=== PATIENT | female | born 1945 | race Caucasian/White ===

== ENCOUNTER → 2017-10-14 14:12 | Outpatient (CLI) | payer MEDICARE, SELFPAY ==
--- NOTE | 2017-10-14 14:20 | RAD_ITS ---
STUDY: X-RAY - ABDOMEN/PELVIS REASON FOR EXAM: Female, 72 years old. Left ureteral stone TECHNIQUE: Two AP supine views of the abdomen and pelvis. COMPARISON: None. FINDINGS: Normal visualized lung bases. There is an abundance of fecal material throughout the colon. There is no demonstrated free abdominal air. There are questionable small calcific densities in the renal shadows bilaterally. On the right measuring 8 mm and on the left, largest one measuring 6 mm. Normal soft tissue structures. There are diffuse degenerative changes of the visualized lumbar spine. RAD/Abdomen Single View IMPRESSION: Abundant fecal retention throughout the colon. Probable bilateral nephrolithiasis. Electronically Signed: Manuel Saleem DO at 10:44 EDT Tel , Service support ,
== END ==
PROVIDERS: Family Provider Internal Medicine; PCP Internal Medicine; Visit Provider Nurse Practitioner Adult Health
DX: N20.1 Calculus of ureter (principal)
CPT/HCPCS: 74018

== ENCOUNTER 2019-04-16 15:46 | Emergency (ER) | payer MEDICARE, SELFPAY ==
[2019-04-16 15:47] VITALS: BP 146/88; PULSE 84; RESP 18; TEMP 36.9; O2SAT 99; BMI 36.2
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
--- NOTE | 2019-04-16 16:18 | RAD_ITS ---
STUDY: X-RAY - RIGHT SHOULDER REASON FOR EXAM: Female, 73 years old. Pain TECHNIQUE: 3 view(s) of the shoulder. COMPARISON: None. FINDINGS: Evaluation is limited with no external rotation view of the shoulder are submitted. Views submitted demonstrate no definitive evidence of fracture or dislocation, however evaluation is incomplete. RAD/Shoulder min 2 Views IMPRESSION: Limited evaluation with no external rotation view submitted. Submitted views demonstrate no evidence of fracture or dislocation, however evaluation is incomplete. Recommend external rotation view for adequate assessment. Electronically Signed: Christian Causey, at 16:40 EDT Tel , Service support ,
== END 2019-04-16 16:46 | disposition home or self-care (01) ==
PROVIDERS: Emergency Provider Emergency Medicine; Family Provider Internal Medicine; PCP Internal Medicine
DX: M25.511 Pain in right shoulder (principal)
CPT/HCPCS: 73030; 99284

== ENCOUNTER 2019-05-31 10:02 | Day surgery (SDC) | payer MEDICARE, SELFPAY ==
[2019-05-31] VITALS (15 sets, daily range): BP systolic 95–116; BP diastolic 45–71; PULSE 66–90; RESP 16–18; TEMP 36.2–36.6; O2SAT 97–100; BMI 33.7
--- NOTE | 2019-05-31 07:43 | PCM.HP.BLA ---
History and Physical Date of Admission: 05/31/19 Beatriz Russell a 73 year old female who is a consultation requested by Maria Guadalupe Rabago APRN, for an opinion regarding SAMMY. My final recommendations will be communicated back to the requesting provider by way of shared Medical record. The patient has not been seen previously. The patient denies a family history of colon cancer. ? Component Latest Ref Rng & Units 02/15/2019 04/15/2019 Occult Blood, Stool Negative Negative Positive (A) ? Component Latest Ref Rng & Units 12/13/2016 02/04/2019 WBC 3.70 - 11.00 k/uL 4.92 5.69 RBC 3.90 - 5.20 m/uL 4.02 3.47 (L) Hemoglobin 11.5 - 15.5 g/dL 11.9 9.4 (L) Hematocrit 36.0 - 46.0 % 39.6 31.3 (L) MCV 80.0 - 100.0 fL 98.5 90.2 MCH 26.0 - 34.0 pG 29.6 27.1 MCHC 30.5 - 36.0 g/dL 30.1 (L) 30.0 (L) RDW-CV 11.5 - 15.0 % 13.5 14.6 Platelet Count 150 - 400 k/uL 202 227 MPV 9.0 - 12.7 fL 11.5 11.0 Absolute nRBC <0.01 k/uL 0.00 <0.01 ? Component Latest Ref Rng & Units 02/15/2019 Iron 41 - 186 ug/dL 48 TIBC 232 - 386 ug/dL 410 (H) Transferrin Saturation 15 - 57 % 12 (L) Ferritin 14.7 - 205.1 ng/mL 13.7 (L) ? The patient has a history of GERD and irritable bowel, as well a DM, hypothyroid, benign paroxysmal positional vertigo, depression and HLD. ? ? HPI: The patient presents today stating I just feel totally different than I did 6 months ago. I am tired all the time. Reports I knew it (the stool test) was positive because the sample was black and had slime in it. Having a bowel movement about every day and a half. She sometimes strains. Stools are solid formed, but not hard. ? Starting B12 injections now and taking iron. Reports that she takes ibuprofen after she falls. She will take 600 mg daily, when needed. ? Taking pantoprazole daily and denies any heartburn, indigestion or reflux. No stomach pain. No nausea. ? ? PAST MEDICAL HISTORY ? Benign paroxysmal positional vertigo 03/04/2012 ? Depressive disorder, not elsewhere classified 01/05/2007 ? Esophageal reflux ? ? Moderate sized HH on CT 2011 ? Goiter, unspecified ? ? Irritable bowel syndrome ? ? Mixed incontinence urge and stress (male)(female) 08/04/2008 ? Obesity, unspecified 01/05/2007 ? Osteoarthrosis, unspecified whether generalized or localized, unspecified site ? ? Other and unspecified hyperlipidemia 01/05/2007 ? Tinnitus 03/04/2012 ? Type II or unspecified type diabetes mellitus without mention of complication, not stated as uncontrolled ? ? Unspecified hemorrhoids without mention of complication ? ?? PAST SURGICAL HISTORY ? DELIVERY ONLY ? remote ? , ? PAST SURGICAL HISTORY OF ? ? 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 PAST SURGICAL HISTORY OF ? ? cystoscopy for renal stones ? REMOVAL GALLBLADDER ? ? Cholecystectomy open ? THYROIDECTOMY ? ? ? Partial thyroidectomy-for goiter no CA ? TOTAL KNEE REPLACEMENT ? ? Knee replacement, total left ? TOTAL KNEE REPLACEMENT ? ? Knee replacement, total right ? ? FAMILY HISTORY ? None Mother ? ? Lived to 89 years ? Macular Degen Mother ? ? Cataract Mother ? ? Cancer Father ? ? Lived to 89 years - ?bladder cancer ? Diabetes Sister ? ? Heart Maternal Grandfather ? ? Thyroid Sister ? ? hypothyroid ? Breast Cancer Maternal Aunt ? ? other (Retinitis Pigmentosa [Other]) Father ? ? Both Eyes ? Thyroid Mother ? ? ? CURRENT MEDICATIONS ? sitaGLIPtin (JANUVIA) 100 mg tablet Take 100 mg by mouth once daily. ? ? ? ferrous sulfate 325 mg (65 mg iron) tablet Take 1 tablet by mouth twice daily with meals. 60 tablet 2 ? docusate sodium (COLACE) 100 mg capsule Take 1 capsule by mouth twice daily as needed for Constipation (1-2 daily as needed for constipationw hile taking iron). 60 capsule 2 ? empagliflozin (JARDIANCE) 10 mg tablet Take 1 tablet by mouth daily with breakfast. (Patient not taking: Reported on 04/15/2019 ) 30 tablet 1 ? blood sugar diagnostic (BLOOD GLUCOSE TEST) test strip Test blood sugar(s) 2 times daily. Dx: Type 2 DM - Controlled E11.9 Insulin: No 100 Strip 11 ? glipiZIDE (GLUCOTROL XL) 10mg 24 hr tablet Take 2 tablets by mouth once daily. 60 tablet 5 ? atorvastatin (LIPITOR) 40 mg tablet Take 1 tablet by mouth every morning. 90 tablet 3 ? escitalopram oxalate (LEXAPRO) 10 mg tablet Take 1 tablet by mouth once daily. 90 tablet 3 ? levothyroxine (SYNTHROID) 50 mcg tablet Take 1 tablet by mouth once daily. 90 tablet 3 ? metFORMIN ER (GLUCOPHAGE XR) 500 mg 24 hr tablet Take 4 tablets by mouth once daily. 120 tablet 11 ? pantoprazole DR (PROTONIX) 40 mg tablet Take 1 tablet by mouth daily before breakfast. Take on empty stomach, 1/2 hr before meal. 90 tablet 3 ? escitalopram oxalate (LEXAPRO) 10 mg tablet Take 1 tablet by mouth once daily. 90 tablet 3 ? guaiFENesin (MUCINEX) 600 mg 12 hr tablet Take 1 tablet by mouth twice daily. (Patient not taking: Reported on 02/09/2019 ) ? ? ? melatonin 3 mg tablet Take 1 tablet by mouth daily at bedtime. Can increase to 2 tablets or 3 tablets if needed. (Patient not taking: Reported on 09/24/2018 ) 90 tablet 1 ? metFORMIN ER (GLUCOPHAGE XR) 500 mg 24 hr tablet Take 4 tablets by mouth once daily. 120 tablet 11 ? Lancets lancets Test blood sugar(s) 2 daily. Dx: E11.9 Insulin: No 100 Each 3 ? aspirin, enteric coated (ASPIRIN, ENTERIC COATED) 81 mg EC tablet Take 1 tablet by mouth once daily. (Considering starting; will stop if any GI adverse effects) ? ? ? COMPOUNDED PRESCRIPTION BLOOD PRESSURE CUFF FOR HOME USE. DX: R00.2, E11.65 1 Device 0 ? ? SOCIAL HISTORY: Patient is single. She has never smoked. Beatriz reports her alcohol use as never. ? ? REVIEW OF SYSTEMS: GENERAL: No weight loss, malaise or fevers HEENT: benign paroxymal positional vertigo RESPIRATORY: Negative for cough, hemoptysis, wheezing, COPD, dyspnea or shortness of breath CARDIOVASCULAR: HLD. No chest pain GI: As noted above STROKE PROGRAM COORDINATOR: Negative for abnormal vaginal bleeding, abnormal vaginal discharge. MUSCULOSKELETAL: Negative for joint pain or swelling, back pain or muscle pain. PSYCH: Positive for depression. HEMATOLOGY/LYMPHOLOGY Negative for prolonged bleeding, bruising easily or swollen nodes ENDOCRINE: Hypothyroid and Type 2 DM NEURO: No history of headaches, syncope, paralysis, seizures or tremors All other reviewed and negative other than HPI. PHYSICAL EXAMINATION: Blood pressure 111/70, pulse 116, height 149.9 cm (4' 11), weight 78.9 kg (174 lb). General Appearance: Well appearing, alert, in no acute distress, well-hydrated, well nourished. Skin: Skin color, texture, turgor normal, no suspicious rashes or lesions. Head: Normocephalic, no masses, lesions or abnormalities. Eyes: Anicteric sclera. Oropharynx: Dentures and Lips, mucosa, and tongue normal, oropharynx normal. Neck: Supple, no adenopathy; goiter. Lungs: lungs clear to auscultation. No wheezing, rhonchi, rales. Heart: RRR without murmur. Abdomen: Abdomen soft, non-tender. Bowel sounds normal. No masses, organomegaly. Extremities: No deformities, edema. Peripheral Pulses: Normal. Neurologic: Gait normal. Sensation grossly intact. ? ?Impression: iron deficiency anemia 2)melena prior to iron supplement ? ? Plan: The patient will be scheduled for an upper endoscopy as well as a colonoscopy. Preparation for the procedures, using GoLytely as the laxative, have been explained in detail. The risks, benefits, anticipated outcomes and possible complications were mentioned, including including failure to complete the endoscopy and perforation. I explained the procedure in understandable terms and the patient was given printed material concerning the planned procedure. The patient had the opportunity to ask questions concerning the planned procedure. The patient freely consents to the planned procedure. ИВАН documented in this encounter. I spent 30 minutes in the visit, with more than 50% of the total [id number] time of the visit in counseling / coordination of care. ? Stephanie Manuel RN LECTURER IN MARKETING.RECREATIONAL DIRECTOR
[2019-05-31] MEDS: Lactated Ringers 1,000 ML 75 ML IV (07:45)
[2019-05-31 11:36] LABS: Bedside Glucose 160 mg/dL (70-110)
--- NOTE | 2019-05-31 12:44 | EKG12_ITS ---
Test Reason : ARRYTH Blood Pressure : / mmHG Vent. Rate : 077 BPM Atrial Rate : 077 BPM P-R Int : 216 ms QRS Dur : 078 ms QT Int : 412 ms P-R-T Axes : 043 -47 056 degrees QTc Int : 466 ms Sinus rhythm with 1st degree A-V block Left axis deviation /LAHB Abnormal ECG When compared with ECG of 18-JAN-2002 08:32, UT interval has increased QRS axis Shifted left Minimal criteria for Anterior infarct are no longer Present Confirmed by HARIS BOLANOS ([id number]), book editor KE HOLLAND ([id number]) on 06/06/2019 10:41:21 AM Referred By: Cat Mayer Confirmed By:HARIS BOLANOS
--- NOTE | 2019-05-31 13:00 | EGD_PTH ---
PATIENT: STEVE VIEIRA LOC: EN U#:[id number] AGE/SX: 73/F ROOM: RE05/31/[address]: Dr. Cat Mayer MD : 1945 BED: DIS: 05/31/2019 SPEC #: [id number] RECD: 05/31/19 13:40 STATUS: JEANINE RECecy #: [id number] VONDA: 05/31/19 13:[address]: Cat Mayer DEPT: SURGICAL PATHOLOGY RECD BY: Roly Rocha ENTERED: 05/31/19 13:57 SP TYPE: EGD BIOPSY OTHR DR: Dr. Pavithra Presley MD Tissues: Gastric mucous membrane Procedures: Surgery Specimen Level IV HEADER OPERATION: Colonoscopy, EGD ([facility] [place]) PRE-OP DIAGNOSIS: Iron deficiency anemia; melena TISSUE SUBMITTED: Antrum for H. pylori and path MICROSCOPIC DIAGNOSIS Gastric antrum, biopsy: Mild chronic gastritis. See comment. AM:fredy 06/01/19 COMMENT The results of immunohistochemistry for Helicobacter pylori will be reported separately ([id number]). MICROSCOPIC DESCRIPTION Slides are reviewed. GROSS DESCRIPTION Received in fixative is one container labeled with the patient's name and designated antrum. The specimen consists of one irregular fragment of light delaney soft tissue that measures 0.3 x 0.2 x 0.1 cm. The specimen is totally submitted in one cassette. / SJ:fredy 05/31/19 TC:3 CPT: 54072
--- NOTE | 2019-05-31 13:00 | IMM_PTH ---
PATIENT: STEVE VIEIRA LOC: EN U#:[id number] AGE/SX: 73/F ROOM: RE05/31/[address]: Dr. Cat Mayer MD : 1945 BED: DIS: 05/31/2019 SPEC #: [id number] RECD: 05/31/19 14:31 STATUS: JEANINE REQ #: [id number] VONDA: 05/31/19 13:[address]: Cat Mayer DEPT: IMMUNOHISTOCHEMISTRY RECD BY: Agustina Moreno ENTERED: 05/31/19 14:31 SP TYPE: IMMUNO OTHR DR: Dr. Pavithra Presley MD Tissues: Stomach, NOS Procedures: H Pylori (initial) PHYSICIAN & INSTITUTION [place] [id number] SPECIMEN INFORMATION: Tissue Source: Antrum Clinical Info: Iron deficiency anemia; melena Specimen Number: [id number] CPT code: 85307 METHODOLOGY: Deparaffinized sections of prefer/formalin-fixed tissue or PAP/DQ stained slides are incubated with monoclonal/polyclonal antibodies/oligonucleotide probes. Localization is made via biotin free immunoperoxidase method. Appropriate controls are performed and reacted as expected. Results on target cell population are indicated in the following table: RESULTS: ANTIBODY / CLONE RESULT H Pylori (polyclonal) negative These tests were developed and their performance characteristics determined by [facility]. They may not have been cleared or approved by the U.S. Food and Drug Administration. The FDA has determined that such clearance or approval is not necessary. INTERPRETATION: Antrum biopsy: Negative for Helicobacter pylori organisms. AM:fredy 06/02/19
--- NOTE | 2019-05-31 13:02 | OP.EGD_ITS ---
Patient Name: Beatrzi Russell Procedure Date: 05/31/2019 12:13 PM Date of : 1945 Age: 73 Procedure: Upper GI endoscopy Indications: Unexplained iron deficiency anemia Providers: Cat Mayer MD Referring MD: Cat Mayer MD Medicines: See the Anesthesia note for documentation of the administered medications Patient Profile: Refer to note in patient chart for documentation of history and physical. Complications: No immediate complications. Procedure: Pre-Anesthesia Assessment: - see anesthesia note After obtaining informed consent, the endoscope was passed under direct vision. Throughout the procedure, the patient's blood pressure, pulse, and oxygen saturations were monitored continuously. The gastroscope was introduced through the mouth, and advanced to the second part of duodenum. The upper GI endoscopy was accomplished without difficulty. The patient tolerated the procedure well. Scope In: 12:32:19 PM Scope Out: 12:36:05 PM Total Procedure Duration Time 0 hours 3 minutes 46 seconds Findings: The first portion of the duodenum and second portion of the duodenum were normal. Striped mildly erythematous mucosa without bleeding was found in the gastric antrum. Biopsies were taken with a cold forceps for histology. Estimated blood loss was minimal. A small hiatal hernia was present. Impression: - Normal first portion of the duodenum and second portion of the duodenum. - Erythematous mucosa in the antrum. Biopsied. - Small hiatal hernia. Recommendation: - Discharge patient to home (ambulatory). - Resume previous diet. - Continue present medications. - Await pathology results. - My office will telephone with pathology results in 1-2 weeks Procedure Code(s): --- Professional --- 49482, Esophagogastroduodenoscopy, flexible, transoral; with biopsy, single or multiple Diagnosis Code(s): --- Professional --- K31.89, Other diseases of stomach and duodenum K44.9, Diaphragmatic hernia without obstruction or gangrene D50.9, Iron deficiency anemia, unspecified CPT copyright 2017 [employer]. All rights reserved. The codes documented in this report are preliminary and upon slide attendant review may be revised to meet current compliance requirements. MD Cat Chaudhary MD 05/31/2019 1:02:11 PM This report has been signed electronically. Number of Addenda: 0 Note Initiated On: 05/31/2019 12:13 PM
--- NOTE | 2019-05-31 13:05 | OP.COLON_ITS ---
Patient Name: Beatriz Russell Procedure Date: 05/31/2019 12:37 PM Date of : 1945 Age: 73 Procedure: Colonoscopy Indications: Melena, Unexplained iron deficiency anemia Providers: Cat Mayer MD Referring MD: Cat Mayer MD Medicines: See the Anesthesia note for documentation of the administered medications Patient Profile: Refer to note in patient chart for documentation of history and physical. Last Colonoscopy: date unknown. Complications: No immediate complications. Procedure: Pre-Anesthesia Assessment: - see anesthesia note After I obtained informed consent, the scope was passed under direct vision. Throughout the procedure, the patient's blood pressure, pulse, and oxygen saturations were monitored continuously. The Colonoscope was introduced through the anus and advanced to the cecum, identified by the appendiceal orifice, ileocecal valve and palpation. The colonoscopy was performed without difficulty. The patient tolerated the procedure well. The quality of the bowel preparation was adequate. Scope In: 12:41:16 PM Scope Withdrawal Time 0 hours 7 minutes 16 seconds Scope Out: 12:57:57 PM Total Procedure Duration Time 0 hours 16 minutes 41 seconds Findings: The perianal and digital rectal examinations were normal. Non-bleeding external and internal hemorrhoids were found. Impression: - Non-bleeding external and internal hemorrhoids. - No specimens collected. Recommendation: - Repeat colonoscopy in 10 years for screening purposes. - Return to primary care physician PRN. - Continue present medications. Procedure Code(s): --- Professional --- 65779, Colonoscopy, flexible; diagnostic, including collection of specimen(s) by brushing or washing, when performed (separate procedure) Diagnosis Code(s): --- Professional --- K64.8, Other hemorrhoids K92.1, Melena (includes Hematochezia) D50.9, Iron deficiency anemia, unspecified CPT copyright 2017 [place] [employer]. All rights reserved. The codes documented in this report are preliminary and upon marketing support assistant review may be revised to meet current compliance requirements. MD Cat Chaudhary MD 05/31/2019 1:04:56 PM This report has been signed electronically. Number of Addenda: 0 Note Initiated On: 05/31/2019 12:37 PM
[2019-05-31 13:33] LABS: Hematocrit 34.6 % (37-47); Hemoglobin 10.7 g/dL (12.0-15.0); Mean Corp Hgb Conc 30.9 g/dL (32-36); Mean Corpuscular Hgb 28.8 pg (27.0-32.0); Mean Platelet Vol. 10.5 fl (6.2-12.0); Platelet Count 149 K/mm3 (150-450); RBC Distribution Width CV 16.1 % (11.6-14.6); RBC Distribution Width SD 55.3 fl (35.1-43.9); Red Blood Count 3.72 M/mm3 (4.2-5.4); White Blood Count 4.3 K/mm3 (4.4-11.0)
[2019-05-31 13:46] LABS: Anion Gap 10 (5-15); BUN 24 mg/dL (7-18); BUN/Creat Ratio 28.1 RATIO (10-20); Calcium,Total 8.8 mg/dL (8.5-10.1); Chloride 109 mmol/L (98-107); Creatinine, Serum 0.86 mg/dL (0.55-1.02); EST Glomerular Filtration Rate 69 mL/min (>60); Est Glom Filt Rate - Afr Amer 83 mL/min (>60); Glucose 119 mg/dL (74-106); Potassium 3.8 mmol/L (3.5-5.1); Sodium Level 141 mmol/L (136-145)
[2019-05-31 13:54] LABS: Magnesium 2.1 mg/dL (1.6-2.6)
== END 2019-05-31 14:42 | disposition home or self-care (01) ==
LOC: EN 10:05 → AC 10:17
PROVIDERS: Anesthesiology; Family Provider Internal Medicine; PCP Internal Medicine; Referring Provider Surgery; Visit Provider Surgery
PROC: 0DJD8ZZ Inspection of Lower Intestinal Tract, Via Natural or Artificial Opening Endoscopic (ICD-10-PCS; CPT 45378; principal; 2019-05-31 12:55)
DX: K29.50 Unspecified chronic gastritis without bleeding (principal); K44.9 Diaphragmatic hernia without obstruction or gangrene; K64.9 Unspecified hemorrhoids; D50.9 Iron deficiency anemia, unspecified; Z79.899 Other long term (current) drug therapy; K21.9 Gastro-esophageal reflux disease without esophagitis; K58.9 Irritable bowel syndrome, unspecified; E11.9 Type 2 diabetes mellitus without complications; E03.9 Hypothyroidism, unspecified; E66.9 Obesity, unspecified; H81.10 Benign paroxysmal vertigo, unspecified ear; F32.9 Major depressive disorder, single episode, unspecified; E78.5 Hyperlipidemia, unspecified; N39.46 Mixed incontinence; Z79.84 Long term (current) use of oral hypoglycemic drugs; Z79.82 Long term (current) use of aspirin
CPT/HCPCS: 43239; 45378; 36415; 80048; 82962; 83735; 84484; 85027; 88305; 88342; 93005; J7120

== ENCOUNTER 2022-08-07 13:10 | Emergency (ER) | payer MEDICARE, SELFPAY ==
[2022-08-07 13:10] VITALS: BP 153/91; PULSE 91; RESP 16; TEMP 36.2; O2SAT 97; BMI 29.2
--- NOTE | 2022-08-07 14:50 | ED.RN ---
PT NOT IN WAITING ROOM, UNABLE TO LOCATE IN DEPARTMENT. PT HAD PREVIOUS STATED SHE WAS GOING TO WALK HOME, I JUST LIVE A COUPLE BLOCKS AWAY. PT STATED SHE DID NOT WANT TO BE EVALUATED IN ED, I'M FINE. PT AMBULATING IN TRIAGE AREA WITHOUT DIFFICULTY. PT HAD AGREED TO WAIT AND BE EVALUATED BY ED MD AFTER MUCH ENCOURAGEMENT BY THIS RN.
== END 2022-08-07 14:30 | disposition left against medical advice (07) ==
LOC: ED 14:56
PROVIDERS: PCP Internal Medicine
DX: Z53.21 Procedure and treatment not carried out due to patient leaving prior to being seen by health care provider (principal)

== ENCOUNTER 2022-09-21 14:23 | Emergency (ER) | payer MEDICARE, SELFPAY ==
[2022-09-21 14:24] VITALS: BP 118/62; PULSE 88; RESP 18; TEMP 36.6; O2SAT 99; BMI 30.1
[2022-09-21 14:33] VITALS: O2SAT 98
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
[2022-09-21] MEDS: Acetaminophen 500 MG Tablet 1000 MG PO (14:53)
[2022-09-21] MEDS: Diphth,Pertuss(Acell),Tet Vac 0.5 ML Vial IM (14:54)
[2022-09-21 17:26] VITALS: RESP 18
== END 2022-09-21 17:27 | disposition home or self-care (01) ==
PROVIDERS: Emergency Provider Emergency Medicine; PCP Internal Medicine; Visit Provider Emergency Medicine
DX: S00.83XA Contusion of other part of head, initial encounter (principal); S00.31XA Abrasion of nose, initial encounter; W18.39XA Other fall on same level, initial encounter; Y93.01 Activity, walking, marching and hiking; Y99.8 Other external cause status; Y92.512 Supermarket, store or market as the place of occurrence of the external cause
CPT/HCPCS: 99284; 96372; 70450; 90715

== ENCOUNTER 2022-09-21 18:38 | Emergency (ER) | payer MEDICARE, SELFPAY ==
[2022-09-21 18:39] VITALS: BP 127/67; PULSE 115; RESP 18; TEMP 35.5; O2SAT 98; BMI 29.9
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
--- NOTE | 2022-09-21 19:01 | MRI_ITS ---
STUDY: MRI BRAIN WITHOUT CONTRAST REASON FOR EXAM: Female, 77 years old[address] head injury. Ct brain was inconclusive. TECHNIQUE: Standardized multiplanar fat and water weighted pulse sequences were obtained. COMPARISON: CT brain from today. FINDINGS: Subcutaneous hematoma right forehead. There is mild cerebral atrophy with widening of the extra-axial spaces and ventricular dilatation. There are multiple white matter hyperintensities, distributed throughout the deep white matter tracts of the cerebral hemispheres, consistent with moderate chronic white matter ischemic changes. There is no evidence for recent intracranial ischemia or other cause of cytotoxic edema on diffusion weighted imaging (DWI). Normal bilateral basal ganglia. Normal thalami. There is no extra-axial fluid accumulation. Normal flow voids within the major intracranial circulation suggesting patency by spin echo criteria. Normal sella turcica, pituitary gland, infundibular stalk, optic chiasm and hypothalamus. Normal tectal plate and pineal gland. Normal midbrain, leatha and medulla. Normal cerebellum. Normal basal cisterns. Normal bilateral temporal bones. Normal bilateral internal auditory canals. No demonstrated orbital abnormality, within the constraints of a routine brain study. Normal visualized paranasal sinuses. Normal calvarium and skull base. Normal visualized soft tissue structures. Normal visualized upper cervical spine. MRI/Brain without Contrast IMPRESSION: Normal unenhanced MRI of the brain. Suspected Right frontal hemorrhagic contusion on CT is not confirmed. Electronically Signed: Christopher Stroud MD at 22:09 EDT ,
[2022-09-21] MEDS: Acetaminophen 500 MG Tablet PO (19:07)
[2022-09-21 22:26] VITALS: RESP 18
== END 2022-09-21 22:27 | disposition home or self-care (01) ==
PROVIDERS: Emergency Provider Emergency Medicine; PCP Internal Medicine; Visit Provider Emergency Medicine
DX: S00.81XA Abrasion of other part of head, initial encounter (principal); S00.83XA Contusion of other part of head, initial encounter; W18.39XA Other fall on same level, initial encounter; Y93.01 Activity, walking, marching and hiking; Y99.8 Other external cause status; Y92.512 Supermarket, store or market as the place of occurrence of the external cause
CPT/HCPCS: 70450; 70551; 90715; 96372; 99283; 99284

== ENCOUNTER 2023-08-09 11:13 | Inpatient (IN) | payer MEDICARE, SELFPAY ==
[2023-08-09] VITALS (9 sets, daily range): BP systolic 91–124; BP diastolic 47–77; PULSE 76–97; RESP 16–18; TEMP 36–36.9; O2SAT 96–99; BMI 26.4; BMI 26.2
--- NOTE | 2023-08-09 11:50 | CT_ITS ---
EXAM: CT HEAD WITHOUT INTRAVENOUS CONTRAST CLINICAL INDICATION: head injury TECHNIQUE: Multiple axial images were obtained of the head without intravenous contrast. This CT exam was performed using one or more of the following dose reduction techniques: automated exposure control, adjustment of the mA and/or kV according to patient size, and/or use of iterative reconstruction technique. RADIATION DOSE: CTDIvol = 44.99 mGy, DLP = 812.98 mGy-cm COMPARISON: CT head without contrast 09/21/2022. FINDINGS: BRAIN AND EXTRA-AXIAL SPACES: Hypodensities in the white matter of both cerebral hemispheres are chronic white matter ischemic changes. No intra- or extra-axial hemorrhage. No intracranial mass or mass effect. Posterior fossa structures are unremarkable. Ventricles are appropriate for age. No hydrocephalus. Basal cisterns are patent. BONES/JOINTS: Unremarkable. No discrete lytic or blastic abnormalities. SINUSES: Unremarkable as visualized. Clear. MASTOID AIR CELLS: Unremarkable. Clear. ORBITS: Visualized globes, extraocular muscles, optic nerves and retrobulbar fat appear unremarkable. CT/Brain/Head without Contrast IMPRESSION: 1. No CT evidence of intracranial bleeding, acute ischemic infarct or acute intracranial abnormality. 2. Chronic white matter changes in both cerebral hemispheres. 3. Interval resolution of small right frontal skull soft tissue scalp hematoma or compared to 09/21/2022. Electronically Signed: Hai Cardenas MD at 13:03 EST ,
--- NOTE | 2023-08-09 11:51 | EDS_ITS ---
HPI <PANKAJ Harris - Last Filed: 08/09/23 14:00> History of Present Illness Chief Complaint: Weakness Narrative Narrative: Patient is an 78-year-old female with history of diabetes Hypothyroidism however states is not taking her medication as prescribed presenting to the emergency department for failure to thrive. Patient was brought in by ambulance, on the ambulance form, does show that the patient has poor living conditions. I spoke with the patient, patient states for the last 6 days, she has been feeling wonky . Patient states that she is just confused, she is having trouble getting around. Patient looks disheveled, patient is wet, states that she does not change her diaper like she is supposed to. Patient denies any fever or chills. Patient states that she is hungry and thirsty. [facility] <PANKAJ Harris - Last Filed: 08/09/23 14:00> [facility] Medical History Head injury Home Medications glipizide 5 mg tablet 20 mg PO DINNER 06/07/14 [History Last Taken Unknown] levothyroxine 50 mcg tablet 50 mcg PO DAILY 06/07/14 [History Last Taken Unknown] metformin 500 mg tablet,extended release 24 hr 2,000 mg PO BREAKFAST 06/07/14 [History Last Taken Unknown] pantoprazole 40 mg tablet,delayed release 40 mg PO BREAKFAST 06/07/14 [History Last Taken Unknown] aspirin 81 mg tablet,delayed release 81 mg PO DAILY@0800 05/28/19 [History Last Taken Unknown] atorvastatin 40 mg tablet 40 mg PO QHS 05/28/19 [History Last Taken Unknown] empagliflozin 10 mg tablet 10 mg PO DAILY 05/28/19 [History Last Taken Unknown] escitalopram oxalate 10 mg tablet 10 mg PO DAILY 05/28/19 [History Last Taken Unknown] ferrous gluconate 236 mg (27 mg iron) tablet 65 mg PO BID 05/28/19 [History Last Taken Unknown] Allergy/AdvReac Type Severity Reaction Status Date / Time venlafaxine HCl Allergy Rash Verified 08/09/23 11:14 [From Effexor] meclizine AdvReac Other Verified 08/09/23 11:14 Surgical History H/O: section History of cholecystectomy History of knee joint replacement Social History Smoking Status: Never smoker ROS <PANKAJ Harris - Last Filed: 08/09/23 14:00> ROS ED ROS Narrative Constitutional: No fever, no chills. Positive generalized weakness HEENT: No sore throat. No neck pain. No loss of vision. No rhinorrhea. Positive for excessive thirst Cardiovascular: No chest pain. No palpitations. No pedal edema. Respiratory: No cough, no shortness of breath. Abdominal: No abdominal pain. No nausea. No vomiting. Genitourinary: No dysuria. No hematuria. Musculoskeletal: No myalgias. No arthralgias. Neurologic: No headaches. No dizziness. No lightheadedness. Skin: No rash. No change in color. Psychiatric: No depression. No anxiety. EXAM <PANKAJ Harris - Last Filed: 08/09/23 14:00> Physical Exam Narrative Exam Narrative: On my initial evaluation, the patient is poorly unkempt, patient smells of stale urine. Patient is alert and orient x 3. Patient states she is extremely thirsty and hungry. She does state that the house that she is living in is not very clean. She does know that she does not change her briefs often enough, she knows that she is wet. Patient does have some strangers coming and going through her house. Patient does have an abrasion to the left forehead however states that she does not remember falling. Afebrile. Vital signs noted. HEENT: Normocephalic. Atraumatic. PERRL, EOMI. Neck soft and supple. No point tenderness or step off. Pupils are equal round reactive to light. Patient does have abrasion to the forehead. Cardiovascular: Regular rate and rhythm. No murmurs, rubs, or gallops appreciated. Respiratory: No tachypnea. Lungs clear to auscultation bilaterally. Gastrointestinal: Abdomen soft, nontender, with normoactive bowel sounds. No rebound or guarding. Neurological: Awake. Alert. Nonfocal, nonlateralizing. Skin: No rash. Normal color. No pallor. Musculoskeletal: No pedal edema. Full range of motion extremities. Const Vital Signs: 08/09/23 11:14 08/09/23 11:16 08/09/23 13:36 Temperature 96.8 F L Temperature Source Temporal Pulse Rate 89 76 Respiratory Rate 18 16 Respiratory Effort Normal Respiratory Pattern Normal Blood Pressure 117/64 115/65 Blood Pressure Mean 81 81 Pulse Ox 96 99 Oxygen Delivery Method Room Air Room Air Positive unkempt General Appearance ED: unkempt Psych Appearance: unkempt <Dr. Santos Mckeon MD - Last Filed: 08/09/23 13:32> Physical Exam Const Vital Signs: 08/09/23 11:14 08/09/23 11:16 08/09/23 13:36 Temperature 96.8 F L Temperature Source Temporal Pulse Rate 89 76 Respiratory Rate 18 16 Respiratory Effort Normal Respiratory Pattern Normal Blood Pressure 117/64 115/65 Blood Pressure Mean 81 81 Pulse Ox 96 99 Oxygen Delivery Method Room Air Room Air MDM <PANKAJ Harris - Last Filed: 08/09/23 14:00> MDM Lab Data Labs: Laboratory Results - last 24 hr 08/09/23 08/09/23 11:25 12:05 WBC 8.7 RBC 3.77 L Hgb 8.6 L Hct 30.4 L MCV 80.6 L MCH 22.8 L MCHC 28.3 L RDW Std Deviation 51.1 H RDW Coeff of Nicholas 18.1 H Plt Count 221 MPV 11.7 Immature Gran % (Auto) 0.800 Neut % (Auto) 76.1 H Lymph % (Auto) 14.9 L [place] % (Auto) 6.6 Eos % (Auto) 0.9 Baso % (Auto) 0.7 Absolute Neuts (auto) 6.6 Absolute Lymphs (auto) 1.29 Nucleated RBC % 0 Sodium 133 L Potassium 4.0 Chloride 97 L Carbon Dioxide 25.0 Anion Gap 11 BUN 17 Creatinine 0.76 Est GFR (MDRD) Af Amer 94 Est GFR (MDRD) Non-Af 78 BUN/Creatinine Ratio 22.3 H Glucose 386 H Calcium 9.3 Total Bilirubin 0.90 AST 53 H ALT 42 Alkaline Phosphatase 186 H Total Creatine Kinase 42 Total Protein 7.4 Albumin 3.3 Globulin 4.1 Albumin/Globulin Ratio 0.8 L TSH 4.30 H Urine Color Yellow Urine Clarity Clear Urine pH 5.0 Ur Specific [place] 1.015 Urine Protein 15 H Urine Glucose (UA) 1000 H Urine Ketones 150 A* Urine Occult Blood 10 H Urine Nitrite Negative Urine Bilirubin Negative Urine Urobilinogen Normal Ur Leukocyte Esterase Negative Urine RBC 0 SEEN Urine WBC 0 SEEN Ur Squamous Epith Cells 0 SEEN Urine Bacteria 0 SEEN Urine Mucus 0 SEEN Radiography Diagnostic Testing: Clinical Impression(s) from Imaging Studies Brain CT 08/09/23 11:50 IMPRESSION: 1. No CT evidence of intracranial bleeding, acute ischemic infarct or acute intracranial abnormality. 2. Chronic white matter changes in both cerebral hemispheres. 3. Interval resolution of small right frontal skull soft tissue scalp hematoma or compared to 09/21/2022. Electronically Signed: Hai Cardenas MD at 13:03 EST , Chest X-Ray 08/09/23 12:30 IMPRESSION: No radiographic evidence of acute cardiopulmonary disease. Electronically Signed: Hai Cardenas MD at 12:41 EST , EKG EKG shows normal sinus rhythm: Attestation: I personally reviewed and interpreted this EKG as follows: Interpretation: Sinus Rhythm Comments: Sinus rhythm, rate of 72 bpm, NV 190 ms, QRS duration 78 ms, no acute ST elevation, no acute infarct noted Treatment and Re-Evaluation :: Patient appears to be unkempt, vital signs are stable, patient appears to be in no respiratory distress. Patient presents to the emergency department for failure to thrive, I do believe that social work should be included in her care. Differential diagnosis includes failure to thrive, multiple falls, UTI, elevated blood sugar. Upon my initial evaluation, the patient might benefit from admission for social standpoint however the patient does smell of strong urine, patient's blood sugar is elevated. Patient is slightly confused however she does answer questions appropriately. Patient received a chest x-ray as well as CT scan of the brain to rule out any intracranial bleeding, pneumonia. Basic laboratory values looking for any leukocytosis, anemia, electrolyte abnormality, dehydration. Patient received IV fluids. She was given 1 glass of water. She will be reevaluated. The radiology exams ordered for this patient will be read by the emergency department attending. From these reads a plan of care will be put into place. Patient's brain CT shows no evidence of any intracranial bleeding or acute process. Patient's chest x-ray showed no radiographic evidence of acute cardiopulmonary disease. Patient's laboratory values showed some anemia with a hemoglobin 8.6, the last hemoglobin completed was in May 2019 when it was 10.7, patient looks to be chronically anemic. Patient's sodium was 133 slightly low. Creatinine was unremarkable. Patient's blood glucose was 386, this is secondary to patient not taking her medication. Alkaline phosphatase was elevated 186, TSH was 4.30, this again is because she is not taking her medication. Urinalysis was positive for ketones however negative for any infection. At this time, secondary to patient's poor living conditions, inability to care for self, the patient unkempt appearance, I do believe the patient would benefit from admission to the hospital and social work admit. I will speak to the hospitalist. Patient stable for admission. <Dr. Santos Mckeon MD - Last Filed: 08/09/23 13:32> [facility] MDM Narrative Medical decision making narrative: I have personally performed a face to face assessment of the patient and have reviewed the SHADIA Note. I performed a substantive portion of the visit including all aspects of the following. My rob findings include: History is 78-year-old female who is alone at home. Son: Recent squad for well check Arrived home. And her conditions were very poor. The concern is she is not able to take care of herself, has not been eating well and has not been taking her medications as prescribed. States that she has had some nausea and vomiting. Patient does have a history of diabetes. Exam is [78-year-old female vital signs are stable. Afebrile. She does not look septic toxic. HEENT exam dry mucous membranes. Pupils round reactive light. No trauma. Neck nontender. Lungs clear to auscultation. Heart regular rhythm no murmur rate about 90. Chest wall nontender. Abdomen soft nontender. Back nontender. Moving all 4 extremities. Her nails are overgrown and poorly cared for. She has dirt and hair on her feet from the ground. Neurologically she is awake and alert. Answer questions following commands. Moving all 4 extremities. She has pale skin consistent with anemia.] Medical Decision Making [elderly female with acute on chronic anemia with mild dehydration and elevated blood sugar with a history of diabetes. She will need admitted for failure to thrive. She is receiving IV fluids here. Will speak to the hospitalist about admission.] Other additions or changes: [None] History & Record Review Discussion w/independent historian: Patient Additional record(s) reviewed:: Prior inpatient record, Prior outpatient record, Prior ED visit, Prior labs and No prior records Lab Data Attestation: I reviewed the patient's lab results. Lab results narrative: CBC white count 8.7. H&H 8.6 and 30. Platelets 221. Sodium 133. Gap 11. BUN/creatinine 17 and 0.7. Glucose 386. Liver enzymes alk phos 186. TSH is elevated at 4.3. UA no infection but ketones. UA negative. Ketones. Consistent with dehydration. Chest x-ray chronic. CT brain chronic changes. Labs: Laboratory Results - last 24 hr 08/09/23 08/09/23 11:25 12:05 WBC 8.7 RBC 3.77 L Hgb 8.6 L Hct 30.4 L MCV 80.6 L MCH 22.8 L MCHC 28.3 L RDW Std Deviation 51.1 H RDW Coeff of Nicholas 18.1 H Plt Count 221 MPV 11.7 Immature Gran % (Auto) 0.800 Neut % (Auto) 76.1 H Lymph % (Auto) 14.9 L [place] % (Auto) 6.6 Eos % (Auto) 0.9 Baso % (Auto) 0.7 Absolute Neuts (auto) 6.6 Absolute Lymphs (auto) 1.29 Nucleated RBC % 0 Sodium 133 L Potassium 4.0 Chloride 97 L Carbon Dioxide 25.0 Anion Gap 11 BUN 17 Creatinine 0.76 Est GFR (MDRD) Af Amer 94 Est GFR (MDRD) Non-Af 78 BUN/Creatinine Ratio 22.3 H Glucose 386 H Calcium 9.3 Total Bilirubin 0.90 AST 53 H ALT 42 Alkaline Phosphatase 186 H Total Creatine Kinase 42 Total Protein 7.4 Albumin 3.3 Globulin 4.1 Albumin/Globulin Ratio 0.8 L TSH 4.30 H Urine Color Yellow Urine Clarity Clear Urine pH 5.0 Ur Specific [place] 1.015 Urine Protein 15 H Urine Glucose (UA) 1000 H Urine Ketones 150 A* Urine Occult Blood 10 H Urine Nitrite Negative Urine Bilirubin Negative Urine Urobilinogen Normal Ur Leukocyte Esterase Negative Urine RBC 0 SEEN Urine WBC 0 SEEN Ur Squamous Epith Cells 0 SEEN Urine Bacteria 0 SEEN Urine Mucus 0 SEEN Radiography Diagnostic Testing: Clinical Impression(s) from Imaging Studies Brain CT 08/09/23 11:50 IMPRESSION: 1. No CT evidence of intracranial bleeding, acute ischemic infarct or acute intracranial abnormality. 2. Chronic white matter changes in both cerebral hemispheres. 3. Interval resolution of small right frontal skull soft tissue scalp hematoma or compared to 09/21/2022. Electronically Signed: Hai Cardenas MD at 13:03 EST , Chest X-Ray 08/09/23 12:30 IMPRESSION: No radiographic evidence of acute cardiopulmonary disease. Electronically Signed: Hai Cardenas MD at 12:41 EST , Discharge Plan Dx/Rx/DC Orders Clinical Impression: Acute dehydration, Hyperglycemia due to diabetes mellitus, Adult failure to thrive, Chronic anemia Disposition Disposition: [facility]
[2023-08-09 12:13] LABS: Bacteria 0 SEEN /hpf (None Seen); Mucous, Urine 0 SEEN /hpf (<or=2+); Red Blood Cells-Urine 0 SEEN /hpf (0-5); Squamous Epithelial Cells - UA 0 SEEN /hpf (5-10); White Blood Cells 0 SEEN /hpf (0-5)
[2023-08-09 12:15] LABS: Absolute Lymphocyte Count 1.29 X10^3/uL (0.83-4.51); Absolute Neutrophil Count 6.6 X10^3/uL (2.0-7.7); Basophil# 0.06 X10^3/uL; Basophil% 0.7 % (0-1); Eosinophil# 0.08 X10^3/uL; Eosinophils% 0.9 % (0-5); Hematocrit 30.4 % (37-47); Hemoglobin 8.6 g/dL (12.0-15.0); Lymphocyte # 1.29 X10^3/ul (0.83-4.51); Lymphocyte % 14.9 % (19-41); Mean Corp Hgb Conc 28.3 g/dL (32-36); Mean Corpuscular Hgb 22.8 pg (27.0-32.0); Mean Corpuscular Volume 80.6 fL (81-99); Mean Platelet Vol. 11.7 fl (6.2-12.0); Monocyte# 0.57 X10^3/uL; Monocyte% 6.6 % (0-10); NRBC Flagged by Analyzer 0 % (0-5); Neutrophil # 6.59 X10^3/uL (2.7-7.7); Neutrophil % 76.1 % (47-70); Platelet Count 221 K/mm3 (150-450); RBC Distribution Width CV 18.1 % (11.6-14.6); RBC Distribution Width SD 51.1 fl (35.1-43.9); Red Blood Count 3.77 M/mm3 (4.2-5.4); White Blood Count 8.7 K/mm3 (4.4-11.0)
[2023-08-09] MEDS: 0.9% Normal Saline (1000mL) 1,000 ML 1000 ML IV (12:20)
--- OUTSIDE RECORDS SUMMARY | 2023-08-09 12:25 | XMS RPT_ITS | CCD ---
Author Name Unknown Address [address] [facility] [address] [place] [address] Organization [facility] Care Team Providers Care Customer Service Supervisor Name Role Phone Peter Presley MD Primary Care Provider [facility], Keti Unavailable Peter Presley MD Primary Care Provider Peter Presley MD Primary Care Provider [facility]ly [facility], Melony Unavailable TALAMPAS, PETER D Primary Care Unavailable TALAMPAS, PETER D Primary Care Unavailable TALAMPAS, PETER D Referring Unavailable TALAMPAS, PETER D Attending Unavailable TALAMPAS, PETER D Primary Care Unavailable TALAMPAS, PETER D Referring Unavailable TALAMPAS, PETER D Primary Care Unavailable TALAMPAS, PETER D Primary Care Unavailable Allergies Allergy Classification Reported Allergen(s) Allergy Type Date of Onset Reaction(s) Facility (18 sources) Contrast media; Translations: [CONTRAST DYE] Drug Intolerance 4 GI Upset [facility] Work Phone: (18 sources) FLUoxetine; Translations: [FLUOXETINE] Drug Allergy 9 Intolerance [facility] Work Phone: (18 sources) Meclizine; Translations: [MECLIZINE] Drug Allergy 4 Mental Status Change, Other: See Comments [facility] Work Phone: (18 sources) venlafaxine; Translations: [VENLAFAXINE HCL] Drug Allergy 9 Rash [facility] Medications Current Medications Medication Drug Class(es) Dates Sig (Normalized) Sig (Original) benoxinate hydrochloride 4 mg/ml / fluorescein sodium 2.5 mg/ml ophthalmic solution (1 source) Diagnostic Dye Start: 01-09-2022 End: 01-09-2022 fluorescein-benoxi debra 0.25-0.4 % 1 Drop (FLURESS) phenylephrine hydrochloride 25 mg/ml ophthalmic solution (1 source) alpha-1 Adrenergic Agonist Start: 01-09-2022 End: 01-09-2022 PHENYLephrine 2.5 % 1 Drop (AK-DILATE, TJ-SYNEPHRINE) tropicamide 10 mg/ml ophthalmic solution (1 source) Anticholinergic Start: 01-09-2022 End: 01-09-2022 tropicamide 1 % 1 Drop (MYDRIACYL) Completed/Discontinued Medications Medication Drug Class(es) Dates Sig (Normalized) Sig (Original) aspirin 81 mg delayed release oral tablet (12 sources) Platelet Aggregation Inhibitor, Nonsteroidal Anti-inflammatory Drug Start: 01-10-2021 End: 09-12-2022 take 1 tablet by mouth once daily aspirin, enteric coated (ASPIRIN, ENTERIC COATED) 81 mg EC tablet Indications: Depression, unspecified depression type Take 1 tablet by mouth once daily. will stop if any GI adverse effects 90 tablet 3 01/10/2021 09/12/2022 Discontinued Problems Active Problems Problem Classification Problem Date Documented Date Episodic/Chronic Calculus of urinary tract (1 source) Recurrent kidney stone; Translations: [Calculus of kidney] Episodic Cataract (1 source) Bilateral senile combined form cataracts of eyes; Translations: [Combined forms of age-related cataract, bilateral] Chronic Diabetes mellitus with complications (18 sources) Type II diabetes mellitus uncontrolled; Translations: [Type 2 diabetes mellitus with hyperglycemia] Onset: 08-13-2021 08-13-2021 Chronic Diabetes mellitus without complication (6 sources) Diabetes mellitus type 2 without retinopathy; Translations: [Type 2 diabetes mellitus without complications] Onset: 07-04-2023 Chronic Disorders of lipid metabolism (20 sources) Hyperlipidemia; Translations: [Hyperlipidemia, unspecified] Onset: 04-02-2015 04-02-2015 Chronic Esophageal disorders (20 sources) Gastroesophageal reflux disease; Translations: [Gastro-esophageal reflux disease without esophagitis] Onset: 01-05-2007 01-05-2007 Chronic Genitourinary symptoms and ill-defined conditions (17 sources) Incontinence; Translations: [Mixed incontinence] Onset: 08-04-2008 08-04-2008 Chronic Mood disorders (3 sources) Depressive disorder; Translations: [Depression, unspecified depression type] Chronic Nutritional deficiencies (2 sources) Vitamin D deficiency; Translations: [Vitamin D deficiency, unspecified] Onset: 07-04-2023 02-28-2023 Chronic Other aftercare (5 sources) Patient encounter status; Translations: [Other intermediate manager (current) drug therapy] Episodic Other aftercare (2 sources) Other intermediate manager (current) drug therapy; Translations: [Encounter for long-term current use of medication] Onset: 09-12-2022 Episodic Other eye disorders (1 source) Epithelial basement membrane dystrophy; Translations: [Yun-koh-yyozkwegocm corneal dystrophy of both eyes] Episodic Other nutritional; endocrine; and metabolic disorders (17 sources) Obesity; Translations: [Obesity, unspecified] Onset: 01-05-2007 04-02-2015 Chronic Thyroid disorders (20 sources) Hypothyroidism; Translations: [Hypothyroidism, unspecified] Onset: 04-02-2015 04-02-2015 Chronic Unclassified (1 source) OPENED IN ERROR Past or Other Problems Problem Classification Problem Date Documented Da te Episodic/Chronic Conditions associated with dizziness or vertigo (17 sources) Benign paroxysmal positional vertigo; Translations: [Benign paroxysmal vertigo, unspecified ear] Onset: 03-04-2012 03-04-2012 Episodic Deficiency and other anemia (20 sources) Iron deficiency anemia; Translations: [Iron deficiency anemia, unspecified] Onset: 08-13-2021 08-13-2021 Episodic Deficiency and other anemia (1 source) Iron deficiency anemia, unspecified; Translations: [Iron deficiency anemia, unspecified iron deficiency anemia type] Onset: 08-13-2021 Episodic Disorders of teeth and jaw (17 sources) Difficulty chewing; Translations: [Other specified disorders of teeth and supporting structures] Onset: 02-25-2021 02-25-2021 Episodic Malaise and fatigue (17 sources) Asthenia; Translations: [Weakness] Onset: 04-15-2019 04-15-2019 Episodic Nutritional deficiencies (20 sources) Cobalamin deficiency; Translations: [Deficiency of other specified B group vitamins] Onset: 08-13-2021 08-13-2021 Episodic Other connective tissue disease (17 sources) Recurrent falls ; Translations: [Repeated falls] Onset: 04-15-2019 04-15-2019 Episodic Other ear and sense organ disorders (17 sources) Tinnitus; Translations: [Tinnitus, unspecified ear] Onset: 03-04-2012 03-04-2012 Episodic Other screening for suspected conditions (not mental disorders or infectious disease) (17 sources) Mammography abnormal; Translations: [Other abnormal and inconclusive findings on diagnostic imaging of breast] Onset: 02-19-2013 02-19-2013 Episodic Results Test Name Value Interpretation Reference Range Facil ity Vital Signs Date Time Vital Sign Value Performing Clinician Faci lity 02-28-2023 14:23-0400 Body temperature 97.81 [degF] Peter Presley MD Work Phone: [facility] 02-28-2023 14:23-0400 Body weight 64.86 kg Peter Presley MD Work Phone: [facility] 02-28-2023 14:23-0400 Diastolic blood pressure 65 mm[Hg] Peter Presley MD Work Phone: [facility] 02-28-2023 14:23-0400 Heart rate 115 /min Peter Presley MD Work Phone: [facility] 02-28-2023 14:23-0400 Respiratory rate 18 /min Peter Presley MD Work Phone: [facility] 02-28-2023 14:23-0400 SaO2% (BldA) [Mass fraction] 97 % Peter Presley MD Work Phone: [facility] 02-28-2023 14:23-0400 Systolic blood pressure 104 mm[Hg] Peter Presley MD Work Phone: [facility] 12-11-2021 14:27-0400 Body weight 68.95 kg Peter Presley MD Work Phone: [facility] 12-11-2021 14:27-0400 Diastolic blood pressure 68 mm[Hg] Peter Presley MD Work Phone: [facility] 12-11-2021 14:27-0400 Heart rate 96 /min Peter Presley MD Work Phone: [facility] 12-11-2021 14:27-0400 SaO2% (BldA) [Mass fraction] 97 % Petre Presley MD Work Phone: [facility] 12-11-2021 14:27-0400 Systolic blood pressure 120 mm[Hg] Peter Presley MD Work Phone: [facility] Encounters Encounter Date Encounter Type Care Provider Facility Start: 07-04-2023 End: 07-05-2023 ambulatory PETER PRESLEY Facility:[facility] Start: 04-21-2023 Telephone encounter Hayley Jimenez Navigation Procedures Date Procedure Procedure Detail Performing Clinician Start: 01-09-2022 IOL BIOMETRY W/ IOL CALC OU (BOTH EYES) Harsha Ortiz MD Work Phone: Start: 01-09-2022 End: 01-09-2022 Computerized ophthalmic imaging retina Harsha Ortiz MD Work Phone: Start: 08-13-2021 Adult depression scr eening assessment Erinivan Lopez [facility] Work Phone: Start: 03-20-2019 Electrocardiogram Plan of Treatment Date Care Activity Detail Author Start: 02-29-2024 ANNUAL PCP TEAM CHRONIC DISEASE VISIT ANNUAL PCP TEAM CHRONIC DISEASE VISIT [facility] Start: 02-14-2024 Hepatitis B screening URINE AL BUMIN:CREATININE RATIO [facility] Start: 02-14-2024 Hepatitis B surface antibody level LDL CHOLESTEROL [facility] Start: 2023 End: 08-30-2023 25-hydroxyvitamin D3 [Mass/volume] in Serum or Plasma VITAMIN D 25 HYDROXY Lab Routine Vitamin D deficiency Expected: 2023 (Approximate), Expires: 08/30/2023 [facility] Work Phone: Immunizations Immunization Date Immunization Notes Care Provider Martin spear 04-15-2022 COVID-19 booster vaccine, age 12+ yr, bivalent (PFIZER-BIONTHortau) Ceci Mancilla [facility] 04-15-2022 influenza, high-dose , quadrivalent vaccine (FLUZONE HIGH DOSE QUADRIVALENT) Ceci Mancilla [facility] 04-15-2022 influenza virus vacc ine, unspecified formulation Peter Presley MD Work Phone: [facility] 05-18-2021 zoster vaccine recombinant Keti [facility] Work Phone: [facility] Work Phone: 03-15-2021 zoster vaccine recombinant [facility] Work Phone: [facility] Work Phone: 10-03-2020 COVID-19 vaccine, ag e 12+ yr (PFIZER-BIONTECH - PURPLE TOP) Keti [facility] Work Phone: [facility] Work Phone: 09-12-2020 COVID-19 vaccine, ag e 12+ yr (PFIZER-BIONTECH - PURPLE TOP) [facility] Work Phone: 03-28-2020 influenza, high-dose , quadrivalent vaccine (FLUZONE HIGH DOSE QUADRIVALENT) [facility] Work Phone: [facility] Work Phone: 03-31-2019 influenza, high dose seasonal, preservative-free Keti [facility] Work Phone: [facility] Work Phone: 02-27-2018 influenza, seasonal, injectable Keti [facility] Work Phone: [facility] Work Phone: 03-06-2017 influenza, high dose seasonal, preservative-free [facility] Work Phone: [facility] 03-23-2016 influenza, high dose seasonal, preservative-free [facility] Work Phone: [facility] 03-15-2015 pneumococcal conjuga te vaccine, 13 valent [facility] Work Phone: [facility] 03-08-2015 influenza, seasonal, [facility] Work Phone: [facility] Work Phone: 03-05-2014 influenza, seasonal, injectable [facility] Work Phone: [facility] 05-21-2013 typhoid vaccine, unspecified formulation [facility] Work Phone: [facility] Work Phone: 05-03-2013 zoster vaccine, live Maciej Kilgore [facility] Work Phone: [facility] Work Phone: 04-08-2013 influenza virus vacc ine, unspecified formulation [facility] Work Phone: [facility] Work Phone: 04-05-2013 influenza virus vacc ine, unspecified formulation [facility] Work Phone: [facility] 03-22-2013 hepatitis A vaccine, unspecified formulation [facility] Work Phone: [facility] Work Phone: 03-04-2012 pneumococcal polysaccharide vaccine, 23 valent [facility] Work Phone: [facility] 02-24-2007 hepatitis A vaccine, adult dosage [facility] Work Phone: [facility] 02-24-2007 tetanus toxoid, redu cynthia diphtheria toxoid, and acellular pertussis vaccine, adsorbed [facility] Work Phone: [facility] 03-17-2000 measles, mumps and rubella virus vaccine [facility] Work Phone: [facility] Payers Date Payer Category Payer Medicare [id number] 2021 Medicare AETNA MEDICARE A ETNA MEDICARE PPO [id number] 2021-Present [phone] [address] [place] [address] O [id number] 2021 Medicare [id number] Social History Date Type Detail Facility Start: 11-29-2011 [facility] Work Phone: Start: 08-22-2021 End: 02-28-2023 Alcohol intake Current non-drinker of alcohol (finding) [facility] Start: 08-30-2019 History SDOH Alcohol Frequency 1 [facility] Start: 08-30-2019 History SDOH Social Connections Phone 4 [facility] Start: 08-30-2019 History SDOH Social Connections Get Together 2 [facility] Start: 08-30-2019 History SDOH Physica l Activity DPW 0 [facility] Start: 08-30-2019 History SDOH Financial 3 [facility] Start: 08-30-2019 Education 17 [facility] Start: 1945 Sex Assigned At Not on file [facility] Start: 12-30-2021 End: 04-15-2022 Exposure to SARS-CoV-2 (event) Not sure [facility] Start: 11-29-2011 Tobacco use and exposure Smoke less tobacco non-user [facility] Start: 08-30-2019 End: 02-28-2023 History of Social function [facility] Start: 08-30-2019 End: 02-28-2023 Social connection and isolation panel [facility] Do you belong to any clubs or organizations such as orthodoxy groups, unions, fraternal or athletic groups, or school groups? No [facility] Are you now , , , , never or living with a partner? [facility] How often to you hav e a drink containing alcohol? Never [facility] Average Number of Drinks Not on file [facility] Work Phone: How hard is it for y ou to pay for the very basics like food, housing, medical care, and heating Somewhat hard [facility] Do you feel stress - tense, restless, nervous, or anxious, or unable to sleep at night because your mind is troubled all the time - these days [OSQ] Only a little [facility] (I/We) worried wheth er (my/our) food would run out before (I/we) got money to buy more. Never true [facility] Medical Equipment Procedure Code Equipment Code Equipment Origin al Text Equipment Identifier Dates Mrkr 8ga Site Ne mrk [employer] - [id number] Start: 02-22-2013 Start: 01-10-2021 Clinical Notes 01-25-2016 to 06-16-2023 Telephone Encounter - Renetta Foster LPN - 04/22/2023 1:40 PM EDTTelephone Encounter - Hayley Che MSW - 04/21/2023 10:20 AM EDTPatient Peter Martinez MD - 02/28/2023 2:54 PM EDT Note Date & Type Note Facility 06-16-2023 Note Patient Outreach (AM BPHARMSVC) STEVE RUSSELL ([id number]) 1945 F Date Time Provider Department 06/16/23 MELONY DELGADO During your visit today, we recorded the following information about you: Gume (Safety Deposit Boxes Custodian)Sharon 07/17/2023 3:08 AM Signed This patient has been referred by pharmacy for turner machine operator patient assistance program test lead application testing. Patient is currently enrolled in the patient assistance program through 2022. This encounter is for the program renewal through 2023. STATUS OF APPLICATION: Can be viewed under the encounter Additional Documentation > SmartForms: [facility] PATIENT ASSISTANCE Completed forms sent to the turner machine operator will be available under Scanned Documents in the patient's chart. The finalized form can be found under PAP_Medication Name_Complete. PAP Delicatessen Clerk Team will submit and track progress on the completed PAP application. Please do NOT fax to turner machine operator unless directed by the PAP Delicatessen Clerk Team. Please see SmartForm described above for specifics. Please DO NOT close this encounter. Sent to patient: Contacted patient to verify information for application. Sent to prescriber: Sent to prescriber. Confirmation Received. Sent to turner machine operator: Allergies As of Date: 06/16/2023 Noted Allergy Reaction CONTRAST DYE 06/02/2014 8 - GI Upset Comments: pruritis and diarrhea CT contrast EFFEXOR (VENLAFAXINE HCL) 08/04/2008 2 - Rash Comments: Chest broke out got real dizzy FLUOXETINE 09/24/2018 5 - Intolerance Comments: dry mouth MECLIZINE 03/30/2014 1 - Mental Status Change 14 - Other: See Comments Comments: Patient became extremely fatigued and was unable to walk after taking 12.5mg of meclizine Date Reviewed: 02/28/2023 Reviewed by: Roula Woodall LPN - Fully Assessed Reason for Visit: Pharmacy Patient Assistance Program [Other] Cmt: 2023 Renewal- Trulicity Prescriptions as of 07/17/2023 - levothyroxine (SYNTHROID) 25 mcg tablet Take 1 tablet by mouth every Friday,Friday,Friday. Take on empty stomach. For thyroid. Add to the levothyroxine 50 mcg once daily dosing but just on Fri-Fri-Fri - metFORMIN ER (GLUCOPHAGE XR) 500 mg 24 hr tablet Take 4 tablets by mouth once daily. - glipiZIDE (GLUCOTROL XL) 10mg 24 hr tablet Take 1 tablet by mouth once daily. - atorvastatin (LIPITOR) 40 mg tablet Take 1 tablet by mouth every morning. - pantoprazole DR (PROTONIX) 40 mg tablet Take 1 tablet by mouth daily before breakfast. Take on empty stomach, 1/2 hr before meal. - escitalopram oxalate (LEXAPRO) 10 mg tablet Take 1 tablet by mouth once daily. - levothyroxine (SYNTHROID) 50 mcg tablet Take 1 tablet by mouth once daily. - dulaglutide (TRULICITY) 3 mg/0.5 mL pen injector Inject 3 mg subcutaneously one time a week. Gets through [employer] PAP. - empagliflozin (JARDIANCE) 25 mg tablet Take 1 tablet by mouth daily with breakfast. Gets through [employer] PAP. - ferrous sulfate 325 mg (65 mg iron) tablet Take 325 mg by mouth once daily. - blood sugar diagnostic (BLOOD GLUCOSE TEST) test strip Test blood sugar(s) 2 times daily. Dx: Type 2 DM - Controlled E11.9 Insulin: No - Lancets lancets Test blood sugar(s) 2 daily. Dx: E11.9 Insulin: No Problem List As Of Date 06/16/2023 Noted Resolved DIABETES MELLITUS TYPE II-UNCOMPL [E11.9] 01/05/2007 04/02/2015 Obesity [E66.9] 01/05/2007 ESOPHAGEAL REFLUX [K21.9] 01/05/2007 Depressive disorder, not elsewhere classified [*01/05/2007 04/02/2015 HYPERLIPIDEMIA NEC/NOS [E78.5] 01/05/2007 04/02/2015 HYPOTHYROIDISM NOS [E03.9] 03/24/2007 04/02/2015 URGE AND STRESS MIXED INCONTINENCE [N39.46] 08/04/2008 Benign paroxysmal positional vertigo [H81.10] 03/04/2012 Tinnitus [H93.19] 03/04/2012 Abnormal mammogram, unspecified [R92.8] 02/19/2013 Hypothyroidism [E03.9] 04/02/2015 Hyperlipidemia, unspecified [E78.5] 04/02/2015 Uncontrolled type 2 diabetes mellitus without c*01/25/2016 08/20/2018 Falls frequently [R29.6] 04/15/2019 Weakness [R53.1] 04/15/2019 Dentures complicating chewing [K08.89, Z97.2] 02/25/2021 Uncontrolled type 2 diabetes mellitus with hype*08/13/2021 03/31/2023 Iron deficiency anemia [D50.9] 08/13/2021 B12 deficiency [E53.8] 08/13/2021 Encounter Status:Closed by [employer] on 07/17/23 [facility] 04-22-2023 Miscellaneous Notes MILLA Rabago completed these. They have been faxed back to the company. Karen spoke with patient and verified that patient Jardiance medication is the only medication that she applies to [facility] for assistance. Karen will take forms to Dr. Presley office for prescription completion. documented in this encounter [facility] 03-05-2023 Miscellaneous Notes Sw spoke with patient in regards to [employer] and discount cab vouchers. Sw has updated brochures with transit cost and stops. Sw will mail [employer] brochures and [facility] resource guide to patient home. Patient noted that she would appreciate updated [employer] stop info and discount cab voucher guidelines. Sw left message for patient that Sw has updated [employer] stop info and discounted cab pass info. Sw noted in message to patient to let this Sw know if patient would like info mailed out to her and if she has any other social service needs. documented in this encounter [facility] 02-28-2023 Note HNO ID: [id number] Author: Peter Presley MD Service: ? Author Type: Physician Type: Progress Notes Filed: 03/31/2023 12:27 AM Note Text: This note was created using [employer]. Subjective Steve Russell is a 77 year old female. Patient presents with: 4 month follow up: Labs prior SUBJECTIVE: Steve Russell is a 77 year old year old lady here today for 4 month follow up appointment for review of medical conditions. Noted that car was repossessed. Son does not think she should be driving. Walks every where. No signs of bleeding. Bad fall and bled from hitting head,nose and chin. This was 3 to 4 month ago. Was at [employer]. Paramedics brought her to ER. Not missing doses of thyroid med. Some constipation issues then sometimes diarrhea. no reflux more than twice weekly. No stomach pains. No signs of GIB. PAST MEDICAL HISTORY Diagnosis Date Benign paroxysmal positional vertigo 03/04/2012 Blood in stool 2018 anemia Depressive disorder, not elsewhere classified 01/05/2007 Diaphragmatic hernia 2019 Esophageal reflux Moderate sized HH on CT 2011 Goiter, unspecified Irritable bowel syndrome Mixed incontinence urge and stress (male)(female) 08/04/2008 Obesity, unspecified 01/05/2007 Osteoarthrosis, unspecified whether generalized or localized, unspecified site Other and unspecified hyperlipidemia 01/05/2007 Tinnitus 03/04/2012 Type II or unspecified type diabetes mellitus without mention of complication, not stated as uncontrolled Unspecified hemorrhoids without mention of complication Current Outpatient Medications Medication Sig metFORMIN ER (GLUCOPHAGE XR) 500 mg 24 hr tablet Take 4 tablets by mouth once daily. glipiZIDE (GLUCOTROL XL) 10mg 24 hr tablet Take 1 tablet by mouth once daily. atorvastatin (LIPITOR) 40 mg tablet Take 1 tablet by mouth every morning. pantoprazole DR (PROTONIX) 40 mg tablet Take 1 tablet by mouth daily before breakfast. Take on empty stomach, 1/2 hr before meal. escitalopram oxalate (LEXAPRO) 10 mg tablet Take 1 tablet by mouth once daily. levothyroxine (SYNTHROID) 50 mcg tablet Take 1 tablet by mouth once daily. dulaglutide (TRULICITY) 3 mg/0.5 mL pen injector Inject 3 mg subcutaneously one time a week. Gets through [employer] P[employer]. empagliflozin (JARDIANCE) 25 mg tablet Take 1 tablet by mouth daily with breakfast. Gets through [employer] PAP. ferrous sulfate 325 mg (65 mg iron) tablet Take 325 mg by mouth once daily. blood sugar diagnostic (BLOOD GLUCOSE TEST) test strip Test blood sugar(s) 2 times daily. Dx: Type 2 DM - Controlled E11.9 Insulin: No Lancets lancets Test blood sugar(s) 2 daily. Dx: E11.9 Insulin: No No current facility-administered medications for this visit. Review of Systems Objective BP 104/65 Pulse 115 Temp 36.6 ?C (97.8 ?F) Resp 18 Wt 64.9 kg (143 lb) SpO2 97% BMI 28.88 kg/m? Physical Exam Hemoglobin A1C (%) Date Value 02/13/2023 8.8 04/03/2022 11.9 12/06/2021 10.0 08/08/2021 10.3 12/25/2020 9.2 09/21/2020 8.7 03/03/2020 7.8 08/30/2019 8.1 Component Latest Ref Rng AND Units 08/08/2021 12/06/2021 04/03/2022 02/13/2023 Protein, Total 6.3 - 8.0 g/dL 7.2 7.4 7.1 Albumin 3.9 - 4.9 g/dL 4.4 4.3 4.3 Calcium 8.5 - 10.2 mg/dL 9.6 9.8 9.6 Bilirubin, Total 0.2 - 1.3 mg/dL 0.5 0.8 0.5 Alkaline Phosphatase 34 - 123 U/L 103 158 (H) 151 (H) AST 13 - 35 U/L 45 (H) 53 (H) 59 (H) ALT 7 - 38 U/L 22 41 (H) 32 Glucose 74 - 99 mg/dL 277 (H) 230 (H) 172 (H) BUN 7 - 21 mg/dL 17 18 21 Creatinine 0.58 - 0.96 mg/dL 0.69 0.77 0.73 Sodium 136 - 144 mmol/L 137 138 138 Potassium 3.7 - 5.1 mmol/L 4.9 4.3 4.9 Chloride 97 - 105 mmol/L 103 102 104 CO2 22 - 30 mmol/L 24 25 21 (L) Anion Gap 9 - 18 mmol/L 10 11 13 eGFR >=60 mL/min/1.73mA? 89 79 84 WBC 3.70 - 11.00 k/uL 5.34 5.82 6.00 RBC 3.90 - 5.20 m/uL 3.87 (L) 4.08 3.43 (L) Hemoglobin 11.5 - 15.5 g/dL 10.7 (L) 12.0 8.5 (L) Hematocrit 36.0 - 46.0 % 36.2 39.7 29.8 (L) MCV 80.0 - 100.0 fL 93.5 97.3 86.9 MCH 26.0 - 34.0 pg 27.6 29.4 24.8 (L) MCHC 30.5 - 36.0 g/dL 29.6 (L) 30.2 (L) 28.5 (L) RDW-CV 11.5 - 15.0 % 16.6 (H) 14.0 15.3 (H) Platelet Count 150 - 400 k/uL 224 226 232 MPV 9.0 - 12.7 fL 11.5 11.7 11.9 Absolute nRBC <0.01 k/uL <0.01 <0.01 <0.01 Cholesterol, Total <200 mg/dL 140 118 Triglyceride <150 mg/dL 153 (H) 113 HDL Cholesterol >39 mg/dL 36 (L) 32 (L) Non HDL Cholesterol <130 mg/dL 104 86 Fasting Time hrs 12 13 VLDL Cholesterol <30 mg/dL 31 (H) 23 TC:HDL Ratio <5.10 3.89 3.69 LDL Cholesterol <100 mg/dL 73 63 LDL:HDL Ratio <2.54 2.03 1.97 Creatinine, Ur Random (UCRR) 20.0 - 300.0 mg/dL 94.6 85.8 Albumin, Urine Random mg/L <12.0 15.5 Albumin/Creat Ratio <30 mg/g Not calculated 18 Iron 41 - 186 ug/dL 36 (L) 67 29 (L) TIBC 232 - 386 ug/dL 405 (H) 378 418 (H) Transferrin Saturation 15.0 - 57.0 % 9 (L) 17.7 6.9 (L) Hemoglobin A1C 4.3 - 5.6 % 10.0 (H) 11.9 (H) 8.8 (H) Estimated Average Gluc (more content not included)... [facility] 02-28-2023 Instructions Peter Presley MD - 02/28/2023 3:12 PM EDT Start iron tablet over the counter 1 pill on Friday, Friday and Friday. Dose is up to you. documented in this encounter [facility] 02-28-2023 History of Presen t illness Narrative This note was created using OpenDoorriter. Subjective Steve Russell is a 77 year old female. Patient presents with: 4 month follow up: Labs prior SUBJECTIVE: Steve Russell is a 77 year old year old lady here today for 4 month follow up appointment for review of medical conditions. Noted that car was repossessed. Son does not think she should be driving. Walks every where. No signs of bleeding. Bad fall and bled from hitting head,nose and chin. This was 3 to 4 month ago. Was at [employer]. Paramedics brought her to ER. Not missing doses of thyroid med. Some constipation issues then sometimes diarrhea. no reflux more than twice weekly. No stomach pains. No signs of GIB. PAST MEDICAL HISTORY Diagnosis Date Benign paroxysmal positional vertigo 03/04/2012 Blood in stool 2018 anemia Depressive disorder, not elsewhere classified 01/05/2007 Diaphragmatic hernia 2019 Esophageal reflux Moderate sized HH on CT 2011 Goiter, unspecified Irritable bowel syndrome Mixed incontinence urge and stress (male)(female) 08/04/2008 Obesity, unspecified 01/05/2007 Osteoarthrosis, unspecified whether generalized or localized, unspecified site Other and unspecified hyperlipidemia 01/05/2007 Tinnitus 03/04/2012 Type II or unspecified type diabetes mellitus without mention of complication, not stated as uncontrolled Unspecified hemorrhoids without mention of complication Current Outpatient Medications Medication Sig metFORMIN ER (GLUCOPHAGE XR) 500 mg 24 hr tablet Take 4 tablets by mouth once daily. glipiZIDE (GLUCOTROL XL) 10mg 24 hr tablet Take 1 tablet by mouth once daily. atorvastatin (LIPITOR) 40 mg tablet Take 1 tablet by mouth every morning. pantoprazole DR (PROTONIX) 40 mg tablet Take 1 tablet by mouth daily before breakfast. Take on empty stomach, 1/2 hr before meal. escitalopram oxalate (LEXAPRO) 10 mg tablet Take 1 tablet by mouth once daily. levothyroxine (SYNTHROID) 50 mcg tablet Take 1 tablet by mouth once daily. dulaglutide (TRULICITY) 3 mg/0.5 mL pen injector Inject 3 mg subcutaneously one time a week. Gets through [facility] PAP. empagliflozin (JARDIANCE) 25 mg tablet Take 1 tablet by mouth daily with breakfast. Gets through [employer] [facility] PAP. ferrous sulfate 325 mg (65 mg iron) tablet Take 325 mg by mouth once daily. blood sugar diagnostic (BLOOD GLUCOSE TEST) test strip Test blood sugar(s) 2 times daily. Dx: Type 2 DM - Controlled E11.9 Insulin: No Lancets lancets Test blood sugar(s) 2 daily. Dx: E11.9 Insulin: No No current facility-administered medications for this visit. Review of Systems Objective BP 104/65 Pulse 115 Temp 36.6 C (97.8 F) Resp 18 Wt 64.9 kg (143 lb) SpO2 97% BMI 28.88 kg/m Physical Exam Hemoglobin A1C (%) Date Value 02/13/2023 8.8 04/03/2022 11.9 12/06/2021 10.0 08/08/2021 10.3 12/25/2020 9.2 09/21/2020 8.7 03/03/2020 7.8 08/30/2019 8.1 Component Latest Ref Rng & Units 08/08/2021 12/06/2021 04/03/2022 02/13/2023 Protein, Total 6.3 - 8.0 g/dL 7.2 7.4 7.1 Albumin 3.9 - 4.9 g/dL 4.4 4.3 4.3 Calcium 8.5 - 10.2 mg/dL 9.6 9.8 9.6 Bilirubin, Total 0.2 - 1.3 mg/dL 0.5 0.8 0.5 Alkaline Phosphatase 34 - 123 U/L 103 158 (H) 151 (H) AST 13 - 35 U/L 45 (H) 53 (H) 59 (H) ALT 7 - 38 U/L 22 41 (H) 32 Glucose 74 - 99 mg/dL 277 (H) 230 (H) 172 (H) BUN 7 - 21 mg/dL 17 18 21 Creatinine 0.58 - 0.96 mg/dL 0.69 0.77 0.73 Sodium 136 - 144 mmol/L 137 138 138 Potassium 3.7 - 5.1 mmol/L 4.9 4.3 4.9 Chloride 97 - 105 mmol/L 103 102 104 CO2 22 - 30 mmol/L 24 25 21 (L) Anion Gap 9 - 18 mmol/L 10 11 13 eGFR >=60 mL/min/1.73m 89 79 84 WBC 3.70 - 11.00 k/uL 5.34 5.82 6.00 RBC 3.90 - 5.20 m/uL 3.87 (L) 4.08 3.43 (L) Hemoglobin 11.5 - 15.5 g/dL 10.7 (L) 12.0 8.5 (L) Hematocrit 36.0 - 46.0 % 36.2 39.7 29.8 (L) MCV 80.0 - 100.0 fL 93.5 97.3 86.9 MCH 26.0 - 34.0 pg 27.6 29.4 24.8 (L) MCHC 30.5 - 36.0 g/dL 29.6 (L) 30.2 (L) 28.5 (L) RDW-CV 11.5 - 15.0 % 16.6 (H) 14.0 15.3 (H) Platelet Count 150 - 400 k/uL 224 226 232 MPV 9.0 - 12.7 fL 11.5 11.7 11.9 Absolute nRBC <0.01 k/uL <0.01 <0.01 <0.01 Cholesterol, Total <200 mg/dL 140 118 Triglyceride <150 mg/dL 153 (H) 113 HDL Cholesterol >39 mg/dL 36 (L) 32 (L) Non HDL Cholesterol <130 mg/dL 104 86 Fasting Time hrs 12 13 VLDL Cholesterol <30 mg/dL 31 (H) 23 TC:HDL Ratio <5.10 3.89 3.69 LDL Cholesterol <100 mg/dL 73 63 LDL:HDL Ratio <2.54 2.03 1.97 Creatinine, Ur Random (UCRR) 20.0 - 300.0 mg/dL 94.6 85.8 Albumin, Urine Random mg/L <12.0 15.5 Albumin/Creat Ratio <30 mg/g Not calculated 18 Iron 41 - 186 ug/dL 36 (L) 67 29 (L) TIBC 232 - 386 ug/dL 405 (H) 378 418 (H) Transferrin Saturation 15.0 - 57.0 % 9 (L) 17.7 6.9 (L) Hemoglobin A1C 4.3 - 5.6 % 10.0 (H) 11.9 (H) 8.8 (H) Estimated Average Glucose mg/dL 240 295 206 Vitamin B12 232 - 1,245 pg/mL 270 782 331 Ferritin 14.7 - 205.1 ng/mL 28.9 16.6 TSH 0.270 - 4.200 mIU/L 3.430 3.250 4.230 (H) Free T4 0.9 - 1.7 ng/dL 1.2 1.4 1.3 Free T3 2.3 - 4.1 pg/mL 2.5 Folate >4.7 ng/mL >20.0 Assessment and Plan Encounter Diagnosis ICD-10-CM 1. Acquired hypothyroidism E03.9 TSH BLD T4 FREE/FREE THYROX T3 FREE BLD TSH up. Adjust dose as indicated based on labs and symptoms 2. Type 2 diabetes mellitus without complication, without long-term current use of insulin (HCC) E11.9 HGB A1C Improved control. Continue present management 3. Iron deficiency anemia, unspecified iron deficiency anemia type D50.9 CBC + DIFF IRON + TIBC FERRITIN BLD 4. B12 deficiency E53.8 VITAMIN B12 BLOOD 5. Vitamin D deficiency E55.9 VITAMIN D 25 HYDROXY 6. Encounter for long-term current use of medication Z79.899 COMP METABOLIC PANEL CBC Above issues addressed with patient. Patient involved in shared decision making for management of medical issues. History and medications reviewed. Epic updated as needed Refills and/or prescriptions taken care of and meds adjusted as indicated after reviewed history, exam and labs. Health Maintenance reviewed. Updated record and/or ordered tests as recorded. Encouraged on efforts at healthy diet and regular exercise and adequate sleep. Continue present management.Continue present meds.Further evaluation and treatment as indicated. I spent a total of 31 minutes on the date of the service which included [id number] patient care, completing clinical documentation, obtaining and/or reviewing separately obtained history, performing a medically appropriate examination, counseling and educating the patient/family/caregiver, and ordering medications, tests, or procedures. Peter Presley MD documented in this encounter [facility] 02-13-2023 Miscellaneous Notes Left detailed vm informing patient of lab orders. Filed order Patient asking for lab orders to be completed prior to 02/28/23 appt. Radha Lea MA documented in this encounter [facility] 09-12-2022 Note HNO ID: [id number] Author: Melony Delgado [facility] Service: ? Author Type: Pharmacist Type: Progress Notes Filed: 09/12/2022 12:22 PM Note Text: Primary Care Pharmacy Visit CC (Reason for Consult): Diabetes Goal: A1c < 8% Collaborating Provider: Dr. Presley Last Provider Visit: 04/15/22 Steve Russell is a 77 year old female presenting for follow up visit in person. Patient consents to pharmacy collaborative practice agreement. Patient is presenting today for f/up pharmacotherapy management appointment for diabetes. Per consult notes, would like to get CGM but is not on insulin. At last PCP appt, no med changes made but patient referred to PharmD. At PharmD visit on 06/20, no med changes since no SMBGs to review but much DM education was provided and lifestyle modifications and med adherence encouraged. Consult to SW placed to see if qualifies for Medicaid. At last PharmD visit on 07/25, Trulicity and Jardiance were increased. Subjective: HPI: States she needs prescriptions renewed: atorvastatin, glipizide, pantoprazole, Jardiance 10mg. I'm all confused. States she switched insurance. Used to get prescriptions through the mail through [facility]. Said her new pharmacy is [facility] - needs all meds sent [facility]. Feels overwhelmed with meds. Has meds at various places in her house. Has been out of [facility] for a long time, uncertain how long. Not using anything to organize her medications. States she has numerous metformin pill bottles and doesn't know how she had so much. She increased Trulicity, tolerating fine. Increased several weeks ago. Not checking blood sugars. Interested in CGM. Has supplies but doesn't like to check sugars. Current DM Medications: Metformin ER 500mg tabs - 2000mg daily Glipizide XL 10mg daily (reports being out, uncertain for how long) Empagliflozin (Jardiance) 25mg daily (reports being out, uncertain for how long) Dulaglutide (Trulicity) 3mg weekly on Mondays Current HTN Medications: None GLYCEMIC CONTROL: Glucometer present at visit: No SMBG?s: none, not checking Hypoglycemia: none Preventative Medications: On BENEDICTO/ARB: No On Statin: Yes MEDICATIONS: Pill bottles are present Adherence: reports missed doses of atorva, glip, jardiance, and pantoprazole because out of supply Pharmacy: was [facility] though changed insurance; thinks [facility] preferred Rx coverage: [facility] Medicare Affordability: no issues Diabetes supplies: not addressed Organization System: pill box, kept on the floor ACTIVE PROBLEM LIST Obesity Esophageal Reflux Mixed Incontinence Urge and Stress (Male)(female) Benign Paroxysmal Positional Vertigo Tinnitus Abnormal Mammogram, Unspecified Hypothyroidism Hyperlipidemia, Unspecified Falls Frequently Weakness Dentures Complicating Chewing Uncontrolled Type 2 Diabetes Mellitus With Hyperglycemia (Hcc) Iron Deficiency Anemia B12 Deficiency PAST MEDICAL HISTORY Diagnosis Date Benign paroxysmal positional vertigo 03/04/2012 Blood in stool 2018 anemia Depressive disorder, not elsewhere classified 01/05/2007 Diaphragmatic hernia 2019 Esophageal reflux Moderate sized HH on CT 2011 Goiter, unspecified Irritable bowel syndrome Mixed incontinence urge and stress (male)(female) 08/04/2008 Obesity, unspecified 01/05/2007 Osteoarthrosis, unspecified whether generalized or localized, unspecified site Other and unspecified hyperlipidemia 01/05/2007 Tinnitus 03/04/2012 Type II or unspecified type diabetes mellitus without mention of complication, not stated as uncontrolled Unspecified hemorrhoids without mention of complication ALLERGIES Allergen Reactions Contrast Dye GI Upset pruritis and diarrhea CT contrast Effexor [Venlafaxin* Rash Chest broke out got real dizzy Fluoxetine Intolerance dry mouth Meclizine Mental Status Change, Other: See Comments Patient became extremely fatigued and was unable to walk after taking 12.5mg of meclizine Medication List Medication Directions Comments Action/Plan aspirin, enteric coated (ASPIRIN, ENTERIC COATED) 81 mg EC tablet Take 1 tablet by mouth once daily. will stop if any GI adverse effects Not taking. Occasionally takes 2 tabs at night if can't sleep. Denies any hx AL/stroke. Denies GI issues though problem list indicates hx blood in stool Not needed, will remove from med list atorvastatin (LIPITOR) 40 mg tablet Take 1 tablet by mouth every morning. Has bottle but not taking because out of medication Needs to send script to new pharmacy blood sugar diagnostic (BLOOD GLUCOSE TEST) test strip Test blood sugar(s) 2 times daily. Dx: Type 2 DM - Controlled E11.9 Insulin: No supplies COMPOUNDED PRESCRIPTION BLOOD PRESSURE CUFF FOR HOME USE. DX: R00.2, E11.65 supplies cyanocobalamin (VITAMIN B-12) 1,000 mcg tab Take 1 tablet by mouth once daily. Stopped taking Removed from med list dulaglutide (TRULIC (more content not included)... [facility] 09-12-2022 Miscellaneous Notes During PharmD visit today, it was noted patient has NOT been taking many of her medications. Patient would benefit greatly from adherence packaging. The following prescriptions need sent to [facility] and are pended for PCP/WASTE CHOPPER's signature: Requested Prescriptions Pending Prescriptions Disp Refills pantoprazole DR (PROTONIX) 40 mg tablet 90 tablet 3 Sig: Take 1 tablet by mouth daily before breakfast. Take on empty stomach, 1/2 hr before meal. escitalopram oxalate (LEXAPRO) 10 mg tablet 90 tablet 3 Sig: Take 1 tablet by mouth once daily. levothyroxine (SYNTHROID) 50 mcg tablet 90 tablet 3 Sig: Take 1 tablet by mouth once daily. *Of note, the patient's levothyroxine prescription is written as taking 50mg 5x/week and 1.5 tabs 2x/week. At previous visits, patient indicated she was only taking 1 tablet daily. I changed the script to 50mg daily since this is what she indicated she was taking, plus for added simplicity. If prefers she resume previous prescribed dosing, please adjust the sig. Patient reports being out of levothyroxine and ferrous sulfate for an unknown period of time. Patient plans to come to get labs drawn sometime in the next 1-[address] any labs for thyroid levels or CBC/iron levels if clinically indicated. Thanks! Melony Delgado PharmD, [facility] Primary Care Clinical Pharmacist documented in this encounter [facility] 09-12-2022 History of Presen t illness Narrative Primary Care Pharmacy Visit CC (Reason for Consult): Diabetes Goal: A1c < 8% Collaborating Provider: Dr. Presley Last Provider Visit: 04/15/22 Steve Russell is a 77 year old female presenting for follow up visit in person. Patient consents to pharmacy collaborative practice agreement. Patient is presenting today for f/up pharmacotherapy management appointment for diabetes. Per consult notes, would like to get CGM but is not on insulin. At last PCP appt, no med changes made but patient referred to PharmD. At PharmD visit on 06/20, no med changes since no SMBGs to review but much DM education was provided and lifestyle modifications and med adherence encouraged. Consult to elizabeth to see if qualifies for Medicaid. At last PharmD visit on 07/25, Trulicity and Jardiance were increased. Subjective: HPI: States she needs prescriptions renewed: atorvastatin, glipizide, pantoprazole, Jardiance 10mg. I'm all confused. States she switched insurance. Used to get prescriptions through the mail through [facility]. Said her new pharmacy is [facility] - needs all meds sent to [facility]. Feels overwhelmed with meds. Has meds at various places in her house. Has been out of [facility] for a long time, uncertain how long. Not using anything to organize her medications. States she has numerous metformin pill bottles and doesn't know how she had so much. She increased Trulicity, tolerating fine. Increased several weeks ago. Not checking blood sugars. Interested in CGM. Has supplies but doesn't like to check sugars. Current DM Medications: Metformin ER 500mg tabs - 2000mg daily Glipizide XL 10mg daily (reports being out, uncertain for how long) Empagliflozin (Jardiance) 25mg daily (reports being out, uncertain for how long) Dulaglutide (Trulicity) 3mg weekly on Mondays Current HTN Medications: None GLYCEMIC CONTROL: Glucometer present at visit: No SMBG s: none, not checking Hypoglycemia: none Preventative Medications: On BENEDICTO/ARB: No On Statin: Yes MEDICATIONS: Pill bottles are present Adherence: reports missed doses of atorva, glip, jardiance, and pantoprazole because out of supply Pharmacy: was [facility] though changed insurance; thinks [facility] preferred Rx coverage: [facility] Medicare Affordability: no issues Diabetes supplies: not addressed Organization System: pill box, kept on the floor ACTIVE PROBLEM LIST Obesity Esophageal Reflux Mixed Incontinence Urge and Stress (Male)(female) Benign Paroxysmal Positional Vertigo Tinnitus Abnormal Mammogram, Unspecified Hypothyroidism Hyperlipidemia, Unspecified Falls Frequently Weakness Dentures Complicating Chewing Uncontrolled Type 2 Diabetes Mellitus With Hyperglycemia (Hcc) Iron Deficiency Anemia B12 Deficiency PAST MEDICAL HISTORY Diagnosis Date Benign paroxysmal positional vertigo 03/04/2012 Blood in stool 2018 anemia Depressive disorder, not elsewhere classified 01/05/2007 Diaphragmatic hernia 2019 Esophageal reflux Moderate sized HH on CT 2011 Goiter, unspecified Irritable bowel syndrome Mixed incontinence urge and stress (male)(female) 08/04/2008 Obesity, unspecified 01/05/2007 Osteoarthrosis, unspecified whether generalized or localized, unspecified site Other and unspecified hyperlipidemia 01/05/2007 Tinnitus 03/04/2012 Type II or unspecified type diabetes mellitus without mention of complication, not stated as uncontrolled Unspecified hemorrhoids without mention of complication ALLERGIES Allergen Reactions Contrast Dye GI Upset pruritis and diarrhea CT contrast Effexor [Venlafaxin* Rash Chest broke out got real dizzy Fluoxetine Intolerance dry mouth Meclizine Mental Status Change, Other: See Comments Patient became extremely fatigued and was unable to walk after taking 12.5mg of meclizine Medication List Medication Directions Comments Action/Plan aspirin, enteric coated (ASPIRIN, ENTERIC COATED) 81 mg EC tablet Take 1 tablet by mouth once daily. will stop if any GI adverse effects Not taking. Occasionally takes 2 tabs at night if can't sleep. Denies any hx AL/stroke. Denies GI issues though problem list indicates hx blood in stool Not needed, will remove from med list atorvastatin (LIPITOR) 40 mg tablet Take 1 tablet by mouth every morning. Has bottle but not taking because out of medication Needs to send script to new pharmacy blood sugar diagnostic (BLOOD GLUCOSE TEST) test strip Test blood sugar(s) 2 times daily. Dx: Type 2 DM - Controlled E11.9 Insulin: No supplies COMPOUNDED PRESCRIPTION BLOOD PRESSURE CUFF FOR HOME USE. DX: R00.2, E11.65 supplies cyanocobalamin (VITAMIN B-12) 1,000 mcg tab Take 1 tablet by mouth once daily. Stopped taking Removed from med list dulaglutide (TRULICITY) 3 mg/0.5 mL pen injector Inject 3 mg subcutaneously one time a week. Gets through [facility] P[facility]. Taking 3mg weekly empagliflozin (JARDIANCE) 25 mg tablet Take 1 tablet by mouth daily with breakfast. Gets through [facility] P[facility]. Has Jardiance 10mg tablets. Taking 1 tablet daily. She thinks she gets it through her pharmacy, not [facility] Need to call [facility] to check on application status escitalopram oxalate (LEXAPRO) 10 mg tablet Take 1 tablet by mouth once daily. States she never received medication. Interested in trying it Needs to get script sent to new pharmacy ferrous sulfate 325 mg (65 mg iron) tablet Take 325 mg by mouth once daily. Stopped buying it at the pharmacy Will inform PCP that not taking, may possible need to repeat labs glipiZIDE (GLUCOTROL XL) 10mg 24 hr tablet Take 1 tablet by mouth once daily. Pill bottle present; is out of medication; not sure when ran out Needs script sent to new pharmacy Lancets lancets Test blood sugar(s) 2 daily. Dx: E11.9 Insulin: No supplies levothyroxine (SYNTHROID) 50 mcg tablet Take 1 tablet by mouth five times a week AND 1.5 tablets two times a week. Patient taking differently: Taking 1 tab daily NOT TAKING, pill bottle not present and she doesn't know why; believes she was on levothyroxine this fall (last TSH/T4 levels WNL when drawn in March 2022) Will send FYI to PCP. Should get TSH/T4 levels redrawn metFORMIN ER (GLUCOPHAGE XR) 500 mg 24 hr tablet Take 4 tablets by mouth once daily. Pill bottle present; she IS taking this medication; reports taking Script needs sent to new pharmacy pantoprazole DR (PROTONIX) 40 mg tablet Take 1 tablet by mouth daily before breakfast. Take on empty stomach, 1/2 hr before meal. Pill bottle present; she ran out of medication Order needs sent to new pharmacy Rx meds not listed in EPIC: none OTCs: none Herbals: none Objective: Exam: Last 3 Encounter BP Readings: Date: BP: 04/15/2022 104/72 12/11/2021 120/68 08/13/2021 112/64 Wt: 67.1 kg (148 lb) BMI: 29.89 kg/(m^2) LABS: Reviewed Lab Results Component Value Date HBA1C 11.9 04/03/2022 HBA1C 10.0 12/06/2021 HBA1C 10.3 08/08/2021 HBA1C 9.2 12/25/2020 HBA1C 8.7 09/21/2020 CMP: Glucose 230 04/03/2022 BUN 18 04/03/2022 Creatinine 0.77 04/03/2022 Sodium 138 04/03/2022 Potassium 4.3 04/03/2022 Chloride 102 04/03/2022 CO2 25 04/03/2022 Protein, Total 7.4 04/03/2022 Albumin 4.3 04/03/2022 Calcium 9.8 04/03/2022 Alkaline Phosphatase 158 04/03/2022 Bilirubin, Total 0.8 04/03/2022 AST 53 04/03/2022 ALT 41 04/03/2022 eGFR 79 (per CMP 04/03/22) Lab Results Component Value Date CHOL 140 12/06/2021 CHOL 142 09/21/2020 LDL 73 12/06/2021 LDL 66 09/21/2020 HDL 36 12/06/2021 HDL 40 09/21/2020 TG 153 12/06/2021 TG 178 09/21/2020 The 10-year ASCVD risk score (Claritza JACKSON, et al., 2019) is: 28.6% Values used to calculate the score: Age: 77 years Sex: Female Is Non- : No Diabetic: Yes Tobacco smoker: No Systolic Blood Pressure: 104 mmHg Is BP treated: No HDL Cholesterol: 36 mg/dL Total Cholesterol: 140 mg/dL Albumin/Creat Ratio (mg/g) Date Value 08/08/2021 Not calculated PHARMACOTHERAPY ASSESSMENT/PLAN: 1. Medication management - ICD9: V58.69, ICD10: Z79.899 (primary diagnosis) Reviewed all medications, indications, dosing, frequency, administration with patient. Medication list updated as described above. Nonadherence: Patient had pill bottles present in front of her during phone call. She is NOT taking the following medications (and not sure when she stopped any): Atorvastatin -- needs refill sent to new pharmacy since no longer uses [facility] Glipizide -- needs refill sent to new pharmacy since no longer uses [facility] Pantoprazole -- needs refill sent to new pharmacy since no longer uses [facility]; will send refill request to PCP Levothyroxine -- needs refill sent to new pharmacy since no longer uses [facility]; will send refill request to PCP and see if labs need ordered Escitalopram -- states she never received medication, wonders if happened around the time insurance changes; will send refill request to PCP Jardiance -- ran out of the 10mg tabs; Netrep[employer] tasneem completed for 25mg tabs --> PharmD called [facility] (on hold for ~30 mins); confirmed she was approved for the 25mg tabs though no refill request placed. PharmD requested they refill med, should be delivered by end of month. Patient will need to request refills each time she is about to run out --> PharmD will inform patient at next visit. Vitamin B12 --> removed from med list Ferrous sulfate --> PharmD will inform PCP to see if repeat labs need placed Aspirin -- patient has no hx of ASCVD; not indicated at this time given age and recent data showing increased risk in patients >70 yo; removed from med list Patient would benefit greatly from adherence packaging. PharmD called [facility] to see if they accept patient's insurance and hydro plant technician believes it would be accepted. PharmD provided patient info and insurance information. Will have all prescriptions sent to [facility] through their adherence packaging and mail delivery service Patient due for labwork. Requested she have drawn in the next 1-2 weeks, she was agreeable to doing so. 2. Type 2 diabetes mellitus without complication, without long-term current use of insulin ([facility]) - ICD9: 250.00, ICD10: E11.9 A1c goal < 8%; uncontrolled (last A1c 11.9%); no SMBG log to review; patient reports consistently taking metformin and Trulicity and tolerating fine; is out of glipizide and Jardiance --> needs script sent to new pharmacy for glipizide and need to contact [facility] regarding Jardiance status; patient interested in CGM though doesn't qualify through insurance, will need to use fingersticks, though priority is taking meds consistently; renal fxn and LFTs sufficient for use CONTINUE metformin ER 2000mg daily and Trulicity 3mg weekly PharmD will send refills of glipizide to pharmacy to restart PharmD to call [facility] to check on status of Jardiance 25mg daily Encouraged occasional SMBG HbA1c: due now *Patient gave me verbal permission to leave detailed VM on her phone. Follow-up Patient is scheduled to see PCP team on 12/16. Patient to have f/up with PharmD team on 10/10. Patient verbalized understanding of instructions. Melony Delgado, Eliseo, [facility] Primary Care Clinical Pharmacist The majority of the pharmacy visit (> 50%) was spent counseling and/or coordinating care for the patient. interaction: telephonic time was 90 minutes. documented in this encounter [facility] 07-25-2022 Note HNO ID: [id number] Author: Melony Delgado RPh Service: ? Author Type: Pharmacist Type: Progress Notes Filed: 07/25/2022 3:28 PM Note Text: Primary Care Pharmacy Visit CC (Reason for Consult): Diabetes Goal: A1c < 8% Collaborating Provider: Dr. Presley Last Provider Visit: 04/15/22 Steve Russell is a 77 year old female presenting for follow up visit in person. Patient consents to pharmacy collaborative practice agreement. Patient is presenting today for f/up pharmacotherapy management appointment for diabetes. Per consult notes, would like to get CGM but is not on insulin. At last PCP appt, no med changes made but patient referred to PharmD. At last PharmD visit on 06/20, no med changes since no SMBGs to review but much DM education was provided and lifestyle modifications and med adherence encouraged. Consult to [facility] to see if qualifies for Medicaid. Subjective: HPI: Reports she is not checking her sugars. Glucometer is not working and forgot to bring it with her. It's probably in the 400s. Says she doesn't feel well, her depression is not good. Has another dog who is dying but can't afford to put him down. Doesn't have much interest in doing things. Not eating properly. Sleeping OK but days and nights are mixed up. No thoughts of harming self or others. No SI/HI. I'm just so alone. Doesn't want to do counseling. Received a shipment of Zoobe today. 3mg dose. Not sure how much of the 1.5mg pens she has remaining. She feels thirsty all the time. Not much energy. Wearing diapers, does have urination/incontinence issues. No issues with UTIs or yeast infections. Overall feels she does pretty well remembering to take her medications. Current DM Medications: Metformin ER 500mg tabs - 2000mg daily Glipizide XL 10mg daily Empagliflozin (Jardiance) 10mg daily Dulaglutide (Trulicity) 1.5mg weekly on Mondays (just received shipment of 3mg dose) Current HTN Medications: None GLYCEMIC CONTROL: Glucometer present at visit: No SMBG?s: not checking, can't get glucometer to work Hypoglycemia: none Preventative Medications: On BENEDICTO/ARB: No On Statin: Yes ROS: Patient denies CP, SOB, DAVIS, blurred vision, dizziness or lightheadedness Patient denies symptoms of hypoglycemia (sweating, anxiety, palpitations, hunger, and tremor) Patient denies symptoms of hyperglycemia (polyuria, polydipsia, polyphagia) Patient denies potential medication adverse effects MEDICATIONS: Pill bottles are not present Adherence: reports missed doses of AM meds maybe once or twice weekly from sleeping in Pharmacy: [facility] Rx coverage: [facility] Medicare Affordability: no issues Diabetes supplies: not addressed Organization System: pill box, kept on the floor ACTIVE PROBLEM LIST Obesity Esophageal Reflux Mixed Incontinence Urge and Stress (Male)(female) Benign Paroxysmal Positional Vertigo Tinnitus Abnormal Mammogram, Unspecified Hypothyroidism Hyperlipidemia, Unspecified Falls Frequently Weakness Dentures Complicating Chewing Uncontrolled Type 2 Diabetes Mellitus With Hyperglycemia (Hcc) Iron Deficiency Anemia B12 Deficiency PAST MEDICAL HISTORY Diagnosis Date Benign paroxysmal positional vertigo 03/04/2012 Blood in stool 2019 anemia Depressive disorder, not elsewhere classified 01/05/2007 Diaphragmatic hernia 2019 Esophageal reflux Moderate sized HH on CT 2011 Goiter, unspecified Irritable bowel syndrome Mixed incontinence urge and stress (male)(female) 08/04/2008 Obesity, unspecified 01/05/2007 Osteoarthrosis, unspecified whether generalized or localized, unspecified site Other and unspecified hyperlipidemia 01/05/2007 Tinnitus 03/04/2012 Type II or unspecified type diabetes mellitus without mention of complication, not stated as uncontrolled Unspecified hemorrhoids without mention of complication ALLERGIES Allergen Reactions Contrast Dye GI Upset pruritis and diarrhea CT contrast Effexor [Venlafaxin* Rash Chest broke out got real dizzy Fluoxetine Intolerance dry mouth Meclizine Mental Status Change, Other: See Comments Patient became extremely fatigued and was unable to walk after taking 12.5mg of meclizine Medication List Medication Directions Comments Action/Plan aspirin, enteric coated (ASPIRIN, ENTERIC COATED) 81 mg EC tablet Take 1 tablet by mouth once daily. will stop if any GI adverse effects atorvastatin (LIPITOR) 40 mg tablet Take 1 tablet by mouth every morning. blood sugar diagnostic (BLOOD GLUCOSE TEST) test strip Test blood sugar(s) 2 times daily. Dx: Type 2 DM - Controlled E11.9 Insulin: No COMPOUNDED PRESCRIPTION BLOOD PRESSURE CUFF FOR HOME USE. DX: R00.2, E11.65 cyanocobalamin (VITAMIN B-12) 1,000 mcg tab Take 1 tablet by mouth once daily. dulaglutide (TRULICITY) 1.5 mg/0.5 mL pen injector Inject 1.5 mg subcutaneously one time a week. empagliflozin (JARDIANCE) 10 mg tablet T (more content not included)... [facility] 07-25-[facility] History of Presen t illness Narrative Primary Care Pharmacy Visit CC (Reason for Consult): Diabetes Goal: A1c < 8% Collaborating Provider: Dr. Presley Last Provider Visit: 04/15/22 Steve Russell is a 77 year old female presenting for follow up visit in person. Patient consents to pharmacy collaborative practice agreement. Patient is presenting today for f/up pharmacotherapy management appointment for diabetes. Per consult notes, would like to get CGM but is not on insulin. At last PCP appt, no med changes made but patient referred to PharmD. At last PharmD visit on 06/20, no med changes since no SMBGs to review but much DM education was provided and lifestyle modifications and med adherence encouraged. Consult to [facility] to see if qualifies for Medicaid. Subjective: HPI: Reports she is not checking her sugars. Glucometer is not working and forgot to bring it with her. It's probably in the 400s. Says she doesn't feel well, her depression is not good. Has another dog who is dying but can't afford to put him down. Doesn't have much interest in doing things. Not eating properly. Sleeping OK but days and nights are mixed up. No thoughts of harming self or others. No SI/HI. I'm just so alone. Doesn't want to do counseling. Received a shipment of Trulicity today. 3mg dose. Not sure how much of the 1.5mg pens she has remaining. She feels thirsty all the time. Not much energy. Wearing diapers, does have urination/incontinence issues. No issues with UTIs or yeast infections. Overall feels she does pretty well remembering to take her medications. Current DM Medications: Metformin ER 500mg tabs - 2000mg daily Glipizide XL 10mg daily Empagliflozin (Jardiance) 10mg daily Dulaglutide (Trulicity) 1.5mg weekly on Mondays (just received shipment of 3mg dose) Current HTN Medications: None GLYCEMIC CONTROL: Glucometer present at visit: No SMBG s: not checking, can't get glucometer to work Hypoglycemia: none Preventative Medications: On BENEDICTO/ARB: No On Statin: Yes ROS: Patient denies CP, SOB, DAVIS, blurred vision, dizziness or lightheadedness Patient denies symptoms of hypoglycemia (sweating, anxiety, palpitations, hunger, and tremor) Patient denies symptoms of hyperglycemia (polyuria, polydipsia, polyphagia) Patient denies potential medication adverse effects MEDICATIONS: Pill bottles are not present Adherence: reports missed doses of AM meds maybe once or twice weekly from sleeping in Pharmacy: [facility] Rx coverage: [facility] Medicare Affordability: no issues Diabetes supplies: not addressed Organization System: pill box, kept on the floor ACTIVE PROBLEM LIST Obesity Esophageal Reflux Mixed Incontinence Urge and Stress (Male)(female) Benign Paroxysmal Positional Vertigo Tinnitus Abnormal Mammogram, Unspecified Hypothyroidism Hyperlipidemia, Unspecified Falls Frequently Weakness Dentures Complicating Chewing Uncontrolled Type 2 Diabetes Mellitus With Hyperglycemia (Hcc) Iron Deficiency Anemia B12 Deficiency PAST MEDICAL HISTORY Diagnosis Date Benign paroxysmal positional vertigo 03/04/2012 Blood in stool 2019 anemia Depressive disorder, not elsewhere classified 01/05/2007 Diaphragmatic hernia 2019 Esophageal reflux Moderate sized HH on CT 2011 Goiter, unspecified Irritable bowel syndrome Mixed incontinence urge and stress (male)(female) 08/04/2008 Obesity, unspecified 01/05/2007 Osteoarthrosis, unspecified whether generalized or localized, unspecified site Other and unspecified hyperlipidemia 01/05/2007 Tinnitus 03/04/2012 Type II or unspecified type diabetes mellitus without mention of complication, not stated as uncontrolled Unspecified hemorrhoids without mention of complication ALLERGIES Allergen Reactions Contrast Dye GI Upset pruritis and diarrhea CT contrast Effexor [Venlafaxin* Rash Chest broke out got real dizzy Fluoxetine Intolerance dry mouth Meclizine Mental Status Change, Other: See Comments Patient became extremely fatigued and was unable to walk after taking 12.5mg of meclizine Medication List Medication Directions Comments Action/Plan aspirin, enteric coated (ASPIRIN, ENTERIC COATED) 81 mg EC tablet Take 1 tablet by mouth once daily. will stop if any GI adverse effects atorvastatin (LIPITOR) 40 mg tablet Take 1 tablet by mouth every morning. blood sugar diagnostic (BLOOD GLUCOSE TEST) test strip Test blood sugar(s) 2 times daily. Dx: Type 2 DM - Controlled E11.9 Insulin: No COMPOUNDED PRESCRIPTION BLOOD PRESSURE CUFF FOR HOME USE. DX: R00.2, E11.65 cyanocobalamin (VITAMIN B-12) 1,000 mcg tab Take 1 tablet by mouth once daily. dulaglutide (TRULICITY) 1.5 mg/0.5 mL pen injector Inject 1.5 mg subcutaneously one time a week. empagliflozin (JARDIANCE) 10 mg tablet Take 1 tablet by mouth daily with breakfast. escitalopram oxalate (LEXAPRO) 10 mg tablet Take 1 tablet by mouth once daily. ferrous sulfate 325 mg (65 mg iron) tablet Take 325 mg by mouth once daily. glipiZIDE (GLUCOTROL XL) 10mg 24 hr tablet Take 1 tablet by mouth once daily. Lancets lancets Test blood sugar(s) 2 daily. Dx: E11.9 Insulin: No levothyroxine (SYNTHROID) 50 mcg tablet Take 1 tablet by mouth five times a week AND 1.5 tablets two times a week. Patient taking differently: Taking 1 tab daily metFORMIN ER (GLUCOPHAGE XR) 500 mg 24 hr tablet Take 4 tablets by mouth once daily. pantoprazole DR (PROTONIX) 40 mg tablet Take 1 tablet by mouth daily before breakfast. Take on empty stomach, 1/2 hr before meal. Objective: Exam: Last 3 Encounter BP Readings: Date: BP: 04/15/2022 104/72 12/11/2021 120/68 08/13/2021 112/64 Wt: 67.1 kg (148 lb) BMI: 29.89 kg/(m^2) LABS: Reviewed Lab Results Component Value Date HBA1C 11.9 04/03/2022 HBA1C 10.0 12/06/2021 HBA1C 10.3 08/08/2021 HBA1C 9.2 12/25/2020 HBA1C 8.7 09/21/2020 CMP: Glucose 230 04/03/2022 BUN 18 04/03/2022 Creatinine 0.77 04/03/2022 Sodium 138 04/03/2022 Potassium 4.3 04/03/2022 Chloride 102 04/03/2022 CO2 25 04/03/2022 Protein, Total 7.4 04/03/2022 Albumin 4.3 04/03/2022 Calcium 9.8 04/03/2022 Alkaline Phosphatase 158 04/03/2022 Bilirubin, Total 0.8 04/03/2022 AST 53 04/03/2022 ALT 41 04/03/2022 eGFR 79 (per CMP 04/03/22) Lab Results Component Value Date CHOL 140 12/06/2021 CHOL 142 09/21/2020 LDL 73 12/06/2021 LDL 66 09/21/2020 HDL 36 12/06/2021 HDL 40 09/21/2020 TG 153 12/06/2021 TG 178 09/21/2020 The 10-year ASCVD risk score (Claritza JACKSON, et al., 2019) is: 28.6% Values used to calculate the score: Age: 77 years Sex: Female Is Non- : No Diabetic: Yes Tobacco smoker: No Systolic Blood Pressure: 104 mmHg Is BP treated: No HDL Cholesterol: 36 mg/dL Total Cholesterol: 140 mg/dL Albumin/Creat Ratio (mg/g) Date Value 08/08/2021 Not calculated PHARMACOTHERAPY ASSESSMENT/PLAN: 1. Type 2 diabetes mellitus without complication, without long-term current use of insulin ([facility]) - ICD9: 250.00, ICD10: E11.9 A1c goal < 8%; uncontrolled (last A1c 11.9%); no SMBG log to review and no recent readings to report; pt feels Bgs are likely very high; reports adherence to medications though external fill hx suggested nonadherence may be likely; patient just received shipment of Trulicity 3mg pens so will have her increase the dose next week; should be expecting the Jardiance 25mg pills in the mail soon so will have her increase the dose once received; will f/up after next PCP appt and A1c; renal fxn and LFTs sufficient for use INCREASE Trulicity to 3mg weekly May take 2 injections of the 1.5mg pens to use up remaining supply INCREASE Jardiance to 25mg daily once receives shipment in the mail May take 2 tabs of 10mg tabs to use up remaining supply CONTINUE metformin ER 2000mg daily and glipizide XL daily Labs prior to next appt (A1c, BMP, urine albumin/creat) Advised to start checking BG. If doesn't know how to use glucometer, bring to next PharmD visit 2. Medication management - ICD9: V58.69, ICD10: Z79.899 Affordability issues: Patient never contacted the Medicaid # that SW provided to see if she qualifies for Medicaid. PharmD provided her with the number again and strongly encouraged her to call Nonadherence: Seems likely that patient is not taking meds consistently based on external fill hx. She is missing AM meds 1-2x/week, discussed relocating pill box to a more obvious location (ie right next to the couch). Patient also says she can no longer use [facility] and doesn't know what pharmacy is preferred by her new insurance --> PharmD advised her to contact her insurance company this week to learn who preferred mail order pharmacy is and then to notify office so PCP can send scripts over to new location Patient notes having depression. Denies SI/HI. Strongly encouraged her to pursue counseling and f/up with PCP. Follow-up Patient is scheduled to see PCP team on 08/13. Patient to have f/up with PharmD team on 09/12. Patient verbalized understanding of instructions. Melony Delgado PharmD, [facility] Primary Care Clinical Pharmacist The majority of the pharmacy visit (> 50%) was spent counseling and/or coordinating care for the patient. interaction: face to face time was 45 minutes. documented in this encounter [facility] 07-25-2022 Instructions Melony Delgado RPh - 07/25/2022 2:30 PM EST Call Medicaid Shared Services number [phone], to reach out to our area services to see about material that they could provide to patient regarding how Medicaid assistance works with Medicare. You can be screen over the phone to see if you qualify for Medicaid. Call your insurance company to learn what your preferred mail order pharmacy is. Call the office to request that your medications be sent to your new pharmacy. For next pharmacy visit, please bring in your glucometer and pill bottles. INCREASE Trulicity to 3mg weekly. You may use 2 injections of the 1.5mg pens once weekly to use up your remaining supply. Whenever you received your Jardiance in the mail, INCREASE the dose. The current tablets you take are 10mg. The new tablets that will be delivered should be 25mg. You may take 2 tablets of the 10mg (for a total of 20mg daily) to use up your remaining supply before switching to the 25mg tablets. documented in this encounter [facility] 07-09-2022 Miscellaneous Notes Rec'd fax from [facility] patient assistance program. This says pt is approved from 07/09/22 to 06/29/2023 unless pts circumstances changes. documented in this encounter [facility] 06-20-2022 Miscellaneous Notes Sw and patient discussed Medicare Savings Programs ie. QMB,SLMB,QI.Discussed that this assistance is through JFS. QMB helps with Medicare Part B premium and deductible/copay. SLMB/QI assist with Part B premium only. There is also Medicaid that you can get with low income and your Medicare. Patient reports that she is confused about all the different Medicaid types and how they can help. SW tried to rephrase above for patient to better understand. Patient notes that it is still confusing. Sw provided patient with Medicaid Shared Services number [phone], to reach out to our area services to see about material that they could provide to patient regarding how Medicaid assistance works with Medicare. Karen noted that calling above number can be screened over the phone for Medicaid. Patient reports that she will call after the of the year as she is busy with the holidays. documented in this encounter [facility] 06-20-2022 History of Presen t illness Narrative Primary Care Pharmacy Visit CC (Reason for Consult): Diabetes Goal: A1c < 8% Collaborating Provider: Dr. Presley Last Provider Visit: 04/15/22 Steve Russell is a 76 year old female presenting for initial visit: This initial consult was conducted in person with the patient where the consult agreement was explained. The patient may decline or cancel the agreement at any time. After consideration, the patient consented to the pharmacy consult agreement and agreed to allow medications be collaboratively managed by a pharmacist. Patient is presenting today for initial pharmacotherapy management appointment for diabetes. Per consult notes, would like to get CGM but is not on insulin. Patient previously worked with PharmD - last appt on 08/22/21 and patient was since lost to f/up. At last PCP appt, no med changes made but patient referred to PharmD. Subjective: HPI: Patient not sure why she is here today. Says she is very interested in having CGM. Asking what Medicaid does that Medicare doesn't do, wondering if eligible. I'm poor. States her whole family has diabetes. Niece was diagnosed when an infant. I just don't eat properly. I just don't care. The older I get, the less I care. Thinks has had diabetes for 20+ years. Has BG supplies but doesn't test, it hurts. Usually testing on finger pads. Doesn't know what DM does in the body. Knows it has to do with carbs which is the only thing I like. Knows it can cause limb loss and blindness. Says she is completely out of money. Dog recently , it took all of her money for the month. Feet are numb, has been for a while. Energy level is poor. Wears diapers, not sure how often she urinates, does have incontinence. Has a lot of dry mouth and thirst. No issues with UTIs or yeast infections. Current DM Medications: Metformin ER 500mg tabs - 2000mg daily Glipizide XL 10mg daily Empagliflozin (Jardiance) 10mg daily Dulaglutide (Trulicity) 1.5mg weekly Current HTN Medications: None GLYCEMIC CONTROL: Glucometer present at visit: No, not checking because it hurts Hypoglycemia: none Preventative Medications: On BENEDICTO/ARB: No On Statin: Yes ROS: Patient denies CP, SOB, DAVIS, blurred vision, dizziness or lightheadedness Patient denies symptoms of hypoglycemia (sweating, anxiety, palpitations, hunger, and tremor) Patient denies symptoms of hyperglycemia (polyuria, polydipsia, polyphagia) Patient denies potential medication adverse effects DIET/EXERCISE/SOCIAL Hx: Not enough time to address MEDICATIONS: Pill bottles are not present Adherence: reports missed doses of meds about once per week Pharmacy: [facility] Rx coverage: [employer] Medicare, but will change on 2022 Affordability: no issues Diabetes supplies: not addressed Organization System: pill box ACTIVE PROBLEM LIST Obesity Esophageal Reflux Mixed Incontinence Urge and Stress (Male)(female) Benign Paroxysmal Positional Vertigo Tinnitus Abnormal Mammogram, Unspecified Hypothyroidism Hyperlipidemia, Unspecified Falls Frequently Weakness Dentures Complicating Chewing Uncontrolled Type 2 Diabetes Mellitus With Hyperglycemia (Hcc) Iron Deficiency Anemia B12 Deficiency PAST MEDICAL HISTORY Diagnosis Date Benign paroxysmal positional vertigo 03/04/2012 Blood in stool 2019 anemia Depressive disorder, not elsewhere classified 01/05/2007 Diaphragmatic hernia 2019 Esophageal reflux Moderate sized HH on CT 2011 Goiter, unspecified Irritable bowel syndrome Mixed incontinence urge and stress (male)(female) 08/04/2008 Obesity, unspecified 01/05/2007 Osteoarthrosis, unspecified whether generalized or localized, unspecified site Other and unspecified hyperlipidemia 01/05/2007 Tinnitus 03/04/2012 Type II or unspecified type diabetes mellitus without mention of complication, not stated as uncontrolled Unspecified hemorrhoids without mention of complication ALLERGIES Allergen Reactions Contrast Dye GI Upset pruritis and diarrhea CT contrast Effexor [Venlafaxin* Rash Chest broke out got real dizzy Fluoxetine Intolerance dry mouth Meclizine Mental Status Change, Other: See Comments Patient became extremely fatigued and was unable to walk after taking 12.5mg of meclizine Medication List Medication Directions Comments Action/Plan aspirin, enteric coated (ASPIRIN, ENTERIC COATED) 81 mg EC tablet Take 1 tablet by mouth once daily. will stop if any GI adverse effects Reports taking daily, says gets OTC atorvastatin (LIPITOR) 40 mg tablet Take 1 tablet by mouth every morning. Thinks taking but not on fill hx blood sugar diagnostic (BLOOD GLUCOSE TEST) test strip Test blood sugar(s) 2 times daily. Dx: Type 2 DM - Controlled E11.9 Insulin: No supplies COMPOUNDED PRESCRIPTION BLOOD PRESSURE CUFF FOR HOME USE. DX: R00.2, E11.65 supplies cyanocobalamin (VITAMIN B-12) 1,000 mcg tab Take 1 tablet by mouth once daily. Not taking that she recalls though on med list dulaglutide (TRULICITY) 1.5 mg/0.5 mL pen injector Inject 1.5 mg subcutaneously one time a week. Reports taking on Mondays, through PAP empagliflozin (JARDIANCE) 10 mg tablet Take 1 tablet by mouth daily with breakfast. Taking daily, through [facility] escitalopram oxalate (LEXAPRO) 10 mg tablet Take 1 tablet by mouth once daily. Reports it was never delivered by pharmacy (though dispense hx shows it was dispensed) Advised her to review pill bottles at home ferrous sulfate 325 mg (65 mg iron) tablet Take 1 tablet by mouth twice daily with meals. Patient taking differently: Take 325 mg by mouth every Friday,Friday,Friday. Gets OTC daily Updated med list glipiZIDE (GLUCOTROL XL) 10mg 24 hr tablet Take 1 tablet by mouth once daily. Thinks taking but not on external fill hx Lancets lancets Test blood sugar(s) 2 daily. Dx: E11.9 Insulin: No supplies levothyroxine (SYNTHROID) 50 mcg tablet Take 1 tablet by mouth five times a week AND 1.5 tablets two times a week. Reports taking 1 tab daily though not on fill hx Updated med list metFORMIN ER (GLUCOPHAGE XR) 500 mg 24 hr tablet Take 4 tablets by mouth once daily. Taking as directed; confirmed with external fill hx pantoprazole DR (PROTONIX) 40 mg tablet Take 1 tablet by mouth daily before breakfast. Take on empty stomach, 1/2 hr before meal. Taking daily; confirmed with external fill hx Rx meds not listed in EPIC: none OTCs: none Herbals: none Objective: Exam: Last 3 Encounter BP Readings: Date: BP: 04/15/2022 104/72 12/11/2021 120/68 08/13/2021 112/64 Wt: 67.1 kg (148 lb) BMI: 29.89 kg/(m^2) LABS: Reviewed Lab Results Component Value Date HBA1C 11.9 04/03/2022 HBA1C 10.0 12/06/2021 HBA1C 10.3 08/08/2021 HBA1C 9.2 12/25/2020 HBA1C 8.7 09/21/2020 CMP: Glucose 230 04/03/2022 BUN 18 04/03/2022 Creatinine 0.77 04/03/2022 Sodium 138 04/03/2022 Potassium 4.3 04/03/2022 Chloride 102 04/03/2022 CO2 25 04/03/2022 Protein, Total 7.4 04/03/2022 Albumin 4.3 04/03/2022 Calcium 9.8 04/03/2022 Alkaline Phosphatase 158 04/03/2022 Bilirubin, Total 0.8 04/03/2022 AST 53 04/03/2022 ALT 41 04/03/2022 eGFR 79 (per CMP 04/03/22) Lab Results Component Value Date CHOL 140 12/06/2021 CHOL 142 09/21/2020 LDL 73 12/06/2021 LDL 66 09/21/2020 HDL 36 12/06/2021 HDL 40 09/21/2020 TG 153 12/06/2021 TG 178 09/21/2020 The 10-year ASCVD risk score (Claritza JACKSON, et al., 2019) is: 26% Values used to calculate the score: Age: 76 years Sex: Female Is Non- : No Diabetic: Yes Tobacco smoker: No Systolic Blood Pressure: 104 mmHg Is BP treated: No HDL Cholesterol: 36 mg/dL Total Cholesterol: 140 mg/dL Albumin/Creat Ratio (mg/g) Date Value 08/08/2021 Not calculated PHARMACOTHERAPY ASSESSMENT/PLAN: 1. Controlled type 2 diabetes mellitus without complication, without long-term current use of insulin ([facility]) - ICD9: 250.00, ICD10: E11.9 (primary diagnosis) A1c goal < 8%; uncontrolled (last A1c 11.9%); no SMBG log to review, not checking; experiencing sx hyperglycemia (low energy, polyuria/incontinence, neuropathy, polydipsia); patient desires CGM though doesn't qualify through Medicare since not on insulin and not having issues with low blood sugars; medication adherence is questionable, uncertain how often she is taking everything appropriately; will not make med changes today but will encourage occasional SMBG and making sure taking all meds daily as prescribed; much education about DM provided; gets Jardiance and Trulicity through PAP and tolerating well --> will order higher doses with 2022 application; renal fxn and LFTs sufficient for use CONTINUE metformin ER 2000mg daily, glipizide XL 10mg daily, Jardiance 10mg daily, and Trulicity 1.5mg weekly Will submit PAP paperwork for Jardiance 25mg and Trulicity 3mg for 2022 Ensure taking all meds as prescribed Diabetic Education given re: disease pathology, signs of high blood sugar, risks of poor control, diabetic diet, need for an annual foot exam and daily foot checks, and timing for home glucose monitoring Requested checking FBG 2-3x/week. Advised using side of fingertips instead of the pad. Provided [employer] booklets for review ACEi/ARB for renal protection: no, not indicated Statin: yes, LFTs sufficient HbA1c: due 07/04/22 (ordered, requested getting labwork in mid-June prior to next PharmD visit) 2. Medication management - ICD9: V58.69, ICD10: Z79.899 Reviewed all medications, indications, dosing, frequency, administration with patient. Medication list updated as described above. Adherence: medication adherence is questionable per external fill hx (only meds filled since January are escitalopram (which patient reports never receiving), metformin, and pantoprazole. Patient reports taking all meds daily, maybe missing once per week. Has pill box but not using consistently. Patient thinks she is taking all of her meds daily though admits maybe she is missing some doses Advised to go home and review all pill bottles and med list. Fill pill box according to med list to ensure taking all Rx meds as prescribed. Reviewed med list, [facility] should have sufficient active refills on file Patient does report taking levothyroxine 50mcg daily instead of what is prescribed. Last thyroid levels were WNL. Advised to continue with levothyroxine 50mcg daily and will suggest that PCP order repeat thyroid hormone levels with next round of dosing in June Patient advised to bring in all medications for brown bag med review at f/up appt Financial resources: Patient wants to know if qualifies for Medicaid - will consult PCSW - PRIMARY CARE SOCIAL WORK CONSULT Follow-up Patient is scheduled to see PCP team on 08/13/22. Patient to have f/up with PharmD team on 07/25/22. Patient verbalized understanding of instructions. Melony Delgado PharmD, [facility] Primary Care Clinical Pharmacist The majority of the pharmacy visit (> 50%) was spent counseling and/or coordinating care for the patient. interaction: face to face time was 65 minutes. documented in this encounter [facility] 06-20-2022 Instructions Melony Delgado RPh - 06/20/2022 11:00 AM EST Start checking your feet daily for cuts, scrapes, injury. Let doctor know right away if you notice any sign of infection. For next PharmD visit, please bring in all of your medications for review. Start checking your fasting blood sugar 2-3 times per week. Please write the numbers down and bring your blood sugar log and your meter to your next visit with me. Please go home and organize your medications. Make sure you are taking all of your prescription medications on your med list as prescribed. Use your pill box if it makes it easier. Let our office know if you need refills. documented in this encounter [facility] 05-30-2022 Miscellaneous Notes PAP technicians completed PAP application. PCP portion placed on PCP's desk. Will get patient's signatures at upcoming appt on 06/20. Melony Delgado PharmD, [facility] Primary Care Clinical Pharmacist documented in this encounter [facility] 05-17-2022 Miscellaneous Notes Patient has been identified by name and date of : Yes Last office visit in this department: Visit date not found RX INSTRUCTIONS: Patient aware RX will be sent to pharmacy. No need to notify patient. Patient phones requesting refills as follows: Requested Prescriptions No prescriptions requested or ordered in this encounter Please review and advise. Quyen Ramos documented in this encounter [facility] 04-29-2022 Miscellaneous Notes Patient recently referred by PCP to [facility] for DM mngt Called patient to schedule initial appt Unable to reach patient, no dialtone when calling. 3rd outreach attempt for patient, will plan to send letter. Melony Delgado PharmD, [facility] Primary Care Clinical Pharmacist Marjorie EZIO Malcolm [facility] documented in this encounter [facility] 04-16-2022 Miscellaneous Notes Telephoned the patient to schedule a new Primary Care pharmacy appt. Unable to leave a message. Phone saying the call did not go through. documented in this encounter [facility] 01-09-2022 Instructions Harsha Ortiz MD - 01/09/2022 10:56 AM EDT Images from the original note were not included. documented in this encounter [facility] 01-09-2022 History of Presen t illness Narrative Assessment and Plan 1. Nuclear senile cataract of both eyes 2. Cortical age-related cataract of both eyes -visually significant but patient still feels functional 3. Type 2 diabetes mellitus without retinopathy (HCC) -no diabetic retinopathy both eyes Plan: -Continue blood sugar and blood pressure control -discussed cataracts - would like to hold off on surgery -follow-up 6-12 months with dilated fundus exam both eyes / sooner as needed I have confirmed and edited as necessary the relevant ophthalmic history, ROS, and the neuro exam findings as obtained by others. I have seen and examined Steve Russell. I have discussed the case and the management of this patient's care with the Resident/Fellow, if applicable. I also have reviewed and agree with the assessment and plan as stated above and agree with all of its relevant components. Harsha Ortiz MD documented in this encounter [facility] 12-11-2021 History of Presen t illness Narrative This note was created using OpenDoorriter. Subjective Steve Russell is a 76 year old female. Patient presents with: Follow Up SUBJECTIVE: Steve Russell is a 76 year old year old lady here today for 4 month follow up appointment for review of medical conditions. Just [place] snot feel well. Better last week when was cool.. Taking iron one pill once daily. Lately had kidney stones. Has had since 13 years old off and on. Just pushes fluids at home. Has not followed with urologist. Wears adult diapers; cost and leaking noted. States that diet and not eating well contributes to high sugars. Has old dogs that takes care of . PAST MEDICAL HISTORY Diagnosis Date Benign paroxysmal positional vertigo 03/04/2012 Blood in stool 2018 anemia Depressive disorder, not elsewhere classified 01/05/2007 Diaphragmatic hernia 2018 Esophageal reflux Moderate sized HH on CT 2011 Goiter, unspecified Irritable bowel syndrome Mixed incontinence urge and stress (male)(female) 08/04/2008 Obesity, unspecified 01/05/2007 Osteoarthrosis, unspecified whether generalized or localized, unspecified site Other and unspecified hyperlipidemia 01/05/2007 Tinnitus 03/04/2012 Type II or unspecified type diabetes mellitus without mention of complication, not stated as uncontrolled Unspecified hemorrhoids without mention of complication Current Outpatient Medications Medication Sig dulaglutide (TRULICITY) 1.5 mg/0.5 mL pen injector Inject 1.5 mg subcutaneously one time a week. levothyroxine (SYNTHROID) 50 mcg tablet Take 1 tablet by mouth five times a week AND 1.5 tablets two times a week. glipiZIDE (GLUCOTROL XL) 10mg 24 hr tablet Take 1 tablet by mouth once daily. aspirin, enteric coated (ASPIRIN, ENTERIC COATED) 81 mg EC tablet Take 1 tablet by mouth once daily. will stop if any GI adverse effects atorvastatin (LIPITOR) 40 mg tablet Take 1 tablet by mouth every morning. blood sugar diagnostic (BLOOD GLUCOSE TEST) test strip Test blood sugar(s) 2 times daily. Dx: Type 2 DM - Controlled E11.9 Insulin: No empagliflozin (JARDIANCE) 10 mg tablet Take 1 tablet by mouth daily with breakfast. escitalopram oxalate (LEXAPRO) 10 mg tablet Take 1 tablet by mouth once daily. ferrous sulfate 325 mg (65 mg iron) tablet Take 1 tablet by mouth twice daily with meals. Lancets lancets Test blood sugar(s) 2 daily. Dx: E11.9 Insulin: No metFORMIN ER (GLUCOPHAGE XR) 500 mg 24 hr tablet Take 4 tablets by mouth once daily. pantoprazole DR (PROTONIX) 40 mg tablet Take 1 tablet by mouth daily before breakfast. Take on empty stomach, 1/2 hr before meal. COMPOUNDED PRESCRIPTION BLOOD PRESSURE CUFF FOR HOME USE. DX: R00.2, E11.65 No current facility-administered medications for this visit. Review of Systems Objective BP 120/68 Pulse 96 Wt 68.9 kg (152 lb) SpO2 97% BMI 30.70 kg/m Physical Exam Component Latest Ref Rng & Units 12/25/2020 12/06/2021 Protein, Total 6.3 - 8.0 g/dL 7.1 7.2 Albumin 3.9 - 4.9 g/dL 4.3 4.4 Calcium 8.5 - 10.2 mg/dL 9.5 9.6 Bilirubin, Total 0.2 - 1.3 mg/dL 0.4 0.5 Alkaline Phosphatase 34 - 123 U/L 90 103 AST 13 - 35 U/L 45 (H) 45 (H) Glucose 74 - 99 mg/dL 171 (H) 277 (H) BUN 7 - 21 mg/dL 22 (H) 17 Creatinine 0.58 - 0.96 mg/dL 0.76 0.69 Sodium 136 - 144 mmol/L 140 137 Potassium 3.7 - 5.1 mmol/L 4.7 4.9 Chloride 97 - 105 mmol/L 107 (H) 103 CO2 22 - 30 mmol/L 21 (L) 24 Anion Gap 9 - 18 mmol/L 12 10 ALT 7 - 38 U/L 29 22 eGFR- >60 eGFR-All Other Races . >60 eGFR >=60 mL/min/1.73m 89 WBC 3.70 - 11.00 k/uL 5.20 5.34 RBC 3.90 - 5.20 m/uL 3.73 (L) 3.87 (L) Hemoglobin 11.5 - 15.5 g/dL 9.4 (L) 10.7 (L) Hematocrit 36.0 - 46.0 % 32.1 (L) 36.2 MCV 80.0 - 100.0 fL 86.1 93.5 MCH 26.0 - 34.0 pg 25.2 (L) 27.6 MCHC 30.5 - 36.0 g/dL 29.3 (L) 29.6 (L) RDW-CV 11.5 - 15.0 % 16.0 (H) 16.6 (H) Platelet Count 150 - 400 k/uL 251 224 MPV 9.0 - 12.7 fL 11.5 11.5 Absolute nRBC <0.01 k/uL <0.01 <0.01 Cholesterol, Total <200 mg/dL 140 Triglyceride <150 mg/dL 153 (H) HDL Cholesterol >39 mg/dL 36 (L) Non HDL Cholesterol <130 mg/dL 104 Fasting Time hrs 12 VLDL Cholesterol <30 mg/dL 31 (H) TC:HDL Ratio <5.10 3.89 LDL Cholesterol <100 mg/dL 73 LDL:HDL Ratio <2.54 2.03 Iron 41 - 186 ug/dL 27 (L) 36 (L) TIBC 232 - 386 ug/dL 413 (H) 405 (H) Transferrin Saturation 15 - 57 % 7 (L) 9 (L) Hemoglobin A1C 4.3 - 5.6 % 9.2 (H) 10.0 (H) Estimated Average Glucose mg/dL 217 240 TSH 0.270 - 4.200 mIU/L 2.550 3.430 Free T4 0.9 - 1.7 ng/dL 1.2 1.2 Vitamin B12 232-1,245 pg/mL 379 270 Folate >4.7 ng/mL 18.7 Ferritin 14.7 - 205.1 ng/mL 17.1 28.9 Assessment and Plan Encounter Diagnosis ICD-10-CM 1. Uncontrolled type 2 diabetes mellitus with hyperglycemia (HCC) E11.65 COMP METABOLIC PANEL HGB A1C 2. Recurrent kidney stones N20.0 3. Esophageal reflux K21.[address] (PROTONIX) 40 mg tablet more than twice a week 4. Depression, unspecified depression type F32.A 5. Hyperlipidemia, unspecified hyperlipidemia type E78.5 atorvastatin (LIPITOR) 40 mg tablet 6. Acquired hypothyroidism E03.9 TSH BLD T4 FREE/FREE THYROX 7. B12 deficiency E53.8 VITAMIN B12 BLOOD 8. Encounter for long-term current use of medication Z79.899 9. Iron deficiency anemia, unspecified iron deficiency anemia type D50.9 CBC IRON + TIBC ASSESSMENT/PLAN: 1. Uncontrolled type 2 diabetes mellitus with hyperglycemia (HCC) - ICD9: 250.02, ICD10: E11.65 (primary diagnosis) poorly controlled - Continue current medications - Needs to keep working on diet and exercise with lifestyle changes for effective weight loss as well as control of DM, and control of BP and lipids. - COMP METABOLIC PANEL - HGB A1C 2. Recurrent kidney stones - ICD9: 592.0, ICD10: N20.0 Continue present management. 3. Esophageal reflux - ICD9: 530.81, ICD10: K21.9 - PANTOPRAZOLE 40 MG TABLET,DELAYED RELEASE 4. Depression, unspecified depression type - ICD9: 311, ICD10: F32.A Emotional support given. Continue present management. Further evaluation and treatment as indicated. 5. Hyperlipidemia, unspecified hyperlipidemia type - ICD9: 272.4, ICD10: E78.5 - good control - Continue current medication. - ATORVASTATIN 40 MG TABLET 6. Acquired hypothyroidism - ICD9: 244.9, ICD10: E03.9 - Instructed patient on importance of taking on an empty stomach either first thing in the morning or at bedtime. Continue present management. - TSH BLD - T4 FREE/FREE THYROX 7. B12 deficiency - ICD9: 266.2, ICD10: E53.8 Low normal range. - VITAMIN B12 BLOOD 8. . Iron deficiency anemia, unspecified iron deficiency anemia type - ICD9: 280.9, ICD10: D50.9 Continue present management. - CBC - IRON + TIBC Peter Presley MD documented in this encounter [facility] 09-24-2021 Miscellaneous Notes This encounter was opened in error. @[email or web address]@ documented in this encounter [facility] documented as of this encounter (statuses as of 03/31/2023) [facility] History of Past illness Narrative* Problem Noted Date Diagnosed Date Resolved Date Uncontrolled type 2 diabetes mellitus with hyperglycemia 08/13/2021 03/31/2023 Uncontrolled type 2 diabetes mellitus without complication, without long-term current use of insulin 01/25/2016 08/20/2018 HYPOTHYROIDISM NOS 03/24/2007 5 DIABETES MELLITUS TYPE II-UNCOMPL 01/05/2007 04/02/2015 Depressive disorder, not elsewhere classified 01/06/2004/02/2015 HYPERLIPIDEMIA NEC/NOS 01/05/200704/02 documented as of this encounter (statuses as of 04/22/2023) [facility] History of Past illness Narrative* Problem Noted Date Resolved Date Uncontrolled type 2 diabetes mellitus without complication, without long-term current use of insulin 01/25/2016 08/20/2018 HYPOTHYROIDISM NOS 03/24/2007 04/02/2015 DIABETES MELLITUS TYPE II-UNCOMPL 01/05/2007 04/02/2015 Depressive disorder, not elsewhere classified 04/02/2015 HYPERLIPIDEMIA NEC/NOS 01/05/2007 5 documented as of this encounter (statuses as of 09/24/2021) [facility] History of Past illness Narrative* Problem Noted Date Resolved Date Uncontrolled type 2 diabetes mellitus without complication, without long-term current use of insulin 01/25/2016 08/20/2018 HYPOTHYROIDISM NOS 03/24/2007 04/02/2015 DIABETES MELLITUS TYPE II-UNCOMPL 01/05/2007 04/02/2015 Depressive disorder, not elsewhere classified 04/02/2015 HYPERLIPIDEMIA NEC/NOS 01/05/2007 5 documented as of this encounter (statuses as of 01/09/2022) [facility] History of Past illness Narrative* Problem Noted Date Resolved Date Uncontrolled type 2 diabetes mellitus without complication, without long-term current use of insulin 01/25/2016 08/20/2018 HYPOTHYROIDISM NOS 03/24/2007 04/02/2015 DIABETES MELLITUS TYPE II-UNCOMPL 01/05/2007 04/02/2015 Depressive disorder, not elsewhere classified 04/02/2015 HYPERLIPIDEMIA NEC/NOS 01/05/2007 5 documented as of this encounter (statuses as of 02/02/2022) [facility] History of Past illness Narrative* Problem Noted Date Resolved Date Uncontrolled type 2 diabetes mellitus without complication, without long-term current use of insulin 01/25/2016 08/20/2018 HYPOTHYROIDISM NOS 03/24/2007 04/02/2015 DIABETES MELLITUS TYPE II-UNCOMPL 01/05/2007 04/02/2015 Depressive disorder, not elsewhere classified 04/02/2015 HYPERLIPIDEMIA NEC/NOS 01/05/2007 5 documented as of this encounter (statuses as of 04/16/2022) [facility] History of Past illness Narrative* Problem Noted Date Resolved Date Uncontrolled type 2 diabetes mellitus without complication, without long-term current use of insulin 01/25/2016 08/20/2018 HYPOTHYROIDISM NOS 03/24/2007 04/02/2015 DIABETES MELLITUS TYPE II-UNCOMPL 01/05/2007 04/02/2015 Depressive disorder, not elsewhere classified 04/02/2015 HYPERLIPIDEMIA NEC/NOS 01/05/2007 5 documented as of this encounter (statuses as of 04/29/2022) [facility] History of Past illness Narrative* Problem Noted Date Resolved Date Uncontrolled type 2 diabetes mellitus without complication, without long-term current use of insulin 01/25/2016 08/20/2018 HYPOTHYROIDISM NOS 03/24/2007 04/02/2015 DIABETES MELLITUS TYPE II-UNCOMPL 01/05/2007 04/02/2015 Depressive disorder, not elsewhere classified 04/02/2015 HYPERLIPIDEMIA NEC/NOS 01/05/2007 5 documented as of this encounter (statuses as of 05/17/2022) [facility] History of Past illness Narrative* Problem Noted Date Resolved Date Uncontrolled type 2 diabetes mellitus without complication, without long-term current use of insulin 01/25/2016 08/20/2018 HYPOTHYROIDISM NOS 03/24/2007 04/02/2015 DIABETES MELLITUS TYPE II-UNCOMPL 01/05/2007 04/02/2015 Depressive disorder, not elsewhere classified 04/02/2015 HYPERLIPIDEMIA NEC/NOS 01/05/2007 5 documented as of this encounter (statuses as of 05/30/2022) [facility] History of Past illness Narrative* Problem Noted Date Resolved Date Uncontrolled type 2 diabetes mellitus without complication, without long-term current use of insulin 01/25/2016 08/20/2018 HYPOTHYROIDISM NOS 03/24/2007 04/02/2015 DIABETES MELLITUS TYPE II-UNCOMPL 01/05/2007 04/02/2015 Depressive disorder, not elsewhere classified 04/02/2015 HYPERLIPIDEMIA NEC/NOS 01/05/2007 5 documented as of this encounter (statuses as of 06/21/2022) [facility] History of Past illness Narrative* Problem Noted Date Resolved Date Uncontrolled type 2 diabetes mellitus without complication, without long-term current use of insulin 01/25/2016 08/20/2018 HYPOTHYROIDISM NOS 03/24/2007 04/02/2015 DIABETES MELLITUS TYPE II-UNCOMPL 01/05/2007 04/02/2015 Depressive disorder, not elsewhere classified 04/02/2015 HYPERLIPIDEMIA NEC/NOS 01/05/2007 5 documented as of this encounter (statuses as of 06/21/2022) [facility] History of Past illness Narrative* Problem Noted Date Resolved Date Uncontrolled type 2 diabetes mellitus without complication, without long-term current use of insulin 01/25/2016 08/20/2018 HYPOTHYROIDISM NOS 03/24/2007 04/02/2015 DIABETES MELLITUS TYPE II-UNCOMPL 01/05/2007 04/02/2015 Depressive disorder, not elsewhere classified 04/02/2015 HYPERLIPIDEMIA NEC/NOS 01/05/2007 5 documented as of this encounter (statuses as of 07/09/2022) [facility] History of Past illness Narrative* Problem Noted Date Resolved Date Uncontrolled type 2 diabetes mellitus without complication, without long-term current use of insulin 01/25/2016 08/20/2018 HYPOTHYROIDISM NOS 03/24/2007 04/02/2015 DIABETES MELLITUS TYPE II-UNCOMPL 01/05/2007 04/02/2015 Depressive disorder, not elsewhere classified 04/02/2015 HYPERLIPIDEMIA NEC/NOS 01/05/2007 5 documented as of this encounter (statuses as of 07/25/2022) [facility] History of Past illness Narrative* Problem Noted Date Resolved Date Uncontrolled type 2 diabetes mellitus without complication, without long-term current use of insulin 01/25/2016 08/20/2018 HYPOTHYROIDISM NOS 03/24/2007 04/02/2015 DIABETES MELLITUS TYPE II-UNCOMPL 01/05/2007 04/02/2015 Depressive disorder, not elsewhere classified 04/02/2015 HYPERLIPIDEMIA NEC/NOS 01/05/2007 5 documented as of this encounter (statuses as of 09/12/2022) [facility] History of Past illness Narrative* Problem Noted Date Resolved Date Uncontrolled type 2 diabetes mellitus without complication, without long-term current use of insulin 01/25/2016 08/20/2018 HYPOTHYROIDISM NOS 03/24/2007 04/02/2015 DIABETES MELLITUS TYPE II-UNCOMPL 01/05/2007 04/02/2015 Depressive disorder, not elsewhere classified 04/02/2015 HYPERLIPIDEMIA NEC/NOS 01/05/2007 5 documented as of this encounter (statuses as of 09/12/2022) [facility] History of Past illness Narrative* Problem Noted Date Diagnosed Date Resolved Date Uncontrolled type 2 diabetes mellitus without complication, without long-term current use of insulin 01/25/2016 08/20/2018 HYPOTHYROIDISM NOS 03/24/2007 5 DIABETES MELLITUS TYPE II-UNCOMPL 01/05/2007 04/02/2015 Depressive disorder, not elsewhere classified 01/06/20 07 04/02/2015 HYPERLIPIDEMIA NEC/NOS 01/05/200704/02 documented as of this encounter (statuses as of 02/13/2023) [facility] History of Past illness Narrative* Problem Noted Date Diagnosed Date Resolved Date Uncontrolled type 2 diabetes mellitus without complication, without long-term current use of insulin 01/25/2016 08/20/2018 HYPOTHYROIDISM NOS 03/24/2007 5 DIABETES MELLITUS TYPE II-UNCOMPL 01/05/2007 04/02/2015 Depressive disorder, not elsewhere classified 01/06/20 07 04/02/2015 HYPERLIPIDEMIA NEC/NOS 01/05/200704/02 documented as of this encounter (statuses as of 03/05/2023) [facility] OPENED IN ERROR- Primary To allow closing an encounter opened in error (used in SmartSet) [facility] Diagnosis Combined forms of age-related cataract of both eyes- Primary Other and combined forms of senile cataract Type 2 diabetes mellitus without retinopathy (HCC) Type II or unspecified type diabetes mellitus without mention of complication, not stated as uncontrolled [id number] corneal dystrophy of both eyes documented in this encounter [facility] note* Diagnosis Uncontrolled type 2 diabetes mellitus with hyperglycemia (HCC)- Primary Recurrent kidney stones Calculus of kidney Esophageal reflux Depression, unspecified depression type Hyperlipidemia, unspecified hyperlipidemia type Acquired hypothyroidism Unspecified hypothyroidism B12 deficiency Other B-complex deficiencies Encounter for long-term current use of medication Iron deficiency anemia, unspecified iron deficiency anemia type documented in this encounter [facility] note* Diagnosis Esophageal reflux Persistent depressive disorder documented in this encounter [facility] note* Diagnosis Controlled type 2 diabetes mellitus without complication, without long-term current use of insulin (HCC)- Primary Medication management Encounter for long-term (current) use of other medications documented in this encounter [facility] note* Diagnosis Type 2 diabetes mellitus without complication, without long-term current use of insulin (HCC)- Primary Medication management Encounter for long-term (current) use of other medications documented in this encounter [facility] note* Diagnosis Medication management- Primary Encounter for long-term (current) use of other medications Type 2 diabetes mellitus without complication, without long-term current use of insulin (HCC) Hyperlipidemia, unspecified hyperlipidemia type documented in this encounter [facility] note* Diagnosis Esophageal reflux Persistent depressive disorder Acquired hypothyroidism Unspecified hypothyroidism documented in this encounter [facility] note* Diagnosis Acquired hypothyroidism- Primary Unspecified hypothyroidism B12 deficiency Other B-complex deficiencies Hyperlipidemia, unspecified hyperlipidemia type Iron deficiency anemia, unspecified iron deficiency anemia type Uncontrolled type 2 diabetes mellitus with hyperglycemia (HCC) documented in this encounter [facility] note* Diagnosis Acquired hypothyroidism- Primary Unspecified hypothyroidism Type 2 diabetes mellitus without complication, without long-term current use of insulin (HCC) Iron deficiency anemia, unspecified iron deficiency anemia type B12 deficiency Other B-complex deficiencies Vitamin D deficiency Unspecified vitamin D deficiency Encounter for long-term current use of medication documented in this encounter [facility] Summary Purpose Family History No Family History Records FoundNo Family History Records Found Advance Directives No Advanced Directives Records FoundDocuments on File Type Date Recorded Patient [place] [employer] Back Feeder Expl anation Advance Directive(s) Medications Administered Section Active Administered Medications - up to 3 most recent administrations Medication Order MAR Action Action Date Dose Rate Site fluorescein-benoxinate 0.25-0.4 % 1 Drop (FLURESS) 1 Drop, BOTH EYES, DIRECTED, Starting on Fri01/09/22 at 1000, Until Fri01/09/22 at 2158, Administer for applanation tonometry. In the event of a Fluress shortage, administer [place]-Fluor 1 drop into both eyes as directed for applanation tonometry Given 01/09/2022 10:00 AM EDT 1 Drop PHENYLephrine 2.5 % 1 Drop (AK-DILATE, TJ-SYNEPHRINE) 1 Drop, BOTH EYES, DIRECTED, Starting on Fri01/09/22 at 1000, Until Fri01/09/22 at 2158, Administer for dilation PROTECT FROM LIGHT Given 01/09/2022 10:00 AM EDT 1 Drop tropicamide 1 % 1 Drop (MYDRIACYL) 1 Drop, BOTH EYES, DIRECTED, Starting on Fri01/09/22 at 1000, Until Fri01/09/22 at 2158, Administer for dilation Given 01/09/2022 10:00 AM EDT 1 Drop Additional Source Comments INFORMATION SOURCE (unrecogn ized section and content) DATE CREATED AUTHOR AUTHOR'S ORGANIZ ATION 07/18/2023 [facility] Source Comments (unrecognize d section and content) In the event this informatio n is protected by the Federal Confidentiality of Alcohol and Drug Abuse Patient Records regulations: The Federal rules restrict any use of the information to criminally investigate or prosecute any alcohol or drug abuse patient.[facility] the event this information is protected by the Federal Confidentiality of Alcohol and Drug Abuse Patient Records regulations: The Federal rules restrict any use of the information to criminally investigate or prosecute any alcohol or drug abuse patient.[facility] the event this information is protected by the Federal Confidentiality of Alcohol and Drug Abuse Patient Records regulations: The Federal rules restrict any use of the information to criminally investigate or prosecute any alcohol or drug abuse patient.[facility] the event this information is protected by the Federal Confidentiality of Alcohol and Drug Abuse Patient Records regulations: The Federal rules restrict any use of the information to criminally investigate or prosecute any alcohol or drug abuse patient.[facility] the event this information is protected by the Federal Confidentiality of Alcohol and Drug Abuse Patient Records regulations: The Federal rules restrict any use of the information to criminally investigate or prosecute any alcohol or drug abuse patient.[facility] the event this information is protected by the Federal Confidentiality of Alcohol and Drug Abuse Patient Records regulations: The Federal rules restrict any use of the information to criminally investigate or prosecute any alcohol or drug abuse patient.[facility] the event this information is protected by the Federal Confidentiality of Alcohol and Drug Abuse Patient Records regulations: The Federal rules restrict any use of the information to criminally investigate or prosecute any alcohol or drug abuse patient.[facility] the event this information is protected by the Federal Confidentiality of Alcohol and Drug Abuse Patient Records regulations: The Federal rules restrict any use of the information to criminally investigate or prosecute any alcohol or drug abuse patient.[facility] the event this information is protected by the Federal Confidentiality of Alcohol and Drug Abuse Patient Records regulations: The Federal rules restrict any use of the information to criminally investigate or prosecute any alcohol or drug abuse patient.[facility] the event this information is protected by the Federal Confidentiality of Alcohol and Drug Abuse Patient Records regulations: The Federal rules restrict any use of the information to criminally investigate or prosecute any alcohol or drug abuse patient.[facility] the event this information is protected by the Federal Confidentiality of Alcohol and Drug Abuse Patient Records regulations: The Federal rules restrict any use of the information to criminally investigate or prosecute any alcohol or drug abuse patient.[facility] the event this information is protected by the Federal Confidentiality of Alcohol and Drug Abuse Patient Records regulations: The Federal rules restrict any use of the information to criminally investigate or prosecute any alcohol or drug abuse patient.[facility] the event this information is protected by the Federal Confidentiality of Alcohol and Drug Abuse Patient Records regulations: The Federal rules restrict any use of the information to criminally investigate or prosecute any alcohol or drug abuse patient.[facility] the event this information is protected by the Federal Confidentiality of Alcohol and Drug Abuse Patient Records regulations: The Federal rules restrict any use of the information to criminally investigate or prosecute any alcohol or drug abuse patient.[facility] the event this information is protected by the Federal Confidentiality of Alcohol and Drug Abuse Patient Records regulations: The Federal rules restrict any use of the information to criminally investigate or prosecute any alcohol or drug abuse patient.[facility] the event this information is protected by the Federal Confidentiality of Alcohol and Drug Abuse Patient Records regulations: The Federal rules restrict any use of the information to criminally investigate or prosecute any alcohol or drug abuse patient.[facility] the event this information is protected by the Federal Confidentiality of Alcohol and Drug Abuse Patient Records regulations: The Federal rules restrict any use of the information to criminally investigate or prosecute any alcohol or drug abuse patient.[facility] Reason for Visit (unrecogniz ed section and content) Reason Comments Diabetes Reason Comments Follow Up Reason Comments Primary Care Pharmacy Appt. Reason Comments Appointment Reason Onset Date Comments Refill Request 05/17/2022 Reason Comments Forms Trulicity PAP Applic ation renewal 2022 Reason Comments Social Work Services Reason Comments pt assistance approval Reason Comments Med Management Diabetes Reason Comments Adherence Packaging Reason Comments Patient Update Reason Comments 4 month follow up Labs prior Reason Comments pt assistance forms Care Teams (unrecognized sec tion and content) Customer Service Supervisor Relationship Specialty Start Date End Date Peter Presley MD [address] [facility] [place] [address] PCP - General 03/24/07 [facility] [address] [facility] [place] [address] Pharmacist Pharmacy 02/26/19 Customer Service Supervisor Relationship Specialty Start Date End Date Peter Presley MD [address] [facility] [place] [address] PCP - General 03/24/07 [facility] [address] [facility] [place] [address] Pharmacist Pharmacy 02/26/19 Customer Service Supervisor Relationship Specialty Start Date End Date Peter Presley MD [address] [facility] [place] [address] PCP - General 03/24/07 [facility] [address] [facility] [place] [address] Pharmacist Pharmacy 02/26/19 Customer Service Supervisor Relationship Specialty Start Date End Date Peter Presley MD [address] [facility] [place] [address] PCP - General 03/24/07 Customer Service Supervisor Relationship Specialty Start Date End Date Peter Presley MD [address] [facility] [place] [address] PCP - General 03/24/07 Customer Service Supervisor Relationship Specialty Start Date End Date Peter Presley MD [address] [facility] [place] [address] PCP - General 03/24/07 [address] [place] [place] [address] [place] [address] Pharmacist Pharmacy 06/20/22 Customer Service Supervisor Relationship Specialty Start Date End Date Peter Presley MD [address] [place] [address] PCP - General 03/24/07 Melony Delgado, [place] [address] [place] [address] Pharmacist Pharmacy 06/20/22 Customer Service Supervisor Relationship Specialty Start Date End Date Peter Presley MD [address] [place] [address] PCP - General 03/24/07 [place] [place] [address] [place] [address] Pharmacist Pharmacy 06/20/22 Customer Service Supervisor Relationship Specialty Start Date End Date Peter Presley MD [address] [place] [address] PCP - General 03/24/07 [place] [address] [place] [address] Pharmacist Pharmacy 06/20/22 Customer Service Supervisor Relationship Specialty Start Date End Date Peter Presley MD [address] [place] [address] PCP - General 03/24/07 [place] [address] [place] [address] Pharmacist Pharmacy 06/20/22 Customer Service Supervisor Relationship Specialty Start Date End Date Peter Presley MD [address] [place] [address] PCP - General 03/24/07 Danny, [place] [place] [address] [place] [address] Pharmacist Pharmacy 06/20/22 Customer Service Supervisor Relationship Specialty Start Date End Date Peter Presley MD [address] [place] [address] PCP - General 03/24/07 [place] [place] [place] [address] [place] [address] Pharmacist Pharmacy 06/20/22 Customer Service Supervisor Relationship Specialty Start Date End Date Peter Presley MD [address] [place] [address] PCP - General 03/24/07 [place] [address] [place] [address] Pharmacist Pharmacy 06/20/22 Customer Service Supervisor Relationship Specialty Start Date End Date Peter Presley MD [address] [place] [address] PCP - General 03/24/07 [place] [place] [address] [place] [address] Pharmacist Pharmacy 06/20/22 FOR RECORDS PERTAINING TO PATIENTS WHO ARE OR HAVE BEEN ENROLLED IN A CHEMICAL DEPENDENCY/SUBSTANCEABUSE PROGRAM, SOME INFORMATION MAY BE OMITTED. This clinical summary was aggregated from multiple sources. Caution should be exercised in using it in the provision of clinical care. This summary normalizes information from multiple sources, and as a consequence, information in this document may materially change the coding, format and clinical context of patient data. In addition, data may be omitted in some cases. CLINICAL DECISIONS SHOULD BE BASED ON THE PRIMARY CLINICAL RECORDS. [employer] [facility]. provides no warranty or guarantee of the accuracy or completeness of information in this document.
--- NOTE | 2023-08-09 12:30 | RAD_ITS ---
EXAM: XR CHEST, 1 VIEW CLINICAL INDICATION: cough TECHNIQUE: Frontal view of the chest. COMPARISON: No relevant prior studies available. FINDINGS: LUNGS AND PLEURAL SPACES: Unremarkable. No consolidation or edema. No pneumothorax. No effusion. HEART: Unremarkable. Cardiac silhouette not enlarged. MEDIASTINUM: Central airways and mediastinal contour are unremarkable. BONES/JOINTS: Unremarkable. No acute fracture. SOFT TISSUES: Unremarkable. RAD/Chest 1 View (Portable) IMPRESSION: No radiographic evidence of acute cardiopulmonary disease. Electronically Signed: Hai Cardenas MD at 12:41 EST ,
[2023-08-09 12:34] LABS: CPK Total, Creatine Kinase 42 U/L (26-192)
[2023-08-09 12:40] LABS: ALB/GLOB Ratio 0.8 RATIO (0.9-2.4); AST(SGOT) 53 U/L (15-37); Alanine Aminotransfer ALT/SGPT 42 U/L (13-56); Albumin, Serum 3.3 g/dL (3.2-5.0); Alkaline Phosphatase 186 U/L (45-117); Anion Gap 11 (5-15); BUN 17 mg/dL (7-18); BUN/Creat Ratio 22.3 RATIO (10-20); Calcium,Total 9.3 mg/dL (8.5-10.1); Chloride 97 mmol/L (98-107); Creatinine, Serum 0.76 mg/dL (0.55-1.02); EST Glomerular Filtration Rate 78 mL/min (>60); Est Glom Filt Rate - Afr Amer 94 mL/min (>60); Globulin 4.1 g/dL (2.2-4.2); Glucose 386 mg/dL (74-106); Protein, Total 7.4 g/dL (6.4-8.2); Sodium Level 133 mmol/L (136-145)
[2023-08-09 12:43] LABS: Color, Urine Yellow (Yellow); Glucose, Dipstick 1000 mg/dl (Normal); Leukocyte Esterase-Dipstick Negative /ul (Negative); Nitrite-Dipstick Negative (Negative); Occult Blood-Urine 10 /ul (Negative); Protein-Dipstick 15 mg/dl (Negative); Specific Gravity, Urine 1.015 (1.002-1.030); Urine Bilirubin Dipstick Negative (Negative); Urine Clarity Clear (Clear); Urine Urobilinogen Normal (Normal)
[2023-08-09 12:52] LABS: Ketone-Dipstick 150 mg/dl (Negative)
--- NOTE | 2023-08-09 13:59 | HP.PCM.HOS_ITS ---
HPI - General General Date of Admission: 08/09/23 Date of Service: 08/09/23 Chief Complaint: Failure to thrive HPI Narrative STEVE VIEIRA, is a 78 F with multiple comorbidities including hypothyroidism, diabetes mellitus type 2 who was brought to the emergency department by EMS. Patient son who is apparently out of town called EMS to go check up on the mom. Patient was found in squalid conditions. She did complain of progressive generalized weakness over the past 6 days. Patient denied any fall. In the emergency department patient was found to be unkempt. Diagnostic workup was consistent with dehydration decision was made to admit patient for subsequent inpatient workup [facility] Medical History Head injury Home Medications glipizide 5 mg tablet 20 mg PO DINNER 06/07/14 [History Last Taken Unknown] levothyroxine 50 mcg tablet 50 mcg PO DAILY 06/07/14 [History Last Taken Unknown] metformin 500 mg tablet,extended release 24 hr 2,000 mg PO BREAKFAST 06/07/14 [History Last Taken Unknown] pantoprazole 40 mg tablet,delayed release 40 mg PO BREAKFAST 06/07/14 [History Last Taken Unknown] aspirin 81 mg tablet,delayed release 81 mg PO DAILY@0800 05/28/19 [History Last Taken Unknown] atorvastatin 40 mg tablet 40 mg PO QHS 05/28/19 [History Last Taken Unknown] empagliflozin 10 mg tablet 10 mg PO DAILY 05/28/19 [History Last Taken Unknown] escitalopram oxalate 10 mg tablet 10 mg PO DAILY 05/28/19 [History Last Taken Unknown] ferrous gluconate 236 mg (27 mg iron) tablet 65 mg PO BID 05/28/19 [History Last Taken Unknown] Allergy/AdvReac Type Severity Reaction Status Date / Time venlafaxine HCl Allergy Rash Verified 08/09/23 11:14 [From Effexor] meclizine AdvReac Other Verified 08/09/23 11:14 Surgical History H/O: section History of cholecystectomy History of knee joint replacement Social History Smoking Status: Never smoker ROS ROS Narrative GENERAL: denies fever, chills, night sweats, weight loss, anorexia HEENT: denies headache, sinus congestion, or drainage, dysphagia RESPIRATORY: denies cough, sputum production, shortness of breath, dyspnea on exertion CARDIAC: denies chest pain, palpitations, orthopnea, PND GASTROINTESTINAL: denies abdominal pain, nausea, vomiting, melena, GENITOURINARY: denies dysuria, urgency, frequency, heamaturia EXTREMITY: denies swelling MUSCULOSKELETAL: denies current joint pain or tenderness NEUROLOGIC: denies focal numbness, weakness, tingling HEMATOLOGIC: denies easy bruising and/or hemorrhage INTEGUMENT: denies rashes PSYCHIATRIC: denies suicidal or homicidal ideation Vital Signs Vital Signs Vital Signs: 08/09/23 11:14 08/09/23 11:16 08/09/23 13:36 Temperature 96.8 F L Temperature Source Temporal Pulse Rate 89 76 Respiratory Rate 18 16 Respiratory Effort Normal Respiratory Pattern Normal Blood Pressure 117/64 115/65 Blood Pressure Mean 81 81 Pulse Ox 96 99 Oxygen Delivery Method Room Air Room Air Physical Exam Narrative GENERAL: Frail looking, unkempt HEENT: Atraumatic; normocephalic EYES; Anicteric, Normal Conjunctiva NECK; supple, normal thyroid, RESPIRATORY: Diminished to auscultation CARDIOVASCULAR: Regular S1 S2, GI: soft, normoactive bowel sounds, : No Renal angle tenderness; EXTREMITIES: No edema, no clubbing, MUSCULOSKELETAL: no muscle wasting NEURO: Awake; no lateralizing signs. SKIN: No Rash PSYCH; Flat affect Results Lab / Micro Data 08/09/23 11:25 08/09/23 11:25 Labs: Laboratory Results - last 24 hr 08/09/23 11:25: WBC 8.7, RBC 3.77 L, Hgb 8.6 L, Hct 30.4 L, MCV 80.6 L, MCH 22.8 L, MCHC 28.3 L, RDW Std Deviation 51.1 H, RDW Coeff of Nicholas 18.1 H, Plt Count 221, MPV 11.7, Immature Gran % (Auto) 0.800, Neut % (Auto) 76.1 H, Lymph % (Auto) 14.9 L, [place] % (Auto) 6.6, Eos % (Auto) 0.9, Baso % (Auto) 0.7, Absolute Neuts (auto) 6.6, Absolute Lymphs (auto) 1.29, Nucleated RBC % 0, Sodium 133 L, Potassium 4.0, Chloride 97 L, Carbon Dioxide 25.0, Anion Gap 11, BUN 17, Creatinine 0.76, Est GFR (MDRD) Af Amer 94, Est GFR (MDRD) Non-Af 78, BUN/Creatinine Ratio 22.3 H, Glucose 386 H, Calcium 9.3, Total Bilirubin 0.90, AST 53 H, ALT 42, Alkaline Phosphatase 186 H, Total Creatine Kinase 42, Total Protein 7.4, Albumin 3.3, Globulin 4.1, Albumin/Globulin Ratio 0.8 L, TSH 4.30 H 08/09/23 12:05: Urine Color Yellow, Urine Clarity Clear, Urine pH 5.0, Ur Specific Butler 1.015, Urine Protein 15 H, Urine Glucose (UA) 1000 H, Urine Ketones 150 A*, Urine Occult Blood 10 H, Urine Nitrite Negative, Urine Bilirubin Negative, Urine Urobilinogen Normal, Ur Leukocyte Esterase Negative, Urine RBC 0 SEEN, Urine WBC 0 SEEN, Ur Squamous Epith Cells 0 SEEN, Urine Bacteria 0 SEEN, Urine Mucus 0 SEEN Micro: Microbiology 08/09/23 12:00 Mucosa - Nose SARS-CoV-2, Influenza & RSV (PCR) - Final Imaging Radiology Impression Brain CT 08/09/23 11:50 IMPRESSION: 1. No CT evidence of intracranial bleeding, acute ischemic infarct or acute intracranial abnormality. 2. Chronic white matter changes in both cerebral hemispheres. 3. Interval resolution of small right frontal skull soft tissue scalp hematoma or compared to 09/21/2022. Electronically Signed: Hai Cardenas MD at 13:03 EST , Chest X-Ray 08/09/23 12:30 IMPRESSION: No radiographic evidence of acute cardiopulmonary disease. Electronically Signed: Hai Cardenas MD at 12:41 EST , Assessment & Plan Assessment/Plan (1) Adult failure to thrive: PLAN: Plan Patient is an 78-year-old female admitted with adult failure to thrive 1. Adult failure to thrive ? With failure to take care of oneself. Patient has been admitted to regular nursing floor requested for PT OT eval and social and political studies professor to assist with discharge planning 2. Dehydration ? Secondary to decreased oral intake patient started on IV fluid with subsequent monitoring of electrolyte 3. Hyponatremia ? Suspected to be secondary to hypovolemic hyponatremia on IV fluids with repeat BMP ordered for a.m. 4. Diabetes mellitus type 2 ? Patient presented with hyperglycemia 3 suspected noncompliance with medication. Patient placed on Accu-Cheks before meals and at bedtime, long- acting insulin as well as sliding scale coverage 5. Hypothyroidism - Patient is on levothyroxine home dose continued 6. Dyslipidemia -Patient is on statin therapy, continued at home dose 7. Anemia - Secondary to chronic disorder monitoring H&H and transfuse if patient becomes symptomatic or hemoglobin falls below 7. Patient is on oral iron discontinued 8. GERD ? On PPI 9. Depression ? Patient is on thyroid continue 10. DVT prophylaxis ? SC Lovenox Time spent in the patient's overall evaluation,decision-making process, review of diagnostic data, adjustment of management, discussion with other providers, nursing nursing and ancillary staff involved in patient's care documentation, 75 minutes Advance planning; did discuss with the patient Regarding advanced directives as well as CODE STATUS. Did explain the various scenarios involved ( FULL CODE, D NR CCA, DNR CCA with no intubation, and DNR CC and what each meant) patient elected remain full code with CPR and intubation if needed. Order was placed. Time spent on discussion 18 minutes. Charges/Coding Visit Charges Inpatient E&M: 25693 Init Hosp L3 Procedures Hospitalists Procedures: 00988 Advncd Care Plan 30 Min
--- OUTSIDE RECORDS SUMMARY | 2023-08-09 14:36 | XMS RPT_ITS | CCD ---
Author Name Unknown Address [address] [place] [address] Organization [facility] Care Team Providers Care Abstract Manager Name Role Phone Peter Presley MD Primary Care Provider [facility], Keti Unavailable Peter Presley MD Primary Care Provider Peter Presley MD Primary Care Provider [facility], Melony Unavailable TALAMPAS, PETER D Primary [...] [CONTRAST DYE] Drug Intolerance 4 GI Upset [facility] Work Phone: (18 sources) FLUoxetine; Translations: [FLUOXETINE] Drug Allergy 9 Intolerance [facility] Work Phone: (18 sources) Meclizine; Translations: [MECLIZINE] Drug Allergy 4 Mental Status Change, Other: See Comments [facility] Work Phone: (18 sources) venlafaxine; Translations: [VENLAFAXINE HCL] Drug Allergy 9 Rash [facility] Medications Current Medications Medication Drug Class(es) [...] (5 sources) Patient encounter status; Translations: [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] Episodic Other aftercare (2 sources) 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; Translations: [Encounter for long-term current use of medication] Onset: 09-12-2022 Episodic Other eye disorders (1 source) Epithelial basement membrane dystrophy; 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] Episodic Other [...] 97.81 [degF] Peter Presley MD Work Phone: [facility] 02-28-2023 14:23-0400 Body weight 64.86 kg Peter Presley MD Work Phone: [facility] 02-28-2023 14:23-0400 Diastolic blood pressure 65 mm[Hg] Peter Presley MD Work Phone: [facility] 02-28-2023 14:23-0400 Heart rate 115 /min Peter Presley MD Work Phone: [facility] 02-28-2023 14:23-0400 Respiratory rate 18 /min Peter Presley MD Work Phone: [facility] 02-28-2023 14:23-0400 SaO2% (BldA) [Mass fraction] 97 % Peter Presley MD Work Phone: [facility] 02-28-2023 14:23-0400 Systolic blood pressure 104 mm[Hg] Peter Presley MD Work Phone: [facility] 12-11-2021 14:27-0400 Body weight 68.95 kg Peter Presley MD Work Phone: [facility] 12-11-2021 14:27-0400 Diastolic blood pressure 68 mm[Hg] Peter Presley MD Work Phone: [facility] 12-11-2021 14:27-0400 Heart rate 96 /min Peter Presley MD Work Phone: [facility] 12-11-2021 14:27-0400 SaO2% (BldA) [Mass fraction] 97 % Peter Presley MD Work Phone: [facility] 12-11-2021 14:27-0400 Systolic blood pressure 120 mm[Hg] Peter Presley MD Work Phone: [facility] Encounters Encounter Date Encounter Type Care Provider Facility Start: 07-04-2023 End: 07-05-2023 ambulatory PETER PRESLEY Facility:[facility] Start: 04-21-2023 Telephone encounter Hayley Jimenez Navigation Procedures Date Procedure Procedure Detail Performing Clinician Start: 01-09-2022 IOL BIOMETRY W/ IOL CALC OU (BOTH EYES) Harsha Ortiz MD Work Phone: Start: 01-09-2022 End: 01-09-2022 Computerized ophthalmic imaging retina Harsha Ortiz MD Work Phone: Start: 08-13-2021 Adult depression scr eening assessment Erinvian Lopez [facility] Work Phone: Start: 03-20-2019 Electrocardiogram Plan of Treatment Date Care Activity Detail Author Start: 02-29-2024 ANNUAL PCP TEAM CHRONIC DISEASE VISIT ANNUAL PCP TEAM CHRONIC DISEASE VISIT [facility] Start: 02-14-2024 Hepatitis B screening URINE AL BUMIN:CREATININE RATIO [facility] Start: 02-14-2024 Hepatitis B surface antibody level LDL CHOLESTEROL [facility] Start: 2023 End: 08-30-2023 25-hydroxyvitamin D3 [Mass/volume] in Serum or Plasma VITAMIN D 25 HYDROXY Lab Routine Vitamin D deficiency Expected: 2023 (Approximate), Expires: 08/30/[address] [facility] Work Phone: Immunizations Immunization Date Immunization Notes Care Provider Martin spear 04-15-2022 COVID-19 booster vaccine, age 12+ yr, bivalent (PFIZER-BIONTTelemetryWeb) Ceci Mancilla [facility] 04-15-2022 influenza, high-dose , quadrivalent vaccine (FLUZONE HIGH DOSE QUADRIVALENT) Ceci Mancilla [facility] 04-15-2022 influenza virus vacc ine, unspecified formulation Peter Presley MD Work Phone: [facility] 05-18-2021 zoster vaccine recombinant Keti [facility] Work Phone: [facility] Work Phone: 03-15-2021 zoster vaccine recombinant [facility] Work Phone: [facility] Work Phone: 10-03-2020 COVID-19 vaccine, ag e 12+ yr (PFIZER-BIONTECH - PURPLE TOP) Keti [facility] Work Phone: [facility] Work Phone: 09-12-2020 COVID-19 vaccine, ag e 12+ yr (PFIZER-BIONTECH - PURPLE TOP) [facility] Work Phone: 03-28-2020 influenza, high-dose , quadrivalent vaccine (FLUZONE HIGH DOSE QUADRIVALENT) [facility] Work Phone: [facility] Work Phone: 03-31-2019 influenza, high dose seasonal, preservative-free Keti [facility] Work Phone: [facility] Work Phone: 02-27-2018 influenza, seasonal, injectable Keti [facility] Work Phone: [facility] Work Phone: 03-06-2017 influenza, high dose seasonal, preservative-[facility] Work Phone: [facility] 03-23-2016 influenza, high dose seasonal, preservative-free [facility] Work Phone: [facility] 03-15-2015 pneumococcal conjuga te vaccine, 13 valent [facility] Work Phone: [facility] 03-08-2015 influenza, seasonal, [facility] Work Phone: [facility] Work Phone: 03-05-2014 influenza, seasonal, injectable [facility] Work Phone: [facility] 05-21-2013 typhoid vaccine, unspecified formulation [facility] Work Phone: [facility] Work Phone: 05-03-2013 zoster vaccine, live Maciej Kilgore [facility] Work Phone: [facility] Work Phone: 04-08-2013 influenza virus vacc ine, unspecified formulation [facility] Work Phone: [facility] Work Phone: 04-05-2013 influenza virus vacc ine, unspecified formulation [facility] Work Phone: [facility] 03-22-2013 hepatitis A vaccine, unspecified formulation [facility] Work Phone: [facility] Work Phone: 03-04-2012 pneumococcal polysaccharide vaccine, 23 valent [facility] Work Phone: [facility] 02-24-2007 hepatitis A vaccine, adult dosage [facility] Work Phone: [facility] 02-24-2007 tetanus toxoid, redu cynthia diphtheria toxoid, and acellular pertussis vaccine, adsorbed [facility] Work Phone: [facility] 03-17-2000 measles, mumps and rubella virus vaccine [facility] Work Phone: [facility] Payers Date Payer Category Payer Medicare [id number] 2021 Medicare AETNA MEDICARE A ETNA MEDICARE PPO [id number] 2021-Present [phone] [address] [place] [address] O [id number] 2021 Medicare [id number] Social History Date Type Detail Facility Start: 11-29-2011 [facility] Work Phone: Start: 08-22-2021 End: 02-28-2023 Alcohol intake Current non-drinker of alcohol (finding) [facility] Start: 08-30-2019 History SDOH Alcohol Frequency 1 [facility] Start: 08-30-2019 History SDOH Social Connections Phone 4 [facility] Start: 08-30-2019 History SDOH Social Connections Get Together 2 [facility] Start: 08-30-2019 History SDOH Physica l Activity DPW 0 [facility] Start: 08-30-2019 History SDOH Financial 3 [facility] Start: 08-30-2019 Education 17 [facility] Start: 1945 Sex Assigned At Not on file [facility] Start: 12-30-2021 End: 04-15-2022 Exposure to SARS-CoV-2 (event) Not sure [facility] Start: 11-29-2011 Tobacco use and exposure Smoke less tobacco non-user [facility] Start: 08-30-2019 End: 02-28-2023 History of Social function Reading [facility] Start: 08-30-2019 End: 02-28-2023 Social connection and isolation panel [facility] Do you belong to any clubs or organizations such as jainism groups, unions, fraternal or athletic groups, or school groups? No [facility] Are you now , , , , never or living with a partner? [facility] How often to you hav e a drink containing alcohol? Never [facility] Average Number of Drinks Not on file [facility] Work Phone: How hard is it for y ou to pay for the very basics like food, housing, medical care, and heating Somewhat hard [facility] Do you feel stress - tense, restless, nervous, or anxious, or unable to sleep at night because your mind is troubled all the time - these days [OSQ] Only a little [facility] (I/We) worried wheth er (my/our) food would run out before (I/we) got money to buy more. Never true [facility] Medical Equipment Procedure Code Equipment Code Equipment Origin al Text Equipment Identifier Dates Mrkr 8ga Site Mt mrk Brstbio - [id number] Start: 02-22-2013 Start: 01-10-2021 Clinical Notes 01-25-2016 to 06-16-2023 Telephone Encounter - Renetta Foster LPN - 04/22/2023 1:40 PM EDTTelephone Encounter - Hayley Che MSW - 04/21/2023 10:20 AM EDTPatient Peter Martinez MD - 02/28/2023 2:54 PM EDT Note Date & Type Note Facility 06-16-2023 Note Patient Outreach (AM BPHARMSVC) STEVE RUSSELL ([id number]) 1945 F Date Time Provider Department 06/16/23 MELONY DELGADO During your visit today, we recorded the following information about you: Gume (Occupational Therapist Aide)Sharon 07/17/2023 3:08 AM Signed This patient has been referred by pharmacy for [employer] patient assistance program informatics application analyst. Patient is currently enrolled in the patient assistance program through 2022. This encounter is for the program renewal through 2023. STATUS OF APPLICATION: Can be viewed under the encounter Additional Documentation > SmartForms: [facility] PATIENT ASSISTANCE Completed forms sent to the [employer] will be available under Scanned Documents in the patient's chart. The finalized form can be found under PAP_Medication Name_Complete. PAP Carbonizer Tester Team will submit and track progress on the completed PAP application. Please do NOT fax to [employer] unless directed by the PAP Carbonizer Tester Team. Please see SmartForm described above for specifics. Please DO NOT close this encounter. Sent to patient: Contacted patient to verify information for application. Sent to prescriber: Sent to prescriber. Confirmation Received. Sent to salesperson men[employer]: Allergies As of Date: 06/16/2023 Noted Allergy [...] by mouth daily with breakfast. Gets through [employer] PAP. - ferrous sulfate 325 mg [...] B12 deficiency [E53.8] 08/13/2021 Encounter Status:Closed by [employer] on 07/17/23 [facility] 04-22-2023 Miscellaneous Notes MILLA Rabago completed these. They have been faxed back to the company. Karen spoke with patient and verified that patient Jardiance medication is the only medication that she applies to [facility] for assistance. Karen will take forms to Dr. Presley office for prescription completion. documented in this encounter [facility] 03-05-2023 Miscellaneous Notes Sw spoke with patient in regards to [employer] and discount cab vouchers. Sw has updated brochures with transit cost and stops. Sw will mail [employer] brochures and [facility] Older Adult resource guide to patient home. [...] social service needs. documented in this encounter [facility] 02-28-2023 Note HNO ID: [id number] Author: Peter Presley MD Service: ? Author Type: Physician Type: Progress Notes Filed: 03/31/2023 12:27 AM Note Text: This note was created using alphacityguidester. Subjective Steve Russell is a 77 year [...] subcutaneously one time a week. Gets through [employer] PAP. empagliflozin (JARDIANCE) 25 mg tablet Take 1 tablet by mouth daily with breakfast. Gets through [employer] PAP. ferrous sulfate 325 mg (65 mg [...] Estimated Average Gluc (more content not included)... [facility] 02-28-2023 Instructions Peter Presley MD - 02/28/2023 3:12 PM EDT Start iron tablet over the counter 1 pill on Friday, Friday and Friday. Dose is up to you. documented in this encounter [facility] 02-28-2023 History of Presen t illness Narrative This note was created using [employer]. Subjective Steve Russell is a 77 year [...] by mouth daily with breakfast. Gets through [employer] PAP. ferrous sulfate 325 mg (65 [...] the date of the service which included [id number] patient care, completing clinical documentation, obtaining and/or reviewing separately obtained history, performing a medically appropriate examination, counseling and educating the patient/family/caregiver, and ordering medications, tests, or procedures. Peter Presley MD documented in this encounter [facility] 02-13-2023 Miscellaneous Notes Left detailed vm informing patient of lab orders. Filed order Patient asking for lab orders to be completed prior to 02/28/23 appt. Radha Lea MA documented in this encounter [facility] 09-12-2022 Note HNO ID: [id number] Author: Melony Delgado [facility] Service: ? Author Type: Pharmacist Type: [...] [facility]. Said her new pharmacy is [facility] - needs all meds sent to [facility]. Feels overwhelmed with meds. Has meds at various places in her house. Has been out of [facility] emeds for a long time, uncertain how [...] changed insurance; thinks [facility] preferred Rx coverage: [facility] Medicare Affordability: no issues Diabetes supplies: not [...] night if can't sleep. Denies any hx IA/stroke. Denies GI issues though problem list indicates [...] list dulaglutide (TRULIC (more content not included)... [facility] 09-12-2022 Miscellaneous Notes During PharmD visit today, it was noted patient has NOT been taking many of her medications. Patient would benefit greatly from adherence packaging. The following prescriptions need sent to [facility] and are pended for PCP/BUTTON INSPECTOR's signature: Requested Prescriptions Pending Prescriptions Disp Refills [...] if clinically indicated. Thanks! Melony Delgado PharmD, [facility] Primary Care Clinical Pharmacist documented in this encounter [facility] 09-12-2022 History of Presen t illness [...] in her house. Has been out of [facility] emeds for a long time, uncertain how [...] changed insurance; thinks [facility] preferred Rx coverage: [facility] Medicare Affordability: no issues Diabetes supplies: not [...] night if can't sleep. Denies any hx IA/stroke. Denies GI issues though problem list indicates [...] by mouth daily with breakfast. Gets through [employer] PAP. Has Jardiance 10mg tablets. Taking [...] -- ran out of the 10mg tabs; Declaras tasneem completed for 25mg tabs --> PharmD [...] benefit greatly from adherence packaging. PharmD called [facility] to see if they accept patient's insurance and community development technician believes it would be accepted. PharmD provided patient info and insurance information. Will have all prescriptions sent to [facility] through their adherence packaging and mail delivery service Patient due for labwork. Requested she have drawn in the next 1-2 weeks, she was agreeable to doing so. 2. Type 2 diabetes mellitus without complication, without long-term current use of insulin ([facility]) - ICD9: 250.00, ICD10: E11.9 A1c goal [...] verbalized understanding of instructions. Melony Delgado, Eliseo, [facility] Primary Care Clinical Pharmacist The majority of the pharmacy visit (> 50%) was spent counseling and/or coordinating care for the patient. interaction: telephonic time was 90 minutes. documented in this encounter [facility] 07-25-2022 Note HNO ID: [id number] Author: Melony Delgado RPh Service: ? Author [...] modifications and med adherence encouraged. Consult to [facility] to see if qualifies for Medicaid. Subjective: [...] to do counseling. Received a shipment of [email or web address] today. 3mg dose. Not sure how much [...] sleeping in [facility]acy[facility] Rx coverage: [facility] Medicare Affordability: no issues Diabetes supplies: not [...] mg tablet T (more content not included)... [facility] 07-25-2022 History of Presen t illness [...] modifications and med adherence encouraged. Consult to [facility] to see if qualifies for Medicaid. Subjective: [...] sleeping in Pharmacy: [facility] Rx coverage: [facility] Medicare Affordability: no issues Diabetes supplies: not [...] complication, without long-term current use of insulin ([facility]) - ICD9: 250.00, ICD10: E11.9 A1c goal [...] verbalized understanding of instructions. Melony Delgado PharmD, [facility] Primary Care Clinical Pharmacist The majority of the pharmacy visit (> 50%) was spent counseling and/or coordinating care for the patient. interaction: face to face time was 45 minutes. documented in this encounter [facility] 07-25-2022 Instructions Melony Delgado RPh - 07/25/2022 2:30 PM EST Call Medicaid Shared Services number [phone], to reach out to our area services [...] the 25mg tablets. documented in this encounter [facility] 07-09-2022 Miscellaneous Notes Rec'd fax from [facility] patient assistance program. This says pt is approved from 07/09/22 to 06/29/2023 unless pts circumstances changes. documented in this encounter [facility] 06-20-2022 Miscellaneous Notes Sw and patient [...] provided patient with Medicaid Shared Services number [phone], to reach out to our area services to see about material that they could provide to patient regarding how Medicaid assistance works with Medicare. Karen noted that calling above number can be screened over the phone for Medicaid. Patient reports that she will call after the of the year as she is busy with the holidays. documented in this encounter [facility] 06-20-2022 History of Presen t illness [...] complication, without long-term current use of insulin ([facility]) - ICD9: 250.00, ICD10: E11.9 (primary diagnosis) [...] verbalized understanding of instructions. Melony Delgado PharmD, [facility] Primary Care Clinical Pharmacist The majority of the pharmacy visit (> 50%) was spent counseling and/or coordinating care for the patient. interaction: face to face time was 65 minutes. documented in this encounter [facility] 06-20-2022 Instructions Melony Delgado RPh - [...] you need refills. documented in this encounter [facility] 05-30-2022 Miscellaneous Notes PAP technicians completed PAP application. PCP portion placed on PCP's desk. Will get patient's signatures at upcoming appt on 06/20. Melony Delgado PharmD, [facility] Primary Care Clinical Pharmacist documented in this encounter [facility] 05-17-2022 Miscellaneous Notes Patient has been [...] advise. Quyen Ramos documented in this encounter [facility] 04-29-2022 Miscellaneous Notes Patient recently referred by PCP to [facility] for DM mngt Called patient to schedule initial appt Unable to reach patient, no dialtone when calling. 3rd outreach attempt for patient, will plan to send letter. Melony Delgado PharmD, [facility] Primary Care Clinical Pharmacist Marjorie EZIO Malcolm [facility] documented in this encounter [facility] 04-16-2022 Miscellaneous Notes Telephoned the patient to schedule a new Primary Care pharmacy appt. Unable to leave a message. Phone saying the call did not go through. documented in this encounter [facility] 01-09-2022 Instructions Harsha Ortiz MD - 01/09/2022 10:56 AM EDT Images from the original note were not included. documented in this encounter [facility] 01-09-2022 History of Presen t illness [...] Harsha Ortiz MD documented in this encounter [facility] 12-11-2021 History of Presen t illness Narrative This note was created using [employer]. Subjective Steve Russell is a 76 year [...] Peter Presley MD documented in this encounter [facility] 09-24-2021 Miscellaneous Notes This encounter was opened in error. @[email or web address]@ documented in this encounter [facility] documented as of this encounter (statuses as of 03/31/2023) [facility] History of Past illness Narrative* Problem [...] of this encounter (statuses as of 04/22/2023) [facility] History of Past illness Narrative* Problem Noted Date Resolved Date Uncontrolled type 2 diabetes mellitus without complication, without long-term current use of insulin 01/25/2016 08/20/2018 HYPOTHYROIDISM NOS 03/24/2007 04/02/2015 DIABETES MELLITUS TYPE II-UNCOMPL 01/05/2007 04/02/2015 Depressive disorder, not elsewhere classified 04/02/2015 HYPERLIPIDEMIA NEC/NOS 01/05/2007 5 documented as of this encounter (statuses as of 09/24/2021) [facility] History of Past illness Narrative* Problem Noted Date Resolved Date Uncontrolled type 2 diabetes mellitus without complication, without long-term current use of insulin 01/25/2016 08/20/2018 HYPOTHYROIDISM NOS 03/24/2007 04/02/2015 DIABETES MELLITUS TYPE II-UNCOMPL 01/05/2007 04/02/2015 Depressive disorder, not elsewhere classified 04/02/2015 HYPERLIPIDEMIA NEC/NOS 01/05/2007 5 documented as of this encounter (statuses as of 01/09/2022) [facility] History of Past illness Narrative* Problem Noted Date Resolved Date Uncontrolled type 2 diabetes mellitus without complication, without long-term current use of insulin 01/25/2016 08/20/2018 HYPOTHYROIDISM NOS 03/24/2007 04/02/2015 DIABETES MELLITUS TYPE II-UNCOMPL 01/05/2007 04/02/2015 Depressive disorder, not elsewhere classified 04/02/2015 HYPERLIPIDEMIA NEC/NOS 01/05/2007 5 documented as of this encounter (statuses as of 02/02/2022) [facility] History of Past illness Narrative* Problem Noted Date Resolved Date Uncontrolled type 2 diabetes mellitus without complication, without long-term current use of insulin 01/25/2016 08/20/2018 HYPOTHYROIDISM NOS 03/24/2007 04/02/2015 DIABETES MELLITUS TYPE II-UNCOMPL 01/05/2007 04/02/2015 Depressive disorder, not elsewhere classified 04/02/2015 HYPERLIPIDEMIA NEC/NOS 01/05/2007 5 documented as of this encounter (statuses as of 04/16/2022) [facility] History of Past illness Narrative* Problem Noted Date Resolved Date Uncontrolled type 2 diabetes mellitus without complication, without long-term current use of insulin 01/25/2016 08/20/2018 HYPOTHYROIDISM NOS 03/24/2007 04/02/2015 DIABETES MELLITUS TYPE II-UNCOMPL 01/05/2007 04/02/2015 Depressive disorder, not elsewhere classified 04/02/2015 HYPERLIPIDEMIA NEC/NOS 01/05/2007 5 documented as of this encounter (statuses as of 04/29/2022) [facility] History of Past illness Narrative* Problem Noted Date Resolved Date Uncontrolled type 2 diabetes mellitus without complication, without long-term current use of insulin 01/25/2016 08/20/2018 HYPOTHYROIDISM NOS 03/24/2007 04/02/2015 DIABETES MELLITUS TYPE II-UNCOMPL 01/05/2007 04/02/2015 Depressive disorder, not elsewhere classified 04/02/2015 HYPERLIPIDEMIA NEC/NOS 01/05/2007 5 documented as of this encounter (statuses as of 05/17/2022) [facility] History of Past illness Narrative* Problem Noted Date Resolved Date Uncontrolled type 2 diabetes mellitus without complication, without long-term current use of insulin 01/25/2016 08/20/2018 HYPOTHYROIDISM NOS 03/24/2007 04/02/2015 DIABETES MELLITUS TYPE II-UNCOMPL 01/05/2007 04/02/2015 Depressive disorder, not elsewhere classified 04/02/2015 HYPERLIPIDEMIA NEC/NOS 01/05/2007 5 documented as of this encounter (statuses as of 05/30/2022) [facility] History of Past illness Narrative* Problem Noted Date Resolved Date Uncontrolled type 2 diabetes mellitus without complication, without long-term current use of insulin 01/25/2016 08/20/2018 HYPOTHYROIDISM NOS 03/24/2007 04/02/2015 DIABETES MELLITUS TYPE II-UNCOMPL 01/05/2007 04/02/2015 Depressive disorder, not elsewhere classified 04/02/2015 HYPERLIPIDEMIA NEC/NOS 01/05/2007 5 documented as of this encounter (statuses as of 06/21/2022) [facility] History of Past illness Narrative* Problem Noted Date Resolved Date Uncontrolled type 2 diabetes mellitus without complication, without long-term current use of insulin 01/25/2016 08/20/2018 HYPOTHYROIDISM NOS 03/24/2007 04/02/2015 DIABETES MELLITUS TYPE II-UNCOMPL 01/05/2007 04/02/2015 Depressive disorder, not elsewhere classified 04/02/2015 HYPERLIPIDEMIA NEC/NOS 01/05/2007 5 documented as of this encounter (statuses as of 06/21/2022) [facility] History of Past illness Narrative* Problem Noted Date Resolved Date Uncontrolled type 2 diabetes mellitus without complication, without long-term current use of insulin 01/25/2016 08/20/2018 HYPOTHYROIDISM NOS 03/24/2007 04/02/2015 DIABETES MELLITUS TYPE II-UNCOMPL 01/05/2007 04/02/2015 Depressive disorder, not elsewhere classified 04/02/2015 HYPERLIPIDEMIA NEC/NOS 01/05/2007 5 documented as of this encounter (statuses as of 07/09/2022) [facility] History of Past illness Narrative* Problem Noted Date Resolved Date Uncontrolled type 2 diabetes mellitus without complication, without long-term current use of insulin 01/25/2016 08/20/2018 HYPOTHYROIDISM NOS 03/24/2007 04/02/2015 DIABETES MELLITUS TYPE II-UNCOMPL 01/05/2007 04/02/2015 Depressive disorder, not elsewhere classified 04/02/2015 HYPERLIPIDEMIA NEC/NOS 01/05/2007 5 documented as of this encounter (statuses as of 07/25/2022) [facility] History of Past illness Narrative* Problem Noted Date Resolved Date Uncontrolled type 2 diabetes mellitus without complication, without long-term current use of insulin 01/25/2016 08/20/2018 HYPOTHYROIDISM NOS 03/24/2007 04/02/2015 DIABETES MELLITUS TYPE II-UNCOMPL 01/05/2007 04/02/2015 Depressive disorder, not elsewhere classified 04/02/2015 HYPERLIPIDEMIA NEC/NOS 01/05/2007 5 documented as of this encounter (statuses as of 09/12/2022) [facility] History of Past illness Narrative* Problem Noted Date Resolved Date Uncontrolled type 2 diabetes mellitus without complication, without long-term current use of insulin 01/25/2016 08/20/2018 HYPOTHYROIDISM NOS 03/24/2007 04/02/2015 DIABETES MELLITUS TYPE II-UNCOMPL 01/05/2007 04/02/2015 Depressive disorder, not elsewhere classified 04/02/2015 HYPERLIPIDEMIA NEC/NOS 01/05/2007 5 documented as of this encounter (statuses as of 09/12/2022) [facility] History of Past illness Narrative* Problem Noted Date Diagnosed Date Resolved Date Uncontrolled type 2 diabetes mellitus without complication, without long-term current use of insulin 01/25/2016 08/20/2018 HYPOTHYROIDISM NOS 03/24/2007 5 DIABETES MELLITUS TYPE II-UNCOMPL 01/05/2007 04/02/2015 Depressive disorder, not elsewhere classified 01/06/20 07 04/02/2015 HYPERLIPIDEMIA NEC/NOS 01/05/200704/02 documented as of this encounter (statuses as of 02/13/2023) [facility] History of Past illness Narrative* Problem Noted Date Diagnosed Date Resolved Date Uncontrolled type 2 diabetes mellitus without complication, without long-term current use of insulin 01/25/2016 08/20/2018 HYPOTHYROIDISM NOS 03/24/2007 5 DIABETES MELLITUS TYPE II-UNCOMPL 01/05/2007 04/02/2015 Depressive disorder, not elsewhere classified 01/06/20 07 04/02/2015 HYPERLIPIDEMIA NEC/NOS 01/05/200704/02 documented as of this encounter (statuses as of 03/05/2023) [facility] Diagnosis OPENED IN ERROR- Primary To allow closing an encounter opened in error (used in SmartSet) [facility] Diagnosis Combined forms of age-related cataract of both eyes- Primary Other and combined forms of senile cataract Type 2 diabetes mellitus without retinopathy (HCC) Type II or unspecified type diabetes mellitus without mention of complication, not stated as uncontrolled [id number] corneal dystrophy of both eyes documented in this encounter [facility] note* Diagnosis Uncontrolled type 2 diabetes mellitus with hyperglycemia (HCC)- Primary Recurrent kidney stones Calculus of kidney Esophageal reflux Depression, unspecified depression type Hyperlipidemia, unspecified hyperlipidemia type Acquired hypothyroidism Unspecified hypothyroidism B12 deficiency Other B-complex deficiencies Encounter for long-term current use of medication Iron deficiency anemia, unspecified iron deficiency anemia type documented in this encounter [facility] note* Diagnosis Esophageal reflux Persistent depressive disorder documented in this encounter [facility] note* Diagnosis Controlled type 2 diabetes mellitus without complication, without long-term current use of insulin (HCC)- Primary Medication management Encounter for long-term (current) use of other medications documented in this encounter [facility] note* Diagnosis Type 2 diabetes mellitus without complication, without long-term current use of insulin (HCC)- Primary Medication management Encounter for long-term (current) use of other medications documented in this encounter [facility] note* Diagnosis Medication management- Primary Encounter for long-term (current) use of other medications Type 2 diabetes mellitus without complication, without long-term current use of insulin (HCC) Hyperlipidemia, unspecified hyperlipidemia type documented in this encounter [facility] note* Diagnosis Esophageal reflux Persistent depressive disorder Acquired hypothyroidism Unspecified hypothyroidism documented in this encounter [facility] note* Diagnosis Acquired hypothyroidism- Primary Unspecified hypothyroidism B12 deficiency Other B-complex deficiencies Hyperlipidemia, unspecified hyperlipidemia type Iron deficiency anemia, unspecified iron deficiency anemia type Uncontrolled type 2 diabetes mellitus with hyperglycemia (HCC) documented in this encounter [facility] note* Diagnosis Acquired hypothyroidism- Primary Unspecified hypothyroidism Type 2 diabetes mellitus without complication, without long-term current use of insulin (HCC) Iron deficiency anemia, unspecified iron deficiency anemia type B12 deficiency Other B-complex deficiencies Vitamin D deficiency Unspecified vitamin D deficiency Encounter for long-term current use of medication documented in this encounter [facility] Summary Purpose Family History No Family History Records FoundNo Family History Records Found Advance Directives No Advanced Directives Records FoundDocuments on File Type Date Recorded Patient 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 In the event of a Fluress shortage, administer [place]-Fluor 1 drop into both eyes as directed [...] DATE CREATED AUTHOR AUTHOR'S ORGANIZ ATION 07/18/2023 [facility] Source Comments (unrecognize d section and content) In the event this informatio n is protected by the Federal Confidentiality of Alcohol and Drug Abuse Patient Records regulations: The Federal rules restrict any use of the information to criminally investigate or prosecute any alcohol or drug abuse patient.[facility] the event this information is protected by the Federal Confidentiality of Alcohol and Drug Abuse Patient Records regulations: The Federal rules restrict any use of the information to criminally investigate or prosecute any alcohol or drug abuse patient.[facility] the event this information is protected by the Federal Confidentiality of Alcohol and Drug Abuse Patient Records regulations: The Federal rules restrict any use of the information to criminally investigate or prosecute any alcohol or drug abuse patient.[facility] the event this information is protected by the Federal Confidentiality of Alcohol and Drug Abuse Patient Records regulations: The Federal rules restrict any use of the information to criminally investigate or prosecute any alcohol or drug abuse patient.[facility] the event this information is protected by the Federal Confidentiality of Alcohol and Drug Abuse Patient Records regulations: The Federal rules restrict any use of the information to criminally investigate or prosecute any alcohol or drug abuse patient.[facility] the event this information is protected by the Federal Confidentiality of Alcohol and Drug Abuse Patient Records regulations: The Federal rules restrict any use of the information to criminally investigate or prosecute any alcohol or drug abuse patient.[facility] the event this information is protected by the Federal Confidentiality of Alcohol and Drug Abuse Patient Records regulations: The Federal rules restrict any use of the information to criminally investigate or prosecute any alcohol or drug abuse patient.[facility] the event this information is protected by the Federal Confidentiality of Alcohol and Drug Abuse Patient Records regulations: The Federal rules restrict any use of the information to criminally investigate or prosecute any alcohol or drug abuse patient.[facility] the event this information is protected by the Federal Confidentiality of Alcohol and Drug Abuse Patient Records regulations: The Federal rules restrict any use of the information to criminally investigate or prosecute any alcohol or drug abuse patient.[facility] the event this information is protected by the Federal Confidentiality of Alcohol and Drug Abuse Patient Records regulations: The Federal rules restrict any use of the information to criminally investigate or prosecute any alcohol or drug abuse patient.[facility] the event this information is protected by the Federal Confidentiality of Alcohol and Drug Abuse Patient Records regulations: The Federal rules restrict any use of the information to criminally investigate or prosecute any alcohol or drug abuse patient.[facility] the event this information is protected by the Federal Confidentiality of Alcohol and Drug Abuse Patient Records regulations: The Federal rules restrict any use of the information to criminally investigate or prosecute any alcohol or drug abuse patient.[facility] the event this information is protected by the Federal Confidentiality of Alcohol and Drug Abuse Patient Records regulations: The Federal rules restrict any use of the information to criminally investigate or prosecute any alcohol or drug abuse patient.[facility] the event this information is protected by the Federal Confidentiality of Alcohol and Drug Abuse Patient Records regulations: The Federal rules restrict any use of the information to criminally investigate or prosecute any alcohol or drug abuse patient.[facility] the event this information is protected by the Federal Confidentiality of Alcohol and Drug Abuse Patient Records regulations: The Federal rules restrict any use of the information to criminally investigate or prosecute any alcohol or drug abuse patient.[facility] the event this information is protected by the Federal Confidentiality of Alcohol and Drug Abuse Patient Records regulations: The Federal rules restrict any use of the information to criminally investigate or prosecute any alcohol or drug abuse patient.[facility] the event this information is protected by the Federal Confidentiality of Alcohol and Drug Abuse Patient Records regulations: The Federal rules restrict any use of the information to criminally investigate or prosecute any alcohol or drug abuse patient.[facility] Reason for Visit (unrecogniz ed section [...] Care Teams (unrecognized sec tion and content) Abstract Manager Relationship Specialty Start Date End Date Peter Presley MD [address] [facility] [place] [address] PCP - General 03/24/07 [facility] [address] [place] [place] [address] Pharmacist Pharmacy 02/26/19 Abstract Manager Relationship Specialty Start Date End Date Peter Presley MD [address] [place] [place] [address] PCP - General 03/24/07 [facility] [address] [facility] [place] [address] Pharmacist Pharmacy 02/26/19 Abstract Manager Relationship Specialty Start Date End Date Peter Presley MD [address] [place] [place] [address] PCP - General 03/24/07 [facility] [address] [place] [address] Pharmacist Pharmacy 02/26/19 Abstract Manager Relationship Specialty Start Date End Date Peter Presley MD [address] [place] [place] [address] PCP - General 03/24/07 Abstract Manager Relationship Specialty Start Date End Date Peter Presley MD [address] [place] [address] PCP - General 03/24/07 Abstract Manager Relationship Specialty Start Date End Date Peter Presley MD [address] [place] [place] [address] PCP - General 03/24/07 [place] [address] [place] [address] Pharmacist Pharmacy 06/20/22 Abstract Manager Relationship Specialty Start Date End Date Peter Presley MD [address] [place] [address] PCP - General 03/24/07 Melony Delgado, [place] [address] [place] [address] Pharmacist Pharmacy 06/20/22 Abstract Manager Relationship Specialty Start Date End Date Peter Presley MD [address] [place] [address] PCP - General 03/24/07 [place] [address] [place] [address] Pharmacist Pharmacy 06/20/22 Abstract Manager Relationship Specialty Start Date End Date Peter Presley MD [address] [place] [address] PCP - General 03/24/07 [place] [address] [place] [address] Pharmacist Pharmacy 06/20/22 Abstract Manager Relationship Specialty Start Date End Date Peter Presley MD [address] [place] [address] PCP - General 03/24/07 [place] [address] [place] [address] Pharmacist Pharmacy 06/20/22 Abstract Manager Relationship Specialty Start Date End Date Peter Presley MD [address] [place] [address] PCP - General 03/24/07 Danny, [place] [address] [place] [address] Pharmacist Pharmacy 06/20/22 Abstract Manager Relationship Specialty Start Date End Date Peter Presley MD [address] [place] [address] PCP - General 03/24/07 [place] [address] [place] [address] Pharmacist Pharmacy 06/20/22 Abstract Manager Relationship Specialty Start Date End Date Peter Presley MD [address] [place] [address] PCP - General 03/24/07 [place] [address] [place] [address] Pharmacist Pharmacy 06/20/22 Abstract Manager Relationship Specialty Start Date End Date Peter Presley MD [address] [place] [address] PCP - General 03/24/07 [place] [address] [place] [address] Pharmacist Pharmacy 06/20/22 FOR RECORDS PERTAINING TO [...] BE BASED ON THE PRIMARY CLINICAL RECORDS. [employer] [facility]. provides no warranty or guarantee of the accuracy or completeness of information in this document.
[2023-08-09] MEDS: 0.9% Normal Saline (1000mL) 1,000 ML 125 ML IV (15:59)
[2023-08-09 16:36] LABS: Bedside Glucose 475 mg/dL (74-106)
[2023-08-09] MEDS: Insulin Glargine-YFGN 100 UNIT/ML Pen 10 UNIT SC (16:37)
[2023-08-09] MEDS: Insulin Lispro 100 UNIT/ML INSULN.PEN SC (16:37)
[2023-08-09] MEDS: Ferrous Gluconate 324 MG Tablet PO (17:12)
[2023-08-09] MEDS: Acetaminophen 325 MG Tablet 650 MG PO (22:04)
[2023-08-09] MEDS: Atorvastatin Calcium 40 MG Tablet PO (22:04)
[2023-08-09] MEDS: MELATONIN 3 MG TABLET PO (22:04)
[2023-08-09 22:31] LABS: Bedside Glucose > 500 mg/dL (74-106)
[2023-08-09 22:50] LABS: Glucose 570 mg/dL (74-106)
[2023-08-09] MEDS: Insulin Lispro 100 UNIT/ML INSULN.PEN 15 UNIT SC (23:20)
[2023-08-10 06:00] VITALS: BP 106/54; PULSE 76; RESP 16; TEMP 36.6; O2SAT 98
[2023-08-10] MEDS: Levothyroxine 50 MCG Tablet PO (06:19)
[2023-08-10] MEDS: Insulin Lispro 100 UNIT/ML INSULN.PEN SC ×2 (06:22→22:44)
[2023-08-10 06:38] LABS: Absolute Lymphocyte Count 0.98 X10^3/uL (0.83-4.51); Absolute Neutrophil Count 3.1 X10^3/uL (2.0-7.7); Basophil# 0.04 X10^3/uL; Basophil% 0.8 % (0-1); Eosinophil# 0.08 X10^3/uL; Eosinophils% 1.7 % (0-5); Hemoglobin 7.1 g/dL (12.0-15.0); Lymphocyte # 0.98 X10^3/ul (0.83-4.51); Lymphocyte % 20.6 % (19-41); Mean Corp Hgb Conc 27.3 g/dL (32-36); Mean Corpuscular Hgb 22.4 pg (27.0-32.0); Mean Platelet Vol. 11.8 fl (6.2-12.0); Monocyte# 0.46 X10^3/uL; Monocyte% 9.7 % (0-10); NRBC Flagged by Analyzer 0 % (0-5); Neutrophil # 3.13 X10^3/uL (2.7-7.7); Neutrophil % 65.9 % (47-70); Platelet Count 156 K/mm3 (150-450); RBC Distribution Width CV 18.3 % (11.6-14.6); RBC Distribution Width SD 52.3 fl (35.1-43.9); Red Blood Count 3.17 M/mm3 (4.2-5.4); White Blood Count 4.8 K/mm3 (4.4-11.0)
[2023-08-10 06:48] LABS: Bedside Glucose 318 mg/dL (74-106)
[2023-08-10 07:04] LABS: Anion Gap 7 (5-15); BUN 21 mg/dL (7-18); BUN/Creat Ratio 30.7 RATIO (10-20); Chloride 103 mmol/L (98-107); Creatinine, Serum 0.68 mg/dL (0.55-1.02); EST Glomerular Filtration Rate 88 mL/min (>60); Est Glom Filt Rate - Afr Amer 107 mL/min (>60); Estimated Creatinine Clearance 45.06 ml/min; Glucose 366 mg/dL (74-106); Magnesium 2.2 mg/dL (1.6-2.6); Phosphorus 2.6 mg/dL (2.5-4.9); Potassium 3.8 mmol/L (3.5-5.1); Sodium Level 135 mmol/L (136-145)
--- NOTE | 2023-08-10 07:15 | PCM.PN.HOSP ---
Reason for Visit Reason for Visit: Diagnoses Adult failure to thrive (08/09/23) Subjective Subjective Patient seen remains free of significant drop in patient hemoglobin level. Ordered iron studies as well as stool guaiac. Patient was on Lovenox for DVT prophylaxis discontinued Objective Data Objective Data Vital Signs: Vital Signs Temp Pulse Resp BP Pulse Ox O2 Del Method 97.9 F 76 16 106/54 L 98 Room Air 08/10/23 06:00 08/10/23 06:00 08/10/23 06:00 08/10/23 06:00 08/10/23 06:00 08/10/23 06:00 Oxygen Delivery Method Room Air Weight: 58.967 kg Body Mass Index (BMI) 26.2 Intake & Output: Intake and Output for Last 24 Hours 08/08/23 08/09/23 08/10/23 23:59 23:59 23:59 Intake Total 3489.58 / 3489.58 360 / 360 Output Total 800 / 800 Balance 3489.58 / 3489.58 -440 / -440 Lab / Micro Data 08/10/23 05:47 08/10/23 05:42 Labs: Laboratory Results - last 24 hr 08/09/23 11:25: WBC 8.7, RBC 3.77 L, Hgb 8.6 L, Hct 30.4 L, MCV 80.6 L, MCH 22.8 L, MCHC 28.3 L, RDW Std Deviation 51.1 H, RDW Coeff of Nicholas 18.1 H, Plt Count 221, MPV 11.7, Immature Gran % (Auto) 0.800, Neut % (Auto) 76.1 H, Lymph % (Auto) 14.9 L, [place] % (Auto) 6.6, Eos % (Auto) 0.9, Baso % (Auto) 0.7, Absolute Neuts (auto) 6.6, Absolute Lymphs (auto) 1.29, Nucleated RBC % 0, Sodium 133 L, Potassium 4.0, Chloride 97 L, Carbon Dioxide 25.0, Anion Gap 11, BUN 17, Creatinine 0.76, Est GFR (MDRD) Af Amer 94, Est GFR (MDRD) Non-Af 78, BUN/Creatinine Ratio 22.3 H, Glucose 386 H, Calcium 9.3, Total Bilirubin 0.90, AST 53 H, ALT 42, Alkaline Phosphatase 186 H, Total Creatine Kinase 42, Total Protein 7.4, Albumin 3.3, Globulin 4.1, Albumin/Globulin Ratio 0.8 L, TSH 4.30 H 08/09/23 12:05: Urine Color Yellow, Urine Clarity Clear, Urine pH 5.0, Ur Specific [place] 1.015, Urine Protein 15 H, Urine Glucose (UA) 1000 H, Urine Ketones 150 A*, Urine Occult Blood 10 H, Urine Nitrite Negative, Urine Bilirubin Negative, Urine Urobilinogen Normal, Ur Leukocyte Esterase Negative, Urine RBC 0 SEEN, Urine WBC 0 SEEN, Ur Squamous Epith Cells 0 SEEN, Urine Bacteria 0 SEEN, Urine Mucus 0 SEEN 08/09/23 15:58: POC Glucose 475 H* 08/09/23 22:01: POC Glucose > 500 H* 08/09/23 22:12: Glucose 570 H* 08/10/23 05:42: Sodium 135 L, Potassium 3.8, Chloride 103, Carbon Dioxide 25.0, Anion Gap 7, BUN 21 H, Creatinine 0.68, Estim Creat Clear Calc 45.06, Est GFR (MDRD) Af Amer 107, Est GFR (MDRD) Non-Af 88, BUN/Creatinine Ratio 30.7 H, Glucose 366 H, Calcium 9.0, Phosphorus 2.6, Magnesium 2.2 08/10/23 05:47: WBC 4.8, RBC 3.17 L, Hgb 7.1 L, Hct 26.0 L, MCV 82.0, MCH 22.4 L, MCHC 27.3 L, RDW Std Deviation 52.3 H, RDW Coeff of Nicholas 18.3 H, Plt Count 156, MPV 11.8, Immature Gran % (Auto) 1.300 H, Neut % (Auto) 65.9, Lymph % (Auto) 20.6, [place] % (Auto) 9.7, Eos % (Auto) 1.7, Baso % (Auto) 0.8, Absolute Neuts (auto) 3.1, Absolute Lymphs (auto) 0.98, Nucleated RBC % 0 08/10/23 06:22: POC Glucose 318 H Micro: Microbiology 08/09/23 12:00 Mucosa - Nose SARS-CoV-2, Influenza & RSV (PCR) - Final Radiography Diagnostic Testing: Radiology Impression Brain CT 08/09/23 11:50 IMPRESSION: 1. No CT evidence of intracranial bleeding, acute ischemic infarct or acute intracranial abnormality. 2. Chronic white matter changes in both cerebral hemispheres. 3. Interval resolution of small right frontal skull soft tissue scalp hematoma or compared to 09/21/2022. Electronically Signed: Hai Cardenas MD at 13:03 EST , Chest X-Ray 08/09/23 12:30 IMPRESSION: No radiographic evidence of acute cardiopulmonary disease. Electronically Signed: Hai Cardenas MD at 12:41 EST , Physical Exam Narrative GENERAL: Frail looking, unkempt HEENT: Atraumatic; normocephalic EYES; Anicteric, Normal Conjunctiva NECK; supple, normal thyroid, RESPIRATORY: Diminished to auscultation CARDIOVASCULAR: Regular S1 S2, GI: soft, normoactive bowel sounds, : No Renal angle tenderness; EXTREMITIES: No edema, no clubbing, MUSCULOSKELETAL: no muscle wasting NEURO: Awake; no lateralizing signs. SKIN: No Rash PSYCH; Flat affect Assessment & Plan Assessment/Plan (1) Adult failure to thrive: PLAN: Plan Patient is an 78-year-old female admitted with adult failure to thrive 1. Adult failure to thrive ? With failure to take care of oneself. Patient has been admitted to regular nursing floor requested for PT OT eval and director of social work to assist with discharge planning ? 08/10/2023 awaiting PT OT eval 2. Dehydration ? Secondary to decreased oral intake patient started on IV fluid with subsequent monitoring of electrolyte 3. Hyponatremia ? Suspected to be secondary to hypovolemic hyponatremia on IV fluids with repeat BMP ordered for a.m. 4. Diabetes mellitus type 2 ? Patient presented with hyperglycemia 3 suspected noncompliance with medication. Patient placed on Accu-Cheks before meals and at bedtime, long-acting insulin as well as sliding scale coverage 5. Hypothyroidism - Patient is on levothyroxine home dose continued 6. Dyslipidemia -Patient is on statin therapy, continued at home dose 7. Anemia - Secondary to chronic disorder monitoring H&H and transfuse if patient becomes symptomatic or hemoglobin falls below 7. Patient is on oral iron continued ? 08/10/2023 significant drop in patient hemoglobin level patient is on Lovenox for DVT prophylaxis this was discontinued, ordered iron studies as well as stool guaiac 8. GERD ? On PPI 9. Depression ? Patient is on thyroid continue 10. DVT prophylaxis ? SC Lovenox Time spent in the patient's overall evaluation,decision-making process, review of diagnostic data, adjustment of management, discussion with other providers, nursing nursing and ancillary staff involved in patient's care documentation, 50 minutes Charges/Coding Visit Charges Inpatient E&M: [id number] [facility] L3
[2023-08-10 07:34] LABS: Platelet Count 160 K/mm3 (150-450); RET-HE 26.1 pg (30-35); Reticulocyte Count 3.32 % (0.5-1.5)
[2023-08-10 07:48] LABS: Ferritin 20 ng/mL (8-252); Iron 25 ug/dL (50-170); Iron Binding Capacity,Total 368 ug/dL (250-450); PERCENT IRON SATURATION 6.8 % (15.0-55.0)
[2023-08-10] MEDS: Insulin Glargine-YFGN 100 UNIT/ML Pen 10 UNIT SC (08:21)
[2023-08-10] MEDS: Pantoprazole Sodium 40 MG Tablet PO (08:22)
[2023-08-10] MEDS: Escitalopram Oxalate 10 MG Tablet PO (08:22)
[2023-08-10] MEDS: Glucerna Shake 120 ML LIQUID PO ×4 (08:23→22:44)
[2023-08-10] MEDS: Flu Vacc QS2023-24(65YR UP)/PF 240 MCG/0.7 ML Syringe IM (08:29)
[2023-08-10 08:34] VITALS: BP 96/72; PULSE 79; RESP 16; TEMP 36.6; O2SAT 100
[2023-08-10] MEDS: 0.9% Normal Saline (1000mL) 1,000 ML 125 ML IV ×2 (11:32→19:36)
[2023-08-10] MEDS: Insulin Glargine-YFGN 100 UNIT/ML Pen 25 UNIT SC ×2 (11:33→16:11)
[2023-08-10] MEDS: Insulin Lispro 100 UNIT/ML INSULN.PEN 20 UNIT SC (11:33)
[2023-08-10 11:34] LABS: Bedside Glucose > 500 mg/dL (74-106)
[2023-08-10] MEDS: Ferrous Gluconate 324 MG Tablet PO ×2 (11:36→16:13)
[2023-08-10 11:41] VITALS: BP 121/98; PULSE 91; RESP 16; TEMP 36.6; O2SAT 95
[2023-08-10 14:38] VITALS: BP 96/51; PULSE 91; RESP 16; TEMP 36.5; O2SAT 100
[2023-08-10] MEDS: Insulin Lispro 100 UNIT/ML INSULN.PEN 25 UNIT SC (16:11)
[2023-08-10 17:06] LABS: Bedside Glucose > 500 mg/dL (74-106)
[2023-08-10 20:22] VITALS: BP 101/52; PULSE 85; RESP 16; TEMP 36.8; O2SAT 100
[2023-08-10] MEDS: Insulin Glargine-YFGN 100 UNIT/ML Pen 15 UNIT SC (22:44)
[2023-08-10] MEDS: Atorvastatin Calcium 40 MG Tablet PO (22:45)
[2023-08-10] MEDS: MELATONIN 3 MG TABLET PO (22:52)
[2023-08-10 23:12] LABS: Bedside Glucose 268 mg/dL (74-106)
[2023-08-11] VITALS (11 sets, daily range): BP systolic 108–142; BP diastolic 50–76; PULSE 72–92; RESP 16; TEMP 36.6–37.2; O2SAT 93–100
[2023-08-11] MEDS: Levothyroxine 50 MCG Tablet PO (06:03)
[2023-08-11] MEDS: Insulin Lispro 100 UNIT/ML INSULN.PEN SC ×4 (06:04→21:50)
[2023-08-11] MEDS: 0.9% Normal Saline (1000mL) 1,000 ML 125 ML IV ×3 (06:05→21:46)
[2023-08-11 06:09] LABS: Absolute Lymphocyte Count 0.99 X10^3/uL (0.83-4.51); Absolute Neutrophil Count 3.2 X10^3/uL (2.0-7.7); Basophil# 0.02 X10^3/uL; Basophil% 0.4 % (0-1); Eosinophil# 0.08 X10^3/uL; Eosinophils% 1.7 % (0-5); Hematocrit 24.7 % (37-47); Hemoglobin 6.8 g/dL (12.0-15.0); Lymphocyte # 0.99 X10^3/ul (0.83-4.51); Lymphocyte % 20.9 % (19-41); Mean Corp Hgb Conc 27.5 g/dL (32-36); Mean Corpuscular Hgb 22.7 pg (27.0-32.0); Mean Corpuscular Volume 82.3 fL (81-99); Mean Platelet Vol. 11.5 fl (6.2-12.0); Monocyte# 0.42 X10^3/uL; Monocyte% 8.9 % (0-10); NRBC Flagged by Analyzer 0 % (0-5); Neutrophil # 3.15 X10^3/uL (2.7-7.7); Neutrophil % 66.6 % (47-70); Platelet Count 161 K/mm3 (150-450); RBC Distribution Width CV 18.8 % (11.6-14.6); RBC Distribution Width SD 53.3 fl (35.1-43.9); White Blood Count 4.7 K/mm3 (4.4-11.0)
[2023-08-11 06:55] LABS: Anion Gap 6 (5-15); BUN 16 mg/dL (7-18); BUN/Creat Ratio 26.6 RATIO (10-20); Calcium,Total 8.2 mg/dL (8.5-10.1); Chloride 109 mmol/L (98-107); EST Glomerular Filtration Rate 102 mL/min (>60); Est Glom Filt Rate - Afr Amer 123 mL/min (>60); Estimated Creatinine Clearance 45.06 ml/min; Glucose 269 mg/dL (74-106); Potassium 3.6 mmol/L (3.5-5.1); Sodium Level 139 mmol/L (136-145)
[2023-08-11 07:04] LABS: Bedside Glucose 229 mg/dL (74-106)
[2023-08-11] MEDS: Pantoprazole Sodium 40 MG Tablet PO (08:07)
[2023-08-11] MEDS: Insulin Glargine-YFGN 100 UNIT/ML Pen 20 UNIT SC (08:07)
[2023-08-11 08:39] LABS: Vitamin B12 329 pg/mL (211-911)
[2023-08-11] MEDS: Escitalopram Oxalate 10 MG Tablet PO (10:01)
[2023-08-11] MEDS: Glucerna Shake 120 ML LIQUID PO ×4 (10:01→21:45)
--- NOTE | 2023-08-11 10:13 | CASEMGMT ---
SHANNON MANRIQUE Assessment Face to Face with patient for initial transition planning/care coordination assessment. SHANNON MANRIQUE introduced self and role at [facility], pt voices understanding. Pt is A&Ox4 and is resting comfortably in bed and is calm. Care providers, pharmacy, and demographics verified. Admitting dx: Dehydration LACE Strata: 2 PCP: Fernandez Specialists: Denies Preferred Pharmacy: [facility] during this stay Insurance: [facility] Prescription Benefit: Yes LNOK: Son- Salomón Lott. Per pt SHANNON Zuluaga, the son wanted called to discuss DC plan. TC to the pt son at this time and updated on pt status. Living Arrangements: Pt lives at home alone in a 2 story home with a BM with HR but does not use the up or downstairs and has a FFSU. 3 steps to enter with HR and denies issues. ADLs/IADLs: States Ind Transportation: Pt does not drive. Pt states she has friends/ neighbors that can drive her. Pt also states that she walks to the store as it is very close to her home. DME: Cane. Shower chair. GB in shower. States she wants a Walker. Verbal list of local in-network DME companies provided and pt chooses [employer] for DME needs. Referral sent via [employer] at this time. Pt states she has enough supplies to check her BS at home. HHC/SNF: Denies history Pt?s goal: Home with HHC Plan: Pt 6-Click is 10. PT/ OT recommend additional therapy. Pt is refusing SNF at this time and is requesting HHC. Pt denies wanting to see a list of local in-network agencies and states she wants to go through [facility] HH. Referral called to [facility] at this time for SN, PT, and OT. Will follow. Everton Norwood RN, CM
--- NOTE | 2023-08-11 11:25 | CASEMGMT ---
Addendum entered by Khadra Norwood 08/11/23 12:46: [facility] accepts pt at this time and SOC is Addendum entered by Khadra Norwood 08/11/23 12:33: TC to [facility] and they state that they talked to the pt on the phone and that the pt is not home-bound as she ambulates to the grocery store normally. This RN CM updated [facility] on pt current status with PT/OT and that the pt is requesting a walker instead of her cane at this time. [facility] state that they will reconsider accepting the pt. Awaiting return call. The pt also has no resources for her to get groceries if she is homebound. LESLI updated on this and will provide options for the pt. Original Note: [facility] calls this RN CM and states they cannot accept the pt and state the pt requires more than HHC. LESLI Proctor updated and states she will see the pt to discuss SNF options.
[2023-08-11] MEDS: Ferrous Gluconate 324 MG Tablet PO ×2 (11:41→17:03)
--- NOTE | 2023-08-11 12:03 | CASEMGMT ---
Social Work As per CM, [facility] declined pt as they think she needs more than [facility] can provide. Also pt focused on where her dog was taken when the squad picked her up. SW spoke w/pt in room in regard to discharge plan, let her know [facility] will not take her as they think she needs more care. Pt continues to state will go home and can manage at home. SW asked about condition of home, pt states it was due to her not feeling well. Pt asked about how to get her dog. SW called the [employer]ician's Dept to find out where the dogs are taken, they get taken to the [facility] on [address] SW called, message left([phone]) but they are not open today. SW let pt know and gave her the information. SW encouraged her to follow up tomorrow. She is not certain how she can go get the dog, SW explained if she is well enough she could take a taxi there. SW remains available, APS to be called if pt continues to stay firm in going home from here. AMINTA Crump
[2023-08-11 12:08] LABS: Bedside Glucose 413 mg/dL (74-106)
--- NOTE | 2023-08-11 16:30 | CASEMGMT ---
Social Work Collaboration way SHANNON Melendez reports was able to obtain [facility] home healthcare, with start of care for . Concerned present about patient's ability to get groceries at this point. Met with patient and discussed referral to [facility], both hot meals and frozen meals. Patient agreeable to a referral. Patient discussed concerned about how the patient will get her dog from the dog [facility]. Attempted to explore whether patient has any community support systems such as jehovah's witness members. Patient is not attending jehovah's witness. Both of patient sons with [id number] ([place] Patient reports to have a friend named Alba, but does not know Alba's phone number only that Alba works at [employer] by the community health systems. This race and sports book writer discussed with patient, that patient could call [employer] and see if Alba is working, and leave a message for Alba the next time Alba is working to call the patient. Obtained the phone number for [employer] and provided this to the patient, as well as the patient's room number in the hospital. 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 Supportive listening and emotional support provided the patient this date. Plan: social work to follow up with referral to [facility] and APS referral. -AMINTA Tuttle, CAMP ADVISOR
--- NOTE | 2023-08-11 17:03 | PN.HOSP_ITS ---
Reason for Visit Reason for Visit: Diagnoses Adult failure to thrive (08/09/23) Subjective Subjective Patient was seen and examined today, her hemoglobin this morning was 6.8, I have decided to transfuse the patient with 2 units packed red blood cells. Patient's recent iron level was low, the etiology of her chronic anemia is unclear at this time, she has not had a stool Hemoccult performed because she has not had a stool yet. Objective Data Objective Data Vital Signs: Vital Signs Temp Pulse Resp BP Pulse Ox O2 Del Method 97.8 F 72 16 109/56 L 96 Room Air 08/11/23 13:41 08/11/23 13:41 08/11/23 13:41 08/11/23 13:41 08/11/23 13:41 08/11/23 13:41 Oxygen Delivery Method Room Air Weight: 58.967 kg Body Mass Index (BMI) 26.2 Intake & Output: Intake and Output for Last 24 Hours 08/09/23 08/10/23 08/11/23 23:59 23:59 23:59 Intake Total 3489.58 / 3489.58 3760 / 3760 2491.67 / 2491.67 Output Total 1950 / 1950 1250 / 1250 Balance 3489.58 / 3489.58 1810 / 1810 1241.67 / 1241.67 Lab / Micro Data 08/11/23 05:18 08/11/23 05:18 Labs: Laboratory Results - last 24 hr 08/10/23 15:29: POC Glucose > 500 H* 08/10/23 22:42: POC Glucose 268 H 08/11/23 05:18: WBC 4.7, RBC 3.00 L, Hgb 6.8 L, Hct 24.7 L, MCV 82.3, MCH 22.7 L , MCHC 27.5 L, RDW Std Deviation 53.3 H, RDW Coeff of Nicholas 18.8 H, Plt Count 161, MPV 11.5, Immature Gran % (Auto) 1.500 H, Neut % (Auto) 66.6, Lymph % (Auto) 20.9, [place] % (Auto) 8.9, Eos % (Auto) 1.7, Baso % (Auto) 0.4, Absolute Neuts (auto) 3.2, Absolute Lymphs (auto) 0.99, Nucleated RBC % 0, Sodium 139, Potassium 3.6, Chloride 109 H, Carbon Dioxide 24.0, Anion Gap 6, BUN 16, Creatinine 0.60, Estim Creat Clear Calc 45.06, Est GFR (MDRD) Af Amer 123, Est GFR (MDRD) Non-Af 102, BUN/Creatinine Ratio 26.6 H, Glucose 269 H, Calcium 8.2 L , Vitamin B12 329 08/11/23 06:04: POC Glucose 229 H 08/11/23 11:40: POC Glucose 413 H Micro: Microbiology 08/09/23 12:00 Mucosa - Nose SARS-CoV-2, Influenza & RSV (PCR) - Final Physical Exam Const alert and no apparent distress HEENT head/scalp atraumatic and moist oral mucous membranes Eyes EOMs intact bilaterally and conjunctivae normal Neck supple and no JVD Resp normal respiratory effort, no retractions, no use of accessory muscles and clear to auscultation bilaterally Cardio regular rate, regular rhythm, S1 normal heart sound, S2 normal heart sound and no murmurs GI normal to inspection, nondistended, normoactive bowel sounds, soft to palpation, non-tender and non-distended Extremity normal to inspection Neuro CN's II-XII intact bilaterally, moves all extremities and no focal motor deficits Sensorium / Orientation: awake, alert, oriented to person and oriented to place Psych affect normal Assessment & Plan Assessment/Plan (1) Adult failure to thrive: PLAN: Plan 1. Acute debility-patient is being seen by PT and OT, at this time the patient would like to be discharged home rather than go to a assisted facility, due to her anemia today however she will need to stay and get transfused. #2 chronic iron deficiency anemia-etiology unclear, patient has not had a stool so a Hemoccult has not been performed, patient will receive 2 units of packed red blood cells and H&H will be rechecked tomorrow #3 type 2 diabetes-patient's blood sugars will be monitored, sliding scale insulin will be used as needed #4 chronic depression-patient is on Lexapro #5 hypothyroidism-patient is on levothyroxine Total clinical time spent by myself addressing patient's medical issues, reviewing all of her data, and collaborating with patient's care team: 35 minute s Charges/Coding Visit Charges Inpatient E&M: 46737 Subs Hosp L2
[2023-08-11 17:29] LABS: Bedside Glucose 447 mg/dL (74-106)
[2023-08-11] MEDS: Atorvastatin Calcium 40 MG Tablet PO (21:43)
[2023-08-11] MEDS: Insulin Glargine-YFGN 100 UNIT/ML Pen 30 UNIT SC (21:51)
[2023-08-11 22:02] LABS: Bedside Glucose 457 mg/dL (74-106)
[2023-08-11 22:40] LABS: Bedside Glucose 383 mg/dL (74-106)
[2023-08-12] VITALS (7 sets, daily range): BP systolic 107–128; BP diastolic 60–87; PULSE 68–88; RESP 16; TEMP 36.8–37.3; O2SAT 95–100
[2023-08-12] MEDS: Insulin Lispro 100 UNIT/ML INSULN.PEN 12 UNIT SC ×2 (06:15→12:46)
[2023-08-12] MEDS: Levothyroxine 50 MCG Tablet PO (06:15)
[2023-08-12 06:51] LABS: Bedside Glucose 143 mg/dL (74-106)
[2023-08-12 07:14] LABS: Hematocrit 33.7 % (37-47); Hemoglobin 9.9 g/dL (12.0-15.0)
[2023-08-12] MEDS: Insulin Glargine-YFGN 100 UNIT/ML Pen 30 UNIT SC (08:50)
[2023-08-12] MEDS: Pantoprazole Sodium 40 MG Tablet PO (08:50)
[2023-08-12] MEDS: Aspirin E.C. 81 MG Tablet PO (08:50)
[2023-08-12] MEDS: Escitalopram Oxalate 10 MG Tablet PO (08:51)
--- NOTE | 2023-08-12 09:11 | CASEMGMT ---
Pt son (Salomón) called and updated on pt POC. [facility] SOC is .
[2023-08-12 09:14] LABS: Bedside Glucose 155 mg/dL (74-106)
[2023-08-12] MEDS: Glucerna Shake 120 ML LIQUID PO (10:17)
--- NOTE | 2023-08-12 10:30 | CASEMGMT ---
Social Work The percolator operator, Marcelo Hameed, called this SW back. He states he spoke to pt this morning at 9:55. The percolator operator did also speak w/the son. The dog was removed. Pt was initially not agreeable, but they did remove the dog due to the dog's condition, as his hair was matted, he was covered in fleas, and the home appeared to have both dog and human urine in the home. He states they cut 1/2 pound of matted hair off the dog, and that his teeth are rotting. Mr. Hameed states the dog was well fed but they did have to remove the dog and did so on Friday. He staates that they do have to go forward with a criminal case for neglect as the pt did not willingly give the dog. SW will make APS and MOW referral today. AMINTA Crump
--- NOTE | 2023-08-12 10:52 | CASEMGMT ---
Addendum entered by Esthela Louis 08/12/23 12:09: Social Work SW spoke w/Michelle in APS, made referral. SW also spoke w/pt about a referral to [facility], pt agreeable. SW spoke w/therapy, pt walked 180 feet and should be able to get in and out of the hospital van to get home. AMINTA Crump Original Note: Social Work SW made a referral to [facility] online. SW also called [facility], message left. AMINTA Crump
--- NOTE | 2023-08-12 11:13 | CASEMGMT ---
LESLI added to pt HH order. George delivered to the pt room via Gurpreet from [facility].
--- NOTE | 2023-08-12 11:59 | CASEMGMT ---
Social Work Pt has not completed LW/POA, at some point may be interested in completing the documents but was not sure who she would put down. SW explained without the documents it would fall to her sons. Pt states understanding. AMINTA Crump
--- NOTE | 2023-08-12 12:15 | CASEMGMT ---
Social Work SW set up hospital van to take pt home at 3:45. SW let RN know, let physician know, let pt know. No further needs. Pt home w/ HHC referral, referral to APS, [facility] and [facility]. AMINTA Crump
[2023-08-12 12:33] LABS: Bedside Glucose 312 mg/dL (74-106)
[2023-08-12] MEDS: Insulin Lispro 100 UNIT/ML INSULN.PEN SC (12:46)
[2023-08-12] MEDS: Ferrous Gluconate 324 MG Tablet PO (12:50)
--- NOTE | 2023-08-12 12:58 | DCINST_ITS ---
Discharge Instructions Diet Discharge Diet: 1800 Calorie Control Diet Activity Discharge Activity: Return to Normal Activity Weight Bearing Status: Full weight bearing Follow Up Care Test Results: Test results from this visit will be discussed in further detail at your follow- up appointment, if applicable. Discharge Plan Admission Admit Date/Time: 08/09/23 13:58 Primary Reason for Your Visit: debility, anemia Attending Provider: Wes Alva Primary Care Provider: Pavithra Presley Consulting Providers: Mihai Strauss Discharge Orders/Prescriptions Prescriptions: New glipizide 10 mg tablet 10 mg PO BID Qty: 60 0RF Continued levothyroxine 50 MCG tablet 50 mcg PO DAILY Patient Comments: THYROID MEDICATION pantoprazole 40 MG tablet 40 mg PO BREAKFAST Patient Comments: ROWENA ON EMPTY STOMACH, 1/2HR BEFORE MEAL -ACID REFLUX metformin 500 MG tablet extended release 24 hr 2,000 mg PO BREAKFAST Patient Comments: -FOR DIABETES atorvastatin 40 MG tablet 40 mg PO QHS aspirin 81 MG tablet 81 mg PO DAILY@0800 escitalopram oxalate 10 MG tablet 10 mg PO DAILY ferrous gluconate 236 MG tablet 65 mg PO BID empagliflozin 10 MG tablet 10 mg PO DAILY levothyroxine 25 mcg tablet 25 mcg PO .MWF Patient Comments: in addition to the 50mcg. so total of 75mcg on MWF Discontinued glipizide 10 mg tablet extended release 24hr 10 mg PO DAILY Referrals / Follow Up: Pavithra Presley MD [Primary Care Provider] - Within 2 Weeks Disposition Disposition (needs filled in before D/C Order can be placed): Home Health Service
--- NOTE | 2023-08-12 13:06 | PCM.DC.SUM ---
Providers Date of Admission: 08/09/23 Date of Discharge: 08/12/23 Primary Care Physician: Dr. Pavithra Presley MD Reason For Visit: DEHYDRATION Diagnosis Discharge Diagnosis (1) Adult failure to thrive: Status: Acute Code(s): R62.7 - Adult failure to thrive Plan 1. Acute debility-patient is being seen by PT and OT, at this time the patient would like to be discharged home rather than go to a half-way facility, due to her anemia today however she will need to stay and get transfused. #2 chronic iron deficiency anemia-etiology unclear, patient has not had a stool so a Hemoccult has not been performed, patient will receive 2 units of packed red blood cells and H&H will be rechecked tomorrow #3 type 2 diabetes-patient's blood sugars will be monitored, sliding scale insulin will be used as needed #4 chronic depression-patient is on Lexapro #5 hypothyroidism-patient is on levothyroxine Total clinical time spent by myself addressing patient's medical issues, reviewing all of her data, and collaborating with patient's care team: 35 minutes Medications at Discharge Home Medications levothyroxine 50 mcg tablet 50 mcg PO DAILY thyroid 06/07/14 metformin 500 mg tablet,extended release 24 hr 2,000 mg PO BREAKFAST DM 06/07/14 pantoprazole 40 mg tablet,delayed release 40 mg PO BREAKFAST GERD 06/07/14 aspirin 81 mg tablet,delayed release 81 mg PO DAILY@0800 cad 05/28/19 atorvastatin 40 mg tablet 40 mg PO QHS CHOLESTEROL 05/28/19 empagliflozin 10 mg tablet 10 mg PO DAILY dm 05/28/19 escitalopram oxalate 10 mg tablet 10 mg PO DAILY DEPRESS 05/28/19 ferrous gluconate 236 mg (27 mg iron) tablet 65 mg PO BID supplement 05/28/19 levothyroxine 25 mcg tablet 25 mcg PO .MWF thyroid 08/09/23 glipizide 10 mg tablet 10 mg PO BID #60 tabs 08/12/23 insulin glargine-yfgn 100 unit/mL (3 mL) subcutaneous pen 45 unit (0.45 mL) subcut QHS #0 mL 08/16/23 insulin lispro 100 unit/mL subcutaneous pen (Humalog KwikPen (U-100) Insulin) See Protocol subcut ACHS #0 mL 08/16/23 nitrofurantoin macrocrystal 100 mg capsule 100 mg PO BID 5 days #10 caps 08/16/23 Hospital Course Operations None Procedures Blood transfusion Summary of Care Provided Minutes Spent on Discharge: 31 Hospital Course: This 78-year-old white female was seen in the emergency room at [facility] for generalized weakness. Patient was brought in by ambulance, patient was noted to have poor living conditions at home. Patient appeared unkempt, vital signs were stable, CT of the brain showed no evidence of acute process. Labs showed a hemoglobin of 8.6, creatinine was unremarkable. Patient was admitted to [place] [address], she was seen by PT and OT as well as high school social science teacher and case management. Patient was given 2 units of packed red blood cells, her family was contacted and it was decided the patient would return to her home, family was going to clean up her living area. Adult protection services were also confirmed to be active with the patient. On 08/12/2023, patient was seen and examined: On examination she appeared in good health and spirits, she does not appear to be in any distress. Vital signs as documented. Skin warm and dry and without overt rashes. Neck without JVD, thyroid appears normal, trachea is midline, neck is supple. Lungs clear, normal air movement was noted. Heart exam notable for regular rhythm, normal sounds and absence of murmurs, rubs or gallops. Abdomen unremarkable and without evidence of organomegaly, masses, or abdominal aortic enlargement, bowel sounds are present in all 4 quadrants, no abdominal tenderness was noted. Extremities nonedematous, no cyanosis was noted, no clubbing was noted. Neuro: Cranial nerves II through XII are grossly intact, no focal motor deficits were noted, sensation to light touch and pinprick is intact, motor exam 5/5 throughout. Psych: Patient is alert and oriented x3, she does not appear anxious or depressed, she does not appear agitated. Patient was felt to be stable for discharge home on 08/12/2023 Weight / BMI Weight Weight: 58.967 kg Body Mass Index (BMI) 26.2 ABG / Lab / Microbiology Data 08/12/23 06:39 08/11/23 05:18 Laboratory: Laboratory Results - last 24 hr 08/11/23 16:54: Antibody Screen NEGATIVE, Crossmatch See Detail 08/11/23 16:58: POC Glucose 447 H 08/11/23 21:34: POC Glucose 457 H* 08/11/23 22:22: POC Glucose 383 H 08/12/23 06:09: POC Glucose 143 H 08/12/23 06:39: Hgb 9.9 L, Hct 33.7 L 08/12/23 08:39: POC Glucose 155 H 08/12/23 12:16: POC Glucose 312 H Microbiology: Microbiology 08/09/23 12:00 Mucosa - Nose SARS-CoV-2, Influenza & RSV (PCR) - Final D/C Instructions Discharge Diet: 1800 Calorie Control Diet Weight Bearing Status: Full weight bearing Meaningful Use Info Meaningful Use Diagnoses (Choose all that apply): None applicable Discharge Plan Admission Admit Date/Time: 08/09/23 13:58 Primary Reason for Your Visit: debility, anemia Attending Provider: Wes Alva Primary Care Provider: Pavithra Presley Consulting Providers: Mihai Strauss Instructions Additional Instructions / Restrictions: You will need further workup regarding your anemia, you may have to undergo more testing such as an upper endoscopy or colonoscopy. Discharge Orders/Prescriptions Prescriptions: New glipizide 10 mg tablet 10 mg PO BID Qty: 60 0RF Continued levothyroxine 50 MCG tablet 50 mcg PO DAILY Patient Comments: THYROID MEDICATION pantoprazole 40 MG tablet 40 mg PO BREAKFAST Patient Comments: ROWENA ON EMPTY STOMACH, 1/2HR BEFORE MEAL -ACID REFLUX metformin 500 MG tablet extended release 24 hr 2,000 mg PO BREAKFAST Patient Comments: -FOR DIABETES atorvastatin 40 MG tablet 40 mg PO QHS aspirin 81 MG tablet 81 mg PO DAILY@0800 escitalopram oxalate 10 MG tablet 10 mg PO DAILY ferrous gluconate 236 MG tablet 65 mg PO BID empagliflozin 10 MG tablet 10 mg PO DAILY levothyroxine 25 mcg tablet 25 mcg PO .MWF Patient Comments: in addition to the 50mcg. so total of 75mcg on MWF Discontinued glipizide 10 mg tablet extended release 24hr 10 mg PO DAILY No Action insulin lispro [Humalog KwikPen Insulin] 100 unit/mL Insulin Pen See Protocol subcut ACHS Qty: 0 0RF Protocol: 3. Sliding Scale Insulin Med Dosing Condition: 150-189 mg/dl = 1 unit Condition: 190-229 mg/dl = 2 units Condition: 230-269 mg/dl = 3 units Condition: 270-309 mg/dl = 4 units Condition: 310-349 mg/dl = 5 units Condition: 350-399 mg/dl = 6 units Condition: 400-449 mg/dl = 7 units Condition: Greater than 449 call physician Protocol Text: - Use for Total Daily Dose of Insulin 37-55 units - Obsese, infected, or steroid patients MEDIUM DOSING ALGORITHIM insulin glargine-yfgn 100 unit/mL (3 mL) Insulin Pen 45 unit subcut QHS Qty: 0 0RF nitrofurantoin macrocrystal 100 mg capsule 100 mg PO BID 5 Days Qty: 10 0RF Rx Instructions: must administer with a meal/food Referrals / Follow Up: Pavithra Presley MD [Primary Care Provider] - Within 2 Weeks Disposition Disposition (needs filled in before D/C Order can be placed): Home Health Service Charges/Coding Visit Charges Inpatient E&M: 94545 Disch Hosp >30min
--- NOTE | 2023-08-12 13:13 | PHA.DC_ITS ---
Pharmacy [facility] Reconciliation Pharmacy Service has performed discharge medication reconciliation for this patient. The patient's discharge medication list was reviewed for discrepancies and discrepancies were resolved. Medications at Discharge Home Medications levothyroxine 50 mcg tablet 50 mcg PO DAILY thyroid 06/07/14 metformin 500 mg tablet,extended release 24 hr 2,000 mg PO BREAKFAST DM 06/07/14 pantoprazole 40 mg tablet,delayed release 40 mg PO BREAKFAST GERD 06/07/14 aspirin 81 mg tablet,delayed release 81 mg PO DAILY@0800 cad 05/28/19 atorvastatin 40 mg tablet 40 mg PO QHS CHOLESTEROL 05/28/19 empagliflozin 10 mg tablet 10 mg PO DAILY dm 05/28/19 escitalopram oxalate 10 mg tablet 10 mg PO DAILY DEPRESS 05/28/19 ferrous gluconate 236 mg (27 mg iron) tablet 65 mg PO BID supplement 05/28/19 levothyroxine 25 mcg tablet 25 mcg PO .[facility] thyroid 08/09/23 glipizide 10 mg tablet 10 mg PO BID #60 tabs 08/12/23
--- NOTE | 2023-08-12 15:50 | CASEMGMT ---
Addendum entered by Khadra Norwood 08/12/23 16:02: The walker has been picked up per the assistant secretary on MS. Original Note: Pt left walker in room after DC. TC to [facility] and she states they cannot deliver the walker. TC to the pt at this time and voice message left stating she left the walker here and will need to have someone (or her) come pick it up if possible.
--- NOTE | 2023-08-12 16:49 | CASEMGMT ---
Social Work SW received a call from [employer] [email or web address] Though pt was able to walk well with therapy, the moving van driver still had to help her into the home. Also, she told the corrugated fastener driver she had no food and asked if the corrugated fastener driver could get her groceries. SW called pt, she did not answer, message left. SW called pt's son Salomón, he called back. SW explained the above. SW also let him know that home care was set up along with [facility] Whe[facility], APS call and a referral to [facility] was made for pt. However, pt did not inform SW she had no food in the home. SW explained tried to call her and she did not answer. Son states that pt likely does not have any food. He states she normally just walks across the street to [facility] He states there is truly nobody local to help the pt. After some discussion, he said he would door dash her some groceries from the grocery store. SW explained to son if he cannot reach pt, or the groceries cannot be delivered, to call the police again like he did no Friday to check on the pt. SW explained it would be better to have pt brought back into the hospital than to be home and not have what she needs. Son in full agreement and plans to call. He state he was here in December and was trying to help pt with her bills. He tried to do POA then and she was acting like a 1 year old. He states she lost her car as she was not paying for it. She states she has been this way her whole life. He states her home is not clean and she is living in horrible conditions. Salomón explains that pt did convince a cousin to come from [place] to clean her home. 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 He would like to move her out to [place] and sell her house eventually. He states he loves his mother but she is very difficult. We also spoke about healthcare POA, he would like for pt to do this document, SW emailed him the blank forms. Son will get groceries delivered to pt, and will call the police department again should the pt not respond or the groceries cannot be delivered. AMINTA Crump
== END 2023-08-12 15:57 | disposition home health service (06) | DRG 641 ==
LOC: ED 14:10 → MS3 14:33
PROVIDERS: Internal Medicine; Nurse Practitioner; Admitting Provider Internal Medicine; Emergency Provider Emergency Medicine; PCP Internal Medicine; Visit Provider Internal Medicine
DX: R62.7 Adult failure to thrive (principal); D50.9 Iron deficiency anemia, unspecified; E11.65 Type 2 diabetes mellitus with hyperglycemia; E03.9 Hypothyroidism, unspecified; E78.5 Hyperlipidemia, unspecified; F32.A Depression, unspecified; K21.9 Gastro-esophageal reflux disease without esophagitis; E86.0 Dehydration; Z79.84 Long term (current) use of oral hypoglycemic drugs; Z79.82 Long term (current) use of aspirin; Z79.899 Other long term (current) drug therapy
CPT/HCPCS: 36415; 70450; 71045; 80048; 80053; 81001; 82550; 82607; 82728; 82947; 82962; 83540; 83550; 83735; 84100; 84443; 85014; 85018; 85025; 85045; 86850; 86900; 86901; 86920; 86922; 87631; 93005; 97162; 97166; 97530; 99285; J7030; J7040; P9016; P9612; 90662; A4216

== ENCOUNTER 2023-08-14 22:23 | Inpatient (IN) | payer MEDICARE, SELFPAY ==
[2023-08-14 22:23] VITALS: BP 91/79; PULSE 78; RESP 16; TEMP 36.2; O2SAT 98
--- NOTE | 2023-08-14 22:30 | ED.RN ---
EMS states that the patient's home had urine and feces everywhere. They also state the patient had her air conditioner on instead of heat. They state it was colder in her house than it is outside .
--- NOTE | 2023-08-14 22:33 | EKG12_ITS ---
Test Reason : DYSRHYTHMIA Blood Pressure : / mmHG Vent. Rate : 070 BPM Atrial Rate : 070 BPM P-R Int : 210 ms QRS Dur : 076 ms QT Int : 376 ms P-R-T Axes : 047 -27 026 degrees QTc Int : 406 ms Sinus rhythm with 1st degree A-V block Cannot rule out Septal infarct , age undetermined Abnormal ECG Confirmed by Ronan Uribe ([id number]), online content editor ROYAL MENG ([id number]) on 08/15/2023 9:50:29 AM Referred By: Confirmed By:Ronan Uribe
--- NOTE | 2023-08-14 22:35 | EDS_ITS ---
HPI History of Present Illness Chief Complaint: Weakness Detail of Chief Complaint: Generalized weakness Informant: patient and EMS Narrative Narrative: Patient presents to the emergency department via EMS from home. She called for help because she is unable to care for herself. Patient had recent admission to the hospital and she was set up with protective services and [employer] Whe[employer]. Patient states that she is having a hard time even getting up. She is only had a tomato to eat today. Patient urinating frequently. Denies fevers or chills or sweats. She denies chest pain or shortness of breath. She denies abdominal pain. [facility] Medical History (Updated 08/15/23 @ 00:[address] Lola Marquez, DO) Diabetes Head injury Kidney stones Home Medications levothyroxine 50 mcg tablet 50 mcg PO DAILY thyroid 06/07/14 [History Last Taken Unknown] metformin 500 mg tablet,extended release 24 hr 2,000 mg PO BREAKFAST DM 06/07/14 [History Last Taken Unknown] pantoprazole 40 mg tablet,delayed release 40 mg PO BREAKFAST GERD 06/07/14 [History Last Taken Unknown] aspirin 81 mg tablet,delayed release 81 mg PO DAILY@0800 cad 05/28/19 [History Last Taken Unknown] atorvastatin 40 mg tablet 40 mg PO QHS CHOLESTEROL 05/28/19 [History Last Taken Unknown] empagliflozin 10 mg tablet 10 mg PO DAILY dm 05/28/19 [History Last Taken Unknown] escitalopram oxalate 10 mg tablet 10 mg PO DAILY DEPRESS 05/28/19 [History Last Taken Unknown] ferrous gluconate 236 mg (27 mg iron) tablet 65 mg PO BID supplement 05/28/19 [History Last Taken Unknown] levothyroxine 25 mcg tablet 25 mcg PO .MWF thyroid 08/09/23 [History Last Taken Unknown] glipizide 10 mg tablet 10 mg PO BID #60 tabs 08/12/23 [Rx Last Taken Unknown] Allergy/AdvReac Type Severity Reaction Status Date / Time venlafaxine HCl Allergy Rash Verified 08/09/23 11:14 [From Effexor] meclizine AdvReac Other Verified 08/09/23 11:14 Surgical History H/O: section History of cholecystectomy History of knee joint replacement Social History Smoking Status: Never smoker ROS ROS ED Review of Systems ROS Unobtainable: other Constitutional Constitutional ED: Reports lethargy; Denies chills, fever(s), sweats or weight loss Eyes Eyes: Denies blurry vision, change in vision or diplopia ENT ENT ED: Denies rhinorrhea or sore throat Cardiovascular Cardiovascular: Denies chest pain, orthopnea or racing heartbeat Respiratory/Chest Respiratory/Chest: Denies cough, dyspnea, dyspnea on exertion, orthopnea or sputum Gastrointestinal Gastrointestinal: Denies abdominal pain, diarrhea, nausea or vomiting Genitourinary Genitourinary ED: Denies dysuria, hematuria or urinary frequency Musculoskeletal Musculoskeletal: Denies arthralgias, back pain, myalgias or neck pain Integumentary Denies abscess, Abrasions or rash Neurologic Neurologic: Reports weakness; Denies headache(s) Psychiatric Psychiatric: Denies anxiety, depression or suicidal thoughts Endocrine Endocrinology: Denies polydipsia, polyphagia or polyuria Hematologic/Lymphatic Hematologic/Lymphatic: Denies easy bleeding, easy bruising or lymphadenopathy Allergic/Immunologic Allergic/Immunologic ED: Denies mouth swelling, tongue swelling or urticaria EXAM Physical Exam Narrative Exam Narrative: Patient presents via EMS. She smells of urine as she has been incontinent. Const Vital Signs: 08/14/23 22:23 08/15/23 00:17 08/15/23 00:19 Temperature 97.1 F L Temperature Source Temporal Pulse Rate 78 63 Respiratory Rate 16 20 H Respiratory Effort Normal Non-Labored Respiratory Pattern Normal Blood Pressure 91/79 124/68 H Blood Pressure Mean 83 86 Pulse Ox 98 97 Oxygen Delivery Method Room Air Room Air Positive well nourished and well developed General Appearance ED: well developed and NAD HEENT Reports TM's clear and moist mucous membranes normocephalic and atraumatic; Negative for trauma or tenderness Tympanic Membrane ED: Yes TM's clear Eyes PERRL and EOMs intact bilaterally General Eye ED: Negative for pale conjunctiva or scleral icterus Neck no lymphadenopathy, supple and no JVD General: Negative for tenderness Chest Wall inspection of chest normal and palpation of chest normal Chest: Negative for tenderness Resp normal respiratory effort and clear to auscultation bilaterally Effort and Inspection: Negative for respiratory distress or pain with movement Auscultation: Negative for rhonchi, wheezes or diminished lung sounds Cardio regular rate, regular rhythm, S1 normal heart sound, S2 normal heart sound and no murmurs Peripheral Pulses: pulses 2+ throughout GI normal to inspection, nondistended, normoactive bowel sounds, soft to palpation, non-tender, non-distended and no masses Back/Spine no CVA tenderness and no thoracic nor lumbar tenderness Extremity normal to inspection General Extremety ED: Negative for edema General Extremity: Negative for edema Neuro oriented x3, CN's II-XII intact bilaterally, no sensory deficits noted and gait normal Sensorium / Orientation: awake, alert, oriented to person, oriented to place and oriented to time Motor Exam: strength 5/5 throughout and strength abnormal Psych mental status grossly normal Skin no rashes or lesions noted and no wounds MDM MDM MDM Narrative Medical decision making narrative: Patient presents with generalized weakness and unable to care for herself. She is incontinent of urine. Foul odor in room. IV line established. CBC with differential obtained showed white count 4.3 with hemoglobin 10.7 and platelet count of 135. Chemistries unremarkable. BUN 24 and creatinine 0.89. Glucose elevated at 681. Urinalysis positive for 100 excite esterase as well as 25-50 WBCs and +1 bacteria. I did send off a urine culture. Patient started on Rocephin 1 g IV. EKG obtained arrival showed a sinus rhythm with a rate of 70 bpm with a first-degree AV block. No acute ST segment changes noted. Troponin normal at 8. I did give patient insulin subcu 12 units of regular insulin. Will discuss with hospitalist evaluate for admission Lab Data Attestation: I reviewed the patient's lab results. Labs: Laboratory Results - last 24 hr 08/14/23 08/14/23 08/15/23 23:07 23:32 00:02 WBC 4.3 L RBC 4.38 Hgb 10.7 L Hct 36.9 L MCV 84.2 MCH 24.4 L MCHC 29.0 L D RDW Std Deviation 58.6 H RDW Coeff of [place] 19.8 H Plt Count 135 L MPV 11.7 Immature Gran % (Auto) 0.700 Neut % (Auto) 69.3 Lymph % (Auto) 17.4 L [place] % (Auto) 10.7 H Eos % (Auto) 1.4 Baso % (Auto) 0.5 Absolute Neuts (auto) 3.0 Absolute Lymphs (auto) 0.75 L Nucleated RBC % 0 Sodium Cancelled 135 L Potassium Cancelled 4.6 Chloride Cancelled 101 Carbon Dioxide Cancelled 27.0 Anion Gap Cancelled 7 BUN Cancelled 24 H Creatinine Cancelled 0.89 Estim Creat Clear Calc Cancelled 42.48 Est GFR (MDRD) Af Amer Cancelled 79 Est GFR (MDRD) Non-Af Cancelled 65 BUN/Creatinine Ratio Cancelled 27.0 H Glucose Cancelled 681 H* Calcium Cancelled 10.1 Troponin I High Sens Cancelled 8 Urine Color Yellow Urine Clarity Sl. Cloudy Urine pH 7.0 Ur Specific [place] 1.010 Urine Protein Negative Urine Glucose (UA) 1000 H Urine Ketones 5 H Urine Occult Blood 250 H Urine Nitrite Negative Urine Bilirubin Negative Urine Urobilinogen Normal Ur Leukocyte Esterase 100 H Urine RBC 5-10 SEEN Urine WBC 25-50 SEEN Ur Squamous Epith Cells 0 SEEN Ur Transition Epith Cell 0 SEEN Ur Renal Epithelial Cell 0 SEEN Urine Bacteria 1+ Urine Mucus 0 SEEN EKG Initial EKG: Attestation: I personally reviewed and interpreted this EKG as follows: Comments: Sinus rhythm with rate of 70 bpm with first-degree AV block and old septal infarct Discharge Plan Triage Chief Complaint: Weakness ED Provider: Lola Marquez Dx/Rx/DC Orders Clinical Impression: Hyperglycemia, Acute UTI, Adult failure to thrive Prescriptions: No Action levothyroxine 50 MCG tablet 50 mcg PO DAILY Patient Comments: THYROID MEDICATION pantoprazole 40 MG tablet 40 mg PO BREAKFAST Patient Comments: ROWENA ON EMPTY STOMACH, 1/2HR BEFORE MEAL -ACID REFLUX metformin 500 MG tablet extended release 24 hr 2,000 mg PO BREAKFAST Patient Comments: -FOR DIABETES atorvastatin 40 MG tablet 40 mg PO QHS aspirin 81 MG tablet 81 mg PO DAILY@0800 escitalopram oxalate 10 MG tablet 10 mg PO DAILY ferrous gluconate 236 MG tablet 65 mg PO BID empagliflozin 10 MG tablet 10 mg PO DAILY levothyroxine 25 mcg tablet 25 mcg PO .MWF Patient Comments: in addition to the 50mcg. so total of 75mcg on MWF glipizide 10 mg tablet 10 mg PO BID Qty: 60 0RF Primary Care Provider: Pavithra Presley Referrals: Pavithra Presley MD [Primary Care Provider] - Disposition Disposition: Acute Care [facility]
--- OUTSIDE RECORDS SUMMARY | 2023-08-14 22:53 | XMS RPT_ITS | CCD ---
Author Name Unknown Address [address] [place] [address] Organization [facility] Care Team Providers Care Relief Charge Nurse Name Role Phone Peter Presley MD Primary Care Provider Jessica [facility], Keti Unavailable Peter Presley MD Primary Care Provider Peter Presley MD Primary Care Provider [facility], Melony Unavailable TALAMPAS, PETER D Primary Care Unavailable TALAMPAS, PETER D Referring Unavailable TALAMPAS, PETER D Primary Care Unavailable TALAMPAS, PETER D Attending Unavailable TALAMPAS, PETER D Referring Unavailable TALAMPAS, PETER D Primary Care Unavailable TALAMPAS, PETER D Primary Care Unavailable Allergies Allergy Classification Reported Allergen(s) Allergy Type Date of Onset Reaction(s) Facility (19 sources) Contrast media; Translations: [CONTRAST DYE] Drug Intolerance 4 GI Upset [facility] Work Phone: (19 sources) FLUoxetine; Translations: [FLUOXETINE] Drug Allergy 9 Intolerance [facility] Work Phone: (19 sources) Meclizine; Translations: [MECLIZINE] Drug Allergy 4 Mental Status Change, Other: See Comments [facility] Work Phone: (19 sources) venlafaxine; Translations: [VENLAFAXINE HCL] Drug Allergy 9 Rash [facility] Medications Current Medications Medication Drug Class(es) [...] 01-05-2007 Chronic Genitourinary symptoms and ill-defined conditions (18 sources) Incontinence; Translations: [Mixed incontinence] Onset: 08-04-2008 08-04-2008 Chronic Mood disorders (3 sources) Depressive disorder; Translations: [Depression, unspecified depression type] Chronic Nutritional deficiencies (2 sources) Vitamin D deficiency; Translations: [Vitamin D deficiency, unspecified] Onset: 07-04-2023 02-28-2023 Chronic Other aftercare (5 sources) Patient encounter status; Translations: [Other long lines operator (current) drug therapy] Episodic Other aftercare (2 sources) Other residential (current) drug therapy; Translations: [Encounter for long-term current use of medication] Onset: 09-12-2022 Episodic Other eye disorders (1 source) Epithelial basement membrane dystrophy; 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-ajx-dwdheppzwtf corneal dystrophy of both eyes] Episodic Other nutritional; endocrine; and metabolic disorders (18 sources) Obesity; Translations: [Obesity, unspecified] Onset: 01-05-2007 04-02-2015 Chronic Thyroid disorders (20 sources) Hypothyroidism; Translations: [Hypothyroidism, unspecified] Onset: 04-02-2015 04-02-2015 Chronic Unclassified (1 source) OPENED IN ERROR Past or Other Problems Problem Classification Problem Date Documented Da te Episodic/Chronic Conditions associated with dizziness or vertigo (18 sources) Benign paroxysmal positional vertigo; Translations: [Benign paroxysmal vertigo, unspecified ear] Onset: 03-04-2012 03-04-2012 Episodic Deficiency and other anemia (20 sources) Iron deficiency anemia; Translations: [Iron deficiency anemia, unspecified] Onset: 08-13-2021 08-13-2021 Episodic Deficiency and other anemia (1 source) Iron deficiency anemia, unspecified; Translations: [Iron deficiency anemia, unspecified iron deficiency anemia type] Onset: 08-13-2021 Episodic Disorders of teeth and jaw (18 sources) Difficulty chewing; Translations: [Other specified disorders of teeth and supporting structures] Onset: 02-25-2021 02-25-2021 Episodic Malaise and fatigue (18 sources) Asthenia; Translations: [Weakness] Onset: 04-15-2019 04-15-2019 Episodic Nutritional deficiencies (20 sources) Cobalamin deficiency; Translations: [Deficiency of other specified B group vitamins] Onset: 08-13-2021 08-13-2021 Episodic Other connective tissue disease (18 sources) Recurrent falls ; Translations: [Repeated falls] Onset: 04-15-2019 04-15-2019 Episodic Other ear and sense organ disorders (18 sources) Tinnitus; Translations: [Tinnitus, unspecified ear] Onset: 03-04-2012 03-04-2012 Episodic Other screening for suspected conditions (not mental disorders or infectious disease) (18 sources) Mammography abnormal; Translations: [Other abnormal and inconclusive findings on diagnostic imaging of breast] Onset: 02-19-2013 02-19-2013 Episodic Results Test Name Value Interpretation Reference Range Facil ity Vital Signs Date Time Vital Sign Value Performing Clinician Faci lity 02-28-2023 14:23-0400 Body temperature 97.81 [degF] Peter Presley MD Work Phone: [facility] 02-28-2023 14:23-0400 Body weight 64.86 kg Peter Presley MD Work Phone: [facility] 02-28-2023 14:23-0400 Diastolic blood pressure 65 mm[Hg] Peter Presley MD Work Phone: [facility] 02-28-2023 14:23-0400 Heart rate 115 /min Peter Presley MD Work Phone: [facility] 02-28-2023 14:23-0400 Respiratory rate 18 /min Peter Presley MD Work Phone: [facility] 02-28-2023 14:23-0400 SaO2% (BldA) [Mass fraction] 97 % Peter Presley MD Work Phone: [facility] 02-28-2023 14:23-0400 Systolic blood pressure 104 mm[Hg] Peter Presley MD Work Phone: [facility] 12-11-2021 14:27-0400 Body weight 68.95 kg Peter Presley MD Work Phone: [facility] 12-11-2021 14:27-0400 Diastolic blood pressure 68 mm[Hg] Peter Presley MD Work Phone: [facility] 12-11-2021 14:27-0400 Heart rate 96 /min Peter Presley MD Work Phone: [facility] 12-11-2021 14:27-0400 SaO2% (BldA) [Mass fraction] 97 % Peter Presley MD Work Phone: [facility] 12-11-2021 14:27-0400 Systolic blood pressure 120 mm[Hg] Peter Presley MD Work Phone: [facility] Encounters Encounter Date Encounter Type Care Provider Facility Start: 08-11-2023 Telephone encounter Peter ortega MD Work Phone: [facility] Procedures Date Procedure Procedure Detail Performing Clinician Start: 01-09-2022 IOL BIOMETRY W/ IOL CALC OU (BOTH EYES) Harsha Ortiz MD Work Phone: Start: 01-09-2022 End: 01-09-2022 Computerized ophthalmic imaging retina Harsha Ortiz MD Work Phone: Start: 08-13-2021 Adult depression scr eening assessment Maciej Lopez [facility] Work Phone: Start: 03-20-2019 Electrocardiogram Plan of Treatment Date Care Activity Detail Author Start: 02-29-2024 ANNUAL PCP TEAM TELEPHONE SOLICITOR DEBBIE DISEASE VISIT ANNUAL PCP TEAM CHRONIC DISEASE VISIT [facility] Start: 02-14-2024 Hepatitis B screening URINE ALBUMIN:CREATININE RATIO [facility] Start: 02-14-2024 Hepatitis B surface antibody level LDL CHOLESTEROL [facility] Start: 10-03-2023 Hemoglobin A1c measurement HbA1C [facility] Start: 2023 End: 08-30-2023 25-hydroxyvitamin D3 [Mass/volume] in Serum or Plasma VITAMIN D 25 HYDROXY Lab Routine Vitamin D deficiency Expected: 2023 (Approximate), Expires: 08/30/2023 [facility] Work Phone: Immunizations Immunization Date Immunization Notes Care Provider Martin spear 04-15-2022 COVID-19 booster vaccine, age 12+ yr, bivalent (PFIZER-BIONTRealMatch) Ceci Mancilla [facility] 04-15-2022 influenza, high-dose , quadrivalent vaccine (FLUZONE HIGH DOSE QUADRIVALENT) Ceci Mancilla [facility] 04-15-2022 influenza virus vacc ine, unspecified formulation Peter Presley MD Work Phone: [facility] 05-18-2021 zoster vaccine recombinant [facility] Work Phone: [facility] Work Phone: 03-15-2021 zoster vaccine recombinant [facility] Work Phone: [facility] Work Phone: 10-03-2020 COVID-19 vaccine, ag e 12+ yr (PFIZER-BIONTECH - PURPLE TOP) Keti [facility] Work Phone: [facility] Work Phone: 09-12-2020 COVID-19 vaccine, ag e 12+ yr (PFIZER-BIONTECH - PURPLE TOP) Keti [facility] Work Phone: [facility] Work Phone: 03-28-2020 influenza, high-dose , quadrivalent vaccine (FLUZONE HIGH DOSE QUADRIVALENT) [facility] Work Phone: [facility] Work Phone: 03-31-2019 influenza, high dose seasonal, preservative-free [facility] Work Phone: [facility] Work Phone: 02-27-2018 influenza, seasonal, injectable [facility] Work Phone: [facility] Work Phone: 03-06-2017 influenza, high dose seasonal, preservative-free [facility] Work Phone: [facility] 03-23-2016 influenza, high dose seasonal, preservative-free [facility] Work Phone: [facility] 03-15-2015 pneumococcal conjuga te vaccine, 13 valent [facility] Work Phone: [facility] 03-08-2015 influenza, seasonal, injectable [facility] Work Phone: [facility] Work Phone: 03-05-2014 influenza, seasonal, injectable [facility] Work Phone: [facility] 05-21-2013 typhoid vaccine, unspecified formulation [facility] Work Phone: [facility] Work Phone: 05-03-2013 zoster vaccine, live Maciej Schwartz [facility] Work Phone: [facility] Work Phone: 04-08-2013 influenza virus vacc ine, unspecified formulation [facility] Work Phone: [facility] Work Phone: 04-05-2013 influenza virus vacc ine, unspecified formulation [facility] Work Phone: [facility] 03-22-2013 hepatitis A vaccine, unspecified formulation [facility] Work Phone: [facility] Work Phone: 03-04-2012 pneumococcal polysaccharide vaccine, 23 valent [facility] Work Phone: [facility] 02-24-2007 hepatitis A vaccine, adult dosage [facility] Work Phone: [facility] 02-24-2007 tetanus toxoid, redu cynthia diphtheria toxoid, and acellular pertussis vaccine, adsorbed [facility] Work Phone: [facility] 03-17-2000 measles, mumps and rubella virus vaccine [facility] Work Phone: [facility] Payers Date Payer Category Payer Medicare [id number] 2021 Medicare AETNA MEDICARE A ETNA MEDICARE PPO [id number] 2021-Present [phone] [address] [place] [address] [facility] [id number] 2021 Medicare .[id number] Social History Date Type Detail Facility Start: 11-29-2011 Tobacco smoking stat us CAIS Never smoked tobacco [facility] Work Phone: Start: 08-22-2021 End: 02-28-2023 Alcohol intake Current non-drinker of alcohol (finding) [facility] Start: 08-30-2019 History SDOH Alcohol Frequency 1 [facility] Start: 08-30-2019 History SDOH Social Connections Phone 4 [facility] Start: 08-30-2019 History SDOH Social Connections Get Together 2 [facility] Start: 08-30-2019 History SDOH Physica l Activity DPW 0 [facility] Start: 08-30-2019 History SDOH Financial 3 [facility] Start: 08-30-2019 Education 17 [facility] Start: 1945 Sex Assigned At Not on file [facility] Start: 12-30-2021 End: 04-15-2022 Exposure to SARS-CoV-2 (event) Not sure [facility] Start: 11-29-2011 Tobacco use and exposure Smoke less tobacco non-user [facility] Start: 08-30-2019 End: 02-28-2023 History of Social function [place] [facility] Start: 08-30-2019 End: 02-28-2023 Social connection and isolation panel [facility] Do you belong to any clubs or organizations such as adventist groups, unions, fraternal or athletic groups, or school groups? No [facility] Are you now , , , , never or living with a partner? [facility] How often to you hav e a drink containing alcohol? Never [facility] Average Number of Drinks Not on file [facility] Work Phone: How hard is it for y ou to pay for the very basics like food, housing, medical care, and heating Somewhat hard [facility] Do you feel stress - tense, restless, nervous, or anxious, or unable to sleep at night because your mind is troubled all the time - these days [OSQ] Only a little [facility] (I/We) worried carlin er (my/our) food would run out before (I/we) got money to buy more. Never true [facility] Medical Equipment Procedure Code Equipment Code Equipment Origin al Text Equipment Identifier Dates Mrkr 8ga Site Ma lisette [employer] - [id number] Start: 02-22-2013 Start: 01-10-2021 Clinical Notes 01-25-2016 to 08-12-2023 Telephone Encounter - Grazyna Yarbrough Cma - 08/12/2023 8:55 AM ESTTelephone Encounter - Peter Presley MD - 08/11/2023 7:46 PM ESTTelephone Encounter - Renetta Foster LPN - 04/22/2023 1:40 PM EDT Note Date & Type Note Facility 08-12-2023 Miscellaneous Notes [facility] notified and verbalized understanding Grazyna Yarbrough Cma Below noted May give verbal orders Make sure have up to date discharge summary and medication list gets reconciled. [facility] with [facility] calls to report pt is going to be discharged from [facility] today with orders for Nursing, PT, and OT. [facility] is requesting a VO from provider that pcp will follow pt while in HH. 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 Patient is currently enrolled in the patient assistance program through 2022. This encounter is for the program renewal through 2023. STATUS OF APPLICATION: Can be viewed under the encounter Additional Documentation > SmartForms: [facility] RX AMB CLINIC PATIENT ASSISTANCE Completed forms sent to the dry color mixer will be available under Scanned Documents in the patient's chart. The finalized form can be found under PAP_Medication Name_Complete. PAP Broadcast Technician Team will submit and track progress on the completed PAP application. Please do NOT fax to dry color mixer unless directed by the PAP Broadcast Technician Team. Please see SmartForm described above for specifics. Please DO NOT close this encounter. Sent to patient: Contacted patient to verify information for application. Sent to prescriber: Sent to prescriber. Confirmation Received. Sent to dry color mixer: Allergies As of Date: 06/16/2023 Noted Allergy [...] by mouth daily with breakfast. Gets through [facility] PAP. - ferrous sulfate 325 mg [...] B12 deficiency [E53.8] 08/13/2021 Encounter Status:Closed by INNA MCWILLIAMS on 07/17/23 [facility] 04-22-2023 Miscellaneous Notes ELEMENTARY SCIENCE TEACHER Maria Guadalupe Rabago completed these. They have been faxed back to the company. Sw spoke with patient and verified that patient Jardiance medication is the only medication that she applies to [facility] for assistance. Sw will take forms to Dr. Presley office for prescription completion. documented in this encounter [facility] 03-05-2023 Miscellaneous Notes Sw spoke with patient in regards to [employer] and discount cab vouchers. Sw has updated brochures with transit cost and stops. Sw will mail [employer] brochures and [facility] resource guide to patient home. Patient noted that she would appreciate updated [employer] stop info and discount cab voucher guidelines. Sw left message for patient that Sw has updated [employer] stop info and discounted cab pass info. Karen noted in message to patient to let this Sw know if patient would like info mailed out to her and if she has any other social service needs. documented in this encounter [facility] 02-28-2023 Note HNO ID: [id number] Author: Peter Presley MD Service: ? Author Type: Physician Type: Progress Notes Filed: 03/31/2023 12:27 AM Note Text: This note was created using NoteWriter. Subjective Steve Russell is a 77 year [...] by mouth daily with breakfast. Gets through [facility] PAP. ferrous sulfate 325 mg (65 [...] Estimated Average Gluc (more content not included)... [facility] 02-28-2023 Peter Bah MD - 02/28/2023 3:12 PM EDT Start iron tablet over the counter 1 pill on Friday, Friday and Friday. Dose is up to you. documented in this encounter [facility] 02-28-2023 History of Presen t illness Narrative This note was created using DisabledParkter. Subjective Steve Russell is a 77 year [...] subcutaneously one time a week. Gets through [employer] PAP. empagliflozin (JARDIANCE) 25 mg tablet Take 1 tablet by mouth daily with breakfast. Gets through [facility] PAP. ferrous sulfate 325 mg (65 mg [...] the date of the service which included [id number] patient care, completing clinical documentation, obtaining and/or reviewing separately obtained history, performing a medically appropriate examination, counseling and educating the patient/family/caregiver, and ordering medications, tests, or procedures. Peter Presley MD documented in this encounter [facility] 02-13-2023 Miscellaneous Notes Left detailed vm informing patient of lab orders. Filed order Patient asking for lab orders to be completed prior to 02/28/23 appt. Radha Lea MA documented in this encounter [facility] 09-12-2022 Note HNO ID: [id number] Author: Melony Delgado [facility] Service: ? Author Type: Pharmacist Type: Progress [...] in her house. Has been out of [facility] emeds for a long time, uncertain how [...] changed insurance; thinks [facility] preferred Rx coverage: [facility] Medicare Affordability: no issues Diabetes supplies: not [...] night if can't sleep. Denies any hx MS/stroke. Denies GI issues though problem list indicates [...] list dulaglutide (TRULIC (more content not included)... [facility] 09-12-2022 Miscellaneous Notes During PharmD visit today, it was noted patient has NOT been taking many of her medications. Patient would benefit greatly from adherence packaging. The following prescriptions need sent to [facility] and are pended for PCP/SUPERVISOR OF RESEARCH's signature: Requested Prescriptions Pending Prescriptions Disp Refills [...] CBC/iron levels if clinically indicated. Thanks! Melony Delgado, Eliseo, [facility] Primary Care Clinical Pharmacist documented in this encounter [facility] 09-12-2022 History of Presen t illness [...] [facility]. Said her new pharmacy is [email or web address] - needs [facility] meds [email or web address]. Feels overwhelmed with meds. Has meds at various places in her house. Has been out of [facility] emeds for a long time, uncertain how [...] changed insurance; thinks [facility] preferred Rx coverage: [facility] Medicare Affordability: no issues Diabetes supplies: not [...] night if can't sleep. Denies any hx MS/stroke. Denies GI issues though problem list indicates [...] by mouth daily with breakfast. Gets through [facility] PAP. Has Jardiance 10mg tablets. Taking 1 tablet daily. She thinks she gets it through her pharmacy, not [facility] Need to call [facility] to check on application status escitalopram [...] changes; will send refill request to PCP Jarmisti -- ran out of the 10mg tabs; [facility] tasneem completed for 25mg tabs --> PharmD called [facility] (on hold for ~30 mins); confirmed she [...] benefit greatly from adherence packaging. PharmD called [facility] to see if they accept patient's insurance and fire control technician g believes it would be accepted. PharmD provided patient info and insurance information. Will have all prescriptions sent to [facility] through their adherence packaging and mail delivery service Patient due for labwork. Requested she have drawn in the next 1-2 weeks, she was agreeable to doing so. 2. Type 2 diabetes mellitus without complication, without long-term current use of insulin ([facility]) - ICD9: 250.00, ICD10: E11.9 A1c goal < 8%; uncontrolled (last A1c 11.9%); no SMBG log to review; patient reports consistently taking metformin and Trulicity and tolerating fine; is out of glipizide and Jardiance --> needs script sent to new pharmacy for glipizide and need to contact [facility] regarding Jardiance status; patient interested in [...] 10/10. Patient verbalized understanding of instructions. Melony Delgado PharmD, [facility] Primary Care Clinical Pharmacist The majority of the pharmacy visit (> 50%) was spent counseling and/or coordinating care for the patient. interaction: telephonic time was 90 minutes. documented in this encounter [facility] 07-25-2022 History of Presen t illness [...] modifications and med adherence encouraged. Consult to [facility] to see if qualifies for Medicaid. [...] sleeping in Pharmacy: [facility] Rx coverage: [facility] Medicare Affordability: no issues Diabetes supplies: not [...] Esophageal reflux Moderate sized HH on CT 2012 Goiter, unspecified Irritable bowel syndrome Mixed incontinence [...] complication, without long-term current use of insulin ([facility]) - ICD9: 250.00, ICD10: E11.9 A1c goal < 8%; uncontrolled (last A1c 11.9%); no SMBG log to review and no recent readings to report; pt feels Bgs are likely very high; reports adherence to medications though external fill hx suggested nonadherence may be likely; patient just received shipment of [employer] 3mg pens so will have her increase [...] verbalized understanding of instructions. Melony Delgado PharmD, [facility] Primary Care Clinical Pharmacist The majority of the pharmacy visit (> 50%) was spent counseling and/or coordinating care for the patient. interaction: face to face time was 45 minutes. documented in this encounter [facility] 07-25-2022 Instructions Melony Delgado RPh - 07/25/2022 2:30 PM EST Call Medicaid Shared Services number [phone], to reach out to our area services [...] the 25mg tablets. documented in this encounter [facility] 07-09-2022 Miscellaneous Notes Rec'd fax from [facility] patient assistance program. This says pt is approved from 07/09/22 to 06/29/2023 unless pts circumstances changes. documented in this encounter [facility] 06-20-2022 Miscellaneous Notes Sw and patient [...] provided patient with Medicaid Shared Services number [phone], to reach out to our area services to see about material that they could provide to patient regarding how Medicaid assistance works with Medicare. Sw noted that calling above number can be screened over the phone for Medicaid. Patient reports that she will call after the of the year as she is busy with the holidays. documented in this encounter [facility] 06-20-2022 History of Presen t illness [...] complication, without long-term current use of insulin ([facility]) - ICD9: 250.00, ICD10: E11.9 (primary diagnosis) [...] advised to bring in all medications for [employer] med review at f/up appt Financial resources: Patient wants to know if qualifies for Medicaid - will consult PCSW - PRIMARY CARE SOCIAL WORK CONSULT Follow-up Patient is scheduled to see PCP team on 08/13/22. Patient to have f/up with PharmD team on 07/25/22. Patient verbalized understanding of instructions. Melony Delgado PharmD, NID[facility] Primary Care Clinical Pharmacist The majority of the pharmacy visit (> 50%) was spent counseling and/or coordinating care for the patient. interaction: face to face time was 65 minutes. documented in this encounter [facility] 06-20-2022 Instructions Melony Delgado RPh - [...] you need refills. documented in this encounter [facility] 05-30-2022 Miscellaneous Notes PAP technicians completed PAP application. PCP portion placed on PCP's desk. Will get patient's signatures at upcoming appt on 06/20. Melony Delgado PharmD, [facility] Primary [facility] Clinical Pharmacist documented in this encounter [facility] 05-17-2022 Miscellaneous Notes Patient has been [...] advise. Quyen Ramos documented in this encounter [facility] 04-29-2022 Miscellaneous Notes Patient recently referred by PCP to [facility] for DM mngt Called patient to schedule initial appt Unable to reach patient, no dialtone when calling. 3rd outreach attempt for patient, will plan to send letter. Melony Delgado PharmD, [facility] Primary Care Clinical Pharmacist Malcolm Torres [facility] documented in this encounter [facility] 04-16-2022 Miscellaneous Notes Telephoned the patient to schedule a new Primary Care pharmacy appt. Unable to leave a message. Phone saying the call did not go through. documented in this encounter [facility] 01-09-2022 Instructions Harsha Ortiz MD - 01/09/2022 10:56 AM EDT Images from the original note were not included. documented in this encounter [facility] 01-09-2022 History of Presen t illness [...] others. I have seen and examined Steve Nielsenschmidt. I have discussed the case and the management of this patient's care with the Resident/Fellow, if applicable. I also have reviewed and agree with the assessment and plan as stated above and agree with all of its relevant components. Harsha Ortiz MD documented in this encounter [facility] 12-11-2021 History of Presen t illness Narrative This note was created using [employer]. Subjective Steve Russell is a 76 year [...] Peter Presley MD documented in this encounter [facility] 09-24-2021 Miscellaneous Notes This encounter was opened in error. [facility] documented in this encounter [facility] documented as of this encounter (statuses as of 03/31/2023) [facility] History of Past illness Narrative* Problem [...] of this encounter (statuses as of 04/22/2023) [facility] History of Past illness Narrative* Problem [...] as of this encounter (statuses as of 08/12/2023) [facility] History of Past illness Narrative* Problem Noted Date Resolved Date Uncontrolled type 2 diabetes mellitus without complication, without long-term current use of insulin 01/25/2016 08/20/2018 HYPOTHYROIDISM NOS 03/24/2007 04/02/2015 DIABETES MELLITUS TYPE II-UNCOMPL 01/05/2007 04/02/2015 Depressive disorder, not elsewhere classified 04/02/2015 HYPERLIPIDEMIA NEC/NOS 01/05/2007 5 documented as of this encounter (statuses as of 09/24/2021) [facility] History of Past illness Narrative* Problem Noted Date Resolved Date Uncontrolled type 2 diabetes mellitus without complication, without long-term current use of insulin 01/25/2016 08/20/2018 HYPOTHYROIDISM NOS 03/24/2007 04/02/2015 DIABETES MELLITUS TYPE II-UNCOMPL 01/05/2007 04/02/2015 Depressive disorder, not elsewhere classified 04/02/2015 HYPERLIPIDEMIA NEC/NOS 01/05/2007 5 documented as of this encounter (statuses as of 01/09/2022) [facility] History of Past illness Narrative* Problem Noted Date Resolved Date Uncontrolled type 2 diabetes mellitus without complication, without long-term current use of insulin 01/25/2016 08/20/2018 HYPOTHYROIDISM NOS 03/24/2007 04/02/2015 DIABETES MELLITUS TYPE II-UNCOMPL 01/05/2007 04/02/2015 Depressive disorder, not elsewhere classified 04/02/2015 HYPERLIPIDEMIA NEC/NOS 01/05/2007 5 documented as of this encounter (statuses as of 02/02/2022) [facility] History of Past illness Narrative* Problem Noted Date Resolved Date Uncontrolled type 2 diabetes mellitus without complication, without long-term current use of insulin 01/25/2016 08/20/2018 HYPOTHYROIDISM NOS 03/24/2007 04/02/2015 DIABETES MELLITUS TYPE II-UNCOMPL 01/05/2007 04/02/2015 Depressive disorder, not elsewhere classified 04/02/2015 HYPERLIPIDEMIA NEC/NOS 01/05/2007 5 documented as of this encounter (statuses as of 04/16/2022) [facility] History of Past illness Narrative* Problem Noted Date Resolved Date Uncontrolled type 2 diabetes mellitus without complication, without long-term current use of insulin 01/25/2016 08/20/2018 HYPOTHYROIDISM NOS 03/24/2007 04/02/2015 DIABETES MELLITUS TYPE II-UNCOMPL 01/05/2007 04/02/2015 Depressive disorder, not elsewhere classified 04/02/2015 HYPERLIPIDEMIA NEC/NOS 01/05/2007 5 documented as of this encounter (statuses as of 04/29/2022) [facility] History of Past illness Narrative* Problem Noted Date Resolved Date Uncontrolled type 2 diabetes mellitus without complication, without long-term current use of insulin 01/25/2016 08/20/2018 HYPOTHYROIDISM NOS 03/24/2007 04/02/2015 DIABETES MELLITUS TYPE II-UNCOMPL 01/05/2007 04/02/2015 Depressive disorder, not elsewhere classified 04/02/2015 HYPERLIPIDEMIA NEC/NOS 01/05/2007 5 documented as of this encounter (statuses as of 05/17/2022) [facility] History of Past illness Narrative* Problem Noted Date Resolved Date Uncontrolled type 2 diabetes mellitus without complication, without long-term current use of insulin 01/25/2016 08/20/2018 HYPOTHYROIDISM NOS 03/24/2007 04/02/2015 DIABETES MELLITUS TYPE II-UNCOMPL 01/05/2007 04/02/2015 Depressive disorder, not elsewhere classified 04/02/2015 HYPERLIPIDEMIA NEC/NOS 01/05/2007 5 documented as of this encounter (statuses as of 05/30/2022) [facility] History of Past illness Narrative* Problem Noted Date Resolved Date Uncontrolled type 2 diabetes mellitus without complication, without long-term current use of insulin 01/25/2016 08/20/2018 HYPOTHYROIDISM NOS 03/24/2007 04/02/2015 DIABETES MELLITUS TYPE II-UNCOMPL 01/05/2007 04/02/2015 Depressive disorder, not elsewhere classified 04/02/2015 HYPERLIPIDEMIA NEC/NOS 01/05/2007 5 documented as of this encounter (statuses as of 06/21/2022) [facility] History of Past illness Narrative* Problem Noted Date Resolved Date Uncontrolled type 2 diabetes mellitus without complication, without long-term current use of insulin 01/25/2016 08/20/2018 HYPOTHYROIDISM NOS 03/24/2007 04/02/2015 DIABETES MELLITUS TYPE II-UNCOMPL 01/05/2007 04/02/2015 Depressive disorder, not elsewhere classified 04/02/2015 HYPERLIPIDEMIA NEC/NOS 01/05/2007 5 documented as of this encounter (statuses as of 06/21/2022) [facility] History of Past illness Narrative* Problem Noted Date Resolved Date Uncontrolled type 2 diabetes mellitus without complication, without long-term current use of insulin 01/25/2016 08/20/2018 HYPOTHYROIDISM NOS 03/24/2007 04/02/2015 DIABETES MELLITUS TYPE II-UNCOMPL 01/05/2007 04/02/2015 Depressive disorder, not elsewhere classified 04/02/2015 HYPERLIPIDEMIA NEC/NOS 01/05/2007 5 documented as of this encounter (statuses as of 07/09/2022) [facility] History of Past illness Narrative* Problem Noted Date Resolved Date Uncontrolled type 2 diabetes mellitus without complication, without long-term current use of insulin 01/25/2016 08/20/2018 HYPOTHYROIDISM NOS 03/24/2007 04/02/2015 DIABETES MELLITUS TYPE II-UNCOMPL 01/05/2007 04/02/2015 Depressive disorder, not elsewhere classified 04/02/2015 HYPERLIPIDEMIA NEC/NOS 01/05/2007 5 documented as of this encounter (statuses as of 07/25/2022) [facility] History of Past illness Narrative* Problem Noted Date Resolved Date Uncontrolled type 2 diabetes mellitus without complication, without long-term current use of insulin 01/25/2016 08/20/2018 HYPOTHYROIDISM NOS 03/24/2007 04/02/2015 DIABETES MELLITUS TYPE II-UNCOMPL 01/05/2007 04/02/2015 Depressive disorder, not elsewhere classified 04/02/2015 HYPERLIPIDEMIA NEC/NOS 01/05/2007 5 documented as of this encounter (statuses as of 09/12/2022) [facility] History of Past illness Narrative* Problem Noted Date Resolved Date Uncontrolled type 2 diabetes mellitus without complication, without long-term current use of insulin 01/25/2016 08/20/2018 HYPOTHYROIDISM NOS 03/24/2007 04/02/2015 DIABETES MELLITUS TYPE II-UNCOMPL 01/05/2007 04/02/2015 Depressive disorder, not elsewhere classified 04/02/2015 HYPERLIPIDEMIA NEC/NOS 01/05/2007 5 documented as of this encounter (statuses as of 09/12/2022) [facility] History of Past illness Narrative* Problem Noted Date Diagnosed Date Resolved Date Uncontrolled type 2 diabetes mellitus without complication, without long-term current use of insulin 01/25/2016 08/20/2018 HYPOTHYROIDISM NOS 03/24/2007 5 DIABETES MELLITUS TYPE II-UNCOMPL 01/05/2007 04/02/2015 Depressive disorder, not elsewhere classified 01/06/20 07 04/02/2015 HYPERLIPIDEMIA NEC/NOS 01/05/200704/02 documented as of this encounter (statuses as of 02/13/2023) [facility] History of Past illness Narrative* Problem Noted Date Diagnosed Date Resolved Date Uncontrolled type 2 diabetes mellitus without complication, without long-term current use of insulin 01/25/2016 08/20/2018 HYPOTHYROIDISM NOS 03/24/2007 5 DIABETES MELLITUS TYPE II-UNCOMPL 01/05/2007 04/02/2015 Depressive disorder, not elsewhere classified 01/06/20 07 04/02/2015 HYPERLIPIDEMIA NEC/NOS 01/05/200704/02 documented as of this encounter (statuses as of 03/05/2023) [facility] note* Diagnosis OPENED IN ERROR- Primary To allow closing an encounter opened in error (used in SmartSet) documented in this encounter [facility] note* Diagnosis Combined forms of age-related cataract of both eyes- Primary Other and combined forms of senile cataract Type 2 diabetes mellitus without retinopathy (HCC) Type II or unspecified type diabetes mellitus without mention of complication, not stated as uncontrolled Pil-xnl-[id number] corneal dystrophy of both eyes documented in this encounter [facility] note* Diagnosis Uncontrolled type 2 diabetes mellitus with hyperglycemia (HCC)- Primary Recurrent kidney stones Calculus of kidney Esophageal reflux Depression, unspecified depression type Hyperlipidemia, unspecified hyperlipidemia type Acquired hypothyroidism Unspecified hypothyroidism B12 deficiency Other B-complex deficiencies Encounter for long-term current use of medication Iron deficiency anemia, unspecified iron deficiency anemia type documented in this encounter [facility] note* Diagnosis Esophageal reflux Persistent depressive disorder documented in this encounter [facility] note* Diagnosis Controlled type 2 diabetes mellitus without complication, without long-term current use of insulin (HCC)- Primary Medication management Encounter for long-term (current) use of other medications documented in this encounter [facility] note* Diagnosis Type 2 diabetes mellitus without complication, without long-term current use of insulin (HCC)- Primary Medication management Encounter for long-term (current) use of other medications documented in this encounter [facility] note* Diagnosis Medication management- Primary Encounter for long-term (current) use of other medications Type 2 diabetes mellitus without complication, without long-term current use of insulin (HCC) Hyperlipidemia, unspecified hyperlipidemia type [facility] Diagnosis Esophageal reflux Persistent depressive disorder Acquired hypothyroidism Unspecified hypothyroidism documented in this encounter [facility] note* Diagnosis Acquired hypothyroidism- Primary Unspecified hypothyroidism B12 deficiency Other B-complex deficiencies Hyperlipidemia, unspecified hyperlipidemia type Iron deficiency anemia, unspecified iron deficiency anemia type Uncontrolled type 2 diabetes mellitus with hyperglycemia (HCC) documented in this encounter [facility] note* Diagnosis Acquired hypothyroidism- Primary Unspecified hypothyroidism Type 2 diabetes mellitus without complication, without long-term current use of insulin (HCC) Iron deficiency anemia, unspecified iron deficiency anemia type B12 deficiency Other B-complex deficiencies Vitamin D deficiency Unspecified vitamin D deficiency Encounter for long-term current use of medication documented in this encounter [facility] Summary Purpose Family History No Family History Records FoundNo Family History Records Found Advance Directives No Advanced Directives Records FoundDocuments on File 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 In the event of a Fluress shortage, administer [place]-Fluor 1 drop into both eyes as directed [...] content) DATE CREATED AUTHOR AUTHOR'S ORGANIZ ATION 08/13/2023 [facility] Source Comments (unrecognize d section and content) In the event this informatio n is protected by the Federal Confidentiality of Alcohol and Drug Abuse Patient Records regulations: The Federal rules restrict any use of the information to criminally investigate or prosecute any alcohol or drug abuse patient.[facility] the event this information is protected by the Federal Confidentiality of Alcohol and Drug Abuse Patient Records regulations: The Federal rules restrict any use of the information to criminally investigate or prosecute any alcohol or drug abuse patient.[facility] the event this information is protected by the Federal Confidentiality of Alcohol and Drug Abuse Patient Records regulations: The Federal rules restrict any use of the information to criminally investigate or prosecute any alcohol or drug abuse patient.[facility] the event this information is protected by the Federal Confidentiality of Alcohol and Drug Abuse Patient Records regulations: The Federal rules restrict any use of the information to criminally investigate or prosecute any alcohol or drug abuse patient.[facility] the event this information is protected by the Federal Confidentiality of Alcohol and Drug Abuse Patient Records regulations: The Federal rules restrict any use of the information to criminally investigate or prosecute any alcohol or drug abuse patient.[facility] the event this information is protected by the Federal Confidentiality of Alcohol and Drug Abuse Patient Records regulations: The Federal rules restrict any use of the information to criminally investigate or prosecute any alcohol or drug abuse patient.[facility] the event this information is protected by the Federal Confidentiality of Alcohol and Drug Abuse Patient Records regulations: The Federal rules restrict any use of the information to criminally investigate or prosecute any alcohol or drug abuse patient.[facility] the event this information is protected by the Federal Confidentiality of Alcohol and Drug Abuse Patient Records regulations: The Federal rules restrict any use of the information to criminally investigate or prosecute any alcohol or drug abuse patient.[facility] the event this information is protected by the Federal Confidentiality of Alcohol and Drug Abuse Patient Records regulations: The Federal rules restrict any use of the information to criminally investigate or prosecute any alcohol or drug abuse patient.[facility] the event this information is protected by the Federal Confidentiality of Alcohol and Drug Abuse Patient Records regulations: The Federal rules restrict any use of the information to criminally investigate or prosecute any alcohol or drug abuse patient.[facility] the event this information is protected by the Federal Confidentiality of Alcohol and Drug Abuse Patient Records regulations: The Federal rules restrict any use of the information to criminally investigate or prosecute any alcohol or drug abuse patient.[facility] the event this information is protected by the Federal Confidentiality of Alcohol and Drug Abuse Patient Records regulations: The Federal rules restrict any use of the information to criminally investigate or prosecute any alcohol or drug abuse patient.[facility] the event this information is protected by the Federal Confidentiality of Alcohol and Drug Abuse Patient Records regulations: The Federal rules restrict any use of the information to criminally investigate or prosecute any alcohol or drug abuse patient.[facility] the event this information is protected by the Federal Confidentiality of Alcohol and Drug Abuse Patient Records regulations: The Federal rules restrict any use of the information to criminally investigate or prosecute any alcohol or drug abuse patient.[facility] the event this information is protected by the Federal Confidentiality of Alcohol and Drug Abuse Patient Records regulations: The Federal rules restrict any use of the information to criminally investigate or prosecute any alcohol or drug abuse patient.[facility] the event this information is protected by the Federal Confidentiality of Alcohol and Drug Abuse Patient Records regulations: The Federal rules restrict any use of the information to criminally investigate or prosecute any alcohol or drug abuse patient.[facility] the event this information is protected by the Federal Confidentiality of Alcohol and Drug Abuse Patient Records regulations: The Federal rules restrict any use of the information to criminally investigate or prosecute any alcohol or drug abuse patient.[facility] the event this information is protected by the Federal Confidentiality of Alcohol and Drug Abuse Patient Records regulations: The Federal rules restrict any use of the information to criminally investigate or prosecute any alcohol or drug abuse patient.[facility] Reason for Visit (unrecogniz ed section [...] Labs prior Reason Comments pt assistance forms Reason Comments HH Verbal orders Care Teams (unrecognized sec tion and content) Relief Charge Nurse Relationship Specialty Start Date End Date Peter Presley MD [address] [place] [address] PCP - General 03/24/07 [facility]Mid [facility] [address] [place] [address] Pharmacist Pharmacy 02/26/19 Relief Charge Nurse Relationship Specialty Start Date End Date Peter Presley MD [address] [place] [address] PCP - General 03/24/07 RoloMaciej brunoMid [facility] [address] [place] [address] Pharmacist Pharmacy 02/26/19 Relief Charge Nurse Relationship Specialty Start Date End Date Peter Presley MD [address] [place] [address] PCP - General 03/24/07 JessicaMaciejMid [facility] [address] [place] [address] Pharmacist Pharmacy 02/26/19 Relief Charge Nurse Relationship Specialty Start Date End Date Peter Presley MD [address] [place] [address] PCP - General 03/24/07 Relief Charge Nurse Relationship Specialty Start Date End Date Peter Presley MD [address] [place] [address] PCP - General 03/24/07 Relief Charge Nurse Relationship Specialty Start Date End Date Peter Presley MD [address] [place] [address] PCP - General 03/24/07 Melony Delgado, [facility] [address] [place] [id number] Pharmacist Pharmacy 06/20/22 Relief Charge Nurse Relationship Specialty Start Date End Date Peter Presley MD [address] [place] [address] PCP - General 03/24/07 [place] [address] [place] [address] Pharmacist Pharmacy 06/20/22 Relief Charge Nurse Relationship Specialty Start Date End Date Peter Presley MD [address] [place] [address] PCP - General 03/24/07 [place] [address] [place] [address] Pharmacist Pharmacy 06/20/22 Relief Charge Nurse Relationship Specialty Start Date End Date Peter Presley MD [address] [place] [address] PCP - General 03/24/07 [place] [address] [place] [address] Pharmacist Pharmacy 06/20/22 Relief Charge Nurse Relationship Specialty Start Date End Date Peter Presley MD [address] [place] [address] PCP - General 03/24/07 [place] [address] [place] [address] Pharmacist Pharmacy 06/20/22 Relief Charge Nurse Relationship Specialty Start Date End Date Peter Presley MD [address] [place] [address] PCP - General 03/24/07 [place] [address] [place] [address] Pharmacist Pharmacy 06/20/22 Relief Charge Nurse Relationship Specialty Start Date End Date Peter Presley MD [address] [place] [address] PCP - General 03/24/07 OtisMelony jacobsCarrie [place] [address] [place] [address] Pharmacist Pharmacy 06/20/22 Relief Charge Nurse Relationship Specialty Start Date End Date Peter Presley MD [address] [place] [address] PCP - General 03/24/07 Otis, [place] [address] [place] [address] Pharmacist Pharmacy 06/20/22 Relief Charge Nurse Relationship Specialty Start Date End Date Peter Presley MD [address] [place] [address] PCP - General 03/24/07 Otis, [place] [address] [place] [address] Pharmacist Pharmacy 06/20/22 Relief Charge Nurse Relationship Specialty Start Date End Date Peter Presley MD [address] [place] [address] PCP - General 03/24/07 [place], [place] [address] [place] [address] Pharmacist Pharmacy 06/20/22 FOR RECORDS PERTAINING TO [...] BE BASED ON THE PRIMARY CLINICAL RECORDS. [facility] [employer] [facility]. provides no warranty or guarantee of the accuracy or completeness of information in this document.
[2023-08-14 23:14] LABS: Absolute Lymphocyte Count 0.75 X10^3/uL (0.83-4.51); Basophil# 0.02 X10^3/uL; Basophil% 0.5 % (0-1); Eosinophil# 0.06 X10^3/uL; Eosinophils% 1.4 % (0-5); Hematocrit 36.9 % (37-47); Hemoglobin 10.7 g/dL (12.0-15.0); Lymphocyte # 0.75 X10^3/ul (0.83-4.51); Lymphocyte % 17.4 % (19-41); Mean Corpuscular Hgb 24.4 pg (27.0-32.0); Mean Corpuscular Volume 84.2 fL (81-99); Mean Platelet Vol. 11.7 fl (6.2-12.0); Monocyte# 0.46 X10^3/uL; Monocyte% 10.7 % (0-10); NRBC Flagged by Analyzer 0 % (0-5); Neutrophil # 2.98 X10^3/uL (2.7-7.7); Neutrophil % 69.3 % (47-70); Platelet Count 135 K/mm3 (150-450); RBC Distribution Width CV 19.8 % (11.6-14.6); RBC Distribution Width SD 58.6 fl (35.1-43.9); Red Blood Count 4.38 M/mm3 (4.2-5.4); White Blood Count 4.3 K/mm3 (4.4-11.0)
[2023-08-14 23:15] LABS: POSITIVE COUNT NO; POSITIVE DIFFERENTIAL NO; POSITIVE MORPHOLOGY NO
[2023-08-14] MEDS: 0.9% Normal Saline (1000mL) 1,000 ML 150 ML IV (23:25)
[2023-08-14 23:37] LABS: Mucous, Urine 0 SEEN /hpf (<or=2+); Squamous Epithelial Cells - UA 0 SEEN /hpf (5-10)
[2023-08-14 23:42] LABS: Color, Urine Yellow (Yellow); Glucose, Dipstick 1000 mg/dl (Normal); Ketone-Dipstick 5 mg/dl (Negative); Leukocyte Esterase-Dipstick 100 /ul (Negative); Nitrite-Dipstick Negative (Negative); Occult Blood-Urine 250 /ul (Negative); Protein-Dipstick Negative (Negative); Urine Bilirubin Dipstick Negative (Negative); Urine Clarity Sl. Cloudy (Clear); Urine Urobilinogen Normal (Normal)
[2023-08-14 23:57] LABS: Bacteria 1+ /hpf (None Seen); Red Blood Cells-Urine 5-10 SEEN /hpf (0-5); Renal Epithelial Cells 0 SEEN /hpf (0-5); Transitional Epithelial - Ur 0 SEEN /hpf (0-5); White Blood Cells 25-50 SEEN /hpf (0-5)
[2023-08-15] VITALS (8 sets, daily range): BP systolic 96–129; BP diastolic 47–68; PULSE 63–83; RESP 15–20; TEMP 36.4–37.2; O2SAT 94–98; BMI 29.0; BMI 27.8
[2023-08-15] MEDS: Ceftriaxone 1 GM/50 ML BAG IV ×2 (00:22→10:22)
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
[2023-08-15 00:44] LABS: Anion Gap 7 (5-15); BUN 24 mg/dL (7-18); Calcium,Total 10.1 mg/dL (8.5-10.1); Chloride 101 mmol/L (98-107); Creatinine, Serum 0.89 mg/dL (0.55-1.02); EST Glomerular Filtration Rate 65 mL/min (>60); Est Glom Filt Rate - Afr Amer 79 mL/min (>60); Estimated Creatinine Clearance 42.48 ml/min; Glucose 681 mg/dL (74-106); Potassium 4.6 mmol/L (3.5-5.1); Sodium Level 135 mmol/L (136-145); Troponin-I HS 8 pg/mL (3.0-54.0)
[2023-08-15] MEDS: Insulin Lispro 100 UNIT/ML INSULN.PEN 12 UNIT SC (00:50)
--- NOTE | 2023-08-15 01:00 | HP.PCM.HOS_ITS ---
[facility] - General General Date of Admission: 08/15/23 Date of Service: 08/15/23 Chief Complaint: Hyperglycemia and Unable to Take Care of Herself at Home. [facility] Narrative STEVE RUSSELL, is a 78 F with a past medical history of hyperlipidemia, hypothyroidism, DM-2; uncontrolled with hyperglycemia, SAMMY, history of renal calculi, chronic depression, GERD, OA; with history of TKR and recent admission here from August 09, 2023 to August 12, 2023 for treatment of adult [id number] who re-presents to [facility] ER complaining of hyperglycemia and being unable to care for herself at home. Ms. Russell reports her symptoms have been ongoing since her discharge back home as she has been unable to care for herself in spite or 'Meals on Wheels' and protective services consultation. She states her blood sugar spiked to > 600 mg/dL with frequent urination complicated by urinary incontinence and she has a hard time just trying to get up so she activated EMS and was noted to be disheveled, unkempt and reeking of urine. She further states that she only had a tomato to eat today and she admits she did not take her medications today. She denies associated fever, chills, nausea, vomiting, abdominal pain, chest pain or SOB but she does admit to a recent fall with a fresh bruise over her Right forehead. In the ER she was noted to have Severe Hyperglycemia of 681 mg/dL consistent with suspected DM-2; uncontrolled with hyperglycemia without ketoacidosis complicated by a UA positive for acute cystitis; with microscopic hematuria in the setting of previously diagnosed adult [id number] causing her not to be able to care for herself any longer at home and she was then admitted to the general medical floor for ongoing care for a stay that is expected to be greater than 48 hours. [facility] Medical History Diabetes Head injury Kidney stones Home Medications levothyroxine 50 mcg tablet 50 mcg PO DAILY thyroid 06/07/14 [History Last Taken Unknown] metformin 500 mg tablet,extended release 24 hr 2,000 mg PO BREAKFAST DM 06/07/14 [History Last Taken Unknown] pantoprazole 40 mg tablet,delayed release 40 mg PO BREAKFAST GERD 06/07/14 [Hist ory Last Taken Unknown] aspirin 81 mg tablet,delayed release 81 mg PO DAILY@0800 cad 05/28/19 [History Last Taken Unknown] atorvastatin 40 mg tablet 40 mg PO QHS CHOLESTEROL 05/28/19 [History Last Taken Unknown] empagliflozin 10 mg tablet 10 mg PO DAILY dm 05/28/19 [History Last Taken Unknown] escitalopram oxalate 10 mg tablet 10 mg PO DAILY DEPRESS 05/28/19 [History Last Taken Unknown] ferrous gluconate 236 mg (27 mg iron) tablet 65 mg PO BID supplement 05/28/19 [History Last Taken Unknown] levothyroxine 25 mcg tablet 25 mcg PO .MWF thyroid 08/09/23 [History Last Taken Unknown] glipizide 10 mg tablet 10 mg PO BID #60 tabs 08/12/23 [Rx Last Taken Unknown] Allergy/AdvReac Type Severity Reaction Status Date / Time venlafaxine HCl Allergy Rash Verified 08/09/23 11:14 [From Effexor] meclizine AdvReac Other Verified 08/09/23 11:14 Surgical History H/O: section History of cholecystectomy History of knee joint replacement Social History Smoking Status: Never smoker ROS ROS Narrative Review of systems: Constitutional: She admits to lethargy and generalized weakness but she denies chills, fever, sweats or weight loss Eyes: She denies blurry vision, change in vision or discharge from eyes. ENT: She admits to severe dry mouth but she denies runny nose, sore throat or ear pain. Cardiovascular: She denies chest pain, orthopnea or palpitations Respiratory: She denies cough, dyspnea on exertion, orthopnea or sputum Gastrointestinal: She denies abdominal pain, diarrhea, nausea or vomiting Genitourinary: She denies dysuria, hematuria or urinary frequency Musculoskeletal: She denies arthralgias, back pain, myalgias or neck pain Skin: She admits to a hematoma over her Right forehead after a recent fall Neurologic: She reports generalized weakness with unsteady gait but she denies headache or focal neurologic deficits Psychiatric: She denies anxiety, depression or suicidal thoughts Endocrinology: She admits to severe polydipsia, polyphagia and polyuria Hematologic: She denies easy bleeding, easy bruising or lymphadenopathy Allergic: She denies lip swelling, tongue swelling or urticaria 14 point ROS otherwise negative except for positives noted above. Vital Signs Vital Signs Vital Signs: 08/14/23 22:23 08/15/23 00:17 08/15/23 00:19 Temperature 97.1 F L Temperature Source Temporal Pulse Rate 78 63 Respiratory Rate 16 20 H Respiratory Effort Normal Non-Labored Respiratory Pattern Normal Blood Pressure 91/79 124/68 H Blood Pressure Mean 83 86 Pulse Ox 98 97 Oxygen Delivery Method Room Air Room Air Weight Weight: 143 lb 11.862 oz Body Mass Index (BMI) 29.0 Physical Exam Const alert, oriented x3 and no apparent distress Constitutional Narrative: Patient appears disheveled and unkept. General Appearance: cooperative HEENT normocephalic and hearing grossly normal bilaterally HEENT Narrative: Patient has a hematoma over her Right forehead and her mucous membranes are extremely dry. Eyes PERRL and EOMs intact bilaterally Neck no lymphadenopathy and supple Resp normal respiratory effort, no retractions, no use of accessory muscles and clear to auscultation bilaterally Cardio regular rate and regular rhythm GI normal to inspection, nondistended, normoactive bowel sounds, soft to palpation, non-tender and non-distended Extremity normal to inspection and full ROM Skin Skin Narrative: Patient has a large hematoma over her Right forehead. No rash is noted at this time. Neuro oriented x3, CN's II-XII intact bilaterally, moves all extremities and no focal motor deficits Sensorium / Orientation: awake, alert, oriented to person, oriented to place and oriented to time Speech: speech normal Psych Mood & Affect: anxious Results Medical Records Data Attestation: I reviewed the patient's medical records Lab / Micro Data Attestation: I reviewed the patient's lab results. 08/14/23 23:07 08/15/23 00:02 Labs: Laboratory Results - last 24 hr 08/14/23 23:07: WBC 4.3 L, RBC 4.38, Hgb 10.7 L, Hct 36.9 L, MCV 84.2, MCH 24.4 L, MCHC 29.0 L D, RDW Std Deviation 58.6 H, RDW Coeff of Nicholas 19.8 H, Plt Count 135 L, MPV 11.7, Immature Gran % (Auto) 0.700, Neut % (Auto) 69.3, Lymph % (Auto) 17.4 L, [place] % (Auto) 10.7 H, Eos % (Auto) 1.4, Baso % (Auto) 0.5, Absol wrangell Neuts (auto) 3.0, Absolute Lymphs (auto) 0.75 L, Nucleated RBC % 0, Sodium Cancelled, Potassium Cancelled, Chloride Cancelled, Carbon Dioxide Cancelled, Anion Gap Cancelled, BUN Cancelled, Creatinine Cancelled, Estim Creat Clear Calc Cancelled, Est GFR (MDRD) Af Amer Cancelled, Est GFR (MDRD) Non-Af Cancelled, BUN/Creatinine Ratio Cancelled, Glucose Cancelled, Calcium Cancelled, Troponin I High Sens Cancelled 08/14/23 23:32: Urine Color Yellow, Urine Clarity Sl. Cloudy, Urine pH 7.0, Ur Specific [place] 1.010, Urine Protein Negative, Urine Glucose (UA) 1000 H, Urine Ketones 5 H, Urine Occult Blood 250 H, Urine Nitrite Negative, Urine Bilirubin Negative, Urine Urobilinogen Normal, Ur Leukocyte Esterase 100 H, Urine RBC 5-10 SEEN, Urine WBC 25-50 SEEN, Ur Squamous Epith Cells 0 SEEN, Ur Transition Epith Cell 0 SEEN, Ur Renal Epithelial Cell 0 SEEN, Urine Bacteria 1+, Urine Mucus 0 SEEN 08/15/23 00:02: Sodium 135 L, Potassium 4.6, Chloride 101, Carbon Dioxide 27.0, Anion Gap 7, BUN 24 H, Creatinine 0.89, Estim Creat Clear Calc 42.48, Est GFR (MDRD) Af Amer 79, Est GFR (MDRD) Non-Af 65, BUN/Creatinine Ratio 27.0 H, Glucose 681 H*, Calcium 10.1, Troponin I High Sens 8 Assessment & Plan Assessment/Plan (1) Hyperglycemia: (2) Acute dehydration: (3) Acute UTI: (4) Adult failure to thrive: PLAN: Plan 1. Severe Hyperglycemia of 681 mg/dL consistent with suspected DM-2; uncontrolled with hyperglycemia without ketoacidosis but with Dehydration evidenced by BUN/Creatinine ratio > 20:1 - Admit to general medical floor and g patrizia vigorous IVF. Give Lantus 45 units sq once now plus cover with SSI. In case her blood glucose remains elevated we will start a non-DKA insulin drip. Recheck BMP in the AM to ensure improvement. 2. UA positive for Acute Cystitis; with microscopic hematuria and leukopenia of 4.3 present on admission complicating #1 - Continue IV Rocephin begun in the ER and await culture and sensitivity data. Give Tylenol prn pain or fever. 3. Recent admission here from August 09, 2023 to August 12, 2023 for treatment of adult [id number] with patient needing ECF placement as she cannot safely take care of herself at home compounding #1 & #2 - We will consult PT/OT and Case Management to see this patient on-rounds in the AM to arrange ECF placement with help appreciated in advance. 4. Hyperlipidemia - Resume statin as previous. 5. Hypothyroidism - Continue Synthroid and check TSH. 6. SAMMY - Iron supplementation to be maintained at current levels. 7. History of renal calculi - Noted with no evidence of recurrence. 8. Chronic depression - Continue Escitalopram. 9. GERD - Protonix dosing to be resumed. 10. OA - Stable. Give Tylenol prn. 11. DVT prophylaxis - Lovenox 40 mg sq daily. Total time: Approximately 55 minutes. Charges/Coding Visit Charges Inpatient E&M: 00294 Init Hosp L2
--- OUTSIDE RECORDS SUMMARY | 2023-08-15 02:05 | XMS RPT_ITS | CCD ---
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 this encounter (statuses as of 04/22/2023) [facility] History of Past illness Narrative* [...] of this encounter (statuses as of 08/12/2023) [facility] History of Past illness Narrative* [...] as of this encounter (statuses as of 08/14/2023) [facility] History of Past illness Narrative* Problem Noted Date Resolved Date Uncontrolled type 2 diabetes mellitus without complication, without long-term current use of insulin 01/25/2016 08/20/2018 HYPOTHYROIDISM NOS 03/24/2007 04/02/2015 DIABETES MELLITUS TYPE II-UNCOMPL 01/05/2007 04/02/2015 Depressive disorder, not elsewhere classified 04/02/2015 HYPERLIPIDEMIA NEC/NOS 01/05/2007 5 documented as of this encounter (statuses as of 09/24/2021) [facility] History of Past illness Narrative* Problem Noted Date Resolved Date Uncontrolled type 2 diabetes mellitus without complication, without long-term current use of insulin 01/25/2016 08/20/2018 HYPOTHYROIDISM NOS 03/24/2007 04/02/2015 DIABETES MELLITUS TYPE II-UNCOMPL 01/05/2007 04/02/2015 Depressive disorder, not elsewhere classified 04/02/2015 HYPERLIPIDEMIA NEC/NOS 01/05/2007 5 documented as of this encounter (statuses as of 01/09/2022) [facility] History of Past illness Narrative* Problem Noted Date Resolved Date Uncontrolled type 2 diabetes mellitus without complication, without long-term current use of insulin 01/25/2016 08/20/2018 HYPOTHYROIDISM NOS 03/24/2007 04/02/2015 DIABETES MELLITUS TYPE II-UNCOMPL 01/05/2007 04/02/2015 Depressive disorder, not elsewhere classified 04/02/2015 HYPERLIPIDEMIA NEC/NOS 01/05/2007 5 documented as of this encounter (statuses as of 02/02/2022) [facility] History of Past illness Narrative* Problem Noted Date Resolved Date Uncontrolled type 2 diabetes mellitus without complication, without long-term current use of insulin 01/25/2016 08/20/2018 HYPOTHYROIDISM NOS 03/24/2007 04/02/2015 DIABETES MELLITUS TYPE II-UNCOMPL 01/05/2007 04/02/2015 Depressive disorder, not elsewhere classified 04/02/2015 HYPERLIPIDEMIA NEC/NOS 01/05/2007 5 documented as of this encounter (statuses as of 04/16/2022) [facility] History of Past illness Narrative* Problem Noted Date Resolved Date Uncontrolled type 2 diabetes mellitus without complication, without long-term current use of insulin 01/25/2016 08/20/2018 HYPOTHYROIDISM NOS 03/24/2007 04/02/2015 DIABETES MELLITUS TYPE II-UNCOMPL 01/05/2007 04/02/2015 Depressive disorder, not elsewhere classified 04/02/2015 HYPERLIPIDEMIA NEC/NOS 01/05/2007 5 documented as of this encounter (statuses as of 04/29/2022) [facility] History of Past illness Narrative* Problem Noted Date Resolved Date Uncontrolled type 2 diabetes mellitus without complication, without long-term current use of insulin 01/25/2016 08/20/2018 HYPOTHYROIDISM NOS 03/24/2007 04/02/2015 DIABETES MELLITUS TYPE II-UNCOMPL 01/05/2007 04/02/2015 Depressive disorder, not elsewhere classified 04/02/2015 HYPERLIPIDEMIA NEC/NOS 01/05/2007 5 documented as of this encounter (statuses as of 05/17/2022) [facility] History of Past illness Narrative* Problem Noted Date Resolved Date Uncontrolled type 2 diabetes mellitus without complication, without long-term current use of insulin 01/25/2016 08/20/2018 HYPOTHYROIDISM NOS 03/24/2007 04/02/2015 DIABETES MELLITUS TYPE II-UNCOMPL 01/05/2007 04/02/2015 Depressive disorder, not elsewhere classified 04/02/2015 HYPERLIPIDEMIA NEC/NOS 01/05/2007 5 documented as of this encounter (statuses as of 05/30/2022) [facility] History of Past illness Narrative* Problem Noted Date Resolved Date Uncontrolled type 2 diabetes mellitus without complication, without long-term current use of insulin 01/25/2016 08/20/2018 HYPOTHYROIDISM NOS 03/24/2007 04/02/2015 DIABETES MELLITUS TYPE II-UNCOMPL 01/05/2007 04/02/2015 Depressive disorder, not elsewhere classified 04/02/2015 HYPERLIPIDEMIA NEC/NOS 01/05/2007 5 documented as of this encounter (statuses as of 06/21/2022) [facility] History of Past illness Narrative* Problem Noted Date Resolved Date Uncontrolled type 2 diabetes mellitus without complication, without long-term current use of insulin 01/25/2016 08/20/2018 HYPOTHYROIDISM NOS 03/24/2007 04/02/2015 DIABETES MELLITUS TYPE II-UNCOMPL 01/05/2007 04/02/2015 Depressive disorder, not elsewhere classified 04/02/2015 HYPERLIPIDEMIA NEC/NOS 01/05/2007 5 documented as of this encounter (statuses as of 06/21/2022) [facility] History of Past illness Narrative* Problem Noted Date Resolved Date Uncontrolled type 2 diabetes mellitus without complication, without long-term current use of insulin 01/25/2016 08/20/2018 HYPOTHYROIDISM NOS 03/24/2007 04/02/2015 DIABETES MELLITUS TYPE II-UNCOMPL 01/05/2007 04/02/2015 Depressive disorder, not elsewhere classified 04/02/2015 HYPERLIPIDEMIA NEC/NOS 01/05/2007 5 documented as of this encounter (statuses as of 07/09/2022) [facility] History of Past illness Narrative* Problem Noted Date Resolved Date Uncontrolled type 2 diabetes mellitus without complication, without long-term current use of insulin 01/25/2016 08/20/2018 HYPOTHYROIDISM NOS 03/24/2007 04/02/2015 DIABETES MELLITUS TYPE II-UNCOMPL 01/05/2007 04/02/2015 Depressive disorder, not elsewhere classified 04/02/2015 HYPERLIPIDEMIA NEC/NOS 01/05/2007 5 documented as of this encounter (statuses as of 07/25/2022) [facility] History of Past illness Narrative* Problem Noted Date Resolved Date Uncontrolled type 2 diabetes mellitus without complication, without long-term current use of insulin 01/25/2016 08/20/2018 HYPOTHYROIDISM NOS 03/24/2007 04/02/2015 DIABETES MELLITUS TYPE II-UNCOMPL 01/05/2007 04/02/2015 Depressive disorder, not elsewhere classified 04/02/2015 HYPERLIPIDEMIA NEC/NOS 01/05/2007 5 documented as of this encounter (statuses as of 09/12/2022) [facility] History of Past illness Narrative* Problem Noted Date Resolved Date Uncontrolled type 2 diabetes mellitus without complication, without long-term current use of insulin 01/25/2016 08/20/2018 HYPOTHYROIDISM NOS 03/24/2007 04/02/2015 DIABETES MELLITUS TYPE II-UNCOMPL 01/05/2007 04/02/2015 Depressive disorder, not elsewhere classified 04/02/2015 HYPERLIPIDEMIA NEC/NOS 01/05/2007 5 documented as of this encounter (statuses as of 09/12/2022) [facility] History of Past illness Narrative* Problem Noted Date Diagnosed Date Resolved Date Uncontrolled type 2 diabetes mellitus without complication, without long-term current use of insulin 01/25/2016 08/20/2018 HYPOTHYROIDISM NOS 03/24/2007 5 DIABETES MELLITUS TYPE II-UNCOMPL 01/05/2007 04/02/2015 Depressive disorder, not elsewhere classified 01/06/2004/02/2015 HYPERLIPIDEMIA NEC/NOS 01/05/200704/02 documented as of this encounter (statuses as of 02/13/2023) [facility] History of Past illness Narrative* Problem Noted Date Diagnosed Date Resolved Date Uncontrolled type 2 diabetes mellitus without complication, without long-term current use of insulin 01/25/2016 08/20/2018 HYPOTHYROIDISM NOS 03/24/2007 5 DIABETES MELLITUS TYPE II-UNCOMPL 01/05/2007 04/02/2015 Depressive disorder, not elsewhere classified 01/06/20 07 04/02/2015 HYPERLIPIDEMIA NEC/NOS 01/05/200704/02 documented as of this encounter (statuses as of 03/05/2023) [facility] note* Diagnosis OPENED IN ERROR- Primary To allow closing an encounter opened in error (used in SmartSet) documented in this encounter [facility] note* Diagnosis Combined forms of age-related cataract of both eyes- Primary Other and combined forms of senile cataract Type 2 diabetes mellitus without retinopathy (HCC) Type II or unspecified type diabetes mellitus without mention of complication, not stated as uncontrolled [id number] corneal dystrophy of both eyes documented in this encounter [facility] note* Diagnosis Uncontrolled type 2 diabetes mellitus with hyperglycemia (HCC)- Primary Recurrent kidney stones Calculus of kidney Esophageal reflux Depression, unspecified depression type Hyperlipidemia, unspecified hyperlipidemia type Acquired hypothyroidism Unspecified hypothyroidism B12 deficiency Other B-complex deficiencies Encounter for long-term current use of medication Iron deficiency anemia, unspecified iron deficiency anemia type documented in this encounter [facility] note* Diagnosis Esophageal reflux Persistent depressive disorder documented in this encounter [facility] note* Diagnosis Controlled type 2 diabetes mellitus without complication, without long-term current use of insulin ([facility])- Primary Medication management Encounter for long-term (current) use of other medications documented in this encounter [facility] note* Diagnosis Type 2 diabetes mellitus without complication, without long-term current use of insulin ([facility])- Primary Medication management Encounter for long-term (current) use of other medications documented in this encounter [facility] note* Diagnosis Medication management- Primary Encounter for long-term (current) use of other medications Type 2 diabetes mellitus without complication, without long-term current use of insulin ([facility]) Hyperlipidemia, unspecified hyperlipidemia type documented in this encounter [facility] note* Diagnosis Esophageal reflux Persistent depressive disorder Acquired hypothyroidism Unspecified hypothyroidism [facility] [place] Diagnosis Acquired hypothyroidism- Primary Unspecified hypothyroidism B12 deficiency Other B-complex deficiencies Hyperlipidemia, unspecified hyperlipidemia type Iron deficiency anemia, unspecified iron deficiency anemia type Uncontrolled type 2 diabetes mellitus with hyperglycemia (HCC) [facility] Diagnosis Acquired hypothyroidism- Primary Unspecified hypothyroidism Type 2 diabetes mellitus without complication, without long-term current use of insulin (HCC) Iron deficiency anemia, unspecified iron deficiency anemia type B12 deficiency Other B-complex deficiencies Vitamin D deficiency Unspecified vitamin D deficiency Encounter for long-term current use of medication documented in this encounter [facility] Summary Purpose Family History No Family History Records FoundNo Family History Records Found Advance Directives Documents on File Type Date Recorded Patient Director Facilities Maintenance Expl anation Advance Directive(s) Medications Administered Section Active Administered Medications - up to 3 most recent administrations Medication Order MAR Action Action Date Dose Rate Site fluorescein-benoxinate 0.25-0.4 % 1 Drop (FLURESS) 1 Drop, BOTH EYES, DIRECTED, Starting on Fri01/09/22 at 1000, Until Fri01/09/22 at 2158, Administer for applanation tonometry. In the event of a Fluress shortage, administer Vickie-Fluor 1 drop into both eyes as directed [...] section and content) DATE CREATED AUTHOR AUTHOR'S ORGANISAAC ATION 08/13/2023 [facility] Source Comments (unrecognize d section and content) In the event this informatio n is protected by the Federal Confidentiality of Alcohol and Drug Abuse Patient Records regulations: The Federal rules restrict any use of the information to criminally investigate or prosecute any alcohol or drug abuse patient.[facility] the event this information is protected by the Federal Confidentiality of Alcohol and Drug Abuse Patient Records regulations: The Federal rules restrict any use of the information to criminally investigate or prosecute any alcohol or drug abuse patient.[facility] the event this information is protected by the Federal Confidentiality of Alcohol and Drug Abuse Patient Records regulations: The Federal rules restrict any use of the information to criminally investigate or prosecute any alcohol or drug abuse patient.[facility] the event this information is protected by the Federal Confidentiality of Alcohol and Drug Abuse Patient Records regulations: The Federal rules restrict any use of the information to criminally investigate or prosecute any alcohol or drug abuse patient.[facility] the event this information is protected by the Federal Confidentiality of Alcohol and Drug Abuse Patient Records regulations: The Federal rules restrict any use of the information to criminally investigate or prosecute any alcohol or drug abuse patient.[facility] the event this information is protected by the Federal Confidentiality of Alcohol and Drug Abuse Patient Records regulations: The Federal rules restrict any use of the information to criminally investigate or prosecute any alcohol or drug abuse patient.[facility] the event this information is protected by the Federal Confidentiality of Alcohol and Drug Abuse Patient Records regulations: The Federal rules restrict any use of the information to criminally investigate or prosecute any alcohol or drug abuse patient.[facility] the event this information is protected by the Federal Confidentiality of Alcohol and Drug Abuse Patient Records regulations: The Federal rules restrict any use of the information to criminally investigate or prosecute any alcohol or drug abuse patient.[facility] the event this information is protected by the Federal Confidentiality of Alcohol and Drug Abuse Patient Records regulations: The Federal rules restrict any use of the information to criminally investigate or prosecute any alcohol or drug abuse patient.[facility] the event this information is protected by the Federal Confidentiality of Alcohol and Drug Abuse Patient Records regulations: The Federal rules restrict any use of the information to criminally investigate or prosecute any alcohol or drug abuse patient.[facility] the event this information is protected by the Federal Confidentiality of Alcohol and Drug Abuse Patient Records regulations: The Federal rules restrict any use of the information to criminally investigate or prosecute any alcohol or drug abuse patient.[facility] the event this information is protected by the Federal Confidentiality of Alcohol and Drug Abuse Patient Records regulations: The Federal rules restrict any use of the information to criminally investigate or prosecute any alcohol or drug abuse patient.[facility] the event this information is protected by the Federal Confidentiality of Alcohol and Drug Abuse Patient Records regulations: The Federal rules restrict any use of the information to criminally investigate or prosecute any alcohol or drug abuse patient.[facility] HospitalIn the event this information is protected by the Federal Confidentiality of Alcohol and Drug Abuse Patient Records regulations: The Federal rules restrict any use of the information to criminally investigate or prosecute any alcohol or drug abuse patient.[facility] HospitalIn the event this information is protected by the Federal Confidentiality of Alcohol and Drug Abuse Patient Records regulations: The Federal rules restrict any use of the information to criminally investigate or prosecute any alcohol or drug abuse patient.[facility] HospitalIn the event this information is protected by the Federal Confidentiality of Alcohol and Drug Abuse Patient Records regulations: The Federal rules restrict any use of the information to criminally investigate or prosecute any alcohol or drug abuse patient.[facility] the event this information is protected by the Federal Confidentiality of Alcohol and Drug Abuse Patient Records regulations: The Federal rules restrict any use of the information to criminally investigate or prosecute any alcohol or drug abuse patient.[facility] Hospital[facility] the event this information is protected by the Federal Confidentiality of Alcohol and Drug Abuse Patient Records regulations: The Federal rules restrict any use of the information to criminally investigate or prosecute any alcohol or drug abuse patient.[facility] HospitalIn the event this information is protected by the Federal Confidentiality of Alcohol and Drug Abuse Patient Records regulations: The Federal rules restrict any use of the information to criminally investigate or prosecute any alcohol or drug abuse patient.[facility] Reason for Visit (unrecogniz ed [...] assistance forms Reason Comments HH Verbal orders Reason Comments SW Update Care Teams (unrecognized sec tion and content) Practical Nursing Faculty Relationship Specialty Start Date End Date Peter Presley MD [address] [place] [address] PCP - General 03/24/07 [facility] [address] [place] [address] Pharmacist Pharmacy 02/26/19 Practical Nursing Faculty Relationship Specialty Start Date End Date Peter Presley MD [address] [place] [address] PCP - General 03/24/07 [facility] [address] [place] [address] Pharmacist Pharmacy 02/26/19 Practical Nursing Faculty Relationship Specialty Start Date End Date Peter Presley MD [address] [place] [address] PCP - General 03/24/07 [facility] [address] [place] [address] Pharmacist Pharmacy 02/26/19 Practical Nursing Faculty Relationship Specialty Start Date End Date Peter Presley MD [address] [place] [address] PCP - General 03/24/07 Practical Nursing Faculty Relationship Specialty Start Date End Date Peter Presley MD [address] [place] [address] PCP - General 03/24/07 Practical Nursing Faculty Relationship Specialty [place] [address] [place] [address], [place] [address] PCP - General 03/24/07 [place] [address] [place] [address] Pharmacist Pharmacy 06/20/22 Practical Nursing Faculty Relationship Specialty Start Date End Date Peter Presley MD [address] [place] [address] PCP - General 03/24/07 [place] [address] [place] [address] Pharmacist Pharmacy 06/20/22 Practical Nursing Faculty Relationship Specialty Start Date End Date Peter Presley MD [address] [place] [address] PCP - General 03/24/07 [place] [address] [place] [address] Pharmacist Pharmacy 06/20/22 Practical Nursing Faculty Relationship Specialty Start Date End Date Peter Presley MD [address] [place] [address] PCP - General 03/24/07 [place] [address] [place] [address] Pharmacist Pharmacy 06/20/22 Practical Nursing Faculty Relationship Specialty Start Date End Date Peter Presley MD [address] [place] [address] PCP - General 03/24/07 [place] [address] [place] [address] Pharmacist Pharmacy 06/20/22 Practical Nursing Faculty Relationship Specialty Start Date End Date Peter Presley MD [address] [place] [address] PCP - General 03/24/07 [place] [address] [place] [address] Pharmacist Pharmacy 06/20/22 Practical Nursing Faculty Relationship Specialty Start Date End Date Peter Presley MD [address] [place] [address] PCP - General 03/24/07 [place], [place] [address] [place] [address] Pharmacist Pharmacy 06/20/22 Practical Nursing Faculty Relationship Specialty Start Date End Date Peter Presley MD [address] [place] [address] PCP - General 03/24/07 [place], [place] [address] [place] [address] Pharmacist Pharmacy 06/20/22 Practical Nursing Faculty Relationship Specialty Start Date End Date Peter Presley MD [address] [place] [address] PCP - General 03/24/07 [place], [place] [address] [place] [address] Pharmacist Pharmacy 06/20/22 Practical Nursing Faculty Relationship Specialty Start Date End Date Peter Presley MD [address] [place] [address] PCP - General 03/24/07 Melony Delgado, [facility] [address] [place] [address] Pharmacist Pharmacy 06/20/22 FOR RECORDS PERTAINING TO [...] BE BASED ON THE PRIMARY CLINICAL RECORDS. [employer] provides no warranty or guarantee of the accuracy or completeness of information in this document.
[2023-08-15 02:09] LABS: Bedside Glucose > 500 mg/dL (74-106)
[2023-08-15] MEDS: Insulin Glargine-YFGN 100 UNIT/ML Pen 45 UNIT SC ×2 (03:31→20:15)
[2023-08-15] MEDS: KCL 20MEQ in 0.9% NS 20 MEQ/1,000 ML IV.SOLN. 150 MEQ IV ×3 (04:29→18:39)
[2023-08-15] MEDS: 0.9% Saline Lock 10 ML Syringe IV (04:30)
[2023-08-15] MEDS: Levothyroxine 25 MCG TABLET PO (05:31)
[2023-08-15] MEDS: Levothyroxine 50 MCG Tablet PO (05:31)
[2023-08-15 06:26] LABS: Absolute Lymphocyte Count 0.83 X10^3/uL (0.83-4.51); Absolute Neutrophil Count 3.2 X10^3/uL (2.0-7.7); Basophil# 0.03 X10^3/uL; Basophil% 0.7 % (0-1); Eosinophil# 0.07 X10^3/uL; Eosinophils% 1.5 % (0-5); Hematocrit 31.6 % (37-47); Hemoglobin 9.6 g/dL (12.0-15.0); Lymphocyte # 0.83 X10^3/ul (0.83-4.51); Lymphocyte % 18.4 % (19-41); Mean Corp Hgb Conc 30.4 g/dL (32-36); Mean Corpuscular Hgb 25.5 pg (27.0-32.0); Mean Platelet Vol. 11.7 fl (6.2-12.0); Monocyte# 0.31 X10^3/uL; Monocyte% 6.9 % (0-10); NRBC Flagged by Analyzer 0 % (0-5); Neutrophil # 3.24 X10^3/uL (2.7-7.7); Neutrophil % 71.6 % (47-70); Platelet Count 144 K/mm3 (150-450); Red Blood Count 3.76 M/mm3 (4.2-5.4); White Blood Count 4.5 K/mm3 (4.4-11.0)
[2023-08-15] MEDS: Insulin Lispro 100 UNIT/ML INSULN.PEN SC ×4 (06:30→20:16)
[2023-08-15 06:48] LABS: Bedside Glucose 315 mg/dL (74-106)
[2023-08-15 06:51] LABS: Bedside Glucose 442 mg/dL (74-106)
[2023-08-15 07:06] LABS: ALB/GLOB Ratio 0.7 RATIO (0.9-2.4); AST(SGOT) 102 U/L (15-37); Alanine Aminotransfer ALT/SGPT 91 U/L (13-56); Albumin, Serum 2.6 g/dL (3.2-5.0); Alkaline Phosphatase 273 U/L (45-117); Anion Gap 4 (5-15); BUN 22 mg/dL (7-18); BUN/Creat Ratio 31.3 RATIO (10-20); Calcium,Total 8.9 mg/dL (8.5-10.1); Chloride 102 mmol/L (98-107); EST Glomerular Filtration Rate 85 mL/min (>60); Est Glom Filt Rate - Afr Amer 103 mL/min (>60); Estimated Creatinine Clearance 46.31 ml/min; Globulin 3.6 g/dL (2.2-4.2); Glucose 344 mg/dL (74-106); Magnesium 1.9 mg/dL (1.6-2.6); Phosphorus 2.6 mg/dL (2.5-4.9); Potassium 3.7 mmol/L (3.5-5.1); Protein, Total 6.2 g/dL (6.4-8.2); Sodium Level 134 mmol/L (136-145); Thyroid Stim Hormone (TSH) 4.32 uIU/mL (0.358-3.74)
--- NOTE | 2023-08-15 08:02 | PN.HOSP_ITS ---
Reason for Visit Reason for Visit: Diagnoses Dehydration (08/15/23) Urinary tract infection, site not specified (08/15/23) Adult failure to thrive (08/15/23) Hyperglycemia, unspecified (08/15/23) Subjective Subjective Feels okay. Objective Data Objective Data Vital Signs: Vital Signs Temp Pulse Resp BP Pulse Ox O2 Del Method 36.6 C 68 17 122/68 H 97 Room Air 08/15/23 03:06 08/15/23 03:06 08/15/23 03:06 08/15/23 03:06 08/15/23 03:06 08/15/23 07:52 Oxygen Delivery Method Room Air Weight: 62.5 kg Body Mass Index (BMI) 27.8 Intake & Output: Intake and Output for Last 24 Hours 08/13/23 08/14/23 08/15/23 23:59 23:59 23:59 Intake Total 662.5 / 662.5 Output Total 500 / 500 Balance 162.5 / 162.5 Lab / Micro Data 08/15/23 05:40 08/15/23 05:40 Labs: Laboratory Results - last 24 hr 08/14/23 23:07: WBC 4.3 L, RBC 4.38, Hgb 10.7 L, Hct 36.9 L, MCV 84.2, MCH 24.4 L, MCHC 29.0 L D, RDW Std Deviation 58.6 H, RDW Coeff of Nicholas 19.8 H, Plt Count 135 L, MPV 11.7, Immature Gran % (Auto) 0.700, Neut % (Auto) 69.3, Lymph % (Auto) 17.4 L, Houghton % (Auto) 10.7 H, Eos % (Auto) 1.4, Baso % (Auto) 0.5, Absolute Neuts (auto) 3.0, Absolute Lymphs (auto) 0.75 L, Nucleated RBC % 0, Sodium Cancelled, Potassium Cancelled, Chloride Cancelled, Carbon Dioxide Cancelled, Anion Gap Cancelled, BUN Cancelled, Creatinine Cancelled, Estim Creat Clear Calc Cancelled, Est GFR (MDRD) Af Amer Cancelled, Est GFR (MDRD) Non-Af Cancelled, BUN/Creatinine Ratio Cancelled, Glucose Cancelled, Calcium Cancelled, Troponin I High Sens Cancelled 08/14/23 23:32: Urine Color Yellow, Urine Clarity Sl. Cloudy, Urine pH 7.0, Ur Specific Callao 1.010, Urine Protein Negative, Urine Glucose (UA) 1000 H, Urine Ketones 5 H, Urine Occult Blood 250 H, Urine Nitrite Negative, Urine Bilirubin Negative, Urine Urobilinogen Normal, Ur Leukocyte Esterase 100 H, Urine RBC 5-10 SEEN, Urine WBC 25-50 SEEN, Ur Squamous Epith Cells 0 SEEN, Ur Transition Epith Cell 0 SEEN, Ur Renal Epithelial Cell 0 SEEN, Urine Bacteria 1+, Urine Mucus 0 SEEN 08/15/23 00:02: Sodium 135 L, Potassium 4.6, Chloride 101, Carbon Dioxide 27.0, Anion Gap 7, BUN 24 H, Creatinine 0.89, Estim Creat Clear Calc 42.48, Est GFR (MDRD) Af Amer 79, Est GFR (MDRD) Non-Af 65, BUN/Creatinine Ratio 27.0 H, Glucose 681 H*, Calcium 10.1, Troponin I High Sens 8 08/15/23 01:50: POC Glucose > 500 H* 08/15/23 03:13: POC Glucose 442 H 08/15/23 05:40: WBC 4.5, RBC 3.76 L, Hgb 9.6 L, Hct 31.6 L, MCV 84.0, MCH 25.5 L , MCHC 30.4 L, RDW Std Deviation 57.0 H, RDW Coeff of Nicholas 19.0 H, Plt Count 144 L, MPV 11.7, Immature Gran % (Auto) 0.900, Neut % (Auto) 71.6 H, Lymph % (Auto) 18.4 L, Houghton % (Auto) 6.9, Eos % (Auto) 1.5, Baso % (Auto) 0.7, Absolute Neuts (auto) 3.2, Absolute Lymphs (auto) 0.83, Nucleated RBC % 0, Sodium 134 L, Potassium 3.7, Chloride 102, Carbon Dioxide 28.0, Anion Gap 4 L, BUN 22 H, Creatinine 0.70, Estim Creat Clear Calc 46.31, Est GFR (MDRD) Af Amer 103, Est GFR (MDRD) Non-Af 85, BUN/Creatinine Ratio 31.3 H, Glucose 344 H, Calcium 8.9, Phosphorus 2.6, Magnesium 1.9, Total Bilirubin 0.70, AST 102 H, ALT 91 H, Alkaline Phosphatase 273 H, Total Protein 6.2 L, Albumin 2.6 L, Globulin 3.6, Albumin/Globulin Ratio 0.7 L, TSH 4.32 H 08/15/23 06:29: POC Glucose 315 H Physical Exam Const alert and no apparent distress Resp normal respiratory effort, no retractions, no use of accessory muscles and clear to auscultation bilaterally Cardio regular rate, regular rhythm, S1 normal heart sound and S2 normal heart sound GI normal to inspection, nondistended, normoactive bowel sounds, soft to palpation, non-tender and non-distended Extremity normal to inspection Neuro Sensorium / Orientation: awake and alert Assessment & Plan Assessment/Plan (1) Hyperglycemia: (2) Acute dehydration: (3) Acute UTI: (4) Adult failure to thrive: PLAN: Plan Severe Hyperglycemia of 681 mg/dL * improving * without DKA nor HONK in DM2 * Glargine 45 units nightly and SSI * Give Lantus 45 units sq once now plus cover with SSI. * A1c is 11.7. Possible UTI * UA equivocal * on CTX * follow up UCx. Debility * PT OT CM/SW * Plan for discharge to intermediate facility Chronic conditions: * Hyperlipidemia - Resume statin as previous. * Hypothyroidism - Continue Synthroid and check TSH. * History of renal calculi - Noted with no evidence of recurrence. * Chronic depression - Continue Escitalopram. * GERD - Protonix dosing to be resumed. * OA - Stable. Give Tylenol prn. DVT prophylaxis - Lovenox 40 mg sq daily. Charges/Coding Visit Charges Inpatient E&M: 42718 Subs Hosp L2
[2023-08-15] MEDS: Aspirin E.C. 81 MG Tablet PO (08:25)
[2023-08-15] MEDS: Pantoprazole Sodium 40 MG Tablet PO (08:25)
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
[2023-08-15 09:51] LABS: Hemoglobin A1c 11.7 % (3.8-5.6)
[2023-08-15] MEDS: Escitalopram Oxalate 10 MG Tablet PO (10:23)
[2023-08-15] MEDS: Ferrous Gluconate 324 MG Tablet PO ×2 (10:23→20:16)
[2023-08-15] MEDS: Enoxaparin 40 MG/0.4 ML Syringe SC (10:23)
--- NOTE | 2023-08-15 10:30 | CASEMGMT ---
Addendum entered by Ani Nichols 08/15/23 17:31: Social Work Return phone call from pt's son. SW explained dc plan and pt's son is thankful and states pt has needed SNF placement for the last 2 years. SW provided son with name of facility that pt chose and emailed link to the [facility]'s website. 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 SW to update pt's son when pt is ready for discharge. Plan: [facility], pending precert IRA Kathleen Addendum entered by Ani Nichols 08/15/23 15:38: Social Work [facility] and [facility] can both accept pt. SW met with pt again and updated. Pt continues to be agreeable to go to SNF. Pt choosing the [facility]. Precert to be started at this time. Phone call placed to pt's son Salomón Lott. VM left requesting return call. Phone call placed to Amber at [facility] and Letitia at [facility] and updated on current discharge plan. Plan: [facility], pending acceptance IRA Kathleen Original Note: Social Work SW met with pt and introduced self and role of SW. Pt is lying in bed alert and able to answer questions appropriately. SW and pt spoke about pt's home situation at length and how pt is managing at home alone. Active listening and emotional support provided. SW and pt discussed safety concerns at home and need for fdc placement for pt's safety and well being. While hesitant at first, pt is agreeable to go to SNF for short term but is planning to return home when she becomes stronger and able to care for herself. A list of SNF providers including quality and resource use data and consistent with the patient?s preferred geographic region, medical needs, and insurance network were provided from the CarePort Guide. SW assisted pt in reviewing list. Pt requesting to stay in [place]. [place] facilities reviewed. Pt stating she does not want [facility] but does not have a preference over [facility] and [facility]. Referrals to be sent to both facilities. DC retail administrative assistant updated and referrals to be sent. IRA Tellez
[2023-08-15 12:42] LABS: Bedside Glucose 230 mg/dL (74-106)
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
--- NOTE | 2023-08-15 13:35 | CASEMGMT ---
Discharge Planning Referral sent via [facility]Port to [facility] and [facility]. Katheryn He, Discharge Planning Asst.
--- NOTE | 2023-08-15 15:40 | CASEMGMT ---
Social Work Pt does not have a living will or health care POA at this time. Pt son has attempted to get this previously, but pt was resistant. IRA Tellez
[2023-08-15 16:59] LABS: Bedside Glucose 305 mg/dL (74-106)
[2023-08-15] MEDS: Atorvastatin Calcium 40 MG Tablet PO (20:15)
[2023-08-15 20:44] LABS: Bedside Glucose 387 mg/dL (74-106)
[2023-08-16] MEDS: KCL 20MEQ in 0.9% NS 20 MEQ/1,000 ML IV.SOLN. 150 MEQ IV ×2 (01:20→08:28)
[2023-08-16 04:30] VITALS: BP 107/59; PULSE 64; RESP 14; TEMP 36.8; O2SAT 94
[2023-08-16 04:40] VITALS: BMI 27.6
[2023-08-16] MEDS: Levothyroxine 50 MCG Tablet PO (06:26)
[2023-08-16 06:48] LABS: Bedside Glucose 107 mg/dL (74-106)
[2023-08-16 07:43] VITALS: O2SAT 94
--- NOTE | 2023-08-16 07:51 | PCM.PN.HOSP ---
Reason for Visit Reason for Visit: Diagnoses Dehydration (08/15/23) Urinary tract infection, site not specified (08/15/23) Adult failure to thrive (08/15/23) Hyperglycemia, unspecified (08/15/23) Subjective Subjective Feeling well. Ready to go home. Objective Data Objective Data Vital Signs: Vital Signs Temp Pulse Resp BP Pulse Ox O2 Del Method 36.8 C 64 14 107/59 L 94 Room Air 08/16/23 04:30 08/16/23 04:30 08/16/23 04:30 08/16/23 04:30 08/16/23 07:43 08/16/23 07:43 Oxygen Delivery Method Room Air Weight: 62.2 kg Body Mass Index (BMI) 27.6 Intake & Output: Intake and Output for Last 24 Hours 08/14/23 08/15/23 08/16/23 23:59 23:59 23:59 Intake Total 3947.5 / 3947.5 1000 / 1000 Output Total 2500 / 2500 1700 / 1700 Balance 1447.5 / 1447.5 -700 / -700 Lab / Micro Data 08/15/23 05:40 08/15/23 05:40 Labs: Laboratory Results - last 24 hr 08/15/23 05:40: Hemoglobin A1c 11.7 H 08/15/23 11:11: POC Glucose 230 H 08/15/23 16:33: POC Glucose 305 H 08/15/23 20:11: POC Glucose 387 H 08/16/23 06:24: POC Glucose 107 H Physical Exam Const alert and no apparent distress HEENT head/scalp atraumatic and moist oral mucous membranes Resp normal respiratory effort, no retractions, no use of accessory muscles and clear to auscultation bilaterally Cardio regular rate, regular rhythm, S1 normal heart sound and S2 normal heart sound GI normal to inspection, nondistended, normoactive bowel sounds and soft to palpation Extremity normal to inspection Assessment & Plan Assessment/Plan (1) Hyperglycemia: (2) Acute dehydration: (3) Acute UTI: (4) Adult failure to thrive: PLAN: Plan Severe Hyperglycemia of 681 mg/dL improving without DKA nor HONK in DM2 Glargine 45 units nightly and SSI Give Lantus 45 units sq once now plus cover with SSI. A1c is 11.7. Possible UTI UA equivocal on CTX UCx showing GNR. Debility PT OT CM/SW Patient said that she could go home but I reviewed therapy recommendations were and she was minimal assistance with activity and patient had expressed reluctance to using a walker at home. Reinforced to the patient that going home is not a good choice at this time and she would benefit to going to a fci facility for further rehab. Plan for discharge to fci facility Chronic conditions: Hyperlipidemia - Resume statin as previous. Hypothyroidism - Continue Synthroid and check TSH. History of renal calculi - Noted with no evidence of recurrence. Chronic depression - Continue Escitalopram. GERD - Protonix dosing to be resumed. OA - Stable. Give Tylenol prn. DVT prophylaxis - Lovenox 40 mg sq daily. Charges/Coding Visit Charges Inpatient E&M: 83470 Subs Hosp L2
[2023-08-16] MEDS: Aspirin E.C. 81 MG Tablet PO (08:26)
[2023-08-16] MEDS: Enoxaparin 40 MG/0.4 ML Syringe SC (08:27)
[2023-08-16] MEDS: Pantoprazole Sodium 40 MG Tablet PO (08:27)
[2023-08-16] MEDS: Ferrous Gluconate 324 MG Tablet PO (08:27)
[2023-08-16] MEDS: Escitalopram Oxalate 10 MG Tablet PO (08:28)
[2023-08-16 08:35] VITALS: BP 101/59; PULSE 62; RESP 16; TEMP 36.8; O2SAT 97
[2023-08-16] MEDS: Ceftriaxone 1 GM/50 ML BAG IV (09:37)
[2023-08-16 12:02] LABS: Bedside Glucose 267 mg/dL (74-106)
[2023-08-16] MEDS: Insulin Lispro 100 UNIT/ML INSULN.PEN SC ×2 (12:56→17:10)
--- NOTE | 2023-08-16 14:41 | CASEMGMT ---
Social Work SW did check Careport throughout the day, no precert has been attained for pt to go to SNF. It is anticipated pt will be here through the weekend. AMINTA Crump
--- NOTE | 2023-08-16 16:02 | PCM.TXEXTCAR ---
Diet Diet Order/Speech Therapy: 08/15/23 10:26 Diet: Cardiac - Heart Healthy Dietary Modifications:: Consistent Carbohydrate Is pt able to select menu?: Yes Routine Orders/Code Status Code Status: Full Code Therapies Physical Therapy: Eval and Treat Occupational Therapy: Eval and Treat Problem/Diagnosis (1) Hyperglycemia: Status: Acute Code(s): R73.9 - Hyperglycemia, unspecified (2) Acute dehydration: Status: Acute Code(s): E86.0 - Dehydration (3) Acute UTI: Status: Acute Code(s): N39.0 - Urinary tract infection, site not specified (4) Adult failure to thrive: Status: Acute Code(s): R62.7 - Adult failure to thrive Plan Severe Hyperglycemia of 681 mg/dL improving without DKA nor HONK in DM2 Glargine 45 units nightly and SSI Give Lantus 45 units sq once now plus cover with SSI. A1c is 11.7. Possible UTI UA equivocal on CTX UCx showing GNR. Debility PT OT CM/SW Patient said that she could go home but I reviewed therapy recommendations were and she was minimal assistance with activity and patient had expressed reluctance to using a walker at home. Reinforced to the patient that going home is not a good choice at this time and she would benefit to going to a long term facility for further rehab. Plan for discharge to long term facility Chronic conditions: Hyperlipidemia - Resume statin as previous. Hypothyroidism - Continue Synthroid and check TSH. History of renal calculi - Noted with no evidence of recurrence. Chronic depression - Continue Escitalopram. GERD - Protonix dosing to be resumed. OA - Stable. Give Tylenol prn. DVT prophylaxis - Lovenox 40 mg sq daily. DC to SNF. Allergies/Procedures Done in Hospital Allergies venlafaxine HCl [From Effexor] Allergy (Verified 08/09/23 11:14) Rash CHEST BROKE OUT, GOT REAL DIZZY. meclizine Adverse Reaction (Verified 08/09/23 11:14) Other PT BECAME EXTREMELY FATIGUED & WAS UNABLE TO WALK AFTER TAKING 12.5MG OF MECLIZINE. Type of Care/Length of Stay Estimated LOS: Convalescent Care Less Than 30 days Type of Care Needed: Skilled Rehab Potential: Fair Prognosis: Good Additional Orders/Day of Discharge Day of Discharge: 08/16/23 Dietary and Speech Recommendations Dietitian Recommendations/Changes: Will change diet to Cardiac Consistent CHO d/t pmhx Discharge Plan Admission Admit Date/Time: 08/15/23 01:26 Primary Reason for Your Visit: debility Attending Provider: Carl Couch Primary Care Provider: Pavithra Presley Consulting Providers: Mihai Pratt Discharge Orders/Prescriptions Prescriptions: New insulin lispro [Humalog KwikPen Insulin] 100 unit/mL Insulin Pen See Protocol subcut ACHS Qty: 0 0RF Protocol: 3. Sliding Scale Insulin Med Dosing Condition: 150-189 mg/dl = 1 unit Condition: 190-229 mg/dl = 2 units Condition: 230-269 mg/dl = 3 units Condition: 270-309 mg/dl = 4 units Condition: 310-349 mg/dl = 5 units Condition: 350-399 mg/dl = 6 units Condition: 400-449 mg/dl = 7 units Condition: Greater than 449 call physician Protocol Text: - Use for Total Daily Dose of Insulin 37-55 units - Obsese, infected, or steroid patients MEDIUM DOSING ALGORITHIM insulin glargine-yfgn 100 unit/mL (3 mL) Insulin Pen 45 unit subcut QHS Qty: 0 0RF nitrofurantoin macrocrystal 100 mg capsule 100 mg PO BID 5 Days Qty: 10 0RF Rx Instructions: must administer with a meal/food Continued levothyroxine 50 MCG tablet 50 mcg PO DAILY Patient Comments: THYROID MEDICATION pantoprazole 40 MG tablet 40 mg PO BREAKFAST Patient Comments: ROWENA ON EMPTY STOMACH, 1/2HR BEFORE MEAL -ACID REFLUX metformin 500 MG tablet extended release 24 hr 2,000 mg PO BREAKFAST Patient Comments: -FOR DIABETES atorvastatin 40 MG tablet 40 mg PO QHS aspirin 81 MG tablet 81 mg PO DAILY@0800 escitalopram oxalate 10 MG tablet 10 mg PO DAILY ferrous gluconate 236 MG tablet 65 mg PO BID empagliflozin 10 MG tablet 10 mg PO DAILY levothyroxine 25 mcg tablet 25 mcg PO .MWF Patient Comments: in addition to the 50mcg. so total of 75mcg on MWF glipizide 10 mg tablet 10 mg PO BID Qty: 60 0RF Referrals / Follow Up: Pavithra Presley MD [Primary Care Provider] - Within 2 Weeks Disposition Disposition (needs filled in before D/C Order can be placed): [facility] Facility
--- NOTE | 2023-08-16 16:12 | DS.PCM_ITS ---
Providers Date of Admission: 08/15/23 Primary Care Physician: Dr. Pavithra Presley MD Reason For Visit: HYPERGLYCEMIA, UTI & ADULT FAILURE TO THRIVE Diagnosis Discharge Diagnosis (1) Hyperglycemia: Status: Acute Code(s): R73.9 - Hyperglycemia, unspecified (2) Acute dehydration: Status: Acute Code(s): E86.0 - Dehydration (3) Acute UTI: Status: Acute Code(s): N39.0 - Urinary tract infection, site not specified (4) Adult failure to thrive: Status: Acute Code(s): R62.7 - Adult failure to thrive Plan Severe Hyperglycemia of 681 mg/dL * improving * without DKA nor HONK in DM2 * Glargine 45 units nightly and SSI * Give Lantus 45 units sq once now plus cover with SSI. * A1c is 11.7. Possible UTI * UA equivocal * on CTX. Change to 5-day course of Macrobid. * UCx showing GNR. Debility * PT OT CM/SW * Patient said that she could go home but I reviewed therapy recommendations were and she was minimal assistance with activity and patient had expressed reluctance to using a walker at home. Reinforced to the patient that going home is not a good choice at this time and she would benefit to going to a long term facility for further rehab. * Plan for discharge to long term facility Chronic conditions: * Hyperlipidemia - Resume statin as previous. * Hypothyroidism - Continue Synthroid and check TSH. * History of renal calculi - Noted with no evidence of recurrence. * Chronic depression - Continue Escitalopram. * GERD - Protonix dosing to be resumed. * OA - Stable. Give Tylenol prn. DVT prophylaxis - Lovenox 40 mg sq daily. DC to SNF. Medications at Discharge Home Medications levothyroxine 50 mcg tablet 50 mcg PO DAILY thyroid 06/07/14 metformin 500 mg tablet,extended release 24 hr 2,000 mg PO BREAKFAST DM 06/07/14 pantoprazole 40 mg tablet,delayed release 40 mg PO BREAKFAST GERD 06/07/14 aspirin 81 mg tablet,delayed release 81 mg PO DAILY@0800 cad 05/28/19 atorvastatin 40 mg tablet 40 mg PO QHS CHOLESTEROL 05/28/19 empagliflozin 10 mg tablet 10 mg PO DAILY dm 05/28/19 escitalopram oxalate 10 mg tablet 10 mg PO DAILY DEPRESS 05/28/19 ferrous gluconate 236 mg (27 mg iron) tablet 65 mg PO BID supplement 05/28/19 levothyroxine 25 mcg tablet 25 mcg PO .MWF thyroid 08/09/23 glipizide 10 mg tablet 10 mg PO BID #60 tabs 08/12/23 insulin glargine-yfgn 100 unit/mL (3 mL) subcutaneous pen 45 unit (0.45 mL) subcut QHS #0 mL 08/16/23 insulin lispro 100 unit/mL subcutaneous pen (Humalog KwikPen (U-100) Insulin) See Protocol subcut ACHS #0 mL 08/16/23 nitrofurantoin macrocrystal 100 mg capsule 100 mg PO BID 5 days #10 caps 08/16/23 Hospital Course Operations None Procedures None Summary of Care Provided Minutes Spent on Discharge: 35 Hospital Course: Presents with weakness and falls. Found to have glucose greater than 600, but not in DKA nor HHS. She received 45 units of glargine daily plus SSI. Glucose improved. a1c is greater than 11. She will need insulin long-term. She is a type 2 diabetic. She has a UTI. She received ceftriaxone. She will be discharged with Macrobid. She has been falling at home, not using the walker. She required assistance with therapy. She has no one at home to help. She will go to the [facility] for further therapy needs. Weight / BMI Weight Weight: 62.2 kg Body Mass Index (BMI) 27.6 ABG / Lab / Microbiology Data 08/15/23 05:40 08/15/23 05:40 Laboratory: Laboratory Results - last 24 hr 08/15/23 16:33: POC Glucose 305 H 08/15/23 20:11: POC Glucose 387 H 08/16/23 06:24: POC Glucose 107 H 08/16/23 11:36: POC Glucose 267 H Microbiology: Microbiology 08/14/23 23:32 Urine, Catheterized Urine Culture - Preliminary GNR lactose vp security D/C Instructions Discharge Diet: 2000 Calorie Control Diet Meaningful Use Info Meaningful Use Diagnoses (Choose all that apply): None applicable Discharge Plan Admission Admit Date/Time: 08/15/23 01:26 Primary Reason for Your Visit: debility Attending Provider: Carl Couch Primary Care Provider: Pavithra Presley Consulting Providers: Mihai Pratt Discharge Orders/Prescriptions Prescriptions: New insulin lispro [Humalog KwikPen Insulin] 100 unit/mL Insulin Pen See Protocol subcut ACHS Qty: 0 0RF Protocol: 3. Sliding Scale Insulin Med Dosing Condition: 150-189 mg/dl = 1 unit Condition: 190-229 mg/dl = 2 units Condition: 230-269 mg/dl = 3 units Condition: 270-309 mg/dl = 4 units Condition: 310-349 mg/dl = 5 units Condition: 350-399 mg/dl = 6 units Condition: 400-449 mg/dl = 7 units Condition: Greater than 449 call physician Protocol Text: - Use for Total Daily Dose of Insulin 37-55 units - Obsese, infected, or steroid patients MEDIUM DOSING ALGORITHIM insulin glargine-yfgn 100 unit/mL (3 mL) Insulin Pen 45 unit subcut QHS Qty: 0 0RF nitrofurantoin macrocrystal 100 mg capsule 100 mg PO BID 5 Days Qty: 10 0RF Rx Instructions: must administer with a meal/food Continued levothyroxine 50 MCG tablet 50 mcg PO DAILY Patient Comments: THYROID MEDICATION pantoprazole 40 MG tablet 40 mg PO BREAKFAST Patient Comments: ROWENA ON EMPTY STOMACH, 1/2HR BEFORE MEAL -ACID REFLUX metformin 500 MG tablet extended release 24 hr 2,000 mg PO BREAKFAST Patient Comments: -FOR DIABETES atorvastatin 40 MG tablet 40 mg PO QHS aspirin 81 MG tablet 81 mg PO DAILY@0800 escitalopram oxalate 10 MG tablet 10 mg PO DAILY ferrous gluconate 236 MG tablet 65 mg PO BID empagliflozin 10 MG tablet 10 mg PO DAILY levothyroxine 25 mcg tablet 25 mcg PO .MWF Patient Comments: in addition to the 50mcg. so total of 75mcg on MWF glipizide 10 mg tablet 10 mg PO BID Qty: 60 0RF Referrals / Follow Up: Pavithra Presley MD [Primary Care Provider] - Within 2 Weeks Disposition Disposition (needs filled in before D/C Order can be placed): Care Home Facility Charges/Coding Visit Charges Inpatient E&M: 80159 Disch Hosp >30min
[2023-08-16 16:38] VITALS: BP 118/57; PULSE 75; RESP 16; TEMP 36.8; O2SAT 99
--- NOTE | 2023-08-16 16:41 | CASEMGMT ---
Social Work Pt is approved to go to [facility] today. SW completed hospital exemption, physician discharging pt, and community relations manager setting up the discharge. AMINTA Crump
[2023-08-16 17:09] LABS: Bedside Glucose 361 mg/dL (74-106)
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
== END 2023-08-16 18:55 | disposition skilled nursing facility (03) | DRG 638 ==
LOC: ED 08-15 00:50 → MS3 08-15 02:02
PROVIDERS: Admitting Provider Internal Medicine; Emergency Provider Emergency Medicine; PCP Internal Medicine
DX: E11.65 Type 2 diabetes mellitus with hyperglycemia (principal); N30.01 Acute cystitis with hematuria; D50.9 Iron deficiency anemia, unspecified; E03.9 Hypothyroidism, unspecified; F32.A Depression, unspecified; D72.819 Decreased white blood cell count, unspecified; E78.5 Hyperlipidemia, unspecified; M19.90 Unspecified osteoarthritis, unspecified site; K21.9 Gastro-esophageal reflux disease without esophagitis; E86.0 Dehydration; I44.0 Atrioventricular block, first degree; R62.7 Adult failure to thrive; R53.81 Other malaise; Z79.82 Long term (current) use of aspirin; Z79.84 Long term (current) use of oral hypoglycemic drugs; Z79.899 Other long term (current) drug therapy
CPT/HCPCS: 36415; 80048; 80053; 81001; 82962; 83036; 83735; 84100; 84443; 84484; 85025; 87077; 87086; 87088; 87186; 93005; 94668; 97110; 97116; 97162; 97166; 97530; 97535; 97802; 99252; 99285; J7030; P9612; A4216; G0463

== ENCOUNTER → 2023-09-05 | Outpatient (CLI) | payer MEDICARE, SELFPAY ==
--- NOTE | 2023-09-05 09:03 | US_ITS ---
INDICATION: Other specified abnormal findings of blood chemistry EXAMINATION: Ultrasound US Abdomen Limited (quadrant) TECHNIQUE: Willett scale and color doppler imaging was performed of the right upper quadrant. COMPARISON: No relevant prior comparison study available FINDINGS: LIVER: There is normal echotexture. The liver measures about 16 cm in length. The portal vein is patent with normal hepatopedal flow. No focal hepatic lesion. There is no free fluid. GALLBLADDER AND BILIARY TREE: Status post cholecystectomy. The proximal common bile duct measures 9 mm, which may or may not be significant for a postcholecystectomy patient. Sonographic Ca''s sign: PANCREAS: No focal abnormality is demonstrated in the visualized portions of the pancreas. No pancreatic ductal dilatation. Right kidney: The right kidney measures about 9.8 cm in length. The renal cortex measures 1.2 cm. There is small echogenic shadow/nonobstructing stone in the lower pole of right kidney measuring about 4 mm. No evidence of hydronephrosis. US/Abdomen Limited IMPRESSION: 1. Status post cholecystectomy. 2. Dilated common bile duct which may or may not be significant for a postcholecystectomy patient. 3. Small nonobstructing right renal stone without evidence of hydronephrosis. Electronically Signed: Oliver Ruano MD at 15:32 EST ,
--- OUTSIDE RECORDS SUMMARY | 2023-09-05 09:36 | XMS RPT_ITS | CCD ---
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 TCM and schedule a hospital follow up. Pt back in the hospital, TCM was not completed. Closing. Jami Richmond LPN TRANSITION CARE MANAGEMENT INITIAL OUTREACH DOCUMENTATION: No flowsheet data found. SUMMARY: -Pt discharged from [facility] on 08/12/23. -Admitted for: hyperglycemia, failure to thrive Do you have a hospital follow up appointment with your PCP Pt back in the hospital MEDICATIONS: Many patients have questions or concerns about their medications once they are home. Were you prescribed any new medications? Pt back in the hospital Were you told to hold any medications? Pt back in the hospital Were any of your medications discontinued? t back in the hospital Do you have any questions about getting or taking your medications? Pt back in the hospital Your discharge instructions/After visit Summary (AVS) are important in guiding you through the recovery process. Is there anything I might help you understand? Pt back in the hospital Do you have all the necessary equipment and supplies at home? Pt back in the hospital Medical records from recent hospitalization: Pt back in the hospital Allergies As of Date: 08/13/2023 Noted Allergy Reaction CONTRAST DYE 06/02/2014 8 [...] LPN - Fully Assessed Reason for Visit: Transition Of Care [4074] Prescriptions as of 08/15/2023 - levothyroxine (SYNTHROID) 25 mcg tablet Take [...] by mouth daily with breakfast. Gets through [employer] [facility] [facility] PAP. - ferrous sulfate 325 mg (65 mg iron) tablet Take 325 mg by mouth once daily. - blood sugar diagnostic (BLOOD GLUCOSE TEST) test strip Test blood sugar(s) 2 times daily. Dx: Type 2 DM - Controlled E11.9 Insulin: No - Lancets lancets Test blood sugar(s) 2 daily. Dx: E11.9 Insulin: No Problem List As Of Date 08/13/2023 Noted Resolved DIABETES MELLITUS TYPE II-UNCOMPL [E11.9] [...] B12 deficiency [E53.8] 08/13/2021 Encounter Status:Closed by JAMI RICHMOND on 08/15/23 [facility] 08-12-2023 Miscellaneous Notes Liberty notified and verbalized understanding Grazyna Yarbrough Cma Below noted May give verbal orders Make sure have up to date discharge summary and medication list gets reconciled. Liberty with [facility] HH calls to report pt is going to be discharged from [facility] today with orders for Nursing, PT, and OT. Liberty is requesting a VO from provider that pcp will follow pt while in . Alta Ortiz LPN documented in this encounter [facility] 06-16-2023 Note Patient Outreach (ASHANTI OSWALDARMS) STEVE RUSSELL ([id number]) 1945 F Date Time Provider Department 06/16/23 MELONY DELGADO During your visit today, we recorded the following information about you: Gume (Medical Billing Instructor)Sharon 07/17/2023 3:08 AM Signed This patient has been referred by pharmacy for side gluer patient assistance program oracle application architect. Patient is currently enrolled in the patient assistance program through 2022. This encounter is for the program renewal through 2023. STATUS OF APPLICATION: Can be viewed under the encounter Additional Documentation > SmartForms: [facility] PATIENT ASSISTANCE Completed forms sent to the side gluer will be available under Scanned Documents in the patient's chart. The finalized form can be found under PAP_Medication Name_Complete. PAP Reeling And Tubing Machine Operator Team will submit and track progress on the completed PAP application. Please do NOT fax to side gluer unless directed by the PAP Reeling And Tubing Machine Operator Team. Please see SmartForm described above for specifics. Please DO NOT close this encounter. Sent to patient: Contacted patient to verify information for application. Sent to prescriber: Sent to prescriber. Confirmation Received. Sent to side gluer: Allergies As of Date: 06/16/2023 Noted Allergy [...] subcutaneously one time a week. Gets through [employer] PAP. - empagliflozin (JARDIANCE) 25 mg tablet Take 1 tablet by mouth daily with breakfast. Gets through [facility] PAP. - ferrous sulfate 325 mg (65 [...] B12 deficiency [E53.8] 08/13/2021 Encounter Status:Closed by VELASQUEZ MCWILLIAMSUSER on 07/17/23 [facility] 04-22-2023 Miscellaneous Notes MILLA Rabago completed these. They have been faxed back to the company. Sw spoke with patient and verified that patient Jardiance medication is the only medication that she applies to Cares for assistance. Sw will take forms to Dr. Presley office for prescription completion. documented in this encounter [facility] 03-05-2023 Miscellaneous Notes Sw spoke with patient in regards to [employer] and discount cab vouchers. Sw has updated brochures with transit cost and stops. Sw will mail [employer] brochures and [facility] resource guide to patient home. Patient noted that she would appreciate updated [employer] stop info and discount cab voucher guidelines. Sw left message for patient that Sw has updated [employer] transit stop info and discounted cab pass info. Sw noted in message to patient to let this Sw know if patient would like info mailed out to her and if she has any other social service needs. documented in this encounter [facility] 02-28-2023 Note HNO ID: [id number] Author: Peter Presley MD Service: ? Author Type: Physician Type: Progress Notes Filed: 03/31/2023 12:27 AM Note Text: This note was created using GenVaultriter. Subjective Steve Russell is a 77 year [...] subcutaneously one time a week. Gets through [employer] PAP. empagliflozin (JARDIANCE) 25 mg tablet Take 1 tablet by mouth daily with breakfast. Gets through [facility] PAP. ferrous sulfate 325 mg (65 mg [...] Estimated Average Gluc (more content not included)... [facility] 02-28-2023 Instructions Peter Presley MD - 02/28/2023 3:12 PM EDT Start iron tablet over the counter 1 pill on Friday, Friday and Friday. Dose is up to you. documented in this encounter [facility] 02-28-2023 History of Presen t illness Narrative This note was created using GenVaultriter. Subjective Steve Russell is a 77 year [...] by mouth daily with breakfast. Gets through [employer] [facility] PAP. ferrous sulfate 325 mg (65 [...] the date of the service which included [id number] patient care, completing clinical documentation, obtaining and/or reviewing separately obtained history, performing a medically appropriate examination, counseling and educating the patient/family/caregiver, and ordering medications, tests, or procedures. Peter Presley MD documented in this encounter [facility] 02-13-2023 Miscellaneous Notes Left detailed vm informing patient of lab orders. Filed order Patient asking for lab orders to be completed prior to 02/28/23 appt. Radha Lea MA documented in this encounter [facility] 09-12-2022 Note HNO ID: [id number] Author: Melony Delgado [facility] Service: ? Author Type: Pharmacist Type: Progress [...] modifications and med adherence encouraged. Consult to [facility] to see if qualifies for Medicaid. At last PharmD visit on 07/25, Trulicity and Jardiance were increased. Subjective: HPI: States she needs prescriptions renewed: atorvastatin, glipizide, pantoprazole, Jardiance 10mg. I'm all confused. States she switched insurance. Used to get prescriptions through the mail through [facility]. Said [facility] - [facility]s [facility]. Feels overwhelmed with meds. Has meds at various places in her house. Has been out of [facility] for a long [...] insurance; thinks [facility] preferred Rx coverage: [facility] Medicare Affordability: no issues Diabetes [...] night if can't sleep. Denies any hx [place]/stroke. Denies GI issues though problem list indicates [...] list dulaglutide (TRULIC (more content not included)... [facility] 09-12-2022 Miscellaneous Notes During PharmD visit today, it was noted patient has NOT been taking many of her medications. Patient would benefit greatly from adherence packaging. The following prescriptions need sent to [facility] and are pended for PCP/COMMERCIAL INSTRUCTOR SUPERVISOR's signature: Requested Prescriptions Pending Prescriptions Disp Refills [...] if clinically indicated. Thanks! Melony Delgado PharmD, [facility] Primary Care Clinical Pharmacist documented in this encounter [facility] 09-12-2022 History of Presen t illness [...] modifications and med adherence encouraged. Consult to [facility] to see if qualifies for Medicaid. At last PharmD visit on 07/25, Trulicity and Jardiance were increased. Subjective: HPI: States she needs prescriptions renewed: atorvastatin, glipizide, pantoprazole, Jardiance 10mg. I'm all confused. States she switched insurance. Used to get prescriptions through the mail through [facility]. Said [facility] - needs all meds [facility] to [facility]. Feels overwhelmed with meds. Has meds at various places in her house. Has been out of [facility] for a long [...] insurance; thinks [facility] preferred Rx coverage: [facility] Medicare Affordability: no issues Diabetes [...] night if can't sleep. Denies any hx [place]/stroke. Denies GI issues though problem list indicates [...] by mouth daily with breakfast. Gets through [facility] PAP. Has Jardiance 10mg tablets. Taking [...] completed for 25mg tabs --> PharmD called [facility] (on hold for ~30 mins); confirmed [...] benefit greatly from adherence packaging. PharmD called [facility] to see if they accept patient's insurance and gyroscopic engineering technician believes it would be accepted. PharmD provided patient info and insurance information. Will have all prescriptions sent to [facility] through their adherence packaging and mail delivery service Patient due for labwork. Requested she have drawn in the next 1-2 weeks, she was agreeable to doing so. 2. Type 2 diabetes mellitus without complication, without long-term current use of insulin ([facility]) - ICD9: 250.00, ICD10: E11.9 A1c goal [...] Patient verbalized understanding of instructions. Melony Delgado, PharmD, BCPS Primary Care Clinical Pharmacist The majority of the pharmacy visit (> 50%) was spent counseling and/or coordinating care for the patient. interaction: telephonic time was 90 minutes. documented in this encounter [facility] 07-25-2022 History of Presen t illness [...] modifications and med adherence encouraged. Consult to [facility] to see if qualifies for Medicaid. [...] in Pharmacy: [facility] Rx coverage: [facility] Medicare Affordability: no issues Diabetes [...] verbalized understanding of instructions. Melony Delgado PharmD, [facility] Primary Care Clinical Pharmacist The majority of the pharmacy visit (> 50%) was spent counseling and/or coordinating care for the patient. interaction: face to face time was 45 minutes. documented in this encounter [facility] 07-25-2022 Instructions Melony Delgado RPh - 07/25/2022 2:30 PM EST Call Medicaid Shared Services number [phone], to reach out to our area services [...] the 25mg tablets. documented in this encounter [facility] 07-09-2022 Miscellaneous Notes Rec'd fax from [facility] patient assistance program. This says pt is approved from 07/09/22 to 06/29/2023 unless pts circumstances changes. documented in this encounter [facility] 06-20-2022 Miscellaneous Notes Sw and patient [...] provided patient with Medicaid Shared Services number [phone], to reach out to our area services to see about material that they could provide to patient regarding how Medicaid assistance works with Medicare. Sw noted that calling above number can be screened over the phone for Medicaid. Patient reports that she will call after the of the year as she is busy with the holidays. documented in this encounter [facility] 06-20-2022 History of Presen t illness [...] insulin (HCC) - ICD9: 250.00, ICD10: E11.9 (primary diagnosis) [...] verbalized understanding of instructions. Melony Delgado PharmD, [facility] Primary Care Clinical Pharmacist The majority of the pharmacy visit (> 50%) was spent counseling and/or coordinating care for the patient. interaction: face to face time was 65 minutes. documented in this encounter [facility] 06-20-2022 Instructions Melony Delgado RPh - [...] you need refills. documented in this encounter [facility] 05-30-2022 Miscellaneous Notes PAP technicians completed PAP application. PCP portion placed on PCP's desk. Will get patient's signatures at upcoming appt on 06/20. Melony Delgado PharmD, [facility] Primary Care Clinical Pharmacist documented in this encounter [facility] 05-17-2022 Miscellaneous Notes Patient has been [...] advise. Quyen Ramos documented in this encounter [facility] 04-29-2022 Miscellaneous Notes Patient recently referred by PCP to [facility] for DM mngt Called patient to schedule initial appt Unable to reach patient, no dialtone when calling. 3rd outreach attempt for patient, will plan to send letter. Melony Delgado PharmD, [facility] Primary Care Clinical Pharmacist Malcolm Torres [facility] documented in this encounter [facility] 04-16-2022 Miscellaneous Notes Telephoned the patient to schedule a new Primary Care pharmacy appt. Unable to leave a message. Phone saying the call did not go through. documented in this encounter [facility] 01-09-2022 Instructions Harsha Ortiz MD - 01/09/2022 10:56 AM EDT Images from the original note were not included. documented in this encounter [facility] 01-09-2022 History of Presen t illness [...] Harsha Ortiz MD documented in this encounter [facility] 12-11-2021 History of Presen t illness Narrative This note was created using 6connectter. Subjective Steve Russell is a 76 year [...] Peter Presley MD documented in this encounter [facility] 09-24-2021 Miscellaneous Notes This encounter was opened in error. @[email or web address]@ documented in this encounter [facility] documented as of this encounter (statuses as of 03/31/2023) [facility] History of Past illness Narrative* Problem [...] of this encounter (statuses as of 04/22/2023) [facility] History of Past illness Narrative* Problem [...] of this encounter (statuses as of 08/12/2023) [facility] History of Past illness Narrative* Problem [...] of this encounter (statuses as of 08/14/2023) [facility] History of Past illness Narrative* Problem [...] as of this encounter (statuses as of 08/15/2023) [facility] History of Past illness Narrative* Problem [...] as of this encounter (statuses as of 08/29/2023) [facility] History of Past illness Narrative* Problem Noted Date Resolved Date Uncontrolled type 2 diabetes mellitus without complication, without long-term current use of insulin 01/25/2016 08/20/2018 HYPOTHYROIDISM NOS 03/24/2007 04/02/2015 DIABETES MELLITUS TYPE II-UNCOMPL 01/05/2007 04/02/2015 Depressive disorder, not elsewhere classified 04/02/2015 HYPERLIPIDEMIA NEC/NOS 01/05/2007 5 documented as of this encounter (statuses as of 09/24/2021) [facility] History of Past illness Narrative* Problem Noted Date Resolved Date Uncontrolled type 2 diabetes mellitus without complication, without long-term current use of insulin 01/25/2016 08/20/2018 HYPOTHYROIDISM NOS 03/24/2007 04/02/2015 DIABETES MELLITUS TYPE II-UNCOMPL 01/05/2007 04/02/2015 Depressive disorder, not elsewhere classified 04/02/2015 HYPERLIPIDEMIA NEC/NOS 01/05/2007 5 documented as of this encounter (statuses as of 01/09/2022) [facility] History of Past illness Narrative* Problem Noted Date Resolved Date Uncontrolled type 2 diabetes mellitus without complication, without long-term current use of insulin 01/25/2016 08/20/2018 HYPOTHYROIDISM NOS 03/24/2007 04/02/2015 DIABETES MELLITUS TYPE II-UNCOMPL 01/05/2007 04/02/2015 Depressive disorder, not elsewhere classified 04/02/2015 HYPERLIPIDEMIA NEC/NOS 01/05/2007 5 documented as of this encounter (statuses as of 02/02/2022) [facility] History of Past illness Narrative* Problem Noted Date Resolved Date Uncontrolled type 2 diabetes mellitus without complication, without long-term current use of insulin 01/25/2016 08/20/2018 HYPOTHYROIDISM NOS 03/24/2007 04/02/2015 DIABETES MELLITUS TYPE II-UNCOMPL 01/05/2007 04/02/2015 Depressive disorder, not elsewhere classified 04/02/2015 HYPERLIPIDEMIA NEC/NOS 01/05/2007 5 documented as of this encounter (statuses as of 04/16/2022) [facility] History of Past illness Narrative* Problem Noted Date Resolved Date Uncontrolled type 2 diabetes mellitus without complication, without long-term current use of insulin 01/25/2016 08/20/2018 HYPOTHYROIDISM NOS 03/24/2007 04/02/2015 DIABETES MELLITUS TYPE II-UNCOMPL 01/05/2007 04/02/2015 Depressive disorder, not elsewhere classified 04/02/2015 HYPERLIPIDEMIA NEC/NOS 01/05/2007 5 documented as of this encounter (statuses as of 04/29/2022) [facility] History of Past illness Narrative* Problem Noted Date Resolved Date Uncontrolled type 2 diabetes mellitus without complication, without long-term current use of insulin 01/25/2016 08/20/2018 HYPOTHYROIDISM NOS 03/24/2007 04/02/2015 DIABETES MELLITUS TYPE II-UNCOMPL 01/05/2007 04/02/2015 Depressive disorder, not elsewhere classified 04/02/2015 HYPERLIPIDEMIA NEC/NOS 01/05/2007 5 documented as of this encounter (statuses as of 05/17/2022) [facility] History of Past illness Narrative* Problem Noted Date Resolved Date Uncontrolled type 2 diabetes mellitus without complication, without long-term current use of insulin 01/25/2016 08/20/2018 HYPOTHYROIDISM NOS 03/24/2007 04/02/2015 DIABETES MELLITUS TYPE II-UNCOMPL 01/05/2007 04/02/2015 Depressive disorder, not elsewhere classified 04/02/2015 HYPERLIPIDEMIA NEC/NOS 01/05/2007 5 documented as of this encounter (statuses as of 05/30/2022) [facility] of Past illness Narrative* Problem Noted Date Resolved Date Uncontrolled type 2 diabetes mellitus without complication, without long-term current use of insulin 01/25/2016 08/20/2018 HYPOTHYROIDISM NOS 03/24/2007 04/02/2015 DIABETES MELLITUS TYPE II-UNCOMPL 01/05/2007 04/02/2015 Depressive disorder, not elsewhere classified 04/02/2015 HYPERLIPIDEMIA NEC/NOS 01/05/2007 5 documented as of this encounter (statuses as of 06/21/2022) [facility] of Past illness Narrative* Problem Noted Date Resolved Date Uncontrolled type 2 diabetes mellitus without complication, without long-term current use of insulin 01/25/2016 08/20/2018 HYPOTHYROIDISM NOS 03/24/2007 04/02/2015 DIABETES MELLITUS TYPE II-UNCOMPL 01/05/2007 04/02/2015 Depressive disorder, not elsewhere classified 04/02/2015 HYPERLIPIDEMIA NEC/NOS 01/05/2007 5 documented as of this encounter (statuses as of 06/21/2022) [facility] of Past illness Narrative* Problem Noted Date Resolved Date Uncontrolled type 2 diabetes mellitus without complication, without long-term current use of insulin 01/25/2016 08/20/2018 HYPOTHYROIDISM NOS 03/24/2007 04/02/2015 DIABETES MELLITUS TYPE II-UNCOMPL 01/05/2007 04/02/2015 Depressive disorder, not elsewhere classified 04/02/2015 HYPERLIPIDEMIA NEC/NOS 01/05/2007 5 documented as of this encounter (statuses as of 07/09/2022) [facility] of Past illness Narrative* Problem Noted Date Resolved Date Uncontrolled type 2 diabetes mellitus without complication, without long-term current use of insulin 01/25/2016 08/20/2018 HYPOTHYROIDISM NOS 03/24/2007 04/02/2015 DIABETES MELLITUS TYPE II-UNCOMPL 01/05/2007 04/02/2015 Depressive disorder, not elsewhere classified 04/02/2015 HYPERLIPIDEMIA NEC/NOS 01/05/2007 5 documented as of this encounter (statuses as of 07/25/2022) [facility] of Past illness Narrative* Problem Noted Date Resolved Date Uncontrolled type 2 diabetes mellitus without complication, without long-term current use of insulin 01/25/2016 08/20/2018 HYPOTHYROIDISM NOS 03/24/2007 04/02/2015 DIABETES MELLITUS TYPE II-UNCOMPL 01/05/2007 04/02/2015 Depressive disorder, not elsewhere classified 04/02/2015 HYPERLIPIDEMIA NEC/NOS 01/05/2007 5 documented as of this encounter (statuses as of 09/12/2022) [facility] of Past illness Narrative* Problem Noted Date Resolved Date Uncontrolled type 2 diabetes mellitus without complication, without long-term current use of insulin 01/25/2016 08/20/2018 HYPOTHYROIDISM NOS 03/24/2007 04/02/2015 DIABETES MELLITUS TYPE II-UNCOMPL 01/05/2007 04/02/2015 Depressive disorder, not elsewhere classified 04/02/2015 HYPERLIPIDEMIA NEC/NOS 01/05/2007 5 documented as of this encounter (statuses as of 09/12/2022) [facility] History of Past illness Narrative* Problem Noted Date Diagnosed Date Resolved Date Uncontrolled type 2 diabetes mellitus without complication, without long-term current use of insulin 01/25/2016 08/20/2018 HYPOTHYROIDISM NOS 03/24/2007 5 DIABETES MELLITUS TYPE II-UNCOMPL 01/05/2007 04/02/2015 Depressive disorder, not elsewhere classified 01/06/20 07 04/02/2015 HYPERLIPIDEMIA NEC/NOS 01/05/200704/02 documented as of this encounter (statuses as of 02/13/2023) [facility] of Past illness Narrative* Problem Noted Date Diagnosed Date Resolved Date Uncontrolled type 2 diabetes mellitus without complication, without long-term current use of insulin 01/25/2016 08/20/2018 HYPOTHYROIDISM NOS 03/24/2007 5 DIABETES MELLITUS TYPE II-UNCOMPL 01/05/2007 04/02/2015 Depressive disorder, not elsewhere classified 01/06/20 07 04/02/2015 HYPERLIPIDEMIA NEC/NOS 01/05/200704/02 documented as of this encounter (statuses as of 03/05/2023) [facility] Diagnosis OPENED IN ERROR- Primary To allow closing an encounter opened in error (used in SmartSet) documented in this encounter [facility] Diagnosis Combined forms of age-related cataract of both eyes- Primary Other and combined forms of senile cataract Type 2 diabetes mellitus without retinopathy (HCC) Type II or unspecified type diabetes mellitus without mention of complication, not stated as uncontrolled Mgq-jqi-ycpzeewhoup corneal dystrophy of both eyes documented in this encounter [facility]* Diagnosis Uncontrolled type 2 diabetes mellitus with hyperglycemia (HCC)- Primary Recurrent kidney stones Calculus of kidney Esophageal reflux Depression, unspecified depression type Hyperlipidemia, unspecified hyperlipidemia type Acquired hypothyroidism Unspecified hypothyroidism B12 deficiency Other B-complex deficiencies Encounter for long-term current use of medication Iron deficiency anemia, unspecified iron deficiency anemia type documented in this encounter [facility] note* Diagnosis Esophageal reflux Persistent depressive disorder documented in this encounter [facility] note* Diagnosis Controlled type 2 diabetes mellitus without complication, without long-term current use of insulin (HCC)- Primary Medication management Encounter for long-term (current) use of other medications documented in this encounter [facility] note* Diagnosis Type 2 diabetes mellitus without complication, without long-term current use of insulin (HCC)- Primary Medication management Encounter for long-term (current) use of other medications documented in this encounter [facility] note* Diagnosis Medication management- Primary Encounter for long-term (current) use of other medications Type 2 diabetes mellitus without complication, without long-term current use of insulin (HCC) Hyperlipidemia, unspecified hyperlipidemia type documented in this encounter [facility] note* Diagnosis Esophageal reflux Persistent depressive disorder Acquired hypothyroidism Unspecified hypothyroidism documented in this encounter [facility]* Diagnosis Acquired hypothyroidism- Primary Unspecified hypothyroidism B12 deficiency Other B-complex deficiencies Hyperlipidemia, unspecified hyperlipidemia type Iron deficiency anemia, unspecified iron deficiency anemia type Uncontrolled type 2 diabetes mellitus with hyperglycemia (HCC) documented in this encounter [facility] note* Diagnosis Acquired hypothyroidism- Primary Unspecified hypothyroidism Type 2 diabetes mellitus without complication, without long-term current use of insulin (HCC) Iron deficiency anemia, unspecified iron deficiency anemia type B12 deficiency Other B-complex deficiencies Vitamin D deficiency Unspecified vitamin D deficiency Encounter for long-term current use of medication documented in this encounter [facility] note* Diagnosis Elevated LFTs- Primary Other abnormal blood chemistry documented in this encounter [facility] for referral (narrative)* Diagnostic Procedure Only (Routine) - Pending Review Specialty Diagnoses / Procedures Referred By Controlo t Referred To Contact US IMAGING Diagnoses Elevated LFTs Procedures US ABD RIGHT UPPER QUADRANT US ABDOMINAL REAL TIME W/IMAGE LIMITED Orin Christianson APRN.CNP [address] [place] [address] [facility] [place] [address] Referral ID Status Reason Start Date Expiration Date Visits Requested Visits Authorized [id number] Pending Review Auto-Generat ed Referral 08/27/2023 09/25/[address] 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 In the event of a Fluress shortage, administer Trenary-Fluor 1 drop into both eyes as directed for applanation tonometry Given 01/09/2022 10:00 AM EDT 1 Drop PHENYLephrine 2.5 % 1 Drop (AK-DILATE, TJ-SYNEPHRINE) 1 Drop, BOTH EYES, DIRECTED, Starting on Fri01/09/22 at 1000, Until Fri01/09/22 at 215, Administer for dilation PROTECT FROM LIGHT Given 01/09/2022 10:00 AM EDT 1 Drop tropicamide 1 % 1 Drop (MYDRIACYL) 1 Drop, BOTH EYES, DIRECTED, Starting on Fri01/09/22 at 1000, Until Fri01/09/22 at 215, Administer for dilation Given 01/09/2022 10:00 AM EDT 1 Drop Additional Source Comments INFORMATION SOURCE (unrecogn ized section and content) DATE CREATED AUTHOR AUTHOR'S ORGANIZ ATION 09/02/2023 [facility] Source Comments (unrecognize d section and content) In the event this informatio n is protected by the Federal Confidentiality of Alcohol and Drug Abuse Patient Records regulations: The Federal rules restrict any use of the information to criminally investigate or prosecute any alcohol or drug abuse patient.[facility] event this information is protected by the Federal Confidentiality of Alcohol and Drug Abuse Patient Records regulations: The Federal rules restrict any use of the information to criminally investigate or prosecute any alcohol or drug abuse patient.[facility] the event this information is protected by the Federal Confidentiality of Alcohol and Drug Abuse Patient Records regulations: The Federal rules restrict any use of the information to criminally investigate or prosecute any alcohol or drug abuse patient.[facility] the event this information is protected by the Federal Confidentiality of Alcohol and Drug Abuse Patient Records regulations: The Federal rules restrict any use of the information to criminally investigate or prosecute any alcohol or drug abuse patient.[facility] the event this information is protected by the Federal Confidentiality of Alcohol and Drug Abuse Patient Records regulations: The Federal rules restrict any use of the information to criminally investigate or prosecute any alcohol or drug abuse patient.[facility] the event this information is protected by the Federal Confidentiality of Alcohol and Drug Abuse Patient Records regulations: The Federal rules restrict any use of the information to criminally investigate or prosecute any alcohol or drug abuse patient.[facility] the event this information is protected by the Federal Confidentiality of Alcohol and Drug Abuse Patient Records regulations: The Federal rules restrict any use of the information to criminally investigate or prosecute any alcohol or drug abuse patient.[facility] the event this information is protected by the Federal Confidentiality of Alcohol and Drug Abuse Patient Records regulations: The Federal rules restrict any use of the information to criminally investigate or prosecute any alcohol or drug abuse patient.[facility] the event this information is protected by the Federal Confidentiality of Alcohol and Drug Abuse Patient Records regulations: The Federal rules restrict any use of the information to criminally investigate or prosecute any alcohol or drug abuse patient.[facility] the event this information is protected by the Federal Confidentiality of Alcohol and Drug Abuse Patient Records regulations: The Federal rules restrict any use of the information to criminally investigate or prosecute any alcohol or drug abuse patient.[facility] the event this information is protected by the Federal Confidentiality of Alcohol and Drug Abuse Patient Records regulations: The Federal rules restrict any use of the information to criminally investigate or prosecute any alcohol or drug abuse patient.[facility] the event this information is protected by the Federal Confidentiality of Alcohol and Drug Abuse Patient Records regulations: The Federal rules restrict any use of the information to criminally investigate or prosecute any alcohol or drug abuse patient.[facility] the event this information is protected by the Federal Confidentiality of Alcohol and Drug Abuse Patient Records regulations: The Federal rules restrict any use of the information to criminally investigate or prosecute any alcohol or drug abuse patient.[facility] the event this information is protected by the Federal Confidentiality of Alcohol and Drug Abuse Patient Records regulations: The Federal rules restrict any use of the information to criminally investigate or prosecute any alcohol or drug abuse patient.[facility] the event this information is protected by the Federal Confidentiality of Alcohol and Drug Abuse Patient Records regulations: The Federal rules restrict any use of the information to criminally investigate or prosecute any alcohol or drug abuse patient.[facility] the event this information is protected by the Federal Confidentiality of Alcohol and Drug Abuse Patient Records regulations: The Federal rules restrict any use of the information to criminally investigate or prosecute any alcohol or drug abuse patient.[facility] the event this information is protected by the Federal Confidentiality of Alcohol and Drug Abuse Patient Records regulations: The Federal rules restrict any use of the information to criminally investigate or prosecute any alcohol or drug abuse patient.[facility] the event this information is protected by the Federal Confidentiality of Alcohol and Drug Abuse Patient Records regulations: The Federal rules restrict any use of the information to criminally investigate or prosecute any alcohol or drug abuse patient.[facility] the event this information is protected by the Federal Confidentiality of Alcohol and Drug Abuse Patient Records regulations: The Federal rules restrict any use of the information to criminally investigate or prosecute any alcohol or drug abuse patient.[facility] the event this information is protected by the Federal Confidentiality of Alcohol and Drug Abuse Patient Records regulations: The Federal rules restrict any use of the information to criminally investigate or prosecute any alcohol or drug abuse patient.[facility] the event this information is protected by the Federal Confidentiality of Alcohol and Drug Abuse Patient Records regulations: The Federal rules restrict any use of the information to criminally investigate or prosecute any alcohol or drug abuse patient.[facility] the event this information is protected by the Federal Confidentiality of Alcohol and Drug Abuse Patient Records regulations: The Federal rules restrict any use of the information to criminally investigate or prosecute any alcohol or drug abuse patient.[facility] Reason for Visit (unrecogniz ed section [...] HH Verbal orders Reason Comments SW Update Reason Onset Date Comments Transition Of Care 08/13/2023 Reason Comments [facility], verbal order Reason Comments Results Care Teams (unrecognized sec tion and content) Computer Hardware Technician Relationship Specialty Start Date End Date Peter Presley MD [address] [place], [place] [id number] PCP - General 03/24/07 Maciej Lopez RPh [address] [facility] [place] [address] Pharmacist Pharmacy 02/26/19 Computer Hardware Technician Relationship Specialty Start Date End Date Peter Presley MD [address] [facility] [place] [address] PCP - General 03/24/07 [facility] [address] [facility] [place] [address] Pharmacist Pharmacy 02/26/19 Computer Hardware Technician Relationship Specialty Start Date End Date Peter Presley MD [address] [facility] [place] [address] PCP - General 03/24/07 [facility]Maciej [facility] [address] [facility] [place] [address] Pharmacist Pharmacy 02/26/19 Computer Hardware Technician Relationship Specialty Start Date End Date Peter Presley MD [address] [facility] [place] [address] PCP - General 03/24/07 Computer Hardware Technician Relationship Specialty Start Date End Date Peter Presley MD [address] [facility] [place] [address] PCP - General 03/24/07 Computer Hardware Technician Relationship Specialty Start Date End Date Peter Presley MD [address] [facility] [place] [address] PCP - General 03/24/07 Melony Delgado, [facility] [address] [place] [id number] Pharmacist Pharmacy 06/20/22 Computer Hardware Technician Relationship Specialty Start Date End Date Peter Presley MD [address] [facility] [place] [address] PCP - General 03/24/07 [place] [address] [place] [address] Pharmacist Pharmacy 06/20/22 Computer Hardware Technician Relationship Specialty Start Date End Date Peter Presley MD [address] [place] [address] PCP - General 03/24/07 Melony [place] [address] [place] [address] Pharmacist Pharmacy 06/20/22 Computer Hardware Technician Relationship Specialty Start Date End Date Peter Presley MD [address] [place] [address] PCP - General 03/24/07 [place]ony [place] [address] [place] [address] Pharmacist Pharmacy 06/20/22 Computer Hardware Technician Relationship Specialty Start Date End Date Peter Presley MD [address] [place] [address] PCP - General 03/24/07 [place] [address] [place] [address] Pharmacist Pharmacy 06/20/22 Computer Hardware Technician Relationship Specialty Start Date End Date Peter Presley MD [address] [place] [address] PCP - General 03/24/07 [place] [address] [place] [address] Pharmacist Pharmacy 06/20/22 Computer Hardware Technician Relationship Specialty Start Date End Date Peter Presley MD [address] [place] [address] PCP - General 03/24/07 [place] [address] [place] [address] Pharmacist Pharmacy 06/20/22 Computer Hardware Technician Relationship Specialty Start Date End Date Peter Presley MD [address] [place] [address] PCP - General 03/24/07 Humble, [place]Steven [place] [address] [place] [address] Pharmacist Pharmacy 06/20/22 Computer Hardware Technician Relationship Specialty Start Date End Date Peter Presley MD [address] [place] [address] PCP - General 03/24/07 [place] [address] [place] [address] Pharmacist Pharmacy 06/20/22 Computer Hardware Technician Relationship Specialty Start Date End Date Peter Presley MD [address] [place] [address] PCP - General 03/24/07 Humble, [place] [address] [place] [address] Pharmacist Pharmacy 06/20/22 Computer Hardware Technician Relationship Specialty Start Date End Date Peter Presley MD [address] [place], [place] [id number] PCP - General 03/24/07 [facility]Melony [facility]Miss[facility] [address] [place] [address] Pharmacist Pharmacy 06/20/22 Computer Hardware Technician Relationship Specialty Start Date End Date Peter Presley MD [address] [place], [place] [id number] PCP - General 03/24/07 Melony Delgado, [facility] [address] [place] [address] Pharmacist Pharmacy 06/20/22 FOR RECORDS [...] BE BASED ON THE PRIMARY CLINICAL RECORDS. [facility]. provides no warranty or guarantee of the accuracy or completeness of information in this document.
== END | disposition home or self-care (01) ==
PROVIDERS: PCP Internal Medicine; Referring Provider Internal Medicine; Visit Provider Internal Medicine
DX: R79.89 Other specified abnormal findings of blood chemistry (principal)
CPT/HCPCS: 76705

== ENCOUNTER 2023-12-02 19:54 | Observation (INO) | payer MEDICARE, SELFPAY ==
[2023-12-02] VITALS (17 sets, daily range): BP systolic 115–138; BP diastolic 56–106; PULSE 74–95; RESP 13–25; TEMP 36.5; O2SAT 97–99; BMI 24.2
[2023-12-02 20:25] LABS: Bedside Glucose 499 mg/dL (74-106)
[2023-12-02 20:37] LABS: Absolute Lymphocyte Count 1.56 X10^3/uL (0.83-4.51); Basophil# 0.05 X10^3/uL; Basophil% 0.9 % (0-1); Eosinophil# 0.22 X10^3/uL; Eosinophils% 4.2 % (0-5); Hematocrit 34.3 % (37-47); Hemoglobin 10.6 g/dL (12.0-15.0); Lymphocyte # 1.56 X10^3/ul (0.83-4.51); Lymphocyte % 29.5 % (19-41); Mean Corp Hgb Conc 30.9 g/dL (32-36); Mean Corpuscular Hgb 28.6 pg (27.0-32.0); Mean Corpuscular Volume 92.7 fL (81-99); Mean Platelet Vol. 12.1 fl (6.2-12.0); Monocyte# 0.38 X10^3/uL; Monocyte% 7.2 % (0-10); NRBC Flagged by Analyzer 0 % (0-5); Neutrophil # 3.04 X10^3/uL (2.7-7.7); Neutrophil % 57.6 % (47-70); Platelet Count 175 K/mm3 (150-450); RBC Distribution Width CV 14.6 % (11.6-14.6); RBC Distribution Width SD 49.8 fl (35.1-43.9); White Blood Count 5.3 K/mm3 (4.4-11.0)
--- NOTE | 2023-12-02 21:22 | EX.ED.DYSGE1 ---
HPI History of Present Illness Chief Complaint: Hyperglycemia Narrative Narrative: 78-year-old female presenting with confusion. Apparently she was crossing the street and a passerby noticed she was not acting right. She states she does not remember being confused, but states when you are in it you do not realize it. EMS was called. Apparently her blood sugars are running high. She states she is taking her medications but states she also is not sure which ones are for what. She then states she might not be taking them all the time. Apparently she was found to have a UTI the last time she was here with this. She was in the hospital and sent to a jail facility. She lives at home alone. She reports that her children want her to sell her home and move where they are. 1 lives in [place] and 1 [address] in [place] [facility] Medical History Diabetes Kidney stones Adult failure to thrive Hyperglycemia due to diabetes mellitus Acute dehydration Head injury Home Medications ?Medication ?Instructions ?Recorded ?Last Taken ?Type levothyroxine 50 mcg tablet 50 mcg PO DAILY thyroid 06/07/14 Unknown History metformin 500 mg tablet,extended 2,000 mg PO BREAKFAST DM 06/07/14 Unknown History release 24 hr pantoprazole 40 mg tablet,delayed 40 mg PO BREAKFAST GERD 06/07/14 Unknown History release aspirin 81 mg tablet,delayed 81 mg PO DAILY@0800 cad 05/28/19 Unknown History release atorvastatin 40 mg tablet 40 mg PO QHS CHOLESTEROL 05/28/19 Unknown History escitalopram oxalate 10 mg tablet 10 mg PO DAILY DEPRESS 05/28/19 Unknown History ferrous gluconate 236 mg (27 mg 65 mg PO BID supplement 05/28/19 Unknown History iron) tablet levothyroxine 25 mcg tablet 25 mcg PO .[facility] thyroid 08/09/23 Unknown History glipizide 10 mg tablet 10 mg PO BID #60 tabs 08/12/23 Unknown Rx dulaglutide 3 mg/0.5 mL 3 mg subcut QWEEK 12/03/23 12/01/23 History subcutaneous pen injector (Trulicity) glipizide 10 mg tablet, extended 10 mg PO DAILY 12/03/23 Unknown History release 24 hr Allergy/AdvReac Type Severity Reaction Status Date / Time venlafaxine HCl (From Allergy Rash Verified 08/09/23 11:14 Effexor) meclizine AdvReac Other Verified 08/09/23 11:14 Surgical History History of cholecystectomy History of knee joint replacement H/O: section Social History Smoking Status: Never smoker ROS ROS ED Constitutional Constitutional ED: Denies chills or fever(s) Eyes Eyes: Denies blurry vision or change in vision ENT ENT ED: Denies rhinorrhea Cardiovascular Cardiovascular: Denies chest pain or palpitations Respiratory/Chest Respiratory/Chest: Denies cough or dyspnea Gastrointestinal Gastrointestinal: Denies abdominal pain, constipation or vomiting Genitourinary Genitourinary ED: Denies dysuria or hematuria Musculoskeletal Musculoskeletal: Denies arthralgias or back pain Integumentary Denies Abrasions Neurologic Neurologic: Denies headache(s) EXAM Physical Exam Const Vital Signs: 12/02/23 19:55 12/02/23 20:17 12/02/23 20:30 Temperature 97.7 F L Temperature Source Temporal Pulse Rate 95 82 79 Respiratory Rate 17 18 16 Respiratory Effort Respiratory Pattern Blood Pressure 118/61 118/62 Blood Pressure Mean 80 79 Pulse Ox 97 97 97 Oxygen Delivery Method Room Air 12/02/23 20:45 12/02/23 21:00 12/02/23 21:15 Temperature Temperature Source Pulse Rate 75 77 76 Respiratory Rate 17 20 H 17 Respiratory Effort Respiratory Pattern Blood Pressure 117/67 133/68 H 116/60 Blood Pressure Mean 82 84 77 Pulse Ox 97 98 98 Oxygen Delivery Method 12/02/23 21:30 12/02/23 21:45 12/02/23 22:00 Temperature Temperature Source Pulse Rate 86 76 82 Respiratory Rate 17 16 18 Respiratory Effort Respiratory Pattern Blood Pressure 138/106 H 118/68 Blood Pressure Mean 117 82 Pulse Ox 97 98 99 Oxygen Delivery Method 12/02/23 22:13 12/02/23 22:14 12/02/23 22:15 Temperature Temperature Source Pulse Rate 82 Respiratory Rate 17 Respiratory Effort Normal Non-Labored Respiratory Pattern Normal Blood Pressure 118/68 123/62 H Blood Pressure Mean 84 81 Pulse Ox 98 Oxygen Delivery Method Room Air 12/02/23 22:15 12/02/23 22:30 12/02/23 22:45 Temperature Temperature Source Pulse Rate 74 91 Respiratory Rate 14 19 H 25 H Respiratory Effort Respiratory Pattern Blood Pressure 123/62 H 116/69 118/87 H Blood Pressure Mean 81 85 99 Pulse Ox 98 98 97 Oxygen Delivery Method 12/02/23 23:08 12/02/23 23:15 12/02/23 23:30 Temperature Temperature Source Pulse Rate 86 82 80 Respiratory Rate 13 21 H 15 Respiratory Effort Respiratory Pattern Blood Pressure 120/63 115/56 L 117/62 Blood Pressure Mean 75 73 78 Pulse Ox 99 97 98 Oxygen Delivery Method 12/02/23 23:45 12/03/23 00:00 Temperature Temperature Source Pulse Rate 83 Respiratory Rate 17 Respiratory Effort Respiratory Pattern Blood Pressure 122/60 H 114/57 L Blood Pressure Mean 79 74 Pulse Ox 97 Oxygen Delivery Method Positive well nourished General Appearance ED: NAD; Negative for pallor HEENT Reports moist mucous membranes Eyes PERRL and EOMs intact bilaterally Chest Wall inspection of chest normal and palpation of chest normal Resp normal respiratory effort and clear to auscultation bilaterally Auscultation: Negative for rales, rhonchi or wheezes Cardio regular rate and regular rhythm GI normal to inspection, nondistended, normoactive bowel sounds Neuro oriented x3 and CN's II-XII intact bilaterally Sensorium / Orientation: alert Motor Exam: general weakness Skin no wounds General Skin Exam: Negative for jaundice or pallor MDM MDM MDM Narrative Medical decision making narrative: Patient presenting with confusion she was found walking in a parking lot. She seems to be alert and awake for me I cannot recall the episode and she was in the parking lot. Differential includes stroke, TIA, hypoglycemia, dehydration, anemia, electrolyte abnormalities, ACS, pneumonia, UTI. CBC will be obtained to assess white blood cell count, hemoglobin, platelets. BMP to assess renal function, electrolytes, glucose. High-sensitivity troponin and EKG to assess for ischemia/dysrhythmia. Chest x-ray to rule out pneumonia CBC shows normal white blood cell count of 5.3. Hemoglobin 10.6.. Platelets are normal at 175. Renal function and electrolytes within normal limits. Glucose is 496 without anion gap. Urinalysis negative for infection. Chest x-ray interpreted by myself shows no acute process. Radiology interpretation agrees. CT of the brain is negative for acute cranial process. Given the patient's confusion and debility I did try to speak to her family although nobody answered the phone. I recommend she be admitted and get her glucose under control. She is amenable to this. Impression: 1. Debility 2. Confusion 3. Hyperglycemia Lab Data Attestation: I reviewed the patient's lab results. Labs: Laboratory Results - last 24 hr 12/02/23 12/02/23 12/02/23 19:48 20:04 23:12 WBC 5.3 RBC 3.70 L Hgb 10.6 L Hct 34.3 L MCV 92.7 MCH 28.6 MCHC 30.9 L RDW Std Deviation 49.8 H RDW Coeff of Nicholas 14.6 Plt Count 175 MPV 12.1 H Immature Gran % (Auto) 0.600 Neut % (Auto) 57.6 Lymph % (Auto) 29.5 [place] % (Auto) 7.2 Eos % (Auto) 4.2 Baso % (Auto) 0.9 Absolute Neuts (auto) 3.0 Absolute Lymphs (auto) 1.56 Nucleated RBC % 0 Sodium 131 L Potassium 4.9 Chloride 98 Carbon Dioxide 25.0 Anion Gap 8 BUN 27 H Creatinine 0.95 Estim Creat Clear Calc 33.93 Est GFR (MDRD) Af Amer 72 Est GFR (MDRD) Non-Af 60 BUN/Creatinine Ratio 28.3 H Glucose 496 H* Calcium 10.2 H Urine Color Yellow Urine Clarity Clear Urine pH 8.0 Ur Specific [place] 1.015 Urine Protein Negative Urine Glucose (UA) 1000 H Urine Ketones Negative Urine Occult Blood 50 H Urine Nitrite Negative Urine Bilirubin Negative Urine Urobilinogen 1 H Ur Leukocyte Esterase Negative Urine RBC 0 SEEN Urine WBC 0 SEEN Ur Squamous Epith Cells 0 SEEN Amorphous Sediment 1+ Urine Bacteria 0 SEEN Urine Mucus 0 SEEN POC Glucose 499 H* 12/02/23 23:42 WBC RBC Hgb Hct MCV MCH MCHC RDW Std Deviation RDW Coeff of Nicholas Plt Count MPV Immature Gran % (Auto) Neut % (Auto) Lymph % (Auto) [place] % (Auto) Eos % (Auto) Baso % (Auto) Absolute Neuts (auto) Absolute Lymphs (auto) Nucleated RBC % Sodium Potassium Chloride Carbon Dioxide Anion Gap BUN Creatinine Estim Creat Clear Calc Est GFR (MDRD) Af Amer Est GFR (MDRD) Non-Af BUN/Creatinine Ratio Glucose Calcium Urine Color Urine Clarity Urine pH Ur Specific [place] Urine Protein Urine Glucose (UA) Urine Ketones Urine Occult Blood Urine Nitrite Urine Bilirubin Urine Urobilinogen Ur Leukocyte Esterase Urine RBC Urine WBC Ur Squamous Epith Cells Amorphous Sediment Urine Bacteria Urine Mucus POC Glucose 341 H Radiography Diagnostic Testing: Clinical Impression(s) from Imaging Studies Brain CT 12/02/23 21:37 IMPRESSION: Age-related changes of the brain. Electronically Signed: Rigoberto Alston DO at 22:46 EDT , Chest X-Ray 12/02/23 22:20 IMPRESSION: No radiographic evidence of acute cardiopulmonary disease. Hiatal hernia. Electronically Signed: Rigoberto Alston DO at 22:55 EDT , Discharge Plan Triage Chief Complaint: Hyperglycemia ED Provider: Daljit Verduzco Dx/Rx/DC Orders Prescriptions: No Action levothyroxine 50 MCG tablet 50 mcg PO DAILY Patient Comments: THYROID MEDICATION pantoprazole 40 MG tablet 40 mg PO BREAKFAST Patient Comments: TAKE ON EMPTY STOMACH, 1/2HR BEFORE MEAL -ACID REFLUX metformin 500 MG tablet extended release 24 hr 2,000 mg PO BREAKFAST Patient Comments: -FOR DIABETES atorvastatin 40 MG tablet 40 mg PO QHS aspirin 81 MG tablet 81 mg PO DAILY@0800 escitalopram oxalate 10 MG tablet 10 mg PO DAILY ferrous gluconate 236 MG tablet 65 mg PO BID levothyroxine 25 mcg tablet 25 mcg PO .MWF Patient Comments: in addition to the 50mcg. so total of 75mcg on MWF glipizide 10 mg tablet 10 mg PO BID Qty: 60 0RF glipizide 10 mg tablet extended release 24hr 10 mg PO DAILY Trulicity 3 mg/0.5 mL pen injector 3 mg subcut QWEEK Primary Care Provider: Pavithra Presley Referrals: Pavithra Presley MD [Primary Care Provider] - Print Language: Hong Konger
[2023-12-02 21:25] LABS: Anion Gap 8 (5-15); BUN 27 mg/dL (7-18); BUN/Creat Ratio 28.3 RATIO (10-20); Calcium,Total 10.2 mg/dL (8.5-10.1); Chloride 98 mmol/L (98-107); Creatinine, Serum 0.95 mg/dL (0.55-1.02); EST Glomerular Filtration Rate 60 mL/min (>60); Est Glom Filt Rate - Afr Amer 72 mL/min (>60); Estimated Creatinine Clearance 33.93 ml/min; Glucose 496 mg/dL (74-106); Potassium 4.9 mmol/L (3.5-5.1); Sodium Level 131 mmol/L (136-145)
--- NOTE | 2023-12-02 21:37 | CT_ITS ---
STUDY: CT BRAIN WITHOUT CONTRAST REASON FOR EXAM: Female, 78 years old. Confusion RADIATION DOSAGE (If Supplied By Facility): CTDIvol = ( 44.99 ) mGy, DLP = ( 863.60 ) mGycm TECHNIQUE: Transaxial CT imaging of the brain was performed without administration of intravenous contrast material. Individualized dose optimization techniques were used for this CT. COMPARISON: No relevant priors. FINDINGS: Normal soft tissue structures. Normal calvarium. Prominent ventricles and extra-axial spaces with mild atrophy. Bilateral white matter microangiopathic ischemic changes of the cerebral hemispheres. Normal basal ganglia and thalami. Normal brainstem. Normal cerebellum. There is no intracranial hemorrhage. There are no findings of an acute ischemic infarction. Normal visualized paranasal sinuses. CT/Brain/Head without Contrast IMPRESSION: Age-related changes of the brain. Electronically Signed: Rigoberto Alston DO at 22:46 EDT ,
--- NOTE | 2023-12-02 22:20 | RAD_ITS ---
INDICATION: altered mental status EXAMINATION/TECHNIQUE: X-RAY - XR Chest 1 View COMPARISON: August 09, 2033 FINDINGS: LINES/DEVICES: None. LUNGS: No consolidation, edema or effusion. Elevated right hemidiaphragm. No pneumothorax. MEDIASTINUM AND CARDIOVASCULAR STRUCTURES: Cardiac silhouette not enlarged. Central airways and mediastinal contour are unremarkable. BONES AND SOFT TISSUES: Degenerative vertebral changes.. Small hiatal hernia. RAD/Chest 1 View IMPRESSION: No radiographic evidence of acute cardiopulmonary disease. Hiatal hernia. Electronically Signed: Rigoberto Alston DO at 22:55 EDT Reading Location ID and State: [facility] / [place] Tel [phone], Service support ,
[2023-12-02] MEDS: 0.9% Normal Saline (1000mL) 1,000 ML 999 ML IV (22:35)
[2023-12-02 23:17] LABS: Bacteria 0 SEEN /hpf (None Seen); Mucous, Urine 0 SEEN /hpf (<or=2+); Red Blood Cells-Urine 0 SEEN /hpf (0-5); Squamous Epithelial Cells - UA 0 SEEN /hpf (5-10); White Blood Cells 0 SEEN /hpf (0-5)
[2023-12-02 23:22] LABS: Color, Urine Yellow (Yellow); Glucose, Dipstick 1000 mg/dl (Normal); Ketone-Dipstick Negative (Negative); Leukocyte Esterase-Dipstick Negative /ul (Negative); Nitrite-Dipstick Negative (Negative); Occult Blood-Urine 50 /ul (Negative); Protein-Dipstick Negative (Negative); Specific Gravity, Urine 1.015 (1.002-1.030); Urine Bilirubin Dipstick Negative (Negative); Urine Clarity Clear (Clear); Urine Urobilinogen 1 mg/dl (Normal)
[2023-12-02 23:46] LABS: Amorphous Sediment 1+
--- NOTE | 2023-12-02 23:47 | ED.RN ---
This RN walked the patient to the bathroom. The patient was drenched in urine and she stated I dont know when I pee. This RN cleaned the patient up but the pt refused to have her feet wiped down because she doesn't feel good.
[2023-12-03] VITALS (8 sets, daily range): BP systolic 95–146; BP diastolic 52–75; PULSE 70–83; RESP 16–18; TEMP 36.4–36.8; O2SAT 96–99; BMI 27.6; BMI 27.5
[2023-12-03 00:01] LABS: Bedside Glucose 341 mg/dL (74-106)
--- NOTE | 2023-12-03 00:24 | PCM.HP.STD ---
[facility] - General General Date of Admission: 12/03/23 Date of Service: 12/03/23 Chief Complaint: Confusion and elevated blood glucose. HPI Narrative STEVE RUSSELL, is a 78 F with a past medical history of hyperlipidemia, hypothyroidism, DM-2; uncontrolled with hyperglycemia, SAMMY, history of renal calculi, chronic depression, GERD, history of cholecystectomy, OA; with history of TKR, admission here from August 09, 2023 to August 12, 2023 for treatment of adult [id number] and another recent admission here from August 15, 2023 to August 16, 2023 for treatment of severe hyperglycemia of 681 mg/dL present on admission complicated by a UTI with patient chronically confused and struggling to live at home alone and unable to consistently take her diabetic medications who now re-presents to [facility] ER complaining of confusion and elevated blood glucose. She stated she does not have a clear memory of the days events so information was gathered from chart, medical staff and computer. According to the records Ms. Russell was crossing the street when a passerby noted she was confused and not acting right so they subsequently activated EMS. The patient is not sure what diabetic medication she is taking at this time. She went on to report that her children wanted to sell her home and to move her they are with 1 living in [place] and 1 living in [place] as she is becoming more chronically confused and they are justifiable worried about her safety. There is no report of fever, chills, nausea, vomiting, abdominal pain, diarrhea or constipation. In the ER she was noted to have severe hyperglycemia of 496 mg/dL present on admission consistent with DM-2; uncontrolled with hyperglycemia complicated by clinical evidence of metabolic encephalopathy with ER provider concerned that patient cannot take care of herself at home with recommendation for possible group home facility in an effort to break the pattern of serial readmission readmission in this elderly patient who can no longer manage her diabetic regimen or take care of herself independently and she was then admitted to the general medical floor under observation status for ongoing care for stay that is expected to be less than [address] [facility] Medical History Diabetes Kidney stones Adult failure to thrive Hyperglycemia due to diabetes mellitus Acute dehydration Head injury Home Medications ?Medication ?Instructions ?Recorded ?Last Taken ?Type levothyroxine 50 mcg tablet 50 mcg PO DAILY thyroid 06/07/14 Unknown History metformin 500 mg tablet,extended 2,000 mg PO BREAKFAST DM 06/07/14 Unknown History release 24 hr pantoprazole 40 mg tablet,delayed 40 mg PO BREAKFAST GERD 06/07/14 Unknown History release aspirin 81 mg tablet,delayed 81 mg PO DAILY@0800 cad 05/28/19 Unknown History release atorvastatin 40 mg tablet 40 mg PO QHS CHOLESTEROL 05/28/19 Unknown History escitalopram oxalate 10 mg tablet 10 mg PO DAILY DEPRESS 05/28/19 Unknown History ferrous gluconate 236 mg (27 mg 65 mg PO BID supplement 05/28/19 Unknown History iron) tablet levothyroxine 25 mcg tablet 25 mcg PO .MWF thyroid 08/09/23 Unknown History glipizide 10 mg tablet 10 mg PO BID dm #60 tabs 08/12/23 Unknown Rx dulaglutide 3 mg/0.5 mL 3 mg subcut QWEEK diabtes 12/03/23 12/01/23 History subcutaneous pen injector (Trulicity) glipizide 10 mg tablet, extended 10 mg PO DAILY diabetes 12/03/23 Unknown History release 24 hr Allergy/AdvReac Type Severity Reaction Status Date / Time venlafaxine HCl (From Allergy Rash Verified 08/09/23 11:14 Effexor) meclizine AdvReac Other Verified 08/09/23 11:14 Surgical History History of cholecystectomy History of knee joint replacement H/O: section Social History Smoking Status: Never smoker ROS ROS Narrative Review of systems: General: Patient denies fever or chills. HENT: Denies headache, denies stuffy nose, denies sore throat EYES: Denies changes in vision or discharge from eyes. Resp: Denies cough, denies shortness of breath Cardiac: Denies chest pain, palpitations or heart racing. GI: Denies abdominal pain, denies changes in bowel, denies nausea or vomiting. : Denies changes in urination, dysuria or hematuria. Extremity: Denies swelling Musculoskeletal: Patient denies arthralgias or myalgias. Neuro: Patient admits to confusion but denies headache, paresthesias or other focal neurologic deficits. Heme: Denies any bleeding or bruising Skin: Denies rashes Psychiatric: No complaints voiced related to uncontrolled depression or anxiety but she is losing her ability to manage her medications and live independently as per HPI. Endocrine: Patient likely has polyuria and polydipsia. The rest of the 14 point ROS was negative except for positives in HPI. Vital Signs Vital Signs Vital Signs: 12/02/23 19:55 12/02/23 20:17 12/02/23 20:30 Temperature 97.7 F L Temperature Source Temporal Pulse Rate 95 82 79 Respiratory Rate 17 18 16 Respiratory Effort Respiratory Pattern Blood Pressure 118/61 118/62 Blood Pressure Mean 80 79 Pulse Ox 97 97 97 Oxygen Delivery Method Room Air 12/02/23 20:45 12/02/23 21:00 12/02/23 21:15 Temperature Temperature Source Pulse Rate 75 77 76 Respiratory Rate 17 20 H 17 Respiratory Effort Respiratory Pattern Blood Pressure 117/67 133/68 H 116/60 Blood Pressure Mean 82 84 77 Pulse Ox 97 98 98 Oxygen Delivery Method 12/02/23 21:30 12/02/23 21:45 12/02/23 22:00 Temperature Temperature Source Pulse Rate 86 76 82 Respiratory Rate 17 16 18 Respiratory Effort Respiratory Pattern Blood Pressure 138/106 H 118/68 Blood Pressure Mean 117 82 Pulse Ox 97 98 99 Oxygen Delivery Method 12/02/23 22:13 12/02/23 22:14 12/02/23 22:15 Temperature Temperature Source Pulse Rate 82 Respiratory Rate 17 Respiratory Effort Normal Non-Labored Respiratory Pattern Normal Blood Pressure 118/68 123/62 H Blood Pressure Mean 84 81 Pulse Ox 98 Oxygen Delivery Method Room Air 12/02/23 22:15 12/02/23 22:30 12/02/23 22:45 Temperature Temperature Source Pulse Rate 74 91 Respiratory Rate 14 19 H 25 H Respiratory Effort Respiratory Pattern Blood Pressure 123/62 H 116/69 118/87 H Blood Pressure Mean 81 85 99 Pulse Ox 98 98 97 Oxygen Delivery Method 12/02/23 23:08 12/02/23 23:15 12/02/23 23:30 Temperature Temperature Source Pulse Rate 86 82 80 Respiratory Rate 13 21 H 15 Respiratory Effort Respiratory Pattern Blood Pressure 120/63 115/56 L 117/62 Blood Pressure Mean 75 73 78 Pulse Ox 99 97 98 Oxygen Delivery Method 12/02/23 23:45 12/03/23 00:00 Temperature Temperature Source Pulse Rate 83 Respiratory Rate 17 Respiratory Effort Respiratory Pattern Blood Pressure 122/60 H 114/57 L Blood Pressure Mean 79 74 Pulse Ox 97 Oxygen Delivery Method Weight Weight: 120 lb Body Mass Index (BMI) 24.2 Physical Exam Const alert, no apparent distress, average body habitus and healthy appearing General Appearance: cooperative Orientation / Consciousness: confused HEENT normocephalic, head/scalp atraumatic and hearing grossly normal bilaterally HEENT Narrative: Mucous membranes dry. Eyes PERRL and EOMs intact bilaterally Neck no lymphadenopathy and supple Resp normal respiratory effort, no retractions, no use of accessory muscles and clear to auscultation bilaterally Cardio regular rate and regular rhythm GI normal to inspection, nondistended, normoactive bowel sounds, soft to palpation, non-tender and non-distended Extremity normal to inspection, full ROM and no clubbing, cyanosis or edema Skin Skin Narrative: Patient has no evidence of jaundice, pallor or rash. Neuro CN's II-XII intact bilaterally, moves all extremities and no focal motor deficits Sensorium / Orientation: awake, alert, oriented to person and oriented to place Speech: speech normal Psych affect normal Results Medical Records Data Attestation: I reviewed the patient's medical records Lab / Micro Data Attestation: I reviewed the patient's lab results. 12/02/23 19:48 12/02/23 19:48 Labs: Laboratory Results - last 24 hr 12/02/23 19:48: WBC 5.3, RBC 3.70 L, Hgb 10.6 L, Hct 34.3 L, MCV 92.7, MCH 28.6, MCHC 30.9 L, RDW Std Deviation 49.8 H, RDW Coeff of Nicholas 14.6, Plt Count 175, MPV 12.1 H, Immature Gran % (Auto) 0.600, Neut % (Auto) 57.6, Lymph % (Auto) 29.5, [place] % (Auto) 7.2, Eos % (Auto) 4.2, Baso % (Auto) 0.9, Absolute Neuts (auto) 3.0, Absolute Lymphs (auto) 1.56, Nucleated RBC % 0, Sodium 131 L, Potassium 4.9, Chloride 98, Carbon Dioxide 25.0, Anion Gap 8, BUN 27 H, Creatinine 0.95, Estim Creat Clear Calc 33.93, Est GFR (MDRD) Af Amer 72, Est GFR (MDRD) Non-Af 60, BUN/Creatinine Ratio 28.3 H, Glucose 496 H*, Calcium 10.2 H 12/02/23 20:04: POC Glucose 499 H* 12/02/23 23:12: Urine Color Yellow, Urine Clarity Clear, Urine pH 8.0, Ur Specific [place] 1.015, Urine Protein Negative, Urine Glucose (UA) 1000 H, Urine Ketones Negative, Urine Occult Blood 50 H, Urine Nitrite Negative, Urine Bilirubin Negative, Urine Urobilinogen 1 H, Ur Leukocyte Esterase Negative, Urine RBC 0 SEEN, Urine WBC 0 SEEN, Ur Squamous Epith Cells 0 SEEN, Amorphous Sediment 1+, Urine Bacteria 0 SEEN, Urine Mucus 0 SEEN 12/02/23 23:42: POC Glucose 341 H Imaging Radiology Impression Brain CT 12/02/23 21:37 IMPRESSION: Age-related changes of the brain. Electronically Signed: Rigoberto Alston DO at 22:46 EDT Reading Location ID and State: [facility] / [place] Tel [phone], Service support , Chest X-Ray 12/02/23 22:20 IMPRESSION: No radiographic evidence of acute cardiopulmonary disease. Hiatal hernia. Electronically Signed: Rigoberto Alston DO at 22:55 EDT , Assessment & Plan Assessment/Plan (1) Hyperglycemia: (2) Metabolic encephalopathy: (3) Uncontrolled type 2 diabetes mellitus with hyperglycemia: (4) Adult failure to thrive: (5) Chronic depression: PLAN: Plan 1. Severe hyperglycemia of 496 mg/dL present on admission consistent with DM-2; uncontrolled with hyperglycemia - Admit to general medical floor under observation status. Give Lantus 25 units subcu once plus sliding scale insulin. Check hemoglobin A1c to objectively evaluate suspected poor quality of diabetic control. Finally, we will consult clinical dietitian see this patient on rounds in a.m. to help enhance patient education with help appreciated in advance. 2. Metabolic encephalopathy due to #1 - Check TSH, B12, folate and JERED to evaluate for potentially reversible causes of confusion. Otherwise, resume supportive care and monitor for improvement. 3. Recent admission here from August 15, 2023 to August 16, 2023 for treatment of severe hyperglycemia of 681 mg/dL present on admission complicated by a UTI with patient chronically confused and struggling to live at home alone and unable to consistently take her diabetic medications complicating #1 & #2 - Noted. Patient should be strongly considered for SNF placement given her inability to manage her medications and with acute worsening of her chronic baseline confusion. 4. Admission here from August 09, 2023 to August 12, 2023 for treatment of adult [id number] - Noted. 5. Chronic depression adding to the pathology of #1 - #4 - Continue home regimen. 6. Hyperlipidemia - Resume statin. 7. Hypothyroidism - Continue Synthroid as previous. 8. SAMMY - Stable with hemoglobin of 10.6 g/dL present on admission. Resume oral iron supplementation. 9. History of renal calculi - Noted. 10. GERD - Stable. 11. History of cholecystectomy - Noted. 12. OA; with history of TKR - Noted. 13. DVT prophylaxis - Heparin 5,000 units sq BID. Total time: Approximately 75 minutes. Charges/Coding Visit Charges OBSV E&M: 27803 Observ/hosp same date L2
[2023-12-03] MEDS: Insulin Lispro 100 UNIT/ML INSULN.PEN 10 UNIT SC (01:17)
[2023-12-03 01:28] LABS: Alcohol, Blood (Medical)-Serum < 3.0 mg/dL
[2023-12-03] MEDS: KCL 20MEQ in 0.9% NS 20 MEQ/1,000 ML IV.SOLN. 60 MEQ IV ×2 (01:49→17:19)
[2023-12-03] MEDS: Insulin Glargine-YFGN 100 UNIT/ML Pen 25 UNIT SC ×2 (01:50→21:36)
[2023-12-03 02:10] LABS: Bedside Glucose 335 mg/dL (74-106)
[2023-12-03 02:12] LABS: Thyroid Stim Hormone (TSH) 2.93 uIU/mL (0.358-3.74)
[2023-12-03] MEDS: Insulin Lispro 100 UNIT/ML INSULN.PEN SC ×4 (05:55→21:37)
[2023-12-03 06:15] LABS: Bedside Glucose 319 mg/dL (74-106)
[2023-12-03 07:19] LABS: Absolute Lymphocyte Count 1.04 X10^3/uL (0.83-4.51); Absolute Neutrophil Count 1.8 X10^3/uL (2.0-7.7); Basophil# 0.03 X10^3/uL; Basophil% 0.9 % (0-1); Eosinophil# 0.16 X10^3/uL; Eosinophils% 4.8 % (0-5); Hemoglobin 9.3 g/dL (12.0-15.0); Lymphocyte # 1.04 X10^3/ul (0.83-4.51); Lymphocyte % 31.2 % (19-41); Mean Corpuscular Hgb 28.9 pg (27.0-32.0); Mean Corpuscular Volume 93.2 fL (81-99); Mean Platelet Vol. 11.8 fl (6.2-12.0); Monocyte# 0.29 X10^3/uL; Monocyte% 8.7 % (0-10); NRBC Flagged by Analyzer 0 % (0-5); Neutrophil % 54.1 % (47-70); Platelet Count 110 K/mm3 (150-450); RBC Distribution Width CV 14.6 % (11.6-14.6); RBC Distribution Width SD 49.7 fl (35.1-43.9); Red Blood Count 3.22 M/mm3 (4.2-5.4); White Blood Count 3.3 K/mm3 (4.4-11.0)
[2023-12-03] MEDS: Aspirin E.C. 81 MG Tablet PO (08:16)
[2023-12-03] MEDS: Heparin Injection (Vial) 5,000 UNIT/ML VIAL 5000 UNIT SC ×2 (08:17→21:37)
[2023-12-03] MEDS: Ferrous Gluconate 324 MG Tablet PO ×2 (08:17→21:38)
[2023-12-03] MEDS: Escitalopram Oxalate 10 MG Tablet PO (08:17)
[2023-12-03 08:30] LABS: Vitamin B12 338 pg/mL (211-911)
--- NOTE | 2023-12-03 08:30 | PCM.PN.HOSP ---
Reason for Visit Reason for Visit: Diagnoses Type 2 diabetes mellitus with hyperglycemia (12/03/23) Depression, unspecified (12/03/23) Metabolic encephalopathy (12/03/23) Adult failure to thrive (12/03/23) Hyperglycemia, unspecified (12/03/23) Subjective Subjective Feels well. States that she was never prescribed insulin on discharge. Objective Data Objective Data Vital Signs: Vital Signs Temp Pulse Resp BP Pulse Ox O2 Del Method 36.6 C 70 16 95/53 L 96 Room Air 12/03/23 08:07 12/03/23 08:07 12/03/23 08:07 12/03/23 08:07 12/03/23 08:07 12/03/23 08:08 Oxygen Delivery Method Room Air Weight: 62 kg Body Mass Index (BMI) 27.5 Intake & Output: Intake and Output for Last 24 Hours 12/01/23 12/02/23 12/03/23 23:59 23:59 23:59 Intake Total 1000 / 1000 Output Total 1600 / 1600 Balance 1000 / 1000 -1600 / -1600 Lab / Micro Data 12/03/23 06:39 12/03/23 06:39 Labs: Laboratory Results - last 24 hr 12/02/23 19:48: WBC 5.3, RBC 3.70 L, Hgb 10.6 L, Hct 34.3 L, MCV 92.7, MCH 28.6, MCHC 30.9 L, RDW Std Deviation 49.8 H, RDW Coeff of Nicholas 14.6, Plt Count 175, MPV 12.1 H, Immature Gran % (Auto) 0.600, Neut % (Auto) 57.6, Lymph % (Auto) 29.5, Lancaster % (Auto) 7.2, Eos % (Auto) 4.2, Baso % (Auto) 0.9, Absolute Neuts (auto) 3.0, Absolute Lymphs (auto) 1.56, Nucleated RBC % 0, Sodium 131 L, Potassium 4.9, Chloride 98, Carbon Dioxide 25.0, Anion Gap 8, BUN 27 H, Creatinine 0.95, Estim Creat Clear Calc 33.93, Est GFR (MDRD) Af Amer 72, Est GFR (MDRD) Non-Af 60, BUN/Creatinine Ratio 28.3 H, Glucose 496 H*, Hemoglobin A1c 14.0 H, Calcium 10.2 H, Folate 25.50, TSH 2.93 12/02/23 20:04: POC Glucose 499 H* 12/02/23 23:12: Urine Color Yellow, Urine Clarity Clear, Urine pH 8.0, Ur Specific Durham 1.015, Urine Protein Negative, Urine Glucose (UA) 1000 H, Urine Ketones Negative, Urine Occult Blood 50 H, Urine Nitrite Negative, Urine Bilirubin Negative, Urine Urobilinogen 1 H, Ur Leukocyte Esterase Negative, Urine RBC 0 SEEN, Urine WBC 0 SEEN, Ur Squamous Epith Cells 0 SEEN, Amorphous Sediment 1+, Urine Bacteria 0 SEEN, Urine Mucus 0 SEEN 12/02/23 23:42: POC Glucose 341 H 12/03/23 01:05: Ethyl Alcohol < 3.0 12/03/23 01:45: POC Glucose 335 H 12/03/23 05:53: POC Glucose 319 H 12/03/23 06:39: WBC 3.3 L, RBC 3.22 L, Hgb 9.3 L, Hct 30.0 L, MCV 93.2, MCH 28.9, MCHC 31.0 L, RDW Std Deviation 49.7 H, RDW Coeff of Nicholas 14.6, Plt Count 110 L, MPV 11.8, Immature Gran % (Auto) 0.300, Neut % (Auto) 54.1, Lymph % (Auto) 31.2, Lancaster % (Auto) 8.7, Eos % (Auto) 4.8, Baso % (Auto) 0.9, Absolute Neuts (auto) 1.8 L, Absolute Lymphs (auto) 1.04, Nucleated RBC % 0, Vitamin B12 338 Radiography Diagnostic Testing: Radiology Impression Brain CT 12/02/23 21:37 IMPRESSION: Age-related changes of the brain. Electronically Signed: Rigoberto Alston DO at 22:46 EDT , Chest X-Ray 12/02/23 22:20 IMPRESSION: No radiographic evidence of acute cardiopulmonary disease. Hiatal hernia. Electronically Signed: Rigoberto Alston DO at 22:55 EDT , Physical Exam Const alert and no apparent distress HEENT head/scalp atraumatic and moist oral mucous membranes Resp normal respiratory effort, no retractions and no use of accessory muscles Cardio regular rate, regular rhythm, S1 normal heart sound and S2 normal heart sound GI normal to inspection, nondistended, normoactive bowel sounds Extremity normal to inspection and no clubbing, cyanosis or edema Assessment & Plan Assessment/Plan (1) Hyperglycemia: (2) Metabolic encephalopathy: (3) Uncontrolled type 2 diabetes mellitus with hyperglycemia: (4) Adult failure to thrive: (5) Chronic depression: PLAN: Plan Uncontrolled DM2 admission glucose was 499, improved to 319. a1c 14 received 25 units of glargine at 0150 start glargine 25 units BID. Clearly oral hypoglycemics are ineffective. Was admitted for hyperglycemia earlier this year and was to take 45 units of glargine and SSI, but not on her admission MAR. She states that she was never prescribed insulin at home. That very well but may be the case but when I had seen her in July, she was discharged to care home facility with glargine 45 units daily and sliding scale insulin. This may have not been continued when she was discharged from the care home facility, however. Encephalopathy, metabolic 2/2 hyperglycemia Folate, B12, TSH WNL Dysphagia Speech therapy noted mild oropharyngeal dysphagia. And are recommending of modified barium swallow. That will be performed on the . Chronic conditions: depression: continue escitalopram HLP: continue atorvastatin. hypothyroidism: levothyroxine VTE prophylaxis: SQ heparin Disposition: Patient does not enter a care home facility. Plan is for home with or without home health services. Charges/Coding Visit Charges Inpatient E&M: 01220 Subs Hosp L2
[2023-12-03 08:47] LABS: Bedside Glucose 299 mg/dL (74-106)
[2023-12-03 09:38] LABS: AST(SGOT) 55 U/L (15-37); Alanine Aminotransfer ALT/SGPT 47 U/L (13-56); Albumin, Serum 3.1 g/dL (3.2-5.0); Alkaline Phosphatase 155 U/L (45-117); Anion Gap 5 (5-15); BUN 18 mg/dL (7-18); BUN/Creat Ratio 25.8 RATIO (10-20); Calcium,Total 9.1 mg/dL (8.5-10.1); Chloride 106 mmol/L (98-107); EST Glomerular Filtration Rate 86 mL/min (>60); Est Glom Filt Rate - Afr Amer 104 mL/min (>60); Estimated Creatinine Clearance 46.13 ml/min; Globulin 3.1 g/dL (2.2-4.2); Glucose 324 mg/dL (74-106); Magnesium 1.9 mg/dL (1.6-2.6); Phosphorus 2.6 mg/dL (2.5-4.9); Potassium 3.8 mmol/L (3.5-5.1); Protein, Total 6.2 g/dL (6.4-8.2); Sodium Level 136 mmol/L (136-145)
--- NOTE | 2023-12-03 10:40 | CASEMGMT ---
Addendum entered by Anjana Anton 12/03/23 12:09: Per speech therapy, speech therapy is recommended at next level of care and SW aware. Pt to have swallow study tomorrow. SW aware of RN CM findings. RN CM provided medical alert information to pt. Original Note: RN CM Assessment: Face to Face with pt for initial transition planning/care coordination assessment. RN HILARIA introduced self and role at [facility], pt voices understanding and consents to assessment. Pt lying in bed in no distress. Pt is A&O x3 and answers all questions appropriately at this time. Care providers, pharmacy, and demographics verified/updated. Admitting Dx: Severe Hyperglycemia, Metabolic encephalopathy PCP: Fernandez Specialists: Denies Preferred Pharmacy: [facility] at [place] if able to go home. Otherwise [facility]. Insurance: [facility] Medicare Prescription Benefit: yes Finanial: Pt reports limited income, states has never looked into seeing if she qualifies for assistance and does not know how to find out. LNOK: Salomón - son lives in [place], Sam- son lives in [place] Living Arrangements: Pt lives alone in a 2 story home with 3 steps to enter with railing. Denies difficulty with stairs. FFSU but does have shower in basement which is more accessible to use. Pt reports able to bathe and dress herself. Pt states she is not able to cook or get groceries for herself so she walks to [employer] and [employer] to get food. Transportation: Pt does not drive, has used a taxi for transportation but states it is too expensive. Pt states she walks to doctor's apt and to get food. DME: cane, shower stool, grab bars, glucometer and supplies. Pt reports has a FWW at home, but has not used it yet d/t she does not like the wheels on it and feels she would be safer with one that does not have wheels. HHC/SNF: [facility], [facility]. Per [facility] at [facility] they are not able to accept pt back. Pt states she falls a lot at home and her house has a lot of clutter. States not sure why I fall all the time, it just happens. Pt would like information about medical alert options, RN HILARIA will provide list of providers. Pt states she has glucometer but does not check BS as often as she should, she stated she does know how to administer insulin if ordered. Pt stated if BS need to be done frequently might as well shoot me. Pt states she has several family members that have DM and is aware of how to care for self but it is very difficult to live with and manage. Pt stated [employer] delivered a glucose device but not sure what it is or who ordered it and can't figure out how to use it. Discussed possible DC options with SNF VS HHC. Pt voices concern about cat in the home that would need looked after, pt has the only rob with her at hospital and does not have any family or friends that are able to assist. Pt stated ok to call and speak with son, Salomón, about hospital stay and discuss DC planning with him. CM or SW to follow. Advised pt to ask CM if any further question/concerns/needs arise, voices understanding. Pt Goal: TBD Plan: TBD, pending course of treatment and progress with therapy. Therapy eval pending. Avis ORTEGA CM
[2023-12-03 11:58] LABS: Bedside Glucose 345 mg/dL (74-106)
--- NOTE | 2023-12-03 14:24 | CASEMGMT ---
Social Work- SW called TREVA Horton/JOYCE, to discuss involvement with pt. LESLI left a voicemail. IRA Salcedo
--- NOTE | 2023-12-03 15:41 | CASEMGMT ---
Met with patient to complete POWELL form. POWELL form explained to patient who voiced understanding and signed form. Original form placed in pt?s chart and copy provided to patient. Katheryn He, Discharge Planning Asst
--- NOTE | 2023-12-03 15:49 | CASEMGMT ---
Addendum entered by Amy Guzman 12/03/23 16:35: Social Work- Pt completed HCPOA naming sons, Sam Lott and Salomón Lott, as agents. A copy to be placed on chart and provided to pt. IRA Salcedo Addendum entered by Amy Guzman 12/03/23 16:10: Social Work- SW called pt son, Salomón, who refused to chat d/t being at work. Salomón states that he will call tomorrow. IRA Salcedo Original Note: SW met with pt to complete SDOH. Pt states that she is interested in home services, but is unable to 'figure out how to connect with them. Pt states that she has been receiving [employer], but feeds them to the [employer] and [email or web address]. Pt states that she eats pbj or soup at home or goes to eat at [employer] or [employer] because she can walk there and enjoys eating outside the home. Pt states that she grocery shops at [employer] because it is in walking distance. When SW discussed self care, pt states that she makes a mess wherever she sleeps, as she is incontinent and cannot feel when she needs to urinate. Pt states that she places shower curtains on surfaces, but they still get ruined. Pt states that she doesn't monitor diabetes, as it is complicated and not easy. Pt does not eat a special diet, but states that she doesn't eat a lot of sweets. Pt states that she is increasingly SOB and finds it harder to do activities that she previously could. Pt states that son, Sam, pays her bills. Pt states that her income is $2200/month. Pt does still have a mortgage. Pt states that she has someone mow her yard. Pt states that she is agreeable to selling her home, but she needs to clean it out and sort through things. Pt states that her sons may help her if she asked. Pt states that she feels her sons are angry at her for her recent hospitalization and mismanagement of her diabetes. SW assisted pt with processing feelings associated with this. Pt states that she has a cat that she is worried about. Pt states that the cat had food yesterday and can drink out of the toilet. Pt is concerned about care of the cat if she goes somewhere. Pt stated originally that she was leaving the hospital tomorrow irregardless of medical status. Pt later stated that she is willing to go to a SNF for rehab. [facility] by [facility]. SW completed referral to [facility] and advised DCA of referral to [facility]. LESLI called TREVA Horton, to collaborate and coordinate care. Clifford states that she has had no involvement with pt, as pt sone was to complete guardianship and did not follow through. Pt expressed interest in POA papers. IRA Salcedo
--- NOTE | 2023-12-03 16:03 | CASEMGMT ---
Addendum entered by Katheryn He 12/04/23 11:57: Patient has chosen another provider. [facility] updated and asked to cancel referral. Katheryn He DC Planning Asst. Addendum entered by Katheryn He 12/03/23 16:28: [facility] accepted. updated. Katheryn He DC Planning Asst. Original Note: Discharge Planning Referral sent via [facility] to [facility] [place]. Katheryn He DC Planning Asst.
[2023-12-03 16:56] LABS: Bedside Glucose 281 mg/dL (74-106)
[2023-12-03] MEDS: Atorvastatin Calcium 40 MG Tablet PO (21:43)
[2023-12-03 22:11] LABS: Bedside Glucose 268 mg/dL (74-106)
[2023-12-04 03:30] VITALS: BP 112/65; PULSE 73; RESP 18; TEMP 36.6; O2SAT 98
[2023-12-04 04:05] VITALS: BMI 26.9
[2023-12-04] MEDS: Insulin Lispro 100 UNIT/ML INSULN.PEN SC ×3 (06:57→21:11)
[2023-12-04] MEDS: Levothyroxine 25 MCG TABLET PO (06:58)
[2023-12-04] MEDS: Levothyroxine 50 MCG Tablet PO (07:02)
[2023-12-04 07:18] LABS: Bedside Glucose 184 mg/dL (74-106)
--- NOTE | 2023-12-04 07:19 | PCM.PN.HOSP ---
Reason for Visit Reason for Visit: Diagnoses Type 2 diabetes mellitus with hyperglycemia (12/03/23) Depression, unspecified (12/03/23) Metabolic encephalopathy (12/03/23) Adult failure to thrive (12/03/23) Hyperglycemia, unspecified (12/03/23) Subjective Subjective Now agreeable to SNF. Objective Data Objective Data Vital Signs: Vital Signs Temp Pulse Resp BP Pulse Ox O2 Del Method 36.6 C 73 18 112/65 98 Room Air 12/04/23 03:30 12/04/23 03:30 12/04/23 03:30 12/04/23 03:30 12/04/23 03:30 12/04/23 03:30 Oxygen Delivery Method Room Air Weight: 60.6 kg Body Mass Index (BMI) 26.9 Intake & Output: Intake and Output for Last 24 Hours 12/02/23 12/03/23 12/04/23 23:59 23:59 23:59 Intake Total 1000 / 1000 1530 / 1530 Output Total 2750 / 2750 Balance 1000 / 1000 -1220 / -1220 Lab / Micro Data 12/03/23 06:39 12/03/23 06:39 Labs: Laboratory Results - last 24 hr 12/03/23 06:39: WBC 3.3 L, RBC 3.22 L, Hgb 9.3 L, Hct 30.0 L, MCV 93.2, MCH 28.9, MCHC 31.0 L, RDW Std Deviation 49.7 H, RDW Coeff of Nicholas 14.6, Plt Count 110 L, MPV 11.8, Immature Gran % (Auto) 0.300, Neut % (Auto) 54.1, Lymph % (Auto) 31.2, [place]pkins % (Auto) 8.7, Eos % (Auto) 4.8, Baso % (Auto) 0.9, Absolute Neuts (auto) 1.8 L, Absolute Lymphs (auto) 1.04, Nucleated RBC % 0, Sodium 136, Potassium 3.8, Chloride 106, Carbon Dioxide 25.0, Anion Gap 5, BUN 18, Creatinine 0.70, Estim Creat Clear Calc 46.13, Est GFR (MDRD) Af Amer 104, Est GFR (MDRD) Non-Af 86, BUN/Creatinine Ratio 25.8 H, Glucose 324 H, Calcium 9.1, Phosphorus 2.6, Magnesium 1.9, Total Bilirubin 0.50, AST 55 H, ALT 47, Alkaline Phosphatase 155 H, Total Protein 6.2 L, Albumin 3.1 L, Globulin 3.1, Albumin/Globulin Ratio 1.0, Vitamin B12 338 12/03/23 08:15: POC Glucose 299 H 12/03/23 11:33: POC Glucose 345 H 12/03/23 16:35: POC Glucose 281 H 12/03/23 21:34: POC Glucose 268 H 12/04/23 06:56: POC Glucose 184 H Physical Exam Const alert and no apparent distress HEENT head/scalp atraumatic and moist oral mucous membranes Resp normal respiratory effort and no retractions Neuro Sensorium / Orientation: awake and alert Psych affect normal Assessment & Plan Assessment/Plan (1) Hyperglycemia: (2) Metabolic encephalopathy: (3) Uncontrolled type 2 diabetes mellitus with hyperglycemia: (4) Adult failure to thrive: (5) Chronic depression: PLAN: Plan Uncontrolled DM2 admission glucose was 499, improved to 319. a1c 14 received 25 units of glargine at 0150 start glargine 25 units BID. Clearly oral hypoglycemics are ineffective. Was admitted for hyperglycemia earlier this year and was to take 45 units of glargine and SSI, but not on her admission MAR. She states that she was never prescribed insulin at home. That very well but may be the case but when I had seen her in July, [facility] gl[facility]ine 45 units daily and sliding scale insulin. This may have not been continued when she was discharged from the prison facility, however. Encephalopathy, metabolic 2/2 hyperglycemia Folate, B12, TSH WNL Dysphagia Speech therapy noted mild oropharyngeal dysphagia. And are recommending of modified barium swallow. That will be performed on the . Chronic conditions: depression: continue escitalopram HLP: continue atorvastatin. hypothyroidism: levothyroxine VTE prophylaxis: SQ heparin Disposition: Now interested in SNF. Awaiting on authorization. Charges/Coding Visit Charges Inpatient E&M: 61501 [facility] Hosp L1
[2023-12-04 08:13] VITALS: O2SAT 97
--- NOTE | 2023-12-04 08:33 | CASEMGMT ---
Social Work- LESLI spoke with pt son, Salomón, who states that he and his brother have been working on moving pt to [place] with him. Salomón states there have been things in the works, but things have come up; it's complicated, however, declined to elaborate on what steps have been taken. Salomón states that brother, Sam, does handle finances, but did not know his contact information with immediate recall to be able to provide it. Salomón provided an email of [email or web address] to communicate about Sam's information at. Salomón states that he has dealt with numerous people and feels that nothing gets done in regards to mom's situation. SW provided education on the collaboration and coordination of care that has already taken place and offered to provide any information on community resources to aide Salomón in perpetuating pt's move; Salomón stated that prior pt was not agreeable, but she is again now. SW provided encouragement that pt's living arrangements be settled in the short-term, before pt confusion and cognitive function declines additionally. LESLI emailed Salomón to obtain information for Sam. IRA Salcedo
[2023-12-04 08:38] VITALS: BP 101/63; PULSE 73; RESP 18; TEMP 36.9; O2SAT 99
--- NOTE | 2023-12-04 09:53 | NURSING ---
pt returned to unit from [facility]/radiology
--- NOTE | 2023-12-04 10:49 | SP.MBSS_ITS ---
Modified Barium Swallow Patient Information Study Date: 12/04/23 Study Time: 13:00 Direct Billable Minutes: 101 Total Minutes procedure & reportin Diagnosis: Adult failure to thrive R62.7 Referring Physician: Carl Couch Reason for Referral: Objectively assess swallow function, assess risk for aspiration, and determine recommendations for least restrictive diet textures and compensatory strategies to improve safety of swallow. Medical History: PMH: HLD, hypothyroidism, DM-2; uncontrolled with hyperglycemia, SAMMY, history of renal calculi, chronic depression, GERD, history of cholecystectomy, OA; with history of TKR, admission here from 08/09/23-08/12/23 for treatment of adult [id number] and another recent admission here from 08/15/23-08/16/23 for treatment of severe hyperglycemia of 681 mg/dL complicated by a UTI with patient chronically confused and struggling to live at home alone and unable to c onsistently take her diabetic medications. Pt presented to [facility] ED 12/03/23 with confusion and elevated blood glucose. According to the records Ms. Russell was crossing the street when a passerby noted she was confused and not acting right so they subsequently activated EMS. She went on to report that her children wanted to sell her home and to move her they are with 1 living in [place] and 1 living in [place] as she is becoming more chronically confused and they are justifiable worried about her safety. Pt admitted for adult FTT amongst other comorbidities including encephalopathy and Type [address] diabetes mellitus [address] consulted for swallowing difficulty. Following BSE, PUNCH CARD OPERATOR recommended Soft and bite size textures / thin liquids with direct supervision and MBSS 12/04/23 to assess concerns for pharyngeal vs. esophageal retention due to patient reporting sensation of food getting caught in her throat, choking, and vomiting at home. Current Diet Ordered: Soft and bite size textures / Thin liquids Dentition: Upper Dentures and Lower Dentures Mental Status: Impaired (Metabolic encephalopathy, repeating comments and questions during evaluation) Respiratory Status: Oxygenating on Room Air Penetration-Aspiration Scale Penetration-Aspiration Scale: OBJECTIVE ASSESSMENT OF SWALLOW FUNCTION (QUANTITATIVE ? PER TRIAL): PENETRATION / ASPIRATION SCALE (MITCHELL): 1 = does not enter airway 2 = enters airway/above vocal folds/ejected 3 = enters airway/above vocal folds/not ejected 4 = enters airway/contacts vocal folds/ejected 5 = enters airway/contacts vocal folds/not ejected 6 = enters airway/below vocal folds/ejected 7 = enters airway/below vocal folds/not ejected despite effort 8 = enters airway/below vocal folds/no effort VIDEOFLOROSCOPIC SCALE SCORE (MITCHELL): Grade I = aspiration of material that has penetrated into the laryngeal vestibule, intact cough reflex Grade II = aspiration < 10 % of the bolus, intact cough reflex Grade III = aspiration of < 10 % of the bolus, reduced cough reflex or aspiration of > 10 % of the bolus, intact cough reflex Grade IV = aspiration of > 10 % of the bolus, reduced cough reflex Penetration-Aspiration Scale Score Thin Liquid via teaspoon: Result: 1= does not enter airway Thin Liquid via large single sip: cup: Result: 2= enter airway/above vocal folds/ejected Comment: Esophageal screen - Complete clearance. [place] Thick Liquid via large single sip: cup: Result: 2= enter airway/above vocal folds/ejected Pudding via teaspoon: Result: 1= does not enter airway Comment: Esophageal Screen - Retention of pudding in the mid esophagus, min retention in the lower esophagus. Thin Liquid via sequential sips:straw: Result: 2= enter airway/above vocal folds/ejected Comment: Esophageal screen - improved clearance of pudding with only mild retention of barium remaining after liquid wash. 1/2 Cookie: Result: 1= does not enter airway Comment: Esophageal screen - Retention of cookie throughout the esophagus, no clearance through the LES. Thin Liquid via sequential sips: cup: Result: 2= enter airway/above vocal folds/ejected Comment: Esophageal screen - ~1/2 of the cookie appeared to clear through the LES with thin liquid wash. Oral Phase Labial Seal: Interlabial escape, no progression to anterior lip Tongue Control During Bolus Hold: Posterior escape of less than half of bolus Bolus Preparation/Mastication: Slow prolonged chewing/mashing with complete rec ollection Bolus Transport/Lingual Motion: Slowed tongue motion Oral Residue: Residue collection on oral structures Pharyngeal Phase Initiation of Pharyngeal Swallow: Bolus head in pyriforms Soft Palate Elevation: No bolus between soft palate and pharyngeal wall Laryngeal Elevation: Comp. Superior move thyroid cart w/comp. apprx arytenoid cart-epig pet Anterior Hyoid Excursion: Partial anterior movement (poor) Epiglottic Movement: Partial inversion (inconsistent epiglottic inversion) Laryngeal Vestibule Closure at Height of Swallow: Incomplete; narrow column of air/contrast in laryngeal vestibule Pharyngeal Stripping Wave: Present - diminished Pharyngoesophageal Segment Opening: Complete distension and complete duration; no obstruction of flow Tongue Base Retraction: Narrow column of contrast between tongue base & post. pharyngeal wall Pharyngeal Residue: Collection of residue within or on pharyngeal structures Esophageal Phase Esophageal Clearance: Esophageal retention w/ retrograde flow below pharyngoesophageal seg. Diagnosis/Impression Diagnosis: Mild oropharyngeal dysphagia R13.12; Esophageal dysphagia R13.14 Impression: The oral phase is primarily marked by... -Decreased bolus control with <1/2 of the bolus spilling posteriorly to the pyriforms prior to swallow onset observed with large, sequential sips of thin liquids especially. -Slowed tongue motion for A-P transport -Trace-mild oral residue. -Slowed, but complete mastication. The pharyngeal phase is primarily marked by... -Poor anterior hyoid excursion and inconsistent epiglottic inversion; however, the patient demonstrated good laryngeal elevation and airway closure during the evaluation. -Mildly decreased tongue base retraction and pharyngeal stripping wave with large, sequential sips of liquids with collection of residue in the pyriforms on the final trial. Pt sensed no retention. PUNCH CARD OPERATOR cued double swallow to clear. -Trace laryngeal penetration of liquids with full ejection. No aspiration observed during the swallow. The esophageal phase is primarily marked by... -Esophageal retention of pudding in mid esophagus with improved clearance when provided thin liquid wash. -Esophageal retention of cookie in mid esophagus with somewhat improved clearance when provided thin liquid wash. Pt is at risk for regurgitation of foods and reflux aspiration. Recommendations Diet: Mechanical Soft Textures (Soft and bite size textures - IDDSI Level 6) and Thin Liquids Comment: If sensation of retention, reflux, or regurgitation despite use of strategies, STOP food/drink and resume once sensation clears. Compensatory Strategies: Small Bites, Small Sips, Multiple Swallows (large sips of thin liquids), Alternate bites/solids and sips/liquids (1-2 sips after every bite), Sitting upright and Remain sitting upright for 30 minutes after PO intake Supervision: 1:1 Close Supervision Recommend Repeat Modified Barium Swallow: No Need for Skilled Speech Therapy Services: Yes Comment: -Train the patient in use of strategies to decrease risk for aspiration and reflux aspiration. -Ongoing assessment of diet tolerance of recommended textures. -Train the patient in oropharyngeal exercise program to improve bolus control, anterior hyoid excursion, tongue base retraction, and pharyngeal contraction (lingual resistance, effortful, Guillermina, CTAR). Recommended Referrals: GI Consult Education Completed: 1. Described result of evaluation., 2. Pt understands evaluation & agrees with goals and treatment plan. and 7. Pt requires further education on strategies & risks. Status Active ST Patient: Active Contact Information [facility] Speech Therapy:: Martina Pat M.A. CCC-PUNCH CARD OPERATOR? Speech-Language Pathologist?? [facility] [address]?? [place] [address]?? [email or web address]?? [phone]
[2023-12-04] MEDS: Ferrous Gluconate 324 MG Tablet PO ×2 (11:22→21:11)
[2023-12-04] MEDS: Aspirin E.C. 81 MG Tablet PO (11:22)
[2023-12-04] MEDS: Heparin Injection (Vial) 5,000 UNIT/ML VIAL 5000 UNIT SC ×2 (11:23→21:11)
[2023-12-04] MEDS: Insulin Glargine-YFGN 100 UNIT/ML Pen 25 UNIT SC ×2 (11:23→21:12)
[2023-12-04] MEDS: Escitalopram Oxalate 10 MG Tablet PO (11:24)
--- NOTE | 2023-12-04 11:35 | NURSING ---
assisted pt w/ ordering lunch
[2023-12-04 11:43] LABS: Bedside Glucose 257 mg/dL (74-106)
--- NOTE | 2023-12-04 11:52 | CASEMGMT ---
Social Work- SW met with pt to advise that [facility] and [facility] both accepted pt. Pt states that she prefers to stay at [facility] and transfer to [facility]. Pt states that she knows she falls all the time and states daily that people stop to help her when she is out walking. PT states that she feels awful and doesn't know why she feels so bad. Pt admits that she does not check her blood sugars at home or use insulin. SW provided education on importance of following diabetic protocols set by physician. Pt states that she knows her house is a mess and would like help cleaning it, but admits that when her sons helped her clean it prior, she went through the garbage to pull items out. Pt states that she sleeps on her couch and has a walk-in shower in the basement. She does have use of her kitchen, but states that she does not use upstairs/much of her house due to clutter. Pt states that she is interested in a [facility] referral for home services. Plan: [facility] at d/c; referral for [facility]ORT IRA Salcedo
--- NOTE | 2023-12-04 14:30 | CASEMGMT ---
Social Work- Referral completed to [facility]. IRA Salcedo
--- NOTE | 2023-12-04 14:51 | CASEMGMT ---
Social Work- SW spoke with pt about HCPOA and Living Will. PT states that she does not have either document currently, but is interested in completing. SW began document with pt; awaiting an address to complete. IRA Salcedo
[2023-12-04 16:00] VITALS: BP 110/66; PULSE 77; RESP 18; TEMP 37.1; O2SAT 94
[2023-12-04 17:23] LABS: Bedside Glucose 270 mg/dL (74-106)
[2023-12-04 20:45] VITALS: BP 125/57; PULSE 76; RESP 15; TEMP 36.6; O2SAT 100
[2023-12-04] MEDS: Atorvastatin Calcium 40 MG Tablet PO (21:11)
[2023-12-04] MEDS: MELATONIN 3 MG TABLET PO (21:17)
[2023-12-04 21:59] LABS: Bedside Glucose 329 mg/dL (74-106)
[2023-12-05 03:00] VITALS: BP 105/61; PULSE 79; RESP 16; TEMP 36.6; O2SAT 99
[2023-12-05] MEDS: Levothyroxine 50 MCG Tablet PO (06:33)
[2023-12-05] MEDS: Insulin Lispro 100 UNIT/ML INSULN.PEN SC ×4 (06:34→21:20)
[2023-12-05 07:17] VITALS: O2SAT 94
[2023-12-05] MEDS: Heparin Injection (Vial) 5,000 UNIT/ML VIAL 5000 UNIT SC ×2 (07:45→21:19)
[2023-12-05] MEDS: Aspirin E.C. 81 MG Tablet PO (07:45)
[2023-12-05] MEDS: Ferrous Gluconate 324 MG Tablet PO ×2 (07:45→21:19)
[2023-12-05] MEDS: Escitalopram Oxalate 10 MG Tablet PO (07:46)
[2023-12-05] MEDS: Insulin Glargine-YFGN 100 UNIT/ML Pen 25 UNIT SC (07:46)
[2023-12-05 08:44] VITALS: BP 107/61; PULSE 69; RESP 16; TEMP 36.4; O2SAT 99
[2023-12-05] MEDS: Menthol/Lanolin/Calamine/Znox 113 GM Tube 1 APPLIC TOPICAL ×2 (09:43→21:20)
--- NOTE | 2023-12-05 09:51 | PN.HOSP_ITS ---
Reason for Visit Reason for Visit: Diagnoses Type 2 diabetes mellitus with hyperglycemia (12/03/23) Depression, unspecified (12/03/23) Metabolic encephalopathy (12/03/23) Adult failure to thrive (12/03/23) Hyperglycemia, unspecified (12/03/23) Subjective Subjective Feeling well. No new complaints. Objective Data Objective Data Vital Signs: Vital Signs Temp Pulse Resp BP Pulse Ox O2 Del Method 36.4 C L 69 16 107/61 99 Room Air 12/05/23 08:44 12/05/23 08:44 12/05/23 08:44 12/05/23 08:44 12/05/23 08:44 12/05/23 08:44 Oxygen Delivery Method Room Air Weight: 60.6 kg Body Mass Index (BMI) 26.9 Intake & Output: Intake and Output for Last 24 Hours 12/03/23 12/04/23 12/05/23 23:59 23:59 23:59 Intake Total 1530 / 1530 1900 / 1900 240 / 240 Output Total 2750 / 2750 850 / 850 700 / 700 Balance -1220 / -1220 1050 / 1050 -460 / -460 Lab / Micro Data 12/03/23 06:39 12/03/23 06:39 Labs: Laboratory Results - last 24 hr 12/04/23 11:26: POC Glucose 257 H 12/04/23 17:06: POC Glucose 270 H 12/04/23 21:10: POC Glucose 329 H Physical Exam Const alert and no apparent distress HEENT head/scalp atraumatic and moist oral mucous membranes Resp normal respiratory effort, no retractions, no use of accessory muscles and clear to auscultation bilaterally Cardio regular rate, regular rhythm, S1 normal heart sound and S2 normal heart sound GI normal to inspection, nondistended, normoactive bowel sounds, soft to palpation, non-tender and non-distended Extremity normal to inspection and full ROM Neuro Sensorium / Orientation: awake and alert Assessment & Plan Assessment/Plan (1) Hyperglycemia: (2) Metabolic encephalopathy: (3) Uncontrolled type 2 diabetes mellitus with hyperglycemia: (4) Adult failure to thrive: (5) Chronic depression: PLAN: Plan Uncontrolled DM2 * admission glucose was 499, improved but still high, increase glargine to 30 BID. * a1c 14 * She states that she was never prescribed insulin at home. That very well but may be the case but when I had seen her in July, she was discharged to shelter facility with glargine 45 units daily and sliding scale insulin. This may have not been continued when she was discharged from the shelter facility, however. Encephalopathy, metabolic * 2/2 hyperglycemia * Folate, B12, TSH WNL Dysphagia * Mild oropharyngeal dysphagia and esophageal dysphagia * MBS: noted esophageal retention. Pt at risk for regurgitation of foods and reflux aspiration. * ST recommending GI eval. I discussed with ST. GI eval will be as outpt at this time. * Diet: mechanical soft textures and thin liquids. Chronic conditions: * depression: continue escitalopram * HLP: continue atorvastatin. * hypothyroidism: levothyroxine VTE prophylaxis: SQ heparin Disposition: Now interested in SNF. Awaiting on authorization. Charges/Coding Visit Charges Inpatient E&M: 58489 Subs Hosp L2
--- NOTE | 2023-12-05 10:58 | CASEMGMT ---
Social Work- [facility] called Salomón, pt son, to update on discharge planning. Salomón states that he has a time set up Friday to view facilities in his area and would prefer that is mom is declined for rehab that she go to a facility so that she can be discharged from one facility to another. Salomón asked [facility] to email information, which LESLI did. IRA Salcedo
[2023-12-05] MEDS: Insulin Glargine-YFGN 100 UNIT/ML Pen 30 UNIT SC ×2 (11:02→21:20)
[2023-12-05 11:16] VITALS: BP 97/48; PULSE 72; RESP 16; TEMP 36.6; O2SAT 99
[2023-12-05 11:22] LABS: Bedside Glucose 371 mg/dL (74-106)
--- NOTE | 2023-12-05 12:00 | CASEMGMT ---
Social Work- SW met with pt to discuss possible denial by insurance; pt agreeable to going to a facility under [facility] medicaid if she is denied. IRA Salcedo
--- NOTE | 2023-12-05 12:32 | CASEMGMT ---
Social Work- SW completed referral to [facility]. IRA Salcedo
[2023-12-05 14:45] VITALS: BP 103/57; PULSE 72; RESP 16; TEMP 36.8; O2SAT 96
--- NOTE | 2023-12-05 16:11 | CASEMGMT ---
Social Work SW spoke with Emperatriz in TCU. Precert has not yet been obtained. Green sheet placed on pt chart to facility a weekend discharge in the event precert is obtained. Plan: TCU, pending precert IRA Tellez
[2023-12-05 16:15] LABS: Bedside Glucose 323 mg/dL (74-106)
[2023-12-05 16:26] LABS: Bedside Glucose 302 mg/dL (74-106)
[2023-12-05 21:17] VITALS: BP 120/70; PULSE 75; RESP 16; TEMP 36.7; O2SAT 99
[2023-12-05] MEDS: Atorvastatin Calcium 40 MG Tablet PO (21:19)
[2023-12-05 23:17] LABS: Bedside Glucose 328 mg/dL (74-106)
[2023-12-06 03:17] VITALS: BP 98/55; PULSE 69; RESP 14; TEMP 36.2; O2SAT 99
[2023-12-06 04:09] VITALS: BMI 26.4
[2023-12-06] MEDS: Levothyroxine 50 MCG Tablet PO (06:23)
[2023-12-06 07:07] LABS: Bedside Glucose 148 mg/dL (74-106)
[2023-12-06] MEDS: Menthol/Lanolin/Calamine/Znox 113 GM Tube 1 APPLIC TOPICAL (08:34)
[2023-12-06] MEDS: Aspirin E.C. 81 MG Tablet PO (08:34)
[2023-12-06] MEDS: Ferrous Gluconate 324 MG Tablet PO (08:34)
[2023-12-06] MEDS: Heparin Injection (Vial) 5,000 UNIT/ML VIAL 5000 UNIT SC (08:35)
[2023-12-06] MEDS: Insulin Glargine-YFGN 100 UNIT/ML Pen 30 UNIT SC (08:35)
[2023-12-06] MEDS: Escitalopram Oxalate 10 MG Tablet PO (08:36)
[2023-12-06 08:44] VITALS: BP 99/61; PULSE 76; RESP 18; TEMP 36.7; O2SAT 95
--- NOTE | 2023-12-06 08:57 | TREXTCAR_ITS ---
Diet Diet Order/Speech Therapy: 12/03/23 09:39 Diet: Carbohydrate Controlled Food consistency:: Soft & Bite Sized Liquid Consistency:: Regular/Thin Dietary Modifications:: Cardiac / Heart Healthy Type of Dietary Supplement:: Glucerna Shake Is pt able to select menu?: Yes Diet Comments: Supervision at meals, 1-2 sips after every bite. 240mL Van Glucerna at L. Routine Orders/Code Status Code Status: Full Code Therapies Weight Bearing: Full weight bearing Physical Therapy: Eval and Treat Occupational Therapy: Eval and Treat Problem/Diagnosis (1) Hyperglycemia: Status: Acute Code(s): R73.9 - Hyperglycemia, unspecified (2) Metabolic encephalopathy: Status: Acute Code(s): G93.41 - Metabolic encephalopathy (3) Uncontrolled type 2 diabetes mellitus with hyperglycemia: Status: Acute Code(s): E11.65 - Type 2 diabetes mellitus with hyperglycemia (4) Adult failure to thrive: Status: Acute Code(s): R62.7 - Adult failure to thrive (5) Chronic depression: Status: Chronic Code(s): F32.A - Depression, unspecified Plan Uncontrolled DM2 * admission glucose was 499, improved but still high, increase glargine to 30 BID. * a1c 14 * She states that she was never prescribed insulin at home. That very well but may be the case, but when I had seen her in July, she was discharged to detention facility with glargine 45 units daily and sliding scale insulin. This may have not been continued when she was discharged from the detention facility, however. Encephalopathy, metabolic * resolved 2/2 hyperglycemia * Folate, B12, TSH WNL Dysphagia * Mild oropharyngeal dysphagia and esophageal dysphagia * MBS: noted esophageal retention. Pt at risk for regurgitation of foods and reflux aspiration. * ST recommending GI eval. I discussed with ST. GI eval will be as outpt at this time. * Diet: mechanical soft textures and thin liquids. Chronic conditions: * depression: continue escitalopram * HLP: continue atorvastatin. * hypothyroidism: levothyroxine VTE prophylaxis: SQ heparin Disposition: Now interested in SNF. Insurance authorization obtained in the evening on the seventh. Patient be discharged today to TCU. Allergies/Procedures Done in Hospital Allergies venlafaxine HCl (From Effexor) Allergy (Verified 08/09/23 11:14) Rash CHEST BROKE OUT, GOT REAL DIZZY. meclizine Adverse Reaction (Verified 08/09/23 11:14) Other PT BECAME EXTREMELY FATIGUED & WAS UNABLE TO WALK AFTER TAKING 12.5MG OF MECLIZINE. Type of Care/Length of Stay Estimated LOS: Convalescent Care Less Than 30 days Type of Care Needed: Skilled Rehab Potential: Fair Prognosis: Fair Additional Orders/Day of Discharge Day of Discharge: 12/06/23 Dietary and Speech Recommendations Dietitian Recommendations/Changes: Continue current diet order and texture per WASHER CARCASS recommendations. Order Glucerna once daily to provide additional 220 kcal, 10 g protein per serving. Discharge Plan Admission Admit Date/Time: 12/03/23 00:48 Primary Reason for Your Visit: hyperglycemia. debility Attending Provider: Carl Couch Primary Care Provider: Pavithra Presley Consulting Providers: Mihai Pratt Discharge Orders/Prescriptions Prescriptions: New acetaminophen 325 mg Tablet 650 mg PO Q6H PRN PRN (Reason: Pain 1-10 Or Fever>100.7) Qty: 0 0RF melatonin 3 mg Tablet 3 mg PO QHS PRN PRN (Reason: Insomnia) Qty: 0 0RF insulin lispro [Humalog KwikPen Insulin] 100 unit/mL Insulin Pen See Protocol subcut ACHS Qty: 0 0RF Protocol: 1. Sliding Scale Insulin Low Dosing Condition: 150-224 mg/dl = 1 unit Condition: 225-299 mg/dl = 2 units Condition: 300-374 mg/dl = 3 units Condition: 375-449 mg/dl = 4 units Condition: Greater than 449 call physician Protocol Text: - Use for Total Daily Dose of Insulin 15-27 units - Thin, elderly, renal patients LOW DOSING ALGORITHM menthol-zinc oxide [Calmoseptine] 0.44-20.6 % Ointment 1 applic topical BID Qty: 0 0RF Protocol: *Topical Application Instructions APPLICATION INSTRUCTIONS: apply to buttock insulin glargine-yfgn 100 unit/mL (3 mL) Insulin Pen 30 unit subcut BID Qty: 0 0RF Continued levothyroxine 50 MCG tablet 50 mcg PO DAILY Patient Comments: THYROID MEDICATION pantoprazole 40 MG tablet 40 mg PO BREAKFAST Patient Comments: TAKE ON EMPTY STOMACH, 1/2HR BEFORE MEAL -ACID REFLUX atorvastatin 40 MG tablet 40 mg PO QHS aspirin 81 MG tablet 81 mg PO DAILY@0800 escitalopram oxalate 10 MG tablet 10 mg PO DAILY ferrous gluconate 236 MG tablet 65 mg PO BID levothyroxine 25 mcg tablet 25 mcg PO .[facility] Patient Comments: in addition to the 50mcg. so total of 75mcg on MWF Discontinued metformin 500 MG tablet extended release 24 hr 2,000 mg PO BREAKFAST Patient Comments: -FOR DIABETES glipizide 10 mg tablet 10 mg PO BID Qty: 60 0RF glipizide 10 mg tablet extended release 24hr 10 mg PO DAILY Trulicity 3 mg/0.5 mL pen injector 3 mg subcut QWEEK Referrals / Follow Up: [facility] [Provider Group] - Within 3 Months Pavithra Presley MD [Primary Care Provider] - Within 2 Weeks Disposition Disposition (needs filled in before D/C Order can be placed): [facility]
--- NOTE | 2023-12-06 09:02 | DS.PCM_ITS ---
Providers Date of Admission: 12/03/23 Primary Care Physician: Dr. Pavithra Presley MD Reason For Visit: SEVERE HYPERGLYCEMIA, METABOLIC ENCEPHALOPATHY AND Diagnosis Discharge Diagnosis (1) Hyperglycemia: Status: Acute Code(s): R73.9 - Hyperglycemia, unspecified (2) Metabolic encephalopathy: Status: Acute Code(s): G93.41 - Metabolic encephalopathy (3) Uncontrolled type 2 diabetes mellitus with hyperglycemia: Status: Acute Code(s): E11.65 - Type 2 diabetes mellitus with hyperglycemia (4) Adult failure to thrive: Status: Acute Code(s): R62.7 - Adult failure to thrive (5) Chronic depression: Status: Chronic Code(s): F32.A - Depression, unspecified Plan Uncontrolled DM2 * admission glucose was 499, improved but still high, increase glargine to 30 BID. * a1c 14 * She states that she was never prescribed insulin at home. That very well but may be the case, but when I had seen her in July, she was discharged to residential facility with glargine 45 units daily and sliding scale insulin. This may have not been continued when she was discharged from the residential facility, however. Encephalopathy, metabolic * resolved 2/2 hyperglycemia * Folate, B12, TSH WNL Dysphagia * Mild oropharyngeal dysphagia and esophageal dysphagia * MBS: noted esophageal retention. Pt at risk for regurgitation of foods and reflux aspiration. * ST recommending GI eval. I discussed with ST. GI eval will be as outpt at this time. * Diet: mechanical soft textures and thin liquids. Chronic conditions: * depression: continue escitalopram * HLP: continue atorvastatin. * hypothyroidism: levothyroxine VTE prophylaxis: SQ heparin Disposition: Now interested in SNF. Insurance authorization obtained in the evening on the seventh. Patient be discharged today to TCU. Medications at Discharge Home Medications levothyroxine 50 mcg tablet 50 mcg PO DAILY thyroid 06/07/14 pantoprazole 40 mg tablet,delayed release 40 mg PO BREAKFAST GERD 06/07/14 aspirin 81 mg tablet,delayed release 81 mg PO DAILY@0800 cad 05/28/19 atorvastatin 40 mg tablet 40 mg PO QHS CHOLESTEROL 05/28/19 escitalopram oxalate 10 mg tablet 10 mg PO DAILY DEPRESS 05/28/19 ferrous gluconate 236 mg (27 mg iron) tablet 65 mg PO BID supplement 05/28/19 levothyroxine 25 mcg tablet 25 mcg PO .MWF thyroid 08/09/23 acetaminophen 325 mg tablet 650 mg (2 x 325 mg) PO Q6H PRN PRN Pain 1-10 Or Fever>100.7 #0 tabs 12/06/23 insulin glargine-yfgn 100 unit/mL (3 mL) subcutaneous pen 30 unit (0.3 mL) subcut BID #0 mL 12/06/23 insulin lispro 100 unit/mL subcutaneous pen (Humalog KwikPen (U-100) Insulin) See Protocol subcut ACHS #0 mL 12/06/23 melatonin 3 mg tablet 3 mg PO QHS PRN PRN Insomnia #0 tabs 12/06/23 menthol 0.44 %-zinc oxide 20.6 % topical ointment (Calmoseptine) 1 applic topical BID #0 grams 12/06/23 Hospital Course Operations None Procedures None Summary of Care Provided Minutes Spent on Discharge: 32 Hospital Course: Patient presents weak weakness and uncontrolled diabetes. Patient's hemoglobin A1c was 14. Previously, patient had been prescribed insulin but was when she was discharged to residential facility. Unclear if that was ever continued from residential facility when she went home. Patient was started on insulin glargine had to be increased up to 30 units twice daily. Her blood sugar she describes as low at 128, doing much better. Patient was also very debilitated. Eventually the patient did agree to going somewhere for further rehab before returning home. Patient be discharged to the transitional care unit in stable condition. Patient was seen in the by speech therapy and there is concern about esophageal retention and patient being at risk for regurgitation. Patient had no obvious aspiration events and has remained stable. Patient will need to follow-up with gastroenterology as outpatient to have that further evaluated. Weight / BMI Weight Weight: 59.4 kg Body Mass Index (BMI) 26.4 ABG / Lab / Microbiology Data 12/03/23 06:39 12/03/23 06:39 Laboratory: Laboratory Results - last 24 hr 12/05/23 06:34: POC Glucose 302 H 12/05/23 10:58: POC Glucose 371 H 12/05/23 15:54: POC Glucose 323 H 12/05/23 21:13: POC Glucose 328 H 12/06/23 06:21: POC Glucose 148 H Meaningful Use Info Meaningful Use Meaningful Use Diagnoses (Choose all that apply): None applicable Ischemic Stroke Statin Dosing Therapy Reference: STATIN DOSE THERAPY REFERENCE: * Patients > 75 years receive moderate or high dose statin therapy. * Patients 75 years or YOUNGER should receive HIGH intensity statin dose unless contraindicated. You will be required to document reason for non-treatment if statin daily dose does not meet guidelines. HIGH DOSE STATIN THERAPY DAILY Atorvastatin > than or = to 40 mg Rosuvastatin > than or = to 20 mg Amlodipine + Atorvastatin > than or = to 2.5/40 mg Ezetimibe + Simvastatin 10/80 mg Simvastatin 80mg Discharge Plan Admission Admit Date/Time: 12/03/23 00:48 Primary Reason for Your Visit: hyperglycemia. debility Attending Provider: Carl Couch Primary Care Provider: Pavithra Presley Consulting Providers: Mihai Pratt Discharge Orders/Prescriptions Prescriptions: New acetaminophen 325 mg Tablet 650 mg PO Q6H PRN PRN (Reason: Pain 1-10 Or Fever>100.7) Qty: 0 0RF melatonin 3 mg Tablet 3 mg PO QHS PRN PRN (Reason: Insomnia) Qty: 0 0RF insulin lispro [Humalog KwikPen Insulin] 100 unit/mL Insulin Pen See Protocol subcut ACHS Qty: 0 0RF Protocol: 1. Sliding Scale Insulin Low Dosing Condition: 150-224 mg/dl = 1 unit Condition: 225-299 mg/dl = 2 units Condition: 300-374 mg/dl = 3 units Condition: 375-449 mg/dl = 4 units Condition: Greater than 449 call physician Protocol Text: - Use for Total Daily Dose of Insulin 15-27 units - Thin, elderly, renal patients LOW DOSING ALGORITHM menthol-zinc oxide [Calmoseptine] 0.44-20.6 % Ointment 1 applic topical BID Qty: 0 0RF Protocol: *Topical Application Instructions APPLICATION INSTRUCTIONS: apply to buttock insulin glargine-yfgn 100 unit/mL (3 mL) Insulin Pen 30 unit subcut BID Qty: 0 0RF Continued levothyroxine 50 MCG tablet 50 mcg PO DAILY Patient Comments: THYROID MEDICATION pantoprazole 40 MG tablet 40 mg PO BREAKFAST Patient Comments: TAKE ON EMPTY STOMACH, 1/2HR BEFORE MEAL -ACID REFLUX atorvastatin 40 MG tablet 40 mg PO QHS aspirin 81 MG tablet 81 mg PO DAILY@0800 escitalopram oxalate 10 MG tablet 10 mg PO DAILY ferrous gluconate 236 MG tablet 65 mg PO BID levothyroxine 25 mcg tablet 25 mcg PO .[facility] Patient Comments: in addition to the 50mcg. so total of 75mcg on MWF Discontinued metformin 500 MG tablet extended release 24 hr 2,000 mg PO BREAKFAST Patient Comments: -FOR DIABETES glipizide 10 mg tablet 10 mg PO BID Qty: 60 0RF glipizide 10 mg tablet extended release 24hr 10 mg PO DAILY Trulicity 3 mg/0.5 mL pen injector 3 mg subcut QWEEK Referrals / Follow Up: [facility] [Provider Group] - Within 3 Months Pavithra Presley MD [Primary Care Provider] - Within 2 Weeks Disposition Disposition (needs filled in before D/C Order can be placed): Detention Facility Charges/Coding Visit Charges Inpatient E&M: 82220 Disch Hosp >30min
[2023-12-06 11:37] LABS: Bedside Glucose 369 mg/dL (74-106)
[2023-12-06] MEDS: Insulin Lispro 100 UNIT/ML INSULN.PEN SC (12:52)
== END 2023-12-06 13:09 | disposition skilled nursing facility (03) ==
LOC: ED 21:09 → MS3 12-03 02:39
PROVIDERS: Admitting Provider Internal Medicine; Emergency Provider Student in an Organized Health Care Education/Training Program; PCP Internal Medicine
DX: E11.65 Type 2 diabetes mellitus with hyperglycemia (principal); Z79.84 Long term (current) use of oral hypoglycemic drugs; R62.7 Adult failure to thrive; Z79.82 Long term (current) use of aspirin; F32.A Depression, unspecified; R53.81 Other malaise; G93.41 Metabolic encephalopathy; K21.9 Gastro-esophageal reflux disease without esophagitis; E78.5 Hyperlipidemia, unspecified; R53.1 Weakness; Z79.899 Other long term (current) drug therapy; Z79.890 Hormone replacement therapy; E03.9 Hypothyroidism, unspecified; D50.9 Iron deficiency anemia, unspecified; R13.12 Dysphagia, oropharyngeal phase
CPT/HCPCS: 36415; 70450; 71045; 74230; 80048; 80053; 80320; 81001; 82607; 82746; 82962; 83036; 83735; 84100; 84443; 85025; 92526; 92610; 92611; 94668; 96361; 96365; 96366; 96372; 97110; 97162; 97166; 97530; 97535; 97802; 99221; 99252; 99284; A4216; G0378; G0463; G0480

== ENCOUNTER 2023-12-06 13:15 | Inpatient (IN) | payer MEDICARE, SELFPAY ==
[2023-12-06 13:23] VITALS: BP 93/61; PULSE 87; RESP 16; TEMP 36.1; O2SAT 99; BMI 27.3
[2023-12-06 14:18] VITALS: BMI 27.3
[2023-12-06] MEDS: Insulin Lispro 100 UNIT/ML INSULN.PEN SC ×2 (16:21→22:57)
[2023-12-06 16:39] LABS: Bedside Glucose 304 mg/dL (74-106)
--- NOTE | 2023-12-06 16:46 | HP.PCM_ITS ---
HPI - General General Date of Admission: 12/06/23 Date of Service: 12/08/23 Chief Complaint: Here for rehabilitation. HPI Narrative 12/02/2023 STEVE VIEIRA, is a 78 Female who presents to [facility] ED with hyperglycemia. Confusion, does not remember being confused, EMS called. Blood sugar high. Children in [place], and [place], want patient to swell house and move. Glucose 496, UA negative, Chest X-ray negative, CT brain negative. 12/03/2023 Admit [facility]. Lantus 25 units daily, Lispro SSI for hyperglycemia, Type 2 Diabetes Mellitus. Bloodwork for encephalopathy. PT/OT SNF. 12/03/2023 Feels well, no insulin on previous discharge from [facility]. Glucose 319, HbA1c 14. Glargine 25 units twice daily for Diabetes Mellitus II. Folate, B12, TSH, within normal limits. ST recommended MBS for dysphagia. 12/04/2023 Oral hyperglycemics ineffective. Glargine 25 units twice daily for Type 2 Diabetes Mellitus. MBS for dysphagia today. MBS recommended mechanical soft textures, thin liquids, noted esophageal retention. 12/05/2023 Feeling well, no complaints. ST recommended GI evaluation for esophageal retentin, GI consult as outpatient. [facility]. 12/06/2023 Admit to TCU with debility, here for rehabilitation, strengthening, prior to discharge home alone. [facility] Medical History Diabetes Kidney stones Adult failure to thrive Hyperglycemia due to diabetes mellitus Acute dehydration Head injury Home Medications ?Medication ?Instructions ?Recorded ?Last Taken ?Type levothyroxine 50 mcg tablet 50 mcg PO DAILY thyroid 06/07/14 12/06/23 History pantoprazole 40 mg tablet,delayed 40 mg PO BREAKFAST GERD 06/07/14 12/06/23 History release aspirin 81 mg tablet,delayed 81 mg PO DAILY@0800 cad 05/28/19 12/06/23 History release 81 mg atorvastatin 40 mg tablet 40 mg PO QHS CHOLESTEROL 05/28/19 12/05/23 History escitalopram oxalate 10 mg tablet 10 mg PO DAILY DEPRESS 05/28/19 12/06/23 History ferrous gluconate 236 mg (27 mg 65 mg PO BID supplement 05/28/19 12/06/23 History iron) tablet levothyroxine 25 mcg tablet 25 mcg PO .MWF thyroid 08/09/23 12/06/23 History acetaminophen 325 mg tablet 650 mg (2 x 325 mg) PO Q6H PRN PRN 12/06/23 Unknown Rx Pain 1-10 Or Fever>100.7 #0 tabs insulin glargine-yfgn 100 unit/mL 30 unit (0.3 mL) subcut BID 12/06/23 12/06/23 Rx (3 mL) subcutaneous pen diabetic #0 mL insulin lispro 100 unit/mL See Protocol subcut ACHS diabetic 12/06/23 12/05/23 Rx subcutaneous pen (Humalog KwikPen #0 mL (U-100) Insulin) melatonin 3 mg tablet 3 mg PO QHS PRN PRN Insomnia #0 12/06/23 12/05/23 Rx tabs menthol 0.44 %-zinc oxide 20.6 % 1 applic topical BID redness 12/06/23 12/06/23 History topical ointment (Calmoseptine) Allergy/AdvReac Type Severity Reaction Status Date / Time venlafaxine HCl (From Allergy Rash Verified 08/09/23 11:14 Effexor) meclizine AdvReac Other Verified 08/09/23 11:14 Surgical History History of cholecystectomy History of knee joint replacement H/O: section Social History (Updated 12/06/23 @ 16:[address] Rubin Cordova MD) household members: none Smoking Status: Never smoker alcohol intake: never substance use type: does not use ROS Constitutional Constitutional: Denies chills, fever(s) or weight gain ENT HEENT: Denies headache(s), nasal congestion or nasal discharge Cardiovascular Cardiovascular: Denies chest pain or palpitations Respiratory/Chest Respiratory/Chest: Denies cough, excessive phlegm production or shortness of breath with exertion Gastrointestinal Gastrointestinal: Denies abdominal pain, nausea or vomiting Genitourinary Genitourinary: Denies dysuria Musculoskeletal Musculoskeletal: Denies joint pain or joint swelling Integumentary Integumentary: Denies rash or wounds Neurologic Neurologic: Reports memory loss; Denies focal weakness, numbness or tingling Psychiatric Psychiatric: Denies anxiety, auditory hallucinations, depression, homicidal ideation or suicidal ideation Vital Signs Vital Signs Vital Signs: 12/06/23 13:23 12/06/23 13:23 Temperature 97.0 F L Temperature Source Temporal Pulse Rate 87 Pulse Rhythm Regular Pulse Strength Normal (2+) Respiratory Rate 16 Respiratory Effort Normal Non-Labored Respiratory Depth Normal Respiratory Pattern Normal Blood Pressure 93/61 Blood Pressure Mean 71 Blood Pressure Source Monitor Blood Pressure Position Sitting Pulse Ox 99 Oxygen Delivery Method Room Air Room Air Weight Weight: 61.416 kg Body Mass Index (BMI) 27.3 Physical Exam Const alert General Appearance: cooperative HEENT normocephalic Eyes PERRL and EOMs intact bilaterally Neck supple, no JVD and no carotid bruits Resp normal respiratory effort, normal air movement and clear to auscultation bilaterally Cardio regular rate and regular rhythm GI normal to inspection, nondistended, normoactive bowel sounds, non-tender and non-distended Extremity normal capillary refill General Extremity: Negative for edema Skin no rashes or lesions noted General Skin Exam: no breakdown Psych affect normal Appearance: appropriate Results Lab / Micro Data 12/07/23 05:36 12/07/23 05:36 Labs: Laboratory Results - last 24 hr 12/06/23 16:08: POC Glucose 304 H Assessment & Plan Assessment/Plan (1) Debility: (2) Hyperglycemia: (3) Acute encephalopathy: (4) Dysphagia: (5) Esophageal abnormality: (6) Uncontrolled type 2 diabetes mellitus with hyperglycemia: (7) Hypothyroidism: (8) GERD (gastroesophageal reflux disease): (9) Hyperlipidemia: (10) Depression: (11) Iron deficiency anemia: PLAN: Plan 78 year old female with below past medical history hospitalized for acute encephalopathy 2/2 hyperglycemia, complicated by dysphagia, esophageal retention, admitted to TCU with debility, here for rehabilitation, strengthening, prior to discharge home alone. * Debility - PT/OT. * Pain - Tylenol 1000mg q6 prn pain (1-10). * Bowel - senna/colace 1 tablet bid. * Adult immunization - Administer pneumonia vaccine, covid vaccine, flu vaccine as appropriate. * DVT prophylaxis - Hold, anemia. * CV prophylaxis - Aspirin 81mg daily. * Hyperlipidemia - Atorvastatin 40mg qhs. * Depression - Lexapro 10mg daily, stable chronic chcf use, GDR not recommended. * Iron deficiency anemia - Ferrous gluconate 324mg bidcm. * Diabetes Mellitus II - Glargine 30 units bid. * Hypothyroidism - Levothyroxine 25mcg/50mcg alternating. * Insomnia - Melatonin 3mg qhs prn. * Skin irritation - Calmoseptine topical bid. * GERD - Pantoprazole 40mg daily. * Esophageal retention - Consult Dr. Alarcon.
[2023-12-06] MEDS: Ferrous Gluconate 324 MG Tablet PO (17:07)
[2023-12-06 21:35] LABS: Bedside Glucose 384 mg/dL (74-106)
[2023-12-06] MEDS: Insulin Glargine-YFGN 100 UNIT/ML Pen 30 UNIT SC (22:56)
[2023-12-06] MEDS: Atorvastatin Calcium 40 MG Tablet PO (22:59)
[2023-12-06] MEDS: Senna/Docusate Sodium 1 Tablet PO (22:59)
[2023-12-06] MEDS: Menthol/Lanolin/Calamine/Znox 113 GM Tube 1 APPLIC TOPICAL (22:59)
[2023-12-07] MEDS: Levothyroxine 50 MCG Tablet PO (05:44)
--- NOTE | 2023-12-07 05:50 | NURSING ---
FBS 72 this am. Shakeel crackers, peanut butter, and 4 of orange juice gievn. Resident denies any c/o hypoglycemia. Will continue to monitor.
[2023-12-07 06:10] LABS: Absolute Lymphocyte Count 1.75 X10^3/uL (0.83-4.51); Absolute Neutrophil Count 2.3 X10^3/uL (2.0-7.7); Basophil# 0.05 X10^3/uL; Eosinophil# 0.25 X10^3/uL; Eosinophils% 5.1 % (0-5); Hematocrit 35.4 % (37-47); Hemoglobin 10.6 g/dL (12.0-15.0); Lymphocyte # 1.75 X10^3/ul (0.83-4.51); Lymphocyte % 35.8 % (19-41); Mean Corp Hgb Conc 29.9 g/dL (32-36); Mean Corpuscular Hgb 28.5 pg (27.0-32.0); Mean Corpuscular Volume 95.2 fL (81-99); Mean Platelet Vol. 11.4 fl (6.2-12.0); Monocyte# 0.47 X10^3/uL; Monocyte% 9.6 % (0-10); NRBC Flagged by Analyzer 0 % (0-5); Neutrophil # 2.34 X10^3/uL (2.7-7.7); Neutrophil % 47.9 % (47-70); Platelet Count 160 K/mm3 (150-450); RBC Distribution Width CV 15.3 % (11.6-14.6); RBC Distribution Width SD 53.1 fl (35.1-43.9); Red Blood Count 3.72 M/mm3 (4.2-5.4); White Blood Count 4.9 K/mm3 (4.4-11.0)
[2023-12-07 06:12] LABS: Bedside Glucose 72 mg/dL (74-106)
[2023-12-07 06:58] LABS: Anion Gap 5 (5-15); BUN 18 mg/dL (7-18); BUN/Creat Ratio 26.4 RATIO (10-20); Calcium,Total 9.9 mg/dL (8.5-10.1); Chloride 107 mmol/L (98-107); Creatinine, Serum 0.68 mg/dL (0.55-1.02); EST Glomerular Filtration Rate 88 mL/min (>60); Est Glom Filt Rate - Afr Amer 107 mL/min (>60); Estimated Creatinine Clearance 45.92 ml/min; Glucose 82 mg/dL (74-106); Potassium 3.8 mmol/L (3.5-5.1); Sodium Level 140 mmol/L (136-145)
[2023-12-07] MEDS: Ferrous Gluconate 324 MG Tablet PO ×2 (08:34→17:24)
[2023-12-07] MEDS: Escitalopram Oxalate 10 MG Tablet PO (08:34)
[2023-12-07] MEDS: Pantoprazole Sodium 40 MG Tablet PO (08:34)
[2023-12-07] MEDS: Aspirin E.C. 81 MG Tablet PO (08:34)
[2023-12-07] MEDS: Tuberculin,Purif.prot.deriv. 50 TU/ML Vial 0.1 ML ID (08:35)
[2023-12-07] MEDS: Insulin Glargine-YFGN 100 UNIT/ML Pen 30 UNIT SC ×2 (08:35→22:31)
[2023-12-07] MEDS: Menthol/Lanolin/Calamine/Znox 113 GM Tube 1 APPLIC TOPICAL ×2 (08:35→22:26)
[2023-12-07] MEDS: Senna/Docusate Sodium 1 Tablet PO ×2 (08:35→22:29)
[2023-12-07 09:22] VITALS: BP 91/39; PULSE 77; RESP 18; TEMP 36.2; O2SAT 98
[2023-12-07 09:55] VITALS: O2SAT 98
--- NOTE | 2023-12-07 10:49 | PCM.PN.DRR ---
Documented by User: Macarena Doyle 12/07/23 11:55 TCU RX Drug Regimen Review Subjective/Objective Subjective/Objective: Subjective: TCU Admission. 78 YOF presented to the ER with hyperglycemia. Hospitalized for acute encephalopathy 2/2 hyperglycemia, complicated by dysphagia, esophageal retention. Admitted to TCU with debility for strengthening and rehabilitation. Objective: Allergies venlafaxine HCl (From Effexor) Allergy (Verified 08/09/23 11:14) Rash CHEST BROKE OUT, GOT REAL DIZZY. meclizine Adverse Reaction (Verified 08/09/23 11:14) Other PT BECAME EXTREMELY FATIGUED & WAS UNABLE TO WALK AFTER TAKING 12.5MG OF MECLIZINE. Current Medications Generic Name Dose Route Start Last Admin Trade Name Freq PRN Reason Stop Dose Admin Acetaminophen 650 mg 12/06/23 14:15 Acetaminophen 325 Mg Tablet PO Q6H PRN PRN Pain 1-10 Or Fever>100.7 Aspirin 81 mg 12/07/23 08:00 12/07/23 08:34 Aspirin E.C. 81 Mg Tablet PO 81 mg DAILY@0800 SUDHIR Administration Atorvastatin Calcium 40 mg 12/06/23 22:00 12/06/23 22:59 Atorvastatin Calcium 40 Mg Tablet PO 40 mg QHS SUDHIR Administration Calamine/Phenol 1 applic 12/06/23 22:00 12/07/23 08:35 Menthol/Lanolin/Calamine/Znox 113 Gm Tube TOPICAL 1 applic BID SUDHIR Administration Protocol Escitalopram Oxalate 10 mg 12/07/23 10:00 12/07/23 08:34 Escitalopram Oxalate 10 Mg Tablet PO 10 mg DAILY SUDHIR Administration Ferrous Gluconate 324 mg 12/06/23 17:00 12/07/23 08:34 Ferrous Gluconate 324 Mg Tablet PO 324 mg BIDCM SUDHIR Administration Insulin Glargine 30 unit 12/06/23 22:00 12/07/23 08:35 Insulin Glargine-Yfgn 100 Unit/Ml Pen SC 30 unit BID SUDHIR Administration Insulin Human Lispro 0 unit 12/06/23 16:00 12/07/23 05:50 Insulin Lispro 100 Unit/Ml Insuln.Pen SC Not Given ACHS SUDHIR Protocol Levothyroxine Sodium 50 mcg 12/07/23 06:00 12/07/23 05:44 Levothyroxine 50 Mcg Tablet PO 50 mcg DAILY@0600 SUDHIR Administration Levothyroxine Sodium 25 mcg 12/08/23 06:00 Levothyroxine 25 Mcg Tablet PO MoWeFr@0600 SUDHIR Melatonin 3 mg 12/06/23 14:15 Melatonin 3 Mg Tablet PO QHS PRN PRN Insomnia Pantoprazole Sodium 40 mg 12/07/23 08:00 12/07/23 08:34 Pantoprazole Sodium 40 Mg Tablet PO 40 mg BREAKFAST SUDHIR Administration Senna/Docusate Sodium 1 tablet 12/06/23 22:00 12/07/23 08:35 Senna/Docusate Sodium 1 Tablet PO 1 tablet BID SUDHIR Administration Tuberculin PPD 0.1 ml 12/14/23 10:00 Tuberculin,Purif.Prot.Deriv. 50 Tu/Ml Vial ID 12/14/23 10:01 X1 ONE Problem List Iron deficiency anemia (Acute) Depression (Acute) Hyperlipidemia (Acute) GERD (gastroesophageal reflux disease) (Acute) Hypothyroidism (Acute) Esophageal abnormality (Acute) Dysphagia (Acute) Acute encephalopathy (Acute) Debility (Acute) Uncontrolled type 2 diabetes mellitus with hyperglycemia (Acute) Hyperglycemia (Acute) Vital Signs Temp Pulse Resp BP Pulse Ox O2 Del Method 97.1 F L 77 18 91/39 L 98 Room Air 12/07/23 09:22 12/07/23 09:22 12/07/23 09:22 12/07/23 09:22 12/07/23 09:55 12/07/23 09:55 Oxygen Delivery Method Room Air Weight: 61.416 kg Body Mass Index (BMI) 27.3 Sodium 140 mmol/L (136-145) 12/07/23 05:36 Potassium 3.8 mmol/L (3.5-5.1) 12/07/23 05:36 Chloride 107 mmol/L (98-107) 12/07/23 05:36 Carbon Dioxide 28.0 mmol/L (21.0-32.0) 12/07/23 05:36 Anion Gap 5 (5-15) 12/07/23 05:36 BUN 18 mg/dL (7-18) 12/07/23 05:36 Creatinine 0.68 mg/dL (0.55-1.02) 12/07/23 05:36 Est GFR (MDRD) Af Amer 107 mL/min (>60) 12/07/23 05:36 Est GFR (MDRD) Non-Af 88 mL/min (>60) 12/07/23 05:36 BUN/Creatinine Ratio 26.4 RATIO (10-20) H 12/07/23 05:36 Glucose 82 mg/dL (74-106) 12/07/23 05:36 Assessment/Plan: 1. Pain: acetaminophen 1000mg PO Q6H PRN pain 1-10. Resident has not had any doses. Please continue to monitor for increased pain and PRN usage. 2. Bowel: senna/docusate 1T PO BID. Please continue to monitor for constipation and diarrhea. Last documented bowel movement was 12/05/23. 3. CV prophylaxis: aspirin 81mg PO DAILYCM. Please continue to monitor for S/S of bleeding and hemoglobin (last 10.6g/dL). 4. Diabetes mellitus II: insulin glargine 30 units SC BID and insulin lispro low sliding scale SC ACHS. Resident has had 7 units of insulin lispro. Please consider decreasing insulin glargine dose as the last 2 blood sugars were low (82mg/dL and 72 mg/dL). Thanks. Please continue to monitor hemoglobin A1c (last 14% 11/01/23), S/S of hypoglycemia and glucose. 5. Hyperlipidemia: atorvastatin 40mg PO QHS. Please consider ordering a lipid panel if clinically appropriate as the resident does not have a panel on file. Thanks. Please continue to monitor LFTs (last 12/03/23) and for muscle pain. 6. Iron deficiency anemia: ferrous gluconate 324mg PO BIDCM. Please continue to monitor hemoglobin (last 10.6g/dL), dark stools, constipation and iron studies (last 08/10/23). 7. Hypothyroidism: levothyroxine 75MCG PO MWF and 50mcg all other days. Please continue to monitor TSH (last 12/02/23) and S/S of hypothyroidism. 8. GERD: pantoprazole 40mg PO daily. Please continue to monitor for S/S of GERD and diarrhea (BEERs medication). 9. Insomnia: melatonin 3mg PO QHS PRN insomnia. Resident has not had any doses so far. Please continue to monitor for PRN usage and insomnia. 10. Skin irritation: calmoseptine topical BID. Please continue to monitor. Assessment/Plan for indications treated with psychotropic medications: 1. Depression: escitalopram 10mg PO daily. Please see physician note regarding GDR. Please continue to monitor for suicidal ideation (black box warning), falls/fractures (BEERs medication), GI side effects and sodium (last 140mmol/L). Medical chart and medication regimen reviewed. The following medication irregularities or issues were identified: 1. Insulin glargine 30 units SC BID. Please consider decreasing insulin glargine dose as the last 2 blood sugars were low (82mg/dL and 72 mg/dL). Thanks. 2. Atorvastatin 40mg PO QHS. Please consider ordering a lipid panel if clinically appropriate as the resident does not have a panel on file. Thanks. Date Date of Note:: 12/07/23 Documented by User: Dr. Rubin Cordova MD 12/07/23 12:13 TCU RX Drug Regimen Review Provider Comments Provider responsibility Provider Comments to Recommendations by Pharmacy: Agree
[2023-12-07] MEDS: Insulin Lispro 100 UNIT/ML INSULN.PEN SC (10:53)
[2023-12-07 11:07] LABS: Bedside Glucose 329 mg/dL (74-106)
[2023-12-07 16:25] LABS: Bedside Glucose 286 mg/dL (74-106)
[2023-12-07 21:47] LABS: Bedside Glucose 315 mg/dL (74-106)
[2023-12-07] MEDS: Atorvastatin Calcium 40 MG Tablet PO (22:29)
--- NOTE | 2023-12-07 23:35 | NURSING ---
Patient given prune juice with butter per request for c/o constipation, last BM 12/06/23,
--- NOTE | 2023-12-08 01:08 | NURSING ---
Resident has been completing unassisted transfers at different times during the shift. Bed alarm and camera in use. Instructed on the importance of calling for staff assist for all transfers, ambulation, and that she is at risk for falls w/ serious injury. Resident questions if she can go home tomorrow. Informed her that she is not safe to return home at this time. She lives alone and notes her son lives on [address]. She denies knowing her neighbors. Notes she does not do much cooking at home. Transportation is an issue. Has not seen an eye dr or egg grader in 2-3 years. She has a blood sugar monitor that was delivered to her home but she is unsure how to use it and reports she has no one to bring the unit in for staff to complete teaching. Informed resident that she is not safe to return home at this time. Bed pad alarm and room camera in use. Will continue to monitor.
[2023-12-08] MEDS: Levothyroxine 50 MCG Tablet PO (05:22)
[2023-12-08] MEDS: Levothyroxine 25 MCG TABLET PO (05:22)
[2023-12-08 06:09] LABS: Bedside Glucose 87 mg/dL (74-106)
--- NOTE | 2023-12-08 06:38 | NURSING ---
Patient requested and received crackers for blood sugar reading of 87, no s/sx of hypoglycemia noted or voiced.
[2023-12-08 07:05] LABS: Cholesterol 117 mg/dL (200); High Density Lipoprotein 44 mg/dL; Triglycerides 81 mg/dL; Very Low Density Lipoprotein 16 mg/dL (5-40)
[2023-12-08] MEDS: Pantoprazole Sodium 40 MG Tablet PO (09:30)
[2023-12-08] MEDS: Ferrous Gluconate 324 MG Tablet PO ×2 (09:30→18:05)
[2023-12-08] MEDS: Aspirin E.C. 81 MG Tablet PO (09:31)
[2023-12-08] MEDS: Escitalopram Oxalate 10 MG Tablet PO (09:31)
[2023-12-08] MEDS: Senna/Docusate Sodium 1 Tablet PO ×2 (09:31→21:38)
[2023-12-08] MEDS: Menthol/Lanolin/Calamine/Znox 113 GM Tube 1 APPLIC TOPICAL ×2 (09:31→21:37)
[2023-12-08] MEDS: Insulin Glargine-YFGN 100 UNIT/ML Pen 30 UNIT SC ×2 (09:31→22:18)
--- NOTE | 2023-12-08 10:00 | CASEMGMT ---
Social Work SW received notification that the patient has cat in home that she was worried about. Patient was granted leave to go to home and check on cat with officer. Patient was escorted to home by officer, Shailesh and RN, Alonso. Patient's home was described as deplorable due to hoarding, bugs, unclean, and unkept home. Officer was unable to locate cat in the home. The officer informed SW that the patient had no clear walk way in the home to safely ambulate around the home. Patient's back door was left open due to patient falling in parking lot across the street from home. Patient will require APS call due to living condition. SW to follow up with APS and safe discharge planning. BRENDA [place]
--- NOTE | 2023-12-08 11:10 | NURSING ---
Circulating Nurse Note; Activity Asset: Complete Beatriz prefers to be called Abbi she is never called Beatriz. She is independent in her choice of daily activities w/reminders and stated she prefers independent activities over group. At this time she just wants to be home w/her cat and is very worried about it. She will watch tv and read the paper. She welcomes visits w/the therapy dog and building rental manager when available. Staff will continue to remind her of weekly activities and respect her right to say no.
--- NOTE | 2023-12-08 11:11 | NS ---
MST score = 1
[2023-12-08 11:37] LABS: Bedside Glucose 295 mg/dL (74-106)
[2023-12-08 12:56] VITALS: BP 104/55; PULSE 73; RESP 16; TEMP 36.6; O2SAT 98
[2023-12-08 16:35] LABS: Bedside Glucose 371 mg/dL (74-106)
--- NOTE | 2023-12-08 17:55 | EX.PCM.CON.G ---
HPI Consult Data Date of Consult: 12/08/23 HPI Narrative Reason for Consultation: Esophageal dysphagia HPI Narrative: STEVE RUSSLEL, is a 78 F with a past medical history of hyperlipidemia, hypothyroidism, DM-2; uncontrolled with hyperglycemia, SAMMY, history of renal calculi, chronic depression, GERD, history of cholecystectomy, OA; with history of TKR, admission to [facility] from August 09, 2023 to August 12, 2023 for treatment of adult [id number]-cybcks. Also there was an admission here from August 15, 2023 to August 16, 2023 for treatment of severe hyperglycemia of 681 mg/dL present on admission complicated by a UTI with patient chronically confused and struggling to live at home alone and unable to consistently take her diabetic medications who now re-presents to [facility] ER complaining of confusion and elevated blood glucose. She stated she does not have a clear memory of the days events so information was gathered from chart, medical staff and computer. According to the records Ms. Russell was crossing the street when a passerby noted she was confused and not acting right so they subsequently activated EMS. She was diagnosed with uncontrolled diabetes .Her admission glucose was 499, improved but still high, increase glargine to 30 BID. Her a1c is 14. Her altered mental status was thought to be secondary to encephalopathy secondary to hyper glycemia. She underwent a swallowing study and was determined to have mild oropharyngeal dysphagia and moderate esophageal dysphagia. It was noted that she had esophageal retention on her modified video swallow and was deemed high risk for aspiration of food and stomach contents. Therefore GI consultation was recommended. She says she has been having esophageal dysphagia for long time where she has to vomit up food on a 3-4 times a week basis. [facility] Medical History Diabetes Kidney stones Adult failure to thrive Hyperglycemia due to diabetes mellitus Acute dehydration Head injury Home Medications ?Medication ?Instructions ?Recorded ?Last Taken ?Type levothyroxine 50 mcg tablet 50 mcg PO DAILY thyroid 06/07/14 12/06/23 History pantoprazole 40 mg tablet,delayed 40 mg PO BREAKFAST GERD 06/07/14 12/06/23 History release aspirin 81 mg tablet,delayed 81 mg PO DAILY@0800 cad 05/28/19 12/06/23 History release 81 mg atorvastatin 40 mg tablet 40 mg PO QHS CHOLESTEROL 05/28/19 12/05/23 History escitalopram oxalate 10 mg tablet 10 mg PO DAILY DEPRESS 05/28/19 12/06/23 History ferrous gluconate 236 mg (27 mg 65 mg PO BID supplement 05/28/19 12/06/23 History iron) tablet levothyroxine 25 mcg tablet 25 mcg PO .MWF thyroid 08/09/23 12/06/23 History acetaminophen 325 mg tablet 650 mg (2 x 325 mg) PO Q6H PRN PRN 12/06/23 Unknown Rx Pain 1-10 Or Fever>100.7 #0 tabs insulin glargine-yfgn 100 unit/mL 30 unit (0.3 mL) subcut BID 12/06/23 12/06/23 Rx (3 mL) subcutaneous pen diabetic #0 mL insulin lispro 100 unit/mL See Protocol subcut ACHS diabetic 12/06/23 12/05/23 Rx subcutaneous pen (Humalog KwikPen #0 mL (U-100) Insulin) melatonin 3 mg tablet 3 mg PO QHS PRN PRN Insomnia #0 12/06/23 12/05/23 Rx tabs menthol 0.44 %-zinc oxide 20.6 % 1 applic topical BID redness 12/06/23 12/06/23 History topical ointment (Calmoseptine) Allergy/AdvReac Type Severity Reaction Status Date / Time venlafaxine HCl (From Allergy Rash Verified 08/09/23 11:14 Effexor) meclizine AdvReac Other Verified 08/09/23 11:14 Surgical History History of cholecystectomy History of knee joint replacement H/O: section Social History (Updated 12/06/23 @ 16:[address] Rubin Cordova MD) household members: none Smoking Status: Never smoker alcohol intake: never substance use type: does not use ROS Constitutional Constitutional: Denies chills, fever(s) or weight gain ENT HEENT: Denies headache(s), nasal congestion or nasal discharge Cardiovascular Cardiovascular: Denies chest pain or palpitations Respiratory/Chest Respiratory/Chest: Denies cough, excessive phlegm production or shortness of breath with exertion Gastrointestinal Gastrointestinal: Denies abdominal pain, nausea or vomiting Genitourinary Genitourinary: Denies dysuria Musculoskeletal Musculoskeletal: Denies joint pain or joint swelling Integumentary Integumentary: Denies rash or wounds Neurologic Neurologic: Reports memory loss; Denies focal weakness, numbness or tingling Psychiatric Psychiatric: Denies anxiety, auditory hallucinations, depression, homicidal ideation or suicidal ideation Physical Exam Const alert General Appearance: cooperative HEENT normocephalic Eyes PERRL and EOMs intact bilaterally Neck supple, no JVD and no carotid bruits Resp normal respiratory effort, normal air movement and clear to auscultation bilaterally Cardio regular rate and regular rhythm GI normal to inspection, nondistended, normoactive bowel sounds, non-tender and non-distended Extremity normal capillary refill General Extremity: Negative for edema Skin no rashes or lesions noted General Skin Exam: no breakdown Psych affect normal Appearance: appropriate Lab / Micro Data 12/07/23 05:36 12/07/23 05:36 Labs: Laboratory Results - last 24 hr 12/07/23 21:30: POC Glucose 315 H 12/08/23 05:14: Triglycerides 81, Cholesterol 117, LDL Cholesterol 57, VLDL Cholesterol 16, HDL Cholesterol 44 12/08/23 05:49: POC Glucose 87 12/08/23 11:08: POC Glucose 295 H 12/08/23 16:12: POC Glucose 371 H Assessment & Plan Assessment/Plan (1) Hyperglycemia: (2) Metabolic encephalopathy: (3) Uncontrolled type 2 diabetes mellitus with hyperglycemia: (4) Adult failure to thrive: (5) Chronic depression: PLAN: Plan 78-year-old with severe hyperglycemia of 496 mg/dL present on admission consistent with DM-2; uncontrolled with hyperglycemia .her blood sugars under better control. She has not shown any more signs of encephalopathy. However she is having esophageal dysphagia. Differential diagnosis does include Sadie esophagitis, esophageal motility disorder including achalasia. Also different diagnosis would be diverticulum, erosive esophagitis with esophageal stricture. She should undergo an upper endoscopy to evaluate upper GI tract. She was explained alternatives, risk, benefits including understanding bleeding, infection, sepsis, perforation, need for emergent urgent . She have an ASA of 3. Charges/Coding Visit Charges Inpatient E&M: 40170 SNF Init L2
[2023-12-08] MEDS: Atorvastatin Calcium 40 MG Tablet PO (21:37)
[2023-12-08 21:41] LABS: Bedside Glucose 380 mg/dL (74-106)
[2023-12-09 06:38] LABS: Bedside Glucose 148 mg/dL (74-106)
[2023-12-09 10:52] VITALS: PULSE 55; RESP 16; O2SAT 98
--- NOTE | 2023-12-09 12:36 | NURSING ---
Patient notified of another patient testing positive for Covid, refused to have this nurse contact family.
[2023-12-09 12:59] LABS: Bedside Glucose 115 mg/dL (74-106)
--- NOTE | 2023-12-09 13:32 | CASEMGMT ---
Social Work SW submitted referral to [place] [employer]. LESLI spoke with [facility] APS worker, Felipe Whatley [phone] who informed LESLI of patient's history with APS. Patient's son, Salomón was supposed to obtain guardianship in the past, but declined to move forward. Felipe informed LESLI that the patient had dogs removed from home, patient should not have any animals in the home. Felipe informed LESLI that she will speaking with her supervisor production department to discuss whether emergency guardianship should be filed to assist with patient care. Felipe informed LESLI that she will follow up post discussion with supervisor production department. LESLI will continue to follow for discharge planning.
--- NOTE | 2023-12-09 13:50 | NURSING ---
Patient off unit for GI procedure.
[2023-12-09 14:00] VITALS: BMI 27.1
[2023-12-09 14:07] VITALS: BP 104/60; PULSE 85; RESP 16; TEMP 36.3; O2SAT 98
--- NOTE | 2023-12-09 16:29 | NURSING ---
Report from PACU following EGD. Dr. kim took biopsies and dialated patient's esophagus. Recommend repeat EGD f/u in 4 months . To take Protonix 20mg bid x 6 months, advance diet as tolerated, resume all other medications.
--- NOTE | 2023-12-09 16:38 | NURSING ---
Patient returned to unit from procedure at this time.
[2023-12-09] MEDS: COVID VAC 23-24(12UP)(ANDU)/PF 50 MCG/0.5 ML SYRINGE IM (17:13)
[2023-12-09] MEDS: Ferrous Gluconate 324 MG Tablet PO (17:21)
[2023-12-09 17:27] LABS: Bedside Glucose 82 mg/dL (74-106)
[2023-12-09] MEDS: Senna/Docusate Sodium 1 Tablet PO (21:34)
[2023-12-09] MEDS: Atorvastatin Calcium 40 MG Tablet PO (21:34)
[2023-12-09] MEDS: Pantoprazole Sodium 20 MG Tablet PO (21:34)
[2023-12-09] MEDS: Insulin Glargine-YFGN 100 UNIT/ML Pen 30 UNIT SC (21:35)
[2023-12-09] MEDS: Menthol/Lanolin/Calamine/Znox 113 GM Tube 1 APPLIC TOPICAL (21:36)
--- NOTE | 2023-12-09 21:37 | NURSING ---
Dr. Cordova notified of HS blood sugar. No new orders @ this time.
[2023-12-09 21:39] VITALS: BP 102/58; PULSE 72
[2023-12-09 21:48] LABS: Bedside Glucose 402 mg/dL (74-106)
--- NOTE | 2023-12-09 22:50 | NURSING ---
Pt cont. to request high sugar snacks despite diabetic education and high BS results.
[2023-12-10] MEDS: Levothyroxine 25 MCG TABLET PO (05:58)
[2023-12-10] MEDS: Levothyroxine 50 MCG Tablet PO (05:58)
[2023-12-10 08:07] LABS: Bedside Glucose 104 mg/dL (74-106)
[2023-12-10] MEDS: Insulin Lispro 100 UNIT/ML INSULN.PEN SC ×3 (08:36→17:50)
[2023-12-10] MEDS: Escitalopram Oxalate 10 MG Tablet PO (08:37)
[2023-12-10] MEDS: Aspirin E.C. 81 MG Tablet PO (08:37)
[2023-12-10] MEDS: Senna/Docusate Sodium 1 Tablet PO ×2 (08:38→22:15)
[2023-12-10] MEDS: Insulin Glargine-YFGN 100 UNIT/ML Pen 30 UNIT SC ×2 (08:38→22:14)
[2023-12-10] MEDS: Ferrous Gluconate 324 MG Tablet PO ×2 (08:38→17:59)
[2023-12-10] MEDS: Pantoprazole Sodium 20 MG Tablet PO ×2 (08:38→22:15)
[2023-12-10] MEDS: Menthol/Lanolin/Calamine/Znox 113 GM Tube 1 APPLIC TOPICAL ×2 (08:46→22:15)
[2023-12-10 11:01] LABS: Bedside Glucose 379 mg/dL (74-106)
--- NOTE | 2023-12-10 13:02 | CASEMGMT ---
Addendum entered by Summer Ortega 12/10/23 13:22: Patient stated during meeting that she will escape to return home, if she is not discharged from facility. Original Note: Social Work- Care Planning IDT met with patient at bedside and sonSalomón via phone. Discussed patient progress with therapy (PT/OT/ST), activities, and dietary. Activities: no concerns. Patient is on a soft and bite sized diet, Glucerna. Per Speech Therapy, a consult was placed for swallowing concerns. The patient had a modified barium swallow study and EGD; found a large hiatal hernia. Patient requires monitoring and outpatient follow up with GI. patient diet to continue to be monitored to determine, if it will advance to regular diet. Patient scored a 34/50 on B Cat. Patient scores indicate for mild cognitive deficit. ST discussed concerns for patient returning home alone. Patient's son, Salomón informed ST that the patient will not be discharging home alone; patient will transfer to facility in [place]. Patient is ambulating 150ft with cane contact guard assist. LESLI educated patient and son, Salomón educated patient of [facility] Medicare insurance coverage; next review date 12/16. LESLI discussed concerns regarding returning home. APS is currently involved. Salomón requested to speak with SW outside of meeting. Patient informed team that she would like to return home. LESLI informed patient that it is unsafe to return home. LESLI will continue to follow to support discharge planning BRENDA [place]
--- NOTE | 2023-12-10 13:52 | CASEMGMT ---
Addendum entered by Summer Ortega 12/10/23 14:14: SW received follow up from Felipe informing SW that [facility] APS will file for emergency guardianship. Physician will need to complete emergency expert statement for guardianship. Original Note: Social Work SW contacted APS and spoke with Felipe to report discussion with son, Salomón. Felipe informed SW that the patient's son informed APS that he would transition her to fci in [place] in the past. LESLI informed Felipe that the patient's insurance next review date is 12/16. Felipe informed SW that she will be contacting blackjack supervisor to discuss guardianship and determine, if filing can be completed emergent. SW awaiting APS follow up. BRENDA [place]
[2023-12-10 14:35] VITALS: BP 115/61; PULSE 95; RESP 16; TEMP 38.1; O2SAT 98
--- NOTE | 2023-12-10 15:40 | CASEMGMT ---
Social Work BIM () LESLI met with patient and spoke with sonSalomón via phone to complete initial intake assessment. Patient confirmed demographics and contact information. Patient informed SW that she resides in home alone; children lives out of town. Patient is unable to safely care for self in home. Patient informed SW that sonSam is conservator managing finances. SonSalomón lives in [place], [place]. Patient informed SW that she is unsure if she has a advanced directive. Patient informed SW that she would like to return home. SW informed patient of [facility] Medicare Insurance coverage; next review date: 12/15. Patient informed SW that she does not want to remain on TCU. SW informed patient that current conditions of home is unsafe. LESLI spoke with patient's sonSalomón who informed LESLI that he has spoke with [facility] in [place]. Salomón informed LESLI that he will be submitting patient financial paperwork to [place] today, 12/09. Salomón informed LESLI that he does not want patient to return to home, he agrees living situation is unsafe. Salomón informed LESLI that he helped remove things from the home in July. LESLI informed Salomón that the patient has APS involved. Salomón informed LESLI that APS was previously involved in July. LESLI inquired about guardianship. Salomón informed LESLI that he did not obtain guardianship in the past due to patient not needing it. LESLI informed Salomón that APS will be seeking emergent guardianship for patient, if a safe plan is not created. Salomón informed LESLI that he intend to move patient to [place] to be able to assist with her care. LESLI informed Salomón that he will need to provide confirmation of placement and plan. Salomón requested follow up from LESLI regarding discharge. [id number]- Lesli received a call from Felipe TILLEY informing LESLI that she spoke with sonSalomón to discuss guardianship. Felipe informed LESLI that they are going to hold off on filing until son confirms placement. If the son does not confirm transition of care plans for patient to safely discharge, APS will submit filing for emergency guardianship. Felipe requested that LESLI fax Physician Statement of Expert Evaluation to [phone] and mail letter to: [address] [place] [id number] [address] [place]
[2023-12-10 16:27] LABS: Bedside Glucose 275 mg/dL (74-106)
[2023-12-10 17:00] LABS: Bacteria 0 SEEN /hpf (None Seen); Mucous, Urine 0 SEEN /hpf (<or=2+); Red Blood Cells-Urine 0 SEEN /hpf (0-5); Squamous Epithelial Cells - UA 0 SEEN /hpf (5-10); White Blood Cells 0 SEEN /hpf (0-5)
[2023-12-10 17:07] LABS: Color, Urine Yellow (Yellow); Glucose, Dipstick 1000 mg/dl (Normal); Ketone-Dipstick Negative (Negative); Leukocyte Esterase-Dipstick Negative /ul (Negative); Nitrite-Dipstick Negative (Negative); Occult Blood-Urine 10 /ul (Negative); Protein-Dipstick Negative (Negative); Specific Gravity, Urine 1.015 (1.002-1.030); Urine Bilirubin Dipstick Negative (Negative); Urine Clarity Clear (Clear); Urine Urobilinogen 1 mg/dl (Normal); Urine pH 6.5 (5.0 - 8.0)
[2023-12-10 17:13] LABS: Absolute Lymphocyte Count 0.45 X10^3/uL (0.83-4.51); Absolute Neutrophil Count 3.4 X10^3/uL (2.0-7.7); Basophil# 0.02 X10^3/uL; Basophil% 0.5 % (0-1); Eosinophil# 0.13 X10^3/uL; Hematocrit 31.7 % (37-47); Hemoglobin 9.4 g/dL (12.0-15.0); Lymphocyte # 0.45 X10^3/ul (0.83-4.51); Lymphocyte % 10.3 % (19-41); Mean Corp Hgb Conc 29.7 g/dL (32-36); Mean Corpuscular Hgb 28.3 pg (27.0-32.0); Mean Corpuscular Volume 95.5 fL (81-99); Mean Platelet Vol. 11.6 fl (6.2-12.0); Monocyte# 0.37 X10^3/uL; Monocyte% 8.4 % (0-10); NRBC Flagged by Analyzer 0 % (0-5); Neutrophil # 3.39 X10^3/uL (2.7-7.7); Neutrophil % 77.3 % (47-70); POSITIVE DIFFERENTIAL YES; Platelet Count 119 K/mm3 (150-450); RBC Distribution Width SD 55.6 fl (35.1-43.9); Red Blood Count 3.32 M/mm3 (4.2-5.4); White Blood Count 4.4 K/mm3 (4.4-11.0)
[2023-12-10 17:24] LABS: Anion Gap 4 (5-15); BUN 19 mg/dL (7-18); BUN/Creat Ratio 24.7 RATIO (10-20); Calcium,Total 9.2 mg/dL (8.5-10.1); Chloride 99 mmol/L (98-107); Creatinine, Serum 0.77 mg/dL (0.55-1.02); EST Glomerular Filtration Rate 77 mL/min (>60); Est Glom Filt Rate - Afr Amer 93 mL/min (>60); Glucose 269 mg/dL (74-106); Potassium 4.3 mmol/L (3.5-5.1); Sodium Level 133 mmol/L (136-145)
--- NOTE | 2023-12-10 18:33 | NURSING ---
Patient had temperature of 100.5 this afternoon and c/o sore throat. Did have EGD yesterday but was Covid swabbed and placed on droplet precautions but results were negative. Removed from droplet precautions. Dr. Cordova made aware and NO for UA C&S and labs. UA and C&S collected this evening and sent to lab.
[2023-12-10 20:31] VITALS: TEMP 36.7
[2023-12-10 21:48] LABS: Bedside Glucose 238 mg/dL (74-106)
[2023-12-10 22:10] VITALS: RESP 16
[2023-12-10] MEDS: Atorvastatin Calcium 40 MG Tablet PO (22:15)
[2023-12-11] MEDS: Levothyroxine 50 MCG Tablet PO (05:21)
[2023-12-11 05:55] VITALS: RESP 16
[2023-12-11 06:36] LABS: Bedside Glucose 161 mg/dL (74-106)
[2023-12-11] MEDS: Insulin Lispro 100 UNIT/ML INSULN.PEN SC ×4 (08:28→17:13)
[2023-12-11 08:30] VITALS: BP 79/47; PULSE 75; RESP 16; TEMP 35.9; O2SAT 95
[2023-12-11] MEDS: Menthol/Lanolin/Calamine/Znox 113 GM Tube 1 APPLIC TOPICAL ×2 (08:30→22:10)
[2023-12-11] MEDS: Escitalopram Oxalate 10 MG Tablet PO (08:30)
[2023-12-11] MEDS: Pantoprazole Sodium 20 MG Tablet PO ×2 (08:30→21:55)
[2023-12-11] MEDS: Aspirin E.C. 81 MG Tablet PO (08:30)
[2023-12-11] MEDS: Senna/Docusate Sodium 1 Tablet PO ×2 (08:30→21:55)
[2023-12-11] MEDS: Ferrous Gluconate 324 MG Tablet PO ×2 (08:30→17:13)
[2023-12-11] MEDS: Insulin Glargine-YFGN 100 UNIT/ML Pen 30 UNIT SC ×2 (08:31→21:56)
[2023-12-11 11:30] LABS: Bedside Glucose 424 mg/dL (74-106)
--- NOTE | 2023-12-11 11:38 | NURSING ---
Notified Dr Cordova of BS [id number], received order to give a total of 10 units of humalog
--- NOTE | 2023-12-11 13:17 | MDS.RN ---
Pain interview for MDS completed.
[2023-12-11 16:35] LABS: Bedside Glucose 276 mg/dL (74-106)
--- NOTE | 2023-12-11 16:46 | EX.PCM.PN.GI ---
Subjective Subjective Patient underwent an upper endoscopy and was discovered to have esophageal stricture that was dilated. Her biopsies displayed severe eosinophilic esophagitis. Objective Data Objective Data Vital Signs: Vital Signs Temp Pulse Resp BP Pulse Ox O2 Del Method 96.6 F L 75 16 79/47 L 95 Room Air 12/11/23 08:30 12/11/23 08:30 12/11/23 08:30 12/11/23 08:30 12/11/23 08:30 12/11/23 08:30 Oxygen Delivery Method Room Air Weight: 134 lb 9.6 oz Body Mass Index (BMI) 27.1 Intake & Output: Intake and Output for Last 24 Hours 12/09/23 12/10/23 12/11/23 23:59 23:59 23:59 Intake Total 120 / 120 1080 / 1080 600 / 600 Balance 120 / 120 1080 / 1080 600 / 600 Lab / Micro Data 12/10/23 16:55 12/10/23 16:55 Labs: Laboratory Results - last 24 hr 12/10/23 16:35: Urine Color Yellow, Urine Clarity Clear, Urine pH 6.5, Ur Specific [place] 1.015, Urine Protein Negative, Urine Glucose (UA) 1000 H, Urine Ketones Negative, Urine Occult Blood 10 H, Urine Nitrite Negative, Urine Bilirubin Negative, Urine Urobilinogen 1 H, Ur Leukocyte Esterase Negative, Urine RBC 0 SEEN, Urine WBC 0 SEEN, Ur Squamous Epith Cells 0 SEEN, Urine Bacteria 0 SEEN, Urine Mucus 0 SEEN 12/10/23 16:55: WBC 4.4, RBC 3.32 L, Hgb 9.4 L, Hct 31.7 L, MCV 95.5, MCH 28.3, MCHC 29.7 L, RDW Std Deviation 55.6 H, RDW Coeff of Nicholas 16.0 H, Plt Count 119 L, MPV 11.6, Immature Gran % (Auto) 0.500, Neut % (Auto) 77.3 H, Lymph % (Auto) 10.3 L, [place] % (Auto) 8.4, Eos % (Auto) 3.0, Baso % (Auto) 0.5, Absolute Neuts (auto) 3.4, Absolute Lymphs (auto) 0.45 L, Nucleated RBC % 0, Sodium 133 L, Potassium 4.3, Chloride 99, Carbon Dioxide 30.0, Anion Gap 4 L, BUN 19 H, Creatinine 0.77, Estim Creat Clear Calc 45.80, Est GFR (MDRD) Af Amer 93, Est GFR (MDRD) Non-Af 77, BUN/Creatinine Ratio 24.7 H, Glucose 269 H, Calcium 9.2 12/10/23 21:30: POC Glucose 238 H 12/11/23 06:15: POC Glucose 161 H 12/11/23 11:13: POC Glucose 424 H 12/11/23 16:07: POC Glucose 276 H Micro: Microbiology 12/10/23 14:37 Nasal Secretion SARS-CoV-2 Antigen (Rapid) - Final Physical Exam Const alert General Appearance: cooperative HEENT normocephalic Eyes PERRL and EOMs intact bilaterally Neck supple, no JVD and no carotid bruits Resp normal respiratory effort, normal air movement and clear to auscultation bilaterally Cardio regular rate and regular rhythm GI normal to inspection, nondistended, normoactive bowel sounds, non-tender and non-distended Extremity normal capillary refill General Extremity: Negative for edema Skin no rashes or lesions noted General Skin Exam: no breakdown Psych affect normal Appearance: appropriate Assessment & Plan Assessment/Plan (1) Dysphagia: (2) Esophageal abnormality: PLAN: Plan Findings: Abnormal motility was noted in the esophagus. The cricopharyngeus was abnormal. There are extra peristaltic waves in the esophageal body. The distal esophagus/lower esophageal sphincter is spastic, but gives up passage to the endoscope. Secondary peristaltic waves are noted. Biopsies were taken with a cold forceps for histology. Verification of patient identification for the specimen was done. Estimated blood loss was minimal. A severe Schatzki ring was found in the lower third of the esophagus. A guidewire was placed and the scope was withdrawn. Dilation was performed with a Savary dilator with no resistance at 60 Fr. The dilation site was examined and showed moderate improvement in luminal narrowing. Estimated blood loss was minimal. A large hiatal hernia was present. No other significant abnormalities were identified in a careful examination of the stomach. No gross lesions were noted in the duodenal bulb. Impression: - Abnormal esophageal motility, suspicious for esophageal spasm. - Severe Schatzki ring. Dilated. - Large hiatal hernia. - No gross lesions in the duodenal bulb. - No specimens collected. Recommendation: - Advance diet as tolerated. - Continue present medications. - Await pathology results. - Repeat upper endoscopy in 4 months for surveillance. - Use Protonix (pantoprazole) 20 mg PO BID for 3 months. -Due to her eosinophilic esophagitis she will likely need Dupixent Charges/Coding Visit Charges Inpatient E&M: 146[address] [facility] L3
[2023-12-11 21:30] LABS: Bedside Glucose 338 mg/dL (74-106)
[2023-12-11] MEDS: Atorvastatin Calcium 40 MG Tablet PO (21:55)
[2023-12-11] MEDS: Acetaminophen 325 MG Tablet 650 MG PO (22:06)
[2023-12-12] MEDS: Levothyroxine 50 MCG Tablet PO (05:58)
[2023-12-12] MEDS: Levothyroxine 25 MCG TABLET PO (05:58)
[2023-12-12 06:01] VITALS: RESP 16
[2023-12-12 06:31] LABS: Bedside Glucose 173 mg/dL (74-106)
[2023-12-12] MEDS: Insulin Lispro 100 UNIT/ML INSULN.PEN SC ×3 (09:15→17:27)
[2023-12-12] MEDS: Senna/Docusate Sodium 1 Tablet PO ×2 (09:16→22:13)
[2023-12-12] MEDS: Escitalopram Oxalate 10 MG Tablet PO (09:16)
[2023-12-12] MEDS: Menthol/Lanolin/Calamine/Znox 113 GM Tube 1 APPLIC TOPICAL ×2 (09:17→22:14)
[2023-12-12] MEDS: Aspirin E.C. 81 MG Tablet PO (09:17)
[2023-12-12] MEDS: Pantoprazole Sodium 20 MG Tablet PO ×2 (09:17→22:13)
[2023-12-12] MEDS: Ferrous Gluconate 324 MG Tablet PO ×2 (09:17→17:28)
[2023-12-12] MEDS: Insulin Glargine-YFGN 100 UNIT/ML Pen 30 UNIT SC ×2 (09:17→22:14)
[2023-12-12 10:19] VITALS: BP 106/72; PULSE 72; RESP 18; TEMP 36.9; O2SAT 96
[2023-12-12 11:28] LABS: Bedside Glucose 252 mg/dL (74-106)
--- NOTE | 2023-12-12 14:30 | CASEMGMT ---
Social Work Spoke with patient's son Salomón who lives in [place]. Salomón reports went to [facility], starting the paperwork for possible acceptance but Salomón needs access to patient's social security statements. Salomón reports [facility] has filed for emergency guardianship today on Salomón's behalf, to help this process along. Spoke with Clifford at [facility] who reports has filed the emergency guardianship paperwork, with Salomón as the intended guardian. Anticipate a hearing by Friday. Clifford reports will keep [facility] updated. Reviewed NRD for insurance as the 16 of December, so will need to keep things moving forward for a discharge plan. Plan: Pending guardianship of this patient; Disposition not yet determined/finalized. -BRIA Tuttle
--- NOTE | 2023-12-12 15:35 | CASEMGMT ---
MDS- ADMISSION AND 5 DAY ASSESSMENTS Met with patient for discharge MDS interview. Introduced to self and role. BIMS: PH9: 11/23 (little interest in things and trouble concentrating reported for several days; Feeling tired and no energy daily for the last 2 weeks). Attributes all symptoms related to being in the hospital. Denies any feelings of social isolation, discussing her cat as helping with this. No behaviors or signs of delirium noted during assessment interview. -BRIA Tuttle
[2023-12-12 16:41] LABS: Bedside Glucose 307 mg/dL (74-106)
[2023-12-12 22:05] LABS: Bedside Glucose 249 mg/dL (74-106)
[2023-12-12] MEDS: Atorvastatin Calcium 40 MG Tablet PO (22:13)
[2023-12-13] MEDS: Levothyroxine 50 MCG Tablet PO (05:38)
[2023-12-13 06:24] LABS: Bedside Glucose 201 mg/dL (74-106)
[2023-12-13] MEDS: Insulin Lispro 100 UNIT/ML INSULN.PEN SC ×2 (08:07→11:59)
[2023-12-13] MEDS: Insulin Glargine-YFGN 100 UNIT/ML Pen 30 UNIT SC (08:08)
[2023-12-13] MEDS: Aspirin E.C. 81 MG Tablet PO (08:08)
[2023-12-13] MEDS: Ferrous Gluconate 324 MG Tablet PO ×2 (08:08→17:56)
[2023-12-13] MEDS: Escitalopram Oxalate 10 MG Tablet PO (08:09)
[2023-12-13] MEDS: Pantoprazole Sodium 20 MG Tablet PO ×2 (08:09→21:42)
[2023-12-13] MEDS: Senna/Docusate Sodium 1 Tablet PO ×2 (08:09→21:42)
[2023-12-13] MEDS: Menthol/Lanolin/Calamine/Znox 113 GM Tube 1 APPLIC TOPICAL ×2 (08:18→21:42)
[2023-12-13 11:31] LABS: Bedside Glucose 322 mg/dL (74-106)
[2023-12-13 14:13] VITALS: BP 114/59; PULSE 86; RESP 18; TEMP 36.3; O2SAT 98
--- NOTE | 2023-12-13 15:42 | NURSING ---
dr murrell notified of pt not having BM since 12/07, new order for PRN mag citrate & daily miralax.
--- NOTE | 2023-12-13 16:28 | NURSING ---
Patient has been constipated. Dr. Cordova made aware and NO for PRN Magnesium Citrate and daily Miralax. Humalog also increased to 10 units today and Glargine increased to 35 units. Patient made aware.
[2023-12-13 16:45] LABS: Bedside Glucose 237 mg/dL (74-106)
[2023-12-13] MEDS: Insulin Lispro 100 UNIT/ML INSULN.PEN 10 UNIT SC (17:50)
[2023-12-13] MEDS: Magnesium Citrate 300 ML PO (17:54)
[2023-12-13] MEDS: Insulin Glargine-YFGN 100 UNIT/ML Pen 35 UNIT SC (21:40)
[2023-12-13] MEDS: Atorvastatin Calcium 40 MG Tablet PO (21:42)
[2023-12-13 21:52] LABS: Bedside Glucose 262 mg/dL (74-106)
[2023-12-14 06:25] LABS: Bedside Glucose 189 mg/dL (74-106)
[2023-12-14] MEDS: Levothyroxine 50 MCG Tablet PO (06:36)
[2023-12-14 08:00] VITALS: BP 90/58; PULSE 80; RESP 16; TEMP 36.5; O2SAT 100
[2023-12-14] MEDS: Insulin Lispro 100 UNIT/ML INSULN.PEN 10 UNIT SC ×3 (08:02→17:50)
[2023-12-14] MEDS: Insulin Glargine-YFGN 100 UNIT/ML Pen 35 UNIT SC ×2 (08:03→21:17)
[2023-12-14] MEDS: Ferrous Gluconate 324 MG Tablet PO ×2 (08:03→17:50)
[2023-12-14] MEDS: Aspirin E.C. 81 MG Tablet PO (08:03)
[2023-12-14] MEDS: Escitalopram Oxalate 10 MG Tablet PO (08:04)
[2023-12-14] MEDS: Senna/Docusate Sodium 1 Tablet PO ×2 (08:04→21:10)
[2023-12-14] MEDS: Pantoprazole Sodium 20 MG Tablet PO ×2 (08:04→21:10)
[2023-12-14] MEDS: Polyethylene Glycol 3350 17 GM PACKET PO (08:04)
[2023-12-14] MEDS: Menthol/Lanolin/Calamine/Znox 113 GM Tube 1 APPLIC TOPICAL ×2 (08:05→21:09)
[2023-12-14 11:42] LABS: Bedside Glucose 190 mg/dL (74-106)
[2023-12-14] MEDS: Tuberculin,Purif.prot.deriv. 50 TU/ML Vial 0.1 ML ID (12:24)
--- NOTE | 2023-12-14 12:33 | NURSING ---
pt c/o still hungry after eating 1/2 sandwich & sm cup fruit. dietary notified & sending BLT. message left with junior automation engineer regarding pt being hungry after meals
--- NOTE | 2023-12-14 14:41 | NURSING ---
last documented BM 12/07, pt has had mag citrate, BS hyperactive x4, abdomen soft, nontender, passing flatus. pt refusing SSE or drinking mag citrate. miralax started. pt reports having BMs every day. will continue to monitor.
[2023-12-14 16:05] VITALS: PULSE 54; RESP 16; O2SAT 96
[2023-12-14 16:26] LABS: Bedside Glucose 202 mg/dL (74-106)
--- NOTE | 2023-12-14 20:47 | NURSING ---
Patient incontinent of large amounts of urine frequently and throughout the night, wetting the bed. Patient states she did this at home and would wrap a shower curtain around in bed. Consulted Dr. Cordova via telephone, N.O. for Tolterodine PO 2mg QHS, first dose starting now. Order read-back and verified.
[2023-12-14] MEDS: Magnesium Citrate 300 ML PO (21:02)
[2023-12-14] MEDS: Tolterodine Tartrate 2 MG CAP.SA PO (21:07)
[2023-12-14] MEDS: Atorvastatin Calcium 40 MG Tablet PO (21:09)
[2023-12-14 21:42] LABS: Bedside Glucose 269 mg/dL (74-106)
[2023-12-15 05:42] LABS: Absolute Lymphocyte Count 1.13 X10^3/uL (0.83-4.51); Absolute Neutrophil Count 2.1 X10^3/uL (2.0-7.7); Basophil# 0.02 X10^3/uL; Basophil% 0.5 % (0-1); Eosinophil# 0.18 X10^3/uL; Eosinophils% 4.7 % (0-5); Hematocrit 31.8 % (37-47); Hemoglobin 9.6 g/dL (12.0-15.0); Lymphocyte # 1.13 X10^3/ul (0.83-4.51); Lymphocyte % 29.7 % (19-41); Mean Corp Hgb Conc 30.2 g/dL (32-36); Mean Corpuscular Hgb 28.8 pg (27.0-32.0); Mean Corpuscular Volume 95.5 fL (81-99); Mean Platelet Vol. 11.5 fl (6.2-12.0); Monocyte# 0.33 X10^3/uL; Monocyte% 8.7 % (0-10); NRBC Flagged by Analyzer 0 % (0-5); Neutrophil # 2.13 X10^3/uL (2.7-7.7); Neutrophil % 55.9 % (47-70); Platelet Count 133 K/mm3 (150-450); RBC Distribution Width CV 16.2 % (11.6-14.6); RBC Distribution Width SD 57.1 fl (35.1-43.9); Red Blood Count 3.33 M/mm3 (4.2-5.4); White Blood Count 3.8 K/mm3 (4.4-11.0)
[2023-12-15 05:56] LABS: Anion Gap 5 (5-15); BUN 23 mg/dL (7-18); BUN/Creat Ratio 32.2 RATIO (10-20); Calcium,Total 9.2 mg/dL (8.5-10.1); Chloride 107 mmol/L (98-107); Creatinine, Serum 0.72 mg/dL (0.55-1.02); EST Glomerular Filtration Rate 83 mL/min (>60); Est Glom Filt Rate - Afr Amer 101 mL/min (>60); Glucose 171 mg/dL (74-106); Potassium 3.9 mmol/L (3.5-5.1); Sodium Level 140 mmol/L (136-145)
[2023-12-15] MEDS: Levothyroxine 50 MCG Tablet PO (06:09)
[2023-12-15] MEDS: Levothyroxine 25 MCG TABLET PO (06:09)
[2023-12-15 06:10] VITALS: RESP 15
[2023-12-15 06:35] LABS: Bedside Glucose 128 mg/dL (74-106)
[2023-12-15] MEDS: Insulin Lispro 100 UNIT/ML INSULN.PEN 10 UNIT SC ×3 (08:03→17:41)
[2023-12-15] MEDS: Polyethylene Glycol 3350 17 GM PACKET PO (08:08)
[2023-12-15] MEDS: Pantoprazole Sodium 20 MG Tablet PO ×2 (08:08→22:12)
[2023-12-15] MEDS: Escitalopram Oxalate 10 MG Tablet PO (08:08)
[2023-12-15] MEDS: Ferrous Gluconate 324 MG Tablet PO ×2 (08:08→17:41)
[2023-12-15] MEDS: Insulin Glargine-YFGN 100 UNIT/ML Pen 35 UNIT SC ×2 (08:08→22:12)
[2023-12-15] MEDS: Aspirin E.C. 81 MG Tablet PO (08:08)
[2023-12-15] MEDS: Senna/Docusate Sodium 1 Tablet PO ×2 (08:08→22:12)
[2023-12-15] MEDS: Menthol/Lanolin/Calamine/Znox 113 GM Tube 1 APPLIC TOPICAL ×2 (08:09→22:11)
--- NOTE | 2023-12-15 08:27 | NURSING ---
Actuary Manager Note; MDS for 12/13/2023 Complete
--- NOTE | 2023-12-15 09:50 | RAD_ITS ---
STUDY: X-RAY - ABDOMEN/PELVIS REASON FOR EXAM: Female, 78 years old. Abdominal pain and constipation. TECHNIQUE: Single AP view of the abdomen / pelvis. COMPARISON: None. FINDINGS: A moderate amount of fecal material is seen in the left hemicolon and rectum. The visualized liver, spleen and kidneys are grossly normal in size and morphology. Normal soft tissue structures. There are diffuse degenerative changes of the visualized lumbar spine. Mild levoscoliosis. RAD/Abdomen Single View IMPRESSION: Moderate amount of fecal material is seen in the left hemicolon and rectum. Electronically Signed: Eduardo Toth MD at 10:59 EDT ,
[2023-12-15 11:22] LABS: Bedside Glucose 203 mg/dL (74-106)
[2023-12-15 15:00] VITALS: BP 109/62; PULSE 84; RESP 16; TEMP 36.5; O2SAT 96
[2023-12-15 16:40] LABS: Bedside Glucose 280 mg/dL (74-106)
[2023-12-15] MEDS: Tolterodine Tartrate 2 MG CAP.SA PO (22:12)
[2023-12-15] MEDS: Atorvastatin Calcium 40 MG Tablet PO (22:12)
[2023-12-15 22:28] LABS: Bedside Glucose 185 mg/dL (74-106)
[2023-12-16] MEDS: Levothyroxine 50 MCG Tablet PO (05:37)
[2023-12-16 05:45] VITALS: PULSE 70
[2023-12-16 06:18] LABS: Bedside Glucose 81 mg/dL (74-106)
[2023-12-16] MEDS: Insulin Lispro 100 UNIT/ML INSULN.PEN 10 UNIT SC ×3 (09:02→18:03)
[2023-12-16] MEDS: Polyethylene Glycol 3350 17 GM PACKET PO (09:02)
[2023-12-16] MEDS: Aspirin E.C. 81 MG Tablet PO (09:03)
[2023-12-16] MEDS: Insulin Glargine-YFGN 100 UNIT/ML Pen 35 UNIT SC ×2 (09:03→21:48)
[2023-12-16] MEDS: Escitalopram Oxalate 10 MG Tablet PO (09:03)
[2023-12-16] MEDS: Pantoprazole Sodium 20 MG Tablet PO ×2 (09:03→21:47)
[2023-12-16] MEDS: Senna/Docusate Sodium 1 Tablet PO ×2 (09:03→21:47)
[2023-12-16] MEDS: Ferrous Gluconate 324 MG Tablet PO ×2 (09:04→18:03)
[2023-12-16] MEDS: Menthol/Lanolin/Calamine/Znox 113 GM Tube 1 APPLIC TOPICAL ×2 (09:07→21:49)
[2023-12-16 10:06] VITALS: BMI 28.1
[2023-12-16 10:44] VITALS: BP 94/53; PULSE 78; RESP 16; TEMP 36.4; O2SAT 96
[2023-12-16 11:25] LABS: Bedside Glucose 241 mg/dL (74-106)
--- NOTE | 2023-12-16 16:33 | CASEMGMT ---
Social Work LESLI spoke with Amber at [facility]. A guardianship hearing has not yet been scheduled for pt. Amber states she needs original statement of expert evaluation prior to setting hearing. Amber to [facility] and provided with needed paper and will let this blog writer know when guardianship hearing is scheduled. Pt requesting to discharge home tomorrow. LESLI met with pt and spent time discussing discharge plan. SW informing pt that insurance update is due tomorrow but that pt will not discharge tomorrow. If pt is issued a NOMNC tomorrow, she will not dc until Friday. Pt expressing understanding. SW broached the topic of dc plans. Pt is aware her son would like her to move to a facility in [place] and pt states she is willing to do this but must go home first and sell her house. SW attempted to discuss with pt the difficulty with this plan and that pt would have great difficulty getting her home ready to sell on her own. LESLI spoke with pt regarding going from TCU to a ECF in [place] until her son is able to work out details of ECF in [place] and until he can assist her in selling her home. At this time pt is refusing to go to local ECF and feels she is perfectly safe to return home. Pt in not able to accurately process safety concerns with being home alone nor is she able to admit that she cannot safely care for herself or that her home is not in safe living condition. LESLI will continue to follow for support and dc planning. IRA Tellez
[2023-12-16 17:06] LABS: Bedside Glucose 212 mg/dL (74-106)
[2023-12-16 21:48] LABS: Bedside Glucose 165 mg/dL (74-106)
[2023-12-16] MEDS: Tolterodine Tartrate 4 MG CAP.SA PO (21:48)
[2023-12-16] MEDS: Atorvastatin Calcium 40 MG Tablet PO (21:48)
[2023-12-17] MEDS: Levothyroxine 25 MCG TABLET PO (06:10)
[2023-12-17] MEDS: Levothyroxine 50 MCG Tablet PO (06:10)
[2023-12-17 06:29] LABS: Bedside Glucose 64 mg/dL (74-106)
[2023-12-17] MEDS: Pantoprazole Sodium 20 MG Tablet PO ×2 (08:05→21:32)
[2023-12-17] MEDS: Ferrous Gluconate 324 MG Tablet PO ×2 (08:05→18:02)
[2023-12-17] MEDS: Aspirin E.C. 81 MG Tablet PO (08:05)
[2023-12-17] MEDS: Senna/Docusate Sodium 1 Tablet PO ×2 (08:05→21:33)
[2023-12-17] MEDS: Escitalopram Oxalate 10 MG Tablet PO (08:06)
[2023-12-17] MEDS: Menthol/Lanolin/Calamine/Znox 113 GM Tube 1 APPLIC TOPICAL ×2 (08:07→21:32)
[2023-12-17] MEDS: Insulin Glargine-YFGN 100 UNIT/ML Pen 35 UNIT SC ×2 (08:07→21:31)
[2023-12-17 11:21] LABS: Bedside Glucose 262 mg/dL (74-106)
[2023-12-17] MEDS: Insulin Lispro 100 UNIT/ML INSULN.PEN SC ×2 (12:01→18:00)
[2023-12-17 13:54] VITALS: BP 121/60; PULSE 74; RESP 18; TEMP 36.6; O2SAT 97
[2023-12-17 16:30] LABS: Bedside Glucose 259 mg/dL (74-106)
--- NOTE | 2023-12-17 17:28 | CASEMGMT ---
Social Work Insurance issued NOMNC with last covered day in TCU on 12/19 and discharge on 12/20. NOMNC presented to pt and signed. Pt agreeable to stay in TCU until Friday. Pt requesting to go home at that time. LESLI spoke with pt regarding safety concerns with returning home and pt is not accepting of this reasoning. LESLI spoke with Kat at [facility]. Kat states Medicaid application has been started and pt has a pending Medicaid number ([id number]). Pt will need to be in a hospital or ECF for 30 days without a return home for Medicaid to cover the cost of ECF. (Pt would need to be at ECF until 01/01). Phone call to pt's son Salomón to discuss dc plan. Salomón notified of NOMNC and dc on 12/20. LESLI presented options of pt going to local ECF until Salomón can work out transfer to facility in [place], although LESLI did inform Salomón that pt is not agreeable to this and at this time is own person and requesting to go home. Salomón feels best option for pt is to go to local ECF from TCU. Amber with APS is working on emergency Guardianship naming Salomón as Guardian. If Guardianship is granted to Salomón before Friday, Salomón will be pt's decision maker and will require pt to go to ECF. Public offices are closed today due to national holiday and therefore no work has been done today on Guardianship. LESLI will follow up tomorrow. Salomón is working on permanently getting pt to a facility in [facility]. Salomón requesting referral be made there to assist with transfer. LESLI will call [facility] and assist with information. LESLI spoke with Salomón regarding local ECF placement until transfer to [place] can happen. [facility]. [facility]ón states if [facility] cannot accept pt, he would like any local facility that can accept. Referral sent to [facility], will await determination of acceptance. Salomón is requesting financial POA so he can get records for financial. LESLI informed Salomón that financial POA will need to be done through an assistant county attorney. Salomón states he will call an assistant county attorney tomorrow to work on this. LESLI to continue to follow for dc planning. IRA Tellez
--- NOTE | 2023-12-17 20:53 | DS.PCM_ITS ---
Providers Date of Admission: 12/06/23 Primary Care Physician: Dr. Pavithra Presley MD Consultations 12/06/23 17:02 Consult: Gastroenterology Routine Consulting Provider: [facility] Reason for Consult: Esophageal retetion on MBS. EMERGENT Consult: No MD Notified: Yes Date Notified: 12/08/23 Time Notified: 09:40 Method of Notification: Text Reason For Visit: METABOLIC ENCEPHALOPATHY, SEVERE HYPERGLYCEMIA Diagnosis Discharge Diagnosis (1) Dysphagia: Status: Acute Code(s): R13.10 - Dysphagia, unspecified (2) Esophageal abnormality: Status: Acute Code(s): K22.9 - Disease of esophagus, unspecified Plan 78 year old female with below past medical history hospitalized for acute encephalopathy 2/2 hyperglycemia, complicated by dysphagia, esophageal retention, admitted to TCU with debility, here for rehabilitation, strengthening, prior to discharge home alone. * Debility - PT/OT. * Pain - Tylenol 1000mg q6 prn pain (1-10). * Bowel - senna/colace 1 tablet bid. * Adult immunization - Administer pneumonia vaccine, covid vaccine, flu vaccine as appropriate. * DVT prophylaxis - Hold, anemia. * CV prophylaxis - Aspirin 81mg daily. * Hyperlipidemia - Atorvastatin 40mg qhs. * Depression - Lexapro 10mg daily, stable chronic halfway use, GDR not recommended. * Iron deficiency anemia - Ferrous gluconate 324mg bidcm. * Diabetes Mellitus II - Glargine 30 units bid. * Hypothyroidism - Levothyroxine 25mcg/50mcg alternating. * Insomnia - Melatonin 3mg qhs prn. * Skin irritation - Calmoseptine topical bid. * GERD - Pantoprazole 40mg daily. * Esophageal retention - Consult Dr. Alarcon. Medications at Discharge Home Medications levothyroxine 50 mcg tablet 50 mcg PO DAILY thyroid 06/07/14 aspirin 81 mg tablet,delayed release 81 mg PO DAILY@0800 cad 05/28/19 atorvastatin 40 mg tablet 40 mg PO QHS CHOLESTEROL 05/28/19 escitalopram oxalate 10 mg tablet 10 mg PO DAILY DEPRESS 05/28/19 levothyroxine 25 mcg tablet 25 mcg PO .MWF thyroid 08/09/23 acetaminophen 325 mg tablet 650 mg (2 x 325 mg) PO Q6H PRN PRN Pain 1-10 Or Fever>100.7 #0 tabs 12/06/23 melatonin 3 mg tablet 3 mg PO QHS PRN PRN Insomnia #0 tabs 12/06/23 menthol 0.44 %-zinc oxide 20.6 % topical ointment (Calmoseptine) 1 applic topical BID redness 12/06/23 ferrous gluconate 324 mg (37.5 mg iron) tablet 324 mg PO BIDCM #0 tabs 12/17/23 insulin glargine-yfgn 100 unit/mL (3 mL) subcutaneous pen 35 unit (0.35 mL) subcut BID #0 mL 12/17/23 insulin lispro 100 unit/mL subcutaneous pen (Humalog KwikPen (U-100) Insulin) 5 unit (0.05 mL) subcut TIDAC #0 mL 12/17/23 magnesium citrate 300 ml PO DAILY PRN constipation #0 mL 12/17/23 pantoprazole 20 mg tablet,delayed release 20 mg PO BID #0 tabs 12/17/23 sennosides 8.6 mg-docusate sodium 50 mg tablet (Stool Softener-Stimulant Laxative) 1 tab PO BID #0 tabs 12/17/23 tolterodine 4 mg capsule,extended release 24 hr 4 mg PO QHS #0 caps 12/17/23 Hospital Course Operations None Procedures EGD Summary of Care Provided Minutes Spent on Discharge: 35 Hospital Course: 78 year old female with below past medical history hospitalized for acute encephalopathy 2/2 hyperglycemia, complicated by dysphagia, esophageal retention, admitted to TCU with debility, here for rehabilitation, strengthening, prior to discharge home alone. 12/09/2023 Dr. Alarcon EGD: Impressions : - Abnormal esophageal motility, suspicious for esophageal spasm. - Severe Schatzki ring. Dilated. - Large hiatal hernia. - No gross lesions in the duodenal bulb. - No specimens collected. Discharge to [facility] 12/21/2023, intermediate, part B therapies. Physical Exam Const alert General Appearance: cooperative HEENT normocephalic Eyes PERRL and EOMs intact bilaterally Neck supple, no JVD and no carotid bruits Resp normal respiratory effort, normal air movement and clear to auscultation bilaterally Cardio regular rate and regular rhythm GI normal to inspection, nondistended, normoactive bowel sounds, non-tender and non-distended Extremity normal capillary refill General Extremity: Negative for edema Skin no rashes or lesions noted General Skin Exam: no breakdown Psych affect normal Appearance: appropriate Weight / BMI Weight Weight: 63.276 kg Body Mass Index (BMI) 28.1 ABG / Lab / Microbiology Data 12/15/23 05:15 12/15/23 05:15 Laboratory: Laboratory Results - last 24 hr 12/16/23 21:31: POC Glucose 165 H 12/17/23 06:03: POC Glucose 64 L 12/17/23 11:00: POC Glucose 262 H 12/17/23 16:10: POC Glucose 259 H Microbiology: Microbiology 12/10/23 16:35 Urine, Catheterized Urine Culture - Final Culture exhibits no growth. 12/12/23 05:54 Nasal Secretion SARS-CoV-2 Antigen (Rapid) - Final 12/10/23 14:37 Nasal Secretion SARS-CoV-2 Antigen (Rapid) - Final D/C Instructions Discharge Diet: No restrictions Discharge Activity: Return to Normal Activity, May Shower and Use Walker Weight Bearing Status: Weight bearing as tolerated Call your doctor if you observe: Fever of 101 or Higher, Inability to urinate, Inability to have a bowel movement, Shortness of breath, Dizziness, Fainting spells, Swelling in the ankles, Chest pain and Uncontrolled pain Additional Instructions: Discharge to [facility] 12/21/2023, intermediate, part B therapies. Meaningful Use Info Meaningful Use Meaningful Use Diagnoses (Choose all that apply): None applicable Ischemic Stroke Statin Dosing Therapy Reference: STATIN DOSE THERAPY REFERENCE: * Patients > 75 years receive moderate or high dose statin therapy. * Patients 75 years or YOUNGER should receive HIGH intensity statin dose unless contraindicated. You will be required to document reason for non-treatment if statin daily dose does not meet guidelines. HIGH DOSE STATIN THERAPY DAILY Atorvastatin > than or = to 40 mg Rosuvastatin > than or = to 20 mg Amlodipine + Atorvastatin > than or = to 2.5/40 mg Ezetimibe + Simvastatin 10/80 mg Simvastatin 80mg Discharge Plan Admission Admit Date/Time: 12/06/23 13:15 Primary Reason for Your Visit: Debility. Attending Provider: Rubin Cordova Chi Primary Care Provider: Pavithra Presley Instructions Additional Instructions / Restrictions: Discharge to [facility] 12/21/2023, intermediate, part B therapies. Discharge Orders/Prescriptions Prescriptions: New tolterodine 4 mg Capsule,Extended Release 24hr 4 mg PO QHS Qty: 0 0RF sennosides-docusate sodium [Stool Softener-Stimulant Laxat] 8.6-50 mg Tablet 1 tab PO BID Qty: 0 0RF pantoprazole 20 mg Tablet,Delayed Release (Dr/Ec) 20 mg PO BID Qty: 0 0RF magnesium citrate Solution 300 ml PO DAILY PRN (Reason: constipation) Qty: 0 0RF insulin lispro [Humalog KwikPen Insulin] 100 unit/mL Insulin Pen 5 unit subcut TIDAC Qty: 0 0RF ferrous gluconate 324 mg (37.5 mg iron) Tablet 324 mg PO BIDCM Qty: 0 0RF insulin glargine-yfgn 100 unit/mL (3 mL) Insulin Pen 35 unit subcut BID Qty: 0 0RF Continued levothyroxine 50 MCG tablet 50 mcg PO DAILY Patient Comments: THYROID MEDICATION atorvastatin 40 MG tablet 40 mg PO QHS aspirin 81 MG tablet 81 mg PO DAILY@0800 escitalopram oxalate 10 MG tablet 10 mg PO DAILY levothyroxine 25 mcg tablet 25 mcg PO .MWF Patient Comments: in addition to the 50mcg. so total of 75mcg on MWF acetaminophen 325 mg Tablet 650 mg PO Q6H PRN PRN (Reason: Pain 1-10 Or Fever>100.7) Qty: 0 0RF melatonin 3 mg Tablet 3 mg PO QHS PRN PRN (Reason: Insomnia) Qty: 0 0RF menthol-zinc oxide [Calmoseptine] 0.44-20.6 % Ointment 1 applic topical BID Protocol: *Topical Application Instructions APPLICATION INSTRUCTIONS: apply to buttock Rx Instructions: Apply to bilat buttocks Discontinued pantoprazole 40 MG tablet 40 mg PO BREAKFAST Patient Comments: TAKE ON EMPTY STOMACH, 1/2HR BEFORE MEAL -ACID REFLUX ferrous gluconate 236 MG tablet 65 mg PO BID insulin lispro [Humalog KwikPen Insulin] 100 unit/mL Insulin Pen See Protocol subcut ACHS Qty: 0 0RF Protocol: 1. Sliding Scale Insulin Low Dosing Condition: 150-224 mg/dl = 1 unit Condition: 225-299 mg/dl = 2 units Condition: 300-374 mg/dl = 3 units Condition: 375-449 mg/dl = 4 units Condition: Greater than 449 call physician Protocol Text: - Use for Total Daily Dose of Insulin 15-27 units - Thin, elderly, renal patients LOW DOSING ALGORITHM insulin glargine-yfgn 100 unit/mL (3 mL) Insulin Pen 30 unit subcut BID Qty: 0 0RF Referrals / Follow Up: Pavithra Presley MD [Primary Care Provider] - Disposition Disposition (needs filled in before D/C Order can be placed): NonSkilled NH/Intermed Care
--- NOTE | 2023-12-17 20:59 | PCM.TXEXTCAR ---
Diet Diet Order/Speech Therapy: 12/09/23 18:05 Diet: Consistent Carb - Calorie Controlled Food consistency:: Regular Liquid Consistency:: Regular/Thin Type of Dietary Supplement:: GS 120 ml tid - no blanca Is pt able to select menu?: Yes Diet Comments: DOUBLE PROTEIN/MEAT on trays; [place] or vanilla Glucerna 120mL 3x daily How many daily calories?: 1800 calorie Routine Orders/Code Status Code Status: DNRCC-A (No intubation.) Wound(s) Right Elbow: Wound Type: Scab Therapies Weight Bearing: Weight bearing as tolerated Extremity Affected:: Bilateral Lower Physical Therapy: Eval and Treat Occupational Therapy: Eval and Treat Speech Therapy: Eval and Treat Problem/Diagnosis (1) Dysphagia: Status: Acute Code(s): R13.10 - Dysphagia, unspecified (2) Esophageal abnormality: Status: Acute Code(s): K22.9 - Disease of esophagus, unspecified Plan 78 year old female with below past medical history hospitalized for acute encephalopathy 2/2 hyperglycemia, complicated by dysphagia, esophageal retention, admitted to TCU with debility, here for rehabilitation, strengthening, prior to discharge home alone. Debility - PT/OT. Pain - Tylenol 1000mg q6 prn pain (1-10). Bowel - senna/colace 1 tablet bid. Adult immunization - Administer pneumonia vaccine, covid vaccine, flu vaccine as appropriate. DVT prophylaxis - Hold, anemia. CV prophylaxis - Aspirin 81mg daily. Hyperlipidemia - Atorvastatin 40mg qhs. 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 Iron deficiency anemia - Ferrous gluconate 324mg bidcm. Diabetes Mellitus II - Glargine 30 units bid. Hypothyroidism - Levothyroxine 25mcg/50mcg alternating. Insomnia - Melatonin 3mg qhs prn. Skin irritation - Calmoseptine topical bid. GERD - Pantoprazole 40mg daily. Esophageal retention - Consult Dr. Alarcon. Allergies/Procedures Done in Hospital Allergies venlafaxine HCl (From Effexor) Allergy (Verified 12/09/23 14:33) Rash CHEST BROKE OUT, GOT REAL DIZZY. meclizine Adverse Reaction (Verified 12/09/23 14:33) Other PT BECAME EXTREMELY FATIGUED & WAS UNABLE TO WALK AFTER TAKING 12.5MG OF MECLIZINE. Procedures: EGD Type of Care/Length of Stay Estimated LOS: Convalescent Care Less Than 30 days Type of Care Needed: Intermediate Rehab Potential: Fair Prognosis: Fair Additional Orders/Day of Discharge Day of Discharge: 12/21/23 Dietary and Speech Recommendations Dietitian Recommendations/Changes: Continue 1800 cho controlled diet w/ double meat portions to manage medical conditions and help maintain stable weight. Texture/consistency per MANUFACTURING LAB TECHNICIAN Change Glucerna Shake to 120 ml tid w/ meals. Discharge Plan Admission Admit Date/Time: 12/06/23 13:15 Primary Reason for Your Visit: Debility. Attending Provider: Rubin Cordova Chi Primary Care Provider: Pavithra Presley Instructions Additional Instructions / Restrictions: [facility]charge to [facility] 12/21/2023, intermediate, part B therapies. Discharge Orders/Prescriptions Prescriptions: New tolterodine 4 mg Capsule,Extended Release 24hr 4 mg PO QHS Qty: 0 0RF sennosides-docusate sodium [Stool Softener-Stimulant Laxat] 8.6-50 mg Tablet 1 tab PO BID Qty: 0 0RF pantoprazole 20 mg Tablet,Delayed Release (Dr/Ec) 20 mg PO BID Qty: 0 0RF magnesium citrate Solution 300 ml PO DAILY PRN (Reason: constipation) Qty: 0 0RF insulin lispro [Humalog KwikPen Insulin] 100 unit/mL Insulin Pen 5 unit subcut TIDAC Qty: 0 0RF ferrous gluconate 324 mg (37.5 mg iron) Tablet 324 mg PO BIDCM Qty: 0 0RF insulin glargine-yfgn 100 unit/mL (3 mL) Insulin Pen 35 unit subcut BID Qty: 0 0RF Continued levothyroxine 50 MCG tablet 50 mcg PO DAILY Patient Comments: THYROID MEDICATION atorvastatin 40 MG tablet 40 mg PO QHS aspirin 81 MG tablet 81 mg PO DAILY@0800 escitalopram oxalate 10 MG tablet 10 mg PO DAILY levothyroxine 25 mcg tablet 25 mcg PO .[facility] Patient Comments: in addition to the 50mcg. so total of 75mcg on MWF acetaminophen 325 mg Tablet 650 mg PO Q6H PRN PRN (Reason: Pain 1-10 Or Fever>100.7) Qty: 0 0RF melatonin 3 mg Tablet 3 mg PO QHS PRN PRN (Reason: Insomnia) Qty: 0 0RF menthol-zinc oxide [Calmoseptine] 0.44-20.6 % Ointment 1 applic topical BID Protocol: *Topical Application Instructions APPLICATION INSTRUCTIONS: apply to buttock Rx Instructions: Apply to bilat buttocks Discontinued pantoprazole 40 MG tablet 40 mg PO BREAKFAST Patient Comments: TAKE ON EMPTY STOMACH, 1/2HR BEFORE MEAL -ACID REFLUX ferrous gluconate 236 MG tablet 65 mg PO BID insulin lispro [Humalog KwikPen Insulin] 100 unit/mL Insulin Pen See Protocol subcut ACHS Qty: 0 0RF Protocol: 1. Sliding Scale Insulin Low Dosing Condition: 150-224 mg/dl = 1 unit Condition: 225-299 mg/dl = 2 units Condition: 300-374 mg/dl = 3 units Condition: 375-449 mg/dl = 4 units Condition: Greater than 449 call physician Protocol Text: - Use for Total Daily Dose of Insulin 15-27 units - Thin, elderly, renal patients LOW DOSING ALGORITHM insulin glargine-yfgn 100 unit/mL (3 mL) Insulin Pen 30 unit subcut BID Qty: 0 0RF Referrals / Follow Up: Pavithra Presley MD [Primary Care Provider] - Disposition Disposition (needs filled in before D/C Order can be placed): NonSkilled NH/Intermed Care
[2023-12-17] MEDS: Tolterodine Tartrate 4 MG CAP.SA PO (21:32)
[2023-12-17] MEDS: Atorvastatin Calcium 40 MG Tablet PO (21:32)
[2023-12-17 21:39] LABS: Bedside Glucose 301 mg/dL (74-106)
[2023-12-18] MEDS: Levothyroxine 50 MCG Tablet PO (05:48)
[2023-12-18 06:35] LABS: Bedside Glucose 133 mg/dL (74-106)
[2023-12-18] MEDS: Insulin Lispro 100 UNIT/ML INSULN.PEN SC ×4 (08:53→17:35)
[2023-12-18] MEDS: Senna/Docusate Sodium 1 Tablet PO ×2 (08:54→22:11)
[2023-12-18] MEDS: Aspirin E.C. 81 MG Tablet PO (08:54)
[2023-12-18] MEDS: Ferrous Gluconate 324 MG Tablet PO ×2 (08:54→17:33)
[2023-12-18] MEDS: Escitalopram Oxalate 10 MG Tablet PO (08:54)
[2023-12-18] MEDS: Pantoprazole Sodium 20 MG Tablet PO ×2 (08:54→22:10)
[2023-12-18] MEDS: Menthol/Lanolin/Calamine/Znox 113 GM Tube 1 APPLIC TOPICAL ×2 (08:58→22:09)
--- NOTE | 2023-12-18 09:29 | CASEMGMT ---
Addendum entered by Ani Nichols 12/18/23 16:16: Social [facility] is not able to accept pt. Referral sent to [facility]. They may be able to accept pt pending financial information. LESLI spoke with Kat at [facility] and financial information that she has was provided to [facility]. Awaiting determination of acceptance. LESLI spoke with Bebe at [facility] and clinical information faxed to facilitate admission to this nursing facility once pt's son makes final arrangements. LESLI has not yet heard back from Amber at [facility] regarding guardianship. LESLI met with pt and discussed dc plan. Pt asking what the plan was and SW explained that pt would stay here until Friday and that [facility] cannot accept. SW informed that [facility] is considering acceptance. Pt verbalizing understanding that everyone wants her to go to a correction and that no one thinks she is safe to return home. SW validated this information. Pt frustrated but seems resigned that she will go to [facility]. Email sent to pt's son Salomón updating on the above information. IRA Tellez Original Note: Social Work Per physician, pt is agreeable to [facility]. Referral sent, awaiting determination of acceptance. LESLI spoke with Amber with [facility] who states additional information is needed from physician prior to the Guardianship papers being files with the court. Physician updated and documents completed. SW updated Amber who will pick documents up today and submit request for emergency guardianship today. VM left for Bebe at [facility] to assist pt son with referral to this facility. Will await return call. IRA Tellez
[2023-12-18 09:30] VITALS: BP 110/62; PULSE 81; RESP 16; TEMP 36.3; O2SAT 98
[2023-12-18] MEDS: Insulin Glargine-YFGN 100 UNIT/ML Pen 35 UNIT SC ×2 (10:54→22:10)
--- NOTE | 2023-12-18 11:28 | MDS.RN ---
Information for the MDS was obtained from review of the clinical record, interview of resident, staff, and direct observation of resident?s care.
[2023-12-18 12:12] LABS: Bedside Glucose 237 mg/dL (74-106)
[2023-12-18 16:18] LABS: Bedside Glucose 356 mg/dL (74-106)
[2023-12-18 22:04] LABS: Bedside Glucose 249 mg/dL (74-106)
[2023-12-18] MEDS: Atorvastatin Calcium 40 MG Tablet PO (22:10)
[2023-12-18] MEDS: Tolterodine Tartrate 4 MG CAP.SA PO (22:11)
[2023-12-19] MEDS: Levothyroxine 25 MCG TABLET PO (05:08)
[2023-12-19] MEDS: Levothyroxine 50 MCG Tablet PO (05:08)
[2023-12-19 06:44] LABS: Bedside Glucose 78 mg/dL (74-106)
--- NOTE | 2023-12-19 09:21 | MDS.RN ---
MDS pain interview complete.
[2023-12-19] MEDS: Ferrous Gluconate 324 MG Tablet PO ×2 (09:27→18:20)
[2023-12-19] MEDS: Insulin Lispro 100 UNIT/ML INSULN.PEN SC ×3 (09:27→18:20)
[2023-12-19] MEDS: Escitalopram Oxalate 10 MG Tablet PO (09:28)
[2023-12-19] MEDS: Aspirin E.C. 81 MG Tablet PO (09:28)
[2023-12-19] MEDS: Pantoprazole Sodium 20 MG Tablet PO ×2 (09:28→21:33)
[2023-12-19] MEDS: Insulin Glargine-YFGN 100 UNIT/ML Pen 35 UNIT SC ×2 (09:28→21:33)
[2023-12-19] MEDS: Senna/Docusate Sodium 1 Tablet PO (09:29)
[2023-12-19] MEDS: Menthol/Lanolin/Calamine/Znox 113 GM Tube 1 APPLIC TOPICAL ×2 (09:37→21:33)
[2023-12-19 11:33] LABS: Bedside Glucose 212 mg/dL (74-106)
[2023-12-19 12:49] VITALS: PULSE 82; RESP 16; O2SAT 99
[2023-12-19 12:57] VITALS: BP 96/57; PULSE 82; RESP 16; TEMP 36.5; O2SAT 99
--- NOTE | 2023-12-19 13:19 | CASEMGMT ---
Social Work LESLI received call from Amber at [facility]. Guardianship papers were filed with the court and the Tape Cutter denied Guardianship stating the son who is requesting to be Guardian is out of Jurisdiction as he lives out of state ([place]) and cannot fulfill the visiting restrictions required by law. Amber also states that there are no attorneys available in [facility] to accept new wards and therefore there is no one else to apply to be pt's guardian. LESLI requested Amber follow up with pt to continue to work on filing for Medicaid and local guardianship if apporpriate. Message sent to [facility] to check on acceptance. [facility] has not yet made a determination of acceptance as they are unable to reach pt's son for financial questions. Phone call to pt's son Salomón and informed that Guardianship was denied. LESLI informed Salomón that [facility] cannot accept until they speak with him regarding pt finances. Salomón states he will contact [facility] after this conversation. Salomón believes pt will willing go to [facility] once they accept. Phone call to [facility] in [place]. Bebe states they are able to accept pt. LESLI encouraged Bebe to reach out to Salomón as he will be facilitating this transition. LESLI to await to hear from [facility] prior to finalizing dc plan. Shady ROTH
--- NOTE | 2023-12-19 14:04 | CASEMGMT ---
Social Work [facility] completed [facility] and Level of Care request submitted in the event pt is accepted at [facility]. IRA Tellez
[2023-12-19 16:58] LABS: Bedside Glucose 236 mg/dL (74-106)
--- NOTE | 2023-12-19 18:24 | CASEMGMT ---
Social Work LESLI spoke with Amber from [facility] who states she is unable to assist pt with Medicaid application and that there are no available guardians in [facility]. Amber reports pt's son will now need to care for these issues. LESLI spoke with Bridgette at [facility] regarding pt's placement. After discussion with Bridgette and with pt's son Salomón, [facility] is able to accept pt on Friday. Transportation arranged for 10am machine operator picker on Friday for transport to [facility]. Discharge orders and time provided to [facility]. LESLI met with pt and informed of discharge plan as listed above. Pt clearly stating that she is agreeable to go to [facility] on Friday. At this time pt is not requesting to return home and is not declining to go to SNF. Pt accepting of plan. Nursing staff updated. Discharge Date: 12/20 Discharge Disposition: [facility], intermediate Level of Care IRA Tellez
--- NOTE | 2023-12-19 18:28 | CASEMGMT ---
BIMS (05/14) and PHQ9 () interviews completed on this date for MDS assessment. IRA Tellez
[2023-12-19] MEDS: Tolterodine Tartrate 4 MG CAP.SA PO (21:33)
[2023-12-19] MEDS: Atorvastatin Calcium 40 MG Tablet PO (21:33)
[2023-12-19 21:46] LABS: Bedside Glucose 117 mg/dL (74-106)
[2023-12-20] MEDS: Levothyroxine 50 MCG Tablet PO (05:32)
[2023-12-20 06:38] LABS: Bedside Glucose 83 mg/dL (74-106)
[2023-12-20 06:38] LABS: Bedside Glucose 63 mg/dL (74-106)
[2023-12-20] MEDS: Ferrous Gluconate 324 MG Tablet PO ×2 (08:17→17:31)
[2023-12-20] MEDS: Aspirin E.C. 81 MG Tablet PO (08:17)
[2023-12-20] MEDS: Escitalopram Oxalate 10 MG Tablet PO (10:32)
[2023-12-20] MEDS: Senna/Docusate Sodium 1 Tablet PO (10:33)
[2023-12-20] MEDS: Pantoprazole Sodium 20 MG Tablet PO ×2 (10:33→21:45)
[2023-12-20] MEDS: Insulin Glargine-YFGN 100 UNIT/ML Pen 30 UNIT SC ×2 (10:34→21:45)
[2023-12-20] MEDS: Menthol/Lanolin/Calamine/Znox 113 GM Tube 1 APPLIC TOPICAL ×2 (10:35→21:43)
[2023-12-20 11:25] LABS: Bedside Glucose 241 mg/dL (74-106)
[2023-12-20] MEDS: Insulin Lispro 100 UNIT/ML INSULN.PEN SC ×2 (12:01→17:27)
[2023-12-20 13:09] VITALS: BP 105/63; PULSE 89; RESP 16; TEMP 36.8; O2SAT 98
[2023-12-20 16:31] LABS: Bedside Glucose 290 mg/dL (74-106)
[2023-12-20 21:34] LABS: Bedside Glucose 216 mg/dL (74-106)
[2023-12-20] MEDS: Atorvastatin Calcium 40 MG Tablet PO (21:44)
[2023-12-20] MEDS: Tolterodine Tartrate 4 MG CAP.SA PO (21:44)
[2023-12-21 02:46] LABS: Bedside Glucose 61 mg/dL (74-106)
[2023-12-21 03:00] LABS: Bedside Glucose 77 mg/dL (74-106)
--- NOTE | 2023-12-21 03:51 | NURSING ---
0215; pt called out stating she felt she had a low sugar. states she feels shaky bs 61. pt given 1 apple juice. bs after 15 min. 77 and pt states she feels better. pt given harjinder crackers and pb and milk. 3 rd bs check 139. pt resting. will continue to monitor.
[2023-12-21 04:02] LABS: Bedside Glucose 139 mg/dL (74-106)
[2023-12-21] MEDS: Levothyroxine 50 MCG Tablet PO (06:19)
[2023-12-21 06:40] LABS: Bedside Glucose 158 mg/dL (74-106)
[2023-12-21] MEDS: Insulin Lispro 100 UNIT/ML INSULN.PEN SC (08:17)
[2023-12-21] MEDS: Insulin Glargine-YFGN 100 UNIT/ML Pen 30 UNIT SC (08:17)
[2023-12-21] MEDS: Ferrous Gluconate 324 MG Tablet PO (08:18)
[2023-12-21] MEDS: Pantoprazole Sodium 20 MG Tablet PO (08:18)
[2023-12-21] MEDS: Escitalopram Oxalate 10 MG Tablet PO (08:18)
[2023-12-21] MEDS: Aspirin E.C. 81 MG Tablet PO (08:19)
[2023-12-21] MEDS: Menthol/Lanolin/Calamine/Znox 113 GM Tube 1 APPLIC TOPICAL (08:19)
[2023-12-21 09:53] VITALS: BP 104/59; PULSE 85; RESP 18; TEMP 36.6; O2SAT 98
== END 2023-12-21 10:00 | disposition intermediate care facility (04) | DRG 637 ==
PROVIDERS: Admitting Provider Family Medicine Geriatric Medicine; PCP Internal Medicine; Visit Provider Family Medicine Geriatric Medicine
DX: E11.65 Type 2 diabetes mellitus with hyperglycemia (principal); G93.41 Metabolic encephalopathy; Z79.4 Long term (current) use of insulin; D50.9 Iron deficiency anemia, unspecified; E03.9 Hypothyroidism, unspecified; F32.A Depression, unspecified; E78.5 Hyperlipidemia, unspecified; K21.9 Gastro-esophageal reflux disease without esophagitis; K22.89 Other specified disease of esophagus; R62.7 Adult failure to thrive; Z79.82 Long term (current) use of aspirin; R13.10 Dysphagia, unspecified; Z79.899 Other long term (current) drug therapy; Z79.890 Hormone replacement therapy; Z23 Encounter for immunization
CPT/HCPCS: 36415; 74018; 80048; 80061; 81001; 82962; 85025; 87086; 87811; 90480; 92507; 92523; 92526; 92610; 97110; 97116; 97129; 97130; 97162; 97166; 97530; 97535; 91322

== ENCOUNTER 2023-12-09 13:55 | Day surgery (SDC) | payer MEDICARE, SELFPAY ==
--- NOTE | 2023-12-09 11:30 | EGD_PTH ---
PATIENT: STEVE VIEIRA LOC: EN U#:[id number] AGE/SX: 78/F ROOM: RE12/09/[address]: Dr. Nitin Alarcon DO : 1945 BED: DIS: 12/09/2023 SPEC #: [id number] RECD: 12/09/23 17:28 STATUS: JEANINE DENA #: [id number] VONDA: 12/09/23 11:[address]: Nitin Alarcon DEPT: SURGICAL PATHOLOGY RECD BY: Payton Chou ENTERED: 12/10/23 07:51 SP TYPE: EGD BIOPSY XIMENA DR: Dr. Pavithra Presley MD Tissues: Esophagus, NOS Procedures: Special Stain Group I Surgery Specimen Level IV Alcian Blue/PAS (control) HEADER OPERATION: EGD, biopsy, dilation PRE-OP DIAGNOSIS: Dysphagia TISSUE SUBMITTED: Distal esophagus biopsy MICROSCOPIC DIAGNOSIS Distal esophagus, biopsy: Fragments of squamous mucosa with focal changes consistent with eosinophilic esophagitis. Chronic inflammation. See comment. / 12/11/2023 COMMENT Increased number of eosinophilic cells (>20 per high power field) are noted, consistent with eosinophilic esophagitis. Correlation with clinical, endoscopic findings and appropriate follow up are necessary. MICROSCOPIC DESCRIPTION Slides are reviewed. GROSS DESCRIPTION Received in fixative is one container labeled with the patient's name and designated Distal esophagus biopsy. The specimen consists of multiple irregular fragments of light delaney soft tissue that in aggregate measure 1.0 x 0.3 x 0.1 cm. The specimen is totally submitted in one cassette. / 12/10/2023 TC:3 CPT:20630
--- NOTE | 2023-12-09 14:01 | HP.PCM_ITS ---
History and Physical Date of Admission: 12/09/23 Esophageal dysphagia HPI Narrative: STEVE RUSSELL, is a 78 F with a past medical history of hyperlipidemia, hypothyroidism, DM-2; uncontrolled with hyperglycemia, SAMMY, history of renal calculi, chronic depression, GERD, history of cholecystectomy, OA; with history of TKR, admission to [facility] from August 09, 2023 to August 12, 2023 for treatment of adult [id number]-edbkzl. Also there was an admission here from August 15, 2023 to August 16, 2023 for treatment of severe hyperglycemia of 681 mg/dL present on admission complicated by a UTI with patient chronically confused and struggling to live at home alone and unable to consistently take her diabetic medications who now re-presents to [facility] ER complaining of confusion and elevated blood glucose. She stated she does not have a clear memory of the days events so information was gathered from chart, medical staff and computer. According to the records Ms. Russell was crossing the street when a passerby noted she was confused and not acting right so they subsequently activated EMS. She was diagnosed with uncontrolled diabetes .Her admission glucose was 499, improved but still high, increase glargine to 30 BID. Her a1c is 14. Her altered mental status was thought to be secondary to encephalopathy secondary to hyper glycemia. She underwent a swallowing study and was determined to have mild oropharyngeal dysphagia and moderate esophageal dysphagia. It was noted that she had esophageal retention on her modified video swallow and was deemed high risk for aspiration of food and stomach contents. Therefore GI consultation was rec ommended. She says she has been having esophageal dysphagia for long time where she has to vomit up food on a 3-4 times a week basis. [facility] Medical History Diabetes Kidney stones Adult failure to thrive Hyperglycemia due to diabetes mellitus Acute dehydration Head injury Home Medications ?Medication ?Instructions ?Recorded ?Last Taken ?Type levothyroxine 50 mcg tablet 50 mcg PO DAILY thyroid 06/07/14 12/06/23 History pantoprazole 40 mg tablet,delayed 40 mg PO BREAKFAST GERD 06/07/14 12/06/23 History release aspirin 81 mg tablet,delayed 81 mg PO DAILY@0800 cad 05/28/19 12/06/23 History release 81 mg atorvastatin 40 mg tablet 40 mg PO QHS CHOLESTEROL 05/28/19 12/05/23 History escitalopram oxalate 10 mg tablet 10 mg PO DAILY DEPRESS 05/28/19 12/06/23 History ferrous gluconate 236 mg (27 mg 65 mg PO BID supplement 05/28/19 12/06/23 History iron) tablet levothyroxine 25 mcg tablet 25 mcg PO .MWF thyroid 08/09/23 12/06/23 History acetaminophen 325 mg tablet 650 mg (2 x 325 mg) PO Q6H PRN PRN 12/06/23 Unknown Rx Pain 1-10 Or Fever>100.7 #0 tabs insulin glargine-yfgn 100 unit/mL 30 unit (0.3 mL) subcut BID 12/06/23 12/06/23 Rx (3 mL) subcutaneous pen diabetic #0 mL insulin lispro 100 unit/mL See Protocol subcut ACHS diabetic 12/06/23 12/05/23 Rx subcutaneous pen (Humalog KwikPen #0 mL (U-100) Insulin) melatonin 3 mg tablet 3 mg PO QHS PRN PRN Insomnia #0 12/06/23 12/05/23 Rx tabs menthol 0.44 %-zinc oxide 20.6 % 1 applic topical BID redness 12/06/23 12/06/23 History topical ointment (Calmoseptine) Allergy/AdvReac Type Severity Reaction Status Date / Time venlafaxine HCl (From Allergy Rash Verified 08/09/23 11:14 Effexor) meclizine AdvReac Other Verified 08/09/23 11:14 Surgical History History of cholecystectomy History of knee joint replacement H/O: section Social History (Updated 12/06/23 @ 16:[address] Rubin Cordova MD) household members: none Smoking Status: Never smoker alcohol intake: never substance use type: does not use ROS Constitutional Constitutional: Denies chills, fever(s) or weight gain ENT HEENT: Denies headache(s), nasal congestion or nasal discharge Cardiovascular Cardiovascular: Denies chest pain or palpitations Respiratory/Chest Respiratory/Chest: Denies cough, excessive phlegm production or shortness of breath with exertion Gastrointestinal Gastrointestinal: Denies abdominal pain, nausea or vomiting Genitourinary Genitourinary: Denies dysuria Musculoskeletal Musculoskeletal: Denies joint pain or joint swelling Integumentary Integumentary: Denies rash or wounds Neurologic Neurologic: Reports memory loss; Denies focal weakness, numbness or tingling Psychiatric Psychiatric: Denies anxiety, auditory hallucinations, depression, homicidal ideation or suicidal ideation Physical Exam Const alert General Appearance: cooperative HEENT normocephalic Eyes PERRL and EOMs intact bilaterally Neck supple, no JVD and no carotid bruits Resp normal respiratory effort, normal air movement and clear to auscultation bilaterally Cardio regular rate and regular rhythm GI normal to inspection, nondistended, normoactive bowel sounds, non-tender and non-distended Extremity normal capillary refill General Extremity: Negative for edema Skin no rashes or lesions noted General Skin Exam: no breakdown Psych affect normal Appearance: appropriate Lab / Micro Data 12/07/23 05:36 12/07/23 05:36 Labs: Laboratory Results - last 24 hr 12/07/23 21:30: POC Glucose 315 H 12/08/23 05:14: Triglycerides 81, Cholesterol 117, LDL Cholesterol 57, VLDL Cholesterol 16, HDL Cholesterol 44 12/08/23 05:49: POC Glucose 87 12/08/23 11:08: POC Glucose 295 H 12/08/23 16:12: POC Glucose 371 H Assessment & Plan Assessment/Plan (1) Hyperglycemia: (2) Metabolic encephalopathy: (3) Uncontrolled type 2 diabetes mellitus with hyperglycemia: (4) Adult failure to thrive: (5) Chronic depression: PLAN: Plan 78-year-old with severe hyperglycemia of 496 mg/dL present on admission consistent with DM-2; uncontrolled with hyperglycemia .her blood sugars under better control. She has not shown any more signs of encephalopathy. However she is having esophageal dysphagia. Differential diagnosis does include Sadie esophagitis, esophageal motility disorder including achalasia. Also different diagnosis would be diverticulum, erosive esophagitis with esophageal stricture. She should undergo an upper endoscopy to evaluate upper GI tract. She was explained alternatives, risk, benefits including understanding bleeding, infection, sepsis, perforation, need for emergent urgent . She have an ASA of 3. I have examined the patient and the H&P has been reviewed. There are no clinical changes since date of exam.
[2023-12-09 14:42] VITALS: BP 102/48; PULSE 76; RESP 16; TEMP 36.1; O2SAT 99; BMI 27.0
[2023-12-09 16:05] VITALS: BP 102/48; BP 96/55; PULSE 86; RESP 18; TEMP 36.5; O2SAT 95
--- NOTE | 2023-12-09 16:07 | OP.CCLET_ITS ---
12/09/2023 Pavithra Presley [address] [place] [address] Re : Upper GI endoscopy procedure for Beatriz Russell Dear Dr. Presley This procedure was performed on Saturday, December 09, 2023. My impressions and recommendations are as follows: Impressions : - Abnormal esophageal motility, suspicious for esophageal spasm. - Severe Schatzki ring. Dilated. - Large hiatal hernia. - No gross lesions in the duodenal bulb. - No specimens collected. Recommendations : - Return patient to referring hospital for ongoing care. - Advance diet as tolerated. - Continue present medications. - Await pathology results. - Repeat upper endoscopy in 4 months for surveillance. - Use Protonix (pantoprazole) 20 mg PO BID for 6 months. My findings are described in the full procedure note, which is enclosed. If I can be of further assistance, please feel free to contact me at . Sincerely, Nitin Alarcon, 12/09/2023 4:07:14 PM This report has been signed electronically.
--- NOTE | 2023-12-09 16:07 | OP.EGD_ITS ---
Patient Name: Beatriz Russell Procedure Date: 12/09/2023 3:24 PM Date of : 1945 Age: 78 Procedure: Upper GI endoscopy Indications: Dysphagia Providers: Nitin Alarcon DO Medicines: Monitored Anesthesia Care Patient Profile: This is an 78 year old female. Refer to note in patient chart for documentation of history and physical. Patient has symptoms of acute dysphagia and dysphagia with both liquids and solids. Complications: No immediate complications. Procedure: Pre-Anesthesia Assessment: - Prior to the procedure, a History and Physical was performed, and patient medications and allergies were reviewed. The risks and benefits of the procedure and the sedation options and risks were discussed with the patient. All questions were answered and informed consent was obtained. Patient identification and proposed procedure were verified by the physician in the pre-procedure area. Mental Status Examination: alert and oriented. Respiratory Examination: clear to auscultation. CV Examination: normal. Prophylactic Antibiotics: The patient does not require prophylactic antibiotics. Prior Anticoagulants: The patient has taken no anticoagulant or antiplatelet agents. After reviewing the risks and benefits, the patient was deemed in satisfactory condition to undergo the procedure. The anesthesia plan was to use monitored anesthesia care (MAC). Immediately prior to administration of medications, the patient was re-assessed for adequacy to receive sedatives. The heart rate, respiratory rate, oxygen saturations, blood pressure, adequacy of pulmonary ventilation, and response to care were monitored throughout the procedure. The physical status of the patient was re-assessed after the procedure. After obtaining informed consent, the endoscope was passed under direct vision. Throughout the procedure, the patient's blood pressure, pulse, and oxygen saturations were monitored continuously. The was introduced through the mouth, and advanced to the second part of duodenum. The upper GI endoscopy was accomplished without difficulty. The patient tolerated the procedure well. Scope In: 3:53:22 PM Scope Out: 3:58:27 PM Total Procedure Duration Time 0 hours 5 minutes 5 seconds Findings: Abnormal motility was noted in the esophagus. The cricopharyngeus was abnormal. There are extra peristaltic waves in the esophageal body. The distal esophagus/lower esophageal sphincter is spastic, but gives up passage to the endoscope. Secondary peristaltic waves are noted. Biopsies were taken with a cold forceps for histology. Verification of patient identification for the specimen was done. Estimated blood loss was minimal. A severe Schatzki ring was found in the lower third of the esophagus. A guidewire was placed and the scope was withdrawn. Dilation was performed with a Savary dilator with no resistance at 60 Fr. The dilation site was examined and showed moderate improvement in luminal narrowing. Estimated blood loss was minimal. A large hiatal hernia was present. No other significant abnormalities were identified in a careful examination of the stomach. No gross lesions were noted in the duodenal bulb. Impression: - Abnormal esophageal motility, suspicious for esophageal spasm. - Severe Schatzki ring. Dilated. - Large hiatal hernia. - No gross lesions in the duodenal bulb. - No specimens collected. Recommendation: - Return patient to referring hospital for ongoing care. - Advance diet as tolerated. - Continue present medications. - Await pathology results. - Repeat upper endoscopy in 4 months for surveillance. - Use Protonix (pantoprazole) 20 mg PO BID for 6 months. Procedure Code(s): --- Professional --- 32491, Esophagogastroduodenoscopy, flexible, transoral; with insertion of guide wire followed by passage of dilator(s) through esophagus over guide wire 56342, 59,51, Esophagogastroduodenoscopy, flexible, transoral; with biopsy, single or multiple CPT copyright 2021 [employer]. All rights reserved. The codes documented in this report are preliminary and upon divisional storekeeper review may be revised to meet current compliance requirements. Nitin Alarcon DO 12/09/2023 4:07:14 PM This report has been signed electronically. Number of Addenda: 0 Note Initiated On: 12/09/2023 3:24 PM
[2023-12-09 16:10] VITALS: BP 102/48; BP 90/45; PULSE 83; RESP 16; O2SAT 96
[2023-12-09 16:15] VITALS: BP 102/48; BP 98/54; PULSE 81; RESP 16; TEMP 36.3; O2SAT 95
[2023-12-09 16:29] VITALS: BP 102/48
[2023-12-10 15:51] LABS: Bedside Glucose 122 mg/dL (74-106)
== END 2023-12-09 16:33 | disposition home or self-care (01) ==
LOC: EN 13:56 → AC 13:57
PROVIDERS: PCP Internal Medicine; Referring Provider Internal Medicine; Visit Provider Internal Medicine Gastroenterology
PROC: 0DJ08ZZ Inspection of Upper Intestinal Tract, Via Natural or Artificial Opening Endoscopic (ICD-10-PCS; CPT 43235; principal; 2023-12-09 11:25)
DX: K22.2 Esophageal obstruction (principal); E11.65 Type 2 diabetes mellitus with hyperglycemia; Z79.4 Long term (current) use of insulin; K21.9 Gastro-esophageal reflux disease without esophagitis; Z79.82 Long term (current) use of aspirin; G93.41 Metabolic encephalopathy; E78.5 Hyperlipidemia, unspecified; K44.9 Diaphragmatic hernia without obstruction or gangrene; F32.A Depression, unspecified; D50.9 Iron deficiency anemia, unspecified; Z90.49 Acquired absence of other specified parts of digestive tract; K22.4 Dyskinesia of esophagus; Z79.899 Other long term (current) drug therapy; Z79.890 Hormone replacement therapy; E89.0 Postprocedural hypothyroidism; K20.0 Eosinophilic esophagitis
CPT/HCPCS: 43248; 43239; 82962; 88305; 88312; C1769; J2405

== ENCOUNTER → 2023-12-22 05:00 | Outpatient (REF) | payer MEDICARE, SELFPAY ==
[2023-12-22 08:33] LABS: Hematocrit 31.3 % (37-47); Hemoglobin 9.3 g/dL (12.0-15.0); Mean Corp Hgb Conc 29.7 g/dL (32-36); Mean Corpuscular Hgb 29.5 pg (27.0-32.0); Mean Corpuscular Volume 99.4 fL (81-99); Mean Platelet Vol. 11.5 fl (6.2-12.0); Platelet Count 124 K/mm3 (150-450); RBC Distribution Width CV 16.8 % (11.6-14.6); RBC Distribution Width SD 60.6 fl (35.1-43.9); Red Blood Count 3.15 M/mm3 (4.2-5.4); White Blood Count 3.1 K/mm3 (4.4-11.0)
[2023-12-22 08:51] LABS: Anion Gap 5 (5-15); BUN 23 mg/dL (7-18); BUN/Creat Ratio 35.9 RATIO (10-20); Calcium,Total 8.7 mg/dL (8.5-10.1); Chloride 112 mmol/L (98-107); Cholesterol 120 mg/dL (200); Creatinine, Serum 0.64 mg/dL (0.55-1.02); EST Glomerular Filtration Rate 95 mL/min (>60); Est Glom Filt Rate - Afr Amer 115 mL/min (>60); Glucose 116 mg/dL (74-106); High Density Lipoprotein 44 mg/dL; Potassium 3.9 mmol/L (3.5-5.1); Sodium Level 143 mmol/L (136-145); Triglycerides 96 mg/dL; Very Low Density Lipoprotein 19 mg/dL (5-40)
[2023-12-22 10:35] LABS: Hemoglobin A1c 11.7 % (3.8-5.6)
== END ==
LOC: OLS.SW 05:00
PROVIDERS: PCP Internal Medicine; Visit Provider Family Medicine
DX: Z02.2 Encounter for examination for admission to residential institution (principal)
CPT/HCPCS: 36415; 80048; 80061; 83036; 85027

== ENCOUNTER → 2024-02-05 | Outpatient (REF) | payer MEDICARE, SELFPAY ==
[2024-02-05 09:27] LABS: Hematocrit 31.2 % (37-47); Hemoglobin 9.5 g/dL (12.0-15.0); Mean Corp Hgb Conc 30.4 g/dL (32-36); Mean Corpuscular Hgb 30.8 pg (27.0-32.0); Mean Corpuscular Volume 101.3 fL (81-99); Mean Platelet Vol. 11.6 fl (6.2-12.0); Platelet Count 117 K/mm3 (150-450); RBC Distribution Width CV 15.3 % (11.6-14.6); RBC Distribution Width SD 57.6 fl (35.1-43.9); Red Blood Count 3.08 M/mm3 (4.2-5.4); White Blood Count 3.2 K/mm3 (4.4-11.0)
[2024-02-05 09:43] LABS: Anion Gap 5 (5-15); BUN 29 mg/dL (7-18); BUN/Creat Ratio 49.4 RATIO (10-20); Calcium,Total 9.1 mg/dL (8.5-10.1); Chloride 110 mmol/L (98-107); Creatinine, Serum 0.59 mg/dL (0.55-1.02); EST Glomerular Filtration Rate 105 mL/min (>60); Est Glom Filt Rate - Afr Amer 127 mL/min (>60); Glucose 54 mg/dL (74-106); Potassium 3.7 mmol/L (3.5-5.1); Sodium Level 144 mmol/L (136-145)
== END ==
LOC: OLS.SW 05:00
PROVIDERS: PCP Internal Medicine; Visit Provider Family Medicine
DX: E11.9 Type 2 diabetes mellitus without complications (principal); E78.5 Hyperlipidemia, unspecified; D50.9 Iron deficiency anemia, unspecified; G93.41 Metabolic encephalopathy
CPT/HCPCS: 36415; 80048; 85027

== ENCOUNTER → 2024-03-22 | Outpatient (REF) | payer MEDICARE, SELFPAY ==
[2024-03-22 09:10] LABS: Hemoglobin A1c 6.4 % (3.8-5.6)
[2024-03-22 09:50] LABS: T4 Total, Thyroxin 9.3 ug/dL (4.8-13.9)
== END ==
LOC: OLS.SW 05:00
PROVIDERS: PCP Internal Medicine; Visit Provider Family Medicine
DX: E11.9 Type 2 diabetes mellitus without complications (principal)
CPT/HCPCS: 36415; 83036; 84436; 84443

== ENCOUNTER → 2024-06-21 05:30 | Outpatient (REF) | payer MEDICARE, SELFPAY ==
[2024-06-21 08:45] LABS: Hematocrit 33.1 % (37-47); Hemoglobin 10.5 g/dL (12.0-15.0); Mean Corp Hgb Conc 31.7 g/dL (32-36); Mean Corpuscular Hgb 31.8 pg (27.0-32.0); Mean Corpuscular Volume 100.3 fL (81-99); Mean Platelet Vol. 11.5 fl (6.2-12.0); Platelet Count 125 K/mm3 (150-450); RBC Distribution Width CV 13.3 % (11.6-14.6); White Blood Count 3.9 K/mm3 (4.4-11.0)
[2024-06-21 09:31] LABS: Anion Gap 5 (5-15); BUN 29 mg/dL (7-18); BUN/Creat Ratio 37.6 RATIO (10-20); Calcium,Total 9.6 mg/dL (8.5-10.1); Chloride 107 mmol/L (98-107); Cholesterol 118 mg/dL (200); Creatinine, Serum 0.77 mg/dL (0.55-1.02); EST Glomerular Filtration Rate 76 mL/min (>60); Est Glom Filt Rate - Afr Amer 92 mL/min (>60); Glucose 100 mg/dL (74-106); High Density Lipoprotein 43 mg/dL; Potassium 3.9 mmol/L (3.5-5.1); Sodium Level 140 mmol/L (136-145); T4 Total, Thyroxin 11.6 ug/dL (4.8-13.9); Triglycerides 114 mg/dL; Very Low Density Lipoprotein 23 mg/dL (5-40)
[2024-06-21 11:06] LABS: Hemoglobin A1c 7.4 % (3.8-5.6)
== END ==
LOC: OLS.SW 05:30
PROVIDERS: PCP Internal Medicine; Visit Provider Internal Medicine
DX: E11.9 Type 2 diabetes mellitus without complications (principal); D64.9 Anemia, unspecified
CPT/HCPCS: 36415; 80048; 80061; 83036; 84436; 84443; 85027

== ENCOUNTER → 2024-09-20 | Outpatient (REF) | payer MEDICARE, BC, MEDICAID, SELFPAY ==
[2024-09-20 10:27] LABS: Hematocrit 33.2 % (37-47); Hemoglobin 10.6 g/dL (12.0-15.0); Mean Corp Hgb Conc 31.9 g/dL (32-36); Mean Corpuscular Hgb 31.2 pg (27.0-32.0); Mean Corpuscular Volume 97.6 fL (81-99); Mean Platelet Vol. 11.3 fl (6.2-12.0); Platelet Count 126 K/mm3 (150-450); RBC Distribution Width CV 12.9 % (11.6-14.6); RBC Distribution Width SD 45.9 fl (35.1-43.9); White Blood Count 4.4 K/mm3 (4.4-11.0)
[2024-09-20 22:49] LABS: Anion Gap 13 (5-15); BUN 18 mg/dL (4-19); BUN/Creat Ratio 23.4 RATIO (10-20); Calcium,Total 9.6 mg/dL (7.6-11.0); Carbon Dioxide 21.9 mmol/L (21.0-32.0); Chloride 103 mmol/L (98-108); Creatinine, Serum 0.78 mg/dL (0.70-1.20); EST Glomerular Filtration Rate 76 (>60); Glucose 229 mg/dL (70-99); Potassium 4.2 mmol/L (3.3-5.1); Sodium Level 138 mmol/L (133-145); T4 Total, Thyroxin 8.9 ug/dL (4.8-13.9)
[2024-09-20 23:50] LABS: Cholesterol 118 mg/dL (<=200); High Density Lipoprotein 39 mg/dL; Low Density Lipoprotein Calc. 56 mg/dL; Triglycerides 111 mg/dL; Very Low Density Lipoprotein 22 mg/dL (5-40); cholesterol:hdl ratio screen 2.99
[2024-09-21 20:50] LABS: Hemoglobin A1c 7.1 % (<=5.6)
== END ==
LOC: OLS.SW 05:00
PROVIDERS: PCP Internal Medicine; Visit Provider Internal Medicine
DX: E11.9 Type 2 diabetes mellitus without complications (principal)
CPT/HCPCS: 36415; 80048; 80061; 83036; 84436; 84443; 85027

== ENCOUNTER → 2024-10-26 | Outpatient (REF) | payer MEDICARE, BC, MEDICAID, SELFPAY ==
[2024-10-26 09:35] LABS: Vitamin D,25 Hydroxy 16.5 ng/mL (30-100)
== END ==
LOC: OLS.SW 07:05
PROVIDERS: PCP Internal Medicine; Visit Provider Family Medicine
DX: E11.9 Type 2 diabetes mellitus without complications (principal); M62.81 Muscle weakness (generalized); D64.9 Anemia, unspecified
CPT/HCPCS: 36415; 82306

== ENCOUNTER → 2024-12-14 | Outpatient (REF) | payer MEDICARE, BC, MEDICAID, SELFPAY ==
[2024-12-14 09:48] LABS: Hematocrit 32.9 % (37-47); Hemoglobin 10.4 g/dL (12.0-15.0); Mean Corp Hgb Conc 31.6 g/dL (32-36); Mean Corpuscular Volume 98.2 fL (81-99); Mean Platelet Vol. 11.7 fl (6.2-12.0); Platelet Count 105 K/mm3 (150-450); RBC Distribution Width CV 13.2 % (11.6-14.6); RBC Distribution Width SD 47.3 fl (35.1-43.9); Red Blood Count 3.35 M/mm3 (4.2-5.4); White Blood Count 3.6 K/mm3 (4.4-11.0)
[2024-12-14 10:08] LABS: Hemoglobin A1c 8.2 % (<=5.6)
[2024-12-14 10:33] LABS: Anion Gap 9 (5-15); BUN 26 mg/dL (4-19); BUN/Creat Ratio 34.4 RATIO (10-20); Calcium,Total 9.3 mg/dL (7.6-11.0); Carbon Dioxide 25.7 mmol/L (21.0-32.0); Chloride 106 mmol/L (98-108); Cholesterol 116 mg/dL (<=200); Creatinine, Serum 0.75 mg/dL (0.70-1.20); EST Glomerular Filtration Rate 81 (>60); Glucose 83 mg/dL (70-99); High Density Lipoprotein 39 mg/dL; Low Density Lipoprotein Calc. 63 mg/dL; Sodium Level 141 mmol/L (133-145); T4 Total, Thyroxin 8.3 ug/dL (4.8-13.9); Triglycerides 72 mg/dL; Very Low Density Lipoprotein 14 mg/dL (5-40); Vitamin D,25 Hydroxy 13.7 ng/mL (30-100); cholesterol:hdl ratio screen 2.97
[2024-12-14 11:33] LABS: Iron 54 ug/dL (50-170)
== END ==
LOC: OLS.SW 05:00
PROVIDERS: PCP Internal Medicine; Visit Provider Family Medicine
DX: D64.9 Anemia, unspecified (principal); E03.9 Hypothyroidism, unspecified; E11.9 Type 2 diabetes mellitus without complications
CPT/HCPCS: 36415; 80048; 80061; 82306; 83036; 83540; 84436; 84443; 85027

== ENCOUNTER 2025-03-03 14:09 | Inpatient (IN) | payer MEDICARE, BC, MEDICAID, SELFPAY ==
[2025-03-03] VITALS (33 sets, daily range): BP systolic 71–145; BP diastolic 49–74; PULSE 93–131; RESP 14–36; TEMP 37.2–39.6; O2SAT 90–100; BMI 37.6; BMI 37.3
--- NOTE | 2025-03-03 14:19 | EKG12_ITS ---
Test Reason : KB Blood Pressure : */* mmHG Vent. Rate : 130 BPM Atrial Rate : 130 BPM P-R Int : 160 ms QRS Dur : 86 ms QT Int : 290 ms P-R-T Axes : 30 -47 80 degrees QTcB Int : 426 ms Sinus tachycardia with Premature supraventricular complexes Left axis deviation Anteroseptal infarct (cited on or before 09-Aug-2023) Abnormal ECG Confirmed by DIANA DEJESUS, MUNA ([id number]), editorial manager ORION MARTINS ([id number]) on 03/07/2025 9:05:15 AM Referred By: KELLY Confirmed By: MUNA ORTIZ MD
[2025-03-03] MEDS: 0.9% Normal Saline (1000mL) 1,000 ML 1000 ML IV (14:29)
[2025-03-03 14:31] LABS: Allen Test Positive; Base Excess -2 mmol/L (-2 to +2); PO2 78 mmHG (75-100); SITE R Radial; SO2 96 % (95-99)
[2025-03-03 14:45] LABS: Hematocrit 32.8 % (37-47); Hemoglobin 10.4 g/dL (12.0-15.0); Immature Granulocytes Count 0.070 X10^3/uL (0.0-0.0); Mean Corp Hgb Conc 31.7 g/dL (32-36); Mean Corpuscular Volume 96.8 fL (81-99); Mean Platelet Vol. 10.9 fl (6.2-12.0); NRBC Flagged by Analyzer 0 % (0-5); POSITIVE DIFFERENTIAL YES; Platelet Count 191 K/mm3 (150-450); RBC Distribution Width CV 14.1 % (11.6-14.6); RBC Distribution Width SD 49.9 fl (35.1-43.9); Red Blood Count 3.39 M/mm3 (4.2-5.4); White Blood Count 13.5 K/mm3 (4.4-11.0)
--- NOTE | 2025-03-03 14:45 | RAD_ITS ---
PROCEDURE: CHEST 1 VIEW (PORTABLE) 03/03/2025 REASON FOR EXAM: POST INTUBATION TECHNIQUE: Frontal view of the chest. COMPARISON: Prior study dated December 02, 2023. FINDINGS: Hardware: Endotracheal tube is seen with the tip at woodrow. It should be pulled back approximately 2 cm. Orogastric tube is seen with the tip in the fundal portion of the stomach. EKG electrodes are seen. Heart: The heart is nonenlarged. Lungs: Elevation of the right hemidiaphragm. The lungs are clear. Bones: Degenerative changes are identified within the thoracic spine. Other: Hiatal hernia. RAD/Chest 1 View (Portable) IMPRESSION: The tip of the endotracheal tube is at the level of the woodrow. It should be p ulled back approximately 2 cm. [id number]
[2025-03-03] MEDS: Propofol 10MG/Ml 1,000 MG/100 ML Bottle 5.1 MG CONT INF (14:47)
[2025-03-03] MEDS: fentaNYL 100 MCG/2 ML Ampul 25 MCG IV (14:49)
[2025-03-03 14:52] LABS: AST(SGOT) 77 U/L (<=31); Alanine Aminotransfer ALT/SGPT 39 U/L (<=34); Albumin, Serum 3.7 g/dL (3.4-4.8); Alkaline Phosphatase 378 U/L (35-104); Anion Gap 12 (5-15); BUN 22 mg/dL (4-19); BUN/Creat Ratio 23.4 RATIO (10-20); Calcium,Total 9.0 mg/dL (7.6-11.0); Carbon Dioxide 22.6 mmol/L (21.0-32.0); Chloride 101 mmol/L (98-108); Estimated Creatinine Clearance 44.36 ml/min (50-250); Globulin 4.1 g/dL (2.2-4.2); Glucose 214 mg/dL (70-99); Potassium 3.9 mmol/L (3.3-5.1)
[2025-03-03 15:00] LABS: Mucous, Urine 0 SEEN /hpf (<or=2+); Red Blood Cells-Urine 0 SEEN /hpf (0-5); Squamous Epithelial Cells - UA 0 SEEN /hpf (5-10)
[2025-03-03 15:07] LABS: Glucose, Dipstick Normal (Normal); Ketone-Dipstick Negative (Negative); Leukocyte Esterase-Dipstick 500 /ul (Negative); Nitrite-Dipstick Positive (Negative); Occult Blood-Urine 150 /ul (Negative); Protein-Dipstick 100 mg/dl (Negative); Specific Gravity, Urine 1.015 (1.002-1.030); Urine Bilirubin Dipstick Negative (Negative)
[2025-03-03 15:22] LABS: Color, Urine Yellow (Yellow)
[2025-03-03 15:24] LABS: Allen Test Positive; Base Excess 1 mmol/L (-2 to +2); FI02 50.0; PEEP 5; PO2 84 mmHG (75-100); RR 14; SITE L Radial; SO2 96 % (95-99)
[2025-03-03 15:31] LABS: Troponin T High Sensitivity 49 ng/L (<=14)
--- NOTE | 2025-03-03 15:45 | CT_ITS ---
PROCEDURE: ABDOMEN/PELVIS W IV CONT ONLY 03/03/2025 REASON FOR EXAM: TRANSAMINITIS ELEVATED TOTAL BILI TECHNIQUE: Procedure Code: [id number] Modality: CT Procedure: ABDOMEN/PELVIS W IV CONT ONLY Coronal and Sagittal reconstruction series were provided. CONTRAST: Please see CT VOLUME: Please see CT mL One or more dose reduction techniques were used (e.g., Automated exposure control, adjustment of the mA and/or kV according to patient size, use of iterative reconstruction technique. RADIATION DOSE SUMMARY: CTDlvol: Please see CT mGy DLP: Please see CT mGycm COMPARISON: None FINDINGS: Lung bases: Trace pleural effusions at the lung bases. Confluent airspace opacity with air bronchograms involving the right lower lobe to be correlated for aspiration/pneumonia versus compressive atelectasis. Correlation with complete chest radiograph and radiographic follow-up is advised to confirm resolution. This is incompletely assessed. Mild dependent atelectasis or mild pneumonia at the visualized left lung base. Liver: Hepatic length is 15.6 cm. Hepatic attenuation is consistent with steatosis. There is mild undulation of the surface of the liver consistent with mild changes of cirrhosis. Gallbladder/biliary: The gallbladder is not visualized. No significant biliary dilation. Pancreas: No pancreatic inflammation. No pancreatic ductal dilation. There is slight heterogeneity of pancreatic parenchyma of indeterminate significance. Spleen: Mild splenomegaly at 15 cm in diameter. Adrenals: The adrenal glands are within normal limits. Kidneys/ureters: The kidneys enhance symmetrically without hydronephrosis. Nonobstructive caliceal calculi seen bilaterally. There is mild urothelial enhancement tcny-dtzwyvr-ehek-right renal pelvis. This could be seen with mild urinary tract infection. Correlation with urinalysis and culture for confirmation. No imaging evidence to suggest pyelonephritis. Gastrointestinal: The visualized distal esophagus appears slightly thick-walled. Clinical correlation for mild distal esophagitis. Tiny gas containing hiatal hernia. Transesophageal catheter terminates within the stomach. The stomach is not sufficiently distended to evaluate wall thickening. If there are gastric symptoms consider upper GI for complete assessment. No appearance of a complete bowel obstruction. Nonspecific fluid and gas-filled loops of small bowel. No focal mesenteric inflammation. Small nonspecific mesenteric lymph nodes. Portions of the colon and rectum appears slightly thick-walled. Clinical correlation for mild proctocolitis versus artifact from insufficient distention. No pericolonic inflammation. No evidence of acute diverticulitis. Appendix: The appendix is not identified. No secondary inflammation is seen at the cecal apex. Peritoneal/retroperitoneal: No free intraperitoneal air. No free fluid is seen. Vascular: No abdominal aortic aneurysm, dissection or retroperitoneal hemorrhage. Mild appearing atherosclerosis. Lymph nodes: No pathologic enlarged lymphadenopathy by size criteria. Urinary bladder: The urinary bladder is not diagnostically assessed as it is decompressed by a Bray catheter. Any bladder symptoms to be correlated clinically. If there are bladder symptoms, consider cystoscopy or cystogram for complete assessment. Reproductive: Retroverted uterus measuring 4.8 cm in length. The endometrial complex is not identified by this technique. The ovaries are not conclusively identified. No dominant cystic adnexal mass seen. If there are pelvic symptoms consider ultrasound. Soft tissues: No soft tissue hematoma or soft tissue emphysema. Small fat containing left inguinal hernia. Osseous: Scoliosis and degenerative changes of the spine. No acute osseous injury is seen. CT/Abdomen/Pelvis W IV Cont ONLY IMPRESSION: Clinical correlation for mild UTI and/or cystitis. Genitourinary findings discussed above in detail. - Pulmonary parenchymal opacities to be correlated for aspiration/pneumonia as di scussed above. - Nonspecific gastrointestinal findings. - Other incidental and nonemergent findings discussed above. Reading Location: [facility]
[2025-03-03] MEDS: Azithromycin 500 MG in 0.9% Normal Saline (250mL Bag) 250 ML 255 MG IV (15:47)
[2025-03-03] MEDS: 0.9% Normal Saline (1000mL) 1,000 ML 999 ML IV ×3 (15:53→18:11)
--- NOTE | 2025-03-03 16:40 | PCM.HP.STD ---
HPI - General General Date of Admission: 03/03/25 Date of Service: 03/03/25 Chief Complaint: Patient came in hypoxic HPI Narrative STEVE VIEIRA, is a 79-year-old female history of GERD, diabetes, depression, hypothyroidism presented to [facility] ED 03/03/25 due to shortness of breath. In the ED initial temp 100, heart rate 131 and a blood pressure 130/67, respiratory rate 36 and pulse ox 90% on 10 L nasal cannula. Patient continued to deteriorate and was intubated and temperature went up to 102.6. In the ED patient's CBC with a white blood cell count 13.5, hemoglobin 10.4, CMP with a BUN of 22 and a creatinine of 0.96, glucose 214 and a total bili 2.53, AST 77, ALT 39 and alk phos 378. Lactic acid 3.4. Chest x-ray postintubation reported no acute process. Patient had a UA that was positive for nitrate and leuk esterase with white blood cells but did not report out any bacteria so CT of the abdomen was obtained and was pending. Hospitalist contacted for admission. History obtained per report as patient intubated and unable to participate in exam. At baseline patient ANO x 1 but this morning at snf patient was lethargic, had a temp of 101.2 and had an SpO2 of 65% so she was brought to the ED. In EMS on the way here she vomited 3 times. Her CODE STATUS was unclear regarding intubation so family was contacted and did want her intubated at the time. No family available at bedside to provide additional history. [facility] Medical History Diabetes Kidney stones Adult failure to thrive Hyperglycemia due to diabetes mellitus Acute dehydration Head injury Home Medications ?Medication ?Instructions ?Recorded ?Last Taken ?Type levothyroxine 50 mcg tablet 50 mcg PO .MICHELLE thyroid 06/07/14 12/06/23 History atorvastatin 40 mg tablet 40 mg PO QHS CHOLESTEROL 05/28/19 12/05/23 History escitalopram oxalate 10 mg tablet 10 mg PO DAILY DEPRESS 05/28/19 12/06/23 History levothyroxine 25 mcg tablet 75 mcg PO .[facility] thyroid 08/09/23 12/06/23 History acetaminophen 325 mg tablet 650 mg (2 x 325 mg) PO Q6H PRN PRN 12/06/23 Unknown Rx Pain 1-10 Or Fever>100.7 #0 tabs melatonin 3 mg tablet 3 mg PO QHS PRN PRN Insomnia #0 12/06/23 12/05/23 Rx tabs menthol 0.44 %-zinc oxide 20.6 % 1 applic topical BID redness 12/06/23 12/06/23 History topical ointment (Calmoseptine) insulin lispro 100 unit/mL 5 unit (0.05 mL) subcut TIDAC #0 mL 12/17/23 Unknown Rx subcutaneous pen (Humalog KwikPen (U-100) Insulin) magnesium citrate 300 ml PO DAILY PRN constipation 12/17/23 Unknown Rx #0 mL pantoprazole 20 mg tablet,delayed 20 mg PO BID #0 tabs 12/17/23 Unknown Rx release sennosides 8.6 mg-docusate sodium 1 tab PO BID #0 tabs 12/17/23 Unknown Rx 50 mg tablet (Stool Softener-Stimulant Laxative) ferrous sulfate 325 mg (65 mg 325 mg PO BID 03/03/25 Unknown History iron) tablet (FeroSul) insulin glargine 100 unit/mL (3 26 unit subcut QPM 03/03/25 Unknown History mL) subcutaneous pen (Lantus Solostar U-100 Insulin) insulin glargine 100 unit/mL (3 40 unit subcut .am 03/03/25 Unknown History mL) subcutaneous pen (Lantus Solostar U-100 Insulin) insulin lispro 100 unit/mL 1 sliding scale dose subcut .AC 03/03/25 Unknown History subcutaneous solution (Humalog U-100 Insulin) oxybutynin chloride 10 mg 10 mg PO DAILY 03/03/25 Unknown History tablet,extended release 24 hr Allergy/AdvReac Type Severity Reaction Status Date / Time venlafaxine HCl (From Allergy Rash Verified 03/03/25 14:19 Effexor) meclizine AdvReac Other Verified 03/03/25 14:19 Surgical History History of cholecystectomy History of knee joint replacement H/O: section Social History (Updated 12/06/23 @ 16:[address] Rubin Cordova MD) household members: none Smoking Status: Never smoker alcohol intake: never substance use type: does not use ROS ROS Narrative Unable to obtain ROS secondary to mental status Vital Signs Vital Signs Vital Signs: 03/03/25 14:11 03/03/25 14:15 03/03/25 14:18 Temperature 100 F H 100 F H Temperature Source Oral Oral Pulse Rate 131 H 130 H Respiratory Rate 36 H 36 H Respiratory Effort Respiratory Depth Respiratory Pattern Blood Pressure 130/67 H 130/67 H Blood Pressure Mean 88 88 Pulse Ox 90 93 94 Oxygen Delivery Method Nasal Cannula Non-Rebreather Nasal Cannula Oxygen Flow Rate (L/min) 10 15 10 Fraction of Inspired Oxygen (FIO2) 03/03/25 14:20 03/03/25 14:31 03/03/25 14:32 Temperature Temperature Source Pulse Rate 100 Respiratory Rate 14 Respiratory Effort Normal Normal Respiratory Depth Shallow Shallow Respiratory Pattern Tachypnea Tachypnea Normal Blood Pressure Blood Pressure Mean Pulse Ox 94 Oxygen Delivery Method Nasal Cannula Oxygen Flow Rate (L/min) 10 Fraction of Inspired Oxygen (FIO2) 50 03/03/25 15:10 03/03/25 15:15 03/03/25 15:18 Temperature 102.6 F H Temperature Source Core Pulse Rate 122 H 121 H 120 H Respiratory Rate 14 Respiratory Effort Respiratory Depth Respiratory Pattern Blood Pressure 71/51 L 97/70 108/61 Blood Pressure Mean 57 79 76 Pulse Ox 96 Oxygen Delivery Method Mechanical Ventilator Oxygen Flow Rate (L/min) Fraction of Inspired Oxygen (FIO2) 03/03/25 15:20 03/03/25 15:22 03/03/25 15:30 Temperature 102.6 F H 102 F H Temperature Source Core Core Pulse Rate 121 H 120 H Respiratory Rate 14 14 Respiratory Effort Respiratory Depth Respiratory Pattern Blood Pressure 108/61 119/61 Blood Pressure Mean 76 80 Pulse Ox 96 96 Oxygen Delivery Method Mechanical Ventilator Mechanical Ventilator Oxygen Flow Rate (L/min) Fraction of Inspired Oxygen (FIO2) 60 03/03/25 16:00 03/03/25 16:20 Temperature 101.2 F H 101 F H Temperature Source Core Pulse Rate 113 H 112 H Respiratory Rate 14 17 Respiratory Effort Respiratory Depth Respiratory Pattern Blood Pressure 119/51 L 127/74 H Blood Pressure Mean 73 91 Pulse Ox 97 100 Oxygen Delivery Method Mechanical Ventilator Oxygen Flow Rate (L/min) Fraction of Inspired Oxygen (FIO2) Weight Weight: 84.6 kg Body Mass Index (BMI) 37.6 Physical Exam Narrative General: Intubated and sedated HEENT: Atraumatic, normocephalic Eyes: Eyes closed, no spontaneous opening Neck: Supple Respiratory: Mechanically ventilated Cardiovascular: Sinus tachycardia GI: Soft, nondistended Extremities: No peripheral edema Musculoskeletal: Presently sedated and not moving extremities spontaneously Neuro: Unable to participate in neuro exam secondary to intubated and sedated Skin: No rashes appreciated Psych: Unable to cooperate secondary to intubated and sedated Results Lab / Micro Data 03/03/25 14:20 03/03/25 14:20 Labs: Laboratory Results - last 24 hr 03/03/25 14:20: WBC 13.5 H, RBC 3.39 L, Hgb 10.4 L, Hct 32.8 L, MCV 96.8, MCH 30.7, MCHC 31.7 L, RDW Std Deviation 49.9 H, RDW Coeff of Nicholas 14.1, Plt Count 191, MPV 10.9, Immature Gran % (Auto) 0.500, Neut % (Auto) 95.4 H, Lymph % (Auto) 2.2 L, Dickson % (Auto) 1.3, Eos % (Auto) 0.2, Baso % (Auto) 0.4, Absolute Neuts (auto) 12.9 H, Absolute Lymphs (auto) 0.30 L, Nucleated RBC % 0, Sodium 135, Potassium 3.9, Chloride 101, Carbon Dioxide 22.6, Anion Gap 12, BUN 22 H, Creatinine 0.96, Estim Creat Clear Calc 44.36 L, Est GFR (MDRD) Non-Af 60, BUN/Creatinine Ratio 23.4 H, Glucose 214 H, Lactic Acid 3.4 H*, Calcium 9.0, Total Bilirubin 2.53 H, AST 77 H, ALT 39 H, Alkaline Phosphatase 378 H, Troponin T High Sens 49 H, Total Protein 7.9, Albumin 3.7, Globulin 4.1, Albumin/Globulin Ratio 0.9 03/03/25 14:48: Urine Color Yellow, Urine Clarity Sl. Cloudy, Urine pH 5.0, Ur Specific Dowell 1.015, Urine Protein 100 H, Urine Glucose (UA) Normal, Urine Ketones Negative, Urine Occult Blood 150 H, Urine Nitrite Positive H, Urine Bilirubin Negative, Urine Urobilinogen 1 H, Ur Leukocyte Esterase 500 H, Urine RBC 0 SEEN, Urine WBC >100 SEEN, Ur Squamous Epith Cells 0 SEEN, Urine Bacteria 0 SEEN, Urine Mucus 0 SEEN Micro: Microbiology 03/03/25 14:48 Mucosa - Nose SARS-CoV-2, Influenza & RSV (PCR) - Final ABG Data ABG results: ABG 03/03/25 03/03/25 14:27 15:21 Specimen Type ART ART Sample Site R Radial L Radial pH 7.47 H 7.42 Bicarbonate Actual 21.7 L 25.7 Total CO2 23 27 Base Excess -2 1 O2 Saturation 96 96 O2 % 50.0 ABG pCO2 29.8 L 40.1 ABG pO2 78 84 Javon Test Positive Positive Respiration Rate 14 O2 Delivery Device Cannula Adult Vent Vent Mode Not entered AC Tidal Volume 400.0 POC PEEP 5 Imaging Radiology Impression Chest X-Ray 03/03/25 14:45 IMPRESSION: The tip of the endotracheal tube is at the level of the woodrow. It should be pulled back approximately 2 cm. Reading [id number] Assessment & Plan Assessment/Plan (1) Sepsis: (2) Acute hypoxic respiratory failure: PLAN: Plan # Sepsis suspect secondary to urinary versus pulmonary source -Patient presented tachycardic with heart rate of 131, temp of 102.6, tachypneic of 36 and hypoxic requiring ultimately mechanical ventilation, white blood cell count 13.5, lactic 3.4 and bilirubin 2.53 -Patient was transiently hypotensive with a pressure of 71/55 and a MAP of 57 which responded to titrating down sedation and IV fluids -Chest x-ray no acute process -UA with nitrite, leuk esterase, white blood cells though reported out no bacteria -CT abdomen ordered and pending given elevated liver function tests though that may just be due to her sepsis -Blood culture sent -Sputum culture sent after intubation -Urine culture sent -COVID/flu/RSV negative -Sending respiratory panel -Continue broad-spectrum antibiotics while awaiting culture and sensitivity data especially given unclear definitive source -Patient receiving 30 cc/kg IV fluids per sepsis protocol # Acute hypoxic respiratory failure -Requiring mechanical ventilation -Patient admitted to the ICU -[employer] consult -X-ray unrevealing -Given her vomiting there was concern that maybe she aspirated, it is possible that this is not yet showed up on imaging -Patient to be on antibiotics as above -COVID/flu/RSV negative -Will check respiratory panel -Sputum culture was sent -Nebs ordered # Elevated troponin - Troponin of 49, suspect this is secondary to the above with patient's hypoxia and sepsis - Patient will be monitored on telemetry in ICU #Type 2 diabetes mellitus -Glucose checks and sliding scale insulin -Patient will be n.p.o., holding long-acting insulin and holding Premeal until patient able to eat or tube feeds initiated #GERD -Continue PPI #Depression/anxiety - Can resume Lexapro once patient extubated and tolerating p.o. #Hypothyroidism -Continue Synthroid #DVT ppx: Lovenox subcu Desiree Trent MD Sepsis Attestation Sepsis Alert: Yes Sepsis Attestation: Agree w/Sepsis Date exam was performed: 03/03/25 Time exam was performed: 15:30 Possible Source of Sepsis: Pulmonary, GI tract/intra-abdominal and Genitourinary Sepsis Organ Dysfunction Criteria Present: Acute Respiratory Failure (New need for BiPAP/CPAP or MV), Total Bilirubin > 2 mg/dl, Lactic Acid > 2 mmol/L and New/Unexplained change in mental status Fluid Resuscitation Fluid resuscitation indicated?: Yes Fluid Resuscitation ordered: 30 ml/kg fluid bolus ordered Amount of fluid ordered: 2,500 Charges/Coding Visit Charges Inpatient E&M: 99665 Init Hosp L3
[2025-03-03] MEDS: fentaNYL drip 100 ML 5 MCG CONT INF (17:30)
[2025-03-03] MEDS: Vancomycin HCl 2,000 MG in 0.9% Normal Saline (500mL Bag) 500 ML 250 MG IV (17:44)
--- NOTE | 2025-03-03 17:59 | PHA.PHARE_ITS ---
Consult Antibiotic Management Pharmacy has been consulted to manage selected antibiotic: Vancomycin Type of Intervention Type of Consult: New start Suspected Infection Suspected Infection: Sepsis Prior Doses of Antibiotics Prior Doses of Antibiotics Received/Current Regimen: LD of 2000 mg given 03/03 @ 1744 Labs Labs: Sodium 135 mmol/L (133-145) 03/03/25 14:20 Potassium 3.9 mmol/L (3.3-5.1) 03/03/25 14:20 Chloride 101 mmol/L (98-108) 03/03/25 14:20 Carbon Dioxide 22.6 mmol/L (21.0-32.0) 03/03/25 14:20 Anion Gap 12 (5-15) 03/03/25 14:20 BUN 22 mg/dL (4-19) H 03/03/25 14:20 Creatinine 0.96 mg/dL (0.70-1.20) 03/03/25 14:20 Est GFR (MDRD) Non-Af 60 (>60) 03/03/25 14:20 BUN/Creatinine Ratio 23.4 RATIO (10-20) H 03/03/25 14:20 Glucose 214 mg/dL (70-99) H 03/03/25 14:20 Microbiology Microbiology: Microbiology 03/03/25 14:48 Mucosa - Nose SARS-CoV-2, Influenza & RSV (PCR) - Final Dosing Weight Weight used for dosin.9 kg Estimated Creatinine Clearance Estimated Creatinine Clearance: 44.4 Goal Trough Goal Trough: 15-20 mcg/mL Pharmacy Plan for Drug Dosing Pharmacy Plan for Drug Dosing: Pharmacy Service will continue to mNEW START IV VANCOMYCIN Consulting Physician: Twan Indication: Sepsis (PNA vs. UTI) Goal Trough: 15-20 SCr: 0.96 CrCl: 44.4 WBC: 13.5 Comments: DOSING WEIGHT: 60.9 kg Cultures: - Blood: pending - Urine: pending - Sputum: pending - MRSA PCR: pending Imaging: - ABD CT: Pulmonary parenchymal opacities to be correlated for as piration/pneumonia Vancomycin Dose: 1250 mg Q24H with first dose 03/04/25 @ 1800 Pending Level: 03/06/25 @ 1730 Date/Time Labs Ordered Labs to be done on [date and time ordered]: 03/06/25 @ 1734
--- NOTE | 2025-03-03 18:09 | PCM.HOSP.N ---
Hospitalist Note CT scan suspicious for both aspiration pneumonia and possible UTI, will continue cover broadly as above while waiting further culture and sensitivity data and clinical progress. There were nonspecific GI findings of unclear significance but suspect patient's presentation is due to a combination of the above
[2025-03-03 18:19] LABS: Troponin T High Sens 2 HR 25 ng/L (<=14)
[2025-03-03 18:24] LABS: Reflex Lactate? Y
[2025-03-03 18:30] LABS: CPK Total, Creatine Kinase 48 U/L (24-195); Triglycerides 119 mg/dL
[2025-03-03 20:30] LABS: Troponin T High Sens 4 HR 54 ng/L (<=14)
[2025-03-03] MEDS: Chlorhexidine 15 ML PO (20:52)
[2025-03-03] MEDS: Piperacil/Tazobactam 3.375 GM in 0.9% Normal Saline (50mL MB+) 50 ML IV (20:59)
--- OUTSIDE RECORDS SUMMARY | 2025-03-03 21:17 | XMS RPT_ITS | CCD ---
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 Peter Ellis Primary Care Provider [phone] Dr. Santos Mckeon Emergency Provider Dr. Mitzy Strauss Attending Provider Unavailable Dr. Mitzy Strauss Admit Provider Unavailable Dr. Mitzy Strauss Other Provider Unavailable Dr. Wes Alva Attending Provider Dr. Wes Alva Other Provider Dr. Lola Marquez Emergency Provider Dr. Mitzy Pratt Admit Provider Unavailkatie e Dr. Mitzy Pratt Other Provider Unavailabl e Dr. Carl Couch Attending Provider Dr. Carl Couch Other Provider Dr. Peter Ellis Primary Care Provider Dr. Santos Mckeon Emergency Provider Dr. Mitzy Strauss Attending Provider Unavailable Dr. Mitzy Strauss Admit Provider Unavailable Dr. Mitzy Strauss Other Provider Unavailable Dr. Wes Alva Attending Provider Dr. Wes Alva Other Provider Dr. Lola Marquez Emergency Provider [phone] Mitzy Pratt Admit Provider Unavailabl e Dr. Mitzy Pratt Other Provider Unavailabl e Dr. Carl Couch Attending Provider Dr. Carl Couch Other Provider Peter Ellis MD Primary Care Provider ORIN SOSA Referring Unavailable TALAMPAS, PETER D Primary Care Unavailable TALAMPAS, PETER D Attending Unavailable TALAMPAS, PETER D Primary Care Unavailable TALAMPAS, PETER D Referring Unavailable TALAMPAS, PETER D Primary Care Unavailable TALAMPAS, PETER D Primary Care Unavailable TALAMPAS, PETER D Attending Unavailable TALAMPAS, PETER D Primary Care Unavailable TALAMPAS, PETER D Referring Unavailable TALAMPAS, PETER D Primary Care Unavailable ORIN SOSA Attending Unavailable IANORIN Referring Unavailable TALAMPAS, PETER D Primary Care Unavailable Dr. Peter Ellis MD Primary Care Provider Dr. Darcy Elias MD Attending Provider Unavaila ble Talampas, Peter D Primary Care Unavailable Juve Benitez Attending Unavailable Talampas, Peter D Primary Care Unavailable Clayton Johnson Attending Unavailable Talampas, Peter D Primary Care Unavailable Darcy Herrera Attending Unavailable Clayton Johnson Attending Unavailable Talampas, Peter D Primary Care Unavailable Talampas, Peter D Primary Care Unavailable Darcy Herrera Attending Unavailable Talampas, Peter D Primary Care Unavailable Juve Benitez Attending Unavailable Dr. Peter Ellis MD Primary Care Provider [phone] Dr. Juve Dejesus MD Attending Provider Unavail able Dr. Frieda Laurent MD Emergency Provider Unavailab tramaine Trent MD, Dr. Ramírez Admit Provider Dr. Desiree Trent MD Attending Provider [phone] Allergies Allergy Classification Reported Allergen(s) Allergy Type Date of Onset Reaction(s) Facility (20 sources) Contrast media; Translations: [CONTRAST DYE] Drug Intolerance 4 GI Upset [facility] Work Phone: (20 sources) FLUoxetine; Translations: [FLUOXETINE] Drug Allergy 9 Intolerance [facility] Work Phone: (20 sources) Meclizine; Translations: [MECLIZINE] Drug Allergy 4 Mental Status Change, Other: See Comments [facility] Work Phone: Comment on above: PT BECAME EXTREMELY FATIGUED & WAS UNABLE TO WALK AFTER TAKING 12.5MG OF MECLIZINE. (20 sources) venlafaxine; Translations: [VENLAFAXINE HCL] Drug Allergy 9 Rash [facility] Comment on above: CHEST BROKE OUT, GOT REAL DIZZY. (1 source) Meclizine Drug Allergy 4 [facility] (1 source) venlafaxine Drug Allergy 4 [facility] Medications Current Medications Medication Drug Class(es) Dates Sig (Normalized) Sig (Original) acetaminophen 325 mg oral tablet (2 sources) Start: 12-06-2023 take 1-10 tablets by mouth every six hours as needed for pain Acetaminophen 325 mg Tablet Active 650 mg PO EVERY 6 HOURS NEEDED as needed for Pain 1-10 Or Fever>100.7 0 0 December 06, 2023 12:00am atorvastatin 40 mg oral tablet (20 sources) HMG-CoA Reductase Inhibitor Start: 05-28-2019 End: 09-12-2022 take 1 tablet by mouth at bedtime Atorvastatin 40 MG tablet Active 40 mg PO AT BEDTIME May 28, 2019 1:00am CHOLESTEROL Comment on above: Take 1 tablet by heraclio every morning. benoxinate hydrochloride 4 mg/ml / fluorescein sodium 2.5 mg/ml ophthalmic solution (1 source) Diagnostic Dye Start: 01-09-2022 End: 01-09-2022 fluorescein-benoxin ate 0.25-0.4 % 1 Drop (FLURESS) Blood-Glucose Meter,Continuous (FREESTYLE PILAR 3 READER) misc (4 sources) Start: 11-12-2023 Blood-Glucose Meter,Continuous (FREESTYLE PILAR 3 READER) misc Indications: Uncontrolled type 2 diabetes mellitus with hyperglycemia (HCC) Use to check blood sugar at least four (4) times daily. 1 Each 0 11/12/2023 Active Blood-Glucose Sensor (FREESTYLE PILAR 3 SENSOR) julisa (4 sources) Start: 11-12-2023 Blood-Glucose Sensor (FREESTYLE PILAR 3 SENSOR) julisa Indications: Uncontrolled type 2 diabetes mellitus with hyperglycemia (HCC) Apply new sensor every fourteen (14) days to upper arm. 6 Each 4 11/12/2023 Active docusate sodium 50 mg / sennosides, long term 8.6 mg oral tablet (2 sources) Start: 12-17-2023 Sennosides-Docusate Sodium (Stool Softener-Stimulant Laxat) 8.6-50 mg Tablet Active 1 {tbl} PO TWICE A DAY 0 December 17, 2023 12:00am dulaglutide (TRULICITY) 3 mg/0.5 mL pen injector (5 sources) Start: 09-01-2023 inject 3 mg by subcutaneous injection every week dulaglutide (TRULICITY) 3 mg/0.5 mL pen injector Indications: Type 2 diabetes mellitus without complication, without long-term current use of insulin (HCC) Inject 3 mg subcutaneously one time a week. Gets through [employer] PAP. 4 Each 3 09/01/2023 Active empagliflozin 25 mg oral tablet (20 sources) Sodium-Glucose Cotransporter 2 Inhibitor Start: 07-25-2022 take 1 tablet by mouth once daily at breakfast empagliflozin (JARDIANCE) 25 mg tablet Take 1 tablet by mouth daily with breakfast. Gets through [employer] PAP. 0 07/25/2022 Active Start: 05-28-2019 End: 12-03-2023 take 1 tablet by mouth once daily Empagliflozin 10 MG tablet Discontinued 10 mg PO DAILY May 28, 2019 1:00am December 03, 2023 12:22am dm Comment on above: Take 1 tablet by heraclio th daily with breakfast. Take 1 tablet by heraclio th daily with breakfast. Gets through [employer] PAP. escitalopram 10 mg oral tablet (20 sources) Serotonin Reuptake Inhibitor Start: 9 End: 3 take 1 tablet by mouth once daily Escitalopram Oxalate 10 MG tablet Active 10 mg PO DAILY May 28, 2019 1:00am DEPRESS Comment on above: Take 1 tablet by heraclio th once daily. ferrous sulfate 325 mg oral tablet (20 sources) Start: 5 take 1 tablet by mouth twice daily Ferrous Sulfate (Ferosul) 325 mg (65 mg iron) tablet Active 325 mg PO TWICE A DAY March 03, 2025 12:00am Start: 01-10-2021 End: 06-20-2022 take 1 tablet by mouth twice daily at mealtime ferrous sulfate 325 mg (65 mg iron) tablet Indications: Weakness , Falls frequently , Iron deficiency anemia, unspecified iron deficiency anemia type Take 1 tablet by mouth twice daily with meals. 180 tablet 2 01/10/2021 06/20/2022 Discontinued take 1 tablet by heraclio th once daily ferrous sulfate 325 mg (65 mg iron) tablet Take 325 mg by mouth once daily. 0 Active Comment on above: Take 1 tablet by heraclio th twice daily with meals. Take 325 mg by mouth once daily. 3 ml insulin glargine 100 unt/ml pen injector (2 sources) Insulin Analog Start: 03-03-2025 Insulin Glargine (Lantus Solostar U-100 Insulin) 100 unit/mL (3 mL) insulin pen Active 40 U SC .am March 03, 2025 12:00am Start: 03-03-2025 Insulin Glargi ne (Lantus Solostar U-100 Insulin) 100 unit/mL (3 mL) insulin pen Active 26 U SC EVERY EVENING March 03, 2025 12:00am Insulin Glargine-Yfgn (2 sources) Start: 08-16-2023 Insulin Glargi ne-Yfgn Active 45 UNIT SC AT BEDTIME 0 August 16, 2023 1:00am Start: 08-16-2023 Insulin Glargi ne-Yfgn Active 45 UNIT SC AT BEDTIME 0 August 16, 2023 12:00am insulin lispro 100 unt/ml injectable solution (9 sources) Insulin Analog Start: 03-03-2025 Insulin Lispro (Humalog U-100 Insulin) 100 unit/mL solution Active 1 sliding scale dose SC .AC March 03, 2025 12:00am Start: 12-17-2023 Insulin Lispro (Humalog Kwikpen Insulin) 100 unit/mL Insulin Pen Active 5 U SC THREE TIMES DAILY BEFORE MEALS 0 0 December 17, 2023 12:00am Start: 12-06-2023 End: 12-17-2023 Insulin Lispro (Humalog Kwik pen Insulin) 100 unit/mL Insulin Pen Discontinued 0 U SC BEFORE MEALS AND AT BEDTIME 0 0 December 06, 2023 12:00am December 17, 2023 8:57pm diabetic Please contact the information source for Protocol details. Start: 08-16-2023 End: 12-03-2023 Insulin Lispro (Humalog Kwik pen Insulin) 100 unit/mL Insulin Pen Discontinued 0 U SC BEFORE MEALS AND AT BEDTIME 0 0 August 16, 2023 1:00am December 03, 2023 12:21am Please contact the information source for Protocol details. Start: 08-16-2023 Insulin Lispro (Humalog Kwikpen Insulin) 100 unit/mL Insulin Pen Active 0 UNIT SC BEFORE MEALS AND AT BEDTIME 0 August 16, 2023 1:00am levothyroxine sodium 0.025 mg oral tablet (20 sources) l-Thyroxine Start: 08-09-2023 Levothyroxine 25 mcg tablet Active [facility] August 09, 2023 1:00am thyroid Start: 08-09-2023 Levothyroxine 25 mcg tablet Active 25 [facility] August 09, 2023 1:00am Start: 02-28-2023 take 1 tablet by mouth once le vothyroxine (SYNTHROID) 25 mcg tablet Take 1 tablet by mouth every Friday,Friday,Friday. Take on empty stomach. For thyroid. Add to the levothyroxine 50 mcg once daily dosing but just on Fri-Fri-Fri 12 tablet 11 02/28/2023 Active Start: 06-07-2014 End: 09-12-2022 take 1 tablet by mouth five times weekly, then take 1.5 tablets by mouth two times weekly levothyroxine (SYNTHROID) 50 mcg tablet Indications: Acquired hypothyroidism Take 1 tablet by mouth five times a week AND 1.5 tablets two times a week. 110 tablet 3 08/13/2021 09/12/2022 Discontinued Start: 06-07-2014 take 1 tablet by heraclio th once daily levothyroxine (SYNTHROID) 50 mcg tablet Indications: Acquired hypothyroidism Take 1 tablet by mouth once daily. 90 tablet 3 09/25/2023 Active Comment on above: Take 1 tablet by heraclio th five times a week AND 1.5 tablets two times a week. Take 1 tablet by heraclio th once daily. Take 1 tablet by heraclio th every Friday,Friday,Friday. Take on empty stomach. For thyroid. Add to the levothyroxine 50 mcg once daily dosing but just on Fri- magnesium citrate 58.2 mg/ml oral solution (2 sources) Start: 12-17-19 take 1 mL by mouth once daily as needed for constipation Magnesium Citrate Solution Active 300 mL PO DAILY as needed for constipation 0 0 December 17, 2023 12:00am melatonin 3 mg oral tablet (2 sources) Start: 12-06-19 take 1 tablet by mouth at bedtime as needed Melatonin 3 mg Tablet Active 3 mg PO AT BEDTIME NEEDED as needed for Insomnia 0 0 December 06, 2023 12:00am Menthol / Zinc Oxide (4 sources) Start: 12-06-19 Menthol-Zinc Oxide (Calmoseptine) 0.44-20.6 % Ointment Active 1 NMA TOPICAL TWICE A DAY December 06, 2023 12:00am redness Apply to bilat buttocks Please contact the information source for Protocol details. Start: 12-06-2023 End: 12-06-2023 Menthol-Zinc Oxide (Calmosep italo) 0.44-20.6 % Ointment Discontinued 1 NMA TOPICAL TWICE A DAY 0 0 December 06, 2023 12:00am December 06, 2023 2:14pm Please contact the information source for Protocol details. Start: 12-06-2023 Menthol-Zinc O xide (Calmoseptine) 0.44-20.6 % Ointment Active 1 NMA TOPICAL TWICE A DAY December 06, 2023 12:00am Apply to bilat buttocks Please contact the information source for Protocol details. Start: 12-06-2023 End: 12-06-2023 Menthol-Zinc Oxide (Calmosep italo) 0.44-20.6 % Ointment Discontinued 1 NMA TOPICAL TWICE A DAY 0 December 06, 2023 12:00am December 06, 2023 2:14pm Please contact the information source for Protocol details. 24 hr metFORMIN hydrochloride 500 mg extended release oral tablet (20 sources) Biguanide Start: 09-25-2023 take 4 tablets by mouth once daily metFORMIN ER (GLUCOPHAGE XR) 500 mg 24 hr tablet Take 4 tablets by mouth once daily. 360 tablet 3 09/25/2023 Active Start: 04-15-2022 End: 09-12-2022 take 4 tablets by mouth once daily metFORMIN ER (GLUCOPHAGE XR) 500 mg 24 hr tablet Take 4 tablets by mouth once daily. 360 tablet 3 09/12/2022 Active Start: 01-10-2021 End: 12-11-2021 take 4 tablets by mouth once daily metFORMIN ER (GLUCOPHAGE XR) 500 mg 24 hr tablet Take 4 tablets by mouth once daily. 360 tablet 3 12/11/2021 Active Start: 06-07-2014 End: 12-06-2023 Metformin 500 MG tablet exte nded release 24 hr Discontinued 2000 mg PO WITH BREAKFAST June 07, 2014 1:00am December 06, 2023 8:59am DM Start: 06-07-2014 take 2000 mg by mout h at breakfast Metformin Active 2000 MG PO WITH BREAKFAST June 07, 2014 1:00am Comment on above: Take 4 tablets by mo uth once daily. 24 hr oxybutynin chloride 10 mg extended release oral tablet (1 source) Cholinergic Muscarinic Antagonist Start: take 1 tablet by mouth once daily Oxybutynin Chloride 10 mg tablet extended release 24hr Active 10 mg PO DAILY March 03, 2025 12:00am pantoprazole 20 mg delayed release oral tablet (20 sources) Proton Pump Inhibitor Start: take 1 tablet by mouth twice daily Pantoprazole 20 mg Tablet,Delayed Release (Dr/Ec) Active 20 mg PO TWICE A DAY 0 0 December 17, 2023 12:00am Start: 06-07-2014 End: 12-17-2023 take 1 tablet by mouth at breakfast Pantoprazole 40 MG tablet Discontinued 40 mg PO WITH BREAKFAST June 07, 2014 1:00am December 17, 2023 8:57pm GERD Comment on above: Take 1 tablet by heraclio th daily before breakfast. Take on empty stomach, 1/2 hr before meal. phenylephrine hydrochloride 25 mg/ml ophthalmic solution (1 source) alpha-1 Adrenergic Agonist Start: 01-09-2022 End: 01-09-2022 PHENYLephrine 2.5 % 1 Drop (AK-DILATE, TJ-SYNEPHRINE) tropicamide 10 mg/ml ophthalmic solution (1 source) Anticholinergic Start: 01-09-2022 End: 01-09-2022 tropicamide 1 % 1 Drop (MYDRIACYL) Completed/Discontinued Medications Medication Drug Class(es) Dates Sig (Normalized) Sig (Original) aspirin 81 mg delayed release oral tablet (20 sources) Platelet Aggregation Inhibitor, Nonsteroidal Anti-inflammatory Drug Start: 05-28-2019 End: 03-03-2025 take 1 tablet by mouth once daily Aspirin 81 MG tablet Discontinued 81 mg PO DAILY@0800 May 28, 2019 1:00am March 03, 2025 4:02pm cad Comment on above: Take 1 tablet by heraclio th once daily. will stop if any GI adverse effects COMPOUNDED PRESCRIPTION (12 sources) Start: 01-09-2017 End: 09-12-2022 COMPOUNDED PRESCRIPTION Indications: Heart palpitations BLOOD PRESSURE CUFF FOR HOME USE. DX: R00.2, E11.65 1 Device 0 01/09/2017 09/12/2022 Discontinued Start: 01-09-2017 COMPOUNDED PRE SCRIPTION Indications: Heart palpitations BLOOD PRESSURE CUFF FOR HOME USE. DX: R00.2, E11.65 1 Device 0 01/09/2017 Active Comment on above: BLOOD PRESSURE CUFF FOR HOME USE. DX: R00.2, E11.65 Dulaglutide (13 sources) GLP-1 Receptor Agonist Start: 12-03-2023 End: 12-06-2023 Dulaglutide (Trulicity) 3 mg/0.5 mL pen injector Discontinued 3 mg SC EVERY WEEK December 03, 2023 12:00am December 06, 2023 8:59am diabtes Start: 12-03-2023 End: 12-06-2023 Dulaglutide (Trulicity) 3 mg /0.5 mL pen injector Discontinued 3 mg SC EVERY WEEK December 03, 2023 12:00am December 06, 2023 8:59am Start: 09-19-2021 End: 07-25-2022 inject 1.5 mg by subcutaneous injection every week dulaglutide (TRULICITY) 1.5 mg/0.5 mL pen injector Indications: Controlled type 2 diabetes mellitus without complication, without long-term current use of insulin (HCC) Inject 1.5 mg subcutaneously one time a week. 8 mL 2 09/19/2021 07/25/2022 Discontinued Comment on above: Inject 1.5 mg subcut aneously one time a week. dulaglutide (TRULICITY) 3 mg/0.5 mL pen injector (12 sources) Start: 023 inject 3 mg by subcutaneous injection every week dulaglutide (TRULICITY) 3 mg/0.5 mL pen injector Inject 3 mg subcutaneously one time a week. Gets through [employer] PAP. 0 07/25/2022 Active Comment on above: Inject 3 mg subcutan eously one time a week. Gets through [employer] PAP. ferrous gluconate 324 mg oral tablet (10 sources) Start: 024 End: 025 take 1 tablet by mouth twice daily at mealtime Ferrous Gluconate 324 mg (37.5 mg iron) Tablet Discontinued 324 mg PO TWICE DAILY WITH MEALS 0 0 December 17, 2023 12:00am March 03, 2025 4:00pm Start: 05-28-2019 End: 12-17-2023 Ferrous Gluconate 236 MG tab let Discontinued 65 mg PO TWICE A DAY May 28, 2019 1:00am December 17, 2023 8:56pm supplement Start: 05-28-2019 End: 12-17-2023 Ferrous Gluconate 236 MG tab let Discontinued 65 mg PO TWICE A DAY May 28, 2019 1:00am December 17, 2023 8:56pm Start: 05-28-2019 take 65 mg by mouth twice daily Ferrous Gluconate Active 65 MG PO TWICE A DAY May 28, 2019 1:00am Start: 05-28-2019 take 65 mg by mouth twice daily Ferrous Gluconate Active 65 MG PO TWICE A DAY May 28, 2019 12:00am glipiZIDE er 10 mg 24 hr extended release oral tablet (20 sources) Sulfonylurea Start: 09-25-2023 End: 12-06-2023 take 1 tablet by mouth once daily Glipizide 10 mg tablet extended release 24hr Discontinued 10 mg PO DAILY December 03, 2023 12:00am December 06, 2023 8:59am diabetes Start: 08-12-2023 End: 12-06-2023 take 1 tablet by mouth twice daily Glipizide 10 mg tablet Discontinued 10 mg PO TWICE A DAY 60 0 August 12, 2023 1:00am December 06, 2023 8:59am dm Start: 01-19-2021 End: 08-12-2023 take 1 tablet by mouth once daily Glipizide 10 mg tablet extended release 24hr Discontinued 10 mg PO DAILY August 09, 2023 1:00am August 12, 2023 2:04pm DIABETES Start: 06-07-2014 End: 08-09-2023 take 4 tablets by mouth at dinner Glipizide 5 MG tablet Discontinued 20 mg PO WITH DINNER June 07, 2014 1:00am August 09, 2023 11:41pm Start: 06-07-2014 End: 08-09-2023 take 20 mg by mouth at dinner Glipizide Discontinued 2 0 MG PO WITH DINNER June 07, 2014 1:00am August 09, 2023 11:41pm Comment on above: Take 1 tablet by heraclio th once daily. Insulin Glargine-Yfgn 100 unit/mL (3 mL) Insulin Pen (6 sources) Start: 12-17-2023 End: 03-03-2025 Insulin Glargine-Yfgn 100 unit/mL (3 mL) Insulin Pen Discontinued 35 U SC TWICE A DAY 0 0 December 17, 2023 12:00am March 03, 2025 4:02pm Start: 12-17-2023 Insulin Glargi ne-Yfgn 100 unit/mL (3 mL) Insulin Pen Active 35 U SC TWICE A DAY 0 December 17, 2023 12:00am Start: 12-06-2023 End: 12-17-2023 Insulin Glargine-Yfgn 100 un it/mL (3 mL) Insulin Pen Discontinued 30 U SC TWICE A DAY 0 0 December 06, 2023 12:00am December 17, 2023 8:57pm diabetic Start: 12-06-2023 End: 12-17-2023 Insulin Glargine-Yfgn 100 un it/mL (3 mL) Insulin Pen Discontinued 30 U SC TWICE A DAY 0 December 06, 2023 12:00am December 17, 2023 8:57pm Start: 08-16-2023 End: 12-03-2023 Insulin Glargine-Yfgn 100 un it/mL (3 mL) Insulin Pen Discontinued 45 U SC AT BEDTIME 0 0 August 16, 2023 1:00am December 03, 2023 12:21am Start: 08-16-2023 End: 12-03-2023 Insulin Glargine-Yfgn 100 un it/mL (3 mL) Insulin Pen Discontinued 45 U SC AT BEDTIME 0 August 16, 2023 1:00am December 03, 2023 12:21am nitrofurantoin, macrocrystals 100 mg oral capsule (4 sources) Nitrofuran Antibacterial Start: 08-16-2023 End: 12-03-2023 take 1 capsule by mouth twice daily at mealtime Nitrofurantoin Macrocrystal 100 mg capsule Discontinued 100 mg PO TWICE A DAY 10 5 0 August 16, 2023 1:00am December 03, 2023 12:21am must administer with a meal/food 24 hr tolterodine tartrate 4 mg extended release oral capsule (2 sources) Cholinergic Muscarinic Antagonist Start: 12-17-2023 End: 03-03-2025 take 1 capsule by mouth every twenty-four hours at bedtime Tolterodine 4 mg Capsule,Extended Release 24hr Discontinued 4 mg PO AT BEDTIME 0 0 December 17, 2023 12:00am March 03, 2025 4:03pm vitamin b12 1 mg oral tablet (11 sources) Vitamin B12 Start: 12-11-2021 End: 09-12-2022 take 1 tablet by mouth once daily cyanocobalamin (VITAMIN B-12) 1,000 mcg tab Take 1 tablet by mouth once daily. 90 tablet 3 12/11/2021 09/12/2022 Discontinued Comment on above: Take 1 tablet by heraclio th once daily. Problems Active Problems Problem Classification Problem Date Documented Da te Episodic/Chronic Calculus of urinary tract (1 source) Recurrent kidney stone; Translations: [Calculus of kidney] Episodic Cataract (1 source) Bilateral senile combined form cataracts of eyes; Translations: [Combined forms of age-related cataract, bilateral] Chronic Deficiency and other anemia (20 sources) Iron deficiency anemia; Translations: [Iron deficiency anemia, unspecified] Onset: 2 08-13-2021 Episodic Deficiency and other anemia (6 sources) Chronic anemia; Translations: [Anemia, unspecified] 08-09-2023 Episodic Deficiency and other anemia (7 sources) Anemia, unspecified; Translations: [Anemia, unspecified] Onset: 4 08-12-2023 Episodic Deficiency and other anemia (1 source) Anemia; Translations: [Anemia, unspecified] 11-14-2023 Episodic Diabetes mellitus with complications (20 sources) Type II diabetes mellitus uncontrolled; Translations: [Type 2 diabetes mellitus with hyperglycemia] Onset: 2 Resolved: 3 08-13-2021 Chronic Diabetes mellitus without complication (18 sources) Diabetes mellitus type 2 without retinopathy; Translations: [Type 2 diabetes mellitus without complications] Onset: 7 Resolved: 5 Chronic Diabetes mellitus without complication (8 sources) Hyperglycemia; Translations: [Hyperglycemia, unspecified] 08-15-2023 Episodic Disorders of lipid metabolism (20 sources) Hyperlipidemia; Translations: [Hyperlipidemia, unspecified] Onset: 7 Resolved: 5 04-02-2015 Chronic Esophageal disorders (20 sources) Gastroesophageal reflux disease; Translations: [Gastro-esophageal reflux disease without esophagitis] Onset: 7 01-05-2007 Chronic Esophageal disorders (2 sources) Disorder of esophagus; Translations: [Disease of esophagus, unspecified] 12-06-2023 Episodic Fluid and electrolyte disorders (10 sources) Dehydration; Translations: [Dehydration] 08-09-2023 Episodic Genitourinary symptoms and ill-defined conditions (20 sources) Incontinence; Translations: [Mixed incontinence] Onset: 9 08-04-2008 Chronic Malaise and fatigue (20 sources) Asthenia; Translations: [Weakness] Onset: 9 04-15-2019 Episodic Mood disorders (12 sources) Depressive disorder; Translations: [Depression, unspecified depression type] Onset: 7 Resolved: 5 Chronic Nutritional deficiencies (2 sources) Vitamin D deficiency; Translations: [Vitamin D deficiency, unspecified] Onset: 3 02-28-2023 Chronic Other aftercare (6 sources) Patient encounter status; Translations: [Other termite treater (current) drug therapy] Episodic Other aftercare (1 source) Encounter for therapeutic drug level monitoring; Translations: [Encounter for therapeutic drug monitoring] Onset: 4 Episodic Other connective tissue disease (1 source) Repeated falls; Translations: [Frequent falls] Onset: 4 Episodic Other connective tissue disease (1 source) Muscle weakness (generalized); Translations: [Muscle weakness (generalized)] Onset: 5 Episodic Other eye disorders (1 source) Epithelial basement membrane dystrophy; 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] Episodic Other gastrointestinal disorders (2 sources) Dysphagia; Translations: [Dysphagia, unspecified] 12-29-2023 Episodic Other injuries and conditions due to external causes (13 sources) Closed injury of head; Translations: [Unspecified injury of head, initial encounter] 09-21-2022 Episodic Other nervous system disorders (2 sources) Disorder of brain; Translations: [Encephalopathy, unspecified] 12-29-2023 Chronic Other nervous system disorders (2 sources) Metabolic encephalopathy; Translations: [Metabolic encephalopathy] 12-14-2023 Chronic Other nervous system disorders (1 source) Metabolic encephalopathy; Translations: [Metabolic encephalopathy] Onset: Chronic Other nutritional; endocrine; and metabolic disorders (20 sources) Obesity; Translations: [Obesity, unspecified] Onset: 7 04-02-2015 Chronic Other nutritional; endocrine; and metabolic disorders (11 sources) Adult failure to thrive syndrome; Translations: [Adult failure to thrive] 08-09-2023 Episodic Other screening for suspected conditions (not mental disorders or infectious disease) (20 sources) Mammography abnormal; Translations: [Other abnormal and inconclusive findings on diagnostic imaging of breast] Onset: 3 02-19-2013 Episodic Superficial injury; contusion (14 sources) Injury of forehead; Translations: [Contusion of other part of head, initial encounter] 09-21-2022 Episodic Thyroid disorders (20 sources) Hypothyroidism; Translations: [Hypothyroidism, unspecified] Onset: 7 Resolved: 5 04-02-2015 Chronic Unclassified (1 source) OPENED IN ERROR Unclassified (6 sources) No history of clinical finding in subject; Translations: [No significant past medical history] 05-31-2019 Urinary tract infections (8 sources) Acute urinary tract infection; Translations: [Urinary tract infection, site not specified] 08-15-2023 Episodic Past or Other Problems Problem Classification Problem Date Documented Da te Episodic/Chronic Conditions associated with dizziness or vertigo (20 sources) Benign paroxysmal positional vertigo; Translations: [Benign paroxysmal vertigo, unspecified ear] Onset: 03-04-2012 03-04-2012 Episodic Deficiency and other anemia (2 sources) Iron deficiency anemia, unspecified; Translations: [Iron deficiency anemia, unspecified iron deficiency anemia type] Onset: 08-13-2021 Episodic Disorders of teeth and jaw (20 sources) Difficulty chewing; Translations: [Other specified disorders of teeth and supporting structures] Onset: 02-25-2021 02-25-2021 Episodic Nutritional deficiencies (20 sources) Cobalamin deficiency; Translations: [Deficiency of other specified B group vitamins] Onset: 08-13-2021 08-13-2021 Episodic Other aftercare (1 source) Other skilled nursing (current) drug therapy; Translations: [Encounter for long-term current use of medication] Onset: 02-28-2023 Episodic Other connective tissue disease (20 sources) Recurrent falls ; Translations: [Repeated falls] Onset: 04-15-2019 04-15-2019 Episodic Other ear and sense organ disorders (20 sources) Tinnitus; Translations: [Tinnitus, unspecified ear] Onset: 03-04-2012 03-04-2012 Episodic Other gastrointestinal disorders (1 source) Full incontinence of feces; Translations: [Incontinence of feces, unspecified fecal incontinence type] Onset: 08-25-2023 Episodic Other nutritional; endocrine; and metabolic disorders (7 sources) Adult failure to thrive; Translations: [Adult failure to thrive] Onset: 08-25-2023 08-12-2023 Episodic Residual codes; unclassified (1 source) Disorientation, unspecified; Translations: [Confusion] Onset: 08-25-2023 Episodic Unclassified (5 sources) Type 2 diabetes mellitus without complication; Translations: [Uncontrolled type 2 diabetes mellitus without complication, without long-term current use of insulin] Onset: 01-25-2016 Resolved: 08-20-2018 08-20-2018 Results Test Name Value Interpretation Reference Range Facility Absolute lymphocyte countOrd ered By: Frieda Laurent on 03-03-2025 Lymphocytes Auto (Unsp spec) [#/Vol] 0.30 10*3/uL Low 0.83-4.51 [facility] Absolute neutrophil countOrd ered By: Frieda Laurent on 03-03-2025 Neutrophils (Bld) [#/Vol] 12.9 10*3/uL High 2.0-7.7 [facility] Anion gap in Serum or Plasma Ordered By: Frieda Laurent on 03-03-2025 Anion gap [Moles/Vol] 12 mmol/L 5-15 [facility] Assessment of wrist artery p atency prior to arterial punctureOrdered By: Frieda Laurent on 03-03-2025 Arterial patency Wrist artery --pre arterial puncture Positive [facility] Automated lymphocyte count a s percentage of total leukocytesOrdered By: Frieda Laurent on 03-03-2025 Lymphocytes/100 WBC Auto (Unsp spec) 2.2 % Low 19-41 [facility] BUN/creatinine ratioOrdered By: Frieda Laurent on 03-03-2025 Urea nitrogen/Creatinine [Mass ratio] 23.4 mg/mg High 10-20 [facility] Basophil percentageOrdered B y: Frieda Laurent on 03-03-2025 Basophils/100 WBC (Bld) 0.4 % 0-1 [facility] Bilirubin Test strip Ql (U)O rdered By: Frieda Laurent on 03-03-2025 Bilirubin Ql (U) Negative Negative [facility] Bilirubin, totalOrdered By: Frieda Laurent on 03-03-2025 Bilirubin [Mass/Vol] 2.53 mg/dL High 0.00-1.30 [facility] Blood base excess determinat ionOrdered By: Frieda Laurent on 03-03-2025 Base excess Calc (BldV) [Moles/Vol] 1 mmol/L -2-2 [facility] Blood bicarbonate measuremen tOrdered By: Frieda Laurent on 03-03-2025 HCO3 (Bld) [Moles/Vol] 25.7 mmol/L 22-26 [facility] Carbon dioxide, total [Moles /volume] in Central venous bloodOrdered By: Frieda Laurent on 03-03-2025 CO2 [Moles/Vol] 22.6 mmol/L 21.0-32.0 [facility] Chloride assayOrdered By: Carlo Laurent on 03-03-2025 Chloride [Moles/Vol] 101 mmol/L 98-108 [facility] Eosinophil percentageOrdered By: Frieda Laurent on 03-03-2025 Eosinophils/100 WBC (Bld) 0.2 % 0-5 [facility] Erythrocyte distribution wid th ratioOrdered By: Frieda Laurent on 03-03-2025 Erythrocyte distribution width (RBC) [Ratio] 14.1 % 11.6-14.6 [facility] Erythrocyte distribution wid th standard deviationOrdered By: Frieda Laurent on 03-03-2025 Erythrocyte distribution width (RBC) [Ratio] 49.9 fl High 35.1-43.9 [facility] Glomerular filtration rate ( GFR) estimation/1.73 sq m using serum, plasma, or whole bOrdered By: Frieda Laurent on 03-03-2025 GFR/1.73 sq M.predicted among non-blacks MDRD (S/P/Bld) [Vol rate/Area] 60 mL/min/{1.73_m2} >60 [facility] Comment on above: mL/min/1.73m2 CKD-EP I Creatinine Equation (2020) Hematocrit Auto (Bld) [Volum e fraction]Ordered By: Frieda Laurent on 03-03-2025 Hematocrit (Bld) [Volume fraction] 32.8 % Low 37-47 [facility] Hemoglobin measurementOrdere d By: Frieda Laurent on 03-03-2025 Hemoglobin (Bld) [Mass/Vol] 10.4 g/dL Low 12.0-15.0 [facility] Immature granulocytes/100 WB C Auto (Bld)Ordered By: Frieda Laurent on 03-03-2025 Immature granulocytes/100 WBC (Bld) 0.500 % 0.0-0.9 [facility] Comment on above: IG% - Immature Granu locytes (promyelocytes, myelocytes and metamyelocytes) > 1% indicates that a LEFT SHIFT is Present. Influenza virus A and B and SARS-CoV-2 (COVID-19) and Respiratory syncytial virus RNAOrdered By: Frieda Laurent on 03-03-2025 SARS-CoV-2 (COVID-19) RNA LUBA+probe Ql (Unsp spec) [facility] Ketones Test strip Ql (U)Ord ered By: Frieda Laurent on 03-03-2025 Ketones Ql (U) Negative Negative [facility] Laboratory - Chemistry and C hemistry - challengeOrdered By: Frieda Laurent on 03-03-2025 AST [Catalytic activity/Vol] 77 U/L High <32 [facility] Lactic acid measurementOrder ed By: Frieda Laurent on 03-03-2025 Lactate [Moles/Vol] 3.4 mmol/L High 0.0-2.0 [facility] Comment on above: Critical Result(s) C alled at: by: JACOB HOLLAND Results read back by same. MCV (mean corpuscular volume ) determinationOrdered By: Frieda Laurent on 03-03-2025 MCV (RBC) [Entitic vol] 96.8 fL 81-99 [facility] Mean corpuscular hemoglobin (MCH) determinationOrdered By: Frieda Laurent on 03-03-2025 MCH (RBC) [Entitic mass] 30.7 pg 27.0-32.0 [facility] Mean corpuscular hemoglobin concentration (MCHC) determinationOrdered By: Frieda Laurent on 03-03-2025 MCHC (RBC) [Mass/Vol] 31.7 g/dL Low 32-36 [facility] Mean platelet volume determi nationOrdered By: Frieda Laurent on 03-03-2025 Platelet mean volume (Bld) [Entitic vol] 10.9 fL 6.2-12.0 [facility] Measurement, pHOrdered By: Jazmyn Laurent on 03-03-2025 pH (Unsp spec) 7.42 [pH] 7.35-7.45 [facility] Microscopic analysis of urin e for red blood cells (RBC)Ordered By: Frieda Laurent on 03-03-2025 Microscopic analysis of urine for red blood cells (RBC) 0 SEEN /hpf 0-5 [facility] Monocyte percentageOrdered B y: Frieda Laurent on 03-03-2025 Monocytes/100 WBC (Bld) 1.3 % 0-10 [facility] Mucus LM Ql (Urine sed)Order ed By: Frieda Laurent on 03-03-2025 Mucus Ql (Urine sed) 0 SEEN /hpf [facility] Neutrophil percentageOrdered By: Frieda Laurent on 03-03-2025 Neutrophils/100 WBC (Bld) 95.4 % High 47-70 [facility] Nitrite Test strip Ql (U)Ord ered By: Frieda Laurent on 03-03-2025 Nitrite Ql (U) Positive High Negative [facility] No Panel InformationOrdered By: Frieda Laurent on 03-03-2025 Bedside Blood Gas PEEP 5 [facility] Blood Gas Respiration Rate 14 [facility] Blood Gas Sample Site L Radial [facility] Blood Gas Specimen Type ART [facility] Blood Gas Tidal Volume 400.0 mL [facility] Blood Gas Vent Mode AC [facility] Oxygen Delivery Device Adult Vent [facility] Nucleated red blood cell per centageOrdered By: Frieda Laurent on 03-03-2025 Nucleated RBC/100 WBC (Bld) [Ratio] 0 % 0-5 [facility] Platelet countOrdered By: Carlo Laurent on 03-03-2025 Platelets (Bld) [#/Vol] 191 10*3/uL 150-450 [facility] Potassium measurement (mass/ volume)Ordered By: Frieda Laurent on 03-03-2025 Potassium (Unsp spec) [Mass/Vol] 3.9 mmol/L 3.3-5.1 [facility] Protein Test strip Ql (U)Ord ered By: Frieda Laurent on 03-03-2025 Protein Ql (U) 100 mg/dl High Negative [facility] RBC Auto (Bld) [#/Vol]Ordere d By: Frieda Laurent on 03-03-2025 RBC (Bld) [#/Vol] 3.39 10*6/uL Low 4.2-5.4 [facility] Serum creatinine measurement (mass/volume)Ordered By: Frieda Laurent on 03-03-2025 Creatinine [Mass/Vol] 0.96 mg/dL 0.70-1.20 [facility] Serum globulin measurementOr dered By: Frieda Laurent on 03-03-2025 Globulin (S) [Mass/Vol] 4.1 g/dL 2.2-4.2 [facility] Serum glucose measurement (m ass/volume)Ordered By: Frieda Laurent on 03-03-2025 Glucose [Mass/Vol] 214 mg/dL High 70-99 [facility] Serum or plasma alanine potts otransferase (ALT) measurementOrdered By: Frieda Laurent on 03-03-2025 ALT [Catalytic activity/Vol] 39 U/L High <35 [facility] Serum or plasma albumin sonu urement (mass/volume)Ordered By: Frieda Laurent on 03-03-2025 Albumin [Mass/Vol] 3.7 g/dL 3.4-4.8 [facility] Serum or plasma albumin/glob ulin mass ratioOrdered By: Frieda Laurent on 03-03-2025 Albumin/Globulin [Mass ratio] 0.9 {ratio} 0.9-2.4 [facility] Serum or plasma alkaline dwain sphatase measurementOrdered By: Frieda Laurent on 03-03-2025 ALP [Catalytic activity/Vol] 378 U/L High 35-104 [facility] Serum or plasma calcium sonu urement (mass/volume)Ordered By: Frieda Laurent on 03-03-2025 Calcium [Mass/Vol] 9.0 mg/dL 7.6-11.0 [facility] Serum or plasma urea nitroge n measurement (mass/volume)Ordered By: Frieda Laurent on 03-03-2025 Urea nitrogen [Mass/Vol] 22 mg/dL High 4-19 [facility] Sodium levelOrdered By: Carl Laurent on 03-03-2025 Sodium [Moles/Vol] 135 mmol/L 133-145 [facility] Squamous epithelial cells de tection in urine sediment by light microscopyOrdered By: Frieda Laurent on 03-03-2025 Epithelial cells.squamous LM Ql (Urine sed) 0 SEEN /hpf 5-10 [facility] Total carbon dioxide measure mentOrdered By: Frieda Laurent on 03-03-2025 CO2 [Moles/Vol] 27 mmol/L [facility] Total proteinOrdered By: Namrata Laurent on 03-03-2025 Protein [Mass/Vol] 7.9 g/dL 5.9-8.4 [facility] Troponin T.cardiac [Mass/vol ume] in Serum or Plasma by High sensitivity methodOrdered By: Frieda Laurent on 03-03-2025 Troponin T.cardiac High sensitivity method [Mass/Vol] 49 ng/L High <14 [facility] Urine clarityOrdered By: Namrata Laurent on 03-03-2025 Clarity (U) Sl. Cloudy Clear [facility] Urine color determinationOrd ered By: Frieda Laurent on 03-03-2025 Color (U) Yellow Yellow [facility] Comment on above: Microscopic field is filled. Other elements may be obscured.Previous reported result: Yellow Edited by: JACQUELYN on 03/03/25:1522 AMENDED REPORT 03/03/25 1522 COLOR previously reported as: Yellow Urine glucose detectionOrder ed By: Frieda Laurent on 03-03-2025 Glucose Ql (U) Normal mg/dl Normal [facility] Urine leukocyte esterase det ection by dipstickOrdered By: Frieda Laurent on 03-03-2025 Leukocyte esterase Test strip Ql (U) 500 /ul High Negative [facility] Urine pHOrdered By: Frieda duran on 03-03-2025 pH (U) 5.0 [pH] 5.0 - 8.0 [facility] Urine sediment bacteria coun t by microscopy (number/high power field)Ordered By: Frieda Laurent on 03-03-2025 Bacteria LM.HPF (Urine sed) [#/Area] 0 /[HPF] None Seen [facility] Urine specific gravity measu rementOrdered By: Frieda Laurent on 03-03-2025 Specific gravity (U) [Rel density] 1.015 1.002-1.030 [facility] Urine urobilinogen measureme ntOrdered By: Frieda Laurent on 03-03-2025 Urobilinogen Ql (U) 1 mg/dl High Normal [facility] White blood cell (WBC) count Ordered By: Frieda Laurent on 03-03-2025 WBC (Bld) [#/Vol] 13.5 10*3/uL High 4.4-11.0 [facility] White blood cell countOrdere d By: Frieda Laurent on 03-03-2025 White blood cell count >100 SEEN /hpf 0-5 [facility] Anion gap in Serum or Plasma Ordered By: Juve Dejesus on 12-14-2024 Anion gap [Moles/Vol] 9 mmol/L 5-15 [facility] BUN/creatinine ratioOrdered By: Juve Dejesus on 12-14-2024 Urea nitrogen/Creatinine [Mass ratio] 34.4 mg/mg High 10- [facility] Basic Metabolic Profile (BMP )on 12-14-2024 BUN/CRE 34.4 RATIO High 10-20 [facility] Comment on above: Performed By: #### L [id number], L506.1001, L500.2500, L501.9310, L500.4100, L100.0500, L501.9520, L503.6150 #### [facility] [address] [place], [address] GAP 9 Normal 5-15 [facility] Comment on above: Performed By: #### L [id number], L506.1001, L500.2500, L501.9310, L500.4100, L100.0500, L501.9520, L503.6150 #### [facility] [address] [place], [address] Potassium [Moles/Vol] 4.0 mmol/L Normal 3.3-5.1 [facility] Comment on above: Performed By: #### L [id number], L506.1001, L500.2500, L501.9310, L500.4100, L100.0500, L501.9520, L503.6150 #### [facility] [address] [place], [address] Basic Metabolic Profile (BMP )Ordered By: Juve Dejesus on 12-14-2024 Calcium [Mass/Vol] 9.3 mg/dL 7.6-11.0 [facility] Comment on above: Performed By: #### L [id number], L506.1001, L500.2500, L501.9310, L500.4100, L100.0500, L501.9520, L503.6150 #### [facility] [address] [place], [address] Chloride [Moles/Vol] 106 mmol/L 98-108 [facility] Comment on above: Performed By: #### L [id number], L506.1001, L500.2500, L501.9310, L500.4100, L100.0500, L501.9520, L503.6150 #### [facility] [address] [place], [address] CO2 [Moles/Vol] 25.7 mmol/L 21.0-32.0 [facility] Comment on above: Performed By: #### L [id number], L506.1001, L500.2500, L501.9310, L500.4100, L100.0500, L501.9520, L503.6150 #### [facility] [address] [place], [address] Creatinine [Mass/Vol] 0.75 mg/dL 0.70-1.20 [facility] Comment on above: Performed By: #### L [id number], L506.1001, L500.2500, L501.9310, L500.4100, L100.0500, L501.9520, L503.6150 #### [facility] [address] [place], [address] GFR/1.73 sq M.predicted among non-blacks MDRD (S/P/Bld) [Vol rate/Area] 81 mL/min/{1.73_m2} >60 [facility] Comment on above: Result Comment: mL/m in/1.73m2 CKD-EPI Creatinine Equation (2020) Performed By: #### L [id number], L506.1001, L500.2500, L501.9310, L500.4100, L100.0500, L501.9520, L503.6150 #### [facility] [address] [place], [address] mL/min/1.73m2 CKD-EP I Creatinine Equation (2020) Glucose [Mass/Vol] 83 mg/dL 70-99 [facility] Comment on above: Performed By: #### L [id number], L506.1001, L500.2500, L501.9310, L500.4100, L100.0500, L501.9520, L503.6150 #### [facility] [address] [place], [address] Sodium [Moles/Vol] 141 mmol/L 133-145 [facility] Comment on above: Performed By: #### L [id number], L506.1001, L500.2500, L501.9310, L500.4100, L100.0500, L501.9520, L503.6150 #### [facility] [address] [place], [address] Urea nitrogen [Mass/Vol] 26 mg/dL High 4-19 [facility] Comment on above: Performed By: #### L [id number], L506.1001, L500.2500, L501.9310, L500.4100, L100.0500, L501.9520, L503.6150 #### [facility] [address] [place], [address] CBC-Complete Blood Cnt No Di ffOrdered By: Juve Dejesus on 12-14-2024 Erythrocyte distribution width (RBC) [Ratio] 13.2 % 11.6-14.6 [facility] Comment on above: Performed By: #### L 501.9985, L506.1001, L500.2500, L501.9310, L500.4100, L100.0500, L501.9520, L503.6150 #### [facility] [address] [place], [address] Hematocrit (Bld) [Volume fraction] 32.9 % Low 37-47 [facility] Comment on above: Performed By: #### L 501.9985, L506.1001, L500.2500, L501.9310, L500.4100, L100.0500, L501.9520, L503.6150 #### [facility] [address] [place], [address] Hemoglobin (Bld) [Mass/Vol] 10.4 g/dL Low 12.0-15.0 [facility] Comment on above: Performed By: #### L 501.9985, L506.1001, L500.2500, L501.9310, L500.4100, L100.0500, L501.9520, L503.6150 #### [facility] [address] [place], [address] MCH (RBC) [Entitic mass] 31.0 pg 27.0-32.0 [facility] Comment on above: Performed By: #### L 501.9985, L506.1001, L500.2500, L501.9310, L500.4100, L100.0500, L501.9520, L503.6150 #### [facility] [address] [place], [address] MCHC (RBC) [Mass/Vol] 31.6 g/dL Low 32-36 [facility] Comment on above: Performed By: #### L [id number], L506.1001, L500.2500, L501.9310, L500.4100, L100.0500, L501.9520, L503.6150 #### [facility] [address] [place], [address] MCV (RBC) [Entitic vol] 98.2 fL 81-99 [facility] Comment on above: Performed By: #### L 501.9985, L506.1001, L500.2500, L501.9310, L500.4100, L100.0500, L501.9520, L503.6150 #### [facility] [address], [address] Platelet mean volume (Bld) [Entitic vol] 11.7 fL 6.2-12.0 [facility] Comment on above: Performed By: #### L 501.9985, L506.1001, L500.2500, L501.9310, L500.4100, L100.0500, L501.9520, L503.6150 #### [facility] [address] [place], [address] Platelets (Bld) [#/Vol] 105 10*3/uL Low 150-450 [facility] Comment on above: Performed By: #### L 501.9985, L506.1001, L500.2500, L501.9310, L500.4100, L100.0500, L501.9520, L503.6150 #### [facility] [address] [place], [place], [phone] (342) RBC (Bld) [#/Vol] 3.35 10*6/uL Low 4.2-5.4 [facility] Comment on above: Performed By: #### L 501.9985, L506.1001, L500.2500, L501.9310, L500.4100, L100.0500, L501.9520, L503.6150 #### [facility] [address] [place], [place], [id number] (587) WBC (Bld) [#/Vol] 3.6 10*3/uL Low 4.4-11.0 [facility] Comment on above: Performed By: #### L 501.9985, L506.1001, L500.2500, L501.9310, L500.4100, L100.0500, L501.9520, L503.6150 #### [facility] [address] [place], [address] CBC-Complete Blood Cnt No Di ffon 12-14-2024 RDW SD 47.3 fl High 35.1-43.9 [facility] Comment on above: Performed By: #### L [id number], L506.1001, L500.2500, L501.9310, L500.4100, L100.0500, L501.9520, L503.6150 #### [facility] [address] [place], [address] Calculated very low density lipoprotein (VLDL) cholesterol measurementOrdered By: Juve Dejesus on 12-14-2024 Calculated very low density lipoprotein (VLDL) cholesterol measurement 14 mg/dL 5-40 [facility] Erythrocyte distribution wid th standard deviationOrdered By: Juve Dejesus on 12-14-2024 Erythrocyte distribution width (RBC) [Ratio] 47.3 fl High 35.1-43.9 [facility] Hemoglobin [id number] By: Baljit Dejesus on 12-14-2024 HbA1c (Bld) [Mass fraction] 8.2 % High <5.7 [facility] Comment on above: Result Comment: Norm al < 5.7 % Prediabetic 5.7 - 6.4 % Diabetic >or= 6.5 % Please note range changes. Performed By: #### L 501.9985, L506.1001, L500.2500, L501.9310, L500.4100, L100.0500, L501.9520, L503.6150 #### [facility] [address] [place], [address] Normal < 5.7 % Predi abetic 5.7 - 6.4 % Diabetic >or= 6.5 % Please note range changes. Ironon 12-14-2024 Iron [Mass/Vol] 54 ug/dL Normal 50-170 [facility] Comment on above: Performed By: #### L 501.9985, L506.1001, L500.2500, L501.9310, L500.4100, L100.0500, L501.9520, L503.6150 #### [facility] [address] [place], [address] Iron measurement (mass/mass) Ordered By: Juve Dejesus on 12-14-2024 Iron (Unsp spec) [Mass/Mass] 54 ug/dL 50-170 [facility] Lipid Profileon 12-14-2024 CHOL:HDL 2.97 Normal [facility] Comment on above: Performed By: #### L 501.9985, L506.1001, L500.2500, L501.9310, L500.4100, L100.0500, L501.9520, L503.6150 #### [facility] [address] [place], [place], [id number] (891) Cholesterol in VLDL [Mass/Vol] 14 mg/dL Normal 5-40 [facility] Comment on above: Performed By: #### L 501.9985, L506.1001, L500.2500, L501.9310, L500.4100, L100.0500, L501.9520, L503.6150 #### [facility] [address] [place], [place], [phone] ([phone]) Lipid ProfileOrdered By: Aleida Dejesus on 12-14-2024 Cholesterol [Mass/Vol] 116 mg/dL <201 [facility] Comment on above: Result Comment: Chol esterol level, Desirable <200 mg/dL Borderline high cholesterol 200-239 mg/dL High cholesterol >=240 mg/dL Recommendations of the NCEP Adult Treatment Panel for the following risk-cutoff thresholds for the [place] population. Performed By: #### L [id number], L506.1001, L500.2500, L501.9310, L500.4100, L100.0500, L501.9520, L503.6150 #### [facility] [address] [place], [address] Cholesterol level, D esirable <200 mg/dLBorderline high cholesterol 200-239 mg/dLHigh cholesterol >=240 mg/dLRecommendations of the NCEP Adult Treatment Panel for the following risk-cutoff thresholds for the [place] population. Cholesterol in HDL [Mass/Vol] 39 mg/dL Low >40 [facility] Comment on above: Result Comment: [place] Cholesterol Education Program (NCEP) guidelines: <40 mg/dL: Low HDL-cholesterol (major risk factor for CHD) >= 60 mg/dL: High HDL-cholesterol (negative risk factor for CHD) HDL-cholesterol is affected by a number of factors, e.g. smoking, exercise, hormones, sex and age. Performed By: #### L [id number], L506.1001, L500.2500, L501.9310, L500.4100, L100.0500, L501.9520, L503.6150 #### [facility] [address] [place], [address] National Cholesterol Education Program (NCEP) guidelines:<40 mg/dL: Low HDL-cholesterol (major risk factor for CHD)>= 60 mg/dL: High HDL-cholesterol (negative risk factor for CHD)HDL-cholesterol is affected by a number of factors, e.g. smoking, exercise, hormones, sex and age. Cholesterol in LDL [Mass/Vol] 63 mg/dL [facility] Comment on above: Result Comment: Bord mzdlhp=518-990 mg/dL Higher Txca=290 mg/dL or greater Performed By: #### L [id number], L506.1001, L500.2500, L501.9310, L500.4100, L100.0500, L501.9520, L503.6150 #### [facility] [address] [place], [address] Oyjkrvxalq=758-644 m g/dL & Higher Nswg=154 mg/dL or greater Triglyceride [Mass/Vol] 72 mg/dL <199 [facility] Comment on above: Result Comment: The drugs N-Acetylcysteine and Metamizole may falsely depress this assay. Normal range: <150 mg/dL Borderline High: 150-199 mg/dL High: 200-499 mg/dL Very High: >500 mg/dL Performed By: #### L [id number], L506.1001, L500.2500, L501.9310, L500.4100, L100.0500, L501.9520, L503.6150 #### [facility] [address] [place], [address] The drugs N-Acetylcy steine and Metamizole may falsely depress this assay. Normal range: <150 mg/dLBorderline High: 150-199 mg/dLHigh: 200-499 mg/dLVery High: >500 mg/dL Potassium measurement (mass/ volume)Ordered By: Juve Dejesus on 12-14-2024 Potassium (Unsp spec) [Mass/Vol] 4.0 mmol/L 3.3-5.1 [facility] Screening total cholesterol/ high density lipoprotein (HDL) cholesterol ratioOrdered By: Juve Dejesus on 12-14-2024 Cholesterol.total/Cholest cristian in HDL [Mass ratio] 2.97 {ratio} [facility] T4 Total, ThyroxinOrdered By : Juve Dejesus on 12-14-2024 T4 [Mass/Vol] 8.3 ug/dL 4.8-13.9 [facility] Comment on above: Performed By: #### L 501.9985, L506.1001, L500.2500, L501.9310, L500.4100, L100.0500, L501.9520, L503.6150 #### [facility] [address] [place], [place], [id number] TSH DL <= 0.005 mIU/L QnOrde red By: Juve Dejesus on 12-14-2024 TSH Qn 3.320 uIU/mL 0.300-4.200 [facility] Thyroid Stim Hormone (TSH)on 12-14-2024 TSH 3.320 uIU/mL Normal 0.300-4.200 [facility] Comment on above: Performed By: #### L 501.9985, L506.1001, L500.2500, L501.9310, L500.4100, L100.0500, L501.9520, L503.6150 #### [facility] [address] [place], [address] Vitamin D,25 Hydroxyon 12-14 Vitamin D 25-OH 13.7 ng/mL Low 30-100 [facility] Comment on above: Result Comment: Sobia min D Status Deficiency: <20 ng/mL (50nmol/L) Insufficiency: 20-30 ng/mL (50-75 nmol/L) Sufficiency: 30-100 ng/mL (75-250 nmol/L) Toxicity: >100 ng/mL (>250 nmol/L) Performed By: #### L 501.9985, L506.1001, L500.2500, L501.9310, L500.4100, L100.0500, L501.9520, L503.6150 #### [facility] [address] [place], [address] Vitamin D,25 Hydroxyon 10-26 Vitamin D 25-OH 16.5 ng/mL Low 30-100 [facility] Comment on above: Result Comment: Sobia min D Status Deficiency: <20 ng/mL (50nmol/L) Insufficiency: 20-30 ng/mL (50-75 nmol/L) Sufficiency: 30-100 ng/mL (75-250 nmol/L) Toxicity: >100 ng/mL (>250 nmol/L) Performed By: #### L 501.9985, L506.1001, L500.2500, L501.9310, L500.4100, L100.0500, L501.9520, L503.6150 #### [facility] [address] [place], [address] Hemoglobin A1con 09-21-2024 HbA1c (Bld) [Mass fraction] 7.1 % Normal <=5.6 [facility] Comment on above: Order Comment: 504-1 Performed By: #### L 501.9985, L506.1001, L500.2500, L501.9310, L500.4100, L100.0500, L501.9520, L503.6150 #### [facility] [address] [place], [address] Anion gap in Serum or Plasma Ordered By: Darcy Elias on 09-20-2024 Anion gap [Moles/Vol] 13 mmol/L 5-15 [facility] BUN/creatinine ratioOrdered By: Darcy Elias on 03-24-2025 Urea nitrogen/Creatinine [Mass ratio] 23.4 mg/mg High 10-20 [facility] Basic Metabolic Profile (BMP )on 09-20-2024 BUN/CRE 23.4 RATIO High 10-20 [facility] Comment on above: Order Comment: 504-1 Performed By: #### L 501.9985, L506.1001, L500.2500, L501.9310, L500.4100, L100.0500, L501.9520, L503.6150 #### [facility] [address] [place], [address] Calcium [Mass/Vol] 9.6 mg/dL Normal 7.6-11.0 [facility] Comment on above: Order Comment: 504-1 Performed By: #### L 501.9985, L506.1001, L500.2500, L501.9310, L500.4100, L100.0500, L501.9520, L503.6150 #### [facility] [address] [place], [address] Chloride [Moles/Vol] 103 mmol/L Normal 98-108 [facility] Comment on above: Order Comment: 504-1 Performed By: #### L 501.9985, L506.1001, L500.2500, L501.9310, L500.4100, L100.0500, L501.9520, L503.6150 #### [facility] [address] [place], [address] CO2 [Moles/Vol] 21.9 mmol/L Normal 21.0-32.0 [facility] Comment on above: Order Comment: 504-1 Performed By: #### L 501.9985, L506.1001, L500.2500, L501.9310, L500.4100, L100.0500, L501.9520, L503.6150 #### [facility] [address] [place], [address] Creatinine [Mass/Vol] 0.78 mg/dL Normal 0.70-1.20 [facility] Comment on above: Order Comment: 504-1 Performed By: #### L 501.9985, L506.1001, L500.2500, L501.9310, L500.4100, L100.0500, L501.9520, L503.6150 #### [facility] [address] [place], [address] GAP 13 Normal 5-15 [facility] Comment on above: Order Comment: 504-1 Performed By: #### L 501.9985, L506.1001, L500.2500, L501.9310, L500.4100, L100.0500, L501.9520, L503.6150 #### [facility] [address] [place], [place], [phone] (439) GFR/1.73 sq M.predicted among non-blacks MDRD (S/P/Bld) [Vol rate/Area] 76 mL/min/{1.73_m2} Normal >60 [facility] Comment on above: Order Comment: 504-1 Result Comment: mL/m in/1.73m2 CKD-EPI Creatinine Equation (2020) Performed By: #### L 501.9985, L506.1001, L500.2500, L501.9310, L500.4100, L100.0500, L501.9520, L503.6150 #### [facility] [address] [place], [place], [id number] Glucose [Mass/Vol] 229 mg/dL High 70-99 [facility] Comment on above: Order Comment: 504-1 Performed By: #### L 501.9985, L506.1001, L500.2500, L501.9310, L500.4100, L100.0500, L501.9520, L503.6150 #### [facility] [address] [place], [place], [phone] Potassium [Moles/Vol] 4.2 mmol/L Normal 3.3-5.1 [facility] Comment on above: Order Comment: 504-1 Performed By: #### L 501.9985, L506.1001, L500.2500, L501.9310, L500.4100, L100.0500, L501.9520, L503.6150 #### [facility] [address] [place], [place], [id number] Sodium [Moles/Vol] 138 mmol/L Normal 133-145 [facility] Comment on above: Order Comment: 504-1 Performed By: #### L 501.9985, L506.1001, L500.2500, L501.9310, L500.4100, L100.0500, L501.9520, L503.6150 #### [facility] [address] [place], [place], [id number] Urea nitrogen [Mass/Vol] 18 mg/dL Normal 4-19 [facility] Comment on above: Order Comment: 504-1 Performed By: #### L 501.9985, L506.1001, L500.2500, L501.9310, L500.4100, L100.0500, L501.9520, L503.6150 #### [facility] [address] [place], [place], [id number] CBC-Complete Blood Cnt No Di ffon 09-20-2024 Erythrocyte distribution width (RBC) [Ratio] 12.9 % Normal 11.6-14.6 [facility] Comment on above: Order Comment: 504-1 Performed By: #### L 501.9985, L506.1001, L500.2500, L501.9310, L500.4100, L100.0500, L501.9520, L503.6150 #### [facility] [address] [place], [place], [phone] Hematocrit (Bld) [Volume fraction] 33.2 % Low 37-47 [facility] Comment on above: Order Comment: 504-1 Performed By: #### L 501.9985, L506.1001, L500.2500, L501.9310, L500.4100, L100.0500, L501.9520, L503.6150 #### [facility] [address] [place], [address] Hemoglobin (Bld) [Mass/Vol] 10.6 g/dL Low 12.0-15.0 [facility] Comment on above: Order Comment: 504-1 Performed By: #### L 501.9985, L506.1001, L500.2500, L501.9310, L500.4100, L100.0500, L501.9520, L503.6150 #### [facility] [address] [place], [address] MCH (RBC) [Entitic mass] 31.2 pg Normal 27.0-32.0 [facility] Comment on above: Order Comment: 504-1 Performed By: #### L 501.9985, L506.1001, L500.2500, L501.9310, L500.4100, L100.0500, L501.9520, L503.6150 #### [facility] [address] [place], [address] MCHC (RBC) [Mass/Vol] 31.9 g/dL Low 32-36 [facility] Comment on above: Order Comment: 504-1 Performed By: #### L 501.9985, L506.1001, L500.2500, L501.9310, L500.4100, L100.0500, L501.9520, L503.6150 #### [facility] [address] [place], [address] MCV (RBC) [Entitic vol] 97.6 fL Normal 81-99 [facility] Comment on above: Order Comment: 504-1 Performed By: #### L 501.9985, L506.1001, L500.2500, L501.9310, L500.4100, L100.0500, L501.9520, L503.6150 #### [facility] [address] [place], [address] Platelet mean volume (Bld) [Entitic vol] 11.3 fL Normal 6.2-12.0 [facility] Comment on above: Order Comment: 504-1 Performed By: #### L 501.9985, L506.1001, L500.2500, L501.9310, L500.4100, L100.0500, L501.9520, L503.6150 #### [facility] [address] [place], [address] Platelets (Bld) [#/Vol] 126 10*3/uL Low 150-450 [facility] Comment on above: Order Comment: 504-1 Performed By: #### L 501.9985, L506.1001, L500.2500, L501.9310, L500.4100, L100.0500, L501.9520, L503.6150 #### [facility] [address] [place], [address] RBC (Bld) [#/Vol] 3.40 10*6/uL Low 4.2-5.4 [facility] Comment on above: Order Comment: 504-1 Performed By: #### L 501.9985, L506.1001, L500.2500, L501.9310, L500.4100, L100.0500, L501.9520, L503.6150 #### [facility] [address] [place], [address] RDW SD 45.9 fl High 35.1-43.9 [facility] Comment on above: Order Comment: 504-1 Performed By: #### L 501.9985, L506.1001, L500.2500, L501.9310, L500.4100, L100.0500, L501.9520, L503.6150 #### [facility] [address] [place], [address] WBC (Bld) [#/Vol] 4.4 10*3/uL Normal 4.4-11.0 [facility] Comment on above: Order Comment: 504-1 Performed By: #### L 501.9985, L506.1001, L500.2500, L501.9310, L500.4100, L100.0500, L501.9520, L503.6150 #### [facility] [address] [place], [place], [phone] Calculated very low density lipoprotein (VLDL) cholesterol measurementOrdered By: Darcy Elias on 09-20-2024 VLDL Cholesterol 22 mg/dL 5-40 [facility] Carbon dioxide, total [Moles /volume] in Central venous bloodOrdered By: Darcy Elias on 09-20-2024 CO2 [Moles/Vol] 21.9 mmol/L 21.0-32.0 [facility] Chloride assayOrdered By: Barney Elias on 09-20-2024 Chloride [Moles/Vol] 103 mmol/L 98-108 [facility] Erythrocyte distribution wid th (RBC) [Ratio]Ordered By: Darcy Elias on 09-20-2024 Erythrocyte distribution width (RBC) [Entitic vol] 45.9 fL High 35.1-43.9 [facility] Erythrocyte distribution wid th ratioOrdered By: Darcy Elias on 09-20-2024 Erythrocyte distribution width (RBC) [Ratio] 12.9 % 11.6-14.6 [facility] GFR/1.73 sq M.predicted nadir g non-blacks MDRD (S/P/Bld) [Vol rate/Area]Ordered By: Darcy Elias on 09-20-2024 Estimated GFR (MDRD) Non-Af Amer 76 >60 [facility] Comment on above: mL/min/1.73m2 CKD-EP I Creatinine Equation (2020) Hematocrit Auto (Bld) [Volum e fraction]Ordered By: Darcy Elias on 09-20-2024 Hematocrit (Bld) [Volume fraction] 33.2 % Low 37-47 [facility] Hemoglobin A1c percentageOrd ered By: Darcy Elias on 09-20-2024 HbA1c (Bld) [Mass fraction] 7.1 % >5.7 [facility] Hemoglobin measurementOrdere d By: Darcy Elias on 09-20-2024 Hemoglobin (Bld) [Mass/Vol] 10.6 g/dL Low 12.0-15.0 [facility] LDL calc ser/plasOrdered By: Darcy Elias on 09-20-2024 LDL Cholesterol, Calculated 56 mg/dL [facility] Comment on above: Wtuvojsaua=398-799 m g/dL & Higher Nmit=017 mg/dL or greater Lipid Profileon 09-20-2024 CHOL:HDL 2.99 Normal [facility] Comment on above: Order Comment: 504-1 Performed By: #### L 501.9985, L506.1001, L500.2500, L501.9310, L500.4100, L100.0500, L501.9520, L503.6150 #### [facility] [address] [place], [place], [phone] (045) Cholesterol [Mass/Vol] 118 mg/dL Normal <=200 [facility] Comment on above: Order Comment: 504-1 Result Comment: Chol esterol level, Desirable <200 mg/dL Borderline high cholesterol 200-239 mg/dL High cholesterol >=240 mg/dL Recommendations of the NCEP Adult Treatment Panel for the following risk-cutoff thresholds for the [place] population. Performed By: #### L 501.9985, L506.1001, L500.2500, L501.9310, L500.4100, L100.0500, L501.9520, L503.6150 #### [facility] [address] [place], [address] Cholesterol in HDL [Mass/Vol] 39 mg/dL Low [facility] Comment on above: Order Comment: 504-1 Result Comment: Zhane onal Cholesterol Education Program (NCEP) guidelines: <40 mg/dL: Low HDL-cholesterol (major risk factor for CHD) >= 60 mg/dL: High HDL-cholesterol (negative risk factor for CHD) HDL-cholesterol is affected by a number of factors, e.g. smoking, exercise, hormones, sex and age. Performed By: #### L 501.9985, L506.1001, L500.2500, L501.9310, L500.4100, L100.0500, L501.9520, L503.6150 #### [facility] [address] [place], [address] Cholesterol in LDL [Mass/Vol] 56 mg/dL Normal [facility] Comment on above: Order Comment: 504 Result Comment: Bord vkwvmk=846-903 mg/dL Higher Waks=792 mg/dL or greater Performed By: #### L 501.9985, L506.1001, L500.2500, L501.9310, L500.4100, L100.0500, L501.9520, L503.6150 #### [facility] [address] [place], [address] Cholesterol in VLDL [Mass/Vol] 22 mg/dL Normal 5-40 [facility] Comment on above: Order Comment: 5041 Performed By: #### L 501.9985, L506.1001, L500.2500, L501.9310, L500.4100, L100.0500, L501.9520, L503.6150 #### [facility] [address] [place], [address] Triglyceride [Mass/Vol] 111 mg/dL Normal [facility] Comment on above: Order Comment: 5041 Result Comment: The drugs N-Acetylcysteine and Metamizole may falsely depress this assay. Normal range: <150 mg/dL Borderline High: 150-199 mg/dL High: 200-499 mg/dL Very High: >500 mg/dL Performed By: #### L 501.9985, L506.1001, L500.2500, L501.9310, L500.4100, L100.0500, L501.9520, L503.6150 #### [facility] [address] [place], [place], [id number] MCV (mean corpuscular volume ) determinationOrdered By: Darcy Elias on 09-20-2024 MCV (RBC) [Entitic vol] 97.6 fL 81-99 [facility] Mean corpuscular hemoglobin (MCH) determinationOrdered By: Darcy Elias on 09-20-2024 MCH (RBC) [Entitic mass] 31.2 pg 27.0-32.0 [facility] Mean corpuscular hemoglobin concentration (MCHC) determinationOrdered By: Darcy Elias on 09-20-2024 MCHC (RBC) [Mass/Vol] 31.9 g/dL Low 32-36 [facility] Mean platelet volume determi nationOrdered By: Darcy Elias on 09-20-2024 Platelet mean volume (Bld) [Entitic vol] 11.3 fL 6.2-12.0 [facility] Platelet countOrdered By: Barney Elias on 09-20-2024 Platelets (Bld) [#/Vol] 126 10*3/uL Low 150-450 [facility] Potassium (Unsp spec) [Mass/ Vol]Ordered By: Darcy Elias on 09-20-2024 Potassium [Moles/Vol] 4.2 mmol/L 3.3-5.1 [facility] RBC Auto (Bld) [#/Vol]Ordere d By: Darcy Elias on 09-20-2024 RBC (Bld) [#/Vol] 3.40 10*6/uL Low 4.2-5.4 [facility] Screening total cholesterol/ high density lipoprotein (HDL) cholesterol ratioOrdered By: Darcy Elias on 09-20-2024 Cholesterol.total/Cholest cristian in HDL [Mass ratio] 2.99 {ratio} [facility] Serum creatinine measurement (mass/volume)Ordered By: Darcy Elias on 03-24-2025 Creatinine [Mass/Vol] 0.78 mg/dL 0.70-1.20 [facility] Serum glucose measurement (m ass/volume)Ordered By: Darcy Elias on 09-20-2024 Glucose [Mass/Vol] 229 mg/dL High 70-99 [facility] Serum or plasma calcium sonu urement (mass/volume)Ordered By: Darcy Elias on 09-20-2024 Calcium [Mass/Vol] 9.6 mg/dL 7.6-11.0 [facility] Serum or plasma cholesterol in HDL measurement (mass/volume)Ordered By: Darcy Elias on 09-20-2024 Cholesterol in HDL [Mass/Vol] 39 mg/dL Low >40 [facility] Comment on above: National Cholesterol Education Program (NCEP) guidelines:<40 mg/dL: Low HDL-cholesterol (major risk factor for CHD)>= 60 mg/dL: High HDL-cholesterol (negative risk factor for CHD)HDL-cholesterol is affected by a number of factors, e.g. smoking, exercise, hormones, sex and age. Serum or plasma cholesterol measurement (mass/volume)Ordered By: Darcy Elias on 09-20-2024 Cholesterol [Mass/Vol] 118 mg/dL <201 [facility] Comment on above: Cholesterol level, D esirable <200 mg/dLBorderline high cholesterol 200-239 mg/dLHigh cholesterol >=240 mg/dLRecommendations of the NCEP Adult Treatment Panel for the following risk-cutoff thresholds for the [place] population. Serum or plasma urea nitroge n measurement (mass/volume)Ordered By: Darcy Elias on 09-20-2024 Urea nitrogen [Mass/Vol] 18 mg/dL 4-19 [facility] Sodium levelOrdered By: Bibi Elias on 09-20-2024 Sodium [Moles/Vol] 138 mmol/L 133-145 [facility] T4 Total, Thyroxinon 025 T4 [Mass/Vol] 8.9 ug/dL Normal 4.8-13.9 [facility] Comment on above: Order Comment: 504-1 Performed By: #### L 501.9907, L506.1001, L500.2500, L501.9310, L500.4100, L100.0500, L501.9520, L503.6150 #### [facility] [address] [place], [address] TSH DL <= 0.005 mIU/L QnOrde red By: Darcy Elias on 09-20-2024 Thyroid Stimulating Hormone (TSH) 3.890 uIU/mL 0.300-4.200 [facility] Thyroid Stim Hormone (TSH)on 09-20-2024 TSH 3.890 uIU/mL Normal 0.300-4.200 [facility] Comment on above: Order Comment: 504-1 Performed By: #### L 501.9985, L506.1001, L500.2500, L501.9310, L500.4100, L100.0500, L501.9520, L503.6150 #### [facility] [address] [place], [address] ThyroxineOrdered By: Darcy Elias on 09-20-2024 T4 [Mass/Vol] 8.9 ug/dL 4.8-13.9 [facility] Triglycerides measurementOrd ered By: Darcy Elias on 09-20-2024 Triglyceride [Mass/Vol] 111 mg/dL <199 [facility] Comment on above: The drugs N-Acetylcy steine and Metamizole may falsely depress this assay. Normal range: <150 mg/dLBorderline High: 150-199 mg/dLHigh: 200-499 mg/dLVery High: >500 mg/dL White blood cell (WBC) count Ordered By: Darcy Elias on 09-20-2024 WBC (Bld) [#/Vol] 4.4 10*3/uL 4.4-11.0 [facility] Basic Metabolic Profile (BMP )on 06-21-2024 BUN/CRE 37.6 RATIO High 10-20 [facility] Comment on above: Performed By: #### L 501.9985, L506.1001, L500.2500, L501.9310, L500.4100, L100.0500, L501.9520, L503.6150 #### [facility] [address] [place], [address] CA,Total 9.6 mg/dL Normal 8.5-10.1 [facility] Comment on above: Performed By: #### L 501.9985, L506.1001, L500.2500, L501.9310, L500.4100, L100.0500, L501.9520, L503.6150 #### [facility] [address] [place], [address] Chloride [Moles/Vol] 107 mmol/L Normal 98-107 [facility] Comment on above: Performed By: #### L 501.9985, L506.1001, L500.2500, L501.9310, L500.4100, L100.0500, L501.9520, L503.6150 #### [facility] [address] [place], [address] CO2 [Moles/Vol] 28.0 mmol/L Normal 21.0-32.0 [facility] Comment on above: Performed By: #### L 501.9985, L506.1001, L500.2500, L501.9310, L500.4100, L100.0500, L501.9520, L503.6150 #### [facility] [address] [place], [address] Creatinine [Mass/Vol] 0.77 mg/dL Normal 0.55-1.02 [facility] Comment on above: Result Comment: The validity of the calculated GFR GFRAA in patients over 70 years has not been determined. Clinical correlation is essential. Performed By: #### L 501.9985, L506.1001, L500.2500, L501.9310, L500.4100, L100.0500, L501.9520, L503.6150 #### [facility] [address] [place], [address] EST GFR - AA 92 mL/min Normal >60 [facility] Comment on above: Result Comment: Afri can [place] GFR Calc Performed By: #### L 501.9985, L506.1001, L500.2500, L501.9310, L500.4100, L100.0500, L501.9520, L503.6150 #### [facility] [address] [place], [address] GAP 5 Normal 5-15 [facility] Comment on above: Performed By: #### L 501.9985, L506.1001, L500.2500, L501.9310, L500.4100, L100.0500, L501.9520, L503.6150 #### [facility] [address] [place], [address] (765) GFR/1.73 sq M.predicted among non-blacks MDRD (S/P/Bld) [Vol rate/Area] 76 mL/min/{1.73_m2} Normal >60 [facility] Comment on above: Result Comment: Non- GFR Calc Performed By: #### L 501.9985, L506.1001, L500.2500, L501.9310, L500.4100, L100.0500, L501.9520, L503.6150 #### [facility] [address] [place], [address] Glucose [Mass/Vol] 100 mg/dL Normal 74-106 [facility] Comment on above: Result Comment: Fast ing Glucose result from 100 to 125 mg/dL suggests IMPAIRED HOMEOSTASIS per A.D.A. criteria. Performed By: #### L 501.9985, L506.1001, L500.2500, L501.9310, L500.4100, L100.0500, L501.9520, L503.6150 #### [facility] [address] [place], [address] Potassium [Moles/Vol] 3.9 mmol/L Normal 3.5-5.1 [facility] Comment on above: Performed By: #### L 501.9985, L506.1001, L500.2500, L501.9310, L500.4100, L100.0500, L501.9520, L503.6150 #### [facility] [address] [place], [address] Sodium [Moles/Vol] 140 mmol/L Normal 136-145 [facility] Comment on above: Performed By: #### L 501.9985, L506.1001, L500.2500, L501.9310, L500.4100, L100.0500, L501.9520, L503.6150 #### [facility] [address] [place], [address] Urea nitrogen [Mass/Vol] 29 mg/dL High - [facility] Comment on above: Performed By: #### L 501.9985, L506.1001, L500.2500, L501.9310, L500.4100, L100.0500, L501.9520, L503.6150 #### [facility] [address] [place], [address] Blood urea nitrogen (BUN)/cr eatinine ratioOrdered By: Darcy Elias on 06-21-2024 Urea nitrogen/Creatinine [Mass ratio] 37.6 mg/mg High 04-18 [facility] CBC-Complete Blood Cnt No Di ffon 06-21-2024 Erythrocyte distribution width (RBC) [Ratio] 13.3 % Normal 11.6-14.6 [facility] Comment on above: Performed By: #### L 501.9985, L506.1001, L500.2500, L501.9310, L500.4100, L100.0500, L501.9520, L503.6150 #### [facility] [address] [place], [address] Hematocrit (Bld) [Volume fraction] 33.1 % Low 37-47 [facility] Comment on above: Performed By: #### L 501.9985, L506.1001, L500.2500, L501.9310, L500.4100, L100.0500, L501.9520, L503.6150 #### [facility] [address] [place], [address] Hemoglobin (Bld) [Mass/Vol] 10.5 g/dL Low 12.0-15.0 [facility] Comment on above: Performed By: #### L 501.9985, L506.1001, L500.2500, L501.9310, L500.4100, L100.0500, L501.9520, L503.6150 #### [facility] [address] [place], [address] MCH (RBC) [Entitic mass] 31.8 pg Normal 27.0-32.0 [facility] Comment on above: Performed By: #### L 501.9985, L506.1001, L500.2500, L501.9310, L500.4100, L100.0500, L501.9520, L503.6150 #### [facility] [address] [place], [address] MCHC (RBC) [Mass/Vol] 31.7 g/dL Low 32-36 [facility] Comment on above: Performed By: #### L 501.9985, L506.1001, L500.2500, L501.9310, L500.4100, L100.0500, L501.9520, L503.6150 #### [facility] [address] [place], [address] MCV (RBC) [Entitic vol] 100.3 fL High 81-99 [facility] Comment on above: Performed By: #### L 501.9985, L506.1001, L500.2500, L501.9310, L500.4100, L100.0500, L501.9520, L503.6150 #### [facility] [address] [place], [address] Platelet mean volume (Bld) [Entitic vol] 11.5 fL Normal 6.2-12.0 [facility] Comment on above: Performed By: #### L 501.9985, L506.1001, L500.2500, L501.9310, L500.4100, L100.0500, L501.9520, L503.6150 #### [facility] [address] [place], [address] Platelets (Bld) [#/Vol] 125 10*3/uL Low 150-450 [facility] Comment on above: Performed By: #### L 501.9985, L506.1001, L500.2500, L501.9310, L500.4100, L100.0500, L501.9520, L503.6150 #### [facility] [address] [place], [place], [id number] (799 RBC (Bld) [#/Vol] 3.30 10*6/uL Low 4.2-5.4 [facility] Comment on above: Performed By: #### L 501.9985, L506.1001, L500.2500, L501.9310, L500.4100, L100.0500, L501.9520, L503.6150 #### [facility] [address] [place], [address] RDW SD 49.0 fl High 35.1-43.9 [facility] Comment on above: Performed By: #### L 501.9985, L506.1001, L500.2500, L501.9310, L500.4100, L100.0500, L501.9520, L503.6150 #### [facility] [address] [place], [place], [address] WBC (Bld) [#/Vol] 3.9 10*3/uL Low 4.4-11.0 [facility] Comment on above: Performed By: #### L 501.9985, L506.1001, L500.2500, L501.9310, L500.4100, L100.0500, L501.9520, L503.6150 #### [facility] [address] [place], [address] Carbon dioxide measurementOr dered By: Darcy Elias on 06-21-2024 CO2 [Moles/Vol] 28.0 mmol/L 21.0-32.0 [facility] Chloride measurementOrdered By: Darcy Elias on 06-21-2024 Chloride [Moles/Vol] 107 mmol/L 98-107 [facility] Erythrocyte distribution wid th (RBC) [Ratio]Ordered By: Darcy Elias on 06-21-2024 Erythrocyte distribution width (RBC) [Entitic vol] 49.0 fL High 35.1-43.9 [facility] Erythrocyte distribution wid th ratioOrdered By: Darcy Elias on 06-21-2024 Erythrocyte distribution width (RBC) [Ratio] 13.3 % 11.6-14.6 [facility] Estimated glomerular filtrat ion rate (GFR) AmericanOrdered By: Darcy Elias on 06-21-2024 Estimated GFR (MDRD) Amer 92 mL/min >60 [facility] Comment on above: GFR Calc Glomerular filtration rate ( GFR) estimationOrdered By: Darcy Elias on 06-21-2024 Estimated GFR (MDRD) Non-Af Amer 76 mL/min >60 [facility] Comment on above: Non- GFR Calc Glucose measurementOrdered B y: Darcy Elias on 06-21-2024 Glucose [Mass/Vol] 100 mg/dL 74-106 [facility] Comment on above: Fasting Glucose resu lt from 100 to 125 mg/dL suggests IMPAIRED HOMEOSTASIS per A.D.A. criteria. Hematocrit Auto (Bld) [Volum e fraction]Ordered By: Darcy Elias on 06-21-2024 Hematocrit (Bld) [Volume fraction] 33.1 % Low 37-47 [facility] Hemoglobin A1con 06-21-2024 HbA1c (Bld) [Mass fraction] 7.4 % High 3.8-5.6 [facility] Comment on above: Result Comment: Norm al < 5.7 % Prediabetic 5.7 - 6.4 % Diabetic >or= 6.5 % Please note range changes. Performed By: #### L 501.9985, L506.1001, L500.2500, L501.9310, L500.4100, L100.0500, L501.9520, L503.6150 #### [facility] [address] [place], [address] Hemoglobin A1c percentageOrd ered By: Darcy Elias on 06-21-2024 HbA1c (Bld) [Mass fraction] 7.4 % High 3.8-5.6 [facility] Comment on above: Normal < 5.7 % Predi abetic 5.7 - 6.4 % Diabetic >or= 6.5 % Please note range changes. Hemoglobin measurementOrdere d By: Darcy Elias on 06-21-2024 Hemoglobin (Bld) [Mass/Vol] 10.5 g/dL Low 12.0-15.0 [facility] High density lipoprotein (HD L) measurementOrdered By: Darcy Elias on 06-21-2024 Cholesterol in HDL [Mass/Vol] 43 mg/dL >40 [facility] Comment on above: The drugs N-Acetylcy steine and Metamizole may falsely depress this assay. Reference Range HDL <40 mg/dL Low HDL Cholesterol HDL >or= 60 mg/dL High HDL Cholesterol Lipid Profileon 06-21-2024 Cholesterol [Mass/Vol] 118 mg/dL Normal 200 [facility] Comment on above: Result Comment: <200 mg/dL Desirable 200-240 mg/dL Borderline >240 mg/dL High Risk Performed By: #### L 501.9985, L506.1001, L500.2500, L501.9310, L500.4100, L100.0500, L501.9520, L503.6150 #### [facility] [address] [place], [address] Cholesterol in HDL [Mass/Vol] 43 mg/dL Normal [facility] Comment on above: Result Comment: The drugs N-Acetylcysteine and Metamizole may falsely depress this assay. Reference Range HDL <40 mg/dL Low HDL Cholesterol HDL >or= 60 mg/dL High HDL Cholesterol Performed By: #### L 501.9985, L506.1001, L500.2500, L501.9310, L500.4100, L100.0500, L501.9520, L503.6150 #### [facility] [address] [place], [address] Cholesterol in LDL [Mass/Vol] 52 mg/dL Normal 0-130 [facility] Comment on above: Performed By: #### L 501.9985, L506.1001, L500.2500, L501.9310, L500.4100, L100.0500, L501.9520, L503.6150 #### [facility] [address] [place], [address] Cholesterol in VLDL [Mass/Vol] 23 mg/dL Normal 5-40 [facility] Comment on above: Performed By: #### L 501.9985, L506.1001, L500.2500, L501.9310, L500.4100, L100.0500, L501.9520, L503.6150 #### [facility] [address] [place], [address] Triglyceride [Mass/Vol] 114 mg/dL Normal [facility] Comment on above: Result Comment: The drugs N-Acetylcysteine and Metamizole may falsely depress this assay. Serum Triglycerides Reference Interval Normal <150 mg/dL Borderline high 150 - 199 mg/dL High 200 - 499 mg/dL Very High > or = 500 mg/dL Performed By: #### L 501.9985, L506.1001, L500.2500, L501.9310, L500.4100, L100.0500, L501.9520, L503.6150 #### [facility] [address] [place], [address] Low density lipoprotein (LDL ) cholesterol measurementOrdered By: Darcy Elias on 06-21-2024 Cholesterol in LDL [Mass/Vol] 52 mg/dL 0-130 [facility] MCV (mean corpuscular volume ) determinationOrdered By: Darcy Elias on 06-21-2024 MCV (RBC) [Entitic vol] 100.3 fL High 81-99 [facility] Mean corpuscular hemoglobin (MCH) determinationOrdered By: Darcy Elias on 06-21-2024 MCH (RBC) [Entitic mass] 31.8 pg 27.0-32.0 [facility] Mean corpuscular hemoglobin concentration (MCHC) determinationOrdered By: Darcy Elias on 06-21-2024 MCHC (RBC) [Mass/Vol] 31.7 g/dL Low 32-36 [facility] Mean platelet volume determi nationOrdered By: Darcy Elias on 06-21-2024 Platelet mean volume (Bld) [Entitic vol] 11.5 fL 6.2-12.0 [facility] Platelet countOrdered By: Barney Elias on 06-21-2024 Platelets (Bld) [#/Vol] 125 10*3/uL Low 150-450 [facility] Potassium measurementOrdered By: Darcy Elias on 06-21-2024 Potassium [Moles/Vol] 3.9 mmol/L 3.5-5.1 [facility] RBC Auto (Bld) [#/Vol]Ordere d By: Darcy Elias on 06-21-2024 RBC (Bld) [#/Vol] 3.30 10*6/uL Low 4.2-5.4 [facility] Serum anion gap measurementO rdered By: Darcy Elias on 06-21-2024 Anion gap [Moles/Vol] 5 mmol/L 5-15 [facility] Serum or plasma calcium sonu urement (mass/volume)Ordered By: Darcy Elias on 06-21-2024 Calcium [Mass/Vol] 9.6 mg/dL 8.5-10.1 [facility] Serum or plasma cholesterol measurement (mass/volume)Ordered By: Darcy Elias on 06-21-2024 Cholesterol [Mass/Vol] 118 mg/dL <200 [facility] Comment on above: <200 mg/dL Desirable 200-240 mg/dL Borderline >240 mg/dL High Risk Serum or plasma creatinine m easurement (mass/volume)Ordered By: Darcy Elias on 06-21-2024 Creatinine [Mass/Vol] 0.77 mg/dL 0.55-1.02 [facility] Comment on above: The validity of the calculated GFR & GFRAA in patients over 70 years has not been determined. Clinical correlation is essential. Serum or plasma thyroxine (T 4) measurement (mass/volume)Ordered By: Darcy Elias on 06-21-2024 T4 [Mass/Vol] 11.6 ug/dL 4.8-13.9 [facility] Serum or plasma urea nitroge n measurement (mass/volume)Ordered By: Darcy Elias on 06-21-2024 Urea nitrogen [Mass/Vol] 29 mg/dL High 7-18 [facility] Sodium levelOrdered By: Bibi Elias on 06-21-2024 Sodium [Moles/Vol] 140 mmol/L 136-145 [facility] T4 Total, Thyroxinon 024 T4 [Mass/Vol] 11.6 ug/dL Normal 4.8-13.9 [facility] Comment on above: Performed By: #### L 501.9985, L506.1001, L500.2500, L501.9310, L500.4100, L100.0500, L501.9520, L503.6150 #### [facility] [address] [place], [address] TSH QnOrdered By: Darcy carrizales on 06-21-2024 Thyroid Stimulating Hormone (TSH) 2.350 uIU/mL 0.358-3.740 [facility] Thyroid Stim Hormone (TSH)on 06-21-2024 TSH 2.350 uIU/mL Normal 0.358-3.740 [facility] Comment on above: Performed By: #### L 501.9985, L506.1001, L500.2500, L501.9310, L500.4100, L100.0500, L501.9520, L503.6150 #### [facility] [address] [place], [address] Triglycerides measurementOrd ered By: Darcy Elias on 06-21-2024 Triglyceride [Mass/Vol] 114 mg/dL <199 [facility] Comment on above: The drugs N-Acetylcy steine and Metamizole may falsely depress this assay.Serum Triglycerides Reference Interval Normal <150 mg/dL Borderline high 150 - 199 mg/dL High 200 - 499 mg/dL Very High > or = 500 mg/dL Very low density lipoprotein (VLDL) cholesterol measurementOrdered By: Darcy Elias on 06-21-2024 VLDL Cholesterol 23 mg/dL 5-40 [facility] White blood cell (WBC) count Ordered By: Darcy Elias on 06-21-2024 WBC (Bld) [#/Vol] 3.9 10*3/uL Low 4.4-11.0 [facility] Hemoglobin A1con 03-22-2024 HbA1c (Bld) [Mass fraction] 6.4 % High 3.8-5.6 [facility] Comment on above: Order Comment: 314.1 Result Comment: Norm al < 5.7 % Prediabetic 5.7 - 6.4 % Diabetic >or= 6.5 % Please note range changes. Performed By: #### L 501.9985, L506.1001, L500.2500, L501.9310, L500.4100, L100.0500, L501.9520, L503.6150 #### [facility] [address] [place], [place], [address] T4 Total, Thyroxinon 024 T4 [Mass/Vol] 9.3 ug/dL Normal 4.8-13.9 [facility] Comment on above: Order Comment: 314.1 Performed By: #### L 501.9985, L506.1001, L500.2500, L501.9310, L500.4100, L100.0500, L501.9520, L503.6150 #### [facility] [address] [place], [address] Thyroid Stim Hormone (TSH)on 03-22-2024 TSH 3.280 uIU/mL Normal 0.358-3.740 [facility] Comment on above: Order Comment: 314.1 Performed By: #### L 501.9985, L506.1001, L500.2500, L501.9310, L500.4100, L100.0500, L501.9520, L503.6150 #### [facility] [address] [place], [place], [id number] Basic Metabolic Profile (BMP )on 02-05-2024 BUN/CRE 49.4 RATIO High 10-20 [facility] Comment on above: Order Comment: 205.1 Performed By: #### L 501.9985, L506.1001, L500.2500, L501.9310, L500.4100, L100.0500, L501.9520, L503.6150 #### [facility] [address] [place], [place], [id number] CA,Total 9.1 mg/dL Normal 8.5-10.1 [facility] Comment on above: Order Comment: 205.1 Performed By: #### L 501.9985, L506.1001, L500.2500, L501.9310, L500.4100, L100.0500, L501.9520, L503.6150 #### [facility] [address] [place], [place], [address] Chloride [Moles/Vol] 110 mmol/L High 98-107 [facility] Comment on above: Order Comment: 205.1 Performed By: #### L 501.9985, L506.1001, L500.2500, L501.9310, L500.4100, L100.0500, L501.9520, L503.6150 #### [facility] [address] [place], [address] (927) CO2 [Moles/Vol] 29.0 mmol/L Normal 21.0-32.0 [facility] Comment on above: Order Comment: 205.1 Performed By: #### L 501.9985, L506.1001, L500.2500, L501.9310, L500.4100, L100.0500, L501.9520, L503.6150 #### [facility] [address] [place], [address] Creatinine [Mass/Vol] 0.59 mg/dL Normal 0.55-1.02 [facility] Comment on above: Order Comment: 205.1 Result Comment: The validity of the calculated GFR GFRAA in patients over 70 years has not been determined. Clinical correlation is essential. Performed By: #### L 501.9985, L506.1001, L500.2500, L501.9310, L500.4100, L100.0500, L501.9520, L503.6150 #### [facility] [address] [place], [place], [id number] EST GFR - AA 127 mL/min Normal >60 [facility] Comment on above: Order Comment: 205.1 Result Comment: Afri can [place] GFR Calc Performed By: #### L 501.9985, L506.1001, L500.2500, L501.9310, L500.4100, L100.0500, L501.9520, L503.6150 #### [facility] [address] [place], [address] GAP 5 Normal 5-15 [facility] Comment on above: Order Comment: . Performed By: #### L 501.9985, L506.1001, L500.2500, L501.9310, L500.4100, L100.0500, L501.9520, L503.6150 #### [facility] [address] [place], [address] GFR/1.73 sq M.predicted among non-blacks MDRD (S/P/Bld) [Vol rate/Area] 105 mL/min/{1.73_m2} Normal >60 [facility] Comment on above: Order Comment: . Result Comment: Non- GFR Calc Performed By: #### L 501.9985, L506.1001, L500.2500, L501.9310, L500.4100, L100.0500, L501.9520, L503.6150 #### [facility] [address] [place], [address] Glucose [Mass/Vol] 54 mg/dL Low 74-106 [facility] Comment on above: Order Comment: . Performed By: #### L 501.9985, L506.1001, L500.2500, L501.9310, L500.4100, L100.0500, L501.9520, L503.6150 #### [facility] [address] [place], [address] Potassium [Moles/Vol] 3.7 mmol/L Normal 3.5-5.1 [facility] Comment on above: Order Comment: Performed By: #### L 501.9985, L506.1001, L500.2500, L501.9310, L500.4100, L100.0500, L501.9520, L503.6150 #### [facility] [address] [place], [address] Sodium [Moles/Vol] 144 mmol/L Normal 136-145 [facility] Comment on above: Order Comment: . Performed By: #### L 501.9985, L506.1001, L500.2500, L501.9310, L500.4100, L100.0500, L501.9520, L503.6150 #### [facility] [address] [place], [address] Urea nitrogen [Mass/Vol] 29 mg/dL High 7-18 [facility] Comment on above: Order Comment: . Performed By: #### L 501.9985, L506.1001, L500.2500, L501.9310, L500.4100, L100.0500, L501.9520, L503.6150 #### [facility] [address] [place], [address] CBC-Complete Blood Cnt No Di ffon 02-05-2024 Erythrocyte distribution width (RBC) [Ratio] 15.3 % High 11.6-14.6 [facility] Comment on above: Order Comment: . Performed By: #### L 501.9985, L506.1001, L500.2500, L501.9310, L500.4100, L100.0500, L501.9520, L503.6150 #### [facility] [address] [place], [address] Hematocrit (Bld) [Volume fraction] 31.2 % Low 37-47 [facility] Comment on above: Order Comment: . Performed By: #### L 501.9985, L506.1001, L500.2500, L501.9310, L500.4100, L100.0500, L501.9520, L503.6150 #### [facility] [address] [place], [address] Hemoglobin (Bld) [Mass/Vol] 9.5 g/dL Low 12.0-15.0 [facility] Comment on above: Order Comment: . Performed By: #### L 501.9985, L506.1001, L500.2500, L501.9310, L500.4100, L100.0500, L501.9520, L503.6150 #### [facility] [address] [place], [address] MCH (RBC) [Entitic mass] 30.8 pg Normal 27.0-32.0 [facility] Comment on above: Order Comment: . Performed By: #### L 501.9985, L506.1001, L500.2500, L501.9310, L500.4100, L100.0500, L501.9520, L503.6150 #### [facility] [address] [place], [address] MCHC (RBC) [Mass/Vol] 30.4 g/dL Low 32-36 [facility] Comment on above: Order Comment: . Performed By: #### L 501.9985, L506.1001, L500.2500, L501.9310, L500.4100, L100.0500, L501.9520, L503.6150 #### [facility] [address] [place], [address] MCV (RBC) [Entitic vol] 101.3 fL High 81-99 [facility] Comment on above: Order Comment: . Performed By: #### L 501.9985, L506.1001, L500.2500, L501.9310, L500.4100, L100.0500, L501.9520, L503.6150 #### [facility] [address] [place], [address] Platelet mean volume (Bld) [Entitic vol] 11.6 fL Normal 6.2-12.0 [facility] Comment on above: Order Comment: . Performed By: #### L 501.9985, L506.1001, L500.2500, L501.9310, L500.4100, L100.0500, L501.9520, L503.6150 #### [facility] [address] [place], [address] Platelets (Bld) [#/Vol] 117 10*3/uL Low 150-450 [facility] Comment on above: Order Comment: . Performed By: #### L 501.9985, L506.1001, L500.2500, L501.9310, L500.4100, L100.0500, L501.9520, L503.6150 #### [facility] [address] [place], [address] RBC (Bld) [#/Vol] 3.08 10*6/uL Low 4.2-5.4 [facility] Comment on above: Order Comment: . Performed By: #### L 501.9985, L506.1001, L500.2500, L501.9310, L500.4100, L100.0500, L501.9520, L503.6150 #### [facility] [address] [place], [address] RDW SD 57.6 fl High 35.1-43.9 [facility] Comment on above: Order Comment: . Performed By: #### L 501.9985, L506.1001, L500.2500, L501.9310, L500.4100, L100.0500, L501.9520, L503.6150 #### [facility] [address] [place], [address] WBC (Bld) [#/Vol] 3.2 10*3/uL Low 4.4-11.0 [facility] Comment on above: Order Comment: . Performed By: #### L 501.9985, L506.1001, L500.2500, L501.9310, L500.4100, L100.0500, L501.9520, L503.6150 #### [facility] [address] [place], [address] Basic Metabolic Profile (BMP )on 01-19-2024 BUN Normal 7-18 [facility] Comment on above: Result Comment: Canc elled via OM: Order cancelled - Patient discharged Performed By: #### L 500.2500 #### [facility] [address] [place], [address] BUN/CRE Normal 10-20 [facility] Comment on above: Result Comment: Canc elled via OM: Order cancelled - Patient discharged Performed By: #### L 500.2500 #### [facility] [address] [place], [address] CA,Total Normal 8.5-10.1 [facility] Comment on above: Result Comment: Canc elled via OM: Order cancelled - Patient discharged Performed By: #### L 500.2500 #### [facility] [address] [place], [address] CL Normal 98-107 [facility] Comment on above: Result Comment: Canc elled via OM: Order cancelled - Patient discharged Performed By: #### L 500.2500 #### [facility] [address] [place], [address] CO2 Normal 21.0-32.0 [facility] Comment on above: Result Comment: Canc elled via OM: Order cancelled - Patient discharged Performed By: #### L 500.2500 #### [facility] [address] [place], [address] CREAT,SERUM Normal 0.55-1.02 [facility] Comment on above: Result Comment: Canc elled via OM: Order cancelled - Patient discharged Performed By: #### L 500.2500 #### [facility] [address] [place], [address] EST GFR Normal >60 [facility] Comment on above: Result Comment: Canc elled via OM: Order cancelled - Patient discharged Performed By: #### L 500.2500 #### [facility] [address] [place], [address] EST GFR - AA Normal >60 [facility] Comment on above: Result Comment: Canc elled via OM: Order cancelled - Patient discharged Performed By: #### L 500.2500 #### [facility] [address] [place], [address] GAP Normal 5-15 [facility] Comment on above: Result Comment: Canc elled via OM: Order cancelled - Patient discharged Performed By: #### L 500.2500 #### [facility] [address] [place], [address] GLU Normal 74-106 [facility] Comment on above: Result Comment: Canc elled via OM: Order cancelled - Patient discharged Performed By: #### L 500.2500 #### [facility] [address] [place], [address] Potassium Normal 3.5-5.1 [facility] Comment on above: Result Comment: Canc elled via OM: Order cancelled - Patient discharged Performed By: #### L 500.2500 #### [facility] [address] [place], [address] Basic Metabolic Profile (BMP) Normal 136-145 [facility] Comment on above: Result Comment: Canc elled via OM: Order cancelled - Patient discharged Performed By: #### L 500.2500 #### [facility] [address] [place], [address] CBC W/Diff, Automatedon 07-2 Absolute Neut Normal 2.0-7.7 [facility] Comment on above: Result Comment: Canc elled via OM: Order cancelled - Patient discharged Performed By: #### L 100.0100 #### [facility] [address] [place], [address] HCT Normal 37-47 [facility] Comment on above: Result Comment: Canc elled via OM: Order cancelled - Patient discharged Performed By: #### L 100.0100 #### [facility] [address] [place], [address] HGB Normal 12.0-15.0 [facility] Comment on above: Result Comment: Canc elled via OM: Order cancelled - Patient discharged Performed By: #### L 100.0100 #### [facility] [address] [place], [address] MCH Normal 27.0-32.0 [facility] Comment on above: Result Comment: Canc elled via OM: Order cancelled - Patient discharged Performed By: #### L 100.0100 #### [facility] [address] [place], [address] MCHC Normal 32-36 [facility] Comment on above: Result Comment: Canc elled via OM: Order cancelled - Patient discharged Performed By: #### L 100.0100 #### [facility] [address] [place], [address] MCV Normal 81-99 [facility] Comment on above: Result Comment: Canc elled via OM: Order cancelled - Patient discharged Performed By: #### L 100.0100 #### [facility] [address] [place], [address] NEUT% Normal 47-70 [facility] Comment on above: Result Comment: Canc elled via OM: Order cancelled - Patient discharged Performed By: #### L 100.0100 #### [facility] [address] [place], [address] PLT Normal 150-450 [facility] Comment on above: Result Comment: Canc elled via OM: Order cancelled - Patient discharged Performed By: #### L 100.0100 #### [facility] [address] [place], [address] RBC Normal 4.2-5.4 [facility] Comment on above: Result Comment: Canc elled via OM: Order cancelled - Patient discharged Performed By: #### L 100.0100 #### [facility] [address] [place], [address] RDW CV Normal 11.6-14.6 [facility] Comment on above: Result Comment: Canc elled via OM: Order cancelled - Patient discharged Performed By: #### L 100.0100 #### [facility] [address] [place], [address] RDW SD Normal 35.1-43.9 [facility] Comment on above: Result Comment: Canc elled via OM: Order cancelled - Patient discharged Performed By: #### L 100.0100 #### [facility] [address] [place], [address] WBC Normal 4.4-11.0 [facility] Comment on above: Result Comment: Canc elled via OM: Order cancelled - Patient discharged Performed By: #### L 100.0100 #### [facility] [address] [place], [address] CNPNon 11-25-2023 [facility] Telephone (PAULYWS) STEVE VIEIRA ([id number]) 1945 F Date Time Provider Department 11/25/23 [facility] During your visit today, we recorded the following information about you: Alta Ortiz LPN 11/25/2023 3:46 PM Signed Naye with [facility] calls to report that pt was prescribed Freestyle Pilar 3 reader and sensors. Naye reports they sent pt one of the sensor rx and pt told Naye that she has not begun to use Pilar 3 because she has no idea how to use it. Naye wanted pcp to be aware of this and is asking if pt is going to have someone that will be helping pt. ROSELIA Jeter Liza D, MD 11/26/2023 8:19 PM Signed Have patient come in for DM teaching--see if can get in with certified adapted physical educator or [employer] to help with use of CGM as well as help with DM education. Loraine Johnson LPN 11/28/2023 1:09 PM Signed Spoke with patient and she is not opposed to seeing Mitzy Neves. Please call patient to schedule. Does this require a referral to see him? Peter Ellis MD 11/28/2023 3:19 PM Signed Let me know if needs a referral. I don't think Medicare requires a referral Steve Aaron 12/03/2023 9:42 AM Signed 1st call attempt, left vm Renetta Abernathy LPN 12/04/2023 2:10 PM Signed Pt has been admitted to [facility]. See ER and HANDP note. Allergies As of Date: 11/25/2023 Noted Allergy Reaction CONTRAST DYE 06/02/2014 8 [...] after taking 12.5mg of meclizine Date Reviewed: 11/12/2023 Reviewed by: Roula Woodall LPN - Fully Assessed Reason for Visit: Medication Problem [65] Prescriptions as of 12/04/2023 - Blood-Glucose Meter,Continuous (FREESTYLE IPLAR 3 READER) misc Use to check blood sugar at least four (4) times daily. - Blood-Glucose Sensor (FREESTYLE PLIAR 3 SENSOR) julisa Apply new sensor every fourteen (14) days to upper arm. - metFORMIN ER (GLUCOPHAGE XR) 500 mg [...] subcutaneously one time a week. Gets through [employer] PAP. - levothyroxine (SYNTHROID) 25 mcg tablet Take 1 tablet by mouth every Friday,Friday, ay. Take on empty stomach. For thyroid. Add to the levothyroxine 50 mcg once daily dosing but just on Fri-Fri-Fri - empagliflozin (JARDIANCE) 25 mg tablet Take 1 tablet by mouth daily with breakfast. Gets through [employer] PAP. - ferrous sulfate 325 mg (65 mg iron) tablet Take 325 mg by mouth once daily. - blood sugar diagnostic (BLOOD GLUCOSE TEST) test strip Test blood sugar(s) 2 times daily. Dx: Type 2 DM - Controlled E11.9 Insulin: No - Lancets lancets Test blood sugar(s) 2 daily. Dx: E11.9 Insulin: No Problem List As Of Date 11/25/2023 Noted Resolved DIABETES MELLITUS TYPE II-UNCOMPL [E11.9] [...] anemia [D50.9] 08/13/2021 B12 deficiency [E53.8] 08/13/2021 Diabetes mellitus without complication (HCC) [E*11/12/2023 Encounter Status:Closed by RENETTA ABERNATHY [facility]04/[facility] ([id number]) 1945 F Date Time Provider Department 11/14/23 SHERWIN CHE During your visit today, we recorded the following information about you: Sherwin Che, OSITO 11/14/2023 9:58 AM Signed Lesli left message for patient to return call to discuss home care needs. Lesli does not see any mention of status of guardianship appointment for patient. Lesli will discuss further with patient and when she returns call. Sherwin Che, OSITO 11/19/2023 12:45 PM Signed Lesli spoke with TREVA Wang and she reports that patient guardianship application was never submitted to court. Patient son Salomón did not sign application, which would be needed to submit to probate court. Felipe notes that patient should reach out to son and have son let her know what service/support patient needs help with at this time. Felipe notes that she is aware that patient has meals on wheels set up for home delivered meals. Felipe also noted that Salomón and told her that he was working and helping patient set up supportive home services. Lesli will reach back out to patient and request that she call her son Salomón for him to connect with TREVA Wang in regards to any current service needs that patient would need set up in the home. Sherwin Che, OSITO 11/20/2023 4:02 PM Signed Lesli spoke with patient in regards to asking son Salomón to reach out to TREVA Wang. Abbi says she can tell Salomón, but she will call Felipe herself to discuss home care service needs. Abbi read TREVA Hernandez direct number and patient notes that she will reach out to TREVA Wang for assistance. Allergies As of Date: 11/14/2023 Noted Allergy Reaction CONTRAST DYE 06/02/2014 8 [...] after taking 12.5mg of meclizine Date Reviewed: 11/12/2023 Reviewed by: Roula Woodall LPN - Fully Assessed Prescriptions as of 11/20/2023 - Blood-Glucose Meter,Continuous (FREESTYLE PILAR 3 READER) [facility] Use to check blood sugar at least four (4) times daily. - Blood-Glucose Sensor (FREESTYLE PILAR 3 SENSOR) julisa Apply new sensor every fourteen (14) days to upper arm. - metFORMIN ER (GLUCOPHAGE XR) 500 mg [...] week. Gets through [employer] PAP. - levothyroxine (SYNTHROID) 25 mcg tablet Take 1 tablet by mouth every Friday,Friday, ay. Take on empty stomach. For thyroid. Add to the levothyroxine 50 mcg once daily dosing but just on Fri-Fri-Fri - empagliflozin (JARDIANCE) 25 mg tablet Take 1 tablet by mouth daily with breakfast. Gets through [employer] PAP. - ferrous sulfate 325 mg (65 mg iron) tablet Take 325 mg by mouth once daily. - blood sugar diagnostic (BLOOD GLUCOSE TEST) test strip Test blood sugar(s) 2 times daily. Dx: Type 2 DM - Controlled E11.9 Insulin: No - Lancets lancets Test blood sugar(s) 2 daily. Dx: E11.9 Insulin: No Problem List As Of Date 11/14/2023 Noted Resolved DIABETES MELLITUS TYPE II-UNCOMPL [E11.9] [...] anemia [D50.9] 08/13/2021 B12 deficiency [E53.8] 08/13/2021 Diabetes mellitus without complication (HCC) [E*11/12/2023 Encounter Status:Clos (more content not included)... Normal [facility] CNPNon 11-13-2023 CNPN Telephone (INTMWS) STEVE VIEIRA ([id number]) 1945 F Date Time Provider Department 11/13/23 PETER ELLIS INTMWS During your visit today, we recorded the following information about you: Sharon Mayer, SHANNON 11/13/2023 11:58 AM Signed Ethan with the PA Department with [employer] called and reports they need the notes regarding the Free Style Pilar. I let him know that they needed to be signed and as soon as the provider does this we would fax them to # [phone]. Loan Johnston MA 11/13/2023 3:32 PM Signed Faxed office notes/A1c values with additonal question form ИВАН Suazo Amanda, RN 11/14/2023 9:19 AM Signed Faxed completed signed last OV note from 11/12/23 to PA Department with [employer] fax # [phone]. Loan Johnston MA 11/17/2023 8:56 AM Signed Notified that pilar 3 reader and sensors are approved Left message for patient on Loan Johnston MA Allergies As of Date: 11/13/2023 Noted Allergy Reaction CONTRAST DYE 06/02/2014 8 [...] after taking 12.5mg of meclizine Date Reviewed: 11/12/2023 Reviewed by: Roula Woodall LPN - Fully Assessed Reason for Visit: Insurance Authorization [[id number]] Cmt: pilar Prescriptions as of 11/17/2023 - Blood-Glucose Meter,Continuous (FREESTYLE PILAR 3 READER) [facility] Use to check blood sugar at least four (4) times daily. - Blood-Glucose Sensor (FREESTYLE PILAR 3 SENSOR) julisa Apply new sensor every fourteen (14) days to upper arm. - metFORMIN ER (GLUCOPHAGE XR) 500 mg [...] subcutaneously one time a week. Gets through [employer] PAP. - levothyroxine (SYNTHROID) 25 mcg tablet Take 1 tablet by mouth every Friday,Friday, ay. Take on empty stomach. For thyroid. Add to the levothyroxine 50 mcg once daily dosing but just on Fri-Fri-Fri - empagliflozin (JARDIANCE) 25 mg tablet Take 1 tablet by mouth daily with breakfast. Gets through [employer] PAP. - ferrous sulfate 325 mg (65 mg iron) tablet Take 325 mg by mouth once daily. - blood sugar diagnostic (BLOOD GLUCOSE TEST) test strip Test blood sugar(s) 2 times daily. Dx: Type 2 DM - Controlled E11.9 Insulin: No - Lancets lancets Test blood sugar(s) 2 daily. Dx: E11.9 Insulin: No Problem List As Of Date 11/13/2023 Noted Resolved DIABETES MELLITUS TYPE II-UNCOMPL [E11.9] [...] anemia [D50.9] 08/13/2021 B12 deficiency [E53.8] 08/13/2021 Diabetes mellitus without complication (HCC) [E*11/12/2023 Encounter Status:Closed by SHARON MAYER on 11/14/23 [facility] 11-12-2023 CNOV Office Visit (INTMWS ) STEVE VIEIRA ([id number]) 1945 F Date Time Provider Department 11/12/23 2:00 PM PETER ELLIS INTMWS During your visit today, we recorded the following information about you: Temperature Pulse Respiration Blood pressure 97.6 degrees 93/minute 18/minute 124/72 Peter Ellis MD 11/14/2023 9:10 AM Signed This note was created using [employer]. Subjective Steve Vieira is a 78 year old female. Patient presents with: F/U 4 month SUBJECTIVE: Steve Vieira is a 78 year old year old lady here today for 4 month follow up appointment for review of medical conditions. Vision bad since was in hospital. Feels lost Cannot think clearly. Memory issues. Has issues with transportation. Someone helped bring her in for her appointment and dropped her off. Does not know who they were.She was walking from home to her appointment. Eats [employer] and [employer]. Has cat. States trying to Was at hospital then went to [facility]. Not sure when went home. State a lot of people had amputations. Did rehab then went home. No home health after was sent home except for maybe they came to talk to her. Mouth dry. Sugars not checked at all. Urinary incontinence. Always hungry. Meals on Wheels. Kids order food for her. States family wants her to move where they are ([place] and [place]). Has a friend who lives [place]--prefers to move there. Kids were here after when she was transferred to [facility] then had to go back to their homes. Not sure about her meds but gets from [place]. Wants CGM so can check sugars. Feet completely numb--chronic. Falls frequently PAST MEDICAL HISTORY Diagnosis Date Benign paroxysmal [...] subcutaneously one time a week. Gets through [employer] PAP. levothyroxine (SYNTHROID) 25 mcg tablet Take 1 tablet by mouth every Friday,Friday, ay. Take on empty stomach. For thyroid. Add to the levothyroxine 50 mcg once daily dosing but just on Fri-Fri-Fri empagliflozin (JARDIANCE) 25 mg tablet Take 1 tablet by mouth daily with breakfast. Gets through [employer] PAP. ferrous sulfate 325 mg (65 mg iron) tablet Take 325 mg by mouth once daily. blood sugar diagnostic (BLOOD GLUCOSE TEST) test strip Test blood sugar(s) 2 times daily. Dx: Type 2 DM - Controlled E11.9 Insulin: No Lancets lancets Test blood sugar(s) 2 daily. Dx: E11.9 Insulin: No No current facility-administered medications for this visit. OBJECTIVE: Review of Systems Objective BP 124/72 Pulse 93 Temp 36.4 ?C (97.6 ?F) Resp 18 SpO2 100% Physical Exam Constitutional: Appearance: Normal appearance. Comments: Clothes wet from urinary incontinence. HENT: Head: Normocephalic. Eyes: Conjunctiva/sclera: Conjunctivae normal. Cardiovascular: Rate and Rhythm: Normal rate and regular rhythm. Heart sounds: Normal heart sounds. Pulmonary: Effort: Pulmonary effort is normal. Breath sounds: Normal breath sounds. Musculoskeletal: Right lower leg: No edema. Left lower leg: No edema. Skin: General: Skin is warm and dry. Neurological: General: No focal deficit present. Mental Status: She is alert and oriented to person, place, and time. Psychiatric: Mood and Affect: Mood normal. Behavior: Behavior normal. Thought Content: Thought content normal. Latest Ref Rng 07/04/2023 08/25/2023 10/31/2023 WBC 3.70 - 11.00 k/uL 5.46 5.35 4.63 RBC 3.90 - 5.20 m/uL 3.37 (L) 4.04 3.88 (L) Hemoglobin 11.5 - 15.5 g/dL 7.8 (L) 10.4 (L) 10.6 (L) Hematocrit 36.0 - 46.0 % 27.9 (L) 36.0 35.6 (L) MC (more content not included)... Normal [facility] CBC W Auto Differential pane l (Bld)on 10-31-2023 Basophils (Bld) [#/Vol] 0.05 10*3/uL [facility] Basophils/100 WBC (Bld) 1.1 % [facility] Differential cell count method Nom (Bld) Auto [facility] Eosinophils (Bld) [#/Vol] 0.33 10*3/uL [facility] Eosinophils/100 WBC (Bld) 7.1 % [facility] Erythrocyte distribution width (RBC) [Ratio] 15.4 % High 11.5 - 15.0 % [facility] Hematocrit (Bld) [Volume fraction] 35.6 % Low 36.0 - 46.0 % [facility] Hemoglobin (Bld) [Mass/Vol] 10.6 g/dL Low 11.5 - 15.5 g/dL [facility] Immature granulocytes (Bld) [#/Vol] [facility] Immature granulocytes/100 WBC (Bld) 0.2 % [facility] Interpretation and review of laboratory results Abnormal [facility] Lymphocytes (Bld) [#/Vol] 1.23 10*3/uL [facility] Lymphocytes/100 WBC (Bld) 26.6 % [facility] MCH (RBC) [Entitic mass] 27.3 pg 26. 0 - 34.0 pg [facility] MCHC (RBC) [Mass/Vol] 29.8 g/dL Low 30.5 - 36.0 g/dL [facility] MCV (RBC) [Entitic vol] 91.8 fL 80.0 - 100.0 fL [facility] Monocytes (Bld) [#/Vol] 0.36 10*3/uL [facility] Monocytes/100 WBC (Bld) 7.8 % [facility] Neutrophils (Bld) [#/Vol] 2.65 10*3/uL [facility] Neutrophils/100 WBC (Bld) 57.2 % [facility] Nucleated RBC (Bld) [#/Vol] NINF [facility] Nucleated RBC/100 WBC (Bld) [Ratio] 0.0 % /100 WBC [facility] Platelet mean volume (Bld) [Entitic vol] 11.8 fL 9.0 - 12.7 fL [facility] Platelets (Bld) [#/Vol] 177 10*3/uL [facility] RBC (Bld) [#/Vol] 3.88 10*6/uL Low 3.90 - 5.2 0 m/uL [facility] WBC (Bld) [#/Vol] 4.63 10*3/uL [facility] Basophils (Bld) [#/Vol] 0.05 10*3/uL Normal <0.11 [facility] Comment on above: Order Comment: Speci men Type: BLOOD SPECIMENOrdering Facility: [facility] Address: [address] [place] [address] Performed By: #### 5 7021-8 ####[facility] LABIA [id number] [place] [address] [place] Basophils/100 WBC (Bld) 1.1 % Normal [facility] Comment on above: Order Comment: Speci men Type: BLOOD SPECIMENOrdering Facility: [facility] Address: [address] [place] [address] Performed By: #### 5 7021-8 ####[facility] LABIA [id number] [place] [address] [place] Differential cell count method Nom (Bld) Auto Normal [facility] Comment on above: Order Comment: Speci men Type: BLOOD SPECIMENOrdering Facility: [facility] Address: [address] [place] [address] Performed By: #### 5 7021-8 ####[facility] LABCLIA [id number] [place] [address] [place] Eosinophils (Bld) [#/Vol] 0.33 10*3/uL Normal <0.46 [facility] Comment on above: Order Comment: Speci men Type: BLOOD SPECIMENOrdering Facility: [facility] Address: [address] [place] [address] Performed By: #### 5 7021-8 ####[facility] LABCLIA [id number] [place] [address] [place] Eosinophils/100 WBC (Bld) 7.1 % Normal [facility] Comment on above: Order Comment: Speci men Type: BLOOD SPECIMENOrdering Facility: [facility] Address: [address] [place] [address] Performed By: #### 5 7021-8 ####[facility] LABCLIA [id number] [place] [address] [place] Erythrocyte distribution width (RBC) [Ratio] 15.4 % High 11.5-15.0 [facility] Comment on above: Order Comment: Speci men Type: BLOOD SPECIMENOrdering Facility: [facility] Address: [address] [place] [address] Performed By: #### 5 7021-8 ####[facility] LABCLIA [id number] [place] [address] [place] Hematocrit (Bld) [Volume fraction] 35.6 % Low 36.0-46.0 [facility] Comment on above: Order Comment: Speci men Type: BLOOD SPECIMENOrdering Facility: [facility] Address: [address] [place] [address] Performed By: #### 5 7021-8 ####[facility] LABCLIA [id number] [place] [address] [place] Hemoglobin (Bld) [Mass/Vol] 10.6 g/dL Low 11.5-15.5 [facility] Comment on above: Order Comment: Speci men Type: BLOOD SPECIMENOrdering Facility: [facility] Address: [address] [place] [address] Performed By: #### 5 7021-8 ####[facility] LABCLIA [id number] [place] [address] [place] Immature granulocytes (Bld) [#/Vol] 10*3/uL Normal <0.10 [facility] Comment on above: Order Comment: Speci men Type: BLOOD SPECIMENOrdering Facility: [facility] Address: [address] [place] [address] Performed By: #### 5 7021-8 ####[facility] LABCLIA [id number] [place] [address] [place] Immature granulocytes/100 WBC (Bld) 0.2 % Normal [facility] Comment on above: Order Comment: Speci men Type: BLOOD SPECIMENOrdering Facility: [facility] Address: [address] [place] [address] Performed By: #### 5 7021-8 ####[facility] LABCLIA [id number] [place] [address] [place] Lymphocytes (Bld) [#/Vol] 1.23 10*3/uL Normal 1.00-4.0 0 [facility] Comment on above: Order Comment: Speci men Type: BLOOD SPECIMENOrdering Facility: [facility] Address: [address] [place] [address] Performed By: #### 5 7021-8 ####[facility] LABCLIA [id number] [place] [address] [place] Lymphocytes/100 WBC (Bld) 26.6 % Normal [facility] Comment on above: Order Comment: Speci men Type: BLOOD SPECIMENOrdering Facility: [facility] Address: [address] [place] [address] Performed By: #### 5 7021-8 ####[facility] LABCLIA [id number] [place] [address] [place] MCH (RBC) [Entitic mass] 27.3 pg Normal 26.0-34.0 [facility] Comment on above: Order Comment: Speci men Type: BLOOD SPECIMENOrdering Facility: [facility] Address: [address] [place] [address] Performed By: #### 5 7021-8 ####[facility] LABIA [id number] [place] [address] [place] MCHC (RBC) [Mass/Vol] 29.8 g/dL Low 30.5-36.0 [facility] Comment on above: Order Comment: Speci men Type: BLOOD SPECIMENOrdering Facility: [facility] Address: [address] [place] [address] Performed By: #### 5 7021-8 ####[facility] LABIA [id number] [place] [address] [place] MCV (RBC) [Entitic vol] 91.8 fL Normal 80.0-100.0 C [facility] Comment on above: Order Comment: Speci men Type: BLOOD SPECIMENOrdering Facility: [facility] Address: [address] [place] [address] Performed By: #### 5 7021-8 ####[facility] LABCLIA [id number] [place] [address] [place] Monocytes (Bld) [#/Vol] 0.36 10*3/uL Normal <0.87 [facility] Comment on above: Order Comment: Speci men Type: BLOOD SPECIMENOrdering Facility: [facility] Address: [address] [place] [address] Performed By: #### 5 7021-8 ####[facility] LABCLIA [id number] [place] [address] [place] Monocytes/100 WBC (Bld) 7.8 % Normal [facility] Comment on above: Order Comment: Speci men Type: BLOOD SPECIMENOrdering Facility: [facility] Address: [address] [place] [address] Performed By: #### 5 7021-8 ####[facility] LABCLIA [id number] [place] [address] [place] Neutrophils (Bld) [#/Vol] 2.65 10*3/uL Normal 1.45-7.5 0 [facility] Comment on above: Order Comment: Speci men Type: BLOOD SPECIMENOrdering Facility: [facility] Address: [address] [place] [address] Performed By: #### 5 7021-8 ####[facility] LABCLIA [id number] [place] [address] [place] Neutrophils/100 WBC (Bld) 57.2 % Normal [facility] Comment on above: Order Comment: Speci men Type: BLOOD SPECIMENOrdering Facility: [facility] Address: [address] [place] [address] Performed By: #### 5 7021-8 ####[facility] LABCLIA [id number] [place] [address] [place] Nucleated RBC (Bld) [#/Vol] 10*3/uL Normal <0.01 [facility] Comment on above: Order Comment: Speci men Type: BLOOD SPECIMENOrdering Facility: [facility] Address: [address] [place] [address] Performed By: #### 5 7021-8 ####[facility] LABCLIA [id number] [place] [address] [place] Nucleated RBC/100 WBC (Bld) [Ratio] 0.0 /100 WBC Normal [facility] Comment on above: Order Comment: Speci men Type: BLOOD SPECIMENOrdering Facility: [facility] Address: [address] [place] [address] Performed By: #### 5 7021-8 ####[facility] LABIA [id number] [place] [address] [place] Platelet mean volume (Bld) [Entitic vol] 11.8 fL Normal 9.0-12.7 [facility] Comment on above: Order Comment: Speci men Type: BLOOD SPECIMENOrdering Facility: [facility] Address: [address] [place] [address] Performed By: #### 5 7021-8 ####[facility] LABIA [id number] [place] [address] [place] Platelets (Bld) [#/Vol] 177 10*3/uL Normal 150-400 [facility] Comment on above: Order Comment: Speci men Type: BLOOD SPECIMENOrdering Facility: [facility] Address: [address] [place] [address] Performed By: #### 5 7021-8 ####[facility] LABIA [id number] [place] [address] [place] RBC (Bld) [#/Vol] 3.88 10*6/uL Low 3.90-5.20 [facility] Comment on above: Order Comment: Speci men Type: BLOOD SPECIMENOrdering Facility: [facility] Address: [address] [place] [address] Performed By: #### 5 7021-8 ####[facility] LABCLIA [id number] [place] [address] [place] WBC (Bld) [#/Vol] 4.63 10*3/uL Normal 3.70-11.00 [facility] Comment on above: Order Comment: Speci men Type: BLOOD SPECIMENOrdering Facility: [facility] Address: [address] [place] [address] Performed By: #### 5 7021-8 ####[facility] LABLALOIA [id number] [facility] [id number] [id number] [facility] 10-31-2023 CNPN Telephone (INTMWS) DARIELSTEVE Wagoner ([id number]) 1945 F Date Time Provider Department 10/31/23 PETER ELLIS INTMWS During your visit today, we recorded the following information about you: Roula Woodall LPN 10/31/2023 11:08 AM Signed Patient here to have labs drawn for OV with PCP on 11/12/23. Waiting down front and can call Julia at ext [phone] to update pt. Last OV 08/25/23 with labs done then. ORSELIA Márquez Rosa, APRN.C T TECH 10/31/2023 11:20 AM Signed Please let lab know orders placed. Loraine Johnson LPN 10/31/2023 12:03 PM Signed Labs in process Allergies As of Date: 10/31/2023 Noted Allergy Reaction CONTRAST DYE 06/02/2014 8 [...] after taking 12.5mg of meclizine Date Reviewed: 08/25/2023 Reviewed by: Augusto Ross MA - Fully Assessed Reason for Visit: Labs needed [Other] Primary Visit Diagnosis:Encounter for therapeutic drug monitoring [Z51.81] Other Visit Diagnoses:Acquired hypothyroidism [E03.9] Iron deficiency anemia, unspecified iron deficiency anemia type [D50.9] Type 2 diabetes mellitus without complication, without long-term current use of insulin (HCC) [E11.9] Order(s):COMPLETE BLOOD COUNT AND DIFFERENTIAL [SQCBCDIF] Order #: [id number] FUTURE COMPREHENSIVE METABOLIC PANEL [SQCMP] Order #: [id number] FUTURE THYROID STIMULATING HORMONE [SQTSH] Order #: [id number] FUTURE T3, FREE [SQFREET3] Order #: [id number] FUTURE T4 FREE/FREE THYROXINE [SQFT4] Order #: [id number] FUTURE IRON AND TIBC [SQIRON] Order #: [id number] FUTURE FERRITIN [SQFERR] Order #: [id number] FUTURE HEMOGLOBIN A1C [KHYBY4O] Order #: [id number] FUTURE Prescriptions as of 10/31/2023 - metFORMIN ER (GLUCOPHAGE XR) 500 mg [...] week. Gets through [employer] PAP. - levothyroxine (SYNTHROID) 25 mcg tablet Take 1 tablet by mouth every Friday,Friday, ay. Take on empty stomach. For thyroid. Add to the levothyroxine 50 mcg once daily dosing but just on Fri-Fri-Fri - empagliflozin (JARDIANCE) 25 mg tablet Take 1 tablet by mouth daily with breakfast. Gets through [employer] PAP. - ferrous sulfate 325 mg (65 mg iron) tablet Take 325 mg by mouth once daily. - blood sugar diagnostic (BLOOD GLUCOSE TEST) test strip Test blood sugar(s) 2 times daily. Dx: Type 2 DM - Controlled E11.9 Insulin: No - Lancets lancets Test blood sugar(s) 2 daily. Dx: E11.9 Insulin: No Problem List As Of Date 10/31/2023 Noted Resolved DIABETES MELLITUS TYPE II-UNCOMPL [E11.9] [...] B12 deficiency [E53.8] 08/13/2021 Encounter Status:Closed by LORAINE JOHNSON on 10/31/23 Normal [facility] Comprehensive metabolic 2000 panelon 10-31-2023 Albumin [Mass/Vol] 4.3 g/dL Normal 3.9-4.9 [facility] Comment on above: Order Comment: Speci men Type: BLOOD SPECIMENOrdering Facility: [facility] Address: [address] [place] [address] Performed By: #### 2 4323-8, 09784-5, 3051-0, 3024-7 ####[facility] LABCLIA [id number] [facility] [id number], [place] [address] [place] ALP [Catalytic activity/Vol] 226 U/L High 34-123 [facility] [facility] Comment on above: Order Comment: Speci men Type: BLOOD SPECIMENOrdering Facility: [facility] Address: [address] [place] [address] Performed By: #### 2 4323-8, 39660-9, 3051-0, 3024-7 ####[facility] [id number] [address] [place] ALT [Catalytic activity/Vol] 66 U/L High 7-38 [facility] Comment on above: Order Comment: Speci men Type: BLOOD SPECIMENOrdering Facility: [facility] Address: [address] [place] [address] Performed By: #### 2 4323-8, 32384-7, 3051-0, 302-7 ####[facility] [id number] [place] [address] [place] Anion gap [Moles/Vol] 13 mmol/L Normal 9-18 [facility] Comment on above: Order Comment: Speci men Type: BLOOD SPECIMENOrdering Facility: [facility] Address: [address] [place] [address] Performed By: #### 2 4323-8, 54074-0, 3051-0, 302-7 ####[facility] LABIA [id number] [address] [place] AST [Catalytic activity/Vol] 76 U/L High 13-35 [facility] Comment on above: Order Comment: Speci men Type: BLOOD SPECIMENOrdering Facility: [facility] Address: [address] [place] [address] Performed By: #### 2 4323-8, 67786-5, 3051-0, 3024-7 ####[facility] [id number] [place] [address] [place] Bilirubin [Mass/Vol] 0.5 mg/dL Normal 0.2-1.3 [facility] Comment on above: Order Comment: Speci men Type: BLOOD SPECIMENOrdering Facility: [facility] Address: [address] [place] [address] Performed By: #### 2 4323-8, 48403-4, 3051-0, 3024-7 ####[facility] [id number] [place] [address] [place] Calcium [Mass/Vol] 10.1 mg/dL Normal 8.5-10.2 [facility] Comment on above: Order Comment: Speci men Type: BLOOD SPECIMENOrdering Facility: [facility] Address: [address] [place] [address] Performed By: #### 2 4323-8, 07059-7, 3051-0, 302-7 ####[facility] [id number] [place] [address] [place] Chloride [Moles/Vol] 101 mmol/L Normal 97-105 [facility] Comment on above: Order Comment: Speci men Type: BLOOD SPECIMENOrdering Facility: [facility] Address: [address] [place] [address] Performed By: #### 2 4323-8, 89501-1, 3051-0, 302-7 ####[facility] [id number] [place] [address] [place] CO2 [Moles/Vol] 21 mmol/L Low 22-30 [facility] Comment on above: Order Comment: Speci men Type: BLOOD SPECIMENOrdering Facility: [facility] Address: [address] [place] [address] Performed By: #### 2 4323-8, 67319-0, 3051-0, 302-7 ####[facility] [id number] [facility] [place] [address] [place] Creatinine [Mass/Vol] 0.60 mg/dL Normal 0.58-0.96 [facility] Comment on above: Order Comment: Sudhakar mera Type: BLOOD SPECIMENOrdering Facility: [facility] Address: [address] [place] [address] Performed By: #### 2 4323-8, 09556-9, 3051-0, 3024-7 ####[facility] [id number] [place] [address] [place] Creatinine and Glomerular filtration rate.predicted panel (S/P/Bld) 91 mL/min/1.73m??? Normal >=60 [facility] Comment on above: Order Comment: Sudhakar mera Type: BLOOD SPECIMENOrdering Facility: [facility] Address: [address] [place] [address] Result Comment: Audra mated Glomerular Filtration Rate (eGFR) is calculated using the 2020 CKD-EPI creatinine equation. This equation utilizes serum creatinine, sex, and age as parameters. The creatinine assay has traceable calibration to isotope dilution-mass spectrometry. Refer to KDIGO guidelines for clinical interpretation. In patients with unstable renal function, e.g. those with acute kidney injury, the eGFR may not accurately reflect actual GFR. Performed By: #### 2 4323-8, 75332-0, 3051-0, 3024-7 ####[facility] [id number] [place] [address] [place] Glucose [Mass/Vol] 479 mg/dL High 74-99 [facility] Comment on above: Order Comment: Sudhakar mera Type: BLOOD SPECIMENOrdering Facility: [facility] Address: [address] [place] [address] Result Comment: The [place] Diabetes Association (ADA) provides guidance for cutoff values for fasting glucose and random glucose. The ADA defines fasting as no caloric intake for at least 8 hours. Fasting plasma glucose results between 100 to 125 mg/dL indicate increased risk for diabetes (prediabetes). Fasting plasma glucose results greater than or equal to 126 mg/dL meet the criteria for diagnosis of diabetes. In the absence of unequivocal hyperglycemia, results should be confirmed by repeat testing. In a patient with classic symptoms of hyperglycemia or hyperglycemic crisis, random plasma glucose results greater than or equal to 200 mg/dL meet the criteria for diagnosis of diabetes. Reference: Standards of Medical Care in Diabetes 2016, [place] Diabetes Association. Diabetes Care. 2016.39(Suppl 1). Performed By: #### 2 4323-8, 65903-1, 3051-0, 3024-7 ####[facility] [id number] [place] [address] [place] Potassium [Moles/Vol] 5.1 mmol/L Normal 3.7-5.1 [facility] Comment on above: Order Comment: Speci men Type: BLOOD SPECIMENOrdering Facility: [facility] Address: [address] [place] [address] Performed By: #### 2 4323-8, 98483-7, 3051-0, 7 ####[facility] LABIA [id number] [place] [address] [place] Protein [Mass/Vol] 7.2 g/dL Normal 6.3-8.0 [facility] Comment on above: Order Comment: Sudhakar mera Type: BLOOD SPECIMENOrdering Facility: [facility] Address: [address] [place] [address] Performed By: #### 2 4323-8, 04557-2, 3051-0, 7 ####[facility] [id number] [place] [id number] [place] Sodium [Moles/Vol] 135 mmol/L Low 136-144 [facility] Comment on above: Order Comment: Dennyi men Type: BLOOD SPECIMENOrdering Facility: [facility] Address: [address] [place] [address] Performed By: #### 2 4323-8, 27946-5, 3051-0, 302-7 ####[facility] [id number] [place] [address] [place] Urea nitrogen [Mass/Vol] 24 mg/dL High 7-21 [facility] Comment on above: Order Comment: Dennyi samaria Type: BLOOD SPECIMENOrdering Facility: [facility] Address: [address] [place] [address] Performed By: #### 2 4323-8, 93311-8, 3051-0, 3024-7 ####[facility] [id number] [place] [address] [place] Ferritin SerPl-mCncon 2023 Ferritin [Mass/Vol] 33.4 ng/mL Normal 14.7-205.1 [facility] Comment on above: Order Comment: Sudhakar mera Type: BLOOD SPECIMENOrdering Facility: [facility] Address: [address] [place] [address] Performed By: #### 2 276-4, 3016-3 ####[facility]IA [id number] [place] [address] [place] HbA1c (Bld)on 10-31-2023 Average glucose Estimated from glycated hemoglobin (Bld) [Mass/Vol] 278 mg/dL Normal [facility] Comment on above: Order Comment: Sudhakar mera Type: BLOOD SPECIMENOrdering Facility: [facility] Address: [address] [place] [address] Result Comment: eAG: (Estimated average glucose) is a calculated value from HgbA1c and is wire rope sales representative of the average blood glucose level in the last 2-3 month period. Performed By: #### 5 5454-3 ####[facility] [id number] [place] [address] [place] HbA1c (Bld) [Mass fraction] 11.3 % High 4.3-5.6 [facility] Comment on above: Order Comment: Sudhakar mera Type: BLOOD SPECIMENOrdering Facility: [facility] Address: [address] [place] [address] Result Comment: [place] Diabetes Association guidelines indicate that patients with HgbA1c in the range 5.7-6.4% are at increased risk for development of diabetes, and intervention by lifestyle modification may be beneficial. HgbA1c greater or equal to 6.5% is considered diagnostic of diabetes. Performed By: #### 5 5454-3 ####[facility] [id number] [place] [address] [place] Iron and Iron binding capaci ty panelon 10-31-2023 Iron [Mass/Vol] 51 ug/dL Normal 41-186 [facility] Comment on above: Order Comment: Speci men Type: BLOOD SPECIMENOrdering Facility: [facility] Address: [address] [place] [address] Performed By: #### 2 4323-8, 39358-4, 305-0, 302-7 ####[facility] [id number] [place] [address] [place] Iron binding capacity [Mass/Vol] 454 ug/dL High 232-386 [facility] Comment on above: Order Comment: Speci men Type: BLOOD SPECIMENOrdering Facility: [facility] Address: [address] [place] [address] Performed By: #### 2 4323-8, 93814-6, 305-0, 302-7 ####[facility] [id number] [place] [address] [place] Iron/TIBC [Molar ratio] 11.2 % Low 15.0-57.0 C [facility] Comment on above: Order Comment: Speci men Type: BLOOD SPECIMENOrdering Facility: [facility] Address: [address] [place] [address] Performed By: #### 2 4323-8, 18128-7, 305-0, 302-7 ####[facility] LABIA [id number] [place] [id number] [place] T3Free SerPl-mCncon 10-31-19 24 Free T3 [Mass/Vol] 2.3 pg/mL Normal 2.3-4.1 [facility] Comment on above: Order Comment: Speci men Type: BLOOD SPECIMENOrdering Facility: [facility] Address: [address] [place] [address] Performed By: #### 2 4323-8, 95501-1, 3051-0, 3024-7 ####[facility] [id number] [place] [address] [place] T4 Free SerPl-mCncon 024 Free T4 [Mass/Vol] 1.1 ng/dL Normal 0.9-1.7 [facility] Comment on above: Order Comment: Speci men Type: BLOOD SPECIMENOrdering Facility: [facility] Address: [address] [place] [address] Performed By: #### 2 4323-8, 02758-7, 3051-0, 3024-7 ####[facility] [id number] [place] [address] [place] TSH SerPl-aCncon 10-31-2023 TSH Qn 3.250 m[IU]/L Normal 0.270-4.200 [facility] Comment on above: Order Comment: Speci men Type: BLOOD SPECIMENOrdering Facility: [facility] Address: [address] [place] [address] Performed By: #### 2 276-4, 3016-3 ####[facility] LABIA [id number] [place] [address] [place] CNPJenna 08-27-2023 CNPN Telephone (INTMWS) STEVE VIEIRA ([id number]) 1945 F Date Time Provider Department 08/27/23 ORIN SOSA During your visit today, we recorded the following information about you: Orin Sosa APRN.CNP 08/27/2023 12:30 PM Signed We can call Abbi to let her know blood work results, vitamin d improving, thyroid stable, iron levels stable with current dose of iron supplement, blood sugar control improving. One concern is that liver numbers are increasing, I would like to check an ultrasound of the liver. This is ordered. She may prefer to have this done at [facility] since transportation is an issue. Please see where she would like to do this and if preference is [facility] then fax order. Thanks. Augusto Ross Ma 08/27/2023 12:34 PM Signed Left message to call office. 08/27/2023 12:34 PM Gema Spain Ma 09/01/2023 10:22 AM Signed Both pt and her son notified. Order for US faxed to [facility]. They will call to schedule. Pt need refill on Trulicity. Gema Vuong Ma, Ma 09/01/2023 10:23 AM Signed Addended by: GEMA SPAIN MA on: 09/01/2023 10:23 AM Modules accepted: Orders Orin Sosa APRN.CNP 09/01/2023 10:52 AM Signed Addended by: ORIN SOSA on: 09/01/2023 10:52 AM Modules accepted: Orders Allergies As of Date: 08/27/2023 Noted Allergy Reaction CONTRAST DYE 06/02/2014 8 [...] after taking 12.5mg of meclizine Date Reviewed: 08/25/2023 Reviewed by: Augusto Ross Ma - Fully Assessed Reason for Visit: Results [95] Primary Visit Diagnosis:Elevated LFTs [R79.89] Other Visit Diagnosis:Type 2 diabetes mellitus without complication, without long-term current use of insulin (HCC) [E11.9] Order(s):US ABD RIGHT UPPER QUADRANT [[id number]] Order #: [id number] FUTURE dulaglutide (TRULICITY) 3 mg/0.5 mL pen injectorInject 3 mg subcutaneously one time a week. Gets through [employer] PAP.Disp: 4 EachRfl: 3 Prescriptions as of 09/01/2023 - dulaglutide (TRULICITY) 3 mg/0.5 mL pen injector Inject 3 mg subcutaneously one time a week. Gets through [employer] PAP. - levothyroxine (SYNTHROID) 25 mcg tablet Take 1 tablet by mouth every Friday,Friday, ay. Take on empty stomach. For thyroid. Add [...] 1 tablet by mouth once daily. - empagliflozin (JARDIANCE) 25 mg tablet Take 1 tablet by mouth daily with breakfast. Gets through [employer] PAP. - ferrous sulfate 325 mg (65 mg iron) tablet Take 325 mg by mouth once daily. - blood sugar diagnostic (BLOOD GLUCOSE TEST) test strip Test blood sugar(s) 2 times daily. Dx: Type 2 DM - Controlled E11.9 Insulin: No - Lancets lancets Test blood sugar(s) 2 daily. Dx: E11.9 Insulin: No Problem List As Of Date 08/27/2023 Noted Resolved DIABETES MELLITUS TYPE II-UNCOMPL [E11.9] [...] anemia [D50.9] 08/13/2021 B12 deficiency [E53.8] 08/13/2021 Prescriptions ordered this encounter Disp Refills Start End DULAGLUTIDE 3 MG/0.5 ML SUBCUTANEOUS* 4 Ea* 3 09/01/2023 Route: SUBCUTANEOUS Sig: Inject 3 mg subcutaneously one time a week. Gets through [facility] PAP. Medications Discontinued During This Encounter Prescriptions - insulin lispr (more content not included)... Normal [facility] 25(OH)D3 [facility] 2023 25-hydroxyvitamin D3 [Mass/Vol] 24.4 ng/mL Low 31.0-80.0 [facility] Comment on above: Order Comment: Speci men Type: BLOOD SPECIMENOrdering Facility: [facility] Address: [address] [place] [address] Result Comment: Clas sification of 25 OH Vitamin D status: Deficiency/Insufficiency: < or = 30 ng/ml. Sufficiency/Optimal Levels: 31-80 ng/mL Toxicity: > 100 ng/mL. Test performed by chemiluminescent immunoassay. Performed By: #### 1 989-3 ####[facility] [id number] [place] [address] [place] CBC W Auto Differential pane l (Bld)on 08-25-2023 Basophils (Bld) [#/Vol] 0.04 10*3/uL Normal <0.11 [facility] Comment on above: Order Comment: Speci men Type: BLOOD SPECIMEN [facility] Address: [address] [place] [address] Performed By: #### 1 989-3 #### [facility] CLIA [id number] [address] [place] [address] [place] Basophils/100 WBC (Bld) 0.7 % Normal [facility] Comment on above: Order Comment: Speci men Type: BLOOD SPECIMEN [facility] Address: [address] [place] [address] Performed By: #### 1 989-3 #### [facility] CLIA [id number] [address] [place] [address] [place] Differential cell count method Nom (Bld) Auto Normal [facility] Comment on above: Order Comment: Speci men Type: BLOOD SPECIMEN [facility] Address: [address] [place] [address] Performed By: #### 1 989-3 #### [facility] CLIA [id number] [address] [place] [address] [place] Eosinophils (Bld) [#/Vol] 0.09 10*3/uL Normal <0.46 [facility] Comment on above: Order Comment: Speci men Type: BLOOD SPECIMEN [facility] Address: [address] [place] [address] Performed By: #### 1 989-3 #### [facility] CLIA [id number] [address] [place] [address] [place] Eosinophils/100 WBC (Bld) 1.7 % Normal [facility] Comment on above: Order Comment: Speci men Type: BLOOD SPECIMEN [facility] Address: [address] [place] [address] Performed By: #### 1 989-3 #### [facility] CLIA [id number] [address] [place] [address] [place] Erythrocyte distribution width (RBC) [Ratio] 20.3 % High 11.5-15.0 [facility] Comment on above: Order Comment: Speci men Type: BLOOD SPECIMEN [facility] Address: [address] [place] [address] Performed By: #### 1 989-3 #### [facility] CLIA [id number] [address] [place] [address] [place] Hematocrit (Bld) [Volume fraction] 36.0 % Normal 36.0-46.0 [facility] Comment on above: Order Comment: Speci men Type: BLOOD SPECIMEN [facility] Address: [address] [place] [address] Performed By: #### 1 989-3 #### [facility] CLIA [id number] [address] [place] [address] [place] Hemoglobin (Bld) [Mass/Vol] 10.4 g/dL Low 11.5-15.5 [facility] Comment on above: Order Comment: Speci men Type: BLOOD SPECIMEN [facility] Address: [address] [place] [address] Performed By: #### 1 989-3 #### [facility] CLIA [id number] [address] [place] [address] [place] Immature granulocytes (Bld) [#/Vol] 0.04 10*3/uL Normal <0.10 [facility] Comment on above: Order Comment: Speci men Type: BLOOD SPECIMEN [facility] Address: [address] [place] [address] Performed By: #### 1 989-3 #### [facility] CLIA [id number] [address] [place] [address] [place] Immature granulocytes/100 WBC (Bld) 0.7 % Normal [facility] Comment on above: Order Comment: Speci men Type: BLOOD SPECIMEN [facility] Address: [address] [place] [address] Performed By: #### 1 989-3 #### [facility] CLIA [id number] [address] [place] [address] [place] Lymphocytes (Bld) [#/Vol] 1.20 10*3/uL Normal 1.00-4.0 0 [facility] Comment on above: Order Comment: Speci men Type: BLOOD SPECIMEN [facility] Address: [address] [place] [address] Performed By: #### 1 989-3 #### [facility] CLIA [id number] [address] [place] [address] [place] Lymphocytes/100 WBC (Bld) 22.4 % Normal [facility] Comment on above: Order Comment: Speci men Type: BLOOD SPECIMEN [facility] Address: [address] [place] [address] Performed By: #### 1 989-3 #### [facility] CLIA [id number] [address] [place] [address] [place] MCH (RBC) [Entitic mass] 25.7 pg Low 26.0-34.0 [facility] Comment on above: Order Comment: Speci men Type: BLOOD SPECIMEN [facility] Address: [address] [place] [address] Performed By: #### 1 989-3 #### [facility] CLIA [id number] [address] [place] [address] [place] MCHC (RBC) [Mass/Vol] 28.9 g/dL Low 30.5-36.0 [facility] Comment on above: Order Comment: Speci men Type: BLOOD SPECIMEN [facility] Address: [address] [place] [address] Performed By: #### 1 989-3 #### [facility] CLIA [id number] [address] [place] [address] [place] MCV (RBC) [Entitic vol] 89.1 fL Normal 80.0-100.0 C [facility] Comment on above: Order Comment: Speci men Type: BLOOD SPECIMEN [facility] Address: [address] [place] [address] Performed By: #### 1 989-3 #### [facility] CLIA [id number] [address] [place] [address] [place] Monocytes (Bld) [#/Vol] 0.34 10*3/uL Normal <0.87 [facility] Comment on above: Order Comment: Speci men Type: BLOOD SPECIMEN [facility] Address: [address] [place] [address] Performed By: #### 1 989-3 #### [facility] CLIA [id number] [address] [place] [address] [place] Monocytes/100 WBC (Bld) 6.4 % Normal C [facility] Comment on above: Order Comment: Speci men Type: BLOOD SPECIMEN [facility] Address: [address] [place] [address] Performed By: #### 1 989-3 #### [facility] CLIA [id number] [address] [place] [address] [place] Neutrophils (Bld) [#/Vol] 3.64 10*3/uL Normal 1.45-7.5 0 [facility] Comment on above: Order Comment: Speci men Type: BLOOD SPECIMEN [facility] Address: [address] [place] [address] Performed By: #### 1 989-3 #### [facility] CLIA [id number] [address] [place] [address] [place] Neutrophils/100 WBC (Bld) 68.1 % Normal [facility] Comment on above: Order Comment: Speci men Type: BLOOD SPECIMEN [facility] Address: [address] [place] [address] Performed By: #### 1 989-3 #### [facility] CLIA [id number] [address] [place] [address] [place] Nucleated RBC (Bld) [#/Vol] 10*3/uL Normal <0.01 [facility] Comment on above: Order Comment: Speci men Type: BLOOD SPECIMEN [facility] Address: [address] [place] [address] Performed By: #### 1 989-3 #### [facility] CLIA [id number] [address] [place] [address] [place] Nucleated RBC/100 WBC (Bld) [Ratio] 0.0 /100 WBC Normal [facility] Comment on above: Order Comment: Speci men Type: BLOOD SPECIMEN [facility] Address: [address] [place] [address] Performed By: #### 1 989-3 #### [facility] CLIA [id number] [address] [place] [address] [place] Platelet mean volume (Bld) [Entitic vol] 11.1 fL Normal 9.0-12.7 [facility] Comment on above: Order Comment: Speci men Type: BLOOD SPECIMEN [facility] Address: [address] [place] [address] Performed By: #### 1 989-3 #### [facility] CLIA [id number] [address] [place] [address] [place] Platelets (Bld) [#/Vol] 247 10*3/uL Normal 150-400 [facility] Comment on above: Order Comment: Speci men Type: BLOOD SPECIMEN [facility] Address: [address] [place] [address] Performed By: #### 1 989-3 #### [facility] CLIA [id number] [address] [place] [address] [place] RBC (Bld) [#/Vol] 4.04 10*6/uL Normal 3.90-5.20 [facility] Comment on above: Order Comment: Speci men Type: BLOOD SPECIMEN [facility] Address: [address] [place] [address] Performed By: #### 1 989-3 #### [facility] CLIA [id number] [address] [place] [address] [place] WBC (Bld) [#/Vol] 5.35 10*3/uL Normal 3.70-11.00 [facility] Comment on above: Order Comment: Speci men Type: BLOOD SPECIMEN [facility] Address: [address] [place] [address] Performed By: #### 1 989-3 #### [facility] CLIA [id number] [address] [place] [address] [place] CNOVon 08-25-2023 CNOV Office Visit (INTMWS ) STEVE VIEIRA ([id number]) 1945 F Date Time Provider Department 08/25/23 11:40 AM ORIN SOSA INTMWS During your visit today, we recorded the following information about you: Pulse Respiration Blood pressure Weight 97/minute 16/minute 101/65 60.3 kg Orin Sosa APRN.C T TECH 08/25/2023 12:56 PM Signed SUBJECTIVE Steve Vieira is a 78 year old female here today for a check up on her medical problems. Chief Complaint Patient presents with: [facility] ER follow up - UTI HPI Steve Vieira is a 78 year old female. She is an established patient of Peter Ellis MD. Here today for follow up, she is a poor historian. Recently seen at [facility] on 08/15, records viewed in care everywhere and found she was admitted 08/15 with discharge 08/16 or 08/17. Diagnosis of dehydration, weakness, hyperglycemia, acute UTI and failure to thrive. There is concerns of her living by herself currently and needing to change her current living situation to promote safety. She was discharged to a SNF ([facility]) 08/16 and unclear when she was discharged [...] the SNF. She did have HHC with [facility], SW is involved. APS did come out to her home 08/13/2023. Knows she has a will but not sure about POA. Court on 08/26/2023. Her medications were reviewed today and her list is now up to date. Medications Current Outpatient Medications Medication Sig levothyroxine (SYNTHROID) 25 mcg tablet Take 1 tablet by mouth every Friday,Friday, ay. Take on empty stomach. For thyroid. Add to the levothyroxine 50 mcg once daily dosing but just on Fri-Fri-Fri metFORMIN ER (GLUCOPHAGE XR) 500 mg 24 [...] subcutaneously one time a week. Gets through [employer] PAP. empagliflozin (JARDIANCE) 25 mg tablet Take 1 tablet by mouth daily with breakfast. Gets through [employer] PAP. ferrous sulfate 325 mg (65 mg [...] Review of Systems Respiratory: Negative. Cardiovascular: Negative. Psychiatric/Behaviora l: Positive for confusion. OBJECTIVE BP 101/65 Pulse [...] dry. Capillary Refill: Capillary refill takes less dar (more content not included)... Normal [facility] CNPNon 08-25-2023 CNPN Telephone (NAVWST) DARIELSTEVE ([id number]) 1945 F Date Time Provider Department 08/25/23 SHERWIN CHE During your visit today, we recorded the following information about you: Sherwin Che, MARINE PHOTOGRAPHER 08/25/2023 1:20 PM [facility]igned [facility] has made 2 crisis visits. Does not have a single support person in the [facility]. Dog had been removed from patient care, due to living conditions. Walks everywhere she needs to go. Does not drive. TREVA Wang Brooke notes was there at the same time. TREVA Wang was there and provided patient with meals. Patient told Lesli Dong that she did not like those meals. Wanted Pili Ledbetter. Letitia notes that she has now discharged patient from their [facility] services. Lesli Dong also notes that they are not allowed to accept patient back. LESLI Dong notes son Salomón Lott-Lives in [place] ph. [phone]. Sherwin Che, MARINE PHOTOGRAPHER 08/25/2023 1:32 PM Signed Lesli spoke with Caio Wang JFS, APS and she notes that if Dr. Ellis feels like patient is in need of guardian Felipe would need statement of expert eval for guardianship. TREVA Wang notes that she is not able to move further with helping patient without statement of expert of eval. This Sw noted she will send note to MILLA Beckford and or Dr. Ellis to address this for further assistance. Orin Sosa APRN.MELISSA 08/25/2023 2:02 PM Signed I don't mind completing an expert eval statement but I would like to talk with her son first to discuss the situation with him. I will reach out to her son this afternoon. Orin Sosa APRN.C T TECH 08/25/2023 4:01 PM Signed I called and spoke with patient's son Salomón, we discussed the concerns from her visit today. He voiced agreement that she should not be living on her own. He stated that no POA paperwork has been done because the patient did not want to do the paperwork when he was visiting last summer from [place]. At this point we did agree that she needs help making decisions and he has noticed a progressive decline in her cognition with their routine phone conversations. I am willing to do the expert eval statement since I saw her today, typically there is a form for this, can we try and get this or work with APS to get things in motion for guardianship? Salomón did state that when appointing guardianship he is more than willing to take on this role for his mother. Sherwin Che, OSITO 08/26/2023 8:34 AM Signed Lesli located statement of expert evaluation on [facility] website. Lesli will check with APS and see if [facility] [employer] [facility] is able to complete evaluation or if Dr. Ellis needs to complete. Sherwin Che, MARINE PHOTOGRAPHER 08/26/2023 10:21 AM Signed Lesli spoke with TREVA Wang and she notes that [employer] are not able to complete expert evaluation forms for guardianship. Those have to be completed by MD's. Lesli will see what Dr. Ellis has to say about completing expert evaluation form. Sherwin Che, OSITO 08/27/2023 11:04 AM Signed Lesli placed Statement of Expert Evaluation forms on [facility] desk to complete with Dr. Ellis. Orin Sosa APRN.MELISSA 08/29/2023 2:44 PM Signed Sherwin, we have completed this, do you plan to reach back out to APS or do I need to contact them? Sherwin Che, MARINE PHOTOGRAPHER 08/29/2023 3:05 PM Signed You could call TREVA Wang ph. [phone] and let her know you have completed and where she would like you to send forms. That way if she has any questions in regards to forms, you would be able to answer them. Orin Sosa APRN.C T TECH 08/29/2023 3:35 PM Signed Called and spoke with Felipe with APS to update, we are sending a copy of the expert evaluation via fax today (send to [phone]) and via mail. Discussed that son, Salomón, is willing to assume guardianship and she will include that with the application for guardianship. Sherwin Che, OSITO 08/29/2023 4:28 PM Signed Is there anything further you would like Sw to assist with regarding this note, or can we close note? Orin Sosa APRN.C T TECH 08/29/2023 4:30 PM Signed I will close it. Allergies As of Date: 08/25/2023 Noted Allergy Reaction CONTRAST DYE 06/02/2014 8 [...] after taking 12.5mg of meclizine Date Reviewed: 08/25/2023 Reviewed by: Augusto Ross Ma - Fully Assessed Reason for Visit: Patient Update [1234] Patient Question [6517] Prescriptions as of 08/29/2023 - levothyroxine (SYNTHROID) 25 mcg tablet Take 1 tablet by mouth every Friday,Friday, ay. Take on empty stomach. For thyroid. Add to the levothyroxine 50 mcg once daily dosing but j (more content not included)... Normal [facility] Comprehensive metabolic 2000 panelon 08-25-2023 Albumin [Mass/Vol] 4.0 g/dL Normal 3.9-4.9 [facility] Comment on above: Order Comment: Speci men Type: BLOOD SPECIMENOrdering Facility: [facility] Address: [address] [place] [address] Performed By: #### 3 802-0, 3024-7, 11094-4, 40643-4 ####[facility] LABCLIA [id number] [place] [address] [place] ALP [Catalytic activity/Vol] 334 U/L High 34-123 [facility] Comment on above: Order Comment: Speci men Type: BLOOD SPECIMENOrdering Facility: [facility] Address: [address] [place] [address] Performed By: #### 3 051-0, 3024-7, 27124-5, 66287-2 ####[facility] LABCLIA [id number] [place] [address] [place] ALT [Catalytic activity/Vol] 68 U/L High 7-38 [facility] Comment on above: Order Comment: Speci men Type: BLOOD SPECIMENOrdering Facility: [facility] Address: [address] [place] [address] Performed By: #### 3 051-0, 3024-7, 55525-8, 59611-6 ####[facility] LABCLIA [id number] [place] [address] [place] Anion gap [Moles/Vol] 12 mmol/L Normal 9-18 [facility] Comment on above: Order Comment: Speci men Type: BLOOD SPECIMENOrdering Facility: [facility] Address: [address] [place] [address] Performed By: #### 3 051-0, 3024-7, 56241-4, 44965-9 ####[facility] LABCLIA [id number] [place] [address] [place] AST [Catalytic activity/Vol] 100 U/L High 13-35 [facility] Comment on above: Order Comment: Speci men Type: BLOOD SPECIMENOrdering Facility: [facility] Address: [address] [place] [address] Performed By: #### 3 051-0, 302-7, 35205-1, 39814-9 ####[facility] LABCLIA [id number] [address] [address] [place] Bilirubin [Mass/Vol] 0.6 mg/dL Normal 0.2-1.3 [facility] Comment on above: Order Comment: Speci men Type: BLOOD SPECIMENOrdering Facility: [facility] Address: [address] [place] [address] Performed By: #### 3 051-0, 302-7, 42237-7, 01089-8 ####[facility] LABCLIA [id number] [place] [id number] [place] Calcium [Mass/Vol] 10.0 mg/dL Normal 8.5-10.2 [facility] Comment on above: Order Comment: Speci men Type: BLOOD SPECIMENOrdering Facility: [facility] Address: [address] [place] [address] Performed By: #### 3 051-0, 302-7, 71365-1, 39442-6 ####[facility] LABIA [id number] [place] [id number] [place] Chloride [Moles/Vol] 100 mmol/L Normal 97-105 [facility] Comment on above: Order Comment: Speci men Type: BLOOD SPECIMENOrdering Facility: [facility] Address: [address] [place] [address] Performed By: #### 3 051-0, 302-7, 59106-0, 16430-8 ####[facility] LABCLIA [id number] [place] [id number] [place] CO2 [Moles/Vol] 23 mmol/L Normal 22-30 [facility] Comment on above: Order Comment: Speci men Type: BLOOD SPECIMENOrdering Facility: [facility] Address: [address] [place] [address] Performed By: #### 3 051-0, 3024-7, 55989-9, 74727-4 ####[facility] LABIA [id number] [place] [id number] [place] Creatinine [Mass/Vol] 0.59 mg/dL Normal 0.58-0.96 [facility] Comment on above: Order Comment: Speci men Type: BLOOD SPECIMENOrdering Facility: [facility] Address: [address] [place] [address] Performed By: #### 3 051-0, 4-7, 11596-0, 95637-0 ####[facility] [id number] [place] [address] [place] Creatinine and Glomerular filtration rate.predicted panel (S/P/Bld) 91 mL/min/1.73m??? Normal >=60 [facility] Comment on above: Order Comment: Sudhakar mera Type: BLOOD SPECIMENOrdering Facility: [facility] Address: [address] [place] [address] Result Comment: Audra mated Glomerular Filtration Rate (eGFR) is calculated using the 2020 CKD-EPI creatinine equation. This equation utilizes serum creatinine, sex, and age as parameters. The creatinine assay has traceable calibration to isotope dilution-mass spectrometry. Refer to KDIGO guidelines for clinical interpretation. In patients with unstable renal function, e.g. those with acute kidney injury, the eGFR may not accurately reflect actual GFR. Performed By: #### 3 051-0, 3024-7, 23507-7, 52303-4 ####[facility] LABIA [id number] [place] [id number] [place] Glucose [Mass/Vol] 312 mg/dL High 74-99 [facility] Comment on above: Order Comment: Dennyi samaria Type: BLOOD SPECIMENOrdering Facility: [facility] Address: [address] [place] [address] Result Comment: The [place] Diabetes Association (ADA) provides guidance for cutoff values for fasting glucose and random glucose. The ADA defines fasting as no caloric intake for at least 8 hours. Fasting plasma glucose results between 100 to 125 mg/dL indicate increased risk for diabetes (prediabetes). Fasting plasma glucose results greater than or equal to 126 mg/dL meet the criteria for diagnosis of diabetes. In the absence of unequivocal hyperglycemia, results should be confirmed by repeat testing. In a patient with classic symptoms of hyperglycemia or hyperglycemic crisis, random plasma glucose results greater than or equal to 200 mg/dL meet the criteria for diagnosis of diabetes. Reference: Standards of Medical Care in Diabetes 2016, [place] Diabetes Association. Diabetes Care. 2016.39(Suppl 1). Performed By: #### 3 051-0, 3024-7, 14310-9, 61855-5 ####[facility] LABIA [id number] [place] [address] [place] Potassium [Moles/Vol] 5.1 mmol/L Normal 3.7-5.1 [facility] Comment on above: Order Comment: Speci men Type: BLOOD SPECIMENOrdering Facility: [facility] Address: [address] [place] [address] Performed By: #### 3 051-0, 3024-7, 50982-6, 73868-1 ####[facility] [id number] [place] [address] [place] Protein [Mass/Vol] 7.3 g/dL Normal 6.3-8.0 [facility] Comment on above: Order Comment: Dennyi samaria Type: BLOOD SPECIMENOrdering Facility: [facility] Address: [address] [place] [address] Performed By: #### 3 051-0, 3024-7, 77957-6, 53217-8 ####[facility] LABIA [id number] [place] [id number] [place] Sodium [Moles/Vol] 135 mmol/L Low 136-144 [facility] Comment on above: Order Comment: Speci men Type: BLOOD SPECIMENOrdering Facility: [facility] Address: [address] [place] [address] Performed By: #### 3 051-0, 3024-7, 88364-8, 15547-1 ####[facility] LABCLIA [id number] [place] [address] [place] Urea nitrogen [Mass/Vol] 23 mg/dL High 7-21 [facility] Comment on above: Order Comment: Speci men Type: BLOOD SPECIMENOrdering Facility: [facility] Address: [address] [place] [address] Performed By: #### 3 051-0, 3024-7, 09995-2, 49742-0 ####[facility] LABCLIA [id number] [place] [address] [place] HbA1c (Bld)on 08-25-2023 Average glucose Estimated from glycated hemoglobin (Bld) [Mass/Vol] 266 mg/dL Normal [facility] Comment on above: Order Comment: Sudhakar [facility] Type: BLOOD SPECIMENOrdering Facility: [facility] Address: [address] [place] [address] Result Comment: eAG: (Estimated average glucose) is a calculated value from HgbA1c and is wire rope sales representative of the average blood glucose level in the last 2-3 month period. Performed By: #### 5 5454-3 ####[facility] LABCLIA [id number] [place] [address] [place] HbA1c (Bld) [Mass fraction] 10.9 % High 4.3-5.6 [facility] Comment on above: Order Comment: Dennyi [facility] Type: BLOOD SPECIMENOrdering Facility: [facility] Address: [address] [place] [address] Result Comment: [place] Diabetes Association guidelines indicate that patients with HgbA1c in the range 5.7-6.4% are at increased risk for development of diabetes, and intervention by lifestyle modification may be beneficial. HgbA1c greater or equal to 6.5% is considered diagnostic of diabetes. Performed By: #### 5 5454-3 ####[facility] LABCLIA [id number] [address] [address] [place] Iron and Iron binding capaci ty panelon 08-25-2023 Iron [Mass/Vol] 118 ug/dL Normal 41-186 [facility] Comment on above: Order Comment: Speci men Type: BLOOD SPECIMENOrdering Facility: [facility] Address: [address] [place] [address] Performed By: #### 3 051-0, 3024-7, 67680-9, 60467-9 ####[facility] LABCLIA [id number] [place] [address] [place] Iron binding capacity [Mass/Vol] 427 ug/dL High 232-386 [facility] Comment on above: Order Comment: Speci men Type: BLOOD SPECIMENOrdering Facility: [facility] Address: [address] [place] [address] Performed By: #### 3 051-0, 3024-7, 76354-2, 65785-8 ####[facility] LABIA [id number] [place] [address] [place] Iron/TIBC [Molar ratio] 27.6 % Normal 15.0-57.0 [facility] Comment on above: Order Comment: Speci men Type: BLOOD SPECIMENOrdering Facility: [facility] Address: [address] [place] [address] Performed By: #### 3 051-0, 3024-7, 81603-1, 49423-5 ####[facility] LABIA [id number] [place] [id number] [place] Magnesium SerPl-mCncon 08-25 Magnesium [Mass/Vol] 2.1 mg/dL Normal 1.7-2.3 [facility] Comment on above: Order Comment: Speci men Type: BLOOD SPECIMENOrdering Facility: [facility] Address: [address] [place] [address] Performed By: #### 2 132-9, 3016-3, 68335-5 ####[facility] LABCLIA [id number] [place] [id number] [place] T3Free SerPl-mCncon 08-25-19 24 Free T3 [Mass/Vol] 2.7 pg/mL Normal 2.3-4.1 [facility] Comment on above: Order Comment: Speci men Type: BLOOD SPECIMENOrdering Facility: [facility] Address: [address] [place] [address] Performed By: #### 3 051-0, 3024-7, 94820-2, 36801-5 ####[facility] LABIA [id number] [place] [address] [place] T4 Free SerPl-mCncon 024 Free T4 [Mass/Vol] 1.1 ng/dL Normal 0.9-1.7 [facility] Comment on above: Order Comment: Speci men Type: BLOOD SPECIMENOrdering Facility: [facility] Address: [address] [place] [address] Performed By: #### 3 051-0, 3024-7, 34531-8, 09779-8 ####[facility] LABIA [id number] [place] [address] [place] TSH SerPl-aCncon 08-25-2023 TSH Qn 4.540 m[IU]/L High 0.270-4.200 [facility] Comment on above: Order Comment: Speci men Type: BLOOD SPECIMENOrdering Facility: [facility] Address: [address] [place] [address] Performed By: #### 2 132-9, 3016-3, ####[facility] LABIA [id number] [place] [address] [place] Vit B12 SerPl-mCncon 024 Cobalamin (Vitamin B12) [Mass/Vol] 456 pg/mL Normal 232-1245 [facility] Comment on above: Order Comment: Speci men Type: BLOOD SPECIMENOrdering Facility: [facility] Address: [address] [place] [address] Performed By: #### 2 132-9, 3016-3, 45793-6 ####[facility] LABCLIA [id number] [address] [address] [place] Thin prep Papanicolaou smear with manual screeningOrdered By: Carl Couch on 08-16-2023 Thin prep Papanicolaou smear with manual screening 361 mg/dL 74-106 [facility] Comment on above: MANAGEMENT OF PATIEN T CARE PER NURSING PROTOCOL Absolute lymphocyte countOrd ered By: Mitzy Perez on 08-15-2023 Lymphocytes Auto (Unsp spec) [#/Vol] 0.83 10*3/uL 0.83-4.51 [facility] Automated lymphocyte count a s percentage of total leukocytesOrdered By: Mitzy Perez on 08-15-2023 Lymphocytes/100 WBC Auto (Unsp spec) 18.4 % 19-41 [facility] Basophil percentageOrdered B y: Mitzy Perez on 08-15-2023 Basophil percentage 2.6 mg/dL 2.5-4.9 [facility] Basophils/100 WBC (Bld) 0.7 % 0-1 [facility] Bilirubin [Mass/Vol] 0.70 mg/dL 0.20-1.00 [facility] Comment on above: For patients on eltr ombopag therapy, use of Dimension [place] TBIL is not recommended. Chloride [Moles/Vol] 102 mmol/L 98-107 [facility] Eosinophils/100 WBC (Bld) 1.5 % 0-5 [facility] Glucose [Mass/Vol] 344 mg/dL 74-106 [facility] Comment on above: Glucose result great er than or equal to 200 mg/dLsuggests DIABETES MELLITUS per A.D.A. criteria. Hemoglobin (Bld) [Mass/Vol] 9.6 g/dL 12.0-15.0 [facility] Monocytes/100 WBC (Bld) 6.9 % 0-10 [facility] Neutrophils (Bld) [#/Vol] 3.2 10*3/uL 2.0-7.7 [facility] Neutrophils/100 WBC (Bld) 71.6 % 47-70 [facility] Potassium [Moles/Vol] 3.7 mmol/L 3.5-5.1 [facility] Protein [Mass/Vol] 6.2 g/dL 6.4-8.2 [facility] Sodium [Moles/Vol] 134 mmol/L 136-145 [facility] WBC (Bld) [#/Vol] 4.5 10*3/uL 4.4-11.0 [facility] Basophil percentageOrdered B y: Lola Marquez on 08-15-2023 Chloride [Moles/Vol] 101 mmol/L 98-107 [facility] Glucose [Mass/Vol] 681 mg/dL 74-106 [facility] Comment on above: Critical Result(s) C alled at: 00:43:24 08/15/2023 by: Debra Sutton. Results read back by same.Glucose result greater than or equal to 200 mg/dLsuggests DIABETES MELLITUS per A.D.A. criteria. Potassium [Moles/Vol] 4.6 mmol/L 3.5-5.1 [facility] Sodium [Moles/Vol] 135 mmol/L 136-145 [facility] Determination of erythrocyte mean corpuscular volume (MCV)Ordered By: Mitzy Perez on 08-15-2023 MCV (RBC) [Entitic vol] 84.0 fL 81-99 [facility] Erythrocyte distribution wid th ratioOrdered By: Mitzy Perez on 08-15-2023 Erythrocyte distribution width (RBC) [Ratio] 19.0 % 11.6-14.6 [facility] Erythrocyte distribution wid th standard deviationOrdered By: Mitzy Perez on 08-15-2023 Erythrocyte distribution width (RBC) [Entitic vol] 57.0 fL 35.1-43.9 [facility] Hematocrit Auto (Bld) [Volum e fraction]Ordered By: Mitzy Perez on 08-15-2023 Hematocrit (Bld) [Volume fraction] 31.6 % 37-47 [facility] Immature granulocytes/100 WB C Auto (Bld)Ordered By: Mitzy Perez on 08-15-2023 Immature granulocytes/100 WBC (Bld) 0.900 % 0.0-0.9 [facility] Comment on above: IG% - Immature Granu locytes (promyelocytes, myelocytes and metamyelocytes) > 1% indicates that a LEFT SHIFT is Present. Laboratory - Chemistry and C hemistry - challengeOrdered By: Mitzy Perez on 08-15-2023 Albumin/Globulin [Mass ratio] 0.7 {ratio} 0.9-2.4 [facility] ALP [Catalytic activity/Vol] 273 U/L 45-117 [facility] ALT [Catalytic activity/Vol] 91 U/L 13-56 [facility] CO2 [Moles/Vol] 28.0 mmol/L 21.0-32.0 [facility] Globulin (S) [Mass/Vol] 3.6 g/dL 2.2-4.2 [facility] Magnesium [Mass/Vol] 1.9 mg/dL 1.6-2.6 [facility] Urea nitrogen/Creatinine [Mass ratio] 31.3 mg/mg 10- [facility] Laboratory - Chemistry and C hemistry - challengeOrdered By: Lola Marquez on 08-15-2023 CO2 [Moles/Vol] 27.0 mmol/L 21.0-32.0 [facility] Urea nitrogen/Creatinine [Mass ratio] 27.0 mg/mg 10- [facility] Laboratory - Hematology and Cell countsOrdered By: Mitzy Perez on 08-15-2023 MCH (RBC) [Entitic mass] 25.5 pg 27.0-32.0 [facility] MCHC (RBC) [Mass/Vol] 30.4 g/dL 32-36 [facility] Nucleated RBC/100 WBC (Bld) [Ratio] 0 % 0-5 [facility] Platelet mean volume (Bld) [Entitic vol] 11.7 fL 6.2-12.0 [facility] Platelets (Bld) [#/Vol] 144 10*3/uL 150-450 [facility] No Panel InformationOrdered By: Mitzy Perez on 08-15-2023 Estimated Creatinine Clearance Calc 46.31 ml/min [facility] Estimated GFR (MDRD) Amer 103 mL/min >60 [facility] Comment on above: GFR Calc Estimated GFR (MDRD) Non-Af Amer 85 mL/min >60 [facility] Comment on above: Non- GFR Calc No Panel InformationOrdered By: Lola Marquez on 08-15-2023 Estimated Creatinine Clearance Calc 42.48 ml/min [facility] Estimated GFR (MDRD) Amer 79 mL/min >60 [facility] Comment on above: GFR Calc Estimated GFR (MDRD) Non-Af Amer 65 mL/min >60 [facility] Comment on above: Non- GFR Calc Troponin I High Sensitivity 8 pg/mL 3.0-54.0 [facility] Comment on above: Please Note: New Bee t Units and Gender Specific Reference Ranges. For more information see Policy Stat Procedure [place] High Sensitivity Troponin (TNIH) and attachments. RBC Auto (Bld) [#/Vol]Ordere d By: Mitzy Perez on 08-15-2023 RBC (Bld) [#/Vol] 3.76 10*6/uL 4.2-5.4 [facility] Serum or plasma calcium sonu urement (mass/volume)Ordered By: Mitzy Perez on 08-15-2023 Calcium [Mass/Vol] 8.9 mg/dL 8.5-10.1 [facility] Serum or plasma calcium sonu urement (mass/volume)Ordered By: Lola Marquez on 08-15-2023 Calcium [Mass/Vol] 10.1 mg/dL 8.5-10.1 [facility] Serum or plasma creatinine m easurement (mass/volume)Ordered By: Mitzy Perez on 08-15-2023 Creatinine [Mass/Vol] 0.70 mg/dL 0.55-1.02 [facility] Comment on above: The validity of the calculated GFR & GFRAA in patients over 70 years has not been determined. Clinical correlation is essential. Serum or plasma creatinine m easurement (mass/volume)Ordered By: Lola Marquez on 08-15-2023 Creatinine [Mass/Vol] 0.89 mg/dL 0.55-1.02 [facility] Comment on above: The validity of the calculated GFR & GFRAA in patients over 70 years has not been determined. Clinical correlation is essential. Serum or plasma thyroid stim ulating hormone (TSH) measurement (units/volume)Ordered By: Mitzy Perez on 08-15-2023 TSH Qn 4.32 uIU/mL 0.358-3.74 [facility] Serum or plasma urea nitroge n measurement (mass/volume)Ordered By: Mitzy Perez on 08-15-2023 Urea nitrogen [Mass/Vol] 22 mg/dL 01-14 [facility] Serum or plasma urea nitroge n measurement (mass/volume)Ordered By: Lola Maqruez on 08-15-2023 Urea nitrogen [Mass/Vol] 24 mg/dL - [facility] Thin prep Papanicolaou smear with manual screeningOrdered By: Mitzy Perez on 08-15-2023 Thin prep Papanicolaou smear with manual screening 2.6 g/dL 3.2-5.0 [facility] Thin prep Papanicolaou smear with manual screening 102 U/L 15-37 [facility] Thin prep Papanicolaou smear with manual screening 4 11-11 [facility] Thin prep Papanicolaou smear with manual screening > 500 mg/dL 74-106 [facility] Comment on above: Dr Earle ZAVALA OF PATIENT CARE PER NURSING PROTOCOL Thin prep Papanicolaou smear with manual screeningOrdered By: Lola Marquez on 08-15-2023 Thin prep Papanicolaou smear with manual screening 7 - [facility] Whole blood hemoglobin A1c/t otal hemoglobin ratio (mass fraction)Ordered By: Carl Couch on 08-15-2023 HbA1c (Bld) [Mass fraction] 11.7 % 3.8-5.6 [facility] Comment on above: Normal < 5.7 % Predi abetic 5.7 - 6.4 % Diabetic >or= 6.5 % Please note range changes. Absolute lymphocyte countOrd ered By: Lola Marquez on 08-14-2023 Lymphocytes Auto (Unsp spec) [#/Vol] 0.75 10*3/uL 0.83-4.51 [facility] Automated lymphocyte count a s percentage of total leukocytesOrdered By: Lola Marquez on 08-14-2023 Lymphocytes/100 WBC Auto (Unsp spec) 17.4 % 19-41 [facility] Basophil percentageOrdered B y: Lola Marquez on 08-14-2023 Basophil percentage 25-50 SEEN /hpf 0-5 [facility] Basophils/100 WBC (Bld) 0.5 % 0-1 [facility] Eosinophils/100 WBC (Bld) 1.4 % 0-5 [facility] Hemoglobin (Bld) [Mass/Vol] 10.7 g/dL 12.0-15.0 [facility] Monocytes/100 WBC (Bld) 10.7 % 0-10 [facility] Neutrophils (Bld) [#/Vol] 3.0 10*3/uL 2.0-7.7 [facility] Neutrophils/100 WBC (Bld) 69.3 % 47-70 [facility] WBC (Bld) [#/Vol] 4.3 10*3/uL 4.4-11.0 [facility] Bilirubin Test strip Ql (U)O rdered By: Lola Marquez on 08-14-2023 Bilirubin Ql (U) Negative Negative [facility] CNPNon 08-14-2023 CNPN Telephone (INTMWS) STEVE VIEIRA ([id number]) 1945 F Date Time Provider Department 08/14/23 PETER ELLIS INTMWS During your visit today, we recorded the following information about you: Melina Keys, RN 08/14/2023 12:13 PM Signed Letitia BALLESTEROS from [facility] calls and states that she was out to see patient today for 3 hours. Letitia reports that patient is not safe to at home but is refusing to go to detention. Letitia reports that living conditions are unlivable. [...] help patient further. Please review and advise, SHANNON Eric Terri, TIERRA.GEOTHERMAL OPERATING ENGINEER 08/14/2023 3:00 PM Signed OK for SW. If she currently ill and needing to return to the hospital? If so recommend, may be able to transition to SNF from hospital. Sharon Mayer RN 08/14/2023 3:24 PM Signed Letitia BALLESTEROS from [facility] called and is notified of providers message and instructions. She voices understanding. Sharon Mayer RN Allergies As of Date: 08/14/2023 Noted Allergy Reaction CONTRAST DYE 06/02/2014 8 [...] LPN - Fully Assessed Reason for Visit: [facility]ES[facility] Update [Other] Prescriptions as of 08/14/2023 - levothyroxine (SYNTHROID) 25 mcg tablet Take 1 tablet by mouth every Friday,Friday, ay. Take on empty stomach. For thyroid. Add [...] by mouth daily with breakfast. Gets through [employer] PAP. - ferrous sulfate 325 mg (65 mg iron) tablet Take 325 mg by mouth once daily. - blood sugar diagnostic (BLOOD GLUCOSE TEST) test strip Test blood sugar(s) 2 times daily. Dx: Type 2 DM - Controlled E11.9 Insulin: No - Lancets lancets Test blood sugar(s) 2 daily. Dx: E11.9 Insulin: No Problem List As Of Date 08/14/2023 Noted Resolved DIABETES MELLITUS TYPE II-UNCOMPL [E11.9] [...] B12 deficiency [E53.8] 08/13/2021 Encounter Status:Closed by SHARON MAYER on 08/14/23 Normal [facility] Culture, urineOrdered By: Ginger Marquez on 08-14-2023 Bacteria identified Cx Nom (U) Klebsiella pneumoniae sp pneum [facility] Determination of erythrocyte mean corpuscular volume (MCV)Ordered By: Lola Marquez on 08-14-2023 MCV (RBC) [Entitic vol] 84.2 fL 81-99 [facility] Erythrocyte distribution wid th ratioOrdered By: Lola Marquez on 08-14-2023 Erythrocyte distribution width (RBC) [Ratio] 19.8 % 11.6-14.6 [facility] Erythrocyte distribution wid th standard deviationOrdered By: Lola Marquez on 08-14-2023 Erythrocyte distribution width (RBC) [Entitic vol] 58.6 fL 35.1-43.9 [facility] Hematocrit Auto (Bld) [Volum e fraction]Ordered By: Lola Marquez on 08-14-2023 Hematocrit (Bld) [Volume fraction] 36.9 % 37-47 [facility] Immature granulocytes/100 WB C Auto (Bld)Ordered By: Lola Marquez on 08-14-2023 Immature granulocytes/100 WBC (Bld) 0.700 % 0.0-0.9 [facility] Comment on above: IG% - Immature Granu locytes (promyelocytes, myelocytes and metamyelocytes) > 1% indicates that a LEFT SHIFT is Present. Ketones Test strip Ql (U)Ord ered By: Lola Marquez on 08-14-2023 Ketones Ql (U) 5 mg/dl Negative [facility] Laboratory - Hematology and Cell countsOrdered By: Lola Marquez on 08-14-2023 MCH (RBC) [Entitic mass] 24.4 pg 27.0-32.0 [facility] MCHC (RBC) [Mass/Vol] 29.0 g/dL 32-36 [facility] Comment on above: Delta: 27.5 on 08/11-0518 Nucleated RBC/100 WBC (Bld) [Ratio] 0 % 0-5 [facility] Platelet mean volume (Bld) [Entitic vol] 11.7 fL 6.2-12.0 [facility] Platelets (Bld) [#/Vol] 135 10*3/uL 150-450 [facility] Mucus LM Ql (Urine sed)Order ed By: Lola Marquez on 08-14-2023 Mucus Ql (Urine sed) 0 SEEN /hpf [facility] Nitrite Test strip Ql (U)Ord ered By: Lola Marquez on 08-14-2023 Nitrite Ql (U) Negative Negative [facility] No Panel InformationOrdered By: Lola Marquez on 08-14-2023 Urine RBC 5-10 SEEN /hpf 0-5 [facility] Protein Test strip Ql (U)Ord ered By: Lola Marquez on 08-14-2023 Protein Ql (U) Negative Negative [facility] RBC Auto (Bld) [#/Vol]Ordere d By: Lola Marquez on 08-14-2023 RBC (Bld) [#/Vol] 4.38 10*6/uL 4.2-5.4 [facility] Squamous epithelial cells de tection in urine sediment by light microscopyOrdered By: Lola Marquez on 08-14-2023 Epithelial cells.squamous LM Ql (Urine sed) 0 SEEN /hpf 5-10 [facility] Transitional cells detection in urine sediment by light microscopyOrdered By: Lola Marquez on 08-14-2023 Transitional cells LM Ql (Urine sed) 0 SEEN /hpf 0-5 [facility] Urine blood detectionOrdered By: Lola Marquez on 08-14-2023 RBC Ql (U) 250 /ul Negative [facility] Urine clarityOrdered By: Lesa Marquez on 08-14-2023 Clarity (U) Sl. Cloudy Clear [facility] Urine color determinationOrd ered By: Lola Marquez on 08-14-2023 Color (U) Yellow Yellow [facility] Urine glucose detectionOrder ed By: Lola Marquez on 08-14-2023 Glucose Ql (U) 1000 mg/dl Normal [facility] Urine leukocyte esterase det ection by dipstickOrdered By: Lola Marquez on 08-14-2023 Leukocyte esterase Test strip Ql (U) 100 /ul Negative [facility] Urine pHOrdered By: Lola sneed on 08-14-2023 pH (U) 7.0 [pH] 5.0 - 8.0 [facility] Urine sediment bacteria coun t by microscopy (number/high power field)Ordered By: Lola Marquez on 08-14-2023 Bacteria LM.HPF (Urine sed) [#/Area] 1 /[HPF] None Seen [facility] Urine sediment renal epithel ial cell count by microscopy (number/high power field)Ordered By: Lola Marquez on 08-14-2023 Epithelial cells.renal LM.HPF (Urine sed) [#/Area] 0 /[HPF] 0-5 [facility] Urine specific gravity measu rementOrdered By: Lola Marquez on 08-14-2023 Specific gravity (U) [Rel density] 1.010 1.002-1.030 [facility] Urine urobilinogen measureme ntOrdered By: Lola Marquez on 08-14-2023 Urobilinogen Ql (U) Normal mg/dl Normal [facility] CNPNon 08-13-2023 CNP Telephone (INTMWS) STEVE VIEIRA ([id number]) 1945 F Date Time Provider Department 08/13/23 PETER ELLIS INTWS During your visit today, we recorded the following information about you: Rich Richmond LPN 08/13/2023 3:19 PM Signed Cristin with [facility] calling to let you know did start [...] pt to get hospital FU apt booked. ROSELIA Govea Terri, APRN.GEOTHERMAL OPERATING ENGINEER 08/14/2023 9:36 AM Signed [facility] for home health care. She should follow medication orders from discharge of the hospital, aspirin does appear to be on the discharge medication orders. Why is home health care asking about 81 mg aspirin? Please schedule hospital discharge follow-up visit Marimar Shields LPN 08/14/2023 10:41 AM Signed Attempted to contact Cristin [facility] but no answer. Left providers message and asked about aspirin. Ask Cristin to call office and ask to speak to a nurse regarding aspirin. Rich Richmond LPN 08/15/2023 9:15 AM Signed Spoke with Cristin and pt was discharged on Aspirin. Pt is back in the hospital per Cristin. Rich Richmond LPN Allergies As of Date: 08/13/2023 Noted Allergy [...] LPN - Fully Assessed Reason for Visit: [facility], verbal order [Other] Prescriptions as of 08/15/2023 - levothyroxine (SYNTHROID) 25 mcg tablet Take 1 tablet by mouth every Friday,Friday, ay. Take on empty stomach. For thyroid. Add [...] by mouth daily with breakfast. Gets through [employer] PAP. - ferrous sulfate 325 mg [...] B12 deficiency [E53.8] 08/13/2021 Encounter Status:Closed by RICH RICHMOND on 08/15/23 [facility] Basophil percentageOrdered B y: Wes Alva on 08-12-2023 Hemoglobin (Bld) [Mass/Vol] 9.9 g/dL 12.0-15.0 [facility] Hematocrit Auto (Bld) [Volum e fraction]Ordered By: Wes Alva on 08-12-2023 Hematocrit (Bld) [Volume fraction] 33.7 % 37-47 [facility] Thin prep Papanicolaou smear with manual screeningOrdered By: Wes Alva on 08-12-2023 Thin prep Papanicolaou smear with manual screening 312 mg/dL 74-106 [facility] Comment on above: MANAGEMENT OF PATIEN T CARE PER NURSING PROTOCOL Absolute lymphocyte countOrd ered By: Mitzy Strauss on 08-11-2023 Lymphocytes Auto (Unsp spec) [#/Vol] 0.99 10*3/uL 0.83-4.51 [facility] Automated lymphocyte count a s percentage of total leukocytesOrdered By: Mitzy Strauss on 08-11-2023 Lymphocytes/100 WBC Auto (Unsp spec) 20.9 % 19-41 [facility] Basophil percentageOrdered B y: Mitzy Strauss on 08-11-2023 Basophils/100 WBC (Bld) 0.4 % 0-1 [facility] Chloride [Moles/Vol] 109 mmol/L 98-107 [facility] Eosinophils/100 WBC (Bld) 1.7 % 0-5 [facility] Glucose [Mass/Vol] 269 mg/dL 74-106 [facility] Comment on above: Glucose result great er than or equal to 200 mg/dLsuggests DIABETES MELLITUS per A.D.A. criteria. Monocytes/100 WBC (Bld) 8.9 % 0-10 [facility] Neutrophils (Bld) [#/Vol] 3.2 10*3/uL 2.0-7.7 [facility] Neutrophils/100 WBC (Bld) 66.6 % 47-70 [facility] Potassium [Moles/Vol] 3.6 mmol/L 3.5-5.1 [facility] Sodium [Moles/Vol] 139 mmol/L 136-145 [facility] WBC (Bld) [#/Vol] 4.7 10*3/uL 4.4-11.0 [facility] 08-11-2023 [facility] Telephone (FAMPWS) DARIELSTEVE ([id number]) 1945 F Date Time Provider Department 08/11/23 PETER ELLIS [facility] During your visit today, we recorded the following information about you: Alta Ortiz LPN 08/11/2023 12:51 PM Signed Liberty with [facility] calls to report pt is going to be discharged from [facility] today with orders for Nursing, PT, and OT. Liberty is requesting a VO from provider that pcp will follow pt while in HH. ROSELIA Jeter Liza D, MD 08/11/2023 7:47 PM Signed Below noted May give verbal orders Make sure have up to date discharge summary and medication list gets reconciled. Yesenia Yarbrough Cma 08/12/2023 8:55 AM Signed Liberty notified and verbalized understanding Yesenia Yarbrough Cma Allergies As of Date: 08/11/2023 Noted Allergy Reaction CONTRAST DYE 06/02/2014 8 [...] LPN - Fully Assessed Reason for Visit: HH Verbal orders [Other] Prescriptions as of 08/12/2023 - levothyroxine (SYNTHROID) 25 mcg tablet Take 1 tablet by mouth every Friday,Friday, ay. Take on empty stomach. For thyroid. Add to the levothyroxine 50 mcg once daily dosing but just on Mon-Fri-Fri - metFORMIN ER (GLUCOPHAGE XR) 500 mg [...] subcutaneously one time a week. Gets through [employer] PAP. - empagliflozin (JARDIANCE) 25 mg tablet Take 1 tablet by mouth daily with breakfast. Gets through [employer] PAP. - ferrous sulfate 325 mg (65 mg iron) tablet Take 325 mg by mouth once daily. - blood sugar diagnostic (BLOOD GLUCOSE TEST) test strip Test blood sugar(s) 2 times daily. Dx: Type 2 DM - Controlled E11.9 Insulin: No - Lancets lancets Test blood sugar(s) 2 daily. Dx: E11.9 Insulin: No Problem List As Of Date 08/11/2023 Noted Resolved DIABETES MELLITUS TYPE II-UNCOMPL [E11.9] [...] B12 deficiency [E53.8] 08/13/2021 Encounter Status:Closed by YESENIA YARBROUGH CMA on 08/12/23 Normal [facility] Determination of erythrocyte mean corpuscular volume (MCV)Ordered By: Mitzy Strauss on 08-11-2023 MCV (RBC) [Entitic vol] 82.3 fL 81-99 [facility] Erythrocyte distribution wid th ratioOrdered By: Mitzy Strauss on 08-11-2023 Erythrocyte distribution width (RBC) [Ratio] 18.8 % 11.6-14.6 [facility] Erythrocyte distribution wid th standard deviationOrdered By: Mitzy Strauss on 08-11-2023 Erythrocyte distribution width (RBC) [Entitic vol] 53.3 fL 35.1-43.9 [facility] Immature granulocytes/100 WB C Auto (Bld)Ordered By: iMtzy Strauss on 08-11-2023 Immature granulocytes/100 WBC (Bld) 1.500 % 0.0-0.9 [facility] Comment on above: IG% - Immature Granu locytes (promyelocytes, myelocytes and metamyelocytes) > 1% indicates that a LEFT SHIFT is Present. Laboratory - Chemistry and C hemistry - challengeOrdered By: Mitzy Strauss on 08-11-2023 CO2 [Moles/Vol] 24.0 mmol/L 21.0-32.0 [facility] Cobalamin (Vitamin B12) [Mass/Vol] 329 pg/mL 211-911 [facility] Urea nitrogen/Creatinine [Mass ratio] 26.6 mg/mg 10-20 [facility] Laboratory - Hematology and Cell countsOrdered By: Mitzy Strauss on 08-11-2023 MCH (RBC) [Entitic mass] 22.7 pg 27.0-32.0 [facility] MCHC (RBC) [Mass/Vol] 27.5 g/dL 32-36 [facility] Nucleated RBC/100 WBC (Bld) [Ratio] 0 % 0-5 [facility] Platelet mean volume (Bld) [Entitic vol] 11.5 fL 6.2-12.0 [facility] Platelets (Bld) [#/Vol] 161 10*3/uL 150-450 [facility] No Panel InformationOrdered By: Mitzy Strasus on 08-11-2023 Estimated Creatinine Clearance Calc 45.06 ml/min [facility] Estimated GFR (MDRD) Amer 123 mL/min >60 [facility] Comment on above: GFR Calc Estimated GFR (MDRD) Non-Af Amer 102 mL/min >60 [facility] Comment on above: Non- GFR Calc RBC Auto (Bld) [#/Vol]Ordere d By: Mitzy Strauss on 08-11-2023 RBC (Bld) [#/Vol] 3.00 10*6/uL 4.2-5.4 [facility] Serum or plasma calcium sonu urement (mass/volume)Ordered By: Mitzy Strauss on 08-11-2023 Calcium [Mass/Vol] 8.2 mg/dL 8.5-10.1 [facility] Serum or plasma creatinine m easurement (mass/volume)Ordered By: Mitzy Strauss on 08-11-2023 Creatinine [Mass/Vol] 0.60 mg/dL 0.55-1.02 [facility] Comment on above: The validity of the calculated GFR & GFRAA in patients over 70 years has not been determined. Clinical correlation is essential. Serum or plasma urea nitroge n measurement (mass/volume)Ordered By: Mitzy Strauss on 08-11-2023 Urea nitrogen [Mass/Vol] 16 mg/dL 7-18 [facility] Thin prep Papanicolaou smear with manual screeningOrdered By: Mitzy Strauss on 08-11-2023 Thin prep Papanicolaou smear with manual screening 6 5-15 [facility] Basophil percentageOrdered B y: Mitzy Strauss on 08-10-2023 Basophil percentage 2.6 mg/dL 2.5-4.9 [facility] Hemoglobin in reticulocytes (mass per reticulocyte)Ordered By: Mitzy Strauss on 08-10-2023 Hemoglobin (Reticulocytes) [Entitic mass] 26.1 pg 30-35 [facility] Iron measurement (mass/mass) Ordered By: Mitzy Strauss on 08-10-2023 Iron (Unsp spec) [Mass/Mass] 25 ug/dL 50-170 [facility] Laboratory - Chemistry and C hemistry - challengeOrdered By: Mitzy Strauss on 08-10-2023 Ferritin [Mass/Vol] 20 ng/mL 8-252 [facility] Magnesium [Mass/Vol] 2.2 mg/dL 1.6-2.6 [facility] No Panel InformationOrdered By: Mitzy Strauss on 08-10-2023 Immature Reticulocyte Fraction 35.70 % 3.00-15.90 [facility] Total Iron Binding Capacity 368 ug/dL 250-450 [facility] Reticulocytes Auto (Bld) [#/ Vol]Ordered By: Mitzy Strauss on 08-10-2023 Reticulocytes/100 RBC (Bld) 3.32 % 0.5-1.5 [facility] Serum or plasma iron saturat ion measurement (mass fraction)Ordered By: Mitzy Strauss on 08-10-2023 Iron saturation [Mass fraction] 6.8 % 15.0-55.0 [facility] Basophil percentageOrdered B y: Clayton Abreu on 08-09-2023 Basophil percentage 0 SEEN /hpf 0-5 [facility] Bilirubin [Mass/Vol] 0.90 mg/dL 0.20-1.00 [facility] Comment on above: For patients on eltr ombopag therapy, use of Dimension [place] TBIL is not recommended. Protein [Mass/Vol] 7.4 g/dL 6.4-8.2 [facility] Bilirubin Test strip Ql (U)O rdered By: Clayton Abreu on 08-09-2023 Bilirubin Ql (U) Negative Negative [facility] Ketones Test strip Ql (U)Ord ered By: Clayton Abreu on 08-09-2023 Ketones Ql (U) 150 mg/dl Negative [facility] Comment on above: CRITICAL VALUE *HCRI TICAL VALUE VERIFIED. CALLED TO АЛЕКСАНДР VOUEWKK23/10/24 1255 Lena Crouch.RESULTS READ BACK BY SAME . Laboratory - Chemistry and C hemistry - challengeOrdered By: Clayton Abreu on 08-09-2023 Albumin/Globulin [Mass ratio] 0.8 {ratio} 0.9-2.4 [facility] ALP [Catalytic activity/Vol] 186 U/L 45-117 [facility] ALT [Catalytic activity/Vol] 42 U/L 13-56 [facility] CK [Catalytic activity/Vol] 42 U/L 26-192 [facility] Globulin (S) [Mass/Vol] 4.1 g/dL 2.2-4.2 [facility] Laboratory - Microbiology an d Antimicrobial susceptibilityOrdered By: Clayton Abreu on 08-09-2023 SARS-CoV-2 (COVID-19) RNA LUBA+probe Ql (Unsp spec) [facility] Mucus LM Ql (Urine sed)Order ed By: Clayton Abreu on 08-09-2023 Mucus Ql (Urine sed) 0 SEEN /hpf [facility] Nitrite Test strip Ql (U)Ord ered By: Clayton Abreu on 08-09-2023 Nitrite Ql (U) Negative Negative [facility] No Panel InformationOrdered By: Clayton Abreu on 08-09-2023 Urine RBC 0 SEEN /hpf 0-5 [facility] Protein Test strip Ql (U)Ord ered By: Clayton Abreu on 08-09-2023 Protein Ql (U) 15 mg/dl Negative [facility] Serum or plasma thyroid stim ulating hormone (TSH) measurement (units/volume)Ordered By: Clayton Abreu on 08-09-2023 TSH Qn 4.30 uIU/mL 0.358-3.74 [facility] Squamous epithelial cells de tection in urine sediment by light microscopyOrdered By: Clayton Abreu on 08-09-2023 Epithelial cells.squamous LM Ql (Urine sed) 0 SEEN /hpf 5-10 [facility] Thin prep Papanicolaou smear with manual screeningOrdered By: Clayton Abreu on 08-09-2023 Thin prep Papanicolaou smear with manual screening 3.3 g/dL 3.2-5.0 [facility] Thin prep Papanicolaou smear with manual screening 53 U/L 15-37 [facility] Urine blood detectionOrdered By: Clayton Abreu on 08-09-2023 RBC Ql (U) 10 /ul Negative [facility] Urine clarityOrdered By: Apolonia Abreu on 08-09-2023 Clarity (U) Clear Clear [facility] Urine color determinationOrd ered By: Clayton Abreu on 08-09-2023 Color (U) Yellow Yellow [facility] Urine glucose detectionOrder ed By: Clayton Abreu on 08-09-2023 Glucose Ql (U) 1000 mg/dl Normal [facility] Urine leukocyte esterase det ection by dipstickOrdered By: Clayton Abreu on 08-09-2023 Leukocyte esterase Test strip Ql (U) Negative Negative [facility] Urine pHOrdered By: Clayton angel on 08-09-2023 pH (U) 5.0 [pH] 5.0 - 8.0 [facility] Urine sediment bacteria coun t by microscopy (number/high power field)Ordered By: Clayton Abreu on 08-09-2023 Bacteria LM.HPF (Urine sed) [#/Area] 0 /[HPF] None Seen [facility] Urine specific gravity measu rementOrdered By: Clayton Abreu on 08-09-2023 Specific gravity (U) [Rel density] 1.015 1.002-1.030 [facility] Urine urobilinogen measureme ntOrdered By: Clayton Abreu on 08-09-2023 Urobilinogen Ql (U) Normal mg/dl Normal [facility] 25(OH)D3 SerPl-mCncon 2023 25-hydroxyvitamin D3 [Mass/Vol] 7.1 ng/mL Low 31.0-80.0 [facility] Comment on above: Order Comment: Speci men Type: BLOOD SPECIMEN Ordering Facility: [facility] Address: [facility] [place] [address] Result Comment: Clas sification of 25 [place] Vitamin D status: Deficiency/Insufficiency: < or = 30 ng/ml. Sufficiency/Optimal Levels: 31-80 ng/mL Toxicity: > 100 ng/mL. Test performed by chemiluminescent immunoassay. Performed By: #### 1 989-3 #### [facility] CLIA [id number] [address] [place] [address] [place] CBC panel Auto (Bld)on 07-04 Erythrocyte distribution width (RBC) [Ratio] 15.9 % High 11.5-15.0 [facility] Comment on above: Order Comment: Speci men Type: BLOOD SPECIMEN Ordering Facility: [facility] Address: [address] [place] [address] Performed By: #### 1 989-3 #### [facility] CLIA [id number] [address] [place] [address] [place] Hematocrit (Bld) [Volume fraction] 27.9 % Low 36.0-46.0 [facility] Comment on above: Order Comment: Speci men Type: BLOOD SPECIMEN Ordering Facility: [facility] Address: [address] [place] [address] Performed By: #### 1 989-3 #### [facility] CLIA [id number] [address] [place] [address] [place] Hemoglobin (Bld) [Mass/Vol] 7.8 g/dL Low 11.5-15.5 [facility] Comment on above: Order Comment: Speci men Type: BLOOD SPECIMEN Ordering Facility: [facility] Address: [address] [place] [address] Performed By: #### 1 989-3 #### [facility] CLIA [id number] [address] [place] [address] [place] MCH (RBC) [Entitic mass] 23.1 pg Low 26.0-34.0 [facility] Comment on above: Order Comment: Speci men Type: BLOOD SPECIMEN Ordering Facility: [facility] Address: [address] [place] [address] Performed By: #### 1 989-3 #### [facility] CLIA [id number] [address] [place] [address] [place] MCHC (RBC) [Mass/Vol] 28.0 g/dL Low 30.5-36.0 [facility] Comment on above: Order Comment: Speci men Type: BLOOD SPECIMEN Ordering Facility: [facility] Address: [address] [place] [address] Performed By: #### 1 989-3 #### [facility] CLIA [id number] [address] [place] [address] [place] MCV (RBC) [Entitic vol] 82.8 fL Normal 80.0-100.0 [facility] Comment on above: Order Comment: Speci men Type: BLOOD SPECIMEN Ordering Facility: [facility] Address: [address] [place] [address] Performed By: #### 1 989-3 #### [facility] CLIA [id number] [address] [place] [address] [place] Nucleated RBC (Bld) [#/Vol] 10*3/uL Normal <0.01 [facility] Comment on above: Order Comment: Speci men Type: BLOOD SPECIMEN [facility] [facility] Address: [address] [place] [address] Performed By: #### 1 989-3 #### [facility] CLIA [id number] [address] [place] [address] [place] Platelet mean volume (Bld) [Entitic vol] 12.5 fL Normal 9.0-12.7 [facility] Comment on above: Order Comment: Speci men Type: BLOOD SPECIMEN Ordering Facility: [facility] Address: [address] [place] [address] Performed By: #### 1 989-3 #### [facility] CLIA [id number] [address] [place] [address] [place] Platelets (Bld) [#/Vol] 204 10*3/uL Normal 150-400 [facility] Comment on above: Order Comment: Speci men Type: BLOOD SPECIMEN [facility]ing Facility: [facility] Address: [address] [place] [address] Performed By: #### 1 989-3 #### [facility] CLIA [id number] [address] [place] [address] [place] RBC (Bld) [#/Vol] 3.37 10*6/uL Low 3.90-5.20 [facility] Comment on above: Order Comment: Speci men Type: BLOOD SPECIMEN Ordering Facility: [facility] Address: [address] [place] [address] Performed By: #### 1 989-3 #### [facility] CLIA [id number] [address] [place] [address] [place] WBC (Bld) [#/Vol] 5.46 10*3/uL Normal 3.70-11.00 [facility] Comment on above: Order Comment: Speci men Type: BLOOD SPECIMEN Ordering Facility: [facility] Address: [address] [place] [address] Performed By: #### 1 989-3 #### [facility] CLIA [id number] [address] [place] [address] [place] Comprehensive metabolic 2000 panelon 07-04-2023 Albumin [Mass/Vol] 4.3 g/dL Normal 3.9-4.9 [facility] Comment on above: Order Comment: Speci men Type: BLOOD SPECIMEN [facility]ing Facility: [facility] Address: [address] [place] [address] Performed By: #### 1 989-3 #### [facility] CLIA [id number] [address] [place] [address] [place] ALP [Catalytic activity/Vol] 188 U/L High 34-123 [facility] Comment on above: Order Comment: Speci men Type: BLOOD SPECIMEN [facility]ing Facility: [facility] Address: [address] [place] [address] Performed By: #### 1 989-3 #### [facility] CLIA [id number] [address] [address] [place] ALT [Catalytic activity/Vol] 45 U/L High 7-38 [facility] Comment on above: Order Comment: Speci men Type: BLOOD SPECIMEN [facility] Facility[facility] Address: [address] [place] [address] Performed By: #### 1 989-3 #### [facility] CLIA [id number] [address] [place] [address] [place] Anion gap [Moles/Vol] 14 mmol/L Normal 9-18 [facility] Comment on above: Order Comment: Speci men Type: BLOOD SPECIMEN [facility]ing Facility: [facility] Address: [address] [place] [address] Performed By: #### 1 989-3 #### [facility] CLIA [id number] [address] [place] [address] [place] AST [Catalytic activity/Vol] 48 U/L High 13-35 [facility] Comment on above: Order Comment: Speci men Type: BLOOD SPECIMEN [facility]ing Facility[facility] Address: [address] [place] [address] Performed By: #### 1 989-3 #### [facility] CLIA [id number] [address] [place] [address] [place] Bilirubin [Mass/Vol] 0.6 mg/dL Normal 0.2-1.3 [facility] Comment on above: Order Comment: Speci men Type: BLOOD SPECIMEN [facility]ing Facility: [facility] Address: [address] [place] [address] Performed By: #### 1 989-3 #### [facility] CLIA [id number] [address] [place] [id number] [place] Calcium [Mass/Vol] 9.7 mg/dL Normal 8.5-10.2 [facility] Comment on above: Order Comment: Speci men Type: BLOOD SPECIMEN [facility] Address: [address] [place] [address] Performed By: #### 1 989-3 #### [facility] CLIA [id number] [address] [place] [address] [place] Chloride [Moles/Vol] 98 mmol/L Normal 97-105 [facility] Comment on above: Order Comment: Speci men Type: BLOOD SPECIMEN Ordering Facility: [facility] Address: [address] [place] [address] Performed By: #### 1 989-3 #### [facility] CLIA [id number] [address] [place] [address] [place] CO2 [Moles/Vol] 23 mmol/L Normal 22-30 [facility] Comment on above: Order Comment: Speci men Type: BLOOD SPECIMEN [facility]ing Facility: [facility] Address: [address] [place] [address] Performed By: #### 1 989-3 #### [facility] CLIA [id number] [address] [place] [address] [place] Creatinine [Mass/Vol] 0.68 mg/dL Normal 0.58-0.96 [facility] Comment on above: Order Comment: Speci men Type: BLOOD SPECIMEN [facility]ing Facility[facility] Address: [address] [place] [address] Performed By: #### 1 989-3 #### [facility] CLIA [id number] [address] [place] [address] [place] Creatinine and Glomerular filtration rate.predicted panel (S/P/Bld) 88 mL/min/1.73m??? Normal >=60 [facility] Comment on above: Order Comment: Speci men Type: BLOOD SPECIMEN [facility]ing Facility: [facility] Address: [address] [place] [address] Result Comment: Audra mated Glomerular Filtration Rate (eGFR) is calculated using the 2020 CKD-EPI creatinine equation. This equation utilizes serum creatinine, sex, and age as parameters. The creatinine assay has traceable calibration to isotope dilution-mass spectrometry. Refer to KDIGO guidelines for clinical interpretation. In patients with unstable renal function, e.g. those with acute kidney injury, the eGFR may not accurately reflect actual GFR. Performed By: #### 1 989-3 #### [facility] CLIA [id number] [address] [place] [address] [place] Glucose [Mass/Vol] 492 mg/dL High 74-99 [facility] Comment on above: Order Comment: Sudhakar mera Type: BLOOD SPECIMEN Ordering Facility[facility] Address: [address] [place] [address] Result Comment: The [place] Diabetes Association (ADA) provides guidance for cutoff values for fasting glucose and random glucose. The ADA defines fasting as no caloric intake for at least 8 hours. Fasting plasma glucose results between 100 to 125 mg/dL indicate increased risk for diabetes (prediabetes). Fasting plasma glucose results greater than or equal to 126 mg/dL meet the criteria for diagnosis of diabetes. In the absence of unequivocal hyperglycemia, results should be confirmed by repeat testing. In a patient with classic symptoms of hyperglycemia or hyperglycemic crisis, random plasma glucose results greater than or equal to 200 mg/dL meet the criteria for diagnosis of diabetes. Reference: Standards of Medical Care in Diabetes 2016, [place] Diabetes Association. Diabetes Care. 2016.39(Suppl 1). Performed By: #### 1 989-3 #### [facility] CLIA [id number] [address] [place] [id number] [place] Potassium [Moles/Vol] 4.7 mmol/L Normal 3.7-5.1 [facility] Comment on above: Order Comment: Sudhakar mera Type: BLOOD SPECIMEN Ordering Facility: [facility] Address: [address] [place] [address] Performed By: #### 1 989-3 #### [facility] CLIA [id number] [address] [address] [place] Protein [Mass/Vol] 7.2 g/dL Normal 6.3-8.0 [facility] Comment on above: Order Comment: Speci men Type: BLOOD SPECIMEN Order[facility] Facility[facility] Address: [address] [place] [address] Performed By: #### 1 989-3 #### [facility] CLIA [id number] [address] [place] [address] [place] Sodium [Moles/Vol] 135 mmol/L Low 136-144 [facility] Comment on above: Order Comment: Speci men Type: BLOOD SPECIMEN Order[facility] Facility[facility] Address: [address] [place] [address] Performed By: #### 1 989-3 #### [facility] CLIA [id number] [address] [place] [address] [place] Urea nitrogen [Mass/Vol] 15 mg/dL Normal 7-21 [facility] Comment on above: Order Comment: Speci men Type: BLOOD SPECIMEN Order[facility] Address: [address] [place] [address] Performed By: #### 1 989-3 #### [facility] CLIA [id number] [address] [place] [address] [place] HbA1c (Bld)on 07-04-2023 Average glucose Estimated from glycated hemoglobin (Bld) [Mass/Vol] 324 mg/dL Normal [facility] Comment on above: Order Comment: Speci men Type: BLOOD SPECIMEN Ordering Facility: [facility] Address: [address] [place] [address] Result Comment: eAG: (Estimated average glucose) is a calculated value from HgbA1c and is wire rope sales representative of the average blood glucose level in the last 2-3 month period. Performed By: #### 5 5454-3 #### [facility] CLIA [id number] [address] [place] [address] [place] HbA1c (Bld) [Mass fraction] 12.9 % High 4.3-5.6 [facility] Comment on above: Order Comment: Speci men Type: BLOOD SPECIMEN Ordering [facility] Address: [address] [place] [address] Result Comment: [place] Diabetes Association guidelines indicate that patients with HgbA1c in the range 5.7-6.4% are at increased risk for development of diabetes, and intervention by lifestyle modification may be beneficial. HgbA1c greater or equal to 6.5% is considered diagnostic of diabetes. Performed By: #### 5 5454-3 #### [facility] CLIA [id number] [address] [place] [address] [place] T3Free SerPl-mCncon 07-04-19 24 Free T3 [Mass/Vol] 2.4 pg/mL Normal 2.3-4.1 [facility] Comment on above: Order Comment: Speci men Type: BLOOD SPECIMEN [facility] Address: [address] [place] [address] Performed By: #### 1 989-3 #### [facility] CLIA [id number] [address] [place] [address] [place] T4 Free SerPl-mCncon 024 Free T4 [Mass/Vol] 1.3 ng/dL Normal 0.9-1.7 [facility] Comment on above: Order Comment: Speci men Type: BLOOD SPECIMEN Order[facility] Address: [address] [place] [address] Performed By: #### 1 989-3 #### [facility] CLIA [id number] [address] [place], [place] [id number] [place] TSH SerPl-aCncon 07-04-2023 TSH Qn 4.380 m[IU]/L High 0.270-4.200 [facility] Comment on above: Order Comment: Speci men Type: BLOOD SPECIMEN [facility] Address: [address] [place] [address] Performed By: #### 1 989-3 #### [facility] CLIA [id number] [address] [place] [id number] [facility] [place] 04-21-2023 CNPN Telephone (ROCK) DARIELSTEVE ([id number]) 1945 F Date Time Provider Department 04/21/23 SHERWIN CHE During your visit today, we recorded the following information about you: Sherwin Che, OSITO 04/21/2023 10:21 AM Signed Sw spoke with patient and verified that patient Jardiance medication is the only medication that she applies to [facility] for assistance. Lesli will take forms to Dr. Ellis office for prescription completion. Renetta Abernathy LPN 04/22/2023 1:40 PM Signed [employer] Maria Guadalupe Rabago completed these. They have been faxed back to the company. Allergies As of Date: 04/21/2023 Noted Allergy Reaction CONTRAST DYE 06/02/2014 8 [...] LPN - Fully Assessed Reason for Visit: pt assistance forms [Other] Prescriptions as of 04/22/2023 - levothyroxine (SYNTHROID) 25 mcg tablet Take 1 tablet by mouth every Friday,Friday, ay. Take on empty stomach. For thyroid. Add [...] by mouth daily with breakfast. Gets through [employer]. - ferrous sulfate 325 mg (65 mg iron) tablet Take 325 mg by mouth once daily. - blood sugar diagnostic (BLOOD GLUCOSE TEST) test strip Test blood sugar(s) 2 times daily. Dx: Type 2 DM - Controlled E11.9 Insulin: No - Lancets lancets Test blood sugar(s) 2 daily. Dx: E11.9 Insulin: No Problem List As Of Date 04/21/2023 Noted Resolved DIABETES MELLITUS TYPE II-UNCOMPL [E11.9] [...] B12 deficiency [E53.8] 08/13/2021 Encounter Status:Closed by RENETTA ABERNATHY LPN on 04/22/23 [facility] [place] 03-04-2023 CNPN Telephone (ALEAHWST) STEVE VIEIRA ([id number]) 1945 F Date Time Provider Department 03/04/23 SHERWIN CHE During your visit today, we recorded the following information about you: Sherwin Che MSW 03/04/2023 11:56 AM Signed Lesli left message for patient that Sw has updated [employer] stop info and discounted cab pass info. Lesli noted in message to patient to let this Sw know if patient would like info mailed out to her and if she has any other social service needs. Sherwin Che MSW 03/05/2023 12:03 PM Signed Lesli spoke with patient in regards to [employer] and discount cab vouchers. Lesli has updated brochures with transit cost and stops. Lesli will mail [employer] brochures and [facility] Older Adult resource guide to patient home. Patient noted that she would appreciate updated [employer] stop info and discount cab voucher guidelines. Allergies As of Date: 03/04/2023 Noted Allergy Reaction CONTRAST DYE 06/02/2014 8 [...] by: Roula Woodall LPN - Fully Assessed Prescriptions as of 03/05/2023 - levothyroxine (SYNTHROID) 25 mcg tablet Take 1 tablet by mouth every Friday,Friday, ay. Take on empty stomach. For thyroid. Add [...] by mouth daily with breakfast. Gets through [employer]. - ferrous sulfate 325 mg (65 mg iron) tablet Take 325 mg by mouth once daily. - blood sugar diagnostic (BLOOD GLUCOSE TEST) test strip Test blood sugar(s) 2 times daily. Dx: Type 2 DM - Controlled E11.9 Insulin: No - Lancets lancets Test blood sugar(s) 2 daily. Dx: E11.9 Insulin: No Problem List As Of Date 03/04/2023 Noted Resolved DIABETES MELLITUS TYPE II-UNCOMPL [E11.9] [...] Uncontrolled type 2 diabetes mellitus with hype*08/13/2021 Iron deficiency anemia [D50.9] 08/13/2021 B12 deficiency [E53.8] 08/13/2021 Encounter Status:Closed by SHERWIN CHE on 03/05/23 [facility] CNOVon 02-28-2023 CNOV Office Visit (INTMWS ) DARIEL,MARGARET L ([id number]) 1945 F Date Time Provider Department 02/28/23 2:00 PM PETER ELLIS INTMWS During your visit today, we recorded the following information about you: Temperature Pulse Respiration Blood pressure 97.8 degrees 115/minute 18/minute 104/65 Weight 64.9 kg Peter Ellis MD 03/31/2023 12:27 AM Signed This note was created using [employer]. Subjective Steve Vieira is a 77 year old female. Patient presents with: 4 month follow up: Labs prior SUBJECTIVE: Steve Vieira is a 77 year old year old [...] by mouth daily with breakfast. Gets through [employer]. ferrous sulfate 325 mg (65 [...] (UCRR) 20.0 - 300.0 mg/dL 94.6 85.8 Albumin (more content not included)... Normal [facility] ALBUMIN/CREAT RATIO RND URon 02-13-2023 Albumin DL <= 20 mg/L (U) [Mass/Vol] 15.5 mg/L Normal [facility] Comment on above: Order Comment: Speci men Type: URINE SPECIMENOrdering Facility: [facility] Address: [address] [id number] Performed By: #### U ACR ####[facility] [id number] [place] [address] [place] Albumin/Creatinine (U) [Mass ratio] 18 mg/g Normal <30 [facility] Comment on above: Order Comment: Speci men Type: URINE SPECIMENOrdering Facility: [facility] Address: [address] [id number] Result Comment: Adul t Male and Female Nephrotic Criteria: <30 mg/g is considered normal to mildly increased 30-300 mg/g is considered moderately increased >300 mg/g is considered severely increased KDIGO. (2013). KDIGO 2012 Clinical Practice Guideline for the Evaluation and Management of Chronic Kidney Disease. Official Journal of the International Society of Nephrology, 3(1), 1-150. Performed By: #### U ACR ####[facility] [id number] [address] [facility] Creatinine (U) [Mass/Vol] 85.8 mg/dL Normal 20.0-300.0 [facility] Comment on above: Order Comment: Speci men Type: URINE SPECIMENOrdering Facility: [facility] Address: [address] [phone] Performed By: #### U ACR ####[facility] [id number] [address] [facility] CBC panel Auto (Bld)on 02-13 Erythrocyte distribution width (RBC) [Ratio] 15.3 % High 11.5 - 15.0 % [facility] Hematocrit (Bld) [Volume fraction] 29.8 % Low 36.0 - 46.0 % [facility] Hemoglobin (Bld) [Mass/Vol] 8.5 g/dL Low 11.5 - 15.5 g/dL [facility] MCH (RBC) [Entitic mass] 24.8 pg Low 26. 0 - 34.0 pg [facility] MCHC (RBC) [Mass/Vol] 28.5 g/dL Low 30.5 - 36.0 g/dL [facility] MCV (RBC) [Entitic vol] 86.9 fL 80.0 - 100.0 fL [facility] Nucleated RBC (Bld) [#/Vol] <0.01 k/uL [facility] Platelet mean volume (Bld) [Entitic vol] 11.9 fL 9.0 - 12.7 fL [facility] Platelets (Bld) [#/Vol] 232 10*3/uL 150 - 400 k/uL [facility] RBC (Bld) [#/Vol] 3.43 10*6/uL Low 3.90 - 5.2 0 m/uL [facility] WBC (Bld) [#/Vol] 6.00 10*3/uL 3.70 - 11. 00 k/uL [facility] Erythrocyte distribution width (RBC) [Ratio] 15.3 % High 11.5-15.0 [facility] Comment on above: Order Comment: Speci men Type: BLOOD SPECIMENOrdering Facility: [facility] Address: [address] [place] [address] Performed By: #### 5 8410-2 ####[facility] [id number] [place] [address] [place] Hematocrit (Bld) [Volume fraction] 29.8 % Low 36.0-46.0 [facility] Comment on above: Order Comment: Speci men Type: BLOOD SPECIMENOrdering Facility: [facility] Address: [address] [place] [address] Performed By: #### 5 8410-2 ####[facility] [id number] [place] [address] [place] Hemoglobin (Bld) [Mass/Vol] 8.5 g/dL Low 11.5-15.5 [facility] Comment on above: Order Comment: Speci men Type: BLOOD SPECIMENOrdering Facility: [facility] Address: [address] [place] [address] Performed By: #### 5 8410-2 ####[facility] [id number] [place] [address] [place] MCH (RBC) [Entitic mass] 24.8 pg Low 26.0-34.0 [facility] Comment on above: Order Comment: Speci men Type: BLOOD SPECIMENOrdering Facility: [facility] Address: [address] [place] [address] Performed By: #### 5 8410-2 ####[facility] [id number] [place] [address] [place] MCHC (RBC) [Mass/Vol] 28.5 g/dL Low 30.5-36.0 [facility] Comment on above: Order Comment: Speci men Type: BLOOD SPECIMENOrdering Facility: [facility] Address: [address] [place] [address] Performed By: #### 5 8410-2 ####[facility] [id number] [address] [place] MCV (RBC) [Entitic vol] 86.9 fL Normal 80.0-100.0 [facility] Comment on above: Order Comment: Speci men Type: BLOOD SPECIMENOrdering Facility: [facility] Address: [address] [place] [address] Performed By: #### 5 8410-2 ####[facility] [id number] [address] [place] Nucleated RBC (Bld) [#/Vol] 10*3/uL Normal <0.01 [facility] Comment on above: Order Comment: Speci men Type: BLOOD SPECIMENOrdering Facility: [facility] Address: [address] [place], [place] [id number] Performed By: #### 5 8410-2 ####[facility] [id number] [place] [address] [place] Platelet mean volume (Bld) [Entitic vol] 11.9 fL Normal 9.0-12.7 [facility] Comment on above: Order Comment: Speci men Type: BLOOD SPECIMENOrdering Facility: [facility] Address: [address] [place], [place] [address] Performed By: #### 5 8410-2 ####[facility] [id number] [place] [address] [place] Platelets (Bld) [#/Vol] 232 10*3/uL Normal 150-400 [facility] Comment on above: Order Comment: Speci men Type: BLOOD SPECIMENOrdering Facility: [facility] Address: [address] [place] [address] Performed By: #### 5 8410-2 ####[facility] [id number] [place] [address] [place] RBC (Bld) [#/Vol] 3.43 10*6/uL Low 3.90-5.20 [facility] Comment on above: Order Comment: Speci men Type: BLOOD SPECIMENOrdering Facility: [facility] Address: [address] Performed By: #### 5 8410-2 ####[facility] [id number] [place] [address] [place] WBC (Bld) [#/Vol] 6.00 10*3/uL Normal 3.70-11.00 [facility] Comment on above: Order Comment: Speci men Type: BLOOD SPECIMENOrdering Facility: [facility] Address: [address] [place] [address] Performed By: #### 5 8410-2 ####[facility] [id number] [place] [address] [place] Comprehensive metabolic 2000 panelon 02-13-2023 Albumin [Mass/Vol] 4.3 g/dL Normal 3.9-4.9 [facility] Comment on above: Order Comment: Speci men Type: BLOOD SPECIMEN [facility] Address: [address] [place] [address] Performed By: #### 1 989-3 #### [facility] CLIA [id number] [address] [place] [address] [place] ALP [Catalytic activity/Vol] 151 U/L High 34-123 [facility] Comment on above: Order Comment: Speci men Type: BLOOD SPECIMEN [facility] Address: [address] [place] [address] Performed By: #### 1 989-3 #### [facility] CLIA [id number] [address] [place] [address] [place] ALT [Catalytic activity/Vol] 32 U/L Normal 7-38 [facility] Comment on above: Order Comment: Speci men Type: BLOOD SPECIMEN [facility] Address: [address] [place] [address] Performed By: #### 1 989-3 #### [facility] CLIA [id number] [address] [place] [address] [place] Anion gap [Moles/Vol] 13 mmol/L Normal 9-18 [facility] Comment on above: Order Comment: Speci men Type: BLOOD SPECIMEN [facility] Address: [address] [place] [address] Performed By: #### 1 989-3 #### [facility] CLIA [id number] [address] [place] [address] [place] AST [Catalytic activity/Vol] 59 U/L High 13-35 [facility] Comment on above: Order Comment: Speci men Type: BLOOD SPECIMEN [facility] Address: [address] [place] [address] Performed By: #### 1 989-3 #### [facility] CLIA [id number] [address] [place] [address] [place] Bilirubin [Mass/Vol] 0.5 mg/dL Normal 0.2-1.3 [facility] Comment on above: Order Comment: Speci men Type: BLOOD SPECIMEN [facility] Address: [address] [place] [address] Performed By: #### 1 989-3 #### [facility] CLIA [id number] [address] [place] [address] [place] Calcium [Mass/Vol] 9.6 mg/dL Normal 8.5-10.2 [facility] Comment on above: Order Comment: Speci men Type: BLOOD SPECIMEN [facility] Address: [address] [place] [address] Performed By: #### 1 989-3 #### [facility] CLIA [id number] [address] [place] [address] [place] Chloride [Moles/Vol] 104 mmol/L Normal 97-105 [facility] Comment on above: Order Comment: Speci men Type: BLOOD SPECIMEN [facility] Address: [address] [place] [address] Performed By: #### 1 989-3 #### [facility] CLIA [id number] [address] [place] [address] [place] CO2 [Moles/Vol] 21 mmol/L Low 22-30 [facility] Comment on above: Order Comment: Speci men Type: BLOOD SPECIMEN Ordering Facility: [facility] Address: [address] [place] [address] Performed By: #### 1 989-3 #### [facility] CLIA [id number] [address] [place] [address] [place] Creatinine [Mass/Vol] 0.73 mg/dL Normal 0.58-0.96 [facility] Comment on above: Order Comment: Speci men Type: BLOOD SPECIMEN Ordering Facility: [facility] Address: [address] [place] [address] Performed By: #### 1 989-3 #### [facility] CLIA [id number] [address] [place] [address] [place] Creatinine and Glomerular filtration rate.predicted panel (S/P/Bld) 84 mL/min/1.73m??? Normal >=60 [facility] Comment on above: Order Comment: Speci men Type: BLOOD SPECIMEN Ordering Facility: [facility] Address: [address] [place] [address] Result Comment: Audra mated Glomerular Filtration Rate (eGFR) is calculated using the 2020 CKD-EPI creatinine equation. This equation utilizes serum creatinine, sex, and age as parameters. The creatinine assay has traceable calibration to isotope dilution-mass spectrometry. Refer to KDIGO guidelines for clinical interpretation. In patients with unstable renal function, e.g. those with acute kidney injury, the eGFR may not accurately reflect actual GFR. Performed By: #### 1 989-3 #### [facility] CLIA [id number] [facility] [place] [address] [place] Glucose [Mass/Vol] 172 mg/dL High 74-99 [facility] Comment on above: Order Comment: Sudhakar mera Type: BLOOD SPECIMEN Ordering Facility: [facility] Address: [address] [place] [address] Result Comment: The [place] Diabetes Association (ADA) provides guidance for cutoff values for fasting glucose and random glucose. The ADA defines fasting as no caloric intake for at least 8 hours. Fasting plasma glucose results between 100 to 125 mg/dL indicate increased risk for diabetes (prediabetes). Fasting plasma glucose results greater than or equal to 126 mg/dL meet the criteria for diagnosis of diabetes. In the absence of unequivocal hyperglycemia, results should be confirmed by repeat testing. In a patient with classic symptoms of hyperglycemia or hyperglycemic crisis, random plasma glucose results greater than or equal to 200 mg/dL meet the criteria for diagnosis of diabetes. Reference: Standards of Medical Care in Diabetes 2016, [place] Diabetes Association. Diabetes Care. 2016.39(Suppl 1). Performed By: #### 1 989-3 #### [facility] CLIA [id number] [facility] [place] [address] [place] Potassium [Moles/Vol] 4.9 mmol/L Normal 3.7-5.1 [facility] Comment on above: Order Comment: Sudhakar mera Type: BLOOD SPECIMEN Ordering Facility: [facility] Address: [address] [place] [address] Performed By: #### 1 989-3 #### [facility] CLIA [id number] [address] [place] [address] [place] Protein [Mass/Vol] 7.1 g/dL Normal 6.3-8.0 [facility] Comment on above: Order Comment: Speci men Type: BLOOD SPECIMEN Ordering Facility: [facility] Address: [address] [place] [address] Performed By: #### 1 989-3 #### [facility] CLIA [id number] [address] [place] [address] [place] Sodium [Moles/Vol] 138 mmol/L Normal 136-144 [facility] Comment on above: Order Comment: Speci men Type: BLOOD SPECIMEN Ordering Facility: [facility] Address: [address] [place] [address] Performed By: #### 1 989-3 #### [facility] CLIA [id number] [address] [place] [address] [place] Urea nitrogen [Mass/Vol] 21 mg/dL Normal 7-21 [facility] Comment on above: Order Comment: Speci men Type: BLOOD SPECIMEN Ordering Facility: [facility] Address: [address] [place] [address] Performed By: #### 1 989-3 #### [facility] CLIA [id number] [address] [place] [address] [place] Ferritin SerPl-mCncon 2022 Ferritin [Mass/Vol] 16.6 ng/mL Normal 14.7-205.1 [facility] Comment on above: Order Comment: Speci men Type: BLOOD SPECIMENOrdering Facility: [facility] Address: [address] [place] [id number] Performed By: #### 2 276-4, 3024-7, 3016-3 ####[facility] [id number] [place] [address] [place] Folate SerPl-mCncon 02-14-20 23 Folate [Mass/Vol] ng/mL Normal >4.7 [facility] Comment on above: Order Comment: Sudhakar mera Type: BLOOD SPECIMENOrdering Facility: [facility] Address: [address] [place] [address] Result Comment: A re sult of > 20 ng/mL is not necessarily indicative of a pathologic or treatable condition: it reflects a limitation of the test methodology. Assay reference range: 4.8 to 24.2 ng/mL. Suitable for detection of folate deficiency. Reference: Folate III (Folate III) [package insert V 1.0 Lao]. [employer], [place], [place]: April 2015. Performed By: #### 2 132-9, 2284-8 ####[facility] [id number] [address] [place] HbA1c (Bld)on 02-13-2023 Average glucose Estimated from glycated hemoglobin (Bld) [Mass/Vol] 206 mg/dL Normal [facility] Comment on above: Order Comment: Sudhakar mera Type: BLOOD SPECIMENOrdering Facility: [facility] Address: [address] [place] [address] Result Comment: eAG: (Estimated average glucose) is a calculated value from HgbA1c and is wire rope sales representative of the average blood glucose level in the last 2-3 month period. Performed By: #### 5 5454-3 ####[facility] [id number] [place] [address] [place] HbA1c (Bld) [Mass fraction] 8.8 % High 4.3-5.6 [facility] Comment on above: Order Comment: Sudhakar [facility] Type: BLOOD SPECIMENOrdering Facility: [facility] Address: [address] [place] [address] Result Comment: [place] Diabetes Association guidelines indicate that patients with HgbA1c in the range 5.7-6.4% are at increased risk for development of diabetes, and intervention by lifestyle modification may be beneficial. HgbA1c greater or equal to 6.5% is considered diagnostic of diabetes. Performed By: #### 5 5454-3 ####[facility] [id number] [place] [address] [place] Iron and Iron binding capaci ty panelon 02-13-2023 Iron [Mass/Vol] 29 ug/dL Low 41-186 [facility] Comment on above: Order Comment: Speci men Type: BLOOD SPECIMEN Ordering Facility: [facility] Address: [address] [place] [address] Performed By: #### 1 989-3 #### [facility] CLIA [id number] [address] [place] [address] [place] Iron binding capacity [Mass/Vol] 418 ug/dL High 232-386 [facility] Comment on above: Order Comment: Speci men Type: BLOOD SPECIMEN Ordering Facility: [facility] Address: [address] [place] [address] Performed By: #### 1 989-3 #### [facility] CLIA [id number] [address] [place] [address] [place] Iron/TIBC [Molar ratio] 6.9 % Low 15.0-57.0 C [facility] Comment on above: Order Comment: Speci men Type: BLOOD SPECIMEN Ordering Facility: [facility] Address: [address] [place] [address] Performed By: #### 1 989-3 #### [facility] CLIA [id number] [address] [place] [address] [place] Lipid 1996 panelon Cholesterol [Mass/Vol] 118 mg/dL Normal <200 [facility] Comment on above: Order Comment: Speci men Type: BLOOD SPECIMENOrdering Facility: [facility] Address: [address] [place], [place] [address] Result Comment: <200 mg/dL, Desirable 200-239 mg/dL, Borderline high >239 mg/dL, High Performed By: #### 3 051-0, 76938-3, 71524-7, 25199-9 ####[facility] [id number] [address] Cholesterol in HDL [Mass/Vol] 32 mg/dL Low >39 [facility] Comment on above: Order Comment: Sudhakar samaria Type: BLOOD SPECIMENOrdering Facility: [facility] Address: [address] [place] [address] Result Comment: 40-5 9 mg/dL, Acceptable >59 mg/dL, High: Negative risk factor for coronary heart disease <40 mg/dL, Low: Positive risk factor for coronary heart disease Performed By: #### 3 051-0, 49534-4, 57891-7, 12560-4 ####[facility] [id number] [address] Cholesterol in LDL [Mass/Vol] 63 mg/dL Normal <100 [facility] Comment on above: Order Comment: Sudhakar mera Type: BLOOD SPECIMENOrdering Facility: [facility] Address: [address] [place] [address] Result Comment: <100 mg/dL, Optimal 100-129 mg/dL, Near optimal/above optimal 130-159 mg/dL, Borderline high 160-189 mg/dL, High >189 mg/dL, Very high Secondary prevention optimal LDL Cholesterol levels are recommended to be < 70 mg/dL Performed By: #### 3 051-0, 43588-7, 71489-8, 10051-2 ####[facility] [id number] [address] [facility] Cholesterol in LDL/Cholesterol in HDL [Mass ratio] 1.97 {ratio} Normal <2.54 [facility] Comment on above: Order Comment: Sudhakar samaria Type: BLOOD SPECIMENOrdering Facility: [facility] Address: [address] [place] [address] Result Comment: Perico zhao: 1. National Cholesterol Education Program ATP III Guideline At-A-Glance Quick Desk Reference: National Heart, Lung, and Blood [place]. National Institutes of Health. 2001: NIH Publication No. 01-3305. 2. An International Atherosclerosis Society position paper: global recommendations for the management of dyslipidemia: executive summary, Atherosclerosis. 2014: 232(2):410-413. Performed By: #### 3 051-0, 87456-2, 84586-6, 59374-9 ####[facility] [id number] [place] [address] [place] Cholesterol in VLDL [Mass/Vol] 23 mg/dL Normal <30 [facility] Comment on above: Order Comment: Speci men Type: BLOOD SPECIMENOrdering Facility: [facility] Address: [address] [place] [address] Performed By: #### 3 051-0, 24502-0, 28242-5, 04413-3 ####[facility] [id number] [place] [address] [place] Cholesterol non HDL [Mass/Vol] 86 mg/dL Normal <130 [facility] Comment on above: Order Comment: Speci men Type: BLOOD SPECIMENOrdering Facility: [facility] Address: [address] [place] [address] Result Comment: <130 mg/dL, Optimal 130-159 mg/dL, Near optimal/above optimal 160-189 mg/dL, Borderline high 190-219 mg/dL, High >219 mg/dL, Very high Secondary prevention optimal non HDL Cholesterol levels are recommended to be <100 mg/dL Performed By: #### 3 051-0, 50697-9, 12123-8, 06768-4 ####[facility] [id number] [place] [address] [place] Cholesterol.total/Cholest cristian in HDL [Mass ratio] 3.69 {ratio} Normal <5.10 [facility] Comment on above: Order Comment: Speci men Type: BLOOD SPECIMENOrdering Facility: [facility] Address: [address] [place] [address] Performed By: #### 3 051-0, 98093-6, 66020-5, 58633-3 ####[facility] [id number] [place] [address] [place] FASTING TIME 13 hrs Normal [facility] Comment on above: Order Comment: Speci men Type: BLOOD SPECIMENOrdering Facility: [facility] Address: [address] [place] [address] Performed By: #### 3 051-0, 37243-2, 69827-0, 50866-7 ####[facility] [id number] [place] [address] [place] Triglyceride [Mass/Vol] 113 mg/dL Normal <150 C [facility] Comment on above: Order Comment: Speci men Type: BLOOD SPECIMENOrdering Facility: [facility] Address: [address] [place] [address] Result Comment: <150 mg/dL, Normal 150-199 mg/dL, Borderline high 200-499 mg/dL, High >499 mg/dL, Very high Performed By: #### 3 051-0, 96759-2, 15760-5, 17420-8 ####[facility] [id number] [place] [address] [place] T3Free SerPl-mCncon 02-14-20 23 Free T3 [Mass/Vol] 2.5 pg/mL Normal 2.3-4.1 [facility] Comment on above: Order Comment: Speci men Type: BLOOD SPECIMENOrdering Facility: [facility] Address: [address] [place] [address] Performed By: #### 3 051-0, 92706-1, 59281-2, 95115-8 ####[facility] [id number] [place] [address] [place] T4 Free SerPl-mCncon 023 Free T4 [Mass/Vol] 1.3 ng/dL Normal 0.9-1.7 [facility] Comment on above: Order Comment: Speci men Type: BLOOD SPECIMENOrdering Facility: [facility] Address: [address] [place] [address] Performed By: #### 2 276-4, 3024-7, 3016-3 ####[facility] [id number] [address] [place] TSH SerPl-aCncon 02-13-2023 TSH Qn 4.230 m[IU]/L High 0.270-4.200 [facility] Comment on above: Order Comment: Speci men Type: BLOOD SPECIMENOrdering Facility: [facility] Address: [address] [place] [address] Performed By: #### 2 276-4, 3024-7, 3016-3 ####[facility] [id number] [address] [facility] Vit B12 SerPl-mCncon 023 Cobalamin (Vitamin B12) [Mass/Vol] 331 pg/mL Normal 232-1245 [facility] Comment on above: Order Comment: Speci men Type: BLOOD SPECIMENOrdering Facility: [facility] Address: [place] [place] [address] Performed By: #### 2 132-9, 2284-8 ####[facility] [id number] [address] [place] CNPNon 02-10-2023 CNPN Telephone (INTMWS) STEVE VIEIRA ([id number]) 1945 F Date Time Provider Department 02/10/23 PETER ELLIS INTWS During your visit today, we recorded the following information about you: Radha Lea MA 02/10/2023 9:28 AM Signed Patient asking for lab orders to be completed prior to 02/28/23 appt. ИВАН Choudhury Liza D, MD 02/12/2023 7:15 PM Signed Filed order Barbara Villagomez RN 02/13/2023 8:16 AM Signed Left detailed vm informing patient of lab orders. Allergies As of Date: 02/10/2023 Noted Allergy Reaction CONTRAST DYE 06/02/2014 8 [...] after taking 12.5mg of meclizine Date Reviewed: 04/15/2022 Reviewed by: Olga Hess Ma - Fully Assessed Reason for Visit: Patient Update [1234] Primary Visit Diagnosis:Acquired hypothyroidism [E03.9] Other Visit Diagnoses:B12 deficiency [E53.8] Hyperlipidemia, unspecified hyperlipidemia type [E78.5] Iron deficiency anemia, unspecified iron deficiency anemia type [D50.9] Uncontrolled type 2 diabetes mellitus with hyperglycemia (HCC) [E11.65] Order(s):CBC [SQCBC] Order #: [id number] FUTURE COMP METABOLIC PANEL [SQCMP] Order #: [id number] FUTURE HGB A1C [QMRLD5Z] Order #: [id number] FUTURE LIPID PANEL BASIC [SQLIPB] Order #: [id number] FUTURE ALBUMIN/CREAT RATIO RND UR [SQUACR] Order #: [id number] FUTURE TSH BLD [SQTSH] Order #: [id number] FUTURE T4 FREE/FREE THYROX [SQFT4] Order #: [id number] FUTURE T3 FREE BLD [SQFREET3] Order #: [id number] FUTURE VITAMIN B12 BLOOD [SQB12] Order #: [id number] FUTURE IRON + TIBC [SQIRON] Order #: [id number] FUTURE FOLATE SERUM [SQSERFOL] Order #: [id number] FUTURE FERRITIN BLD [SQFERR] Order #: [id number] FUTURE Prescriptions as of 02/13/2023 - metFORMIN ER (GLUCOPHAGE XR) 500 mg [...] subcutaneously one time a week. Gets through [employer] [facility]. - empagliflozin (JARDIANCE) 25 mg tablet Take 1 tablet by mouth daily with breakfast. Gets through [employer] [facility]. - ferrous sulfate 325 mg (65 mg iron) tablet Take 325 mg by mouth once daily. - blood sugar diagnostic (BLOOD GLUCOSE TEST) test strip Test blood sugar(s) 2 times daily. Dx: Type 2 DM - Controlled E11.9 Insulin: No - Lancets lancets Test blood sugar(s) 2 daily. Dx: E11.9 Insulin: No Problem List As Of Date 02/10/2023 Noted Resolved DIABETES MELLITUS TYPE II-UNCOMPL [E11.9] [...] Uncontrolled type 2 diabetes mellitus with hype*08/13/2021 Iron deficiency anemia [D50.9] 08/13/2021 B12 deficiency [E53.8] 08/13/2021 Encounter Status:Closed by Barbara VILLAGOMEZ RN on 02/13/23 [facility] URINE CULTUREon 03-22-2019 Bacteria identified Cx Nom (U) Specimen source XXX: CLEAN VOIDED MIDSTREAM Performed at [address] [address] Service Cmnt XXX-Imp: NONE Performed at [address] [address] CC Number Ur: >100,000 CFU/mL Bacteria identified: Mixture of 3 or more organisms, no one type predominant, suggesting contamination during collection. Recollect if clinically indicated Performed at [address] [place] [address] : FINAL 03/22/2019 Normal [facility] Comment on above: Performed By: #### U ACUL #### [address] [address] C REACTIVE PROTEINon 019 CRP [Mass/Vol] Normal 0-2.0 [facility] Comment on above: Result Comment: 0.3 LESS THAN Performed at [address] [address] Performed By: #### U ACUL #### [address] [address] CKMB Isha 03-21-2019 CK.MB [Mass/Vol] 3.2 ng/mL Normal 0.0-5.0 [facility] Comment on above: Performed By: #### U ACUL #### [address] [address] CKMB % INDEX Normal 0-3.5 [facility] Comment on above: Result Comment: 1.9 Performed at [address] [address] Performed By: #### U ACUL #### [address] [address] CREATINE KINASEon 03-21-2019 CK [Catalytic activity/Vol] Normal 24-195 [facility] Comment on above: Result Comment: 167 Performed at [address] [address] Performed By: #### C K #### [address] [address] HEMOGLOBIN A1con 03-21-2019 HbA1c (Bld) [Mass fraction] High 4.0-6.0 [facility] Comment on above: Result Comment: 7.7 Hemoglobin A1C levels are related to mean blood glucose during the preceding 2-3 months. The relationship table below may be used as a general guide. Each 1% increase in HGB A1C is a reflection of an increase in mean glucose of approximately 30 mg/dl. Reference: Diabetes Care, volume 29, supplement 1 2005 HGB A1C ................. Approx. Mean Glucose 6% ............................... 120 mg/dl 7% ............................... 150 mg/dl 8% ............................... 180 mg/dl 9% ............................... 210 mg/dl 10% ............................... 240 mg/dl Performed at [address] [place] [address] Performed By: #### U ACUL #### [address] [address] HS TROPONIN Ton 03-21-2019 Troponin T.cardiac [Mass/Vol] Normal <15 [facility] Comment on above: Result Comment: 1 Performed at [address] [place] [address] Performed By: #### H STROP #### [facility] [address] [place] [address] Result Comment: 13 Sex Specific Reference Range: Male (0-22), Female (0-14) Change(Delta) >=5 is significant Troponin Baseline and Serial elevation for significant change(delta)should be interpreted in conjunction with clinical presentation, history, signs and symptoms, ECG and biomarker concentrations. Troponin elevation can be seen in several other non-infarct conditions. Chronic troponin elevations can be detected in clinically stable patients with heart failure, cardiomyopathy, renal failure, diabetes, etc. Elevated troponin can also occur in myocarditis, heart contusion, PE, drug induced cardiotoxicity, etc. Samples should NOT be taken from patients receiving high dose biotin (> 5mg) doses until 8 hours following last biotin administration. LDHon 03-21-2019 LDH Normal 91-227 [facility] Comment on above: Result Comment: 205 Performed at [address] [place] [address] Performed By: #### U ACUL #### [facility] [address] [place] [address] SEDIMENTATION RATEon 019 SEDIMENTATION RATE High 0-20 [facility] Comment on above: Result Comment: 39 Performed at [address] [place] [address] Performed By: #### U ACUL #### [address] [address] TSHon 03-21-2019 TSH Qn Normal 0.27-4.20 [facility] Comment on above: Result Comment: 2.55 Performed at [address] [address] Performed By: #### U ACUL #### [address] [address] ANGIO CHESTon 03-20-2019 ANGIO CHEST *FINAL Date of Service: 03/20/2019 21:34 Adm #: [id number] Reading Dr:MITZY LARA Signoff Dr: MITZY LARA PROCEDURE: ANGIO CHEST - ICT 5090 REASON FOR EXAM: sob ? PE RESULT: CT ANGIOGRAPHY CHEST WITH INTRAVENOUS CONTRAST (PULMONARY EMBOLISM PROTOCOL): 100 ml of non-ionic iodinated contrast was injected intravenously. CT angiography (non-coronary) of the chest was performed with Intravenous contrast material along with 3D (maximum intensity projection - MIP) image post processing. CLINICAL INFORMATION: Chest pain. PATIENT RADIATION EXPOSURE DATA: CTDI (mGy): 3.10 mGy,50.10 mGy,17.40 mGy DLP (mGy/cm): 566 mGycm FINDINGS: There is no evidence for aortic dissection or pericardial effusion. There is no evidence for pulmonary embolism. No infiltrates or effusions are identified. Chest Wall: No chest wall abnormalities are identified. Upper Abdominal Findings: There is a 5 cm hiatal hernia. Skeletal System: No acute fractures or destructive lesions are identified. IMPRESSION: No acute pathologic findings are identified. Hiatal hernia. [id number] This report has been produced using speech recognition. This exam is available in DICOM format to non-affiliated healthcare facilities on a secure media free searchable basis with prior patient authorization. The patient exposure is reported to a radiation dose index registry. All CT examinations are performed with one or more of the following dose reduction techniques: Automated Exposure Control, Adjustment of mA and/or KV according to patient size, or use of iterative reconstruction techniques. Original Interpreting Physician: MITZY LARA M.D. Original Transcribed by/Date: [facility] Mar 20 2019 9:36P Original Electronically Signed by/Date: MITZY LARA M.D. Mar 20 2019 9:36P Addendum Interpreting Physician: Addendum Transcribed by/Date: NO ADDENDUM Addendum Electronically Signed by/Date: [facility] BRAIN WO CONTRASTon 03-20-20 19 BRAIN WO CONTRAST *FINAL Date of Service: 03/20/2019 20:05 Adm #: [id number] Reading Dr:MITZY LARA Signoff Dr: MITZY LARA PROCEDURE: BRAIN WO CONTRAST - ICT 3000 REASON FOR EXAM: asthenia RESULT: HEAD CT WITHOUT CONTRAST: CLINICAL INFORMATION: Asthenia. Fell and hit head. COMPARISON STUDY: None PATIENT RADIATION EXPOSURE DATA: CTDI (mGy): 51.70 mGy DLP (mGy/cm): 934 mGycm FINDINGS: Intracranial findings: There is no evidence for intracranial hemorrhage or mass effect. Age-related atrophy is present. Periventricular white matter hypodensity is present, most consistent with age-related change and/or white matter ischemic disease. Motion artifact does limit the quality of a few of the slices. Please note patient had right forehead. Portion of the right forehead is noted from the exam. The portion that is omitted is the outer aspect of the calvarium and soft tissues. There is hyperostosis frontalis interna which also involves this area with no evidence for fracture of the visualized portions of the calvarium. Paranasal sinuses and temporal bone findings: The visualized portions of the paranasal sinuses, mastoid air cells, and middle ear cavities are clear. Orbital findings: The visualized portions of the orbits are unremarkable. IMPRESSION: No acute intracranial pathologic findings are identified. [id number] This report has been produced using speech recognition. This exam is available in DICOM format to non-affiliated healthcare facilities on a secure media free searchable basis with prior patient authorization. The patient exposure is reported to a radiation dose index registry. All CT examinations are performed with one or more of the following dose reduction techniques: Automated Exposure Control, Adjustment of mA and/or KV according to patient size, or use of iterative reconstruction techniques. Original Interpreting Physician: MITZY LARA M.D. Original Transcribed by/Date: [facility] Mar 20 2019 8:10P Original Electronically Signed by/Date: MITZY LARA M.D. Mar 20 2019 8:10P Addendum Interpreting Physician: Addendum Transcribed by/Date: NO ADDENDUM Addendum Electronically Signed by/Date: Normal [facility] [facility] CBC with Diffon 03-20-2019 AB IMMATURE NEUT 0.02 K/UL Normal 0.0-0.1 [facility] Comment on above: Performed By: #### C BCD #### [facility] [address] [place] [address] ABS BASO 0.02 K/UL Normal 0.00-0.22 [facility] Comment on above: Performed By: #### C BCD #### [facility] [address] [place] [address] ABS EOS 0.02 K/UL Normal 0-0.45 [facility] Comment on above: Performed By: #### C BCD #### [facility] [address] [place] [address] ABS NEUTROPHILS 4.63 K/UL Normal 1.8-7.[address] [facility] Comment on above: Performed By: #### C BCD #### [facility] [address], [place] [address] ABS.NEUT.CALCULATED Normal [facility] Comment on above: Result Comment: 4.63 Performed at [facility] [address] [place] [address] Performed By: #### C BCD #### [facility] [address], [place] [address] Basophils/100 WBC (Bld) 0.40 % Normal 0-1 [facility] Comment on above: Performed By: #### C BCD #### [facility] [address], [place] [address] DIFF TYPE AUTO DIFF Normal [facility] Comment on above: Performed By: #### C BCD #### [facility] [address], [place] [address] Eosinophils/100 WBC (Bld) 0.40 % Normal 0-3 [facility] Comment on above: Performed By: #### C BCD #### [facility] [address], [place] [address] Erythrocyte distribution width (RBC) [Ratio] 15.5 % High 11.7-15.0 [facility] Comment on above: Performed By: #### C BCD #### [facility] [address], [place] [address] Hematocrit (Bld) [Volume fraction] 28.0 % Low 36-44 [facility] Comment on above: Performed By: #### C BCD #### [facility] [address], [place] [address] Hemoglobin (Bld) [Mass/Vol] 8.4 g/dL Low 12.0-15.0 [facility] Comment on above: Performed By: #### C BCD #### [facility] [address], [place] [address] Lymphocytes (Bld) [#/Vol] 0.40 10*3/uL Low 1.2-3.2 [facility] Comment on above: Performed By: #### C BCD #### [facility] [address], [place] [address] Lymphocytes/100 WBC (Bld) 7.30 % Low 20-40 [facility] Comment on above: Performed By: #### C BCD #### [facility] [address], [place] [address] MCH (RBC) [Entitic mass] 26.8 pg Normal 26-34 [facility] Comment on above: Performed By: #### C BCD #### [facility] [address], [place] [address] MCHC (RBC) [Mass/Vol] 30.0 % Low 31-37 [facility] Comment on above: Performed By: #### C BCD #### [facility] [address], [place] [address] MCV (RBC) [Entitic vol] 89.2 fL Normal 80-100 [facility] Comment on above: Performed By: #### C BCD #### [facility] [address], [place] [address] MEAN PLT VOL 10.7 CU Normal 7.0-12.6 [facility] Comment on above: Performed By: #### C BCD #### [facility] [address], [place] [address] Monocytes (Bld) [#/Vol] 0.36 10*3/uL Normal 0-0.8 [facility] Comment on above: Performed By: #### C BCD #### [facility] [address], [place] [address] Monocytes/100 WBC (Bld) 6.60 % Normal 0-8 [facility] Comment on above: Performed By: #### C BCD #### [facility] [address], [place] [address] Neutrophils/100 WBC (Bld) 0.40 % Normal 0.0-1.0 [facility] Comment on above: Performed By: #### C BCD #### [facility] [address], [place] [address] Neutrophils/100 WBC (Bld) 84.90 % High 50-70 [facility] Comment on above: Performed By: #### C BCD #### [facility] [address], [place] [address] NRBC'S 0 /100 WBC Normal 0 [facility] Comment on above: Performed By: #### C BCD #### [facility] [address], [place] [address] Platelets (Bld) [#/Vol] 152 10*3/uL Normal 150-450 [facility] Comment on above: Performed By: #### C BCD #### [facility] [address], [place] [address] RBC (Bld) [#/Vol] 3.14 M/UL Low 4.0-4.9 [facility] Comment on above: Performed By: #### C BCD #### [facility] [address] [place] [address] RDW-SD 50.2 FL Normal 37.0-54.0 [facility] Comment on above: Performed By: #### C BCD #### [facility] [address] [place] [address] WBC (Bld) [#/Vol] 5.5 10*3/uL Normal 4.5-11.0 [facility] Comment on above: Performed By: #### C BCD #### [facility] [address] [place] [address] COMPREHENSIVE METABOLIC PANE Fredrick 03-20-2019 Albumin [Mass/Vol] 4.2 g/dL Normal 3.5-5.0 [facility] Comment on above: Performed By: #### C NIGHT BAKER #### [facility] [address] [place] [address] Albumin/Globulin [Mass ratio] 1.6 {ratio} Normal 1.5-3.0 [facility] Comment on above: Performed By: #### C NIGHT BAKER #### [facility] [address] [place] [address] ALP [Catalytic activity/Vol] 80 U/L Normal 35-125 [facility] Comment on above: Performed By: #### C NIGHT BAKER #### [facility] [address] [place] [address] ALT [Catalytic activity/Vol] 13 U/L Normal 5-40 [facility] Comment on above: Performed By: #### C NIGHT BAKER #### [facility] [address] [place] [address] Anion gap [Moles/Vol] 16 mmol/L Normal 0-19 [facility] Comment on above: Performed By: #### C NIGHT BAKER #### [facility] [address], [place] [address] AST [Catalytic activity/Vol] 24 U/L Normal 5-40 [facility] Comment on above: Performed By: #### C NIGHT BAKER #### [facility] [address], [place] [address] Bilirubin [Mass/Vol] 0.4 mg/dL Normal 0.1-1.2 [facility] Comment on above: Performed By: #### C NIGHT BAKER #### [facility] [address], [place] [address] Calcium [Mass/Vol] 9.1 mg/dL Normal 8.5-10.4 [facility] Comment on above: Performed By: #### C NIGHT BAKER #### [facility] [address], [place] [address] Chloride [Moles/Vol] 105 mmol/L Normal 97-107 [facility] Comment on above: Performed By: #### C NIGHT BAKER #### [facility] [address], [place] [address] CO2 [Moles/Vol] 19 mmol/L Low 24-[address] [facility] Comment on above: Performed By: #### C NIGHT BAKER #### [facility] [address], [place] [address] Creatinine [Mass/Vol] 1.1 mg/dL Normal 0.4-1.6 [facility] Comment on above: Performed By: #### C NIGHT BAKER #### [facility] [address], [place] [address] GFR/1.73 sq M.predicted MDRD (S/P/Bld) [Vol rate/Area] Normal [facility] Comment on above: Result Comment: 51 GFR ml/min/1.73m2 Stage ----- 90 1 60-89 2 30-59 3 15-29 4 <15 5 For -Americans, multiply EGFR result by 1.210 Calculation not validated for patients under 18 years of age. Performed at [facility] [address] [facility] [place] [address] Performed By: #### C NIGHT BAKER #### [facility] [address], [place] [address] Globulin (S) [Mass/Vol] 2.7 g/dL Normal 1.9-3.7 [facility] Comment on above: Performed By: #### C NIGHT BAKER #### [facility] [address], [place] [address] Glucose [Mass/Vol] 177 mg/dL High 65-99 [facility] Comment on above: Performed By: #### C NIGHT BAKER #### [facility] [address], [place] [address] Potassium [Moles/Vol] 3.9 mmol/L Normal 3.4-5.1 [facility] Comment on above: Performed By: #### C NIGHT BAKER #### [facility] [address], [place] [address] Protein [Mass/Vol] 6.9 g/dL Normal 5.9-7.9 [facility] Comment on above: Performed By: #### C NIGHT BAKER #### [facility] [address], [place] [address] Sodium [Moles/Vol] 140 mmol/L Normal 133-145 [facility] Comment on above: Performed By: #### C NIGHT BAKER #### [facility] [address], [place] [address] Urea nitrogen [Mass/Vol] 27 mg/dL High 8-25 [facility] Comment on above: Performed By: #### C NIGHT BAKER #### [facility] [address], [place] [address] Urea nitrogen/Creatinine [Mass ratio] 24.5 RATIO High 8-21 [facility] Comment on above: Performed By: #### C NIGHT BAKER #### [facility] [address], [place] [address] D-DIMERon 03-20-2019 D-DIMER High 0.19-0.50 [facility] Comment on above: Result Comment: 1.51 THROMBOEMBOLIC EVENTS CANNOT BE EXCLUDED SOLELY ON THE BASIS OF THE D-DIMER LEVEL BEING WITHIN THE NORMAL REFERENCE RANGE. D-DIMER LEVELS LESS THAN 0.5 MG/L FEU IN CONJUNCTION WITH A LOW CLINICAL PROBABILITY HAVE AN EXCELLENT NEGATIVE PREDICTIVE VALUE IN EXCLUDING A DIAGNOSIS OF PULMONARY EMBOLUS (PE) OR DEEP VEIN THROMBOSIS (DVT). ELEVATED D-DIMER LEVELS ARE NOT SPECIFIC TO PE OR DVT, AND MAY BE SEEN IN PATIENTS WITH DIC, ADVANCED AGE, , MALIGNANCY, LIVER DISEASE, INFECTION, AND INFLAMMATORY CONDITIONS AMONG OTHERS. D-DIMER LEVELS MAY BE DECREASED IN PATIENTS RECEIVING ANTI-COAGULATION THERAPY. Performed at [address] [address] Performed By: #### D DMR #### [address] [address] HS TROPONIN Ton 03-20-2019 Troponin T.cardiac [Mass/Vol] Normal <15 [facility] Comment on above: Result Comment: No p revious result Performed at [place] [address] Performed By: #### H STROP #### [place] [address] Result Comment: 12 Sex Specific Reference Range: Male (0-22), Female (0-14) Change(Delta) >=5 is significant Troponin Baseline and Serial elevation for significant change(delta)should be interpreted in conjunction with clinical presentation, history, signs and symptoms, ECG and biomarker concentrations. Troponin elevation can be seen in several other non-infarct conditions. Chronic troponin elevations can be detected in clinically stable patients with heart failure, cardiomyopathy, renal failure, diabetes, etc. Elevated troponin can also occur in myocarditis, heart contusion, PE, drug induced cardiotoxicity, etc. Samples should NOT be taken from patients receiving high dose biotin (> 5mg) doses until 8 hours following last biotin administration. PROTHROMBIN TIMEon 9 INR Coag (PPP) [Relative time] Normal 0.86-1.16 [facility] Comment on above: Result Comment: 1.1 INR Theraputic Range: 2.0-3.5 Performed at [address] [address] Performed By: #### P TB #### [place] [address] PT Coag (PPP) [Time] 11.4 s Normal 9.3-12.7 [facility] Comment on above: Performed By: #### P TB #### [address] [address] PT Coag (PPP) [Time] INFORMATION NOT REPORTED TO LABORATORY Normal [facility] Comment on above: Performed By: #### P TB #### [address] [address] UA-REFLEX TO CULTUREon 03-20 RBC (Bld) [#/Vol] High 0-3 [facility] Comment on above: Result Comment: 85 CORRECTED ON 03/20 AT 2021: PREVIOUSLY REPORTED NONE SEEN Performed By: #### U ACUL #### [facility] [address], [place] [address] BACT Positive Normal [facility] Comment on above: Performed By: #### U ACUL #### [facility] [address], [place] [address] MICROSCOPIC AUTOMATIC MICROSCOPI C URINES Normal [facility] Comment on above: Performed By: #### U ACUL #### [facility] [address], [place] [address] URINE HYALINE CAST 12 /LPF Normal [facility] Comment on above: Performed By: #### U ACUL #### [facility] [address], [place] [address] URINE SQUAMOUS EPI MODERATE Normal [facility] Comment on above: Performed By: #### U ACUL #### [facility] [address], [place] [address] WBC 11 /HPF High 0-3 [facility] Comment on above: Performed By: #### U ACUL #### [facility] [address], [place] [address] Bacteria identified Cx Nom (U) [facility] Comment on above: Result Comment: CULT URE BEING ORDERED BASED ON LEUKOCYTE ESTERASE Performed at [facility] [address] [place] [address] Performed By: #### U ACUL #### [facility] [address], [place] [address] BILI Negative Normal NEG [facility] Comment on above: Performed By: #### U ACUL #### [facility] [address], [place] [address] BLOOD MODERATE Abnormal NEG [facility] Comment on above: Performed By: #### U ACUL #### [facility] [address], [place] [address] Clarity (U) HAZY Normal [facility] Comment on above: Performed By: #### U ACUL #### [facility] [address], [place] [address] Color (U) YELLOW Normal [facility] Comment on above: Performed By: #### U ACUL #### [facility] [address], [place] [address] GLUC 300 mg/dL Abnormal NEG [facility] Comment on above: Performed By: #### U ACUL #### [facility] [address], [place] [address] KET TRACE Abnormal NEG [facility] Comment on above: Performed By: #### U ACUL #### [facility] [address], [place] [address] LEUK SMALL Abnormal NEG [facility] Comment on above: Performed By: #### U ACUL #### [facility] [address], [place] [address] NIT Negative Normal NEG [facility] Comment on above: Performed By: #### U ACUL #### [facility] [address], [place] [address] pH (U) 5.5 [pH] Normal 4.6-8.0 [facility] Comment on above: Performed By: #### U ACUL #### [facility] [address], [place] [address] PROT 50 mg/dL Abnormal NEG [facility] Comment on above: Performed By: #### U ACUL #### [facility] [address], [place] [address] SP GRAV,URINE 1.031 High 1.005-1.030 [facility] Comment on above: Performed By: #### U ACUL #### [facility] [address], [place] [address] URO 2.0 MG/DL High 0-1.0 [facility] Comment on above: Performed By: #### U ACUL #### [facility] [address], [place] [address] No Panel Information [facility] Vital Signs Date Time Vital Sign Value Performing Clinician Facility 03-03-2025 16:20-0400 Body temperature 101 [degF] Dr. Peter Ellis MD Work Phone: [facility] 03-03-2025 16:20-0400 Diastolic blood pressure 74 mm[Hg] Dr. Peter Ellis MD Work Phone: [facility] 03-03-2025 16:20-0400 Heart rate 112 /min Dr. Peter Ellis MD Work Phone: [facility] 03-03-2025 16:20-0400 Respiratory rate 17 /min Dr. Peter Ellis MD Work Phone: 1(628)504-097543 [place] [address] 03-03-2025 16:20-0400 SaO2% (BldA) [Mass fraction] 100 % Dr. Peter Ellis MD Work Phone: 4(960)437-433343 [place] [address] 03-03-2025 16:20-0400 Systolic blood pressure 127 mm[Hg] Dr. Peter Ellis MD Work Phone: 2(439)485-069333 [place] [address] 03-03-2025 15:22-0400 Inhaled oxygen concentration 60 % Dr. Peter Ellis MD Work Phone: 2(571)134-921833 [place] [address] 03-03-2025 14:20-0400 Inhaled oxygen flow rate 10 L/min Dr. Peter Ellis MD Work Phone: 8(196)152-362933 [place] [address] 03-03-2025 14:11-0400 Body height 149.[address] Peter Ellis MD Work Phone: 8(554)263-457833 [place] [address] 03-03-2025 14:11-0400 Body mass index (BMI) [Ratio] 37.6 kg/m2 Dr. Peter Ellis MD Work Phone: 7(808)161-893533 [place] [address] 03-03-2025 14:11-0400 Body weight 84.[address] Peter Ellis MD Work Phone: [facility] 11-12-2023 14:30-0400 Body temperature 97.59 [degF] Peter Ellis MD Work Phone: [facility] 11-12-2023 14:30-0400 Diastolic blood pressure 72 mm[Hg] Peter Ellis MD Work Phone: [facility] 11-12-2023 14:30-0400 Heart rate 93 /min Peter Ellis MD Work Phone: [facility] 11-12-2023 14:30-0400 Respiratory rate 18 /min Peter Ellis MD Work Phone: [facility] 11-12-2023 14:30-0400 SaO2% (BldA) [Mass fraction] 100 % Peter Ellis MD Work Phone: [facility] 11-12-2023 14:30-0400 Systolic blood pressure 124 mm[Hg] Peter Ellis MD Work Phone: [facility] 08-16-2023 16:38-0500 Body temperature 98.3 [degF] Dr. Peter Ellis Work Phone: [facility] 08-16-2023 16:38-0500 Diastolic blood pressure 57 mm[Hg] Dr. Peter Ellis Work Phone: [facility] 08-16-2023 16:38-0500 Heart rate 75 /min Dr. Peter Ellis Work Phone: 6(265)666-329543 [place] [address] 08-16-2023 16:38-0500 Respiratory rate 16 /min Dr. Peter Ellis Work Phone: [facility] 08-16-2023 16:38-0500 SaO2% (BldA) [Mass fraction] 99 % Dr. Peter Ellis Work Phone: [facility] 08-16-2023 16:38-0500 Systolic blood pressure 118 mm[Hg] Dr. Peter Ellis Work Phone: [facility] 08-16-2023 04:40-0500 Body mass index (BMI) [Ratio] 27.6 kg/m2 Dr. Peter Ellis Work Phone: [facility] 08-16-2023 04:40-0500 Body weight 62.[address] Peter Ellis Work Phone: 5(785)075-810943 [place] [address] 08-15-2023 10:09-0500 Body height 149.[address] Peter Ellis Work Phone: 5(815)014-843743 [place] [address] 08-15-2023 01:21-0500 Body temperature 97.8 [degF] Dr. Peter Ellis Work Phone: 6(729)579-297633 [place] [address] 08-15-2023 01:21-0500 Diastolic blood pressure 68 mm[Hg] Dr. Peter Ellis Work Phone: 2(389)361-375233 [place] [address] 08-15-2023 01:21-0500 Heart rate 68 /min Dr. Peter Ellis Work Phone: 6(174)413-390033 [place] [address] 08-15-2023 01:21-0500 Respiratory rate 15 /min Dr. Peter Ellis Work Phone: 2(863)284-113733 [place] [address] 08-15-2023 01:21-0500 SaO2% (BldA) [Mass fraction] 95 % Dr. Peter Ellis Work Phone: 0(932)170-289633 [place] [address] 08-15-2023 01:21-0500 Systolic blood pressure 129 mm[Hg] Dr. Peter Ellis Work Phone: 4(001)843-201033 [place] [address] 08-15-2023 00:16-0500 Body mass index (BMI) [Ratio] 29 kg/m2 Dr. Peter Ellis Work Phone: 3(361)974-004433 [place] [address] 08-15-2023 00:16-0500 Body weight 65.[address] Peter Ellis Work Phone: 8(383)741-952733 [place] [address] 08-14-2023 22:23-0500 Body height 149.[address] Peter Ellis Work Phone: 0(581)214-848133 [place] [address] 08-12-2023 14:15-0500 Body temperature 99.1 [degF] Dr. Peter Ellis Work Phone: 0(897)138-865633 [place] [address] 08-12-2023 14:15-0500 Diastolic blood pressure 87 mm[Hg] Dr. Peter Ellis Work Phone: 7(311)020-878433 [place] [address] 08-12-2023 14:15-0500 Heart rate 88 /min Dr. Peter Ellis Work Phone: 1(941)019-482133 [place] [address] 08-12-2023 14:15-0500 Respiratory rate 16 /min Dr. Peter Ellis Work Phone: 1(553)723-632333 [place] [address] 08-12-2023 14:15-0500 SaO2% (BldA) [Mass fraction] 98 % Dr. Peter Ellis Work Phone: [facility] 08-12-2023 14:15-0500 Systolic blood pressure 112 mm[Hg] Dr. Peter Ellis Work Phone: [facility] 08-12-2023 12:58-0500 Body height 149.[address] Peter Ellis Work Phone: [facility] 08-12-2023 12:58-0500 Body weight 58.[address] Peter Ellis Work Phone: [facility] 08-09-2023 22:33-0500 Body mass index (BMI) [Ratio] 26.2 kg/m2 Dr. Peter Ellis Work Phone: [facility] 02-28-2023 14:23-0400 Body temperature 97.81 [degF] Peter Ellis MD Work Phone: [facility] 02-28-2023 14:23-0400 Body weight 64.86 kg Peter Ellis MD Work Phone: [facility] 02-28-2023 14:23-0400 Diastolic blood pressure 65 mm[Hg] Peter Ellis MD Work Phone: [facility] 02-28-2023 14:23-0400 Heart rate 115 /min Peter Ellis MD Work Phone: [facility] 02-28-2023 14:23-0400 Respiratory rate 18 /min Peter Ellis MD Work Phone: [facility] 02-28-2023 14:23-0400 SaO2% (BldA) [Mass fraction] 97 % Peter Ellis MD Work Phone: [facility] 02-28-2023 14:23-0400 Systolic blood pressure 104 mm[Hg] Peter Ellis MD Work Phone: [facility] 09-21-2022 17:26-0400 Respiratory rate 18 /min [facility] 09-21-2022 14:33-0400 SaO2% (BldA) [Mass fraction] 98 % [facility] 09-21-2022 14:24-0400 Body height 149.86 cm [facility] 09-21-2022 14:24-0400 Body mass index (BMI) [Ratio] 30.1 kg/m2 [facility] 09-21-2022 14:24-0400 Body temperature 98 [degF] [facility] 09-21-2022 14:24-0400 Body weight 67.69 kg [facility] 09-21-2022 14:24-0400 Diastolic blood pressure 62 mm[Hg] [facility] 09-21-2022 14:24-0400 Heart rate 88 /min [facility] 09-21-2022 14:24-0400 Systolic blood pressure 118 mm[Hg] [facility] 08-07-2022 13:10-0500 Body height 149.86 cm [facility] 08-07-2022 13:10-0500 Body mass index (BMI) [Ratio] 29.2 kg/m2 [facility] 08-07-2022 13:10-0500 Body temperature 97.2 [degF] [facility] 08-07-2022 13:10-0500 Body weight 65.77 kg [facility] 08-07-2022 13:10-0500 Diastolic blood pressure 91 mm[Hg] [facility] 08-07-2022 13:10-0500 Heart rate 91 /min [facility] 08-07-2022 13:10-0500 Respiratory rate 16 /min [facility] 08-07-2022 13:10-0500 SaO2% (BldA) [Mass fraction] 97 % [facility] 08-07-2022 13:10-0500 Systolic blood pressure 153 mm[Hg] [facility] 12-11-2021 14:27-0400 Body weight 68.95 kg Peter Ellis MD Work Phone: [facility] 12-11-2021 14:27-0400 Diastolic blood pressure 68 mm[Hg] Peter Ellis MD Work Phone: [facility] 12-11-2021 14:27-0400 Heart rate 96 /min Peter Ellis MD Work Phone: [facility] 12-11-2021 14:27-0400 SaO2% (BldA) [Mass fraction] 97 % Peter Ellis MD Work Phone: [facility] 12-11-2021 14:27-0400 Systolic blood pressure 120 mm[Hg] Peter Ellis MD Work Phone: [facility] Encounters Encounter Date Encounter Type Care Provider Facility Start: 03-03-2025 Evaluation and manag ement of inpatient Dr. Desiree Trent MD -Intensive Care Unit Work Phone: Start: 12-14-2024 ambulatory Peter Devan Mejiaampas Facilit y:[facility] Start: 12-14-[address] Juve Dejesus MD -[facility] Start: 10-26-2024 End: 10-26-2024 ambulatory Peter D Talampas Facility:[facility] Start: 09-20-2024 End: 09-20-[address] Peter Ellis MD Work Phone: [facility] Work Phone: Start: 09-20-2024 End: 09-20-[address] Darcy Elias MD -[facility] Start: 09-20-2024 End: 09-20-2024 ambulatory Peter D Talampas Facility:[facility] Start: 06-21-2024 ambulatory Peter D Talampas Facilit y:[facility] Start: 06-21-[address] Darcy Elias MD -[facility] Start: 03-22-2024 End: 03-22-2024 ambulatory Peter Devan Mejiaampas Facility:[facility] Start: 02-05-2024 End: 02-05-2024 ambulatory Clayton DUNAWAY Facility:[facility] Start: 11-25-2023 Telephone encounter Peter ortega MD Work Phone: [facility] [address] Comment on above: Medication Problem Start: 11-14-2023 Telephone encounter Sherwin Simmons Start: 11-13-2023 Telephone encounter Peter ortega MD Work Phone: [facility] [address] Comment on above: Insurance Authorizat ion (pilar) Start: 11-12-2023 End: 11-12-2023 ambulatory PETER ELLIS Facility:[facility] Start: 11-12-2023 End: 11-12-2023 Office outpatient visit 25 minutes Peter Ellis MD Work Phone: Internal Medicine [place] Comment on above: Uncontrolled type 2 diabetes mellitus with hyperglycemia (HCC) (Primary Dx); Urinary incontinence 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 Peter Ellis Work Phone: [facility] Work Phone: Start: 09-05-2023 End: 09-05-[address] Peter Ellis Work Phone: [facility] Emergency Department, [facility] Work Phone: Start: 08-27-2023 Telephone encounter Orin heredia APRN.C T TECH Work Phone: Internal Medicine [place] Comment on above: Results Start: 08-25-2023 End: 08-25-2023 ambulatory ORIN SOSA Facility:[facility] Start: 08-16-2023 Non-patient / Non-visit Dr. Isabela Ellis Work Phone: [facility] Inpatient Physicians Work Phone: Start: 08-15-2023 End: 08-16-2023 Evaluation and management of inpatient Dr. Peter Ellis [facility] Phone: Start: 08-14-2023 Telephone encounter Peter ortega MD Work Phone: Internal Medicine [address] Comment on above: SW Update Start: 08-13-2023 Patient Outreach Peter fierro MD Work Phone: Internal Medicine [address] Comment on above: Transition Of Care [facility] HH, verbal order Start: 08-12-2023 Non-patient / Non-visit Dr. Isabela Ellis Work Phone: [facility] Inpatient Physicians Work Phone: Start: 08-11-2023 Non-patient / Non-visit Dr. Isabela Ellis Work Phone: [facility] In[facility] Phys[facility] Work Phone: Start: 08-11-2023 Telephone encounter Peter ortega MD Work Phone: Family Medicine [address] Comment on above: HH Verbal orders Start: 08-10-2023 Non-patient / Non-visit Dr. Isabela Ellis Work Phone: [facility] Work Phone: Start: 08-09-2023 Non-patient / Non-visit Dr. Isabela Ellis Work Phone: [facility] Work Phone: Start: 08-09-2023 End: 08-12-2023 Evaluation and management of inpatient Dr. Peter Ellis [facility] Work Phone: Start: 07-04-2023 End: 07-04-2023 ambulatory PETER ELLIS Facility:[facility] Start: 04-21-2023 Telephone encounter Sherwin BALLESTEROS Navigation Comment on above: pt assistance forms Start: 03-04-2023 Telephone encounter Sherwin Chinedu Simmons Start: 02-28-2023 End: 02-28-2023 Office outpatient visit 25 minutes Peter Ellis MD Work Phone: Internal Medicine [address] Comment on above: Acquired hypothyroid ism (Primary Dx); Type 2 diabetes mellitus without complication, without long-term current use of insulin (HCC); Iron deficiency anemia, unspecified iron deficiency anemia type; B12 deficiency; Vitamin D deficiency; Encounter for long-term current use of medication Start: 02-28-2023 End: 02-28-2023 ambulatory PETER ELLIS Facility:[facility] Start: 02-13-2023 End: 02-13-2023 ambulatory PETER ELLIS Facility:[facility] Start: 02-10-2023 Telephone encounter Peter ortega MD Work Phone: Internal Medicine [address] Comment on above: Patient Update Start: 09-21-2022 End: 09-21-2022 [facility] Start: 09-12-2022 Telephone encounter Jadon eden [facility] Work Phone: [facility] Comment on above: Adherence Packaging Start: 09-12-2022 End: 09-12-2022 ambulatory Jadonlyle Delgado [facility] Work Phone: [facility] Comment on above: Medication managemen t (Primary Dx); Type 2 diabetes mellitus without complication, without long-term current use of insulin (HCC); Hyperlipidemia, unspecified hyperlipidemia type Start: 09-12-2022 End: 09-12-2022 Telemedicine consultation with patient Jadon Delgado [facility] Work Phone: [facility] Start: 08-07-2022 End: 08-07-2022 [facility] Start: 07-25-2022 End: 07-25-2022 Patient encounter procedure Jadon Delgado [facility] Work Phone: [facility] Comment on above: Type 2 diabetes angelica itus without complication, without long- term current use of insulin (HCC) (Primary Dx); Medication management Start: 07-09-2022 Telephone encounter Peter ortega MD Work Phone: Internal Medicine [place] Comment on above: pt assistance moi resendiz Start: 06-20-2022 Telephone encounter Sherwin Jimenez Navigation Comment on above: Social Work Services Start: 06-20-2022 End: 06-20-2022 Patient encounter procedure Jadon Delgado [facility] Work Phone: [facility] Comment on above: Controlled type 2 di abetes mellitus without complication, without long-term current use of insulin (HCC) (Primary Dx); Medication management Start: 05-30-2022 Telephone encounter Jadon eden [facility] Work Phone: [facility] Comment on above: Forms ([employer] PAP Application renewal 2022) Start: 05-17-2022 Refill Peter martin MD Work Phone: Family Medicine [place] Comment on above: Refill Request Start: 04-29-2022 Telephone encounter Jadon eden [facility] Work Phone: [facility] Comment on above: Appointment Start: 04-16-2022 Telephone encounter Ceci Mehta on [facility] Comment on above: Primary Care Pharmac y Appt. Start: 01-09-2022 End: 01-09-2022 Patient encounter procedure Harsha Ortiz MD Work Phone: Ophthalmology Comment on above: Combined forms of ag e-related cataract of both eyes (Primary Dx); Type 2 diabetes mellitus without retinopathy (HCC); [id number] corneal dystrophy of both eyes Start: 12-11-2021 End: 12-11-2021 Office outpatient visit 25 minutes Peter Ellis MD Work Phone: [facility] [place] Comment on above: Uncontrolled type 2 diabetes mellitus with hyperglycemia (HCC) (Primary Dx); Recurrent kidney stones; Esophageal reflux; Depression, unspecified depression type; Hyperlipidemia, unspecified hyperlipidemia type; Acquired hypothyroidism; B12 deficiency; Encounter for long-term current use of medication; Iron deficiency anemia, unspecified iron deficiency anemia type Start: 09-19-2021 Telephone encounter Maciej Jessica [facility] Work Phone: [facility] Comment on above: Opened In Error Procedures Date Procedure Procedure Detail Performing Clinician Start: 03-03-2025 Carbon dioxide measu rement, partial pressure Dr. Peter Ellis MD Work Phone: Start: 03-03-2025 Gases blood o2 satur ation only direct sonu Dr. Peter Ellis MD Work Phone: Start: 03-03-2025 Measurement of parti al pressure of oxygen in blood Dr. Peter Ellis MD Work Phone: Start: 03-03-[address] Peter Ellis MD Work Phone: Start: 03-03-2025 Urnls dip stick/tabl et reagent auto microscopy Dr. Peter Ellis MD Work Phone: Start: 03-03-2025 Plain chest X-ray Dr. Ciaran Ellis MD Work Phone: Start: 03-03-[address] Peter Ellis MD Work Phone: Start: 03-03-2025 SARS-CoV-2, Influenz a & RSV (PCR) Dr. Peter Ellis MD Work Phone: Start: 12-14-2024 Vitamin D, 25-hydrox y measurement Dr. Peter Ellis MD Work Phone: Comment on above: Vitamin D StatusDefi ciency: <20 ng/mL (50nmol/L)Insufficiency: 20-30 ng/mL (50-75 nmol/L)Sufficiency: 30-100 ng/mL (75-250 nmol/L)Toxicity: >100 ng/mL (>250 nmol/L) Start: 09-05-[address] Peter Ellis Work Phone: Start: 08-14-[address] Peter Ellis Work Phone: Start: 08-09-2023 SARS-CoV-2, Influenz a & RSV (PCR) Dr. Peter Ellis Work Phone: Start: 08-09-2023 Plain chest X-ray Dr. Ciaran Ellis Work Phone: Start: 08-09-2023 CT of head without contrast Dr. Peter Ellis Work Phone: Start: 01-09-2022 IOL BIOMETRY W/ IOL CALC OU (BOTH EYES) Harsha Ortiz MD Work Phone: Start: 01-09-2022 End: 01-09-2022 Computerized ophthalmic imaging retina Harsha Ortiz MD Work Phone: Start: 08-13-2021 Adult depression scr eening assessment Maciej Lopez [facility] Work Phone: Start: 03-20-2019 Electrocardiogram Plan of Treatment Date Care Activity Detail Author Start: 03-03-2025 [facility] Start: 03-03-2025 Admission procedure [facility] Start: 03-03-2025 Hospital admission, emergency, from emergency room, medical nature [facility] Start: 03-03-2025 Computed tomography of abdomen and pelvis with intravenous contrast Abdomen/Pelvis W IV Cont ONLY [facility] Start: 03-03-2025 Airway suction technique [facility] Start: 03-03-2025 Creatine kinase [Enz ymatic activity/volume] in Serum or Plasma [facility] Start: 03-03-2025 Triglycerides measurement [facility] Start: 03-03-2025 Consultation [facility] Start: 03-03-2025 End: 03-03-2025 [facility] Start: 03-03-2025 Bacteria identified in Blood by Culture Blood Culture [facility] Start: 03-03-2025 Bacteria identified in Urine by Culture Urine Culture [facility] Start: 03-03-2025 Microscopic observat ion [Identifier] in Unspecified specimen by Gram stain [facility] Start: 03-03-2025 Respiratory Culture Respiratory Cult ure [facility] Start: 03-03-2025 [facility] Start: 11-11-2024 Annual PCP Team [employer]ht[employer] Worker Helper debbie Disease Visit Annual PCP Team Chronic Disease Visit [facility] Start: 08-25-2024 Annual PCP Team Washt[employer] Worker Helper debbie Disease Visit Annual PCP Team Chronic Disease Visit [facility] Start: 02-29-2024 ANNUAL PCP TEAM ROTARY DRILLER PROSPECTING DEBBIE DISEASE VISIT ANNUAL PCP TEAM CHRONIC DISEASE VISIT [facility] Start: 02-14-2024 Hepatitis B screening URINE ALBUMIN:CREATININE RATIO [facility] Start: 02-14-2024 Hepatitis B surface antibody level LDL CHOLESTEROL [facility] Start: 01-31-2024 Hemoglobin A1c measurement HbA1C [facility] Start: 11-23-2023 Hemoglobin A1c measurement HbA1C [facility] Start: 11-12-2023 End: 11-12-2023 Patient encounter procedure 11/12/2023 2:00 PM EDT Office Visit [facility] [address] [place], [place] [address] Peter Ellis MD [address] [place], [place] [address] 4 month follow up [facility] [place] Comment on above: 4 month follow up Start: 10-31-2023 End: 01-30-2024 Comprehensive metabolic 2000 panel - Serum or Plasma [facility] Work Phone: Comment on above: Expected: 10/31/2023 , Expires: 01/30/2024 Start: 10-31-2023 End: 01-30-2024 Ferritin [Mass/volume] in Serum or Plasma [facility] Comment on above: Expected: 10/31/2023 , Expires: 01/30/2024 Start: 10-31-2023 End: 01-30-2024 Hemoglobin A1c in Blood [facility] Comment on above: Expected: 10/31/2023 , Expires: 01/30/2024 Start: 10-31-2023 End: 01-30-2024 Iron and Iron binding capacity panel - Serum or Plasma [facility] Comment on above: Expected: 10/31/2023 , Expires: 01/30/2024 Start: 10-31-2023 End: 01-30-2024 Thyrotropin [Units/volume] in Serum or Plasma [facility] Comment on above: Expected: 10/31/2023 , Expires: 01/30/2024 Start: 10-31-2023 End: 01-30-2024 Thyroxine (T4) free [Mass/volume] in Serum or Plasma [facility] Comment on above: Expected: 10/31/2023 , Expires: 01/30/2024 Start: 10-31-2023 End: 01-30-2024 Triiodothyronine (T3) Free [Mass/volume] in Serum or Plasma [facility] Comment on above: Expected: 10/31/2023 , Expires: 01/30/2024 Start: 10-03-2023 Hemoglobin A1c measurement HbA1C [facility] Start: 08-16-2023 Patient discharge [facility] Start: 08-15-2023 Application of intermittent pneumatic compression device [facility] Start: 08-15-2023 Following clinical p athway protocol [facility] Start: 08-15-2023 Assessment of risk o f venous thromboembolism [facility] Start: 08-15-2023 Insertion of cathete r into peripheral vein [facility] Start: 08-15-2023 Measuring intake and output [facility] Start: 08-15-2023 Oxygen therapy [facility] Start: 08-15-2023 Providing care accor ding to standard [facility] Start: 08-15-2023 Provision of activit y privileges [facility] Start: 08-15-2023 Referral to occupati onal therapist [facility] Start: 08-15-2023 Referral to service [facility] Start: 08-15-2023 [facility] Start: 08-15-2023 Verification routine [facility] Start: 08-15-2023 Admission procedure [facility] Start: 08-15-2023 Hospital admission, emergency, from emergency room, medical nature [facility] Start: 08-15-2023 [facility] Start: 08-15-2023 Consultation [facility] Start: 08-14-2023 [facility] Start: 08-14-2023 Bacteria identified in Urine by Culture [facility] Start: 08-14-2023 Urine culture Urine Culture [facility] Start: 08-12-2023 Patient discharge [facility] Start: 08-12-2023 Referral to service [facility] Start: 08-11-2023 Administration of bl ood product [facility] Start: 08-11-2023 Referral to service [facility] Start: 08-09-2023 [facility] Start: 08-09-2023 [facility] Start: 08-09-2023 Following clinical p athway protocol [facility] Start: 08-09-2023 Ambulation without limitation [facility] Start: 08-09-2023 Assessment of risk o f venous thromboembolism [facility] Start: 08-09-2023 Care regimes management [facility] Start: 08-09-2023 Inhalation therapy procedure [facility] Start: 08-09-2023 Insertion of cathete r into peripheral vein [facility] Start: 08-09-2023 Notification of physician [facility] Start: 08-09-2023 Providing care accor ding to standard [facility] Start: 08-09-2023 Referral to occupati onal therapist [facility] Start: 08-09-2023 Referral to service [facility] Start: 08-09-2023 [facility] Start: 08-09-2023 Admission procedure [facility] Start: 08-09-2023 [facility] Start: 08-09-2023 Consultation [facility] Start: 08-09-2023 [facility] Start: 2023 End: 08-30-2023 25-hydroxyvitamin D3 [Mass/volume] in Serum or Plasma VITAMIN D 25 HYDROXY Lab Routine Vitamin D deficiency Expected: 2023 (Approximate), Expires: 08/30/2023 [facility] Work Phone: Comment on above: Expected: 2023 (Approximate), Expires: 08/30/2023 Start: 2023 Advance Directive Discussion Advance Directive Discussion [facility] Start: 2023 Behavioral Health Screening Behavioral Health Screening [facility] Start: 2023 End: 08-30-2023 CBC panel - Blood by Automated count CBC Lab Routine Encounter for long-term current use of medication Expected: 2023 (Approximate), Expires: 08/30/2023 [facility] Work Phone: Comment on above: Expected: 2023 (Approximate), Expires: 08/30/2023 Start: 2023 End: 08-30-2023 Comprehensive metabolic 2000 panel - Serum or Plasma COMP METABOLIC PANEL Lab Routine Encounter for long-term current use of medication Expected: 2023 (Approximate), Expires: 08/30/2023 [facility] Work Phone: Comment on above: Expected: 2023 (Approximate), Expires: 08/30/2023 Start: 2023 Depression Assessment Depression Ass essment [facility] Start: 2023 End: 08-30-2023 Hemoglobin A1c in Blood HGB A1C Lab Routine Type 2 diabetes mellitus without complication, without long-term current use of insulin (HCC) Expected: 2023 (Approximate), Expires: 08/30/2023 [facility] Work Phone: Comment on above: Expected: 2023 (Approximate), Expires: 08/30/2023 Start: 2023 End: 08-30-2023 Thyrotropin [Units/volume] in Serum or Plasma TSH BLD Lab Routine Acquired hypothyroidism Expected: 2023 (Approximate), Expires: 08/30/2023 [facility] Work Phone: Comment on above: Expected: 2023 (Approximate), Expires: 08/30/2023 Start: 2023 End: 08-30-2023 Thyroxine (T4) free [Mass/volume] in Serum or Plasma T4 FREE/FREE THYROX Lab Routine Acquired hypothyroidism Expected: 2023 (Approximate), Expires: 08/30/2023 [facility] Work Phone: Comment on above: Expected: 2023 (Approximate), Expires: 08/30/2023 Start: 2023 End: 08-30-2023 Triiodothyronine (T3) Free [Mass/volume] in Serum or Plasma T3 FREE BLD Lab Routine Acquired hypothyroidism Expected: 2023 (Approximate), Expires: 08/30/2023 [facility] Work Phone: Comment on above: Expected: 2023 (Approximate), Expires: 08/30/2023 Start: 05-16-2023 Hemoglobin A1c/Hemoglobin.total in Blood HBA1C [facility] Start: 04-15-2023 ANNUAL PCP TEAM ROTARY DRILLER PROSPECTING DEBBIE DISEASE VISIT ANNUAL PCP TEAM CHRONIC DISEASE VISIT [facility] Start: 03-28-2023 End: 05-28-2023 CBC W Auto Differential panel - Blood CBC + DIFF Lab Routine Iron deficiency anemia, unspecified iron deficiency anemia type Expected: 03/28/2023 (Approximate), Expires: 05/28/2023 [facility] Work Phone: Comment on above: Expected: 03/28/2023 (Approximate), Expires: 05/28/2023 Start: 03-28-2023 End: 05-28-2023 Cobalamin (Vitamin B12) [Mass/volume] in Serum or Plasma VITAMIN B12 BLOOD Lab Routine B12 deficiency Expected: 03/28/2023 (Approximate), Expires: 05/28/2023 [facility] Work Phone: Comment on above: Expected: 03/28/2023 (Approximate), Expires: 05/28/2023 Start: 03-28-2023 End: 05-28-2023 Ferritin [Mass/volume] in Serum or Plasma FERRITIN BLD Lab Routine Iron deficiency anemia, unspecified iron deficiency anemia type Expected: 03/28/2023 (Approximate), Expires: 05/28/2023 [facility] Work Phone: Comment on above: Expected: 03/28/2023 (Approximate), Expires: 05/28/2023 Start: 03-28-2023 End: 05-28-2023 Iron and Iron binding capacity panel - Serum or Plasma IRON + TIBC Lab Routine Iron deficiency anemia, unspecified iron deficiency anemia type Expected: 03/28/2023 (Approximate), Expires: 05/28/2023 [facility] Work Phone: Comment on above: Expected: 03/28/2023 (Approximate), Expires: 05/28/2023 Start: 02-28-2023 Covid-19 Vaccine ( season) Covid-19 Vaccine ( season) [facility] Start: 02-28-2023 Influenza vaccination [facility] Start: 02-12-2023 End: 04-14-2023 ALBUMIN/CREAT RATIO RND UR ALBUMIN/CREAT RATIO RND UR Lab Routine Uncontrolled type 2 diabetes mellitus with hyperglycemia (HCC) Expected: 02/12/2023, Expires: 04/14/2023 [facility] Work Phone: Comment on above: Expected: 02/12/2023 , Expires: 04/14/2023 Start: 02-12-2023 End: 04-14-2023 Cobalamin (Vitamin B12) [Mass/volume] in Serum or Plasma VITAMIN B12 BLOOD Lab Routine B12 deficiency Expected: 02/12/2023, Expires: 04/14/2023 [facility] Work Phone: Comment on above: Expected: 02/12/2023 , Expires: 04/14/2023 Start: 02-12-2023 End: 04-14-2023 Comprehensive metabolic 2000 panel - Serum or Plasma COMP METABOLIC PANEL Lab Routine Uncontrolled type 2 diabetes mellitus with hyperglycemia (HCC) Expected: 02/12/2023, Expires: 04/14/2023 [facility] Work Phone: Comment on above: Expected: 02/12/2023 , Expires: 04/14/2023 Start: 02-12-2023 End: 04-14-2023 Ferritin [Mass/volume] in Serum or Plasma FERRITIN BLD Lab Routine Iron deficiency anemia, unspecified iron deficiency anemia type Expected: 02/12/2023, Expires: 04/14/2023 [facility] Work Phone: Comment on above: Expected: 02/12/2023 , Expires: 04/14/2023 Start: 02-12-2023 End: 04-14-2023 Folate [Mass/volume] in Serum or Plasma FOLATE SERUM Lab Routine B12 deficiency Iron deficiency anemia, unspecified iron deficiency anemia type Expected: 02/12/2023, Expires: 04/14/2023 [facility] Work Phone: Comment on above: Expected: 02/12/2023 , Expires: 04/14/2023 Start: 02-12-2023 End: 04-14-2023 Hemoglobin A1c in Blood HGB A1C Lab Routine Uncontrolled type 2 diabetes mellitus with hyperglycemia (HCC) Expected: 02/12/2023, Expires: 04/14/2023 [facility] Work Phone: Comment on above: Expected: 02/12/2023 , Expires: 04/14/2023 Start: 02-12-2023 End: 04-14-2023 Iron and Iron binding capacity panel - Serum or Plasma IRON + TIBC Lab Routine Iron deficiency anemia, unspecified iron deficiency anemia type Expected: 02/12/2023, Expires: 04/14/2023 [facility] Work Phone: Comment on above: Expected: 02/12/2023 , Expires: 04/14/2023 Start: 02-12-2023 End: 04-14-2023 Lipid 1996 panel - Serum or Plasma LIPID PANEL BASIC Lab Routine Hyperlipidemia, unspecified hyperlipidemia type Uncontrolled type 2 diabetes mellitus with hyperglycemia (HCC) Expected: 02/12/2023, Expires: 04/14/2023 [facility] Work Phone: Comment on above: Expected: 02/12/2023 , Expires: 04/14/2023 Start: 02-12-2023 End: 04-14-2023 Thyrotropin [Units/volume] in Serum or Plasma TSH BLD Lab Routine Acquired hypothyroidism Expected: 02/12/2023, Expires: 04/14/2023 [facility] Work Phone: Comment on above: Expected: 02/12/2023 , Expires: 04/14/2023 Start: 02-12-2023 End: 04-14-2023 Thyroxine (T4) free [Mass/volume] in Serum or Plasma T4 FREE/FREE THYROX Lab Routine Acquired hypothyroidism Expected: 02/12/2023, Expires: 04/14/2023 [facility] Work Phone: Comment on above: Expected: 02/12/2023 , Expires: 04/14/2023 Start: 02-12-2023 End: 04-14-2023 Triiodothyronine (T3) Free [Mass/volume] in Serum or Plasma T3 FREE BLD Lab Routine Acquired hypothyroidism Expected: 02/12/2023, Expires: 04/14/2023 [facility] Work Phone: Comment on above: Expected: 02/12/2023 , Expires: 04/14/2023 Start: 12-11-2022 ANNUAL PCP TEAM ROTARY DRILLER PROSPECTING DEBBIE DISEASE VISIT ANNUAL PCP TEAM CHRONIC DISEASE VISIT [facility] Start: 12-06-2022 Hepatitis B surface antibody level LDL CHOLESTEROL [facility] Start: 09-21-2022 CT of head without contrast Brain/Head without Contrast [facility] Start: 09-21-2022 CT Unspecified body region WO contrast [facility] Start: 09-12-2022 End: 11-12-2022 Hemoglobin A1c in Blood HGB A1C Lab Routine Type 2 diabetes mellitus without complication, without long-term current use of insulin (HCC) Expected: 09/12/2022, Expires: 11/12/2022 [facility] Work Phone: Comment on above: Expected: 09/12/2022 , Expires: 11/12/2022 Start: 09-12-2022 End: 11-12-2022 Thyrotropin [Units/volume] in Serum or Plasma TSH BLD Lab Routine Acquired hypothyroidism Expected: 09/12/2022, Expires: 11/12/2022 [facility] Work Phone: Comment on above: Expected: 09/12/2022 , Expires: 11/12/2022 Start: 08-16-2022 COVID-19 VACCINE (5 - Pfizer series) COVID-19 VACCINE (5 - Pfizer series) [facility] Start: 08-13-2022 Adult depression scr eening assessment DEPRESSION SCREENING [facility] Start: 08-13-2022 ANNUAL PCP TEAM ROTARY DRILLER PROSPECTING DEBBIE DISEASE VISIT ANNUAL PCP TEAM CHRONIC DISEASE VISIT [facility] Start: 08-08-2022 End: 10-08-2022 ALBUMIN/CREAT RATIO RND UR ALBUMIN/CREAT RATIO RND UR Lab Routine Type 2 diabetes mellitus without complication, without long-term current use of insulin (HCC) Expected: 08/08/2022, Expires: 10/08/2022 [facility] Work Phone: Comment on above: Expected: 08/08/2022 , Expires: 10/08/2022 Start: 08-08-2022 End: 10-08-2022 Basic metabolic 2000 panel - Serum or Plasma BASIC METABOLIC PNL Lab Routine Type 2 diabetes mellitus without complication, without long-term current use of insulin (HCC) Expected: 08/08/2022, Expires: 10/08/2022 [facility] Work Phone: Comment on above: Expected: 08/08/2022 , Expires: 10/08/2022 Start: 08-08-2022 Hepatitis B screening URINE ALBUMIN:CREATININE RATIO [facility] Start: 07-04-2022 End: 09-03-2022 Hemoglobin A1c in Blood HGB A1C Lab Routine Controlled type 2 diabetes mellitus without complication, without long-term current use of insulin ([facility]) Expected: 07/04/2022, Expires: 09/03/2022 [facility] Work Phone: Comment on above: Expected: 07/04/2022 , Expires: 09/03/2022 Start: 07-04-2022 Hemoglobin A1c/Hemoglobin.total in Blood HBA1C [facility] Start: 2022 ADVANCE DIRECTIVE DISCUSSION ADVANCE DIRECTIVE DISCUSSION [facility] Start: 2022 DEPRESSION ASSESSMENT DEPRESSION ASS ESSMENT [facility] Start: 04-12-2022 End: 06-12-2022 CBC panel - Blood by Automated count CBC Lab Routine Iron deficiency anemia, unspecified iron deficiency anemia type Expected: 04/12/2022 (Approximate), Expires: 06/12/2022 [facility] Work Phone: Comment on above: Expected: 04/12/2022 (Approximate), Expires: 06/12/2022 Start: 04-12-2022 End: 06-12-2022 Cobalamin (Vitamin B12) [Mass/volume] in Serum or Plasma VITAMIN B12 BLOOD Lab Routine B12 deficiency Expected: 04/12/2022 (Approximate), Expires: 06/12/2022 [facility] Work Phone: Comment on above: Expected: 04/12/2022 (Approximate), Expires: 06/12/2022 Start: 04-12-2022 End: 06-12-2022 Comprehensive metabolic 2000 panel - Serum or Plasma COMP METABOLIC PANEL Lab Routine Uncontrolled type 2 diabetes mellitus with hyperglycemia (HCC) Expected: 04/12/2022 (Approximate), Expires: 06/12/2022 [facility] Work Phone: Comment on above: Expected: 04/12/2022 (Approximate), Expires: 06/12/2022 Start: 04-12-2022 End: 06-12-2022 Hemoglobin A1c in Blood HGB A1C Lab Routine Uncontrolled type 2 diabetes mellitus with hyperglycemia (HCC) Expected: 04/12/2022 (Approximate), Expires: 06/12/2022 [facility] Work Phone: Comment on above: Expected: 04/12/2022 (Approximate), Expires: 06/12/2022 Start: 04-12-2022 End: 06-12-2022 Iron and Iron binding capacity panel - Serum or Plasma IRON + TIBC Lab Routine Iron deficiency anemia, unspecified iron deficiency anemia type Expected: 04/12/2022 (Approximate), Expires: 06/12/2022 [facility] Work Phone: Comment on above: Expected: 04/12/2022 (Approximate), Expires: 06/12/2022 Start: 04-12-2022 End: 06-12-2022 Thyrotropin [Units/volume] in Serum or Plasma TSH BLD Lab Routine Acquired hypothyroidism Expected: 04/12/2022 (Approximate), Expires: 06/12/2022 [facility] Work Phone: Comment on above: Expected: 04/12/2022 (Approximate), Expires: 06/12/2022 Start: 04-12-2022 End: 06-12-2022 Thyroxine (T4) free [Mass/volume] in Serum or Plasma T4 FREE/FREE THYROX Lab Routine Acquired hypothyroidism Expected: 04/12/2022 (Approximate), Expires: 06/12/2022 [facility] Work Phone: Comment on above: Expected: 04/12/2022 (Approximate), Expires: 06/12/2022 Start: 04-03-2022 Glaucoma screening Dilated Retinal E xam [facility] Start: 04-03-2022 Hepatitis C antibody , confirmatory test DILATED RETINAL EXAM [facility] Start: 03-08-2022 Hemoglobin A1c/Hemoglobin.total in Blood HBA1C [facility] Start: 02-28-2022 Influenza vaccination INFLUENZA (#1) [facility] Start: 01-19-2022 3 comp foot exam completed DIABETIC FOOT EXAM [facility] Start: 01-19-2022 Diabetic foot examination Diabetic F oot Exam [facility] Start: 01-19-2022 Urine microalbumin profile DTA P,TDAP,TD (2 - Td or Tdap) [facility] Comment on above: Postponed from 02/24 (Declined at this time) Start: 11-05-2021 Hemoglobin A1c/Hemoglobin.total in Blood HBA1C [facility] Start: 09-21-2021 Hepatitis B surface antibody level LDL CHOLESTEROL [facility] Start: 09-15-2021 COVID-19 VACCINE (4 - Booster for Pfizer series) COVID-19 VACCINE (4 - Booster for Pfizer series) [facility] Start: 2021 ADVANCE DIRECTIVE DISCUSSION ADVANCE DIRECTIVE DISCUSSION [facility] Start: 2021 DEPRESSION ASSESSMENT DEPRESSION ASS ESSMENT [facility] Start: 02-24-2017 Urine microalbumin profile [facility] Start: 2003 Hepatitis B Vaccine (1 of 3 - Risk 3-dose series) Hepatitis B Vaccine (1 of 3 - Risk 3-dose series) [facility] Start: 2003 RSV Vaccine (1 - 1-d ose 60+ series) RSV Vaccine (1 - 1-dose 60+ series) [facility] ALBUMIN/CREAT RATIO RND UR ALBUM IN/CREAT RATIO RND UR Lab Routine Uncontrolled type 2 diabetes mellitus with hyperglycemia (HCC) 02/13/2023 9:53 AM EDT [facility] Work Phone: Bacteria identified in Sputum by Respiratory culture [facility] Cobalamin (Vitamin B 12) [Mass/volume] in Serum or Plasma VITAMIN B12 BLOOD Lab Routine B12 deficiency 02/13/2023 9:53 AM EDT [facility] Work Phone: Comprehensive metabo lic 2000 panel - Serum or Plasma COMP METABOLIC PANEL Lab Routine Uncontrolled type 2 diabetes mellitus with hyperglycemia (HCC) 02/13/2023 9:53 AM [facility] Work Phone: Ferritin [Mass/volum e] in Serum or Plasma FERRITIN BLD Lab Routine Iron deficiency anemia, unspecified iron deficiency anemia type 02/13/2023 9:53 AM [facility] Work Phone: Folate [Mass/volume] in Serum or Plasma FOLATE SERUM Lab Routine B12 deficiency Iron deficiency anemia, unspecified iron deficiency anemia type 02/13/2023 9:53 AM [facility] Work Phone: Hemoglobin A1c in Blood HGB A1C Lab Routine Uncontrolled type 2 diabetes mellitus with hyperglycemia (HCC) 02/13/2023 9:53 AM [facility] Work Phone: Iron and Iron bindin g capacity panel - Serum or Plasma IRON + TIBC Lab Routine Iron deficiency anemia, unspecified iron deficiency anemia type 02/13/2023 9:53 AM [facility] Work Phone: Lipid 1996 panel - S edgardo or Plasma LIPID PANEL BASIC Lab Routine Hyperlipidemia, unspecified hyperlipidemia type Uncontrolled type 2 diabetes mellitus with hyperglycemia (HCC) 02/13/2023 9:53 AM [facility] Work Phone: Patient Education ED Head Injury (Adult) [facility] Work Phone: Patient referral [facility] Work Phone: Thyrotropin [Units/v olume] in Serum or Plasma TSH BLD Lab Routine Acquired hypothyroidism 02/13/2023 9:53 AM [facility] Work Phone: Thyroxine (T4) free [Mass/volume] in Serum or Plasma T4 FREE/FREE THYROX Lab Routine Acquired hypothyroidism 02/13/2023 9:53 AM [facility] Work Phone: Triiodothyronine (T3 ) Free [Mass/volume] in Serum or Plasma T3 FREE BLD Lab Routine Acquired hypothyroidism 02/13/2023 9:53 AM [facility] Work Phone: Troponin T.cardiac [Mass/volume] in Serum or Plasma by High sensitivity method [facility] Troponin T.cardiac [Mass/volume] in Serum or Plasma by High sensitivity method [facility] Urine culture [facility] End: 09-25-2024 US Abdomen RUQ US ABD RIGHT UPPER QUADRANT Radiology Routine Elevated LFTs 1 Occurrences starting 08/27/2023 until 09/25/2024 [facility] Work Phone: Comment on above: 1 Occurrences starti ng 08/27/2023 until 09/25/2024 [facility] Immunizations Immunization Date Immunization Notes Care Provider Martin spear 12-09-2023 Covid (Spikevax) Dr. Peter hernandez MD Work Phone: [facility] 08-10-2023 Influenza High-Dose Quadrivalent Dr. Peter Ellis Work Phone: [facility] 09-21-2022 tetanus toxoid, redu cynthia diphtheria toxoid, and acellular pertussis vaccine, adsorbed [facility] 04-15-2022 COVID-19 booster vaccine, age 12+ yr, bivalent (PFIZER-BIONTWhodini) Ceci Mancilla [facility] 04-15-2022 influenza, high-dose , quadrivalent vaccine (FLUZONE HIGH DOSE QUADRIVALENT) Ceci Mancilla [facility] 04-15-2022 influenza virus vacc ine, unspecified formulation Peter Ellis MD Work Phone: [facility] 05-18-2021 Covid (Pf[facility] 05-18-2021 zoster vaccine recombinant Maciej Lopez [facility] Work Phone: [facility] Work Phone: 03-15-2021 influenza, injectabl e, quadrivalent, preservative free Dr. Peter Ellis Work Phone: [facility] 03-15-2021 zoster vaccine recombinant [facility] Work Phone: [facility] Work Phone: 10-03-2020 COVID-19 vaccine, ag e 12+ yr (PFIZER-BIONTECH - PURPLE TOP) [facility] Work Phone: [facility] Work Phone: 09-12-2020 COVID-19 vaccine, ag e 12+ yr (PFIZER-BIONTECH - PURPLE TOP) [facility] Work Phone: [facility] Work Phone: 03-28-2020 influenza, high-dose , quadrivalent vaccine (FLUZONE HIGH DOSE QUADRIVALENT) [facility] Work Phone: [facility] Work Phone: 03-31-2019 influenza, high dose seasonal, preservative-free [facility] Work Phone: [facility] Work Phone: 03-31-2019 Influenza, injectabl e, Madin Chasity Canine Kidney, preservative free, quadrivalent Dr. Peter Ellis Work Phone: [facility] 02-27-2018 influenza, seasonal, injectable [facility] Work Phone: [facility] Work Phone: 02-27-2018 Seasonal trivalent influenza vaccine, adjuvanted, preservative free Dr. Peter Ellis Work Phone: [facility] 03-06-2017 Influenza, high dose seasonal Dr. Peter Ellis MD Work Phone: [facility] 03-06-2017 influenza, high dose seasonal, preservative-[facility] Work Phone: [facility] 03-23-2016 influenza, high dose seasonal, preservative-free [facility] Work Phone: [facility] 03-23-2016 influenza, injectabl e, quadrivalent, preservative free Dr. Peter Ellis Work Phone: [facility] 03-15-2015 pneumococcal conjuga te vaccine, 13 valent [facility] Work Phone: [facility] 03-08-2015 influenza, seasonal, injectable [facility] Work Phone: 03-08-2015 Seasonal, quadrivale nt, recombinant, injectable influenza vaccine, preservative free Dr. Peter Ellis Work Phone: [facility] 03-05-2014 influenza, injectabl e, quadrivalent, preservative free Dr. Peter Ellis Work Phone: [facility] 03-05-2014 influenza, seasonal, injectable Keti [facility] Work Phone: [facility] 05-21-2013 typhoid vaccine, unspecified formulation [facility] Work Phone: [facility] Work Phone: 05-03-2013 zoster vaccine, live Keti [facility] Work Phone: [facility] Work Phone: 04-08-2013 influenza virus vacc ine, unspecified formulation Keti [facility] Work Phone: [facility] Work Phone: 04-05-2013 influenza virus vacc ine, unspecified formulation Keti [facility] Work Phone: [facility] 03-22-2013 hepatitis A vaccine, adult dosage Dr. Peter Ellis Work Phone: [facility] 03-22-2013 hepatitis A vaccine, unspecified formulation [facility] Work Phone: [facility] Work Phone: 03-04-2012 pneumococcal polysaccharide vaccine, 23 valent [facility] Work Phone: [facility] 02-24-2007 hepatitis A vaccine, adult dosage [facility] Work Phone: [facility] 02-24-2007 tetanus toxoid, redu cynthia diphtheria toxoid, and acellular pertussis vaccine, adsorbed [facility] Work Phone: [facility] 02-24-[address] Peter Ellis Work Phone: [facility] 03-17-2000 measles, mumps and rubella virus vaccine [facility] Work Phone: [facility] Payers Date Payer Category Payer Medicaid [id number] 2024 Medicare [id number] 2024 Unknown [id number] 2024 Self-pay [id number] 2022 Unknown [id number] 2021 Medicare AETNA MEDICARE A ETNA MEDICARE PPO [id number] 2021-Present [phone] [address] [place] [address] O [id number] 2021 Medicare [id number] 2005 Unknown ANTHEM [id number] Medicare UHC MEDICARE ADVANTAGE [id number] Private Health Insurance [facility] [id number] Unknown [id number] Unknown [id number] Unknown [id number] Unknown [id number] Unknown [id number] Unknown [id number] Social History Date Type Detail Facility Start: 11-29-2011 End: 03-03-2025 Tobacco smoking status NHIS Never smoked tobacco [facility] Work Phone: Start: 08-22-2021 End: 11-12-2023 Alcohol intake Current non-drinker of alcohol (finding) [facility] Start: 08-30-2019 History SDOH Alcohol Frequency 1 [facility] Start: 08-30-2019 History SDOH Social Connections Phone 4 [facility] Start: 08-30-2019 History SDOH Social Connections Get Together 2 [facility] Start: 08-30-2019 History SDOH Physica l Activity DPW 0 [facility] Start: 08-30-2019 History SDOH Financial 3 [facility] Start: 08-30-2019 Education 17 [facility] Start: 1945 Sex Assigned At Not on file [facility] Start: 12-30-2021 End: 04-15-2022 Exposure to SARS-CoV-2 (event) Not sure [facility] Start: 11-29-2011 Tobacco use and exposure Smoke less tobacco non-user [facility] Start: 05-28-2019 End: 08-15-2023 Tobacco smoking status NHIS Unknown if ever smoked [facility] Start: 04-16-2019 None [facility] Start: 04-16-2019 Alone [facility] Start: 05-28-2019 Non-smoker [facility] Start: 1945 Sex Assigned At Female W [facility] Start: 08-30-2019 End: 02-28-2023 [facility] Start: 08-30-2019 End: 02-28-2023 Social connection and isolation panel [facility] Do you belong to any clubs or organizations such as roman catholic groups, unions, fraternal or athletic groups, or school groups? No [facility] Are you now , , , , never or living with a partner? [facility] How often to you hav e a drink containing alcohol? Never [facility] Average Number of Drinks Not on file [facility] Work Phone: How hard is it for y ou to pay for the very basics like food, housing, medical care, and heating Somewhat hard [facility] Do you feel stress - tense, restless, nervous, or anxious, or unable to sleep at night because your mind is troubled all the time - these days [OSQ] Only a little [facility] (I/We) worried carlin er (my/our) food would run out before (I/we) got money to buy more. Never true [facility] Start: 10-14-2024 Sex Female (finding) [facility] Medical Equipment Procedure Code Equipment Code Equipment Original Text Equipment Identifier Dates Mrkr 8ga Site [employer] - [id number] Start: 02-22-2013 [id number], [id number] Start: 01-10-2021 Comment on above: Test blood sugar(s) 2 times daily. Dx: Type 2 DM - Controlled E11.9 Insulin: No Test blood sugar(s) 2 daily. Dx: E11.9 Insulin: No Goals Date Patient Goal Desired Activity /State Functional Status Date Assessment Result Facility 08-16-2023 Functional status Chair [facility] Work Phone: 08-12-2023 Functional status Ambulates [facility] Work Phone: 08-11-2023 Functional status Tolerates Activity Well [facility] Work Phone: Mental Status Date Assessment Result Facility 08-16-2023 Cognitive function Appropriate;Baldemar pardo [facility] Work Phone: 08-15-2023 Cognitive function Level Of Cons ciousness Awake;Alert;Appropriate [facility] Work Phone: 08-12-2023 Cognitive function Voice/Name [facility] Work Phone: 08-12-2023 Cognitive function Cooperative [facility] Work Phone: 08-11-2023 Cognitive function Comprehension Ability Demonstrates ability to follow instructions/comprehend [facility] Work Phone: 08-10-2023 Cognitive function Memory Description Int act [facility] Work Phone: Clinical Notes 01-25-2016 to 03-03-2025 Telephone Encounter - Renetta Abernathy LPN - 12/04/2023 2:09 PM EDTTelephone Encounter - Renetta Abernathy LPN - 12/04/2023 2:09 PM EDTTelephone Encounter - Steve Aaron - 12/03/2023 9:42 AM EDT Note Date & Type Note Facility 03-03-2025 Radiology Diagnostic study note [facility] Imaging Services [address] [place], [place] [address] Chest 1 View (Portable) MR#: [id number] Acct: [id number] Name: STEVE VIEIRA Rep #: [id number] : 1945 F 79 From: Misha Toth MD PCP: Dr. Peter Ellis MD Status: RE G ER Study:Chest 1 View (Portable) Date of Exam: 03/03/25 Exam# [id number] Ordering Dr: Carlo Laurent MD PROCEDURE: CHEST 1 VIEW (PORTABLE) 03/03/2025 REASON FOR EXAM: POST INTUBATION TECHNIQUE: Frontal view of the chest. COMPARISON: Prior study dated December 02, 2023. FINDINGS: Hardware: Endotracheal tube is seen with the tip at woodrow. It should be pulledback approximately 2 cm. Orogastric tube is seen with the tip in the fundal portion of the stomach. EKG electrodes are seen. Heart: The heart is nonenlarged. Lungs: Elevation of the right hemidiaphragm. The lungs are clear. Bones: Degenerative changes are identified within the thoracic spine. Other: Hiatal hernia. RAD/Chest 1 View (Portable) IMPRESSION: The tip of the endotracheal tube is at the level of the woodrow. It should be pulled back approximately 2 cm. Reading [id number] CC: Dr. Frieda Laurent MD; Dr. Peter Ellis MD ~ Steel Roller: Signed [facility] 12-04-2023 Telephone encount er Note Pt has been admitted to [facility]. See ER and H&P note. [facility] 12-04-2023 Miscellaneous Notes Formattin g of this note might be different from the original. Pt has been admitted to [facility]. See ER and H&P note. 1st call attempt, left vm Let me know if needs a referral. I don't think Medicare requires a referral Spoke with patient and she is not opposed to seeing Mitzy Neves. Please call patient to schedule. Does this require a referral to see him? Have patient come in for DM teaching--see if can get in with certified adapted physical educator or [employer] to help with use of CGM as well as help with DM education. Naye with [facility] calls to report that pt was prescribed Freestyle Pilar 3 reader and sensors. Naye reports they sent pt one of the sensor rx and pt told Naye that she has not begun to use Pilar 3 because she has no idea how to use it. Naye wanted pcp to be aware of this and is asking if pt is going to have someone that will be helping pt. Alta Ortiz LPN documented in this encounter [facility] 12-03-2023 Telephone encount er Note 1st call attempt, left vm [facility] 11-28-2023 Telephone encount er Note Let me know if needs a referral. I don't think Medicare requires a referral [facility] 11-28-2023 Telephone encount er Note Spoke with patient and she is not opposed to seeing Mitzy Neves. Please call patient to schedule. Does this require a referral to see him? [facility] 11-26-2023 Telephone encount er Note Have patient come in for DM teaching--see if can get in with certified adapted physical educator or [employer] to help with use of CGM as well as help with DM education. [facility] 11-25-2023 Telephone encount er Note Naye with [facility] calls to report that pt was prescribed Freestyle Pilar 3 reader and sensors. Naye reports they sent pt one of the sensor rx and pt told Naye that she has not begun to use Pilar 3 because she has no idea how to use it. Naye wanted pcp to be aware of this and is asking if pt is going to have someone that will be helping pt. Alta Ortiz LPN [facility] 11-20-2023 Telephone encount er Note Lesli spoke with patient in regards to asking son Salomón to reach out to TREVA Wang. Abbi says she can tell Salomón, but she will call Felipe herself to discuss home care service needs. Abbi read TREVA Hernandez direct number and patient notes that she will reach out to TREVA Wang for assistance. [facility] 11-20-2023 Miscellaneous Notes Formattin g of this note might be different from the original. Lesli spoke with patient in regards to asking son Salomón to reach out to TREVA Wang. Abbi says she can tell Salomón, but she will call Felipe herself to discuss home care service needs. Abbi read TREVA Hernandez direct number and patient notes that she will reach out to TREVA Wang for assistance. Lesli spoke with TREVA Wang and she reports that patient guardianship application was never submitted to court. Patient eil Lorenzana did not sign application, which would be needed to submit to probate court. Felipe notes that patient should reach out to son and have son let her know what service/support patient needs help with at this time. Felipe notes that she is aware that patient has meals on wheels set up for home delivered meals. Felipe also noted that Salomón and told her that he was working and helping patient set up supportive home services. Lesli will reach back out to patient and request that she call her son Salomón for him to connect with TREVA Wang in regards to any current service needs that patient would need set up in the home. Lesli left message for patient to return SW call to discuss home care needs. Lesli does not see any mention of status of guardianship appointment for patient. Sw will discuss further with patient and when she returns Sw call. documented in this encounter [facility] 11-19-2023 Telephone encount er Note Lesli spoke with TREVA Wang and she reports that patient guardianship application was never submitted to court. Patient son Salomón did not sign application, which would be needed to submit to probate court. Felipe notes that patient should reach out to son and have son let her know what service/support patient needs help with at this time. Felipe notes that she is aware that patient has meals on wheels set up for home delivered meals. Felipe also noted that Salomón and told her that he was working and helping patient set up supportive home services. Sw will reach back out to patient and request that she call her son Salomón for him to connect with TREVA Wang in regards to any current service needs that patient would need set up in the home. [facility] 11-14-2023 Telephone encount er Note Lesli left message for patient to return SW call to discuss home care needs. Lesli does not see any mention of status of guardianship appointment for patient. Sw will discuss further with patient and when she returns Sw call. [facility] 11-14-2023 Telephone encount er Note Faxed completed signed last OV note from 11/12/23 to NH Department with [facility] fax # [phone]. [facility] 11-14-2023 Miscellaneous Notes Formattin g of this note might be different from the original. Faxed completed signed last OV note from 11/12/23 to PA Department with [facility] fax # [phone]. Faxed office notes/A1c values with additonal question form Loan Johnston MA Ethan with the PA Department with [facility] called and reports they need the notes regarding the Free [employer] Pilar. I let him know that they needed to be signed and as soon as the provider does this we would fax them to # [phone]. documented in this encounter [facility] 11-14-2023 Note HNO ID: [id number] Author: ORIN SOSA APRN.MELISSA Service: ? Author Type: Nurse Practitioner Type: Progress Notes Filed: 11/14/2023 07:13 Note Text: Sherwin I filled out the paper work for emergency guardianship and Felipe was going to take over from there. You are correct, the son was willing to be guardian and APS was going to help facilitate that. [facility] 11-14-2023 History of Presen t illness Narrative Sherwin I filled out the paper work for emergency guardianship and Felipe was going to take over from there. You are correct, the son was willing to be guardian and APS was going to help facilitate that. This note was created using [employer]. Subjective Steve Vieira is a 78 year old female. Patient presents with: F/U 4 month SUBJECTIVE: Steve Vieira is a 78 year old year old lady here today for 4 month follow up appointment for review of medical conditions. Vision bad since was in hospital. Feels lost Cannot think clearly. Memory issues. Has issues with transportation. Someone helped bring her in for her appointment and dropped her off. Does not know who they were.She was walking from home to her appointment. Eats [employer] and [employer]. Has cat. States trying to Was at hospital then went to [facility]. Not sure when went home. State a lot of people had amputations. Did rehab then went home. No home health after was sent home except for maybe they came to talk to her. Mouth dry. Sugars not checked at all. Urinary incontinence. Always hungry. Meals on Wheels. Kids order food for her. States family wants her to move where they are ([place]). Has a friend who lives [place]--prefers to move there. Kids were here after when she was transferred to [facility] then had to go back to their homes. Not sure about her meds but gets from [facility]. Wants CGM so can check sugars. Feet completely numb--chronic. Falls frequently PAST MEDICAL HISTORY Diagnosis Date Benign paroxysmal [...] subcutaneously one time a week. Gets through [employer] PAP. levothyroxine (SYNTHROID) 25 mcg tablet Take 1 tablet by mouth every Friday,Friday,Friday. Take on empty stomach. For thyroid. Add to the levothyroxine 50 mcg once daily dosing but just on Fri-Fri-Fri empagliflozin (JARDIANCE) 25 mg tablet Take 1 tablet by mouth daily with breakfast. Gets through [employer] PAP. ferrous sulfate 325 mg (65 mg iron) tablet Take 325 mg by mouth once daily. blood sugar diagnostic (BLOOD GLUCOSE TEST) test strip Test blood sugar(s) 2 times daily. Dx: Type 2 DM - Controlled E11.9 Insulin: No Lancets lancets Test blood sugar(s) 2 daily. Dx: E11.9 Insulin: No No current facility-administered medications for this visit. OBJECTIVE: Review of Systems Objective BP 124/72 Pulse 93 Temp 36.4 C (97.6 F) Resp 18 SpO2 100% Physical Exam Constitutional: Appearance: Normal appearance. Comments: Clothes wet from urinary incontinence. HENT: Head: Normocephalic. Eyes: Conjunctiva/sclera: Conjunctivae normal. Cardiovascular: Rate and Rhythm: Normal rate and regular rhythm. Heart sounds: Normal heart sounds. Pulmonary: Effort: Pulmonary effort is normal. Breath sounds: Normal breath sounds. Musculoskeletal: Right lower leg: No edema. Left lower leg: No edema. Skin: General: Skin is warm and dry. Neurological: General: No focal deficit present. Mental Status: She is alert and oriented to person, place, and time. Psychiatric: Mood and Affect: Mood normal. Behavior: Behavior normal. Thought Content: Thought content normal. Latest Ref Rng 07/04/2023 08/25/2023 10/31/2023 WBC 3.70 - 11.00 k/uL 5.46 5.35 4.63 RBC 3.90 - 5.20 m/uL 3.37 (L) 4.04 3.88 (L) Hemoglobin 11.5 - 15.5 g/dL 7.8 (L) 10.4 (L) 10.6 (L) Hematocrit 36.0 - 46.0 % 27.9 (L) 36.0 35.6 (L) MCV 80.0 - 100.0 fL 82.8 89.1 91.8 MCH 26.0 - 34.0 pg 23.1 (L) 25.7 (L) 27.3 MCHC 30.5 - 36.0 g/dL 28.0 (L) 28.9 (L) 29.8 (L) RDW-CV 11.5 - 15.0 % 15.9 (H) 20.3 (H) 15.4 (H) Platelet Count 150 - 400 k/uL 204 247 177 MPV 9.0 - 12.7 fL 12.5 11.1 11.8 Neut% % 68.1 57.2 Abs Neut (ANC) 1.45 - 7.50 k/uL 3.64 2.65 Lymph% % 22.4 26.6 Abs Lymph 1.00 - 4.00 k/uL 1.20 1.23 Barton% % 6.4 7.8 Abs Barton <0.87 k/uL 0.34 0.36 Eosin% % 1.7 7.1 Abs Eosin <0.46 k/uL 0.09 0.33 Baso% % 0.7 1.1 Abs Baso <0.11 k/uL 0.04 0.05 Immature Gran % % 0.7 0.2 IMMATURE GRANS (ABS) <0.10 k/uL 0.04 <0.03 NRBC /100 WBC 0.0 0.0 Absolute nRBC <0.01 k/uL <0.01 <0.01 <0.01 DTYPE Auto Auto Protein, Total 6.3 - 8.0 g/dL 7.2 7.3 7.2 Albumin 3.9 - 4.9 g/dL 4.3 4.0 4.3 Calcium 8.5 - 10.2 mg/dL 9.7 10.0 10.1 Bilirubin, Total 0.2 - 1.3 mg/dL 0.6 0.6 0.5 Alkaline Phosphatase 34 - 123 U/L 188 (H) 334 (H) 226 (H) AST 13 - 35 U/L 48 (H) 100 (H) 76 (H) ALT 7 - 38 U/L 45 (H) 68 (H) 66 (H) Glucose 74 - 99 mg/dL 492 (H) 312 (H) 479 (H) BUN 7 - 21 mg/dL 15 23 (H) 24 (H) Creatinine 0.58 - 0.96 mg/dL 0.68 0.59 0.60 Sodium 136 - 144 mmol/L 135 (L) 135 (L) 135 (L) Potassium 3.7 - 5.1 mmol/L 4.7 5.1 5.1 Chloride 97 - 105 mmol/L 98 100 101 CO2 22 - 30 mmol/L 23 23 21 (L) Anion Gap 9 - 18 mmol/L 14 12 13 eGFR >=60 mL/min/1.73m 88 91 91 Iron 41 - 186 ug/dL 118 51 TIBC 232 - 386 ug/dL 427 (H) 454 (H) Transferrin Saturation 15.0 - 57.0 % 27.6 11.2 (L) Hemoglobin A1C 4.3 - 5.6 % 12.9 (H) 10.9 (H) 11.3 (H) Estimated Average Glucose mg/dL 324 266 278 Vitamin D 25 Hydroxy 31.0 - 80.0 ng/mL 7.1 (L) 24.4 (L) TSH 0.270 - 4.200 mIU/L 4.380 (H) 4.540 (H) 3.250 Free T4 0.9 - 1.7 ng/dL 1.3 1.1 1.1 Free T3 2.3 - 4.1 pg/mL 2.4 2.7 2.3 Magnesium 1.7 - 2.3 mg/dL 2.1 Vitamin B12 232 - 1,245 pg/mL 456 Ferritin 14.7 - 205.1 ng/mL 33.4 Legend: (L) Low (H) High Assessment and Plan Encounter Diagnosis ICD-10-CM 1. Uncontrolled type 2 diabetes mellitus with hyperglycemia (HCC) E11.65 Blood-Glucose Meter,Continuous (FREESTYLE PILAR 3 READER) misc Blood-Glucose Sensor (FREESTYLE PILAR 3 SENSOR) julisa Needs CGM so can make better decisions about meals and to help guide medication adjustments. 2. Urinary incontinence without sensory awareness N39.42 3. Weakness R53.1 Multifactorial. Out of control DM contributes. Monitor for now. Consider PT. May need to be in assisted living or detention if not adequate help to stay home 4. Elevated LFTs R79.89 Improving. Further evaluation and treatment as needed 5. Anemia, unspecified type D64.9 Improving. Continue present management. 6. Frequent falls R29.6 As noted above with weakness issue Above issues addressed with patient. Patient involved in shared decision making for management of medical issues. History and medications reviewed. Epic updated as needed Refills and/or prescriptions taken care of and meds adjusted as indicated after reviewed history, exam and labs. Health Maintenance reviewed. Updated record and/or ordered tests as recorded. Encouraged on efforts at healthy diet and regular exercise and adequate sleep. Working with SW to get more help at home. Stressed with patient that needs to consider NH or AL if not able to get enough help to stay in her own home. Options of living closer to family or a friend as noted in HPI, but suspect she will not be able to continue living independently given her health issues and frequent falls. Peter Ellis MD documented in this encounter [facility] 11-13-2023 Telephone encount er Note Faxed office notes/A1c values with additonal question form Loan Johnston MA [facility] 11-13-2023 Telephone encount er Note Ethan with the PA Department with [facility] called and reports they need the notes regarding the [employer]. I let him know that they needed to be signed and as soon as the provider does this we would fax them to # [phone]. [facility] 11-12-2023 Note HNO ID: [id number] Author: PETER ELLIS MD Service: ? Author Type: Physician Type: Progress Notes Filed: 11/14/2023 09:10 Note Text: This note was created using [employer]. Subjective Steve Vieira is a 78 year old female. Patient presents with: F/U 4 month SUBJECTIVE: Steve Vieira is a 78 year old year old lady here today for 4 month follow up appointment for review of medical conditions. Vision bad since was in hospital. Feels lost Cannot think clearly. Memory issues. Has issues with transportation. Someone helped bring her in for her appointment and dropped her off. Does not know who they were.She was walking from home to her appointment. Eats [employer]. Has cat. States trying to Was at hospital then went to [facility]. Not sure when went home. State a lot of people had amputations. Did rehab then went home. No home health after was sent home except for maybe they came to talk to her. Mouth dry. Sugars not checked at all. Urinary incontinence. Always hungry. Meals on Wheels. Kids order food for her. States family wants her to move where they are ([place]). Has a friend who lives [place]--prefers to move there. Kids were here after when she was transferred to [facility] then had to go back to their homes. Not sure about her meds but gets from [facility]. Wants CGM so can check sugars. Feet completely numb--chronic. Falls frequently PAST MEDICAL HISTORY Diagnosis Date Benign paroxysmal [...] subcutaneously one time a week. Gets through [employer] PAP. levothyroxine (SYNTHROID) 25 mcg tablet Take 1 tablet by mouth every Friday,Friday,Friday. Take on empty stomach. For thyroid. Add to the levothyroxine 50 mcg once daily dosing but just on Fri-Fri-Fri empagliflozin (JARDIANCE) 25 mg tablet Take 1 tablet by mouth daily with breakfast. Gets through [employer] PAP. ferrous sulfate 325 mg (65 mg iron) tablet Take 325 mg by mouth once daily. blood sugar diagnostic (BLOOD GLUCOSE TEST) test strip Test blood sugar(s) 2 times daily. Dx: Type 2 DM - Controlled E11.9 Insulin: No Lancets lancets Test blood sugar(s) 2 daily. Dx: E11.9 Insulin: No No current facility-administered medications for this visit. OBJECTIVE: Review of Systems Objective BP 124/72 Pulse 93 Temp 36.4 ?C (97.6 ?F) Resp 18 SpO2 100% Physical Exam Constitutional: Appearance: Normal appearance. Comments: Clothes wet from urinary incontinence. HENT: Head: Normocephalic. Eyes: Conjunctiva/sclera: Conjunctivae normal. Cardiovascular: Rate and Rhythm: Normal rate and regular rhythm. Heart sounds: Normal heart sounds. Pulmonary: Effort: Pulmonary effort is normal. Breath sounds: Normal breath sounds. Musculoskeletal: Right lower leg: No edema. Left lower leg: No edema. Skin: General: Skin is warm and dry. Neurological: General: No focal deficit present. Mental Status: She is alert and oriented to person, place, and time. Psychiatric: Mood and Affect: Mood normal. Behavior: Behavior normal. Thought Content: Thought content normal. Latest Ref Rng 07/04/2023 08/25/2023 10/31/2023 WBC 3.70 - 11.00 k/uL 5.46 5.35 4.63 RBC 3.90 - 5.20 m/uL 3.37 (L) 4.04 3.88 (L) Hemoglobin 11.5 - 15.5 g/dL 7.8 (L) 10.4 (L) 10.6 (L) Hematocrit 36.0 - 46.0 % 27.9 (L) 36.0 35.6 (L) MCV 80.0 - 100.0 fL 82.8 89.1 91.8 MCH 26.0 - 34.0 pg 23.1 (L) 25.7 (L) 27.3 MCHC 30.5 - 36.0 g/dL 28.0 (L) 28.9 (L) 29.8 (L) RDW-CV 11.5 - 15.0 % 15.9 (H) 20.3 (H) 15.4 (H) Platelet Count 150 - 400 k/uL 204 247 177 MPV 9.0 - 12.7 fL 12.5 11.1 11.8 Neut% % 68.1 57.2 Abs Neut (ANC) (more content not included)... [facility] 10-31-2023 Telephone encount er Note Labs in process [facility] 10-31-2023 Miscellaneous Notes Formattin g of this note might be different from the original. Labs in process Please let lab know orders placed. Patient here to have labs drawn for OV with PCP on 11/12/23. Waiting down front and can call [facility] at ext [phone] to update pt. Last OV 08/25/23 with labs done then. Roula Woodall LPN documented in this encounter [facility] 10-31-2023 Telephone encount er Note Please let lab know orders placed. [facility] 10-31-2023 Telephone encount er Note Patient here to have labs drawn for OV with PCP on 11/12/23. Waiting down front and can call Julia at ext [phone] to update pt. Last OV 08/25/23 with labs done then. Roula Woodall LPN [facility] 08-27-2023 Miscellaneous Notes Formattin g of this note might be different from the original. Left message to call office. 08/27/2023 12:34 [...] may prefer to have this done at [facility] since transportation is an issue. Please see where she would like to do this and if preference is [facility] then fax order. Thanks. documented in this encounter [facility] 08-25-2023 Note HNO ID: [id number] Author: ORIN SOSA APRN.MELISSA Service: ? Author Type: Nurse Practitioner Type: Progress Notes Filed: 08/25/2023 12:56 Note Text: SUBJECTIVE Steve Vieira is a 78 year old female here today for a check up on her medical problems. Chief Complaint Patient presents with: [facility] ER follow up - UTI HPI Steve Vieira is a 78 year old female. She is an established patient of Peter Ellis MD. Here today for follow up, she is a poor historian. Recently seen at [facility] on 08/15, records viewed in care everywhere and found she was admitted 08/15 with discharge 08/16 or 08/17. Diagnosis of dehydration, weakness, hyperglycemia, acute UTI and failure to thrive. There is concerns of her living by herself currently and needing to change her current living situation to promote safety. She was discharged to a SNF ([facility]) 08/16 and unclear when she was discharged [...] the SNF. She did have HHC with [facility]. APS did come out to her home [...] once daily dosing but just on Fri-Fri-Fri metFORMIN ER (GLUCOPHAGE XR) 500 mg 24 [...] by mouth daily with breakfast. Gets through [employer] PAP. ferrous sulfate 325 mg (65 mg [...] 1/5. Psychiatric: Attention (more content not included)... [facility] 08-16-2023 Discharge summary Note Date/Time August 16, 2023 4:16pm [facility] Medical Records Department [address] [place] [address] Discharge Summary 08/16/23 1612 MR#: [id number] Acct: [id number] Name: STEVE VIEIRA Rep #:[id number] : 1945 78 From: Carl Couch DO PCP: Dr. Peter Ellis MD Status:AD M IN Location: [place] [address] Providers Date of Admission: 08/15/23 Primary Care Physician: Dr. Peter Ellis MD Reason For Visit: HYPERGLYCEMIA, UTI & ADULT FAILURE TO THRIVE Diagnosis Discharge Diagnosis (1) Hyperglycemia: Status: Acute Code(s): R73.9 - Hyperglycemia, unspecified (2) Acute dehydration: Status: Acute Code(s): E86.0 - Dehydration (3) Acute UTI: Status: Acute Code(s): N39.0 - Urinary tract infection, site not specified (4) Adult failure to thrive: Status: Acute Code(s): R62.7 - Adult failure to thrive Plan Severe Hyperglycemia of 681 mg/dL * improving * without DKA nor HONK in DM2 * Glargine 45 units nightly and SSI * Give Lantus 45 units sq once now plus cover with SSI. * A1c is 11.7. Possible UTI * UA equivocal * on CTX. Change to 5-day course of Macrobid. * UCx showing GNR. Debility * PT OT CM/SW * Patient said that she could go home but I reviewed therapy recommendations were and she was minimal assistance with activity and patient had expressed reluctance to using a walker at home. Reinforced to the patient that going home is not a good choice at this time and she would benefit to going to a fpc facility for further rehab. * Plan for discharge to fpc facility Chronic conditions: * Hyperlipidemia - Resume statin as previous. * Hypothyroidism - Continue Synthroid and check TSH. * History of renal calculi - Noted with no evidence of recurrence. * Chronic depression - Continue Escitalopram. * GERD - Protonix dosing to be resumed. * OA - Stable. Give Tylenol prn. DVT prophylaxis - Lovenox 40 mg sq daily. DC to SNF. Medications at Discharge Home Medications levothyroxine 50 mcg tablet 50 mcg PO DAILY thyroid 06/07/14 metformin 500 mg tablet,extended release 24 hr 2,000 mg PO BREAKFAST DM 06/07/14 pantoprazole 40 mg tablet,delayed release 40 mg PO BREAKFAST GERD 06/07/14 aspirin 81 mg tablet,delayed release 81 mg PO DAILY@0800 cad 05/28/19 atorvastatin 40 mg tablet 40 mg PO QHS CHOLESTEROL 05/28/19 empagliflozin 10 mg tablet 10 mg PO DAILY dm 05/28/19 escitalopram oxalate 10 mg tablet 10 mg PO DAILY DEPRESS 05/28/19 ferrous gluconate 236 mg (27 mg iron) tablet 65 mg PO BID supplement 05/28/19 levothyroxine 25 mcg tablet 25 mcg PO .MWF thyroid 08/09/23 glipizide 10 mg tablet 10 mg PO BID #60 tabs 08/12/23 insulin glargine-yfgn 100 unit/mL (3 mL) subcutaneous pen 45 unit (0.45 mL) subcut QHS #0 mL 08/16/23 insulin lispro 100 unit/mL subcutaneous pen (Humalog KwikPen (U-100) Insulin) See Protocol subcut ACHS #0 mL 08/16/23 nitrofurantoin macrocrystal 100 mg capsule 100 mg PO BID 5 days #10 caps 08/16/23 Hospital Course Operations None Procedures None Summary of Care Provided Minutes Spent on Discharge: 35 Hospital Course: Presents with weakness and falls. Found to have glucose greater than 600, but not in DKA nor HHS. She received 45 units of glargine daily plus SSI. Glucose improved. a1c is greater than 11. She will need insulin long-term. She is a type2 diabetic. She has a UTI. She received ceftriaxone. She will be discharged withMacrobid. She has been falling at home, not using the walker. She required assistance with therapy. She has no one at home to help. [facility]. 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 Sliding Scale Insulin Med Dosing Condition: 150-189 mg/dl = 1 unit Condition: 190-229 mg/dl = 2 units Condition: 230-269 mg/dl = 3 units Condition: 270-309 mg/dl = 4 units Condition: 310-349 mg/dl = 5 units Condition: 350-399 mg/dl = 6 units Condition: 400-449 mg/dl = 7 units Condition: Greater than 449 call physician Protocol Text: - Use for Total Daily Dose of Insulin 37-55 units - Obsese, infected, or steroid patients MEDIUM DOSING ALGORITHIM insulin glargine-yfgn 100 unit/mL (3 mL) Insulin Pen 45 unit subcut QHS Qty: 0 0RF nitrofurantoin macrocrystal 100 mg capsule 100 mg PO BID 5 Days Qty: 10 0RF Rx Instructions: must administer with a meal/food Continued levothyroxine 50 MCG tablet 50 mcg PO DAILY Patient Comments: THYROID MEDICATION pantoprazole 40 MG tablet 40 mg PO BREAKFAST Patient Comments: ROWENA ON EMPTY STOMACH, 1/2HR BEFORE MEAL -ACID REFLUX metformin 500 MG tablet extended release 24 hr 2,000 mg PO BREAKFAST Patient Comments: -FOR DIABETES atorvastatin 40 MG tablet 40 mg PO QHS aspirin 81 MG tablet 81 mg PO DAILY@0800 escitalopram oxalate 10 MG tablet 10 mg PO DAILY ferrous gluconate 236 MG tablet 65 mg PO BID empagliflozin 10 MG tablet 10 mg PO DAILY levothyroxine 25 mcg tablet 25 mcg PO .MWF Patient Comments: in addition to the 50mcg. so total of 75mcg on MWF glipizide 10 mg tablet 10 mg PO BID Qty: 60 0RF Referrals / Follow Up: Peter Ellis MD [Primary Care Provider] - Within 2 Weeks Disposition Disposition (needs filled in before D/C Order can be placed): Jail Facility Charges/Coding Visit Charges Inpatient E&M: 54492 Disch Hosp >30min 08/16/231615 <Electronically signed by Carl Couch DO> Cosigner Signature (if applicable): CC: Dr. Carl Couch DO; Dr. Peter Ellis MD~ Signed [facility] Work Phone: 1(716) 238-462502-17-2024 Discharge summary Author Carl Couch [facility] August 16, 2023 4:12pm Note Date/Time August 16, 2023 4:04pm [facility] Medical Records Department [address] [place] [address] Transfer to [facility] MR#: [id number] Acct: [id number] Name: STEVE VIEIRA Rep #:[id number] : 1945 78 From: Carl Couch DO PCP: Dr. Peter Ellis MD Status:AD M IN Certification of patient admission REQUIRED AT TIME OF ADMISSION. I CERTIFY THAT POST-HOSPITAL ECF SERVICES ARE REQUIRED TO BE GIVEN ON AN IN-PATIENT BASIS BECAUSE OF THE ABOVE NAMED PATIENT'S NEED FOR SKILLED NURSING CARE ON A CONTINUING BASIS FOR THE CONDITION(S) FOR WHICH HE/SHE WAS RECEIVING IN-PATIENT HOSPITAL SERVICES PRIOR TO HIS/HER TRANSFER TO THE ECF. 08/16/231611<Electronically signed by Carl Couch DO> Diet Diet Order/Speech Therapy: 08/15/23 10:26 Diet: Cardiac - Heart Healthy Dietary Modifications:: Consistent Carbohydrate Is pt able to select menu?: Yes Routine Orders/Code Status Code Status: Full Code Therapies Physical Therapy: Eval and Treat Occupational Therapy: Eval and Treat Problem/Diagnosis (1) Hyperglycemia: Status: Acute Code(s): R73.9 - Hyperglycemia, unspecified (2) Acute dehydration: Status: Acute Code(s): E86.0 - Dehydration (3) Acute UTI: Status: Acute Code(s): N39.0 - Urinary tract infection, site not specified (4) Adult failure to thrive: Status: Acute Code(s): R62.7 - Adult failure to thrive Plan Severe Hyperglycemia of 681 mg/dL * improving * without DKA nor HONK in DM2 * Glargine 45 units nightly and SSI * Give Lantus 45 units sq once now plus cover with SSI. * A1c is 11.7. Possible UTI * UA equivocal * on CTX * UCx showing GNR. Debility * PT OT CM/SW * Patient said that she could go home but I reviewed therapy recommendations were and she was minimal assistance with activity and patient had expressed reluctance to using a walker at home. Reinforced to the patient that going home is not a good choice at this time and she would benefit to going to a fpc facility for further rehab. * Plan for discharge to fpc facility Chronic conditions: * Hyperlipidemia - Resume statin as previous. * Hypothyroidism - Continue Synthroid and check TSH. * History of renal calculi - Noted with no evidence of recurrence. * Chronic depression - Continue Escitalopram. * GERD - Protonix dosing to be resumed. * OA - Stable. Give Tylenol prn. DVT prophylaxis - Lovenox 40 mg sq daily. DC to SNF. Allergies/Procedures Done in Hospital Allergies venlafaxine HCl [From Effexor] Allergy (Verified 08/09/23 11:14) Rash CHEST BROKE OUT, GOT REAL DIZZY. meclizine Adverse Reaction (Verified 08/09/23 11:14) Other PT BECAME EXTREMELY FATIGUED & WAS UNABLE TO WALK AFTER TAKING 12.5MG OF MECLIZINE. Type of Care/Length of Stay Estimated LOS: Convalescent Care Less Than 30 days Type of Care Needed: Skilled Rehab Potential: Fair Prognosis: Good Additional Orders/Day of Discharge Day of Discharge: 08/16/23 Dietary and Speech Recommendations Dietitian Recommendations/Changes: Will change diet to Cardiac Consistent CHO d/t pmhx Discharge Plan Admission Admit Date/Time: 08/15/23 01:26 Primary Reason for Your Visit: debility Attending Provider: Carl Couch Primary Care Provider: Peter Ellis Consulting Providers: Mitzy Pratt Discharge Orders/Prescriptions Prescriptions: New insulin lispro [Humalog KwikPen Insulin] 100 unit/mL Insulin Pen See Protocol subcut ACHS Qty: 0 0RF Protocol: 3. Sliding Scale Insulin Med Dosing Condition: 150-189 mg/dl = 1 unit Condition: 190-229 mg/dl = 2 units Condition: 230-269 mg/dl = 3 units Condition: 270-309 mg/dl = 4 units Condition: 310-349 mg/dl = 5 units Condition: 350-399 mg/dl = 6 units Condition: 400-449 mg/dl = 7 units Condition: Greater than 449 call physician Protocol Text: - Use for Total Daily Dose of Insulin 37-55 units - Obsese, infected, or steroid patients MEDIUM DOSING ALGORITHIM insulin glargine-yfgn 100 unit/mL (3 mL) Insulin Pen 45 unit subcut QHS Qty: 0 0RF nitrofurantoin macrocrystal 100 mg capsule 100 mg PO BID 5 Days Qty: 10 0RF Rx Instructions: must administer with a meal/food Continued levothyroxine 50 MCG tablet 50 mcg PO DAILY Patient Comments: THYROID MEDICATION pantoprazole 40 MG tablet 40 mg PO BREAKFAST Patient Comments: ROWENA ON EMPTY STOMACH, 1/2HR BEFORE MEAL -ACID REFLUX metformin 500 MG tablet extended release 24 hr 2,000 mg PO BREAKFAST Patient Comments: -FOR DIABETES atorvastatin 40 MG tablet 40 mg PO QHS aspirin 81 MG tablet 81 mg PO DAILY@0800 escitalopram oxalate 10 MG tablet 10 mg PO DAILY ferrous gluconate 236 MG tablet 65 mg PO BID empagliflozin 10 MG tablet 10 mg PO DAILY levothyroxine 25 mcg tablet 25 mcg PO .MWF Patient Comments: in addition to the 50mcg. so total of 75mcg on MWF glipizide 10 mg tablet 10 mg PO BID Qty: 60 0RF Referrals / Follow Up: Peter Ellis MD [Primary Care Provider] - Within 2 Weeks Disposition Disposition (needs filled in before D/C Order can be placed): Jail Facility 08/16/23 1612 <Electronically signed by Carl Couch DO> Cosigner Signature (if applicable): CC: Dr. Mitzy Pratt DO; Dr. Peter Ellis MD ~ [facility] Work Phone: [phone] 206-597002-17-2024 Progress note Author Carl Couch [facility] August 16, 2023 1:09pm Note Date/Time August 16, 2023 7:51am [facility] Medical Records Department [address] [place] [address] Progress Note - Hospitalist 08/16/23 0751 MR#: [id number] Acct: [id number] Name: STEVE VIEIRA Rep #:[id number] : 1945 78 From: Carl Couch DO PCP: Dr. Peter Ellis MD Status:AD M IN Location: [facility] UT883-5 Reason for Visit Reason for Visit: Diagnoses Dehydration (08/15/23) Urinary tract infection, site not specified (08/15/23) Adult failure to thrive (08/15/23) Hyperglycemia, unspecified (08/15/23) Subjective Subjective Feeling well. Ready to go home. Objective Data Objective Data Vital Signs: Vital Signs Temp Pulse Resp BP Pulse Ox O2 Del Method 36.8 C 64 14 107/59 L 94 Room Air 08/16/23 04:30 08/16/23 04:30 08/16/23 04:30 08/16/23 04:30 08/16/23 07:43 08/16/23 07:43 Oxygen Delivery Method Room Air Weight: 62.2 kg Body Mass Index (BMI) 27.6 Intake & Output: Intake and Output for Last 24 Hours 08/14/23 08/15/23 08/16/23 23:59 23:59 23:59 Intake Total 3947.5 / 3947.5 1000 / 1000 Output Total 2500 / 2500 1700 / 1700 Balance 1447.5 / 1447.5 -700 / -700 Lab / Micro Data 08/15/23 05:40 08/15/23 05:40 Labs: Laboratory Results - last 24 hr 08/15/23 05:40: Hemoglobin A1c 11.7 H 08/15/23 11:11: POC Glucose 230 H 08/15/23 16:33: POC Glucose 305 H 08/15/23 20:11: POC Glucose 387 H 08/16/23 06:24: POC Glucose 107 H Physical Exam Const alert and no apparent distress HEENT head/scalp atraumatic and moist oral mucous membranes Resp normal respiratory effort, no retractions, no use of accessory muscles and clearto auscultation bilaterally Cardio regular rate, regular rhythm, S1 normal heart sound and S2 normal heart sound GI normal to inspection, nondistended, normoactive bowel sounds and soft to palpation Extremity normal to inspection Assessment & Plan Assessment/Plan (1) Hyperglycemia: (2) Acute dehydration: (3) Acute UTI: (4) Adult failure to thrive: PLAN: Plan Severe Hyperglycemia of 681 mg/dL * improving * without DKA nor HONK in DM2 * Glargine 45 units nightly and SSI * Give Lantus 45 units sq once now plus cover with SSI. * A1c is 11.7. Possible UTI * UA equivocal * on CTX * UCx showing GNR. Debility * PT OT CM/SW * Patient said that she could go home but I reviewed therapy recommendations were and she was minimal assistance with activity and patient had expressed reluctance to using a walker at home. Reinforced to the patient that going ho me is not a good choice at this time and she would benefit to going to a fpc facility for further rehab. * Plan for discharge to fpc facility Chronic conditions: * Hyperlipidemia - Resume statin as previous. * Hypothyroidism - Continue Synthroid and check TSH. * History of renal calculi - Noted with no evidence of recurrence. * Chronic depression - Continue Escitalopram. * GERD - Protonix dosing to be resumed. * OA - Stable. Give Tylenol prn. DVT prophylaxis - Lovenox 40 mg sq daily. Charges/Coding Visit Charges Inpatient E&M: 66580 Subs Hosp L2 08/16/23 1303 <Electronically signed by Carl Couch DO> Cosigner Signature (if applicable): CC: ~ Signed [facility] Work Phone: [phone] 877-783002-16-2024 Progress note Author Carl Couch [facility] August 15, 2023 3:05pm Note Date/Time August 15, 2023 8:09am [facility] Medical Records Department [address] [place] [address] Progress Note - Hospitalist 08/15/23 0802 MR#: [id number] Acct: [id number] Name: STEVE VIEIRA Rep #:[id number] : 1945 78 From: aCrl Couch DO PCP: Dr. Peter Ellis MD Status:AD M IN Location: [place] [address] Reason for Visit Reason for Visit: Diagnoses Dehydration (08/15/23) Urinary tract infection, site not specified (08/15/23) Adult failure to thrive (08/15/23) Hyperglycemia, unspecified (08/15/23) Subjective Subjective Feels okay. Objective Data Objective Data Vital Signs: Vital Signs Temp Pulse Resp BP Pulse Ox O2 Del Method 36.6 C 68 17 122/68 H 97 Room Air 08/15/23 03:06 08/15/23 03:06 08/15/23 03:06 08/15/23 03:06 08/15/23 03:06 08/15/23 07:52 Oxygen Delivery Method Room Air Weight: 62.5 kg Body Mass Index (BMI) 27.8 Intake & Output: Intake and Output for Last 24 Hours 08/13/23 08/14/23 08/15/23 23:59 23:59 23:59 Intake Total 662.5 / 662.5 Output Total 500 / 500 Balance 162.5 / 162.5 Lab / Micro Data 08/15/23 05:40 08/15/23 05:40 Labs: Laboratory Results - last 24 hr 08/14/23 23:07: WBC 4.3 L, RBC 4.38, Hgb 10.7 L, Hct 36.9 L, MCV 84.2, MCH 24.4 L, MCHC 29.0 L D, RDW Std Deviation 58.6 H, RDW Coeff of Nicholas 19.8 H, Plt Count 135 L, MPV 11.7, Immature Gran % (Auto) 0.700, Neut % (Auto) 69.3, Lymph % (Auto) 17.4 L, Barton % (Auto) 10.7 H, Eos % (Auto) 1.4, Baso % (Auto) 0.5, Absolute Neuts (auto) 3.0, Absolute Lymphs (auto) 0.75 L, Nucleated RBC % 0, Sodium Cancelled, Potassium Cancelled, Chloride Cancelled, Carbon Dioxide Cancelled, Anion Gap Cancelled, BUN Cancelled, Creatinine Cancelled, Estim CreatClear Calc Cancelled, Est GFR (MDRD) Af Amer Cancelled, Est GFR (MDRD) Non-Af Cancelled, BUN/Creatinine Ratio Cancelled, Glucose Cancelled, Calcium Cancelled,Troponin I High Sens Cancelled 08/14/23 23:32: Urine Color Yellow, Urine Clarity Sl. Cloudy, Urine pH 7.0, Ur Specific Meridian 1.010, Urine Protein Negative, Urine Glucose (UA) 1000 H, UrineKetones 5 H, Urine Occult Blood 250 H, Urine Nitrite Negative, Urine Bilirubin Negative, Urine Urobilinogen Normal, Ur Leukocyte Esterase 100 H, Urine RBC 5- 10SEEN, Urine WBC 25-50 SEEN, Ur Squamous Epith Cells 0 SEEN, Ur Transition Epith Cell 0 SEEN, Ur Renal Epithelial Cell 0 SEEN, Urine Bacteria 1+, Urine Mucus 0 SEEN 08/15/23 00:02: Sodium 135 L, Potassium 4.6, Chloride 101, Carbon Dioxide 27.0, Anion Gap 7, BUN 24 H, Creatinine 0.89, Estim Creat Clear Calc 42.48, Est GFR (MDRD) Af Amer 79, Est GFR (MDRD) Non-Af 65, BUN/Creatinine Ratio 27.0 H, Glucose 681 H*, Calcium 10.1, Troponin I High Sens 8 08/15/23 01:50: POC Glucose > 500 H* 08/15/23 03:13: POC Glucose 442 H 08/15/23 05:40: WBC 4.5, RBC 3.76 L, Hgb 9.6 L, Hct 31.6 L, MCV 84.0, MCH 25.5 L, MCHC 30.4 L, RDW Std Deviation 57.0 H, RDW Coeff of Nicholas 19.0 H, Plt Count 144 L, MPV 11.7, Immature Gran % (Auto) 0.900, Neut % (Auto) 71.6 H, Lymph % (Auto) 18.4 L, Barton % (Auto) 6.9, Eos % (Auto) 1.5, Baso % (Auto) 0.7, Absolute Neuts (auto) 3.2, Absolute Lymphs (auto) 0.83, Nucleated RBC % 0, Sodium 134 L, Potassium 3.7, Chloride 102, Carbon Dioxide 28.0, Anion Gap 4 L, BUN 22 H, Creatinine 0.70, Estim Creat Clear Calc 46.31, Est GFR (MDRD) Af Amer 103, Est GFR (MDRD) Non-Af 85, BUN/Creatinine Ratio 31.3 H, Glucose 344 H, Calcium 8.9, Phosphorus 2.6, Magnesium 1.9, Total Bilirubin 0.70, AST 102 H, ALT 91 H, Alkaline Phosphatase 273 H, Total Protein 6.2 L, Albumin 2.6 L, Globulin 3.6, Albumin/Globulin Ratio 0.7 L, TSH 4.32 H 08/15/23 06:29: POC Glucose 315 H Physical Exam Const alert and no apparent distress Resp normal respiratory effort, no retractions, no use of accessory muscles and clearto auscultation bilaterally Cardio regular rate, regular rhythm, S1 normal heart sound and S2 normal heart sound GI normal to inspection, nondistended, normoactive bowel sounds, soft to palpation,non-tender and non-distended Extremity normal to inspection Neuro Sensorium / Orientation: awake and alert Assessment & Plan Assessment/Plan (1) Hyperglycemia: (2) Acute dehydration: (3) Acute UTI: (4) Adult failure to thrive: PLAN: Plan Severe Hyperglycemia of 681 mg/dL * improving * without DKA nor HONK in DM2 * Glargine 45 units nightly and SSI * Give Lantus 45 units sq once now plus cover with SSI. * A1c is 11.7. Possible UTI * UA equivocal * on CTX * follow up UCx. Debility * PT OT CM/SW * Plan for discharge to fpc facility Chronic conditions: * Hyperlipidemia - Resume statin as previous. * Hypothyroidism - Continue Synthroid and check TSH. * History of renal calculi - Noted with no evidence of recurrence. * Chronic depression - Continue Escitalopram. * GERD - Protonix dosing to be resumed. * OA - Stable. Give Tylenol prn. DVT prophylaxis - Lovenox 40 mg sq daily. Charges/Coding Visit Charges Inpatient E&M: 90248 Subs Hosp L2 08/15/23 1505 <Electronically signed by Carl Couch DO> Cosigner Signature (if applicable): CC: ~ Signed [facility] Work Phone: [phone] Miscellaneous Notes* Telephone Encounter - Rich Richmond LPN - 08/15/2023 9:11 AM EST Spoke with Cristin and pt was discharged on Aspirin. Pt is back in the hospital per Cristin. Rich Richmond LPN * Telephone Encounter - Marimar Shields LPN - 08/14/2023 10:29 AM EST Attempted to contact Cristin [facility] but no answer. Left providers message and asked about aspirin. Ask Cristin to call office and ask to speak to a nurse regarding aspirin. * Telephone Encounter - Maria Guadalupe Rabago APRN.LUIS - 08/14/2023 9:33 AM EST Okay for home health care. She should follow medication orders from discharge of the hospital, aspirin does appear to be on the discharge medication orders. Why is home health care asking about 81 mg aspirin? Please schedule hospital discharge follow-up visit * Telephone Encounter - Rich Richmond LPN - 08/13/2023 3:04 PM EST Cristin with [facility] calling to let you know did start of care today. They will be seeing pt 2 timesa week for 1 week, then 2 times [...] pt to get hospital FU apt booked.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 levothyroxine 25 mcg tablet 25 mcg PO .MWF thyroid 08/09/23 glipizide 10 mg tablet 10 mg PO BID #60 tabs 08/12/23 08/12/23 1313 <Electronically signed by Macarena Doyle> Date _ Macarena Doyle Cosigner Signature (if applicable): Date CC: ~ Signed [facility] Work Phone: 1(526) 244-613402-13-2024 Discharge summary Author Wes Alva [facility] August 12, 2023 1:06pm Note Date/Time August 12, 2023 12:59pm [facility] Medical Records Department [facility] [place] [address] [place] [address] Instructions for Home/Discharge Instructions 08/12/23 1258 MR#: [id number] Acct: [id number] Name: STEVE VIEIRA Rep #:[id number] : 1945 78 From: Wes Alva DO PCP: Dr. Peter Ellis MD Status:AD M IN Discharge Instructions Diet Discharge Diet: 1800 Calorie Control Diet Activity Discharge Activity: Return to Normal Activity Weight Bearing Status: Full weight bearing Follow Up Care Test Results: Test results from this visit will be discussed in further detail at your follow- up appointment, if applicable. Discharge Plan Admission Admit Date/Time: 08/09/23 13:58 Primary Reason for Your Visit: debility, anemia Attending Provider: Wes Alva Primary Care Provider: Peter Ellis Consulting Providers: Mitzy Strauss Discharge Orders/Prescriptions Prescriptions: New glipizide 10 mg tablet 10 mg PO BID Qty: 60 0RF Continued levothyroxine 50 MCG tablet 50 mcg PO DAILY Patient Comments: THYROID MEDICATION pantoprazole 40 MG tablet 40 mg PO BREAKFAST Patient Comments: ROWENA ON EMPTY STOMACH, 1/2HR BEFORE MEAL -ACID REFLUX metformin 500 MG tablet extended release 24 hr 2,000 mg PO BREAKFAST Patient Comments: -FOR DIABETES atorvastatin 40 MG tablet 40 mg PO QHS aspirin 81 MG tablet 81 mg PO DAILY@0800 escitalopram oxalate 10 MG tablet 10 mg PO DAILY ferrous gluconate 236 MG tablet 65 mg PO BID empagliflozin 10 MG tablet 10 mg PO DAILY [facility] 25 mcg tablet [facility] Patient Comments: in addition to the 50mcg. so total of 75mcg on MWF Discontinued glipizide 10 mg tablet extended release 24hr 10 mg PO DAILY Referrals / Follow Up: Peter Ellis MD [Primary Care Provider] - Within 2 Weeks Disposition Disposition (needs filled in before D/C Order can be placed): Home Health Service 08/12/23 1306<Electronically signed by Wes Alva DO>Wes Alva DO CC: Dr. Mitzy Strauss MD; Dr. Peter Ellis MD ~ Signed [facility] Work Phone: [phone]) 883-776602-13-2024 Miscellaneous Notes* Telephone Encounter - Yesenia Yarbrough Cma - 08/12/2023 8:55 AM EST [facility] notified and verbalized understanding Yesenia Yarbrough Cma * Telephone Encounter - Peter Ellis MD - 08/11/2023 7:46 PM EST Below noted May give verbal orders Make sure have up to date discharge summary and medication list gets reconciled. * Telephone Encounter - Alta Ortiz LPN - 08/11/2023 12:49 PM EST [facility] with [facility] HH calls to report pt is going to be discharged from [facility] today with orders for Nursing, PT, and OT. [facility] is requesting a VO from provider that pcp will follow pt while in HH. Alta Ortiz LPN documented in this encounterTri[facility]24 Progress note Author Wes Alva [facility] August 11, 2023 5:13pm Note Date/Time August 11, 2023 5:06pm [facility] Medical Records Department [address] [place] [address] Progress Note - Hospitalist 08/11/23 1703 MR#: [id number] Acct: [id number] Name: STEVE VIEIRA Rep #:[id number] : 1945 78 From: Wes Alva DO PCP: Dr. Peter Elils MD Status:AD M IN Location: [facility] [id number] Reason for Visit Reason for Visit: Diagnoses Adult failure to thrive (08/09/23) Subjective Subjective Patient was seen and examined today, her hemoglobin this morning was 6.8, I havedecided to transfuse the patient with 2 units packed red blood cells. Patient'srecent iron level was low, the etiology of her chronic anemia is unclear at thistime, she has not had a stool Hemoccult performed because she has not had a stool yet. Objective Data Objective Data Vital Signs: Vital Signs Temp Pulse Resp BP Pulse Ox O2 Del Method 97.8 F 72 16 109/56 L 96 Room Air 08/11/23 13:41 08/11/23 13:41 08/11/23 13:41 08/11/23 13:41 08/11/23 13:41 08/11/23 13:41 Oxygen Delivery Method Room Air Weight: 58.967 kg Body Mass Index (BMI) 26.2 Intake & Output: Intake and Output for Last 24 Hours 08/09/23 08/10/23 08/11/23 23:59 23:59 23:59 Intake Total 3489.58 / 3489.58 3760 / 3760 2491.67 / 2491.67 Output Total 1950 / 1950 1250 / 1250 Balance 3489.58 / 3489.58 1810 / 1810 1241.67 / 1241.67 Lab / Micro Data 08/11/23 05:18 08/11/23 05:18 Labs: Laboratory Results - last 24 hr 08/10/23 15:29: POC Glucose > 500 H* 08/10/23 22:42: POC Glucose 268 H 08/11/23 05:18: WBC 4.7, RBC 3.00 L, Hgb 6.8 L, Hct 24.7 L, MCV 82.3, MCH 22.7 L, MCHC 27.5 L, RDW Std Deviation 53.3 H, RDW Coeff of Nicholas 18.8 H, Plt Count 161,MPV 11.5, Immature Gran % (Auto) 1.500 H, Neut % (Auto) 66.6, Lymph % (Auto) 20.9, Barton % (Auto) 8.9, Eos % (Auto) 1.7, Baso % (Auto) 0.4, Absolute Neuts (auto)3.2, Absolute Lymphs (auto) 0.99, Nucleated RBC % 0, Sodium 139, Potassium 3.6, Chloride 109 H, Carbon Dioxide 24.0, Anion Gap 6, BUN 16, Creatinine 0.60, EstimCreat Clear Calc 45.06, Est GFR (MDRD) Af Amer 123, Est GFR (MDRD) Non-Af 102, BUN/Creatinine Ratio 26.6 H, Glucose 269 H, Calcium 8.2 L, Vitamin B12 329 08/11/23 06:04: POC Glucose 229 H 08/11/23 11:40: POC Glucose 413 H Micro: Microbiology 08/09/23 12:00 Mucosa - Nose SARS-CoV-2, Influenza & RSV (PCR) - Final Physical Exam Const alert and no apparent distress HEENT head/scalp atraumatic and moist oral mucous membranes Eyes EOMs intact bilaterally and conjunctivae normal Neck supple and no JVD Resp normal respiratory effort, no retractions, no use of accessory muscles and clearto auscultation bilaterally Cardio regular rate, regular rhythm, S1 normal heart sound, S2 normal heart sound and no murmurs GI normal to inspection, nondistended, normoactive bowel sounds, soft to palpation,non-tender and non-distended Extremity normal to inspection Neuro CN's II-XII intact bilaterally, moves all extremities and no focal motor deficits Sensorium / Orientation: awake, alert, oriented to person and oriented to place Psych affect normal Assessment & Plan Assessment/Plan (1) Adult failure to thrive: PLAN: Plan 1. Acute debility-patient is being seen by PT and OT, at this time the patient would like to be discharged home rather than go to a fpc facility, due to her anemia today however she will need to stay and get transfused. #2 chronic iron deficiency anemia-etiology unclear, patient has not had a stool so a Hemoccult has not been performed, patient will receive 2 units of packed red blood cells and H&H will be rechecked tomorrow #3 type 2 diabetes-patient's blood sugars will be monitored, sliding scale insulin will be used as needed #4 chronic depression-patient is on Lexapro #5 hypothyroidism-patient is on levothyroxine Total clinical time spent by myself addressing patient's medical issues, reviewing all of her data, and collaborating with patient's care team: 35 minutes Charges/Coding Visit Charges Inpatient E&M: 84448 Subs Hosp L2 08/11/23 1713 <Electronically signed by Wes Alva DO> Cosigner Signature (if applicable): CC: ~ Signed [facility] Work Phone: 1(358) 611-931302-11-2024 Progress note Author Mitzy Strauss [facility] August 10, 2023 9:52am Note Date/Time August 10, 2023 7:17am [facility] Medical Records Department [address] [place] [address] Progress Note - Hospitalist 08/10/23 0715 MR#: [id number] Acct: [id number] Name: STEVE VIEIRA Rep #:[id number] : 1945 78 From: Mitzy Strauss MD PCP: Dr. Peter Ellis MD Status:AD M IN [id number] Reason for Visit Reason for Visit: Diagnoses Adult failure to thrive (08/09/23) Subjective Subjective Patient seen remains free of significant drop in patient hemoglobin level. Ordered iron studies as well as stool guaiac. Patient was on Lovenox for DVT prophylaxis discontinued Objective Data Objective Data Vital Signs: Vital Signs Temp Pulse Resp BP Pulse Ox O2 Del Method 97.9 F 76 16 106/54 L 98 Room Air 08/10/23 06:00 08/10/23 06:00 08/10/23 06:00 08/10/23 06:00 08/10/23 06:00 08/10/23 06:00 Oxygen Delivery Method Room Air Weight: 58.967 kg Body Mass Index (BMI) 26.2 Intake & Output: Intake and Output for Last 24 Hours 08/08/23 08/09/23 08/10/23 23:59 23:59 23:59 Intake Total 3489.58 / 3489.58 360 / 360 Output Total 800 / 800 Balance 3489.58 / 3489.58 -440 / -440 Lab / Micro Data 08/10/23 05:47 08/10/23 05:42 Labs: Laboratory Results - last 24 hr 08/09/23 11:25: WBC 8.7, RBC 3.77 L, Hgb 8.6 L, Hct 30.4 L, MCV 80.6 L, MCH 22.8L, MCHC 28.3 L, RDW Std Deviation 51.1 H, RDW Coeff of Nicholas 18.1 H, Plt Count 221, MPV 11.7, Immature Gran % (Auto) 0.800, Neut % (Auto) 76.1 H, Lymph % (Auto) 14.9 L, Barton % (Auto) 6.6, Eos % (Auto) 0.9, Baso % (Auto) 0.7, Absolute Neuts (auto) 6.6, Absolute Lymphs (auto) 1.29, Nucleated RBC % 0, Sodium 133 L, Potassium 4.0, Chloride 97 L, Carbon Dioxide 25.0, Anion Gap 11, BUN 17, Creatinine 0.76, Est GFR (MDRD) Af Amer 94, Est GFR (MDRD) Non-Af 78, BUN/Creatinine Ratio 22.3 H, Glucose 386 H, Calcium 9.3, Total Bilirubin 0.90, AST 53 H, ALT 42, Alkaline Phosphatase 186 H, Total Creatine Kinase 42, Total Protein 7.4, Albumin 3.3, Globulin 4.1, Albumin/Globulin Ratio 0.8 L, TSH 4.30 H 08/09/23 12:05: Urine Color Yellow, Urine Clarity Clear, Urine pH 5.0, Ur Specific [place] 1.015, Urine Protein 15 H, Urine Glucose (UA) 1000 H, Urine Ketones 150 A*, Urine Occult Blood 10 H, Urine Nitrite Negative, Urine Bilirubin Negative, Urine Urobilinogen Normal, Ur Leukocyte Esterase Negative, Urine RBC 0SEEN, Urine WBC 0 SEEN, Ur Squamous Epith Cells 0 SEEN, Urine Bacteria 0 SEEN, Urine Mucus 0 SEEN 08/09/23 15:58: POC Glucose 475 H* 08/09/23 22:01: POC Glucose > 500 H* 08/09/23 22:12: Glucose 570 H* 08/10/23 05:42: Sodium 135 L, Potassium 3.8, Chloride 103, Carbon Dioxide 25.0, Anion Gap 7, BUN 21 H, Creatinine 0.68, Estim Creat Clear Calc 45.06, Est GFR (MDRD) Af Amer 107, Est GFR (MDRD) Non-Af 88, BUN/Creatinine Ratio 30.7 H, Glucose 366 H, Calcium 9.0, Phosphorus 2.6, Magnesium 2.2 08/10/23 05:47: WBC 4.8, RBC 3.17 L, Hgb 7.1 L, Hct 26.0 L, MCV 82.0, MCH 22.4 L, MCHC 27.3 L, RDW Std Deviation 52.3 H, RDW Coeff of Nicholas 18.3 H, Plt Count 156,MPV 11.8, Immature Gran % (Auto) 1.300 H, Neut % (Auto) 65.9, Lymph % (Auto) 20.6, Barton % (Auto) 9.7, Eos % (Auto) 1.7, Baso % (Auto) 0.8, Absolute Neuts (auto) 3.1, Absolute Lymphs (auto) 0.98, Nucleated RBC % 0 08/10/23 06:22: POC Glucose 318 H Micro: Microbiology 08/09/23 12:00 Mucosa - Nose SARS-CoV-2, Influenza & RSV (PCR) - Final Radiography Diagnostic Testing: Radiology Impression Brain CT 08/09/23 11:[address]: 1[address] evidence of intracranial bleeding, acute ischemic infarct or acute intracranial abnormality. 2. Chronic white matter changes in both cerebral hemispheres. 3. Interval resolution of small right frontal skull soft tissue scalp hematoma or compared to 09/21/2022. Electronically Signed: Hai Cardenas MD at 13:03 EST , Chest X-Ray 08/09/23 12:30 IMPRESSION: No radiographic evidence of acute cardiopulmonary disease. Electronically Signed: Hai Cardenas MD at 12:41 EST , Physical Exam Narrative GENERAL: Frail looking, unkempt HEENT: Atraumatic; normocephalic EYES; Anicteric, Normal Conjunctiva NECK; supple, normal thyroid, RESPIRATORY: Diminished to auscultation CARDIOVASCULAR: Regular S1 S2, GI: soft, normoactive bowel sounds, : No Renal angle tenderness; EXTREMITIES: No edema, no clubbing, MUSCULOSKELETAL: no muscle wasting NEURO: Awake; no lateralizing signs. SKIN: No Rash PSYCH; Flat affect Assessment & Plan Assessment/Plan (1) Adult failure to thrive: PLAN: Plan Patient is an 78-year-old female admitted with adult failure to thrive 1. Adult failure to thrive ? With failure to take care of oneself. Patient has been admitted to regular nursing floor requested for PT OT eval and social research assistant to assist with discharge planning ? 08/10/2023 awaiting PT OT eval 2. Dehydration ? Secondary to decreased oral intake patient started on IV fluid with subsequentmonitoring of electrolyte 3. Hyponatremia ? Suspected to be secondary to hypovolemic hyponatremia on IV fluids with repeatBMP ordered for a.m. 4. Diabetes mellitus type 2 ? Patient presented with hyperglycemia 3 suspected noncompliance with medication. Patient placed on Accu-Cheks before meals and at bedtime, long-acting insulin as well as sliding scale coverage 5. Hypothyroidism - Patient is on levothyroxine home dose continued 6. Dyslipidemia -Patient is on statin therapy, continued at home dose 7. Anemia - Secondary to chronic disorder monitoring H&H and transfuse if patient becomes symptomatic or hemoglobin falls below 7. Patient is on oral iron continued ? 08/10/2023 significant drop in patient hemoglobin level patient is on Lovenox for DVT prophylaxis this was discontinued, ordered iron studies as well as stoolguaiac 8. GERD ? On PPI 9. Depression ? Patient is on thyroid continue 10. DVT prophylaxis ? SC Lovenox Time spent in the patient's overall evaluation,decision-making process, review of diagnostic data, adjustment of management, discussion with other providers, nursing nursing and ancillary staff involved in patient's care documentation, 50minutes Charges/Coding Visit Charges Inpatient E&M: 99247 Subs Hosp L3 08/10/23 1702 <Electronically signed by Mitzy Strauss MD> Cosigner Signature (if applicable): CC: ~ Signed [facility] Work Phone: 1([phone] 992-307702-10-2024 Discharge summary Author Santos Mckeon [facility] August 09, 2023 4:50pm Note Date/Time August 09, 2023 11:52am [facility] Medical Records Department [address] [place] [address] Emergency Department Summary 08/09/23 MR#: [id number] Acct: [id number] Name: STEVE VIEIRA Rep #:[id number] : 1945 78 From: Clayton LIRA PCP: Dr. Peter Ellis MD Status:AD M IN Location: [facility] [place]7 HPI <PANKAJ Harris - Last Filed: 08/09/23 14:00> History of Present Illness Chief Complaint: Weakness Narrative Narrative: Patient is an 78-year-old female with history of diabetes Hypothyroidism howeverstates is not taking her medication as prescribed presenting to the emergency department for failure to thrive. Patient was brought in by ambulance, on the ambulance form, does show that the patient has poor living conditions. I spoke with the patient, patient states for the last 6 days, she has been feeling wonky. Patient states that she is just confused, she is having trouble getting around. Patient looks disheveled, patient is wet, states that she does not change her diaper like she is supposed to. Patient denies any fever or chills. Patient states that she is hungry and thirsty. PFSH <PANKAJ Harris - Last Filed: 08/09/23 14:00> [facility] Medical History Head injury Home Medications glipizide 5 mg tablet 20 mg PO DINNER 06/07/14 [History Last Taken Unknown] levothyroxine 50 mcg tablet 50 mcg PO DAILY 06/07/14 [History Last Taken Unknown] metformin 500 mg tablet,extended release 24 hr 2,000 mg PO BREAKFAST 06/07/14 [History Last Taken Unknown] pantoprazole 40 mg tablet,delayed release 40 mg PO BREAKFAST 06/07/14 [History Last Taken Unknown] aspirin 81 mg tablet,delayed release 81 mg PO DAILY@0800 05/28/19 [History Last Taken Unknown] atorvastatin 40 mg tablet 40 mg PO QHS 05/28/19 [History Last Taken Unknown] empagliflozin 10 mg tablet 10 mg PO DAILY 05/28/19 [History Last Taken Unknown] escitalopram oxalate 10 mg tablet 10 mg PO DAILY 05/28/19 [History Last Taken Unknown] ferrous gluconate 236 mg (27 mg iron) tablet 65 mg PO BID 05/28/19 [History Last Taken Unknown] Allergy/AdvReac Type Severity Reaction Status Date / Time venlafaxine HCl Allergy Rash Verified 08/09/23 11:14 [From Effexor] meclizine AdvReac Other Verified 08/09/23 11:14 Surgical History H/O: section History of cholecystectomy History of knee joint replacement Social History Smoking Status: Never smoker ROS <PANKAJ Harris - Last Filed: 08/09/23 14:00> ROS ED ROS Narrative Constitutional: No fever, no chills. Positive generalized weakness HEENT: No sore throat. No neck pain. No loss of vision. No rhinorrhea. Positive for excessive thirst Cardiovascular: No chest pain. No palpitations. No pedal edema. Respiratory: No cough, no shortness of breath. Abdominal: No abdominal pain. No nausea. No vomiting. Genitourinary: No dysuria. No hematuria. Musculoskeletal: No myalgias. No arthralgias. Neurologic: No headaches. No dizziness. No lightheadedness. Skin: No rash. No change in color. Psychiatric: No depression. No anxiety. EXAM <PANKAJ Harris - Last Filed: 08/09/23 14:00> Physical Exam Narrative Exam Narrative: On my initial evaluation, the patient is poorly unkempt, patient smells of staleurine. Patient is alert and orient x 3. Patient states she is extremely thirsty and hungry. She does state that the house that she is living in is not very clean. She does know that she does not change her briefs often enough, sheknows that she is wet. Patient does have some strangers coming and going through her house. Patient does have an abrasion to the left forehead however states that she does not remember falling. Afebrile. Vital signs noted. HEENT: Normocephalic. Atraumatic. PERRL, EOMI. Neck soft and supple. No pointtenderness or step off. Pupils are equal round reactive to light. Patient doeshave abrasion to the forehead. Cardiovascular: Regular rate and rhythm. No murmurs, rubs, or gallops appreciated. Respiratory: No tachypnea. Lungs clear to auscultation bilaterally. Gastrointestinal: Abdomen soft, nontender, with normoactive bowel sounds. No rebound or guarding. Neurological: Awake. Alert. Nonfocal, nonlateralizing. Skin: No rash. Normal color. No pallor. Musculoskeletal: No pedal edema. Full range of motion extremities. Const Vital Signs: 08/09/23 11:14 08/09/23 11:16 08/09/23 13:36 Temperature 96.8 F L Temperature Source Temporal Pulse Rate 89 76 Respiratory Rate 18 16 Respiratory Effort Normal Respiratory Pattern Normal Blood Pressure 117/64 115/65 Blood Pressure Mean 81 81 Pulse Ox 96 99 Oxygen Delivery Method Room Air Room Air Positive unkempt General Appearance ED: unkempt Psych Appearance: unkempt <Dr. Santos Mckeon MD - Last Filed: 08/09/23 13:32> Physical Exam Const Vital Signs: 08/09/23 11:14 08/09/23 11:16 08/09/23 13:36 Temperature 96.8 F L Temperature Source Temporal Pulse Rate 89 76 Respiratory Rate 18 16 Respiratory Effort Normal Respiratory Pattern Normal Blood Pressure 117/64 115/65 Blood Pressure Mean 81 81 Pulse Ox 96 99 Oxygen Delivery Method Room Air Room Air [facility] <PANKAJ Harris - Last Filed: 08/09/23 14:00> [facility] Lab Data Labs: Laboratory Results - last 24 hr 08/09/23 08/09/23 11:25 12:05 WBC 8.7 RBC 3.77 L Hgb 8.6 L Hct 30.4 L MCV 80.6 L MCH 22.8 L MCHC 28.3 L RDW Std Deviation 51.1 H RDW Coeff of Nicholas 18.1 H Plt Count 221 MPV 11.7 Immature Gran % (Auto) 0.800 Neut % (Auto) 76.1 H Lymph % (Auto) 14.9 L Barton % (Auto) 6.6 Eos % (Auto) 0.9 Baso % (Auto) 0.7 Absolute Neuts (auto) 6.6 Absolute Lymphs (auto) 1.29 Nucleated RBC % 0 Sodium 133 L Potassium 4.0 Chloride 97 L Carbon Dioxide 25.0 Anion Gap 11 BUN 17 Creatinine 0.76 Est GFR (MDRD) Af Amer 94 Est GFR (MDRD) Non-Af 78 BUN/Creatinine Ratio 22.3 H Glucose 386 H Calcium 9.3 Total Bilirubin 0.90 AST 53 H ALT 42 Alkaline Phosphatase 186 H Total Creatine Kinase 42 Total Protein 7.4 Albumin 3.3 Globulin 4.1 Albumin/Globulin Ratio 0.8 L TSH 4.30 H Urine Color Yellow Urine Clarity Clear Urine pH 5.0 Ur Specific Meridian 1.015 Urine Protein 15 H Urine Glucose (UA) 1000 H Urine Ketones 150 A* Urine Occult Blood 10 H Urine Nitrite Negative Urine Bilirubin Negative Urine Urobilinogen Normal Ur Leukocyte Esterase Negative Urine RBC 0 SEEN Urine WBC 0 SEEN Ur Squamous Epith Cells 0 SEEN Urine Bacteria 0 SEEN Urine Mucus 0 SEEN Radiography Diagnostic Testing: Clinical Impression(s) from Imaging Studies Brain CT 08/09/23 11:50 IMPRESSION: 1. No CT evidence of intracranial bleeding, acute ischemic infarct or acute intracranial abnormality. 2. Chronic white matter changes in both cerebral hemispheres. 3. Interval resolution of small right frontal skull soft tissue scalp hematoma or compared to 09/21/2022. Electronically Signed: Hai Cardenas MD at 13:03 EST Reading Location ID and State: [facility] / [place] , Service support , Chest X-Ray 08/09/23 12:30 IMPRESSION: No radiographic evidence of acute cardiopulmonary disease. Electronically Signed: Hai Cardenas MD at 12:41 EST , EKG EKG shows normal sinus rhythm: Attestation: I personally reviewed and interpreted this EKG as follows: Interpretation: Sinus Rhythm Comments: Sinus rhythm, rate of 72 bpm, UT 190 ms, QRS duration 78 ms, no acute ST elevation, no acute infarct noted Treatment and Re-Evaluation :: Patient appears to be unkempt, vital signs are stable, patient appears to be in no respiratory distress. Patient presents to the emergency department for failure to thrive, I do believe that social work should be included in her care. Differential diagnosis includes failure to thrive, multiple falls, UTI, elevated blood sugar. Upon my initial evaluation, the patient might benefit from admission for social standpoint however the patient does smell of strong urine, patient's blood sugar is elevated. Patient is slightly confused however she does answer questions appropriately. Patient received a chest x-ray as wellas CT scan of the brain to rule out any intracranial bleeding, pneumonia. Basiclaboratory values looking for any leukocytosis, anemia, electrolyte abnormality,dehydration. Patient received IV fluids. She was given 1 glass of water. She will be reevaluated. The radiology exams ordered for this patient will be read by the emergency department attending. From these reads a plan of care will be put into place. Patient's brain CT shows no evidence of any intracranial bleeding or acute process. Patient's chest x-ray showed no radiographic evidence of acute cardiopulmonary disease. Patient's laboratory values showed some anemia with a hemoglobin 8.6, the last hemoglobin completed was in May 2019 when it was 10.7, patient looks to be chronically anemic. Patient's sodium was 133 slightlylow. Creatinine was unremarkable. Patient's blood glucose was 386, this is secondary to patient not taking her medication. Alkaline phosphatase was elevated 186, TSH was 4.30, this again is because she is not taking her medication. Urinalysis was positive for ketones however negative for any infection. At this time, secondary to patient's poor living conditions, inability to care for self, the patient unkempt appearance, I do believe the patient would benefit from admission to the hospital and social work admit. I will speak to the hospitalist. Patient stable for admission. <Dr. Santos Mckeon MD - Last Filed: 08/09/23 13:32> [facility] Narrative Medical decision making narrative: I have personally performed a face to face assessment of the patient and have reviewed the SHADIA Note. I performed a substantive portion of the visit including all aspects of the following. My rob findings include: History is 78-year-old female who is alone at home. Son: Recent squad for well check Arrived home. And her conditions were very poor. The concern is she is not able to take care of herself, has not been eating well and has not been taking her medications as prescribed. States that she has had some nausea and vomiting. Patient does have a history of diabetes. Exam is [78-year-old female vital signs are stable. Afebrile. She does not look septic toxic. HEENT exam dry mucous membranes. Pupils round reactive light. No trauma. Neck nontender. Lungs clear to auscultation. Heart regular rhythm no murmur rate about 90. Chest wall nontender. Abdomen soft nontender. Back nontender. Moving all 4 extremities. Her nails are overgrown and poorly cared for. She has dirt and hair on her feet from the ground. Neurologically she is awake and alert. Answer questions following commands. Moving all 4 extremities. She has pale skin consistent with anemia.] Medical Decision Making [elderly female with acute on chronic anemia with mild dehydration and elevated blood sugar with a history of diabetes. She will need admitted for failure to thrive. She is receiving IV fluids here. Will speak to the hospitalist about admission.] Other additions or changes: [None] History & Record Review Discussion w/independent historian: Patient Additional record(s) reviewed:: Prior inpatient record, Prior outpatient record, Prior ED visit, Prior labs and No prior records Lab Data Attestation: I reviewed the patient's lab results. Lab results narrative: CBC white count 8.7. H&H 8.6 and 30. Platelets 221. Sodium 133. Gap 11. BUN/creatinine 17 and 0.7. Glucose 386. Liver enzymes alk phos 186. TSH is elevated at 4.3. UA no infection but ketones. UA negative. Ketones. Consistent with dehydration. Chest x-ray chronic. CT brain chronic changes. Labs: Laboratory Results - last 24 hr 08/09/23 08/09/23 11:25 12:05 WBC 8.7 RBC 3.77 L Hgb 8.6 L Hct 30.4 L MCV 80.6 L MCH 22.8 L MCHC 28.3 L RDW Std Deviation 51.1 H RDW Coeff of Nicholas 18.1 H Plt Count 221 MPV 11.7 Immature Gran % (Auto) 0.800 Neut % (Auto) 76.1 H Lymph % (Auto) 14.9 L Barton % (Auto) 6.6 Eos % (Auto) 0.9 Baso % (Auto) 0.7 Absolute Neuts (auto) 6.6 Absolute Lymphs (auto) 1.29 Nucleated RBC % 0 Sodium 133 L Potassium 4.0 Chloride 97 L Carbon Dioxide 25.0 Anion Gap 11 BUN 17 Creatinine 0.76 Est GFR (MDRD) Af Amer 94 Est GFR (MDRD) Non-Af 78 BUN/Creatinine Ratio 22.3 H Glucose 386 H Calcium 9.3 Total Bilirubin 0.90 AST 53 H ALT 42 Alkaline Phosphatase 186 H Total Creatine Kinase 42 Total Protein 7.4 Albumin 3.3 Globulin 4.1 Albumin/Globulin Ratio 0.8 L TSH 4.30 H Urine Color Yellow Urine Clarity Clear Urine pH 5.0 Ur Specific [place] 1.015 Urine Protein 15 H Urine Glucose (UA) 1000 H Urine Ketones 150 A* Urine Occult Blood 10 H Urine Nitrite Negative Urine Bilirubin Negative Urine Urobilinogen Normal Ur Leukocyte Esterase Negative Urine RBC 0 SEEN Urine WBC 0 SEEN Ur Squamous Epith Cells 0 SEEN Urine Bacteria 0 SEEN Urine Mucus 0 SEEN Radiography Diagnostic Testing: Clinical Impression(s) from Imaging Studies Brain CT 08/09/23 11:50 IMPRESSION: 1. No CT evidence of intracranial bleeding, acute ischemic infarct or acute intracranial abnormality. 2. Chronic white matter changes in both cerebral hemispheres. 3. Interval resolution of small right frontal skull soft tissue scalp hematoma or compared to 09/21/2022. Electronically Signed: Hai Cardenas MD at 13:03 EST Reading Location ID and State: [facility] / [place] , Service support , Chest X-Ray 08/09/23 12:30 IMPRESSION: No radiographic evidence of acute cardiopulmonary disease. Electronically Signed: Hai Cardenas MD at 12:41 EST , Discharge Plan Dx/Rx/DC Orders Clinical Impression: Acute dehydration, Hyperglycemia due to diabetes mellitus, Adult failure to thrive, Chronic anemia Disposition Disposition: [facility] What to do if you have Problems For any increased pain, shortness of breath, bleeding, nausea or vomiting, chest pain, or any unexpected problems, contact your Primary Care Provider. Call [facility] ([phone]) or report to the closest Emergency Room. Call 911 if necessary. 08/09/23 1400 <Electronically signed by Clayton Abreu [employer]> Cosigner Signature (if applicable): 08/09/23 1650 <Electronically signed by Santos Mckeon MD> CC: Dr. Peter Ellis MD ~ Signed [facility] Work Phone: 1(675) 968-691902-10-2024 History and physical note Author Mitzy Strauss [facility] August 09, 2023 2:25pm Note Date/Time August 09, 2023 1:59pm [facility] Medical Records Department [address] [place] [address] H&P Exam - Hospitalist 08/09/23 1359 MR#: [id number] Acct: [id number] Name: STEVE VIEIRA Rep #:[id number] : 1945 78 From: Mitzy Strauss MD PCP: Dr. Peter Ellis MD Status:RE G ER Location: ED HPI - General General Date of Admission: 08/09/23 Date of Service: 08/09/23 Chief Complaint: Failure to thrive HPI Narrative STEVE VIEIRA, is a 78 F with multiple comorbidities including hypothyroidism, diabetes mellitus type 2 who was brought to the emergency department by EMS. Patient son who is apparently out of town called EMS to go check up on the mom. Patient was found in squalid conditions. She did complainof progressive generalized weakness over the past 6 days. Patient denied any fall. In the emergency department patient was found to be unkempt. Diagnostic workup was consistent with dehydration decision was made to admit patient for subsequent inpatient workup [facility] Medical History Head injury Home Medications glipizide 5 mg tablet 20 mg PO DINNER 06/07/14 [History Last Taken Unknown] levothyroxine 50 mcg tablet 50 mcg PO DAILY 06/07/14 [History Last Taken Unknown] metformin 500 mg tablet,extended release 24 hr 2,000 mg PO BREAKFAST 06/07/14 [History Last Taken Unknown] pantoprazole 40 mg tablet,delayed release 40 mg PO BREAKFAST 06/07/14 [History Last Taken Unknown] aspirin 81 mg tablet,delayed release 81 mg PO DAILY@0800 05/28/19 [History Last Taken Unknown] atorvastatin 40 mg tablet 40 mg PO QHS 05/28/19 [History Last Taken Unknown] empagliflozin 10 mg tablet 10 mg PO DAILY 05/28/19 [History Last Taken Unknown] escitalopram oxalate 10 mg tablet 10 mg PO DAILY 05/28/19 [History Last Taken Unknown] ferrous gluconate 236 mg (27 mg iron) tablet 65 mg PO BID 05/28/19 [History Last Taken Unknown] Allergy/AdvReac Type Severity Reaction Status Date / Time venlafaxine HCl Allergy Rash Verified 08/09/23 11:14 [From Effexor] meclizine AdvReac Other Verified 08/09/23 11:14 Surgical History H/O: section History of cholecystectomy History of knee joint replacement Social History Smoking Status: Never smoker ROS ROS Narrative GENERAL: denies fever, chills, night sweats, weight loss, anorexia HEENT: denies headache, sinus congestion, or drainage, dysphagia RESPIRATORY: denies cough, sputum production, shortness of breath, dyspnea on exertion CARDIAC: denies chest pain, palpitations, orthopnea, PND GASTROINTESTINAL: denies abdominal pain, nausea, vomiting, melena, GENITOURINARY: denies dysuria, urgency, frequency, heamaturia EXTREMITY: denies swelling MUSCULOSKELETAL: denies current joint pain or tenderness NEUROLOGIC: denies focal numbness, weakness, tingling HEMATOLOGIC: denies easy bruising and/or hemorrhage INTEGUMENT: denies rashes PSYCHIATRIC: denies suicidal or homicidal ideation Vital Signs Vital Signs Vital Signs: 08/09/23 11:14 08/09/23 11:16 08/09/23 13:36 Temperature 96.8 F L Temperature Source Temporal Pulse Rate 89 76 Respiratory Rate 18 16 Respiratory Effort Normal Respiratory Pattern Normal Blood Pressure 117/64 115/65 Blood Pressure Mean 81 81 Pulse Ox 96 99 Oxygen Delivery Method Room Air Room Air Physical Exam Narrative GENERAL: Frail looking, unkempt HEENT: Atraumatic; normocephalic EYES; Anicteric, Normal Conjunctiva NECK; supple, normal thyroid, RESPIRATORY: Diminished to auscultation CARDIOVASCULAR: Regular S1 S2, GI: soft, normoactive bowel sounds, : No Renal angle tenderness; EXTREMITIES: No edema, no clubbing, MUSCULOSKELETAL: no muscle wasting NEURO: Awake; no lateralizing signs. SKIN: No Rash PSYCH; Flat affect Results Lab / Micro Data 08/09/23 11:25 08/09/23 11:25 Labs: Laboratory Results - last 24 hr 08/09/23 11:25: WBC 8.7, RBC 3.77 L, Hgb 8.6 L, Hct 30.4 L, MCV 80.6 L, MCH 22.8L, MCHC 28.3 L, RDW Std Deviation 51.1 H, RDW Coeff of Nicholas 18.1 H, Plt Count 221, MPV 11.7, Immature Gran % (Auto) 0.800, Neut % (Auto) 76.1 H, Lymph % (Auto) 14.9 L, Barton % (Auto) 6.6, Eos % (Auto) 0.9, Baso % (Auto) 0.7, Absolute Neuts (auto) 6.6, Absolute Lymphs (auto) 1.29, Nucleated RBC % 0, Sodium 133 L, Potassium 4.0, Chloride 97 L, Carbon Dioxide 25.0, Anion Gap 11, BUN 17, Creatinine 0.76, Est GFR (MDRD) Af Amer 94, Est GFR (MDRD) Non-Af 78, BUN/Creatinine Ratio 22.3 H, Glucose 386 H, Calcium 9.3, Total Bilirubin 0.90, AST 53 H, ALT 42, Alkaline Phosphatase 186 H, Total Creatine Kinase 42, Total Protein 7.4, Albumin 3.3, Globulin 4.1, Albumin/Globulin Ratio 0.8 L, TSH 4.30 H 08/09/23 12:05: Urine Color Yellow, Urine Clarity Clear, Urine pH 5.0, Ur Specific [place] 1.015, Urine Protein 15 H, Urine Glucose (UA) 1000 H, Urine Ketones 150 A*, Urine Occult Blood 10 H, Urine Nitrite Negative, Urine BilirubinNegative, Urine Urobilinogen Normal, Ur Leukocyte Esterase Negative, Urine RBC 0SEEN, Urine WBC 0 SEEN, Ur Squamous Epith Cells 0 SEEN, Urine Bacteria 0 SEEN, Urine Mucus 0 SEEN Micro: Microbiology 08/09/23 12:00 Mucosa - Nose SARS-CoV-2, Influenza & RSV (PCR) - Final Imaging Radiology Impression Brain CT 08/09/23 11:50 IMPRESSION: 1. No CT evidence of intracranial bleeding, acute ischemic infarct or acute intracranial abnormality. 2. Chronic white matter changes in both cerebral hemispheres. 3. Interval resolution of small right frontal skull soft tissue scalp hematoma or compared to 09/21/2022. Electronically Signed: Hai Cardenas MD at 13:03 EST , Chest X-Ray 08/09/23 12:30 IMPRESSION: No radiographic evidence of acute cardiopulmonary disease. Electronically Signed: Hai Cardenas MD at 12:41 EST , Assessment & Plan Assessment/Plan (1) Adult failure to thrive: PLAN: Plan Patient is an 78-year-old female admitted with adult failure to thrive 1. Adult failure to thrive ? With failure to take care of oneself. Patient has been admitted to regular nursing floor requested for PT OT eval and social research assistant to assist with discharge planning 2. Dehydration ? Secondary to decreased oral intake patient started on IV fluid with subsequentmonitoring of electrolyte 3. Hyponatremia ? Suspected to be secondary to hypovolemic hyponatremia on IV fluids with repeatBMP ordered for a.m. 4. Diabetes mellitus type 2 ? Patient presented with hyperglycemia 3 suspected noncompliance with medication. Patient placed on Accu-Cheks before meals and at bedtime, long-acting insulin as well as sliding scale coverage 5. Hypothyroidism - Patient is on levothyroxine home dose continued 6. Dyslipidemia -Patient is on statin therapy, continued at home dose 7. Anemia - Secondary to chronic disorder monitoring H&H and transfuse if patient becomes symptomatic or hemoglobin falls below 7. Patient is on oral iron discontinued 8. GERD ? On PPI 9. Depression ? Patient is on thyroid continue 10. DVT prophylaxis ? SC Lovenox Time spent in the patient's overall evaluation,decision-making process, review of diagnostic data, adjustment of management, discussion with other providers, nursing nursing and ancillary staff involved in patient's care documentation, 75minutes Advance planning; did discuss with the patient Regarding advanced directives aswell as CODE STATUS. Did explain the various scenarios involved ( FULL CODE, DNR CCA, DNR CCA with no intubation, and DNR CC and what each meant) patient elected remain full code with CPR and intubation if needed. Order was placed. Time spent on discussion 18 minutes. Charges/Coding Visit Charges Inpatient E&M: 90937 Init Hosp L3 Procedures Hospitalists Procedures: 11810 Advncd Care Plan 30 Min 08/09/23 1425 <Electronically signed by Mitzy Strauss MD> Cosigner Signature (if applicable): CC: Dr. Mitzy Strauss MD; Dr. Peter Ellis MD~ Signed [facility] Work Phone: 1(812) 400-668812-18-2023 NotePatient Outreach (DOMINICKPHARMSVC) STEVE VIEIRA ([id number]) 1945 F Date Time Provider Department 06/16/23 JADON DELGADO During your visit today, we recorded the following information about you: [employer]ume ([employer])Sharon 07/17/2023 3:08 AM Signed This patient has been referred by pharmacy for dog control officer patient assistance program advisory application developer. Patient is currently enrolled in the patient assistance program through 2022. This encounter is for the program renewal through 2023. STATUS OF APPLICATION: Can be viewed under the encounter Additional Documentation > SmartForms: [facility] [place] [facility]IN[facility] PATIENT ASSISTANCE Completed forms sent to the dog control officer will be available under Scanned Documents in the patient's chart. The finalized form can be found under PAP_Medication Name_Complete. PAP Garment Sorter Team will submit and track progress on the completed PAP application. Please do NOT fax to dog control officer unless directed by the PAP Garment Sorter Team. Please see SmartForm described above for specifics. Please DO NOT close this encounter. Sent to patient: Contacted patient to verify information for application. Sent to prescriber: Sent to prescriber. Confirmation Received. Sent to dog control officer: Allergies As of Date: 06/16/2023 Noted Allergy [...] subcutaneously one time a week. Gets through [employer] PAP. - empagliflozin (JARDIANCE) 25 mg tablet Take 1 tablet by mouth daily with breakfast. Gets through [employer] PAP. - ferrous sulfate 325 mg (65 [...] B12 deficiency [E53.8] 08/13/2021 Encounter Status:Closed by [employer] on 07/17/23[facility] 04-22-2023 Miscellaneous Notes* Telephone Encounter - Renetta Abernathy LPN - 04/22/2023 1:40 PM EDT MILLA Rabago completed these. They have been faxed back to the company. * Telephone Encounter - Sherwin Che MSW - 04/21/2023 10:20 AM EDT Lesli spoke with patient and verified that patient Jardiance medication is the only medication that she applies to [facility] for assistance. Lesli will take forms to Dr. Ellis office for prescription completion. documented in this encounterTrihealth [facility]09-06-2023 Miscellaneous Notes* Telephone Encounter - Sherwin Che MSW - 03/05/2023 12:01 PM EDT Lesli spoke with patient in regards to [employer] and discount cab vouchers. Sw has updated brochures with transit cost and stops. Sw will mail [employer] brochures and [facility] Older Adult resource guide to patient home. Patient noted that she would appreciate updated [employer] stop info and discount cabvoucher guidelines. * Telephone Encounter - Sherwin Che MSW - 03/04/2023 11:55 AM EDT Sw left message for patient that Sw has updated [employer] stop info and discounted cab pass info. Lesli noted in message to patient to let this Sw know if patient would like info mailed out to her and if she has any other social service needs. documented in this encounterTrihealth Bethesda North Hospital09-01-2023 Instructions* Patient Instructions* Peter Ellis MD - 02/28/2023 3:12 PM EDT Start iron tablet over the counter 1 pill on Friday, Friday and Friday. Dose is up to you. documented in this encounterTrihealth Bethesda North Hospital09-01-2023 NoteHNO ID: [id number] Author: Peter Ellis MD Service: ? Author Type: Physician Type: Progress Notes Filed: 03/31/2023 12:27 AM Note Text: This note was created using [employer] Network[employer]. Subjective Steve Vieira is a 77 year old female. Patient presents with: 4 month follow up: Labs prior SUBJECTIVE: Steve Vieira is a 77 year old year old [...] subcutaneously one time a week. Gets through [employer] PAP. empagliflozin (JARDIANCE) 25 mg tablet Take 1 tablet by mouth daily with breakfast. Gets through [employer] PAP. ferrous sulfate 325 mg (65 mg [...] (H) Estimated Average Gluc (more content not included)...[facility] 02-28-2023 History of Present illness Narrative* Peter Ellis MD - 02/28/2023 2:54 PM EDT This note was created using [employer]. Subjective Steve Vieira is a 77 year old female. Patient presents with: 4 month follow up: Labs prior SUBJECTIVE: Steve Vieira is a 77 year old year old lady here today for 4 month follow up appointmentfor review of medical conditions. Noted that car [...] subcutaneously one time a week. Gets through [employer] PAP. empagliflozin (JARDIANCE) 25 mg tablet Take 1 tablet by mouth daily with breakfast. Gets through [employer] PAP. ferrous sulfate 325 mg (65 mg [...] 64.9 kg (143 lb) SpO2 97% BMI 28.88kg/m Physical Exam Hemoglobin A1C (%) Date Value [...] the date of the service which included [id number] patient care, completing clinical documentation, obtaining and/or reviewing separately obtained history, performing a medically appropriate examination, counseling and educating the patient/family/caregiver, and ordering medications, tests, or procedures. Peter Ellis MD documented in this encounterTrihealth Bethesda North Hospital08-17-2023 Miscellaneous Notes* Telephone Encounter - Barbara Villagomez RN - 02/13/2023 8:15 AM EDT Left detailed vm informing patient of lab orders. * Telephone Encounter - Peter Ellis MD - 02/12/2023 7:14 PM EDT Filed order * Telephone Encounter - Radha Lea MA - 02/10/2023 9:28 AM EDT Patient asking for lab orders to be completed prior to 02/28/23 appt. Radha Lea MA documented in this encounterTrihealth Bethesda [facility] Hospital03-16-2023 Miscellaneous Notes* Telephone Encounter - Jadon Delgado [facility] - 09/12/2022 12:08 PM EDT During PharmD visit today, it was noted patient has NOT been taking many of her medications. Patient would benefit greatly from adherence packaging. The following prescriptions need sent to [facility] and are pended for PCP/C T TECH's signature: Requested Prescriptions Pending Prescriptions Disp Refills [...] 1-[address] any labs for thyroidlevels or CBC/iron levels if clinically indicated. Thanks! Jadon Delgado PharmD, [facility] Primary Care Clinical Pharmacist documented in this encounterTrihealth Bethesda North Hospital03-16-2023 History of Present illness Narrative* Jadon Delgado RPh - 09/12/2022 11:00 AM EDT Primary Care Pharmacy Visit CC (Reason for Consult): Diabetes Goal: A1c < 8% Collaborating Provider: Dr. Ellis Last Provider Visit: 04/15/22 Steve Vieira is a 77 year old female presenting [...] prescriptions renewed: atorvastatin, glipizide, pantoprazole, Jardiance 10mg. I'mall confused. States she switched insurance. Used to get prescriptions through the mail through [facility]. [facility] - needs all meds [facility]. [...] changed insurance; thinks [facility] preferred Rx coverage: [facility] Medicare Affordability: no issues Diabetes [...] takes 2 tabs at night if can't sleep.Denies any hx MA/stroke. Denies GI issues though problem list indicates [...] subcutaneously one time a week. Gets through [employer] PAP. Taking 3mg weekly empagliflozin (JARDIANCE) 25 mg tablet Take 1 tablet by mouth daily with breakfast. Gets through [employer] PAP. Has Jardiance 10mg tablets. Taking 1 [...] medication, wonders if happened around the time insurancechanges; will send refill request to PCP Jardiance -- ran out of the 10mg tabs; [employer] shadia completed for 25mg tabs --> PharmD called [employer] (on hold for ~30 mins); confirmed she [...] this time given age and recent data showingincreased risk in patients >70 yo; removed from med list Patient would benefit greatly from adherence packaging. PharmD called [facility] to see if theyaccept patient's insurance and preventative maintenance technician believes it would be accepted. PharmD provided patient info and insurance information. Will have all prescriptions sent to [facility] through their adherence packaging and mail delivery service Patient due for labwork. Requested she have drawn in the next 1-2 weeks, she was agreeable to doingso. 2. Type 2 diabetes mellitus without complication, without long-term current use of insulin (HCC) - ICD9: 250.00, ICD10: E11.9 A1c goal < 8%; uncontrolled (last A1c 11.9%); no SMBG log to review; patient reports consistently taking metformin and Trulicity and tolerating fine; is out of glipizide and Jardiance --> needsscript sent to new pharmacy for glipizide and need to contact [employer] regarding Jardiance status; patient interested in CGM though doesn't qualify through insurance, will need to use fingersticks, th ough priority is taking meds consistently; renal fxn [...] on 10/10. Patient verbalized understanding of instructions. Jadon Delgado PharmD, [facility] Primary Care Clinical Pharmacist The majority of the pharmacy visit (> 50%) was spent counseling and/or coordinating care for thepatient. interaction: telephonic time was 90 minutes. documented in this encounterTrihealth Bethesda [facility] Hospital01-26-2023 History of Present illness Narrative* Jadon Delgado RPh - 07/25/2022 2:30 PM EST Primary Care Pharmacy Visit CC (Reason for Consult): Diabetes Goal: A1c < 8% Collaborating Provider: Dr. Ellis Last Provider Visit: 04/15/22 Steve Vieira is a 77 year old female presenting [...] modifications and med adherence encouraged. Consult to [facility] to see if qualifies for Medicaid. [...] doing things. Not eating properly. Sleeping OK butdays and nights are mixed up. No thoughts of harming self or others. No SI/HI. I'm just so alone.Doesn't want to do counseling. Received a shipment [...] sleeping in Pharmacy: [facility] Rx coverage: [facility] Medicare Affordability: no issues Diabetes [...] Patient never contacted the Medicaid # that provided to see if she qualifies for Medicaid. PharmD provided her with the number again and strongly encouraged her to call Nonadherence: Seems likely that patient is not taking meds consistently based on external fill hx. She is missing AM meds 1-2x/week, discussed relocating pill box to a more obvious location (ie rightnext to the couch). Patient also says she can no longer use [facility] and doesn't know what pharmacy is preferred by her new insurance --> PharmD advised her to contact her insurance companythis week to learn who preferred mail order pharmacy is and then to notify office so PCP can send scripts over to new location Patient notes having depression. Denies SI/HI. Strongly encouraged her to pursue counseling and f/up with PCP. Follow-up Patient is scheduled to see PCP team on 08/13. Patient to have f/up with PharmD team on 09/12. Patient verbalized understanding of instructions. Jadon Delgado PharmD, [facility] Primary Care Clinical Pharmacist The majority of the pharmacy visit (> 50%) was spent counseling and/or coordinating care for thepatient. interaction: face to face time was 45 minutes. documented in this encounterTrihealth Bethesda [facility] Hospital01-26-2023 Instructions* Patient Instructions* Jadon Delgado RPh - 07/25/2022 2:30 PM EST Call Medicaid Shared Services number .[phone], to reach out to our area services to see about material that they could provide to patient regarding how Medicaid assistance works with Medicare.You can be screen over the phone to see if you qualify for Medicaid. Call your insurance company to learn what your preferred mail order pharmacy is. Call the office torequest that your medications be sent to your [...] to the 25mg tablets. documented in this encounterTrihealth Bethesda North Hospital01-10-2023 Miscellaneous Notes* Telephone Encounter - Renetta Abernathy LPN - 07/09/2022 2:28 PM EST Rec'd fax from [facility] patient assistance program. This says pt is approved from 07/09/22 to 06/29/2023 unless pts circumstances changes. documented in this encounterTrihealth Bethesda [facility] Hospital12-22-2022 Miscellaneous Notes* Telephone Encounter - OSITO Newsome - 06/20/2022 2:32 PM EST Sw and patient discussed Medicare Savings Programs [...] provided patient with Medicaid Shared Services number [phone], to reach out to our area services to see about material that they could provide to patient regarding how Medicaid assistance works with Medicare. Sw noted that calling above number can be screened over the phone for Medicaid. Patient reports that she will call after the of the year as she is busy with the holidays. documented in this encounterTrihealth Bethesda North Hospital12-22-2022 History of Present illness Narrative* Jadon Delgado, [facility] - 06/20/2022 11:00 AM EST Primary Care Pharmacy Visit CC (Reason for Consult): Diabetes Goal: A1c < 8% Collaborating Provider: Dr. Ellis Last Provider Visit: 04/15/22 Steve Vieira is a 76 year old female presenting [...] by mouth once daily. Reports it was neverdelivered by pharmacy (though dispense hx shows it [...] complication, without long-term current use of insulin ([facility]) - ICD9: 250.00, ICD10: E11.9 (primary diagnosis) [...] occasional SMBG and making sure taking all medsdaily as prescribed; much education about DM provided; gets Jardiance and Trulicity through PAP and tolerating well --> will order higher doses with 2022 application; renal fxn and LFTs sufficientfor use CONTINUE metformin ER 2000mg daily, glipizide [...] external fill hx (only meds filled since Januaryare escitalopram (which patient reports never receiving), metformin, [...] Fill pill box according to med list toensure taking all Rx meds as prescribed. Reviewed [...] on 07/25/22. Patient verbalized understanding of instructions. Jadon Delgado PharmD, [facility] Primary Care Clinical Pharmacist The majority of the pharmacy visit (> 50%) was spent counseling and/or coordinating care for thepatient. interaction: face to face time was 65 minutes. documented in this encounterTrihealth Bethesda [facility] Hospital12-22-2022 Instructions* Patient Instructions* Jadon Delgado RPh - 06/20/2022 11:00 AM EST Start checking your feet daily for cuts, scrapes, injury. Let doctor know right away if you notice any sign of infection. For next PharmD visit, please bring in all of your medications for review. Start checking your fasting blood sugar 2-3 times per week. Please write the numbers down and bringyour blood sugar log and your meter to your next visit with me. Please go home and organize your medications. Make sure you are taking all of your prescription medications on your med list as prescribed. Use your pill box if it makes it easier. Let our office know if you need refills. documented in this encounterTrihealth Bethesda [facility] Hospital12-01-2022 Miscellaneous Notes* Telephone Encounter - Jadon Delgado RPh - 05/30/2022 12:44 PM EST PAP technicians completed PAP application. PCP portion placed on PCP's desk. Will get patient's signatures at upcoming appt on 06/20. Jadon Delgado PharmD, [facility] Primary Care Clinical Pharmacist documented in this encounterTrihealth Bethesda North Hospital11-18-2022 Miscellaneous Notes* Telephone Encounter - Quyen Ramos - 05/17/2022 11:02 AM EST Patient has been identified by name and date of : Yes Last office visit in this department: Visit date not found RX INSTRUCTIONS: Patient aware RX will be sent to pharmacy. No need to notify patient. Patient phones requesting refills as follows: Requested Prescriptions No prescriptions requested or ordered in this encounter Please review and advise. Quyen Ramos documented in this encounterTrihealth Bethesda North Hospital10-31-2022 Miscellaneous Notes* Telephone Encounter - Jadon Delgado RPh - 04/29/2022 9:43 AM EDT Patient recently referred by PCP to [facility] for DM mngt Called patient to schedule initial appt Unable to reach patient, no dialtone when calling. 3rd outreach attempt for patient, will plan to send letter. Jadon Delgado PharmD, [facility] Clinical Pharmacist Malcolm Torres [facility] documented in this encounterTrihealth Bethesda North Hospital10-18-2022 Miscellaneous Notes* Telephone Encounter - HUGO Nicole - 04/16/2022 10:57 AM EDT Telephoned the patient to schedule a new Primary Care pharmacy appt. Unable to leave a message. Phone saying the call did not go through. documented in this encounterTrihealth Bethesda North Hospital07-13-2022 Instructions* Patient Instructions* Harsha Ortiz MD - 01/09/2022 10:56 AM EDT Images from the original note were not included. documented in this encounterTrihealth Bethesda North Hospital07-13-2022 History of Present illness Narrative* Harsha Ortiz MD - 01/09/2022 10:47 AM EDT Assessment and Plan 1. Nuclear senile cataract [...] others. I have seen and examined Steve Vieira. I have discussed the case and the management of this patient's care with the Resident/Fellow, if applicable. I also have reviewed and agree with the assessment and plan as stated above and agree withall of its relevant components. Harsha Ortiz MD documented in this encounterTrihealth Bethesda North Hospital06-14-2022 History of Present illness Narrative* Peter Ellis MD - 12/11/2021 2:20 PM EDT This note was created using [employer] Networkriter. Subjective Steve Vieira is a 76 year old female. Patient presents with: Follow Up SUBJECTIVE: Steve Vieira is a 76 year old year old lady here today for 4 month follow up appointmentfor review of medical conditions. Just de la [...] - CBC - IRON + TIBC Peter Ellis MD documented in this encounterTrihealth Bethesda [facility] Hospital03-28-2022 Miscellaneous Notes* Telephone Encounter - Maciej Lopez RPh - 09/24/2021 4:40 PM EDT This encounter was opened in error. @[email or web address]@ documented in this encounterTrihealth Bethesda North Hospital02-14-2022 History of Past illness Narrative* Problem [...] of this encounter (statuses as of 03/31/2023) [facility] History of Past illness Narrative* Problem [...] of this encounter (statuses as of 04/22/2023) [facility] History of Past illness Narrative* Problem [...] of this encounter (statuses as of 08/12/2023) [facility] History of Past illness Narrative* Problem [...] of this encounter (statuses as of 08/14/2023) [facility] History of Past illness Narrative* Problem [...] of this encounter (statuses as of 08/15/2023) [facility] History of Past illness Narrative* Problem [...] of this encounter (statuses as of 08/29/2023) [facility]07-28[facility] History of Past illness Narrative* Problem Noted Date Resolved Date Uncontrolled type 2 diabetes mellitus without complication, without long-term current use of insulin 01/25/2016 08/20/2018 HYPOTHYROIDISM NOS 03/24/2007 04/02/2015 DIABETES MELLITUS TYPE II-UNCOMPL 01/05/2007 04/02/2015 Depressive disorder, not elsewhere classified 04/02/2015 HYPERLIPIDEMIA NEC/NOS 01/05/2007 5 documented as of this encounter (statuses as of 09/24/2021) [facility] History of Past illness Narrative* Problem Noted Date Resolved Date Uncontrolled type 2 diabetes mellitus without complication, without long-term current use of insulin 01/25/2016 08/20/2018 HYPOTHYROIDISM NOS 03/24/2007 04/02/2015 DIABETES MELLITUS TYPE II-UNCOMPL 01/05/2007 04/02/2015 Depressive disorder, not elsewhere classified 04/02/2015 HYPERLIPIDEMIA NEC/NOS 01/05/2007 5 documented as of this encounter (statuses as of 01/09/2022) [facility] of Past illness Narrative* Problem Noted Date Resolved Date Uncontrolled type 2 diabetes mellitus without complication, without long-term current use of insulin 01/25/2016 08/20/2018 HYPOTHYROIDISM NOS 03/24/2007 04/02/2015 DIABETES MELLITUS TYPE II-UNCOMPL 01/05/2007 04/02/2015 Depressive disorder, not elsewhere classified 04/02/2015 HYPERLIPIDEMIA NEC/NOS 01/05/2007 5 documented as of this encounter (statuses as of 02/02/2022) [facility] of Past illness Narrative* Problem Noted Date Resolved Date Uncontrolled type 2 diabetes mellitus without complication, without long-term current use of insulin 01/25/2016 08/20/2018 HYPOTHYROIDISM NOS 03/24/2007 04/02/2015 DIABETES MELLITUS TYPE II-UNCOMPL 01/05/2007 04/02/2015 Depressive disorder, not elsewhere classified 04/02/2015 HYPERLIPIDEMIA NEC/NOS 01/05/2007 5 documented as of this encounter (statuses as of 04/16/2022) [facility] of Past illness Narrative* Problem Noted Date Resolved Date Uncontrolled type 2 diabetes mellitus without complication, without long-term current use of insulin 01/25/2016 08/20/2018 HYPOTHYROIDISM NOS 03/24/2007 04/02/2015 DIABETES MELLITUS TYPE II-UNCOMPL 01/05/2007 04/02/2015 Depressive disorder, not elsewhere classified 04/02/2015 HYPERLIPIDEMIA NEC/NOS 01/05/2007 5 documented as of this encounter (statuses as of 04/29/2022) [facility] of Past illness Narrative* Problem Noted Date Resolved Date Uncontrolled type 2 diabetes mellitus without complication, without long-term current use of insulin 01/25/2016 08/20/2018 HYPOTHYROIDISM NOS 03/24/2007 04/02/2015 DIABETES MELLITUS TYPE II-UNCOMPL 01/05/2007 04/02/2015 Depressive disorder, not elsewhere classified 04/02/2015 HYPERLIPIDEMIA NEC/NOS 01/05/2007 5 documented as of this encounter (statuses as of 05/17/2022) [facility] of Past illness Narrative* Problem Noted Date Resolved Date Uncontrolled type 2 diabetes mellitus without complication, without long-term current use of insulin 01/25/2016 08/20/2018 HYPOTHYROIDISM NOS 03/24/2007 04/02/2015 DIABETES MELLITUS TYPE II-UNCOMPL 01/05/2007 04/02/2015 Depressive disorder, not elsewhere classified 04/02/2015 HYPERLIPIDEMIA NEC/NOS 01/05/2007 5 documented as of this encounter (statuses as of 05/30/2022) [facility] of Past illness Narrative* Problem Noted Date Resolved Date Uncontrolled type 2 diabetes mellitus without complication, without long-term current use of insulin 01/25/2016 08/20/2018 HYPOTHYROIDISM NOS 03/24/2007 04/02/2015 DIABETES MELLITUS TYPE II-UNCOMPL 01/05/2007 04/02/2015 Depressive disorder, not elsewhere classified 04/02/2015 HYPERLIPIDEMIA NEC/NOS 01/05/2007 5 documented as of this encounter (statuses as of 06/21/2022) [facility] of Past illness Narrative* Problem Noted Date Resolved Date Uncontrolled type 2 diabetes mellitus without complication, without long-term current use of insulin 01/25/2016 08/20/2018 HYPOTHYROIDISM NOS 03/24/2007 04/02/2015 DIABETES MELLITUS TYPE II-UNCOMPL 01/05/2007 04/02/2015 Depressive disorder, not elsewhere classified 04/02/2015 HYPERLIPIDEMIA NEC/NOS 01/05/2007 5 documented as of this encounter (statuses as of 06/21/2022) [facility] of Past illness Narrative* Problem Noted Date Resolved Date Uncontrolled type 2 diabetes mellitus without complication, without long-term current use of insulin 01/25/2016 08/20/2018 HYPOTHYROIDISM NOS 03/24/2007 04/02/2015 DIABETES MELLITUS TYPE II-UNCOMPL 01/05/2007 04/02/2015 Depressive disorder, not elsewhere classified 04/02/2015 HYPERLIPIDEMIA NEC/NOS 01/05/2007 5 documented as of this encounter (statuses as of 07/09/2022) [facility] of [facility] illness Narrative* Problem Noted Date Resolved Date Uncontrolled type 2 diabetes mellitus without complication, without long-term current use of insulin 01/25/2016 08/20/2018 HYPOTHYROIDISM NOS 03/24/2007 04/02/2015 DIABETES MELLITUS TYPE II-UNCOMPL 01/05/2007 04/02/2015 Depressive disorder, not elsewhere classified 04/02/2015 HYPERLIPIDEMIA NEC/NOS 01/05/2007 5 documented as of this encounter (statuses as of 07/25/2022) [facility]2016 History of Past illness Narrative* Problem Noted Date Resolved Date Uncontrolled type 2 diabetes mellitus without complication, without long-term current use of insulin 01/25/2016 08/20/2018 HYPOTHYROIDISM NOS 03/24/2007 04/02/2015 DIABETES MELLITUS TYPE II-UNCOMPL 01/05/2007 04/02/2015 Depressive disorder, not elsewhere classified 04/02/2015 HYPERLIPIDEMIA NEC/NOS 01/05/2007 5 documented as of this encounter (statuses as of 09/12/2022) [facility] History of Past illness Narrative* Problem Noted Date Resolved Date Uncontrolled type 2 diabetes mellitus without complication, without long-term current use of insulin 01/25/2016 08/20/2018 HYPOTHYROIDISM NOS 03/24/2007 04/02/2015 DIABETES MELLITUS TYPE II-UNCOMPL 01/05/2007 04/02/2015 Depressive disorder, not elsewhere classified 04/02/2015 HYPERLIPIDEMIA NEC/NOS 01/05/2007 5 documented as of this encounter (statuses as of 09/12/2022) [facility] History of Past illness Narrative* Problem Noted Date Diagnosed Date Resolved Date Uncontrolled type 2 diabetes mellitus without complication, without long-term current use of insulin 01/25/2016 08/20/2018 HYPOTHYROIDISM NOS 03/24/2007 5 DIABETES MELLITUS TYPE II-UNCOMPL 01/05/2007 04/02/2015 Depressive disorder, not elsewhere classified 01/06/20 07 04/02/2015 HYPERLIPIDEMIA NEC/NOS 01/05/200704/02 documented as of this encounter (statuses as of 02/13/2023) [facility] History of Past illness Narrative* Problem Noted Date Diagnosed Date Resolved Date Uncontrolled type 2 diabetes mellitus without complication, without long-term current use of insulin 01/25/2016 08/20/2018 HYPOTHYROIDISM NOS 03/24/2007 5 DIABETES MELLITUS TYPE II-UNCOMPL 01/05/2007 04/02/2015 Depressive disorder, not elsewhere classified 01/06/20 07 04/02/2015 HYPERLIPIDEMIA NEC/NOS 01/05/200704/02 documented as of this encounter (statuses as of 03/05/2023) [facility] note* Diagnosis OPENED IN ERROR- Primary To allow closing an encounter opened in error (used in SmartSet) documented in this encounter [facility] note* Diagnosis Combined forms of age-related cataract of both eyes- Primary Other and combined forms of senile cataract Type 2 diabetes mellitus without retinopathy (HCC) Type II or unspecified type diabetes mellitus without mention of complication, not stated as uncontrolled [id number] corneal dystrophy of both eyes [facility]* Diagnosis Uncontrolled type 2 diabetes mellitus with hyperglycemia (HCC)- Primary Recurrent kidney stones Calculus of kidney Esophageal reflux Depression, unspecified depression type Hyperlipidemia, unspecified hyperlipidemia type Acquired hypothyroidism Unspecified hypothyroidism B12 deficiency Other B-complex deficiencies Encounter for long-term current use of medication Iron deficiency anemia, unspecified iron deficiency anemia type documented in this encounter [facility]* Diagnosis Esophageal reflux Persistent depressive disorder documented in this encounter [facility] note* Diagnosis Controlled type 2 diabetes mellitus without complication, without long-term current use of insulin (HCC)- Primary Medication management Encounter for long-term (current) use of other medications documented [facility] this encounter [facility]* Diagnosis Type 2 diabetes mellitus without complication, without long-term current use of insulin (HCC)- Primary Medication management Encounter for long-term (current) use of other medications [facility] noteNo assessment information availableWProMedica F[facility] Work Phone: Evaluation note* Diagnosis Medication management- Primary Encounter for long-term (current) use of other medications Type 2 diabetes mellitus without complication, without long-term current use of insulin (HCC) Hyperlipidemia, unspecified hyperlipidemia type documented in this encounter [facility] note* Diagnosis Esophageal reflux Persistent depressive disorder Acquired hypothyroidism Unspecified hypothyroidism documented in this encounter [facility] note* Diagnosis Acquired hypothyroidism- Primary Unspecified hypothyroidism B12 deficiency Other B-complex deficiencies Hyperlipidemia, unspecified hyperlipidemia type Iron deficiency anemia, unspecified iron deficiency anemia type Uncontrolled type 2 diabetes mellitus with hyperglycemia (HCC) documented in this encounter [facility] note* Diagnosis Acquired hypothyroidism- Primary Unspecified hypothyroidism Type 2 diabetes mellitus without complication, without long-term current use of insulin (HCC) Iron deficiency anemia, unspecified iron deficiency anemia type B12 deficiency Other B-complex deficiencies Vitamin D deficiency Unspecified vitamin D deficiency Encounter for long-term current use of medication [facility]* Diagnosis Onset Date Resolution Status Acute dehydration acute Adult failure to thrive acut e Hyperglycemia due to diabetes mellitus acute Chronic anemia chronic [facility] Work Phone: Evaluation note* Diagnosis Onset Date Resolution Status Acute dehydration acute Adult failure to thrive acut e Hyperglycemia due to diabetes mellitus acute Chronic anemia chronic Acute UTI acute Adult failure to thrive acut e Hyperglycemia acute [facility] Work Phone: Evaluation note* Diagnosis Onset Date Resolution Status Acute dehydration acute Adult failure to thrive acut e Hyperglycemia due to diabetes mellitus acute Chronic anemia chronic Acute dehydration acute Acute UTI acute Adult failure to thrive acut e Hyperglycemia acute [facility] Work Phone: Evaluation note* Diagnosis Elevated LFTs- Primary Other abnormal blood chemistry documented in this encounter [facility] note* Diagnosis Onset Date Resolution Status Chronic anemia chronic Acute UTI acute Adult failure to thrive acut e Hyperglycemia acute [facility] Work Phone: Evaluation note* Diagnosis Encounter for therapeutic drug monitoring- Primary Acquired hypothyroidism Unspecified hypothyroidism Iron deficiency anemia, unspecified iron deficiency anemia type Type 2 diabetes mellitus without complication, without long-term current use of insulin (HCC) documented in this encounter [facility] note* Diagnosis Uncontrolled type 2 diabetes mellitus with hyperglycemia (HCC)- Primary Urinary incontinence without sensory awareness Incontinence without sensory awareness Weakness Other malaise and fatigue Elevated LFTs Other abnormal blood chemistry Anemia, unspecified type Frequent falls Personal history of fall documented in this encounter [facility] for referral (narrative)* Diagnostic Procedure Only (Routine) - Pending Review Specialty Diagnoses / Procedures Referred By Theresa amaro Referred To Contact US IMAGING Diagnoses Elevated LFTs Procedures US ABD RIGHT UPPER QUADRANT US ABDOMINAL REAL TIME W/IMAGE LIMITED Orin Sosa APRN.C T TECH [address] [place] [address] Us Imaging [id number] Referral ID Status Reason Start Date Expiration Date Visits Requested Visits Authorized [id number] Pending Review Auto-Generat ed Referral 08/27/2023 09/25/2024 1 1 [facility] for referral (narrative)No reason for referral information availableWProMedica Flower Hospital Work Phone: Summary Purpose Family History No Family History Records FoundNo Family History Records FoundNo Family History Records Found Advance Directives Documents on File Type Date Recorded Patient Chief Dietitian Expl anation Advance Directive(s) Advance Directive Response Recorded Date/ Time Advance Directives No June 07, 2014 12:02pm Living Will No May 28 019 12:36pm Power of Chief Medical Director No May 28, 2019 12:36pm Advance Directive Response Recorded Date/ Time Advance Directives No June 07, 2014 1:02pm Living Will Yes September 21, 2022 2:29pm Power of Chief Medical Director No September 21 2:29pm Advance Directive Response Recorded Date/ Time Advance Directives No June 07, 2014 12:02pm Living Will No August 09 024 3:47pm Power of Chief Medical Director No August 09, 2023 3:47pm Advance Directive Response Recorded Date/ Time Advance Directives No June 07, 2014 12:02pm Living Will No August 15, 024 12:18am Power of Chief Medical Director No August 15, 2023 12:18am Advance Directive Response Recorded Date/ Time Name of Medical Power of Chief Medical Director leola daily August 15, 2023 3:01am Advance Directives No June 07, 2014 12:02pm Living Will Yes August 15, 024 3:01am Power of Chief Medical Director Yes August 15, 2023 3:01am Advance Directive Response Recorded Date/ Time Name of Medical Power of Chief Medical Director leola daily August 15, 2023 4:01am Advance Directives No June 07, 2014 1:02pm Living Will Yes August 15, 024 4:01am Power of Chief Medical Director Yes August 15, 2023 4:01am Advance Directive Response Recorded Date/ Time Advance Directives No June 07, 2014 1:02pm Medications Administered Section Active Administered Medications - up to 3 most recent administrations Medication Order MAR Action Action Date Dose Rate Site fluorescein-benoxinate 0.25-0.4 % 1 Drop (FLURESS) 1 Drop, BOTH EYES, DIRECTED, Starting on Fri01/09/22 at 1000, Until Fri01/09/22 at 2158, Administer for applanation tonometry. In the event of a Fluress shortage, administer [place]-Fluor 1 drop into both eyes as directed [...] Given 01/09/2022 10:00 AM EDT 1 Drop Chief Complaint and Reason for Visit Chief Complaint FALL Chief Complaint FALL Head injury Chief Complaint DEHYDRATION weakness DEHYDRATION DEHYDRATION Reason for Visit Acute dehydration Adult failure to thrive Hyperglycemia due to diabetes mellitus Chronic anemia Chief Complaint DEHYDRATION weakness DEHYDRATION DEHYDRATION HYPERGLYCEMIA, UTI & ADULT FAILURE TO THRIVE Reason for Visit Acute dehydration Adult failure to thrive Hyperglycemia due to diabetes mellitus Chronic anemia Acute UTI Adult failure to thrive Hyperglycemia Chief Complaint DEHYDRATION weakness DEHYDRATION DEHYDRATION HYPERGLYCEMIA, UTI & ADULT FAILURE TO THRIVE HYPERGLYCEMIA, UTI & ADULT FAILURE TO THRIVE Reason for Visit Acute dehydration Adult failure to thrive Hyperglycemia due to diabetes mellitus Chronic anemia Acute dehydration Acute UTI Adult failure to thrive Hyperglycemia Chief Complaint DEHYDRATION weakness DEHYDRATION DEHYDRATION DEHYDRATION HYPERGLYCEMIA, UTI & ADULT FAILURE TO THRIVE HYPERGLYCEMIA, UTI & ADULT FAILURE TO THRIVE ELEVATED LFTS Reason for Visit Chronic anemia Acute UTI Adult failure to thrive Hyperglycemia Chief Complaint Admit Date SKILLED NURSING LAB WORK June 21 5:30am SKILLED NURSING LAB WORK September 20, 2024 5 :00am Chief Complaint Admit Date SKILLED NURSING LAB WORK December 14, 2024 5: 00am SEPSIS March 03, 2025 4:06pm Reason for Referral Specialty Diagnoses / Procedures Referred By Theresa amaro Referred To Contact Diagnoses Uncontrolled type 2 diabetes mellitus with hyperglycemia (HCC) Peter Ellis MD [address] [place] [address] Referral ID Status Reason Start Date Expiration Date Visits Re quested Visits Authorized [id number] Closed 1 1 Referral ID Status Reason Start Date Expiration Date V isits Requested Visits Authorized [id number] Authorized 11/12/2023 06/29/2024 1 1 Additional Source Comments INFORMATION SOURCE (unrecogn ized section and content) DATE CREATED AUTHOR 04/04/2019 [facility] DATE CREATED AUTHOR AUTHOR'S ORGANIZ ATION 12/06/2023 [facility] DATE CREATED AUTHOR AUTHOR'S ORGANIZ ATION 01/13/2025 [facility] Source Comments (unrecognize d section and content) In the event this informatio n is protected by the Federal Confidentiality of Alcohol and Drug Abuse Patient Records regulations: The Federal rules restrict any use of the information to criminally investigate or prosecute any alcohol or drug abuse patient.[facility] the event this information is protected by the Federal Confidentiality of Alcohol and Drug Abuse Patient Records regulations: The Federal rules restrict any use of the information to criminally investigate or prosecute any alcohol or drug abuse patient.[facility] Hospital[facility] the event this information is protected by the Federal Confidentiality of Alcohol and Drug Abuse Patient Records regulations: The Federal rules restrict any use of the information to criminally investigate or prosecute any alcohol or drug abuse patient.[facility] HospitalIn the event this information is protected by the Federal Confidentiality of Alcohol and Drug Abuse Patient Records regulations: The Federal rules restrict any use of the information to criminally investigate or prosecute any alcohol or drug abuse patient.[facility] HospitalIn the event this information is protected by the Federal Confidentiality of Alcohol and Drug Abuse Patient Records regulations: The Federal rules restrict any use of the information to criminally investigate or prosecute any alcohol or drug abuse patient.[facility] HospitalIn the event this information is protected by the Federal Confidentiality of Alcohol and Drug Abuse Patient Records regulations: The Federal rules restrict any use of the information to criminally investigate or prosecute any alcohol or drug abuse patient.[facility] HospitalIn the event this information is protected by the Federal Confidentiality of Alcohol and Drug Abuse Patient Records regulations: The Federal rules restrict any use of the information to criminally investigate or prosecute any alcohol or drug abuse patient.[facility] HospitalIn the event this information is protected by the Federal Confidentiality of Alcohol and Drug Abuse Patient Records regulations: The Federal rules restrict any use of the information to criminally investigate or prosecute any alcohol or drug abuse patient.[facility] Hospital[facility] the event this information is protected by the Federal Confidentiality of Alcohol and Drug Abuse Patient Records regulations: The Federal rules restrict any use of the information to criminally investigate or prosecute any alcohol or drug abuse patient.[facility] Hospital[facility] the event this information is protected by the Federal Confidentiality of Alcohol and Drug Abuse Patient Records regulations: The Federal rules restrict any use of the information to criminally investigate or prosecute any alcohol or drug abuse patient.[facility] HospitalIn the event this information is protected by the Federal Confidentiality of Alcohol and Drug Abuse Patient Records regulations: The Federal rules restrict any use of the information to criminally investigate or prosecute any alcohol or drug abuse patient.[facility] HospitalIn the event this information is protected by the Federal Confidentiality of Alcohol and Drug Abuse Patient Records regulations: The Federal rules restrict any use of the information to criminally investigate or prosecute any alcohol or drug abuse patient.[facility] HospitalIn the event this information is protected by the Federal Confidentiality of Alcohol and Drug Abuse Patient Records regulations: The Federal rules restrict any use of the information to criminally investigate or prosecute any alcohol or drug abuse patient.[facility] Hospital[facility] the event this information is protected by the Federal Confidentiality of Alcohol and Drug Abuse Patient Records regulations: The Federal rules restrict any use of the information to criminally investigate or prosecute any alcohol or drug abuse patient.[facility] Hospital[facility] the event this information is protected by the Federal Confidentiality of Alcohol and Drug Abuse Patient Records regulations: The Federal rules restrict any use of the information to criminally investigate or prosecute any alcohol or drug abuse patient.[facility] HospitalIn the event this information is protected by the Federal Confidentiality of Alcohol and Drug Abuse Patient Records regulations: The Federal rules restrict any use of the information to criminally investigate or prosecute any alcohol or drug abuse patient.[facility] HospitalIn the event this information is protected by the Federal Confidentiality of Alcohol and Drug Abuse Patient Records regulations: The Federal rules restrict any use of the information to criminally investigate or prosecute any alcohol or drug abuse patient.[facility] HospitalIn the event this information is protected by the Federal Confidentiality of Alcohol and Drug Abuse Patient Records regulations: The Federal rules restrict any use of the information to criminally investigate or prosecute any alcohol or drug abuse patient.[facility] HospitalIn the event this information is protected by the Federal Confidentiality of Alcohol and Drug Abuse Patient Records regulations: The Federal rules restrict any use of the information to criminally investigate or prosecute any alcohol or drug abuse patient.[facility] HospitalIn the event this information is protected by the Federal Confidentiality of Alcohol and Drug Abuse Patient Records regulations: The Federal rules restrict any use of the information to criminally investigate or prosecute any alcohol or drug abuse patient.[facility] HospitalIn the event this information is protected by the Federal Confidentiality of Alcohol and Drug Abuse Patient Records regulations: The Federal rules restrict any use of the information to criminally investigate or prosecute any alcohol or drug abuse patient.[facility] HospitalIn the event this information is protected by the Federal Confidentiality of Alcohol and Drug Abuse Patient Records regulations: The Federal rules restrict any use of the information to criminally investigate or prosecute any alcohol or drug abuse patient.[facility] HospitalIn the event this information is protected by the Federal Confidentiality of Alcohol and Drug Abuse Patient Records regulations: The Federal rules restrict any use of the information to criminally investigate or prosecute any alcohol or drug abuse patient.[facility] HospitalIn the event this information is protected by the Federal Confidentiality of Alcohol and Drug Abuse Patient Records regulations: The Federal rules restrict any use of the information to criminally investigate or prosecute any alcohol or drug abuse patient.[facility] HospitalIn the event this information is protected by the Federal Confidentiality of Alcohol and Drug Abuse Patient Records regulations: The Federal rules restrict any use of the information to criminally investigate or prosecute any alcohol or drug abuse patient.[facility] HospitalIn the event this information is protected by the Federal Confidentiality of Alcohol and Drug Abuse Patient Records regulations: The Federal rules restrict any use of the information to criminally investigate or prosecute any alcohol or drug abuse patient.[facility] HospitalIn the event this information is protected by the Federal Confidentiality of Alcohol and Drug Abuse Patient Records regulations: The Federal rules restrict any use of the information to criminally investigate or prosecute any alcohol or drug abuse patient.[facility] Reason for Visit (unrecogniz ed section and content) Reason Onset Date Comments Opened In Error 09/24/2021 Reason Comments Diabetes Reason Comments Follow Up [...] Comments Transition Of Care 08/13/2023 Reason Comments [facility], verbal order Reason Comments Results Reason Comments Labs needed Reason Comments F/U 4 month Reason Comments Insurance Authorization pilar Reason Comments Medication Problem Care Teams (unrecognized sec tion and content) 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 Relationship Specialty Start Date End Date Peter Ellis MD [address] [place], [place] [id number] PCP - General 03/24/07 Maciej Lopez [facility] [address] [place] [address] Pharmacist Pharmacy 02/26/19 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 Relationship Specialty Start Date End Date Peter Ellis MD [address] [place], [place] [id number] PCP - General 03/24/07 Maciej Lopez [facility] [address] [place] [address] Pharmacist Pharmacy 02/26/19 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 Relationship Specialty Start Date End Date Peter Ellis MD [address] [place] [address] PCP - General 03/24/07 [facility] [address] [facility] [place] [address] Pharmacist Pharmacy 02/26/19 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 Relationship Specialty Start Date End Date Peter Ellis MD [address] [place] [address] PCP - General 03/24/07 [facility] [address] [facility] [place] [address] Pharmacist Pharmacy 02/26/19 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 Relationship Specialty Start Date End Date Peter Ellis MD [address] [place] [address] PCP - General 03/24/07 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 Relationship Specialty Start Date End Date Peter Ellis MD [address] [place] [address] PCP - General 03/24/07 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 Relationship Specialty Start Date End Date Peter Ellis MD [address] [facility] [place] [address] PCP - General 03/24/07 Jadon Delgado, [facility] [address] [place] [phone] Pharmacist Pharmacy 06/20/22 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 Relationship Specialty Start Date End Date Peter Ellis MD [address] [place] [address] PCP - General 03/24/07 [place] [address] [place] [address] Pharmacist Pharmacy 06/20/22 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 Peter Ellis MD Family Provider Active Dr. Peter Ellis MD Primary Care Provider Active Team Status: Inactive Member Role Status Dates Dr. 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 Peter Ellis MD Primary Care Provider Active Ed Physician Provider Attending Provider, Emergency Pr ovider Active Team Status: Inactive Member Role Status Dates Dr. Peter Ellis MD Primary Care Provider Active Dr. 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 Relationship Specialty Start Date End Date Peter Ellis MD [address] [place] [address] PCP - General 03/24/07 Jadon DelgadoStephen [place] [address] [place] [address] Pharmacist Pharmacy 06/20/22 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 Peter Ellis MD Primary Care Provider Active Dr. Santos Mckeon MD Emergency Provider Active Dr. Mitzy Strauss MD Attending Provider Active Team Status: Active Member Role Status Dates Dr. Peter Ellis MD Primary Care Provider Active Dr. Santos Mckeon MD Emergency Provider Active Dr. Mitzy Strauss MD Admit Provider, At tending Provider, Other Provider Active Team Status: Active Member Role Status Dates Dr. Peter Ellis MD Primary Care Provider Active Dr. Santos Mckeon MD Emergency Provider Active Dr. Mitzy Strauss MD Admit Provider, Other Provider A ctive Dr. Wes Alva , Attending Provider, Other Pro vider Active Team Status: Inactive Member Role Status Dates Dr. Peter Ellis MD Primary Care Provider Active Dr. Santos Mckeon MD Emergency Provider Active Dr. Mitzy Strauss MD Admit Provider, Other Provider A ctive Dr. Wes Alva , Attending Provider Active 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 Relationship Specialty Start Date End Date Peter Ellis MD [address] [place] [address] PCP - General 03/24/07 Jadon Delgado[place] [address] [place] [phone] Pharmacist Pharmacy 06/20/22 Team Status: Active Member Role Status Dates Dr. Peter Ellis MD Primary Care Provider Active Dr. Lola Marquez DO Emergency Provider Active Dr. Mitzy Pratt DO Admit Provider, Attending Pr ovider Active Team Status: Active Member Role Status Dates Dr. Peter Ellis MD Primary Care Provider Active Dr. Lola Marquez DO Emergency Provider Active Dr. Mitzy de Chris , DO Admit Provider, Other Provid er Active Dr. Carl Couch , DO Attending Provider, Other Provid er Active Team Status: Inactive Member Role Status Dates Dr. Peter Ellis MD Primary Care Provider Active Dr. Lola Marquez , DO Emergency Provider Active Dr. Mitzy Pratt , DO Admit Provider, Other Provid er Active Dr. 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 Relationship Specialty Start Date End Date Peter Ellis MD [address] [place] [address] PCP - General 03/24/07 Jadon Delgado[place] [address] [place] [address] Pharmacist Pharmacy 06/20/22 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 Peter Ellis MD Primary Care Provider Active Start: June 21, 2024 Dr. Darcy DUNAWAY MD Attending Provider Active Start: June 21, 2024 Team Status: Inactive Member Role Status Dates Dr. Peter Ellis MD Primary Care Provider Active Start: September 20, 2024 End: September 20, 2024 Dr. Darcy DUNAWAY MD Attending Provider Active Start: September 20, 2024 End: September 20, 2024 Team Status: Active Member Role/Relationship Status Dates Dr. Peter Ellis MD Primary Care Provider Active Team Status: Active Member Role/Relationship Status Dates Dr. Peter Ellis MD Primary Care Provider Active Start: December 14, 2024 Dr. Juve DUNAWAY MD Attending Provider Active Start: December 14, 2024 Team Status: Active Member Role/Relationship Status Dates Dr. Peter Ellis MD Primary Care Provider Active Start: March 03, 2025 Dr. Frieda Laurent MD Emergency Provider Active S tart: March 03, 2025 Dr. Desiree Trent MD Admit Provider Active Star t: March 03, 2025 Dr. Desiree Trent MD Attending Provider Active Start: March 03, 2025 Goals (unrecognized section and content) Goals may be documented in a n alternate sectionGoals may be documented in an alternate sectionGoals may be documented in an alternate sectionGoals may be documented in an alternate section FOR RECORDS PERTAINING TO PATIENTS WHO ARE [...] BE BASED ON THE PRIMARY CLINICAL RECORDS. [employer] provides no warranty or guarantee of the accuracy or completeness of information in this document.
--- OUTSIDE RECORDS SUMMARY | 2025-03-03 21:37 | XMS RPT_ITS | CCD ---
Author Organization [facility] Care Team Providers Care Prep Room Supervisor Name Role Phone Peter Ellis MD Primary Care Provider [facility], Keti Unavailable Peter Ellis MD Primary Care Provider Peter Ellis MD Primary Care Provider [facility], Jadon Unavailable Dr. Peter Ellis Primary [...] Other Provider Dr. Lola Marquez Emergency Provider [phone] Mitzy Pratt Admit Provider Unavailabl [...] Peter Ellis MD Primary Care Provider [phone] Dr. Juve Dejesus MD Attending Provider Unavail able Dr. Frieda Laurent MD Emergency Provider Unavailab tramaine Trent MD, Dr. Ramírez Admit Provider Dr. Desiree Trent MD Attending Provider [phone] Allergies Allergy Classification Reported Allergen(s) Allergy Type Date of Onset Reaction(s) Facility (20 sources) Contrast media; Translations: [CONTRAST DYE] Drug Intolerance 4 GI Upset [facility] Work Phone: (20 sources) FLUoxetine; Translations: [FLUOXETINE] Drug Allergy 9 Intolerance [facility] Work Phone: (20 sources) Meclizine; Translations: [MECLIZINE] Drug Allergy 4 Mental Status Change, Other: See Comments [facility] Work Phone: Comment on above: PT BECAME EXTREMELY FATIGUED & WAS UNABLE TO WALK AFTER TAKING 12.5MG OF MECLIZINE. (20 sources) venlafaxine; Translations: [VENLAFAXINE HCL] Drug Allergy 9 Rash [facility] Comment on above: CHEST BROKE OUT, GOT REAL DIZZY. (1 source) Meclizine Drug Allergy 4 [facility] (1 source) venlafaxine Drug Allergy 4 [facility] Medications Current Medications Medication Drug Class(es) [...] Active docusate sodium 50 mg / sennosides, longterm 8.6 mg oral tablet (2 sources) Start: [...] by mouth daily with breakfast. Gets through [employer] PAP. 0 07/25/2022 Active Start: 05-28-2019 End: 12-03-2023 take 1 tablet by mouth once daily Empagliflozin 10 MG tablet Discontinued 10 mg PO DAILY May 28, 2019 1:00am December 03, 2023 12:22am dm Comment on above: Take 1 tablet by heraclio th daily with breakfast. Take 1 tablet by heraclio th daily with breakfast. Gets through [employer] PAP. escitalopram 10 mg oral tablet (20 [...] 25 mcg tablet Active 75 ug PO .[facility] August 09, 2023 1:00am thyroid Start: 08-09-2023 Levothyroxine 25 mcg tablet Active 25 ug PO .[facility] August 09, 2023 1:00am Start: 02-28-2023 take [...] subcutaneously one time a week. Gets through [employer] PAP. 0 07/25/2022 Active Comment on above: Inject 3 mg subcutan eously one time a week. Gets through [employer] PAP. 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] Episodic Other aftercare (1 source) Encounter for therapeutic drug level monitoring; Translations: [Encounter for therapeutic drug monitoring] Onset: 4 Episodic Other connective tissue disease (1 source) Repeated falls; Translations: [Frequent falls] Onset: 4 Episodic Other connective tissue disease (1 source) Muscle weakness (generalized); Translations: [Muscle weakness (generalized)] Onset: 5 Episodic Other eye disorders (1 source) Epithelial basement membrane dystrophy; 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] Episodic Other [...] 08-13-2021 Episodic Other aftercare (1 source) Other residential (current) drug therapy; Translations: [Encounter [...] (Unsp spec) [#/Vol] 0.30 10*3/uL Low 0.83-4.51 [facility] Absolute neutrophil countOrd ered By: Frieda Laurent on 03-03-2025 Neutrophils (Bld) [#/Vol] 12.9 10*3/uL High 2.0-7.7 [facility] Anion gap in Serum or Plasma Ordered By: Frieda Laurent on 03-03-2025 Anion gap [Moles/Vol] 12 mmol/L 5-15 [facility] Assessment of wrist artery p atency prior to arterial punctureOrdered By: Frieda Laurent on 03-03-2025 Arterial patency Wrist artery --pre arterial puncture Positive [facility] Automated lymphocyte count a s percentage of total leukocytesOrdered By: Frieda Laurent on 03-03-2025 Lymphocytes/100 WBC Auto (Unsp spec) 2.2 % Low 19-41 [facility] BUN/creatinine ratioOrdered By: Frieda Laurent on 03-03-2025 Urea nitrogen/Creatinine [Mass ratio] 23.4 mg/mg High 10-20 [facility] Basophil percentageOrdered B y: Frieda Laurent on 03-03-2025 Basophils/100 WBC (Bld) 0.4 % 0-1 [facility] Bilirubin Test strip Ql (U)O rdered By: Frieda Laurent on 03-03-2025 Bilirubin Ql (U) Negative Negative [facility] Bilirubin, totalOrdered By: Frieda Laurent on 03-03-2025 Bilirubin [Mass/Vol] 2.53 mg/dL High 0.00-1.30 [place] Blood base excess determinat ionOrdered By: Frieda Laurent on 03-03-2025 Base excess Calc (BldV) [Moles/Vol] 1 mmol/L -2-2 [facility] Blood bicarbonate measuremen tOrdered By: Frieda Laurent on 03-03-2025 HCO3 (Bld) [Moles/Vol] 25.7 mmol/L 22-26 [facility] Carbon dioxide, total [Moles /volume] in Central venous bloodOrdered By: Frieda Laurent on 03-03-2025 CO2 [Moles/Vol] 22.6 mmol/L 21.0-32.0 [facility] Chloride assayOrdered By: Carlo Laurent on 03-03-2025 Chloride [Moles/Vol] 101 mmol/L 98-108 [place] Eosinophil percentageOrdered By: Frieda Laurent on 03-03-2025 Eosinophils/100 WBC (Bld) 0.2 % 0-5 [facility] Erythrocyte distribution wid th ratioOrdered By: Frieda Laurent on 03-03-2025 Erythrocyte distribution width (RBC) [Ratio] 14.1 % 11.6-14.6 [facility] Erythrocyte distribution wid th standard deviationOrdered By: Frieda Laurent on 03-03-2025 Erythrocyte distribution width (RBC) [Ratio] 49.9 fl High 35.1-43.9 [facility] Glomerular filtration rate ( GFR) estimation/1.73 sq m using serum, plasma, or whole bOrdered By: Frieda Laurent on 03-03-2025 GFR/1.73 sq M.predicted among non-blacks MDRD (S/P/Bld) [Vol rate/Area] 60 mL/min/{1.73_m2} >60 [facility] Comment on above: mL/min/1.73m2 CKD-EP I Creatinine Equation (2020) Hematocrit Auto (Bld) [Volum e fraction]Ordered By: Frieda Laurent on 03-03-2025 Hematocrit (Bld) [Volume fraction] 32.8 % Low 37-47 [facility] Hemoglobin measurementOrdere d By: Frieda Laurent on 03-03-2025 Hemoglobin (Bld) [Mass/Vol] 10.4 g/dL Low 12.0-15.0 [facility] Immature granulocytes/100 WB C Auto (Bld)Ordered By: Frieda Laurent on 03-03-2025 Immature granulocytes/100 WBC (Bld) 0.500 % 0.0-0.9 [facility] Comment on above: IG% - Immature Granu locytes (promyelocytes, myelocytes and metamyelocytes) > 1% indicates that a LEFT SHIFT is Present. Influenza virus A and B and SARS-CoV-2 (COVID-19) and Respiratory syncytial virus RNAOrdered By: Frieda Laurent on 03-03-2025 SARS-CoV-2 (COVID-19) RNA LUBA+probe Ql (Unsp spec) [facility] Ketones Test strip Ql (U)Ord ered By: Frieda Laurent on 03-03-2025 Ketones Ql (U) Negative Negative [facility] Laboratory - Chemistry and C hemistry - challengeOrdered By: Frieda Laurent on 03-03-2025 AST [Catalytic activity/Vol] 77 U/L High <32 [facility] Lactic acid measurementOrder ed By: Frieda Laurent on 03-03-2025 Lactate [Moles/Vol] 3.4 mmol/L High 0.0-2.0 [facility] Comment on above: Critical Result(s) C alled at: by: JACOB HOLLAND Results read back by same. MCV (mean corpuscular volume ) determinationOrdered By: Frieda Laurent on 03-03-2025 MCV (RBC) [Entitic vol] 96.8 fL 81-99 [facility] Mean corpuscular hemoglobin (MCH) determinationOrdered By: Frieda Laurent on 03-03-2025 MCH (RBC) [Entitic mass] 30.7 pg 27.0-32.0 [facility] Mean corpuscular hemoglobin concentration (MCHC) determinationOrdered By: Frieda Laurent on 03-03-2025 MCHC (RBC) [Mass/Vol] 31.7 g/dL Low 32-36 [facility] Mean platelet volume determi nationOrdered By: Frieda Laurent on 03-03-2025 Platelet mean volume (Bld) [Entitic vol] 10.9 fL 6.2-12.0 [facility] Measurement, pHOrdered By: Jazmyn Laurent on 03-03-2025 pH (Unsp spec) 7.42 [pH] 7.35-7.45 [facility] Microscopic analysis of urin e for red blood cells (RBC)Ordered By: Frieda Laurent on 03-03-2025 Microscopic analysis of urine for red blood cells (RBC) 0 SEEN /hpf 0-5 [facility] Monocyte percentageOrdered B y: Frieda Laurent on 03-03-2025 Monocytes/100 WBC (Bld) 1.3 % 0-10 [facility] Mucus LM Ql (Urine sed)Order ed By: Frieda Laurent on 03-03-2025 Mucus Ql (Urine sed) 0 SEEN /hpf [facility] Neutrophil percentageOrdered By: Frieda Laurent on 03-03-2025 Neutrophils/100 WBC (Bld) 95.4 % High 47-70 [facility] Nitrite Test strip Ql (U)Ord ered By: Frieda Laurent on 03-03-2025 Nitrite Ql (U) Positive High Negative [facility] No Panel InformationOrdered By: Frieda Laurent on 03-03-2025 Bedside Blood Gas PEEP 5 [facility] Blood Gas Respiration Rate 14 [facility] Blood Gas Sample Site L Radial [facility] Blood Gas Specimen Type ART [facility] Blood Gas Tidal Volume 400.0 mL [facility] Blood Gas Vent Mode AC [facility] Oxygen Delivery Device Adult Vent [facility] Nucleated red blood cell per centageOrdered By: Frieda Laurent on 03-03-2025 Nucleated RBC/100 WBC (Bld) [Ratio] 0 % 0-5 [facility] Platelet countOrdered By: Carlo Laurent on 03-03-2025 Platelets (Bld) [#/Vol] 191 10*3/uL 150-450 [facility] Potassium measurement (mass/ volume)Ordered By: Frieda Laurent on 03-03-2025 Potassium (Unsp spec) [Mass/Vol] 3.9 mmol/L 3.3-5.1 [facility] Protein Test strip Ql (U)Ord ered By: Frieda Laurent on 03-03-2025 Protein Ql (U) 100 mg/dl High Negative [facility] RBC Auto (Bld) [#/Vol]Ordere d By: Frieda Laurent on 03-03-2025 RBC (Bld) [#/Vol] 3.39 10*6/uL Low 4.2-5.4 [facility] Serum creatinine measurement (mass/volume)Ordered By: Frieda Laurent on 03-03-2025 Creatinine [Mass/Vol] 0.96 mg/dL 0.70-1.20 [facility] Serum globulin measurementOr dered By: Frieda Laurent on 03-03-2025 Globulin (S) [Mass/Vol] 4.1 g/dL 2.2-4.2 [facility] Serum glucose measurement (m ass/volume)Ordered By: Frieda Laurent on 03-03-2025 Glucose [Mass/Vol] 214 mg/dL High 70-99 [facility] Serum or plasma alanine potts otransferase (ALT) measurementOrdered By: Frieda Laurent on 03-03-2025 ALT [Catalytic activity/Vol] 39 U/L High <35 [facility] Serum or plasma albumin sonu urement (mass/volume)Ordered By: Frieda Laurent on 03-03-2025 Albumin [Mass/Vol] 3.7 g/dL 3.4-4.8 [facility] Serum or plasma albumin/glob ulin mass ratioOrdered By: Frieda Laurent on 03-03-2025 Albumin/Globulin [Mass ratio] 0.9 {ratio} 0.9-2.4 [facility] Serum or plasma alkaline dwain sphatase measurementOrdered By: Frieda Laurent on 03-03-2025 ALP [Catalytic activity/Vol] 378 U/L High 35-104 [facility] Serum or plasma calcium sonu urement (mass/volume)Ordered By: Frieda Laurent on 03-03-2025 Calcium [Mass/Vol] 9.0 mg/dL 7.6-11.0 [facility] Serum or plasma urea nitroge n measurement (mass/volume)Ordered By: Frieda Laurent on 03-03-2025 Urea nitrogen [Mass/Vol] 22 mg/dL High 4-19 [facility] Sodium levelOrdered By: Carl Laurent on 03-03-2025 Sodium [Moles/Vol] 135 mmol/L 133-145 [facility] Squamous epithelial cells de tection in urine sediment by light microscopyOrdered By: Frieda Laurent on 03-03-2025 Epithelial cells.squamous LM Ql (Urine sed) 0 SEEN /hpf 5-10 [facility] Total carbon dioxide measure mentOrdered By: Frieda Laurent on 03-03-2025 CO2 [Moles/Vol] 27 mmol/L [facility] Total proteinOrdered By: Namrata Laurent on 03-03-2025 Protein [Mass/Vol] 7.9 g/dL 5.9-8.4 [facility] Troponin T.cardiac [Mass/vol ume] in Serum or Plasma by High sensitivity methodOrdered By: Frieda Laurent on 03-03-2025 Troponin T.cardiac High sensitivity method [Mass/Vol] 49 ng/L High <14 [facility] Urine clarityOrdered By: Namrata Laurent on 03-03-2025 Clarity (U) Sl. Cloudy Clear [facility] Urine color determinationOrd ered By: Frieda Laurent on 03-03-2025 Color (U) Yellow Yellow [facility] Comment on above: Microscopic field is filled. Other elements may be obscured.Previous reported result: Yellow Edited by: JACQUELYN on 03/03/25:1522 AMENDED REPORT 03/03/25 1522 COLOR previously reported as: Yellow Urine glucose detectionOrder ed By: Frieda Laurent on 03-03-2025 Glucose Ql (U) Normal mg/dl Normal [facility] Urine leukocyte esterase det ection by dipstickOrdered By: Frieda Laurent on 03-03-2025 Leukocyte esterase Test strip Ql (U) 500 /ul High Negative [facility] Urine pHOrdered By: Frieda duran on 03-03-2025 pH (U) 5.0 [pH] 5.0 - 8.0 [facility] Urine sediment bacteria coun t by microscopy (number/high power field)Ordered By: Frieda Laurent on 03-03-2025 Bacteria LM.HPF (Urine sed) [#/Area] 0 /[HPF] None Seen [facility] Urine specific gravity measu rementOrdered By: Frieda Laurent on 03-03-2025 Specific gravity (U) [Rel density] 1.015 1.002-1.030 [facility] Urine urobilinogen measureme ntOrdered By: Frieda Laurent on 03-03-2025 Urobilinogen Ql (U) 1 mg/dl High Normal [facility] White blood cell (WBC) count Ordered By: Fridea Laurent on 03-03-2025 WBC (Bld) [#/Vol] 13.5 10*3/uL High 4.4-11.0 [facility] White blood cell countOrdere d By: Frieda Laurent on 03-03-2025 White blood cell count >100 SEEN /hpf 0-5 [facility] Anion gap in Serum or Plasma Ordered By: Juve Dejesus on 12-14-2024 Anion gap [Moles/Vol] 9 mmol/L 5-15 [facility] BUN/creatinine ratioOrdered By: Juve Dejesus on 12-14-2024 Urea nitrogen/Creatinine [Mass ratio] 34.4 mg/mg High 10- [facility] Basic Metabolic Profile (BMP )on 12-14-2024 BUN/CRE 34.4 RATIO High 10-20 [facility] Comment on above: Performed By: #### L 501.9985, L506.1001, L500.2500, L501.9310, L500.4100, L100.0500, L501.9520, L503.6150 #### [facility] [address] [place], [address] GAP 9 Normal 5-15 [facility] Comment on above: Performed By: #### L [id number], L506.1001, L500.2500, L501.9310, L500.4100, L100.0500, L501.9520, L503.6150 #### [facility] [address] [place], [address] Potassium [Moles/Vol] 4.0 mmol/L Normal 3.3-5.1 [facility] Comment on above: Performed By: #### L 501.9985, L506.1001, L500.2500, L501.9310, L500.4100, L100.0500, L501.9520, L503.6150 #### [facility] [address] [place], [address] Basic Metabolic Profile (BMP )Ordered By: Juve Dejesus on 12-14-2024 Calcium [Mass/Vol] 9.3 mg/dL 7.6-11.0 [facility] Comment on above: Performed By: #### L 501.9985, L506.1001, L500.2500, L501.9310, L500.4100, L100.0500, L501.9520, L503.6150 #### [facility] [address] [place], [address] Chloride [Moles/Vol] 106 mmol/L 98-108 [place] Comment on above: Performed By: #### L 501.9985, L506.1001, L500.2500, L501.9310, L500.4100, L100.0500, L501.9520, L503.6150 #### [facility] [address] [place], [address] CO2 [Moles/Vol] 25.7 mmol/L 21.0-32.0 [facility] Comment on above: Performed By: #### L 501.9985, L506.1001, L500.2500, L501.9310, L500.4100, L100.0500, L501.9520, L503.6150 #### [facility] [address] [place], [address] Creatinine [Mass/Vol] 0.75 mg/dL 0.70-1.20 [facility] Comment on above: Performed By: #### L 501.9985, L506.1001, L500.2500, L501.9310, L500.4100, L100.0500, L501.9520, L503.6150 #### [facility] [address] [place], [address] GFR/1.73 sq M.predicted among non-blacks MDRD (S/P/Bld) [Vol rate/Area] 81 mL/min/{1.73_m2} >60 [facility] Comment on above: Result Comment: mL/m in/1.73m2 CKD-EPI Creatinine Equation (2020) Performed By: #### L 501.9985, L506.1001, L500.2500, L501.9310, L500.4100, L100.0500, L501.9520, L503.6150 #### [facility] [address] [place], [address] mL/min/1.73m2 CKD-EP I Creatinine Equation (2020) Glucose [Mass/Vol] 83 mg/dL 70-99 [facility] Comment on above: Performed By: #### L 501.9985, L506.1001, L500.2500, L501.9310, L500.4100, L100.0500, L501.9520, L503.6150 #### [facility] [address] [place], [address] Sodium [Moles/Vol] 141 mmol/L 133-145 [facility] Comment on above: Performed By: #### L 501.9985, L506.1001, L500.2500, L501.9310, L500.4100, L100.0500, L501.9520, L503.6150 #### [facility] [address] [place], [address] Urea nitrogen [Mass/Vol] 26 mg/dL High 4-19 [facility] Comment on above: Performed By: #### L 501.9985, L506.1001, L500.2500, L501.9310, L500.4100, L100.0500, L501.9520, L503.6150 #### [facility] [address] [place], [address] CBC-Complete Blood Cnt No Di ffOrdered By: Juve Dejesus on 12-14-2024 Erythrocyte distribution width (RBC) [Ratio] 13.2 % 11.6-14.6 [facility] Comment on above: Performed By: #### L 501.9985, L506.1001, L500.2500, L501.9310, L500.4100, L100.0500, L501.9520, L503.6150 #### [facility] [address] [place], [address] Hematocrit (Bld) [Volume fraction] 32.9 % Low 37-47 [facility] Comment on above: Performed By: #### L 501.9985, L506.1001, L500.2500, L501.9310, L500.4100, L100.0500, L501.9520, L503.6150 #### [facility] [address] [place], [address] Hemoglobin (Bld) [Mass/Vol] 10.4 g/dL Low 12.0-15.0 [facility] Comment on above: Performed By: #### L 501.9985, L506.1001, L500.2500, L501.9310, L500.4100, L100.0500, L501.9520, L503.6150 #### [facility] [address] [place], [address] MCH (RBC) [Entitic mass] 31.0 pg 27.0-32.0 [facility] Comment on above: Performed By: #### L 501.9985, L506.1001, L500.2500, L501.9310, L500.4100, L100.0500, L501.9520, L503.6150 #### [facility] [address] [place], [address] MCHC (RBC) [Mass/Vol] 31.6 g/dL Low 32-36 [facility] Comment on above: Performed By: #### L 501.9985, L506.1001, L500.2500, L501.9310, L500.4100, L100.0500, L501.9520, L503.6150 #### [facility] [address] [place], [address] MCV (RBC) [Entitic vol] 98.2 fL 81-99 [facility] Comment on above: Performed By: #### L 501.9985, L506.1001, L500.2500, L501.9310, L500.4100, L100.0500, L501.9520, L503.6150 #### [facility] [address] [place], [address] Platelet mean volume (Bld) [Entitic vol] 11.7 fL 6.2-12.0 [facility] Comment on above: Performed By: #### L 501.9985, L506.1001, L500.2500, L501.9310, L500.4100, L100.0500, L501.9520, L503.6150 #### [facility] [address] [place], [address] Platelets (Bld) [#/Vol] 105 10*3/uL Low 150-450 [facility] Comment on above: Performed By: #### L 501.9985, L506.1001, L500.2500, L501.9310, L500.4100, L100.0500, L501.9520, L503.6150 #### [facility] [address] [place], [place], [id number] (023) RBC (Bld) [#/Vol] 3.35 10*6/uL Low 4.2-5.4 [facility] Comment on above: Performed By: #### L 501.9985, L506.1001, L500.2500, L501.9310, L500.4100, L100.0500, L501.9520, L503.6150 #### [facility] [address] [place], [place], [id number] (516) WBC (Bld) [#/Vol] 3.6 10*3/uL Low 4.4-11.0 [facility] Comment on above: Performed By: #### L 501.9985, L506.1001, L500.2500, L501.9310, L500.4100, L100.0500, L501.9520, L503.6150 #### [facility] [address] [place], [address] CBC-Complete Blood Cnt No Di ffon 12-14-2024 RDW SD 47.3 fl High 35.1-43.9 [facility] Comment on above: Performed By: #### L 501.9985, L506.1001, L500.2500, L501.9310, L500.4100, L100.0500, L501.9520, L503.6150 #### [facility] [address] [place], [address] Calculated very low density lipoprotein (VLDL) cholesterol measurementOrdered By: Juve Dejesus on 12-14-2024 Calculated very low density lipoprotein (VLDL) cholesterol measurement 14 mg/dL 5-40 [facility] Erythrocyte distribution wid th standard deviationOrdered By: Juve Dejesus on 12-14-2024 Erythrocyte distribution width (RBC) [Ratio] 47.3 fl High 35.1-43.9 [facility] Hemoglobin S1dLfguqpo By: Baljit Dejesus on 12-14-2024 HbA1c (Bld) [Mass fraction] 8.2 % High <5.7 [facility] Comment on above: Result Comment: Norm al < 5.7 % Prediabetic 5.7 - 6.4 % Diabetic >or= 6.5 % Please note range changes. Performed By: #### L 501.9985, L506.1001, L500.2500, L501.9310, L500.4100, L100.0500, L501.9520, L503.6150 #### [facility] [address] [place], [address] Normal < 5.7 % Predi abetic 5.7 - 6.4 % Diabetic >or= 6.5 % Please note range changes. Ironon 12-14-2024 Iron [Mass/Vol] 54 ug/dL Normal 50-170 [facility] Comment on above: Performed By: #### L 501.9985, L506.1001, L500.2500, L501.9310, L500.4100, L100.0500, L501.9520, L503.6150 #### [facility] [address] [place], [address] Iron measurement (mass/mass) Ordered By: Juve Dejesus on 12-14-2024 Iron (Unsp spec) [Mass/Mass] 54 ug/dL 50-170 [facility] Lipid Profileon 12-14-2024 CHOL:HDL 2.97 Normal [facility] Comment on above: Performed By: #### L 501.9985, L506.1001, L500.2500, L501.9310, L500.4100, L100.0500, L501.9520, L503.6150 #### [facility] [address] [place], [place], [id number] (037) Cholesterol in VLDL [Mass/Vol] 14 mg/dL Normal 5-40 [facility] Comment on above: Performed By: #### L 501.9985, L506.1001, L500.2500, L501.9310, L500.4100, L100.0500, L501.9520, L503.6150 #### [facility] [address] [place], [place], [id number] (351) Lipid ProfileOrdered By: Aleida Dejesus on 12-14-2024 Cholesterol [Mass/Vol] 116 mg/dL <201 [facility] Comment on above: Result Comment: Chol esterol level, Desirable <200 mg/dL Borderline high cholesterol 200-239 mg/dL High cholesterol >=240 mg/dL Recommendations of the NCEP Adult Treatment Panel for the following risk-cutoff thresholds for the [place] population. Performed By: #### L 501.9985, L506.1001, L500.2500, L501.9310, L500.4100, L100.0500, L501.9520, L503.6150 #### [facility] [address] [place], [address] Cholesterol level, D esirable <200 mg/dLBorderline high cholesterol 200-239 mg/dLHigh cholesterol >=240 mg/dLRecommendations of the NCEP Adult Treatment Panel for the following risk-cutoff thresholds for the [place] population. Cholesterol in HDL [Mass/Vol] 39 mg/dL Low >40 [facility] Comment on above: Result Comment: [place] onal Cholesterol Education Program (NCEP) guidelines: <40 mg/dL: Low HDL-cholesterol (major risk factor for CHD) >= 60 mg/dL: High HDL-cholesterol (negative risk factor for CHD) HDL-cholesterol is affected by a number of factors, e.g. smoking, exercise, hormones, sex and age. Performed By: #### L 501.9985, L506.1001, L500.2500, L501.9310, L500.4100, L100.0500, L501.9520, L503.6150 #### [facility] [address] [place], [address] National Cholesterol Education Program (NCEP) guidelines:<40 mg/dL: Low HDL-cholesterol (major risk factor for CHD)>= 60 mg/dL: High HDL-cholesterol (negative risk factor for CHD)HDL-cholesterol is affected by a number of factors, e.g. smoking, exercise, hormones, sex and age. Cholesterol in LDL [Mass/Vol] 63 mg/dL [facility] [facility] Comment on above: Result Comment: Bord pvusai=192-071 mg/dL Higher Qcho=752 mg/dL or greater Performed By: #### L 501.9985, L506.1001, L500.2500, L501.9310, L500.4100, L100.0500, L501.9520, L503.6150 #### [facility] [address] [place], [address] Hctktudvwc=955-482 m g/dL & Higher Gzzt=344 mg/dL or greater Triglyceride [Mass/Vol] 72 mg/dL <199 [facility] Comment on above: Result Comment: The drugs N-Acetylcysteine and Metamizole may falsely depress this assay. Normal range: <150 mg/dL Borderline High: 150-199 mg/dL High: 200-499 mg/dL Very High: >500 mg/dL Performed By: #### L 501.9985, L506.1001, L500.2500, L501.9310, L500.4100, L100.0500, L501.9520, L503.6150 #### [facility] [address] [place], [address] The drugs N-Acetylcy steine and Metamizole may falsely depress this assay. Normal range: <150 mg/dLBorderline High: 150-199 mg/dLHigh: 200-499 mg/dLVery High: >500 mg/dL Potassium measurement (mass/ volume)Ordered By: Juve Dejesus on 12-14-2024 Potassium (Unsp spec) [Mass/Vol] 4.0 mmol/L 3.3-5.1 [facility] Screening total cholesterol/ high density lipoprotein (HDL) cholesterol ratioOrdered By: Juve Dejesus on 12-14-2024 Cholesterol.total/Cholest cristian in HDL [Mass ratio] 2.97 {ratio} [facility] T4 Total, ThyroxinOrdered By : Juve Dejesus on 12-14-2024 T4 [Mass/Vol] 8.3 ug/dL 4.8-13.9 [facility] Comment on above: Performed By: #### L 501.9985, L506.1001, L500.2500, L501.9310, L500.4100, L100.0500, L501.9520, L503.6150 #### [facility] [address] [place], [place], [id number] TSH DL <= 0.005 mIU/L QnOrde red By: Juve Dejesus on 12-14-2024 TSH Qn 3.320 uIU/mL 0.300-4.200 [facility] Thyroid Stim Hormone (TSH)on 12-14-2024 TSH 3.320 uIU/mL Normal 0.300-4.200 [facility] Comment on above: Performed By: #### L 501.9985, L506.1001, L500.2500, L501.9310, L500.4100, L100.0500, L501.9520, L503.6150 #### [facility] [address] [place], [address] Vitamin D,25 Hydroxyon 12-14 Vitamin D 25-OH 13.7 ng/mL Low 30-100 [facility] Comment on above: Result Comment: Sobia min D Status Deficiency: <20 ng/mL (50nmol/L) Insufficiency: 20-30 ng/mL (50-75 nmol/L) Sufficiency: 30-100 ng/mL (75-250 nmol/L) Toxicity: >100 ng/mL (>250 nmol/L) Performed By: #### L 501.9985, L506.1001, L500.2500, L501.9310, L500.4100, L100.0500, L501.9520, L503.6150 #### [facility] [address] [place], [address] Vitamin D,25 Hydroxyon 10-26 Vitamin D 25-OH 16.5 ng/mL Low 30-100 [facility] Comment on above: Result Comment: Sobia min D Status Deficiency: <20 ng/mL (50nmol/L) Insufficiency: 20-30 ng/mL (50-75 nmol/L) Sufficiency: 30-100 ng/mL (75-250 nmol/L) Toxicity: >100 ng/mL (>250 nmol/L) Performed By: #### L 501.9985, L506.1001, L500.2500, L501.9310, L500.4100, L100.0500, L501.9520, L503.6150 #### [facility] [address] [place], [address] Hemoglobin A1con 09-21-2024 HbA1c (Bld) [Mass fraction] 7.1 % Normal <=5.6 [facility] Comment on above: Order Comment: 504-1 Performed By: #### L 501.9985, L506.1001, L500.2500, L501.9310, L500.4100, L100.0500, L501.9520, L503.6150 #### [facility] [address] [place], [address] Anion gap in Serum or Plasma Ordered By: Darcy Elias on 09-20-2024 Anion gap [Moles/Vol] 13 mmol/L 5-15 [facility] BUN/creatinine ratioOrdered By: Darcy Elias on 03-24-2025 Urea nitrogen/Creatinine [Mass ratio] 23.4 mg/mg High 10-20 [facility] Basic Metabolic Profile (BMP )on 09-20-2024 BUN/CRE 23.4 RATIO High 10-20 [facility] Comment on above: Order Comment: 504-1 Performed By: #### L 501.9985, L506.1001, L500.2500, L501.9310, L500.4100, L100.0500, L501.9520, L503.6150 #### [facility] [address] [place], [address] Calcium [Mass/Vol] 9.6 mg/dL Normal 7.6-11.0 [facility] Comment on above: Order Comment: 504-1 Performed By: #### L 501.9985, L506.1001, L500.2500, L501.9310, L500.4100, L100.0500, L501.9520, L503.6150 #### [facility] [address] [place], [address] Chloride [Moles/Vol] 103 mmol/L Normal 98-108 [place] Comment on above: Order Comment: 504-1 Performed By: #### L 501.9985, L506.1001, L500.2500, L501.9310, L500.4100, L100.0500, L501.9520, L503.6150 #### [facility] [address] [place], [address] CO2 [Moles/Vol] 21.9 mmol/L Normal 21.0-32.0 [facility] Comment on above: Order Comment: 504-1 Performed By: #### L 501.9985, L506.1001, L500.2500, L501.9310, L500.4100, L100.0500, L501.9520, L503.6150 #### [facility] [address] [place], [address] Creatinine [Mass/Vol] 0.78 mg/dL Normal 0.70-1.20 [facility] Comment on above: Order Comment: 504-1 Performed By: #### L 501.9985, L506.1001, L500.2500, L501.9310, L500.4100, L100.0500, L501.9520, L503.6150 #### [facility] [address] [place], [address] GAP 13 Normal 5-15 [facility] Comment on above: Order Comment: 504-1 Performed By: #### L 501.9985, L506.1001, L500.2500, L501.9310, L500.4100, L100.0500, L501.9520, L503.6150 #### [facility] [address] [place], [place], [id number] (840) GFR/1.73 sq M.predicted among non-blacks MDRD (S/P/Bld) [Vol rate/Area] 76 mL/min/{1.73_m2} Normal >60 [facility] Comment on above: Order Comment: 504-1 Result Comment: mL/m in/1.73m2 CKD-EPI Creatinine Equation (2020) Performed By: #### L 501.9985, L506.1001, L500.2500, L501.9310, L500.4100, L100.0500, L501.9520, L503.6150 #### [facility] [address] [place], [place], [address] Glucose [Mass/Vol] 229 mg/dL High 70-99 [facility] Comment on above: Order Comment: 504-1 Performed By: #### L 501.9985, L506.1001, L500.2500, L501.9310, L500.4100, L100.0500, L501.9520, L503.6150 #### [facility] [address] [place], [place], [id number] Potassium [Moles/Vol] 4.2 mmol/L Normal 3.3-5.1 [facility] Comment on above: Order Comment: 504-1 Performed By: #### L 501.9985, L506.1001, L500.2500, L501.9310, L500.4100, L100.0500, L501.9520, L503.6150 #### [facility] [address] [place], [place], [id number] Sodium [Moles/Vol] 138 mmol/L Normal 133-145 [facility] Comment on above: Order Comment: 504-1 Performed By: #### L 501.9985, L506.1001, L500.2500, L501.9310, L500.4100, L100.0500, L501.9520, L503.6150 #### [facility] [address] [place], [place], [id number] Urea nitrogen [Mass/Vol] 18 mg/dL Normal 4-19 [facility] Comment on above: Order Comment: 504-1 Performed By: #### L 501.9985, L506.1001, L500.2500, L501.9310, L500.4100, L100.0500, L501.9520, L503.6150 #### [facility] [address] [place], [place], [id number] CBC-Complete Blood Cnt No Di ffon 09-20-2024 Erythrocyte distribution width (RBC) [Ratio] 12.9 % Normal 11.6-14.6 [facility] Comment on above: Order Comment: 504-1 Performed By: #### L 501.9985, L506.1001, L500.2500, L501.9310, L500.4100, L100.0500, L501.9520, L503.6150 #### [facility] [address] [place], [place], [id number] Hematocrit (Bld) [Volume fraction] 33.2 % Low 37-47 [facility] Comment on above: Order Comment: 504-1 Performed By: #### L 501.9985, L506.1001, L500.2500, L501.9310, L500.4100, L100.0500, L501.9520, L503.6150 #### [facility] [address] [place], [address] Hemoglobin (Bld) [Mass/Vol] 10.6 g/dL Low 12.0-15.0 [facility] Comment on above: Order Comment: 504-1 Performed By: #### L 501.9985, L506.1001, L500.2500, L501.9310, L500.4100, L100.0500, L501.9520, L503.6150 #### [facility] [address], [address] MCH (RBC) [Entitic mass] 31.2 pg Normal 27.0-32.0 [facility] Comment on above: Order Comment: 504-1 Performed By: #### L 501.9985, L506.1001, L500.2500, L501.9310, L500.4100, L100.0500, L501.9520, L503.6150 #### [facility] [address], [address] MCHC (RBC) [Mass/Vol] 31.9 g/dL Low 32-36 [facility] Comment on above: Order Comment: 504-1 Performed By: #### L 501.9985, L506.1001, L500.2500, L501.9310, L500.4100, L100.0500, L501.9520, L503.6150 #### [facility] [address] [place], [address] MCV (RBC) [Entitic vol] 97.6 fL Normal 81-99 [facility] Comment on above: Order Comment: 504-1 Performed By: #### L 501.9985, L506.1001, L500.2500, L501.9310, L500.4100, L100.0500, L501.9520, L503.6150 #### [facility] [address] [place], [address] Platelet mean volume (Bld) [Entitic vol] 11.3 fL Normal 6.2-12.0 [facility] Comment on above: Order Comment: 504-1 Performed By: #### L 501.9985, L506.1001, L500.2500, L501.9310, L500.4100, L100.0500, L501.9520, L503.6150 #### [facility] [address] [place], [address] Platelets (Bld) [#/Vol] 126 10*3/uL Low 150-450 [facility] Comment on above: Order Comment: 504-1 Performed By: #### L 501.9985, L506.1001, L500.2500, L501.9310, L500.4100, L100.0500, L501.9520, L503.6150 #### [facility] [address] [place], [address] RBC (Bld) [#/Vol] 3.40 10*6/uL Low 4.2-5.4 [facility] Comment on above: Order Comment: 504-1 Performed By: #### L 501.9985, L506.1001, L500.2500, L501.9310, L500.4100, L100.0500, L501.9520, L503.6150 #### [facility] [address] [place], [address] RDW SD 45.9 fl High 35.1-43.9 [facility] Comment on above: Order Comment: 504-1 Performed By: #### L 501.9985, L506.1001, L500.2500, L501.9310, L500.4100, L100.0500, L501.9520, L503.6150 #### [facility] [address] [place], [address] WBC (Bld) [#/Vol] 4.4 10*3/uL Normal 4.4-11.0 [facility] Comment on above: Order Comment: 504-1 Performed By: #### L 501.9985, L506.1001, L500.2500, L501.9310, L500.4100, L100.0500, L501.9520, L503.6150 #### [facility] [address] [place], [place], [id number] Calculated very low density lipoprotein (VLDL) cholesterol measurementOrdered By: Darcy Elias on 09-20-2024 VLDL Cholesterol 22 mg/dL 5-40 [facility] Carbon dioxide, total [Moles /volume] in Central venous bloodOrdered By: Darcy Elias on 09-20-2024 CO2 [Moles/Vol] 21.9 mmol/L 21.0-32.0 [facility] Chloride assayOrdered By: Barney Elias on 09-20-2024 Chloride [Moles/Vol] 103 mmol/L 98-108 [place] Erythrocyte distribution wid th (RBC) [Ratio]Ordered By: Darcy Elias on 09-20-2024 Erythrocyte distribution width (RBC) [Entitic vol] 45.9 fL High 35.1-43.9 [facility] Erythrocyte distribution wid th ratioOrdered By: Darcy Elias on 09-20-2024 Erythrocyte distribution width (RBC) [Ratio] 12.9 % 11.6-14.6 [facility] GFR/1.73 sq M.predicted nadir g non-blacks MDRD (S/P/Bld) [Vol rate/Area]Ordered By: Darcy Elias on 09-20-2024 Estimated GFR (MDRD) Non-Af Amer 76 >60 [facility] Comment on above: mL/min/1.73m2 CKD-EP I Creatinine Equation (2020) Hematocrit Auto (Bld) [Volum e fraction]Ordered By: Darcy Elias on 09-20-2024 Hematocrit (Bld) [Volume fraction] 33.2 % Low 37-47 [facility] Hemoglobin A1c percentageOrd ered By: Darcy Elias on 09-20-2024 HbA1c (Bld) [Mass fraction] 7.1 % >5.7 [facility] Hemoglobin measurementOrdere d By: Darcy Elias on 09-20-2024 Hemoglobin (Bld) [Mass/Vol] 10.6 g/dL Low 12.0-15.0 [facility] LDL calc ser/plasOrdered By: Darcy Elias on 09-20-2024 LDL Cholesterol, Calculated 56 mg/dL [facility] Comment on above: Kcfsagsqfs=555-499 m g/dL & Higher Joes=436 mg/dL or greater Lipid Profileon 09-20-2024 CHOL:HDL 2.99 Normal [facility] Comment on above: Order Comment: 504-1 Performed By: #### L 501.9985, L506.1001, L500.2500, L501.9310, L500.4100, L100.0500, L501.9520, L503.6150 #### [facility] [address] [place], [place], [id number] (346) Cholesterol [Mass/Vol] 118 mg/dL Normal <=200 [facility] Comment on above: Order Comment: 504-1 Result Comment: Chol esterol level, Desirable <200 mg/dL Borderline high cholesterol 200-239 mg/dL High cholesterol >=240 mg/dL Recommendations of the NCEP Adult Treatment Panel for the following risk-cutoff thresholds for the [place] population. Performed By: #### L 501.9985, L506.1001, L500.2500, L501.9310, L500.4100, L100.0500, L501.9520, L503.6150 #### [facility] [address] [place], [address] Cholesterol in HDL [Mass/Vol] 39 mg/dL Low [facility] Comment on above: Order Comment: 504-1 Result Comment: Zhane onal Cholesterol Education Program (NCEP) guidelines: <40 mg/dL: Low HDL-cholesterol (major risk factor for CHD) >= 60 mg/dL: High HDL-cholesterol (negative risk factor for CHD) HDL-cholesterol is affected by a number of factors, e.g. smoking, exercise, hormones, sex and age. Performed By: #### L 501.9985, L506.1001, L500.2500, L501.9310, L500.4100, L100.0500, L501.9520, L503.6150 #### [facility] [address] [place], [address] Cholesterol in LDL [Mass/Vol] 56 mg/dL Normal [facility] Comment on above: Order Comment: 504 Result Comment: Bord rxiowg=142-619 mg/dL Higher Cljg=872 mg/dL or greater Performed By: #### L 501.9985, L506.1001, L500.2500, L501.9310, L500.4100, L100.0500, L501.9520, L503.6150 #### [facility] [address] [place], [address] Cholesterol in VLDL [Mass/Vol] 22 mg/dL Normal 5-40 [facility] Comment on above: Order Comment: 5041 Performed By: #### L 501.9985, L506.1001, L500.2500, L501.9310, L500.4100, L100.0500, L501.9520, L503.6150 #### [facility] [address] [place], [address] Triglyceride [Mass/Vol] 111 mg/dL Normal [facility] Comment on above: Order Comment: 5041 Result Comment: The drugs N-Acetylcysteine and Metamizole may falsely depress this assay. Normal range: <150 mg/dL Borderline High: 150-199 mg/dL High: 200-499 mg/dL Very High: >500 mg/dL Performed By: #### L 501.9985, L506.1001, L500.2500, L501.9310, L500.4100, L100.0500, L501.9520, L503.6150 #### [facility] [address] [place], [place], [id number] MCV (mean corpuscular volume ) determinationOrdered By: Darcy Elias on 09-20-2024 MCV (RBC) [Entitic vol] 97.6 fL 81-99 [facility] Mean corpuscular hemoglobin (MCH) determinationOrdered By: Darcy Elias on 09-20-2024 MCH (RBC) [Entitic mass] 31.2 pg 27.0-32.0 [facility] Mean corpuscular hemoglobin concentration (MCHC) determinationOrdered By: Darcy Elias on 09-20-2024 MCHC (RBC) [Mass/Vol] 31.9 g/dL Low 32-36 [facility] Mean platelet volume determi nationOrdered By: Darcy Elias on 09-20-2024 Platelet mean volume (Bld) [Entitic vol] 11.3 fL 6.2-12.0 [facility] Platelet countOrdered By: Barney Elias on 09-20-2024 Platelets (Bld) [#/Vol] 126 10*3/uL Low 150-450 [facility] Potassium (Unsp spec) [Mass/ Vol]Ordered By: Darcy Elias on 09-20-2024 Potassium [Moles/Vol] 4.2 mmol/L 3.3-5.1 [facility] RBC Auto (Bld) [#/Vol]Ordere d By: Darcy Elias on 09-20-2024 RBC (Bld) [#/Vol] 3.40 10*6/uL Low 4.2-5.4 [facility] Screening total cholesterol/ high density lipoprotein (HDL) cholesterol ratioOrdered By: Darcy Elias on 09-20-2024 Cholesterol.total/Cholest cristian in HDL [Mass ratio] 2.99 {ratio} [facility] Serum creatinine measurement (mass/volume)Ordered By: Darcy Elias on 03-24-2025 Creatinine [Mass/Vol] 0.78 mg/dL 0.70-1.20 [facility] Serum glucose measurement (m ass/volume)Ordered By: Darcy Elias on 09-20-2024 Glucose [Mass/Vol] 229 mg/dL High 70-99 [facility] Serum or plasma calcium sonu urement (mass/volume)Ordered By: Darcy Elias on 09-20-2024 Calcium [Mass/Vol] 9.6 mg/dL 7.6-11.0 [facility] Serum or plasma cholesterol in HDL measurement (mass/volume)Ordered By: Darcy Elias on 09-20-2024 Cholesterol in HDL [Mass/Vol] 39 mg/dL Low >40 [facility] Comment on above: National Cholesterol Education Program (NCEP) guidelines:<40 mg/dL: Low HDL-cholesterol (major risk factor for CHD)>= 60 mg/dL: High HDL-cholesterol (negative risk factor for CHD)HDL-cholesterol is affected by a number of factors, e.g. smoking, exercise, hormones, sex and age. Serum or plasma cholesterol measurement (mass/volume)Ordered By: Darcy Elias on 09-20-2024 Cholesterol [Mass/Vol] 118 mg/dL <201 [facility] Comment on above: Cholesterol level, D esirable <200 mg/dLBorderline high cholesterol 200-239 mg/dLHigh cholesterol >=240 mg/dLRecommendations of the NCEP Adult Treatment Panel for the following risk-cutoff thresholds for the [place] population. Serum or plasma urea nitroge n measurement (mass/volume)Ordered By: Darcy Elias on 09-20-2024 Urea nitrogen [Mass/Vol] 18 mg/dL 4-19 [facility] Sodium levelOrdered By: Bibi Elias on 09-20-2024 Sodium [Moles/Vol] 138 mmol/L 133-145 [facility] T4 Total, Thyroxinon 025 T4 [Mass/Vol] 8.9 ug/dL Normal 4.8-13.9 [facility] Comment on above: Order Comment: 504-1 Performed By: #### L 501.9983, L506.1001, L500.2500, L501.9310, L500.4100, L100.0500, L501.9520, L503.6150 #### [facility] [address] [place], [address] TSH DL <= 0.005 mIU/L QnOrde red By: Darcy Elias on 09-20-2024 Thyroid Stimulating Hormone (TSH) 3.890 uIU/mL 0.300-4.200 [facility] Thyroid Stim Hormone (TSH)on 09-20-2024 TSH 3.890 uIU/mL Normal 0.300-4.200 [facility] Comment on above: Order Comment: 504-1 Performed By: #### L 501.9985, L506.1001, L500.2500, L501.9310, L500.4100, L100.0500, L501.9520, L503.6150 #### [facility] [address] [place], [address] ThyroxineOrdered By: Darcy Elias on 09-20-2024 T4 [Mass/Vol] 8.9 ug/dL 4.8-13.9 [facility] Triglycerides measurementOrd ered By: Darcy Elias on 09-20-2024 Triglyceride [Mass/Vol] 111 mg/dL <199 [facility] Comment on above: The drugs N-Acetylcy steine and Metamizole may falsely depress this assay. Normal range: <150 mg/dLBorderline High: 150-199 mg/dLHigh: 200-499 mg/dLVery High: >500 mg/dL White blood cell (WBC) count Ordered By: Darcy Elias on 09-20-2024 WBC (Bld) [#/Vol] 4.4 10*3/uL 4.4-11.0 [facility] Basic Metabolic Profile (BMP )on 06-21-2024 BUN/CRE 37.6 RATIO High 10-20 [facility] Comment on above: Performed By: #### L 501.9985, L506.1001, L500.2500, L501.9310, L500.4100, L100.0500, L501.9520, L503.6150 #### [facility] [address] [place], [address] CA,Total 9.6 mg/dL Normal 8.5-10.1 [facility] Comment on above: Performed By: #### L 501.9985, L506.1001, L500.2500, L501.9310, L500.4100, L100.0500, L501.9520, L503.6150 #### [facility] [address] [place], [address] Chloride [Moles/Vol] 107 mmol/L Normal 98-107 [place] Comment on above: Performed By: #### L 501.9985, L506.1001, L500.2500, L501.9310, L500.4100, L100.0500, L501.9520, L503.6150 #### [facility] [address] [place], [address] CO2 [Moles/Vol] 28.0 mmol/L Normal 21.0-32.0 [facility] Comment on above: Performed By: #### L 501.9985, L506.1001, L500.2500, L501.9310, L500.4100, L100.0500, L501.9520, L503.6150 #### [facility] [address] [place], [address] Creatinine [Mass/Vol] 0.77 mg/dL Normal 0.55-1.02 [facility] Comment on above: Result Comment: The validity of the calculated GFR GFRAA in patients over 70 years has not been determined. Clinical correlation is essential. Performed By: #### L 501.9985, L506.1001, L500.2500, L501.9310, L500.4100, L100.0500, L501.9520, L503.6150 #### [facility] [address] [place], [address] EST GFR - AA 92 mL/min Normal >60 [facility] Comment on above: Result Comment: Afri can Citizen [place] GFR Calc Performed By: #### L 501.9985, L506.1001, L500.2500, L501.9310, L500.4100, L100.0500, L501.9520, L503.6150 #### [facility] [address] [place], [address] GAP 5 Normal 5-15 [facility] Comment on above: Performed By: #### L 501.9985, L506.1001, L500.2500, L501.9310, L500.4100, L100.0500, L501.9520, L503.6150 #### [facility] [address] [place], [address] (284) GFR/1.73 sq M.predicted among non-blacks MDRD (S/P/Bld) [Vol rate/Area] 76 mL/min/{1.73_m2} Normal >60 [facility] Comment on above: Result Comment: Non- GFR Calc Performed By: #### L 501.9985, L506.1001, L500.2500, L501.9310, L500.4100, L100.0500, L501.9520, L503.6150 #### [facility] [address] [place], [address] Glucose [Mass/Vol] 100 mg/dL Normal 74-106 [facility] Comment on above: Result Comment: Fast ing Glucose result from 100 to 125 mg/dL suggests IMPAIRED HOMEOSTASIS per A.D.A. criteria. Performed By: #### L 501.9985, L506.1001, L500.2500, L501.9310, L500.4100, L100.0500, L501.9520, L503.6150 #### [facility] [address] [place], [address] Potassium [Moles/Vol] 3.9 mmol/L Normal 3.5-5.1 [facility] Comment on above: Performed By: #### L 501.9985, L506.1001, L500.2500, L501.9310, L500.4100, L100.0500, L501.9520, L503.6150 #### [facility] [address] [place], [address] Sodium [Moles/Vol] 140 mmol/L Normal 136-145 [facility] Comment on above: Performed By: #### L 501.9985, L506.1001, L500.2500, L501.9310, L500.4100, L100.0500, L501.9520, L503.6150 #### [facility] [address] [place], [address] Urea nitrogen [Mass/Vol] 29 mg/dL High - [facility] Comment on above: Performed By: #### L 501.9985, L506.1001, L500.2500, L501.9310, L500.4100, L100.0500, L501.9520, L503.6150 #### [facility] [address] [place], [address] Blood urea nitrogen (BUN)/cr eatinine ratioOrdered By: Darcy Elias on 06-21-2024 Urea nitrogen/Creatinine [Mass ratio] 37.6 mg/mg High 04-18 [facility] CBC-Complete Blood Cnt No Di ffon 06-21-2024 Erythrocyte distribution width (RBC) [Ratio] 13.3 % Normal 11.6-14.6 [facility] Comment on above: Performed By: #### L 501.9985, L506.1001, L500.2500, L501.9310, L500.4100, L100.0500, L501.9520, L503.6150 #### [facility] [address] [place], [address] Hematocrit (Bld) [Volume fraction] 33.1 % Low 37-47 [facility] Comment on above: Performed By: #### L 501.9985, L506.1001, L500.2500, L501.9310, L500.4100, L100.0500, L501.9520, L503.6150 #### [facility] [address] [place], [address] Hemoglobin (Bld) [Mass/Vol] 10.5 g/dL Low 12.0-15.0 [facility] Comment on above: Performed By: #### L 501.9985, L506.1001, L500.2500, L501.9310, L500.4100, L100.0500, L501.9520, L503.6150 #### [facility] [address] [place], [address] MCH (RBC) [Entitic mass] 31.8 pg Normal 27.0-32.0 [facility] Comment on above: Performed By: #### L 501.9985, L506.1001, L500.2500, L501.9310, L500.4100, L100.0500, L501.9520, L503.6150 #### [facility] [address] [place], [address] MCHC (RBC) [Mass/Vol] 31.7 g/dL Low 32-36 [facility] Comment on above: Performed By: #### L 501.9985, L506.1001, L500.2500, L501.9310, L500.4100, L100.0500, L501.9520, L503.6150 #### [facility] [address] [place], [address] MCV (RBC) [Entitic vol] 100.3 fL High 81-99 [facility] Comment on above: Performed By: #### L 501.9985, L506.1001, L500.2500, L501.9310, L500.4100, L100.0500, L501.9520, L503.6150 #### [facility] [address] [place], [address] Platelet mean volume (Bld) [Entitic vol] 11.5 fL Normal 6.2-12.0 [facility] Comment on above: Performed By: #### L 501.9985, L506.1001, L500.2500, L501.9310, L500.4100, L100.0500, L501.9520, L503.6150 #### [facility] [address] [place], [address] Platelets (Bld) [#/Vol] 125 10*3/uL Low 150-450 [facility] Comment on above: Performed By: #### L 501.9985, L506.1001, L500.2500, L501.9310, L500.4100, L100.0500, L501.9520, L503.6150 #### [facility] [address] [place], [place], [id number] (677 RBC (Bld) [#/Vol] 3.30 10*6/uL Low 4.2-5.4 [facility] Comment on above: Performed By: #### L 501.9985, L506.1001, L500.2500, L501.9310, L500.4100, L100.0500, L501.9520, L503.6150 #### [facility] [address] [place], [address] RDW SD 49.0 fl High 35.1-43.9 [facility] Comment on above: Performed By: #### L 501.9985, L506.1001, L500.2500, L501.9310, L500.4100, L100.0500, L501.9520, L503.6150 #### [facility] [address] [place], [place], [address] WBC (Bld) [#/Vol] 3.9 10*3/uL Low 4.4-11.0 [facility] Comment on above: Performed By: #### L 501.9985, L506.1001, L500.2500, L501.9310, L500.4100, L100.0500, L501.9520, L503.6150 #### [facility] [address] [place], [address] Carbon dioxide measurementOr dered By: Darcy Elias on 06-21-2024 CO2 [Moles/Vol] 28.0 mmol/L 21.0-32.0 [facility] Chloride measurementOrdered By: Darcy Elias on 06-21-2024 Chloride [Moles/Vol] 107 mmol/L 98-107 [place] Erythrocyte distribution wid th (RBC) [Ratio]Ordered By: Darcy Elias on 06-21-2024 Erythrocyte distribution width (RBC) [Entitic vol] 49.0 fL High 35.1-43.9 [facility] Erythrocyte distribution wid th ratioOrdered By: Darcy Elias on 06-21-2024 Erythrocyte distribution width (RBC) [Ratio] 13.3 % 11.6-14.6 [facility] Estimated glomerular filtrat ion rate (GFR) AmericanOrdered By: Darcy Elias on 06-21-2024 Estimated GFR (MDRD) Amer 92 mL/min >60 [facility] Comment on above: GFR Calc Glomerular filtration rate ( GFR) estimationOrdered By: Darcy Elias on 06-21-2024 Estimated GFR (MDRD) Non-Af Amer 76 mL/min >60 [facility] Comment on above: Non- GFR Calc Glucose measurementOrdered B y: Darcy Elias on 06-21-2024 Glucose [Mass/Vol] 100 mg/dL 74-106 [facility] Comment on above: Fasting Glucose resu lt from 100 to 125 mg/dL suggests IMPAIRED HOMEOSTASIS per A.D.A. criteria. Hematocrit Auto (Bld) [Volum e fraction]Ordered By: Darcy Elias on 06-21-2024 Hematocrit (Bld) [Volume fraction] 33.1 % Low 37-47 [facility] Hemoglobin A1con 06-21-2024 HbA1c (Bld) [Mass fraction] 7.4 % High 3.8-5.6 [facility] Comment on above: Result Comment: Norm al < 5.7 % Prediabetic 5.7 - 6.4 % Diabetic >or= 6.5 % Please note range changes. Performed By: #### L 501.9985, L506.1001, L500.2500, L501.9310, L500.4100, L100.0500, L501.9520, L503.6150 #### [facility] [address] [place], [address] Hemoglobin A1c percentageOrd ered By: Darcy Elias on 06-21-2024 HbA1c (Bld) [Mass fraction] 7.4 % High 3.8-5.6 [facility] Comment on above: Normal < 5.7 % Predi abetic 5.7 - 6.4 % Diabetic >or= 6.5 % Please note range changes. Hemoglobin measurementOrdere d By: Darcy Elias on 06-21-2024 Hemoglobin (Bld) [Mass/Vol] 10.5 g/dL Low 12.0-15.0 [facility] High density lipoprotein (HD L) measurementOrdered By: Darcy Elias on 06-21-2024 Cholesterol in HDL [Mass/Vol] 43 mg/dL >40 [facility] Comment on above: The drugs N-Acetylcy steine and Metamizole may falsely depress this assay. Reference Range HDL <40 mg/dL Low HDL Cholesterol HDL >or= 60 mg/dL High HDL Cholesterol Lipid Profileon 06-21-2024 Cholesterol [Mass/Vol] 118 mg/dL Normal 200 [facility] Comment on above: Result Comment: <200 mg/dL Desirable 200-240 mg/dL Borderline >240 mg/dL High Risk Performed By: #### L 501.9985, L506.1001, L500.2500, L501.9310, L500.4100, L100.0500, L501.9520, L503.6150 #### [facility] [address] [place], [address] Cholesterol in HDL [Mass/Vol] 43 mg/dL Normal [facility] Comment on above: Result Comment: The drugs N-Acetylcysteine and Metamizole may falsely depress this assay. Reference Range HDL <40 mg/dL Low HDL Cholesterol HDL >or= 60 mg/dL High HDL Cholesterol Performed By: #### L 501.9985, L506.1001, L500.2500, L501.9310, L500.4100, L100.0500, L501.9520, L503.6150 #### [facility] [address] [place], [address] Cholesterol in LDL [Mass/Vol] 52 mg/dL Normal 0-130 [facility] Comment on above: Performed By: #### L 501.9985, L506.1001, L500.2500, L501.9310, L500.4100, L100.0500, L501.9520, L503.6150 #### [facility] [address] [place], [address] Cholesterol in VLDL [Mass/Vol] 23 mg/dL Normal 5-40 [facility] Comment on above: Performed By: #### L 501.9985, L506.1001, L500.2500, L501.9310, L500.4100, L100.0500, L501.9520, L503.6150 #### [facility] [address] [place], [address] Triglyceride [Mass/Vol] 114 mg/dL Normal [facility] Comment on above: Result Comment: The drugs N-Acetylcysteine and Metamizole may falsely depress this assay. Serum Triglycerides Reference Interval Normal <150 mg/dL Borderline high 150 - 199 mg/dL High 200 - 499 mg/dL Very High > or = 500 mg/dL Performed By: #### L 501.9985, L506.1001, L500.2500, L501.9310, L500.4100, L100.0500, L501.9520, L503.6150 #### [facility] [address] [place], [address] Low density lipoprotein (LDL ) cholesterol measurementOrdered By: Darcy Elias on 06-21-2024 Cholesterol in LDL [Mass/Vol] 52 mg/dL 0-130 [facility] MCV (mean corpuscular volume ) determinationOrdered By: Darcy Elias on 06-21-2024 MCV (RBC) [Entitic vol] 100.3 fL High 81-99 [facility] Mean corpuscular hemoglobin (MCH) determinationOrdered By: Darcy Elias on 06-21-2024 MCH (RBC) [Entitic mass] 31.8 pg 27.0-32.0 [facility] Mean corpuscular hemoglobin concentration (MCHC) determinationOrdered By: Darcy Elias on 06-21-2024 MCHC (RBC) [Mass/Vol] 31.7 g/dL Low 32-36 [facility] Mean platelet volume determi nationOrdered By: Darcy Elias on 06-21-2024 Platelet mean volume (Bld) [Entitic vol] 11.5 fL 6.2-12.0 [facility] Platelet countOrdered By: Barney Elias on 06-21-2024 Platelets (Bld) [#/Vol] 125 10*3/uL Low 150-450 [facility] Potassium measurementOrdered By: Darcy Elias on 06-21-2024 Potassium [Moles/Vol] 3.9 mmol/L 3.5-5.1 [facility] RBC Auto (Bld) [#/Vol]Ordere d By: Darcy Elias on 06-21-2024 RBC (Bld) [#/Vol] 3.30 10*6/uL Low 4.2-5.4 [facility] Serum anion gap measurementO rdered By: Darcy Elias on 06-21-2024 Anion gap [Moles/Vol] 5 mmol/L 5-15 [facility] Serum or plasma calcium sonu urement (mass/volume)Ordered By: Darcy Elias on 06-21-2024 Calcium [Mass/Vol] 9.6 mg/dL 8.5-10.1 [facility] Serum or plasma cholesterol measurement (mass/volume)Ordered By: Darcy Elias on 06-21-2024 Cholesterol [Mass/Vol] 118 mg/dL <200 [facility] Comment on above: <200 mg/dL Desirable 200-240 mg/dL Borderline >240 mg/dL High Risk Serum or plasma creatinine m easurement (mass/volume)Ordered By: Darcy Elias on 06-21-2024 Creatinine [Mass/Vol] 0.77 mg/dL 0.55-1.02 [facility] Comment on above: The validity of the calculated GFR & GFRAA in patients over 70 years has not been determined. Clinical correlation is essential. Serum or plasma thyroxine (T 4) measurement (mass/volume)Ordered By: Darcy Elias on 06-21-2024 T4 [Mass/Vol] 11.6 ug/dL 4.8-13.9 [facility] Serum or plasma urea nitroge n measurement (mass/volume)Ordered By: Darcy Elias on 06-21-2024 Urea nitrogen [Mass/Vol] 29 mg/dL High 7-18 [facility] Sodium levelOrdered By: Bibi Elias on 06-21-2024 Sodium [Moles/Vol] 140 mmol/L 136-145 [facility] T4 Total, Thyroxinon 024 T4 [Mass/Vol] 11.6 ug/dL Normal 4.8-13.9 [facility] Comment on above: Performed By: #### L 501.9985, L506.1001, L500.2500, L501.9310, L500.4100, L100.0500, L501.9520, L503.6150 #### [facility] [address] [place], [address] TSH QnOrdered By: Darcy carrizales on 06-21-2024 Thyroid Stimulating Hormone (TSH) 2.350 uIU/mL 0.358-3.740 [facility] Thyroid Stim Hormone (TSH)on 06-21-2024 TSH 2.350 uIU/mL Normal 0.358-3.740 [facility] Comment on above: Performed By: #### L 501.9985, L506.1001, L500.2500, L501.9310, L500.4100, L100.0500, L501.9520, L503.6150 #### [facility] [address] [place], [address] Triglycerides measurementOrd ered By: Darcy Elias on 06-21-2024 Triglyceride [Mass/Vol] 114 mg/dL <199 [facility] Comment on above: The drugs N-Acetylcy steine and Metamizole may falsely depress this assay.Serum Triglycerides Reference Interval Normal <150 mg/dL Borderline high 150 - 199 mg/dL High 200 - 499 mg/dL Very High > or = 500 mg/dL Very low density lipoprotein (VLDL) cholesterol measurementOrdered By: Darcy Elias on 06-21-2024 VLDL Cholesterol 23 mg/dL 5-40 [facility] White blood cell (WBC) count Ordered By: Darcy Elias on 06-21-2024 WBC (Bld) [#/Vol] 3.9 10*3/uL Low 4.4-11.0 [facility] Hemoglobin A1con 03-22-2024 HbA1c (Bld) [Mass fraction] 6.4 % High 3.8-5.6 [facility] Comment on above: Order Comment: 314.1 Result Comment: Norm al < 5.7 % Prediabetic 5.7 - 6.4 % Diabetic >or= 6.5 % Please note range changes. Performed By: #### L 501.9985, L506.1001, L500.2500, L501.9310, L500.4100, L100.0500, L501.9520, L503.6150 #### [facility] [address] [place], [place], [id number] T4 Total, Thyroxinon 024 T4 [Mass/Vol] 9.3 ug/dL Normal 4.8-13.9 [facility] Comment on above: Order Comment: 314.1 Performed By: #### L 501.9985, L506.1001, L500.2500, L501.9310, L500.4100, L100.0500, L501.9520, L503.6150 #### [facility] [address] [place], [address] Thyroid Stim Hormone (TSH)on 03-22-2024 TSH 3.280 uIU/mL Normal 0.358-3.740 [facility] Comment on above: Order Comment: 314.1 Performed By: #### L 501.9985, L506.1001, L500.2500, L501.9310, L500.4100, L100.0500, L501.9520, L503.6150 #### [facility] [address] [place], [place], [id number] Basic Metabolic Profile (BMP )on 02-05-2024 BUN/CRE 49.4 RATIO High 10-20 [facility] Comment on above: Order Comment: 205.1 Performed By: #### L 501.9985, L506.1001, L500.2500, L501.9310, L500.4100, L100.0500, L501.9520, L503.6150 #### [facility] [address] [place], [place], [id number] CA,Total 9.1 mg/dL Normal 8.5-10.1 [facility] Comment on above: Order Comment: 205.1 Performed By: #### L 501.9985, L506.1001, L500.2500, L501.9310, L500.4100, L100.0500, L501.9520, L503.6150 #### [facility] [address] [place], [place], [id number] Chloride [Moles/Vol] 110 mmol/L High 98-107 [place] Comment on above: Order Comment: 205.1 Performed By: #### L 501.9985, L506.1001, L500.2500, L501.9310, L500.4100, L100.0500, L501.9520, L503.6150 #### [facility] [address] [place], [address] (007) CO2 [Moles/Vol] 29.0 mmol/L Normal 21.0-32.0 [facility] Comment on above: Order Comment: 205.1 Performed By: #### L 501.9985, L506.1001, L500.2500, L501.9310, L500.4100, L100.0500, L501.9520, L503.6150 #### [facility] [address] [place], [address] Creatinine [Mass/Vol] 0.59 mg/dL Normal 0.55-1.02 [facility] Comment on above: Order Comment: 205.1 Result Comment: The validity of the calculated GFR GFRAA in patients over 70 years has not been determined. Clinical correlation is essential. Performed By: #### L 501.9985, L506.1001, L500.2500, L501.9310, L500.4100, L100.0500, L501.9520, L503.6150 #### [facility] [address] [place], [place], [id number] EST GFR - AA 127 mL/min Normal >60 [facility] Comment on above: Order Comment: 205.1 Result Comment: Afri can [place] GFR Calc Performed By: #### L 501.9985, L506.1001, L500.2500, L501.9310, L500.4100, L100.0500, L501.9520, L503.6150 #### [facility] [address] [place], [address] GAP 5 Normal 5-15 [facility] Comment on above: Order Comment: . Performed By: #### L 501.9985, L506.1001, L500.2500, L501.9310, L500.4100, L100.0500, L501.9520, L503.6150 #### [facility] [address] [place], [address] GFR/1.73 sq M.predicted among non-blacks MDRD (S/P/Bld) [Vol rate/Area] 105 mL/min/{1.73_m2} Normal >60 [facility] Comment on above: Order Comment: . Result Comment: Non- GFR Calc Performed By: #### L 501.9985, L506.1001, L500.2500, L501.9310, L500.4100, L100.0500, L501.9520, L503.6150 #### [facility] [address] [place], [address] Glucose [Mass/Vol] 54 mg/dL Low 74-106 [facility] Comment on above: Order Comment: . Performed By: #### L 501.9985, L506.1001, L500.2500, L501.9310, L500.4100, L100.0500, L501.9520, L503.6150 #### [facility] [address] [place], [address] Potassium [Moles/Vol] 3.7 mmol/L Normal 3.5-5.1 [facility] Comment on above: Order Comment: Performed By: #### L 501.9985, L506.1001, L500.2500, L501.9310, L500.4100, L100.0500, L501.9520, L503.6150 #### [facility] [address] [place], [address] Sodium [Moles/Vol] 144 mmol/L Normal 136-145 [facility] Comment on above: Order Comment: . Performed By: #### L 501.9985, L506.1001, L500.2500, L501.9310, L500.4100, L100.0500, L501.9520, L503.6150 #### [facility] [address] [place], [address] Urea nitrogen [Mass/Vol] 29 mg/dL High 7-18 [facility] Comment on above: Order Comment: . Performed By: #### L 501.9985, L506.1001, L500.2500, L501.9310, L500.4100, L100.0500, L501.9520, L503.6150 #### [facility] [address] [place], [address] CBC-Complete Blood Cnt No Di ffon 02-05-2024 Erythrocyte distribution width (RBC) [Ratio] 15.3 % High 11.6-14.6 [facility] Comment on above: Order Comment: . Performed By: #### L 501.9985, L506.1001, L500.2500, L501.9310, L500.4100, L100.0500, L501.9520, L503.6150 #### [facility] [address] [place], [address] Hematocrit (Bld) [Volume fraction] 31.2 % Low 37-47 [facility] Comment on above: Order Comment: . Performed By: #### L 501.9985, L506.1001, L500.2500, L501.9310, L500.4100, L100.0500, L501.9520, L503.6150 #### [facility] [address] [place], [address] Hemoglobin (Bld) [Mass/Vol] 9.5 g/dL Low 12.0-15.0 [facility] Comment on above: Order Comment: . Performed By: #### L 501.9985, L506.1001, L500.2500, L501.9310, L500.4100, L100.0500, L501.9520, L503.6150 #### [facility] [address] [place], [address] MCH (RBC) [Entitic mass] 30.8 pg Normal 27.0-32.0 [facility] Comment on above: Order Comment: . Performed By: #### L 501.9985, L506.1001, L500.2500, L501.9310, L500.4100, L100.0500, L501.9520, L503.6150 #### [facility] [address] [place], [address] MCHC (RBC) [Mass/Vol] 30.4 g/dL Low 32-36 [facility] Comment on above: Order Comment: . Performed By: #### L 501.9985, L506.1001, L500.2500, L501.9310, L500.4100, L100.0500, L501.9520, L503.6150 #### [facility] [address] [place], [address] MCV (RBC) [Entitic vol] 101.3 fL High 81-99 [facility] Comment on above: Order Comment: . Performed By: #### L 501.9985, L506.1001, L500.2500, L501.9310, L500.4100, L100.0500, L501.9520, L503.6150 #### [facility] [address] [place], [address] Platelet mean volume (Bld) [Entitic vol] 11.6 fL Normal 6.2-12.0 [facility] Comment on above: Order Comment: . Performed By: #### L 501.9985, L506.1001, L500.2500, L501.9310, L500.4100, L100.0500, L501.9520, L503.6150 #### [facility] [address] [place], [address] Platelets (Bld) [#/Vol] 117 10*3/uL Low 150-450 [facility] Comment on above: Order Comment: . Performed By: #### L 501.9985, L506.1001, L500.2500, L501.9310, L500.4100, L100.0500, L501.9520, L503.6150 #### [facility] [address] [place], [address] RBC (Bld) [#/Vol] 3.08 10*6/uL Low 4.2-5.4 [facility] Comment on above: Order Comment: . Performed By: #### L 501.9985, L506.1001, L500.2500, L501.9310, L500.4100, L100.0500, L501.9520, L503.6150 #### [facility] [address] [place], [address] RDW SD 57.6 fl High 35.1-43.9 [facility] Comment on above: Order Comment: . Performed By: #### L 501.9985, L506.1001, L500.2500, L501.9310, L500.4100, L100.0500, L501.9520, L503.6150 #### [facility] [address] [place], [address] WBC (Bld) [#/Vol] 3.2 10*3/uL Low 4.4-11.0 [facility] Comment on above: Order Comment: . Performed By: #### L 501.9985, L506.1001, L500.2500, L501.9310, L500.4100, L100.0500, L501.9520, L503.6150 #### [facility] [address] [place], [address] Basic Metabolic Profile (BMP )on 01-19-2024 BUN Normal 7-18 [facility] Comment on above: Result Comment: Canc elled via OM: Order cancelled - Patient discharged Performed By: #### L 500.2500 #### [facility] [address] [place], [address] BUN/CRE Normal 10-20 [facility] Comment on above: Result Comment: Canc elled via OM: Order cancelled - Patient discharged Performed By: #### L 500.2500 #### [facility] [address] [place], [address] CA,Total Normal 8.5-10.1 [facility] Comment on above: Result Comment: Canc elled via OM: Order cancelled - Patient discharged Performed By: #### L 500.2500 #### [facility] [address] [place], [address] CL Normal 98-107 [facility] Comment on above: Result Comment: Canc elled via OM: Order cancelled - Patient discharged Performed By: #### L 500.2500 #### [facility] [address] [place], [address] CO2 Normal 21.0-32.0 [facility] Comment on above: Result Comment: Canc elled via OM: Order cancelled - Patient discharged Performed By: #### L 500.2500 #### [facility] [address] [place], [address] CREAT,SERUM Normal 0.55-1.02 [facility] Comment on above: Result Comment: Canc elled via OM: Order cancelled - Patient discharged Performed By: #### L 500.2500 #### [facility] [address] [place], [address] EST GFR Normal >60 [facility] Comment on above: Result Comment: Canc elled via OM: Order cancelled - Patient discharged Performed By: #### L 500.2500 #### [facility] [address] [place], [address] EST GFR - AA Normal >60 [facility] Comment on above: Result Comment: Canc elled via OM: Order cancelled - Patient discharged Performed By: #### L 500.2500 #### [facility] [address] [place], [address] GAP Normal 5-15 [facility] Comment on above: Result Comment: Canc elled via OM: Order cancelled - Patient discharged Performed By: #### L 500.2500 #### [facility] [address] [place], [address] GLU Normal 74-106 [facility] Comment on above: Result Comment: Canc elled via OM: Order cancelled - Patient discharged Performed By: #### L 500.2500 #### [facility] [address] [place], [address] Potassium Normal 3.5-5.1 [facility] Comment on above: Result Comment: Canc elled via OM: Order cancelled - Patient discharged Performed By: #### L 500.2500 #### [facility] [address] [place], [address] Basic Metabolic Profile (BMP) Normal 136-145 [facility] Comment on above: Result Comment: Canc elled via OM: Order cancelled - Patient discharged Performed By: #### L 500.2500 #### [facility] [address] [place], [address] CBC W/Diff, Automatedon 07-2 Absolute Neut Normal 2.0-7.7 [facility] Comment on above: Result Comment: Canc elled via OM: Order cancelled - Patient discharged Performed By: #### L 100.0100 #### [facility] [address] [place], [address] HCT Normal 37-47 [facility] Comment on above: Result Comment: Canc elled via OM: Order cancelled - Patient discharged Performed By: #### L 100.0100 #### [facility] [address] [place], [address] HGB Normal 12.0-15.0 [facility] Comment on above: Result Comment: Canc elled via OM: Order cancelled - Patient discharged Performed By: #### L 100.0100 #### [facility] [address] [place], [address] MCH Normal 27.0-32.0 [facility] Comment on above: Result Comment: Canc elled via OM: Order cancelled - Patient discharged Performed By: #### L 100.0100 #### [facility] [address] [place], [address] MCHC Normal 32-36 [facility] Comment on above: Result Comment: Canc elled via OM: Order cancelled - Patient discharged Performed By: #### L 100.0100 #### [facility] [address] [place], [address] MCV Normal 81-99 [facility] Comment on above: Result Comment: Canc elled via OM: Order cancelled - Patient discharged Performed By: #### L 100.0100 #### [facility] [address] [place], [address] NEUT% Normal 47-70 [facility] Comment on above: Result Comment: Canc elled via OM: Order cancelled - Patient discharged Performed By: #### L 100.0100 #### [facility] [address] [place], [address] PLT Normal 150-450 [facility] Comment on above: Result Comment: Canc elled via OM: Order cancelled - Patient discharged Performed By: #### L 100.0100 #### [facility] [address] [place], [address] RBC Normal 4.2-5.4 [facility] Comment on above: Result Comment: Canc elled via OM: Order cancelled - Patient discharged Performed By: #### L 100.0100 #### [facility] [address] [place], [address] RDW CV Normal 11.6-14.6 [facility] Comment on above: Result Comment: Canc elled via OM: Order cancelled - Patient discharged Performed By: #### L 100.0100 #### [facility] [address] [place], [address] RDW SD Normal 35.1-43.9 [facility] Comment on above: Result Comment: Canc elled via OM: Order cancelled - Patient discharged Performed By: #### L 100.0100 #### [facility] [address] [place], [address] WBC Normal 4.4-11.0 [facility] Comment on above: Result Comment: Canc elled via OM: Order cancelled - Patient discharged Performed By: #### L 100.0100 #### [facility] [address] [place], [address] CNPNon 11-25-2023 [facility] Telephone (PAULYWS) STEVE VIEIRA ([id number]) 1945 F Date Time Provider Department [facility] today, we recorded the following information about you: Alta Ortiz LPN 11/25/2023 3:46 PM Signed Naye with [facility] calls to report that pt was [...] DM teaching--see if can get in with special education paraeducator or ANTIQUE CLOCK REPAIRER/PAS to help with use of CGM as [...] Signed 1st call attempt, left vm Renetta Aebrnathy LPN 12/04/2023 2:10 PM Signed Pt has been admitted to [facility]. See ER and HANDP note. Allergies As [...] as of 12/04/2023 - Blood-Glucose Meter,Continuous (FREESTYLE PILAR 3 READER) misc Use to check blood [...] subcutaneously one time a week. Gets through [employer] PAP. - levothyroxine (SYNTHROID) 25 mcg tablet Take 1 tablet by mouth every Friday,Friday, ay. Take on empty stomach. For thyroid. Add to the levothyroxine 50 mcg once daily dosing but just on Fri-Fri-Fri - empagliflozin (JARDIANCE) 25 mg tablet Take 1 tablet by mouth daily with breakfast. Gets through [employer] PAP. - ferrous sulfate 325 mg (65 [...] Encounter Status:Closed by RENETTA ABERNATHY [facility]04[facility] STEVE VIEIRA ([id number]) 1945 F Date Time Provider Department 11/14/23 [...] - Blood-Glucose Meter,Continuous (FREESTYLE PILAR 3 READER) [facility] Use to check blood sugar at least [...] Encounter Status:Clos (more content not included)... Normal [facility] CNPNon 11-13-2023 CNPN Telephone (INTMWS) STEVE VIEIRA ([id number]) 1945 F Date Time Provider Department 11/13/23 [...] this we would fax them to # [phone]. Loan Johnston MA 11/13/2023 3:32 PM Signed Faxed office notes/A1c values with additonal question form ИВАН Suazo Amanda, RN 11/14/2023 9:19 AM Signed Faxed completed signed last OV note from 11/12/23 to [place] Department with [employer] fax # [phone]. Loan Johnston MA 11/17/2023 8:56 AM Signed [...] Fully Assessed Reason for Visit: Insurance Authorization [[id number]] Cmt: pilar Prescriptions as of 11/17/2023 - Blood-Glucose Meter,Continuous (FREESTYLE PILAR 3 READER) [facility] Use to check blood sugar at least [...] subcutaneously one time a week. Gets through [employer] PAP. - levothyroxine (SYNTHROID) 25 mcg tablet Take 1 tablet by mouth every Friday,Friday, ay. Take on empty stomach. For thyroid. Add to the levothyroxine 50 mcg once daily dosing but just on Fri-Fri-Fri - empagliflozin (JARDIANCE) 25 mg tablet Take 1 tablet by mouth daily with breakfast. Gets through [employer] PAP. - ferrous sulfate 325 mg [...] Encounter Status:Closed by SHARON MAYER on 11/14/23 [facility] 11-12-2023 CNOV Office Visit (INTMWS ) STEVE VIEIRA ([id number]) 1945 F Date Time Provider Department 11/12/23 2:00 PM PETER ELLIS INTMWS During your visit today, we recorded the following information about you: Temperature Pulse Respiration Blood pressure 97.6 degrees 93/minute 18/minute 124/72 Peter Ellis MD 11/14/2023 9:10 AM Signed This note was created using [employer]. Subjective Steve Vieira is a 78 year [...] walking from home to her appointment. [employer]. Has cat. States trying to Was at [...] wants her to move where they are ([place]). Has a friend who lives [place]--prefers to move there. Kids were here after when she was transferred to [facility] then had to go back to their homes. Not sure about her meds but gets from [place]. Wants CGM so can check sugars. Feet [...] subcutaneously one time a week. Gets through [employer] PAP. levothyroxine (SYNTHROID) 25 mcg tablet Take 1 tablet by mouth every Friday,Friday, ay. Take on empty stomach. For thyroid. Add to the levothyroxine 50 mcg once daily dosing but just on Fri-Fri-Fri empagliflozin (JARDIANCE) 25 mg tablet Take 1 tablet by mouth daily with breakfast. Gets through [employer] PAP. ferrous sulfate 325 mg (65 mg [...] (L) MC (more content not included)... Normal [facility] CBC W Auto Differential pane l (Bld)on 10-31-2023 Basophils (Bld) [#/Vol] 0.05 10*3/uL [facility] Basophils/100 WBC (Bld) 1.1 % [facility] Differential cell count method Nom (Bld) Auto [facility] Eosinophils (Bld) [#/Vol] 0.33 10*3/uL [facility] Eosinophils/100 WBC (Bld) 7.1 % [facility] Erythrocyte distribution width (RBC) [Ratio] 15.4 % High 11.5 - 15.0 % [facility] Hematocrit (Bld) [Volume fraction] 35.6 % Low 36.0 - 46.0 % [facility] Hemoglobin (Bld) [Mass/Vol] 10.6 g/dL Low 11.5 - 15.5 g/dL [facility] Immature granulocytes (Bld) [#/Vol] [facility] Immature granulocytes/100 WBC (Bld) 0.2 % [facility] Interpretation and review of laboratory results Abnormal [facility] Lymphocytes (Bld) [#/Vol] 1.23 10*3/uL [facility] Lymphocytes/100 WBC (Bld) 26.6 % [facility] MCH (RBC) [Entitic mass] 27.3 pg 26. 0 - 34.0 pg [facility] MCHC (RBC) [Mass/Vol] 29.8 g/dL Low 30.5 - 36.0 g/dL [facility] MCV (RBC) [Entitic vol] 91.8 fL 80.0 - 100.0 fL [facility] Monocytes (Bld) [#/Vol] 0.36 10*3/uL [facility] Monocytes/100 WBC (Bld) 7.8 % [facility] Neutrophils (Bld) [#/Vol] 2.65 10*3/uL [facility] Neutrophils/100 WBC (Bld) 57.2 % [facility] Nucleated RBC (Bld) [#/Vol] NINF [facility] Nucleated RBC/100 WBC (Bld) [Ratio] 0.0 % /100 WBC [facility] Platelet mean volume (Bld) [Entitic vol] 11.8 fL 9.0 - 12.7 fL [facility] Platelets (Bld) [#/Vol] 177 10*3/uL [facility] RBC (Bld) [#/Vol] 3.88 10*6/uL Low 3.90 - 5.2 0 m/uL [facility] WBC (Bld) [#/Vol] 4.63 10*3/uL [facility] Basophils (Bld) [#/Vol] 0.05 10*3/uL Normal <0.11 [facility] Comment on above: Order Comment: Speci men Type: BLOOD SPECIMENOrdering Facility: [facility] Address: [address] [place] [address] Performed By: #### 5 7021-8 ####[facility] LABIA [id number] [place] [address] [place] Basophils/100 WBC (Bld) 1.1 % Normal [facility] Comment on above: Order Comment: Speci men Type: BLOOD SPECIMENOrdering Facility: [facility] Address: [address] [place] [address] Performed By: #### 5 7021-8 ####[facility] LABIA [id number] [place] [address] [place] Differential cell count method Nom (Bld) Auto Normal [facility] Comment on above: Order Comment: Speci men Type: BLOOD SPECIMENOrdering Facility: [facility] Address: [address] [place] [address] Performed By: #### 5 7021-8 ####[facility] LABCLIA [id number] [place] [address] [place] Eosinophils (Bld) [#/Vol] 0.33 10*3/uL Normal <0.46 [facility] Comment on above: Order Comment: Speci men Type: BLOOD SPECIMENOrdering Facility: [facility] Address: [address] [place] [address] Performed By: #### 5 7021-8 ####[facility] LABCLIA [id number] [place] [address] [place] Eosinophils/100 WBC (Bld) 7.1 % Normal [facility] Comment on above: Order Comment: Speci men Type: BLOOD SPECIMENOrdering Facility: [facility] Address: [address] [place] [address] Performed By: #### 5 7021-8 ####[facility] LABCLIA [id number] [place] [address] [place] Erythrocyte distribution width (RBC) [Ratio] 15.4 % High 11.5-15.0 [facility] Comment on above: Order Comment: Speci men Type: BLOOD SPECIMENOrdering Facility: [facility] Address: [address] [place] [address] Performed By: #### 5 7021-8 ####[facility] LABCLIA [id number] [place] [address] [place] Hematocrit (Bld) [Volume fraction] 35.6 % Low 36.0-46.0 [facility] Comment on above: Order Comment: Speci men Type: BLOOD SPECIMENOrdering Facility: [facility] Address: [address] [place] [address] Performed By: #### 5 7021-8 ####[facility] LABCLIA [id number] [place] [address] [place] Hemoglobin (Bld) [Mass/Vol] 10.6 g/dL Low 11.5-15.5 [facility] Comment on above: Order Comment: Speci men Type: BLOOD SPECIMENOrdering Facility: [facility] Address: [address] [place] [address] Performed By: #### 5 7021-8 ####[facility] LABCLIA [id number] [place] [address] [place] Immature granulocytes (Bld) [#/Vol] 10*3/uL Normal <0.10 [facility] Comment on above: Order Comment: Speci men Type: BLOOD SPECIMENOrdering Facility: [facility] Address: [address] [place] [address] Performed By: #### 5 7021-8 ####[facility] LABCLIA [id number] [place] [address] [place] Immature granulocytes/100 WBC (Bld) 0.2 % Normal [facility] Comment on above: Order Comment: Speci men Type: BLOOD SPECIMENOrdering Facility: [facility] Address: [address] [place] [address] Performed By: #### 5 7021-8 ####[facility] LABCLIA [id number] [place] [address] [place] Lymphocytes (Bld) [#/Vol] 1.23 10*3/uL Normal 1.00-4.0 0 [facility] Comment on above: Order Comment: Speci men Type: BLOOD SPECIMENOrdering Facility: [facility] Address: [address] [place] [address] Performed By: #### 5 7021-8 ####[facility] LABCLIA [id number] [place] [address] [place] Lymphocytes/100 WBC (Bld) 26.6 % Normal [facility] Comment on above: Order Comment: Speci men Type: BLOOD SPECIMENOrdering Facility: [facility] Address: [address] [place] [address] Performed By: #### 5 7021-8 ####[facility] LABCLIA [id number] [place] [address] [place] MCH (RBC) [Entitic mass] 27.3 pg Normal 26.0-34.0 [facility] Comment on above: Order Comment: Speci men Type: BLOOD SPECIMENOrdering Facility: [facility] Address: [address] [place] [address] Performed By: #### 5 7021-8 ####[facility] LABIA [id number] [place] [address] [place] MCHC (RBC) [Mass/Vol] 29.8 g/dL Low 30.5-36.0 [facility] Comment on above: Order Comment: Speci men Type: BLOOD SPECIMENOrdering Facility: [facility] Address: [address] [place] [address] Performed By: #### 5 7021-8 ####[facility] LABIA [id number] [place] [address] [place] MCV (RBC) [Entitic vol] 91.8 fL Normal 80.0-100.0 [facility] Comment on above: Order Comment: Speci men Type: BLOOD SPECIMENOrdering Facility: [facility] Address: [address] [place] [address] Performed By: #### 5 7021-8 ####[facility] LABCLIA [id number] [place] [address] [place] Monocytes (Bld) [#/Vol] 0.36 10*3/uL Normal <0.87 [facility] Comment on above: Order Comment: Speci men Type: BLOOD SPECIMENOrdering Facility: [facility] Address: [address] [place] [address] Performed By: #### 5 7021-8 ####[facility] LABCLIA [id number] [place] [address] [place] Monocytes/100 WBC (Bld) 7.8 % Normal [facility] Comment on above: Order Comment: Speci men Type: BLOOD SPECIMENOrdering Facility: [facility] Address: [address] [place] [address] Performed By: #### 5 7021-8 ####[facility] LABCLIA [id number] [place] [address] [place] Neutrophils (Bld) [#/Vol] 2.65 10*3/uL Normal 1.45-7.5 0 [facility] Comment on above: Order Comment: Speci men Type: BLOOD SPECIMENOrdering Facility: [facility] Address: [address] [place] [address] Performed By: #### 5 7021-8 ####[facility] LABCLIA [id number] [place] [address] [place] Neutrophils/100 WBC (Bld) 57.2 % Normal [facility] Comment on above: Order Comment: Speci men Type: BLOOD SPECIMENOrdering Facility: [facility] Address: [address] [place] [address] Performed By: #### 5 7021-8 ####[facility] LABCLIA [id number] [place] [address] [place] Nucleated RBC (Bld) [#/Vol] 10*3/uL Normal <0.01 [facility] Comment on above: Order Comment: Speci men Type: BLOOD SPECIMENOrdering Facility: [facility] Address: [address] [place] [address] Performed By: #### 5 7021-8 ####[facility] LABCLIA [id number] [place] [address] [place] Nucleated RBC/100 WBC (Bld) [Ratio] 0.0 /100 WBC Normal [facility] Comment on above: Order Comment: Speci men Type: BLOOD SPECIMENOrdering Facility: [facility] Address: [address] [place] [address] Performed By: #### 5 7021-8 ####[facility] LABIA [id number] [place] [address] [place] Platelet mean volume (Bld) [Entitic vol] 11.8 fL Normal 9.0-12.7 [facility] Comment on above: Order Comment: Speci men Type: BLOOD SPECIMENOrdering Facility: [facility] Address: [address] [place] [address] Performed By: #### 5 7021-8 ####[facility] LABIA [id number] [place] [address] [place] Platelets (Bld) [#/Vol] 177 10*3/uL Normal 150-400 [facility] Comment on above: Order Comment: Speci men Type: BLOOD SPECIMENOrdering Facility: [facility] Address: [address] [place] [address] Performed By: #### 5 7021-8 ####[facility] LABIA [id number] [place] [address] [place] RBC (Bld) [#/Vol] 3.88 10*6/uL Low 3.90-5.20 [facility] Comment on above: Order Comment: Speci men Type: BLOOD SPECIMENOrdering Facility: [facility] Address: [address] [place] [address] Performed By: #### 5 7021-8 ####[facility] LABCLIA [id number] [place] [address] [place] WBC (Bld) [#/Vol] 4.63 10*3/uL Normal 3.70-11.00 [facility] Comment on above: Order Comment: Speci men Type: BLOOD SPECIMENOrdering Facility: [facility] Address: [address] [place] [address] Performed By: #### 5 7021-8 ####[facility] LABLALOIA [id number] [facility] [id number] [id number] [facility] [place] 10-31-2023 CNPN Telephone (INTMWS) DARIELSTEVE Wagoner ([id number]) 1945 F Date Time Provider Department 10/31/23 PETER ELLIS INTMWS During your visit today, we recorded the following information about you: Roula Woodall LPN 10/31/2023 11:08 AM Signed Patient here to have labs drawn for OV with PCP on 11/12/23. Waiting down front and can call Julia at ext [phone] to update pt. Last OV 08/25/23 with labs done then. ROSELIA Márquez Rosa, APRN.RADIO ASSEMBLER 10/31/2023 11:20 AM Signed Please let lab [...] BLOOD COUNT AND DIFFERENTIAL [SQCBCDIF] Order #: [id number] FUTURE COMPREHENSIVE METABOLIC PANEL [SQCMP] Order #: [id number] FUTURE THYROID STIMULATING HORMONE [SQTSH] Order #: [id number] FUTURE T3, FREE [SQFREET3] Order #: [id number] FUTURE T4 FREE/FREE THYROXINE [SQFT4] Order #: [id number] FUTURE IRON AND TIBC [SQIRON] Order #: [id number] FUTURE FERRITIN [SQFERR] Order #: [id number] FUTURE HEMOGLOBIN A1C [GAGRM0T] Order #: [id number] FUTURE Prescriptions as of 10/31/2023 - metFORMIN [...] by mouth daily with breakfast. Gets through [employer] PAP. - ferrous sulfate 325 mg [...] Status:Closed by LORAINE JOHNSON on 10/31/23 Normal [facility] Comprehensive metabolic 2000 panelon 10-31-2023 Albumin [Mass/Vol] 4.3 g/dL Normal 3.9-4.9 [facility] Comment on above: Order Comment: Speci men Type: BLOOD SPECIMENOrdering Facility: [facility] Address: [address] [place] [address] Performed By: #### 2 4323-8, 85035-6, 3051-0, 3024-7 ####[facility] LABCLIA [id number] [facility] [id number], [place] [address] [place] ALP [Catalytic activity/Vol] 226 U/L High 34-123 [facility] Comment on above: Order Comment: Speci men Type: BLOOD SPECIMENOrdering Facility: [facility] Address: [address] [place] [address] Performed By: #### 2 4323-8, 51744-1, 3051-0, 3024-7 ####[facility] LABCLIA [id number] [address] [place] ALT [Catalytic activity/Vol] 66 U/L High 7-38 [facility] Comment on above: Order Comment: Speci men Type: BLOOD SPECIMENOrdering Facility: [facility] Address: [address] [place] [address] Performed By: #### 2 4323-8, 40103-9, 3051-0, 302-7 ####[facility] LABCLIA [id number] [place] [address] [place] Anion gap [Moles/Vol] 13 mmol/L Normal 9-18 [facility] Comment on above: Order Comment: Speci men Type: BLOOD SPECIMENOrdering Facility: [facility] Address: [address] [place] [address] Performed By: #### 2 4323-8, 74369-5, 3051-0, 302-7 ####[facility] LABIA [id number] [address] [place] AST [Catalytic activity/Vol] 76 U/L High 13-35 [facility] Comment on above: Order Comment: Speci men Type: BLOOD SPECIMENOrdering Facility: [facility] Address: [address] [place] [address] Performed By: #### 2 4323-8, 63924-0, 3051-0, 3024-7 ####[facility] LABCLIA [id number] [place] [address] [place] Bilirubin [Mass/Vol] 0.5 mg/dL Normal 0.2-1.3 [facility] Comment on above: Order Comment: Speci men Type: BLOOD SPECIMENOrdering Facility: [facility] Address: [address] [place] [address] Performed By: #### 2 4323-8, 90244-5, 3051-0, 3024-7 ####[facility] LABCLIA [id number] [place] [address] [place] Calcium [Mass/Vol] 10.1 mg/dL Normal 8.5-10.2 [facility] Comment on above: Order Comment: Speci men Type: BLOOD SPECIMENOrdering Facility: [facility] Address: [address] [place] [address] Performed By: #### 2 4323-8, 75238-2, 3051-0, 302-7 ####[facility] LABCLIA [id number] [place] [address] [place] Chloride [Moles/Vol] 101 mmol/L Normal 97-105 [facility] Comment on above: Order Comment: Speci men Type: BLOOD SPECIMENOrdering Facility: [facility] Address: [address] [place] [address] Performed By: #### 2 4323-8, 68306-3, 3051-0, 302-7 ####[facility] LABCLIA [id number] [place] [address] [place] CO2 [Moles/Vol] 21 mmol/L Low 22-30 [facility] Comment on above: Order Comment: Speci men Type: BLOOD SPECIMENOrdering Facility: [facility] Address: [address] [place] [address] Performed By: #### 2 4323-8, 41609-7, 3051-0, 302-7 ####[facility] LABCLIA [id number] [facility] [place] [address] [place] Creatinine [Mass/Vol] 0.60 mg/dL Normal 0.58-0.96 [facility] Comment on above: Order Comment: Sudhakar mera Type: BLOOD SPECIMENOrdering Facility: [facility] Address: [address] [place] [address] Performed By: #### 2 4323-8, 47315-9, 3051-0, 3024-7 ####[facility] LABCLIA [id number] [place] [address] [place] Creatinine and Glomerular filtration rate.predicted panel (S/P/Bld) 91 mL/min/1.73m??? Normal >=60 [facility] Comment on above: Order Comment: Sudhakar mera Type: BLOOD SPECIMENOrdering Facility: [facility] Address: [address] [place] [address] Result Comment: Audra mated Glomerular Filtration Rate [...] actual GFR. Performed By: #### 2 4323-8, 85571-9, 3051-0, 3024-7 ####[facility] LABCLIA [id number] [place] [id number] [place] Glucose [Mass/Vol] 479 mg/dL High 74-99 [facility] Comment on above: Order Comment: Sudhakar mera Type: BLOOD SPECIMENOrdering Facility: [facility] Address: [address] [place] [address] Result Comment: The [place] Diabetes Association (ADA) provides guidance for cutoff [...] Standards of Medical Care in Diabetes 2016, [place] Diabetes Association. Diabetes Care. 2016.39(Suppl 1). Performed By: #### 2 4323-8, 19124-3, 3051-0, 3024-7 ####[facility] LABCLIA [id number] [place] [address] [place] Potassium [Moles/Vol] 5.1 mmol/L Normal 3.7-5.1 [facility] Comment on above: Order Comment: Speci men Type: BLOOD SPECIMENOrdering Facility: [facility] Address: [address] [place] [address] Performed By: #### 2 4323-8, 21389-9, 3051-0, 7 ####[facility] LABIA [id number] [place] [address] [place] Protein [Mass/Vol] 7.2 g/dL Normal 6.3-8.0 [facility] Comment on above: Order Comment: Sudhakar mera Type: BLOOD SPECIMENOrdering Facility: [facility] Address: [address] [place] [address] Performed By: #### 2 4323-8, 25453-3, 3051-0, 7 ####[facility] LABCLIA [id number] [place] [id number] [place] Sodium [Moles/Vol] 135 mmol/L Low 136-144 [facility] Comment on above: Order Comment: Dennyi men Type: BLOOD SPECIMENOrdering Facility: [facility] Address: [address] [place] [address] Performed By: #### 2 4323-8, 14927-1, 3051-0, 302-7 ####[facility] LABCLIA [id number] [place] [id number] [place] Urea nitrogen [Mass/Vol] 24 mg/dL High 7-21 [facility] Comment on above: Order Comment: Dennyi samaria Type: BLOOD SPECIMENOrdering Facility: [facility] Address: [address] [place] [address] Performed By: #### 2 4323-8, 30279-1, 3051-0, 3024-7 ####[facility] LABCLIA [id number] [place] [address] [place] Ferritin SerPl-mCncon 2023 Ferritin [Mass/Vol] 33.4 ng/mL Normal 14.7-205.1 [facility] Comment on above: Order Comment: Sudhakar mera Type: BLOOD SPECIMENOrdering Facility: [facility] Address: [address] [place] [address] Performed By: #### 2 276-4, 3016-3 ####[facility] LABIA [id number] [place] [address] [place] HbA1c (Bld)on 10-31-2023 Average glucose Estimated from glycated hemoglobin (Bld) [Mass/Vol] 278 mg/dL Normal [facility] Comment on above: Order Comment: Sudhakar mera Type: BLOOD SPECIMENOrdering Facility: [facility] Address: [address] [place] [address] Result Comment: eAG: (Estimated average glucose) is a calculated value from HgbA1c and is customer engagement representative of the average blood glucose level in the last 2-3 month period. Performed By: #### 5 5454-3 ####[facility] LABCLIA [id number] [place] [address] [place] HbA1c (Bld) [Mass fraction] 11.3 % High 4.3-5.6 [facility] Comment on above: Order Comment: Sudhakar mera Type: BLOOD SPECIMENOrdering Facility: [facility] Address: [address] [place] [address] Result Comment: [place] Diabetes Association guidelines indicate that patients with HgbA1c in the range 5.7-6.4% are at increased risk for development of diabetes, and intervention by lifestyle modification may be beneficial. HgbA1c greater or equal to 6.5% is considered diagnostic of diabetes. Performed By: #### 5 5454-3 ####[facility] LABCLIA [id number] [place] [id number] [place] Iron and Iron binding capaci ty panelon 10-31-2023 Iron [Mass/Vol] 51 ug/dL Normal 41-186 [facility] Comment on above: Order Comment: Speci men Type: BLOOD SPECIMENOrdering Facility: [facility] Address: [address] [place] [address] Performed By: #### 2 4323-8, 96639-6, 305-0, 302-7 ####[facility] [id number] [place] [address] [place] Iron binding capacity [Mass/Vol] 454 ug/dL High 232-386 [facility] Comment on above: Order Comment: Speci men Type: BLOOD SPECIMENOrdering Facility: [facility] Address: [address] [place] [address] Performed By: #### 2 4323-8, 14995-0, 305-0, 302-7 ####[facility] [id number] [place] [address] [place] Iron/TIBC [Molar ratio] 11.2 % Low 15.0-57.0 [facility] Comment on above: Order Comment: Speci men Type: BLOOD SPECIMENOrdering Facility: [facility] Address: [address] [place] [address] Performed By: #### 2 4323-8, 59924-3, 305-0, 302-7 ####[facility]IA [id number] [place] [id number] [place] T3Free SerPl-mCncon 10-31-19 24 Free T3 [Mass/Vol] 2.3 pg/mL Normal 2.3-4.1 [facility] Comment on above: Order Comment: Speci men Type: BLOOD SPECIMENOrdering Facility: [facility] Address: [address] [place] [address] Performed By: #### 2 4323-8, 31296-5, 3051-0, 3024-7 ####[facility] LABCLIA [id number] [place] [address] [place] T4 Free SerPl-mCncon 024 Free T4 [Mass/Vol] 1.1 ng/dL Normal 0.9-1.7 [facility] Comment on above: Order Comment: Speci men Type: BLOOD SPECIMENOrdering Facility: [facility] Address: [address] [place] [address] Performed By: #### 2 4323-8, 46749-5, 3051-0, 3024-7 ####[facility] LABCLIA [id number] [place] [address] [place] TSH SerPl-aCncon 10-31-2023 TSH Qn 3.250 m[IU]/L Normal 0.270-4.200 [facility] Comment on above: Order Comment: Speci men Type: BLOOD SPECIMENOrdering Facility: [facility] Address: [address] [place] [address] Performed By: #### 2 276-4, 3016-3 ####[facility] [id number] [place] [address] [place] CNPJenna 08-27-2023 CNPN Telephone (INTMWS) STEVE VIEIRA ([id number]) 1945 F Date Time Provider Department 08/27/23 [...] may prefer to have this done at [facility] since transportation is an issue. Please see where she would like to do this and if preference is [facility] then fax order. Thanks. Augusto Ross Ma 08/27/2023 12:34 PM Signed Left message to call office. 08/27/2023 12:34 PM Gema Spain Ma 09/01/2023 10:22 AM Signed Both pt and her son notified. Order for US faxed to [facility]. They will call to schedule. Pt need [...] (HCC) [E11.9] Order(s):US ABD RIGHT UPPER QUADRANT [[id number]] Order #: [id number] FUTURE dulaglutide (TRULICITY) 3 mg/0.5 mL pen injectorInject 3 mg subcutaneously one time a week. Gets through [employer] PAP.Disp: 4 EachRfl: 3 Prescriptions as of 09/01/2023 - dulaglutide (TRULICITY) 3 mg/0.5 mL pen injector Inject 3 mg subcutaneously one time a week. Gets through [employer] PAP. - levothyroxine (SYNTHROID) 25 mcg tablet [...] by mouth daily with breakfast. Gets through [employer] PAP. - ferrous sulfate 325 mg (65 [...] subcutaneously one time a week. Gets through [employer] [facility] PAP. Medications Discontinued During This Encounter Prescriptions - insulin lispr (more content not included)... Normal [facility] 25(OH)D3 [facility] 2023 25-hydroxyvitamin D3 [Mass/Vol] 24.4 ng/mL Low 31.0-80.0 [facility] Comment on above: Order Comment: Speci men Type: BLOOD SPECIMENOrdering Facility: [facility] Address: [address] [place] [address] Result Comment: Clas sification of 25 [place] Vitamin D status: Deficiency/Insufficiency: < or = 30 ng/ml. Sufficiency/Optimal Levels: 31-80 ng/mL Toxicity: > 100 ng/mL. Test performed by chemiluminescent immunoassay. Performed By: #### 1 989-3 ####[facility] LABCLIA [id number] [place] [address] [place] CBC W Auto Differential pane l (Bld)on 08-25-2023 Basophils (Bld) [#/Vol] 0.04 10*3/uL Normal <0.11 [facility] Comment on above: Order Comment: Speci men Type: BLOOD SPECIMEN [facility] Address: [address] [place] [address] Performed By: #### 1 989-3 #### [facility] CLIA [id number] [address] [place] [address] [place] Basophils/100 WBC (Bld) 0.7 % Normal [facility] Comment on above: Order Comment: Speci men Type: BLOOD SPECIMEN [facility] Address: [address] [place] [address] Performed By: #### 1 989-3 #### [facility] CLIA [id number] [address] [place] [address] [place] Differential cell count method Nom (Bld) Auto Normal [facility] Comment on above: Order Comment: Speci men Type: BLOOD SPECIMEN [facility] Address: [address] [place] [address] Performed By: #### 1 989-3 #### [facility] CLIA [id number] [address] [place] [address] [place] Eosinophils (Bld) [#/Vol] 0.09 10*3/uL Normal <0.46 [facility] Comment on above: Order Comment: Speci men Type: BLOOD SPECIMEN [facility] Address: [address] [place] [address] Performed By: #### 1 989-3 #### [facility] CLIA [id number] [address] [place] [address] [place] Eosinophils/100 WBC (Bld) 1.7 % Normal [facility] Comment on above: Order Comment: Speci men Type: BLOOD SPECIMEN [facility] Address: [address] [place] [address] Performed By: #### 1 989-3 #### [facility] CLIA [id number] [address] [place] [address] [place] Erythrocyte distribution width (RBC) [Ratio] 20.3 % High 11.5-15.0 [facility] Comment on above: Order Comment: Speci men Type: BLOOD SPECIMEN [facility] Address: [address] [place] [address] Performed By: #### 1 989-3 #### [facility] CLIA [id number] [address] [place] [address] [place] Hematocrit (Bld) [Volume fraction] 36.0 % Normal 36.0-46.0 [facility] Comment on above: Order Comment: Speci men Type: BLOOD SPECIMEN [facility] Address: [address] [place] [address] Performed By: #### 1 989-3 #### [facility] CLIA [id number] [address] [place] [address] [place] Hemoglobin (Bld) [Mass/Vol] 10.4 g/dL Low 11.5-15.5 [facility] Comment on above: Order Comment: Speci men Type: BLOOD SPECIMEN [facility] Address: [address] [place] [address] Performed By: #### 1 989-3 #### [facility] CLIA [id number] [address] [place] [address] [place] Immature granulocytes (Bld) [#/Vol] 0.04 10*3/uL Normal <0.10 [facility] Comment on above: Order Comment: Speci men Type: BLOOD SPECIMEN [facility] Address: [address] [place] [address] Performed By: #### 1 989-3 #### [facility] CLIA [id number] [address] [place] [address] [place] Immature granulocytes/100 WBC (Bld) 0.7 % Normal [facility] Comment on above: Order Comment: Speci men Type: BLOOD SPECIMEN [facility] Address: [address] [place] [address] Performed By: #### 1 989-3 #### [facility] CLIA [id number] [address] [place] [address] [place] Lymphocytes (Bld) [#/Vol] 1.20 10*3/uL Normal 1.00-4.0 0 [facility] Comment on above: Order Comment: Speci men Type: BLOOD SPECIMEN [facility] Address: [address] [place] [address] Performed By: #### 1 989-3 #### [facility] CLIA [id number] [address] [place] [address] [place] Lymphocytes/100 WBC (Bld) 22.4 % Normal [facility] Comment on above: Order Comment: Speci men Type: BLOOD SPECIMEN [facility] Address: [address] [place] [address] Performed By: #### 1 989-3 #### [facility] CLIA [id number] [address] [place] [address] [place] MCH (RBC) [Entitic mass] 25.7 pg Low 26.0-34.0 [facility] Comment on above: Order Comment: Speci men Type: BLOOD SPECIMEN [facility] Address: [address] [place] [address] Performed By: #### 1 989-3 #### [facility] CLIA [id number] [address] [place] [address] [place] MCHC (RBC) [Mass/Vol] 28.9 g/dL Low 30.5-36.0 [facility] Comment on above: Order Comment: Speci men Type: BLOOD SPECIMEN [facility] Address: [address] [place] [address] Performed By: #### 1 989-3 #### [facility] CLIA [id number] [address] [place] [address] [place] MCV (RBC) [Entitic vol] 89.1 fL Normal 80.0-100.0 [facility] Comment on above: Order Comment: Speci men Type: BLOOD SPECIMEN [facility] Address: [address] [place] [address] Performed By: #### 1 989-3 #### [facility] CLIA [id number] [address] [place] [address] [place] Monocytes (Bld) [#/Vol] 0.34 10*3/uL Normal <0.87 [facility] Comment on above: Order Comment: Speci men Type: BLOOD SPECIMEN [facility] Address: [address] [place] [address] Performed By: #### 1 989-3 #### [facility] CLIA [id number] [address] [place] [address] [place] Monocytes/100 WBC (Bld) 6.4 % Normal [facility] Comment on above: Order Comment: Speci men Type: BLOOD SPECIMEN [facility] Address: [address] [place] [address] Performed By: #### 1 989-3 #### [facility] CLIA [id number] [address] [place] [address] [place] Neutrophils (Bld) [#/Vol] 3.64 10*3/uL Normal 1.45-7.5 0 [facility] Comment on above: Order Comment: Speci men Type: BLOOD SPECIMEN [facility] Address: [address] [place] [address] Performed By: #### 1 989-3 #### [facility] CLIA [id number] [address] [place] [address] [place] Neutrophils/100 WBC (Bld) 68.1 % Normal [facility] Comment on above: Order Comment: Speci men Type: BLOOD SPECIMEN [facility] Address: [address] [place] [address] Performed By: #### 1 989-3 #### [facility] CLIA [id number] [address] [place] [address] [place] Nucleated RBC (Bld) [#/Vol] 10*3/uL Normal <0.01 [facility] Comment on above: Order Comment: Speci men Type: BLOOD SPECIMEN [facility] Address: [address] [place] [address] Performed By: #### 1 989-3 #### [facility] CLIA [id number] [address] [place] [address] [place] Nucleated RBC/100 WBC (Bld) [Ratio] 0.0 /100 WBC Normal [facility] Comment on above: Order Comment: Speci men Type: BLOOD SPECIMEN [facility] Address: [address] [place] [address] Performed By: #### 1 989-3 #### [facility] CLIA [id number] [address] [place] [address] [place] Platelet mean volume (Bld) [Entitic vol] 11.1 fL Normal 9.0-12.7 [facility] Comment on above: Order Comment: Speci men Type: BLOOD SPECIMEN [facility] Address: [address] [place] [address] Performed By: #### 1 989-3 #### [facility] CLIA [id number] [address] [place] [address] [place] Platelets (Bld) [#/Vol] 247 10*3/uL Normal 150-400 [facility] Comment on above: Order Comment: Speci men Type: BLOOD SPECIMEN [facility] Address: [address] [place] [address] Performed By: #### 1 989-3 #### [facility] CLIA [id number] [address] [place] [address] [place] RBC (Bld) [#/Vol] 4.04 10*6/uL Normal 3.90-5.20 [facility] Comment on above: Order Comment: Speci men Type: BLOOD SPECIMEN [facility] Address: [address] [place] [address] Performed By: #### 1 989-3 #### [facility] CLIA [id number] [address] [place] [address] [place] WBC (Bld) [#/Vol] 5.35 10*3/uL Normal 3.70-11.00 [facility] Comment on above: Order Comment: Speci men Type: BLOOD SPECIMEN [facility] Address: [address] [place] [address] Performed By: #### 1 989-3 #### [facility] CLIA [id number] [address] [place] [address] [place] CNOVon 08-25-2023 CNOV Office Visit (INTMWS ) STEVE VIEIRA ([id number]) 1945 F Date Time Provider Department 08/25/23 11:40 AM ORIN SOSA INTMWS During your visit today, we recorded the following information about you: Pulse Respiration Blood pressure Weight 97/minute 16/minute 101/65 60.3 kg Orin Sosa APRN.RADIO ASSEMBLER 08/25/2023 12:56 PM Signed SUBJECTIVE Steve Vieira is a 78 year old female here today for a check up on her medical problems. Chief Complaint Patient presents with: [facility] ER follow up - UTI HPI Steve Vieira is a 78 year old female. She is an established patient of Peter Ellis MD. Here today for follow up, she is a poor historian. Recently seen at [facility] on 08/15, records viewed in care everywhere and found she was admitted 08/15 with discharge 08/16 or 08/17. Diagnosis of dehydration, weakness, hyperglycemia, acute UTI and failure to thrive. There is concerns of her living by herself currently and needing to change her current living situation to promote safety. She was discharged to a SN[facility] 08/16 and unclear when she was discharged [...] the SNF. She did have HHC with [facility], SW is involved. APS did come out [...] subcutaneously one time a week. Gets through [employer] PAP. empagliflozin (JARDIANCE) 25 mg tablet Take 1 tablet by mouth daily with breakfast. Gets through [employer] PAP. ferrous sulfate 325 mg (65 mg [...] less dar (more content not included)... Normal [facility] CNPNon 08-25-2023 CNPN Telephone (NAVWST) DARIELSTEVE ([id number]) 1945 F Date Time Provider Department 08/25/23 SHERWIN CHE During your visit today, we recorded the following information about you: Sherwin Che, WASH AND GREASER 08/25/2023 1:20 PM [facility] has made 2 crisis visits. Does not have a single support person in the [facility]. Dog had been removed from patient [...] she has now discharged patient from their [facility] services. Lesli Dong also notes that they are not allowed to accept patient back. LESLI Dong notes son Salomón Lott-Lives in [place] ph. [phone]. Sherwin Che, WASH AND GREASER 08/25/2023 1:32 PM Signed Lesli spoke with Caio Wnag JFS, APS and she notes that if [...] to her son this afternoon. Orin Sosa APRN.RADIO ASSEMBLER 08/25/2023 4:01 PM Signed I called and spoke with patient's son Salomón, we discussed the concerns from her visit today. He voiced agreement that she should not be living on her own. He stated that no POA paperwork has been done because the patient did not want to do the paperwork when he was visiting last summer from [place]. At this point we did agree that [...] Lesli located statement of expert evaluation on [facility] website. Lesli will check with APS and see if [employer] is able to complete evaluation or if Dr. Ellis needs to complete. Sherwin Che, WASH AND GREASER 08/26/2023 10:21 AM Signed Lesli spoke with TREVA Wang and she notes that [employer] are not able to complete expert evaluation [...] I need to contact them? Sherwin Che, WASH AND GREASER 08/29/2023 3:05 PM Signed You could call TREVA Wang ph. [phone] and let her know you have completed and where she would like you to send forms. That way if she has any questions in regards to forms, you would be able to answer them. Orin Sosa APRN.RADIO ASSEMBLER 08/29/2023 3:35 PM Signed Called and spoke with Felipe with [employer] to update, we are sending a copy of the expert evaluation via fax today (send to [phone]) and via mail. Discussed that son, Salomón, is willing to assume guardianship and she will include that with the application for guardianship. Sherwin Che, OSITO 08/29/2023 4:28 PM Signed Is there anything further you would like Sw to assist with regarding this note, or can we close note? Orin Sosa APRN.RADIO ASSEMBLER 08/29/2023 4:30 PM Signed I will close [...] for Visit: Patient Update [1234] Patient Question [2977] Prescriptions as of 08/29/2023 - levothyroxine (SYNTHROID) 25 mcg tablet Take 1 tablet by mouth every Friday,Friday, ay. Take on empty stomach. For thyroid. Add to the levothyroxine 50 mcg once daily dosing but j (more content not included)... Normal [facility] Comprehensive metabolic 2000 panelon 08-25-2023 Albumin [Mass/Vol] 4.0 g/dL Normal 3.9-4.9 [facility] Comment on above: Order Comment: Speci men Type: BLOOD SPECIMENOrdering Facility: [facility] Address: [address] [place] [address] Performed By: #### 3 728-0, 3024-7, 86047-6, 25077-6 ####[facility] LABCLIA [id number] [place] [address] [place] ALP [Catalytic activity/Vol] 334 U/L High 34-123 [facility] Comment on above: Order Comment: Speci men Type: BLOOD SPECIMENOrdering Facility: [facility] Address: [address] [place] [address] Performed By: #### 3 051-0, 3024-7, 95766-2, 51323-3 ####[facility] LABCLIA [id number] [place] [address] [place] ALT [Catalytic activity/Vol] 68 U/L High 7-38 [facility] Comment on above: Order Comment: Speci men Type: BLOOD SPECIMENOrdering Facility: [facility] Address: [address] [place] [address] Performed By: #### 3 051-0, 3024-7, 64571-9, 71091-8 ####[facility] LABCLIA [id number] [place] [address] [place] Anion gap [Moles/Vol] 12 mmol/L Normal 9-18 [facility] Comment on above: Order Comment: Speci men Type: BLOOD SPECIMENOrdering Facility: [facility] Address: [address] [place] [address] Performed By: #### 3 051-0, 3024-7, 70461-1, 47386-4 ####[facility] LABCLIA [id number] [place] [address] [place] AST [Catalytic activity/Vol] 100 U/L High 13-35 [facility] Comment on above: Order Comment: Speci men Type: BLOOD SPECIMENOrdering Facility: [facility] Address: [address] [place] [address] Performed By: #### 3 051-0, 302-7, 74349-8, 06682-5 ####[facility] LABCLIA [id number] [address] [address] [place] Bilirubin [Mass/Vol] 0.6 mg/dL Normal 0.2-1.3 [facility] Comment on above: Order Comment: Speci men Type: BLOOD SPECIMENOrdering Facility: [facility] Address: [address] [place] [address] Performed By: #### 3 051-0, 302-7, 89975-8, 28472-4 ####[facility] LABCLIA [id number] [place] [id number] [place] Calcium [Mass/Vol] 10.0 mg/dL Normal 8.5-10.2 [facility] Comment on above: Order Comment: Speci men Type: BLOOD SPECIMENOrdering Facility: [facility] Address: [address] [place] [address] Performed By: #### 3 051-0, 302-7, 70811-6, 82286-4 ####[facility] [id number] [place] [id number] [place] Chloride [Moles/Vol] 100 mmol/L Normal 97-105 [facility] Comment on above: Order Comment: Speci men Type: BLOOD SPECIMENOrdering Facility: [facility] Address: [address] [place] [address] Performed By: #### 3 051-0, 302-7, 19479-1, 32493-1 ####[facility]CLIA [id number] [place] [id number] [place] CO2 [Moles/Vol] 23 mmol/L Normal 22-30 [facility] Comment on above: Order Comment: Speci men Type: BLOOD SPECIMENOrdering Facility: [facility] Address: [address] [place] [address] Performed By: #### 3 051-0, 3024-7, 57851-1, 08221-3 ####[facility] [id number] [place] [id number] [place] Creatinine [Mass/Vol] 0.59 mg/dL Normal 0.58-0.96 [facility] Comment on above: Order Comment: Speci men Type: BLOOD SPECIMENOrdering Facility: [facility] Address: [address] [place] [address] Performed By: #### 3 051-0, 4-7, 04848-5, 48063-5 ####[facility] [id number] [place] [address] [place] Creatinine and Glomerular filtration rate.predicted panel (S/P/Bld) 91 mL/min/1.73m??? Normal >=60 [facility] Comment on above: Order Comment: Sudhakar mera Type: BLOOD SPECIMENOrdering Facility: [facility] Address: [address] [place] [address] Result Comment: Audra mated Glomerular Filtration Rate [...] GFR. Performed By: #### 3 051-0, 3024-7, 02657-4, 92007-4 ####[facility] [id number] [place] [id number] [place] Glucose [Mass/Vol] 312 mg/dL High 74-99 [facility] Comment on above: Order Comment: Dennyi samaria Type: BLOOD SPECIMENOrdering Facility: [facility] Address: [address] [place] [address] Result Comment: The [place] Diabetes Association (ADA) provides guidance for cutoff [...] Standards of Medical Care in Diabetes 2016, [place] Diabetes Association. Diabetes Care. 2016.39(Suppl 1). Performed By: #### 3 051-0, 3024-7, 52498-8, 48431-6 ####[facility] [id number] [place] [address] [place] Potassium [Moles/Vol] 5.1 mmol/L Normal 3.7-5.1 [facility] Comment on above: Order Comment: Speci men Type: BLOOD SPECIMENOrdering Facility: [facility] Address: [address] [place] [address] Performed By: #### 3 051-0, 3024-7, 61905-0, 18164-1 ####[facility] [id number] [place] [address] [place] Protein [Mass/Vol] 7.3 g/dL Normal 6.3-8.0 [facility] Comment on above: Order Comment: Dennyi samaria Type: BLOOD SPECIMENOrdering Facility: [facility] Address: [address] [place] [address] Performed By: #### 3 051-0, 3024-7, 73552-3, 51061-5 ####[facility] [id number] [place] [id number] [place] Sodium [Moles/Vol] 135 mmol/L Low 136-144 [facility] Comment on above: Order Comment: Speci men Type: BLOOD SPECIMENOrdering Facility: [facility] Address: [address] [place] [address] Performed By: #### 3 051-0, 3024-7, 61451-4, 09656-8 ####[facility]CLIA [id number] [place] [address] [place] Urea nitrogen [Mass/Vol] 23 mg/dL High 7-21 [facility] Comment on above: Order Comment: Speci men Type: BLOOD SPECIMENOrdering Facility: [facility] Address: [address] [place] [address] Performed By: #### 3 051-0, 3024-7, 73117-7, 00269-1 ####[facility]IA [id number] [place] [address] [place] HbA1c (Bld)on 08-25-2023 Average glucose Estimated from glycated hemoglobin (Bld) [Mass/Vol] 266 mg/dL Normal [facility] Comment on above: Order Comment: [facility] Type: BLOOD SPECIMENOrdering Facility: [facility] Address: [address] [place] [address] Result Comment: eAG: (Estimated average glucose) is a calculated value from HgbA1c and is customer engagement representative of the average blood glucose level in the last 2-3 month period. Performed By: #### 5 5454-3 ####[facility] LABCLIA [id number] [place] [address] [place] HbA1c (Bld) [Mass fraction] 10.9 % High 4.3-5.6 [facility] Comment on above: Order Comment: [facility] Type: BLOOD SPECIMENOrdering Facility: [facility] Address: [address] [place] [address] Result Comment: [place] Diabetes Association guidelines indicate that patients with HgbA1c in the range 5.7-6.4% are at increased risk for development of diabetes, and intervention by lifestyle modification may be beneficial. HgbA1c greater or equal to 6.5% is considered diagnostic of diabetes. Performed By: #### 5 5454-3 ####[facility] LABCLIA [id number] [address] [address] [place] Iron and Iron binding capaci ty panelon 08-25-2023 Iron [Mass/Vol] 118 ug/dL Normal 41-186 [facility] Comment on above: Order Comment: Speci men Type: BLOOD SPECIMENOrdering Facility: [facility] Address: [address] [place] [address] Performed By: #### 3 051-0, 3024-7, 87686-3, 17671-0 ####[facility] LABCLIA [id number] [place] [address] [place] Iron binding capacity [Mass/Vol] 427 ug/dL High 232-386 [facility] Comment on above: Order Comment: Speci men Type: BLOOD SPECIMENOrdering Facility: [facility] Address: [address] [place] [address] Performed By: #### 3 051-0, 3024-7, 50978-9, 57748-9 ####[facility] LABIA [id number] [place] [address] [place] Iron/TIBC [Molar ratio] 27.6 % Normal 15.0-57.0 [facility] Comment on above: Order Comment: Speci men Type: BLOOD SPECIMENOrdering Facility: [facility] Address: [address] [place] [address] Performed By: #### 3 051-0, 3024-7, 02320-4, 33071-1 ####[facility] LABIA [id number] [place] [id number] [place] Magnesium SerPl-mCncon 08-25 Magnesium [Mass/Vol] 2.1 mg/dL Normal 1.7-2.3 [facility] Comment on above: Order Comment: Speci men Type: BLOOD SPECIMENOrdering Facility: [facility] Address: [address] [place] [address] Performed By: #### 2 132-9, 3016-3, 98836-6 ####[facility] LABCLIA [id number] [place] [id number] [place] T3Free SerPl-mCncon 08-25-19 24 Free T3 [Mass/Vol] 2.7 pg/mL Normal 2.3-4.1 [facility] Comment on above: Order Comment: Speci men Type: BLOOD SPECIMENOrdering Facility: [facility] Address: [address] [place] [address] Performed By: #### 3 051-0, 3024-7, 50807-2, 90794-0 ####[facility] LABIA [id number] [place] [address] [place] T4 Free SerPl-mCncon 024 Free T4 [Mass/Vol] 1.1 ng/dL Normal 0.9-1.7 [facility] Comment on above: Order Comment: Speci men Type: BLOOD SPECIMENOrdering Facility: [facility] Address: [address] [place] [address] Performed By: #### 3 051-0, 3024-7, 01419-9, 08991-4 ####[facility] LABIA [id number] [place] [address] [place] TSH SerPl-aCncon 08-25-2023 TSH Qn 4.540 m[IU]/L High 0.270-4.200 [facility] Comment on above: Order Comment: Speci men Type: BLOOD SPECIMENOrdering Facility: [facility] Address: [address] [place] [address] Performed By: #### 2 132-9, 3016-3, ####[facility] LABIA [id number] [place] [address] [place] Vit B12 SerPl-mCncon 024 Cobalamin (Vitamin B12) [Mass/Vol] 456 pg/mL Normal 232-1245 [facility] Comment on above: Order Comment: Speci men Type: BLOOD SPECIMENOrdering Facility: [facility] Address: [address] [place] [address] Performed By: #### 2 132-9, 3016-3, 27158-7 ####[facility] LABCLIA [id number] [place] [id number] [address] [place] Thin prep Papanicolaou smear with manual screeningOrdered By: Carl Couch on 08-16-2023 Thin prep Papanicolaou smear with manual screening 361 mg/dL 74-106 [facility] Comment on above: MANAGEMENT OF PATIEN T CARE PER NURSING PROTOCOL Absolute lymphocyte countOrd ered By: Mitzy Perez on 08-15-2023 Lymphocytes Auto (Unsp spec) [#/Vol] 0.83 10*3/uL 0.83-4.51 [facility] Automated lymphocyte count a s percentage of total leukocytesOrdered By: Mitzy Perez on 08-15-2023 Lymphocytes/100 WBC Auto (Unsp spec) 18.4 % 19-41 [facility] Basophil percentageOrdered B y: Mitzy Perez on 08-15-2023 Basophil percentage 2.6 mg/dL 2.5-4.9 [facility] Basophils/100 WBC (Bld) 0.7 % 0-1 [facility] Bilirubin [Mass/Vol] 0.70 mg/dL 0.20-1.00 [place] Comment on above: For patients on eltr ombopag therapy, use of Dimension [place] TBIL is not recommended. Chloride [Moles/Vol] 102 mmol/L 98-107 [place] Eosinophils/100 WBC (Bld) 1.5 % 0-5 [facility] Glucose [Mass/Vol] 344 mg/dL 74-106 [facility] Comment on above: Glucose result great er than or equal to 200 mg/dLsuggests DIABETES MELLITUS per A.D.A. criteria. Hemoglobin (Bld) [Mass/Vol] 9.6 g/dL 12.0-15.0 [facility] Monocytes/100 WBC (Bld) 6.9 % 0-10 [facility] Neutrophils (Bld) [#/Vol] 3.2 10*3/uL 2.0-7.7 [facility] Neutrophils/100 WBC (Bld) 71.6 % 47-70 [facility] Potassium [Moles/Vol] 3.7 mmol/L 3.5-5.1 [facility] Protein [Mass/Vol] 6.2 g/dL 6.4-8.2 [facility] Sodium [Moles/Vol] 134 mmol/L 136-145 [facility] WBC (Bld) [#/Vol] 4.5 10*3/uL 4.4-11.0 [facility] Basophil percentageOrdered B y: Lola Marquez on 08-15-2023 Chloride [Moles/Vol] 101 mmol/L 98-107 [place] Glucose [Mass/Vol] 681 mg/dL 74-106 [facility] Comment on above: Critical Result(s) C alled at: 00:43:24 08/15/2023 by: Debra Sutton. Results read back by same.Glucose result greater than or equal to 200 mg/dLsuggests DIABETES MELLITUS per A.D.A. criteria. Potassium [Moles/Vol] 4.6 mmol/L 3.5-5.1 [facility] Sodium [Moles/Vol] 135 mmol/L 136-145 [facility] Determination of erythrocyte mean corpuscular volume (MCV)Ordered By: Mitzy Perez on 08-15-2023 MCV (RBC) [Entitic vol] 84.0 fL 81-99 [facility] Erythrocyte distribution wid th ratioOrdered By: Mitzy Perez on 08-15-2023 Erythrocyte distribution width (RBC) [Ratio] 19.0 % 11.6-14.6 [facility] Erythrocyte distribution wid th standard deviationOrdered By: Mitzy Perez on 08-15-2023 Erythrocyte distribution width (RBC) [Entitic vol] 57.0 fL 35.1-43.9 [facility] Hematocrit Auto (Bld) [Volum e fraction]Ordered By: Mitzy Perez on 08-15-2023 Hematocrit (Bld) [Volume fraction] 31.6 % 37-47 [facility] Immature granulocytes/100 WB C Auto (Bld)Ordered By: Mitzy Perez on 08-15-2023 Immature granulocytes/100 WBC (Bld) 0.900 % 0.0-0.9 [facility] Comment on above: IG% - Immature Granu locytes (promyelocytes, myelocytes and metamyelocytes) > 1% indicates that a LEFT SHIFT is Present. Laboratory - Chemistry and C hemistry - challengeOrdered By: Mitzy Perez on 08-15-2023 Albumin/Globulin [Mass ratio] 0.7 {ratio} 0.9-2.4 [facility] ALP [Catalytic activity/Vol] 273 U/L 45-117 [facility] ALT [Catalytic activity/Vol] 91 U/L 13-56 [facility] CO2 [Moles/Vol] 28.0 mmol/L 21.0-32.0 [facility] Globulin (S) [Mass/Vol] 3.6 g/dL 2.2-4.2 [facility] Magnesium [Mass/Vol] 1.9 mg/dL 1.6-2.6 [place] Urea nitrogen/Creatinine [Mass ratio] 31.3 mg/mg 10- [facility] Laboratory - Chemistry and C hemistry - challengeOrdered By: Lola Marquez on 08-15-2023 CO2 [Moles/Vol] 27.0 mmol/L 21.0-32.0 [facility] Urea nitrogen/Creatinine [Mass ratio] 27.0 mg/mg 10- [facility] Laboratory - Hematology and Cell countsOrdered By: Mitzy Perez on 08-15-2023 MCH (RBC) [Entitic mass] 25.5 pg 27.0-32.0 [facility] MCHC (RBC) [Mass/Vol] 30.4 g/dL 32-36 [facility] Nucleated RBC/100 WBC (Bld) [Ratio] 0 % 0-5 [facility] Platelet mean volume (Bld) [Entitic vol] 11.7 fL 6.2-12.0 [facility] Platelets (Bld) [#/Vol] 144 10*3/uL 150-450 [facility] No Panel InformationOrdered By: Mitzy Perez on 08-15-2023 Estimated Creatinine Clearance Calc 46.31 ml/min [facility] Estimated GFR (MDRD) Amer 103 mL/min >60 [facility] Comment on above: GFR Calc Estimated GFR (MDRD) Non-Af Amer 85 mL/min >60 [facility] Comment on above: Non- GFR Calc No Panel InformationOrdered By: Lola Marquez on 08-15-2023 Estimated Creatinine Clearance Calc 42.48 ml/min [facility] Estimated GFR (MDRD) Amer 79 mL/min >60 [facility] Comment on above: GFR Calc Estimated GFR (MDRD) Non-Af Amer 65 mL/min >60 [facility] Comment on above: Non- GFR Calc Troponin I High Sensitivity 8 pg/mL 3.0-54.0 [facility] Comment on above: Please Note: New Bee t Units and Gender Specific Reference Ranges. For more information see Policy Stat Procedure [place] High Sensitivity Troponin (TNIH) and attachments. RBC Auto (Bld) [#/Vol]Ordere d By: Mitzy Perez on 08-15-2023 RBC (Bld) [#/Vol] 3.76 10*6/uL 4.2-5.4 [facility] Serum or plasma calcium sonu urement (mass/volume)Ordered By: Mitzy Perez on 08-15-2023 Calcium [Mass/Vol] 8.9 mg/dL 8.5-10.1 [facility] Serum or plasma calcium sonu urement (mass/volume)Ordered By: Lola Marquez on 08-15-2023 Calcium [Mass/Vol] 10.1 mg/dL 8.5-10.1 [facility] Serum or plasma creatinine m easurement (mass/volume)Ordered By: Mitzy Perez on 08-15-2023 Creatinine [Mass/Vol] 0.70 mg/dL 0.55-1.02 [facility] Comment on above: The validity of the calculated GFR & GFRAA in patients over 70 years has not been determined. Clinical correlation is essential. Serum or plasma creatinine m easurement (mass/volume)Ordered By: Lola Marquez on 08-15-2023 Creatinine [Mass/Vol] 0.89 mg/dL 0.55-1.02 [facility] Comment on above: The validity of the calculated GFR & GFRAA in patients over 70 years has not been determined. Clinical correlation is essential. Serum or plasma thyroid stim ulating hormone (TSH) measurement (units/volume)Ordered By: Mitzy Perez on 08-15-2023 TSH Qn 4.32 uIU/mL 0.358-3.74 [facility] Serum or plasma urea nitroge n measurement (mass/volume)Ordered By: Mitzy Perez on 08-15-2023 Urea nitrogen [Mass/Vol] 22 mg/dL 01-14 [facility] Serum or plasma urea nitroge n measurement (mass/volume)Ordered By: Lola Marquez on 08-15-2023 Urea nitrogen [Mass/Vol] 24 mg/dL - [facility] Thin prep Papanicolaou smear with manual screeningOrdered By: Mitzy Perez on 08-15-2023 Thin prep Papanicolaou smear with manual screening 2.6 g/dL 3.2-5.0 [facility] Thin prep Papanicolaou smear with manual screening 102 U/L 15-37 [facility] Thin prep Papanicolaou smear with manual screening 4 11-11 [facility] Thin prep Papanicolaou smear with manual screening > 500 mg/dL 74-106 [facility] Comment on above: Dr Earle ZAVALA OF PATIENT CARE PER NURSING PROTOCOL Thin prep Papanicolaou smear with manual screeningOrdered By: Lola Marquez on 08-15-2023 Thin prep Papanicolaou smear with manual screening 7 - [facility] Whole blood hemoglobin A1c/t otal hemoglobin ratio (mass fraction)Ordered By: Carl Couch on 08-15-2023 HbA1c (Bld) [Mass fraction] 11.7 % 3.8-5.6 [facility] Comment on above: Normal < 5.7 % Predi abetic 5.7 - 6.4 % Diabetic >or= 6.5 % Please note range changes. Absolute lymphocyte countOrd ered By: Lola Marquez on 08-14-2023 Lymphocytes Auto (Unsp spec) [#/Vol] 0.75 10*3/uL 0.83-4.51 [facility] Automated lymphocyte count a s percentage of total leukocytesOrdered By: Lola Marquez on 08-14-2023 Lymphocytes/100 WBC Auto (Unsp spec) 17.4 % 19-41 [facility] Basophil percentageOrdered B y: Lola Marquez on 08-14-2023 Basophil percentage 25-50 SEEN /hpf 0-5 [facility] Basophils/100 WBC (Bld) 0.5 % 0-1 [facility] Eosinophils/100 WBC (Bld) 1.4 % 0-5 [facility] Hemoglobin (Bld) [Mass/Vol] 10.7 g/dL 12.0-15.0 [facility] Monocytes/100 WBC (Bld) 10.7 % 0-10 [facility] Neutrophils (Bld) [#/Vol] 3.0 10*3/uL 2.0-7.7 [facility] Neutrophils/100 WBC (Bld) 69.3 % 47-70 [facility] WBC (Bld) [#/Vol] 4.3 10*3/uL 4.4-11.0 [facility] Bilirubin Test strip Ql (U)O rdered By: Lola Marquez on 08-14-2023 Bilirubin Ql (U) Negative Negative [facility] CNPNon 08-14-2023 CNPN Telephone (INTMWS) STEVE VIEIRA ([id number]) 1945 F Date Time Provider Department 08/14/23 PETER ELLIS INTMWS During your visit today, we recorded the following information about you: Melina Keys, RN 08/14/2023 12:13 PM Signed Letitia BALLESTEROS from [facility] calls and states that she was out to see patient today for 3 hours. Letitia reports that patient is not safe to at home but is refusing to go to penitentiary. Letitia reports that living conditions are unlivable. [...] Please review and advise, SHANNON Eric Terri, TIERRA.BUSINESS SUPPORT 08/14/2023 3:00 PM Signed OK for SW. If she currently ill and needing to return to the hospital? If so recommend, may be able to transition to SNF from hospital. Sharon Mayer RN 08/14/2023 3:24 PM Signed Letitia BALLESTEROS from [facility] called and is notified of providers [...] Status:Closed by SHARON MAYER on 08/14/23 Normal [facility] Culture, urineOrdered By: Ginger Marquez on 08-14-2023 Bacteria identified Cx Nom (U) Klebsiella pneumoniae sp pneum [facility] Determination of erythrocyte mean corpuscular volume (MCV)Ordered By: Lola Marquez on 08-14-2023 MCV (RBC) [Entitic vol] 84.2 fL 81-99 [facility] Erythrocyte distribution wid th ratioOrdered By: Lola Marquez on 08-14-2023 Erythrocyte distribution width (RBC) [Ratio] 19.8 % 11.6-14.6 [facility] Erythrocyte distribution wid th standard deviationOrdered By: Lola Marquez on 08-14-2023 Erythrocyte distribution width (RBC) [Entitic vol] 58.6 fL 35.1-43.9 [facility] Hematocrit Auto (Bld) [Volum e fraction]Ordered By: Lola Marquez on 08-14-2023 Hematocrit (Bld) [Volume fraction] 36.9 % 37-47 [facility] Immature granulocytes/100 WB C Auto (Bld)Ordered By: Lola Marquez on 08-14-2023 Immature granulocytes/100 WBC (Bld) 0.700 % 0.0-0.9 [facility] Comment on above: IG% - Immature Granu locytes (promyelocytes, myelocytes and metamyelocytes) > 1% indicates that a LEFT SHIFT is Present. Ketones Test strip Ql (U)Ord ered By: Lola Marquez on 08-14-2023 Ketones Ql (U) 5 mg/dl Negative [facility] Laboratory - Hematology and Cell countsOrdered By: Lola Marquez on 08-14-2023 MCH (RBC) [Entitic mass] 24.4 pg 27.0-32.0 [facility] MCHC (RBC) [Mass/Vol] 29.0 g/dL 32-36 [facility] Comment on above: Delta: 27.5 on 08/11-0518 Nucleated RBC/100 WBC (Bld) [Ratio] 0 % 0-5 [facility] Platelet mean volume (Bld) [Entitic vol] 11.7 fL 6.2-12.0 [facility] Platelets (Bld) [#/Vol] 135 10*3/uL 150-450 [facility] Mucus LM Ql (Urine sed)Order ed By: Lola Marquez on 08-14-2023 Mucus Ql (Urine sed) 0 SEEN /hpf [facility] Nitrite Test strip Ql (U)Ord ered By: Lola Marquez on 08-14-2023 Nitrite Ql (U) Negative Negative [facility] No Panel InformationOrdered By: Lola Marquez on 08-14-2023 Urine RBC 5-10 SEEN /hpf 0-5 [facility] Protein Test strip Ql (U)Ord ered By: Lola Marquez on 08-14-2023 Protein Ql (U) Negative Negative [facility] RBC Auto (Bld) [#/Vol]Ordere d By: Lola Marquez on 08-14-2023 RBC (Bld) [#/Vol] 4.38 10*6/uL 4.2-5.4 [facility] Squamous epithelial cells de tection in urine sediment by light microscopyOrdered By: Lola Marquez on 08-14-2023 Epithelial cells.squamous LM Ql (Urine sed) 0 SEEN /hpf 5-10 [facility] Transitional cells detection in urine sediment by light microscopyOrdered By: Lola Marquez on 08-14-2023 Transitional cells LM Ql (Urine sed) 0 SEEN /hpf 0-5 [facility] Urine blood detectionOrdered By: Lola Marquez on 08-14-2023 RBC Ql (U) 250 /ul Negative [facility] Urine clarityOrdered By: Lesa Marquez on 08-14-2023 Clarity (U) Sl. Cloudy Clear [facility] Urine color determinationOrd ered By: Lola Marquez on 08-14-2023 Color (U) Yellow Yellow [facility] Urine glucose detectionOrder ed By: Lola Marquez on 08-14-2023 Glucose Ql (U) 1000 mg/dl Normal [facility] Urine leukocyte esterase det ection by dipstickOrdered By: Lola Marquez on 08-14-2023 Leukocyte esterase Test strip Ql (U) 100 /ul Negative [facility] Urine pHOrdered By: Lola sneed on 08-14-2023 pH (U) 7.0 [pH] 5.0 - 8.0 [facility] Urine sediment bacteria coun t by microscopy (number/high power field)Ordered By: Lola Marquez on 08-14-2023 Bacteria LM.HPF (Urine sed) [#/Area] 1 /[HPF] None Seen [facility] Urine sediment renal epithel ial cell count by microscopy (number/high power field)Ordered By: Lola Marquez on 08-14-2023 Epithelial cells.renal LM.HPF (Urine sed) [#/Area] 0 /[HPF] 0-5 [facility] Urine specific gravity measu rementOrdered By: Lola Marquez on 08-14-2023 Specific gravity (U) [Rel density] 1.010 1.002-1.030 [facility] Urine urobilinogen measureme ntOrdered By: Lola Marquez on 08-14-2023 Urobilinogen Ql (U) Normal mg/dl Normal [facility] CNPNon 08-13-2023 CNP Telephone (INTMWS) STEVE VIEIRA ([id number]) 1945 F Date Time Provider Department 08/13/23 PETER ELLIS INTWS During your visit today, we recorded the following information about you: Rich Richmond LPN 08/13/2023 3:19 PM Signed Cristin with [facility] calling to let you know [...] hospital FU apt booked. ROSELIA Govea Terri, APRN.BUSINESS SUPPORT 08/14/2023 9:36 AM Signed [facility] for home health care. She should follow medication orders from discharge of the hospital, aspirin does appear to be on the discharge medication orders. Why is home health care asking about 81 mg aspirin? Please schedule hospital discharge follow-up visit Marimar Shields LPN 08/14/2023 10:41 AM Signed Attempted to contact Cristin [facility] but no answer. Left providers [...] LPN - Fully Assessed Reason for Visit: [facility], verbal order [Other] Prescriptions as of 08/15/2023 [...] by mouth daily with breakfast. Gets through [employer] PAP. - ferrous sulfate 325 mg [...] Status:Closed by RICH RICHMOND on 08/15/23 [facility] Basophil percentageOrdered B y: Wes Alva on 08-12-2023 Hemoglobin (Bld) [Mass/Vol] 9.9 g/dL 12.0-15.0 [facility] Hematocrit Auto (Bld) [Volum e fraction]Ordered By: Wes Alva on 08-12-2023 Hematocrit (Bld) [Volume fraction] 33.7 % 37-47 [facility] Thin prep Papanicolaou smear with manual screeningOrdered By: Wes Alva on 08-12-2023 Thin prep Papanicolaou smear with manual screening 312 mg/dL 74-106 [facility] Comment on above: MANAGEMENT OF PATIEN T CARE PER NURSING PROTOCOL Absolute lymphocyte countOrd ered By: Mitzy Strauss on 08-11-2023 Lymphocytes Auto (Unsp spec) [#/Vol] 0.99 10*3/uL 0.83-4.51 [facility] Automated lymphocyte count a s percentage of total leukocytesOrdered By: Mitzy Strauss on 08-11-2023 Lymphocytes/100 WBC Auto (Unsp spec) 20.9 % 19-41 [facility] Basophil percentageOrdered B y: Mitzy Strauss on 08-11-2023 Basophils/100 WBC (Bld) 0.4 % 0-1 [facility] Chloride [Moles/Vol] 109 mmol/L 98-107 [place] Eosinophils/100 WBC (Bld) 1.7 % 0-5 [facility] Glucose [Mass/Vol] 269 mg/dL 74-106 [facility] Comment on above: Glucose result great er than or equal to 200 mg/dLsuggests DIABETES MELLITUS per A.D.A. criteria. Monocytes/100 WBC (Bld) 8.9 % 0-10 [facility] Neutrophils (Bld) [#/Vol] 3.2 10*3/uL 2.0-7.7 [facility] Neutrophils/100 WBC (Bld) 66.6 % 47-70 [facility] Potassium [Moles/Vol] 3.6 mmol/L 3.5-5.1 [facility] Sodium [Moles/Vol] 139 mmol/L 136-145 [facility] WBC (Bld) [#/Vol] 4.7 10*3/uL 4.4-11.0 [facility] 08-11-2023 [place] Telephone (FAMPWS) DARIELSTEVE ([id number]) 1945 F Date Time Provider Department 08/11/23 PETER ELLIS [facility] During your visit today, we recorded the following information about you: Alta Ortiz LPN 08/11/2023 12:51 PM Signed Liberty with [facility] calls to report pt is going to be discharged from [facility] today with orders for Nursing, PT, and [...] subcutaneously one time a week. Gets through [employer] PAP. - empagliflozin (JARDIANCE) 25 mg tablet Take 1 tablet by mouth daily with breakfast. Gets through [employer] PAP. - ferrous sulfate 325 mg (65 [...] by YESENIA YARBROUGH CMA on 08/12/23 Normal [facility] Determination of erythrocyte mean corpuscular volume (MCV)Ordered By: Mitzy Strauss on 08-11-2023 MCV (RBC) [Entitic vol] 82.3 fL 81-99 [facility] Erythrocyte distribution wid th ratioOrdered By: Mitzy Strauss on 08-11-2023 Erythrocyte distribution width (RBC) [Ratio] 18.8 % 11.6-14.6 [facility] Erythrocyte distribution wid th standard deviationOrdered By: Mitzy Strauss on 08-11-2023 Erythrocyte distribution width (RBC) [Entitic vol] 53.3 fL 35.1-43.9 [facility] Immature granulocytes/100 WB C Auto (Bld)Ordered By: Mitzy Strauss on 08-11-2023 Immature granulocytes/100 WBC (Bld) 1.500 % 0.0-0.9 [facility] Comment on above: IG% - Immature Granu locytes (promyelocytes, myelocytes and metamyelocytes) > 1% indicates that a LEFT SHIFT is Present. Laboratory - Chemistry and C hemistry - challengeOrdered By: Mitzy Strauss on 08-11-2023 CO2 [Moles/Vol] 24.0 mmol/L 21.0-32.0 [facility] Cobalamin (Vitamin B12) [Mass/Vol] 329 pg/mL 211-911 [facility] Urea nitrogen/Creatinine [Mass ratio] 26.6 mg/mg 10-20 [facility] Laboratory - Hematology and Cell countsOrdered By: Mitzy Strauss on 08-11-2023 MCH (RBC) [Entitic mass] 22.7 pg 27.0-32.0 [facility] MCHC (RBC) [Mass/Vol] 27.5 g/dL 32-36 [facility] Nucleated RBC/100 WBC (Bld) [Ratio] 0 % 0-5 [facility] Platelet mean volume (Bld) [Entitic vol] 11.5 fL 6.2-12.0 [facility] Platelets (Bld) [#/Vol] 161 10*3/uL 150-450 [facility] No Panel InformationOrdered By: Mitzy Strauss on 08-11-2023 Estimated Creatinine Clearance Calc 45.06 ml/min [facility] Estimated GFR (MDRD) Amer 123 mL/min >60 [facility] Comment on above: GFR Calc Estimated GFR (MDRD) Non-Af Amer 102 mL/min >60 [facility] Comment on above: Non- GFR Calc RBC Auto (Bld) [#/Vol]Ordere d By: Mitzy Strauss on 08-11-2023 RBC (Bld) [#/Vol] 3.00 10*6/uL 4.2-5.4 [facility] Serum or plasma calcium sonu urement (mass/volume)Ordered By: Mitzy Strauss on 08-11-2023 Calcium [Mass/Vol] 8.2 mg/dL 8.5-10.1 [facility] Serum or plasma creatinine m easurement (mass/volume)Ordered By: Mitzy Strauss on 08-11-2023 Creatinine [Mass/Vol] 0.60 mg/dL 0.55-1.02 [facility] Comment on above: The validity of the calculated GFR & GFRAA in patients over 70 years has not been determined. Clinical correlation is essential. Serum or plasma urea nitroge n measurement (mass/volume)Ordered By: Mitzy Strauss on 08-11-2023 Urea nitrogen [Mass/Vol] 16 mg/dL 7-18 [facility] Thin prep Papanicolaou smear with manual screeningOrdered By: Mitzy Strauss on 08-11-2023 Thin prep Papanicolaou smear with manual screening 6 5-15 [facility] Basophil percentageOrdered B y: Mitzy Strauss on 08-10-2023 Basophil percentage 2.6 mg/dL 2.5-4.9 [facility] Hemoglobin in reticulocytes (mass per reticulocyte)Ordered By: Mitzy Strauss on 08-10-2023 Hemoglobin (Reticulocytes) [Entitic mass] 26.1 pg 30-35 [facility] Iron measurement (mass/mass) Ordered By: Mitzy Strauss on 08-10-2023 Iron (Unsp spec) [Mass/Mass] 25 ug/dL 50-170 [facility] Laboratory - Chemistry and C hemistry - challengeOrdered By: Mitzy Strauss on 08-10-2023 Ferritin [Mass/Vol] 20 ng/mL 8-252 [facility] Magnesium [Mass/Vol] 2.2 mg/dL 1.6-2.6 [place] No Panel InformationOrdered By: Mitzy Strauss on 08-10-2023 Immature Reticulocyte Fraction 35.70 % 3.00-15.90 [facility] Total Iron Binding Capacity 368 ug/dL 250-450 [facility] Reticulocytes Auto (Bld) [#/ Vol]Ordered By: Mitzy Strauss on 08-10-2023 Reticulocytes/100 RBC (Bld) 3.32 % 0.5-1.5 [facility] Serum or plasma iron saturat ion measurement (mass fraction)Ordered By: Mitzy Strauss on 08-10-2023 Iron saturation [Mass fraction] 6.8 % 15.0-55.0 [facility] Basophil percentageOrdered B y: Clayton Abreu on 08-09-2023 Basophil percentage 0 SEEN /hpf 0-5 [place] Bilirubin [Mass/Vol] 0.90 mg/dL 0.20-1.00 [place] Comment on above: For patients on eltr ombopag therapy, use of Dimension [place] TBIL is not recommended. Protein [Mass/Vol] 7.4 g/dL 6.4-8.2 [facility] Bilirubin Test strip Ql (U)O rdered By: Clayton Abreu on 08-09-2023 Bilirubin Ql (U) Negative Negative [facility] Ketones Test strip Ql (U)Ord ered By: Clayton Abreu on 08-09-2023 Ketones Ql (U) 150 mg/dl Negative [facility] Comment on above: CRITICAL VALUE *HCRI TICAL VALUE VERIFIED. CALLED TO АЛЕКСАНДР RDSNAZA68/10/24 1258 Lena Crouch.RESULTS READ BACK BY SAME . Laboratory - Chemistry and C hemistry - challengeOrdered By: Clayton Abreu on 08-09-2023 Albumin/Globulin [Mass ratio] 0.8 {ratio} 0.9-2.4 [facility] ALP [Catalytic activity/Vol] 186 U/L 45-117 [facility] ALT [Catalytic activity/Vol] 42 U/L 13-56 [facility] CK [Catalytic activity/Vol] 42 U/L 26-192 [facility] Globulin (S) [Mass/Vol] 4.1 g/dL 2.2-4.2 [facility] - Microbiology an d Antimicrobial susceptibilityOrdered By: Clayton Abreu on 08-09-2023 SARS-CoV-2 (COVID-19) RNA LUBA+probe Ql (Unsp spec) [facility] Mucus LM Ql (Urine sed)Order ed By: Clayton Abreu on 08-09-2023 Mucus Ql (Urine sed) 0 SEEN /hpf [facility] Nitrite Test strip Ql (U)Ord ered By: Clayton Abreu on 08-09-2023 Nitrite Ql (U) Negative Negative [facility] No Panel InformationOrdered By: Clayton Abreu on 08-09-2023 Urine RBC 0 SEEN /hpf 0-5 [facility] Protein Test strip Ql (U)Ord ered By: Clayton Abreu on 08-09-2023 Protein Ql (U) 15 mg/dl Negative [facility] Serum or plasma thyroid stim ulating hormone (TSH) measurement (units/volume)Ordered By: Clayton Abreu on 08-09-2023 TSH Qn 4.30 uIU/mL 0.358-3.74 [facility] Squamous epithelial cells de tection in urine sediment by light microscopyOrdered By: Clayton Abreu on 08-09-2023 Epithelial cells.squamous LM Ql (Urine sed) 0 SEEN /hpf 5-10 [facility] Thin prep Papanicolaou smear with manual screeningOrdered By: Clayton Abreu on 08-09-2023 Thin prep Papanicolaou smear with manual screening 3.3 g/dL 3.2-5.0 [facility] Thin prep Papanicolaou smear with manual screening 53 U/L 15-37 [facility] Urine blood detectionOrdered By: Clayton Abreu on 08-09-2023 RBC Ql (U) 10 /ul Negative [facility] Urine clarityOrdered By: Apolonia Abreu on 08-09-2023 Clarity (U) Clear Clear [facility] Urine color determinationOrd ered By: Clayton Abreu on 08-09-2023 Color (U) Yellow Yellow [facility] Urine glucose detectionOrder ed By: Clayton Abreu on 08-09-2023 Glucose Ql (U) 1000 mg/dl Normal [facility] Urine leukocyte esterase det ection by dipstickOrdered By: Clayton Abreu on 08-09-2023 Leukocyte esterase Test strip Ql (U) Negative Negative [facility] Urine pHOrdered By: Clayton angel on 08-09-2023 pH (U) 5.0 [pH] 5.0 - 8.0 [facility] Urine sediment bacteria coun t by microscopy (number/high power field)Ordered By: Clayton Abreu on 08-09-2023 Bacteria LM.HPF (Urine sed) [#/Area] 0 /[HPF] None Seen [facility] Urine specific gravity measu rementOrdered By: Clayton Abreu on 08-09-2023 Specific gravity (U) [Rel density] 1.015 1.002-1.030 [facility] Urine urobilinogen measureme ntOrdered By: Clayton Abreu on 08-09-2023 Urobilinogen Ql (U) Normal mg/dl Normal [facility] 25(OH)D3 SerPl-mCncon 2023 25-hydroxyvitamin D3 [Mass/Vol] 7.1 ng/mL Low 31.0-80.0 [facility] Comment on above: Order Comment: Speci men Type: BLOOD SPECIMEN Ordering Facility: [facility] Address: [facility] [address] Result Comment: Clas sification of 25 [place] Vitamin D status: Deficiency/Insufficiency: < or = 30 ng/ml. Sufficiency/Optimal Levels: 31-80 ng/mL Toxicity: > 100 ng/mL. Test performed by chemiluminescent immunoassay. Performed By: #### 1 989-3 #### [facility] CLIA [id number] [address] [place] [address] [place] CBC panel Auto (Bld)on 07-04 Erythrocyte distribution width (RBC) [Ratio] 15.9 % High 11.5-15.0 [facility] Comment on above: Order Comment: Speci men Type: BLOOD SPECIMEN Ordering Facility: [facility] Address: [address] [place] [address] Performed By: #### 1 989-3 #### [facility] CLIA [id number] [address] [place] [address] [place] Hematocrit (Bld) [Volume fraction] 27.9 % Low 36.0-46.0 [facility] Comment on above: Order Comment: Speci men Type: BLOOD SPECIMEN Ordering Facility: [facility] Address: [address] [place] [address] Performed By: #### 1 989-3 #### [facility] CLIA [id number] [address] [place] [address] [place] Hemoglobin (Bld) [Mass/Vol] 7.8 g/dL Low 11.5-15.5 [facility] Comment on above: Order Comment: Speci men Type: BLOOD SPECIMEN Ordering Facility: [facility] Address: [address] [place] [address] Performed By: #### 1 989-3 #### [facility] CLIA [id number] [address] [place] [address] [place] MCH (RBC) [Entitic mass] 23.1 pg Low 26.0-34.0 [facility] Comment on above: Order Comment: Speci men Type: BLOOD SPECIMEN Ordering Facility: [facility] Address: [address] [place] [address] Performed By: #### 1 989-3 #### [facility] CLIA [id number] [address] [place] [address] [place] MCHC (RBC) [Mass/Vol] 28.0 g/dL Low 30.5-36.0 [facility] Comment on above: Order Comment: Speci men Type: BLOOD SPECIMEN Ordering Facility: [facility] Address: [address] [place] [address] Performed By: #### 1 989-3 #### [facility] CLIA [id number] [address] [place] [address] [place] MCV (RBC) [Entitic vol] 82.8 fL Normal 80.0-100.0 [facility] Comment on above: Order Comment: Speci men Type: BLOOD SPECIMEN Ordering Facility: [facility] Address: [address] [place] [address] Performed By: #### 1 989-3 #### [facility] CLIA [id number] [address] [place] [address] [place] Nucleated RBC (Bld) [#/Vol] 10*3/uL Normal <0.01 [facility] Comment on above: Order Comment: Speci men Type: BLOOD SPECIMEN Ordering Facility: [facility] Address: [address] [place] [address] Performed By: #### 1 989-3 #### [facility] CLIA [id number] [address] [place] [address] [place] Platelet mean volume (Bld) [Entitic vol] 12.5 fL Normal 9.0-12.7 [facility] Comment on above: Order Comment: Speci men Type: BLOOD SPECIMEN Ordering Facility: [facility] Address: [address] [place] [address] Performed By: #### 1 989-3 #### [facility] CLIA [id number] [address] [place] [address] [place] Platelets (Bld) [#/Vol] 204 10*3/uL Normal 150-400 [facility] Comment on above: Order Comment: Speci men Type: BLOOD SPECIMEN Ordering Facility: [facility] Address: [address] [place] [address] Performed By: #### 1 989-3 #### [facility] CLIA [id number] [address] [place] [address] [place] RBC (Bld) [#/Vol] 3.37 10*6/uL Low 3.90-5.20 [facility] Comment on above: Order Comment: Speci men Type: BLOOD SPECIMEN Ordering Facility: [facility] Address: [address] [place] [address] Performed By: #### 1 989-3 #### [facility] CLIA [id number] [address] [place] [address] [place] WBC (Bld) [#/Vol] 5.46 10*3/uL Normal 3.70-11.00 [facility] Comment on above: Order Comment: Speci men Type: BLOOD SPECIMEN Ordering Facility: [facility] Address: [address] [place] [address] Performed By: #### 1 989-3 #### [facility] CLIA [id number] [address] [place] [address] [place] Comprehensive metabolic 2000 panelon 07-04-2023 Albumin [Mass/Vol] 4.3 g/dL Normal 3.9-4.9 [facility] Comment on above: Order Comment: Speci men Type: BLOOD SPECIMEN Ordering Facility: [facility] Address: [address] [place] [address] Performed By: #### 1 989-3 #### [facility] CLIA [id number] [address] [place] [address] [place] ALP [Catalytic activity/Vol] 188 U/L High 34-123 [facility] Comment on above: Order Comment: Speci men Type: BLOOD SPECIMEN Ordering Facility: [facility] Address: [address] [place] [address] Performed By: #### 1 989-3 #### [facility] CLIA [id number] [address] [address] [place] ALT [Catalytic activity/Vol] 45 U/L High 7-38 [facility] Comment on above: Order Comment: Speci men Type: BLOOD SPECIMEN Ordering Facility: [facility] Address: [address] [place] [address] Performed By: #### 1 989-3 #### [facility] CLIA [id number] [address] [place] [address] [place] Anion gap [Moles/Vol] 14 mmol/L Normal 9-18 [facility] Comment on above: Order Comment: Speci men Type: BLOOD SPECIMEN Ordering Facility: [facility] Address: [address] [place] [address] Performed By: #### 1 989-3 #### [facility] CLIA [id number] [address] [place] [address] [place] AST [Catalytic activity/Vol] 48 U/L High 13-35 [facility] Comment on above: Order Comment: Speci men Type: BLOOD SPECIMEN Ordering Facility: [facility] Address: [address] [place] [address] Performed By: #### 1 989-3 #### [facility] CLIA [id number] [address] [place] [address] [place] Bilirubin [Mass/Vol] 0.6 mg/dL Normal 0.2-1.3 [facility] Comment on above: Order Comment: Speci men Type: BLOOD SPECIMEN Ordering Facility: [facility] Address: [address] [place] [address] Performed By: #### 1 989-3 #### [facility] CLIA [id number] [address] [place] [id number] [place] Calcium [Mass/Vol] 9.7 mg/dL Normal 8.5-10.2 [facility] Comment on above: Order Comment: Speci men Type: BLOOD SPECIMEN Ordering Facility: [facility] Address: [address] [place] [address] Performed By: #### 1 989-3 #### [facility] CLIA [id number] [address] [place] [address] [place] Chloride [Moles/Vol] 98 mmol/L Normal 97-105 [facility] Comment on above: Order Comment: Speci men Type: BLOOD SPECIMEN Ordering Facility: [facility] Address: [address] [place] [address] Performed By: #### 1 989-3 #### [facility] CLIA [id number] [address] [place] [address] [place] CO2 [Moles/Vol] 23 mmol/L Normal 22-30 [facility] Comment on above: Order Comment: Speci men Type: BLOOD SPECIMEN Ordering Facility: [facility] Address: [address] [place] [address] Performed By: #### 1 989-3 #### [facility] CLIA [id number] [address] [place] [address] [place] Creatinine [Mass/Vol] 0.68 mg/dL Normal 0.58-0.96 [facility] Comment on above: Order Comment: Speci men Type: BLOOD SPECIMEN Ordering Facility: [facility] Address: [address] [place] [address] Performed By: #### 1 989-3 #### [facility] CLIA [id number] [address] [place] [address] [place] Creatinine and Glomerular filtration rate.predicted panel (S/P/Bld) 88 mL/min/1.73m??? Normal >=60 [facility] Comment on above: Order Comment: Speci men Type: BLOOD SPECIMEN Ordering Facility: [facility] Address: [address] [place] [address] Result Comment: Audra mated Glomerular Filtration Rate [...] GFR. Performed By: #### 1 989-3 #### [facility] CLIA [id number] [address] [place] [address] [place] Glucose [Mass/Vol] 492 mg/dL High 74-99 [facility] Comment on above: Order Comment: Sudhakar mera Type: BLOOD SPECIMEN Ordering Facility: [facility] Address: [address] [place] [address] Result Comment: The [place] Diabetes Association (ADA) provides guidance for cutoff [...] Standards of Medical Care in Diabetes 2016, [place] Diabetes Association. Diabetes Care. 2016.39(Suppl 1). Performed By: #### 1 989-3 #### [facility] CLIA [id number] [address] [place] [id number] [place] Potassium [Moles/Vol] 4.7 mmol/L Normal 3.7-5.1 [facility] Comment on above: Order Comment: Sudhakar mera Type: BLOOD SPECIMEN Ordering Facility: [facility] Address: [address] [place] [address] Performed By: #### 1 989-3 #### [facility] CLIA [id number] [address] [address] [place] Protein [Mass/Vol] 7.2 g/dL Normal 6.3-8.0 [facility] Comment on above: Order Comment: Speci men Type: BLOOD SPECIMEN Ordering Facility: [facility] Address: [address] [place] [address] Performed By: #### 1 989-3 #### [facility] CLIA [id number] [address] [place] [address] [place] Sodium [Moles/Vol] 135 mmol/L Low 136-144 [facility] Comment on above: Order Comment: Speci men Type: BLOOD SPECIMEN Ordering Facility: [facility] Address: [address] [place] [address] Performed By: #### 1 989-3 #### [facility] CLIA [id number] [address] [place] [address] [place] Urea nitrogen [Mass/Vol] 15 mg/dL Normal 7-21 [facility] Comment on above: Order Comment: Speci men Type: BLOOD SPECIMEN Ordering Facility: [facility] Address: [address] [place] [address] Performed By: #### 1 989-3 #### [facility] CLIA [id number] [address] [place] [address] [place] HbA1c (Bld)on 07-04-2023 Average glucose Estimated from glycated hemoglobin (Bld) [Mass/Vol] 324 mg/dL Normal [facility] Comment on above: Order Comment: Speci men Type: BLOOD SPECIMEN Ordering Facility: [facility] Address: [address] [place] [address] Result Comment: eAG: (Estimated average glucose) is a calculated value from HgbA1c and is customer engagement representative of the average blood glucose level in the last 2-3 month period. Performed By: #### 5 5454-3 #### [facility] CLIA [id number] [address] [place] [address] [place] HbA1c (Bld) [Mass fraction] 12.9 % High 4.3-5.6 [facility] Comment on above: Order Comment: Speci men Type: BLOOD SPECIMEN Ordering Facility: [facility] Address: [address] [place] [address] Result Comment: [place] Diabetes Association guidelines indicate that patients with HgbA1c in the range 5.7-6.4% are at increased risk for development of diabetes, and intervention by lifestyle modification may be beneficial. HgbA1c greater or equal to 6.5% is considered diagnostic of diabetes. Performed By: #### 5 5454-3 #### [facility] CLIA [id number] [address] [place] [address] [place] T3Free SerPl-mCncon 07-04-19 24 Free T3 [Mass/Vol] 2.4 pg/mL Normal 2.3-4.1 [facility] Comment on above: Order Comment: Speci men Type: BLOOD SPECIMEN Ordering Facility: [facility] Address: [address] [place] [address] Performed By: #### 1 989-3 #### [facility] CLIA [id number] [address] [place] [address] [place] T4 Free SerPl-mCncon 024 Free T4 [Mass/Vol] 1.3 ng/dL Normal 0.9-1.7 [facility] Comment on above: Order Comment: Speci men Type: BLOOD SPECIMEN Ordering Facility: [facility] Address: [address] [place] [address] Performed By: #### 1 989-3 #### [facility] CLIA [id number] [address] [place], [place] [address] [place] TSH SerPl-aCncon 07-04-2023 TSH Qn 4.380 m[IU]/L High 0.270-4.200 [facility] Comment on above: Order Comment: Speci men Type: BLOOD SPECIMEN Ordering Facility: [facility] Address: [address] [place] [address] Performed By: #### 1 989-3 #### [facility] CLIA [id number] [address] [place] [id number] [facility] [place] 04-21-2023 CNPN Telephone (ROCK) DARIELSTEVE ([id number]) 1945 F Date Time Provider Department 04/21/23 SHERWIN CHE During your visit today, we recorded the following information about you: Sherwin hCe, OSITO 04/21/2023 10:21 AM Signed Sw spoke with patient and verified that patient Jardiance medication is the only medication that she applies to [facility] for assistance. Lesli will take forms to Dr. Ellis office for prescription completion. 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 They have [...] by mouth daily with breakfast. Gets through [employer]. - ferrous sulfate 325 mg [...] Status:Closed by RENETTA ABERNATHY LPN on 04/22/23 [facility] [place] 03-04-2023 CNPN Telephone (ALEAHWST) STEVE VIEIRA ([id number]) 1945 F Date Time Provider Department 03/04/23 [...] cost and stops. Lesli will mail Community [employer] Transportation brochures and [facility] Older Adult resource guide to patient [...] by mouth daily with breakfast. Gets through [employer]. - ferrous sulfate 325 mg [...] Encounter Status:Closed by SHERWIN CHE on 03/05/23 [facility] CNOVon 02-28-2023 CNOV Office Visit (INTMWS ) DARIEL,MARGARET L ([id number]) 1945 F Date Time Provider Department 02/28/23 2:00 PM PETER ELLIS INTMWS During your visit today, we recorded the following information about you: Temperature Pulse Respiration Blood pressure 97.8 degrees 115/minute 18/minute 104/65 Weight 64.9 kg Peter Ellis MD 03/31/2023 12:27 AM Signed This note was created using [employer]. Subjective Steve Vieira is a 77 year [...] by mouth daily with breakfast. Gets through [employer]. ferrous sulfate 325 mg (65 [...] 85.8 Albumin (more content not included)... Normal [facility] ALBUMIN/CREAT RATIO RND URon 02-13-2023 Albumin DL <= 20 mg/L (U) [Mass/Vol] 15.5 mg/L Normal [facility] Comment on above: Order Comment: Speci men Type: URINE SPECIMENOrdering Facility: [facility] Address: [address] [place] [phone] Performed By: #### U ACR ####[facility] [id number] [place] [address] [place] Albumin/Creatinine (U) [Mass ratio] 18 mg/g Normal <30 [facility] Comment on above: Order Comment: Speci men Type: URINE SPECIMENOrdering Facility: [facility] Address: [address] [place] [place] [phone] Result Comment: Adul t Male and Female Nephrotic Criteria: <30 mg/g is considered normal to mildly increased 30-300 mg/g is considered moderately increased >300 mg/g is considered severely increased KDIGO. (2013). KDIGO 2012 Clinical Practice Guideline for the Evaluation and Management of Chronic Kidney Disease. Official Journal of the International Society of Nephrology, 3(1), 1-150. Performed By: #### U ACR ####[facility] [id number] [address] STATES OF [facility] Creatinine (U) [Mass/Vol] 85.8 mg/dL Normal 20.0-300.0 [facility] Comment on above: Order Comment: Speci men Type: URINE SPECIMENOrdering Facility: [facility] Address: [address] [place] [phone] Performed By: #### U ACR ####[facility] [id number] [address] OF [facility] CBC panel Auto (Bld)on 02-13 Erythrocyte distribution width (RBC) [Ratio] 15.3 % High 11.5 - 15.0 % [facility] Hematocrit (Bld) [Volume fraction] 29.8 % Low 36.0 - 46.0 % [facility] Hemoglobin (Bld) [Mass/Vol] 8.5 g/dL Low 11.5 - 15.5 g/dL [facility] MCH (RBC) [Entitic mass] 24.8 pg Low 26. 0 - 34.0 pg [facility] MCHC (RBC) [Mass/Vol] 28.5 g/dL Low 30.5 - 36.0 g/dL [facility] MCV (RBC) [Entitic vol] 86.9 fL 80.0 - 100.0 fL [facility] Nucleated RBC (Bld) [#/Vol] <0.01 k/uL [facility] Platelet mean volume (Bld) [Entitic vol] 11.9 fL 9.0 - 12.7 fL [facility] Platelets (Bld) [#/Vol] 232 10*3/uL 150 - 400 k/uL [facility] RBC (Bld) [#/Vol] 3.43 10*6/uL Low 3.90 - 5.2 0 m/uL [facility] WBC (Bld) [#/Vol] 6.00 10*3/uL 3.70 - 11. 00 k/uL [facility] Erythrocyte distribution width (RBC) [Ratio] 15.3 % High 11.5-15.0 [facility] Comment on above: Order Comment: Speci men Type: BLOOD SPECIMENOrdering Facility: [facility] Address: [address] [place] [address] Performed By: #### 5 8410-2 ####[facility] [id number] [place] [address] [place] Hematocrit (Bld) [Volume fraction] 29.8 % Low 36.0-46.0 [facility] Comment on above: Order Comment: Speci men Type: BLOOD SPECIMENOrdering Facility: [facility] Address: [address] [place] [address] Performed By: #### 5 8410-2 ####[facility] [id number] [place] [address] [place] Hemoglobin (Bld) [Mass/Vol] 8.5 g/dL Low 11.5-15.5 [facility] Comment on above: Order Comment: Speci men Type: BLOOD SPECIMENOrdering Facility: [facility] Address: [address] [place] [address] Performed By: #### 5 8410-2 ####[facility] [id number] [place] [address] [place] MCH (RBC) [Entitic mass] 24.8 pg Low 26.0-34.0 [facility] Comment on above: Order Comment: Speci men Type: BLOOD SPECIMENOrdering Facility: [facility] Address: [address] [place] [address] Performed By: #### 5 8410-2 ####[facility] [id number] [place] [address] [place] MCHC (RBC) [Mass/Vol] 28.5 g/dL Low 30.5-36.0 [facility] Comment on above: Order Comment: Speci men Type: BLOOD SPECIMENOrdering Facility: [facility] Address: [address] [place] [address] Performed By: #### 5 8410-2 ####[facility] LABIA [id number] [address] [place] MCV (RBC) [Entitic vol] 86.9 fL Normal 80.0-100.0 [facility] Comment on above: Order Comment: Speci men Type: BLOOD SPECIMENOrdering Facility: [facility] Address: [address] [place] [address] Performed By: #### 5 8410-2 ####[facility]IA [id number] [address] [place] Nucleated RBC (Bld) [#/Vol] 10*3/uL Normal <0.01 [facility] Comment on above: Order Comment: Speci men Type: BLOOD SPECIMENOrdering Facility: [facility] Address: [address] [place], [place] [address] Performed By: #### 5 8410-2 ####[facility] LABIA [id number] [place] [address] [place] Platelet mean volume (Bld) [Entitic vol] 11.9 fL Normal 9.0-12.7 [facility] Comment on above: Order Comment: Speci men Type: BLOOD SPECIMENOrdering Facility: [facility] Address: [address] [place], [place] [address] Performed By: #### 5 8410-2 ####[facility]CL[facility] [id number] [place] [address] [place] Platelets (Bld) [#/Vol] 232 10*3/uL Normal 150-400 [facility] Comment on above: Order Comment: Speci men Type: BLOOD SPECIMENOrdering Facility: [facility] Address: [address] [place] [address] Performed By: #### 5 8410-2 ####[facility] [id number] [place] [address] [place] RBC (Bld) [#/Vol] 3.43 10*6/uL Low 3.90-5.20 [facility] Comment on above: Order Comment: Speci men Type: BLOOD SPECIMENOrdering Facility: [facility] Address: [address] Performed By: #### 5 8410-2 ####[facility] [id number] [place] [address] [place] WBC (Bld) [#/Vol] 6.00 10*3/uL Normal 3.70-11.00 [facility] Comment on above: Order Comment: Speci men Type: BLOOD SPECIMENOrdering Facility: [facility] Address: [address] [place] [address] Performed By: #### 5 8410-2 ####[facility]CL[facility] [id number] [place] [address] [place] Comprehensive metabolic 2000 panelon 02-13-2023 Albumin [Mass/Vol] 4.3 g/dL Normal 3.9-4.9 [facility] Comment on above: Order Comment: Speci men Type: BLOOD SPECIMEN [facility] Address: [address] [place] [address] Performed By: #### 1 989-3 #### [facility] CLIA [id number] [address] [place] [address] [place] ALP [Catalytic activity/Vol] 151 U/L High 34-123 [facility] Comment on above: Order Comment: Speci men Type: BLOOD SPECIMEN [facility] Address: [address] [place] [address] Performed By: #### 1 989-3 #### [facility] CLIA [id number] [address] [place] [address] [place] ALT [Catalytic activity/Vol] 32 U/L Normal 7-38 [facility] Comment on above: Order Comment: Speci men Type: BLOOD SPECIMEN [facility] Address: [address] [place] [address] Performed By: #### 1 989-3 #### [facility] CLIA [id number] [address] [place] [address] [place] Anion gap [Moles/Vol] 13 mmol/L Normal 9-18 [facility] Comment on above: Order Comment: Speci men Type: BLOOD SPECIMEN [facility] Address: [address] [place] [address] Performed By: #### 1 989-3 #### [facility] CLIA [id number] [address] [place] [address] [place] AST [Catalytic activity/Vol] 59 U/L High 13-35 [facility] Comment on above: Order Comment: Speci men Type: BLOOD SPECIMEN [facility] Address: [address] [place] [address] Performed By: #### 1 989-3 #### [facility] CLIA [id number] [address] [place] [address] [place] Bilirubin [Mass/Vol] 0.5 mg/dL Normal 0.2-1.3 [facility] Comment on above: Order Comment: Speci men Type: BLOOD SPECIMEN [facility] Address: [address] [place] [address] Performed By: #### 1 989-3 #### [facility] CLIA [id number] [address] [place] [address] [place] Calcium [Mass/Vol] 9.6 mg/dL Normal 8.5-10.2 [facility] Comment on above: Order Comment: Speci men Type: BLOOD SPECIMEN [facility] Address: [address] [place] [address] Performed By: #### 1 989-3 #### [facility] CLIA [id number] [address] [place] [address] [place] Chloride [Moles/Vol] 104 mmol/L Normal 97-105 [facility] Comment on above: Order Comment: Speci men Type: BLOOD SPECIMEN [facility] Address: [address] [place] [address] Performed By: #### 1 989-3 #### [facility] CLIA [id number] [address] [place] [address] [place] CO2 [Moles/Vol] 21 mmol/L Low 22-30 [facility] Comment on above: Order Comment: Speci men Type: BLOOD SPECIMEN [facility] Address: [address] [place] [address] Performed By: #### 1 989-3 #### [facility] CLIA [id number] [address] [place] [address] [place] Creatinine [Mass/Vol] 0.73 mg/dL Normal 0.58-0.96 [facility] Comment on above: Order Comment: Speci men Type: BLOOD SPECIMEN [facility] Address: [address] [place] [address] Performed By: #### 1 989-3 #### [facility] CLIA [id number] [address] [place] [address] [place] Creatinine and Glomerular filtration rate.predicted panel (S/P/Bld) 84 mL/min/1.73m??? Normal >=60 [facility] Comment on above: Order Comment: Speci men Type: BLOOD SPECIMEN [facility] Address: [address] [place] [address] Result Comment: Audra mated Glomerular Filtration Rate [...] GFR. Performed By: #### 1 989-3 #### [facility] CLIA [id number] [facility] [place] [address] [place] Glucose [Mass/Vol] 172 mg/dL High 74-99 [facility] Comment on above: Order Comment: Sudhakar mera Type: BLOOD SPECIMEN [facility] Address: [address] [place] [address] Result Comment: The [place] Diabetes Association (ADA) provides guidance for cutoff [...] Standards of Medical Care in Diabetes 2016, [place] Diabetes Association. Diabetes Care. 2016.39(Suppl 1). Performed By: #### 1 989-3 #### [facility] CLIA [id number] [facility] [place] [address] [place] Potassium [Moles/Vol] 4.9 mmol/L Normal 3.7-5.1 [facility] Comment on above: Order Comment: Sudhakar mera Type: BLOOD SPECIMEN [facility] Address: [address] [place] [address] Performed By: #### 1 989-3 #### [facility] CLIA [id number] [address] [place] [address] [place] Protein [Mass/Vol] 7.1 g/dL Normal 6.3-8.0 [facility] Comment on above: Order Comment: Speci men Type: BLOOD SPECIMEN [facility] Address: [address] [place] [address] Performed By: #### 1 989-3 #### [facility] CLIA [id number] [address] [place] [address] [place] Sodium [Moles/Vol] 138 mmol/L Normal 136-144 [facility] Comment on above: Order Comment: Speci men Type: BLOOD SPECIMEN [facility] Address: [address] [place] [address] Performed By: #### 1 989-3 #### [facility] CLIA [id number] [address] [place] [address] [place] Urea nitrogen [Mass/Vol] 21 mg/dL Normal 7-21 [facility] Comment on above: Order Comment: Speci men Type: BLOOD SPECIMEN [facility] Address: [address] [place] [address] Performed By: #### 1 989-3 #### [facility] CLIA [id number] [address] [place] [address] [place] Ferritin SerPl-mCncon 2022 Ferritin [Mass/Vol] 16.6 ng/mL Normal 14.7-205.1 [facility] Comment on above: Order Comment: Speci men Type: BLOOD SPECIMENOrdering Facility: [facility] Address: [address] [place] [id number] Performed By: #### 2 276-4, 3024-7, 3016-3 ####[facility] LABCLIA [id number] [place] [address] [place] Folate SerPl-mCncon 02-14-20 23 Folate [Mass/Vol] ng/mL Normal >4.7 [facility] Comment on above: Order Comment: Sudhakar mera Type: BLOOD SPECIMENOrdering Facility: [facility] Address: [address] [place] [address] Result Comment: A re sult of > 20 ng/mL is not necessarily indicative of a pathologic or treatable condition: it reflects a limitation of the test methodology. Assay reference range: 4.8 to 24.2 ng/mL. Suitable for detection of folate deficiency. Reference: Folate III (Folate III) [package insert V 1.0 Thai]. [employer], [place], [place]: April 2015. Performed By: #### 2 132-9, 2284-8 ####[facility]CLIA [id number] [address] [place] HbA1c (Bld)on 02-13-2023 Average glucose Estimated from glycated hemoglobin (Bld) [Mass/Vol] 206 mg/dL Normal [facility] Comment on above: Order Comment: Sudhakar mera Type: BLOOD SPECIMENOrdering Facility: [facility] Address: [address] [place] [address] Result Comment: eAG: (Estimated average glucose) is a calculated value from HgbA1c and is customer engagement representative of the average blood glucose level in the last 2-3 month period. Performed By: #### 5 5454-3 ####[facility]CLIA [id number] [place] [address] [place] HbA1c (Bld) [Mass fraction] 8.8 % High 4.3-5.6 [facility] Comment on above: Order Comment: Sudhakar [facility] Type: BLOOD SPECIMENOrdering Facility: [facility] Address: [address] [place] [address] Result Comment: [place] Diabetes Association guidelines indicate that patients with HgbA1c in the range 5.7-6.4% are at increased risk for development of diabetes, and intervention by lifestyle modification may be beneficial. HgbA1c greater or equal to 6.5% is considered diagnostic of diabetes. Performed By: #### 5 5454-3 ####[facility]CLIA [id number] [place] [address] [place] Iron and Iron binding capaci ty panelon 02-13-2023 Iron [Mass/Vol] 29 ug/dL Low 41-186 [facility] Comment on above: Order Comment: Speci men Type: BLOOD SPECIMEN [facility] Address: [address] [place] [address] Performed By: #### 1 989-3 #### [facility] CLIA [id number] [address] [place] [address] [place] Iron binding capacity [Mass/Vol] 418 ug/dL High 232-386 [facility] Comment on above: Order Comment: Speci men Type: BLOOD SPECIMEN [facility] Address: [address] [place] [address] Performed By: #### 1 989-3 #### [facility] CLIA [id number] [address] [place] [address] [place] Iron/TIBC [Molar ratio] 6.9 % Low 15.0-57.0 [facility] Comment on above: Order Comment: Speci men Type: BLOOD SPECIMEN [facility] Address: [address] [place] [address] Performed By: #### 1 989-3 #### [facility] CLIA [id number] [address] [place] [address] [place] Lipid 1996 panelon Cholesterol [Mass/Vol] 118 mg/dL Normal <200 [facility] Comment on above: Order Comment: Speci men Type: BLOOD SPECIMENOrdering Facility: [facility] Address: [address] [place], [place] [address] Result Comment: <200 mg/dL, Desirable 200-239 mg/dL, Borderline high >239 mg/dL, High Performed By: #### 3 051-0, 85014-3, 55726-6, 43110-8 ####[facility]CLIA [id number] [address] Cholesterol in HDL [Mass/Vol] 32 mg/dL Low >39 [facility] Comment on above: Order Comment: Sudhakar samaria Type: BLOOD SPECIMENOrdering Facility: [facility] Address: [address] [place] [address] Result Comment: 40-5 9 mg/dL, Acceptable >59 mg/dL, High: Negative risk factor for coronary heart disease <40 mg/dL, Low: Positive risk factor for coronary heart disease Performed By: #### 3 051-0, 75026-9, 15780-6, 30563-9 ####[facility] LABIA [id number] [address] Cholesterol in LDL [Mass/Vol] 63 mg/dL Normal <100 [facility] Comment on above: Order Comment: Sudhakar mera Type: BLOOD SPECIMENOrdering Facility: [facility] Address: [address] [place] [address] Result Comment: <100 mg/dL, Optimal 100-129 mg/dL, Near optimal/above optimal 130-159 mg/dL, Borderline high 160-189 mg/dL, High >189 mg/dL, Very high Secondary prevention optimal LDL Cholesterol levels are recommended to be < 70 mg/dL Performed By: #### 3 051-0, 86290-6, 25775-7, 78027-7 ####[facility] LABIA [id number] [address] OF [facility] Cholesterol in LDL/Cholesterol in HDL [Mass ratio] 1.97 {ratio} Normal <2.54 [facility] Comment on above: Order Comment: Sudhakar samaria Type: BLOOD SPECIMENOrdering Facility: [facility] Address: [address] [place] [address] Result Comment: Perico zhao: 1. National Cholesterol Education Program ATP III Guideline At-A-Glance Quick Desk Reference: National Heart, Lung, and Blood Se[place]our. National Institutes of Health. 2001: NIH Publication No. 01-3305. 2. An International Atherosclerosis Society position paper: global recommendations for the management of dyslipidemia: executive summary, Atherosclerosis. 2014: 232(2):410-413. Performed By: #### 3 051-0, 60867-2, 69278-1, 08244-8 ####[facility] LABCLIA [id number] [place] [address] [place] Cholesterol in VLDL [Mass/Vol] 23 mg/dL Normal <30 [facility] Comment on above: Order Comment: Speci men Type: BLOOD SPECIMENOrdering Facility: [facility] Address: [address] [place] [address] Performed By: #### 3 051-0, 06553-6, 49188-6, 65962-6 ####[facility] LABCLIA [id number] [place] [address] [place] Cholesterol non HDL [Mass/Vol] 86 mg/dL Normal <130 [facility] Comment on above: Order Comment: Speci men Type: BLOOD SPECIMENOrdering Facility: [facility] Address: [address] [place] [address] Result Comment: <130 mg/dL, Optimal 130-159 mg/dL, Near optimal/above optimal 160-189 mg/dL, Borderline high 190-219 mg/dL, High >219 mg/dL, Very high Secondary prevention optimal non HDL Cholesterol levels are recommended to be <100 mg/dL Performed By: #### 3 051-0, 22745-0, 36774-5, 62486-2 ####[facility] LABCLIA [id number] [place] [address] [place] Cholesterol.total/Cholest cristian in HDL [Mass ratio] 3.69 {ratio} Normal <5.10 [facility] Comment on above: Order Comment: Speci men Type: BLOOD SPECIMENOrdering Facility: [facility] Address: [address] [place] [address] Performed By: #### 3 051-0, 71567-8, 09988-0, 43655-7 ####[facility]CLIA [id number] [place] [address] [place] FASTING TIME 13 hrs Normal [facility] Comment on above: Order Comment: Speci men Type: BLOOD SPECIMENOrdering Facility: [facility] Address: [address] [place] [address] Performed By: #### 3 051-0, 23139-4, 76655-2, 25799-0 ####[facility]CLIA [id number] [place] [address] [place] Triglyceride [Mass/Vol] 113 mg/dL Normal <150 [facility] Comment on above: Order Comment: Speci men Type: BLOOD SPECIMENOrdering Facility: [facility] Address: [address] [place] [address] Result Comment: <150 mg/dL, Normal 150-199 mg/dL, Borderline high 200-499 mg/dL, High >499 mg/dL, Very high Performed By: #### 3 051-0, 12002-4, 53675-9, 43768-0 ####[facility]CLIA [id number] [place] [address] [place] T3Free SerPl-mCncon 02-14-20 23 Free T3 [Mass/Vol] 2.5 pg/mL Normal 2.3-4.1 [facility] Comment on above: Order Comment: Speci men Type: BLOOD SPECIMENOrdering Facility: [facility] Address: [address] [place] [address] Performed By: #### 3 051-0, 61604-7, 69734-8, 16073-0 ####[facility]CLIA [id number] [place] [address] [place] T4 Free SerPl-mCncon 023 Free T4 [Mass/Vol] 1.3 ng/dL Normal 0.9-1.7 [facility] Comment on above: Order Comment: Speci men Type: BLOOD SPECIMENOrdering Facility: [facility] Address: [place] [address] Performed By: #### 2 276-4, 3024-7, 3016-3 ####[facility] LABIA [id number] [address] [place] TSH SerPl-aCncon 02-13-2023 TSH Qn 4.230 m[IU]/L High 0.270-4.200 [facility] Comment on above: Order Comment: Speci men Type: BLOOD SPECIMENOrdering Facility: [facility] Address: [place] [address] Performed By: #### 2 276-4, 3024-7, 3016-3 ####[facility] [id number] [address] OF [facility] Vit B12 SerPl-mCncon 023 Cobalamin (Vitamin B12) [Mass/Vol] 331 pg/mL Normal 232-1245 [facility] Comment on above: Order Comment: Speci men Type: BLOOD SPECIMENOrdering Facility: [facility] Address: [place] [address] Performed By: #### 2 132-9, 2284-8 ####[facility] [id number] [address] [place] CNPNon 02-10-2023 CNPN Telephone (INTMWS) STEVE VIEIRA ([id number]) 1945 F Date Time Provider Department 02/10/23 [...] hyperglycemia (HCC) [E11.65] Order(s):CBC [SQCBC] Order #: [id number] FUTURE COMP METABOLIC PANEL [SQCMP] Order #: [id number] FUTURE HGB A1C [VVYJA5P] Order #: [id number] FUTURE LIPID PANEL BASIC [SQLIPB] Order #: [id number] FUTURE ALBUMIN/CREAT RATIO RND UR [SQUACR] Order #: [id number] FUTURE TSH BLD [SQTSH] Order #: [id number] FUTURE T4 FREE/FREE THYROX [SQFT4] Order #: [id number] FUTURE T3 FREE BLD [SQFREET3] Order #: [id number] FUTURE VITAMIN B12 BLOOD [SQB12] Order #: [id number] FUTURE IRON + TIBC [SQIRON] Order #: [id number] FUTURE FOLATE SERUM [SQSERFOL] Order #: [id number] FUTURE FERRITIN BLD [SQFERR] Order #: [id number] FUTURE Prescriptions as of 02/13/2023 - metFORMIN [...] subcutaneously one time a week. Gets through [employer] [facility] PAP. - empagliflozin (JARDIANCE) 25 mg tablet Take 1 tablet by mouth daily with breakfast. Gets through [employer] PAP. - ferrous sulfate 325 mg (65 [...] Status:Closed by Barbara VILLAGOMEZ RN on 02/13/23 [facility] URINE CULTUREon 03-22-2019 Bacteria identified Cx Nom (U) Specimen source XXX: CLEAN VOIDED MIDSTREAM Performed at [address] [address] Service Cmnt XXX-Imp: NONE Performed at [address] [address] CC Number Ur: >100,000 CFU/mL Bacteria identified: Mixture of 3 or more organisms, no one type predominant, suggesting contamination during collection. Recollect if clinically indicated Performed at [address] [place] [address] : FINAL 03/22/2019 Normal [facility] Comment on above: Performed By: #### U ACUL #### [address] [address] C REACTIVE PROTEINon 019 CRP [Mass/Vol] Normal 0-2.0 [facility] Comment on above: Result Comment: 0.3 LESS THAN Performed at [address] [address] Performed By: #### U ACUL #### [address] [address] CKMB Isha 03-21-2019 CK.MB [Mass/Vol] 3.2 ng/mL Normal 0.0-5.0 [facility] Comment on above: Performed By: #### U ACUL #### [address] [address] CKMB % INDEX Normal 0-3.5 [facility] Comment on above: Result Comment: 1.9 Performed at [address] [address] Performed By: #### U ACUL #### [address] [address] CREATINE KINASEon 03-21-2019 CK [Catalytic activity/Vol] Normal 24-195 [facility] Comment on above: Result Comment: 167 Performed at [address] [address] Performed By: #### C K #### [address] [address] HEMOGLOBIN A1con 03-21-2019 HbA1c (Bld) [Mass fraction] High 4.0-6.0 [facility] Comment on above: Result Comment: 7.7 Hemoglobin [...] mg/dl 10% ............................... 240 mg/dl Performed at [address] [place] [address] Performed By: #### U ACUL #### [address] [address] HS TROPONIN Ton 03-21-2019 Troponin T.cardiac [Mass/Vol] Normal <15 [facility] Comment on above: Result Comment: 1 Performed at [address] [place] [address] Performed By: #### H STROP #### [facility] [address] [place] [address] Result Comment: 13 Sex Specific Reference Range: [...] biotin administration. LDHon 03-21-2019 LDH Normal 91-227 [facility] Comment on above: Result Comment: 205 Performed at [address] [place] [address] Performed By: #### U ACUL #### [facility] [address] [place] [address] SEDIMENTATION RATEon 019 SEDIMENTATION RATE High 0-20 [facility] Comment on above: Result Comment: 39 Performed at [address] [place] [address] Performed By: #### U ACUL #### [address] [address] TSHon 03-21-2019 TSH Qn Normal 0.27-4.20 [facility] Comment on above: Result Comment: 2.55 Performed at [address] [address] Performed By: #### U ACUL #### [address] [address] ANGIO CHESTon 03-20-2019 ANGIO CHEST *FINAL Date of Service: 03/20/2019 21:34 Adm #: [id number] Reading Dr:MITZY LARA Signoff Dr: MITZY LARA PROCEDURE: ANGIO CHEST - ICT [id number] REASON FOR EXAM: sob ? PE RESULT: [...] acute pathologic findings are identified. Hiatal hernia. [id number] This report has been produced using speech [...] Physician: MITZY LARA M.D. Original Transcribed by/Date: [facility] Mar 20 2019 9:36P Original Electronically Signed by/Date: MITZY LARA M.D. Mar 20 2019 9:36P Addendum Interpreting Physician: Addendum Transcribed by/Date: NO ADDENDUM Addendum Electronically Signed by/Date: [facility] BRAIN WO CONTRASTon 03-20-20 19 BRAIN WO CONTRAST *FINAL Date of Service: 03/20/2019 20:05 Adm #: [id number] Reading Dr:MITZY LARA Signoff Dr: MITZY LARA [...] No acute intracranial pathologic findings are identified. [id number] This report has been produced using speech [...] Physician: MITZY LARA M.D. Original Transcribed by/Date: [facility] Mar 20 2019 8:10P Original Electronically Signed by/Date: MITZY LARA M.D. Mar 20 2019 8:10P Addendum Interpreting Physician: Addendum Transcribed by/Date: NO ADDENDUM Addendum Electronically Signed by/Date: [facility] [facility] CBC with Diffon 03-20-2019 AB IMMATURE NEUT 0.02 K/UL Normal 0.0-0.1 [facility] Comment on above: Performed By: #### C BCD #### [facility] [address] [place] [address] ABS BASO 0.02 K/UL Normal 0.00-0.22 [facility] Comment on above: Performed By: #### C BCD #### [facility] [address] [place] [address] ABS EOS 0.02 K/UL Normal 0-0.45 [facility] Comment on above: Performed By: #### C BCD #### [facility] [address] [place] [address] ABS NEUTROPHILS 4.63 K/UL Normal 1.8-7.7 [facility] Comment on above: Performed By: #### C BCD #### [facility] [address], [place] [address] ABS.NEUT.CALCULATED Normal [facility] Comment on above: Result Comment: 4.63 [facility]formed at [facility] [address] [place] [address] Performed By: #### C BCD #### [facility] [address], [place] [address] Basophils/100 WBC (Bld) 0.40 % Normal 0-1 L [facility] Comment on above: Performed By: #### C BCD #### [facility] [address], [place] [address] DIFF TYPE AUTO DIFF Normal [facility] Comment on above: Performed By: #### C BCD #### [facility] [address], [place] [address] Eosinophils/100 WBC (Bld) 0.40 % Normal 0-3 [facility] Comment on above: Performed By: #### C BCD #### [facility] [address], [place] [address] Erythrocyte distribution width (RBC) [Ratio] 15.5 % High 11.7-15.0 [facility] Comment on above: Performed By: #### C BCD #### [facility] [address], [place] [address] Hematocrit (Bld) [Volume fraction] 28.0 % Low 36-44 [facility] Comment on above: Performed By: #### C BCD #### [facility] [address], [place] [address] Hemoglobin (Bld) [Mass/Vol] 8.4 g/dL Low 12.0-15.0 [facility] Comment on above: Performed By: #### C BCD #### [facility] [address], [place] [address] Lymphocytes (Bld) [#/Vol] 0.40 10*3/uL Low 1.2-3.2 [facility] Comment on above: Performed By: #### C BCD #### [facility] [address], [place] [address] Lymphocytes/100 WBC (Bld) 7.30 % Low 20-40 [facility] Comment on above: Performed By: #### C BCD #### [facility] [address], [place] [address] MCH (RBC) [Entitic mass] 26.8 pg Normal 26-34 [facility] Comment on above: Performed By: #### C BCD #### [facility] [address], [place] [address] MCHC (RBC) [Mass/Vol] 30.0 % Low 31-37 [facility] Comment on above: Performed By: #### C BCD #### [facility] [address], [place] [address] MCV (RBC) [Entitic vol] 89.2 fL Normal 80-100 L [facility] Comment on above: Performed By: #### C BCD #### [facility] [address], [place] [address] MEAN PLT VOL 10.7 CU Normal 7.0-12.6 [facility] Comment on above: Performed By: #### C BCD #### [facility] [address], [place] [address] Monocytes (Bld) [#/Vol] 0.36 10*3/uL Normal 0-0.8 [facility] Comment on above: Performed By: #### C BCD #### [facility] [address], [place] [address] Monocytes/100 WBC (Bld) 6.60 % Normal 0-8 [facility] Comment on above: Performed By: #### C BCD #### [facility] [address], [place] [address] Neutrophils/100 WBC (Bld) 0.40 % Normal 0.0-1.0 [facility] Comment on above: Performed By: #### C BCD #### [facility] [address], [place] [address] Neutrophils/100 WBC (Bld) 84.90 % High 50-70 [facility] Comment on above: Performed By: #### C BCD #### [facility] [address], [place] [address] NRBC'S 0 /100 WBC Normal 0 [facility] Comment on above: Performed By: #### C BCD #### [facility] [address], [place] [address] Platelets (Bld) [#/Vol] 152 10*3/uL Normal 150-450 [facility] Comment on above: Performed By: #### C BCD #### [facility] [address], [place] [address] RBC (Bld) [#/Vol] 3.14 M/UL Low 4.0-4.9 [facility] Comment on above: Performed By: #### C BCD #### [facility] [address] [place] [address] RDW-SD 50.2 FL Normal 37.0-54.0 [facility] Comment on above: Performed By: #### C BCD #### [facility] [address] [address] WBC (Bld) [#/Vol] 5.5 10*3/uL Normal 4.5-11.0 [facility] Comment on above: Performed By: #### C BCD #### [facility] [address] [place] [address] COMPREHENSIVE METABOLIC PANE Fredrick 03-20-2019 Albumin [Mass/Vol] 4.2 g/dL Normal 3.5-5.0 [facility] Comment on above: Performed By: #### C DAY TRADER #### [facility] [address] [place] [address] Albumin/Globulin [Mass ratio] 1.6 {ratio} Normal 1.5-3.0 [facility] Comment on above: Performed By: #### C DAY TRADER #### [facility] [address] [place] [address] ALP [Catalytic activity/Vol] 80 U/L Normal 35-125 [facility] Comment on above: Performed By: #### C DAY TRADER #### [facility] [address] [place] [address] ALT [Catalytic activity/Vol] 13 U/L Normal 5-40 [facility] Comment on above: Performed By: #### C DAY TRADER #### [facility] [address] [place] [address] Anion gap [Moles/Vol] 16 mmol/L Normal 0-19 [facility] Comment on above: Performed By: #### C DAY TRADER #### [facility] [address], [place] [address] AST [Catalytic activity/Vol] 24 U/L Normal 5-40 [facility] Comment on above: Performed By: #### C DAY TRADER #### [facility] [address], [place] [address] Bilirubin [Mass/Vol] 0.4 mg/dL Normal 0.1-1.2 [facility] Comment on above: Performed By: #### C DAY TRADER #### [facility] [address], [place] [address] Calcium [Mass/Vol] 9.1 mg/dL Normal 8.5-10.4 [facility] Comment on above: Performed By: #### C DAY TRADER #### [facility] [address], [place] [address] Chloride [Moles/Vol] 105 mmol/L Normal 97-107 [facility] Comment on above: Performed By: #### C DAY TRADER #### [facility] [address], [place] [address] CO2 [Moles/Vol] 19 mmol/L Low 24-31 [facility] Comment on above: Performed By: #### C DAY TRADER #### [facility] [address], [place] [address] Creatinine [Mass/Vol] 1.1 mg/dL Normal 0.4-1.6 [facility] Comment on above: Performed By: #### C DAY TRADER #### [facility] [address], [place] [address] GFR/1.73 sq M.predicted MDRD (S/P/Bld) [Vol rate/Area] Normal [facility] Comment on above: Result Comment: 51 GFR ml/min/1.73m2 Stage ----- 90 1 60-89 2 30-59 3 15-29 4 <15 5 For -Americans, multiply EGFR result by 1.210 Calculation not validated for patients under 18 years of age. Performed at [facility] [address] [facility] [place] [address] Performed By: #### C DAY TRADER #### [facility] [address], [place] [address] Globulin (S) [Mass/Vol] 2.7 g/dL Normal 1.9-3.7 [facility] Comment on above: Performed By: #### C DAY TRADER #### [facility] [address], [place] [address] Glucose [Mass/Vol] 177 mg/dL High 65-99 [facility] Comment on above: Performed By: #### C DAY TRADER #### [facility] [address], [place] [address] Potassium [Moles/Vol] 3.9 mmol/L Normal 3.4-5.1 [facility] Comment on above: Performed By: #### C DAY TRADER #### [facility] [address], [place] [address] Protein [Mass/Vol] 6.9 g/dL Normal 5.9-7.9 [facility] Comment on above: Performed By: #### C DAY TRADER #### [facility] [address], [place] [address] Sodium [Moles/Vol] 140 mmol/L Normal 133-145 [facility] Comment on above: Performed By: #### C DAY TRADER #### [facility] [address], [place] [address] Urea nitrogen [Mass/Vol] 27 mg/dL High 8-25 [facility] Comment on above: Performed By: #### C DAY TRADER #### [facility] [address], [place] [address] Urea nitrogen/Creatinine [Mass ratio] 24.5 RATIO High 8-21 [facility] Comment on above: Performed By: #### C DAY TRADER #### [facility] [address], [place] [address] D-DIMERon 03-20-2019 D-DIMER High 0.19-0.50 [facility] Comment on above: Result Comment: 1.51 THROMBOEMBOLIC [...] IN PATIENTS RECEIVING ANTI-COAGULATION THERAPY. Performed at [address] [address] Performed By: #### D DMR #### [address] [address] HS TROPONIN Ton 03-20-2019 Troponin T.cardiac [Mass/Vol] Normal <15 [facility] Comment on above: Result Comment: No p revious result Performed at [place] [address] Performed By: #### H STROP #### [place] [address] Result Comment: 12 Sex Specific Reference Range: [...] INR Coag (PPP) [Relative time] Normal 0.86-1.16 [facility] Comment on above: Result Comment: 1.1 INR Theraputic Range: 2.0-3.5 Performed at [address] [address] Performed By: #### P TB #### [place] [address] PT Coag (PPP) [Time] 11.4 s Normal 9.3-12.7 [facility] Comment on above: Performed By: #### P TB #### [address] [address] PT Coag (PPP) [Time] INFORMATION NOT REPORTED TO LABORATORY Normal [facility] Comment on above: Performed By: #### P TB #### [address] [address] UA-REFLEX TO CULTUREon 03-20 RBC (Bld) [#/Vol] High 0-3 [facility] Comment on above: Result Comment: 85 CORRECTED ON 03/20 AT 2021: PREVIOUSLY REPORTED NONE SEEN Performed By: #### U ACUL #### [facility] [address], [place] [address] BACT Positive Normal [facility] Comment on above: Performed By: #### U ACUL #### [facility] [address], [place] [address] MICROSCOPIC AUTOMATIC MICROSCOPI C URINES Normal [facility] Comment on above: Performed By: #### U ACUL #### [facility] [address], [place] [address] URINE HYALINE CAST 12 /LPF Normal [facility] Comment on above: Performed By: #### U ACUL #### [facility] [address], [place] [address] URINE SQUAMOUS EPI MODERATE Normal [facility] Comment on above: Performed By: #### U ACUL #### [facility] [address], [place] [address] WBC 11 /HPF High 0-3 [facility] Comment on above: Performed By: #### U ACUL #### [facility] [address], [place] [address] Bacteria identified Cx Nom (U) [facility] Comment on above: Result Comment: CULT URE BEING ORDERED BASED ON LEUKOCYTE ESTERASE Performed at [facility] [address] [place] [address] Performed By: #### U ACUL #### [facility] [address], [place] [address] BILI Negative Normal NEG [facility] Comment on above: Performed By: #### U ACUL #### [facility] [address], [place] [address] BLOOD MODERATE Abnormal NEG [facility] Comment on above: Performed By: #### U ACUL #### [facility] [address], [place] [address] Clarity (U) HAZY Normal [facility] Comment on above: Performed By: #### U ACUL #### [facility] [address], [place] [address] Color (U) YELLOW Normal [facility] Comment on above: Performed By: #### U ACUL #### [facility] [address], [place] [address] GLUC 300 mg/dL Abnormal NEG [facility] Comment on above: Performed By: #### U ACUL #### [facility] [address], [place] [address] KET TRACE Abnormal NEG [facility] Comment on above: Performed By: #### U ACUL #### [facility] [address], [place] [address] LEUK SMALL Abnormal NEG [facility] Comment on above: Performed By: #### U ACUL #### [facility] [address], [place] [address] NIT Negative Normal NEG [facility] Comment on above: Performed By: #### U ACUL #### [facility] [address], [place] [address] pH (U) 5.5 [pH] Normal 4.6-8.0 [facility] Comment on above: Performed By: #### U ACUL #### [facility] [address], [place] [address] PROT 50 mg/dL Abnormal NEG [facility] Comment on above: Performed By: #### U ACUL #### [facility] [address], [place] [address] SP GRAV,URINE 1.031 High 1.005-1.030 [facility] Comment on above: Performed By: #### U ACUL #### [facility] [address], [place] [address] URO 2.0 MG/DL High 0-1.0 [facility] Comment on above: Performed By: #### U ACUL #### [facility] [address], [place] [address] No Panel Information [facility] Vital Signs Date Time Vital Sign Value Performing Clinician Facility 03-03-2025 16:20-0400 Body temperature 101 [degF] Dr. Peter Ellis MD Work Phone: [facility] 03-03-2025 16:20-0400 Diastolic blood pressure 74 mm[Hg] Dr. Peter Ellis MD Work Phone: [facility] 03-03-2025 16:20-0400 Heart rate 112 /min Dr. Peter Ellis MD Work Phone: [facility] 03-03-2025 16:20-0400 Respiratory rate 17 /min Dr. Peter Ellis MD Work Phone: 3(584)022-280144 [place] [address] 03-03-2025 16:20-0400 SaO2% (BldA) [Mass fraction] 100 % Dr. Peter Ellis MD Work Phone: 5(900)160-463844 [place] [address] 03-03-2025 16:20-0400 Systolic blood pressure 127 mm[Hg] Dr. Peter Ellis MD Work Phone: 9(157)814-738730 [place] [address] 03-03-2025 15:22-0400 Inhaled oxygen concentration 60 % Dr. Peter Ellis MD Work Phone: 3(999)955-304230 [place] [address] 03-03-2025 14:20-0400 Inhaled oxygen flow rate 10 L/min Dr. Peter Ellis MD Work Phone: 6(499)920-377230 [place] [address] 03-03-2025 14:11-0400 Body height 149.[address] Peter Ellis MD Work Phone: 7(054)404-200630 [place] [address] 03-03-2025 14:11-0400 Body mass index (BMI) [Ratio] 37.6 kg/m2 Dr. Peter Ellis MD Work Phone: 5(127)903-434230 [place] [address] 03-03-2025 14:11-0400 Body weight 84.[address] Peter Ellis MD Work Phone: [facility] 11-12-2023 14:30-0400 Body temperature 97.59 [degF] Peter Ellis MD Work Phone: [facility] 11-12-2023 14:30-0400 Diastolic blood pressure 72 mm[Hg] Peter Ellis MD Work Phone: [facility] 11-12-2023 14:30-0400 Heart rate 93 /min Peter Ellis MD Work Phone: [facility] 11-12-2023 14:30-0400 Respiratory rate 18 /min Peter Ellis MD Work Phone: [facility] 11-12-2023 14:30-0400 SaO2% (BldA) [Mass fraction] 100 % Peter Ellis MD Work Phone: [facility] 11-12-2023 14:30-0400 Systolic blood pressure 124 mm[Hg] Peter Ellis MD Work Phone: [facility] 08-16-2023 16:38-0500 Body temperature 98.3 [degF] Dr. Peter Ellis Work Phone: [facility] 08-16-2023 16:38-0500 Diastolic blood pressure 57 mm[Hg] Dr. Peter Ellis Work Phone: [facility] 08-16-2023 16:38-0500 Heart rate 75 /min Dr. Peter Ellis Work Phone: 0(856)241-557344 [place] [address] 08-16-2023 16:38-0500 Respiratory rate 16 /min Dr. Peter Ellis Work Phone: [facility] 08-16-2023 16:38-0500 SaO2% (BldA) [Mass fraction] 99 % Dr. Peter Ellis Work Phone: [facility] 08-16-2023 16:38-0500 Systolic blood pressure 118 mm[Hg] Dr. Peter Ellis Work Phone: [facility] 08-16-2023 04:40-0500 Body mass index (BMI) [Ratio] 27.6 kg/m2 Dr. Peter Ellis Work Phone: [facility] 08-16-2023 04:40-0500 Body weight 62.[address] Peter Ellis Work Phone: 6(481)789-881744 [place] [address] 08-15-2023 10:09-0500 Body height 149.[address] Peter Ellis Work Phone: 9(110)047-412244 [place] [address] 08-15-2023 01:21-0500 Body temperature 97.8 [degF] Dr. Peter Ellis Work Phone: 5(652)406-826330 [place] [address] 08-15-2023 01:21-0500 Diastolic blood pressure 68 mm[Hg] Dr. Peter Ellis Work Phone: 4(215)995-443630 [place] [address] 08-15-2023 01:21-0500 Heart rate 68 /min Dr. Peter Ellis Work Phone: 3(222)537-740230 [place] [address] 08-15-2023 01:21-0500 Respiratory rate 15 /min Dr. Peter Ellis Work Phone: 0(088)728-062730 [place] [address] 08-15-2023 01:21-0500 SaO2% (BldA) [Mass fraction] 95 % Dr. Peter Ellis Work Phone: 7(043)181-797930 [place] [address] 08-15-2023 01:21-0500 Systolic blood pressure 129 mm[Hg] Dr. Peter Ellis Work Phone: 9(582)838-771930 [place] [address] 08-15-2023 00:16-0500 Body mass index (BMI) [Ratio] 29 kg/m2 Dr. Peter Ellis Work Phone: 1(995)210-229930 [place] [address] 08-15-2023 00:16-0500 Body weight 65.[address] Peter Ellis Work Phone: 9(978)242-732630 [place] [address] 08-14-2023 22:23-0500 Body height 149.[address] Peter Ellis Work Phone: 1(755)170-461930 [place] [address] 08-12-2023 14:15-0500 Body temperature 99.1 [degF] Dr. Peter Ellis Work Phone: 9(905)785-957830 [place] [address] 08-12-2023 14:15-0500 Diastolic blood pressure 87 mm[Hg] Dr. Peter Ellis Work Phone: 8(589)382-431730 [place] [address] 08-12-2023 14:15-0500 Heart rate 88 /min Dr. Peter Ellis Work Phone: 3(563)264-291330 [place] [address] 08-12-2023 14:15-0500 Respiratory rate 16 /min Dr. Peter Ellis Work Phone: 7(942)982-716030 [place] [address] 08-12-2023 14:15-0500 SaO2% (BldA) [Mass fraction] 98 % Dr. Peter Ellis Work Phone: [facility] 08-12-2023 14:15-0500 Systolic blood pressure 112 mm[Hg] Dr. Peter Ellis Work Phone: [facility] 08-12-2023 12:58-0500 Body height 149.[address] Peter Ellis Work Phone: [facility] 08-12-2023 12:58-0500 Body weight 58.[address] Peter Ellis Work Phone: [facility] 08-09-2023 22:33-0500 Body mass index (BMI) [Ratio] 26.2 kg/m2 Dr. Peter Ellis Work Phone: [facility] 02-28-2023 14:23-0400 Body temperature 97.81 [degF] Peter Ellis MD Work Phone: [facility] 02-28-2023 14:23-0400 Body weight 64.86 kg Peter Ellis MD Work Phone: [facility] 02-28-2023 14:23-0400 Diastolic blood pressure 65 mm[Hg] Peter Ellis MD Work Phone: [facility] 02-28-2023 14:23-0400 Heart rate 115 /min Peter Ellis MD Work Phone: [facility] 02-28-2023 14:23-0400 Respiratory rate 18 /min Peter Ellis MD Work Phone: [facility] 02-28-2023 14:23-0400 SaO2% (BldA) [Mass fraction] 97 % Peter Ellis MD Work Phone: [facility] 02-28-2023 14:23-0400 Systolic blood pressure 104 mm[Hg] Peter Ellis MD Work Phone: [facility] 09-21-2022 17:26-0400 Respiratory rate 18 /min [facility] 09-21-2022 14:33-0400 SaO2% (BldA) [Mass fraction] 98 % [facility] 09-21-2022 14:24-0400 Body height 149.86 cm [facility] 09-21-2022 14:24-0400 Body mass index (BMI) [Ratio] 30.1 kg/m2 [facility] 09-21-2022 14:24-0400 Body temperature 98 [degF] [facility] 09-21-2022 14:24-0400 Body weight 67.69 kg [facility] 09-21-2022 14:24-0400 Diastolic blood pressure 62 mm[Hg] [facility] 09-21-2022 14:24-0400 Heart rate 88 /min [facility] 09-21-2022 14:24-0400 Systolic blood pressure 118 mm[Hg] [facility] 08-07-2022 13:10-0500 Body height 149.86 cm [facility] 08-07-2022 13:10-0500 Body mass index (BMI) [Ratio] 29.2 kg/m2 [facility] 08-07-2022 13:10-0500 Body temperature 97.2 [degF] [facility] 08-07-2022 13:10-0500 Body weight 65.77 kg [facility] 08-07-2022 13:10-0500 Diastolic blood pressure 91 mm[Hg] [facility] 08-07-2022 13:10-0500 Heart rate 91 /min [facility] 08-07-2022 13:10-0500 Respiratory rate 16 /min [facility] 08-07-2022 13:10-0500 SaO2% (BldA) [Mass fraction] 97 % [facility] 08-07-2022 13:10-0500 Systolic blood pressure 153 mm[Hg] [facility] 12-11-2021 14:27-0400 Body weight 68.95 kg Peter Ellis MD Work Phone: [facility] 12-11-2021 14:27-0400 Diastolic blood pressure 68 mm[Hg] Peter Ellis MD Work Phone: [facility] 12-11-2021 14:27-0400 Heart rate 96 /min Peter Ellis MD Work Phone: [facility] 12-11-2021 14:27-0400 SaO2% (BldA) [Mass fraction] 97 % Peter Ellis MD Work Phone: [facility] 12-11-2021 14:27-0400 Systolic blood pressure 120 mm[Hg] Peter Ellis MD Work Phone: [facility] Encounters Encounter Date Encounter Type Care Provider Facility Start: 03-03-2025 Evaluation and manag ement of inpatient Dr. Desiree Trent MD -Intensive Care Unit Work Phone: Start: 12-14-2024 ambulatory Peter Devan Mejiaampas Facilit y:[facility] Start: 12-14-[address] Juve Dejesus MD -[facility] Start: 10-26-2024 End: 10-26-2024 ambulatory Peter D Talampas Facility:[facility] Start: 09-20-2024 End: 09-20-[address] Peter Ellis MD Work Phone: [facility] Work Phone: Start: 09-20-2024 End: 09-20-[address] Darcy Elias MD -[facility] Start: 09-20-2024 End: 09-20-2024 ambulatory Peter D Talampas Facility:[facility] Start: 06-21-2024 ambulatory Peter D Talampas Facilit y:[facility] Start: 06-21-[address] Darcy Elias MD -[facility] Start: 03-22-2024 End: 03-22-2024 ambulatory Peter Devan Mejiaampas Facility:[facility] Start: 02-05-2024 End: 02-05-2024 ambulatory Clayton DUNAWAY Facility:[facility] Start: 11-25-2023 Telephone encounter Peter ortega MD Work Phone: [facility] Comment on above: Medication Problem Start: 11-14-2023 Telephone encounter Sherwin Simmons Start: 11-13-2023 Telephone encounter Peter ortega MD Work Phone: [facility] [place] Comment on above: Insurance Authorizat ion (pialr) Start: 11-12-2023 End: 11-12-2023 ambulatory PETER ELLIS Facility:[facility] Start: 11-12-2023 End: 11-12-2023 Office outpatient [...] Start: 10-31-2023 End: 10-31-2023 ambulatory ORIN SOSA Facility:[facility] Start: 09-05-2023 End: 09-05-[address] Peter Ellis Work Phone: [facility] Work Phone: Start: 09-05-2023 End: 09-05-[address] Peter Ellis Work Phone: [facility] Work Phone: Start: 08-27-2023 Telephone encounter Orin heredia APRN.[employer] Work Phone: [facility] [place] Comment on above: Results Start: 08-25-2023 End: 08-25-2023 ambulatory ORIN SOSA Facility:[facility] Start: 08-16-2023 Non-patient / Non-visit Dr. Isabela Ellis Work Phone: [facility] Work Phone: Start: 08-15-2023 End: 08-16-2023 Evaluation and management of inpatient [facility]. [facility] Work Phone: Start: 08-14-2023 Telephone encounter Peter ortega MD Work Phone: [facility] [place] Comment on above: SW Update Start: 08-13-2023 Patient Outreach Peter fierro MD Work Phone: [facility] [place] Comment on above: Transition Of Care [facility], verbal order Start: 08-12-2023 Non-patient / Non-visit Dr. Isabela Ellis Work Phone: [facility] Inpatient Physicians Work Phone: Start: 08-11-2023 Non-patient / Non-visit Dr. Isabela Ellis Work Phone: [facility] Inpatient Physicians Work Phone: Start: 08-11-2023 Telephone encounter Peter ortega MD Work Phone: [facility] [place] Comment on above: HH Verbal orders Start: 08-10-2023 Non-patient / Non-visit Dr. Isabela Ellis Work Phone: [facility] Inpatient Physicians Work Phone: Start: 08-09-2023 Non-patient / Non-visit Dr. Isabela Ellis Work Phone: [facility] Inpatient Physicians Work Phone: Start: 08-09-2023 End: 08-12-2023 Evaluation and management of inpatient [facility]. [facility] Phone: Start: 07-04-2023 End: 07-04-2023 ambulatory PETER ELLIS Facility:[facility] Start: 04-21-2023 Telephone encounter Sherwin BALLESTEROS Navigation Comment on above: pt assistance forms Start: 03-04-2023 Telephone encounter Sherwin Chinedu Simmons Start: 02-28-2023 End: 02-28-2023 Office outpatient visit 25 minutes Peter Ellis MD Work Phone: [facility] [place] Comment on above: Acquired hypothyroid ism (Primary Dx); Type 2 diabetes mellitus without complication, without long-term current use of insulin (HCC); Iron deficiency anemia, unspecified iron deficiency anemia type; B12 deficiency; Vitamin D deficiency; Encounter for long-term current use of medication Start: 02-28-2023 End: 02-28-2023 ambulatory PETER ELLIS Facility:[facility] Start: 02-13-2023 End: 02-13-2023 ambulatory PETER ELLIS Facility:[facility] Start: 02-10-2023 Telephone encounter Peter ortega MD Work Phone: [facility] [place] Comment on above: Patient Update Start: 09-21-2022 End: 09-21-2022 [facility] Start: 09-12-2022 Telephone encounter Jadon eden [facility] Work Phone: [facility] Comment on above: Adherence Packaging Start: 09-12-2022 End: 09-12-2022 ambulatory Jadonlyle Delgado [facility] Work Phone: [facility] Comment on above: Medication managemen t (Primary Dx); Type 2 diabetes mellitus without complication, without long-term current use of insulin (HCC); Hyperlipidemia, unspecified hyperlipidemia type Start: 09-12-2022 End: 09-12-2022 Telemedicine consultation with patient Jadon Delgado [facility] Work Phone: [facility] Start: 08-07-2022 End: 08-07-2022 [facility] Start: 07-25-2022 End: 07-25-2022 Patient encounter procedure Jadon Delgado [facility] Work Phone: [facility] Comment on [...] 06-20-2022 Patient encounter procedure Jadon Delgado [facility] Work Phone: [facility] Comment on above: Controlled type 2 di abetes mellitus without complication, without long-term current use of insulin (HCC) (Primary Dx); Medication management Start: 05-30-2022 Telephone encounter Jadon eden [facility] Work Phone: [facility] Comment on above: Forms ([employer] PAP Application renewal 2022) Start: 05-17-2022 Refill Peter martin MD Work Phone: [facility] [place] Comment on above: Refill Request Start: 04-29-2022 Telephone encounter Jadon eden [facility] Work Phone: [facility] Comment on above: Appointment Start: 04-16-2022 Telephone encounter Ceci Mehta on [facility] Comment on above: Primary Care Pharmac y Appt. Start: 01-09-2022 End: 01-09-2022 Patient encounter procedure Harsha Ortiz MD Work Phone: Ophthalmology Comment on above: Combined forms of ag e-related cataract of both eyes (Primary Dx); Type 2 diabetes mellitus without retinopathy (HCC); [id number] corneal dystrophy of both eyes Start: 12-11-2021 [...] Start: 09-19-2021 Telephone encounter Maciej Jessica [facility] Work Phone: [facility] Comment on [...] depression scr eening assessment Maciej Lopez [facility] Work Phone: Start: 03-20-2019 Electrocardiogram Plan of Treatment Date Care Activity Detail Author Start: 03-03-2025 [facility] Start: 03-03-2025 Admission procedure [facility] Start: 03-03-2025 Hospital admission, emergency, from emergency room, medical nature [facility] Start: 03-03-2025 Computed tomography of abdomen and pelvis with intravenous contrast Abdomen/Pelvis W IV Cont ONLY [facility] Start: 03-03-2025 Airway suction technique [facility] Start: 03-03-2025 Creatine kinase [Enz ymatic activity/volume] in Serum or Plasma [facility] Start: 03-03-2025 Triglycerides measurement [facility] Start: 03-03-2025 Consultation [facility] Start: 03-03-2025 End: 03-03-2025 [facility] Start: 03-03-2025 Bacteria identified in Blood by Culture Blood Culture [facility] Start: 03-03-2025 Bacteria identified in Urine by Culture Urine Culture [facility] Start: 03-03-2025 Microscopic observat ion [Identifier] in Unspecified specimen by Gram stain [facility] Start: 03-03-2025 Respiratory Culture Respiratory Cult ure [facility] Start: 03-03-2025 [facility] Start: 11-11-2024 Annual PCP Team [employer] Resource Internship debbie Disease Visit Annual PCP Team Chronic Disease Visit [facility] Start: 08-25-2024 Annual PCP Team Human Resource Internship debbie Disease Visit Annual PCP Team Chronic Disease Visit [facility] Start: 02-29-2024 ANNUAL PCP TEAM 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 DEBBIE DISEASE VISIT ANNUAL PCP TEAM CHRONIC DISEASE VISIT [facility] Start: 02-14-2024 Hepatitis B screening URINE ALBUMIN:CREATININE RATIO [facility] Start: 02-14-2024 Hepatitis B surface antibody level LDL CHOLESTEROL [facility] Start: 01-31-2024 Hemoglobin A1c measurement HbA1C [facility] Start: 11-23-2023 Hemoglobin A1c measurement HbA1C [facility] Start: 11-12-2023 End: 11-12-2023 Patient encounter procedure 11/12/2023 2:00 PM EDT Office Visit [facility] [address] [place], [place] [id number] Peter Ellis MD [address] [place], [place] [id number] 4 month follow up [facility] [place] Comment on above: 4 month follow up Start: 10-31-2023 End: 01-30-2024 Comprehensive metabolic 2000 panel - Serum or Plasma [facility] Work Phone: Comment on above: Expected: 10/31/2023 , Expires: 01/30/2024 Start: 10-31-2023 End: 01-30-2024 Ferritin [Mass/volume] in Serum or Plasma [facility] Comment on above: Expected: 10/31/2023 , Expires: 01/30/2024 Start: 10-31-2023 End: 01-30-2024 Hemoglobin A1c in Blood [facility] Comment on above: Expected: 10/31/2023 , Expires: 01/30/2024 Start: 10-31-2023 End: 01-30-2024 Iron and Iron binding capacity panel - Serum or Plasma [facility] Comment on above: Expected: 10/31/2023 , Expires: 01/30/2024 Start: 10-31-2023 End: 01-30-2024 Thyrotropin [Units/volume] in Serum or Plasma [facility] Comment on above: Expected: 10/31/2023 , Expires: 01/30/2024 Start: 10-31-2023 End: 01-30-2024 Thyroxine (T4) free [Mass/volume] in Serum or Plasma [facility] Comment on above: Expected: 10/31/2023 , Expires: 01/30/2024 Start: 10-31-2023 End: 01-30-2024 Triiodothyronine (T3) Free [Mass/volume] in Serum or Plasma [facility] Comment on above: Expected: 10/31/2023 , Expires: 01/30/2024 Start: 10-03-2023 Hemoglobin A1c measurement HbA1C [facility] Start: 08-16-2023 Patient discharge [facility] Start: 08-15-2023 Application of intermittent pneumatic compression device [facility] Start: 08-15-2023 Following clinical p athway protocol [facility] Start: 08-15-2023 Assessment of risk o f venous thromboembolism [facility] Start: 08-15-2023 Insertion of cathete r into peripheral vein [facility] Start: 08-15-2023 Measuring intake and output [facility] Start: 08-15-2023 Oxygen therapy [facility] Start: 08-15-2023 Providing care accor ding to standard [facility] Start: 08-15-2023 Provision of activit y privileges [facility] Start: 08-15-2023 Referral to occupati onal therapist [facility] Start: 08-15-2023 Referral to service [facility] Start: 08-15-2023 [facility] Start: 08-15-2023 Verification routine [facility] Start: 08-15-2023 Admission procedure [facility] Start: 08-15-2023 Hospital admission, emergency, from emergency room, medical nature [facility] Start: 08-15-2023 [facility] Start: 08-15-2023 Consultation [facility] Start: 08-14-2023 [facility] Start: 08-14-2023 Bacteria identified in Urine by Culture [facility] Start: 08-14-2023 Urine culture Urine Culture [facility] Start: 08-12-2023 Patient discharge [facility] Start: 08-12-2023 Referral to service [facility] Start: 08-11-2023 Administration of bl ood product [facility] Start: 08-11-2023 Referral to service [facility] Start: 08-09-2023 [facility] Start: 08-09-2023 [facility] Start: 08-09-2023 Following clinical p athway protocol [facility] Start: 08-09-2023 Ambulation without limitation [facility] Start: 08-09-2023 Assessment of risk o f venous thromboembolism [facility] Start: 08-09-2023 Care regimes management [facility] Start: 08-09-2023 Inhalation therapy procedure [facility] Start: 08-09-2023 Insertion of cathete r into peripheral vein [facility] Start: 08-09-2023 Notification of physician [facility] Start: 08-09-2023 Providing care accor ding to standard [facility] Start: 08-09-2023 Referral to occupati onal therapist [facility] Start: 08-09-2023 Referral to service [facility] Start: 08-09-2023 [facility] Start: 08-09-2023 Admission procedure [facility] Start: 08-09-2023 [facility] Start: 08-09-2023 Consultation [facility] Start: 08-09-2023 [facility] Start: 2023 End: 08-30-2023 25-hydroxyvitamin D3 [Mass/volume] in Serum or Plasma VITAMIN D 25 HYDROXY Lab Routine Vitamin D deficiency Expected: 2023 (Approximate), Expires: 08/30/2023 [facility] Work Phone: Comment on above: Expected: 2023 (Approximate), Expires: 08/30/2023 Start: 2023 Advance Directive Discussion Advance Directive Discussion [facility] Start: 2023 Behavioral Health Screening Behavioral Health Screening [facility] Start: 2023 End: 08-30-2023 CBC panel - Blood by Automated count CBC Lab Routine Encounter for long-term current use of medication Expected: 2023 (Approximate), Expires: 08/30/2023 [facility] Work Phone: Comment on above: Expected: 2023 (Approximate), Expires: 08/30/2023 Start: 2023 End: 08-30-2023 Comprehensive metabolic 2000 panel - Serum or Plasma COMP METABOLIC PANEL Lab Routine Encounter for long-term current use of medication Expected: 2023 (Approximate), Expires: 08/30/2023 [facility] Work Phone: Comment on above: Expected: 2023 (Approximate), Expires: 08/30/2023 Start: 2023 Depression Assessment Depression Ass essment [facility] Start: 2023 End: 08-30-2023 Hemoglobin A1c in Blood HGB A1C Lab Routine Type 2 diabetes mellitus without complication, without long-term current use of insulin (HCC) Expected: 2023 (Approximate), Expires: 08/30/2023 [facility] Work Phone: Comment on above: Expected: 2023 (Approximate), Expires: 08/30/2023 Start: 2023 End: 08-30-2023 Thyrotropin [Units/volume] in Serum or Plasma TSH BLD Lab Routine Acquired hypothyroidism Expected: 2023 (Approximate), Expires: 08/30/2023 [facility] Work Phone: Comment on above: Expected: 2023 (Approximate), Expires: 08/30/2023 Start: 2023 End: 08-30-2023 Thyroxine (T4) free [Mass/volume] in Serum or Plasma T4 FREE/FREE THYROX Lab Routine Acquired hypothyroidism Expected: 2023 (Approximate), Expires: 08/30/2023 [facility] Work Phone: Comment on above: Expected: 2023 (Approximate), Expires: 08/30/2023 Start: 2023 End: 08-30-2023 Triiodothyronine (T3) Free [Mass/volume] in Serum or Plasma T3 FREE BLD Lab Routine Acquired hypothyroidism Expected: 2023 (Approximate), Expires: 08/30/2023 [facility] Work Phone: Comment on above: Expected: 2023 (Approximate), Expires: 08/30/2023 Start: 05-16-2023 Hemoglobin A1c/Hemoglobin.total in Blood HBA1C [facility] Start: 04-15-2023 ANNUAL PCP TEAM L[employer] LABORER 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 DISEASE VISIT ANNUAL PCP TEAM CHRONIC DISEASE VISIT [facility] Start: 03-28-2023 End: 05-28-2023 CBC W Auto Differential panel - Blood CBC + DIFF Lab Routine Iron deficiency anemia, unspecified iron deficiency anemia type Expected: 03/28/2023 (Approximate), Expires: 05/28/2023 [facility] Work Phone: Comment on above: Expected: 03/28/2023 (Approximate), Expires: 05/28/2023 Start: 03-28-2023 End: 05-28-2023 Cobalamin (Vitamin B12) [Mass/volume] in Serum or Plasma VITAMIN B12 BLOOD Lab Routine B12 deficiency Expected: 03/28/2023 (Approximate), Expires: 05/28/2023 [facility] Work Phone: Comment on above: Expected: 03/28/2023 (Approximate), Expires: 05/28/2023 Start: 03-28-2023 End: 05-28-2023 Ferritin [Mass/volume] in Serum or Plasma FERRITIN BLD Lab Routine Iron deficiency anemia, unspecified iron deficiency anemia type Expected: 03/28/2023 (Approximate), Expires: 05/28/2023 [facility] Work Phone: Comment on above: Expected: 03/28/2023 (Approximate), Expires: 05/28/2023 Start: 03-28-2023 End: 05-28-2023 Iron and Iron binding capacity panel - Serum or Plasma IRON + TIBC Lab Routine Iron deficiency anemia, unspecified iron deficiency anemia type Expected: 03/28/2023 (Approximate), Expires: 05/28/2023 [facility] Work Phone: Comment on above: Expected: 03/28/2023 (Approximate), Expires: 05/28/2023 Start: 02-28-2023 Covid-19 Vaccine ( season) Covid-19 Vaccine ( season) [facility] Start: 02-28-2023 Influenza vaccination [facility] Start: 02-12-2023 End: 04-14-2023 ALBUMIN/CREAT RATIO RND UR ALBUMIN/CREAT RATIO RND UR Lab Routine Uncontrolled type 2 diabetes mellitus with hyperglycemia (HCC) Expected: 02/12/2023, Expires: 04/14/2023 [facility] Work Phone: Comment on above: Expected: 02/12/2023 , Expires: 04/14/2023 Start: 02-12-2023 End: 04-14-2023 Cobalamin (Vitamin B12) [Mass/volume] in Serum or Plasma VITAMIN B12 BLOOD Lab Routine B12 deficiency Expected: 02/12/2023, Expires: 04/14/2023 [facility] Work Phone: Comment on above: Expected: 02/12/2023 , Expires: 04/14/2023 Start: 02-12-2023 End: 04-14-2023 Comprehensive metabolic 2000 panel - Serum or Plasma COMP METABOLIC PANEL Lab Routine Uncontrolled type 2 diabetes mellitus with hyperglycemia (HCC) Expected: 02/12/2023, Expires: 04/14/2023 [facility] Work Phone: Comment on above: Expected: 02/12/2023 , Expires: 04/14/2023 Start: 02-12-2023 End: 04-14-2023 Ferritin [Mass/volume] in Serum or Plasma FERRITIN BLD Lab Routine Iron deficiency anemia, unspecified iron deficiency anemia type Expected: 02/12/2023, Expires: 04/14/2023 [facility] Work Phone: Comment on above: Expected: 02/12/2023 , Expires: 04/14/2023 Start: 02-12-2023 End: 04-14-2023 Folate [Mass/volume] in Serum or Plasma FOLATE SERUM Lab Routine B12 deficiency Iron deficiency anemia, unspecified iron deficiency anemia type Expected: 02/12/2023, Expires: 04/14/2023 [facility] Work Phone: Comment on above: Expected: 02/12/2023 , Expires: 04/14/2023 Start: 02-12-2023 End: 04-14-2023 Hemoglobin A1c in Blood HGB A1C Lab Routine Uncontrolled type 2 diabetes mellitus with hyperglycemia (HCC) Expected: 02/12/2023, Expires: 04/14/2023 [facility] Work Phone: Comment on above: Expected: 02/12/2023 , Expires: 04/14/2023 Start: 02-12-2023 End: 04-14-2023 Iron and Iron binding capacity panel - Serum or Plasma IRON + TIBC Lab Routine Iron deficiency anemia, unspecified iron deficiency anemia type Expected: 02/12/2023, Expires: 04/14/2023 [facility] Work Phone: Comment on above: Expected: 02/12/2023 , Expires: 04/14/2023 Start: 02-12-2023 End: 04-14-2023 Lipid 1996 panel - Serum or Plasma LIPID PANEL BASIC Lab Routine Hyperlipidemia, unspecified hyperlipidemia type Uncontrolled type 2 diabetes mellitus with hyperglycemia (HCC) Expected: 02/12/2023, Expires: 04/14/2023 [facility] Work Phone: Comment on above: Expected: 02/12/2023 , Expires: 04/14/2023 Start: 02-12-2023 End: 04-14-2023 Thyrotropin [Units/volume] in Serum or Plasma TSH BLD Lab Routine Acquired hypothyroidism Expected: 02/12/2023, Expires: 04/14/2023 [facility] Work Phone: Comment on above: Expected: 02/12/2023 , Expires: 04/14/2023 Start: 02-12-2023 End: 04-14-2023 Thyroxine (T4) free [Mass/volume] in Serum or Plasma T4 FREE/FREE THYROX Lab Routine Acquired hypothyroidism Expected: 02/12/2023, Expires: 04/14/2023 [facility] Work Phone: Comment on above: Expected: 02/12/2023 , Expires: 04/14/2023 Start: 02-12-2023 End: 04-14-2023 Triiodothyronine (T3) Free [Mass/volume] in Serum or Plasma T3 FREE BLD Lab Routine Acquired hypothyroidism Expected: 02/12/2023, Expires: 04/14/2023 [facility] Work Phone: Comment on above: Expected: 02/12/2023 , Expires: 04/14/2023 Start: 12-11-2022 ANNUAL PCP TEAM L[employer] LAB[employer]ER DEBBIE DISEASE VISIT ANNUAL PCP TEAM CHRONIC DISEASE VISIT [facility] Start: 12-06-2022 Hepatitis B surface antibody level LDL CHOLESTEROL [facility] Start: 09-21-2022 CT of head without contrast Brain/Head without Contrast [facility] Start: 09-21-2022 CT Unspecified body region WO contrast [facility] Start: 09-12-2022 End: 11-12-2022 Hemoglobin A1c in Blood HGB A1C Lab Routine Type 2 diabetes mellitus without complication, without long-term current use of insulin (HCC) Expected: 09/12/2022, Expires: 11/12/2022 [facility] Work Phone: Comment on above: Expected: 09/12/2022 , Expires: 11/12/2022 Start: 09-12-2022 End: 11-12-2022 Thyrotropin [Units/volume] in Serum or Plasma TSH BLD Lab Routine Acquired hypothyroidism Expected: 09/12/2022, Expires: 11/12/2022 [facility] Work Phone: Comment on above: Expected: 09/12/2022 , Expires: 11/12/2022 Start: 08-16-2022 COVID-19 VACCINE (5 - Pfizer series) COVID-19 VACCINE (5 - Pfizer series) [facility] Start: 08-13-2022 Adult depression scr eening assessment DEPRESSION SCREENING [facility] Start: 08-13-2022 ANNUAL PCP TEAM [employer] LABORER 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 DISEASE VISIT ANNUAL PCP TEAM CHRONIC DISEASE VISIT [facility] Start: 08-08-2022 End: 10-08-2022 ALBUMIN/CREAT RATIO RND UR ALBUMIN/CREAT RATIO RND UR Lab Routine Type 2 diabetes mellitus without complication, without long-term current use of insulin (HCC) Expected: 08/08/2022, Expires: 10/08/2022 [facility] Work Phone: Comment on above: Expected: 08/08/2022 , Expires: 10/08/2022 Start: 08-08-2022 End: 10-08-2022 Basic metabolic 2000 panel - Serum or Plasma BASIC METABOLIC PNL Lab Routine Type 2 diabetes mellitus without complication, without long-term current use of insulin (HCC) Expected: 08/08/2022, Expires: 10/08/2022 [facility] Work Phone: Comment on above: Expected: 08/08/2022 , Expires: 10/08/2022 Start: 08-08-2022 Hepatitis B screening URINE ALBUMIN:CREATININE RATIO [facility] Start: 07-04-2022 End: 09-03-2022 Hemoglobin A1c in Blood HGB A1C Lab Routine Controlled type 2 diabetes mellitus without complication, without long-term current use of insulin ([facility]) Expected: 07/04/2022, Expires: 09/03/2022 [facility] Work Phone: Comment on above: Expected: 07/04/2022 , Expires: 09/03/2022 Start: 07-04-2022 Hemoglobin A1c/Hemoglobin.total in Blood HBA1C [facility] Start: 2022 ADVANCE DIRECTIVE DISCUSSION ADVANCE DIRECTIVE DISCUSSION [facility] Start: 2022 DEPRESSION ASSESSMENT DEPRESSION ASS ESSMENT [facility] Start: 04-12-2022 End: 06-12-2022 CBC panel - Blood by Automated count CBC Lab Routine Iron deficiency anemia, unspecified iron deficiency anemia type Expected: 04/12/2022 (Approximate), Expires: 06/12/2022 [facility] Work Phone: Comment on above: Expected: 04/12/2022 (Approximate), Expires: 06/12/2022 Start: 04-12-2022 End: 06-12-2022 Cobalamin (Vitamin B12) [Mass/volume] in Serum or Plasma VITAMIN B12 BLOOD Lab Routine B12 deficiency Expected: 04/12/2022 (Approximate), Expires: 06/12/2022 [facility] Work Phone: Comment on above: Expected: 04/12/2022 (Approximate), Expires: 06/12/2022 Start: 04-12-2022 End: 06-12-2022 Comprehensive metabolic 2000 panel - Serum or Plasma COMP METABOLIC PANEL Lab Routine Uncontrolled type 2 diabetes mellitus with hyperglycemia (HCC) Expected: 04/12/2022 (Approximate), Expires: 06/12/2022 [facility] Work Phone: Comment on above: Expected: 04/12/2022 (Approximate), Expires: 06/12/2022 Start: 04-12-2022 End: 06-12-2022 Hemoglobin A1c in Blood HGB A1C Lab Routine Uncontrolled type 2 diabetes mellitus with hyperglycemia (HCC) Expected: 04/12/2022 (Approximate), Expires: 06/12/2022 [facility] Work Phone: Comment on above: Expected: 04/12/2022 (Approximate), Expires: 06/12/2022 Start: 04-12-2022 End: 06-12-2022 Iron and Iron binding capacity panel - Serum or Plasma IRON + TIBC Lab Routine Iron deficiency anemia, unspecified iron deficiency anemia type Expected: 04/12/2022 (Approximate), Expires: 06/12/2022 [facility] Work Phone: Comment on above: Expected: 04/12/2022 (Approximate), Expires: 06/12/2022 Start: 04-12-2022 End: 06-12-2022 Thyrotropin [Units/volume] in Serum or Plasma TSH BLD Lab Routine Acquired hypothyroidism Expected: 04/12/2022 (Approximate), Expires: 06/12/2022 [facility] Work Phone: Comment on above: Expected: 04/12/2022 (Approximate), Expires: 06/12/2022 Start: 04-12-2022 End: 06-12-2022 Thyroxine (T4) free [Mass/volume] in Serum or Plasma T4 FREE/FREE THYROX Lab Routine Acquired hypothyroidism Expected: 04/12/2022 (Approximate), Expires: 06/12/2022 [facility] Work Phone: Comment on above: Expected: 04/12/2022 (Approximate), Expires: 06/12/2022 Start: 04-03-2022 Glaucoma screening Dilated Retinal E xam [facility] Start: 04-03-2022 Hepatitis C antibody , confirmatory test DILATED RETINAL EXAM [facility] Start: 03-08-2022 Hemoglobin A1c/Hemoglobin.total in Blood HBA1C [facility] Start: 02-28-2022 Influenza vaccination INFLUENZA (#1) [facility] Start: 01-19-2022 3 comp foot exam completed DIABETIC FOOT EXAM [facility] Start: 01-19-2022 Diabetic foot examination Diabetic F oot Exam [facility] Start: 01-19-2022 Urine microalbumin profile DTA P,TDAP,TD (2 - Td or Tdap) [facility] Comment on above: Postponed from 02/24 (Declined at this time) Start: 11-05-2021 Hemoglobin A1c/Hemoglobin.total in Blood HBA1C [facility] Start: 09-21-2021 Hepatitis B surface antibody level LDL CHOLESTEROL [facility] Start: 09-15-2021 COVID-19 VACCINE (4 - Booster for Pfizer series) COVID-19 VACCINE (4 - Booster for Pfizer series) [facility] Start: 2021 ADVANCE DIRECTIVE DISCUSSION ADVANCE DIRECTIVE DISCUSSION [facility] Start: 2021 DEPRESSION ASSESSMENT DEPRESSION ASS ESSMENT [facility] Start: 02-24-2017 Urine microalbumin profile [facility] Start: 2003 Hepatitis B Vaccine (1 of 3 - Risk 3-dose series) Hepatitis B Vaccine (1 of 3 - Risk 3-dose series) [facility] Start: 2003 RSV Vaccine (1 - 1-d ose 60+ series) RSV Vaccine (1 - 1-dose 60+ series) [facility] ALBUMIN/CREAT RATIO RND UR ALBUM IN/CREAT RATIO RND UR Lab Routine Uncontrolled type 2 diabetes mellitus with hyperglycemia (HCC) 02/13/2023 9:53 AM EDT [facility] Work Phone: Bacteria identified in Sputum by Respiratory culture [facility] Cobalamin (Vitamin B 12) [Mass/volume] in Serum or Plasma VITAMIN B12 BLOOD Lab Routine B12 deficiency 02/13/2023 9:53 AM EDT [facility] Work Phone: Comprehensive metabo lic 2000 panel - Serum or Plasma COMP METABOLIC PANEL Lab Routine Uncontrolled type 2 diabetes mellitus with hyperglycemia (HCC) 02/13/2023 9:53 AM [facility] Work Phone: Ferritin [Mass/volum e] in Serum or Plasma FERRITIN BLD Lab Routine Iron deficiency anemia, unspecified iron deficiency anemia type 02/13/2023 9:53 AM [facility] Work Phone: Folate [Mass/volume] in Serum or Plasma FOLATE SERUM Lab Routine B12 deficiency Iron deficiency anemia, unspecified iron deficiency anemia type 02/13/2023 9:53 AM [facility] Work Phone: Hemoglobin A1c in Blood HGB A1C Lab Routine Uncontrolled type 2 diabetes mellitus with hyperglycemia (HCC) 02/13/2023 9:53 AM [facility] Work Phone: Iron and Iron bindin g capacity panel - Serum or Plasma IRON + TIBC Lab Routine Iron deficiency anemia, unspecified iron deficiency anemia type 02/13/2023 9:53 AM [facility] Work Phone: Lipid 1996 panel - S edgardo or Plasma LIPID PANEL BASIC Lab Routine Hyperlipidemia, unspecified hyperlipidemia type Uncontrolled type 2 diabetes mellitus with hyperglycemia (HCC) 02/13/2023 9:53 AM [facility] Work Phone: Patient Education ED Head Injury (Adult) [facility] Work Phone: Patient referral [facility] Work Phone: Thyrotropin [Units/v olume] in Serum or Plasma TSH BLD Lab Routine Acquired hypothyroidism 02/13/2023 9:53 AM [facility] Work Phone: Thyroxine (T4) free [Mass/volume] in Serum or Plasma T4 FREE/FREE THYROX Lab Routine Acquired hypothyroidism 02/13/2023 9:53 AM [facility] Work Phone: Triiodothyronine (T3 ) Free [Mass/volume] in Serum or Plasma T3 FREE BLD Lab Routine Acquired hypothyroidism 02/13/2023 9:53 AM [facility] Work Phone: Troponin T.cardiac [Mass/volume] in Serum or Plasma by High sensitivity method [facility] Troponin T.cardiac [Mass/volume] in Serum or Plasma by High sensitivity method [facility] Urine culture [place] End: 09-25-2024 US Abdomen RUQ US ABD RIGHT UPPER QUADRANT Radiology Routine Elevated LFTs 1 Occurrences starting 08/27/2023 until 09/25/2024 [facility] Work Phone: Comment on above: 1 Occurrences starti ng 08/27/2023 until 09/25/2024 [facility] Immunizations Immunization Date Immunization Notes Care Provider Martin spear 12-09-2023 Covid (Spikevax) Dr. Petre hernandez MD Work Phone: [facility] 08-10-2023 Influenza High-Dose Quadrivalent Dr. Peter Ellis Work Phone: [facility] 09-21-2022 tetanus toxoid, redu cynthia diphtheria toxoid, and acellular pertussis vaccine, adsorbed [facility] 04-15-2022 COVID-19 booster vaccine, age 12+ yr, bivalent (PFIZER-BIONTPhonethics [employer] Media) Ceci Mancilla [place] 04-15-2022 influenza, high-dose , quadrivalent vaccine (FLUZONE HIGH DOSE QUADRIVALENT) Ceci Mancilla [place] 04-15-2022 influenza virus vacc ine, unspecified formulation Peter Ellis MD Work Phone: [facility] 05-18-2021 Covid (Pf[facility] 05-18-2021 zoster vaccine recombinant Maciej Lopez [facility] Work Phone: [facility] Work Phone: 03-15-2021 influenza, injectabl e, quadrivalent, preservative free Dr. Peter Ellis Work Phone: [facility] 03-15-2021 zoster vaccine recombinant [facility] Work Phone: [facility] Work Phone: 10-03-2020 COVID-19 vaccine, ag e 12+ yr (PFIZER-BIONTECH - PURPLE TOP) [facility] Work Phone: [facility] Work Phone: 09-12-2020 COVID-19 vaccine, ag e 12+ yr (PFIZER-BIONTECH - PURPLE TOP) [facility] Work Phone: [facility] Work Phone: 03-28-2020 influenza, high-dose , quadrivalent vaccine (FLUZONE HIGH DOSE QUADRIVALENT) [facility] Work Phone: [facility] Work Phone: 03-31-2019 influenza, high dose seasonal, preservative-free [facility] Work Phone: [facility] Work Phone: 03-31-2019 Influenza, injectabl e, Madin Chasity Canine Kidney, preservative free, quadrivalent Dr. Peter Ellis Work Phone: [facility] 02-27-2018 influenza, seasonal, injectable [facility] Work Phone: [facility] Work Phone: 02-27-2018 Seasonal trivalent influenza vaccine, adjuvanted, preservative free Dr. Peter Ellis Work Phone: [facility] 03-06-2017 Influenza, high dose seasonal Dr. Peter Ellis MD Work Phone: [facility] 03-06-2017 influenza, high dose seasonal, preservative-free [facility] Work Phone: [facility] 03-23-2016 influenza, high dose seasonal, preservative-free [facility] Work Phone: [facility] 03-23-2016 influenza, injectabl e, quadrivalent, preservative free Dr. Peter Ellis Work Phone: [facility] 03-15-2015 pneumococcal conjuga te vaccine, 13 valent [facility] Work Phone: [facility] 03-08-2015 influenza, seasonal, [facility]able [facility] Work Phone: 03-08-2015 Seasonal, quadrivale nt, recombinant, injectable influenza vaccine, preservative free Dr. Peter Ellis Work Phone: [facility] 03-05-2014 influenza, injectabl e, quadrivalent, preservative free Dr. Peter Ellis Work Phone: [facility] 03-05-2014 influenza, seasonal, injectable Keti [facility] Work Phone: [facility] 05-21-2013 typhoid vaccine, unspecified formulation [facility] Work Phone: [facility] Work Phone: 05-03-2013 zoster vaccine, live Keti [facility] Work Phone: [facility] Work Phone: 04-08-2013 influenza virus vacc ine, unspecified formulation Keti [facility] Work Phone: [facility] Work Phone: 04-05-2013 influenza virus vacc ine, unspecified formulation Keti [facility] Work Phone: [facility] 03-22-2013 hepatitis A vaccine, adult dosage Dr. Peter Ellis Work Phone: [facility] 03-22-2013 hepatitis A vaccine, unspecified formulation [facility] Work Phone: [facility] Work Phone: 03-04-2012 pneumococcal polysaccharide vaccine, 23 valent [facility] Work Phone: [facility] 02-24-2007 hepatitis A vaccine, adult dosage [facility] Work Phone: [facility] 02-24-2007 tetanus toxoid, redu cynthia diphtheria toxoid, and acellular pertussis vaccine, adsorbed [facility] Work Phone: [facility] 02-24-[address] Peter Ellis Work Phone: [facility] 03-17-2000 measles, mumps and rubella virus vaccine [facility] Work Phone: [facility] Payers Date Payer Category Payer Medicaid [id number] 2024 Medicare [id number] 2024 Unknown [id number] 2024 Self-pay [id number] 2022 Unknown [id number] 2021 Medicare AETNA MEDICARE A ETNA MEDICARE PPO [id number] 2021-Present [phone] [address] [place] [address] O [id number] 2021 Medicare [id number] 2005 Unknown ANTHEM [id number] Medicare UHC MEDICARE ADVANTAGE [id number] Private Health Insurance [facility] [id number] Unknown [id number] Unknown [id number] Unknown [id number] Unknown [id number] Unknown [id number] Unknown [id number] Social History Date Type Detail Facility Start: 11-29-2011 End: 03-03-2025 Tobacco smoking status NHIS Never smoked tobacco [facility] Work Phone: Start: 08-22-2021 End: 11-12-2023 Alcohol intake Current non-drinker of alcohol (finding) [facility] Start: 08-30-2019 History SDOH Alcohol Frequency 1 [facility] Start: 08-30-2019 History SDOH Social Connections Phone 4 [facility] Start: 08-30-2019 History SDOH Social Connections Get Together 2 [facility] Start: 08-30-2019 History SDOH Physica l Activity DPW 0 [facility] Start: 08-30-2019 History SDOH Financial 3 [facility] Start: 08-30-2019 Education 17 [facility] Start: 1945 Sex Assigned At Not on file [facility] Start: 12-30-2021 End: 04-15-2022 Exposure to SARS-CoV-2 (event) Not sure [facility] Start: 11-29-2011 Tobacco use and exposure Smoke less tobacco non-user [facility] Start: 05-28-2019 End: 08-15-2023 Tobacco smoking status NHIS Unknown if ever smoked [facility] Start: 04-16-2019 None [facility] Start: 04-16-2019 Alone [facility] Start: 05-28-2019 Non-smoker [facility] Start: 1945 Sex Assigned At Female [facility] Start: 08-30-2019 End: 02-28-2023 History of [facility] Start: 08-30-2019 End: 02-28-2023 Social connection and isolation panel [facility] Do you belong to any clubs or organizations such as rastafari groups, unions, fraternal or athletic groups, or school groups? No [facility] Are you now , , , , never or living with a partner? [facility] How often to you hav e a drink containing alcohol? Never [facility] Average Number of Drinks Not on file [facility] Work Phone: How hard is it for y ou to pay for the very basics like food, housing, medical care, and heating Somewhat hard [facility] Do you feel stress - tense, restless, nervous, or anxious, or unable to sleep at night because your mind is troubled all the time - these days [OSQ] Only a little [facility] (I/We) worried carlin er (my/our) food would run out before (I/we) got money to buy more. Never true [facility] Start: 10-14-2024 Sex Female (finding) [facility] Medical Equipment Procedure Code Equipment Code Equipment Original Text Equipment Identifier Dates Mrkr 8ga Site Mamrk Brst[employer] - [id number] Start: 02-22-2013 [id number], [id number] Start: 01-10-2021 Comment on above: Test blood sugar(s) 2 times daily. Dx: Type 2 DM - Controlled E11.9 Insulin: No Test blood sugar(s) 2 daily. Dx: E11.9 Insulin: No Goals Date Patient Goal Desired Activity /State Functional Status Date Assessment Result Facility 08-16-2023 Functional status Chair [facility] Work Phone: 08-12-2023 Functional status Ambulates [facility] Work Phone: 08-11-2023 Functional status Tolerates Activity Well [facility] Work Phone: Mental Status Date Assessment Result Facility 08-16-2023 Cognitive function Appropriate;Baldemar pardo [facility] Work Phone: 08-15-2023 Cognitive function Level Of Cons ciousness Awake;Alert;Appropriate [facility] Work Phone: 08-12-2023 Cognitive function Voice/Name [facility] Work Phone: 08-12-2023 Cognitive function Cooperative [facility] Work Phone: 08-11-2023 Cognitive function Comprehension Ability Demonstrates ability to follow instructions/comprehend [facility] Work Phone: 08-10-2023 Cognitive function Memory Description Int act [facility] Work Phone: Clinical Notes 01-25-2016 to 03-03-2025 Telephone Encounter - Renetta Abernathy LPN - 12/04/2023 2:09 PM EDTTelephone Encounter - Renetta Abernathy LPN - 12/04/2023 2:09 PM EDTTelephone Encounter - Steve Aaron - 12/03/2023 9:42 AM EDT Note Date & Type Note Facility 03-03-2025 Radiology Diagnostic study note [facility] Imaging Services [address], [place] [address] Chest 1 View (Portable) MR#: [id number] Acct: [id number] Name: STEVE VIEIRA Rep #: [id number] : 1945 F 79 From: Misha Toth MD PCP: Dr. Peter Ellis MD Status: RE G ER Study:Chest 1 View (Portable) Date of Exam: 03/03/25 Exam# [id number] Ordering Dr: Carlo Laurent MD PROCEDURE: CHEST [...] pulled back approximately 2 cm. Reading [id number] CC: Dr. Frieda Lauretn MD; Dr. Peter Ellis MD ~ Lead Relay Tester: Signed [facility] 12-04-2023 Telephone encount er Note Pt has been admitted to [facility]. See ER and H&P note. [facility] 12-04-2023 Miscellaneous Notes Formattin g of this note might be different from the original. Pt has been admitted to [facility]. See ER and H&P note. 1st call attempt, left vm Let me know if needs a referral. I don't think Medicare requires a referral Spoke with patient and she is not opposed to seeing Mitzy Neves. Please call patient to schedule. Does this require a referral to see him? Have patient come in for DM teaching--see if can get in with special education paraeducator or ANTIQUE CLOCK REPAIRER/PAS to help with use of CGM as well as help with DM education. Naye with [facility] calls to report that pt was [...] Alta Ortiz LPN documented in this encounter [facility] 12-03-2023 Telephone encount er Note 1st call attempt, left vm [facility] 11-28-2023 Telephone encount er Note Let me know if needs a referral. I don't think Medicare requires a referral [facility] 11-28-2023 Telephone encount er Note Spoke with patient and she is not opposed to seeing Mitzy Neves. Please call patient to schedule. Does this require a referral to see him? [facility] 11-26-2023 Telephone encount er Note Have patient come in for DM teaching--see if can get in with special education paraeducator or ANTIQUE CLOCK REPAIRER/PAS to help with use of CGM as well as help with DM education. [facility] 11-25-2023 Telephone encount er Note Naye with [facility] calls to report that pt was [...] will be helping pt. Alta Ortiz LPN [facility] 11-20-2023 Telephone encount er Note Lesil spoke with patient in regards to asking son Salomón to reach out to TREVA Wang. Abbi says she can tell Salomón, but she will call Felipe herself to discuss home care service needs. Abbi read TREVA Hernandez direct number and patient notes that she will reach out to TREVA Wang for assistance. [facility] 11-20-2023 Miscellaneous Notes Formattin g of [...] application was never submitted to court. Patient eli Lorenzana did not sign application, which would [...] returns Sw call. documented in this encounter [facility] 11-19-2023 Telephone encount er Note Lesli [...] would need set up in the home. [facility] 11-14-2023 Telephone encount er Note Lesli left message for patient to return SW call to discuss home care needs. Lesli does not see any mention of status of guardianship appointment for patient. Sw will discuss further with patient and when she returns Sw call. [facility] 11-14-2023 Telephone encount er Note Faxed completed signed last OV note from 11/12/23 to [place] Department with [employer] fax # [phone]. [facility] 11-14-2023 Miscellaneous Notes Formattin g of this note might be different from the original. Faxed completed signed last OV note from 11/12/23 to [place] Department with [employer] fax # [phone]. Faxed office notes/A1c values with additonal question form Loan Johnston MA Ethan with the PA Department with [employer] called and reports they need the notes regarding the [employer] Pilar. I let him know that they needed to be signed and as soon as the provider does this we would fax them to # [phone]. documented in this encounter [facility] 11-14-2023 Note HNO ID: [id number] Author: ORIN SOSA APRN.MELISSA Service: ? Author Type: Nurse Practitioner Type: Progress Notes Filed: 11/14/2023 07:13 Note Text: Sherwin I filled out the paper work for emergency guardianship and Felipe was going to take over from there. You are correct, the son was willing to be guardian and APS was going to help facilitate that. [facility] 11-14-2023 History of Presen t illness Narrative Sherwin I filled out the paper work for emergency guardianship and Felipe was going to take over from there. You are correct, the son was willing to be guardian and APS was going to help facilitate that. This note was created using [employer]ter. Subjective Steve Vieira is a 78 year [...] walking from home to her appointment. [employer]. Has cat. States trying to Was at [...] wants her to move where they are ([place] Has a friend who lives [place]--prefers to move there. Kids were here after when she was transferred to [facility] then had to go back to their homes. Not sure about her meds but gets from [place]. Wants CGM so can check sugars. Feet [...] subcutaneously one time a week. Gets through [employer] PAP. levothyroxine (SYNTHROID) 25 mcg tablet Take 1 tablet by mouth every Friday,Friday,Friday. Take on empty stomach. For thyroid. Add to the levothyroxine 50 mcg once daily dosing but just on Fri-Fri-Fri empagliflozin (JARDIANCE) 25 mg tablet Take 1 tablet by mouth daily with breakfast. Gets through [employer] PAP. ferrous sulfate 325 mg (65 mg [...] Lymph 1.00 - 4.00 k/uL 1.20 1.23 Fountain% % 6.4 7.8 Abs Fountain <0.87 k/uL 0.34 0.36 Eosin% % 1.7 [...] need to be in assisted living or penitentiary if not adequate help to stay home [...] Peter Ellis MD documented in this encounter [facility] 11-13-2023 Telephone encount er Note Faxed office notes/A1c values with additonal question form Loan Johnston MA [facility] 11-13-2023 Telephone encount er Note Ethan with the PA Department with [employer] called and reports they need the notes regarding the Free Style Pilar. I let him know that they needed to be signed and as soon as the provider does this we would fax them to # [phone]. [facility] 11-12-2023 Note HNO ID: [id number] Author: PETER ELLIS MD Service: ? Author Type: Physician Type: Progress Notes Filed: 11/14/2023 09:10 Note Text: This note was created using [employer]. Subjective Steve Vieira is a 78 year [...] wants her to move where they are ([place]). Has a friend who lives [place]--prefers to move there. Kids were here after when she was transferred to [facility] then had to go back to their homes. Not sure about her meds but gets from [place]. Wants CGM so can check sugars. Feet [...] subcutaneously one time a week. Gets through [employer] PAP. levothyroxine (SYNTHROID) 25 mcg tablet Take 1 tablet by mouth every Friday,Friday,Friday. Take on empty stomach. For thyroid. Add to the levothyroxine 50 mcg once daily dosing but just on Fri-Fri-Fri empagliflozin (JARDIANCE) 25 mg tablet Take 1 tablet by mouth daily with breakfast. Gets through [employer] PAP. ferrous sulfate 325 mg (65 mg [...] Abs Neut (ANC) (more content not included)... [facility] 10-31-2023 Telephone encount er Note Labs in process [facility] 10-31-2023 Miscellaneous Notes Formattin g of this note might be different from the original. Labs in process Please let lab know orders placed. Patient here to have labs drawn for OV with PCP on 11/12/23. Waiting down front and can call [facility] at ext [phone] to update pt. Last OV 08/25/23 with labs done then. Roula Woodall LPN documented in this encounter [facility] 10-31-2023 Telephone encount er Note Please let lab know orders placed. [facility] 10-31-2023 Telephone encount er Note Patient here to have labs drawn for OV with PCP on 11/12/23. Waiting down front and can call Julia at ext [phone] to update pt. Last OV 08/25/23 with labs done then. Roula Woodall LPN [facility] 08-27-2023 Miscellaneous Notes Formattin g of [...] may prefer to have this done at [facility] since transportation is an issue. Please see where she would like to do this and if preference is [facility] then fax order. Thanks. documented in this encounter [facility] 08-25-2023 Note HNO ID: [id number] Author: ORIN SOSA APRN.MELISSA Service: ? Author Type: Nurse Practitioner Type: Progress Notes Filed: 08/25/2023 12:56 Note Text: SUBJECTIVE Steve Vieira is a 78 year old female here today for a check up on her medical problems. Chief Complaint Patient [facility] with: [facility] follow [facility] - UTI HPI Steve Vieira is a 78 year old female. She is an established patient of Peter Ellis MD. Here today for follow up, she is a poor historian. Recently seen at [facility] on 08/15, records viewed in care everywhere and found she was admitted 08/15 with discharge 08/16 or 08/17. Diagnosis of dehydration, weakness, hyperglycemia, acute UTI and failure to thrive. There is concerns of her living by herself currently and needing to change her current living situation to promote safety. She was discharged to a SNF ([facility]) 08/16 and unclear when she was discharged [...] by mouth daily with breakfast. Gets through [employer] PAP. ferrous sulfate 325 mg (65 mg [...] 1/5. Psychiatric: Attention (more content not included)... [facility] 08-16-2023 Discharge summary Note Date/Time August 16, 2023 4:16pm [facility] Medical Records Department [address] [place] [address] Discharge Summary 08/16/23 1612 MR#: [id number] Acct: [id number] Name: STEVE VIEIRA Rep #:[id number] : 1945 78 From: Carl Couch DO PCP: Dr. Peter Ellis MD Status:AD M IN Location: [place] [address] Providers Date of Admission: 08/15/23 Primary Care [...] she would benefit to going to a custodial facility for further rehab. 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 Carl Couch DO; Dr. Peter Ellis MD~ Signed [facility] Work Phone: 1(314) 305-155302-17-2024 Discharge summary Author Carl Couch [facility] August 16, 2023 4:12pm Note Date/Time August 16, 2023 4:04pm [facility] Medical Records Department [address] [place] [place] [address] Transfer to [facility] MR#: [id number] Acct: [id number] Name: STEVE VIEIRA Rep #:[id number] : 1945 78 From: Carl Couch DO PCP: Dr. Peter Ellis MD Status:AD M IN Certification of patient admission REQUIRED AT TIME OF ADMISSION. I CERTIFY THAT POST-HOSPITAL ECF SERVICES ARE REQUIRED TO BE GIVEN ON AN IN-PATIENT BASIS BECAUSE OF THE ABOVE NAMED PATIENT'S NEED FOR PRISON CARE ON A CONTINUING BASIS FOR THE [...] she would benefit to going to a custodial facility for further rehab. * Plan for discharge to custodial facility Chronic conditions: * Hyperlipidemia - Resume [...] in before D/C Order can be placed): Residential Facility 08/16/23 1612 <Electronically signed by Carl Couch DO> Cosigner Signature (if applicable): CC: Dr. Mitzy Pratt DO; Dr. Peter Ellis MD ~ [facility] Work Phone: 1(749) 174-432602-17-2024 Progress note Author Carl Couch [facility] August 16, 2023 1:09pm Note Date/Time August 16, 2023 7:51am [facility] Medical Records Department [address] [place] [address] Progress Note - Hospitalist 08/16/23 0751 MR#: [id number] Acct: [id number] Name: STEVE VIEIRA Rep #:[id number] : 1945 78 From: Carl Couch DO PCP: Dr. Peter Ellis MD Status:AD M IN Location: [facility] ND167-1 Reason for Visit Reason for Visit: Diagnoses [...] she would benefit to going to a custodial facility for further rehab. * Plan for discharge to custodial facility Chronic conditions: * Hyperlipidemia - Resume [...] sq daily. Charges/Coding Visit Charges Inpatient E&M: 79301 Subs Hosp L2 08/16/23 130 <Electronically signed by Carl Couch DO> Cosigner Signature (if applicable): CC: ~ Signed [facility] Work Phone: 1(716) 191-932302-16-2024 Progress note Author Carl Couch [facility] August 15, 2023 3:05pm Note Date/Time August 15, 2023 8:09am [facility] Medical Records Department [address] [place] [address] Progress Note - Hospitalist 08/15/23 0802 MR#: [id number] Acct: [id number] Name: STEVE VIEIRA Rep #:[id number] : 1945 78 From: Carl Couch DO PCP: Dr. Peter Ellis MD Status:AD M IN Location: [place] [address] Reason for Visit Reason for Visit: Diagnoses [...] (Auto) 69.3, Lymph % (Auto) 17.4 L, Fountain % (Auto) 10.7 H, Eos % (Auto) [...] Sl. Cloudy, Urine pH 7.0, Ur Specific Tremont 1.010, Urine Protein Negative, Urine Glucose (UA) [...] 71.6 H, Lymph % (Auto) 18.4 L, Fountain % (Auto) 6.9, Eos % (Auto) 1.5, [...] OT CM/SW * Plan for discharge to custodial facility Chronic conditions: * Hyperlipidemia - Resume [...] sq daily. Charges/Coding Visit Charges Inpatient E&M: 65876 Subs Hosp L2 08/15/23 1505 <Electronically signed by Carl Couch DO> Cosigner Signature (if applicable): CC: ~ Signed [facility] Work Phone: 1(319) 337-693502-16-2024 Miscellaneous Notes* Telephone Encounter - Rich Richmond LPN - 08/15/2023 9:11 AM EST Spoke with Cristin and pt was discharged on Aspirin. Pt is back in the hospital per Cristin. Rich Richmond LPN * Telephone Encounter - Marimar Shields LPN - 08/14/2023 10:29 AM EST Attempted to contact Cristin [facility] but no answer. Left providers [...] - 08/13/2023 3:04 PM EST Cristin with [facility] calling to let you know [...] booked. Rich Richmond LPN documented in this encounterMercy Memorial Hospital02-16-2024 Discharge summary Author Lola Marquez [facility] August 15, 2023 6:49am Note Date/Time August 14, 2023 10:36pm [facility] Medical Records Department [address] [place] [address] Emergency Department Summary 08/14/23 MR#: [id number] Acct: [id number] Name: STEVE VIEIRA Rep #:[id number] : 1945 78 From: Lola Marquez DO PCP: Dr. Peter Ellis MD Status:AD M IN Location: [place]3 SQ451-4 HPI History of Present Illness Chief Complaint: Weakness Detail of Chief Complaint: Generalized weakness Informant: patient and EMS Narrative Narrative: Patient presents to the emergency department via EMS from home. She called for help because she is unable to care for herself. [facility] and she was set up with protective services and Meals [employer] Wheels. Patient states that she is having a hard time even getting up. She is only had a tomato to eat today. Patient urinating frequently. Denies fevers or chills or sweats. She denies chest pain or shortness of breath. She denies abdominal pain. [facility] Medical History (Updated 08/15/23 @ 00:50 by [...] (Auto) 69.3 Lymph % (Auto) 17.4 L Fountain % (Auto) 10.7 H Eos % (Auto) [...] Sl. Cloudy Urine pH 7.0 Ur Specific Tremont 1.010 Urine Protein Negative Urine Glucose (UA) [...] levothyroxine 25 mcg tablet 25 mcg PO .[facility] Patient Comments: in addition to the 50mcg. so total of 75mcg on MWF glipizide 10 mg tablet 10 mg PO BID Qty: 60 0RF Primary Care Provider: Peter Ellis Referrals: Peter Ellis MD [Primary Care Provider] - Disposition Disposition: Acute Care Hospital [facility] What to do if you have Problems For any increased pain, shortness of breath, bleeding, nausea or vomiting, chestpain, or any unexpected problems, contact your Primary Care Provider. Call [facility] ([phone]) or report to the closest Emergency Room. Call 911 if necessary. 08/15/23 0649 <Electronically signed by Lola Marquez DO> Cosigner Signature (if applicable): CC: Dr. Peter Ellis MD ~ Signed [facility] Work Phone: 1(533) 331-330402-16-2024 History and physical note Author Mitzy Perez [facility] August 15, 2023 5:31am Note Date/Time August 15, 2023 1:25am [facility] Medical Records Department [address] [place] [address] H&P Exam - Hospitalist 08/15/23 0100 MR#: [id number] Acct: [id number] Name: STEVE VIEIRA Rep #:[id number] : 1945 78 From: Mitzy Serna DO PCP: Dr. Peter Ellis MD Status:AD M IN Location: [facility] IW247-1 [facility] - General General Date of Admission: [...] August 12, 2023 for treatment of adult btmbhgz-du-xxtwut who re-presents to [facility] ER complaining of hyperglycemia and being unable [...] in the setting of previously diagnosed adult rebjovn-gz-kkuxpx causing her not to be able to care for herself any longer at home and she was then admitted to the general medical floor for ongoing care for a stay that is expected to be greaterthan 48 hours. [facility] Medical History Diabetes Head injury Kidney [...] (Auto) 69.3, Lymph % (Auto) 17.4 L, Fountain % (Auto) 10.7 H, Eos % (Auto) [...] Sl. Cloudy, Urine pH 7.0, Ur Specific Tremont 1.010, Urine Protein Negative, Urine Glucose (UA) [...] August 12, 2023 for treatment of adult hvkvxsr-lt-vjkznb with patient needing ECF placement as she [...] 55 minutes. Charges/Coding Visit Charges Inpatient E&M: 24045 Init Hosp L2 08/15/23 0531 <Electronically signed by Mitzy Pratt DO> Cosigner Signature (if applicable): CC: Dr. Mitzy Pratt DO; Dr. Peter Ellis MD~ Signed [facility] Work Phone: [phone]) 318-881602-15-2024 Miscellaneous Notes* Telephone Encounter - Sharon Mayer RN - 08/14/2023 3:23 PM EST Letitia BALLESTEROS from [facility] called and is notified of [...] 08/14/2023 12:07 PM EST Letitia BALLESTEROS from [facility] calls and states that she was out to see patient today for 3 hours. Letitia reports that patient is not safe to at home but is refusing to go to penitentiary. Letitia reports thatliving conditions are unlivable. Patient [...] advise, Melina Keys, RN documented in this encounterMercy Memorial Hospital02-14-2024 NoteHNO ID: [id number] Author: RICH RICHMOND LPN Service: ? Author Type: LICENSED NURSE Type: Progress Notes Filed: 08/15/2023 09:20 Note Text: TRANSITION CARE MANAGEMENT (TCM) INITIAL CONTACT Nutritional Chemist Outreach Provider Action/FYI:06-14-24 pt is back in the hosptial Left a message 08-13-23 for pt to call the office to schedule a [facility] Follow up Discharged 08-12-23. Left another message 08-14-23 to call the office and ask to speak to a nurse. Need to do TCM and schedule a hospital follow up. Pt back in the hospital, TCM was not completed. Closing. Rich Richmond LPN TRANSITION CARE MANAGEMENT INITIAL OUTREACH DOCUMENTATION: No flowsheet data found. SUMMARY: -Pt discharged from [facility] on 08/12/23. -Admitted for: hyperglycemia, failure to [...] from recent hospitalization: [facility] History of Present illness Narrative* Rich Richmond LPN - 08/13/2023 3:22 PM EST TRANSITION CARE MANAGEMENT (TCM) INITIAL CONTACT Nutritional Chemist Outreach Provider Action/FYI:06-14-24 pt is back in the hosptial Left a message 08-13-23 for pt to call the office to schedule a [facility] Follow up Discharged 08-12-23. Left another message 08-14-23 to call the office and ask to speak to a nurse. Need to do TCM and schedule a hospital follow up. Pt back in the hospital, TCM was not completed. Closing. Rich Richmond LPN TRANSITION CARE MANAGEMENT INITIAL OUTREACH DOCUMENTATION: No flowsheet data found. SUMMARY: -Pt discharged from [facility] on 08/12/23. -Admitted for: hyperglycemia, failure to [...] back in the hospital documented in this encounterMercy Memorial Hospital02-14-2024 NotePatient Outreach (INTMWS) STEVE VIEIRA ([id number]) 1945 F Date Time Provider Department 08/13/23 PETER ELLIS INTMWS During your visit today, we recorded the following information about you: Rich Richmond LPN 08/15/2023 9:20 AM Signed TRANSITION CARE MANAGEMENT (TCM) INITIAL CONTACT Nutritional Chemist Outreach Provider Action/FYI:06-14-24 pt is back in the hosptial Left a message 08-13-23 for pt to call the office to schedule a [facility] Follow up Discharged 08-12-23. Left another message 08-14-23 to call the office and ask to speak to a nurse. Need to do TCM and schedule a hospital follow up. Pt back in the hospital, TCM was not completed. Closing. Rich Richmond LPN TRANSITION CARE MANAGEMENT INITIAL OUTREACH DOCUMENTATION: No flowsheet data found. SUMMARY: -Pt discharged from [facility] on 08/12/23. -Admitted for: hyperglycemia, failure to [...] by mouth daily with breakfast. Gets through [employer] Cares PAP. - ferrous sulfate 325 mg [...] 08/13/2021 Encounter Status:Closed by RICH RICHMOND on 08/15/23[facility]02-13-[facility]24 Consult note Author Macarena Doyle [facility] August 12, 2023 1:13pm Note Date/Time August 12, 2023 1:13pm [facility] Medical Records Department [address] [place] [address] Counseling Note - Pharmacy 08/12/23 1313 MR#: [id number] Acct: [id number] Name: STEVE VIEIRA Rep #:[id number] : 1945 78 From: Macarena Doyle PCP: Dr. Peter Ellis MD Status:AD M IN [facility] [place] [facility] Service has performed discharge [...] Signature (if applicable): Date CC: ~ Signed [facility] Work Phone: 1(215) 306-275302-13-2024 Discharge summary Author Wes Alva [facility] August 12, 2023 1:06pm Note Date/Time August 12, 2023 12:59pm [facility] Medical Records Department [facility] [place] [address] [address] Instructions for Home/Discharge Instructions 08/12/23 1258 MR#: [id number] Acct: [id number] Name: STEVE VIEIRA Rep #:[id number] : 1945 78 From: Wes Alva DO [...] levothyroxine 25 mcg tablet 25 mcg PO .[facility] Patient Comments: in addition to the 50mcg. [...] MD; Dr. Peter Ellis MD ~ Signed [facility] Work Phone: 1([phone]) 609-729502-13-2024 Miscellaneous Notes* Telephone Encounter - Yesenia Yarbrough [...] - 08/11/2023 12:49 PM EST [facility] with [facility] HH calls to report pt is going to be discharged from [facility] today with orders for Nursing, PT, and OT. [facility] is requesting a VO from provider that pcp will follow pt while in HH. Alta Ortiz LPN documented in this encounterMercy Memorial Hospital02-12-2024 Progress note Author Wes Alva [facility] August 11, 2023 5:13pm Note Date/Time August 11, 2023 5:06pm [facility] Medical Records Department [address] [place] [address] Progress Note - Hospitalist 08/11/23 1703 MR#: [id number] Acct: [id number] Name: STEVE VIEIRA Rep #:[id number] : 1945 78 From: Wes Alva DO PCP: Dr. Peter Ellis MD Status:AD M IN Location: [facility] RH862-8 Reason for Visit Reason for Visit: Diagnoses [...] % (Auto) 66.6, Lymph % (Auto) 20.9, Fountain % (Auto) 8.9, Eos % (Auto) 1.7, [...] discharged home rather than go to a custodial facility, due to her anemia today however [...] 35 minutes Charges/Coding Visit Charges Inpatient E&M: 83127 Subs Hosp L2 08/11/23 1713 <Electronically signed by Wes Alva DO> Cosigner Signature (if applicable): CC: ~ Signed [facility] Work Phone: [phone]) 898-687702-11-2024 Progress note Author Mitzy Strauss [facility] August 10, 2023 9:52am Note Date/Time August 10, 2023 7:17am [facility] Medical Records Department [address] [place] [address] Progress Note - Hospitalist 08/10/23 0715 MR#: [id number] Acct: [id number] Name: STEVE VIEIRA Rep #:[id number] : 1945 78 From: Mitzy Strauss MD PCP: Dr. Peter Ellis MD Status:AD M IN [facility] Reason for Visit Reason for Visit: Diagnoses [...] 76.1 H, Lymph % (Auto) 14.9 L, Fountain % (Auto) 6.6, Eos % (Auto) 0.9, [...] Clarity Clear, Urine pH 5.0, Ur Specific Tremont 1.015, Urine Protein 15 H, Urine Glucose [...] % (Auto) 65.9, Lymph % (Auto) 20.6, Fountain % (Auto) 9.7, Eos % (Auto) 1.7, [...] requested for PT OT eval and social director to assist with discharge planning ? 08/10/2023 [...] documentation, 50minutes Charges/Coding Visit Charges Inpatient E&M: 42322 Subs Hosp L3 08/10/23 1491 <Electronically signed by Mitzy Strauss MD> Cosigner Signature (if applicable): CC: ~ Signed [facility] Work Phone: [phone]) 963-686202-10-2024 Discharge summary Author Santos Mckeon [facility] August 09, 2023 4:50pm Note Date/Time August 09, 2023 11:52am [facility] Medical Records Department [address] [place] [address] Emergency Department Summary 08/09/23 MR#: [id number] Acct: [id number] Name: TSEVE VIEIRA Rep #:[id number] : 1945 78 From: Clayton LIRA PCP: Dr. Peter Ellis MD Status:AD M IN Location: [facility] NC217-7 HPI <PANKAJ Harris - Last Filed: 08/09/23 [...] <PANKAJ Harris - Last Filed: 08/09/23 14:00> [facility] Medical History Head injury Home Medications [...] Oxygen Delivery Method Room Air Room Air [facility] <PANKAJ Harris - Last Filed: 08/09/23 14:00> [facility] Lab Data Labs: Laboratory Results - last [...] 76.1 H Lymph % (Auto) 14.9 L Fountain % (Auto) 6.6 Eos % (Auto) 0.9 [...] Clarity Clear Urine pH 5.0 Ur Specific Tremont 1.015 Urine Protein 15 H Urine Glucose [...] 13:03 EST Reading Location ID and State: [facility] / [place] , Service support , Chest X-Ray 08/09/23 12:30 IMPRESSION: No radiographic evidence of acute cardiopulmonary disease. Electronically Signed: Hai Cardenas MD at 12:41 EST , EKG EKG shows normal sinus rhythm: Attestation: I personally reviewed and interpreted this EKG as follows: Interpretation: Sinus Rhythm Comments: Sinus rhythm, rate of 72 bpm, OK 190 ms, QRS duration 78 ms, no [...] Mckeon MD - Last Filed: 08/09/23 13:32> [facility] Narrative Medical decision making narrative: [...] 76.1 H Lymph % (Auto) 14.9 L Fountain % (Auto) 6.6 Eos % (Auto) 0.9 [...] Clarity Clear Urine pH 5.0 Ur Specific Tremont 1.015 Urine Protein 15 H Urine Glucose [...] 13:03 EST Reading Location ID and State: [facility] / [place] , Service support , Chest X-Ray 08/09/23 12:30 IMPRESSION: No radiographic evidence of acute cardiopulmonary disease. Electronically Signed: Hai Cardenas MD at 12:41 EST , Discharge Plan Dx/Rx/DC Orders Clinical Impression: Acute dehydration, Hyperglycemia due to diabetes mellitus, Adult failure to thrive, Chronic anemia Disposition Disposition: [facility] What to do if you have Problems For any increased pain, shortness of breath, bleeding, nausea or vomiting, chest pain, or any unexpected problems, contact your Primary Care Provider. Call Doctors [facility] ([phone]) or report to the closest Emergency Room. Call 911 if necessary. 08/09/23 1400 <Electronically signed by Clayton Abreu ANTIQUE CLOCK REPAIRER-C> Cosigner Signature (if applicable): 08/09/23 1650 <Electronically signed by Santos Mckeon MD> CC: Dr. Peter Ellis MD ~ Signed [facility] Work Phone: [phone]) 831-790102-10-2024 History and physical note Author Mitzy Strauss [facility] August 09, 2023 2:25pm Note Date/Time August 09, 2023 1:59pm [facility] Medical Records Department [address] [place] [address] H&P Exam - Hospitalist 08/09/23 1359 MR#: [id number] Acct: [id number] Name: STEVE VIEIRA Rep #:[id number] : 1945 78 From: Mitzy Strauss MD PCP: Dr. Peter Ellis MD Status:RE G ER Location: ED HPI - General General Date of Admission: 08/09/23 Date of Service: 08/09/23 Chief Complaint: Failure to thrive HPI Narrative STEVE VEIIRA, is a 78 F with multiple comorbidities [...] to admit patient for subsequent inpatient workup [facility] Medical History Head injury Home Medications [...] 76.1 H, Lymph % (Auto) 14.9 L, Fountain % (Auto) 6.6, Eos % (Auto) 0.9, [...] Clarity Clear, Urine pH 5.0, Ur Specific Tremont 1.015, Urine Protein 15 H, Urine Glucose [...] requested for PT OT eval and social director to assist with discharge planning 2. Dehydration [...] 18 minutes. Charges/Coding Visit Charges Inpatient E&M: 81699 Init Hosp L3 Procedures Hospitalists Procedures: 06430 Advncd Care Plan 30 Min 08/09/23 1425 <Electronically signed by Mitzy Strauss MD> Cosigner Signature (if applicable): CC: Dr. Mitzy Strauss MD; Dr. Peter Ellis MD~ Signed [facility] Work Phone: 1(763) 923-775712-18-2023 NotePatient Outreach (DOMINICKPHARMSVC) STEVE VIEIRA ([id number]) 1945 F Date Time Provider Department 06/16/23 JADON DELGADO During your visit today, we recorded the following information about you: Gume ([email or web address])Sharon 07/17/2023 3:08 AM Signed This patient has been referred by pharmacy for java j2ee technical lead patient assistance program application security consultant. Patient is currently enrolled in the patient assistance program through 2022. This encounter is for the program renewal through 2023. STATUS OF APPLICATION: Can be viewed under the encounter Additional Documentation > SmartForms: [facility] RX AMB CLINIC PATIENT ASSISTANCE Completed forms sent to the java j2ee technical lead will be available under Scanned Documents in the patient's chart. The finalized form can be found under PAP_Medication Name_Complete. PAP Powder Room Attendant Team will submit and track progress on the completed PAP application. Please do NOT fax to java j2ee technical lead unless directed by the PAP Powder Room Attendant Team. Please see SmartForm described above for specifics. Please DO NOT close this encounter. Sent to patient: Contacted patient to verify information for application. Sent to prescriber: Sent to prescriber. Confirmation Received. Sent to java j2ee technical lead: Allergies As of Date: 06/16/2023 Noted Allergy [...] subcutaneously one time a week. Gets through [employer] PAP. - empagliflozin (JARDIANCE) 25 mg tablet Take 1 tablet by mouth daily with breakfast. Gets through [employer] PAP. - ferrous sulfate 325 mg (65 [...] B12 deficiency [E53.8] 08/13/2021 Encounter Status:Closed by LionsideINNA on 07/17/23[facility] 04-22-2023 Miscellaneous Notes* Telephone Encounter - Renetta Abernathy LPN - 04/22/2023 1:40 PM EDT MILLA Rabago completed these. They have been faxed back to the company. * Telephone Encounter - Sherwin Che MSW - 04/21/2023 10:20 AM EDT Lesli spoke with patient and verified that patient Jardiance medication is the only medication that she applies to [facility] for assistance. Lesli will take forms to Dr. Ellis office for prescription completion. documented in this encounterMercy Memorial Hospital09-06-2023 Miscellaneous Notes* Telephone Encounter - Sherwin Che MSW - 03/05/2023 12:01 PM EDT Lesli spoke with patient in regards to [employer] and discount cab vouchers. Sw has updated brochures with transit cost and stops. Sw will mail [employer] brochures and [facility] Older Adult resource guide to patient [...] other social service needs. documented in this encounterMercy Memorial Hospital09-01-2023 Instructions* Patient Instructions* Peter Ellis MD - 02/28/2023 3:12 PM EDT Start iron tablet over the counter 1 pill on Friday, Friday and Friday. Dose is up to you. documented in this encounterMercy Memorial Hospital09-01-2023 NoteHNO ID: [id number] Author: Peter Ellis MD Service: ? Author Type: Physician Type: Progress Notes Filed: 03/31/2023 12:27 AM Note Text: This note was created using Ads[employer]iver[employer]. Subjective Steve Vieira is a 77 year [...] subcutaneously one time a week. Gets through [employer] PAP. empagliflozin (JARDIANCE) 25 mg tablet Take 1 tablet by mouth daily with breakfast. Gets through [facility] PAP. ferrous sulfate 325 mg (65 mg [...] (H) Estimated Average Gluc (more content not included)...[facility] 02-28-2023 History of Present illness Narrative* Peter Ellis MD - 02/28/2023 2:54 PM EDT This note was created using [employer]ter. Subjective Steve Vieira is a 77 year old female. Patient presents with: 4 month follow up: Labs prior SUBJECTIVE: Steve Veiira is a 77 year old year old [...] subcutaneously one time a week. Gets through [employer] PAP. empagliflozin (JARDIANCE) 25 mg tablet Take 1 tablet by mouth daily with breakfast. Gets through [employer] PAP. ferrous sulfate 325 mg (65 mg [...] the date of the service which included htjp-gw-hwlp patient care, completing clinical documentation, obtaining and/or reviewing separately obtained history, performing a medically appropriate examination, counseling and educating the patient/family/caregiver, and ordering medications, tests, or procedures. Peter Ellis MD documented in this encounterMercy Memorial Hospital08-17-2023 Miscellaneous Notes* Telephone Encounter - Barbara [...] appt. Radha Lea MA documented in this encounterMercy Memorial Hospital03-16-2023 Miscellaneous Notes* Telephone Encounter - Jadon Delgado [facility] - 09/12/2022 12:08 PM EDT During PharmD visit today, it was noted patient has NOT been taking many of her medications. Patient would benefit greatly from adherence packaging. The following prescriptions need sent to [facility] and are pended for PCP/RADIO ASSEMBLER's signature: Requested Prescriptions Pending Prescriptions Disp Refills [...] if clinically indicated. Thanks! Jadon Delgado PharmD, [facility] Primary Care Clinical Pharmacist documented in this encounterMercy Memorial Hospital03-16-2023 History of Present illness Narrative* Jadon [...] [facility]. [facility] - needs all meds [facility]. [...] changed insurance; thinks [facility] preferred Rx coverage: [facility] Medicare Affordability: no issues Diabetes supplies: [...] at night if can't sleep.Denies any hx [place]/stroke. Denies GI issues though problem list indicates [...] subcutaneously one time a week. Gets through [employer] Cares PAP. Taking 3mg weekly empagliflozin (JARDIANCE) 25 mg tablet Take 1 tablet by mouth daily with breakfast. Gets through [employer] PAP. Has Jardiance 10mg tablets. Taking 1 [...] -- ran out of the 10mg tabs; [facility] shadia completed for 25mg tabs --> PharmD called [facility] (on hold for ~30 mins); confirmed she [...] benefit greatly from adherence packaging. PharmD called [facility] to see if theyaccept patient's insurance and control systems technician believes it would be accepted. PharmD provided patient info and insurance information. Will have all prescriptions sent to [facility] through their adherence packaging and mail delivery [...] verbalized understanding of instructions. Jadon Delgado PharmD, [facility] Primary Care Clinical Pharmacist The majority of the pharmacy visit (> 50%) was spent counseling and/or coordinating care for thepatient. interaction: telephonic time was 90 minutes. documented in this encounterMer[facility]01-26-[facility]23 History of Present illness Narrative* Jadon [...] modifications and med adherence encouraged. Consult to [facility] to see if qualifies for Medicaid. [...] sleeping in Pharmacy: [facility] Rx coverage: [facility] Medicare Affordability: no issues Diabetes supplies: [...] verbalized understanding of instructions. Jadon Delgado PharmD, [facility] Primary Care Clinical Pharmacist The majority of the pharmacy visit (> 50%) was spent counseling and/or coordinating care for thepatient. interaction: face to face time was 45 minutes. documented in this encounterMercy [facility] Hospital01-26-2023 Instructions* Patient Instructions* Jadon Delgado RPh - 07/25/2022 2:30 PM EST Call Medicaid Shared Services number .[phone], to reach out to our area services [...] to the 25mg tablets. documented in this encounterMercy [facility] Hospital01-10-2023 Miscellaneous Notes* Telephone Encounter - Renetta Abernathy LPN - 07/09/2022 2:28 PM EST Rec'd fax from [facility] patient assistance program. This says pt is approved from 07/09/22 to 06/29/2023 unless pts circumstances changes. documented in this encounterMercy [facility] Hospital12-22-2022 Miscellaneous Notes* Telephone Encounter - OSITO [...] provided patient with Medicaid Shared Services number [phone], to reach out to our area services to see about material that they could provide to patient regarding how Medicaid assistance works with Medicare. Sw noted that calling above number can be screened over the phone for Medicaid. Patient reports that she will call after the of the year as she is busy with the holidays. documented in this encounterMercy [facility] Hospital12-22-2022 History of Present illness Narrative* Jadon Delgado, [facility] - 06/20/2022 11:00 AM EST Primary Care [...] complication, without long-term current use of insulin ([facility]) - ICD9: 250.00, ICD10: E11.9 (primary diagnosis) [...] time was 65 minutes. documented in this encounterMercy Memorial Hospital12-22-2022 Instructions* Patient Instructions* Jadon Delgado RPh [...] if you need refills. documented in this encounterMercy [facility] Hospital12-01-2022 Miscellaneous Notes* Telephone Encounter - Jadon Delgado RPh - 05/30/2022 12:44 PM EST PAP technicians completed PAP application. PCP portion placed on PCP's desk. Will get patient's signatures at upcoming appt on 06/20. Jadon Delgado PharmD, [facility] Primary Care Clinical Pharmacist documented in this encounterMercy Memorial Hospital11-18-2022 Miscellaneous Notes* Telephone Encounter - Quyen [...] and advise. Quyen Ramos documented in this encounterMercy [facility] Hospital10-31-2022 Miscellaneous Notes* Telephone Encounter - Jadon Delgado RPh - 04/29/2022 9:43 AM EDT Patient recently referred by PCP to [facility] for DM mngt Called patient to schedule initial appt Unable to reach patient, no dialtone when calling. 3rd outreach attempt for patient, will plan to send letter. [facility], [facility] Clinical Pharmacist Malcolm Torres [facility] documented in this encounterMercy Memorial Hospital10-18-2022 Miscellaneous Notes* Telephone Encounter - HUGO Nicole - 04/16/2022 10:57 AM EDT Telephoned the patient to schedule a new Primary Care pharmacy appt. Unable to leave a message. Phone saying the call did not go through. documented in this encounterMercy Memorial Hospital07-13-2022 Instructions* Patient Instructions* Harsha Ortiz MD - 01/09/2022 10:56 AM EDT Images from the original note were not included. documented in this encounterMercy Memorial Hospital07-13-2022 History of Present illness Narrative* Harsha [...] components. Harsha Ortiz MD documented in this encounterMercy [facility] Hospital06-14-2022 History of Present illness Narrative* Peter Ellis MD - 12/11/2021 2:20 PM EDT This note was created using AdsNativeriter. Subjective Steve Vieira is a 76 year [...] TIBC Peter Ellis MD documented in this encounterMercy Memorial Hospital03-28-2022 Miscellaneous Notes* Telephone Encounter - Maciej Lopez RPh - 09/24/2021 4:40 PM EDT This encounter was opened in error. @[email or web address]@ documented in this encounterMercy Memorial Hospital02-14-2022 History of Past illness Narrative* [...] of this encounter (statuses as of 03/31/2023) [facility] of Past illness Narrative* [...] of this encounter (statuses as of 04/22/2023) [facility] of Past illness Narrative* [...] of this encounter (statuses as of 08/12/2023) [facility] of Past illness Narrative* [...] of this encounter (statuses as of 08/14/2023) [facility] of Past illness Narrative* [...] of this encounter (statuses as of 08/15/2023) [facility] of Past illness Narrative* [...] of this encounter (statuses as of 08/29/2023) [facility] of Past illness Narrative* Problem Noted Date Resolved Date Uncontrolled type 2 diabetes mellitus without complication, without long-term current use of insulin 01/25/2016 08/20/2018 HYPOTHYROIDISM NOS 03/24/2007 04/02/2015 DIABETES MELLITUS TYPE II-UNCOMPL 01/05/2007 04/02/2015 Depressive disorder, not elsewhere classified 04/02/2015 HYPERLIPIDEMIA NEC/NOS 01/05/2007 5 documented as of this encounter (statuses as of 09/24/2021) [facility] of [facility] illness Narrative* Problem Noted Date Resolved Date Uncontrolled type 2 diabetes mellitus without complication, without long-term current use of insulin 01/25/2016 08/20/2018 HYPOTHYROIDISM NOS 03/24/2007 04/02/2015 DIABETES MELLITUS TYPE II-UNCOMPL 01/05/2007 04/02/2015 Depressive disorder, not elsewhere classified 04/02/2015 HYPERLIPIDEMIA NEC/NOS 01/05/2007 5 documented as of this encounter (statuses as of 01/09/2022) [facility] of [facility] illness Narrative* Problem Noted Date Resolved Date Uncontrolled type 2 diabetes mellitus without complication, without long-term current use of insulin 01/25/2016 08/20/2018 HYPOTHYROIDISM NOS 03/24/2007 04/02/2015 DIABETES MELLITUS TYPE II-UNCOMPL 01/05/2007 04/02/2015 Depressive disorder, not elsewhere classified 04/02/2015 HYPERLIPIDEMIA NEC/NOS 01/05/2007 5 documented as of this encounter (statuses as of 02/02/2022) [facility] Narrative* Problem Noted Date Resolved Date Uncontrolled type 2 diabetes mellitus without complication, without long-term current use of insulin 01/25/2016 08/20/2018 HYPOTHYROIDISM NOS 03/24/2007 04/02/2015 DIABETES MELLITUS TYPE II-UNCOMPL 01/05/2007 04/02/2015 Depressive disorder, not elsewhere classified 04/02/2015 HYPERLIPIDEMIA NEC/NOS 01/05/2007 5 documented as of this encounter (statuses as of 04/16/2022) [facility] Narrative* Problem Noted Date Resolved Date Uncontrolled type 2 diabetes mellitus without complication, without long-term current use of insulin 01/25/2016 08/20/2018 HYPOTHYROIDISM NOS 03/24/2007 04/02/2015 DIABETES MELLITUS TYPE II-UNCOMPL 01/05/2007 04/02/2015 Depressive disorder, not elsewhere classified 04/02/2015 HYPERLIPIDEMIA NEC/NOS 01/05/2007 5 documented as of this encounter (statuses as of 04/29/2022) [facility] Narrative* Problem Noted Date Resolved Date Uncontrolled type 2 diabetes mellitus without complication, without long-term current use of insulin 01/25/2016 08/20/2018 HYPOTHYROIDISM NOS 03/24/2007 04/02/2015 DIABETES MELLITUS TYPE II-UNCOMPL 01/05/2007 04/02/2015 Depressive disorder, not elsewhere classified 04/02/2015 HYPERLIPIDEMIA NEC/NOS 01/05/2007 5 documented as of this encounter (statuses as of 05/17/2022) [facility] Narrative* Problem Noted Date Resolved Date Uncontrolled type 2 diabetes mellitus without complication, without long-term current use of insulin 01/25/2016 08/20/2018 HYPOTHYROIDISM NOS 03/24/2007 04/02/2015 DIABETES MELLITUS TYPE II-UNCOMPL 01/05/2007 04/02/2015 Depressive disorder, not elsewhere classified 04/02/2015 HYPERLIPIDEMIA NEC/NOS 01/05/2007 5 documented as of this encounter (statuses as of 05/30/2022) [facility] Narrative* Problem Noted Date Resolved Date Uncontrolled type 2 diabetes mellitus without complication, without long-term current use of insulin 01/25/2016 08/20/2018 HYPOTHYROIDISM NOS 03/24/2007 04/02/2015 DIABETES MELLITUS TYPE II-UNCOMPL 01/05/2007 04/02/2015 Depressive disorder, not elsewhere classified 04/02/2015 HYPERLIPIDEMIA NEC/NOS 01/05/2007 5 documented as of this encounter (statuses as of 06/21/2022) [facility] Narrative* Problem Noted Date Resolved Date Uncontrolled type 2 diabetes mellitus without complication, without long-term current use of insulin 01/25/2016 08/20/2018 HYPOTHYROIDISM NOS 03/24/2007 04/02/2015 DIABETES MELLITUS TYPE II-UNCOMPL 01/05/2007 04/02/2015 Depressive disorder, not elsewhere classified 04/02/2015 HYPERLIPIDEMIA NEC/NOS 01/05/2007 5 documented as of this encounter (statuses as of 06/21/2022) [facility] Narrative* Problem Noted Date Resolved Date Uncontrolled type 2 diabetes mellitus without complication, without long-term current use of insulin 01/25/2016 08/20/2018 HYPOTHYROIDISM NOS 03/24/2007 04/02/2015 DIABETES MELLITUS TYPE II-UNCOMPL 01/05/2007 04/02/2015 Depressive disorder, not elsewhere classified 04/02/2015 HYPERLIPIDEMIA NEC/NOS 01/05/2007 5 documented as of this encounter (statuses as of 07/09/2022) [facility] Narrative* Problem Noted Date Resolved Date Uncontrolled type 2 diabetes mellitus without complication, without long-term current use of insulin 01/25/2016 08/20/2018 HYPOTHYROIDISM NOS 03/24/2007 04/02/2015 DIABETES MELLITUS TYPE II-UNCOMPL 01/05/2007 04/02/2015 Depressive disorder, not elsewhere classified 04/02/2015 HYPERLIPIDEMIA NEC/NOS 01/05/2007 5 documented as of this encounter (statuses as of 07/25/2022) [facility] Narrative* Problem Noted Date Resolved Date Uncontrolled type 2 diabetes mellitus without complication, without long-term current use of insulin 01/25/2016 08/20/2018 HYPOTHYROIDISM NOS 03/24/2007 04/02/2015 DIABETES MELLITUS TYPE II-UNCOMPL 01/05/2007 04/02/2015 Depressive disorder, not elsewhere classified 04/02/2015 HYPERLIPIDEMIA NEC/NOS 01/05/2007 5 documented as of this encounter (statuses as of 09/12/2022) [facility] Narrative* Problem Noted Date Resolved Date Uncontrolled type 2 diabetes mellitus without complication, without long-term current use of insulin 01/25/2016 08/20/2018 HYPOTHYROIDISM NOS 03/24/2007 04/02/2015 DIABETES MELLITUS TYPE II-UNCOMPL 01/05/2007 04/02/2015 Depressive disorder, not elsewhere classified 04/02/2015 HYPERLIPIDEMIA NEC/NOS 01/05/2007 5 documented as of this encounter (statuses as of 09/12/2022) [facility] Narrative* Problem Noted Date Diagnosed Date Resolved Date Uncontrolled type 2 diabetes mellitus without complication, without long-term current use of insulin 01/25/2016 08/20/2018 HYPOTHYROIDISM NOS 03/24/2007 5 DIABETES MELLITUS TYPE II-UNCOMPL 01/05/2007 04/02/2015 Depressive disorder, not elsewhere classified 01/06/20 07 04/02/2015 HYPERLIPIDEMIA NEC/NOS 01/05/200704/02 documented as of this encounter (statuses as of 02/13/2023) [facility] Narrative* Problem Noted Date Diagnosed Date Resolved Date Uncontrolled type 2 diabetes mellitus without complication, without long-term current use of insulin 01/25/2016 08/20/2018 HYPOTHYROIDISM NOS 03/24/2007 5 DIABETES MELLITUS TYPE II-UNCOMPL 01/05/2007 04/02/2015 Depressive disorder, not elsewhere classified 01/06/20 07 04/02/2015 HYPERLIPIDEMIA NEC/NOS 01/05/200704/02 documented as of this encounter (statuses as of 03/05/2023) [facility] note* Diagnosis OPENED IN ERROR- Primary To allow closing an encounter opened in error (used in SmartSet) documented in this encounter [facility] note* Diagnosis Combined forms of age-related cataract of both eyes- Primary Other and combined forms of senile cataract Type 2 diabetes mellitus without retinopathy (HCC) Type II or unspecified type diabetes mellitus without mention of complication, not stated as uncontrolled [id number] corneal dystrophy of both eyes [facility]* Diagnosis Uncontrolled type 2 diabetes mellitus with hyperglycemia (HCC)- Primary Recurrent kidney stones Calculus of kidney Esophageal reflux Depression, unspecified depression type Hyperlipidemia, unspecified hyperlipidemia type Acquired hypothyroidism Unspecified hypothyroidism B12 deficiency Other B-complex deficiencies Encounter for long-term current use of medication Iron deficiency anemia, unspecified iron deficiency anemia type [facility]* Diagnosis Esophageal reflux Persistent depressive disorder documented in this encounter [facility] note* Diagnosis Controlled type 2 diabetes mellitus without complication, without long-term current use of insulin (HCC)- Primary Medication management Encounter for long-term (current) use of other medications [facility]* Diagnosis Type 2 diabetes mellitus without complication, without long-term current use of insulin (HCC)- Primary Medication management Encounter for long-term (current) use of other medications [facility] noteNo assessment information availableWWilson Health Work Phone: Evaluation note* Diagnosis Medication management- Primary Encounter for long-term (current) use of other medications Type 2 diabetes mellitus without complication, without long-term current use of insulin (HCC) Hyperlipidemia, unspecified hyperlipidemia type documented in this encounter [facility] note* Diagnosis Esophageal reflux Persistent depressive disorder Acquired hypothyroidism Unspecified hypothyroidism documented in this encounter [facility] note* Diagnosis Acquired hypothyroidism- Primary Unspecified hypothyroidism B12 deficiency Other B-complex deficiencies Hyperlipidemia, unspecified hyperlipidemia type Iron deficiency anemia, unspecified iron deficiency anemia type Uncontrolled type 2 diabetes mellitus with hyperglycemia (HCC) documented in this encounter [facility] note* Diagnosis Acquired hypothyroidism- Primary Unspecified hypothyroidism Type 2 diabetes mellitus without complication, without long-term current use of insulin (HCC) Iron deficiency anemia, unspecified iron deficiency anemia type B12 deficiency Other B-complex deficiencies Vitamin D deficiency Unspecified vitamin D deficiency Encounter for long-term current use of medication [facility] Diagnosis Onset Date Resolution Status Acute dehydration acute Adult failure to thrive acut e Hyperglycemia due to diabetes mellitus acute Chronic anemia chronic [facility] Work Phone: Evaluation note* Diagnosis Onset Date Resolution Status Acute dehydration acute Adult failure to thrive acut e Hyperglycemia due to diabetes mellitus acute Chronic anemia chronic Acute UTI acute Adult failure to thrive acut e Hyperglycemia acute [facility] Work Phone: Evaluation note* Diagnosis Onset Date Resolution Status Acute dehydration acute Adult failure to thrive acut e Hyperglycemia due to diabetes mellitus acute Chronic anemia chronic Acute dehydration acute Acute UTI acute Adult failure to thrive acut e Hyperglycemia acute [facility] Work Phone: Evaluation note* Diagnosis Elevated LFTs- Primary Other abnormal blood chemistry documented in this encounter [facility] note* Diagnosis Onset Date Resolution Status Chronic anemia chronic Acute UTI acute Adult failure to thrive acut e Hyperglycemia acute [facility] Work Phone: Evaluation note* Diagnosis Encounter for therapeutic drug monitoring- Primary Acquired hypothyroidism Unspecified hypothyroidism Iron deficiency anemia, unspecified iron deficiency anemia type Type 2 diabetes mellitus without complication, without long-term current use of insulin (HCC) documented in this encounter [facility] note* Diagnosis Uncontrolled type 2 diabetes mellitus with hyperglycemia (HCC)- Primary Urinary incontinence without sensory awareness Incontinence without sensory awareness Weakness Other malaise and fatigue Elevated LFTs Other abnormal blood chemistry Anemia, unspecified type Frequent falls Personal history of fall documented in this encounter [facility] for referral (narrative)* Diagnostic Procedure Only (Routine) - Pending Review Specialty Diagnoses / Procedures Referred By Theresa amaro Referred To Contact US IMAGING Diagnoses Elevated LFTs Procedures US ABD RIGHT UPPER QUADRANT US ABDOMINAL REAL TIME W/IMAGE LIMITED Orin Sosa APRN.[employer]ER [address] [place] [address] Us Imaging [facility] Referral ID Status Reason Start Date Expiration Date Visits Requested Visits Authorized [id number] Pending Review Auto-Generat ed Referral 08/27/2023 09/25/2024 1 1 [facility] for referral (narrative)No reason for referral information availableWWilson Health Work Phone: Summary Purpose Family History No Family History Records FoundNo Family History Records FoundNo Family History Records Found Advance Directives Documents on File Type Date Recorded 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 Advance Directive(s) Advance Directive Response Recorded Date/ Time Advance Directives No June 07, 2014 12:02pm Living Will No May 28 019 12:36pm Power of Home Security Alarm Installer No May 28, 2019 12:36pm Advance Directive Response Recorded Date/ Time Advance Directives No June 07, 2014 1:02pm Living Will Yes September 21, 2022 2:29pm Power of Home Security Alarm Installer No September 21 2:29pm Advance Directive Response Recorded Date/ Time Advance Directives No June 07, 2014 12:02pm Living Will No August 09 024 3:47pm Power of Home Security Alarm Installer No August 09, 2023 3:47pm Advance Directive Response Recorded Date/ Time Advance Directives No June 07, 2014 12:02pm Living Will No August 15, 024 12:18am Power of Home Security Alarm Installer No August 15, 2023 12:18am Advance Directive Response Recorded Date/ Time Name of Medical Power of Home Security Alarm Installer leola daily August 15, 2023 3:01am Advance Directives No June 07, 2014 12:02pm Living Will Yes August 15, 024 3:01am Power of Home Security Alarm Installer Yes August 15, 2023 3:01am Advance Directive Response Recorded Date/ Time Name of Medical Power of Home Security Alarm Installer leola daily August 15, 2023 4:01am Advance Directives No June 07, 2014 1:02pm Living Will Yes August 15, 024 4:01am Power of Home Security Alarm Installer Yes August 15, 2023 4:01am Advance Directive [...] the event of a Fluress shortage, administer [place]-Fluor 1 drop into both eyes as directed [...] to thrive Hyperglycemia Chief Complaint Admit Date PRISON LAB WORK June 21 5:30am PRISON LAB WORK September 20, 2024 5 :00am Chief Complaint Admit Date PRISON LAB WORK December 14, 2024 5: 00am SEPSIS March 03, 2025 4:06pm Reason for Referral Specialty Diagnoses / Procedures Referred By Theresa amaro Referred To Contact Diagnoses Uncontrolled type 2 diabetes mellitus with hyperglycemia (HCC) Peter Ellis MD [address] [place] [address] Referral ID Status Reason Start Date Expiration Date Visits Re quested Visits Authorized [id number] Closed 1 1 Referral ID Status Reason Start Date Expiration Date V isits Requested Visits Authorized [id number] Authorized 11/12/2023 06/29/2024 1 1 Additional Source Comments INFORMATION SOURCE (unrecogn ized section and content) DATE CREATED AUTHOR 04/04/2019 [facility] DATE CREATED AUTHOR AUTHOR'S ORGANIZ ATION 12/06/2023 [facility] DATE CREATED AUTHOR AUTHOR'S ORGANIZ ATION 01/13/2025 [facility] Source Comments (unrecognize d section and content) In the event this informatio n is protected by the Federal Confidentiality of Alcohol and Drug Abuse Patient Records regulations: The Federal rules restrict any use of the information to criminally investigate or prosecute any alcohol or drug abuse patient.[facility] HospitalIn the event this information is protected by the Federal Confidentiality of Alcohol and Drug Abuse Patient Records regulations: The Federal rules restrict any use of the information to criminally investigate or prosecute any alcohol or drug abuse patient.[facility] HospitalIn the event this information is protected by the Federal Confidentiality of Alcohol and Drug Abuse Patient Records regulations: The Federal rules restrict any use of the information to criminally investigate or prosecute any alcohol or drug abuse patient.[facility] HospitalIn the event this information is protected by the Federal Confidentiality of Alcohol and Drug Abuse Patient Records regulations: The Federal rules restrict any use of the information to criminally investigate or prosecute any alcohol or drug abuse patient.[facility] HospitalIn the event this information is protected by the Federal Confidentiality of Alcohol and Drug Abuse Patient Records regulations: The Federal rules restrict any use of the information to criminally investigate or prosecute any alcohol or drug abuse patient.[facility] HospitalIn the event this information is protected by the Federal Confidentiality of Alcohol and Drug Abuse Patient Records regulations: The Federal rules restrict any use of the information to criminally investigate or prosecute any alcohol or drug abuse patient.[facility] HospitalIn the event this information is protected by the Federal Confidentiality of Alcohol and Drug Abuse Patient Records regulations: The Federal rules restrict any use of the information to criminally investigate or prosecute any alcohol or drug abuse patient.[facility] HospitalIn the event this information is protected by the Federal Confidentiality of Alcohol and Drug Abuse Patient Records regulations: The Federal rules restrict any use of the information to criminally investigate or prosecute any alcohol or drug abuse patient.[facility] HospitalIn the event this information is protected by the Federal Confidentiality of Alcohol and Drug Abuse Patient Records regulations: The Federal rules restrict any use of the information to criminally investigate or prosecute any alcohol or drug abuse patient.[facility] HospitalIn the event this information is protected by the Federal Confidentiality of Alcohol and Drug Abuse Patient Records regulations: The Federal rules restrict any use of the information to criminally investigate or prosecute any alcohol or drug abuse patient.[facility] HospitalIn the event this information is protected by the Federal Confidentiality of Alcohol and Drug Abuse Patient Records regulations: The Federal rules restrict any use of the information to criminally investigate or prosecute any alcohol or drug abuse patient.[facility] HospitalIn the event this information is protected by the Federal Confidentiality of Alcohol and Drug Abuse Patient Records regulations: The Federal rules restrict any use of the information to criminally investigate or prosecute any alcohol or drug abuse patient.[facility] HospitalIn the event this information is protected by the Federal Confidentiality of Alcohol and Drug Abuse Patient Records regulations: The Federal rules restrict any use of the information to criminally investigate or prosecute any alcohol or drug abuse patient.[facility] HospitalIn the event this information is protected by the Federal Confidentiality of Alcohol and Drug Abuse Patient Records regulations: The Federal rules restrict any use of the information to criminally investigate or prosecute any alcohol or drug abuse patient.[facility] HospitalIn the event this information is protected by the Federal Confidentiality of Alcohol and Drug Abuse Patient Records regulations: The Federal rules restrict any use of the information to criminally investigate or prosecute any alcohol or drug abuse patient.[facility] HospitalIn the event this information is protected by the Federal Confidentiality of Alcohol and Drug Abuse Patient Records regulations: The Federal rules restrict any use of the information to criminally investigate or prosecute any alcohol or drug abuse patient.[facility] HospitalIn the event this information is protected by the Federal Confidentiality of Alcohol and Drug Abuse Patient Records regulations: The Federal rules restrict any use of the information to criminally investigate or prosecute any alcohol or drug abuse patient.[facility] HospitalIn the event this information is protected by the Federal Confidentiality of Alcohol and Drug Abuse Patient Records regulations: The Federal rules restrict any use of the information to criminally investigate or prosecute any alcohol or drug abuse patient.[facility] HospitalIn the event this information is protected by the Federal Confidentiality of Alcohol and Drug Abuse Patient Records regulations: The Federal rules restrict any use of the information to criminally investigate or prosecute any alcohol or drug abuse patient.[facility] HospitalIn the event this information is protected by the Federal Confidentiality of Alcohol and Drug Abuse Patient Records regulations: The Federal rules restrict any use of the information to criminally investigate or prosecute any alcohol or drug abuse patient.[facility] HospitalIn the event this information is protected by the Federal Confidentiality of Alcohol and Drug Abuse Patient Records regulations: The Federal rules restrict any use of the information to criminally investigate or prosecute any alcohol or drug abuse patient.[facility] HospitalIn the event this information is protected by the Federal Confidentiality of Alcohol and Drug Abuse Patient Records regulations: The Federal rules restrict any use of the information to criminally investigate or prosecute any alcohol or drug abuse patient.[facility] HospitalIn the event this information is protected by the Federal Confidentiality of Alcohol and Drug Abuse Patient Records regulations: The Federal rules restrict any use of the information to criminally investigate or prosecute any alcohol or drug abuse patient.[facility] HospitalIn the event this information is protected by the Federal Confidentiality of Alcohol and Drug Abuse Patient Records regulations: The Federal rules restrict any use of the information to criminally investigate or prosecute any alcohol or drug abuse patient.[facility] HospitalIn the event this information is protected by the Federal Confidentiality of Alcohol and Drug Abuse Patient Records regulations: The Federal rules restrict any use of the information to criminally investigate or prosecute any alcohol or drug abuse patient.[facility] HospitalIn the event this information is protected by the Federal Confidentiality of Alcohol and Drug Abuse Patient Records regulations: The Federal rules restrict any use of the information to criminally investigate or prosecute any alcohol or drug abuse patient.[facility] HospitalIn the event this information is protected by the Federal Confidentiality of Alcohol and Drug Abuse Patient Records regulations: The Federal rules restrict any use of the information to criminally investigate or prosecute any alcohol or drug abuse patient.[facility] Reason for Visit (unrecogniz ed [...] Comments Transition Of Care 08/13/2023 Reason Comments [facility], verbal order Reason Comments Results Reason Comments Labs needed Reason Comments F/U 4 month Reason Comments Insurance Authorization pilar Reason Comments Medication Problem Care Teams (unrecognized sec tion and content) Prep Room Supervisor Relationship Specialty Start Date End Date Peter Ellis MD [address] [place], [place] [id number] PCP - General 03/24/07 Maciej Lopez [facility] [address] [place] [address] Pharmacist Pharmacy 02/26/19 Prep Room Supervisor Relationship Specialty Start Date End Date Peter Ellis MD [address] [place], [place] [id number] PCP - General 03/24/07 Maciej Lopez [facility] [address] [place] [address] Pharmacist Pharmacy 02/26/19 Prep Room Supervisor Relationship Specialty Start Date End Date Peter Ellis MD [address] [place] [address] PCP - General 03/24/07 [facility] [address] [facility] [place] [address] Pharmacist Pharmacy 02/26/19 Prep Room Supervisor Relationship Specialty Start Date End Date Peter Ellis MD [address] [place] [address] PCP - General 03/24/07 [facility] [address] [facility] [place] [address] Pharmacist Pharmacy 02/26/19 Prep Room Supervisor Relationship Specialty Start Date End Date Peter Ellis MD [address] [place] [address] PCP - General 03/24/07 Prep Room Supervisor Relationship Specialty Start Date End Date Peter Ellis MD [address] [place] [address] PCP - General 03/24/07 Prep Room Supervisor Relationship Specialty Start Date End Date Peter Ellis MD [address] [facility] [place] [address] PCP - General 03/24/07 Jadon Delgado, [facility] [address] [place] [phone] Pharmacist Pharmacy 06/20/22 Prep Room Supervisor Relationship Specialty Start Date End Date Peter Ellis MD [address] [place] [address] PCP - General 03/24/07 [place] [address] [place] [address] Pharmacist Pharmacy 06/20/22 Prep Room Supervisor Relationship Specialty Start Date End Date Peter Ellis MD [address] [place] [address] PCP - General 03/24/07 [place] [address] [place] [address] Pharmacist Pharmacy 06/20/22 Prep Room Supervisor Relationship Specialty Start Date End Date Peter Ellis MD [address] [place] [address] PCP - General 03/24/07 [place] [address] [place] [address] Pharmacist Pharmacy 06/20/22 Team Status: Active Member Role Status Dates Dr. Peter Ellis MD Family Provider Active Dr. Peter Ellis MD Primary Care Provider Active Team Status: Inactive Member Role Status Dates Dr. Peter Ellis MD Primary Care Provider Active Ed Physician Provider Emergency Provider Active Prep Room Supervisor Relationship Specialty Start Date End Date Peter Ellis MD [address] [place] [address] PCP - General 03/24/07 [place] [address] [place] [address] Pharmacist Pharmacy 06/20/22 Team Status: Inactive Member Role Status Dates Dr. Peter Ellis MD Primary Care Provider Active Ed Physician Provider Attending Provider, Emergency Pr ovider Active Team Status: Inactive Member Role Status Dates Dr. Peter Ellis MD Primary Care Provider Active Dr. Otis Brandon MD Emergency Provider Active Prep Room Supervisor Relationship Specialty Start Date End Date Peter Ellis MD [address] [place] [address] PCP - General 03/24/07 [place] [address] [place] [address] Pharmacist Pharmacy 06/20/22 Prep Room Supervisor Relationship Specialty Start Date End Date Peter Ellis MD [address] [place] [address] PCP - General 03/24/07 [place] [address] [place] [address] Pharmacist Pharmacy 06/20/22 Prep Room Supervisor Relationship Specialty Start Date End Date Peter Ellis MD [address] [place] [address] PCP - General 03/24/07 [place] [address] [place] [address] Pharmacist Pharmacy 06/20/22 Prep Room Supervisor Relationship Specialty Start Date End Date Peter Ellis MD [address] [place] [address] PCP - General 03/24/07 [place] [address] [place] [address] Pharmacist Pharmacy 06/20/22 Prep Room Supervisor Relationship Specialty Start Date End Date Peter Ellis MD [address] [place] [address] PCP - General 03/24/07 DannyJadon [facility]acobsGold[facility] [address] [place] [address] Pharmacist Pharmacy 06/20/22 Team Status: [...] Dr. Wes Alva , Attending Provider Active Prep Room Supervisor Relationship Specialty Start Date End Date Peter Ellis MD [address] [place] [address] PCP - General 03/24/07 [place] [address] [place] [phone] Pharmacist Pharmacy 06/20/22 Team Status: Active Member [...] Carl Couch , DO Attending Provider Active Prep Room Supervisor Relationship Specialty Start Date End Date Peter Ellis MD [address] [place] [address] PCP - General 03/24/07 [place] [address] [place] [address] Pharmacist Pharmacy 06/20/22 Team Status: Inactive Member Role Status Dates Dr. Peter Ellis MD Primary Care Provider Active Orin Sosa ANTIQUE CLOCK REPAIRER, ANTIQUE CLOCK REPAIRER-C Attending Provider, Referring Pr ovider Active Prep Room Supervisor Relationship Specialty Start Date End Date Peter Ellis MD [address] [place] [address] PCP - General 03/24/07 [place] [address] [place] [address] Pharmacist Pharmacy 06/20/22 Prep Room Supervisor Relationship Specialty Start Date End Date Peter Ellis MD [address] [place] [address] PCP - General 03/24/07 [place] [address] [place] [address] Pharmacist Pharmacy 06/20/22 Prep Room Supervisor Relationship Specialty Start Date End Date Peter Ellis MD [address] [place] [address] PCP - General 03/24/07 [place] [address] [place] [address] Pharmacist Pharmacy 06/20/22 Prep Room Supervisor Relationship Specialty Start Date End Date Peter Ellis MD [address] [place] [address] PCP - General 03/24/07 [place] [address] [place] [phone] Pharmacist Pharmacy 06/20/22 Prep Room Supervisor Relationship Specialty Start Date End Date Peter Ellis MD [address] [place] [address] PCP - General 03/24/07 [place] [address] [place] [phone] Pharmacist Pharmacy 06/20/22 Team Status: Active Member [...] BE BASED ON THE PRIMARY CLINICAL RECORDS. [employer] provides no warranty or guarantee of the accuracy or completeness of information in this document.
[2025-03-03] MEDS: Acetaminophen 650 MG/20 ML UDC GT (21:43)
--- NOTE | 2025-03-03 22:50 | EDS_ITS ---
HPI History of Present Illness Chief Complaint: Shortness of Breath Narrative Narrative: Patient is an 79-year-old female presenting to the emergency department for respiratory distress. Patient has past medical history of dementia, hyperlipidemia, failure to thrive. Patient received an RSV vaccine about 2 weeks ago and her nursing facility states that since then she has begun to decline. They state that today she was hypoxic and EMS was called. When EMS arrived she was saturating 65% on 4 L nasal cannula, does not wear any oxygen at baseline. They placed her on a nonrebreather. Patient unable to provide history due to dementia and presenting symptoms. [facility] Medical History Chronic depression Uncontrolled type 2 diabetes mellitus with hyperglycemia Chronic anemia Diabetes Kidney stones Adult failure to thrive Hyperglycemia due to diabetes mellitus Acute dehydration Head injury Home Medications ?Medication ?Instructions ?Recorded ?Last Taken ?Type levothyroxine 50 mcg tablet 50 mcg PO .CHRISTOPHSASU thyro id 06/07/14 03/03/25 History atorvastatin 40 mg tablet 40 mg PO QHS CHOLESTEROL 03/02/25 History escitalopram oxalate 10 mg tablet 10 mg PO DAILY DEPRE SS 05/28/19 03/03/25 History levothyroxine 25 mcg tablet 75 mcg PO .MWF thyroid 04/2203/02/25 History acetaminophen 325 mg tablet 650 mg (2 x 325 mg) PO Q6H PRN PRN 12/06/23 03/03/25 Rx Pain 1-10 Or Fever>100.7 #0 tabs melatonin 3 mg tablet 3 mg PO QHS PRN PRN Insomnia #0 12/06/23 03/02/25 Rx tabs menthol 0.44 %-zinc oxide 20.6 % 1 applic topical BID redness 12/06/23 12/06/23 History topical ointment (Calmoseptine) acetaminophen 650 mg rectal 650 mg KS Q4H PRN fever or pain 03/03/25 Unknown History suppository bisacodyl 10 mg rectal suppository 10 mg KS DAILY PRN constipation 03/03/25 Unknown History cholecalciferol (vitamin D3) 1,250 1,250 mcg PO .Qmond ay supplement 03/03/25 02/28/25 History mcg (50,000 unit) capsule ferrous sulfate 325 mg (65 mg 325 mg PO BID iron suppl ement 03/03/25 03/03/25 History iron) tablet (FeroSul) guaifenesin 100 mg/5 mL oral 200 mg PO Q4H PRN congest ion, cough 03/03/25 Unknown History liquid (Adult Tussin Chest Congestion) insulin glargine 100 unit/mL (3 26 unit subcut QPM maria de jesus betes 03/03/25 03/02/25 History mL) subcutaneous pen (Lantus Solostar U-100 Insulin) insulin glargine 100 unit/mL (3 40 unit subcut .am maria de jesus betes 03/03/25 03/03/25 History mL) subcutaneous pen (Lantus Solostar U-100 Insulin) insulin lispro 100 unit/mL 5 unit subcut BIDAC diabete s 03/03/25 03/03/25 History subcutaneous pen (Humalog KwikPen (U-100) Insulin) insulin lispro 100 unit/mL 1 sliding scale dose subcut .AC 03/03/25 03/03/25 History subcutaneous solution (Humalog Diabetes U-100 Insulin) magnesium hydroxide 400 mg/5 mL 30 ml PO DAILY PRN con stipation 03/03/25 Unknown History oral suspension (Milk of Magnesia) oxybutynin chloride 10 mg 10 mg PO .HS bladder spasms 03/03/25 03/02/25 History tablet,extended release 24 hr pantoprazole 20 mg tablet,delayed 20 mg PO DAILY GERD 03/03/25 03/03/25 History release sennosides 8.6 mg-docusate sodium 1 tab PO DAILY const ipation 03/03/25 03/03/25 History 50 mg tablet (Stool Softener-Stimulant Laxative) Allergy/AdvReac Type Severity Reaction Status Date / Time venlafaxine HCl (From Allergy Rash Verified 03/03/25 14:19 Effexor) meclizine AdvReac Other Verified 03/03/25 14:19 Surgical History History of cholecystectomy History of knee joint replacement H/O: section Social History household members: none Smoking Status: Unknown if ever smoked alcohol intake: never substance use type: does not use ROS ROS ED Review of Systems ROS Unobtainable: due to mental condition and due to mental status EXAM Physical Exam Narrative Exam Narrative: Vital signs: Reviewed General: In acute respiratory distress. Chronically ill-appearing. HEENT: Head is normocephalic and atraumatic, sinuses nontender, pupils equal round and reactive. Nares are patent. Oropharynx and throat exams normal. Emesis around mouth and on shirt. Neck: Supple without lymphadenopathy nontender Cardiovascular: Tachycardic rate and regular rhythm, no murmurs. No rubs or gallops. Normal S1 and S2 Respiratory: Rhonchorous lung sounds throughout. No wheezing. Arrives on a nonrebreather, switched to humidified nasal cannula. Abdominal: Soft and nontender. Normal bowel sounds. No guarding or rebound. Nonsurgical abdomen Extremities: No tenderness. No bruising. Normal range of motion. Normal sensation. Skin: No rash or redness. Neurological: Moves all extremities. The rest of the physical exam is unremarkable Const Vital Signs: 03/03/25 14:11 03/03/25 14:15 03/03/25 14:18 Temperature 100 F H 100 F H Temperature Source Oral Oral Pulse Rate 131 H 130 H Respiratory Rate 36 H 36 H Respiratory Effort Respiratory Depth Respiratory Pattern Blood Pressure 130/67 H 130/67 H Blood Pressure Mean 88 88 Pulse Ox 90 93 94 Oxygen Delivery Method Nasal Cannula Non-Rebreather Nasal Cannula Oxygen Flow Rate (L/min) 10 15 10 Fraction of Inspired Oxygen (FIO2) 03/03/25 14:20 03/03/25 14:31 03/03/25 14:32 Temperature Temperature Source Pulse Rate 100 Respiratory Rate 14 Respiratory Effort Normal Normal Respiratory Depth Shallow Shallow Respiratory Pattern Tachypnea Tachypnea Normal Blood Pressure Blood Pressure Mean Pulse Ox 94 Oxygen Delivery Method Nasal Cannula Oxygen Flow Rate (L/min) 10 Fraction of Inspired Oxygen (FIO2) 50 03/03/25 15:10 03/03/25 15:15 03/03/25 15:18 Temperature 102.6 F H Temperature Source Core Pulse Rate 122 H 121 H 120 H Respiratory Rate 14 Respiratory Effort Respiratory Depth Respiratory Pattern Blood Pressure 71/51 L 97/70 108/61 Blood Pressure Mean 57 79 76 Pulse Ox 96 Oxygen Delivery Method Mechanical Ventilator Oxygen Flow Rate (L/min) Fraction of Inspired Oxygen (FIO2) 03/03/25 15:20 03/03/25 15:22 03/03/25 15:30 Temperature 102.6 F H 102 F H Temperature Source Core Core Pulse Rate 121 H 120 H Respiratory Rate 14 14 Respiratory Effort Respiratory Depth Respiratory Pattern Blood Pressure 108/61 119/61 Blood Pressure Mean 76 80 Pulse Ox 96 96 Oxygen Delivery Method Mechanical Ventilator Mechanical Ventilator Oxygen Flow Rate (L/min) Fraction of Inspired Oxygen (FIO2) 60 03/03/25 16:00 Temperature 101.2 F H Temperature Source Core Pulse Rate 113 H Respiratory Rate 14 Respiratory Effort Respiratory Depth Respiratory Pattern Blood Pressure 119/51 L Blood Pressure Mean 73 Pulse Ox 97 Oxygen Delivery Method Mechanical Ventilator Oxygen Flow Rate (L/min) Fraction of Inspired Oxygen (FIO2) MDM MDM MDM Narrative Medical decision making narrative: Patient is a 79-year-old female presenting to the emergency department for respiratory distress. Patient was seen on arrival. On nonrebreather saturating in the low 90s. Tachycardic. Febrile. She arrives with DNR CCA paperwork. No indication about intubation status. I did speak to the patient's son, Salomón Lott, to ask about intubation status. He is unsure, asks for her to be intubated until he decides after speaking to his brother. Fluid bolus started. Based off the patient's presentation, sepsis team was started. Tylenol was already given rectally at the nursing facility. Rocephin and azithromycin given for likely respiratory versus urinary source of infection. VBG with no significant respiratory acidosis however based on the patient's work of breathing and need to protect airway given her vomiting and likely aspiration, decision was made to intubate. Etomidate and rocuronium used. First-pass attempt successful with a 7.5 tube and glide scope. Positive color change and bilateral breath sounds present. OG placed by nursing staff. X-ray obtained, ET tube pulled back 2 cm after x-ray was reviewed. Propofol and fentanyl used for postintubation sedation. CBC with mild leukocytosis of 13.5. Hemoglobin 10.4. CMP with transaminitis and elevated total bilirubin at 2.53, CT abdomen pelvis ordered after these labs were reviewed. Lactate of 3.4. Urinalysis with evidence of UTI with WBCs, leukocyte esterase and nitrites. CT abdomen pelvis with evidence of cystitis. Pulmonary parenchymal opacities to be correlated for aspiration or pneumonia. Patient admitted to hospitalist, Dr. Trent, for further management. Clinical impression Urosepsis Aspiration pneumonia Acute hypoxic respiratory failure History & Record Review Discussion w/independent historian: EMS personnel and Family Lab Data Attestation: I reviewed the patient's lab results. Labs: Laboratory Results - last 24 hr 03/03/25 03/03/25 14:20 14:48 WBC 13.5 H RBC 3.39 L Hgb 10.4 L Hct 32.8 L MCV 96.8 MCH 30.7 MCHC 31.7 L RDW Std Deviation 49.9 H RDW Coeff of Nicholas 14.1 Plt Count 191 MPV 10.9 Immature Gran % (Auto) 0.500 Neut % (Auto) 95.4 H Lymph % (Auto) 2.2 L [place] % (Auto) 1.3 Eos % (Auto) 0.2 Baso % (Auto) 0.4 Absolute Neuts (auto) 12.9 H Absolute Lymphs (auto) 0.30 L Nucleated RBC % 0 Sodium 135 Potassium 3.9 Chloride 101 Carbon Dioxide 22.6 Anion Gap 12 BUN 22 H Creatinine 0.96 Estim Creat Clear Calc 44.36 L Est GFR (MDRD) Non-Af 60 BUN/Creatinine Ratio 23.4 H Glucose 214 H Lactic Acid 3.4 H* Calcium 9.0 Total Bilirubin 2.53 H AST 77 H ALT 39 H Alkaline Phosphatase 378 H Total Creatine Kinase 48 Troponin T High Sens 49 H Total Protein 7.9 Albumin 3.7 Globulin 4.1 Albumin/Globulin Ratio 0.9 Triglycerides 119 Urine Color Yellow Urine Clarity Sl. Cloudy Urine pH 5.0 Ur Specific [place] 1.015 Urine Protein 100 H Urine Glucose (UA) Normal Urine Ketones Negative Urine Occult Blood 150 H Urine Nitrite Positive H Urine Bilirubin Negative Urine Urobilinogen 1 H Ur Leukocyte Esterase 500 H Urine RBC 0 SEEN Urine WBC >100 SEEN Ur Squamous Epith Cells 0 SEEN Urine Bacteria 0 SEEN Urine Mucus 0 SEEN ABG Data ABG results: ABG 03/03/25 03/03/25 14:27 15:21 Specimen Type ART ART Sample Site R Radial L Radial pH 7.47 H 7.42 Bicarbonate Actual 21.7 L 25.7 Total CO2 23 27 Base Excess -2 1 O2 Saturation 96 96 O2 % 50.0 ABG pCO2 29.8 L 40.1 ABG pO2 78 84 Javon Test Positive Positive Respiration Rate 14 O2 Delivery Device Cannula Adult Vent Vent Mode Not entered AC Tidal Volume 400.0 POC PEEP 5 Radiography Diagnostic Testing: Clinical Impression(s) from Imaging Studies Chest X-Ray 03/03/25 14:45 IMPRESSION: The tip of the endotracheal tube is at the level of the woodrow. It should be pulled back approximately 2 cm. Reading [id number]Pelvis CT 03/03/25 15:45 IMPRESSION: Clinical correlation for mild UTI and/or cystitis. Genitourinary findings discussed above in detail. - Pulmonary parenchymal opacities to be correlated for aspiration/pneumonia as discussed above. - Nonspecific gastrointestinal findings. - Other incidental and nonemergent findings discussed above. Reading Location: [id number] Procedures Intubations Intubation Method: orotracheal Intubation Verification: Positive color change and Bilateral breath sounds confirmed Intubation Complications: no complications Discharge Plan Disposition Disposition: Acute Care Hospital [facility] Discharge Date/Time: 03/03/25 16:21
[2025-03-04] VITALS (32 sets, daily range): BP systolic 88–123; BP diastolic 45–75; PULSE 86–110; RESP 12–22; TEMP 36.6–39.2; O2SAT 87–96; BMI 37.8
[2025-03-04] MEDS: Acetaminophen 650 MG/20 ML UDC GT (02:22)
[2025-03-04 04:32] LABS: Hematocrit 28.8 % (37-47); Hemoglobin 9.0 g/dL (12.0-15.0); Immature Granulocytes Count 0.200 X10^3/uL (0.0-0.0); Mean Corp Hgb Conc 31.3 g/dL (32-36); Mean Corpuscular Volume 99.3 fL (81-99); Mean Platelet Vol. 11.1 fl (6.2-12.0); NRBC Flagged by Analyzer 0 % (0-5); POSITIVE DIFFERENTIAL YES; Platelet Count 169 K/mm3 (150-450); RBC Distribution Width CV 14.5 % (11.6-14.6); RBC Distribution Width SD 52.9 fl (35.1-43.9); Red Blood Count 2.90 M/mm3 (4.2-5.4); White Blood Count 20.0 K/mm3 (4.4-11.0)
[2025-03-04 04:44] LABS: AST(SGOT) 76 U/L (<=31); Alanine Aminotransfer ALT/SGPT 37 U/L (<=34); Albumin, Serum 2.7 g/dL (3.4-4.8); Alkaline Phosphatase 291 U/L (35-104); Anion Gap 11 (5-15); BUN 21 mg/dL (4-19); BUN/Creat Ratio 17.8 RATIO (10-20); Calcium,Total 7.9 mg/dL (7.6-11.0); Carbon Dioxide 18.7 mmol/L (21.0-32.0); Chloride 107 mmol/L (98-108); Estimated Creatinine Clearance 36.55 ml/min (50-250); Globulin 3.7 g/dL (2.2-4.2); Glucose 175 mg/dL (70-99); Potassium 3.8 mmol/L (3.3-5.1)
[2025-03-04 05:04] LABS: Prothrombin Time (Protime)PT. 18.4 SECONDS (11.7-14.9)
[2025-03-04] MEDS: fentaNYL drip 100 ML 7.5 MCG CONT INF (05:07)
[2025-03-04] MEDS: Propofol 10MG/Ml 1,000 MG/100 ML Bottle 2.5 MG CONT INF (05:14)
[2025-03-04] MEDS: Piperacil/Tazobactam 3.375 GM in 0.9% Normal Saline (50mL MB+) 50 ML IV ×3 (05:21→21:47)
--- NOTE | 2025-03-04 07:46 | EX.PCM.CONCC ---
Assessment & Plan Assessment/Plan (1) Acute hypoxic respiratory failure: (2) Sepsis: PLAN: Plan RECOMMENDATIONS: 1. Continue assist-control mode of mechanical ventilation. Wean FiO2 and PEEP as tolerated. 2. Continue empiric broad-spectrum antimicrobials, pending infectious workup. 3. Continue propofol and fentanyl for sedation. 4. Continue appropriate ICU prophylaxis with Lovenox and Protonix. 5. Check TSH. 6. Spontaneous awakening and breathing trials, per protocol. 7. Tube feeding can be initiated tomorrow if the patient is unable to be extubated in the next 24 hours. IMPRESSIONS: 1. Sepsis The patient presented to the hospital with sepsis due to suspected UTI +/- aspiration pneumonia with acute sepsis related organ dysfunction as evidenced by lactic acidemia, hyperbilirubinemia and acute respiratory failure requiring invasive mechanical ventilatory support. She did receive supplemental IV fluid hydration and is remained otherwise hemodynamically stable. Plan to continue current supportive care, including broad-spectrum antimicrobials, pending finalized infectious workup. 2. Acute hypoxemic respiratory failure Most likely secondary to underlying aspiration pneumonia coupled with inability to compensate for metabolic demands of sepsis. The patient was ultimately intubated in the emergency department. She is doing well this morning from a respiratory perspective on assist-control mode mechanical ventilation. Will plan to continue to wean her FiO2 and PEEP as tolerated. Recommend proceeding with spontaneous awakening and breathing trials per protocol. The patient will need to be reevaluated by speech therapy following extubation. 3. History of oropharyngeal dysphagia/history of esophageal stricture and eosinophilic esophagitis The patient was previously noted to have oropharyngeal dysphagia along with a stricture requiring dilation and biopsies consistent with eosinophilic esophagitis on endoscopic evaluation in November 2023. Accordingly, recommend that speech therapy reevaluate the patient following extubation, prior to any advancement in her diet. 4. Diabetes mellitus/hypothyroidism/GERD/advanced age Complicates care, management, recovery and prognosis. Continue home medications as indicated. Will plan to check TSH today. Tube feeding for nutritional support can be initiated tomorrow, if the patient is unable to be extubated. TIME: 40 minutes of critical care time, independent of procedures, was spent adressing the patient's sepsis, acute hypoxemic respiratory failure, review of all data and collaboration with the care team. HPI Consult Data Date of Consult: 03/04/25 HPI Narrative Reason for Consultation: Sepsis, acute respiratory failure HPI Narrative: The patient is an 79-year-old female, with a history as outlined below, who presented to the emergency department on March 03 with shortness of breath and hypoxemia. History pertinent to her hospitalization was obtained primarily via chart review, as the patient is currently intubated and there is no family available at the bedside. The patient has a documented history of diabetes mellitus, depression, GERD and hypothyroidism. The patient was last admitted to the hospital in November 2023 with severe hyperglycemia and metabolic encephalopathy. The patient did have oropharyngeal dysphagia noted on modified barium swallow in November 2023. She was subsequently evaluated by gastroenterology who completed an endoscopic evaluation which noted an esophageal stricture which was dilated. Biopsies also demonstrated severe eosinophilic esophagitis. On presentation to the emergency department, the patient was noted to be febrile, tachycardic and tachypneic. The patient was hypoxemic at presentation requiring a nonrebreather initially. Laboratory evaluation was notable for a white blood cell count of 13,000 with a hemoglobin of 10.4 g/dL and platelet count of 191,000. Initial arterial blood gas was notable for a pH of 7.47 with a pCO2 of 29 and pO2 of 78. Chemistry profile was unremarkable. Lactate was elevated at 3.4. Total bilirubin was increased to 2.5. Alkaline phosphatase was increased at 378. Troponin was mildly elevated at 49. Urine analysis was positive for nitrites, leukocyte esterase and greater than [address] abdomen/pelvis demonstrated airspace opacity with air bronchograms in the right lower lobe. The patient did receive IV fluid resuscitation and was started on antimicrobial therapy. There was initial concern by the ED provider over airway protection and decompensated respiratory failure, for which the patient was ultimately intubated. She was subsequently admitted to the medical intensive care unit. This morning, the patient's white blood cell count has increased to 20,000. Hemoglobin and platelet count are stable. Creatinine is stable. Total bilirubin has improved to 1.94. FiO2 requirement was noted to be 30%. [facility] Medical History Chronic depression Uncontrolled type 2 diabetes mellitus with hyperglycemia Chronic anemia Diabetes Kidney stones Adult failure to thrive Hyperglycemia due to diabetes mellitus Acute dehydration Head injury Home Medications ?Medication ?Instructions ?Recorded ?Last Taken ?Type levothyroxine 50 mcg tablet 50 mcg [facility]07[facility]14 03/03/25 History atorvastatin 40 mg tablet 40 mg PO QHS CHOLESTEROL 05/28/19 03/02/25 History escitalopram oxalate 10 mg tablet 10 mg PO DAILY DEPRESS 05/28/19 03/03/25 History levothyroxine 25 mcg tablet 75 mcg PO .MWF thyroid 08/09/23 03/02/25 History acetaminophen 325 mg tablet 650 mg (2 x 325 mg) PO Q6H PRN PRN 12/06/23 03/03/25 Rx Pain 1-10 Or Fever>100.7 #0 tabs melatonin 3 mg tablet 3 mg PO QHS PRN PRN Insomnia #0 12/06/23 03/02/25 Rx tabs menthol 0.44 %-zinc oxide 20.6 % 1 applic topical BID redness 12/06/23 12/06/23 History topical ointment (Calmoseptine) acetaminophen 650 mg rectal 650 mg MN Q4H PRN fever or pain 03/03/25 Unknown History suppository bisacodyl 10 mg rectal suppository 10 mg MN DAILY PRN constipation 03/03/25 Unknown History cholecalciferol (vitamin D3) 1,250 1,250 mcg PO .Qmonday supplement 03/03/25 02/28/25 History mcg (50,000 unit) capsule ferrous sulfate 325 mg (65 mg 325 mg PO BID iron supplement 03/03/25 03/03/25 History iron) tablet (FeroSul) guaifenesin 100 mg/5 mL oral 200 mg PO Q4H PRN congestion, cough 03/03/25 Unknown History liquid (Adult Tussin Chest Congestion) insulin glargine 100 unit/mL (3 26 unit subcut QPM diabetes 03/03/25 03/02/25 History mL) subcutaneous pen (Lantus Solostar U-100 Insulin) insulin glargine 100 unit/mL (3 40 unit subcut .am diabetes 03/03/25 03/03/25 History mL) subcutaneous pen (Lantus Solostar U-100 Insulin) insulin lispro 100 unit/mL 5 unit subcut BIDAC diabetes 03/03/25 03/03/25 History subcutaneous pen (Humalog KwikPen (U-100) Insulin) insulin lispro 100 unit/mL 1 sliding scale dose subcut .AC 03/03/25 03/03/25 History subcutaneous solution (Humalog Diabetes U-100 Insulin) magnesium hydroxide 400 mg/5 mL 30 ml PO DAILY PRN constipation 03/03/25 Unknown History oral suspension (Milk of Magnesia) oxybutynin chloride 10 mg 10 mg PO .HS bladder spasms 03/03/25 03/02/25 History tablet,extended release 24 hr pantoprazole 20 mg tablet,delayed 20 mg PO DAILY GERD 03/03/25 03/03/25 History release sennosides 8.6 mg-docusate sodium 1 tab PO DAILY constipation 03/03/25 03/03/25 History 50 mg tablet (Stool Softener-Stimulant Laxative) Allergy/AdvReac Type Severity Reaction Status Date / Time venlafaxine HCl (From Allergy Rash Verified 03/03/25 14:19 Effexor) meclizine AdvReac Other Verified 03/03/25 14:19 Surgical History History of cholecystectomy History of knee joint replacement H/O: section Social History household members: none Smoking Status: Unknown if ever smoked alcohol intake: never substance use type: does not use ROS Review of Systems ROS Unobtainable: due to endotracheal tube Physical Exam Const Constitutional Narrative: Intubated, sedated and mechanically ventilated. No ventilator dyssynchrony noted. HEENT normocephalic and head/scalp atraumatic Mouth: endotracheal tube in place and OG tube in place Eyes EOMs intact bilaterally and conjunctivae normal Neck supple General: trachea midline Chest inspection of chest normal Resp normal respiratory effort Auscultation: Negative for rales, rhonchi or wheezes Cardio regular rate and regular rhythm GI soft to palpation and non-tender Extremity no clubbing, cyanosis or edema Skin no rashes or lesions noted Neuro Sensorium / Orientation: sedated on vent Lab / Micro Data 03/04/25 04:00 03/04/25 04:00 Labs: Laboratory Results - last 24 hr 03/03/25 14:20: WBC 13.5 H, RBC 3.39 L, Hgb 10.4 L, Hct 32.8 L, MCV 96.8, MCH 30.7, MCHC 31.7 L, RDW Std Deviation 49.9 H, RDW Coeff of Nicholas 14.1, Plt Count 191, MPV 10.9, Immature Gran % (Auto) 0.500, Neut % (Auto) 95.4 H, Lymph % (Auto) 2.2 L, [place] % (Auto) 1.3, Eos % (Auto) 0.2, Baso % (Auto) 0.4, Absolute Neuts (auto) 12.9 H, Absolute Lymphs (auto) 0.30 L, Nucleated RBC % 0, Sodium 135, Potassium 3.9, Chloride 101, Carbon Dioxide 22.6, Anion Gap 12, BUN 22 H, Creatinine 0.96, Estim Creat Clear Calc 44.36 L, Est GFR (MDRD) Non-Af 60, BUN/Creatinine Ratio 23.4 H, Glucose 214 H, Lactic Acid 3.4 H*, Calcium 9.0, Total Bilirubin 2.53 H, AST 77 H, ALT 39 H, Alkaline Phosphatase 378 H, Total Creatine Kinase 48, Troponin T High Sens 49 H, Total Protein 7.9, Albumin 3.7, Globulin 4.1, Albumin/Globulin Ratio 0.9, Triglycerides 119 03/03/25 14:48: Urine Color Yellow, Urine Clarity Sl. Cloudy, Urine pH 5.0, Ur Specific [place] 1.015, Urine Protein 100 H, Urine Glucose (UA) Normal, Urine Ketones Negative, Urine Occult Blood 150 H, Urine Nitrite Positive H, Urine Bilirubin Negative, Urine Urobilinogen 1 H, Ur Leukocyte Esterase 500 H, Urine RBC 0 SEEN, Urine WBC >100 SEEN, Ur Squamous Epith Cells 0 SEEN, Urine Bacteria 0 SEEN, Urine Mucus 0 SEEN 03/03/25 17:25: Troponin T Hi Sens 2 Hr 25 H 03/03/25 17:41: POC Glucose 134 H 03/03/25 19:30: Troponin T Hi Sens 4Hr 54 H* 03/03/25 23:07: POC Glucose 183 H 03/04/25 04:00: WBC 20.0 H, RBC 2.90 L, Hgb 9.0 L, Hct 28.8 L, MCV 99.3 H, MCH 31.0, MCHC 31.3 L, RDW Std Deviation 52.9 H, RDW Coeff of Nicholas 14.5, Plt Count 169, MPV 11.1, Immature Gran % (Auto) 1.000 H, Neut % (Auto) 91.9 H, Lymph % (Auto) 1.8 L, [place] % (Auto) 5.2, Eos % (Auto) 0.0, Baso % (Auto) 0.1, Absolute Neuts (auto) 18.4 H, Absolute Lymphs (auto) 0.37 L, Nucleated RBC % 0, PT 18.4 H, INR 1.5, Sodium 137, Potassium 3.8, Chloride 107, Carbon Dioxide 18.7 L, Anion Gap 11, BUN 21 H, Creatinine 1.16, Estim Creat Clear Calc 36.55 L, Est GFR (MDRD) Non-Af 47 L, BUN/Creatinine Ratio 17.8, Glucose 175 H, Calcium 7.9, Total Bilirubin 1.94 H, AST 76 H, ALT 37 H, Alkaline Phosphatase 291 H, Total Protein 6.5, Albumin 2.7 L, Globulin 3.7, Albumin/Globulin Ratio 0.7 L 03/04/25 05:17: POC Glucose 171 H Micro: Microbiology 03/03/25 14:20 Blood Culture (Wb) - Venous Blood Culture - Preliminary 03/03/25 14:10 Blood Culture (Wb) - Venous Blood Culture - Preliminary 03/03/25 17:25 Mucosa - Nasopharyngeal Respiratory Panel (PCR) - Final 03/03/25 14:48 Mucosa - Nose SARS-CoV-2, Influenza & RSV (PCR) - Final ABG Data ABG results: ABG 03/03/25 03/03/25 14:27 15:21 Specimen Type ART ART Sample Site R Radial L Radial pH 7.47 H 7.42 Bicarbonate Actual 21.7 L 25.7 Total CO2 23 27 Base Excess -2 1 O2 Saturation 96 96 O2 % 50.0 ABG pCO2 29.8 L 40.1 ABG pO2 78 84 Javon Test Positive Positive Respiration Rate 14 O2 Delivery Device Cannula Adult Vent Vent Mode Not entered AC Tidal Volume 400.0 POC PEEP 5 Imaging Radiology Impression Chest X-Ray 03/03/25 14:45 IMPRESSION: The tip of the endotracheal tube is at the level of the woodrow. It should be pulled back approximately 2 cm. Reading Location: -[id number] Abdomen/Pelvis CT 03/03/25 15:45 IMPRESSION: Clinical correlation for mild UTI and/or cystitis. Genitourinary findings discussed above in detail. - Pulmonary parenchymal opacities to be correlated for aspiration/pneumonia as discussed above. - Nonspecific gastrointestinal findings. - Other incidental and nonemergent findings discussed above. Reading Location: [id number] Charges/Coding Procedures Hospitalists Procedures: 31679 Critical Care 1st Hr
[2025-03-04] MEDS: Chlorhexidine 15 ML PO (08:20)
--- NOTE | 2025-03-04 09:34 | CASEMGMT ---
Pt is currently undergoing a SBT. TC to the pt's NOK (Son, Salomón) regarding DC planning. Salomón states that he prefers the pt to return to [facility] at the time of DC, once the pt is medically ready. [facility] DPA notified. Salomón requests an update from the pt's RN. Pt's RN notified and plans to call the son with an update. Pt's son denies further questions or concerns at this time. DC Plan: Return to [facility] SN[facility] once medically ready.
--- NOTE | 2025-03-04 09:36 | CASEMGMT ---
Addendum entered by Katheryn He 03/04/25 10:04: Per CC, pt does not have any advanced directives. SW updated. Original Note: Discharge Planning Updates sent to [facility] with request for copies of advanced directives. Katheryn He DC Planning Asst.
[2025-03-04] MEDS: Pantoprazole Sodium 40 MG in 0.9% Normal Saline (100mL MB+) 100 ML 300 MG IV (10:33)
--- NOTE | 2025-03-04 12:41 | CHAPLAIN ---
Type of Pastoral Visit _x__ Initial Visit ___ Follow-up Visit ___ On-call Visit ___ General Patient Visit ___ Spiritual Assessment ___ Family Conference ___ Bereavement ___ Rapid Response ___ Code Blue ___ Other (describe below) Pastoral Care Referral From ___ Patient _x__ Family ___ Nurse ___ Physician ___ Mixer Runner ___ Administrative Services Officer ___ Other (describe below) Sacrament/Intervention _x__ Active listening ___ Anointing ___ Uatsdin ___ Bereavement ___ Communion ___ Lilly exploration ___ ___ Life review ___ Prayer ___ Reconciliation ___ Sacrament of Sick _x__ Supportive presence ___ Wedding ___ Other (describe below) Pastoral Comments patient was greeted but her response was one of I want out of this place; pt continues throughout the visit to show frustration through her words; pt may have some confusion but when asked where she was she correctly said the hospital; pt could not remember where she normally lives however; pt asked why she was here and why couldn't she leave; pt said this is awful and I want out; giving calm presence, reassurance of good care and people, reasoning with her that being here could help her etc was attempted by this jet blade polisher; however patient remained adamant of wanting to leave the hospital; pt refused further support or spiritual care
--- NOTE | 2025-03-04 16:36 | PN_ITS ---
Subjective Subjective Patient seen and examined. She was admitted with a complaint of shortness of breath and found to be hypoxic. He was also found to have UTI. There was concern for aspiration pneumonia. Patient was emergently intubated on admission. This morning she was extubated. At time of my review patient was extubated on room air. Her respirations, and not really answering any questions. Unable to do review of systems as patient was just looked at me and not answer any questions. She has remained hemodynamically stable. Objective Data Objective Data Vital Signs: Vital Signs Temp Pulse Resp BP Pulse Ox O2 Del Method O2 Flow Rate 98.1 F 90 20 H 92/67 93 Room Air 2 03/04/25 10:00 03/04/25 15:00 03/04/25 15:00 03/04/25 15:00 03/04/25 15:58 03/04/25 15:58 03/04/25 14:10 FiO2 30 03/04/25 09:00 Oxygen Flow Rate (L/min) 2 Oxygen Delivery Method Room Air Weight: 187 lb 9.814 oz Body Mass Index (BMI) 37.8 Intake & Output: Intake and Output for Last 24 Hours 03/02/25 03/03/25 03/04/25 23:59 23:59 23:59 Intake Total 4453.08 / 4487.46 583.57 / 583.57 Output Total 450 / 450 350 / 350 Balance 4003.08 / 4037.46 233.57 / 233.57 Lab / Micro Data 03/04/25 04:00 03/04/25 04:00 Labs: Laboratory Results - last 24 hr 03/03/25 14:20: Total Creatine Kinase 48, Triglycerides 119 03/03/25 17:25: Troponin T Hi Sens 2 Hr 25 H 03/03/25 17:41: POC Glucose 134 H 03/03/25 19:30: Troponin T Hi Sens 4Hr 54 H* 03/03/25 23:07: POC Glucose 183 H 03/04/25 04:00: WBC 20.0 H, RBC 2.90 L, Hgb 9.0 L, Hct 28.8 L, MCV 99.3 H, MCH 31.0, MCHC 31.3 L, RDW Std Deviation 52.9 H, RDW Coeff of Nicholas 14.5, Plt Count 169, MPV 11.1, Immature Gran % (Auto) 1.000 H, Neut % (Auto) 91.9 H, Lymph % (Auto) 1.8 L, [place] % (Auto) 5.2, Eos % (Auto) 0.0, Baso % (Auto) 0.1, Absolute Neuts (auto) 18.4 H, Absolute Lymphs (auto) 0.37 L, Nucleated RBC % 0, PT 18.4 H , INR 1.5, Sodium 137, Potassium 3.8, Chloride 107, Carbon Dioxide 18.7 L, Anion Gap 11, BUN 21 H, Creatinine 1.16, Estim Creat Clear Calc 36.55 L, Est GFR (MDRD) Non-Af 47 L, BUN/Creatinine Ratio 17.8, Glucose 175 H, Calcium 7.9, Total Bilirubin 1.94 H, AST 76 H, ALT 37 H, Alkaline Phosphatase 291 H, Total Protein 6.5, Albumin 2.7 L, Globulin 3.7, Albumin/Globulin Ratio 0.7 L, TSH 1.770 03/04/25 05:17: POC Glucose 171 H 03/04/25 13:15: POC Glucose 196 H Micro: Microbiology 03/03/25 14:54 Sputum, Induced/Lukens Gram Stain - Final 03/03/25 14:54 Sputum, Induced/Lukens Respiratory Culture - Preliminary 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 coli 03/03/25 14:20 Blood Culture (Wb) - Venous Blood Culture - Preliminary 03/03/25 14:10 Blood Culture (Wb) - Venous Blood Culture - Preliminary 03/03/25 17:25 Mucosa - Nasopharyngeal Respiratory Panel (PCR) - Final 03/03/25 14:48 Mucosa - Nose SARS-CoV-2, Influenza & RSV (PCR) - Final Radiography Diagnostic Testing: Radiology Impression Abdomen/Pelvis CT 03/03/25 15:45 IMPRESSION: Clinical correlation for mild UTI and/or cystitis. Genitourinary findings discussed above in detail. - Pulmonary parenchymal opacities to be correlated for aspiration/pneumonia as discussed above. - Nonspecific gastrointestinal findings. - Other incidental and nonemergent findings discussed above. Reading Location: [id number] Physical Exam Const alert Constitutional Narrative: flat affect, not answering any questions General Appearance: cooperative HEENT normocephalic, head/scalp atraumatic, moist oral mucous membranes and oropharynx normal Eyes EOMs intact bilaterally Neck supple and no JVD Lymph Lymphatic: no lymphedema noted Resp Resp Narrative: mildly diminished breath sounds bibasally, no wheezes or crackles. On 2L of oxygen. Cardio regular rate, regular rhythm, S1 normal heart sound, S2 normal heart sound and no murmurs GI normal to inspection, nondistended, normoactive bowel sounds, soft to palpation, non-tender and non-distended Extremity normal capillary refill and no clubbing, cyanosis or edema General Extremity: no tenderness to palpation of joints or extremities Skin General Skin Exam: no breakdown Neuro no focal motor deficits Neuro Narrative: flat affect Motor Exam: general weakness Psych Psych Narrative: flat affect, not responding to any questions Mood & Affect: flat affect Assessment & Plan Assessment/Plan (1) Acute hypoxic respiratory failure: (2) Sepsis: (3) Hyperlipidemia: PLAN: Plan #Acute hypoxic respiratory failure due to probable aspiration pneumonia * Was intubated on admission due to hypoxia. Now extubated and on room air. * Respiratory panel negative. COVID, flu and RSV also negative. * Cultures pending. Critical care on board. Titrate oxygen to maintain saturation above 90%. * Breathing treatments bronchodilators. * Abnormal chest CT was concerning for aspiration pneumonia. * #Sepsis due to UTI and probable aspiration pneumonia * Was tachycardic and tachypneic on admission was also febrile with temperature up to 102.6. Lactic acid was elevated at 3.4 and WBC was 13.5. Bilirubin was elevated and she was also tachypneic * Urinalysis did show evidence of elevated nitrites and leukocyte esterase as well as elevated WBC but no bacteria. * Currently on broad-spectrum IV antibiotics. Blood and urine cultures pending. * Patient was hydrated with IV fluids and responded. Critical care on board. #Elevated troponins: Likely due to demand ischemia. No chest pain. #Elevated liver enzymes, * total bilirubin is trended down to 1.94. AST and ALT are mildly elevated and ALP is elevated at 291. * CT abdomen and pelvis did not show any visualization of the gallbladder and showed no significant biliary dilatation. * will monitor for now. * #GERD: On PPI #Type 2 diabetes mellitus: On insulin sliding scale. Accu-Cheks ACHS. #Depression and anxiety: On Lexapro #Hypothyroidism: On Synthroid #DVT prophylaxis: Lovenox. Charges/Coding Visit Charges Inpatient E&M: 17538 Subs Hosp L3
[2025-03-04] MEDS: Vancomycin HCl 1,250 MG in 0.9% Normal Saline (250mL Bag) 250 ML 167 MG IV (18:32)
[2025-03-05] VITALS (19 sets, daily range): BP systolic 89–118; BP diastolic 43–71; PULSE 79–91; RESP 12–21; TEMP 36.9–38.1; O2SAT 89–95; BMI 38.0
[2025-03-05] MEDS: Piperacil/Tazobactam 3.375 GM in 0.9% Normal Saline (50mL MB+) 50 ML IV ×3 (05:30→21:31)
[2025-03-05 05:41] LABS: Hematocrit 24.7 % (37-47); Hemoglobin 7.7 g/dL (12.0-15.0); Immature Granulocytes Count 0.040 X10^3/uL (0.0-0.0); Mean Corp Hgb Conc 31.2 g/dL (32-36); Mean Corpuscular Volume 98.0 fL (81-99); Mean Platelet Vol. 11.1 fl (6.2-12.0); NRBC Flagged by Analyzer 0 % (0-5); Platelet Count 134 K/mm3 (150-450); RBC Distribution Width CV 14.4 % (11.6-14.6); RBC Distribution Width SD 51.4 fl (35.1-43.9); Red Blood Count 2.52 M/mm3 (4.2-5.4); White Blood Count 7.7 K/mm3 (4.4-11.0)
[2025-03-05 06:14] LABS: Anion Gap 9 (5-15); BUN 18 mg/dL (4-19); BUN/Creat Ratio 20.7 RATIO (10-20); Calcium,Total 8.0 mg/dL (7.6-11.0); Carbon Dioxide 20.8 mmol/L (21.0-32.0); Chloride 110 mmol/L (98-108); Estimated Creatinine Clearance 48.16 ml/min (50-250); Glucose 158 mg/dL (70-99); Potassium 3.5 mmol/L (3.3-5.1)
[2025-03-05 08:35] LABS: AST(SGOT) 101 U/L (<=31); Alanine Aminotransfer ALT/SGPT 44 U/L (<=34); Albumin, Serum 2.6 g/dL (3.4-4.8); Alkaline Phosphatase 225 U/L (35-104); Bilirubin, Direct 0.71 mg/dL (0.00-0.30); Globulin 3.4 g/dL (2.2-4.2)
[2025-03-05] MEDS: Pantoprazole Sodium 40 MG in 0.9% Normal Saline (100mL MB+) 100 ML 300 MG IV (09:40)
--- NOTE | 2025-03-05 13:42 | PN_ITS ---
Subjective Subjective Patient seen and examined. She had a sitter by her. SHe is quite confused and alert and oriented only to self. She kept asking if this was a real hospital and if it was a real doctor. Unable to do review of systems due to her confusion. She is down to 1 L of oxygen. Unable to do comprehensive review of systems due to her confusion. Objective Data Objective Data Vital Signs: Vital Signs Temp Pulse Resp BP Pulse Ox O2 Del Method O2 Flow Rate 99.9 F H 84 15 108/50 L 94 Nasal Cannula 1 03/05/25 08:00 03/05/25 13:00 03/05/25 13:00 03/05/25 13:00 03/05/25 13:00 03/05/25 13:00 03/05/25 13:00 FiO2 30 03/04/25 09:00 Oxygen Flow Rate (L/min) 1 Oxygen Delivery Method Nasal Cannula Weight: 188 lb 11.451 oz Body Mass Index (BMI) 38.0 Intake & Output: Intake and Output for Last 24 Hours 03/03/25 03/04/25 03/05/25 23:59 23:59 23:59 Intake Total 4453.08 / 4487.46 908.57 / 908.57 200 / 200 Output Total 450 / 450 500 / 850 970 / 970 Balance 4003.08 / 4037.46 408.57 / 58.57 -770 / -770 Lab / Micro Data 03/05/25 05:25 03/05/25 05:25 Labs: Laboratory Results - last 24 hr 03/04/25 13:15: POC Glucose 196 H 03/04/25 18:27: POC Glucose 207 H 03/05/25 00:02: POC Glucose 149 H 03/05/25 05:25: WBC 7.7, RBC 2.52 L, Hgb 7.7 L, Hct 24.7 L, MCV 98.0, MCH 30.6, MCHC 31.2 L, RDW Std Deviation 51.4 H, RDW Coeff of Nicholas 14.4, Plt Count 134 L, MPV 11.1, Immature Gran % (Auto) 0.500, Neut % (Auto) 80.4 H, Lymph % (Auto) 9.8 L, [place] % (Auto) 8.3, Eos % (Auto) 0.9, Baso % (Auto) 0.1, Absolute Neuts (auto) 6.2, Absolute Lymphs (auto) 0.75 L, Nucleated RBC % 0, Sodium 140, Potassium 3.5, Chloride 110 H, Carbon Dioxide 20.8 L, Anion Gap 9, BUN 18, Creatinine 0.89, Estim Creat Clear Calc 48.16 L, Est GFR (MDRD) Non-Af 65, BUN/Creatinine Ratio 20.7 H, Glucose 158 H, Calcium 8.0, Total Bilirubin 0.94, Direct Bilirubin 0.71 H, AST 101 H, ALT 44 H, Alkaline Phosphatase 225 H, Total Protein 6.0, A lbumin 2.6 L, Globulin 3.4 03/05/25 05:27: POC Glucose 141 H 03/05/25 11:45: POC Glucose 210 H Micro: Microbiology 03/03/25 14:20 Blood Culture (Wb) - Venous Blood Culture - Preliminary 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 coli 03/03/25 17:25 Mucosa - Nasopharyngeal Respiratory Panel (PCR) - Final 03/03/25 14:48 Mucosa - Nose SARS-CoV-2, Influenza & RSV (PCR) - Final Physical Exam Const alert Constitutional Narrative: flat affect, not answering any questions Orientation / Consciousness: confused HEENT normocephalic, head/scalp atraumatic, moist oral mucous membranes and oropharynx normal Eyes EOMs intact bilaterally Neck supple and no JVD Lymph Lymphatic: no lymphedema noted Resp Resp Narrative: mildly diminished breath sounds bibasally, no wheezes or crackles. On 1L of oxygen. Cardio regular rate, regular rhythm, S1 normal heart sound, S2 normal heart sound and no murmurs GI normal to inspection, nondistended, normoactive bowel sounds, soft to palpation, non-tender and non-distended Extremity normal capillary refill and no clubbing, cyanosis or edema General Extremity: no tenderness to palpation of joints or extremities Skin General Skin Exam: no breakdown Neuro no focal motor deficits Neuro Narrative: flat affect Motor Exam: general weakness Psych Psych Narrative: flat affect, confused Mood & Affect: flat affect Assessment & Plan Assessment/Plan (1) Acute hypoxic respiratory failure: (2) Sepsis: (3) Hyperlipidemia: PLAN: Plan #Acute hypoxic respiratory failure due to probable aspiration pneumonia * Was intubated on admission due to hypoxia. Now extubated and on 1 L of oxygen today. * Respiratory panel negative. COVID, flu and RSV also negative. * Critical care on board. Titrate oxygen to maintain saturation above 90%. * Breathing treatments bronchodilators. * Abnormal chest CT was concerning for aspiration pneumonia. * Blood, sputum and urinary cultures all growing E. coli * #Sepsis due to UTI and probable aspiration pneumonia * Was tachycardic and tachypneic on admission was also febrile with temperature up to 102.6. Lactic acid was elevated at 3.4 and WBC was 13.5. Bilirubin was elevated and she was also tachypneic * Urinalysis did show evidence of elevated nitrites and leukocyte esterase as well as elevated WBC but no bacteria. * Currently on broad-spectrum IV antibiotics. Blood and urine cultures as well as sputum cultures growing E. coli * will consult ID * #Elevated troponins: Likely due to demand ischemia. No chest pain. Stable. Initial troponin was 54 but subsequently trended up to 25. This was likely due to her hypoxia. #Elevated liver enzymes, * total bilirubin today is down to 0.94. However AST and ALT have trended up slightly though ALP has trended down. Direct bilirubin is 0.7 which is slightly elevated. * CT abdomen and pelvis did not show any visualization of the gallbladder and showed no significant biliary dilatation. * Will check hepatitis panel * #GERD: On PPI #Type 2 diabetes mellitus: On insulin sliding scale. Accu-Cheks ACHS. #Depression and anxiety: On Lexapro #Hypothyroidism: On Synthroid #DVT prophylaxis: Lovenox. Charges/Coding Visit Charges Inpatient E&M: 23310 Subs Hosp L2
--- NOTE | 2025-03-05 15:01 | PCM.PN.TICU ---
Objective Data Objective Data Vital Signs: Vital Signs Last response Temperature 37.7 C H 03/05/25 08:00 Temperature Source Core 03/05/25 08:00 Pulse Rate 84 03/05/25 13:00 Pulse Strength Normal (2+) 03/04/25 10:00 Respiratory Rate 15 03/05/25 13:00 Respiratory Effort Normal, Non-Labored 03/05/25 03:54 Respiratory Depth Normal 03/05/25 03:54 Respiratory Pattern Normal 03/05/25 03:54 Blood Pressure 108/50 L 03/05/25 13:00 Blood Pressure Mean 69 03/05/25 13:00 Blood Pressure Source Monitor 03/05/25 13:00 Blood Pressure Position Semi-Fowlers 03/05/25 13:00 Blood Pressure Location Right Arm 03/05/25 13:00 Pulse Ox 94 03/05/25 14:55 Oxygen Delivery Method Nasal Cannula 03/05/25 14:55 Oxygen Flow Rate (L/min) 1 03/05/25 14:55 Fraction of Inspired Oxygen (FIO2) 30 03/04/25 09:00 I&O: I&O Last 24 Hours 03/04/25 03/05/25 03/05/25 23:59 11:59 23:59 Intake Total 665 / 908.57 200 / 200 Output Total 350 / 850 970 / 970 Balance 315 / 58.57 -770 / -770 I&O: Total Stay 03/03/25 14:09 thru 03/05/25 10:03 Intake Total 5561.65 Output Total 1920 Balance 3641.65 Current Meds Ordered / Administered: Current meds ordered / Administered Generic Name Dose Route Start Last Admin Trade Name Freq PRN Reason Stop Dose Admin Acetaminophen 650 mg 03/03/25 21:35 03/04/25 02:22 Acetaminophen 650 Mg/20 Ml Udc GT 650 mg Q4H PRN PRN Administration Pain 1-10 or Fever Albuterol Sulfate 2.5 mg 03/03/25 16:59 Albuterol 2.5 Mg/3 Ml Vial.Neb. INHALATION Q2H PRN PRN SOB &/OR WHEEZING Atorvastatin Calcium 40 mg 03/03/25 22:00 03/04/25 21:47 Atorvastatin Calcium 40 Mg Tablet PO Not Given QHS SUDHIR Enoxaparin Sodium 40 mg 03/04/25 10:00 03/05/25 08:13 Enoxaparin 40 Mg/0.4 Ml Syringe SC 40 mg DAILY SUDHIR Administration Glucagon 1 mg 03/03/25 16:59 Glucagon 1 Mg/Ml Syringe IM X1 PRN HYPOGLYCEMIA Protocol Dextrose 250 mls @ 0 mls/hr 03/03/25 16:59 Dextrose 10%-Water IV .Q0M PRN HYPOGLYCEMIA Protocol As Directed Pantoprazole Sodium 40 mg/ 100 mls @ 300 mls/hr 03/04/25 10:00 03/05/25 10:03 Sodium Chloride IV Infused Q24 SUDHIR Infusion Piperacillin Sod/Tazobactam 50 mls @ 12.5 mls/hr 03/03/25 22:00 03/05/25 13:10 Sod 3.375 gm/ Sodium Chloride IV 12.5 mls/hr Q8 SUDHIR Administration Vancomycin IV-PHARMACY TO DOSE 500 mls @ 250 mls/hr 03/03/25 16:59 1 each/ Sodium Chloride IV X1 PRN Rx to Dose Protocol Sodium Chloride 250 mls @ 15 mls/hr 03/03/25 17:01 IV .[id number] PRN Saline Flush Sodium Chloride 250 mls @ 15 mls/hr 03/03/25 17:01 IV .[id number] PRN Additional IVPB Infusion Vancomycin HCl 1,250 mg/ 275 mls @ 167 mls/hr 03/04/25 18:00 03/04/25 20:11 Sodium Chloride IV Infused Q24H SUDHIR Infusion Insulin Human Lispro 0 unit 03/03/25 18:00 03/05/25 11:46 Insulin Lispro 100 Unit/Ml Insuln.Pen SC 2 u Q6 SUDHIR Administration Protocol Levothyroxine Sodium 50 mcg 03/05/25 06:00 03/05/25 05:30 Levothyroxine 50 Mcg Tablet PO Not Given [email or web address] [facility] Levothyroxine Sodium 75 mcg 03/04/25 06:00 03/04/25 05:07 Levothyroxine 75 Mcg Tablet PO 75 mcg [email or web address] SUDHIR Administration Ondansetron HCl 4 mg 03/03/25 16:59 Ondansetron 4 Mg/2 Ml Vial IV Q8H PRN PRN NAUSEA/VOMITING Senna/Docusate Sodium 2 tablet 03/03/25 16:59 Senna/Docusate Sodium 1 Tablet PO BID PRN PRN Constipation Sodium Chloride 10 - 40 ml 03/03/25 17:01 0.9% Saline Lock 10 Ml Syringe IV UD PRN SALINE FLUSH Vancomycin Protocol 1 lab 03/06/25 16:30 Vancomycin Trough/Random Due 03/06/25 18:30 DAILY [facility] Lab / Micro Data 03/05/25 05:25 03/05/25 05:25 Labs: Laboratory Results - last 24 hr 03/04/25 18:27: POC Glucose 207 H 03/05/25 00:02: POC Glucose 149 H 03/05/25 05:25: WBC 7.7, RBC 2.52 L, Hgb 7.7 L, Hct 24.7 L, MCV 98.0, MCH 30.6, MCHC 31.2 L, RDW Std Deviation 51.4 H, RDW Coeff of Nicholas 14.4, Plt Count 134 L, MPV 11.1, Immature Gran % (Auto) 0.500, Neut % (Auto) 80.4 H, Lymph % (Auto) 9.8 L, [place] % (Auto) 8.3, Eos % (Auto) 0.9, Baso % (Auto) 0.1, Absolute Neuts (auto) 6.2, Absolute Lymphs (auto) 0.75 L, Nucleated RBC % 0, Sodium 140, Potassium 3.5, Chloride 110 H, Carbon Dioxide 20.8 L, Anion Gap 9, BUN 18, Creatinine 0.89, Estim Creat Clear Calc 48.16 L, Est GFR (MDRD) Non-Af 65, BUN/Creatinine Ratio 20.7 H, Glucose 158 H, Calcium 8.0, Total Bilirubin 0.94, Direct Bilirubin 0.71 H, AST 101 H, ALT 44 H, Alkaline Phosphatase 225 H, Total Protein 6.0, Albumin 2.6 L, Globulin 3.4 03/05/25 05:27: POC Glucose 141 H 03/05/25 11:45: POC Glucose 210 H 03/05/25 14:10: Hep Bs Antibody Nonreactive Micro: Microbiology 03/03/25 14:20 Blood Culture (Wb) - Venous Blood Culture - Preliminary 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 coli Assessment and Plan . Assessment and plan: HPI Patient seen and examined. Chart and data reviewed. She is awake and alert, NAD Breathing RA comfortably HD stable UCX and BCX reveal GNR - ESBL-producing EXAM GEN NAD VS as above HEENT o/p clear NECK obese COR RRR CHEST CTA ABD soft EXT minimal edema SKIN w/d NACHO NF IMP 1. Acute respiratory failure - resolved - extubated 03/04 2. Sepsis syndrome 3. 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 ATX RLL 6. h/o esophageal stricture REC -consider changing to carbapenem -VTE ppx -mobilize as able OK to leave ICU - we are available as needed The entirety of this encounter was done via Telemedicine
[2025-03-05 15:03] LABS: Hepatitis B Surface Antigen Nonreactive (Nonreactive); Hepatitis C Antibody Nonreactive (Nonreactive)
[2025-03-05] MEDS: Vancomycin HCl 1,250 MG in 0.9% Normal Saline (250mL Bag) 250 ML 167 MG IV (17:14)
[2025-03-06 03:11] VITALS: BMI 38.2
[2025-03-06 03:30] VITALS: BP 107/63; PULSE 75; RESP 16; TEMP 36.9; O2SAT 91
[2025-03-06] MEDS: Piperacil/Tazobactam 3.375 GM in 0.9% Normal Saline (50mL MB+) 50 ML IV ×3 (05:11→21:29)
[2025-03-06 06:41] LABS: Hematocrit 24.4 % (37-47); Hemoglobin 7.7 g/dL (12.0-15.0); Immature Granulocytes Count 0.030 X10^3/uL (0.0-0.0); Mean Corp Hgb Conc 31.6 g/dL (32-36); Mean Corpuscular Volume 98.4 fL (81-99); Mean Platelet Vol. 10.9 fl (6.2-12.0); NRBC Flagged by Analyzer 0 % (0-5); Platelet Count 145 K/mm3 (150-450); RBC Distribution Width CV 14.2 % (11.6-14.6); RBC Distribution Width SD 51.4 fl (35.1-43.9); Red Blood Count 2.48 M/mm3 (4.2-5.4); White Blood Count 4.3 K/mm3 (4.4-11.0)
[2025-03-06 06:53] VITALS: O2SAT 93
[2025-03-06 07:02] LABS: Anion Gap 8 (5-15); BUN 14 mg/dL (4-19); BUN/Creat Ratio 21.1 RATIO (10-20); Calcium,Total 8.4 mg/dL (7.6-11.0); Carbon Dioxide 20.7 mmol/L (21.0-32.0); Chloride 109 mmol/L (98-108); Estimated Creatinine Clearance 53.79 ml/min (50-250); Glucose 180 mg/dL (70-99); Potassium 3.6 mmol/L (3.3-5.1)
[2025-03-06] MEDS: Pantoprazole Sodium 40 MG in 0.9% Normal Saline (100mL MB+) 100 ML 300 MG IV (08:56)
[2025-03-06 09:27] VITALS: BP 130/72; PULSE 72; RESP 18; TEMP 36.7; O2SAT 94
--- NOTE | 2025-03-06 10:10 | PN_ITS ---
Subjective Subjective Patient seen and examined with her nurse by her bedside.. She remains confused though she was more communicative today. She had no active complaints. She knows her name but does not know where she is or what year it is. Unable to do comprehensive review of systems due to her confusion. She has remained hemodynamically stable. Objective Data Objective Data Vital Signs: Vital Signs Temp Pulse Resp BP Pulse Ox O2 Del Method O2 Flow Rate 98.1 F 72 18 130/72 H 94 Room Air 1 03/06/25 09:27 03/06/25 09:27 03/06/25 09:27 03/06/25 09:27 03/06/25 09:27 03/06/25 09:27 03/05/25 14:55 FiO2 30 03/04/25 09:00 Oxygen Flow Rate (L/min) 1 Oxygen Delivery Method Room Air Weight: 190 lb 0.615 oz Body Mass Index (BMI) 38.2 Intake & Output: Intake and Output for Last 24 Hours 03/04/25 03/05/25 03/06/25 23:59 23:59 23:59 Intake Total 908.57 / 908.57 765 / 885 320 / 320 Output Total 500 / 850 970 / 1270 600 / 600 Balance 408.57 / 58.57 -205 / -385 -280 / -280 Lab / Micro Data 03/06/25 06:24 03/06/25 06:24 Labs: Laboratory Results - last 24 hr 03/05/25 11:45: POC Glucose 210 H 03/05/25 14:10: Hep Bs Antigen Nonreactive, Hep Bs Antibody Nonreactive, Hepatitis C Antibody Nonreactive 03/05/25 16:33: POC Glucose 179 H 03/05/25 21:32: POC Glucose 224 H 03/06/25 06:24: WBC 4.3 L, RBC 2.48 L, Hgb 7.7 L, Hct 24.4 L, MCV 98.4, MCH 31.0, MCHC 31.6 L, RDW Std Deviation 51.4 H, RDW Coeff of Nicholas 14.2, Plt Count 145 L, MPV 10.9, Immature Gran % (Auto) 0.700, Neut % (Auto) 73.1 H, Lymph % (Auto) 18.2 L, [place] % (Auto) 6.2, Eos % (Auto) 1.6, Baso % (Auto) 0.2, Absolute Neuts (auto) 3.2, Absolute Lymphs (auto) 0.79 L, Nucleated RBC % 0, Sodium 138, Potassium 3.6, Chloride 109 H, Carbon Dioxide 20.7 L, Anion Gap 8, BUN 14, C reatinine 0.68 L, Estim Creat Clear Calc 53.79, Est GFR (MDRD) Non-Af 87, B UN/Creatinine Ratio 21.1 H, Glucose 180 H, Calcium 8.4 03/06/25 06:29: POC Glucose 164 H Micro: Microbiology 03/03/25 14:54 Sputum, Induced/Lukens Gram Stain - Final 03/03/25 14:54 Sputum, Induced/Lukens Respiratory Culture - Final ESBL Escherichia coli Meth. resistant Staph. aureus 03/03/25 14:48 Urine Catheter - Catheter Urine Culture - Final ESBL Escherichia coli 03/03/25 14:10 Blood Culture (Wb) - Venous Blood Culture - Final GNR lactose sawing and assembly supervisor 03/03/25 14:20 Blood Culture (Wb) - Venous Blood Culture - Final ESBL Escherichia coli 03/03/25 17:25 Mucosa - Nasopharyngeal Respiratory Panel (PCR) - Final 03/03/25 14:48 Mucosa - Nose SARS-CoV-2, Influenza & RSV (PCR) - Final Physical Exam Const alert Constitutional Narrative: flat affect, not answering any questions General Appearance: cooperative Orientation / Consciousness: confused HEENT normocephalic, head/scalp atraumatic, moist oral mucous membranes and oropharynx normal Eyes EOMs intact bilaterally Neck supple and no JVD Lymph Lymphatic: no lymphedema noted Resp Resp Narrative: mildly diminished breath sounds bibasally, no wheezes or crackles. On room air. Cardio regular rate, regular rhythm, S1 normal heart sound, S2 normal heart sound and no murmurs GI normal to inspection, nondistended, normoactive bowel sounds, soft to palpation, non-tender and non-distended Extremity normal capillary refill and no clubbing, cyanosis or edema General Extremity: no tenderness to palpation of joints or extremities Skin General Skin Exam: no breakdown Neuro no focal motor deficits Neuro Narrative: flat affect Motor Exam: general weakness Psych Psych Narrative: flat affect, confused Mood & Affect: flat affect Assessment & Plan Assessment/Plan (1) Acute hypoxic respiratory failure: (2) Sepsis: (3) Hyperlipidemia: PLAN: Plan #Acute hypoxic respiratory failure due to probable aspiration pneumonia * Was intubated on admission due to hypoxia. Now extubated and down to room air today. * Respiratory panel negative. COVID, flu and RSV also negative. * Critical care on board. Titrate oxygen to maintain saturation above 90%. * Breathing treatments bronchodilators. * Abnormal chest CT was concerning for aspiration pneumonia. * Blood, sputum and urinary cultures all growing E. coli. Sputum cultures also growing MRSA. On IV vancomycin and Zosyn. * #Sepsis due to UTI and probable aspiration pneumonia * Was tachycardic and tachypneic on admission was also febrile with temperature up to 102.6. Lactic acid was elevated at 3.4 and WBC was 13.5. Bilirubin was elevated and she was also tachypneic * Urinalysis did show evidence of elevated nitrites and leukocyte esterase as well as elevated WBC but no bacteria. * Currently on broad-spectrum IV antibiotics. Blood and urine cultures as well as sputum cultures growing E. coli * ID consulted. Will likely see patient tomorrow. * #E. coli bacteremia: As above #Elevated troponins: * Likely due to demand ischemia. No chest pain. Stable. * Initial troponin was 54 but subsequently trended down to 25. This was likely due to her hypoxia. #Elevated liver enzymes, * total bilirubin today is down to 0.94. However AST and ALT have trended up slightly though ALP has trended down. Direct bilirubin is 0.7 which is slightly elevated. * CT abdomen and pelvis did not show any visualization of the gallbladder and showed no significant biliary dilatation. * Will check hepatitis panel * # Pancytopenia: * Hemoglobin is 7.7 with WBC of 4.3 and platelets of 145. Platelets up from yesterday. * Hemoglobin has of dropped from 10.4 when she was admitted. * Will check stool for occult blood and check iron panel and ferritin. * Hold all blood thinners * #GERD: On PPI #Type 2 diabetes mellitus: On insulin sliding scale. Accu-Cheks ACHS. #Depression and anxiety: On Lexapro #Hypothyroidism: On Synthroid #DVT prophylaxis: Lovenox. Hold Lovenox in light of anemia. SCDs Charges/Coding Visit Charges Inpatient E&M: 91989 Subs Hosp L2
[2025-03-06 11:18] LABS: Ferritin 310 ng/mL (22-378); Iron 51 ug/dL (50-170); Iron Binding Capacity,Unsat 95 ug/dL (228-428)
[2025-03-06 11:24] LABS: Iron Binding Capacity,Total 147 ug/dL (250-450)
[2025-03-06 13:58] VITALS: BP 118/56; PULSE 73; RESP 18; TEMP 36.2; O2SAT 94
[2025-03-06 18:16] LABS: Vancomycin, Trough Level 11.0 ug/mL (5.0-15.0)
--- NOTE | 2025-03-06 18:33 | PHA.PHARE_ITS ---
Consult Antibiotic Management Pharmacy has been consulted to manage selected antibiotic: Vancomycin Type of Intervention Type of Consult: Follow-up Suspected Infection Suspected Infection: Sepsis Labs Labs: Sodium 138 mmol/L (133-145) 03/06/25 06:24 Potassium 3.6 mmol/L (3.3-5.1) 03/06/25 06:24 Chloride 109 mmol/L (98-108) H 03/06/25 06:24 Carbon Dioxide 20.7 mmol/L (21.0-32.0) L 03/06/25 06:24 Anion Gap 8 (5-15) 03/06/25 06:24 BUN 14 mg/dL (4-19) 03/06/25 06:24 Creatinine 0.68 mg/dL (0.70-1.20) L 03/06/25 06:24 Est GFR (MDRD) Non-Af 87 (>60) 03/06/25 06:24 BUN/Creatinine Ratio 21.1 RATIO (10-20) H 03/06/25 06:24 Glucose 180 mg/dL (70-99) H 03/06/25 06:24 Vancomycin Trough 11.0 ug/mL (5.0-15.0) 03/06/25 17:15 Microbiology Microbiology: Microbiology 03/03/25 14:54 Sputum, Induced/Lukens Gram Stain - Final 03/03/25 14:54 Sputum, Induced/Lukens Respiratory Culture - Final ESBL Escherichia coli Meth. resistant Staph. aureus 03/03/25 14:48 Urine Catheter - Catheter Urine Culture - Final ESBL Escherichia coli 03/03/25 14:10 Blood Culture (Wb) - Venous Blood Culture - Final GNR lactose crm technical lead 03/03/25 14:20 Blood Culture (Wb) - Venous Blood Culture - Final ESBL Escherichia coli 03/03/25 17:25 Mucosa - Nasopharyngeal Respiratory Panel (PCR) - Final 03/03/25 14:48 Mucosa - Nose SARS-CoV-2, Influenza & RSV (PCR) - Final Goal Trough Goal Trough: 15-20 mcg/mL Pharmacy Plan for Drug Dosing Pharmacy Plan for Drug Dosing: VANCOMYCIN LEVEL RECEIVED Current Vancomycin Dose: 1250mg q24h (at 1800) Number of Doses Received: x2 of current dose Vancomycin Level: 11 (drawn 03/06 at 1715) Hours Since Last Dose: 12 hours since last 1250mg dose (03/05 at 1714) Renal Function: SrCr 0.68 Renal Function Trend: SrCr improving (was 1.16 on 03/04) Lab/Micro: Vancomycin Plan/Comments: resulted trough of 11 is below the ordered goal trough range of 15-20. due to patients improving renal function, recommend changing dose to 750mg q12h and checking a trough prior to the 4th dose Pending Level: 03/08/25 at 0630 Pharmacy Service will continue to monitor and adjust dosing as required. Follow-Up Labs Follow-Up Labs: Trough: Vancomycin (03/08/25 at 0630)
[2025-03-06] MEDS: Vancomycin HCl 750 MG in 0.9% Normal Saline (250mL Bag) 250 ML 250 MG IV (19:15)
[2025-03-06 20:30] VITALS: BP 127/61; PULSE 75; RESP 16; TEMP 36.7; O2SAT 92
[2025-03-07 02:30] VITALS: BP 122/65; PULSE 74; RESP 16; TEMP 36.6; O2SAT 91
[2025-03-07] MEDS: 0.9% Saline Lock 10 ML Syringe IV ×2 (05:20→18:50)
[2025-03-07] MEDS: Piperacil/Tazobactam 3.375 GM in 0.9% Normal Saline (50mL MB+) 50 ML IV (05:20)
[2025-03-07 05:49] LABS: Hematocrit 26.5 % (37-47); Hemoglobin 8.2 g/dL (12.0-15.0); Immature Granulocytes Count 0.060 X10^3/uL (0.0-0.0); Mean Corp Hgb Conc 30.9 g/dL (32-36); Mean Corpuscular Volume 98.9 fL (81-99); Mean Platelet Vol. 11.2 fl (6.2-12.0); NRBC Flagged by Analyzer 0 % (0-5); POSITIVE COUNT YES; RBC Distribution Width CV 14.2 % (11.6-14.6); RBC Distribution Width SD 51.2 fl (35.1-43.9); Red Blood Count 2.68 M/mm3 (4.2-5.4); White Blood Count 3.7 K/mm3 (4.4-11.0)
[2025-03-07 06:00] VITALS: BMI 38.3
[2025-03-07 06:12] LABS: Anion Gap 9 (5-15); BUN 11 mg/dL (4-19); BUN/Creat Ratio 16.6 RATIO (10-20); Calcium,Total 8.5 mg/dL (7.6-11.0); Carbon Dioxide 22.5 mmol/L (21.0-32.0); Chloride 108 mmol/L (98-108); Estimated Creatinine Clearance 53.82 ml/min (50-250); Glucose 179 mg/dL (70-99); Potassium 3.7 mmol/L (3.3-5.1)
[2025-03-07] MEDS: Vancomycin HCl 750 MG in 0.9% Normal Saline (250mL Bag) 250 ML 250 MG IV ×2 (06:24→18:50)
[2025-03-07 06:57] VITALS: O2SAT 95
[2025-03-07 07:20] LABS: Differential Indicated SCAN CRITERIA MET
[2025-03-07 09:35] VITALS: BP 135/68; PULSE 71; RESP 16; TEMP 36.3; O2SAT 94
--- NOTE | 2025-03-07 10:15 | PCM.PN.HOSP ---
Reason for Visit Chief Complaint: Patient came in hypoxic Subjective Subjective Denies complaints Objective Data Objective Data Vital Signs: Vital Signs Temp Pulse Resp BP Pulse Ox O2 Del Method O2 Flow Rate 36.3 C L 71 16 135/68 H 94 Room Air 1 03/07/25 09:35 03/07/25 09:35 03/07/25 09:35 03/07/25 09:35 03/07/25 09:35 03/07/25 09:35 03/05/25 14:55 FiO2 30 03/04/25 09:00 Oxygen Flow Rate (L/min) 1 Oxygen Delivery Method Room Air Weight: 86.3 kg Body Mass Index (BMI) 38.3 Intake & Output: Intake and Output for Last 24 Hours 03/05/25 03/06/25 03/07/25 23:59 23:59 23:59 Intake Total 765 / 885 805 / 925 435 / 435 Output Total 970 / 1270 600 / 1050 950 / 950 Balance -205 / -385 205 / -125 -515 / -515 Lab / Micro Data 03/07/25 05:17 03/07/25 05:17 Labs: Laboratory Results - last 24 hr 03/06/25 06:24: Iron 51, TIBC 147 L, Iron Saturation 35.0, Unsaturated IBC 95 L, Ferritin 310 03/06/25 10:31: POC Glucose 204 H 03/06/25 17:15: Vancomycin Trough 11.0 03/06/25 17:59: POC Glucose 159 H 03/06/25 21:28: POC Glucose 189 H 03/07/25 05:17: WBC 3.7 L, RBC 2.68 L, Hgb 8.2 L, Hct 26.5 L, MCV 98.9, MCH 30.6, MCHC 30.9 L, RDW Std Deviation 51.2 H, RDW Coeff of Nicholas 14.2, Plt Count TNP, MPV 11.2, Immature Gran % (Auto) 1.600 H, Neut % (Auto) 64.9, Lymph % (Auto) 24.7, Cross % (Auto) 5.8, Eos % (Auto) 2.5, Baso % (Auto) 0.5, Absolute Neuts (auto) 2.4, Absolute Lymphs (auto) 0.90, Nucleated RBC % 0, Platelet Estimate ADEQUATE, Plt Morphology Comment CLUMPED, Sodium 139, Potassium 3.7, Chloride 108, Carbon Dioxide 22.5, Anion Gap 9, BUN 11, Creatinine 0.65 L, Estim Creat Clear Calc 53.82, Est GFR (MDRD) Non-Af 88, BUN/Creatinine Ratio 16.6, Glucose 179 H, Calcium 8.5 03/07/25 06:23: POC Glucose 165 H Micro: Microbiology 03/03/25 14:54 Sputum, Induced/Lukens Gram Stain - Final 03/03/25 14:54 Sputum, Induced/Lukens Respiratory Culture - Final ESBL Escherichia coli Meth. resistant Staph. aureus 03/03/25 14:48 Urine Catheter - Catheter Urine Culture - Final ESBL Escherichia coli 03/03/25 14:10 Blood Culture (Wb) - Venous Blood Culture - Final GNR lactose turning sander tender 03/03/25 14:20 Blood Culture (Wb) - Venous Blood Culture - Final ESBL Escherichia coli 03/03/25 17:25 Mucosa - Nasopharyngeal Respiratory Panel (PCR) - Final 03/03/25 14:48 Mucosa - Nose SARS-CoV-2, Influenza & RSV (PCR) - Final Physical Exam Const alert and no apparent distress Constitutional Narrative: Lying in bed on her right side. Pleasantly confused. Resp normal respiratory effort, no retractions, no use of accessory muscles and clear to auscultation bilaterally Cardio regular rate, regular rhythm, S1 normal heart sound and S2 normal heart sound GI normal to inspection, nondistended, normoactive bowel sounds, soft to palpation, non-tender and non-distended Extremity normal to inspection, full ROM and no clubbing, cyanosis or edema Neuro Sensorium / Orientation: awake, alert, oriented to person, oriented to place and oriented to time Assessment & Plan Assessment/Plan (1) Acute hypoxic respiratory failure: (2) Sepsis: (3) Hyperlipidemia: PLAN: Plan Acute hypoxic respiratory failure due to probable aspiration pneumonia Was intubated on admission due to hypoxia. Now extubated and down to room air today. Respiratory panel negative. COVID, flu and RSV also negative. Critical care on board. Titrate oxygen to maintain saturation above 90%. Breathing treatments bronchodilators. Abnormal chest CT was concerning for aspiration pneumonia. Blood, sputum and urinary cultures all growing E. coli. Sputum cultures also growing MRSA. On IV vancomycin and Zosyn. Pneumonia E. coli and MRSA. iglesia and vancomycin ID following Sepsis due to UTI and pneumonia Was tachycardic and tachypneic on admission was also febrile with temperature up to 102.6. Lactic acid was elevated at 3.4 and WBC was 13.5. Bilirubin was elevated and she was also tachypneic Urinalysis did show evidence of elevated nitrites and leukocyte esterase as well as elevated WBC but no bacteria. Currently on broad-spectrum IV antibiotics. Blood and urine cultures as well as sputum cultures growing E. coli ID consulted. E. coli bacteremia: As above Elevated troponins: Likely due to demand ischemia. No chest pain. Stable. Initial troponin was 54 but subsequently trended down to 25. This was likely due to her hypoxia. Elevated liver enzymes, total bilirubin today is down to 0.94. However AST and ALT have trended up slightly though ALP has trended down. Direct bilirubin is 0.7 which is slightly elevated. CT abdomen and pelvis did not show any visualization of the gallbladder and showed no significant biliary dilatation. Will check hepatitis panel Pancytopenia: Hemoglobin is 7.7 with WBC of 4.3 and platelets of 145. Platelets up from yesterday. Hemoglobin has of dropped from 10.4 when she was admitted. Will check stool for occult blood and check iron panel and ferritin. Hold all blood thinners Chronic medical conditions: GERD: On PPI type 2 diabetes mellitus: On insulin sliding scale. Accu-Cheks ACHS. Depression and anxiety: On Lexapro Hypothyroidism: On Synthroid DVT prophylaxis: Lovenox. Hold Lovenox in light of anemia. SCDs Charges/Coding Visit Charges Inpatient E&M: 22555 Subs Hosp L2
--- NOTE | 2025-03-07 10:28 | CON.PCM.ID_ITS ---
Assessment & Plan Assessment/Plan (1) Sepsis: PLAN: sepsis due to esbl ecoli bacteremia from pneumonia and complicated uti - sputum cx with MRSA and ESBL ecoli. CT showed cystitis and pneumonia. Overall improved, wbc better, fever resolved, feeling better. Will change to vanc/iglesia for better ESBL coverage. Will follow, thank you (2) Acute hypoxic respiratory failure: (3) Bacteremia due to Gram-negative bacteria: HPI Consult Data Date of Consult: 03/07/25 HPI Narrative Reason for Consultation: bacteremia HPI Narrative: STEVE VIEIRA, is a 79 F with h/o DM, depression, presented to ED 03/03 with acute onset fever, dyspnea, not feeling well. She is unable to provide history. In ED, was intubated, admitted to icu on vanc/zosyn. Now off vent, out of icu. Feeling ok. Full ROS performed and neg except as noted above. Denies cough, dyspnea, abd pain, n/v/d. [facility] Medical History History of ESBL E. coli infection Chronic depression Uncontrolled type 2 diabetes mellitus with hyperglycemia Chronic anemia Diabetes Kidney stones Adult failure to thrive Hyperglycemia due to diabetes mellitus Acute dehydration Head injury Home Medications ?Medication ?Instructions ?Recorded ?Last Taken ?Type levothyroxine 50 mcg tablet 50 mcg PO .LEOPOLDO thyro id 06/07/14 03/03/25 History atorvastatin 40 mg tablet 40 mg PO QHS CHOLESTEROL 03/02/25 History escitalopram oxalate 10 mg tablet 10 mg PO DAILY DEPRE SS 05/28/19 03/03/25 History levothyroxine 25 mcg tablet 75 mcg PO .MWF thyroid 04/2203/02/25 History acetaminophen 325 mg tablet 650 mg (2 x 325 mg) PO Q6H PRN PRN 12/06/23 03/03/25 Rx Pain 1-10 Or Fever>100.7 #0 tabs melatonin 3 mg tablet 3 mg PO QHS PRN PRN Insomnia #0 12/06/23 03/02/25 Rx tabs menthol 0.44 %-zinc oxide 20.6 % 1 applic topical BID redness 12/06/23 12/06/23 History topical ointment (Calmoseptine) acetaminophen 650 mg rectal 650 mg W[place] Q4H PRN fever or pain 03/03/25 Unknown History suppository bisacodyl 10 mg rectal suppository 10 mg [place] DAILY PRN constipation 03/03/25 Unknown History cholecalciferol (vitamin D3) 1,250 1,250 mcg PO .Qmond ay supplement 03/03/25 02/28/25 History mcg (50,000 unit) capsule ferrous sulfate 325 mg (65 mg 325 mg PO BID iron suppl ement 03/03/25 03/03/25 History iron) tablet (FeroSul) guaifenesin 100 mg/5 mL oral 200 mg PO Q4H PRN congest ion, cough 03/03/25 Unknown History liquid (Adult Tussin Chest Congestion) insulin glargine 100 unit/mL (3 26 unit subcut QPM maria de jesus betes 03/03/25 03/02/25 History mL) subcutaneous pen (Lantus Solostar U-100 Insulin) insulin glargine 100 unit/mL (3 40 unit subcut .am maria de jesus betes 03/03/25 03/03/25 History mL) subcutaneous pen (Lantus Solostar U-100 Insulin) insulin lispro 100 unit/mL 5 unit subcut BIDAC diabete s 03/03/25 03/03/25 History subcutaneous pen (Humalog KwikPen (U-100) Insulin) insulin lispro 100 unit/mL 1 sliding scale dose subcut .AC 03/03/25 03/03/25 History subcutaneous solution (Humalog Diabetes U-100 Insulin) magnesium hydroxide 400 mg/5 mL 30 ml PO DAILY PRN con stipation 03/03/25 Unknown History oral suspension (Milk of Magnesia) oxybutynin chloride 10 mg 10 mg PO .HS bladder spasms 03/03/25 03/02/25 History tablet,extended release 24 hr pantoprazole 20 mg tablet,delayed 20 mg PO DAILY GERD 03/03/25 03/03/25 History release sennosides 8.6 mg-docusate sodium 1 tab PO DAILY const ipation 03/03/25 03/03/25 History 50 mg tablet (Stool Softener-Stimulant Laxative) Allergy/AdvReac Type Severity Reaction Status Date / Time venlafaxine HCl (From Allergy Rash Verified 03/03/25 14:19 Effexor) meclizine AdvReac Other Verified 03/03/25 14:19 Surgical History History of cholecystectomy History of knee joint replacement H/O: section Social History household members: none Smoking Status: Unknown if ever smoked alcohol intake: never substance use type: does not use Physical Exam Const alert and no apparent distress General Appearance: cooperative HEENT normocephalic and head/scalp atraumatic Eyes PERRL and EOMs intact bilaterally Neck supple and No nodes Resp normal air movement Auscultation: diminished lung sounds Cardio regular rate and regular rhythm GI soft to palpation, non-tender and non-distended Extremity General Extremity: Negative for edema Skin no rashes or lesions noted Neuro CN's II-XII intact bilaterally Lab / Micro Data Attestation: I reviewed the patient's lab results. 03/07/25 05:17 03/07/25 05:17 Labs: Laboratory Results - last 24 hr 03/06/25 06:24: Iron 51, TIBC 147 L, Iron Saturation 35.0, Unsaturated IBC 95 L, Ferritin 310 03/06/25 10:31: POC Glucose 204 H 03/06/25 17:15: Vancomycin Trough 11.0 03/06/25 17:59: POC Glucose 159 H 03/06/25 21:28: POC Glucose 189 H 03/07/25 05:17: WBC 3.7 L, RBC 2.68 L, Hgb 8.2 L, Hct 26.5 L, MCV 98.9, MCH 30.6, MCHC 30.9 L, RDW Std Deviation 51.2 H, RDW Coeff of Nicholas 14.2, Plt Count TNP, MPV 11.2, Immature Gran % (Auto) 1.600 H, Neut % (Auto) 64.9, Lymph % (Auto) 24.7, [place] % (Auto) 5.8, Eos % (Auto) 2.5, Baso % (Auto) 0.5, Absolute Neuts (auto) 2.4, Absolute Lymphs (auto) 0.90, Nucleated RBC % 0, Platelet Estimate ADEQUATE, Plt Morphology Comment CLUMPED, Sodium 139, Potassium 3.7, Chloride 108, Carbon Dioxide 22.5, Anion Gap 9, BUN 11, Creatinine 0.65 L, Estim Creat Clear Calc 53.82, Est GFR (MDRD) Non-Af 88, BUN/Creatinine Ratio 16.6, G lucose 179 H, Calcium 8.5 03/07/25 06:23: POC Glucose 165 H Micro: Microbiology 03/03/25 14:54 Sputum, Induced/Lukens Gram Stain - Final 03/03/25 14:54 Sputum, Induced/Lukens Respiratory Culture - Final ESBL Escherichia coli Meth. resistant Staph. aureus 03/03/25 14:48 Urine Catheter - Catheter Urine Culture - Final ESBL Escherichia coli 03/03/25 14:10 Blood Culture (Wb) - Venous Blood Culture - Final GNR lactose automobile bumper straightener 03/03/25 14:20 Blood Culture (Wb) - Venous Blood Culture - Final ESBL Escherichia coli
[2025-03-07] MEDS: Pantoprazole Sodium 40 MG in 0.9% Normal Saline (100mL MB+) 100 ML 300 MG IV (11:18)
[2025-03-07] MEDS: Meropenem 1 GM in 0.9% Normal Saline (100mL MB+) 100 ML IV ×2 (14:30→21:12)
[2025-03-07 15:03] VITALS: BP 123/64; PULSE 79; RESP 16; TEMP 36.4; O2SAT 93
[2025-03-07 21:05] VITALS: BP 127/58; PULSE 81; RESP 18; TEMP 36.3; O2SAT 90
[2025-03-08 03:40] VITALS: BP 130/63; PULSE 82; RESP 18; TEMP 36.3; O2SAT 90
[2025-03-08] MEDS: Meropenem 1 GM in 0.9% Normal Saline (100mL MB+) 100 ML IV (05:02)
[2025-03-08 06:00] VITALS: BMI 37.7
[2025-03-08 07:06] LABS: Hematocrit 26.8 % (37-47); Hemoglobin 8.6 g/dL (12.0-15.0); Immature Granulocytes Count 0.090 X10^3/uL (0.0-0.0); Mean Corp Hgb Conc 32.1 g/dL (32-36); Mean Corpuscular Volume 95.7 fL (81-99); Mean Platelet Vol. 10.4 fl (6.2-12.0); NRBC Flagged by Analyzer 0 % (0-5); Platelet Count 149 K/mm3 (150-450); RBC Distribution Width CV 13.7 % (11.6-14.6); RBC Distribution Width SD 48.3 fl (35.1-43.9); Red Blood Count 2.80 M/mm3 (4.2-5.4); White Blood Count 4.7 K/mm3 (4.4-11.0)
[2025-03-08 07:32] LABS: Anion Gap 10 (5-15); BUN 6 mg/dL (4-19); BUN/Creat Ratio 10.3 RATIO (10-20); Calcium,Total 8.4 mg/dL (7.6-11.0); Carbon Dioxide 24.0 mmol/L (21.0-32.0); Chloride 106 mmol/L (98-108); Estimated Creatinine Clearance 53.34 ml/min (50-250); Glucose 172 mg/dL (70-99); Potassium 3.2 mmol/L (3.3-5.1); Vancomycin, Trough Level 13.0 ug/mL (5.0-15.0)
--- NOTE | 2025-03-08 07:46 | PCM.RX.CS ---
Consult Antibiotic Management Pharmacy has been consulted to manage selected antibiotic: Vancomycin Type of Intervention Type of Consult: Follow-up Suspected Infection Suspected Infection: Sepsis Prior Doses of Antibiotics Prior Doses of Antibiotics Received/Current Regimen: X3 Labs Labs: Sodium 140 mmol/L (133-145) 03/08/25 06:52 Potassium 3.2 mmol/L (3.3-5.1) L 03/08/25 06:52 Chloride 106 mmol/L (98-108) 03/08/25 06:52 Carbon Dioxide 24.0 mmol/L (21.0-32.0) 03/08/25 06:52 Anion Gap 10 (5-15) 03/08/25 06:52 BUN 6 mg/dL (4-19) 03/08/25 06:52 Creatinine 0.60 mg/dL (0.70-1.20) L 03/08/25 06:52 Est GFR (MDRD) Non-Af 90 (>60) 03/08/25 06:52 BUN/Creatinine Ratio 10.3 RATIO (10-20) 03/08/25 06:52 Glucose 172 mg/dL (70-99) H 03/08/25 06:52 Vancomycin Trough 13.0 ug/mL (5.0-15.0) 03/08/25 06:52 Microbiology Microbiology: Microbiology 03/03/25 14:54 Sputum, Induced/Lukens Gram Stain - Final 03/03/25 14:54 Sputum, Induced/Lukens Respiratory Culture - Final ESBL Escherichia coli Meth. resistant Staph. aureus 03/03/25 14:48 Urine Catheter - Catheter Urine Culture - Final ESBL Escherichia coli 03/03/25 14:10 Blood Culture (Wb) - Venous Blood Culture - Final GNR lactose divisional human resources director 03/03/25 14:20 Blood Culture (Wb) - Venous Blood Culture - Final ESBL Escherichia coli 03/03/25 17:25 Mucosa - Nasopharyngeal Respiratory Panel (PCR) - Final 03/03/25 14:48 Mucosa - Nose SARS-CoV-2, Influenza & RSV (PCR) - Final Dosing Weight Weight used for dosin.9 kg Estimated Creatinine Clearance Estimated Creatinine Clearance: 53 ML/MIN Goal Trough Goal Trough: 15-20 mcg/mL Pharmacy Plan for Drug Dosing Pharmacy Plan for Drug Dosing: VANCOMYCIN LEVEL RECEIVED Current Vancomycin Dose: 750 MG Q12H Number of Doses Received: 3 Vancomycin Level: 13.0 ug Hours Since Last Dose: 11.5 h Renal Function: SCr 0.60 mg/dl CrCl: 53 ml/min Renal Function Trend: Stable Lab/Micro: MRSA,ESBL,E.COLI Vancomycin Plan/Comments: Due to subtherapeutic level and stable renal function, will increase dose to 2000 mg/day, and continue to monitor. Pharmacy Service will continue to monitor and adjust dosing as required. Pending Level: 03/09/2025 @ 1930 Follow-Up Labs Follow-Up Labs: Trough: Vancomycin Date/Time Labs Ordered Labs to be done on [date and time ordered]: 03/09/2025 @1930
[2025-03-08 08:17] VITALS: O2SAT 95
[2025-03-08] MEDS: Vancomycin HCl 1,000 MG in 0.9% Normal Saline (250mL Bag) 250 ML 250 MG IV (08:40)
--- NOTE | 2025-03-08 08:53 | PN.HOSP_ITS ---
Reason for Visit Chief Complaint: Patient came in hypoxic Subjective Subjective Does not feels well, but cannot specify symptoms. Objective Data Objective Data Vital Signs: Vital Signs Temp Pulse Resp BP Pulse Ox O2 Del Method O2 Flow Rate 36.3 C L 82 18 130/63 H 95 Room Air 1 03/08/25 03:40 03/08/25 03:40 03/08/25 03:40 03/08/25 03:40 03/08/25 08:17 03/08/25 08:17 03/05/25 14:55 FiO2 30 03/04/25 09:00 Oxygen Flow Rate (L/min) 1 Oxygen Delivery Method Room Air Weight: 84.9 kg Body Mass Index (BMI) 37.7 Intake & Output: Intake and Output for Last 24 Hours 03/06/25 03/07/25 03/08/25 23:59 23:59 23:59 Intake Total 805 / 925 1025 / 1025 100 / 100 Output Total 600 / 1050 1300 / 1300 Balance 205 / -125 -275 / -275 100 / 100 Lab / Micro Data 03/08/25 06:52 03/08/25 06:52 Labs: Laboratory Results - last 24 hr 03/07/25 12:00: POC Glucose 167 H 03/07/25 16:08: POC Glucose 204 H 03/07/25 21:11: POC Glucose 166 H 03/08/25 06:52: WBC 4.7, RBC 2.80 L, Hgb 8.6 L, Hct 26.8 L, MCV 95.7, MCH 30.7, MCHC 32.1, RDW Std Deviation 48.3 H, RDW Coeff of Nicholas 13.7, Plt Count 149 L, MPV 10.4, Immature Gran % (Auto) 1.900 H, Neut % (Auto) 71.0 H, Lymph % (Auto) 19.7, [place] % (Auto) 5.7, Eos % (Auto) 1.3, Baso % (Auto) 0.4, Absolute Neuts (auto) 3.4, Absolute Lymphs (auto) 0.93, Nucleated RBC % 0, Sodium 140, Potassium 3.2 L , Chloride 106, Carbon Dioxide 24.0, Anion Gap 10, BUN 6, Creatinine 0.60 L, Estim Creat Clear Calc 53.34, Est GFR (MDRD) Non-Af 90, BUN/Creatinine Ratio 10.3, Glucose 172 H, Calcium 8.4, Vancomycin Trough 13.0 Micro: Microbiology 03/03/25 14:54 Sputum, Induced/Lukens Gram Stain - Final 03/03/25 14:54 Sputum, Induced/Lukens Respiratory Culture - Final ESBL Escherichia coli Meth. resistant Staph. aureus 03/03/25 14:48 Urine Catheter - Catheter Urine Culture - Final ESBL Escherichia coli 03/03/25 14:10 Blood Culture (Wb) - Venous Blood Culture - Final GNR lactose physician relations manager 03/03/25 14:20 Blood Culture (Wb) - Venous Blood Culture - Final ESBL Escherichia coli 03/03/25 17:25 Mucosa - Nasopharyngeal Respiratory Panel (PCR) - Final 03/03/25 14:48 Mucosa - Nose SARS-CoV-2, Influenza & RSV (PCR) - Final Physical Exam Const alert and no apparent distress HEENT head/scalp atraumatic and moist oral mucous membranes Resp normal respiratory effort, no retractions, no use of accessory muscles and clear to auscultation bilaterally Cardio regular rate, regular rhythm, S1 normal heart sound and S2 normal heart sound GI normal to inspection, nondistended, normoactive bowel sounds, soft to palpation, non-tender and non-distended Extremity normal to inspection and full ROM Neuro Sensorium / Orientation: awake Assessment & Plan Assessment/Plan (1) Acute hypoxic respiratory failure: (2) Sepsis: (3) Hyperlipidemia: PLAN: Plan Acute hypoxic respiratory failure due to probable aspiration pneumonia * Was intubated on admission due to hypoxia. Now extubated and down to room air today. * Respiratory panel negative. COVID, flu and RSV also negative. * Blood, sputum and urinary cultures all growing ESBL E. coli. Sputum cultures also growing MRSA. On IV vancomycin and Zosyn. * ID following and ordered PO linezolid and IM ertapenem. Pneumonia * E. coli and MRSA. * iglesia and vancomycin. Outpt PO linezolid and IM ertapenem. * ID following Sepsis due to UTI and pneumonia * Was tachycardic and tachypneic on admission was also febrile with temperature up to 102.6. Lactic acid was elevated at 3.4 and WBC was 13.5. Bilirubin was elevated and she was also tachypneic * Urinalysis did show evidence of elevated nitrites and leukocyte esterase as well as elevated WBC but no bacteria. * Currently on broad-spectrum IV antibiotics. Blood and urine cultures as well as sputum cultures growing E. coli * ID consulted. E. coli bacteremia: As above Elevated troponins: * Likely due to demand ischemia. No chest pain. Stable. * Initial troponin was 54 but subsequently trended down to 25. This was likely due to her hypoxia. Elevated liver enzymes, * total bilirubin today is down to 0.94. However AST and ALT have trended up slightly though ALP has trended down. Direct bilirubin is 0.7 which is slightly elevated. * CT abdomen and pelvis did not show any visualization of the gallbladder and showed no significant biliary dilatation. * Will check hepatitis panel Pancytopenia: * Hemoglobin is 7.7 with WBC of 4.3 and platelets of 145. Platelets up from yesterday. * Hemoglobin has of dropped from 10.4 when she was admitted. * Will check stool for occult blood and check iron panel and ferritin. * Hold all blood thinners Chronic medical conditions: * GERD: On PPI * type 2 diabetes mellitus: On insulin sliding scale. Accu-Cheks ACHS. * Depression and anxiety: On Lexapro * Hypothyroidism: On Synthroid DVT prophylaxis: SCDs
--- NOTE | 2025-03-08 09:18 | CASEMGMT ---
Discharge Planning Updates sent to [facility]. Katheryn He DC Planning Asst.
[2025-03-08 09:58] VITALS: BP 129/56; PULSE 74; RESP 16; TEMP 36.6; O2SAT 94
--- NOTE | 2025-03-08 10:35 | PCM.PN.ID ---
Physical Exam Narrative Feeling better, no abd pain, no fever Const alert and no apparent distress General Appearance: cooperative Resp normal air movement and clear to auscultation bilaterally Cardio regular rate and regular rhythm GI soft to palpation, non-tender and non-distended Skin no rashes or lesions noted ID ID: Route of nutrition/ use of supplements: [] Nutritional Intake: [] IV Site: [] Bray Catheter: [] Assessment & Plan Assessment/Plan (1) Sepsis: PLAN: sepsis due to esbl ecoli bacteremia from pneumonia and complicated uti - sputum cx with MRSA and ESBL ecoli. CT showed cystitis and pneumonia. Overall improved, wbc better, fever resolved, feeling better. Ok for discharge to [facility]CF with short course po linezolid and IM ertapenem. Wrote rx, d/w disease case manager. Will follow (2) Acute hypoxic respiratory failure: (3) Bacteremia due to Gram-negative bacteria:
[2025-03-08] MEDS: Pantoprazole Sodium 40 MG in 0.9% Normal Saline (100mL MB+) 100 ML 300 MG IV (11:24)
--- NOTE | 2025-03-08 12:27 | TREXTCAR_ITS ---
Diet Diet Order/Speech Therapy: INPATIENT Hospital Diet / Speech Therapy Order(s) 03/04/25 12:57 Diet: Regular - General Food consistency:: Mechanical (Minced/Moist) Liquid Consistency:: Regular/Thin Type of Dietary Supplement:: Glucerna Shake Speech Therapy Comments: 1:1 supervision / total feed ; 4 oz glucerna shake tid w/ meals DC O2, CPAP, BIPAP needs Home O2 Discharge instructions: No Therapies Physical Therapy: Eval and Treat Occupational Therapy: Eval and Treat Problem/Diagnosis (1) Acute hypoxic respiratory failure: Status: Acute Code(s): J96.01 - Acute respiratory failure with hypoxia (2) Sepsis: Status: Acute Code(s): A41.9 - Sepsis, unspecified organism (3) Hyperlipidemia: Status: Acute Code(s): E78.5 - Hyperlipidemia, unspecified Plan Acute hypoxic respiratory failure due to probable aspiration pneumonia * Was intubated on admission due to hypoxia. Now extubated and down to room air today. * Respiratory panel negative. COVID, flu and RSV also negative. * Blood, sputum and urinary cultures all growing ESBL E. coli. Sputum cultures also growing MRSA. On IV vancomycin and Zosyn. * ID following and ordered PO linezolid and IM ertapenem. Pneumonia * E. coli and MRSA. * iglesia and vancomycin. Outpt PO linezolid and IM ertapenem. * ID following Sepsis due to UTI and pneumonia * Was tachycardic and tachypneic on admission was also febrile with temperature up to 102.6. Lactic acid was elevated at 3.4 and WBC was 13.5. Bilirubin was elevated and she was also tachypneic * Urinalysis did show evidence of elevated nitrites and leukocyte esterase as well as elevated WBC but no bacteria. * Currently on broad-spectrum IV antibiotics. Blood and urine cultures as well as sputum cultures growing E. coli * ID consulted. E. coli bacteremia: As above Elevated troponins: * Likely due to demand ischemia. No chest pain. Stable. * Initial troponin was 54 but subsequently trended down to 25. This was likely due to her hypoxia. Elevated liver enzymes, * total bilirubin today is down to 0.94. However AST and ALT have trended up slightly though ALP has trended down. Direct bilirubin is 0.7 which is slightly elevated. * CT abdomen and pelvis did not show any visualization of the gallbladder and showed no significant biliary dilatation. * Will check hepatitis panel Pancytopenia: * Hemoglobin is 7.7 with WBC of 4.3 and platelets of 145. Platelets up from yesterday. * Hemoglobin has of dropped from 10.4 when she was admitted. * Will check stool for occult blood and check iron panel and ferritin. * Hold all blood thinners Chronic medical conditions: * GERD: On PPI * type 2 diabetes mellitus: On insulin sliding scale. Accu-Cheks ACHS. * Depression and anxiety: On Lexapro * Hypothyroidism: On Synthroid DVT prophylaxis: SCDs Allergies/Procedures Done in Hospital Allergies venlafaxine HCl (From Effexor) Allergy (Verified 03/03/25 14:19) Rash CHEST BROKE OUT, GOT REAL DIZZY. meclizine Adverse Reaction (Verified 03/03/25 14:19) Other PT BECAME EXTREMELY FATIGUED & WAS UNABLE TO WALK AFTER TAKING 12.5MG OF MECLIZINE. Type of Care/Length of Stay Estimated LOS: Convalescent Care Less Than 30 days Type of Care Needed: Skilled Rehab Potential: Fair Prognosis: Fair Additional Orders/Day of Discharge Day of Discharge: 03/08/25 Dietary and Speech Recommendations Dietitian Recommendations/Changes: Continue liberal regular diet - consistency per TILE CLASSIFIER - once po intake established rec ARIADNA to CHO Control if indicated Will order 4 oz glucerna shake tid w/ meals for increased nutrition if consumed. Will interview pt re: diet/WT Hx, SMBG, etc and make additional rec as indicated. Discharge Plan Admission Admit Date/Time: 03/03/25 16:08 Primary Reason for Your Visit: pneumonia Attending Provider: Carl Couch Primary Care Provider: Pavithra Presley Consulting Providers: Desiree Trent; Esa Ponce; Giovanni Batista; Geovany Garcia; Mario Dunaway; Mihai Mohamud; Deng Burnette; Caden Kurtz; Frances Natarajan; Mason Mina; Chalino Harp; Matthew Calixto; Juana Mendez; Oni Perkins; Casi,Germania; Donna,Antione; Kev Albert; Gibson Dwyer; Anna,Omar; Anabel Cummins; Ingrid Fonseca; Warren Stockton; Moses Damon; Gabino Malik; Donell Rendon; Terry Flores; Amira Mai NP; Debra Bunn; Linda Marte; Ab Nur Discharge Orders/Prescriptions Prescriptions: New linezolid 600 mg tablet 600 mg PO BID 3 Days Qty: 6 0RF ertapenem 1 gram recon soln 1 g IM DAILY 3 Days Qty: 5 0RF Rx Instructions: Reconstitute with lidocaine. 1gm IM daily for 5 days. Dx: ESBL ecoli bacteremia. insulin lispro [Humalog KwikPen Insulin] 100 unit/mL Insulin Pen See Protocol subcut ACHS Qty: 0 0RF Protocol: 3. Sliding Scale Insulin Med Dosing Condition: 150-189 mg/dl = 1 unit Condition: 190-229 mg/dl = 2 units Condition: 230-269 mg/dl = 3 units Condition: 270-309 mg/dl = 4 units Condition: 310-349 mg/dl = 5 units Condition: 350-399 mg/dl = 6 units Condition: 400-449 mg/dl = 7 units Condition: Greater than 449 call physician Protocol Text: Suggested for: - Patients on Total Daily Insulin Dose of 37-55 units - Obese, infected, or steroid patients MEDIUM DOSING ALGORITHIM Continued levothyroxine 50 MCG tablet 50 mcg PO .ISABELMAXIME Patient Comments: THYROID MEDICATION atorvastatin 40 MG tablet 40 mg PO QHS escitalopram oxalate 10 MG tablet 10 mg PO DAILY levothyroxine 25 mcg tablet 75 mcg PO .MWF acetaminophen 325 mg Tablet 650 mg PO Q6H PRN PRN (Reason: Pain 1-10 Or Fever>100.7) Qty: 0 0RF melatonin 3 mg Tablet 3 mg PO QHS PRN PRN (Reason: Insomnia) Qty: 0 0RF menthol-zinc oxide [Calmoseptine] 0.44-20.6 % Ointment 1 applic topical BID Protocol: *Topical Application Instructions APPLICATION INSTRUCTIONS: apply to buttock Rx Instructions: Apply to bilat buttocks ferrous sulfate [FeroSul] 325 mg (65 mg iron) tablet 325 mg PO BID oxybutynin chloride 10 mg tablet extended release 24hr 10 mg PO .HS sennosides-docusate sodium [Stool Softener-Stimulant Laxat] 8.6-50 mg Tablet 1 tab PO DAILY pantoprazole 20 mg Tablet,Delayed Release (Dr/Ec) 20 mg PO DAILY cholecalciferol (vitamin D3) 1,250 mcg (50,000 unit) capsule 1,250 mcg PO .Qmonday Rx Instructions: Give one capsule in the morning every Friday for low vitamin D3 level for 168 days acetaminophen 650 mg suppository 650 mg [place] Q4H PRN (Reason: fever or pain) bisacodyl 10 mg suppository 10 mg [place] DAILY PRN (Reason: constipation) magnesium hydroxide [Milk of Magnesia] 400 mg/5 mL suspension 30 ml PO DAILY PRN (Reason: constipation) guaifenesin [Adult Tussin Chest Congestion] 100 mg/5 mL liquid 200 mg PO Q4H PRN (Reason: congestion, cough) Changed insulin glargine [Lantus Solostar U-100 Insulin] 100 unit/mL (3 mL) insulin pen 20 unit subcut .am Qty: 1 0RF Discontinued insulin lispro [Humalog U-100 Insulin] 100 unit/mL solution 1 sliding scale dose subcut .AC Rx Instructions: BS 151-200=2 units 201-250= 4 units 251-300= 6 units 301-350= 8 units 351-400= 10 units 401-450=12 units >450 call insulin glargine [Lantus Solostar U-100 Insulin] 100 unit/mL (3 mL) insulin pen 26 unit subcut QPM insulin lispro [Humalog KwikPen Insulin] 100 unit/mL Insulin Pen 5 unit subcut BIDAC Rx Instructions: Breakfast and Dinner Referrals / Follow Up: Pavithra Presley MD [Primary Care Provider] - Within 2 Weeks Disposition Disposition (needs filled in before D/C Order can be placed): [facility]
[2025-03-08 12:37] VITALS: BP 122/71; PULSE 96; RESP 16; TEMP 36.6; O2SAT 94
--- NOTE | 2025-03-08 12:38 | DS.PCM_ITS ---
Providers Date of Admission: 03/03/25 Primary Care Physician: Dr. Pavithra Presley MD Consultations 03/03/25 16:59 Consult: Seasoning Mixer / Pulmonary Medicine Routine Consulting Provider: Pulmonary Medicine [facility] [place] Reason for Consult: Vent management, sepsis EMERGENT Consult: No Notified: Yes Date Notified: 03/03/25 Time Notified: 17:20 Method of Notification: Verbal 03/06/25 08:18 Consult: Infectious Disease Routine Consulting Provider: Ab Nur Reason for Consult: E coli bacteremia EMERGENT Consult: No Notified: Yes Date Notified: 03/07/25 Time Notified: 06:54 Method of Notification: Text Reason For Visit: SEPSIS Diagnosis Discharge Diagnosis (1) Acute hypoxic respiratory failure: Status: Acute Code(s): J96.01 - Acute respiratory failure with hypoxia (2) Sepsis: Status: Acute Code(s): A41.9 - Sepsis, unspecified organism (3) Hyperlipidemia: Status: Acute Code(s): E78.5 - Hyperlipidemia, unspecified Plan Acute hypoxic respiratory failure due to probable aspiration pneumonia * Was intubated on admission due to hypoxia. Now extubated and down to room air today. * Respiratory panel negative. COVID, flu and RSV also negative. * Blood, sputum and urinary cultures all growing ESBL E. coli. Sputum cultures also growing MRSA. On IV vancomycin and Zosyn. * ID following and ordered PO linezolid and IM ertapenem. Pneumonia * E. coli and MRSA. * iglesia and vancomycin. Outpt PO linezolid and IM ertapenem. * ID following Sepsis due to UTI and pneumonia * Was tachycardic and tachypneic on admission was also febrile with temperature up to 102.6. Lactic acid was elevated at 3.4 and WBC was 13.5. Bilirubin was elevated and she was also tachypneic * Urinalysis did show evidence of elevated nitrites and leukocyte esterase as well as elevated WBC but no bacteria. * Currently on broad-spectrum IV antibiotics. Blood and urine cultures as well as sputum cultures growing E. coli * ID consulted. E. coli bacteremia: As above Elevated troponins: * Likely due to demand ischemia. No chest pain. Stable. * Initial troponin was 54 but subsequently trended down to 25. This was likely due to her hypoxia. Elevated liver enzymes, * total bilirubin today is down to 0.94. However AST and ALT have trended up slightly though ALP has trended down. Direct bilirubin is 0.7 which is slightly elevated. * CT abdomen and pelvis did not show any visualization of the gallbladder and showed no significant biliary dilatation. * Will check hepatitis panel Pancytopenia: * Hemoglobin is 7.7 with WBC of 4.3 and platelets of 145. Platelets up from yesterday. * Hemoglobin has of dropped from 10.4 when she was admitted. * Will check stool for occult blood and check iron panel and ferritin. * Hold all blood thinners Chronic medical conditions: * GERD: On PPI * type 2 diabetes mellitus: On insulin sliding scale. Accu-Cheks ACHS. * Depression and anxiety: On Lexapro * Hypothyroidism: On Synthroid Medications at Discharge Home Medications levothyroxine 50 mcg tablet 50 mcg PO .ISABELSASU thyroid 06/07/14 atorvastatin 40 mg tablet 40 mg PO QHS CHOLESTEROL 05/28/19 escitalopram oxalate 10 mg tablet 10 mg PO DAILY DEPRESS 05/28/19 levothyroxine 25 mcg tablet 75 mcg PO .MWF thyroid 08/09/23 acetaminophen 325 mg tablet 650 mg (2 x 325 mg) PO Q6H PRN PRN Pain 1-10 Or Fever>100.7 #0 tabs 12/06/23 melatonin 3 mg tablet 3 mg PO QHS PRN PRN Insomnia #0 tabs 12/06/23 menthol 0.44 %-zinc oxide 20.6 % topical ointment (Calmoseptine) 1 applic topical BID redness 12/06/23 acetaminophen 650 mg rectal suppository 650 mg [place] Q4H PRN fever or pain 03/03/25 bisacodyl 10 mg rectal suppository 10 mg [place] DAILY PRN constipation 03/03/25 cholecalciferol (vitamin D3) 1,250 mcg (50,000 unit) capsule 1,250 mcg PO .Qmonday supplement 03/03/25 ferrous sulfate 325 mg (65 mg iron) tablet (FeroSul) 325 mg PO BID iron supplement 03/03/25 guaifenesin 100 mg/5 mL oral liquid (Adult Tussin Chest Congestion) 200 mg PO Q4H PRN congestion, cough 03/03/25 magnesium hydroxide 400 mg/5 mL oral suspension (Milk of Magnesia) 30 ml PO DAILY PRN constipation 03/03/25 oxybutynin chloride 10 mg tablet,extended release 24 hr 10 mg PO .HS bladder spasms 03/03/25 pantoprazole 20 mg tablet,delayed release 20 mg PO DAILY GERD 03/03/25 sennosides 8.6 mg-docusate sodium 50 mg tablet (Stool Softener-Stimulant Laxative) 1 tab PO DAILY constipation 03/03/25 ertapenem 1 gram solution for injection 1 g IM DAILY 3 days #5 ea 03/08/25 insulin glargine 100 unit/mL (3 mL) subcutaneous pen (Lantus Solostar U-100 Insulin) 20 unit (0.2 mL) subcut .am diabetes #1 mL 03/08/25 insulin lispro 100 unit/mL subcutaneous pen (Humalog KwikPen (U-100) Insulin) See Protocol subcut ACHS #0 mL 03/08/25 linezolid 600 mg tablet 600 mg PO BID 3 days #6 tabs 03/08/25 Hospital Course Operations None Procedures None Summary of Care Provided Minutes Spent on Discharge: 32 Weight / BMI Weight Weight: 84.9 kg Body Mass Index (BMI) 37.7 ABG / Lab / Microbiology Data 03/08/25 06:52 03/08/25 06:52 Laboratory: Laboratory Results - last 24 hr 03/07/25 16:08: POC Glucose 204 H 03/07/25 21:11: POC Glucose 166 H 03/08/25 06:52: WBC 4.7, RBC 2.80 L, Hgb 8.6 L, Hct 26.8 L, MCV 95.7, MCH 30.7, MCHC 32.1, RDW Std Deviation 48.3 H, RDW Coeff of Nicholas 13.7, Plt Count 149 L, MPV 10.4, Immature Gran % (Auto) 1.900 H, Neut % (Auto) 71.0 H, Lymph % (Auto) 19.7, Gilchrist % (Auto) 5.7, Eos % (Auto) 1.3, Baso % (Auto) 0.4, Absolute Neuts (auto) 3.4, Absolute Lymphs (auto) 0.93, Nucleated RBC % 0, Sodium 140, Potassium 3.2 L , Chloride 106, Carbon Dioxide 24.0, Anion Gap 10, BUN 6, Creatinine 0.60 L, Estim Creat Clear Calc 53.34, Est GFR (MDRD) Non-Af 90, BUN/Creatinine Ratio 10.3, Glucose 172 H, Calcium 8.4, Vancomycin Trough 13.0 03/08/25 11:12: POC Glucose 170 H Microbiology: Microbiology 03/03/25 14:54 Sputum, Induced/Lukens Gram Stain - Final 03/03/25 14:54 Sputum, Induced/Lukens Respiratory Culture - Final ESBL Escherichia coli Meth. resistant Staph. aureus 03/03/25 14:48 Urine Catheter - Catheter Urine Culture - Final ESBL Escherichia coli 03/03/25 14:10 Blood Culture (Wb) - Venous Blood Culture - Final GNR lactose metallographer 03/03/25 14:20 Blood Culture (Wb) - Venous Blood Culture - Final ESBL Escherichia coli 03/03/25 17:25 Mucosa - Nasopharyngeal Respiratory Panel (PCR) - Final 03/03/25 14:48 Mucosa - Nose SARS-CoV-2, Influenza & RSV (PCR) - Final D/C Instructions DC O2, CPAP, BIPAP Needs Home O2 Discharge instructions: No Meaningful Use Info Meaningful Use Meaningful Use Diagnoses (Choose all that apply): None applicable Discharge Plan Admission Admit Date/Time: 03/03/25 16:08 Primary Reason for Your Visit: pneumonia Attending Provider: Carl Couch Primary Care Provider: Pavithra Presley Consulting Providers: Desiree Trent; Esa Ponce; Giovanni Batista; Geovany Garcia; Mario Dunaway; Mihai Mohamud; Deng Burnette; Caden Kurtz; Frances Natarajan; Mason Mina; Chalino Harp; Matthew Calixto; Juana Mendez; Oni Perkins; Lance,Germania; Donna,Antione; Roosevelt,Kev; Gibson Dwyer; Omar Castillo; Anabel Cummins; Ingrid Fonseca; Warren Stockton; Moess Damon; Gabino Malik; Donell Rendon; Terry Flores; Amira Mai NP; Debra Bunn; Linda Marte; Ab Nur Discharge Orders/Prescriptions Prescriptions: New linezolid 600 mg tablet 600 mg PO BID 3 Days Qty: 6 0RF ertapenem 1 gram recon soln 1 g IM DAILY 3 Days Qty: 5 0RF Rx Instructions: Reconstitute with lidocaine. 1gm IM daily for 5 days. Dx: ESBL ecoli bacteremia. insulin lispro [Humalog KwikPen Insulin] 100 unit/mL Insulin Pen See Protocol subcut ACHS Qty: 0 0RF Protocol: 3. Sliding Scale Insulin Med Dosing Condition: 150-189 mg/dl = 1 unit Condition: 190-229 mg/dl = 2 units Condition: 230-269 mg/dl = 3 units Condition: 270-309 mg/dl = 4 units Condition: 310-349 mg/dl = 5 units Condition: 350-399 mg/dl = 6 units Condition: 400-449 mg/dl = 7 units Condition: Greater than 449 call physician Protocol Text: Suggested for: - Patients on Total Daily Insulin Dose of 37-55 units - Obese, infected, or steroid patients MEDIUM DOSING ALGORITHIM Continued levothyroxine 50 MCG tablet 50 mcg PO .LEOPOLDO Patient Comments: THYROID MEDICATION atorvastatin 40 MG tablet 40 mg PO QHS escitalopram oxalate 10 MG tablet 10 mg PO DAILY levothyroxine 25 mcg tablet 75 mcg PO .MWF acetaminophen 325 mg Tablet 650 mg PO Q6H PRN PRN (Reason: Pain 1-10 Or Fever>100.7) Qty: 0 0RF melatonin 3 mg Tablet 3 mg PO QHS PRN PRN (Reason: Insomnia) Qty: 0 0RF menthol-zinc oxide [Calmoseptine] 0.44-20.6 % Ointment 1 applic topical BID Protocol: *Topical Application Instructions APPLICATION INSTRUCTIONS: apply to buttock Rx Instructions: Apply to bilat buttocks ferrous sulfate [FeroSul] 325 mg (65 mg iron) tablet 325 mg PO BID oxybutynin chloride 10 mg tablet extended release 24hr 10 mg PO .HS sennosides-docusate sodium [Stool Softener-Stimulant Laxat] 8.6-50 mg Tablet 1 tab PO DAILY pantoprazole 20 mg Tablet,Delayed Release (Dr/Ec) 20 mg PO DAILY cholecalciferol (vitamin D3) 1,250 mcg (50,000 unit) capsule 1,250 mcg PO .Qmonday Rx Instructions: Give one capsule in the morning every Friday for low vitamin D3 level for 168 days acetaminophen 650 mg suppository 650 mg [place] Q4H PRN (Reason: fever or pain) bisacodyl 10 mg suppository 10 mg [place] DAILY PRN (Reason: constipation) magnesium hydroxide [Milk of Magnesia] 400 mg/5 mL suspension 30 ml PO DAILY PRN (Reason: constipation) guaifenesin [Adult Tussin Chest Congestion] 100 mg/5 mL liquid 200 mg PO Q4H PRN (Reason: congestion, cough) Changed insulin glargine [Lantus Solostar U-100 Insulin] 100 unit/mL (3 mL) insulin pen 20 unit subcut .am Qty: 1 0RF Discontinued insulin lispro [Humalog U-100 Insulin] 100 unit/mL solution 1 sliding scale dose subcut .AC Rx Instructions: BS 151-200=2 units 201-250= 4 units 251-300= 6 units 301-350= 8 units 351-400= 10 units 401-450=12 units >450 call MD insulin glargine [Lantus Solostar U-100 Insulin] 100 unit/mL (3 mL) insulin pen 26 unit subcut QPM insulin lispro [Humalog KwikPen Insulin] 100 unit/mL Insulin Pen 5 unit subcut BIDAC Rx Instructions: Breakfast and Dinner Referrals / Follow Up: Pavithra Presley MD [Primary Care Provider] - Within 2 Weeks Disposition Disposition (needs filled in before D/C Order can be placed): [facility] Charges/Coding Visit Charges Inpatient E&M: 11152 Disch Hosp >30min
--- NOTE | 2025-03-08 12:50 | CASEMGMT ---
Patient has order for discharge. Patient to return to [facility] under intermediate level of care. Discharge paperwork received. SHANNON CM updated DC Manuscripts Curator to complete discharge, transport, and to notify family.
[2025-03-08] MEDS: Ertapenem Sod 1 GM in 0.9% Normal Saline (50mL MB+) 50 ML IV (13:10)
--- NOTE | 2025-03-08 13:16 | CASEMGMT ---
Discharge Planning Discharge orders, signed med list, and transport time sent to [facility]. Physicians will transport pt by cot at 2p. Nursing, SW, pt, and her son (Salomón) updated. Katheryn He DC Planning Asst.
--- NOTE | 2025-03-08 15:26 | PHA.DC.MR.R ---
Pharmacy MS Med Reconciliation Pharmacy Service has performed discharge medication reconciliation for this patient. The patient's discharge medication list was reviewed for discrepancies and discrepancies were resolved. Medications at Discharge Home Medications levothyroxine 50 mcg tablet 50 mcg PO .LEOPOLDO thyroid 06/07/14 atorvastatin 40 mg tablet 40 mg PO QHS CHOLESTEROL 05/28/19 escitalopram oxalate 10 mg tablet 10 mg PO DAILY DEPRESS 05/28/19 levothyroxine 25 mcg tablet 75 mcg PO .MWF thyroid 08/09/23 acetaminophen 325 mg tablet 650 mg (2 x 325 mg) PO Q6H PRN PRN Pain 1-10 Or Fever>100.7 #0 tabs 12/06/23 melatonin 3 mg tablet 3 mg PO QHS PRN PRN Insomnia #0 tabs 12/06/23 menthol 0.44 %-zinc oxide 20.6 % topical ointment (Calmoseptine) 1 applic topical BID redness 12/06/23 acetaminophen 650 mg rectal suppository 650 mg [place] Q4H PRN fever or pain 03/03/25 bisacodyl 10 mg rectal suppository 10 mg [place] DAILY PRN constipation 03/03/25 cholecalciferol (vitamin D3) 1,250 mcg (50,000 unit) capsule 1,250 mcg PO .Qmonday supplement 03/03/25 ferrous sulfate 325 mg (65 mg iron) tablet (FeroSul) 325 mg PO BID iron supplement 03/03/25 guaifenesin 100 mg/5 mL oral liquid (Adult Tussin Chest Congestion) 200 mg PO Q4H PRN congestion, cough 03/03/25 magnesium hydroxide 400 mg/5 mL oral suspension (Milk of Magnesia) 30 ml PO DAILY PRN constipation 03/03/25 oxybutynin chloride 10 mg tablet,extended release 24 hr 10 mg PO .HS bladder spasms 03/03/25 pantoprazole 20 mg tablet,delayed release 20 mg PO DAILY GERD 03/03/25 sennosides 8.6 mg-docusate sodium 50 mg tablet (Stool Softener-Stimulant Laxative) 1 tab PO DAILY constipation 03/03/25 ertapenem 1 gram solution for injection 1 g IM DAILY 3 days #5 ea 03/08/25 insulin glargine 100 unit/mL (3 mL) subcutaneous pen (Lantus Solostar U-100 Insulin) 20 unit (0.2 mL) subcut .am diabetes #1 mL 03/08/25 insulin lispro 100 unit/mL subcutaneous pen (Humalog KwikPen (U-100) Insulin) See Protocol subcut ACHS #0 mL 03/08/25 linezolid 600 mg tablet 600 mg PO BID 3 days #6 tabs 03/08/25
== END 2025-03-08 15:09 | disposition skilled nursing facility (03) | DRG 871 ==
LOC: ED 16:00 → ICU 16:22 → PCU 03-05 17:47
PROVIDERS: Internal Medicine Critical Care Medicine; Student in an Organized Health Care Education/Training Program; Admitting Provider Internal Medicine; Emergency Provider Student in an Organized Health Care Education/Training Program; PCP Internal Medicine
DX: A41.51 Sepsis due to Escherichia coli [E. coli] (principal); J96.01 Acute respiratory failure with hypoxia; J15.5 Pneumonia due to Escherichia coli; J15.212 Pneumonia due to Methicillin resistant Staphylococcus aureus; J69.0 Pneumonitis due to inhalation of food and vomit; I24.89 Other forms of acute ischemic heart disease; D61.818 Other pancytopenia; N30.00 Acute cystitis without hematuria; E11.9 Type 2 diabetes mellitus without complications; E03.9 Hypothyroidism, unspecified; D64.9 Anemia, unspecified; F32.A Depression, unspecified; F41.9 Anxiety disorder, unspecified; Z79.4 Long term (current) use of insulin; K21.9 Gastro-esophageal reflux disease without esophagitis; I95.9 Hypotension, unspecified; A41.02 Sepsis due to Methicillin resistant Staphylococcus aureus; E78.5 Hyperlipidemia, unspecified; R13.12 Dysphagia, oropharyngeal phase; Z66 Do not resuscitate; R74.01 Elevation of levels of liver transaminase levels; R74.8 Abnormal levels of other serum enzymes; Z87.19 Personal history of other diseases of the digestive system; Z90.49 Acquired absence of other specified parts of digestive tract; Z79.899 Other long term (current) drug therapy; Z79.890 Hormone replacement therapy
CPT/HCPCS: 31500; 31720; 36415; 36600; 51702; 71045; 74177; 80048; 80053; 80076; 80202; 81001; 82550; 82728; 82803; 82962; 83540; 83550; 83605; 84443; 84478; 84484; 85025; 85610; 86706; 86803; 87040; 87070; 87077; 87086; 87088; 87186; 87205; 87340; 87631; 87633; 92526; 92610; 93005; 94002; 94003; 94640; 94660; 94762; 97116; 97163; 97166; 97530; 97535; 97802; 99252; 99285; J2185; Q9967; A4216; G0463; J2405

== ENCOUNTER → 2025-06-02 | Outpatient (REF) | payer MEDICARE, BC, MEDICAID, SELFPAY ==
--- OUTSIDE RECORDS SUMMARY | 2025-06-02 04:49 | XMS RPT_ITS | CCD ---
Author Organization [facility] Care Team Providers Care Toll Bridge Operator Name Role Phone Peter Ellis MD Primary Care Provider [facility], Keti Unavailable Peter Ellis MD Primary Care Provider Peter Ellis MD Primary Care Provider [facility], Jadon Unavailable Dr. Peter Ellis Primary Care [...] Emergency Provider Dr. Mitzy Pratt Admit Provider Unavailabl e [...] D Primary Care Unavailable IANORIN Attending Unavailable IAN, ORIN Referring Unavailable TALAMPAS, PETER D Primary Care Unavailable Fernandez DEJESUS, Dr. Peter Hartman Primary Care Provider Dr. Darcy Elias MD Attending Provider Unavaila kennedy Ellis MD, Dr. Peter Hartman Primary Care Provider [phone] Oleg DEJESUS, Dr. An Attending Provider Unavail able Kelly DEJESUS, Dr. Malave Emergency Provider Unavailab tramaine Trent MD, Dr. Ramírez Admit Provider Twan DEJESUS, Dr. Ramírez Attending Provider Kelly DEJESUS, Dr. Malave Emergency Provider Unavailab tramaine Trent MD, Dr. Ramírez Admit Provider Dr. Desiree Trent MD Other Provider Rosario DEJESUS, Dr. See Other Provider Lynne DEJESUS, Dr. Davila Other Provider Dr. Geovany Garcia MD Other Provider Dr. Mario Dunaway DO Other Provider Dr. Mitzy Mohamud MD Other Provider Yomaira DEJESUS, Dr. Vilchis Other Provider [phone] Jerardo DEJESUS, Dr. Negrete Other Provider Delgado DEJESUS, Dr. Daniels Other Provider [phone] Keeley DEJESUS, Dr. Cuevas Other Provider [phone] Loyd DEJESUS, Dr. Allred Other Provider [phone] Durga DEJESUS, Dr. Castro Other Provider [phone] Andrea DEJESUS, Dr. Arias Other Provider Gregorio DEJESUS, Dr. Bunn Other Provider Unavailabl jazmyn Lance MD, Dr. Solo Other Provider [phone] Donna DEJESUS, Dr. Talbot Other Provider Roosevelt DEJESUS, Dr. Angulo Other Provider [phone] Reymundo DEJESUS, Dr. Arreaga Other Provider Anna SLOAN, Dr. Nelson Other Provider [phone] Maria G DEJESUS, Dr. Little Other Provider [phone] Marian DEJESUS, Dr. Quintero Other Provider Dr. Warren Stockton DO Other Provider Marisol DEJESUS, Dr. Lopes Other Provider Chadwick Malik MD, Dr. Lloyd Other Provider Julieta DEJESUS, Dr. Marley Other Provider Mark DEJESUS, Dr. Stewart Other Provider Pau SAUSAGE STUFFER-C, Amira Other Provider Oni SAUSAGE STUFFER-C, Debra Jimenez Other Provider Dr. Carl Couch DO Attending Provider Estuardo DEJESUS, Dr. Linda Mcmillan Other Provider Liudmila DEJESUS, Dr. Berger Other Provider Twan DEJESUS, Dr. Ramírez Attending Provider Dr. Mario Dunaway DO Attending Provider Estuardo DEJESUS, Dr. Linda Mcmillan Attending Provider Iza SLOAN, Dr. Henry Other Provider Fernandez DEJESUS, Dr. Peter Hartman Primary Care Physician Oleg DEJESUS, Dr. An Attending Physician Chadwick Laurent MD, Dr. Malave Emergency Department Physici armando Trent MD, Dr. Ramírez Admitting Physician Twan DEJESUS, Dr. Ramírez Nurse Practitioner Rosario DEJESUS, Dr. See Nurse Practitioner Lynne DEJESUS, Dr. Davila Nurse Practitioner Jose DEJESUS, Dr. Armenta Nurse Practitioner Gume SLOAN, Dr. Martin Nurse Practitioner [phone] Oneida DEJESUS, Dr. Mitzy Prince Nurse Practitioner Yomaira DEJESUS, Dr. Vilchis Nurse Practitioner Jerardo DEJESUS, Dr. Negrete Nurse Practitioner [phone] Delgado DEJESUS, Dr. Daniels Nurse Practitioner Keeley DEJESUS, Dr. Cuevas Nurse Practitioner Loyd DEJESUS, Dr. Allred Nurse Practitioner [phone] Durga DEJESUS, Dr. Castro Nurse Practitioner Andrea DEJESUS, Dr. Arias Nurse Practitioner [phone] Gregorio DEJESUS, Dr. Bunn Nurse Practitioner Unavail issa Lance MD, Dr. Solo Nurse Practitioner [phone] Donna DEJESUS, Dr. Talbot Nurse Practitioner Roosevelt DEJESUS, Dr. Angulo Nurse Practitioner Reymundo DEJESUS, Dr. Arreaga Nurse Practitioner Anna SLOAN, Dr. Nelson Nurse Practitioner Maria G DEJESUS, Dr. Little Nurse Practitioner Marian DEJESUS, Dr. Quintero Nurse Practitioner Kath SLOAN, Dr. Kelley Nurse Practitioner Marisol DEJESUS, Dr. Lopes Nurse Practitioner Lidia alexus Malik MD, Dr. Lloyd Nurse Practitioner Julieta DEJESUS, Dr. Marley Nurse Practitioner Mark DEJESUS, Dr. Stewart Nurse Practitioner Pau SAUSAGE STUFFER-C, Amira Nurse Practitioner Oni SAUSAGE STUFFER-C, Debra Jimenez Nurse Practitioner Dr. Carl Couch DO Attending Physician Estuardo DEJESUS, Dr. Linda Mcmillan Nurse Practitioner Liudmila DEJESUS, Dr. Berger Nurse Practitioner Twan DEJESUS, Dr. Ramírez Attending Physician Twan DEJESUS, Dr. Ramírez Referring Provider Dr. Mario Dunaway DO Attending Physician Estuardo DEJESUS, Dr. Linda Mcmillan Attending Physician [phone] Dr. Carl Couch DO Nurse Practitioner Talampas, Peter D Primary Care Unavailable Darcy Herrera Attending Unavailable Talampas, Peter D Primary Care Unavailable Juve Benitez Attending Unavailable Talampas, Peter D Primary Care Unavailable Juve Benitez Attending Unavailable Carl Couch Attending Unavailable Desiree Trent Consulting Unavailable Talampas, Peter D Primary Care Unavailable Desiree Trent Admitting Unavailable Esa Ponce Consulting Unavailable Giovanni Batista Consulting Unavailable Geovany Garcia Consulting Unavailable Mario Dunaway Consulting Unavailable Mitzy Mohamud Consulting Unavailable Deng Burnette Consulting Unavailable Caden Kurtz Consulting Unavailable Frances Natarajan Consulting UnavailMason Jones Consulting Unavailable Chalino Harp Consulting Unavailable Matthew Calixto Consulting Unavailable Juana Mendez Consulting Unavailable Oni Perkins Consulting Unavailable Lance, Germania Consulting Unavailable Donna, Antione Consulting Unavailable Irukulla, Kev Consulting Unavailable Reymundo, Gibson Consulting Unavailable Dhesi, Omar Consulting Unavailable Anabel Cummins Consulting Unavailable Chadwick, Greeryah Consulting Unavailable Fernstrom, Warren Consulting Unavailable Panchabhai, Moses Consulting Unavailable King, Gabino Consulting Unavailable Kuppuswagertrude, Vasanthan Consulting UnavailTerry Aceves Consulting Unavailable Pau LOYOLA, Amira Consulting Unavailable Debra Bunn Consulting Unavailable Koram, Linda Deyanira Consulting Unavailable Ab Nur Consulting Unavailable Darcy Herrera Attending Unavailable Talampas, Peter D Primary Care Unavailable Estuardo, Linda Deyanira Attending Unavailable Desiree Trent Consulting Unavailable Desiree Trent Admitting Unavailable Talampas, Peter D Primary Care Unavailable Esa Ponce Consulting Unavailable Giovanni Batista Consulting Unavailable Geovany Garcia Consulting Unavailable Mario Dunaway Consulting Unavailable Mitzy Mohamud Consulting Unavailable Deng Burnette Consulting Unavailable Caden Kurtz Consulting Unavailable Frances Natarajan Consulting UnavailMason Jones Consulting Unavailable Chalino Harp Consulting Unavailable Matthew Calixto Consulting Unavailable Juana Mendez Consulting Unavailable Oni Perkins Consulting Unavailable Germania Lance Consulting Unavailable Donna, Antione Consulting Unavailable Irukulla, Kev Consulting Unavailable Reymundo, Gibson Consulting Unavailable Dhesi, Omar Consulting Unavailable Maria G, Sujoy Consulting Unavailable Chadwick, Soleyah Consulting Unavailable Fernstrom, Warren Consulting Unavailable Panchabhai, Moses Consulting Unavailable King, Gabino Consulting Unavailable Dougpkasia, Vasanthan Consulting UnavailTerry Aceves Consulting Unavailable Pau LOYOLA, Amira Consulting Unavailable Debra Bunn Consulting Unavailable Koram, Linda Deyanira Consulting Unavailable Carl Couch Attending Unavailable Ab Nur Consulting Unavailable Carl Couch Consulting Unavailable Desiree Trent Attending Unavailable Mario Dunaway Attending Unavailable Desiree Trent Referring Unavailable Talampas, Peter D Primary Care Unavailable Juve Benitez Attending Unavailable Talampas, Peter D Primary Care Unavailable Juve Benitez Attending Unavailable Allergies Allergy Classification Reported Allergen(s) Allergy Type Date of Onset Reaction(s) Facility (20 sources) Contrast media; Translations: [CONTRAST DYE] Drug Intolerance 4 GI Upset [facility] Work Phone: (20 sources) FLUoxetine; Translations: [FLUOXETINE] Drug Allergy 9 Intolerance [facility] Work Phone: (20 sources) Meclizine; Translations: [MECLIZINE] Drug Allergy 4 Mental Status Change, Other: See Comments [facility] Work Phone: Comment on above: PT BECAME EXTREMELY FATIGUED & WAS UNABLE TO WALK AFTER TAKING 12.5MG OF MECLIZINE. (20 sources) venlafaxine; Translations: [VENLAFAXINE HCL] Drug Allergy 9 Rash [facility] Comment on above: CHEST BROKE OUT, GOT REAL DIZZY. (1 source) Meclizine Drug Allergy 5 [facility] (1 source) venlafaxine Drug Allergy 5 [facility] Medications Current Medications Medication Drug Class(es) Dates Sig (Normalized) Sig (Original) acetaminophen 650 mg rectal suppository (6 sources) Start: 03-03-2025 Start: 12-06-2023 take 1-10 tablets by mouth joaquin ry six hours as needed for pain atorvastatin 40 mg oral tablet (20 sources) HMG-CoA Reductase Inhibitor Start: 05-28-2019 End: 09-12-2022 take 1 tablet by mouth at bedtime Comment on above: Take 1 tablet by heraclio th every morning. benoxinate hydrochloride 4 mg/ml / fluorescein sodium 2.5 mg/ml ophthalmic solution (1 source) Diagnostic Dye Start: 01-09-2022 End: 01-09-2022 fluorescein-benoxin ate 0.25-0.4 % 1 Drop (FLURESS) bisacodyl 10 mg rectal suppository (2 sources) Stimulant Laxative Start: 03-03-2025 Blood-Glucose Meter,Continuous (FREESTYLE PILAR 3 READER) misc [...] upper arm. 6 Each 4 11/12/2023 Active cholecalciferol 1.25 mg oral capsule (2 sources) Vitamin D Start: 03-03-2025 take 1 capsule by mouth once in the morning docusate sodium 50 mg / sennosides, residential 8.6 mg oral tablet (6 sources) Start: 03-03-2025 Start: 12-17-2023 End: 03-03-2025 Sennosides-Docusate Sodium ( Stool Softener-Stimulant Laxat) 8.6-50 mg Tablet Discontinued 1 {tbl} PO TWICE A DAY 0 0 December 17, 2023 12:00am March 03, 2025 6:36pm dulaglutide (TRULICITY) 3 mg/0.5 mL pen injector [...] by mouth daily with breakfast. Gets through [employer] PAP. 0 07/25/2022 Active Start: 05-28-2019 End: 12-03-2023 take 1 tablet by mouth once daily Empagliflozin 10 MG tablet Discontinued 10 mg PO DAILY May 28, 2019 1:00am December 03, 2023 12:22am dm Comment on above: Take 1 tablet by heraclio th daily with breakfast. Take 1 tablet by heraclio th daily with breakfast. Gets through [employer] PAP. ertapenem 1000 mg injection (2 sources) Penem Antibacterial Start: 03-08-2025 inject 1 g by intramuscular injection once daily escitalopram 10 mg oral tablet (20 sources) Serotonin Reuptake Inhibitor Start: 05-28-2019 End: 09-12-2022 take 1 tablet by mouth once daily Comment on above: Take 1 tablet by heraclio th once daily. ferrous sulfate 325 mg oral tablet (20 sources) Start: 03-03-2025 take 1 tablet by mouth twice daily Start: 01-10-2021 End: 06-20-2022 take 1 tablet [...] Take 325 mg by mouth once daily. guaiFENesin 20 mg/ml oral solution (2 sources) Start: 03-03-2025 take 200 mg by mouth every four hours as needed for cough 3 ml insulin glargine 100 unt/ml pen injector (8 sources) Insulin Analog Start: 03-08-2025 Start: 03-03-2025 End: 03-08-2025 Insulin Glargine (Lantus Maddie ostar U-100 Insulin) 100 unit/mL (3 mL) insulin pen Discontinued 40 U SC .am March 03, 2025 12:00am March 08, 2025 12:34pm diabetes Start: 03-03-2025 End: 03-08-2025 Insulin Glargine (Lantus Maddie ostar U-100 Insulin) 100 unit/mL (3 mL) insulin pen Discontinued 26 U SC EVERY EVENING March 03, 2025 12:00am March 08, 2025 12:33pm diabetes Insulin Glargine-Yfgn (2 sources) Start: 08-16-2023 Insulin Glargi ne-Yfgn Active 45 UNIT SC AT BEDTIME 0 August 16, 2023 1:00am Start: 08-16-2023 Insulin Glargi ne-Yfgn Active 45 UNIT SC AT BEDTIME 0 August 16, 2023 12:00am 3 ml insulin lispro 100 unt/ ml pen injector (20 sources) Insulin Analog Start: 03-08-2025 Start: 03-08-2025 Insulin Lispro (Humalog Kwikpen Insulin) 100 unit/mL Insulin Pen Active 0 U SC BEFORE MEALS AND AT BEDTIME 0 0 March 08, 2025 12:00am Please contact the information source for Protocol details. Start: 03-03-2025 End: 03-08-2025 Insulin Lispro (Humalog U-10 0 Insulin) 100 unit/mL solution Discontinued 1 sliding scale dose SC .AC March 03, 2025 12:00am March 08, 2025 12:33pm Diabetes BS 151-200=2 units 201-250= 4 units 251-300= 6 units 301-350= 8 units 351-400= 10 units 401-450=12 units >450 call MD Start: 03-03-2025 End: 03-08-2025 Insulin Lispro (Humalog Kwik pen Insulin) 100 unit/mL Insulin Pen Discontinued 5 U SC TWICE DAILY BEFORE MEALS March 03, 2025 12:00am March 08, 2025 12:33pm diabetes Breakfast and Dinner Start: 12-17-2023 End: 03-03-2025 Insulin Lispro (Humalog Kwik pen Insulin) 100 unit/mL Insulin Pen Discontinued 5 U SC THREE TIMES DAILY BEFORE MEALS 0 0 December 17, 2023 12:00am March 03, 2025 6:36pm Start: 12-06-2023 End: 12-17-2023 Insulin Lispro (Humalog Kwik pen Insulin) 100 unit/mL Insulin Pen Discontinued 0 U SC BEFORE MEALS AND AT BEDTIME Protocol: - Use for Total Daily Dose of Insulin 15-27 units- Thin, elderly, renal patientsLOW DOSING ALGORITHM Condition: 150-224 mg/dl = 1 unit Condition: 225-299 mg/dl = 2 units Condition: 300-374 mg/dl = 3 units Condition: 375-449 mg/dl = 4 units Condition: Greater than 449 call physician 0 0 December 06, 2023 12:00am December 17, 2023 8:57pm diabetic Please contact the information source for Protocol details. Start: 12-06-2023 End: 12-17-2023 Insulin Lispro (Humalog [...] U SC BEFORE MEALS AND AT BEDTIME Protocol: - Use for Total Daily Dose of Insulin 37-55 units- Obsese, infected, or steroid patientsMEDIUM DOSING ALGORITHIM Condition: 150-189 mg/dl = 1 unit Condition: 190-229 mg/dl = 2 units Condition: 230-269 mg/dl = 3 units Condition: 270-309 mg/dl = 4 units Condition: 310-349 mg/dl = 5 units Condition: 350-399 mg/dl = 6 units Condition: 400-449 mg/dl = 7 units Condition: Greater than 449 call physician 0 0 August 16, 2023 1:00am December [...] August 16, 2023 1:00am levothyroxine sodium 0.025 m g oral tablet (20 sources) l-Thyroxine Start: 08-09-2023 Start: 08-09-2023 Levothyroxine 25 mcg tablet Active 25 ug PO .MWF August 09, 2023 1:00am Start: 02-28-2023 take 1 tablet by mouth once le vothyroxine (SYNTHROID) 25 mcg tablet Take 1 tablet by mouth every Friday,Friday,Friday. Take on empty stomach. For thyroid. Add to the levothyroxine 50 mcg once daily dosing but just on Fri-Fri-Fri 12 tablet 11 02/28/2023 Active Start: 06-07-2014 End: 09-12-2022 Start: 06-07-2014 take 1 tablet by heraclio th once daily levothyroxine (SYNTHROID) 50 mcg tablet Indications: Acquired hypothyroidism Take 1 tablet by mouth once daily. 90 tablet 3 09/25/2023 Active Comment on above: Take 1 tablet by heraclio five times a week AND 1.5 tablets two times a week. Take 1 tablet by heraclio once daily. [facility]Friday[facility]Friday. Take on empty stomach. For thyroid. Add to the levothyroxine 50 mcg once daily dosing but just on Fri- linezolid 600 mg oral tablet (2 sources) Oxazolidinone Antibacterial Start: 03-08-20 take 1 tablet by mouth twice daily magnesium citrate 58.2 mg/ml oral solution (2 sources) Start: 12-17-19 take 1 mL by mouth once daily as needed for constipation Magnesium Citrate Solution Active 300 mL PO DAILY as needed for constipation 0 0 December 17, 2023 12:00am magnesium hydroxide 80 mg/ml oral suspension (2 sources) Start: 03-03-20 take 1 mL by mouth once daily as needed for constipation Start: 03-03-2025 take 1 mL by mouth o nce daily as needed for constipation Magnesium Hydroxide (Milk Of Magnesia) 400 mg/5 mL suspension Active 30 mL PO DAILY as needed for constipation March 03, 2025 12:00am melatonin 3 mg oral tablet (4 sources) Start: 12-06-2023 take 1 tablet by heraclio at bedtime as needed menthol 0.0044 mg/mg / zinc oxide 0.206 mg/mg topical ointment (8 sources) Start: 12-06-2023 End: 12-06-2023 Start: 12-06-2023 Menthol-Zinc O xide (Calmoseptine) 0.44-20.6 [...] chloride 10 mg extended release oral tablet (3 sources) Cholinergic Muscarinic Antagonist Start: 03-03-2025 take 1 tablet by mouth every twenty-four hours at bedtime Start: 03-03-2025 take 1 tablet by heraclio th once daily Oxybutynin Chloride 10 mg tablet extended release 24hr Active 10 mg PO DAILY March 03, 2025 12:00am pantoprazole 20 mg delayed release oral tablet (20 sources) Proton Pump Inhibitor Start: 03-03-2025 take 1 tablet by mouth once daily Start: 12-17-2023 End: 03-03-2025 take 1 tablet by mouth twice daily Pantoprazole 20 mg Tablet,Delayed Release (Dr/Ec) Discontinued 20 mg PO TWICE A DAY 0 0 December 17, 2023 12:00am March 03, 2025 6:36pm Start: 06-07-2014 End: 12-17-2023 take 1 tablet [...] FOR HOME USE. DX: R00.2, E11.65 Dulaglutide (15 sources) GLP-1 Receptor Agonist Start: 12-03-2023 End: [...] subcutaneously one time a week. Gets through [employer] PAP. 0 07/25/2022 Active Comment on above: Inject 3 mg subcutan eously one time a week. Gets through [employer] PAP. ferrous gluconate 324 mg oral tablet (14 sources) Start: 024 End: 025 take 1 [...] by heraclio th once daily. Insulin Glargine-Yfgn (3 sources) Start: 12-17-2023 End: 03-03-2025 Insulin Glargine-Yfgn 100 unit/mL (3 mL) Insulin Pen Discontinued 35 U SC TWICE A DAY 0 0 December 17, 2023 12:00am March 03, 2025 4:02pm Start: 12-06-2023 End: 12-17-2023 Insulin Glargine-Yfgn 100 un it/mL (3 mL) Insulin Pen Discontinued 30 U SC TWICE A DAY 0 0 December 06, 2023 12:00am December 17, 2023 8:57pm diabetic Start: 08-16-2023 End: 12-03-2023 Insulin Glargine-Yfgn 100 un it/mL (3 mL) Insulin Pen Discontinued 45 U SC AT BEDTIME 0 0 August 16, 2023 1:00am December 03, 2023 12:21am Insulin Glargine-Yfgn 100 unit/mL (3 mL) Insulin Pen (9 sources) Start: 12-17-2023 End: 03-03-2025 Insulin Glargine-Yfgn [...] 12:21am nitrofurantoin, macrocrystals 100 mg oral capsule (6 sources) Nitrofuran Antibacterial Start: 08-16-2023 End: 12-03-2023 take 1 capsule by mouth twice daily at mealtime Nitrofurantoin Macrocrystal 100 mg capsule Discontinued 100 mg PO TWICE A DAY 10 5 0 August 16, 2023 1:00am December 03, 2023 12:21am must administer with a meal/food 24 hr tolterodine tartrate 4 mg extended release oral capsule (4 sources) Cholinergic Muscarinic Antagonist Start: 12-17-2023 End: [...] on above: Take 1 tablet by heraclio once daily. Problems Active Problems Problem Classification Problem Date Documented Da te Episodic/Chronic Bacterial infection; unspecified site (5 sources) Bacteremia caused by Gram-negative bacteria; Translations: [Bacteremia] Onset: 5 03-07-2025 Episodic Calculus of urinary tract (1 source) Recurrent kidney stone; Translations: [Calculus of kidney] Episodic Cataract (1 source) Bilateral senile combined form cataracts of eyes; Translations: [Combined forms of age-related cataract, bilateral] Chronic Deficiency and other anemia (20 sources) Iron deficiency anemia; Translations: [Iron deficiency anemia, unspecified] Onset: 2 08-13-2021 Episodic Deficiency and other anemia (8 sources) Chronic anemia; Translations: [Anemia, unspecified] 08-09-2023 [...] Resolved: 5 Chronic Diabetes mellitus without complication (10 sources) Hyperglycemia; Translations: [Hyperglycemia, unspecified] 08-15-2023 Episodic Disorders of lipid metabolism (20 sources) Hyperlipidemia; Translations: [Hyperlipidemia, unspecified] Onset: 7 Resolved: 5 04-02-2015 Chronic Esophageal disorders (20 sources) Gastroesophageal reflux disease; Translations: [Gastro-esophageal reflux disease without esophagitis] Onset: 7 01-05-2007 Chronic Esophageal disorders (4 sources) Disorder of esophagus; Translations: [Disease of esophagus, unspecified] 12-06-2023 Episodic Fluid and electrolyte disorders (12 sources) Dehydration; Translations: [Dehydration] 08-09-2023 Episodic Genitourinary symptoms and ill-defined conditions (20 sources) Incontinence; Translations: [Mixed incontinence] Onset: 9 08-04-2008 Chronic Malaise and fatigue (20 sources) Asthenia; Translations: [Weakness] Onset: 9 04-15-2019 Episodic Mood disorders (16 sources) Depressive disorder; Translations: [Depression, unspecified depression type] Onset: 7 Resolved: 5 Chronic Nutritional deficiencies (2 sources) Vitamin D deficiency; Translations: [Vitamin D deficiency, unspecified] Onset: 3 02-28-2023 Chronic Other aftercare (6 sources) Patient encounter status; Translations: [Other retirement (current) drug therapy] Episodic Other aftercare (1 source) Encounter for therapeutic drug level monitoring; Translations: [Encounter for therapeutic drug monitoring] Onset: 4 Episodic Other connective tissue disease (1 source) Repeated falls; Translations: [Frequent falls] Onset: 4 Episodic Other eye disorders (1 source) Epithelial basement membrane dystrophy; 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 corneal dystrophy of both eyes] Episodic Other gastrointestinal disorders (4 sources) Dysphagia; Translations: [Dysphagia, unspecified] 12-29-2023 Episodic Other injuries and conditions due to external causes (17 sources) Closed injury of head; Translations: [Unspecified injury of head, initial encounter] 09-21-2022 Episodic Other lower respiratory disease (1 source) Shortness of breath; Translations: [Shortness of breath] Onset: 5 Episodic Other nervous system disorders (4 sources) Disorder of brain; Translations: [Encephalopathy, unspecified] 12-29-2023 Chronic Other nervous system disorders (4 sources) Metabolic encephalopathy; Translations: [Metabolic encephalopathy] 12-14-2023 Chronic Other nutritional; endocrine; and metabolic disorders (20 sources) Obesity; Translations: [Obesity, unspecified] Onset: 7 04-02-2015 Chronic Other nutritional; endocrine; and metabolic disorders (15 sources) Adult failure to thrive syndrome; Translations: [Adult failure to thrive] 08-09-2023 Episodic Other screening for suspected conditions (not mental disorders or infectious disease) (20 sources) Mammography abnormal; Translations: [Other abnormal and inconclusive findings on diagnostic imaging of breast] Onset: 3 02-19-2013 Episodic Respiratory failure; insufficiency; arrest (adult) (5 sources) Acute respiratory failure; Translations: [Acute respiratory failure with hypoxia] Onset: 5 03-03-2025 Episodic Septicemia (except in labor) (5 sources) Sepsis; Translations: [Sepsis, unspecified organism] Onset: 5 03-03-2025 Episodic Superficial injury; contusion (18 sources) Injury of forehead; Translations: [Contusion of other part of head, initial encounter] 09-21-2022 Episodic Thyroid disorders (20 sources) Hypothyroidism; Translations: [Hypothyroidism, unspecified] Onset: 7 Resolved: 5 04-02-2015 Chronic Unclassified (1 source) OPENED IN ERROR Unclassified (6 sources) No history of clinical finding in subject; Translations: [No significant past medical history] 05-31-2019 Urinary tract infections (10 sources) Acute urinary tract infection; Translations: [Urinary tract infection, site not specified] 08-15-2023 Episodic Past or Other Problems Problem Classification Problem Date Documented Da te Episodic/Chronic Conditions associated with dizziness or vertigo (20 sources) Benign paroxysmal positional vertigo; Translations: [Benign paroxysmal vertigo, unspecified ear] Onset: 03-04-2012 03-04-2012 Episodic Deficiency and other anemia (1 source) [...] 08-13-2021 Episodic Other aftercare (1 source) 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; Translations: [Encounter for long-term current use of medication] Onset: 02-28-2023 Episodic Other connective tissue disease (20 sources) Recurrent falls ; Translations: [Repeated falls] Onset: 04-15-2019 04-15-2019 Episodic Other connective tissue disease (1 source) Muscle weakness (generalized); Translations: [Muscle weakness (generalized)] Onset: 11-19-2024 Episodic Other ear and sense organ disorders [...] Test Name Value Interpretation Reference Range Facility Anion gap in Serum or Plasma Ordered By: Juve Dejesus on 03-31-2025 Anion gap [Moles/Vol] 13 mmol/L 5-15 [facility] BUN/creatinine ratioOrdered By: Juve Dejesus on 03-31-2025 Urea nitrogen/Creatinine [Mass ratio] 16.0 mg/mg - [facility] Basic Metabolic Profile (BMP )on 03-31-2025 BUN/CRE 16.0 RATIO Normal - [facility] Comment on above: Order Comment: 504.1 Performed By: #### L 100.0500, L500.2500 ####[facility] [address] [place], [address] Calcium [Mass/Vol] 9.7 mg/dL Normal 7.6-11.0 [facility] Comment on above: Order Comment: 504.1 Performed By: #### L 100.0500, L500.2500 ####[facility] [address] [place], [address] Chloride [Moles/Vol] 101 mmol/L Normal 98-108 [facility] Comment on above: Order Comment: 504.1 Performed By: #### L 100.0500, L500.2500 ####[facility] [address] [place], [address] CO2 [Moles/Vol] 24.0 mmol/L Normal 21.0-32.0 [facility] Comment on above: Order Comment: 504.1 Performed By: #### L 100.0500, L500.2500 ####[facility] [address] [place], [address] Creatinine [Mass/Vol] 0.83 mg/dL Normal 0.70-1.20 [facility] Comment on above: Order Comment: 504.1 Performed By: #### L 100.0500, L500.2500 ####[facility] [address] [place], [address] GAP 13 Normal 5-15 [facility] Comment on above: Order Comment: 504.1 Performed By: #### L 100.0500, L500.2500 ####[facility] [address] [place], [address] GFR/1.73 sq M.predicted among non-blacks MDRD (S/P/Bld) [Vol rate/Area] 71 mL/min/{1.73_m2} Normal >60 [facility] Comment on above: Order Comment: 504.1 Result Comment: mL/m in/1.73m2 CKD-EPI Creatinine Equation (2020) Performed By: #### L 100.0500, L500.2500 ####[facility] [address] [place], [address] Glucose [Mass/Vol] 249 mg/dL High 70-99 [facility] Comment on above: Order Comment: 504.1 Performed By: #### L 100.0500, L500.2500 ####[facility] [address] [place], [address] Potassium [Moles/Vol] 4.1 mmol/L Normal 3.3-5.1 [facility] Comment on above: Order Comment: 504.1 Performed By: #### L 100.0500, L500.2500 ####[facility] [address] [place], [address] Sodium [Moles/Vol] 138 mmol/L Normal 133-145 [facility] Comment on above: Order Comment: 504.1 Performed By: #### L 100.0500, L500.2500 ####[facility] [address] [place], [address] Urea nitrogen [Mass/Vol] 13 mg/dL Normal 4-19 [facility] Comment on above: Order Comment: 504.1 Performed By: #### L 100.0500, L500.2500 ####[facility] [address] [place], [address] CBC-Complete Blood Cnt No Di ffon 03-31-2025 Erythrocyte distribution width (RBC) [Ratio] 15.3 % High 11.6-14.6 [facility] Comment on above: Order Comment: 504.1 Performed By: #### L 100.0500, L500.2500 ####[facility] [address] [place], [address] Hematocrit (Bld) [Volume fraction] 32.5 % Low 37-47 [facility] Comment on above: Order Comment: 504.1 Performed By: #### L 100.0500, L500.2500 ####[facility] [address] [place], [address] Hemoglobin (Bld) [Mass/Vol] 10.1 g/dL Low 12.0-15.0 [facility] Comment on above: Order Comment: 504.1 Performed By: #### L 100.0500, L500.2500 ####[facility] [address] [place], [address] MCH (RBC) [Entitic mass] 30.9 pg Normal 27.0-32.0 [facility] Comment on above: Order Comment: 504.1 Performed By: #### L 100.0500, L500.2500 ####[facility] [address] [place], [address] MCHC (RBC) [Mass/Vol] 31.1 g/dL Low 32-36 [facility] Comment on above: Order Comment: 504.1 Performed By: #### L 100.0500, L500.2500 ####[facility] [address], [address] MCV (RBC) [Entitic vol] 99.4 fL High 81-99 [facility] Comment on above: Order Comment: 504.1 Performed By: #### L 100.0500, L500.2500 ####[facility] [address] [place], [address] Platelet mean volume (Bld) [Entitic vol] 11.2 fL Normal 6.2-12.0 [facility] Comment on above: Order Comment: 504.1 Performed By: #### L 100.0500, L500.2500 ####[facility] [address] [place], [address] Platelets (Bld) [#/Vol] 154 10*3/uL Normal 150-450 [facility] Comment on above: Order Comment: 504.1 Performed By: #### L 100.0500, L500.2500 ####[facility] [address] [place], [address] RBC (Bld) [#/Vol] 3.27 10*6/uL Low 4.2-5.4 [facility] Comment on above: Order Comment: 504.1 Performed By: #### L 100.0500, L500.2500 ####[facility] [address] [place], [address] RDW SD 56.4 fl High 35.1-43.9 [facility] Comment on above: Order Comment: 504.1 Performed By: #### L 100.0500, L500.2500 ####[facility] [address] [place], [address] WBC (Bld) [#/Vol] 6.7 10*3/uL Normal 4.4-11.0 [facility] Comment on above: Order Comment: 504.1 Performed By: #### L 100.0500, L500.2500 ####[facility] [address] [place], [address] Carbon dioxide, total [Moles /volume] in Central venous bloodOrdered By: Juve Dejesus on 03-31-2025 CO2 [Moles/Vol] 24.0 mmol/L 21.0-32.0 [facility] Chloride assayOrdered By: Baljit Dejesus on 03-31-2025 Chloride [Moles/Vol] 101 mmol/L 98-108 [facility] Erythrocyte distribution wid th ratioOrdered By: Juve Dejesus on 03-31-2025 Erythrocyte distribution width (RBC) [Ratio] 15.3 % High 11.6-14.6 [facility] Erythrocyte distribution wid th standard deviationOrdered By: Juve Dejesus on 03-31-2025 Erythrocyte distribution width (RBC) [Ratio] 56.4 fl High 35.1-43.9 [facility] Glomerular filtration rate ( GFR) estimation/1.73 sq m using serum, plasma, or whole bOrdered By: Juve Dejesus on 03-31-2025 GFR/1.73 sq M.predicted among non-blacks MDRD (S/P/Bld) [Vol rate/Area] 71 mL/min/{1.73_m2} >60 [facility] Comment on above: mL/min/1.73m2 CKD-EP I Creatinine Equation (2020) Hematocrit Auto (Bld) [Volum e fraction]Ordered By: Juve Dejesus on 03-31-2025 Hematocrit (Bld) [Volume fraction] 32.5 % Low 37-47 [facility] Hemoglobin measurementOrdere d By: Juve Dejesus on 03-31-2025 Hemoglobin (Bld) [Mass/Vol] 10.1 g/dL Low 12.0-15.0 [facility] MCV (mean corpuscular volume ) determinationOrdered By: Juve Dejesus on 03-31-2025 MCV (RBC) [Entitic vol] 99.4 fL High 81-99 [facility] Mean corpuscular hemoglobin (MCH) determinationOrdered By: Juve Dejesus on 03-31-2025 MCH (RBC) [Entitic mass] 30.9 pg 27.0-32.0 [facility] Mean corpuscular hemoglobin concentration (MCHC) determinationOrdered By: Juve Dejesus on 03-31-2025 MCHC (RBC) [Mass/Vol] 31.1 g/dL Low 32-36 [facility] Mean platelet volume determi nationOrdered By: Juve Dejesus on 03-31-2025 Platelet mean volume (Bld) [Entitic vol] 11.2 fL 6.2-12.0 [facility] Platelet countOrdered By: Baljit Dejesus on 03-31-2025 Platelets (Bld) [#/Vol] 154 10*3/uL 150-450 [facility] Potassium measurement (mass/ volume)Ordered By: Juve Dejesus on 03-31-2025 Potassium (Unsp spec) [Mass/Vol] 4.1 mmol/L 3.3-5.1 [facility] RBC Auto (Bld) [#/Vol]Ordere d By: Juve Dejesus on 03-31-2025 RBC (Bld) [#/Vol] 3.27 10*6/uL Low 4.2-5.4 [facility] Serum creatinine measurement (mass/volume)Ordered By: Juve Dejesus on 03-31-2025 Creatinine [Mass/Vol] 0.83 mg/dL 0.70-1.20 [facility] Serum glucose measurement (m ass/volume)Ordered By: Juve Dejesus on 03-31-2025 Glucose [Mass/Vol] 249 mg/dL High 70-99 [facility] Serum or plasma calcium sonu urement (mass/volume)Ordered By: Juve Dejesus on 03-31-2025 Calcium [Mass/Vol] 9.7 mg/dL 7.6-11.0 [facility] Serum or plasma urea nitroge n measurement (mass/volume)Ordered By: Juve Dejesus on 03-31-2025 Urea nitrogen [Mass/Vol] 13 mg/dL 4- [facility] Sodium levelOrdered By: Samy Dejesus on 03-31-2025 Sodium [Moles/Vol] 138 mmol/L 133-145 [facility] White blood cell (WBC) count Ordered By: Juve Dejesus on 03-31-2025 WBC (Bld) [#/Vol] 6.7 10*3/uL 4.4-11.0 [facility] Basic Metabolic Profile (BMP )on 03-12-2025 BUN Normal - [facility] Comment on above: Result Comment: Canc elled via OM: Order cancelled - Patient discharged Performed By: #### L 100.0100, L500.2500 ####[facility] [address] [place], [place], [address] BUN/CRE Normal - [facility] Comment on above: Result Comment: Canc elled via OM: Order cancelled - Patient discharged Performed By: #### L 100.0100, L500.2500 ####[facility] [address] [place], [address] Calcium Normal 7.6-11.0 [facility] Comment on above: Result Comment: Canc elled via OM: Order cancelled - Patient discharged Performed By: #### L 100.0100, L500.2500 ####[facility] [address] [place], [address] CL Normal 98-108 [facility] Comment on above: Result Comment: Canc elled via OM: Order cancelled - Patient discharged Performed By: #### L 100.0100, L500.2500 ####[facility] [address] [place], [address] CO2 Normal 21.0-32.0 [facility] Comment on above: Result Comment: Canc elled via OM: Order cancelled - Patient discharged Performed By: #### L 100.0100, L500.2500 ####[facility] [address] [place], [address] CREAT,SERUM Normal 0.70-1.20 [facility] Comment on above: Result Comment: Canc elled via OM: Order cancelled - Patient discharged Performed By: #### L 100.0100, L500.2500 ####[facility] [address] [place], [address] eGFR Normal >60 [facility] Comment on above: Result Comment: Canc elled via OM: Order cancelled - Patient discharged Performed By: #### L 100.0100, L500.2500 ####[facility] [address] [place], [address] GAP Normal 5-15 [facility] Comment on above: Result Comment: Canc elled via OM: Order cancelled - Patient discharged Performed By: #### L 100.0100, L500.2500 ####[facility] [address] [place], [address] GLU Normal 70-99 [facility] Comment on above: Result Comment: Canc elled via OM: Order cancelled - Patient discharged Performed By: #### L 100.0100, L500.2500 ####[facility] [address] [place], [address] Potassium Normal 3.3-5.1 [facility] Comment on above: Result Comment: Canc elled via OM: Order cancelled - Patient discharged Performed By: #### L 100.0100, L500.2500 ####[facility] [address] [place], [address] Basic Metabolic Profile (BMP) Normal 133-145 [facility] Comment on above: Result Comment: Canc elled via OM: Order cancelled - Patient discharged Performed By: #### L 100.0100, L500.2500 ####[facility] [address] [place], [address] CBC W/Diff, Automatedon - Absolute Neut Normal 2.0-7.7 [facility] Comment on above: Result Comment: Canc elled via OM: Order cancelled - Patient discharged Performed By: #### L 100.0100, L500.2500 ####[facility] [address] [place], [address] HCT Normal 37-47 [facility] Comment on above: Result Comment: Canc elled via OM: Order cancelled - Patient discharged Performed By: #### L 100.0100, L500.2500 ####[facility] [address] [place], [address] HGB Normal 12.0-15.0 [facility] Comment on above: Result Comment: Canc elled via OM: Order cancelled - Patient discharged Performed By: #### L 100.0100, L500.2500 ####[facility] [address] [place], [address] MCH Normal 27.0-32.0 [facility] Comment on above: Result Comment: Canc elled via OM: Order cancelled - Patient discharged Performed By: #### L 100.0100, L500.2500 ####[facility] [address] [place], [address] MCHC Normal 32-36 [facility] Comment on above: Result Comment: Canc elled via OM: Order cancelled - Patient discharged Performed By: #### L 100.0100, L500.2500 ####[facility] [address] [place], [address] MCV Normal 81-99 [facility] Comment on above: Result Comment: Canc elled via OM: Order cancelled - Patient discharged Performed By: #### L 100.0100, L500.2500 ####[facility] [address] [place], [address] NEUT% Normal 47-70 [facility] Comment on above: Result Comment: Canc elled via OM: Order cancelled - Patient discharged Performed By: #### L 100.0100, L500.2500 ####[facility] [address] [place], [address] PLT Normal 150-450 [facility] Comment on above: Result Comment: Canc elled via OM: Order cancelled - Patient discharged Performed By: #### L 100.0100, L500.2500 ####[facility] [address] [place], [address] RBC Normal 4.2-5.4 [facility] Comment on above: Result Comment: Canc elled via OM: Order cancelled - Patient discharged Performed By: #### L 100.0100, L500.2500 ####[facility] [address] [place], [address] RDW CV Normal 11.6-14.6 [facility] Comment on above: Result Comment: Canc elled via OM: Order cancelled - Patient discharged Performed By: #### L 100.0100, L500.2500 ####[facility] [address] [place], [address] RDW SD Normal 35.1-43.9 [facility] Comment on above: Result Comment: Canc elled via OM: Order cancelled - Patient discharged Performed By: #### L 100.0100, L500.2500 ####[facility] [address] [place], [address] WBC Normal 4.4-11.0 [facility] Comment on above: Result Comment: Canc elled via OM: Order cancelled - Patient discharged Performed By: #### L 100.0100, L500.2500 ####[facility] [address] [place], [address] Basic Metabolic Profile (BMP )on 03-11-2025 BUN Normal 4-19 [facility] Comment on above: Result Comment: Canc elled via OM: Order cancelled - Patient discharged Performed By: #### L 500.2500, L100.0100 ####[facility] [address] [place], [address] BUN/CRE Normal 10-20 [facility] Comment on above: Result Comment: Canc elled via OM: Order cancelled - Patient discharged Performed By: #### L 500.2500, L100.0100 ####[facility] [address] [place], [address] Calcium Normal 7.6-11.0 [facility] Comment on above: Result Comment: Canc elled via OM: Order cancelled - Patient discharged Performed By: #### L 500.2500, L100.0100 ####[facility] [address] [place], [address] CL Normal 98-108 [facility] Comment on above: Result Comment: Canc elled via OM: Order cancelled - Patient discharged Performed By: #### L 500.2500, L100.0100 ####[facility] [address] [place], [address] CO2 Normal 21.0-32.0 [facility] Comment on above: Result Comment: Canc elled via OM: Order cancelled - Patient discharged Performed By: #### L 500.2500, L100.0100 ####[facility] [address] [place], [address] CREAT,SERUM Normal 0.70-1.20 [facility] Comment on above: Result Comment: Canc elled via OM: Order cancelled - Patient discharged Performed By: #### L 500.2500, L100.0100 ####[facility] [address] [place], [address] eGFR Normal >60 [facility] Comment on above: Result Comment: Canc elled via OM: Order cancelled - Patient discharged Performed By: #### L 500.2500, L100.0100 ####[facility] [address] [place], [address] GAP Normal 5-15 [facility] Comment on above: Result Comment: Canc elled via OM: Order cancelled - Patient discharged Performed By: #### L 500.2500, L100.0100 ####[facility] [address] [place], [address] GLU Normal 70-99 [facility] Comment on above: Result Comment: Canc elled via OM: Order cancelled - Patient discharged Performed By: #### L 500.2500, L100.0100 ####[facility] [address] [place], [address] Potassium Normal 3.3-5.1 [facility] Comment on above: Result Comment: Canc elled via OM: Order cancelled - Patient discharged Performed By: #### L 500.2500, L100.0100 ####[facility] [address] [place], [address] Basic Metabolic Profile (BMP) Normal 133-145 [facility] Comment on above: Result Comment: Canc elled via OM: Order cancelled - Patient discharged Performed By: #### L 500.2500, L100.0100 ####[facility] [address] [place], [address] CBC W/Diff, Automatedon 02-28 Absolute Neut Normal 2.0-7.7 [facility] Comment on above: Result Comment: Canc elled via OM: Order cancelled - Patient discharged Performed By: #### L 500.2500, L100.0100 ####[facility] [address] [place], [address] HCT Normal 37-47 [facility] Comment on above: Result Comment: Canc elled via OM: Order cancelled - Patient discharged Performed By: #### L 500.2500, L100.0100 ####[facility] [address] [place], [address] HGB Normal 12.0-15.0 [facility] Comment on above: Result Comment: Canc elled via OM: Order cancelled - Patient discharged Performed By: #### L 500.2500, L100.0100 ####[facility] [address] [place], [address] MCH Normal 27.0-32.0 [facility] Comment on above: Result Comment: Canc elled via OM: Order cancelled - Patient discharged Performed By: #### L 500.2500, L100.0100 ####[facility] [address] [place], [address] MCHC Normal 32-36 [facility] Comment on above: Result Comment: Canc elled via OM: Order cancelled - Patient discharged Performed By: #### L 500.2500, L100.0100 ####[facility] [address], [address] MCV Normal 81-99 [facility] Comment on above: Result Comment: Canc elled via OM: Order cancelled - Patient discharged Performed By: #### L 500.2500, L100.0100 ####[facility] [address] [place], [address] NEUT% Normal 47-70 [facility] Comment on above: Result Comment: Canc elled via OM: Order cancelled - Patient discharged Performed By: #### L 500.2500, L100.0100 ####[facility] [address] [place], [address] PLT Normal 150-450 [facility] Comment on above: Result Comment: Canc elled via OM: Order cancelled - Patient discharged Performed By: #### L 500.2500, L100.0100 ####[facility] [address] [place], [address] RBC Normal 4.2-5.4 [facility] Comment on above: Result Comment: Canc elled via OM: Order cancelled - Patient discharged Performed By: #### L 500.2500, L100.0100 ####[facility] [address] [place], [address] RDW CV Normal 11.6-14.6 [facility] Comment on above: Result Comment: Canc elled via OM: Order cancelled - Patient discharged Performed By: #### L 500.2500, L100.0100 ####[facility] [address] [place], [address] RDW SD Normal 35.1-43.9 [facility] Comment on above: Result Comment: Canc elled via OM: Order cancelled - Patient discharged Performed By: #### L 500.2500, L100.0100 ####[facility] [address] [place], [address] WBC Normal 4.4-11.0 [facility] Comment on above: Result Comment: Canc elled via OM: Order cancelled - Patient discharged Performed By: #### L 500.2500, L100.0100 ####[facility] [address] [place], [address] Anion gap in Serum or Plasma Ordered By: Juve Dejesus on 03-10-2025 Anion gap [Moles/Vol] 10 mmol/L 5-15 [facility] BUN/creatinine ratioOrdered By: Juve Dejesus on 03-10-2025 Urea nitrogen/Creatinine [Mass ratio] 8.7 mg/mg Low 10- [facility] Basic Metabolic Profile (BMP )on 03-10-2025 BUN/CRE 8.7 RATIO Low - [facility] Comment on above: Order Comment: 301.1 Performed By: #### L 501.9985, L500.2500, L501.9520, L100.0500, L500.4100, L501.9310 ####[facility] [address] [place], [address] Calcium [Mass/Vol] 8.6 mg/dL Normal 7.6-11.0 [facility] Comment on above: Order Comment: 301.1 Performed By: #### L 501.9985, L500.2500, L501.9520, L100.0500, L500.4100, L501.9310 ####[facility] [address] [place], [address] Chloride [Moles/Vol] 105 mmol/L Normal 98-108 [facility] Comment on above: Order Comment: 301.1 Performed By: #### L 501.9985, L500.2500, L501.9520, L100.0500, L500.4100, L501.9310 ####[facility] [address] [place], [address] CO2 [Moles/Vol] 26.3 mmol/L Normal 21.0-32.0 [facility] Comment on above: Order Comment: 301.1 Performed By: #### L 501.9985, L500.2500, L501.9520, L100.0500, L500.4100, L501.9310 ####[facility] [address] [place], [address] Creatinine [Mass/Vol] 0.66 mg/dL Low 0.70-1.20 [facility] Comment on above: Order Comment: 301.1 Performed By: #### L 501.9985, L500.2500, L501.9520, L100.0500, L500.4100, L501.9310 ####[facility] [address] [place], [address] GAP 10 Normal 5-15 [facility] Comment on above: Order Comment: 301.1 Performed By: #### L 501.9985, L500.2500, L501.9520, L100.0500, L500.4100, L501.9310 ####[facility] [address] [place], [address] GFR/1.73 sq M.predicted among non-blacks MDRD (S/P/Bld) [Vol rate/Area] 88 mL/min/{1.73_m2} Normal >60 [facility] Comment on above: Order Comment: 301.1 Result Comment: mL/m in/1.73m2 CKD-EPI Creatinine Equation (2020) Performed By: #### L 501.9985, L500.2500, L501.9520, L100.0500, L500.4100, L501.9310 ####[facility] [address] [place], [address] Glucose [Mass/Vol] 148 mg/dL High 70-99 [facility] Comment on above: Order Comment: 301.1 Performed By: #### L 501.9985, L500.2500, L501.9520, L100.0500, L500.4100, L501.9310 ####[facility] [address] [place], [address] Potassium [Moles/Vol] 3.2 mmol/L Low 3.3-5.1 [facility] Comment on above: Order Comment: 301.1 Performed By: #### L 501.9985, L500.2500, L501.9520, L100.0500, L500.4100, L501.9310 ####[facility] [address] [place], [address] Sodium [Moles/Vol] 141 mmol/L Normal 133-145 [facility] Comment on above: Order Comment: 301.1 Performed By: #### L 501.9985, L500.2500, L501.9520, L100.0500, L500.4100, L501.9310 ####[facility] [address] [place], [address] Urea nitrogen [Mass/Vol] 6 mg/dL Normal 4-19 [facility] Comment on above: Order Comment: 301.1 Performed By: #### L 501.9985, L500.2500, L501.9520, L100.0500, L500.4100, L501.9310 ####[facility] [address] [place], [address] BUN Normal 4-19 [facility] Comment on above: Result Comment: Canc elled via OM: Order cancelled - Patient discharged Performed By: #### L 500.2500, L100.0100 ####[facility] [address] [place], [address] BUN/CRE Normal 10-20 [facility] Comment on above: Result Comment: Canc elled via OM: Order cancelled - Patient discharged Performed By: #### L 500.2500, L100.0100 ####[facility] [address] [place], [address] Calcium Normal 7.6-11.0 [facility] Comment on above: Result Comment: Canc elled via OM: Order cancelled - Patient discharged Performed By: #### L 500.2500, L100.0100 ####[facility] [address] [place], [address] CL Normal 98-108 [facility] Comment on above: Result Comment: Canc elled via OM: Order cancelled - Patient discharged Performed By: #### L 500.2500, L100.0100 ####[facility] [address] [place], [address] CO2 Normal 21.0-32.0 [facility] Comment on above: Result Comment: Canc elled via OM: Order cancelled - Patient discharged Performed By: #### L 500.2500, L100.0100 ####[facility] [address] [place], [address] CREAT,SERUM Normal 0.70-1.20 [facility] Comment on above: Result Comment: Canc elled via OM: Order cancelled - Patient discharged Performed By: #### L 500.2500, L100.0100 ####[facility] [address] [place], [address] eGFR Normal >60 [facility] Comment on above: Result Comment: Canc elled via OM: Order cancelled - Patient discharged Performed By: #### L 500.2500, L100.0100 ####[facility] [address] [place], [address] GAP Normal 5-15 [facility] Comment on above: Result Comment: Canc elled via OM: Order cancelled - Patient discharged Performed By: #### L 500.2500, L100.0100 ####[facility] [address] [place], [address] GLU Normal 70-99 [facility] Comment on above: Result Comment: Canc elled via OM: Order cancelled - Patient discharged Performed By: #### L 500.2500, L100.0100 ####[facility] [address], [address] Potassium Normal 3.3-5.1 [facility] Comment on above: Result Comment: Canc elled via OM: Order cancelled - Patient discharged Performed By: #### L 500.2500, L100.0100 ####[facility] [address], [address] Basic Metabolic Profile (BMP) Normal 133-145 [facility] Comment on above: Result Comment: Canc elled via OM: Order cancelled - Patient discharged Performed By: #### L 500.2500, L100.0100 ####[facility] [address] [place], [address] CBC W/Diff, Automatedon 09-1 Absolute Neut Normal 2.0-7.7 [facility] Comment on above: Result Comment: Canc elled via OM: Order cancelled - Patient discharged Performed By: #### L 500.2500, L100.0100 ####[facility] [address] [place], [address] HCT Normal 37-47 [facility] Comment on above: Result Comment: Canc elled via OM: Order cancelled - Patient discharged Performed By: #### L 500.2500, L100.0100 ####[facility] [address], [address] HGB Normal 12.0-15.0 [facility] Comment on above: Result Comment: Canc elled via OM: Order cancelled - Patient discharged Performed By: #### L 500.2500, L100.0100 ####[facility] [address], [address] MCH Normal 27.0-32.0 [facility] Comment on above: Result Comment: Canc elled via OM: Order cancelled - Patient discharged Performed By: #### L 500.2500, L100.0100 ####[facility] [address] [place], [address] MCHC Normal 32-36 [facility] Comment on above: Result Comment: Canc elled via OM: Order cancelled - Patient discharged Performed By: #### L 500.2500, L100.0100 ####[facility] [address] [place], [address] MCV Normal 81-99 [facility] Comment on above: Result Comment: Canc elled via OM: Order cancelled - Patient discharged Performed By: #### L 500.2500, L100.0100 ####[facility] [address] [place], [address] NEUT% Normal 47-70 [facility] Comment on above: Result Comment: Canc elled via OM: Order cancelled - Patient discharged Performed By: #### L 500.2500, L100.0100 ####[facility] [address] [place], [address] PLT Normal 150-450 [facility] Comment on above: Result Comment: Canc elled via OM: Order cancelled - Patient discharged Performed By: #### L 500.2500, L100.0100 ####[facility] [address] [place], [address] RBC Normal 4.2-5.4 [facility] Comment on above: Result Comment: Canc elled via OM: Order cancelled - Patient discharged Performed By: #### L 500.2500, L100.0100 ####[facility] [address] [place], [address] RDW CV Normal 11.6-14.6 [facility] Comment on above: Result Comment: Canc elled via OM: Order cancelled - Patient discharged Performed By: #### L 500.2500, L100.0100 ####[facility] [address] [place], [address] RDW SD Normal 35.1-43.9 [facility] Comment on above: Result Comment: Canc elled via OM: Order cancelled - Patient discharged Performed By: #### L 500.2500, L100.0100 ####[facility] [address] [place], [address] WBC Normal 4.4-11.0 [facility] Comment on above: Result Comment: Canc elled via OM: Order cancelled - Patient discharged Performed By: #### L 500.2500, L100.0100 ####[facility] [address] [place], [address] CBC-Complete Blood Cnt No Di ffon 03-10-2025 Erythrocyte distribution width (RBC) [Ratio] 14.2 % Normal 11.6-14.6 [facility] Comment on above: Order Comment: 301.1 Performed By: #### L 501.9985, L500.2500, L501.9520, L100.0500, L500.4100, L501.9310 ####[facility] [address] [place], [address] Hematocrit (Bld) [Volume fraction] 27.9 % Low 37-47 [facility] Comment on above: Order Comment: 301.1 Performed By: #### L 501.9985, L500.2500, L501.9520, L100.0500, L500.4100, L501.9310 ####[facility] [address] [place], [address] Hemoglobin (Bld) [Mass/Vol] 8.8 g/dL Low 12.0-15.0 [facility] Comment on above: Order Comment: 301.1 Performed By: #### L 501.9985, L500.2500, L501.9520, L100.0500, L500.4100, L501.9310 ####[facility] [address] [place], [address] MCH (RBC) [Entitic mass] 30.8 pg Normal 27.0-32.0 [facility] Comment on above: Order Comment: 301.1 Performed By: #### L 501.9985, L500.2500, L501.9520, L100.0500, L500.4100, L501.9310 ####[facility] [address] [place], [address] MCHC (RBC) [Mass/Vol] 31.5 g/dL Low 32-36 [facility] Comment on above: Order Comment: 301.1 Performed By: #### L 501.9985, L500.2500, L501.9520, L100.0500, L500.4100, L501.9310 ####[facility] [address] [place], [address] MCV (RBC) [Entitic vol] 97.6 fL Normal 81-99 [facility] Comment on above: Order Comment: 301.1 Performed By: #### L 501.9985, L500.2500, L501.9520, L100.0500, L500.4100, L501.9310 ####[facility] [address] [place], [address] Platelet mean volume (Bld) [Entitic vol] 10.9 fL Normal 6.2-12.0 [facility] Comment on above: Order Comment: 301.1 Performed By: #### L 501.9985, L500.2500, L501.9520, L100.0500, L500.4100, L501.9310 ####[facility] [address] [place], [address] Platelets (Bld) [#/Vol] 169 10*3/uL Normal 150-450 [facility] Comment on above: Order Comment: 301.1 Performed By: #### L 501.9985, L500.2500, L501.9520, L100.0500, L500.4100, L501.9310 ####[facility] [address] [place], [address] RBC (Bld) [#/Vol] 2.86 10*6/uL Low 4.2-5.4 [facility] Comment on above: Order Comment: 301.1 Performed By: #### L 501.9985, L500.2500, L501.9520, L100.0500, L500.4100, L501.9310 ####[facility] [address] [place], [address] RDW SD 49.1 fl High 35.1-43.9 [facility] Comment on above: Order Comment: 301.1 Performed By: #### L 501.9985, L500.2500, L501.9520, L100.0500, L500.4100, L501.9310 ####[facility] [address] [place], [address] WBC (Bld) [#/Vol] 4.2 10*3/uL Low 4.4-11.0 [facility] Comment on above: Order Comment: 301.1 Performed By: #### L 501.9985, L500.2500, L501.9520, L100.0500, L500.4100, L501.9310 ####[facility] [address] [place], [address] Calculated very low density lipoprotein (VLDL) cholesterol measurementOrdered By: Juve Dejesus on 03-10-2025 Calculated very low density lipoprotein (VLDL) cholesterol measurement 26 mg/dL 5-40 [facility] Carbon dioxide, total [Moles /volume] in Central venous bloodOrdered By: Juve Dejesus on 03-10-2025 CO2 [Moles/Vol] 26.3 mmol/L 21.0-32.0 [facility] Chloride assayOrdered By: Baljit Dejesus on 09-11-2025 Chloride [Moles/Vol] 105 mmol/L 98-108 [facility] Erythrocyte distribution wid th ratioOrdered By: Juve Dejesus on 03-10-2025 Erythrocyte distribution width (RBC) [Ratio] 14.2 % 11.6-14.6 [facility] Erythrocyte distribution wid th standard deviationOrdered By: Juve Dejesus on 03-10-2025 Erythrocyte distribution width (RBC) [Ratio] 49.1 fl High 35.1-43.9 [facility] Glomerular filtration rate ( GFR) estimation/1.73 sq m using serum, plasma, or whole bOrdered By: Juve Dejesus on 03-10-2025 GFR/1.73 sq M.predicted among non-blacks MDRD (S/P/Bld) [Vol rate/Area] 88 mL/min/{1.73_m2} >60 [facility] Comment on above: mL/min/1.73m2 CKD-EP I Creatinine Equation (2020) Hematocrit Auto (Bld) [Volum e fraction]Ordered By: Juve Dejesus on 03-10-2025 Hematocrit (Bld) [Volume fraction] 27.9 % Low 37-47 [facility] Hemoglobin A1con 03-10-2025 HbA1c (Bld) [Mass fraction] 7.5 % High <=5.6 [facility] Comment on above: Order Comment: 301.1 Result Comment: Norm al < 5.7 % Prediabetic 5.7 - 6.4 % Diabetic >or= 6.5 % Please note range changes. Performed By: #### L 501.9985, L500.2500, L501.9520, L100.0500, L500.4100, L501.9310 ####[facility] [address] [place], [place], [id number] Hemoglobin A1c percentageOrd ered By: Juve Dejesus on 03-10-2025 HbA1c (Bld) [Mass fraction] 7.5 % High <5.7 [facility] Comment on above: Normal < 5.7 % Predi abetic 5.7 - 6.4 % Diabetic >or= 6.5 % Please note range changes. Hemoglobin measurementOrdere d By: Juve Dejesus on 03-10-2025 Hemoglobin (Bld) [Mass/Vol] 8.8 g/dL Low 12.0-15.0 [facility] LDL calc ser/plasOrdered By: Juve Dejesus on 03-10-2025 Cholesterol in LDL [Mass/Vol] 34 mg/dL [facility] Comment on above: Hdvkobwfnb=060-671 m g/dL & Higher Mhri=547 mg/dL or greaterFriedwald Equation for LDL-C Lipid Profileon 03-10-2025 CHOL:HDL 4.57 Normal [facility] Comment on above: Order Comment: 301.1 Performed By: #### L 501.9985, L500.2500, L501.9520, L100.0500, L500.4100, L501.9310 ####[facility] [address] [place], [address] Cholesterol [Mass/Vol] 77 mg/dL Normal <=200 [facility] Comment on above: Order Comment: 301.1 Result Comment: Chol esterol level, Desirable <200 mg/dLBorderline high cholesterol 200-239 mg/dLHigh cholesterol >=240 mg/dLRecommendations of the NCEP Adult Treatment Panel for thefollowing risk-cutoff thresholds for the [place] Americanpopulation. Performed By: #### L 501.9985, L500.2500, L501.9520, L100.0500, L500.4100, L501.9310 ####[facility] [address], [address] Cholesterol in HDL [Mass/Vol] 17 mg/dL Low [facility] Comment on above: Order Comment: 301.1 Result Comment: Zhane onal Cholesterol Education Program (NCEP) guidelines:<40 mg/dL: Low HDL-cholesterol (major risk factor for CHD)>= 60 mg/dL: High HDL-cholesterol (negative risk factor forCHD)HDL-cholesterol is affected by a number of factors, e.g.smoking, exercise, hormones, sex and age. Performed By: #### L 501.9985, L500.2500, L501.9520, L100.0500, L500.4100, L501.9310 ####[facility] [address] [place], [address] Cholesterol in LDL [Mass/Vol] 34 mg/dL Normal [facility] Comment on above: Order Comment: 301.1 Result Comment: Bord octoxj=880-585 mg/dL Higher Uwmt=119 mg/dL or greaterFriedwald Equation for LDL-C Performed By: #### L 501.9985, L500.2500, L501.9520, L100.0500, L500.4100, L501.9310 ####[facility] [address] [place], [address] Cholesterol in VLDL [Mass/Vol] 26 mg/dL Normal 5-40 [facility] Comment on above: Order Comment: 301.1 Performed By: #### L 501.9985, L500.2500, L501.9520, L100.0500, L500.4100, L501.9310 ####[facility] [address] [place], [address] Triglyceride [Mass/Vol] 129 mg/dL Normal [facility] Comment on above: Order Comment: 301.1 Result Comment: The drugs N-Acetylcysteine and Metamizole may falselydepress this assay.Normal range: <150 mg/dLBorderline High: 150-199 mg/dLHigh: 200-499 mg/dLVery High: >500 mg/dL Performed By: #### L 501.9985, L500.2500, L501.9520, L100.0500, L500.4100, L501.9310 ####[facility] [address] [place], [address] MCV (mean corpuscular volume ) determinationOrdered By: Juve Dejesus on 03-10-2025 MCV (RBC) [Entitic vol] 97.6 fL 81-[address] [facility] Mean corpuscular hemoglobin (MCH) determinationOrdered By: Juve Dejesus on 03-10-2025 MCH (RBC) [Entitic mass] 30.8 pg 27.0-32.0 [facility] Mean corpuscular hemoglobin concentration (MCHC) determinationOrdered By: Juve Dejesus on 03-10-2025 MCHC (RBC) [Mass/Vol] 31.5 g/dL Low 32-36 [facility] Mean platelet volume determi nationOrdered By: Juve Dejesus on 03-10-2025 Platelet mean volume (Bld) [Entitic vol] 10.9 fL 6.2-12.0 [facility] Platelet countOrdered By: Baljit Dejesus on 03-10-2025 Platelets (Bld) [#/Vol] 169 10*3/uL 150-450 [facility] Potassium measurement (mass/ volume)Ordered By: Juve Dejesus on 03-10-2025 Potassium (Unsp spec) [Mass/Vol] 3.2 mmol/L Low 3.3-5.1 [facility] RBC Auto (Bld) [#/Vol]Ordere d By: Juve Dejesus on 03-10-2025 RBC (Bld) [#/Vol] 2.86 10*6/uL Low 4.2-5.4 [facility] Screening total cholesterol/ high density lipoprotein (HDL) cholesterol ratioOrdered By: Juve Dejesus on 03-10-2025 Cholesterol.total/Choles terol in HDL [Mass ratio] 4.57 {ratio} [facility] Serum creatinine measurement (mass/volume)Ordered By: Juve Dejesus on 03-10-2025 Creatinine [Mass/Vol] 0.66 mg/dL Low 0.70-1.20 [facility] Serum glucose measurement (m ass/volume)Ordered By: Juve Dejesus on 03-10-2025 Glucose [Mass/Vol] 148 mg/dL High 70-99 [facility] Serum or plasma calcium sonu urement (mass/volume)Ordered By: Juve Dejesus on 03-10-2025 Calcium [Mass/Vol] 8.6 mg/dL 7.6-11.0 [facility] Serum or plasma cholesterol in HDL measurement (mass/volume)Ordered By: Juve Dejesus on 03-10-2025 Cholesterol in HDL [Mass/Vol] 17 mg/dL Low >40 [facility] Comment on above: National Cholesterol Education Program (NCEP) guidelines:<40 mg/dL: Low HDL-cholesterol (major risk factor for CHD)>= 60 mg/dL: High HDL-cholesterol (negative risk factor for CHD)HDL-cholesterol is affected by a number of factors, e.g. smoking, exercise, hormones, sex and age. Serum or plasma cholesterol measurement (mass/volume)Ordered By: Juve Dejesus on 03-10-2025 Cholesterol [Mass/Vol] 77 mg/dL <201 [facility] Comment on above: Cholesterol level, D esirable <200 mg/dLBorderline high cholesterol 200-239 mg/dLHigh cholesterol >=240 mg/dLRecommendations of the NCEP Adult Treatment Panel for the following risk-cutoff thresholds for the [place] population. Serum or plasma urea nitroge n measurement (mass/volume)Ordered By: Juve Dejesus on 03-10-2025 Urea nitrogen [Mass/Vol] 6 mg/dL 4-19 [facility] Sodium levelOrdered By: Samy Dejesus on 03-10-2025 Sodium [Moles/Vol] 141 mmol/L 133-145 [facility] T4 Total, Thyroxinon 025 T4 [Mass/Vol] 9.1 ug/dL Normal 4.8-13.9 [facility] Comment on above: Order Comment: 301.1 Performed By: #### L 501.9985, L500.2500, L501.9520, L100.0500, L500.4100, L501.9310 ####[facility] [address] [place], [place], [address] TSH DL <= 0.005 mIU/L QnOrde red By: Juve Dejesus on 03-10-2025 TSH Qn 2.740 uIU/mL 0.300-4.200 [facility] Thyroid Stim Hormone (TSH)on 03-10-2025 TSH 2.740 uIU/mL Normal 0.300-4.200 [facility] Comment on above: Order Comment: 301.1 Performed By: #### L 501.9985, L500.2500, L501.9520, L100.0500, L500.4100, L501.9310 ####[facility] [address] [place], [address] ThyroxineOrdered By: Juve gordon on 03-10-2025 T4 [Mass/Vol] 9.1 ug/dL 4.8-13.9 [facility] Triglycerides measurementOrd ered By: Juve Dejesus on 03-10-2025 Triglyceride [Mass/Vol] 129 mg/dL <199 [facility] Comment on above: The drugs N-Acetylcy steine and Metamizole may falsely depress this assay. Normal range: <150 mg/dLBorderline High: 150-199 mg/dLHigh: 200-499 mg/dLVery High: >500 mg/dL White blood cell (WBC) count Ordered By: Juve Dejesus on 03-10-2025 WBC (Bld) [#/Vol] 4.2 10*3/uL Low 4.4-11.0 [facility] Basic Metabolic Profile (BMP )on 03-09-2025 BUN Normal 4-19 [facility] Comment on above: Result Comment: Canc elled via OM: Order cancelled - Patient discharged Performed By: #### L 500.2500, L100.0100 ####[facility] [address] [place], [address] BUN/CRE Normal 10-20 [facility] Comment on above: Result Comment: Canc elled via OM: Order cancelled - Patient discharged Performed By: #### L 500.2500, L100.0100 ####[facility] [address] [place], [address] Calcium Normal 7.6-11.0 [facility] Comment on above: Result Comment: Canc elled via OM: Order cancelled - Patient discharged Performed By: #### L 500.2500, L100.0100 ####[facility] [address] [place], [address] CL Normal 98-108 [facility] Comment on above: Result Comment: Canc elled via OM: Order cancelled - Patient discharged Performed By: #### L 500.2500, L100.0100 ####[facility] [address] [place], [address] CO2 Normal 21.0-32.0 [facility] Comment on above: Result Comment: Canc elled via OM: Order cancelled - Patient discharged Performed By: #### L 500.2500, L100.0100 ####[facility] [address] [place], [address] CREAT,SERUM Normal 0.70-1.20 [facility] Comment on above: Result Comment: Canc elled via OM: Order cancelled - Patient discharged Performed By: #### L 500.2500, L100.0100 ####[facility] [address] [place], [address] eGFR Normal >60 [facility] Comment on above: Result Comment: Canc elled via OM: Order cancelled - Patient discharged Performed By: #### L 500.2500, L100.0100 ####[facility] [address] [place], [address] GAP Normal 5-15 [facility] Comment on above: Result Comment: Canc elled via OM: Order cancelled - Patient discharged Performed By: #### L 500.2500, L100.0100 ####[facility] [address] [place], [address] GLU Normal 70-99 [facility] Comment on above: Result Comment: Canc elled via OM: Order cancelled - Patient discharged Performed By: #### L 500.2500, L100.0100 ####[facility] [address] [place], [address] Potassium Normal 3.3-5.1 [facility] Comment on above: Result Comment: Canc elled via OM: Order cancelled - Patient discharged Performed By: #### L 500.2500, L100.0100 ####[facility] [address] [place], [address] Basic Metabolic Profile (BMP) Normal 133-145 [facility] Comment on above: Result Comment: Canc elled via OM: Order cancelled - Patient discharged Performed By: #### L 500.2500, L100.0100 ####[facility] [address] [place], [address] CBC W/Diff, Automatedon 09-1 0-2024 Absolute Neut Normal 2.0-7.7 [facility] Comment on above: Result Comment: Canc elled via OM: Order cancelled - Patient discharged Performed By: #### L 500.2500, L100.0100 ####[facility] [address] [place], [address] HCT Normal 37-47 [facility] Comment on above: Result Comment: Canc elled via OM: Order cancelled - Patient discharged Performed By: #### L 500.2500, L100.0100 ####[facility] [address] [place], [address] HGB Normal 12.0-15.0 [facility] Comment on above: Result Comment: Canc elled via OM: Order cancelled - Patient discharged Performed By: #### L 500.2500, L100.0100 ####[facility] [address] [place], [address] MCH Normal 27.0-32.0 [facility] Comment on above: Result Comment: Canc elled via OM: Order cancelled - Patient discharged Performed By: #### L 500.2500, L100.0100 ####[facility] [address] [place], [address] MCHC Normal 32-36 [facility] Comment on above: Result Comment: Canc elled via OM: Order cancelled - Patient discharged Performed By: #### L 500.2500, L100.0100 ####[facility] [address] [place], [address] MCV Normal 81-99 [facility] Comment on above: Result Comment: Canc elled via OM: Order cancelled - Patient discharged Performed By: #### L 500.2500, L100.0100 ####[facility] [address] [place], [address] NEUT% Normal 47-70 [facility] Comment on above: Result Comment: Canc elled via OM: Order cancelled - Patient discharged Performed By: #### L 500.2500, L100.0100 ####[facility] [address], [address] PLT Normal 150-450 [facility] Comment on above: Result Comment: Canc elled via OM: Order cancelled - Patient discharged Performed By: #### L 500.2500, L100.0100 ####[facility] [address] [place], [address] RBC Normal 4.2-5.4 [facility] Comment on above: Result Comment: Canc elled via OM: Order cancelled - Patient discharged Performed By: #### L 500.2500, L100.0100 ####[facility] [address] [place], [address] RDW CV Normal 11.6-14.6 [facility] Comment on above: Result Comment: Canc elled via OM: Order cancelled - Patient discharged Performed By: #### L 500.2500, L100.0100 ####[facility] [address] [place], [address] RDW SD Normal 35.1-43.9 [facility] Comment on above: Result Comment: Canc elled via OM: Order cancelled - Patient discharged Performed By: #### L 500.2500, L100.0100 ####[facility] [address] [place], [address] WBC Normal 4.4-11.0 [facility] Comment on above: Result Comment: Canc elled via OM: Order cancelled - Patient discharged Performed By: #### L 500.2500, L100.0100 ####[facility] [address] [place], [address] Absolute lymphocyte countOrd ered By: Linda Marte on 03-08-2025 Lymphocytes Auto (Unsp spec) [#/Vol] 0.93 10*3/uL 0.83-4.51 [facility] Absolute neutrophil countOrd ered By: Linda Marte on 03-08-2025 Neutrophils (Bld) [#/Vol] 3.4 10*3/uL 2.0-7.7 [facility] Anion gap in Serum or Plasma Ordered By: Linda Marte on 03-08-2025 Anion gap [Moles/Vol] 10 mmol/L 5-15 [facility] Automated lymphocyte count a s percentage of total leukocytesOrdered By: Linda Marte on 03-08-2025 Lymphocytes/100 WBC Auto (Unsp spec) 19.7 % 19-41 [facility] BUN/creatinine ratioOrdered By: Linda Marte on 03-08-2025 Urea nitrogen/Creatinine [Mass ratio] 10.3 mg/mg 10- [facility] Basic Metabolic Profile (BMP )on 03-08-2025 BUN/CRE 10.3 RATIO Normal -20 [facility] Comment on above: Performed By: #### L 100.0100, L500.2500 ####[facility] [address], [address] Calcium [Mass/Vol] 8.4 mg/dL Normal 7.6-11.0 [facility] Comment on above: Performed By: #### L 100.0100, L500.2500 ####[facility] [address] [place], [address] Chloride [Moles/Vol] 106 mmol/L Normal 98-108 [facility] Comment on above: Performed By: #### L 100.0100, L500.2500 ####[facility] [address] [place], [address] CO2 [Moles/Vol] 24.0 mmol/L Normal 21.0-32.0 [facility] Comment on above: Performed By: #### L 100.0100, L500.2500 ####[facility] [address] [place], [address] Creatinine [Mass/Vol] 0.60 mg/dL Low 0.70-1.20 [facility] Comment on above: Performed By: #### L 100.0100, L500.2500 ####[facility] [address] [place], [address] ECRCL 53.34 ml/min Normal 50-250 [facility] Comment on above: Performed By: #### L 100.0100, L500.2500 ####[facility] [address] [place], [address] GAP 10 Normal 5-15 [facility] Comment on above: Performed By: #### L 100.0100, L500.2500 ####[facility] [address] [place], [address] GFR/1.73 sq M.predicted among non-blacks MDRD (S/P/Bld) [Vol rate/Area] 90 mL/min/{1.73_m2} Normal >60 [facility] Comment on above: Result Comment: mL/m in/1.73m2 CKD-EPI Creatinine Equation (2020) Performed By: #### L 100.0100, L500.2500 ####[facility] [address] [place], [address] Glucose [Mass/Vol] 172 mg/dL High 70-99 [facility] Comment on above: Performed By: #### L 100.0100, L500.2500 ####[facility] [address] [place], [address] Potassium [Moles/Vol] 3.2 mmol/L Low 3.3-5.1 [facility] Comment on above: Performed By: #### L 100.0100, L500.2500 ####[facility] [address] [place], [address] Sodium [Moles/Vol] 140 mmol/L Normal 133-145 [facility] Comment on above: Performed By: #### L 100.0100, L500.2500 ####[facility] [address] [place], [address] Urea nitrogen [Mass/Vol] 6 mg/dL Normal 4-19 [facility] Comment on above: Performed By: #### L 100.0100, L500.2500 ####[facility] [address] [place], [address] Basophil percentageOrdered B y: Linda Marte on 03-08-2025 Basophils/100 WBC (Bld) 0.4 % 0-1 [facility] Bedside Glucoseon 03-08-2025 FINGERSTICK GLU 170 mg/dL High 74-106 [facility] Comment on above: Result Comment: DANIEL RAWLS OF PATIENT CARE PER NURSING PROTOCOL Performed By: #### L 501.080 ####[facility] [address] [place], [address] CBC W/Diff, Automatedon Absolute Lymph 0.93 X10 3/uL Normal 0.83-4.51 [facility] Comment on above: Performed By: #### L 100.0100, L500.2500 ####[facility] [address] [place], [address] Absolute Neut 3.4 X10 3/uL Normal 2.0-7.7 [facility] Comment on above: Performed By: #### L 100.0100, L500.2500 ####[facility] [address] [place], [address] Basophils/100 WBC (Bld) 0.4 % Normal 0-1 [facility] Comment on above: Performed By: #### L 100.0100, L500.2500 ####[facility] [address] [place], [address] Eosinophils/100 WBC (Bld) 1.3 % Normal 0-5 [facility] Comment on above: Performed By: #### L 100.0100, L500.2500 ####[facility] [address] [place], [address] Erythrocyte distribution width (RBC) [Ratio] 13.7 % Normal 11.6-14.6 [facility] Comment on above: Performed By: #### L 100.0100, L500.2500 ####[facility] [address] [place], [address] Hematocrit (Bld) [Volume fraction] 26.8 % Low 37-47 [facility] Comment on above: Performed By: #### L 100.0100, L500.2500 ####[facility] [address] [place], [address] Hemoglobin (Bld) [Mass/Vol] 8.6 g/dL Low 12.0-15.0 [facility] Comment on above: Performed By: #### L 100.0100, L500.2500 ####[facility] [address] [place], [address] IG% 1.900 High 0.0-0.9 [facility] Comment on above: Result Comment: IG% - Immature Granulocytes (promyelocytes, myelocytes andmetamyelocytes) > 1% indicates that a LEFT SHIFT is Present. Performed By: #### L 100.0100, L500.2500 ####[facility] [address] [place], [address] Lymphocytes/100 WBC (Bld) 19.7 % Normal 19-41 [facility] Comment on above: Performed By: #### L 100.0100, L500.2500 ####[facility] [address] [place], [address] MCH (RBC) [Entitic mass] 30.7 pg Normal 27.0-32.0 [facility] Comment on above: Performed By: #### L 100.0100, L500.2500 ####[facility] [address] [place], [address] MCHC (RBC) [Mass/Vol] 32.1 g/dL Normal 32-36 [facility] Comment on above: Performed By: #### L 100.0100, L500.2500 ####[facility] [address] [place], [address] MCV (RBC) [Entitic vol] 95.7 fL Normal 81-[address] [facility] Comment on above: Performed By: #### L 100.0100, L500.2500 ####[facility] [address] [place], [address] Monocytes/100 WBC (Bld) 5.7 % Normal 0-[address] [facility] Comment on above: Performed By: #### L 100.0100, L500.2500 ####[facility] [address] [place], [address] Neutrophils/100 WBC (Bld) 71.0 % High 47-70 [facility] Comment on above: Performed By: #### L 100.0100, L500.2500 ####[facility] [address] [place], [address] Nucleated RBC (Bld) [#/Vol] 0 10*3/uL Normal 0-5 [facility] Comment on above: Performed By: #### L 100.0100, L500.2500 ####[facility] [address] [place], [address] Platelet mean volume (Bld) [Entitic vol] 10.4 fL Normal 6.2-12.0 [facility] Comment on above: Performed By: #### L 100.0100, L500.2500 ####[facility] [address] [place], [address] Platelets (Bld) [#/Vol] 149 10*3/uL Low 150-450 [facility] Comment on above: Performed By: #### L 100.0100, L500.2500 ####[facility] [address] [place], [address] RBC (Bld) [#/Vol] 2.80 10*6/uL Low 4.2-5.4 [facility] Comment on above: Performed By: #### L 100.0100, L500.2500 ####[facility] [address] [place], [address] RDW SD 48.3 fl High 35.1-43.9 [facility] Comment on above: Performed By: #### L 100.0100, L500.2500 ####[facility] [address] [place], [address] WBC (Bld) [#/Vol] 4.7 10*3/uL Normal 4.4-11.0 [facility] Comment on above: Performed By: #### L 100.0100, L500.2500 ####[facility] [address] [place], [address] Carbon dioxide, total [Moles /volume] in Central venous bloodOrdered By: Linda Marte on 03-08-2025 CO2 [Moles/Vol] 24.0 mmol/L 21.0-32.0 [facility] Chloride assayOrdered By: Tiffani Marte on 03-08-2025 Chloride [Moles/Vol] 106 mmol/L 98-108 [facility] Eosinophil percentageOrdered By: Linda Marte on 03-08-2025 Eosinophils/100 WBC (Bld) 1.3 % 0-5 [facility] Erythrocyte distribution wid th ratioOrdered By: Lindakobi Marte on 03-08-2025 Erythrocyte distribution width (RBC) [Ratio] 13.7 % 11.6-14.6 [facility] Erythrocyte distribution wid th standard deviationOrdered By: Linda Marte on 03-08-2025 Erythrocyte distribution width (RBC) [Ratio] 48.3 fl High 35.1-43.9 [facility] Glomerular filtration rate ( GFR) estimation/1.73 sq m using serum, plasma, or whole bOrdered By: Linda Marte on 03-08-2025 GFR/1.73 sq M.predicted among non-blacks MDRD (S/P/Bld) [Vol rate/Area] 90 mL/min/{1.73_m2} >60 [facility] Comment on above: mL/min/1.73m2 CKD-EP I Creatinine Equation (2020) [facility] deOrdered By: Carl Couch on 03-08-2025 Glucose [Mass/Vol] 170 mg/dL High 74-106 [facility] Comment on above: MANAGEMENT OF PATIEN T CARE PER NURSING PROTOCOL Hematocrit Auto (Bld) [Volum e fraction]Ordered By: Lindakobi Marte on 03-08-2025 Hematocrit (Bld) [Volume fraction] 26.8 % Low 37-47 [facility] Hemoglobin measurementOrdere d By: Linda Marte on 03-08-2025 Hemoglobin (Bld) [Mass/Vol] 8.6 g/dL Low 12.0-15.0 [facility] Immature granulocytes/100 WB C Auto (Bld)Ordered By: Linda Marte on 03-08-2025 Immature granulocytes/100 WBC (Bld) 1.900 % High 0.0-0.9 [facility] Comment on above: IG% - Immature Granu locytes (promyelocytes, myelocytes and metamyelocytes) > 1% indicates that a LEFT SHIFT is Present. MCV (mean corpuscular volume ) determinationOrdered By: Linda Marte on 03-08-2025 MCV (RBC) [Entitic vol] 95.7 fL 81-99 [facility] Mean corpuscular hemoglobin (MCH) determinationOrdered By: Linda Marte 03-08-2025 MCH (RBC) [Entitic mass] 30.7 pg 27.0-32.0 [facility] Mean corpuscular hemoglobin concentration (MCHC) determinationOrdered By: Linda Marte on 03-08-2025 MCHC (RBC) [Mass/Vol] 32.1 g/dL 32-36 [facility] Mean platelet volume determi nationOrdered By: Linda Marte on 03-08-2025 Platelet mean volume (Bld) [Entitic vol] 10.4 fL 6.2-12.0 [facility] Monocyte percentageOrdered B y: Linda Marte on 03-08-2025 Monocytes/100 WBC (Bld) 5.7 % 0-10 [facility] Neutrophil percentageOrdered By: Linda Marte on 03-08-2025 Neutrophils/100 WBC (Bld) 71.0 % High 47-70 [facility] Nucleated red blood cell per centageOrdered By: Linda Marte on 03-08-2025 Nucleated RBC/100 WBC (Bld) [Ratio] 0 % 0-5 [facility] Platelet countOrdered By: Tiffani Marte on 03-08-2025 Platelets (Bld) [#/Vol] 149 10*3/uL Low 150-450 [facility] Potassium measurement (mass/ volume)Ordered By: Linda Marte on 03-08-2025 Potassium (Unsp spec) [Mass/Vol] 3.2 mmol/L Low 3.3-5.1 [facility] RBC Auto (Bld) [#/Vol]Ordere d By: Linda Marte on 03-08-2025 RBC (Bld) [#/Vol] 2.80 10*6/uL Low 4.2-5.4 [facility] Serum creatinine measurement (mass/volume)Ordered By: Linda Marte on 03-08-2025 Creatinine [Mass/Vol] 0.60 mg/dL Low 0.70-1.20 [facility] Serum glucose measurement (m ass/volume)Ordered By: Linda Marte on 03-08-2025 Glucose [Mass/Vol] 172 mg/dL High 70-99 [facility] Serum or plasma calcium sonu urement (mass/volume)Ordered By: Linda Marte on 03-08-2025 Calcium [Mass/Vol] 8.4 mg/dL 7.6-11.0 [facility] Serum or plasma urea nitroge n measurement (mass/volume)Ordered By: Lindakobi Marte on 03-08-2025 Urea nitrogen [Mass/Vol] 6 mg/dL 4-19 [facility] Sodium levelOrdered By: Lindakobi Marte on 03-08-2025 Sodium [Moles/Vol] 140 mmol/L 133-145 [facility] Trough vancomycin levelOrder ed By: Lindakobi Marte on 03-08-2025 Vancomycin trough [Mass/Vol] 13.0 ug/mL 5.0-15.0 [facility] Comment on above: Recommended goal tro ugh ranges are generally 10-15 mcg/ml for less severe/complicated infections such as cellulitis or UTI and 15-20 mcg/ml for more severe/complicated infections such as bacteremia/sepsis, osteomyelitis, pneumonia or meningitis. Goal trough ranges should take into account indication, patient-specific factors and organism MEGAN.VANCOMYCIN STANDARED DRUG THERAPY TROUGH LEVEL: 5.0 - 15.0 mg/L VANCOMYCIN HIGH INTENSITY THERAPY TROUGH LEVEL: 15.0 - 20.0 mg/L High Intensity therapy recommended for serious lifethreatening infections include:- Zmbaggzssd-Crrhwnhhlhoy-Yineohplc (Ventilator/Healtcare Associated)-Sepsis PLEASE CONTACT PHARMACY SERVICES (#2149) FOR INTERPRETATIONOF RESULTS. Vancomycin, Trough Levelon 0 03-08-2025 VANCO, TROUGH 13.0 ug/mL Normal 5.0-15.0 [facility] Comment on above: Order Comment: Comme nts: Trough to be drawn 30 mins prior to scheduled [id number] Result Comment: Jerzy mmended goal trough ranges are generally 10-15 mcg/mlfor less severe/complicated infections such as cellulitisor UTI and 15-20 mcg/ml for more severe/complicatedinfections such as bacteremia/sepsis, osteomyelitis,pneumonia or meningitis. Goal trough ranges should takeinto account indication, patient-specific factors andorganism MEGAN.VANCOMYCIN STANDARED DRUG THERAPY TROUGH LEVEL: 5.0 - 15.0 mg/LVANCOMYCIN HIGH INTENSITY THERAPY TROUGH LEVEL: 15.0 - 20.0 mg/LHigh Intensity therapy recommended for serious lifethreatening infections include:- Ogubtcusxi-Ddfxhmduoimx-Gfjcxkngg (Ventilator/Healtcare Associated)-SepsisPLEASE CONTACT PHARMACY SERVICES (#9141) FOR INTERPRETATIONOF RESULTS. Performed By: #### L 501.8820 ####[facility] [address] [place], [address] White blood cell (WBC) count Ordered By: Linda Marte on 03-08-2025 WBC (Bld) [#/Vol] 4.7 10*3/uL 4.4-11.0 [facility] Basic Metabolic Profile (BMP )on 03-07-2025 BUN/CRE 16.6 RATIO Normal 10-20 [facility] Comment on above: Performed By: #### L 100.0100, L500.2500 ####[facility] [address] [place], [address] Calcium [Mass/Vol] 8.5 mg/dL Normal 7.6-11.0 [facility] Comment on above: Performed By: #### L 100.0100, L500.2500 ####[facility] [address] [place], [address] Chloride [Moles/Vol] 108 mmol/L Normal 98-108 [facility] Comment on above: Performed By: #### L 100.0100, L500.2500 ####[facility] [address] [place], [address] CO2 [Moles/Vol] 22.5 mmol/L Normal 21.0-32.0 [facility] Comment on above: Performed By: #### L 100.0100, L500.2500 ####[facility] [address] [place], [address] Creatinine [Mass/Vol] 0.65 mg/dL Low 0.70-1.20 [facility] Comment on above: Performed By: #### L 100.0100, L500.2500 ####[facility] [address] [place], [address] ECRCL 53.82 ml/min Normal 50-250 [facility] Comment on above: Performed By: #### L 100.0100, L500.2500 ####[facility] [address] [place], [address] GAP 9 Normal 5-15 [facility] Comment on above: Performed By: #### L 100.0100, L500.2500 ####[facility] [address] [place], [address] GFR/1.73 sq M.predicted among non-blacks MDRD (S/P/Bld) [Vol rate/Area] 88 mL/min/{1.73_m2} Normal >60 [facility] Comment on above: Result Comment: mL/m in/1.73m2 CKD-EPI Creatinine Equation (2020) Performed By: #### L 100.0100, L500.2500 ####[facility] [address] [place], [address] Glucose [Mass/Vol] 179 mg/dL High 70-99 [facility] Comment on above: Performed By: #### L 100.0100, L500.2500 ####[facility] [address] [place], [address] Potassium [Moles/Vol] 3.7 mmol/L Normal 3.3-5.1 [facility] Comment on above: Performed By: #### L 100.0100, L500.2500 ####[facility] [address] [place], [address] Sodium [Moles/Vol] 139 mmol/L Normal 133-145 [facility] Comment on above: Performed By: #### L 100.0100, L500.2500 ####[facility] [address] [place], [address] Urea nitrogen [Mass/Vol] 11 mg/dL Normal 4-19 [facility] Comment on above: Performed By: #### L 100.0100, L500.2500 ####[facility] [address] [place], [address] Bedside Glucoseon 03-07-2025 FINGERSTICK GLU 166 mg/dL High 74-106 [facility] Comment on above: Result Comment: DANIEL GEMENT OF PATIENT CARE PER NURSING PROTOCOL Performed By: #### L 501.080 ####[facility] [address] [place], [address] FINGERSTICK GLU 204 mg/dL High 74-106 [facility] Comment on above: Result Comment: DANIEL GEMENT OF PATIENT CARE PER NURSING PROTOCOL Performed By: #### L 501.080 ####[facility] [address] [place], [address] FINGERSTICK GLU 167 mg/dL High -106 [facility] Comment on above: Result Comment: DANIEL GEMENT OF PATIENT CARE PER NURSING PROTOCOL Performed By: #### L 501.080 ####[facility] [address] [place], [address] FINGERSTICK GLU 165 mg/dL High -106 [facility] Comment on above: Result Comment: DANIEL GEMENT OF PATIENT CARE PER NURSING PROTOCOL Performed By: #### L 501.080 ####[facility] [address] [place], [address] CBC W/Diff, Automatedon PLT EST ADEQUATE Normal ADEQ [facility] Comment on above: Performed By: #### L 100.0100, L500.2500 ####[facility] [address] [place], [address] PLT MORPH CLUMPED Normal [facility] Comment on above: Performed By: #### L 100.0100, L500.2500 ####[facility] [address] [place], [address] Consultation - Infectious Dx on 03-07-2025 Consultation - Infectious Dx Normal [facility] Electrocardiogram reportOrde red By: Sinan Gaviria on 03-07-2025 EKG study [facility] [address] [place] [address] 12 Lead EKG 03/03/25 1412 MR#: [id number] Acct: [id number] Name: STEVE VIEIRA Rep #:[id number] : [id number] From: Sinan bustos MD Attending Dr: Dr. Carl Couch DO Status: ADM IN Ordering Dr: Frieda Laurent MD Date: 10/22 Location: [facility] Sex: F C Admitted: 03/03/25 Test Reason : KB Blood Pressure : */* mmHG Vent. 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 Carl Couch DO; Dr. Frieda Laurent MD; Dr. Peter Ellis MD ~ Signed [facility] Other Phone: Platelet estimateOrdered By: Linda Marte on 03-07-2025 Platelets LM Ql (Bld) ADEQUATE ADEQ [facility] Platelet morphologyOrdered B y: Linda Marte on 03-07-2025 Platelet morphology finding Nom (Bld) CLUMPED [facility] Basic Metabolic Profile (BMP )on 03-06-2025 BUN/CRE 21.1 RATIO High 10-20 [facility] Comment on above: Performed By: #### L 100.0100, L500.2500 ####[facility] [address] [place], [address] Calcium [Mass/Vol] 8.4 mg/dL Normal 7.6-11.0 [facility] Comment on above: Performed By: #### L 100.0100, L500.2500 ####[facility] [address] [place], [address] Chloride [Moles/Vol] 109 mmol/L High 98-108 [facility] Comment on above: Performed By: #### L 100.0100, L500.2500 ####[facility] [address] [place], [address] CO2 [Moles/Vol] 20.7 mmol/L Low 21.0-32.0 [facility] Comment on above: Performed By: #### L 100.0100, L500.2500 ####[facility] [address] [place], [address] Creatinine [Mass/Vol] 0.68 mg/dL Low 0.70-1.20 [facility] Comment on above: Performed By: #### L 100.0100, L500.2500 ####[facility] [address] [place], [address] ECRCL 53.79 ml/min Normal 50-250 [facility] Comment on above: Performed By: #### L 100.0100, L500.2500 ####[facility] [address] [place], [address] GAP 8 Normal 5-15 [facility] Comment on above: Performed By: #### L 100.0100, L500.2500 ####[facility] [address] [place], [address] GFR/1.73 sq M.predicted among non-blacks MDRD (S/P/Bld) [Vol rate/Area] 87 mL/min/{1.73_m2} Normal >60 [facility] Comment on above: Result Comment: mL/m in/1.73m2 CKD-EPI Creatinine Equation (2020) Performed By: #### L 100.0100, L500.2500 ####[facility] [address] [place], [address] Glucose [Mass/Vol] 180 mg/dL High 70-99 [facility] Comment on above: Performed By: #### L 100.0100, L500.2500 ####[facility] [address] [place], [address] Potassium [Moles/Vol] 3.6 mmol/L Normal 3.3-5.1 [facility] Comment on above: Performed By: #### L 100.0100, L500.2500 ####[facility] [address] [place], [address] Sodium [Moles/Vol] 138 mmol/L Normal 133-145 [facility] Comment on above: Performed By: #### L 100.0100, L500.2500 ####[facility] [address] [place], [address] Urea nitrogen [Mass/Vol] 14 mg/dL Normal 4-19 [facility] Comment on above: Performed By: #### L 100.0100, L500.2500 ####[facility] [address] [place], [address] Bedside Glucoseon 03-06-2025 FINGERSTICK GLU 189 mg/dL High 74-106 [facility] Comment on above: Result Comment: DANIEL RAWLS OF PATIENT CARE PER NURSING PROTOCOL Performed By: #### L 501.080 ####[facility] [address] [place], [address] FINGERSTICK GLU 159 mg/dL High 74-106 [facility] Comment on above: Result Comment: DANIEL GEMENT OF PATIENT CARE PER NURSING PROTOCOL Performed By: #### L 501.080 ####[facility] [address] [place], [address] FINGERSTICK GLU 204 mg/dL High 74-106 [facility] Comment on above: Result Comment: DANIEL GEMENT OF PATIENT CARE PER NURSING PROTOCOL Performed By: #### L 501.080 ####[facility] [address] [place], [address] FINGERSTICK GLU 164 mg/dL High 74-106 [facility] Comment on above: Result Comment: DANIEL GEMENT OF PATIENT CARE PER NURSING PROTOCOL Performed By: #### L 501.080 ####[facility] [address] [place], [address] CBC W/Diff, Automatedon 09-0 7-2025 Absolute Lymph 0.79 X10 3/uL Low 0.83-4.51 [facility] Comment on above: Performed By: #### L 100.0100, L500.2500 ####[facility] [address] [place], [address] Absolute Neut 3.2 X10 3/uL Normal 2.0-7.7 [facility] Comment on above: Performed By: #### L 100.0100, L500.2500 ####[facility] [address] [place], [address] Basophils/100 WBC (Bld) 0.2 % Normal 0-1 [facility] Comment on above: Performed By: #### L 100.0100, L500.2500 ####[facility] [address] [place], [address] Eosinophils/100 WBC (Bld) 1.6 % Normal 0-5 [facility] Comment on above: Performed By: #### L 100.0100, L500.2500 ####[facility] [address] [place], [address] Erythrocyte distribution width (RBC) [Ratio] 14.2 % Normal 11.6-14.6 [facility] Comment on above: Performed By: #### L 100.0100, L500.2500 ####[facility] [address] [place], [address] Hematocrit (Bld) [Volume fraction] 24.4 % Low 37-47 [facility] Comment on above: Performed By: #### L 100.0100, L500.2500 ####[facility] [address] [place], [address] Hemoglobin (Bld) [Mass/Vol] 7.7 g/dL Low 12.0-15.0 [facility] Comment on above: Performed By: #### L 100.0100, L500.2500 ####[facility] [address] [place], [address] IG% 0.700 Normal 0.0-0.9 [facility] Comment on above: Result Comment: IG% - Immature Granulocytes (promyelocytes, myelocytes andmetamyelocytes) > 1% indicates that a LEFT SHIFT is Present. Performed By: #### L 100.0100, L500.2500 ####[facility] [address] [place], [address] Lymphocytes/100 WBC (Bld) 18.2 % Low 19-41 [facility] Comment on above: Performed By: #### L 100.0100, L500.2500 ####[facility] [address] [place], [address] MCH (RBC) [Entitic mass] 31.0 pg Normal 27.0-32.0 [facility] Comment on above: Performed By: #### L 100.0100, L500.2500 ####[facility] [address] [place], [address] MCHC (RBC) [Mass/Vol] 31.6 g/dL Low 32-36 [facility] Comment on above: Performed By: #### L 100.0100, L500.2500 ####[facility] [address] [place], [address] MCV (RBC) [Entitic vol] 98.4 fL Normal 81-[address] [facility] Comment on above: Performed By: #### L 100.0100, L500.2500 ####[facility] [address] [place], [address] Monocytes/100 WBC (Bld) 6.2 % Normal 0-[address] [facility] Comment on above: Performed By: #### L 100.0100, L500.2500 ####[facility] [address] [place], [address] Neutrophils/100 WBC (Bld) 73.1 % High 47-70 [facility] Comment on above: Performed By: #### L 100.0100, L500.2500 ####[facility] [address] [place], [address] Nucleated RBC (Bld) [#/Vol] 0 10*3/uL Normal 0-5 [facility] Comment on above: Performed By: #### L 100.0100, L500.2500 ####[facility] [address] [place], [address] Platelet mean volume (Bld) [Entitic vol] 10.9 fL Normal 6.2-12.0 [facility] Comment on above: Performed By: #### L 100.0100, L500.2500 ####[facility] [address] [place], [address] Platelets (Bld) [#/Vol] 145 10*3/uL Low 150-450 [facility] Comment on above: Performed By: #### L 100.0100, L500.2500 ####[facility] [address] [place], [address] RBC (Bld) [#/Vol] 2.48 10*6/uL Low 4.2-5.4 [facility] Comment on above: Performed By: #### L 100.0100, L500.2500 ####[facility] [address] [place], [address] RDW SD 51.4 fl High 35.1-43.9 [facility] Comment on above: Performed By: #### L 100.0100, L500.2500 ####[facility] [address] [place], [address] WBC (Bld) [#/Vol] 4.3 10*3/uL Low 4.4-11.0 [facility] Comment on above: Performed By: #### L 100.0100, L500.2500 ####[facility] [address] [place], [address] Culture, Blood (WB)on 2024 CUB Normal [facility] Comment on above: Performed By: #### L 503.6005, M200.1000, L100.0100, L500.4050 ####[facility] [address] [place], [address] Ferritinon 03-06-2025 Ferritin [Mass/Vol] 310 ng/mL Normal 22-378 [facility] Comment on above: Performed By: #### L 503.6030, L503.6550 ####[facility] [address] [place], [address] Iron measurement (mass/mass) Ordered By: Linda Marte on 03-06-2025 Iron (Unsp spec) [Mass/Mass] 51 ug/dL 50-170 [facility] Iron+Iron Binding Capacityon 03-06-2025 TIBC 147 ug/dL Low 250-450 [facility] Comment on above: Performed By: #### L 503.6030, L503.6550 ####[facility] [address] [place], [place], [address] No Panel InformationOrdered By: Linda Marte on 03-06-2025 Unsaturated Iron Binding Capacity 95 ug/dL Low 228-428 [facility] Respiratory Cultureon 2024 RESPC Normal [facility] Comment on above: Performed By: #### M 100.2000, M100.2400 ####[facility] [address] [place], [place], [address] Serum or plasma ferritin barbara surement (mass/volume)Ordered By: Linda Marte on 03-06-2025 Ferritin [Mass/Vol] 310 ng/mL 22-378 [facility] Serum or plasma iron saturat ion measurement (mass fraction)Ordered By: Linda Marte on 03-06-2025 Iron saturation [Mass fraction] 35.0 % 13-59 [facility] Comment on above: Previous reported re sult: 35.0 %Edited by: KEVIN on 03/06/25:1124 Urine Cultureon 03-06-2025 URC Normal [facility] Comment on above: Performed By: #### L 400.0001, M100.2200, M100.678 ####[facility] [address] [place], [address] Vancomycin, Trough Levelon 0 03-06-2025 VANCO, TROUGH 11.0 ug/mL Normal 5.0-15.0 [facility] Comment on above: Order Comment: Comme nts: Trough to be drawn 30 mins prior to scheduled dose Result Comment: Jerzy mmended goal trough ranges are generally 10-15 mcg/mlfor less severe/complicated infections such as cellulitisor UTI and 15-20 mcg/ml for more severe/complicatedinfections such as bacteremia/sepsis, osteomyelitis,pneumonia or meningitis. Goal trough ranges should takeinto account indication, patient-specific factors andorganism MEGAN.VANCOMYCIN STANDARED DRUG THERAPY TROUGH LEVEL: 5.0 - 15.0 mg/LVANCOMYCIN HIGH INTENSITY THERAPY TROUGH LEVEL: 15.0 - 20.0 mg/LHigh Intensity therapy recommended for serious lifethreatening infections include:- Mdsmkeoraj-Lbkwftcnjvom-Vvmlwcabh (Ventilator/Healtcare Associated)-SepsisPLEASE CONTACT PHARMACY SERVICES (#8760) FOR INTERPRETATIONOF RESULTS. Performed By: #### L 501.8820 ####[facility] [address] [place], [address] Basic Metabolic Profile (BMP )on 03-05-2025 BUN/CRE 20.7 RATIO High 10-20 [facility] Comment on above: Performed By: #### L 100.0100, L500.2500 ####[facility] [address] [place], [address] Calcium [Mass/Vol] 8.0 mg/dL Normal 7.6-11.0 [facility] Comment on above: Performed By: #### L 100.0100, L500.2500 ####[facility] [address] [place], [address] Chloride [Moles/Vol] 110 mmol/L High 98-108 [facility] Comment on above: Performed By: #### L 100.0100, L500.2500 ####[facility] [address] [place], [address] CO2 [Moles/Vol] 20.8 mmol/L Low 21.0-32.0 [facility] Comment on above: Performed By: #### L 100.0100, L500.2500 ####[facility] [address] [place], [address] Creatinine [Mass/Vol] 0.89 mg/dL Normal 0.70-1.20 [facility] Comment on above: Performed By: #### L 100.0100, L500.2500 ####[facility] [address] [place], [address] ECRCL 48.16 ml/min Low 50-250 [facility] Comment on above: Performed By: #### L 100.0100, L500.2500 ####[facility] [address] [place], [address] GAP 9 Normal 5-15 [facility] Comment on above: Performed By: #### L 100.0100, L500.2500 ####[facility] [address] [place], [address] GFR/1.73 sq M.predicted among non-blacks MDRD (S/P/Bld) [Vol rate/Area] 65 mL/min/{1.73_m2} Normal >60 [facility] Comment on above: Result Comment: mL/m in/1.73m2 CKD-EPI Creatinine Equation (2020) Performed By: #### L 100.0100, L500.2500 ####[facility] [address] [place], [address] Glucose [Mass/Vol] 158 mg/dL High 70-99 [facility] Comment on above: Performed By: #### L 100.0100, L500.2500 ####[facility] [address] [place], [address] Potassium [Moles/Vol] 3.5 mmol/L Normal 3.3-5.1 [facility] Comment on above: Performed By: #### L 100.0100, L500.2500 ####[facility] [address] [place], [address] Sodium [Moles/Vol] 140 mmol/L Normal 133-145 [facility] Comment on above: Performed By: #### L 100.0100, L500.2500 ####[facility] [address] [place], [address] Urea nitrogen [Mass/Vol] 18 mg/dL Normal 4-19 [facility] Comment on above: Performed By: #### L 100.0100, L500.2500 ####[facility] [address] [place], [address] Bedside Glucoseon 03-05-2025 FINGERSTICK GLU 224 mg/dL High -106 [facility] Comment on above: Result Comment: DANIEL GEMENT OF PATIENT CARE PER NURSING PROTOCOL Performed By: #### L 501.080 ####[facility] [address] [place], [address] FINGERSTICK GLU 179 mg/dL High -106 [facility] Comment on above: Result Comment: DANIEL GEMENT OF PATIENT CARE PER NURSING PROTOCOL Performed By: #### L 501.080 ####[facility] [address] [place], [address] FINGERSTICK GLU 210 mg/dL High [address] [place] [address] Comment on above: Result Comment: DANIEL GEMENT OF PATIENT CARE PER NURSING PROTOCOL Performed By: #### L 501.080 ####[facility] [address] [place], [address] FINGERSTICK GLU 141 mg/dL High [facility]106 [facility] Comment on above: Result Comment: DANIEL GEMENT OF PATIENT CARE PER NURSING PROTOCOL Performed By: #### L 501.080 ####[facility] [address] [place], [address] FINGERSTICK GLU 149 mg/dL High [address] [place] [address] Comment on above: Result Comment: DANIEL GEMENT OF PATIENT CARE PER NURSING PROTOCOL Performed By: #### L 501.080 ####[facility] [address] [place], [address] Bilirubin directOrdered By: Linda Marte on 03-05-2025 Bilirubin.direct [Mass/Vol] 0.71 mg/dL High 0.00-0.30 [facility] Bilirubin, totalOrdered By: Linda Marte on 03-05-2025 Bilirubin [Mass/Vol] 0.94 mg/dL 0.00-1.30 [facility] CBC W/Diff, Automatedon 09-0 6-2024 Absolute Lymph 0.75 X10 3/uL Low 0.83-4.51 [facility] Comment on above: Performed By: #### L 100.0100, L500.2500 ####[facility] [address] [place], [address] Absolute Neut 6.2 X10 3/uL Normal 2.0-7.7 [facility] Comment on above: Performed By: #### L 100.0100, L500.2500 ####[facility] [address] [place], [address] Basophils/100 WBC (Bld) 0.1 % Normal 0-1 [facility] Comment on above: Performed By: #### L 100.0100, L500.2500 ####[facility] [address] [place], [address] Eosinophils/100 WBC (Bld) 0.9 % Normal 0-5 [facility] Comment on above: Performed By: #### L 100.0100, L500.2500 ####[facility] [address] [place], [address] Erythrocyte distribution width (RBC) [Ratio] 14.4 % Normal 11.6-14.6 [facility] Comment on above: Performed By: #### L 100.0100, L500.2500 ####[facility] [address] [place], [address] Hematocrit (Bld) [Volume fraction] 24.7 % Low 37-47 [facility] Comment on above: Performed By: #### L 100.0100, L500.2500 ####[facility] [address] [place], [address] Hemoglobin (Bld) [Mass/Vol] 7.7 g/dL Low 12.0-15.0 [facility] Comment on above: Performed By: #### L 100.0100, L500.2500 ####[facility] [address] [place], [address] IG% 0.500 Normal 0.0-0.9 [facility] Comment on above: Result Comment: IG% - Immature Granulocytes (promyelocytes, myelocytes andmetamyelocytes) > 1% indicates that a LEFT SHIFT is Present. Performed By: #### L 100.0100, L500.2500 ####[facility] [address] [place], [address] Lymphocytes/100 WBC (Bld) 9.8 % Low 19-41 [facility] Comment on above: Performed By: #### L 100.0100, L500.2500 ####[facility] [address] [place], [address] MCH (RBC) [Entitic mass] 30.6 pg Normal 27.0-32.0 [facility] Comment on above: Performed By: #### L 100.0100, L500.2500 ####[facility] [address] [place], [address] MCHC (RBC) [Mass/Vol] 31.2 g/dL Low 32-36 [facility] Comment on above: Performed By: #### L 100.0100, L500.2500 ####[facility] [address] [place], [address] MCV (RBC) [Entitic vol] 98.0 fL Normal 81-99 [facility] Comment on above: Performed By: #### L 100.0100, L500.2500 ####[facility] [address] [place], [address] Monocytes/100 WBC (Bld) 8.3 % Normal 0-10 [facility] Comment on above: Performed By: #### L 100.0100, L500.2500 ####[facility] [address] [place], [address] Neutrophils/100 WBC (Bld) 80.4 % High 47-70 [facility] Comment on above: Performed By: #### L 100.0100, L500.2500 ####[facility] [address] [place], [address] Nucleated RBC (Bld) [#/Vol] 0 10*3/uL Normal 0-5 [facility] Comment on above: Performed By: #### L 100.0100, L500.2500 ####[facility] [address] [place], [address] Platelet mean volume (Bld) [Entitic vol] 11.1 fL Normal 6.2-12.0 [facility] Comment on above: Performed By: #### L 100.0100, L500.2500 ####[facility] [address] [place], [address] Platelets (Bld) [#/Vol] 134 10*3/uL Low 150-450 [facility] Comment on above: Performed By: #### L 100.0100, L500.2500 ####[facility] [address] [place], [address] RBC (Bld) [#/Vol] 2.52 10*6/uL Low 4.2-5.4 [facility] Comment on above: Performed By: #### L 100.0100, L500.2500 ####[facility] [address] [place], [address] RDW SD 51.4 fl High 35.1-43.9 [facility] Comment on above: Performed By: #### L 100.0100, L500.2500 ####[facility] [address] [place], [address] WBC (Bld) [#/Vol] 7.7 10*3/uL Normal 4.4-11.0 [facility] Comment on above: Performed By: #### L 100.0100, L500.2500 ####[facility] [address] [place], [place], [id number] Hepatitis B Surface Antibody on 03-05-2025 HEP B Surf Ab Non-Reactive Normal [facility] Comment on above: Result Comment: <8.5 mIU/mL: Non-Reactive8.5<= x <11.5 mIU/mL: Indeterminate>=11.5 mIU/mL: Reactive Non Reactive: Inconsistent with immunity less than <10 mIU/mL Reactive: Consistent with immunity greater than or equal to 10 mIU/mL Performed By: #### L 3890.6301, L3890.6202, L3890.6102 ####[facility] [address] [place], [address] Hepatitis C Antibodyon 03-05 Hepatitis C Ab Non-Reactive Normal Nonreactive [facility] Comment on above: Order Comment: Reaso n for Exam: transaminitis Result Comment: Reac tive: Presumptive evidence of antibodies to HCV. FollowC recommendations for supplemental testing.Non-Reactive: Antibodies to HCV were not detected; does notexclude the possibility of exposure to HCVReactive Results are presumptive evidence of antibodies toHCV. Follow CDC recommendations for supplemental testing.Order confirmation testing: HCV Quant by PCR testing -HCVPCR #[id number] Non Reactive: < 0.8 Equivocal: >/= 0.8 to < 1.0 Reactive: >/= 1.0The CDC requires that a reactive/equivocal HCV antibodyresult be sent out for confirmation. HCV Quant by PCRtesting. Performed By: #### L 3890.6301, L3890.6202, L3890.6102 ####[facility] [address] [place], [place], [address] L3890.6102on 03-05-2025 HEP B Surf Ag Non-Reactive Normal Nonreactive [facility] Comment on above: Order Comment: Reaso n for Exam: transaminitis Result Comment: Reac tive: Presumptive evidence of HBV. Repeatedly reactivesamples must be confirmed using a neutralization test([employer]csys HBsAg Confirmatory Test)Non-Reactive: HBsAg not detected; does not exclude thepossibility of exposure to HBV Performed By: #### L 3890.6301, L3890.6202, L3890.6102 ####[facility] [address] [place], [place], [id number] Laboratory - Chemistry and C hemistry - challengeOrdered By: Linda Marte on 03-05-2025 AST [Catalytic activity/Vol] 101 U/L High <32 [facility] Laboratory - Microbiology an d Antimicrobial susceptibilityOrdered By: Linda Marte on 03-05-2025 HBV surface Ag Ql (S) Non-Reactive Nonreactive [facility] Comment on above: Reactive: Presumptiv e evidence of HBV. Repeatedly reactive samples must be confirmed using a neutralization test (Elecsys HBsAg Confirmatory Test)Non-Reactive: HBsAg not detected; does not exclude the possibility of exposure to HBV Lipid Profileon 03-05-2025 CHOL Normal <=200 [facility] Comment on above: Result Comment: Suhas elled via OM: MD Ordered Performed By: #### L 500.4100 ####[facility] [address] [place], [address] CHOL:HDL Normal [facility] Comment on above: Result Comment: Suhas elled via OM: MD Ordered Performed By: #### L 500.4100 ####[facility] [address] [place], [address] CLDL Normal [facility] Comment on above: Result Comment: Suhas elled via OM: MD Ordered Performed By: #### L 500.4100 ####[facility] [address] [place], [address] HDL Normal [facility] Comment on above: Result Comment: Suhas elled via OM: MD Ordered Performed By: #### L 500.4100 ####[facility] [address] [place], [address] TRIG Normal [facility] Comment on above: Result Comment: Sukhdeep elled via OM: Ordered Performed By: #### L 500.4100 ####[facility] [address] [place], [address] VLDL Normal 5-40 [facility] Comment on above: Result Comment: Suhas elled via OM: MD Ordered Performed By: #### L 500.4100 ####[facility] [address] [place], [address] Liver Profileon 03-05-2025 Albumin [Mass/Vol] 2.6 g/dL Low 3.4-4.8 [facility] Comment on above: Performed By: #### L 500.3400 ####[facility] [address] [place], [address] ALK PHOS 225 U/L High 35-104 [facility] Comment on above: Performed By: #### L 500.3400 ####[facility] [address] [place], [address] ALT [Catalytic activity/Vol] 44 U/L High <=34 [facility] Comment on above: Performed By: #### L 500.3400 ####[facility] [address] [place], [address] AST [Catalytic activity/Vol] 101 U/L High <=31 [facility] Comment on above: Performed By: #### L 500.3400 ####[facility] [address] [place], [address] Bilirubin [Mass/Vol] 0.94 mg/dL Normal 0.00-1.30 [facility] Comment on above: Performed By: #### L 500.3400 ####[facility] [address] [place], [address] Bilirubin.direct [Mass/Vol] 0.71 mg/dL High 0.00-0.30 [facility] Comment on above: Performed By: #### L 500.3400 ####[facility] [address] [place], [place], [id number] Globulin (S) [Mass/Vol] 3.4 g/dL Normal 2.2-4.[address] [facility] Comment on above: Performed By: #### L 500.3400 ####[facility] [address] [place], [place], [id number] T PROT 6.0 g/dL Normal 5.9-8.4 [facility] Comment on above: Performed By: #### L 500.3400 ####[facility] [address] [place], [address] Serum globulin measurementOr dered By: Linda Marte on 03-05-2025 Globulin (S) [Mass/Vol] 3.4 g/dL 2.2-4.[address] [facility] Serum hepatitis B virus surf anabelle antibody detectionOrdered By: Linda Marte on 03-05-2025 HBV surface Ab Ql (S) Non-Reactive [facility] Comment on above: <8.5 mIU/mL: Non-Rincon ctive8.5<= x <11.5 mIU/mL: Indeterminate>=11.5 mIU/mL: Reactive Non Reactive: Inconsistent with immunity less than <10 mIU/mL Reactive: Consistent with immunity greater than or equal to 10 mIU/mL Serum or plasma alanine potts otransferase (ALT) measurementOrdered By: Linda Marte on 03-05-2025 ALT [Catalytic activity/Vol] 44 U/L High <35 [facility] Serum or plasma albumin sonu urement (mass/volume)Ordered By: Linda Marte on 03-05-2025 Albumin [Mass/Vol] 2.6 g/dL Low 3.4-4.8 [facility] Serum or plasma alkaline dwain sphatase measurementOrdered By: Linda Marte on 03-05-2025 ALP [Catalytic activity/Vol] 225 U/L High 35-104 [facility] Total proteinOrdered By: Mayte kobi Lewisjosé on 03-05-2025 Protein [Mass/Vol] 6.0 g/dL 5.9-8.4 [facility] Bedside Glucoseon 03-04-2025 FINGERSTICK GLU 207 mg/dL High 74-106 [facility] Comment on above: Result Comment: DANIEL GEMENT OF PATIENT CARE PER NURSING PROTOCOL Performed By: #### L 501.080 ####[facility] [address] [place], [address] FINGERSTICK GLU 196 mg/dL High 74-106 [facility] Comment on above: Result Comment: DANIEL GEMENT OF PATIENT CARE PER NURSING PROTOCOL Performed By: #### L 501.080 ####[facility] [address] [place], [address] FINGERSTICK GLU 171 mg/dL High 74-106 [facility] Comment on above: Result Comment: DANIEL GEMENT OF PATIENT CARE PER NURSING PROTOCOL Performed By: #### L 501.080 ####[facility] [address] [place], [address] FINGERSTICK GLU 183 mg/dL High 74-106 [facility] Comment on above: Result Comment: DANIEL GEMENT OF PATIENT CARE PER NURSING PROTOCOL Performed By: #### L 501.080 ####[facility] [address] [place], [address] CBC W/Diff, Automatedon Absolute Lymph 0.37 X10 3/uL Low 0.83-4.51 [facility] Comment on above: Performed By: #### L 500.4050, L300.3900, L100.0100 ####[facility] [address] [place], [address] Absolute Neut 18.4 X10 3/uL High 2.0-7.7 [facility] Comment on above: Performed By: #### L 500.4050, L300.3900, L100.0100 ####[facility] [address] [place], [address] Basophils/100 WBC (Bld) 0.1 % Normal 0-1 [facility] Comment on above: Performed By: #### L 500.4050, L300.3900, L100.0100 ####[facility] [address] [place], [address] Eosinophils/100 WBC (Bld) 0.0 % Normal 0-5 [facility] Comment on above: Performed By: #### L 500.4050, L300.3900, L100.0100 ####[facility] [address] [place], [address] Erythrocyte distribution width (RBC) [Ratio] 14.5 % Normal 11.6-14.6 [facility] Comment on above: Performed By: #### L 500.4050, L300.3900, L100.0100 ####[facility] [address] [place], [address] Hematocrit (Bld) [Volume fraction] 28.8 % Low 37-47 [facility] Comment on above: Performed By: #### L 500.4050, L300.3900, L100.0100 ####[facility] [address] [place], [address] Hemoglobin (Bld) [Mass/Vol] 9.0 g/dL Low 12.0-15.0 [facility] Comment on above: Performed By: #### L 500.4050, L300.3900, L100.0100 ####[facility] [address] [place], [address] IG% 1.000 High 0.0-0.9 [facility] Comment on above: Result Comment: IG% - Immature Granulocytes (promyelocytes, myelocytes andmetamyelocytes) > 1% indicates that a LEFT SHIFT is Present. Performed By: #### L 500.4050, L300.3900, L100.0100 ####[facility] [address] [place], [address] Lymphocytes/100 WBC (Bld) 1.8 % Low 19-41 [facility] Comment on above: Performed By: #### L 500.4050, L300.3900, L100.0100 ####[facility] [address] [place], [address] MCH (RBC) [Entitic mass] 31.0 pg Normal 27.0-32.0 [facility] Comment on above: Performed By: #### L 500.4050, L300.3900, L100.0100 ####[facility] [address] [place], [address] MCHC (RBC) [Mass/Vol] 31.3 g/dL Low 32-36 [facility] Comment on above: Performed By: #### L 500.4050, L300.3900, L100.0100 ####[facility] [address] [place], [address] MCV (RBC) [Entitic vol] 99.3 fL High 81-99 [facility] Comment on above: Performed By: #### L 500.4050, L300.3900, L100.0100 ####[facility] [address] [place], [address] Monocytes/100 WBC (Bld) 5.2 % Normal 0-[address] [facility] Comment on above: Performed By: #### L 500.4050, L300.3900, L100.0100 ####[facility] [address] [place], [address] Neutrophils/100 WBC (Bld) 91.9 % High 47-70 [facility] Comment on above: Performed By: #### L 500.4050, L300.3900, L100.0100 ####[facility] [address] [place], [address] Nucleated RBC (Bld) [#/Vol] 0 10*3/uL Normal 0-5 [facility] Comment on above: Performed By: #### L 500.4050, L300.3900, L100.0100 ####[facility] [address] [place], [address] Platelet mean volume (Bld) [Entitic vol] 11.1 fL Normal 6.2-12.0 [facility] Comment on above: Performed By: #### L 500.4050, L300.3900, L100.0100 ####[facility] [address] [place], [address] Platelets (Bld) [#/Vol] 169 10*3/uL Normal 150-450 [facility] Comment on above: Performed By: #### L 500.4050, L300.3900, L100.0100 ####[facility] [address] [place], [address] RBC (Bld) [#/Vol] 2.90 10*6/uL Low 4.2-5.4 [facility] Comment on above: Performed By: #### L 500.4050, L300.3900, L100.0100 ####[facility] [address] [place], [address] RDW SD 52.9 fl High 35.1-43.9 [facility] Comment on above: Performed By: #### L 500.4050, L300.3900, L100.0100 ####[facility] [address] [place], [address] WBC (Bld) [#/Vol] 20.0 10*3/uL High 4.4-11.0 [facility] Comment on above: Performed By: #### L 500.4050, L300.3900, L100.0100 ####[facility] [address] [place], [address] Comprehensive Metabolic Prof toribio 03-04-2025 Albumin [Mass/Vol] 2.7 g/dL Low 3.4-4.8 [facility] Comment on above: Performed By: #### L 500.4050, L300.3900, L100.0100 ####[facility] [address] [place], [address] ALK PHOS 291 U/L High 35-104 [facility] Comment on above: Performed By: #### L 500.4050, L300.3900, L100.0100 ####[facility] [address] [place], [address] ALT [Catalytic activity/Vol] 37 U/L High <=34 [facility] Comment on above: Performed By: #### L 500.4050, L300.3900, L100.0100 ####[facility] [address] [place], [address] AST [Catalytic activity/Vol] 76 U/L High <=31 [facility] Comment on above: Performed By: #### L 500.4050, L300.3900, L100.0100 ####[facility] [address] [place], [address] Bilirubin [Mass/Vol] 1.94 mg/dL High 0.00-1.30 [facility] Comment on above: Performed By: #### L 500.4050, L300.3900, L100.0100 ####[facility] [address] [place], [address] BUN/CRE 17.8 RATIO Normal 10-20 [facility] Comment on above: Performed By: #### L 500.4050, L300.3900, L100.0100 ####[facility] [address] [place], [address] Calcium [Mass/Vol] 7.9 mg/dL Normal 7.6-11.0 [facility] Comment on above: Performed By: #### L 500.4050, L300.3900, L100.0100 ####[facility] [address] [place], [address] Chloride [Moles/Vol] 107 mmol/L Normal 98-108 [facility] Comment on above: Performed By: #### L 500.4050, L300.3900, L100.0100 ####[facility] [address] [place], [address] CO2 [Moles/Vol] 18.7 mmol/L Low 21.0-32.0 [facility] Comment on above: Performed By: #### L 500.4050, L300.3900, L100.0100 ####[facility] [address] [place], [address] Creatinine [Mass/Vol] 1.16 mg/dL Normal 0.70-1.20 [facility] Comment on above: Performed By: #### L 500.4050, L300.3900, L100.0100 ####[facility] [address] [place], [address] ECRCL 36.55 ml/min Low 50-250 [facility] Comment on above: Performed By: #### L 500.4050, L300.3900, L100.0100 ####[facility] [address] [place], [address] GAP 11 Normal 5-15 [facility] Comment on above: Performed By: #### L 500.4050, L300.3900, L100.0100 ####[facility] [address] [place], [address] GFR/1.73 sq M.predicted among non-blacks MDRD (S/P/Bld) [Vol rate/Area] 47 mL/min/{1.73_m2} Low >60 [facility] Comment on above: Result Comment: mL/m in/1.73m2 CKD-EPI Creatinine Equation (2020) Performed By: #### L 500.4050, L300.3900, L100.0100 ####[facility] [address] [place], [address] Globulin (S) [Mass/Vol] 3.7 g/dL Normal 2.2-4.2 [facility] Comment on above: Performed By: #### L 500.4050, L300.3900, L100.0100 ####[facility] [address] [place], [address] Glucose [Mass/Vol] 175 mg/dL High 70-99 [facility] Comment on above: Performed By: #### L 500.4050, L300.3900, L100.0100 ####[facility] [address] [place], [address] Potassium [Moles/Vol] 3.8 mmol/L Normal 3.3-5.1 [facility] Comment on above: Performed By: #### L 500.4050, L300.3900, L100.0100 ####[facility] [address] [place], [address] Sodium [Moles/Vol] 137 mmol/L Normal 133-145 [facility] Comment on above: Performed By: #### L 500.4050, L300.3900, L100.0100 ####[facility] [address] [place], [address] T PROT 6.5 g/dL Normal 5.9-8.4 [facility] Comment on above: Performed By: #### L 500.4050, L300.3900, L100.0100 ####[facility] [address] [place], [address] Urea nitrogen [Mass/Vol] 21 mg/dL High 4-19 [facility] Comment on above: Performed By: #### L 500.4050, L300.3900, L100.0100 ####[facility] [address] [place], [address] Consultation - Intensiviston 03-04-2025 Consultation - Support Services Coordinator Normal [facility] Gram Stainon 03-04-2025 GS Acceptable Specimen? Yes (<25 Epithelial cells per/lpf) Gram Stain Rare Gram positive rods Rare White Blood Cells Rare Epithelial cells Normal [facility] Comment on above: Performed By: #### M 100.2000, M100.2400 ####[facility] [address] [place], [address] International normalized rat io (INR) calculationOrdered By: Desiree Trent on 03-04-2025 INR Coag (Bld) [Relative time] 1.5 {INR} [facility] Prothrombin Time w/INRon INR Coag (PPP) [Relative time] 1.5 {INR} Normal [facility] Comment on above: Performed By: #### L 500.4050, L300.3900, L100.0100 ####[facility] [address] [place], [address] Prothrombin timeOrdered By: Desiree Trent on 03-04-2025 PT Coag (PPP) [Time] 18.4 s High 11.7-14.9 [facility] Comment on above: Performed By: #### L 500.4050, L300.3900, L100.0100 ####[facility] [address] [place], [address] Serum or plasma albumin/glob ulin mass ratioOrdered By: Desiree Trent on 03-04-2025 Albumin/Globulin [Mass ratio] 0.7 {ratio} Low 0.9-2.4 [facility] Comment on above: Performed By: #### L 500.4050, L300.3900, L100.0100 ####[facility] [address] [place], [place], [address] TSH DL <= 0.005 mIU/L QnOrde red By: Mario Dunaway on 03-04-2025 TSH Qn 1.770 uIU/mL 0.300-4.200 [facility] Thyroid Stim Hormone (TSH)on 03-04-2025 TSH 1.770 uIU/mL Normal 0.300-4.200 [facility] Comment on above: Performed By: #### L 501.9557 ####[facility] [address] [place], [place], [address] 12 Lead EKGon 03-03-2025 12 Lead EKG Normal [facility] Abdomen/Pelvis W IV Cont ONL Yon 03-03-2025 Abdomen/Pelvis W IV Cont ONLY Normal [facility] Absolute lymphocyte countOrd ered By: Frieda Laurent on 03-03-2025 Lymphocytes Auto (Unsp spec) [#/Vol] 0.30 10*3/uL Low 0.83-4.51 [facility] Absolute neutrophil countOrd ered By: Frieda Laurent on 03-03-2025 Neutrophils (Bld) [#/Vol] 12.9 10*3/uL High 2.0-7.7 [facility] Anion gap in Serum or Plasma Ordered By: Frieda Laurent on 03-03-2025 Anion gap [Moles/Vol] 12 mmol/L 5-15 [facility] Assessment of wrist artery p atency prior to arterial punctureOrdered By: Frieda Laurent on 03-03-2025 Arterial patency Wrist artery --pre arterial puncture Positive [facility] Automated lymphocyte count a s percentage of total leukocytesOrdered By: Frieda Laurent on 03-03-2025 Lymphocytes/100 WBC Auto (Unsp spec) 2.2 % Low 19-41 [facility] BUN/creatinine ratioOrdered By: Frieda Laurent on 03-03-2025 Urea nitrogen/Creatinine [Mass ratio] 23.4 mg/mg High 10-20 [facility] Basophil percentageOrdered B y: Frieda Laurent on 03-03-2025 Basophils/100 WBC (Bld) 0.4 % 0-1 [facility] Bedside Glucoseon 03-03-2025 FINGERSTICK GLU 134 mg/dL High 74-106 [facility] Comment on above: Result Comment: DANIEL RAWLS OF PATIENT CARE PER NURSING PROTOCOL Performed By: #### L 501.080 ####[facility] [address] [place], [address] Bilirubin Test strip Ql (U)O rdered By: Frieda Laurent on 03-03-2025 Bilirubin Ql (U) Negative Negative [facility] Bilirubin, totalOrdered By: Frieda Laurent on 03-03-2025 Bilirubin [Mass/Vol] 2.53 mg/dL High 0.00-1.30 [facility] Blood Gases by CPSon 025 JAYLYN TEST Positive Normal [facility] Comment on above: Performed By: #### L 9000.0800 ####[facility] [address] [place], [address] Base excess Calc (Bld) [Moles/Vol] 1 mmol/L Normal -2 to +2 [facility] Comment on above: Performed By: #### L 9000.0800 ####[facility] [address] [place], [address] Blood Gas Type ART Normal [facility] Comment on above: Performed By: #### L 9000.0800 ####[facility] [address] [place], [address] CO2 [Moles/Vol] 27 mmol/L Normal [facility] Comment on above: Performed By: #### L 9000.0800 ####[facility] [address] [place], [address] FI02 50.0 Normal [facility] Comment on above: Performed By: #### L 9000.0800 ####[facility] [address] [place], [address] HCO3 (Bld) [Moles/Vol] 25.7 mmol/L Normal 22-26 [facility] Comment on above: Performed By: #### L 9000.0800 ####[facility] [address] [place], [address] Mode AC Normal [facility] Comment on above: Performed By: #### L 9000.0800 ####[facility] [address] [place], [address] O2 Delivery Dev Adult Vent Normal [facility] Comment on above: Performed By: #### L 9000.0800 ####[facility] [address] [place], [address] pCO2 40.1 mmHg Normal 35-45 [facility] Comment on above: Performed By: #### L 9000.0800 ####[facility] [address] [place], [address] PEEP 5 Normal [facility] Comment on above: Performed By: #### L 9000.0800 ####[facility] [address] [place], [address] pH (Bld) 7.42 [pH] Normal 7.35-7.45 [facility] Comment on above: Performed By: #### L 9000.0800 ####[facility] [address] [place], [address] PO2 84 mmHG Normal 75-100 [facility] Comment on above: Performed By: #### L 9000.0800 ####[facility] [address] [place], [address] RR 14 Normal [facility] Comment on above: Performed By: #### L 9000.0800 ####[facility] [address] [place], [address] SITE L Radial Normal [facility] Comment on above: Performed By: #### L 8999.08 ####[facility] [address] [place], [address] SO2 96 Normal 95-99 [facility] Comment on above: Performed By: #### L 8999.0800 ####[facility] [address] [place], [address] Vt 400.0 mL Normal [facility] Comment on above: Performed By: #### L 8999.0800 ####[facility] [address] [place], [address] JAYLYN TEST Positive Normal [facility] Comment on above: Performed By: #### L 8999.08 ####[facility] [address] [place], [address] Base excess Calc (Bld) [Moles/Vol] -2 mmol/L Normal -2 to +2 [facility] Comment on above: Performed By: #### L 8999.08 ####[facility] [address] [place], [address] Blood Gas Type ART Normal [facility] Comment on above: Performed By: #### L 8999.0800 ####[facility] [address] [place], [address] CO2 [Moles/Vol] 23 mmol/L Normal [facility] Comment on above: Performed By: #### L 8999.08 ####[facility] [address] [place], [address] HCO3 (Bld) [Moles/Vol] 21.7 mmol/L Low 22-26 [facility] Comment on above: Performed By: #### L 8999.0800 ####[facility] [address] [place], [address] Mode Not entered Normal [facility] Comment on above: Performed By: #### L 9000.0800 ####[facility] [address] [place], [address] O2 Delivery Dev Cannula Normal [facility] Comment on above: Performed By: #### L 0.0800 ####[facility] [address] [place], [address] pCO2 29.8 mmHg Low 35-45 [facility] Comment on above: Performed By: #### L 9000.0800 ####[facility] [address] [place], [address] pH (Bld) 7.47 [pH] High 7.35-7.45 [facility] Comment on above: Performed By: #### L 9000.0800 ####[facility] [address] [place], [address] PO2 78 mmHG Normal 75-100 [facility] Comment on above: Performed By: #### L 9000.0800 ####[facility] [address] [place], [address] SITE R Radial Normal [facility] Comment on above: Performed By: #### L 0.0800 ####[facility] [address] [place], [address] SO2 96 Normal 95-99 [facility] Comment on above: Performed By: #### L 9000.0800 ####[facility] [address] [place], [address] Blood base excess determinat ionOrdered By: Frieda Laurent on 03-03-2025 Base excess Calc (BldV) [Moles/Vol] 1 mmol/L -2-2 [facility] Blood bicarbonate measuremen tOrdered By: Frieda Laurent on 03-03-2025 HCO3 (Bld) [Moles/Vol] 25.7 mmol/L 22-26 [facility] Blood cultureOrdered By: Namrata Laurent on 03-03-2025 Bacteria identified Cx Nom (Bld) ESBL Escherichia coli Abnormal [facility] Bacteria identified Cx Nom (Bld) GNR lactose casing in line feeder Abnormal [facility] CBC W/Diff, Automatedon Absolute Lymph 0.30 X10 3/uL Low 0.83-4.51 [facility] Comment on above: Performed By: #### L 503.6005, M200.1000, L100.0100, L500.4050 ####[facility] [address] [place], [address] Absolute Neut 12.9 X10 3/uL High 2.0-7.7 [facility] Comment on above: Performed By: #### L 503.6005, M200.1000, L100.0100, L500.4050 ####[facility] [address] [place], [address] Basophils/100 WBC (Bld) 0.4 % Normal 0-1 [facility] Comment on above: Performed By: #### L 503.6005, M200.1000, L100.0100, L500.4050 ####[facility] [address] [place], [address] Eosinophils/100 WBC (Bld) 0.2 % Normal 0-5 [facility] Comment on above: Performed By: #### L 503.6005, M200.1000, L100.0100, L500.4050 ####[facility] [address] [place], [address] Erythrocyte distribution width (RBC) [Ratio] 14.1 % Normal 11.6-14.6 [facility] Comment on above: Performed By: #### L 503.6005, M200.1000, L100.0100, L500.4050 ####[facility] [address] [place], [address] Hematocrit (Bld) [Volume fraction] 32.8 % Low 37-47 [facility] Comment on above: Performed By: #### L 503.6005, M200.1000, L100.0100, L500.4050 ####[facility] [address] [place], [address] Hemoglobin (Bld) [Mass/Vol] 10.4 g/dL Low 12.0-15.0 [facility] Comment on above: Performed By: #### L 503.6005, M200.1000, L100.0100, L500.4050 ####[facility] [address] [place], [address] IG% 0.500 Normal 0.0-0.9 [facility] Comment on above: Result Comment: IG% - Immature Granulocytes (promyelocytes, myelocytes andmetamyelocytes) > 1% indicates that a LEFT SHIFT is Present. Performed By: #### L 503.6005, M200.1000, L100.0100, L500.4050 ####[facility] [address] [place], [address] Lymphocytes/100 WBC (Bld) 2.2 % Low 19-41 [facility] Comment on above: Performed By: #### L 503.6005, M200.1000, L100.0100, L500.4050 ####[facility] [address] [place], [address] MCH (RBC) [Entitic mass] 30.7 pg Normal 27.0-32.0 [facility] Comment on above: Performed By: #### L 503.6005, M200.1000, L100.0100, L500.4050 ####[facility] [address] [place], [address] MCHC (RBC) [Mass/Vol] 31.7 g/dL Low 32-36 [facility] Comment on above: Performed By: #### L 503.6005, M200.1000, L100.0100, L500.4050 ####[facility] [address] [place], [address] MCV (RBC) [Entitic vol] 96.8 fL Normal 81-99 [facility] Comment on above: Performed By: #### L 503.6005, M200.1000, L100.0100, L500.4050 ####[facility] [address] [place], [address] Monocytes/100 WBC (Bld) 1.3 % Normal 0-[address] [facility] Comment on above: Performed By: #### L 503.6005, M200.1000, L100.0100, L500.4050 ####[facility] [address] [place], [address] Neutrophils/100 WBC (Bld) 95.4 % High 47-70 [facility] Comment on above: Performed By: #### L 503.6005, M200.1000, L100.0100, L500.4050 ####[facility] [address] [place], [address] Nucleated RBC (Bld) [#/Vol] 0 10*3/uL Normal 0-5 [facility] Comment on above: Performed By: #### L 503.6005, M200.1000, L100.0100, L500.4050 ####[facility] [address] [place], [address] Platelet mean volume (Bld) [Entitic vol] 10.9 fL Normal 6.2-12.0 [facility] Comment on above: Performed By: #### L 503.6005, M200.1000, L100.0100, L500.4050 ####[facility] [address] [place], [address] Platelets (Bld) [#/Vol] 191 10*3/uL Normal 150-450 [facility] Comment on above: Performed By: #### L 503.6005, M200.1000, L100.0100, L500.4050 ####[facility] [address] [place], [address] RBC (Bld) [#/Vol] 3.39 10*6/uL Low 4.2-5.4 [facility] Comment on above: Performed By: #### L 503.6005, M200.1000, L100.0100, L500.4050 ####[facility] [address] [place], [address] RDW SD 49.9 fl High 35.1-43.9 [facility] Comment on above: Performed By: #### L 503.6005, M200.1000, L100.0100, L500.4050 ####[facility] [address] [place], [address] WBC (Bld) [#/Vol] 13.5 10*3/uL High 4.4-11.0 [facility] Comment on above: Performed By: #### L 503.6005, M200.1000, L100.0100, L500.4050 ####[facility] [address] [place], [address] CPK Total, Creatine Kinaseon 03-03-2025 CPK TOTAL 48 U/L Normal 24-195 [facility] Comment on above: Order Comment: Comme nts: DC when propofol is d/c'd Performed By: #### L 501.3620, L501.5000 ####[facility] [address] [place], [address] Carbon dioxide, total [Moles /volume] in Central venous bloodOrdered By: Frieda Laurent on 03-03-2025 CO2 [Moles/Vol] 22.6 mmol/L 21.0-32.0 [facility] Chest 1 View (Portable)on Chest 1 View (Portable) Normal [facility] Chloride assayOrdered By: Carlo Laurent on 03-03-2025 Chloride [Moles/Vol] 101 mmol/L 98-108 [facility] Comprehensive Metabolic Prof ilon 03-03-2025 Albumin [Mass/Vol] 3.7 g/dL Normal 3.4-4.8 [facility] Comment on above: Performed By: #### L 503.6005, M200.1000, L100.0100, L500.4050 ####[facility] [address] [place], [address] Albumin/Globulin [Mass ratio] 0.9 {ratio} Normal 0.9-2.4 [facility] Comment on above: Performed By: #### L 503.6005, M200.1000, L100.0100, L500.4050 ####[facility] [address] [place], [address] ALK PHOS 378 U/L High 35-104 [facility] Comment on above: Performed By: #### L 503.6005, M200.1000, L100.0100, L500.4050 ####[facility] [address] [place], [address] ALT [Catalytic activity/Vol] 39 U/L High <=34 [facility] Comment on above: Performed By: #### L 503.6005, M200.1000, L100.0100, L500.4050 ####[facility] [address] [place], [address] AST [Catalytic activity/Vol] 77 U/L High <=31 [facility] Comment on above: Performed By: #### L 503.6005, M200.1000, L100.0100, L500.4050 ####[facility] [address] [place], [address] Bilirubin [Mass/Vol] 2.53 mg/dL High 0.00-1.30 [facility] Comment on above: Performed By: #### L 503.6005, M200.1000, L100.0100, L500.4050 ####[facility] [address] [place], [address] BUN/CRE 23.4 RATIO High 10-20 [facility] Comment on above: Performed By: #### L 503.6005, M200.1000, L100.0100, L500.4050 ####[facility] [address], [address] Calcium [Mass/Vol] 9.0 mg/dL Normal 7.6-11.0 [facility] Comment on above: Performed By: #### L 503.6005, M200.1000, L100.0100, L500.4050 ####[facility] [address] [place], [address] Chloride [Moles/Vol] 101 mmol/L Normal 98-108 [facility] Comment on above: Performed By: #### L 503.6005, M200.1000, L100.0100, L500.4050 ####[facility] [address], [address] CO2 [Moles/Vol] 22.6 mmol/L Normal 21.0-32.0 [facility] Comment on above: Performed By: #### L 503.6005, M200.1000, L100.0100, L500.4050 ####[facility] [address] [place], [address] Creatinine [Mass/Vol] 0.96 mg/dL Normal 0.70-1.20 [facility] Comment on above: Performed By: #### L 503.6005, M200.1000, L100.0100, L500.4050 ####[facility] [address] [place], [address] ECRCL 44.36 ml/min Low 50-250 [facility] Comment on above: Performed By: #### L 503.6005, M200.1000, L100.0100, L500.4050 ####[facility] [address] [place], [address] GAP 12 Normal 5-15 [facility] Comment on above: Performed By: #### L 503.6005, M200.1000, L100.0100, L500.4050 ####[facility] [address] [place], [address] GFR/1.73 sq M.predicted among non-blacks MDRD (S/P/Bld) [Vol rate/Area] 60 mL/min/{1.73_m2} Normal >60 [facility] Comment on above: Result Comment: mL/m in/1.73m2 CKD-EPI Creatinine Equation (2020) Performed By: #### L 503.6005, M200.1000, L100.0100, L500.4050 ####[facility] [address] [place], [address] Globulin (S) [Mass/Vol] 4.1 g/dL Normal 2.2-4.[address] [facility] Comment on above: Performed By: #### L 503.6005, M200.1000, L100.0100, L500.4050 ####[facility] [address] [place], [address] Glucose [Mass/Vol] 214 mg/dL High 70-99 [facility] Comment on above: Performed By: #### L 503.6005, M200.1000, L100.0100, L500.4050 ####[facility] [address] [place], [address] Potassium [Moles/Vol] 3.9 mmol/L Normal 3.3-5.1 [facility] Comment on above: Performed By: #### L 503.6005, M200.1000, L100.0100, L500.4050 ####[facility] [address] [place], [address] Sodium [Moles/Vol] 135 mmol/L Normal 133-145 [facility] Comment on above: Performed By: #### L 503.6005, M200.1000, L100.0100, L500.4050 ####[facility] [address] [place], [address] T PROT 7.9 g/dL Normal 5.9-8.4 [facility] Comment on above: Performed By: #### L 503.6005, M200.1000, L100.0100, L500.4050 ####[facility] [address] [place], [address] Urea nitrogen [Mass/Vol] 22 mg/dL High 4-19 [facility] Comment on above: Performed By: #### L 503.6005, M200.1000, L100.0100, L500.4050 ####[facility] [address] [place], [address] Emergency Department Summary on 03-03-2025 Emergency Department Summary Normal [facility] Eosinophil percentageOrdered By: Frieda Laurent on 03-03-2025 Eosinophils/100 WBC (Bld) 0.2 % 0-5 [facility] Erythrocyte distribution wid th ratioOrdered By: Frieda Laurent on 03-03-2025 Erythrocyte distribution width (RBC) [Ratio] 14.1 % 11.6-14.6 [facility] Erythrocyte distribution wid th standard deviationOrdered By: Frieda Laurent on 03-03-2025 Erythrocyte distribution width (RBC) [Ratio] 49.9 fl High 35.1-43.9 [facility] Glomerular filtration rate ( GFR) estimation/1.73 sq m using serum, plasma, or whole bOrdered By: Frieda Laurent on 03-03-2025 GFR/1.73 sq M.predicted among non-blacks MDRD (S/P/Bld) [Vol rate/Area] 60 mL/min/{1.73_m2} >60 [facility] Comment on above: mL/min/1.73m2 CKD-EP I Creatinine Equation (2020) Gram stainOrdered By: Frieda Laurent on 03-03-2025 Microscopic observation Gram stain Nom (Unsp spec) [facility] H AND P Exam - Hospitaliston 03-03-2025 H&P Exam - Hospitalist Normal [facility] Hematocrit Auto (Bld) [Volum e fraction]Ordered By: Frieda Laurent on 03-03-2025 Hematocrit (Bld) [Volume fraction] 32.8 % Low 37-47 [facility] Hemoglobin measurementOrdere d By: Frieda Laurent on 03-03-2025 Hemoglobin (Bld) [Mass/Vol] 10.4 g/dL Low 12.0-15.0 [facility] Immature granulocytes/100 WB C Auto (Bld)Ordered By: Frieda Laurent on 03-03-2025 Immature granulocytes/100 WBC (Bld) 0.500 % 0.0-0.9 [facility] Comment on above: IG% - Immature Granu locytes (promyelocytes, myelocytes and metamyelocytes) > 1% indicates that a LEFT SHIFT is Present. Influenza virus A and B and SARS-CoV-2 (COVID-19) and Respiratory syncytial virus RNAOrdered By: Frieda Laurent on 03-03-2025 SARS-CoV-2 (COVID-19) RNA LUBA+probe Ql (Unsp spec) [facility] Ketones Test strip Ql (U)Ord ered By: Frieda Laurent on 03-03-2025 Ketones Ql (U) Negative Negative [facility] L501.4021on 03-03-2025 Trop T High Sen 49 ng/L High <=14 [facility] Comment on above: Performed By: #### L 501.4024 ####[facility] [address] [place], [place], [address] Laboratory - Chemistry and C hemistry - challengeOrdered By: Frieda Laurent on 03-03-2025 AST [Catalytic activity/Vol] 77 U/L High <32 [facility] Lactic acid measurementOrder ed By: Frieda Laurent on 03-03-2025 Lactate [Moles/Vol] 3.4 mmol/L Invalid Interpretation Code 0.0-2.0 [facility] Comment on above: Critical Result(s) C alled at: by: JACOB HOLLAND Results read back by same. Order Comment: Y Result Comment: Crit ical Result(s) Called at: by: JACOB HOLLAND??Results readback by same. Performed By: #### L 503.6005, M200.1000, L100.0100, L500.4050 ####[facility] [address] [place], [place], [address] M100.678on 03-03-2025 M100.678 SARS-CoV-2 (COVID 19 ) Negative INFLUENZA A Negative INFLUENZA B Negative RSV PCR Negative Normal [facility] Comment on above: Performed By: #### L 400.0001, M100.2200, M100.678 ####[facility] [address] [place], [place], [id number] MCV (mean corpuscular volume ) determinationOrdered By: Frieda Laurent on 03-03-2025 MCV (RBC) [Entitic vol] 96.8 fL 81-99 [facility] Mean corpuscular hemoglobin (MCH) determinationOrdered By: Frieda Laurent on 03-03-2025 MCH (RBC) [Entitic mass] 30.7 pg 27.0-32.0 [facility] Mean corpuscular hemoglobin concentration (MCHC) determinationOrdered By: Frieda Laurent on 03-03-2025 MCHC (RBC) [Mass/Vol] 31.7 g/dL Low 32-36 [facility] Mean platelet volume determi nationOrdered By: Frieda Laurent on 03-03-2025 Platelet mean volume (Bld) [Entitic vol] 10.9 fL 6.2-12.0 [facility] Measurement, pHOrdered By: Jazmyn Laurent on 03-03-2025 pH (Unsp spec) 7.42 [pH] 7.35-7.45 [facility] Microbial respiratory cultur eOrdered By: Frieda Laurent on 03-03-2025 Microorganism identified Cx Nom (Unsp spec) ESBL Escherichia coli Abnormal [facility] Microorganism identified Cx Nom (Unsp spec) Meth. resistant Staph. aureus Abnormal [facility] Microscopic analysis of urin e for red blood cells (RBC)Ordered By: Frieda Laurent on 03-03-2025 Microscopic analysis of urine for red blood cells (RBC) 0 SEEN /hpf 0-5 [facility] Monocyte percentageOrdered B y: Frieda Laurent on 03-03-2025 Monocytes/100 WBC (Bld) 1.3 % 0-[address] [facility] Mucus LM Ql (Urine sed)Order ed By: Frieda Laurent on 03-03-2025 Mucus Ql (Urine sed) 0 SEEN /hpf [facility] Neutrophil percentageOrdered By: Frieda Laurent on 03-03-2025 Neutrophils/100 WBC (Bld) 95.4 % High 47-70 [facility] Nitrite Test strip Ql (U)Ord ered By: Frieda aLurent on 03-03-2025 Nitrite Ql (U) Positive High Negative [facility] No Panel InformationOrdered By: Frieda Laurent on 03-03-2025 Bedside Blood Gas PEEP 5 [facility] Blood Gas Respiration Rate 14 [facility] Blood Gas Sample Site L Radial [facility] Blood Gas Specimen Type ART [facility] Blood Gas Tidal Volume 400.0 mL [facility] Blood Gas Vent Mode AC [facility] Oxygen Delivery Device Adult Vent [facility] Nucleated red blood cell per centageOrdered By: Frieda Laurent on 03-03-2025 Nucleated RBC/100 WBC (Bld) [Ratio] 0 % 0-5 [facility] Platelet countOrdered By: Carlo Laurent on 03-03-2025 Platelets (Bld) [#/Vol] 191 10*3/uL 150-450 [facility] Potassium measurement (mass/ volume)Ordered By: Frieda Laurent on 03-03-2025 Potassium (Unsp spec) [Mass/Vol] 3.9 mmol/L 3.3-5.1 [facility] Protein Test strip Ql (U)Ord ered By: Frieda Laurent on 03-03-2025 Protein Ql (U) 100 mg/dl High Negative [facility] RBC Auto (Bld) [#/Vol]Ordere d By: Frieda Laurent on 03-03-2025 RBC (Bld) [#/Vol] 3.39 10*6/uL Low 4.2-5.4 [facility] RESPIRATORY PANEL MOLECULARo n 03-03-2025 RP PANEL Normal [facility] Comment on above: Performed By: #### M 100.638 ####[facility] [address] [place], [place], [address] Respiratory pathogens detect ion panel by molecular detection methodOrdered By: Desiree Trent on 03-03-2025 Respiratory pathogens DNA and RNA panel LUBA+probe (Resp) [facility] Serum creatinine measurement (mass/volume)Ordered By: Frieda Laurent on 03-03-2025 Creatinine [Mass/Vol] 0.96 mg/dL 0.70-1.20 [facility] Serum globulin measurementOr dered By: Frieda Laurent on 03-03-2025 Globulin (S) [Mass/Vol] 4.1 g/dL 2.2-4.2 [facility] Serum glucose measurement (m ass/volume)Ordered By: Frieda Laurent on 03-03-2025 Glucose [Mass/Vol] 214 mg/dL High 70-99 [facility] Serum or plasma alanine potts otransferase (ALT) measurementOrdered By: Frieda Laurent on 03-03-2025 ALT [Catalytic activity/Vol] 39 U/L High <35 [facility] Serum or plasma albumin sonu urement (mass/volume)Ordered By: Frieda Laurent on 03-03-2025 Albumin [Mass/Vol] 3.7 g/dL 3.4-4.8 [facility] Serum or plasma albumin/glob ulin mass ratioOrdered By: Frieda Laurent on 03-03-2025 Albumin/Globulin [Mass ratio] 0.9 {ratio} 0.9-2.4 [facility] Serum or plasma alkaline dwain sphatase measurementOrdered By: Frieda Laurent on 03-03-2025 ALP [Catalytic activity/Vol] 378 U/L High 35-104 [facility] Serum or plasma calcium sonu urement (mass/volume)Ordered By: Frieda Laurent on 03-03-2025 Calcium [Mass/Vol] 9.0 mg/dL 7.6-11.0 [facility] Serum or plasma creatine kin ase activityOrdered By: Frieda Laurent on 03-03-2025 CK [Catalytic activity/Vol] 48 U/L 24-195 [facility] Serum or plasma urea nitroge n measurement (mass/volume)Ordered By: Frieda Laurent on 03-03-2025 Urea nitrogen [Mass/Vol] 22 mg/dL High 4-19 [facility] Sodium levelOrdered By: Carl Laurent on 03-03-2025 Sodium [Moles/Vol] 135 mmol/L 133-145 [facility] Squamous epithelial cells de tection in urine sediment by light microscopyOrdered By: Frieda Laurent on 03-03-2025 Epithelial cells.squamous LM Ql (Urine sed) 0 SEEN /hpf 5-10 [facility] Total carbon dioxide measure mentOrdered By: Frieda Laurent on 03-03-2025 CO2 [Moles/Vol] 27 mmol/L [facility] Total proteinOrdered By: Namrata Laurent on 03-03-2025 Protein [Mass/Vol] 7.9 g/dL 5.9-8.4 [facility] Triglycerideson 03-03-2025 Triglyceride [Mass/Vol] 119 mg/dL Normal [facility] Comment on above: Order Comment: Comme nts: DC when propofol is d/c'dDC when propofol is d/c'd Result Comment: The drugs N-Acetylcysteine and Metamizole may falselydepress this assay.Normal range: <150 mg/dLBorderline High: 150-199 mg/dLHigh: 200-499 mg/dLVery High: >500 mg/dL Performed By: #### L 501.3620, L501.5000 ####[facility] [address] [place], [place], [address] Triglycerides measurementOrd ered By: Frieda Laurent on 03-03-2025 Triglyceride [Mass/Vol] 119 mg/dL <199 [facility] Comment on above: The drugs N-Acetylcy steine and Metamizole may falsely depress this assay. Normal range: <150 mg/dLBorderline High: 150-199 mg/dLHigh: 200-499 mg/dLVery High: >500 mg/dL Troponin T HS 2 HRon 025 Trop T High Sen 25 ng/L High <=14 [facility] Comment on above: Performed By: #### L 499.0042 ####[facility] [address] [place], [place], [address] Troponin T HS 4 HRon 025 Trop T High Sen 54 ng/L Invalid Interpretation Code <=14 [facility] Comment on above: Result Comment: Crit ical Result(s) Called GWYCOFF at: 2030 by:KEVIN??Results read back by same. Performed By: #### L 499.0043 ####[facility] [address] [place], [place], [address] Troponin T.cardiac [Mass/vol ume] in Serum or Plasma by High sensitivity methodOrdered By: Frieda Laurent on 03-03-2025 Troponin T.cardiac High sensitivity method [Mass/Vol] 54 ng/L Critically high <14 [facility] Comment on above: Critical Result(s) C alled GWYCOFF at: 2030 by: KEVIN Results read back by same. Troponin T.cardiac High sensitivity method [Mass/Vol] 25 ng/L High <14 [facility] Troponin T.cardiac High sensitivity method [Mass/Vol] 49 ng/L High <14 [facility] Urinalysis, Completeon 03-03 WBC >100 SEEN Normal 0-5 [facility] Comment on above: Order Comment: ANGELY TER SPECIMEN Performed By: #### L 400.0001, M100.2200, M100.678 ####[facility] [address] [place], [address] BACTERIA 0 SEEN Normal None Seen [facility] Comment on above: Order Comment: ANGELY TER SPECIMEN Performed By: #### L 400.0001, M100.2200, M100.678 ####[facility] [address] [place], [address] EPI,SQUAMOUS 0 SEEN Normal 5-10 [facility] Comment on above: Order Comment: ANGELY TER SPECIMEN Performed By: #### L 400.0001, M100.2200, M100.678 ####[facility] [address] [place], [address] Mucus Ql (Urine sed) 0 SEEN Normal [facility] Comment on above: Order Comment: ANGELY TER SPECIMEN Performed By: #### L 400.0001, M100.2200, M100.678 ####[facility] [address] [place], [address] RBC 0 SEEN Normal 0-5 [facility] Comment on above: Order Comment: ANGELY TER SPECIMEN Performed By: #### L 400.0001, M100.2200, M100.678 ####[facility] [address] [place], [address] Urine clarityOrdered By: Namrata Laurent on 03-03-2025 Clarity (U) Sl. Cloudy Clear [facility] Urine color determinationOrd ered By: Frieda Laurent on 03-03-2025 Color (U) Yellow Yellow [facility] Comment on above: Microscopic field is filled. Other elements may be obscured.Previous reported result: Yellow Edited by: JACQUELYN on 03/03/25:1522 AMENDED REPORT 03/03/25 1522 COLOR previously reported as: Yellow Urine cultureOrdered By: Namrata Laurent on 03-03-2025 Bacteria identified Cx Nom (U) ESBL Escherichia coli Abnormal [facility] Urine glucose detectionOrder ed By: Frieda Laurent on 03-03-2025 Glucose Ql (U) Normal mg/dl Normal [facility] Urine leukocyte esterase det ection by dipstickOrdered By: Frieda Laurent on 03-03-2025 Leukocyte esterase Test strip Ql (U) 500 /ul High Negative [facility] Urine pHOrdered By: Frieda duran on 03-03-2025 pH (U) 5.0 [pH] 5.0 - 8.0 [facility] Urine sediment bacteria coun t by microscopy (number/high power field)Ordered By: Frieda Laurent on 03-03-2025 Bacteria LM.HPF (Urine sed) [#/Area] 0 /[HPF] None Seen [facility] Urine specific gravity measu rementOrdered By: Frieda Laurent on 03-03-2025 Specific gravity (U) [Rel density] 1.015 1.002-1.030 [facility] Urine urobilinogen measureme ntOrdered By: Frieda Laurent on 03-03-2025 Urobilinogen Ql (U) 1 mg/dl High Normal [facility] White blood cell (WBC) count Ordered By: Frieda Laurent on 03-03-2025 WBC (Bld) [#/Vol] 13.5 10*3/uL High 4.4-11.0 [facility] White blood cell countOrdere d By: Frieda Laurent on 03-03-2025 White blood cell count >100 SEEN /hpf 0-5 [facility] Anion gap in Serum or Plasma Ordered By: Juve Dejesus on 12-14-2024 Anion gap [Moles/Vol] 9 mmol/L 5-15 [facility] Automated blood erythrocyte countOrdered By: Juve Dejesus on 12-14-2024 RBC (Bld) [#/Vol] 3.35 10*6/uL Low 4.2-5.4 [facility] Comment on above: Performed By: #### L 500.2500, L501.9310, L501.9985, L506.1001, L501.9520, L503.6150, L500.4100, L100.0500 ####[facility] [address] [place], [place], [phone] Automated blood hematocrit ( percentage)Ordered By: Juve Dejesus on 12-14-2024 Hematocrit (Bld) [Volume fraction] 32.9 % Low 37-47 [facility] Comment on above: Performed By: #### L 500.2500, L501.9310, L501.9985, L506.1001, L501.9520, L503.6150, L500.4100, L100.0500 ####[facility] [address] [place], [place], [phone] BUN/creatinine ratioOrdered By: Juve Dejesus on 12-14-2024 Urea nitrogen/Creatinine [Mass ratio] 34.4 mg/mg High 10- [facility] Basic Metabolic Profile (BMP )on 12-14-2024 BUN/CRE 34.4 RATIO High - [facility] Comment on above: Performed By: #### L 500.2500, L501.9310, L501.9985, L506.1001, L501.9520, L503.6150, L500.4100, L100.0500 ####[facility] [address] [place], [place], [phone] GAP 9 Normal 5-15 [facility] Comment on above: Performed By: #### L 500.2500, L501.9310, L501.9985, L506.1001, L501.9520, L503.6150, L500.4100, L100.0500 ####[facility] [address] [place], [place], [address] Potassium [Moles/Vol] 4.0 mmol/L Normal 3.3-5.1 [facility] Comment on above: Performed By: #### L 500.2500, L501.9310, L501.9985, L506.1001, L501.9520, L503.6150, L500.4100, L100.0500 ####[facility] [address] [place], [place], [phone] CBC-Complete Blood Cnt No Di ffon 12-14-2024 RDW SD 47.3 fl High 35.1-43.9 [facility] Comment on above: Performed By: #### L 500.2500, L501.9310, L501.9985, L506.1001, L501.9520, L503.6150, L500.4100, L100.0500 ####[facility] [address] [place], [address] Calculated very low density lipoprotein (VLDL) cholesterol measurementOrdered By: Juve Dejesus on 12-14-2024 Calculated very low density lipoprotein (VLDL) cholesterol measurement 14 mg/dL 5-40 [facility] Carbon dioxide, total [Moles /volume] in Central venous bloodOrdered By: Juve Dejesus on 12-14-2024 CO2 [Moles/Vol] 25.7 mmol/L Normal 21.0-32.0 [facility] Comment on above: Performed By: #### L 500.2500, L501.9310, L501.9985, L506.1001, L501.9520, L503.6150, L500.4100, L100.0500 ####[facility] [address] [place], [place], [phone] Chloride assayOrdered By: Baljit Dejesus on 12-14-2024 Chloride [Moles/Vol] 106 mmol/L Normal 98-108 [facility] Comment on above: Performed By: #### L 500.2500, L501.9310, L501.9985, L506.1001, L501.9520, L503.6150, L500.4100, L100.0500 ####[facility] [address] [place], [address] Erythrocyte distribution wid th ratioOrdered By: Juve Dejesus on 12-14-2024 Erythrocyte distribution width (RBC) [Ratio] 13.2 % Normal 11.6-14.6 [facility] Comment on above: Performed By: #### L 500.2500, L501.9310, L501.9985, L506.1001, L501.9520, L503.6150, L500.4100, L100.0500 ####[facility] [address] [place], [address] Erythrocyte distribution wid th standard deviationOrdered By: Juve Dejesus on 12-14-2024 Erythrocyte distribution width (RBC) [Ratio] 47.3 fl High 35.1-43.9 [facility] Glomerular filtration rate ( GFR) estimation/1.73 sq m using serum, plasma, or whole bOrdered By: Juve Dejesus on 12-14-2024 GFR/1.73 sq M.predicted among non-blacks MDRD (S/P/Bld) [Vol rate/Area] 81 mL/min/{1.73_m2} Normal >60 [facility] Comment on above: mL/min/1.73m2 CKD-EP I Creatinine Equation (2020) Result Comment: mL/m in/1.73m2 CKD-EPI Creatinine Equation (2020) Performed By: #### L 500.2500, L501.9310, L501.9985, L506.1001, L501.9520, L503.6150, L500.4100, L100.0500 ####[facility] [address] [place], [place], [phone] Hemoglobin A1c percentageOrd ered By: Juve Dejesus on 12-14-2024 HbA1c (Bld) [Mass fraction] 8.2 % High <=5.6 [facility] Comment on above: Normal < 5.7 % Predi abetic 5.7 - 6.4 % Diabetic >or= 6.5 % Please note range changes. Result Comment: Norm al < 5.7 % Prediabetic 5.7 - 6.4 % Diabetic >or= 6.5 % Please note range changes. Performed By: #### L 500.2500, L501.9310, L501.9985, L506.1001, L501.9520, L503.6150, L500.4100, L100.0500 ####[facility] [address] [place], [place], [phone] Hemoglobin measurementOrdere d By: Juve Dejesus on 12-14-2024 Hemoglobin (Bld) [Mass/Vol] 10.4 g/dL Low 12.0-15.0 [facility] Comment on above: Performed By: #### L 500.2500, L501.9310, L501.9985, L506.1001, L501.9520, L503.6150, L500.4100, L100.0500 ####[facility] [address] [place], [place], [phone] Ironon 12-14-2024 Iron [Mass/Vol] 54 ug/dL Normal 50-170 [facility] Comment on above: Performed By: #### L 500.2500, L501.9310, L501.9985, L506.1001, L501.9520, L503.6150, L500.4100, L100.0500 ####[facility] [address] [place], [address] Iron measurement (mass/mass) Ordered By: Juve Dejesus on 12-14-2024 Iron (Unsp spec) [Mass/Mass] 54 ug/dL 50-170 [facility] LDL calc ser/plasOrdered By: Juve Dejesus on 12-14-2024 Cholesterol in LDL [Mass/Vol] 63 mg/dL Normal [facility] Comment on above: Ygjmdpzlpu=230-239 m g/dL & Higher Bdrf=732 mg/dL or greater Result Comment: Bord jfuoma=919-801 mg/dL Higher Zjsy=744 mg/dL or greater Performed By: #### L 500.2500, L501.9310, L501.9985, L506.1001, L501.9520, L503.6150, L500.4100, L100.0500 ####[facility] [address] [place], [address] Lipid Profileon 12-14-2024 CHOL:HDL 2.97 Normal [facility] Comment on above: Performed By: #### L 500.2500, L501.9310, L501.9985, L506.1001, L501.9520, L503.6150, L500.4100, L100.0500 ####[facility] [address] [place], [place], [address] Cholesterol in VLDL [Mass/Vol] 14 mg/dL Normal 5-40 [facility] Comment on above: Performed By: #### L 500.2500, L501.9310, L501.9985, L506.1001, L501.9520, L503.6150, L500.4100, L100.0500 ####[facility] [address] [place], [place], [address] MCV (mean corpuscular volume ) determinationOrdered By: Juve Dejesus on 12-14-2024 MCV (RBC) [Entitic vol] 98.2 fL Normal 81-99 [facility] Comment on above: Performed By: #### L 500.2500, L501.9310, L501.9985, L506.1001, L501.9520, L503.6150, L500.4100, L100.0500 ####[facility] [address] [place], [address] Mean corpuscular hemoglobin (MCH) determinationOrdered By: Juve Dejesus on 12-14-2024 MCH (RBC) [Entitic mass] 31.0 pg Normal 27.0-32.0 [facility] Comment on above: Performed By: #### L 500.2500, L501.9310, L501.9985, L506.1001, L501.9520, L503.6150, L500.4100, L100.0500 ####[facility] [address] [place], [address] Mean corpuscular hemoglobin concentration (MCHC) determinationOrdered By: Juve Dejesus on 12-14-2024 MCHC (RBC) [Mass/Vol] 31.6 g/dL Low 32-36 [facility] Comment on above: Performed By: #### L 500.2500, L501.9310, L501.9985, L506.1001, L501.9520, L503.6150, L500.4100, L100.0500 ####[facility] [address] [place], [place], [address] Mean platelet volume determi nationOrdered By: Juve Dejesus on 12-14-2024 Platelet mean volume (Bld) [Entitic vol] 11.7 fL Normal 6.2-12.0 [facility] Comment on above: Performed By: #### L 500.2500, L501.9310, L501.9985, L506.1001, L501.9520, L503.6150, L500.4100, L100.0500 ####[facility] [address] [facility] [address] [place], [place], [phone] Platelet countOrdered By: Baljit Dejesus on 12-14-2024 Platelets (Bld) [#/Vol] 105 10*3/uL Low 150-450 [facility] Comment on above: Performed By: #### L 500.2500, L501.9310, L501.9985, L506.1001, L501.9520, L503.6150, L500.4100, L100.0500 ####[facility] [address] [facility]. [place], [place], [phone] Potassium measurement (mass/ volume)Ordered By: Juve Dejesus on 12-14-2024 Potassium (Unsp spec) [Mass/Vol] 4.0 mmol/L 3.3-5.1 [facility] Screening total cholesterol/ high density lipoprotein (HDL) cholesterol ratioOrdered By: Juve Dejesus on 12-14-2024 Cholesterol.total/Choles terol in HDL [Mass ratio] 2.97 {ratio} [facility] Serum creatinine measurement (mass/volume)Ordered By: Juve Dejesus on 12-14-2024 Creatinine [Mass/Vol] 0.75 mg/dL Normal 0.70-1.20 [facility] Comment on above: Performed By: #### L 500.2500, L501.9310, L501.9985, L506.1001, L501.9520, L503.6150, L500.4100, L100.0500 ####[facility] [address] [place], [place], [phone](126) Serum glucose measurement (m ass/volume)Ordered By: Juve Dejesus on 12-14-2024 Glucose [Mass/Vol] 83 mg/dL Normal 70-99 [facility] Comment on above: Performed By: #### L 500.2500, L501.9310, L501.9985, L506.1001, L501.9520, L503.6150, L500.4100, L100.0500 ####[facility] [address] [facility] [address] [place], [place], [phone]) Serum or plasma calcium sonu urement (mass/volume)Ordered By: Juve Dejesus on 12-14-2024 Calcium [Mass/Vol] 9.3 mg/dL Normal 7.6-11.0 [facility] Comment on above: Performed By: #### L 500.2500, L501.9310, L501.9985, L506.1001, L501.9520, L503.6150, L500.4100, L100.0500 ####[facility] [address] [facility] [place], [place], [phone]) Serum or plasma cholesterol in HDL measurement (mass/volume)Ordered By: Juve Dejesus on 12-14-2024 Cholesterol in HDL [Mass/Vol] 39 mg/dL Low [facility] Comment on above: National Cholesterol Education Program (NCEP) guidelines:<40 mg/dL: Low HDL-cholesterol (major risk factor for CHD)>= 60 mg/dL: High HDL-cholesterol (negative risk factor for CHD)HDL-cholesterol is affected by a number of factors, e.g. smoking, exercise, hormones, sex and age. Result Comment: Zhane onal Cholesterol Education Program (NCEP) guidelines:<40 mg/dL: Low HDL-cholesterol (major risk factor for CHD)>= 60 mg/dL: High HDL-cholesterol (negative risk factor forCHD)HDL-cholesterol is affected by a number of factors, e.g.smoking, exercise, hormones, sex and age. Performed By: #### L 500.2500, L501.9310, L501.9985, L506.1001, L501.9520, L503.6150, L500.4100, L100.0500 ####[facility] [address] [place], [place], [phone](454) Serum or plasma cholesterol measurement (mass/volume)Ordered By: Juve Dejesus on 12-14-2024 Cholesterol [Mass/Vol] 116 mg/dL Normal <=200 [facility] Comment on above: Cholesterol level, D esirable <200 mg/dLBorderline high cholesterol 200-239 mg/dLHigh cholesterol >=240 mg/dLRecommendations of the NCEP Adult Treatment Panel for the following risk-cutoff thresholds for the [place] population. Result Comment: Chol esterol level, Desirable <200 mg/dLBorderline high cholesterol 200-239 mg/dLHigh cholesterol >=240 mg/dLRecommendations of the NCEP Adult Treatment Panel for thefollowing risk-cutoff thresholds for the [place] Americanpopulation. Performed By: #### L 500.2500, L501.9310, L501.9985, L506.1001, L501.9520, L503.6150, L500.4100, L100.0500 ####[facility] [address], [address] Serum or plasma urea nitroge n measurement (mass/volume)Ordered By: Juve Dejesus on 12-14-2024 Urea nitrogen [Mass/Vol] 26 mg/dL High 4-19 [facility] Comment on above: Performed By: #### L 500.2500, L501.9310, L501.9985, L506.1001, L501.9520, L503.6150, L500.4100, L100.0500 ####[facility] [address] [facility]. [place], [place], [phone] Sodium levelOrdered By: Samy Dejesus on 12-14-2024 Sodium [Moles/Vol] 141 mmol/L Normal 133-145 [facility] Comment on above: Performed By: #### L 500.2500, L501.9310, L501.9985, L506.1001, L501.9520, L503.6150, L500.4100, L100.0500 ####[facility] [address] [place], [place], [phone] TSH DL <= 0.005 mIU/L QnOrde red By: Juve Dejesus on 12-14-2024 TSH Qn 3.320 uIU/mL 0.300-4.200 [facility] Thyroid Stim Hormone (TSH)on 12-14-2024 TSH 3.320 uIU/mL Normal 0.300-4.200 [facility] Comment on above: Performed By: #### L 500.2500, L501.9310, L501.9985, L506.1001, L501.9520, L503.6150, L500.4100, L100.0500 ####[facility] [address] [place], [place], [phone] ThyroxineOrdered By: Juve gordon on 12-14-2024 T4 [Mass/Vol] 8.3 ug/dL Normal 4.8-13.9 [facility] Comment on above: Performed By: #### L 500.2500, L501.9310, L501.9985, L506.1001, L501.9520, L503.6150, L500.4100, L100.0500 ####[facility] [address] [place], [place], [phone] Triglycerides measurementOrd ered By: Juve Dejesus on 12-14-2024 Triglyceride [Mass/Vol] 72 mg/dL Normal [facility] Comment on above: The drugs N-Acetylcy steine and Metamizole may falsely depress this assay. Normal range: <150 mg/dLBorderline High: 150-199 mg/dLHigh: 200-499 mg/dLVery High: >500 mg/dL Result Comment: The drugs N-Acetylcysteine and Metamizole may falselydepress this assay.Normal range: <150 mg/dLBorderline High: 150-199 mg/dLHigh: 200-499 mg/dLVery High: >500 mg/dL Performed By: #### L 500.2500, L501.9310, L501.9985, L506.1001, L501.9520, L503.6150, L500.4100, L100.0500 ####[facility] [address] [place], [address] Vitamin D,25 Hydroxyon 12-14 Vitamin D 25-OH 13.7 ng/mL Low -100 [facility] Comment on above: Result Comment: Sobia min D StatusDeficiency: <20 ng/mL (50nmol/L)Insufficiency: 20-30 ng/mL (50-75 nmol/L)Sufficiency: 30-100 ng/mL (75-250 nmol/L)Toxicity: >100 ng/mL (>250 nmol/L) Performed By: #### L 500.2500, L501.9310, L501.9985, L506.1001, L501.9520, L503.6150, L500.4100, L100.0500 ####[facility] [address] [place], [place], [phone] White blood cell (WBC) count Ordered By: Juve Dejesus on 12-14-2024 WBC (Bld) [#/Vol] 3.6 10*3/uL Low 4.4-11.0 [facility] Comment on above: Performed By: #### L 500.2500, L501.9310, L501.9985, L506.1001, L501.9520, L503.6150, L500.4100, L100.0500 ####[facility] [address] [place], [address] Vitamin D,25 Hydroxyon 10-26 Vitamin D 25-OH 16.5 ng/mL Low 30-100 [facility] Comment on above: Result Comment: Sobia min D StatusDeficiency: <20 ng/mL (50nmol/L)Insufficiency: 20-30 ng/mL (50-75 nmol/L)Sufficiency: 30-100 ng/mL (75-250 nmol/L)Toxicity: >100 ng/mL (>250 nmol/L) Performed By: #### L 506.1001 ####[facility] [address] [place], [place], [phone] Hemoglobin A1con 09-21-2024 HbA1c (Bld) [Mass fraction] 7.1 % Normal <=5.6 [facility] Comment on above: Order Comment: 504-1 Performed By: #### L 501.9310, L100.0500, L500.2500, L500.4100, L501.9985, L501.9520 ####[facility] [address] [place], [place], [phone] Anion gap in Serum or Plasma Ordered By: Darcy Elias on 09-20-2024 Anion gap [Moles/Vol] 13 mmol/L 5-15 [facility] BUN/creatinine ratioOrdered By: Darcy Elias on 09-20-2024 Urea nitrogen/Creatinine [Mass ratio] 23.4 mg/mg High 10 [facility] Basic Metabolic Profile (BMP )on 09-20-2024 BUN/CRE 23.4 RATIO High [facility] Comment on above: Order Comment: 504-1 Performed By: #### L 501.9310, L100.0500, L500.2500, L500.4100, L501.9985, L501.9520 ####[facility] [address] [place], [place], [phone] Calcium [Mass/Vol] 9.6 mg/dL Normal 7.6-11.0 [facility] Comment on above: Order Comment: 504-1 Performed By: #### L 501.9310, L100.0500, L500.2500, L500.4100, L501.9985, L501.9520 ####[facility] [address] [place], [address] Chloride [Moles/Vol] 103 mmol/L Normal 98-108 [facility] Comment on above: Order Comment: 504-1 Performed By: #### L 501.9310, L100.0500, L500.2500, L500.4100, L501.9985, L501.9520 ####[facility] [address] [place], [address] CO2 [Moles/Vol] 21.9 mmol/L Normal 21.0-32.0 [facility] Comment on above: Order Comment: 504-1 Performed By: #### L 501.9310, L100.0500, L500.2500, L500.4100, L501.9985, L501.9520 ####[facility] [address] [place], [address] Creatinine [Mass/Vol] 0.78 mg/dL Normal 0.70-1.20 [facility] Comment on above: Order Comment: 504-1 Performed By: #### L 501.9310, L100.0500, L500.2500, L500.4100, L501.9985, L501.9520 ####[facility] [address] [place], [address] GAP 13 Normal 5-15 [facility] Comment on above: Order Comment: 504-1 Performed By: #### L 501.9310, L100.0500, L500.2500, L500.4100, L501.9985, L501.9520 ####[facility] [address] [place], [address] GFR/1.73 sq M.predicted among non-blacks MDRD (S/P/Bld) [Vol rate/Area] 76 mL/min/{1.73_m2} Normal >60 [facility] Comment on above: Order Comment: 504-1 Result Comment: mL/m in/1.73m2 CKD-EPI Creatinine Equation (2020) Performed By: #### L 501.9310, L100.0500, L500.2500, L500.4100, L501.9985, L501.9520 ####[facility] [address], [address] Glucose [Mass/Vol] 229 mg/dL High 70-99 [facility] Comment on above: Order Comment: 504-1 Performed By: #### L 501.9310, L100.0500, L500.2500, L500.4100, L501.9985, L501.9520 ####[facility] [address] [place], [address] Potassium [Moles/Vol] 4.2 mmol/L Normal 3.3-5.1 [facility] Comment on above: Order Comment: 504-1 Performed By: #### L 501.9310, L100.0500, L500.2500, L500.4100, L501.9985, L501.9520 ####[facility] [address] [place], [address] Sodium [Moles/Vol] 138 mmol/L Normal 133-145 [facility] Comment on above: Order Comment: 504-1 Performed By: #### L 501.9310, L100.0500, L500.2500, L500.4100, L501.9985, L501.9520 ####[facility] [address] [place], [address] Urea nitrogen [Mass/Vol] 18 mg/dL Normal 4-19 [facility] Comment on above: Order Comment: 504-1 Performed By: #### L 501.9310, L100.0500, L500.2500, L500.4100, L501.9985, L501.9520 ####[facility] [address] [place], [address] CBC-Complete Blood Cnt No Di ffon 09-20-2024 Erythrocyte distribution width (RBC) [Ratio] 12.9 % Normal 11.6-14.6 [facility] Comment on above: Order Comment: 504-1 Performed By: #### L 501.9310, L100.0500, L500.2500, L500.4100, L501.9985, L501.9520 ####[facility] [place] [address] [place], [address] Hematocrit (Bld) [Volume fraction] 33.2 % Low 37-47 [facility] Comment on above: Order Comment: 504-1 Performed By: #### L 501.9310, L100.0500, L500.2500, L500.4100, L501.9985, L501.9520 ####[facility] [address] [place], [address] Hemoglobin (Bld) [Mass/Vol] 10.6 g/dL Low 12.0-15.0 [facility] Comment on above: Order Comment: 504-1 Performed By: #### L 501.9310, L100.0500, L500.2500, L500.4100, L501.9985, L501.9520 ####[facility] [address] [place], [address] MCH (RBC) [Entitic mass] 31.2 pg Normal 27.0-32.0 [facility] Comment on above: Order Comment: 504-1 Performed By: #### L 501.9310, L100.0500, L500.2500, L500.4100, L501.9985, L501.9520 ####[facility] [address] [place], [address] MCHC (RBC) [Mass/Vol] 31.9 g/dL Low 32-36 [facility] Comment on above: Order Comment: 504-1 Performed By: #### L 501.9310, L100.0500, L500.2500, L500.4100, L501.9985, L501.9520 ####[facility] [address] [place], [address] MCV (RBC) [Entitic vol] 97.6 fL Normal 81-99 [facility] Comment on above: Order Comment: 504-1 Performed By: #### L 501.9310, L100.0500, L500.2500, L500.4100, L501.9985, L501.9520 ####[facility] [address] [place], [address] Platelet mean volume (Bld) [Entitic vol] 11.3 fL Normal 6.2-12.0 [facility] Comment on above: Order Comment: 504-1 Performed By: #### L 501.9310, L100.0500, L500.2500, L500.4100, L501.9985, L501.9520 ####[facility] [address] [place], [address] Platelets (Bld) [#/Vol] 126 10*3/uL Low 150-450 [facility] Comment on above: Order Comment: 504-1 Performed By: #### L 501.9310, L100.0500, L500.2500, L500.4100, L501.9985, L501.9520 ####[facility] [address] [place], [address] RBC (Bld) [#/Vol] 3.40 10*6/uL Low 4.2-5.4 [facility] Comment on above: Order Comment: 504-1 Performed By: #### L 501.9310, L100.0500, L500.2500, L500.4100, L501.9985, L501.9520 ####[facility] [address] [place], [address] RDW SD 45.9 fl High 35.1-43.9 [facility] Comment on above: Order Comment: 504-1 Performed By: #### L 501.9310, L100.0500, L500.2500, L500.4100, L501.9985, L501.9520 ####[facility] [address] [place], [address] WBC (Bld) [#/Vol] 4.4 10*3/uL Normal 4.4-11.0 [facility] Comment on above: Order Comment: 504-1 Performed By: #### L 501.9310, L100.0500, L500.2500, L500.4100, L501.9985, L501.9520 ####[facility] [address] [place], [place], [id number] Calculated very low density lipoprotein (VLDL) cholesterol measurementOrdered By: Darcy Elias on 09-20-2024 VLDL Cholesterol 22 mg/dL 5-40 [facility] Carbon dioxide, total [Moles /volume] in Central venous bloodOrdered By: Darcy Elias on 09-20-2024 CO2 [Moles/Vol] 21.9 mmol/L 21.0-32.0 [facility] Chloride assayOrdered By: Barney Elias on 09-20-2024 Chloride [Moles/Vol] 103 mmol/L 98-108 [facility] Erythrocyte distribution wid th (RBC) [Ratio]Ordered By: Darcy Elias on 09-20-2024 Erythrocyte distribution width (RBC) [Entitic vol] 45.9 fL High 35.1-43.9 [facility] Erythrocyte distribution wid th ratioOrdered By: Darcy Elias on 09-20-2024 Erythrocyte distribution width (RBC) [Ratio] 12.9 % 11.6-14.6 [facility] GFR/1.73 sq M.predicted nadir g non-blacks MDRD (S/P/Bld) [Vol rate/Area]Ordered By: Darcy Elias on 09-20-2024 Estimated GFR (MDRD) Non-Af Amer 76 >60 [facility] Comment on above: mL/min/1.73m2 CKD-EP I Creatinine Equation (2020) Hematocrit Auto (Bld) [Volum e fraction]Ordered By: Darcy Elias on 09-20-2024 Hematocrit (Bld) [Volume fraction] 33.2 % Low 37-47 [facility] Hemoglobin A1c percentageOrd ered By: Darcy Elias on 09-20-2024 HbA1c (Bld) [Mass fraction] 7.1 % >5.7 [facility] Hemoglobin measurementOrdere d By: Darcy Elias on 09-20-2024 Hemoglobin (Bld) [Mass/Vol] 10.6 g/dL Low 12.0-15.0 [facility] LDL calc ser/plasOrdered By: Darcycedric Elias on 09-20-2024 LDL Cholesterol, Calculated 56 mg/dL [facility] Comment on above: Skjqteuayo=957-264 m g/dL & Higher Tivr=441 mg/dL or greater Lipid Profileon 09-20-2024 CHOL:HDL 2.99 Normal [facility] Comment on above: Order Comment: 504-1 Performed By: #### L 501.9310, L100.0500, L500.2500, L500.4100, L501.9985, L501.9520 ####[facility] [address] [place], [place], [id number] Cholesterol [Mass/Vol] 118 mg/dL Normal <=200 [facility] Comment on above: Order Comment: 504-1 Result Comment: Chol esterol level, Desirable <200 mg/dLBorderline high cholesterol 200-239 mg/dLHigh cholesterol >=240 mg/dLRecommendations of the NCEP Adult Treatment Panel for thefollowing risk-cutoff thresholds for the [place] Americanpopulation. Performed By: #### L 501.9310, L100.0500, L500.2500, L500.4100, L501.9985, L501.9520 ####[facility] [address] [place], [place], [id number] Cholesterol in HDL [Mass/Vol] 39 mg/dL Low [facility] Comment on above: Order Comment: Result Comment: Zhane onal Cholesterol Education Program (NCEP) guidelines:<40 mg/dL: Low HDL-cholesterol (major risk factor for CHD)>= 60 mg/dL: High HDL-cholesterol (negative risk factor forCHD)HDL-cholesterol is affected by a number of factors, e.g.smoking, exercise, hormones, sex and age. Performed By: #### L 501.9310, L100.0500, L500.2500, L500.4100, L501.9985, L501.9520 ####[facility] [address] [place], [address] Cholesterol in LDL [Mass/Vol] 56 mg/dL Normal [facility] Comment on above: Order Comment: Result Comment: Bord hpkald=544-964 mg/dL Higher Rsmm=630 mg/dL or greater Performed By: #### L 501.9310, L100.0500, L500.2500, L500.4100, L501.9985, L501.9520 ####[facility] [address] [place], [address] Cholesterol in VLDL [Mass/Vol] 22 mg/dL Normal 5-40 [facility] Comment on above: Order Comment: Performed By: #### L 501.9310, L100.0500, L500.2500, L500.4100, L501.9985, L501.9520 ####[facility] [address] [place], [address] Triglyceride [Mass/Vol] 111 mg/dL Normal [facility] Comment on above: Order Comment: Result Comment: The drugs N-Acetylcysteine and Metamizole may falselydepress this assay.Normal range: <150 mg/dLBorderline High: 150-199 mg/dLHigh: 200-499 mg/dLVery High: >500 mg/dL Performed By: #### L 501.9310, L100.0500, L500.2500, L500.4100, L501.9985, L501.9520 ####[facility] [address] [place], [address] MCV (mean corpuscular volume ) determinationOrdered By: Darcy Elias on 09-20-2024 MCV (RBC) [Entitic vol] 97.6 fL 81-99 [facility] Mean corpuscular hemoglobin (MCH) determinationOrdered By: Darcy Elias on 09-20-2024 MCH (RBC) [Entitic mass] 31.2 pg 27.0-32.0 [facility] Mean corpuscular hemoglobin concentration (MCHC) determinationOrdered By: Darcy Elias on 09-20-2024 MCHC (RBC) [Mass/Vol] 31.9 g/dL Low 32-36 [facility] Mean platelet volume determi nationOrdered By: Darcy Elias on 09-20-2024 Platelet mean volume (Bld) [Entitic vol] 11.3 fL 6.2-12.0 [facility] Platelet countOrdered By: Barney Elias on 09-20-2024 Platelets (Bld) [#/Vol] 126 10*3/uL Low 150-450 [facility] Potassium (Unsp spec) [Mass/ Vol]Ordered By: Darcy Elias on 09-20-2024 Potassium [Moles/Vol] 4.2 mmol/L 3.3-5.1 [facility] RBC Auto (Bld) [#/Vol]Ordere d By: Darcy Elias on 09-20-2024 RBC (Bld) [#/Vol] 3.40 10*6/uL Low 4.2-5.4 [facility] Screening total cholesterol/ high density lipoprotein (HDL) cholesterol ratioOrdered By: Darcy Elias on 09-20-2024 Cholesterol.total/Choles terol in HDL [Mass ratio] 2.99 {ratio} [facility] Serum creatinine measurement (mass/volume)Ordered By: Darcy Elias on 09-20-2024 Creatinine [Mass/Vol] 0.78 mg/dL 0.70-1.20 [facility] Serum glucose measurement (m ass/volume)Ordered By: Darcy Elias on 09-20-2024 Glucose [Mass/Vol] 229 mg/dL High 70-99 [facility] Serum or plasma calcium sonu urement (mass/volume)Ordered By: Darcy Elias on 09-20-2024 Calcium [Mass/Vol] 9.6 mg/dL 7.6-11.0 [facility] Serum or plasma cholesterol in HDL measurement (mass/volume)Ordered By: Darcy Elias on 09-20-2024 Cholesterol in HDL [Mass/Vol] 39 mg/dL Low >40 [facility] Comment on above: National Cholesterol Education Program (NCEP) guidelines:<40 mg/dL: Low HDL-cholesterol (major risk factor for CHD)>= 60 mg/dL: High HDL-cholesterol (negative risk factor for CHD)HDL-cholesterol is affected by a number of factors, e.g. smoking, exercise, hormones, sex and age. Serum or plasma cholesterol measurement (mass/volume)Ordered By: Darcy Elias on 09-20-2024 Cholesterol [Mass/Vol] 118 mg/dL <201 [facility] Comment on above: Cholesterol level, D esirable <200 mg/dLBorderline high cholesterol 200-239 mg/dLHigh cholesterol >=240 mg/dLRecommendations of the NCEP Adult Treatment Panel for the following risk-cutoff thresholds for the [place] population. Serum or plasma urea nitroge n measurement (mass/volume)Ordered By: Darcy Elias on 09-20-2024 Urea nitrogen [Mass/Vol] 18 mg/dL 4-19 [facility] Sodium levelOrdered By: Bibi Elias on 09-20-2024 Sodium [Moles/Vol] 138 mmol/L 133-145 [facility] T4 Total, Thyroxinon 025 T4 [Mass/Vol] 8.9 ug/dL Normal 4.8-13.9 [facility] Comment on above: Order Comment: 504-1 Performed By: #### L 501.9310, L100.0500, L500.2500, L500.4100, L501.9985, L501.9520 ####[facility] [address] [place], [place], [id number] TSH DL <= 0.005 mIU/L QnOrde red By: Darcy Elias on 09-20-2024 Thyroid Stimulating Hormone (TSH) 3.890 uIU/mL 0.300-4.200 [facility] Thyroid Stim Hormone (TSH)on 09-20-2024 TSH 3.890 uIU/mL Normal 0.300-4.200 [facility] Comment on above: Order Comment: 504-1 Performed By: #### L 501.9310, L100.0500, L500.2500, L500.4100, L501.9985, L501.9520 ####[facility] [address] [place], [address] ThyroxineOrdered By: Darcy Elias on 09-20-2024 T4 [Mass/Vol] 8.9 ug/dL 4.8-13.9 [facility] Triglycerides measurementOrd ered By: Darcy Elias on 09-20-2024 Triglyceride [Mass/Vol] 111 mg/dL <199 [facility] Comment on above: The drugs N-Acetylcy steine and Metamizole may falsely depress this assay. Normal range: <150 mg/dLBorderline High: 150-199 mg/dLHigh: 200-499 mg/dLVery High: >500 mg/dL White blood cell (WBC) count Ordered By: Darcy Elias on 09-20-2024 WBC (Bld) [#/Vol] 4.4 10*3/uL 4.4-11.0 [facility] Basic Metabolic Profile (BMP )on 06-21-2024 BUN/CRE 37.6 RATIO High 10- [facility] Comment on above: Performed By: #### L 501.9985, L500.4100, L500.2500, L501.9310, L100.0500, L501.9520 ####[facility] [address] [place], [address] CA,Total 9.6 mg/dL Normal 8.5-10.1 [facility] Comment on above: Performed By: #### L 501.9985, L500.4100, L500.2500, L501.9310, L100.0500, L501.9520 ####[facility] [address] [place], [address] Chloride [Moles/Vol] 107 mmol/L Normal 98-107 [facility] Comment on above: Performed By: #### L 501.9985, L500.4100, L500.2500, L501.9310, L100.0500, L501.9520 ####[facility] [address] [place], [address] CO2 [Moles/Vol] 28.0 mmol/L Normal 21.0-32.0 [facility] Comment on above: Performed By: #### L 501.9985, L500.4100, L500.2500, L501.9310, L100.0500, L501.9520 ####[facility] [address] [place], [address] Creatinine [Mass/Vol] 0.77 mg/dL Normal 0.55-1.02 [facility] Comment on above: Result Comment: The validity of the calculated GFR GFRAA in patients over70 years has not been determined. Clinical correlation isessential. Performed By: #### L 501.9985, L500.4100, L500.2500, L501.9310, L100.0500, L501.9520 ####[facility] [address] [place], [address] EST GFR - AA 92 mL/min Normal >60 [facility] Comment on above: Result Comment: Afri can [place] GFR Calc Performed By: #### L 501.9985, L500.4100, L500.2500, L501.9310, L100.0500, L501.9520 ####[facility] [address] [place], [address] GAP 5 Normal 5-15 [facility] Comment on above: Performed By: #### L 501.9985, L500.4100, L500.2500, L501.9310, L100.0500, L501.9520 ####[facility] [address], [address] GFR/1.73 sq M.predicted among non-blacks MDRD (S/P/Bld) [Vol rate/Area] 76 mL/min/{1.73_m2} Normal >60 [facility] Comment on above: Result Comment: Non- GFR Calc Performed By: #### L 501.9985, L500.4100, L500.2500, L501.9310, L100.0500, L501.9520 ####[facility] [address] [place], [address] Glucose [Mass/Vol] 100 mg/dL Normal 74-106 [facility] Comment on above: Result Comment: Fast ing Glucose result from 100 to 125 mg/dLsuggests IMPAIRED HOMEOSTASIS per A.D.A. criteria. Performed By: #### L 501.9985, L500.4100, L500.2500, L501.9310, L100.0500, L501.9520 ####[facility] [address] [place], [address] Potassium [Moles/Vol] 3.9 mmol/L Normal 3.5-5.1 [facility] Comment on above: Performed By: #### L 501.9985, L500.4100, L500.2500, L501.9310, L100.0500, L501.9520 ####[facility] [address] [place], [address] Sodium [Moles/Vol] 140 mmol/L Normal 136-145 [facility] Comment on above: Performed By: #### L 501.9985, L500.4100, L500.2500, L501.9310, L100.0500, L501.9520 ####[facility] [address] [place], [address] Urea nitrogen [Mass/Vol] 29 mg/dL High 7-18 [facility] Comment on above: Performed By: #### L 501.9985, L500.4100, L500.2500, L501.9310, L100.0500, L501.9520 ####[facility] [address] [place], [address] Blood urea nitrogen (BUN)/cr eatinine ratioOrdered By: Darcy Elias on 06-21-2024 Urea nitrogen/Creatinine [Mass ratio] 37.6 mg/mg High 10-20 [facility] CBC-Complete Blood Cnt No Di ffon 06-21-2024 Erythrocyte distribution width (RBC) [Ratio] 13.3 % Normal 11.6-14.6 [facility] Comment on above: Performed By: #### L 501.9985, L500.4100, L500.2500, L501.9310, L100.0500, L501.9520 ####[facility] [address] [place], [address] Hematocrit (Bld) [Volume fraction] 33.1 % Low 37-47 [facility] Comment on above: Performed By: #### L 501.9985, L500.4100, L500.2500, L501.9310, L100.0500, L501.9520 ####[facility] [address] [place], [address] Hemoglobin (Bld) [Mass/Vol] 10.5 g/dL Low 12.0-15.0 [facility] Comment on above: Performed By: #### L 501.9985, L500.4100, L500.2500, L501.9310, L100.0500, L501.9520 ####[facility] [address] [place], [address] MCH (RBC) [Entitic mass] 31.8 pg Normal 27.0-32.0 [facility] Comment on above: Performed By: #### L 501.9985, L500.4100, L500.2500, L501.9310, L100.0500, L501.9520 ####[facility] [address] [place], [address] MCHC (RBC) [Mass/Vol] 31.7 g/dL Low 32-36 [facility] Comment on above: Performed By: #### L 501.9985, L500.4100, L500.2500, L501.9310, L100.0500, L501.9520 ####[facility] [address] [place], [address] MCV (RBC) [Entitic vol] 100.3 fL High 81-99 [facility] Comment on above: Performed By: #### L 501.9985, L500.4100, L500.2500, L501.9310, L100.0500, L501.9520 ####[facility] [address] [place], [address] Platelet mean volume (Bld) [Entitic vol] 11.5 fL Normal 6.2-12.0 [facility] Comment on above: Performed By: #### L 501.9985, L500.4100, L500.2500, L501.9310, L100.0500, L501.9520 ####[facility] [address] [place], [address] Platelets (Bld) [#/Vol] 125 10*3/uL Low 150-450 [facility] Comment on above: Performed By: #### L 501.9985, L500.4100, L500.2500, L501.9310, L100.0500, L501.9520 ####[facility] [address] [place], [address] RBC (Bld) [#/Vol] 3.30 10*6/uL Low 4.2-5.4 [facility] Comment on above: Performed By: #### L 501.9985, L500.4100, L500.2500, L501.9310, L100.0500, L501.9520 ####[facility] [address] [place], [address] RDW SD 49.0 fl High 35.1-43.9 [facility] Comment on above: Performed By: #### L 501.9985, L500.4100, L500.2500, L501.9310, L100.0500, L501.9520 ####[facility] [address] [place], [address] WBC (Bld) [#/Vol] 3.9 10*3/uL Low 4.4-11.0 [facility] Comment on above: Performed By: #### L 501.9985, L500.4100, L500.2500, L501.9310, L100.0500, L501.9520 ####[facility] [address] [place], [address] Carbon dioxide measurementOr dered By: Darcy Elias on 06-21-2024 CO2 [Moles/Vol] 28.0 mmol/L 21.0-32.0 [facility] Chloride measurementOrdered By: Darcy Elias on 06-21-2024 Chloride [Moles/Vol] 107 mmol/L 98-107 [facility] Erythrocyte distribution wid th (RBC) [Ratio]Ordered By: Darcy Elias on 06-21-2024 Erythrocyte distribution width (RBC) [Entitic vol] 49.0 fL High 35.1-43.9 [facility] Erythrocyte distribution wid th ratioOrdered By: Darcy Elias on 06-21-2024 Erythrocyte distribution width (RBC) [Ratio] 13.3 % 11.6-14.6 [facility] Estimated glomerular filtrat ion rate (GFR) AmericanOrdered By: Darcy Elias on 06-21-2024 Estimated GFR (MDRD) Amer 92 mL/min >60 [facility] Comment on above: GFR Calc Glomerular filtration rate ( GFR) estimationOrdered By: Darcy Elias on 06-21-2024 Estimated GFR (MDRD) Non-Af Amer 76 mL/min >60 [facility] Comment on above: Non- GFR Calc Glucose measurementOrdered B y: Darcy Elias on 06-21-2024 Glucose [Mass/Vol] 100 mg/dL 74-106 [facility] Comment on above: Fasting Glucose resu lt from 100 to 125 mg/dL suggests IMPAIRED HOMEOSTASIS per A.D.A. criteria. Hematocrit Auto (Bld) [Volum e fraction]Ordered By: Darcy Elias on 06-21-2024 Hematocrit (Bld) [Volume fraction] 33.1 % Low 37-47 [facility] Hemoglobin A1con 06-21-2024 HbA1c (Bld) [Mass fraction] 7.4 % High 3.8-5.6 [facility] Comment on above: Result Comment: Norm al < 5.7 % Prediabetic 5.7 - 6.4 % Diabetic >or= 6.5 % Please note range changes. Performed By: #### L 501.9985, L500.4100, L500.2500, L501.9310, L100.0500, L501.9520 ####[facility] [address] [place], [place], [id number] Hemoglobin A1c percentageOrd ered By: Darcy Elias on 06-21-2024 HbA1c (Bld) [Mass fraction] 7.4 % High 3.8-5.6 [facility] Comment on above: Normal < 5.7 % Predi abetic 5.7 - 6.4 % Diabetic >or= 6.5 % Please note range changes. Hemoglobin measurementOrdere d By: Darcy Elias on 06-21-2024 Hemoglobin (Bld) [Mass/Vol] 10.5 g/dL Low 12.0-15.0 [facility] High density lipoprotein (HD L) measurementOrdered By: Darcy Elias on 06-21-2024 Cholesterol in HDL [Mass/Vol] 43 mg/dL >40 [facility] Comment on above: The drugs N-Acetylcy steine and Metamizole may falsely depress this assay. Reference Range HDL <40 mg/dL Low HDL Cholesterol HDL >or= 60 mg/dL High HDL Cholesterol Lipid Profileon 06-21-2024 Cholesterol [Mass/Vol] 118 mg/dL Normal 200 [facility] Comment on above: Result Comment: <200 mg/dL Desirable 200-240 mg/dL Borderline >240 mg/dL High Risk Performed By: #### L 501.9985, L500.4100, L500.2500, L501.9310, L100.0500, L501.9520 ####[facility] [address] [place], [address] Cholesterol in HDL [Mass/Vol] 43 mg/dL Normal [facility] Comment on above: Result Comment: The drugs N-Acetylcysteine and Metamizole may falselydepress this assay. Reference Range HDL <40 mg/dL Low HDL Cholesterol HDL >or= 60 mg/dL High HDL Cholesterol Performed By: #### L 501.9985, L500.4100, L500.2500, L501.9310, L100.0500, L501.9520 ####[facility] [address] [place], [address] Cholesterol in LDL [Mass/Vol] 52 mg/dL Normal 0-130 [facility] Comment on above: Performed By: #### L 501.9985, L500.4100, L500.2500, L501.9310, L100.0500, L501.9520 ####[facility] [address] [place], [address] Cholesterol in VLDL [Mass/Vol] 23 mg/dL Normal 5-40 [facility] Comment on above: Performed By: #### L 501.9985, L500.4100, L500.2500, L501.9310, L100.0500, L501.9520 ####[facility] [address] [place], [place], [id number] Triglyceride [Mass/Vol] 114 mg/dL Normal [facility] Comment on above: Result Comment: The drugs N-Acetylcysteine and Metamizole may falselydepress this assay.Serum Triglycerides Reference Interval Normal <150 mg/dL Borderline high 150 - 199 mg/dL High 200 - 499 mg/dL Very High > or = 500 mg/dL Performed By: #### L 501.9985, L500.4100, L500.2500, L501.9310, L100.0500, L501.9520 ####[facility] [address] [place], [place], [id number] Low density lipoprotein (LDL ) cholesterol measurementOrdered By: Darcy Elias on 06-21-2024 Cholesterol in LDL [Mass/Vol] 52 mg/dL 0-130 [facility] MCV (mean corpuscular volume ) determinationOrdered By: Darcy Elias on 06-21-2024 MCV (RBC) [Entitic vol] 100.3 fL High 81-[address] [facility] Mean corpuscular hemoglobin (MCH) determinationOrdered By: Darcy Elias on 06-21-2024 MCH (RBC) [Entitic mass] 31.8 pg 27.0-32.0 [facility] Mean corpuscular hemoglobin concentration (MCHC) determinationOrdered By: Darcy Elias on 06-21-2024 MCHC (RBC) [Mass/Vol] 31.7 g/dL Low 32-36 [facility] Mean platelet volume determi nationOrdered By: Darcy Elias on 06-21-2024 Platelet mean volume (Bld) [Entitic vol] 11.5 fL 6.2-12.0 [facility] Platelet countOrdered By: Barney Elias on 06-21-2024 Platelets (Bld) [#/Vol] 125 10*3/uL Low 150-450 [facility] Potassium measurementOrdered By: Darcy Elias on 06-21-2024 Potassium [Moles/Vol] 3.9 mmol/L 3.5-5.1 [facility] RBC Auto (Bld) [#/Vol]Ordere d By: Darcy Elias on 06-21-2024 RBC (Bld) [#/Vol] 3.30 10*6/uL Low 4.2-5.4 [facility] Serum anion gap measurementO rdered By: Darcy Elias on 06-21-2024 Anion gap [Moles/Vol] 5 mmol/L 5-15 [facility] Serum or plasma calcium sonu urement (mass/volume)Ordered By: Darcy Elias on 06-21-2024 Calcium [Mass/Vol] 9.6 mg/dL 8.5-10.1 [facility] Serum or plasma cholesterol measurement (mass/volume)Ordered By: Darcy Elias on 06-21-2024 Cholesterol [Mass/Vol] 118 mg/dL <200 [facility] Comment on above: <200 mg/dL Desirable 200-240 mg/dL Borderline >240 mg/dL High Risk Serum or plasma creatinine m easurement (mass/volume)Ordered By: Darcy Elias on 06-21-2024 Creatinine [Mass/Vol] 0.77 mg/dL 0.55-1.02 [facility] Comment on above: The validity of the calculated GFR & GFRAA in patients over 70 years has not been determined. Clinical correlation is essential. Serum or plasma thyroxine (T 4) measurement (mass/volume)Ordered By: Darcy Elias on 06-21-2024 T4 [Mass/Vol] 11.6 ug/dL 4.8-13.9 [facility] Serum or plasma urea nitroge n measurement (mass/volume)Ordered By: Dacry Eilas on 06-21-2024 Urea nitrogen [Mass/Vol] 29 mg/dL High 7-18 [facility] Sodium levelOrdered By: Bibi Elias on 06-21-2024 Sodium [Moles/Vol] 140 mmol/L 136-145 [facility] T4 Total, Thyroxinon 024 T4 [Mass/Vol] 11.6 ug/dL Normal 4.8-13.9 [facility] Comment on above: Performed By: #### L 501.9985, L500.4100, L500.2500, L501.9310, L100.0500, L501.9520 ####[facility] [id number] [place], [place], [id number] TSH QnOrdered By: Darcy carrizales on 06-21-2024 Thyroid Stimulating Hormone (TSH) 2.350 uIU/mL 0.358-3.740 [facility] Thyroid Stim Hormone (TSH)on 06-21-2024 TSH 2.350 uIU/mL Normal 0.358-3.740 [facility] Comment on above: Performed By: #### L 501.9985, L500.4100, L500.2500, L501.9310, L100.0500, L501.9520 ####[facility] [id number] [place], [address] Triglycerides measurementOrd ered By: Darcy Elias on 06-21-2024 Triglyceride [Mass/Vol] 114 mg/dL <199 [facility] Comment on above: The drugs N-Acetylcy steine and Metamizole may falsely depress this assay.Serum Triglycerides Reference Interval Normal <150 mg/dL Borderline high 150 - 199 mg/dL High 200 - 499 mg/dL Very High > or = 500 mg/dL Very low density lipoprotein (VLDL) cholesterol measurementOrdered By: Darcy Elias on 06-21-2024 VLDL Cholesterol 23 mg/dL 5-40 [facility] White blood cell (WBC) count Ordered By: Darcy Elias on 06-21-2024 WBC (Bld) [#/Vol] 3.9 10*3/uL Low 4.4-11.0 [facility] Glynn 11-25-2023 [place] Telephone ([facility]) STEVE VIEIRA ([id number]) 1945 F Date Time Provider Department 11/25/23 PETER ELLIS During your visit today, we recorded the following information about you: Alta Ortiz LPN 11/25/2023 3:46 PM Signed Naye with [facility] calls to report that pt was [...] DM teaching--see if can get in with family living educator or [employer] to help with use of CGM as [...] PM Signed Pt has been admitted to [facility]. See ER and HANDP note. Allergies [...] as of 12/04/2023 - Blood-Glucose Meter,Continuous (FREESTYLE PLIAR 3 READER) [facility] Use to check blood sugar at [...] subcutaneously one time a week. Gets through [employer] [facility]. - levothyroxine (SYNTHROID) 25 mcg tablet Take 1 tablet by mouth every Friday,Friday, ay. Take on empty stomach. For thyroid. Add to the levothyroxine 50 mcg once daily dosing but just on Fri-Fri-Fri - empagliflozin (JARDIANCE) 25 mg tablet Take 1 tablet by mouth daily with breakfast. Gets through [employer] [facility]. - ferrous sulfate 325 mg (65 [...] Encounter Status:Closed by RENET[facility] Tele[facility] ([place]) STEVE VIEIRA ([id number]) 1945 F Date Time Provider Department 11/14/23 SHERWIN CHE During your visit today, we recorded the following information about you: Sherwin Che MSW 11/14/2023 9:58 AM Signed left message for patient to return call to discuss home care needs. Lesli does not see any mention of status of guardianship appointment for patient. Sw will discuss further with patient and when she returns Lesli call. Sherwin Che, OSITO 11/19/2023 12:45 PM [...] would need set up in the home. WaderezaSherwin bolivar, MANAGED SERVICES CONSULTANT 11/20/2023 4:02 PM Signed Lesli spoke with patient in regards to asking son Salomón to reach out to TREVA Wang. Abbi says she can tell Salomón, but she will call Feilpe herself to discuss home care service needs. [...] - Blood-Glucose Meter,Continuous (FREESTYLE PILAR 3 READER) [facility] Use to check blood sugar at [...] subcutaneously one time a week. Gets through [employer] [facility]. - levothyroxine (SYNTHROID) 25 mcg tablet Take 1 tablet by mouth every Friday,Friday, ay. Take on empty stomach. For thyroid. Add to the levothyroxine 50 mcg once daily dosing but just on Fri-Fri-Fri - empagliflozin (JARDIANCE) 25 mg tablet Take 1 tablet by mouth daily with breakfast. Gets through [employer] [facility]. - ferrous sulfate 325 mg (65 [...] Encounter Status:Clos (more content not included)... Normal [facility] CNPNon 11-13-2023 CNPN Telephone (INTMWS) STEVE VIEIRA ([id number]) 1945 F Date Time Provider Department 11/13/23 PETER ELLIS INTMWS During your visit today, we recorded the following information about you: Sharon Mayer RN 11/13/2023 11:58 AM Signed Ethan with the PA Department with [employer] called and reports they need the notes regarding the Free Style Pilar. I let him know that they needed to be signed and as soon as the provider does this we would fax them to # [phone]. Loan Johnston MA 11/13/2023 3:32 PM Signed Faxed office notes/A1c values with additonal question form ИВАН Suazo Amanda, RN 11/14/2023 9:19 AM Signed Faxed completed signed last OV note from 11/12/23 to PA Department with [employer] fax # [phone]. Loan Johnston MA 11/17/2023 8:56 AM Signed Notified that pilar 3 reader and sensors are approved Left message for patient on Loan ИВАН Johnston Allergies As of Date: 11/13/2023 Noted Allergy [...] Fully Assessed Reason for Visit: Insurance Authorization [[id number]] Cmt: pilar Prescriptions as of 11/17/2023 - Blood-Glucose Meter,Continuous (FREESTYLE PILAR 3 READER) [facility] Use to check blood sugar at [...] subcutaneously one time a week. Gets through [employer] [facility]. - levothyroxine (SYNTHROID) 25 mcg tablet [...] Encounter Status:Closed by SHARON MAYER on 11/14/23 [facility] CNOVon 11-12-2023 CNOV Office Visit (INTMWS ) STEVE VIEIRA ([id number]) 1945 F Date Time Provider Department 11/12/23 2:00 PM PETER ELLIS INTMWS During your visit today, we recorded the following information about you: Temperature Pulse Respiration Blood pressure 97.6 degrees 93/minute 18/minute 124/72 Peter Ellis MD 11/14/2023 9:10 AM Signed This note was created using [employer]. Subjective Steve Vieira is a 78 year [...] walking from home to her appointment. Eats [employer] and [employer]. Has cat. States trying to Was at [...] wants her to move where they are ([place]). Has a friend who lives [place]--prefers to move there. Kids were here after when she was transferred to [facility] then had to go back to their homes. Not sure about her meds but gets from [facility]. Wants [facility] so can check sugars. Feet completely numb--chronic. [...] subcutaneously one time a week. Gets through [employer] [facility]. levothyroxine (SYNTHROID) 25 mcg tablet Take 1 tablet by mouth every Friday,Friday, ay. Take on empty stomach. For thyroid. Add to the levothyroxine 50 mcg once daily dosing but just on Fri-Fri-Fri empagliflozin (JARDIANCE) 25 mg tablet Take 1 tablet by mouth daily with breakfast. Gets through [employer] [facility]. ferrous sulfate 325 mg (65 mg [...] (L) MC (more content not included)... Normal [facility] CBC W Auto Differential pane l (Bld)on 10-31-2023 Basophils (Bld) [#/Vol] 0.05 10*3/uL [facility] Basophils/100 WBC (Bld) 1.1 % [facility] Differential cell count method Nom (Bld) Auto [facility] Eosinophils (Bld) [#/Vol] 0.33 10*3/uL [facility] Eosinophils/100 WBC (Bld) 7.1 % [facility] Erythrocyte distribution width (RBC) [Ratio] 15.4 % High 11.5 - 15.0 % [facility] Hematocrit (Bld) [Volume fraction] 35.6 % Low 36.0 - 46.0 % [facility] Hemoglobin (Bld) [Mass/Vol] 10.6 g/dL Low 11.5 - 15.5 g/dL [facility] Immature granulocytes (Bld) [#/Vol] [facility] Immature granulocytes/100 WBC (Bld) 0.2 % [facility] Interpretation and review of laboratory results Abnormal [facility] Lymphocytes (Bld) [#/Vol] 1.23 10*3/uL [facility] Lymphocytes/100 WBC (Bld) 26.6 % [facility] MCH (RBC) [Entitic mass] 27.3 pg 26. 0 - 34.0 pg [facility] MCHC (RBC) [Mass/Vol] 29.8 g/dL Low 30.5 - 36.0 g/dL [facility] MCV (RBC) [Entitic vol] 91.8 fL 80.0 - 100.0 fL [facility] Monocytes (Bld) [#/Vol] 0.36 10*3/uL [facility] Monocytes/100 WBC (Bld) 7.8 % [facility] Neutrophils (Bld) [#/Vol] 2.65 10*3/uL [facility] Neutrophils/100 WBC (Bld) 57.2 % [facility] Nucleated RBC (Bld) [#/Vol] [facility] Nucleated RBC/100 WBC (Bld) [Ratio] 0.0 % /100 WBC [facility] Platelet mean volume (Bld) [Entitic vol] 11.8 fL 9.0 - 12.7 fL [facility] Platelets (Bld) [#/Vol] 177 10*3/uL [facility] RBC (Bld) [#/Vol] 3.88 10*6/uL Low 3.90 - 5.2 0 m/uL [facility] WBC (Bld) [#/Vol] 4.63 10*3/uL [facility] Basophils (Bld) [#/Vol] 0.05 10*3/uL Normal <0.11 [facility] Comment on above: Order Comment: Speci men Type: BLOOD SPECIMENOrdering Facility: [facility] Address: [address] [place] [address] Performed By: #### 5 7021-8 ####[facility] LABCLIA [id number] [place] [address] [place] Basophils/100 WBC (Bld) 1.1 % Normal C [facility] Comment on above: Order Comment: Speci men Type: BLOOD SPECIMENOrdering Facility: [facility] Address: [address] [place] [address] Performed By: #### 5 7021-8 ####[facility] LABCLIA [id number] [place] [address] [place] Differential cell count method Nom (Bld) Auto Normal [facility] Comment on above: Order Comment: Speci men Type: BLOOD SPECIMENOrdering Facility: [facility] Address: [address] [place] [address] Performed By: #### 5 7021-8 ####[facility] LABCLIA [id number] [place] [address] [place] Eosinophils (Bld) [#/Vol] 0.33 10*3/uL Normal <0.46 [facility] Comment on above: Order Comment: Speci men Type: BLOOD SPECIMENOrdering Facility: [facility] Address: [address] [place] [address] Performed By: #### 5 7021-8 ####[facility] LABCLIA [id number] [place] [address] [place] Eosinophils/100 WBC (Bld) 7.1 % Normal [facility] Comment on above: Order Comment: Speci men Type: BLOOD SPECIMENOrdering Facility: [facility] Address: [address] [place] [address] Performed By: #### 5 7021-8 ####[facility] LABCLIA [id number] [place] [address] [place] Erythrocyte distribution width (RBC) [Ratio] 15.4 % High 11.5-15.0 [facility] Comment on above: Order Comment: Speci men Type: BLOOD SPECIMENOrdering Facility: [facility] Address: [address] [place] [address] Performed By: #### 5 7021-8 ####[facility] LABCLIA [id number] [place] [address] [place] Hematocrit (Bld) [Volume fraction] 35.6 % Low 36.0-46.0 [facility] Comment on above: Order Comment: Speci men Type: BLOOD SPECIMENOrdering Facility: [facility] Address: [address] [place] [address] Performed By: #### 5 7021-8 ####[facility] LABCLIA [id number] [place] [address] [place] Hemoglobin (Bld) [Mass/Vol] 10.6 g/dL Low 11.5-15.5 [facility] Comment on above: Order Comment: Speci men Type: BLOOD SPECIMENOrdering Facility: [facility] Address: [address] [place] [address] Performed By: #### 5 7021-8 ####[facility] LABIA [id number] [place] [address] [place] Immature granulocytes (Bld) [#/Vol] 10*3/uL Normal <0.10 [facility] Comment on above: Order Comment: Speci men Type: BLOOD SPECIMENOrdering Facility: [facility] Address: [address] [place] [address] Performed By: #### 5 7021-8 ####[facility] LABIA [id number] [place] [address] [place] Immature granulocytes/100 WBC (Bld) 0.2 % Normal [facility] Comment on above: Order Comment: Speci men Type: BLOOD SPECIMENOrdering Facility: [facility] Address: [address] [place] [address] Performed By: #### 5 7021-8 ####[facility] LABIA [id number] [place] [address] [place] Lymphocytes (Bld) [#/Vol] 1.23 10*3/uL Normal 1.00-4.00 [facility] Comment on above: Order Comment: Speci men Type: BLOOD SPECIMENOrdering Facility: [facility] Address: [address] [place] [address] Performed By: #### 5 7021-8 ####[facility] LABCLIA [id number] [place] [address] [place] Lymphocytes/100 WBC (Bld) 26.6 % Normal [facility] Comment on above: Order Comment: Speci men Type: BLOOD SPECIMENOrdering Facility: [facility] Address: [address] [place] [address] Performed By: #### 5 7021-8 ####[facility] LABIA [id number] [place] [address] [place] MCH (RBC) [Entitic mass] 27.3 pg Normal 26.0-34.0 [facility] Comment on above: Order Comment: Speci men Type: BLOOD SPECIMENOrdering Facility: [facility] Address: [address] [place] [address] Performed By: #### 5 7021-8 ####[facility] LABIA [id number] [place] [address] [place] MCHC (RBC) [Mass/Vol] 29.8 g/dL Low 30.5-36.0 [facility] Comment on above: Order Comment: Speci men Type: BLOOD SPECIMENOrdering Facility: [facility] Address: [address] [place] [address] Performed By: #### 5 7021-8 ####[facility] LABIA [id number] [place] [address] [place] MCV (RBC) [Entitic vol] 91.8 fL Normal 80.0-100.0 C [facility] Comment on above: Order Comment: Speci men Type: BLOOD SPECIMENOrdering Facility: [facility] Address: [address] [place] [address] Performed By: #### 5 7021-8 ####[facility] LABIA [id number] [place] [address] [place] Monocytes (Bld) [#/Vol] 0.36 10*3/uL Normal <0.87 [facility] Comment on above: Order Comment: Speci men Type: BLOOD SPECIMENOrdering Facility: [facility] Address: [address] [place] [address] Performed By: #### 5 7021-8 ####[facility] LABCLIA [id number] [place] [address] [place] Monocytes/100 WBC (Bld) 7.8 % Normal [facility] Comment on above: Order Comment: Speci men Type: BLOOD SPECIMENOrdering Facility: [facility] Address: [address] [place] [address] Performed By: #### 5 7021-8 ####[facility] LABCLIA [id number] [place] [address] [place] Neutrophils (Bld) [#/Vol] 2.65 10*3/uL Normal 1.45-7.50 [facility] Comment on above: Order Comment: Speci men Type: BLOOD SPECIMENOrdering Facility: [facility] Address: [address] [place] [address] Performed By: #### 5 7021-8 ####[facility] LABCLIA [id number] [place] [address] [place] Neutrophils/100 WBC (Bld) 57.2 % Normal [facility] Comment on above: Order Comment: Speci men Type: BLOOD SPECIMENOrdering Facility: [facility] Address: [address] [place] [address] Performed By: #### 5 7021-8 ####[facility] LABCLIA [id number] [place] [address] [place] Nucleated RBC (Bld) [#/Vol] 10*3/uL Normal <0.01 [facility] Comment on above: Order Comment: Speci men Type: BLOOD SPECIMENOrdering Facility: [facility] Address: [address] [place] [address] Performed By: #### 5 7021-8 ####[facility] LABCLIA [id number] [place] [address] [place] Nucleated RBC/100 WBC (Bld) [Ratio] 0.0 /100 WBC Normal [facility] Comment on above: Order Comment: Speci men Type: BLOOD SPECIMENOrdering Facility: [facility] Address: [address] [place] [address] Performed By: #### 5 7021-8 ####[facility] LABIA [id number] [place] [address] [place] Platelet mean volume (Bld) [Entitic vol] 11.8 fL Normal 9.0-12.7 [facility] Comment on above: Order Comment: Speci men Type: BLOOD SPECIMENOrdering Facility: [facility] Address: [address] [place] [address] Performed By: #### 5 7021-8 ####[facility] LABIA [id number] [place] [address] [place] Platelets (Bld) [#/Vol] 177 10*3/uL Normal 150-400 [facility] Comment on above: Order Comment: Speci men Type: BLOOD SPECIMENOrdering Facility: [facility] Address: [address] [place] [address] Performed By: #### 5 7021-8 ####[facility] LABIA [id number] [place] [address] [place] RBC (Bld) [#/Vol] 3.88 10*6/uL Low 3.90-5.20 [facility] Comment on above: Order Comment: Speci men Type: BLOOD SPECIMENOrdering Facility: [facility] Address: [address] [place] [address] Performed By: #### 5 7021-8 ####[facility] LABIA [id number] [place] [address] [place] WBC (Bld) [#/Vol] 4.63 10*3/uL Normal 3.70-11.00 [facility] Comment on above: Order Comment: Speci men Type: BLOOD SPECIMENOrdering Facility: [facility] Address: [address] [place] [address] Performed By: #### 5 7021-8 ####[facility] LABCLIA [id number] [id number] OF [facility] CNPNon 10-31-2023 CNPN Telephone (INTMWS) STEVE VIEIRA ([id number]) 1945 F Date Time Provider Department 10/31/23 PETER ELLIS INTMWS During your visit today, we recorded the following information about you: Roula Woodall LPN 10/31/2023 11:08 AM Signed Patient here to have labs drawn for OV with PCP on 11/12/23. Waiting down front and can call [facility] at ext [phone] to update pt. Last OV 08/25/23 with labs done then. ROSELIA Márquez Rosa, APRN.MOLDER 10/31/2023 11:20 AM Signed Please let lab [...] BLOOD COUNT AND DIFFERENTIAL [SQCBCDIF] Order #: [id number] FUTURE COMPREHENSIVE METABOLIC PANEL [SQCMP] Order #: [id number] FUTURE THYROID STIMULATING HORMONE [SQTSH] Order #: [id number] FUTURE T3, FREE [SQFREET3] Order #: [id number] FUTURE T4 FREE/FREE THYROXINE [SQFT4] Order #: [id number] FUTURE IRON AND TIBC [SQIRON] Order #: [id number] FUTURE FERRITIN [SQFERR] Order #: [id number] FUTURE HEMOGLOBIN A1C [VFMGN6W] Order #: [id number] FUTURE Prescriptions as of 10/31/2023 - metFORMIN [...] subcutaneously one time a week. Gets through [employer] [facility]. - levothyroxine (SYNTHROID) 25 mcg tablet [...] Status:Closed by LORAINE JOHNSON on 10/31/23 Normal [facility] Comprehensive metabolic 2000 panelon 10-31-2023 Albumin [Mass/Vol] 4.3 g/dL Normal 3.9-4.9 [facility] Comment on above: Order Comment: Speci men Type: BLOOD SPECIMENOrdering Facility: [facility] Address: [address] [place] [address] Performed By: #### 2 4323-8, 76749-9, 3051-0, 3024-7 ####[facility] LABIA [id number] [place] [address] [place] ALP [Catalytic activity/Vol] 226 U/L High 34-123 [facility] Comment on above: Order Comment: Speci men Type: BLOOD SPECIMENOrdering Facility: [facility] Address: [address] [place] [address] Performed By: #### 2 4323-8, 89222-5, 3051-0, 3024-7 ####[facility] LABIA [id number] [place] [address] [place] ALT [Catalytic activity/Vol] 66 U/L High 7-38 [facility] Comment on above: Order Comment: Speci men Type: BLOOD SPECIMENOrdering Facility: [facility] Address: [address] [place] [address] Performed By: #### 2 4323-8, 65521-5, 3051-0, 3024-7 ####[facility] LABIA [id number] [place] [address] [place] Anion gap [Moles/Vol] 13 mmol/L Normal 9-18 [facility] Comment on above: Order Comment: Speci men Type: BLOOD SPECIMENOrdering Facility: [facility] Address: [address] [place] [address] Performed By: #### 2 4323-8, 41359-1, 3051-0, 302-7 ####[facility] LABIA [id number] [place] [address] [place] AST [Catalytic activity/Vol] 76 U/L High 13-35 [facility] Comment on above: Order Comment: Speci men Type: BLOOD SPECIMENOrdering Facility: [facility] Address: [address] [place] [address] Performed By: #### 2 4323-8, 69003-7, 3051-0, 3024-7 ####[facility] LABCLIA [id number] [place] [id number] [place] Bilirubin [Mass/Vol] 0.5 mg/dL Normal 0.2-1.3 [facility] Comment on above: Order Comment: Speci men Type: BLOOD SPECIMENOrdering Facility: [facility] Address: [address] [place] [address] Performed By: #### 2 4323-8, 52562-9, 3051-0, 3024-7 ####[facility] LABIA [id number] [place] [address] [place] Calcium [Mass/Vol] 10.1 mg/dL Normal 8.5-10.2 [facility] Comment on above: Order Comment: Speci men Type: BLOOD SPECIMENOrdering Facility: [facility] Address: [address] [place] [address] Performed By: #### 2 4323-8, 11489-3, 3051-0, 3024-7 ####[facility] LABIA [id number] [place] [address] [place] Chloride [Moles/Vol] 101 mmol/L Normal 97-105 [facility] Comment on above: Order Comment: Speci men Type: BLOOD SPECIMENOrdering Facility: [facility] Address: [address] [place] [address] Performed By: #### 2 4323-8, 98672-4, 3051-0, 3024-7 ####[facility] LABIA [id number] [place] [address] [place] CO2 [Moles/Vol] 21 mmol/L Low 22-30 [facility] Comment on above: Order Comment: Speci men Type: BLOOD SPECIMENOrdering Facility: [facility] Address: [address] [place] [address] Performed By: #### 2 4323-8, 82061-2, 3051-0, 3024-7 ####[facility] LABNORTHEAST[facility] [id number] [place] [address] [place] Creatinine [Mass/Vol] 0.60 mg/dL Normal 0.58-0.96 [facility] Comment on above: Order Comment: Sudhakar mera Type: BLOOD SPECIMENOrdering Facility: [facility] Address: [address] [place] [address] Performed By: #### 2 4323-8, 15066-2, 3051-0, 3024-7 ####[facility] [id number] [address] [place] Creatinine and Glomerular filtration rate.predicted panel (S/P/Bld) 91 mL/min/1.73m??? Normal >=60 [facility] Comment on above: Order Comment: Sudhakar mera Type: BLOOD SPECIMENOrdering Facility: [facility] Address: [address] [place] [address] Result Comment: Audra mated Glomerular Filtration Rate [...] actual GFR. Performed By: #### 2 4323-8, 35791-5, 3051-0, 3024-7 ####[facility] [id number] [place] [id number] [place] Glucose [Mass/Vol] 479 mg/dL High 74-99 [facility] Comment on above: Order Comment: Sudhakar mera Type: BLOOD SPECIMENOrdering Facility: [facility] Address: [address] [place] [address] Result Comment: The [place] Diabetes Association (ADA) provides guidance for cutoff [...] Standards of Medical Care in Diabetes 2016, [place] Diabetes Association. Diabetes Care. 2016.39(Suppl 1). Performed By: #### 2 4323-8, 86508-8, 3051-0, 302-7 ####[facility] LABCLIA [id number] [place] [address] [place] Potassium [Moles/Vol] 5.1 mmol/L Normal 3.7-5.1 [facility] Comment on above: Order Comment: Speci men Type: BLOOD SPECIMENOrdering Facility: [facility] Address: [address] [place] [address] Performed By: #### 2 4323-8, 16644-4, 305-0, 7 ####[facility] LABIA [id number] [place] [address] [place] Protein [Mass/Vol] 7.2 g/dL Normal 6.3-8.0 [facility] Comment on above: Order Comment: Dennyi men Type: BLOOD SPECIMENOrdering Facility: [facility] Address: [address] [place] [address] Performed By: #### 2 4323-8, 80496-6, 305-0, 3027 ####[facility] LABCLIA [id number] [place] [address] [place] Sodium [Moles/Vol] 135 mmol/L Low 136-144 [facility] Comment on above: Order Comment: Speci men Type: BLOOD SPECIMENOrdering Facility: [facility] Address: [address] [place] [address] Performed By: #### 2 4323-8, 91672-1, 3051-0, 3024-7 ####[facility] LABCLIA [id number] [place] [address] [place] Urea nitrogen [Mass/Vol] 24 mg/dL High 7-21 [facility] Comment on above: Order Comment: Speci men Type: BLOOD SPECIMENOrdering Facility: [facility] Address: [address] [place] [address] Performed By: #### 2 4323-8, 67775-5, 3051-0, 3024-7 ####[facility] LABIA [id number] [place] [address] [place] Ferritin SerPl-mCncon 2023 Ferritin [Mass/Vol] 33.4 ng/mL Normal 14.7-205.1 [facility] Comment on above: Order Comment: Speci men Type: BLOOD SPECIMENOrdering Facility: [facility] Address: [address] [place] [address] Performed By: #### 2 276-4, 3016-3 ####[facility] LABIA [id number] [place] [address] [place] HbA1c (Bld)on 10-31-2023 Average glucose Estimated from glycated hemoglobin (Bld) [Mass/Vol] 278 mg/dL Normal [facility] Comment on above: Order Comment: Speci men Type: BLOOD SPECIMENOrdering Facility: [facility] Address: [address] [place] [address] Result Comment: eAG: (Estimated average glucose) is a calculated value from HgbA1c and is insurance representative of the average blood glucose level in the last 2-3 month period. Performed By: #### 5 5454-3 ####[facility] LABCLIA [id number] [place] [address] [place] HbA1c (Bld) [Mass fraction] 11.3 % High 4.3-5.6 [facility] Comment on above: Order Comment: Speci men Type: BLOOD SPECIMENOrdering Facility: [facility] Address: [address] [place] [address] Result Comment: [place] Diabetes Association guidelines indicate that patients with HgbA1c in the range 5.7-6.4% are at increased risk for development of diabetes, and intervention by lifestyle modification may be beneficial. HgbA1c greater or equal to 6.5% is considered diagnostic of diabetes. Performed By: #### 5 5454-3 ####[facility] LABCLIA [id number] [place] [address] [place] Iron and Iron binding capaci ty panelon 10-31-2023 Iron [Mass/Vol] 51 ug/dL Normal 41-186 [facility] Comment on above: Order Comment: Speci men Type: BLOOD SPECIMENOrdering Facility: [facility] Address: [address] [place] [address] Performed By: #### 2 4323-8, 23403-1, 3051-0, 3024-7 ####[facility] LABIA [id number] [place] [id number] [place] Iron binding capacity [Mass/Vol] 454 ug/dL High 232-386 [facility] Comment on above: Order Comment: Speci men Type: BLOOD SPECIMENOrdering Facility: [facility] Address: [address] [place] [address] Performed By: #### 2 4323-8, 22027-9, 3051-0, 3024-7 ####[facility] LABIA [id number] [place] [id number] [place] Iron/TIBC [Molar ratio] 11.2 % Low 15.0-57.0 C [facility] Comment on above: Order Comment: Speci men Type: BLOOD SPECIMENOrdering Facility: [facility] Address: [address] [place] [address] Performed By: #### 2 4323-8, 74937-1, 3051-0, 3024-7 ####[facility] LABCLIA [id number] [place] [address] [place] T3Free SerPl-mCncon 10-31-19 24 Free T3 [Mass/Vol] 2.3 pg/mL Normal 2.3-4.1 [facility] Comment on above: Order Comment: Speci men Type: BLOOD SPECIMENOrdering Facility: [facility] Address: [address] [place] [address] Performed By: #### 2 4323-8, 23847-7, 3051-0, 3024-7 ####[facility] LABIA [id number] [place] [address] [place] T4 Free SerPl-mCncon 024 Free T4 [Mass/Vol] 1.1 ng/dL Normal 0.9-1.7 [facility] Comment on above: Order Comment: Speci men Type: BLOOD SPECIMENOrdering Facility: [facility] Address: [address] [place] [address] Performed By: #### 2 4323-8, 34139-0, 3051-0, 302-7 ####[facility] LABIA [id number] [place] [address] [place] TSH SerPl-aCncon 10-31-2023 TSH Qn 3.250 m[IU]/L Normal 0.270-4.200 [facility] Comment on above: Order Comment: Speci men Type: BLOOD SPECIMENOrdering Facility: [facility] Address: [address] [place] [address] Performed By: #### 2 276-4, 3016-3 ####[facility] LABIA [id number] [place] [address] [place] CNPJenna 08-27-2023 CNPN Telephone (INTWS) STEVE VIEIRA ([id number]) 1945 F Date Time Provider Department 08/27/23 [...] may prefer to have this done at [facility] since transportation is an issue. Please see where she would like to do this and if preference is [facility] then fax order. Thanks. Augusto Ross Ma 08/27/2023 12:34 PM Signed Left message to call office. 08/27/2023 12:34 PM Gema Spain Ma 09/01/2023 10:22 AM Signed Both pt and her son notified. Order for US faxed to [facility]. They will call to schedule. Pt need refill on Trulicity. Gema Vuong Ma, Ma 09/01/2023 10:23 AM Signed Addended by: GEMA SPAIN MA on: 09/01/2023 10:23 AM Modules accepted: Orders Orin Sosa APRN.MOLDER 09/01/2023 10:52 AM Signed Addended by: ORIN [...] (HCC) [E11.9] Order(s):US ABD RIGHT UPPER QUADRANT [[id number]] Order #: [id number] FUTURE dulaglutide (TRULICITY) 3 mg/0.5 mL pen injectorInject 3 mg subcutaneously one time a week. Gets through [employer] PAP.Disp: 4 EachRfl: 3 Prescriptions as of 09/01/2023 - dulaglutide (TRULICITY) 3 mg/0.5 mL pen injector Inject 3 mg subcutaneously one time a week. Gets through [employer] PAP. - levothyroxine (SYNTHROID) 25 mcg tablet [...] by mouth daily with breakfast. Gets through [employer] PAP. - ferrous sulfate 325 mg (65 [...] a week. Gets through [employer] PAP. Medications Discontinued During This Encounter Prescriptions - insulin lispr (more content not included)... Normal [facility] 25(OH)D3 [facility] 25-hydroxyvitamin D3 [Mass/Vol] 24.4 ng/mL Low 31.0-80.0 [facility] Comment on above: Order Comment: Speci men Type: BLOOD SPECIMENOrdering Facility: [facility] Address: [address] [place] [address] Result Comment: Clas sification of 25 OH Vitamin D status: Deficiency/Insufficiency: < or = 30 ng/ml. Sufficiency/Optimal Levels: 31-80 ng/mL Toxicity: > 100 ng/mL. Test performed by chemiluminescent immunoassay. Performed By: #### 1 989-3 ####[facility] LABCLIA [id number] [place] [address] [place] CBC W Auto Differential pane l (Bld)on 08-25-2023 Basophils (Bld) [#/Vol] 0.04 10*3/uL Normal <0.11 [facility] Comment on above: Order Comment: Speci men Type: BLOOD SPECIMEN [facility] Address: [address] [place] [address] Performed By: #### 1 989-3 #### [facility] LAB CLIA [id number] [address] [place] [address] [place] Basophils/100 WBC (Bld) 0.7 % Normal [facility] Comment on above: Order Comment: Speci men Type: BLOOD SPECIMEN [facility] Address: [address] [place] [address] Performed By: #### 1 989-3 #### [facility] LAB CLIA [id number] [address] [place] [address] [place] Differential cell count method Nom (Bld) Auto Normal [facility] Comment on above: Order Comment: Speci men Type: BLOOD SPECIMEN [facility] Address: [address] [place] [address] Performed By: #### 1 989-3 #### [facility] LAB CLIA [id number] [address] [place] [address] [place] Eosinophils (Bld) [#/Vol] 0.09 10*3/uL Normal <0.46 [facility] Comment on above: Order Comment: Speci men Type: BLOOD SPECIMEN [facility] Address: [address] [place] [address] Performed By: #### 1 989-3 #### [facility] LAB CLIA [id number] [address] [place] [address] [place] Eosinophils/100 WBC (Bld) 1.7 % Normal [facility] Comment on above: Order Comment: Speci men Type: BLOOD SPECIMEN [facility] Address: [address] [place] [address] Performed By: #### 1 989-3 #### [facility] LAB CLIA [id number] [address] [place] [address] [place] Erythrocyte distribution width (RBC) [Ratio] 20.3 % High 11.5-15.0 [facility] Comment on above: Order Comment: Speci men Type: BLOOD SPECIMEN [facility] Address: [address] [place] [address] Performed By: #### 1 989-3 #### [facility] LAB CLIA [id number] [address] [place] [address] [place] Hematocrit (Bld) [Volume fraction] 36.0 % Normal 36.0-46.0 [facility] Comment on above: Order Comment: Speci men Type: BLOOD SPECIMEN [facility] Address: [address] [place] [address] Performed By: #### 1 989-3 #### [facility] LAB CLIA [id number] [address] [place] [address] [place] Hemoglobin (Bld) [Mass/Vol] 10.4 g/dL Low 11.5-15.5 [facility] Comment on above: Order Comment: Speci men Type: BLOOD SPECIMEN [facility] Address: [address] [place] [address] Performed By: #### 1 989-3 #### [facility] LAB CLIA [id number] [address] [place] [address] [place] Immature granulocytes (Bld) [#/Vol] 0.04 10*3/uL Normal <0.10 [facility] Comment on above: Order Comment: Speci men Type: BLOOD SPECIMEN [facility] Address: [address] [place] [address] Performed By: #### 1 989-3 #### [facility] LAB CLIA [id number] [address] [place] [address] [place] Immature granulocytes/100 WBC (Bld) 0.7 % Normal [facility] Comment on above: Order Comment: Speci men Type: BLOOD SPECIMEN [facility] Address: [address] [place] [address] Performed By: #### 1 989-3 #### [facility] LAB CLIA [id number] [address] [place] [address] [place] Lymphocytes (Bld) [#/Vol] 1.20 10*3/uL Normal 1.00-4.00 [facility] Comment on above: Order Comment: Speci men Type: BLOOD SPECIMEN [facility] Address: [address] [place] [address] Performed By: #### 1 989-3 #### [facility] LAB CLIA [id number] [address] [place] [address] [place] Lymphocytes/100 WBC (Bld) 22.4 % Normal [facility] Comment on above: Order Comment: Speci men Type: BLOOD SPECIMEN [facility] Address: [address] [place] [address] Performed By: #### 1 989-3 #### [facility] CLIA [id number] [address] [place] [address] [place] MCH (RBC) [Entitic mass] 25.7 pg Low 26.0-34.0 [facility] Comment on above: Order Comment: Speci men Type: BLOOD SPECIMEN [facility] Address: [address] [place] [address] Performed By: #### 1 989-3 #### [facility] LAB CLIA [id number] [address] [place] [address] [place] MCHC (RBC) [Mass/Vol] 28.9 g/dL Low 30.5-36.0 [facility] Comment on above: Order Comment: Speci men Type: BLOOD SPECIMEN [facility] Address: [address] [place] [address] Performed By: #### 1 989-3 #### [facility] CLIA [id number] [address] [place] [address] [place] MCV (RBC) [Entitic vol] 89.1 fL Normal 80.0-100.0 C [facility] Comment on above: Order Comment: Speci men Type: BLOOD SPECIMEN [facility] Address: [address] [place] [address] Performed By: #### 1 989-3 #### [facility] CLIA [id number] [facility] [place] [address] [place] Monocytes (Bld) [#/Vol] 0.34 10*3/uL Normal <0.87 [facility] Comment on above: Order Comment: Speci men Type: BLOOD SPECIMEN [facility] Address: [address] [place] [address] Performed By: #### 1 989-3 #### [facility] CLIA [id number] [address] [place] [address] [place] Monocytes/100 WBC (Bld) 6.4 % Normal C [facility] Comment on above: Order Comment: Speci men Type: BLOOD SPECIMEN [facility] Address: [address] [place] [address] Performed By: #### 1 989-3 #### [facility] CLIA [id number] [address] [place] [address] [place] Neutrophils (Bld) [#/Vol] 3.64 10*3/uL Normal 1.45-7.50 [facility] Comment on above: Order Comment: Speci men Type: BLOOD SPECIMEN [facility] Address: [address] [place] [address] Performed By: #### 1 989-3 #### [facility] CLIA [id number] [address] [place] [address] [place] Neutrophils/100 WBC (Bld) 68.1 % Normal [facility] Comment on above: Order Comment: Speci men Type: BLOOD SPECIMEN [facility] Address: [address] [place] [address] Performed By: #### 1 989-3 #### [facility] CLIA [id number] [address] [place] [address] [place] Nucleated RBC (Bld) [#/Vol] 10*3/uL Normal <0.01 [facility] Comment on above: Order Comment: Speci men Type: BLOOD SPECIMEN [facility] Address: [address] [place] [address] Performed By: #### 1 989-3 #### [facility] CLIA [id number] [address] [place] [address] [place] Nucleated RBC/100 WBC (Bld) [Ratio] 0.0 /100 WBC Normal [facility] Comment on above: Order Comment: Speci men Type: BLOOD SPECIMEN [facility] Address: [address] [place] [address] Performed By: #### 1 989-3 #### [facility] CLIA [id number] [address] [place] [address] [place] Platelet mean volume (Bld) [Entitic vol] 11.1 fL Normal 9.0-12.7 [facility] Comment on above: Order Comment: Speci men Type: BLOOD SPECIMEN [facility] Address: [address] [place] [address] Performed By: #### 1 989-3 #### [facility] CLIA [id number] [address] [place] [address] [place] Platelets (Bld) [#/Vol] 247 10*3/uL Normal 150-400 [facility] Comment on above: Order Comment: Speci men Type: BLOOD SPECIMEN [facility] Address: [address] [place] [address] Performed By: #### 1 989-3 #### [facility] CLIA [id number] [address] [place] [address] [place] RBC (Bld) [#/Vol] 4.04 10*6/uL Normal 3.90-5.20 [facility] Comment on above: Order Comment: Speci men Type: BLOOD SPECIMEN [facility] Address: [address] [place] [address] Performed By: #### 1 989-3 #### [facility] CLIA [id number] [address] [place] [address] [place] WBC (Bld) [#/Vol] 5.35 10*3/uL Normal 3.70-11.00 [facility] Comment on above: Order Comment: Speci men Type: BLOOD SPECIMEN [facility] Address: [address] [place] [address] Performed By: #### 1 989-3 #### [facility] CLIA [id number] [address] [place] [address] [place] CNOVon 08-25-2023 CNOV Office Visit (INTMWS ) STEVE VIEIRA ([id number]) 1945 F Date Time Provider Department 08/25/23 11:40 AM ORIN SOSA During your visit today, we recorded the following information about you: Pulse Respiration Blood pressure Weight 97/minute 16/minute 101/65 60.3 kg Orin Sosa APRN.MOLDER 08/25/2023 12:56 PM Signed SUBJECTIVE Steve Vieira is a 78 year old female here today for a check up on her medical problems. Chief Complaint Patient presents with: [facility] follow up - UTI HPI Steve Vieira is a 78 year old female. She is an established patient of Peter Ellis MD. Here today for follow up, she is a poor historian. Recently seen at [facility] on 08/15, records viewed in care everywhere and found she was admitted 08/15 with discharge 08/16 or 08/17. Diagnosis of dehydration, weakness, hyperglycemia, acute UTI and failure to thrive. There is concerns of her living by herself currently and needing to change her current living situation to promote safety. She was discharged to a SNF ([facility]) 08/16 and unclear when she was discharged [...] the SNF. She did have HHC with [facility], SW is involved. APS did come [...] by mouth daily with breakfast. Gets through [employer] PAP. ferrous sulfate 325 mg (65 [...] less dar (more content not included)... Normal [facility] CNPNon 08-25-2023 CNPN Telephone (NAVWST) STEVE VIEIRA ([id number]) 1945 F Date Time Provider Department 08/25/23 SHERWIN CHE During your visit today, we recorded the following information about you: Sherwin Che, OSITO 08/25/2023 1:20 PM [facility]igned [facility]. Does not have a single support person in the [facility]. Dog had been removed from patient [...] she has now discharged patient from their [facility] services. Lesli Dong also notes that they are not allowed to accept patient back. LESLI Dong notes son Salomón Lott-Lives in [place] ph. [phone]. Sherwin Che, OSITO 08/25/2023 1:32 PM Signed Lesli spoke with Caio Wang JFS, APS and she notes that if Dr. Ellis feels like patient is in need of guardian Felipe would need statement of expert eval for guardianship. TREAV Wang notes that she is not able to move further with helping patient without statement of expert of eval. This Sw noted she will send note to MILLA Beckford and or Dr. Ellis to address this for further assistance. Orin Sosa APRN.MOLDER 08/25/2023 2:02 PM Signed I don't mind completing an expert eval statement but I would like to talk with her son first to discuss the situation with him. I will reach out to her son this afternoon. Orin Sosa APRN.MOLDER 08/25/2023 4:01 PM Signed I called and spoke with patient's son Salomón, we discussed the concerns from her visit today. He voiced agreement that she should not be living on her own. He stated that no POA paperwork has been done because the patient did not want to do the paperwork when he was visiting last summer from [place]. At this point we did agree that [...] Lesli located statement of expert evaluation on [facility] website. Lesli will check with APS and see if [employer] is able to complete evaluation or if Dr. Ellis needs to complete. Sherwin Che, MANAGED SERVICES CONSULTANT 08/26/2023 10:21 AM Signed Lesli spoke with TREVA Wang and she notes that [employer] are not able to complete expert evaluation forms for guardianship. Those have to be completed by MD's. Lesli will see what Dr. Ellis has to say about completing expert evaluation form. Sherwin Che, MANAGED SERVICES CONSULTANT 08/27/2023 11:04 AM Signed Lesli placed Statement of Expert Evaluation forms on [facility] [facility] desk to complete with Dr. Ellis. Orin Sosa APRN.MOLDER 08/29/2023 2:44 PM Signed Sherwin, we have completed this, do you plan to reach back out to APS or do I need to contact them? Sherwin Che, MANAGED SERVICES CONSULTANT 08/29/2023 3:05 PM Signed You could call TREVA Wang ph. [phone] and let her know you have completed and where she would like you to send forms. That way if she has any questions in regards to forms, you would be able to answer them. Orin Sosa APRN.MOLDER 08/29/2023 3:35 PM Signed Called and spoke with Felipe with APS to update, we are sending a copy of the expert evaluation via fax today (send to [phone]) and via mail. Discussed that son, Salomón, is willing to assume guardianship and she will include that with the application for guardianship. Sherwin Che, [facility] [place] 08/29/2023 4:28 PM Signed Is there anything further you would like Sw to assist with regarding this note, or can we close note? Orin Sosa APRN.MOLDER 08/29/2023 4:30 PM Signed I will close [...] for Visit: Patient Update [1234] Patient Question [8507] Prescriptions as of 08/29/2023 - levothyroxine (SYNTHROID) 25 mcg tablet Take 1 tablet by mouth every Friday,Friday, ay. Take on empty stomach. For thyroid. Add to the levothyroxine 50 mcg once daily dosing but j (more content not included)... Normal [facility] metabolic 2000 panelon 08-25-2023 Albumin [Mass/Vol] 4.0 g/dL Normal 3.9-4.9 [facility] Comment on above: Order Comment: Speci men Type: BLOOD SPECIMENOrdering Facility: [facility] Address: [address] [place] [address] Performed By: #### 3 051-0, 3024-7, 49858-4, 28285-8 ####[facility] LABCLIA [id number] [place] [address] [place] ALP [Catalytic activity/Vol] 334 U/L High 34-123 [facility] Comment on above: Order Comment: Speci men Type: BLOOD SPECIMENOrdering Facility: [facility] Address: [address] [place] [address] Performed By: #### 3 051-0, 3024-7, 27474-0, 71755-2 ####[facility] LABIA [id number] [place] [address] [place] ALT [Catalytic activity/Vol] 68 U/L High 7-38 [facility] Comment on above: Order Comment: Speci men Type: BLOOD SPECIMENOrdering Facility: [facility] Address: [address] [place] [address] Performed By: #### 3 051-0, 3024-7, 14560-4, 18694-3 ####[facility] LABIA [id number] [place] [address] [place] Anion gap [Moles/Vol] 12 mmol/L Normal 9-18 [facility] Comment on above: Order Comment: Speci men Type: BLOOD SPECIMENOrdering Facility: [facility] Address: [address] [place] [address] Performed By: #### 3 051-0, 3024-7, 41746-5, 52619-1 ####[facility] LABIA [id number] [place] [address] [place] AST [Catalytic activity/Vol] 100 U/L High 13-35 [facility] Comment on above: Order Comment: Speci men Type: BLOOD SPECIMENOrdering Facility: [facility] Address: [address] [place] [address] Performed By: #### 3 051-0, 3024-7, 73943-1, 11726-5 ####[facility] LABCLIA [id number] [place] [address] [place] Bilirubin [Mass/Vol] 0.6 mg/dL Normal 0.2-1.3 [facility] Comment on above: Order Comment: Speci men Type: BLOOD SPECIMENOrdering Facility: [facility] Address: [address] [place] [address] Performed By: #### 3 051-0, 3024-7, 78355-4, 75703-2 ####[facility] LABIA [id number] [place] [address] [place] Calcium [Mass/Vol] 10.0 mg/dL Normal 8.5-10.2 [facility] Comment on above: Order Comment: Speci men Type: BLOOD SPECIMENOrdering Facility: [facility] Address: [address] [place] [address] Performed By: #### 3 051-0, 3024-7, 86317-9, 17728-1 ####[facility] LABCLIA [id number] [place] [address] [place] Chloride [Moles/Vol] 100 mmol/L Normal 97-105 [facility] Comment on above: Order Comment: Speci men Type: BLOOD SPECIMENOrdering Facility: [facility] Address: [address] [place] [address] Performed By: #### 3 051-0, 3024-7, 45552-6, 90283-0 ####[facility] LABCLIA [id number] [place] [address] [place] CO2 [Moles/Vol] 23 mmol/L Normal 22-30 [facility] Comment on above: Order Comment: Speci samaria Type: BLOOD SPECIMENOrdering Facility: [facility] Address: [address] [place] [address] Performed By: #### 3 051-0, 3024-7, 83629-1, 30721-1 ####[facility] LABCLIA [id number] [place] [address] [place] Creatinine [Mass/Vol] 0.59 mg/dL Normal 0.58-0.96 [facility] Comment on above: Order Comment: Speci men Type: BLOOD SPECIMENOrdering Facility: [facility] Address: [address] [place] [address] Performed By: #### 3 051-0, 3024-7, 87521-2, 26693-3 ####[facility] LABIA [id number] [place] [address] [place] Creatinine and Glomerular filtration rate.predicted panel (S/P/Bld) 91 mL/min/1.73m??? Normal >=60 [facility] Comment on above: Order Comment: Sudhakar mera Type: BLOOD SPECIMENOrdering Facility: [facility] Address: [address] [place] [address] Result Comment: Audra mated Glomerular Filtration Rate [...] GFR. Performed By: #### 3 051-0, 3024-7, 96006-2, 06393-4 ####[facility] LABCLIA [id number] [place] [id number] [place] Glucose [Mass/Vol] 312 mg/dL High 74-99 [facility] Comment on above: Order Comment: Speci men Type: BLOOD SPECIMENOrdering Facility: [facility] Address: [address] [place] [address] Result Comment: The [place] Diabetes Association (ADA) provides guidance for cutoff [...] Standards of Medical Care in Diabetes 2016, [place] Diabetes Association. Diabetes Care. 2016.39(Suppl 1). Performed By: #### 3 051-0, 3024-7, 62418-9, 16422-3 ####[facility] LABIA [id number] [place] [address] [place] Potassium [Moles/Vol] 5.1 mmol/L Normal 3.7-5.1 [facility] Comment on above: Order Comment: Sudhakar mera Type: BLOOD SPECIMENOrdering Facility: [facility] Address: [address] [place] [address] Performed By: #### 3 051-0, 3024-7, 34274-3, 18296-6 ####[facility] LABIA [id number] [place] [address] [place] Protein [Mass/Vol] 7.3 g/dL Normal 6.3-8.0 [facility] Comment on above: Order Comment: Sudhakar mera Type: BLOOD SPECIMENOrdering Facility: [facility] Address: [address] [place] [address] Performed By: #### 3 051-0, 3024-7, 53581-5, 11458-7 ####[facility] LABCLIA [id number] [place] [address] [place] Sodium [Moles/Vol] 135 mmol/L Low 136-144 [facility] Comment on above: Order Comment: Dennyi men Type: BLOOD SPECIMENOrdering Facility: [facility] Address: [address] [place] [address] Performed By: #### 3 051-0, 3024-7, 92884-4, 85075-3 ####[facility] LABCLIA [id number] [place] [address] [place] Urea nitrogen [Mass/Vol] 23 mg/dL High 7-21 [facility] Comment on above: Order Comment: Dennyi men Type: BLOOD SPECIMENOrdering Facility: [facility] Address: [address] [place] [address] Performed By: #### 3 051-0, 3024-7, 52092-4, 35593-1 ####[facility] LABIA [id number] [place] [address] [place] HbA1c (Bld)on 08-25-2023 Average glucose Estimated from glycated hemoglobin (Bld) [Mass/Vol] 266 mg/dL Normal [facility] Comment on above: Order Comment: Sudhakar mera Type: BLOOD SPECIMENOrdering Facility: [facility] Address: [address] [place] [address] Result Comment: eAG: (Estimated average glucose) is a calculated value from HgbA1c and is insurance representative of the average blood glucose level in the last 2-3 month period. Performed By: #### 5 5454-3 ####[facility] LABCLIA [id number] [place] [address] [place] HbA1c (Bld) [Mass fraction] 10.9 % High 4.3-5.6 [facility] Comment on above: Order Comment: Sudhakar mera Type: BLOOD SPECIMENOrdering Facility: [facility] Address: [address] [place] [address] Result Comment: [place] Diabetes Association guidelines indicate that patients with HgbA1c in the range 5.7-6.4% are at increased risk for development of diabetes, and intervention by lifestyle modification may be beneficial. HgbA1c greater or equal to 6.5% is considered diagnostic of diabetes. Performed By: #### 5 5454-3 ####[facility] LABCLIA [id number] [place] [id number] [place] Iron and Iron binding capaci ty panelon 08-25-2023 Iron [Mass/Vol] 118 ug/dL Normal 41-186 [facility] Comment on above: Order Comment: Speci men Type: BLOOD SPECIMENOrdering Facility: [facility] Address: [address] [place] [address] Performed By: #### 3 051-0, 3024-7, 28188-6, 55172-7 ####[facility] [id number] [place] [address] [place] Iron binding capacity [Mass/Vol] 427 ug/dL High 232-386 [facility] Comment on above: Order Comment: Speci men Type: BLOOD SPECIMENOrdering Facility: [facility] Address: [address] [place] [address] Performed By: #### 3 051-0, 3024-7, 67658-6, 52282-5 ####[facility] LABIA [id number] [place] [address] [place] Iron/TIBC [Molar ratio] 27.6 % Normal 15.0-57.0 [facility] Comment on above: Order Comment: Speci men Type: BLOOD SPECIMENOrdering Facility: [facility] Address: [facility] [place] [address] Performed By: #### 3 051-0, 302-7, 70178-0, 57409-6 ####[facility] LABIA [id number] [place] [id number] [place] Magnesium SerPl-mCncon 08-25 Magnesium [Mass/Vol] 2.1 mg/dL Normal 1.7-2.3 [facility] Comment on above: Order Comment: Speci men Type: BLOOD SPECIMENOrdering Facility: [facility] Address: [address] [place] [address] Performed By: #### 2 132-9, 3015-3, ####[facility] LABCLIA [id number] [place] [address] [place] T3Free SerPl-mCncon 08-25-19 24 Free T3 [Mass/Vol] 2.7 pg/mL Normal 2.3-4.1 [facility] Comment on above: Order Comment: Speci men Type: BLOOD SPECIMENOrdering Facility: [facility] Address: [address] [place] [address] Performed By: #### 3 051-0, 3024-7, 39046-3, 64111-1 ####[facility] LABCLIA [id number] [place] [address] [place] T4 Free SerPl-mCncon 024 Free T4 [Mass/Vol] 1.1 ng/dL Normal 0.9-1.7 [facility] Comment on above: Order Comment: Speci men Type: BLOOD SPECIMENOrdering Facility: [facility] Address: [address] [place] [address] Performed By: #### 3 051-0, 3024-7, 48542-7, 89835-1 ####[facility] LABCLIA [id number] [place] [address] [place] TSH SerPl-aCncon 08-25-2023 TSH Qn 4.540 m[IU]/L High 0.270-4.200 [facility] Comment on above: Order Comment: Speci men Type: BLOOD SPECIMENOrdering Facility: [facility] Address: [address] [place] [address] Performed By: #### 2 132-9, 3015-3, ####[facility] LABCLIA [id number] [place] [address] [place] Vit B12 SerPl-ncon 024 Cobalamin (Vitamin B12) [Mass/Vol] 456 pg/mL Normal 232-1245 [facility] Comment on above: Order Comment: Speci men Type: BLOOD SPECIMENOrdering Facility: [facility] Address: [address] [place] [address] Performed By: #### 2 132-9, 3016-3, 80574-4 ####[facility] LABCLIA [id number] [place] [address] [place] Thin prep Papanicolaou smear with manual screeningOrdered By: Carl Couch on 08-16-2023 Thin prep Papanicolaou smear with manual screening 361 mg/dL 74-106 [facility] Comment on above: MANAGEMENT OF PATIEN T CARE PER NURSING PROTOCOL Absolute lymphocyte countOrd ered By: Mitzy Perez on 08-15-2023 Lymphocytes Auto (Unsp spec) [#/Vol] 0.83 10*3/uL 0.83-4.51 [facility] Automated lymphocyte count a s percentage of total leukocytesOrdered By: Mitzy Perez on 08-15-2023 Lymphocytes/100 WBC Auto (Unsp spec) 18.4 % 19-41 [facility] Basophil percentageOrdered B y: Mitzy Perez on 08-15-2023 Basophil percentage 2.6 mg/dL 2.5-4.9 [facility] Basophils/100 WBC (Bld) 0.7 % 0-1 [facility] Bilirubin [Mass/Vol] 0.70 mg/dL 0.20-1.00 [facility] Comment on above: For patients on eltr ombopag therapy, use of Dimension [place] TBIL is not recommended. Chloride [Moles/Vol] 102 mmol/L 98-107 [facility] Eosinophils/100 WBC (Bld) 1.5 % 0-5 [facility] Glucose [Mass/Vol] 344 mg/dL 74-106 [facility] Comment on above: Glucose result great er than or equal to 200 mg/dLsuggests DIABETES MELLITUS per A.D.A. criteria. Hemoglobin (Bld) [Mass/Vol] 9.6 g/dL 12.0-15.0 [facility] Monocytes/100 WBC (Bld) 6.9 % 0-[address] [facility] Neutrophils (Bld) [#/Vol] 3.2 10*3/uL 2.0-7.7 [facility] Neutrophils/100 WBC (Bld) 71.6 % 47-70 [facility] Potassium [Moles/Vol] 3.7 mmol/L 3.5-5.1 [facility] Protein [Mass/Vol] 6.2 g/dL 6.4-8.2 [facility] Sodium [Moles/Vol] 134 mmol/L 136-145 [facility] WBC (Bld) [#/Vol] 4.5 10*3/uL 4.4-11.0 [facility] Basophil percentageOrdered B y: oLla Bestjanice on 08-15-2023 Chloride [Moles/Vol] 101 mmol/L 98-107 [facility] Glucose [Mass/Vol] 681 mg/dL 74-106 [facility] Comment on above: Critical Result(s) C alled at: 00:43:24 08/15/2023 by: Debra Canela to Cole Sutton. Results read back by same.Glucose result greater than or equal to 200 mg/dLsuggests DIABETES MELLITUS per A.D.A. criteria. Potassium [Moles/Vol] 4.6 mmol/L 3.5-5.1 [facility] Sodium [Moles/Vol] 135 mmol/L 136-145 [facility] Determination of erythrocyte mean corpuscular volume (MCV)Ordered By: Mitzy Perez on 08-15-2023 MCV (RBC) [Entitic vol] 84.0 fL 81-[address] [facility] Erythrocyte distribution wid th ratioOrdered By: Mitzy Perez on 08-15-2023 Erythrocyte distribution width (RBC) [Ratio] 19.0 % 11.6-14.6 [facility] Erythrocyte distribution wid th standard deviationOrdered By: Mitzy Perez on 08-15-2023 Erythrocyte distribution width (RBC) [Entitic vol] 57.0 fL 35.1-43.9 [facility] Hematocrit Auto (Bld) [Volum e fraction]Ordered By: Mitzy Perez on 08-15-2023 Hematocrit (Bld) [Volume fraction] 31.6 % 37-47 [facility] Immature granulocytes/100 WB C Auto (Bld)Ordered By: Mitzy Perez on 08-15-2023 Immature granulocytes/100 WBC (Bld) 0.900 % 0.0-0.9 [facility] Comment on above: IG% - Immature Granu locytes (promyelocytes, myelocytes and metamyelocytes) > 1% indicates that a LEFT SHIFT is Present. Laboratory - Chemistry and C hemistry - challengeOrdered By: Mitzy Perez on 08-15-2023 Albumin/Globulin [Mass ratio] 0.7 {ratio} 0.9-2.4 [facility] ALP [Catalytic activity/Vol] 273 U/L 45-117 [facility] ALT [Catalytic activity/Vol] 91 U/L 13-56 [facility] CO2 [Moles/Vol] 28.0 mmol/L 21.0-32.0 [facility] Globulin (S) [Mass/Vol] 3.6 g/dL 2.2-4.2 [facility] Magnesium [Mass/Vol] 1.9 mg/dL 1.6-2.6 [facility] Urea nitrogen/Creatinine [Mass ratio] 31.3 mg/mg 10-20 [facility] Laboratory - Chemistry and C hemistry - challengeOrdered By: Lola Marquez on 08-15-2023 CO2 [Moles/Vol] 27.0 mmol/L 21.0-32.0 [facility] Urea nitrogen/Creatinine [Mass ratio] 27.0 mg/mg 10-20 [facility] Laboratory - Hematology and Cell countsOrdered By: Mitzy Perez on 08-15-2023 MCH (RBC) [Entitic mass] 25.5 pg 27.0-32.0 [facility] MCHC (RBC) [Mass/Vol] 30.4 g/dL 32-36 [facility] Nucleated RBC/100 WBC (Bld) [Ratio] 0 % 0-5 [facility] Platelet mean volume (Bld) [Entitic vol] 11.7 fL 6.2-12.0 [facility] Platelets (Bld) [#/Vol] 144 10*3/uL 150-450 [facility] No Panel InformationOrdered By: Mitzy Perez on 08-15-2023 Estimated Creatinine Clearance Calc 46.31 ml/min [facility] Estimated GFR (MDRD) Amer 103 mL/min >60 [facility] Comment on above: GFR Calc Estimated GFR (MDRD) Non-Af Amer 85 mL/min >60 [facility] Comment on above: Non- GFR Calc No Panel InformationOrdered By: Lola Marquez on 08-15-2023 Estimated Creatinine Clearance Calc 42.48 ml/min [facility] Estimated GFR (MDRD) Amer 79 mL/min >60 [facility] Comment on above: GFR Calc Estimated GFR (MDRD) Non-Af Amer 65 mL/min >60 [facility] Comment on above: Non- GFR Calc Troponin I High Sensitivity 8 pg/mL 3.0-54.0 [facility] Comment on above: Please Note: New Bee t Units and Gender Specific Reference Ranges. For more information see Policy Stat Procedure [place] High Sensitivity Troponin (TNIH) and attachments. RBC Auto (Bld) [#/Vol]Ordere d By: Mitzy Perez on 08-15-2023 RBC (Bld) [#/Vol] 3.76 10*6/uL 4.2-5.4 [facility] Serum or plasma calcium sonu urement (mass/volume)Ordered By: Mitzy Perez on 08-15-2023 Calcium [Mass/Vol] 8.9 mg/dL 8.5-10.1 [facility] Serum or plasma calcium sonu urement (mass/volume)Ordered By: Lola Marquez on 08-15-2023 Calcium [Mass/Vol] 10.1 mg/dL 8.5-10.1 [facility] Serum or plasma creatinine m easurement (mass/volume)Ordered By: Mitzy Perez on 08-15-2023 Creatinine [Mass/Vol] 0.70 mg/dL 0.55-1.02 [facility] Comment on above: The validity of the calculated GFR & GFRAA in patients over 70 years has not been determined. Clinical correlation is essential. Serum or plasma creatinine m easurement (mass/volume)Ordered By: Lola Marquez on 08-15-2023 Creatinine [Mass/Vol] 0.89 mg/dL 0.55-1.02 [facility] Comment on above: The validity of the calculated GFR & GFRAA in patients over 70 years has not been determined. Clinical correlation is essential. Serum or plasma thyroid stim ulating hormone (TSH) measurement (units/volume)Ordered By: Mitzy Perez on 08-15-2023 TSH Qn 4.32 uIU/mL 0.358-3.74 [facility] Serum or plasma urea nitroge n measurement (mass/volume)Ordered By: Mitzy Perez on 08-15-2023 Urea nitrogen [Mass/Vol] 22 mg/dL 01-14 [facility] Serum or plasma urea nitroge n measurement (mass/volume)Ordered By: Lola Marquez on 08-15-2023 Urea nitrogen [Mass/Vol] 24 mg/dL 01-14 [facility] Thin prep Papanicolaou smear with manual screeningOrdered By: Mitzy Perez on 08-15-2023 Thin prep Papanicolaou smear with manual screening 2.6 g/dL 3.2-5.0 [facility] Thin prep Papanicolaou smear with manual screening 102 U/L 15-37 [facility] Thin prep Papanicolaou smear with manual screening 4 -15 [facility] Thin prep Papanicolaou smear with manual screening > 500 mg/dL 74-106 [facility] Comment on above: Dr Earle Damon NAGEMENT OF PATIENT CARE PER NURSING PROTOCOL Thin prep Papanicolaou smear with manual screeningOrdered By: Lola Marquez on 08-15-2023 Thin prep Papanicolaou smear with manual screening 7 -15 [facility] Whole blood hemoglobin A1c/t otal hemoglobin ratio (mass fraction)Ordered By: Carl Couch on 08-15-2023 HbA1c (Bld) [Mass fraction] 11.7 % 3.8-5.6 [facility] Comment on above: Normal < 5.7 % Predi abetic 5.7 - 6.4 % Diabetic >or= 6.5 % Please note range changes. Absolute lymphocyte countOrd ered By: Lola Marquez on 08-14-2023 Lymphocytes Auto (Unsp spec) [#/Vol] 0.75 10*3/uL 0.83-4.51 [facility] Automated lymphocyte count a s percentage of total leukocytesOrdered By: Lola Marquez on 08-14-2023 Lymphocytes/100 WBC Auto (Unsp spec) 17.4 % 19-41 [facility] Basophil percentageOrdered B y: Lola Marquez on 08-14-2023 Basophil percentage 25-50 SEEN /hpf 0-5 [facility] Basophils/100 WBC (Bld) 0.5 % 0-1 [facility] Eosinophils/100 WBC (Bld) 1.4 % 0-5 [facility] Hemoglobin (Bld) [Mass/Vol] 10.7 g/dL 12.0-15.0 [facility] Monocytes/100 WBC (Bld) 10.7 % 0-10 [facility] Neutrophils (Bld) [#/Vol] 3.0 10*3/uL 2.0-7.7 [facility] Neutrophils/100 WBC (Bld) 69.3 % 47-70 [facility] WBC (Bld) [#/Vol] 4.3 10*3/uL 4.4-11.0 [facility] Bilirubin Test strip Ql (U)O rdered By: Lola Marquez on 08-14-2023 Bilirubin Ql (U) Negative Negative [facility] CNPNon 08-14-2023 CNPN Telephone (INTMWS) STEVE VIEIRA ([id number]) 1945 F Date Time Provider Department 08/14/23 PETER ELLIS INTMWS During your visit today, we recorded the following information about you: Melina Keys, RN 08/14/2023 12:13 PM Signed Letitia BALLESTEROS from [facility] calls and states that she was out to see patient today for 3 hours. Letitia reports that patient is not safe to at home but is refusing to go to [facility]. Letitia reports that living conditions are unlivable. [...] Please review and advise, SHANNON Eric Terri, CLOTH SHRINKING MACHINE OPERATOR.MARKETING DATABASE ANALYST 08/14/2023 3:00 PM Signed OK for SW. If she currently ill and needing to return to the hospital? If so recommend, may be able to transition to SNF from hospital. Sharon Mayer RN 08/14/2023 3:24 PM Signed Letitia BALLESTEROS from [facility] called and is notified of [...] by mouth daily with breakfast. Gets through [employer] [facility]. - ferrous sulfate 325 mg [...] Status:Closed by SHARON MAYER on 08/14/23 Normal [facility] Culture, urineOrdered By: Ginger Marquez on 08-14-2023 Bacteria identified Cx Nom (U) Klebsiella pneumoniae sp pneum [facility] Determination of erythrocyte mean corpuscular volume (MCV)Ordered By: Lola Marquez on 08-14-2023 MCV (RBC) [Entitic vol] 84.2 fL 81-99 [facility] Erythrocyte distribution wid th ratioOrdered By: Lola Marquez on 08-14-2023 Erythrocyte distribution width (RBC) [Ratio] 19.8 % 11.6-14.6 [facility] Erythrocyte distribution wid th standard deviationOrdered By: Lola Marquez on 08-14-2023 Erythrocyte distribution width (RBC) [Entitic vol] 58.6 fL 35.1-43.9 [facility] Hematocrit Auto (Bld) [Volum e fraction]Ordered By: Lola Marquez on 08-14-2023 Hematocrit (Bld) [Volume fraction] 36.9 % 37-47 [facility] Immature granulocytes/100 WB C Auto (Bld)Ordered By: Lola Marquez on 08-14-2023 Immature granulocytes/100 WBC (Bld) 0.700 % 0.0-0.9 [facility] Comment on above: IG% - Immature Granu locytes (promyelocytes, myelocytes and metamyelocytes) > 1% indicates that a LEFT SHIFT is Present. Ketones Test strip Ql (U)Ord ered By: Lola Marquez on 08-14-2023 Ketones Ql (U) 5 mg/dl Negative [facility] Laboratory - Hematology and Cell countsOrdered By: Lola Marquez on 08-14-2023 MCH (RBC) [Entitic mass] 24.4 pg 27.0-32.0 [facility] MCHC (RBC) [Mass/Vol] 29.0 g/dL 32-36 [facility] Comment on above: Delta: 27.5 on 08/11-0518 Nucleated RBC/100 WBC (Bld) [Ratio] 0 % 0-5 [facility] Platelet mean volume (Bld) [Entitic vol] 11.7 fL 6.2-12.0 [facility] Platelets (Bld) [#/Vol] 135 10*3/uL 150-450 [facility] Mucus LM Ql (Urine sed)Order ed By: Remus Ungur on 08-14-2023 Mucus Ql (Urine sed) 0 SEEN /hpf [facility] Nitrite Test strip Ql (U)Ord ered By: Remus Ungur on 08-14-2023 Nitrite Ql (U) Negative Negative [facility] No Panel InformationOrdered By: Remus Ungur on 08-14-2023 Urine RBC 5-10 SEEN /hpf 0-5 [facility] Protein Test strip Ql (U)Ord ered By: Remus Ungur on 08-14-2023 Protein Ql (U) Negative Negative [facility] RBC Auto (Bld) [#/Vol]Ordere d By: Remus Ungur on 08-14-2023 RBC (Bld) [#/Vol] 4.38 10*6/uL 4.2-5.4 [facility] Squamous epithelial cells de tection in urine sediment by light microscopyOrdered By: Remus Ungur on 08-14-2023 Epithelial cells.squamous LM Ql (Urine sed) 0 SEEN /hpf 5-10 [facility] Transitional cells detection in urine sediment by light microscopyOrdered By: Remus Ungur on 08-14-2023 Transitional cells LM Ql (Urine sed) 0 SEEN /hpf 0-5 [facility] Urine blood detectionOrdered By: Remus Ungur on 08-14-2023 RBC Ql (U) 250 /ul Negative [facility] Urine clarityOrdered By: Rem us Ungur on 08-14-2023 Clarity (U) Sl. Cloudy Clear [facility] Urine color determinationOrd ered By: Remus Ungur on 08-14-2023 Color (U) Yellow Yellow [facility] Urine glucose detectionOrder ed By: Remus Ungur on 08-14-2023 Glucose Ql (U) 1000 mg/dl Normal [facility] Urine leukocyte esterase det ection by dipstickOrdered By: Remus Ungur on 08-14-2023 Leukocyte esterase Test strip Ql (U) 100 /ul Negative [facility] Urine pHOrdered By: Lola Un gur on 08-14-2023 pH (U) 7.0 [pH] 5.0 - 8.0 [facility] Urine sediment bacteria coun t by microscopy (number/high power field)Ordered By: Lola Marquez on 08-14-2023 Bacteria LM.HPF (Urine sed) [#/Area] 1 /[HPF] None Seen [facility] Urine sediment renal epithel ial cell count by microscopy (number/high power field)Ordered By: Lola Marquez on 08-14-2023 Epithelial cells.renal LM.HPF (Urine sed) [#/Area] 0 /[HPF] 0-5 [facility] Urine specific gravity measu rementOrdered By: Lola Marquez on 08-14-2023 Specific gravity (U) [Rel density] 1.010 1.002-1.030 [facility] Urine urobilinogen measureme ntOrdered By: Lola Marquez on 08-14-2023 Urobilinogen Ql (U) Normal mg/dl Normal [facility] CNPNon 08-13-2023 [facility] Telephone (INTMWS) STEVE VIEIRA ([id number]) 1945 F Date Time Provider Department 08/13/23 PETER ELLIS INTWS During your visit today, we recorded the following information about you: Rich Richmond LPN 08/13/2023 3:19 PM Signed Cristin with [facility] calling to let you know did start [...] hospital FU apt booked. ROSELIA Govea Terri, APRN.MARKETING DATABASE ANALYST 08/14/2023 9:36 AM Signed Okay for home health care. She should follow medication orders from discharge of the hospital, aspirin does appear to be on the discharge medication orders. Why is home health care asking about 81 mg aspirin? Please schedule hospital discharge follow-up visit Marimar Shields LPN 08/14/2023 10:41 AM Signed Attempted to contact Cristin [facility] but no answer. Left providers message and [...] LPN - Fully Assessed Reason for Visit: [facility], verbal order [Other] Prescriptions as of 08/15/2023 [...] by mouth daily with breakfast. Gets through [employer] PAP. - ferrous sulfate 325 mg [...] Status:Closed by RICH RICHMOND on 08/15/23 Normal [facility] Basophil percentageOrdered B y: Wes Alva on 08-12-2023 Hemoglobin (Bld) [Mass/Vol] 9.9 g/dL 12.0-15.0 [facility] Hematocrit Auto (Bld) [Volum e fraction]Ordered By: Wes Alva on 08-12-2023 Hematocrit (Bld) [Volume fraction] 33.7 % 37-47 [facility] Thin prep Papanicolaou smear with manual screeningOrdered By: Wes Alva on 08-12-2023 Thin prep Papanicolaou smear with manual screening 312 mg/dL 74-106 [facility] Comment on above: MANAGEMENT OF PATIEN T CARE PER NURSING PROTOCOL Absolute lymphocyte countOrd ered By: Mitzy Strauss on 08-11-2023 Lymphocytes Auto (Unsp spec) [#/Vol] 0.99 10*3/uL 0.83-4.51 [facility] Automated lymphocyte count a s percentage of total leukocytesOrdered By: Mitzy Strauss on 08-11-2023 Lymphocytes/100 WBC Auto (Unsp spec) 20.9 % 19-41 [facility] Basophil percentageOrdered B y: Mitzy Strauss on 08-11-2023 Basophils/100 WBC (Bld) 0.4 % 0-1 [facility] Chloride [Moles/Vol] 109 mmol/L 98-107 [facility] Eosinophils/100 WBC (Bld) 1.7 % 0-5 [facility] Glucose [Mass/Vol] 269 mg/dL 74-106 [facility] Comment on above: Glucose result great er than or equal to 200 mg/dLsuggests DIABETES MELLITUS per A.D.A. criteria. Monocytes/100 WBC (Bld) 8.9 % 0-10 [facility] Neutrophils (Bld) [#/Vol] 3.2 10*3/uL 2.0-7.7 [facility] Neutrophils/100 WBC (Bld) 66.6 % 47-70 [facility] Potassium [Moles/Vol] 3.6 mmol/L 3.5-5.1 [facility] Sodium [Moles/Vol] 139 mmol/L 136-145 [facility] WBC (Bld) [#/Vol] 4.7 10*3/uL 4.4-11.0 [facility] CNPNon 08-11-2023 CNP[facility] Telephone (FAMPWS) STEVE VIEIRA ([id number]) 1945 F Date Time Provider Department 08/11/23 [facility]ER ELLIS [facility] During your visit today, we recorded the following information about you: Alta Ortiz LPN 08/11/2023 12:51 PM Signed Liberty with [facility] calls to report pt is going to be discharged from [facility] today with orders for Nursing, PT, [...] subcutaneously one time a week. Gets through [employer] PAP. - empagliflozin (JARDIANCE) 25 mg tablet Take 1 tablet by mouth daily with breakfast. Gets through [employer] PAP. - ferrous sulfate 325 mg (65 [...] by YESENIA YARBROUGH CMA on 08/12/23 Normal [facility] Determination of erythrocyte mean corpuscular volume (MCV)Ordered By: Mitzy Strauss on 08-11-2023 MCV (RBC) [Entitic vol] 82.3 fL 81-99 [facility] Erythrocyte distribution wid th ratioOrdered By: Mitzy Strauss on 08-11-2023 Erythrocyte distribution width (RBC) [Ratio] 18.8 % 11.6-14.6 [facility] Erythrocyte distribution wid th standard deviationOrdered By: Mitzy Strauss on 08-11-2023 Erythrocyte distribution width (RBC) [Entitic vol] 53.3 fL 35.1-43.9 [facility] Immature granulocytes/100 WB C Auto (Bld)Ordered By: Mitzy Strauss on 08-11-2023 Immature granulocytes/100 WBC (Bld) 1.500 % 0.0-0.9 [facility] Comment on above: IG% - Immature Granu locytes (promyelocytes, myelocytes and metamyelocytes) > 1% indicates that a LEFT SHIFT is Present. Laboratory - Chemistry and C hemistry - challengeOrdered By: Mitzy Strauss on 08-11-2023 CO2 [Moles/Vol] 24.0 mmol/L 21.0-32.0 [facility] Cobalamin (Vitamin B12) [Mass/Vol] 329 pg/mL 211-911 [facility] Urea nitrogen/Creatinine [Mass ratio] 26.6 mg/mg 10-20 [facility] Laboratory - Hematology and Cell countsOrdered By: Mitzy Strauss on 08-11-2023 MCH (RBC) [Entitic mass] 22.7 pg 27.0-32.0 [facility] MCHC (RBC) [Mass/Vol] 27.5 g/dL 32-36 [facility] Nucleated RBC/100 WBC (Bld) [Ratio] 0 % 0-5 [facility] Platelet mean volume (Bld) [Entitic vol] 11.5 fL 6.2-12.0 [facility] Platelets (Bld) [#/Vol] 161 10*3/uL 150-450 [facility] No Panel InformationOrdered By: Mitzy Strauss on 08-11-2023 Estimated Creatinine Clearance Calc 45.06 ml/min [facility] Estimated GFR (MDRD) Amer 123 mL/min >60 [facility] Comment on above: GFR Calc Estimated GFR (MDRD) Non-Af Amer 102 mL/min >60 [facility] Comment on above: Non- GFR Calc RBC Auto (Bld) [#/Vol]Ordere d By: Mitzy Strauss on 08-11-2023 RBC (Bld) [#/Vol] 3.00 10*6/uL 4.2-5.4 [facility] Serum or plasma calcium sonu urement (mass/volume)Ordered By: Mitzy Strauss on 08-11-2023 Calcium [Mass/Vol] 8.2 mg/dL 8.5-10.1 [facility] Serum or plasma creatinine m easurement (mass/volume)Ordered By: Mitzy Strauss on 08-11-2023 Creatinine [Mass/Vol] 0.60 mg/dL 0.55-1.02 [facility] Comment on above: The validity of the calculated GFR & GFRAA in patients over 70 years has not been determined. Clinical correlation is essential. Serum or plasma urea nitroge n measurement (mass/volume)Ordered By: Mitzy Strauss on 08-11-2023 Urea nitrogen [Mass/Vol] 16 mg/dL 7-18 [facility] Thin prep Papanicolaou smear with manual screeningOrdered By: Mitzy Strauss on 08-11-2023 Thin prep Papanicolaou smear with manual screening 6 5-15 [facility] Basophil percentageOrdered B y: Mitzy Strauss on 08-10-2023 Basophil percentage 2.6 mg/dL 2.5-4.9 [facility] Hemoglobin in reticulocytes (mass per reticulocyte)Ordered By: Mitzy Strauss on 08-10-2023 Hemoglobin (Reticulocytes) [Entitic mass] 26.1 pg 30-35 [facility] Iron measurement (mass/mass) Ordered By: Mitzy Strauss on 08-10-2023 Iron (Unsp spec) [Mass/Mass] 25 ug/dL 50-170 [facility] Laboratory - Chemistry and C hemistry - challengeOrdered By: Mitzy Strauss on 08-10-2023 Ferritin [Mass/Vol] 20 ng/mL 8-252 [facility] Magnesium [Mass/Vol] 2.2 mg/dL 1.6-2.6 [facility] No Panel InformationOrdered By: Mitzy Strauss on 08-10-2023 Immature Reticulocyte Fraction 35.70 % 3.00-15.90 [facility] Total Iron Binding Capacity 368 ug/dL 250-450 [facility] Reticulocytes Auto (Bld) [#/ Vol]Ordered By: Mitzy Strauss on 08-10-2023 Reticulocytes/100 RBC (Bld) 3.32 % 0.5-1.5 [facility] Serum or plasma iron saturat ion measurement (mass fraction)Ordered By: Mitzy Strauss on 08-10-2023 Iron saturation [Mass fraction] 6.8 % 15.0-55.0 [facility] Basophil percentageOrdered B y: Clayton Abreu on 08-09-2023 Basophil percentage 0 SEEN /hpf 0-5 [facility] Bilirubin [Mass/Vol] 0.90 mg/dL 0.20-1.00 [facility] Comment on above: For patients on eltr ombopag therapy, use of Dimension [place] TBIL is not recommended. Protein [Mass/Vol] 7.4 g/dL 6.4-8.2 [facility] Bilirubin Test strip Ql (U)O rdered By: Clayton Abreu on 08-09-2023 Bilirubin Ql (U) Negative Negative [facility] Ketones Test strip Ql (U)Ord ered By: Clayton Abreu on 08-09-2023 Ketones Ql (U) 150 mg/dl Negative [facility] Comment on above: CRITICAL VALUE *HCRI TICAL VALUE VERIFIED. CALLED TO АЛЕКСАНДР THAO08/09/23 1252 Lena Crouch.RESULTS READ BACK BY SAME . Laboratory - Chemistry and C hemistry - challengeOrdered By: Clayton Abreu on 08-09-2023 Albumin/Globulin [Mass ratio] 0.8 {ratio} 0.9-2.4 [facility] ALP [Catalytic activity/Vol] 186 U/L 45-117 [facility] ALT [Catalytic activity/Vol] 42 U/L 13-56 [facility] CK [Catalytic activity/Vol] 42 U/L 26-192 [facility] Globulin (S) [Mass/Vol] 4.1 g/dL 2.2-4.2 [facility] Laboratory - Microbiology an d Antimicrobial susceptibilityOrdered By: Clayton Abreu on 08-09-2023 SARS-CoV-2 (COVID-19) RNA LUBA+probe Ql (Unsp spec) [facility] Mucus LM Ql (Urine sed)Order ed By: Clayton Abreu on 08-09-2023 Mucus Ql (Urine sed) 0 SEEN /hpf [facility] Nitrite Test strip Ql (U)Ord ered By: Clayton Abreu on 08-09-2023 Nitrite Ql (U) Negative Negative [facility] No Panel InformationOrdered By: Clayton Abreu on 08-09-2023 Urine RBC 0 SEEN /hpf 0-5 [facility] Protein Test strip Ql (U)Ord ered By: Clayton Abreu on 08-09-2023 Protein Ql (U) 15 mg/dl Negative [facility] Serum or plasma thyroid stim ulating hormone (TSH) measurement (units/volume)Ordered By: Clayton Abreu on 08-09-2023 TSH Qn 4.30 uIU/mL 0.358-3.74 [facility] Squamous epithelial cells de tection in urine sediment by light microscopyOrdered By: Clayton Abreu on 08-09-2023 Epithelial cells.squamous LM Ql (Urine sed) 0 SEEN /hpf 5-10 [facility] Thin prep Papanicolaou smear with manual screeningOrdered By: Clayton Abreu on 08-09-2023 Thin prep Papanicolaou smear with manual screening 3.3 g/dL 3.2-5.0 [facility] Thin prep Papanicolaou smear with manual screening 53 U/L 15-37 [facility] Urine blood detectionOrdered By: Clayton Abreu on 08-09-2023 RBC Ql (U) 10 /ul Negative [facility] Urine clarityOrdered By: Apolonia Abreu on 08-09-2023 Clarity (U) Clear Clear [facility] Urine color determinationOrd ered By: Clayton Abreu on 08-09-2023 Color (U) Yellow Yellow [facility] Urine glucose detectionOrder ed By: Clayton Abreu on 08-09-2023 Glucose Ql (U) 1000 mg/dl Normal [facility] Urine leukocyte esterase det ection by dipstickOrdered By: Clayton Abreu on 08-09-2023 Leukocyte esterase Test strip Ql (U) Negative Negative [facility] Urine pHOrdered By: Clayton angel on 08-09-2023 pH (U) 5.0 [pH] 5.0 - 8.0 [facility] Urine sediment bacteria coun t by microscopy (number/high power field)Ordered By: Clayton Abreu on 08-09-2023 Bacteria LM.HPF (Urine sed) [#/Area] 0 /[HPF] None Seen [facility] Urine specific gravity measu rementOrdered By: Clayton Abreu on 08-09-2023 Specific gravity (U) [Rel density] 1.015 1.002-1.030 [facility] Urine urobilinogen measureme ntOrdered By: Clayton Abreu on 08-09-2023 Urobilinogen Ql (U) Normal mg/dl Normal [facility] 25(OH)D3 SerPl-mCncon 2023 25-hydroxyvitamin D3 [Mass/Vol] 7.1 ng/mL Low 31.0-80.0 [facility] Comment on above: Order Comment: Speci men Type: BLOOD SPECIMEN Ordering Facility: [facility] Address: [address] [place], [place] [address] [address] Result Comment: Clas sification of 25 [place] Vitamin D status: Deficiency/Insufficiency: < or = 30 ng/ml. Sufficiency/Optimal Levels: 31-80 ng/mL Toxicity: > 100 ng/mL. Test performed by chemiluminescent immunoassay. Performed By: #### 1 989-3 #### [facility] CLIA [id number] [address] [place] [address] [place] CBC panel Auto (Bld)on 07-04 Erythrocyte distribution width (RBC) [Ratio] 15.9 % High 11.5-15.0 [facility] Comment on above: Order Comment: Speci men Type: BLOOD SPECIMEN Ordering Facility: [facility] Address: [address] [place] [address] Performed By: #### 1 989-3 #### [facility] CLIA [id number] [address] [place] [address] [place] Hematocrit (Bld) [Volume fraction] 27.9 % Low 36.0-46.0 [facility] Comment on above: Order Comment: Speci men Type: BLOOD SPECIMEN Ordering Facility: [facility] Address: [address] [place] [address] Performed By: #### 1 989-3 #### [facility] CLIA [id number] [address] [place] [address] [place] Hemoglobin (Bld) [Mass/Vol] 7.8 g/dL Low 11.5-15.5 [facility] Comment on above: Order Comment: Speci men Type: BLOOD SPECIMEN Ordering Facility: [facility] Address: [address] [place] [address] Performed By: #### 1 989-3 #### [facility] CLIA [id number] [address] [place] [address] [place] MCH (RBC) [Entitic mass] 23.1 pg Low 26.0-34.0 [facility] Comment on above: Order Comment: Speci men Type: BLOOD SPECIMEN Ordering Facility: [facility] Address: [address] [place] [address] Performed By: #### 1 989-3 #### [facility] CLIA [id number] [address] [place] [address] [place] MCHC (RBC) [Mass/Vol] 28.0 g/dL Low 30.5-36.0 [facility] Comment on above: Order Comment: Speci men Type: BLOOD SPECIMEN Ordering Facility: [facility] Address: [address] [place] [address] Performed By: #### 1 989-3 #### [facility] CLIA [id number] [address] [place] [address] [place] MCV (RBC) [Entitic vol] 82.8 fL Normal 80.0-100.0 [facility] Comment on above: Order Comment: Speci men Type: BLOOD SPECIMEN Ordering Facility: [facility] Address: [address] [place] [address] Performed By: #### 1 989-3 #### [facility] CLIA [id number] [address] [place] [address] [place] Nucleated RBC (Bld) [#/Vol] 10*3/uL Normal <0.01 [facility] Comment on above: Order Comment: Speci men Type: BLOOD SPECIMEN Ordering Facility: [facility] Address: [address] [place] [address] Performed By: #### 1 989-3 #### [facility] CLIA [id number] [address] [place] [address] [place] Platelet mean volume (Bld) [Entitic vol] 12.5 fL Normal 9.0-12.7 [facility] Comment on above: Order Comment: Speci men Type: BLOOD SPECIMEN Ordering Facility: [facility] Address: [address] [place] [address] Performed By: #### 1 989-3 #### [facility] CLIA [id number] [address] [place] [address] [place] Platelets (Bld) [#/Vol] 204 10*3/uL Normal 150-400 [facility] Comment on above: Order Comment: Speci men Type: BLOOD SPECIMEN Ordering Facility: [facility] Address: [address] [place] [address] Performed By: #### 1 989-3 #### [facility] CLIA [id number] [address] [place] [address] [place] RBC (Bld) [#/Vol] 3.37 10*6/uL Low 3.90-5.20 [facility] Comment on above: Order Comment: Speci men Type: BLOOD SPECIMEN Ordering Facility: [facility] Address: [address] [place] [address] Performed By: #### 1 989-3 #### [facility] CLIA [id number] [address] [place] [address] [place] WBC (Bld) [#/Vol] 5.46 10*3/uL Normal 3.70-11.00 [facility] Comment on above: Order Comment: Speci men Type: BLOOD SPECIMEN Ordering Facility: [facility] Address: [address] [place] [address] Performed By: #### 1 989-3 #### [facility] CLIA [id number] [address] [place] [address] [place] Comprehensive metabolic 2000 panelon 07-04-2023 Albumin [Mass/Vol] 4.3 g/dL Normal 3.9-4.9 [facility] Comment on above: Order Comment: Speci men Type: BLOOD SPECIMEN Ordering Facility: [facility] Address: [address] [place] [address] Performed By: #### 1 989-3 #### [facility] CLIA [id number] [address] [place] [address] [place] ALP [Catalytic activity/Vol] 188 U/L High 34-123 [facility] Comment on above: Order Comment: Speci men Type: BLOOD SPECIMEN Ordering Facility: [facility] Address: [address] [place] [address] Performed By: #### 1 989-3 #### [facility] CLIA [id number] [address] [place] [address] [place] ALT [Catalytic activity/Vol] 45 U/L High 7-38 [facility] Comment on above: Order Comment: Speci men Type: BLOOD SPECIMEN Ordering Facility: [facility] Address: [address] [place] [address] Performed By: #### 1 989-3 #### [facility] CLIA [id number] [address] [place] [address] [place] Anion gap [Moles/Vol] 14 mmol/L Normal 9-18 [facility] Comment on above: Order Comment: Speci men Type: BLOOD SPECIMEN Ordering Facility: [facility] Address: [address] [place] [address] Performed By: #### 1 989-3 #### [facility] CLIA [id number] [address] [place] [address] [place] AST [Catalytic activity/Vol] 48 U/L High 13-35 [facility] Comment on above: Order Comment: Speci men Type: BLOOD SPECIMEN Ordering Facility: [facility] Address: [address] [place] [address] Performed By: #### 1 989-3 #### [facility] CLIA [id number] [address] [place] [address] [place] Bilirubin [Mass/Vol] 0.6 mg/dL Normal 0.2-1.3 [facility] Comment on above: Order Comment: Speci men Type: BLOOD SPECIMEN Ordering Facility: [facility] Address: [address] [place] [address] Performed By: #### 1 989-3 #### [facility] CLIA [id number] [address] [place] [address] [place] Calcium [Mass/Vol] 9.7 mg/dL Normal 8.5-10.2 [facility] Comment on above: Order Comment: Speci men Type: BLOOD SPECIMEN Ordering Facility: [facility] Address: [address] [place] [address] Performed By: #### 1 989-3 #### [facility] CLIA [id number] [address] [place] [address] [place] Chloride [Moles/Vol] 98 mmol/L Normal 97-105 [facility] Comment on above: Order Comment: Speci men Type: BLOOD SPECIMEN Ordering Facility: [facility] Address: [address] [place] [address] Performed By: #### 1 989-3 #### [facility] CLIA [id number] [address] [place] [address] [place] CO2 [Moles/Vol] 23 mmol/L Normal 22-30 [facility] Comment on above: Order Comment: Speci men Type: BLOOD SPECIMEN Ordering Facility: [facility] Address: [address] [place] [address] Performed By: #### 1 989-3 #### [facility] CLIA [id number] [address] [place] [address] [place] Creatinine [Mass/Vol] 0.68 mg/dL Normal 0.58-0.96 [facility] Comment on above: Order Comment: Speci men Type: BLOOD SPECIMEN Ordering Facility: [facility] Address: [address] [place] [address] Performed By: #### 1 989-3 #### [facility] CLIA [id number] [address] [place] [address] [place] Creatinine and Glomerular filtration rate.predicted panel (S/P/Bld) 88 mL/min/1.73m??? Normal >=60 [facility] Comment on above: Order Comment: Sudhakar mera Type: BLOOD SPECIMEN Ordering Facility: [facility] Address: [address] [place] [address] Result Comment: Audra mated Glomerular Filtration Rate [...] GFR. Performed By: #### 1 989-3 #### [facility] CLIA [id number] [address] [place] [address] [place] Glucose [Mass/Vol] 492 mg/dL High 74-99 [facility] Comment on above: Order Comment: Sudhakar mera Type: BLOOD SPECIMEN Ordering Facility: [facility] Address: [address] [place] [address] Result Comment: The [place] [employer] (ADA) provides guidance for cutoff [...] Standards of Medical Care in Diabetes 2016, [place] [employer]. Diabetes Care. 2016.39(Suppl 1). Performed By: #### 1 989-3 #### [facility] CLIA [id number] [address] [place] [address] [place] Potassium [Moles/Vol] 4.7 mmol/L Normal 3.7-5.1 [facility] Comment on above: Order Comment: Sudhakar mera Type: BLOOD SPECIMEN Ordering Facility: [facility] Address: [address] [place] [address] Performed By: #### 1 989-3 #### [facility] CLIA [id number] [address] [place] [address] [place] Protein [Mass/Vol] 7.2 g/dL Normal 6.3-8.0 [facility] Comment on above: Order Comment: Speci men Type: BLOOD SPECIMEN Ordering Facility: [facility] Address: [address] [place] [address] Performed By: #### 1 989-3 #### [facility] CLIA [id number] [address] [place] [address] [place] Sodium [Moles/Vol] 135 mmol/L Low 136-144 [facility] Comment on above: Order Comment: Speci men Type: BLOOD SPECIMEN Ordering Facility: [facility] Address: [address] [place] [address] Performed By: #### 1 989-3 #### [facility] CLIA [id number] [address] [place] [address] [place] Urea nitrogen [Mass/Vol] 15 mg/dL Normal 7-21 [facility] Comment on above: Order Comment: Speci men Type: BLOOD SPECIMEN Ordering Facility: [facility] Address: [address] [place] [address] Performed By: #### 1 989-3 #### [facility] CLIA [id number] [address] [place] [address] [place] HbA1c (Bld)on 07-04-2023 Average glucose Estimated from glycated hemoglobin (Bld) [Mass/Vol] 324 mg/dL Normal [facility] Comment on above: Order Comment: Speci men Type: BLOOD SPECIMEN Ordering Facility: [facility] Address: [address] [place] [address] Result Comment: eAG: (Estimated average glucose) is a calculated value from HgbA1c and is insurance representative of the average blood glucose level in the last 2-3 month period. Performed By: #### 5 5454-3 #### [facility] CLIA [id number] [address] [place] [address] [place] HbA1c (Bld) [Mass fraction] 12.9 % High 4.3-5.6 [facility] Comment on above: Order Comment: Speci men Type: BLOOD SPECIMEN [facility]ing Facility: [facility] Address: [address] [place] [address] Result Comment: Amer ican Diabetes Association guidelines indicate that patients with HgbA1c in the range 5.7-6.4% are at increased risk for development of diabetes, and intervention by lifestyle modification may be beneficial. HgbA1c greater or equal to 6.5% is considered diagnostic of diabetes. Performed By: #### 5 5454-3 #### [facility] [place] [id number] [address] [place] [address] [place] T3Free SerPl-mCncon 07-04-19 24 Free T3 [Mass/Vol] 2.4 pg/mL Normal 2.3-4.1 [facility] Comment on above: Order Comment: Speci men Type: BLOOD SPECIMEN [facility]ing Facility: [facility] Address: [address] [place] [address] Performed By: #### 1 989-3 #### [facility] [place] [id number] [address] [place] [address] [place] T4 Free SerPl-mCncon 024 Free T4 [Mass/Vol] 1.3 ng/dL Normal 0.9-1.7 [facility] Comment on above: Order Comment: Speci men Type: BLOOD SPECIMEN [facility]ing Facility: [facility] Address: [address] [place] [address] Performed By: #### 1 989-3 #### [facility] [place] [id number] [address] [place] [address] [place] TSH SerPl-aCncon 07-04-2023 TSH Qn 4.380 m[IU]/L High 0.270-4.200 [facility] Comment on above: Order Comment: Speci men Type: BLOOD SPECIMEN [facility]ing Facility: [facility] Address: [address] [place] [address] Performed By: #### 1 989-3 #### [facility] CLIA [id number] [address] [facility] [id number] OF [facility] CNPNon 04-21-2023 CNPN Telephone (ROCK) STEVE VIEIRA ([id number]) 1945 F Date Time Provider Department 04/21/23 SHERWIN CHE During your visit today, we recorded the following information about you: Sherwin Che MSW 04/21/2023 10:21 AM Signed Lesli spoke with patient and verified that patient Jardiance medication is the only medication that she applies to [facility] for assistance. Lesli will take forms to Dr. Ellis office for prescription completion. 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 They have [...] subcutaneously one time a week. Gets through [employer] P[employer]. - empagliflozin (JARDIANCE) 25 mg tablet Take 1 tablet by mouth daily with breakfast. Gets through [employer] PAP. - ferrous sulfate 325 mg (65 [...] Status:Closed by RENETTA ABERNATHY LPN on 04/22/23 [facility] CNPJenna 03-04-2023 CNPN Telephone (ALEAHWST) STEVE VIEIRA ([id number]) 1945 F Date Time Provider Department 03/04/23 [...] cost and stops. Lesli will mail [employer] brochures and [facility] Older Adult resource guide to patient [...] by mouth daily with breakfast. Gets through [employer] PAP. - ferrous sulfate 325 mg [...] Encounter Status:Closed by SHERWIN CHE on 03/05/23 [facility] CNOVon 02-28-2023 CNOV Office Visit (INTMWS ) STEVE VIEIRA ([id number]) 1945 F Date Time Provider Department 02/28/23 2:00 PM PETER ELLIS INTMWS During your visit today, we recorded the following information about you: Temperature Pulse Respiration Blood pressure 97.8 degrees 115/minute 18/minute 104/65 Weight 64.9 kg Peter Ellis MD 03/31/2023 12:27 AM Signed This note was created using NoteWriter. Subjective Steve Vieira is a 77 year [...] subcutaneously one time a week. Gets through [employer]. empagliflozin (JARDIANCE) 25 mg tablet Take 1 tablet by mouth daily with breakfast. Gets through [employer] PAP. ferrous sulfate 325 mg (65 [...] 85.8 Albumin (more content not included)... Normal [facility] ALBUMIN/CREAT RATIO RND URon 02-13-2023 Albumin DL <= 20 mg/L (U) [Mass/Vol] 15.5 mg/L Normal [facility] Comment on above: Order Comment: Speci men Type: URINE SPECIMENOrdering Facility: [facility] Address: [address] [place] [id number] Performed By: #### U ACR ####[facility]IA [id number] [address] [place] Albumin/Creatinine (U) [Mass ratio] 18 mg/g Normal <30 [facility] Comment on above: Order Comment: Speci men Type: URINE SPECIMENOrdering Facility: [facility] Address: [address] [place] [address] Result Comment: Adul t Male and Female Nephrotic Criteria: <30 mg/g is considered normal to mildly increased 30-300 mg/g is considered moderately increased >300 mg/g is considered severely increased KDIGO. (2013). KDIGO 2012 Clinical Practice Guideline for the Evaluation and Management of Chronic Kidney Disease. Official Journal of the International Society of Nephrology, 3(1), 1-150. Performed By: #### U ACR ####[facility]IA [id number] [address] [place] Creatinine (U) [Mass/Vol] 85.8 mg/dL Normal 20.0-300.0 [facility] Comment on above: Order Comment: Speci men Type: URINE SPECIMENOrdering Facility: [facility] Address: [address] [place] [address] Performed By: #### U ACR ####[facility]CLIA [id number] [address] [place] CBC panel Auto (Bld)on 02-13 Erythrocyte distribution width (RBC) [Ratio] 15.3 % High 11.5 - 15.0 % [facility] Hematocrit (Bld) [Volume fraction] 29.8 % Low 36.0 - 46.0 % [facility] Hemoglobin (Bld) [Mass/Vol] 8.5 g/dL Low 11.5 - 15.5 g/dL [facility] MCH (RBC) [Entitic mass] 24.8 pg Low 26. 0 - 34.0 pg [facility] MCHC (RBC) [Mass/Vol] 28.5 g/dL Low 30.5 - 36.0 g/dL [facility] MCV (RBC) [Entitic vol] 86.9 fL 80.0 - 100.0 fL [facility] Nucleated RBC (Bld) [#/Vol] <0.01 k/uL [facility] Platelet mean volume (Bld) [Entitic vol] 11.9 fL 9.0 - 12.7 fL [facility] Platelets (Bld) [#/Vol] 232 10*3/uL 150 - 400 k/uL [facility] RBC (Bld) [#/Vol] 3.43 10*6/uL Low 3.90 - 5.2 0 m/uL [facility] WBC (Bld) [#/Vol] 6.00 10*3/uL 3.70 - 11. 00 k/uL [facility] Erythrocyte distribution width (RBC) [Ratio] 15.3 % High 11.5-15.0 [facility] Comment on above: Order Comment: Speci men Type: BLOOD SPECIMENOrdering Facility: [facility] Address: [address] [place] [address] Performed By: #### 5 8410-2 ####[facility] LABIA [id number] [address] STATES OF [facility] Hematocrit (Bld) [Volume fraction] 29.8 % Low 36.0-46.0 [facility] Comment on above: Order Comment: Speci samaria Type: BLOOD SPECIMENOrdering Facility: [facility] Address: [address] [place] [address] Performed By: #### 5 8410-2 ####[facility] LABIA [id number] [place] [address] [place] Hemoglobin (Bld) [Mass/Vol] 8.5 g/dL Low 11.5-15.5 [facility] Comment on above: Order Comment: Speci men Type: BLOOD SPECIMENOrdering Facility: [facility] Address: [address] [place] [address] Performed By: #### 5 8410-2 ####[facility] LABCLIA [id number] [place] [address] [place] MCH (RBC) [Entitic mass] 24.8 pg Low 26.0-34.0 [facility] Comment on above: Order Comment: Speci men Type: BLOOD SPECIMENOrdering Facility: [facility] Address: [address] Performed By: #### 5 8410-2 ####[facility] LABIA [id number] [place] [address] [place] MCHC (RBC) [Mass/Vol] 28.5 g/dL Low 30.5-36.0 [facility] Comment on above: Order Comment: Speci men Type: BLOOD SPECIMENOrdering Facility: [facility] Address: [address] [place] [address] Performed By: #### 5 8410-2 ####[facility] LABIA [id number] [address] [place] MCV (RBC) [Entitic vol] 86.9 fL Normal 80.0-100.0 C [facility] Comment on above: Order Comment: Speci men Type: BLOOD SPECIMENOrdering Facility: [facility] Address: [address] [place], [place] [address] Performed By: #### 5 8410-2 ####[facility] [id number] [place] [address] [place] Nucleated RBC (Bld) [#/Vol] 10*3/uL Normal <0.01 [facility] Comment on above: Order Comment: Speci men Type: BLOOD SPECIMENOrdering Facility: [facility] Address: [address] Performed By: #### 5 8410-2 ####[facility]IA [id number] [place] [address] [place] Platelet mean volume (Bld) [Entitic vol] 11.9 fL Normal 9.0-12.7 [facility] Comment on above: Order Comment: Speci men Type: BLOOD SPECIMENOrdering Facility: [facility] Address: [address] [place], [place] [address] Performed By: #### 5 8410-2 ####[facility] LABCLIA [id number] [place] [address] [place] Platelets (Bld) [#/Vol] 232 10*3/uL Normal 150-400 [facility] Comment on above: Order Comment: Speci men Type: BLOOD SPECIMENOrdering Facility: [facility] Address: [address] [place] [address] Performed By: #### 5 8410-2 ####[facility] LABCLIA [id number] [place] [address] [place] RBC (Bld) [#/Vol] 3.43 10*6/uL Low 3.90-5.20 [facility] Comment on above: Order Comment: Speci men Type: BLOOD SPECIMENOrdering Facility: [facility] Address: [address] [place] [address] Performed By: #### 5 8410-2 ####[facility] LABCLIA [id number] [place] [address] [place] WBC (Bld) [#/Vol] 6.00 10*3/uL Normal 3.70-11.00 [facility] Comment on above: Order Comment: Speci men Type: BLOOD SPECIMENOrdering Facility: [facility] Address: [address] [place] [address] Performed By: #### 5 8410-2 ####[facility] LABCLIA [id number] [place] [id number] [place] Comprehensive metabolic 2000 panelon 02-13-2023 Albumin [Mass/Vol] 4.3 g/dL Normal 3.9-4.9 [facility] Comment on above: Order Comment: Speci men Type: BLOOD SPECIMEN [facility] Facility[facility] Address: [address] [place] [address] Performed By: #### 1 989-3 #### [facility] CLIA [id number] [address] [place] [id number] [place] ALP [Catalytic activity/Vol] 151 U/L High 34-123 [facility] Comment on above: Order Comment: Speci men Type: BLOOD SPECIMEN [facility] Facility[facility] Address: [address] [place] [address] Performed By: #### 1 989-3 #### [facility] CLIA [id number] [address] [place] [address] [place] ALT [Catalytic activity/Vol] 32 U/L Normal 7-38 [facility] Comment on above: Order Comment: Speci men Type: BLOOD SPECIMEN [facility] Facility[facility] Address: [address] [place] [address] Performed By: #### 1 989-3 #### [facility] CLIA [id number] [address] [place] [address] [place] Anion gap [Moles/Vol] 13 mmol/L Normal 9-18 [facility] Comment on above: Order Comment: Speci men Type: BLOOD SPECIMEN [facility] Facility[facility] Address: [address] [place] [address] Performed By: #### 1 989-3 #### [facility] CLIA [id number] [address] [place] [address] [place] AST [Catalytic activity/Vol] 59 U/L High 13-35 [facility] Comment on above: Order Comment: Speci men Type: BLOOD SPECIMEN [facility] Address: [address] [place] [address] Performed By: #### 1 989-3 #### [facility] CLIA [id number] [address] [place] [address] [place] Bilirubin [Mass/Vol] 0.5 mg/dL Normal 0.2-1.3 [facility] Comment on above: Order Comment: Speci men Type: BLOOD SPECIMEN [facility] Facility[facility] Address: [address] [place] [address] Performed By: #### 1 989-3 #### [facility] CLIA [id number] [address] [place] [address] [place] Calcium [Mass/Vol] 9.6 mg/dL Normal 8.5-10.2 [facility] Comment on above: Order Comment: Speci men Type: BLOOD SPECIMEN [facility] Facility[facility] Address: [address] [place] [address] Performed By: #### 1 989-3 #### [facility] CLIA [id number] [address] [place] [address] [place] Chloride [Moles/Vol] 104 mmol/L Normal 97-105 [facility] Comment on above: Order Comment: Speci men Type: BLOOD SPECIMEN [facility] Address: [address] [place] [address] Performed By: #### 1 989-3 #### [facility] CLIA [id number] [address] [place] [address] [place] CO2 [Moles/Vol] 21 mmol/L Low 22-30 [facility] Comment on above: Order Comment: Speci men Type: BLOOD SPECIMEN [facility] Address: [address] [place] [address] Performed By: #### 1 989-3 #### [facility] CLIA [id number] [address] [place] [id number] [place] Creatinine [Mass/Vol] 0.73 mg/dL Normal 0.58-0.96 [facility] Comment on above: Order Comment: Speci men Type: BLOOD SPECIMEN [facility] Address: [address] [place] [address] Performed By: #### 1 989-3 #### [facility] CLIA [id number] [address] [place] [address] [place] Creatinine and Glomerular filtration rate.predicted panel (S/P/Bld) 84 mL/min/1.73m??? Normal >=60 [facility] Comment on above: Order Comment: Sudhakar mera Type: BLOOD SPECIMEN [facility] Address: [address] [place] [address] Result Comment: Audra mated Glomerular Filtration Rate [...] GFR. Performed By: #### 1 989-3 #### [facility] CLIA [id number] [address] [place] [address] [place] Glucose [Mass/Vol] 172 mg/dL High 74-99 [facility] Comment on above: Order Comment: Sudhakar mera Type: BLOOD SPECIMEN [facility] Facility[facility] Address: [address] [place] [address] Result Comment: The [place] Diabetes Association (ADA) provides guidance for cutoff [...] Standards of Medical Care in Diabetes 2016, [place] Diabetes Association. Diabetes Care. 2016.39(Suppl 1). Performed By: #### 1 989-3 #### [facility] CLIA [id number] [address] [place] [address] [place] Potassium [Moles/Vol] 4.9 mmol/L Normal 3.7-5.1 [facility] Comment on above: Order Comment: Speci men Type: BLOOD SPECIMEN [facility] Address: [address] [place] [address] Performed By: #### 1 989-3 #### [facility] CLIA [id number] [address] [place] [address] [place] Protein [Mass/Vol] 7.1 g/dL Normal 6.3-8.0 [facility] Comment on above: Order Comment: Speci men Type: BLOOD SPECIMEN [facility] Facility[facility] Address: [address] [place] [address] Performed By: #### 1 989-3 #### [facility] CLIA [id number] [address] [place] [address] [place] Sodium [Moles/Vol] 138 mmol/L Normal 136-144 [facility] Comment on above: Order Comment: Speci men Type: BLOOD SPECIMEN [facility] Address: [address] [place] [address] Performed By: #### 1 989-3 #### [facility] CLIA [id number] [address] [place] [address] [place] Urea nitrogen [Mass/Vol] 21 mg/dL Normal 7-21 [facility] Comment on above: Order Comment: Speci men Type: BLOOD SPECIMEN [facility] Facility[facility] Address: [address] [place] [address] Performed By: #### 1 989-3 #### [facility] CLIA [id number] [facility] [place] [address] [place] Ferritin SerPl-mCncon 2022 Ferritin [Mass/Vol] 16.6 ng/mL Normal 14.7-205.1 [facility] Comment on above: Order Comment: Speci men Type: BLOOD SPECIMENOrdering Facility: [facility] Address: [address] [place], [place] [address] Performed By: #### 2 276-4, 3024-7, 3016-3 ####[facility] LABIA [id number] [place] [address] [place] Folate SerPl-mCncon 02-14-20 23 Folate [Mass/Vol] ng/mL Normal >4.[address] [facility] Comment on above: Order Comment: Sudhakar mera Type: BLOOD SPECIMENOrdering Facility: [facility] Address: [address] [place] [address] Result Comment: A re sult of > 20 ng/mL is not necessarily indicative of a pathologic or treatable condition: it reflects a limitation of the test methodology. Assay reference range: 4.8 to 24.2 ng/mL. Suitable for detection of folate deficiency. Reference: Folate III (Folate III) [package insert V 1.0 Amharic]. [place], [place], [place]: April 2015. Performed By: #### 2 132-9, 2284-8 ####[facility] LABIA [id number] [address] OF [facility] HbA1c (Bld)on 02-13-2023 Average glucose Estimated from glycated hemoglobin (Bld) [Mass/Vol] 206 mg/dL Normal [facility] Comment on above: Order Comment: Sudhakar mera Type: BLOOD SPECIMENOrdering Facility: [facility] Address: [address] [place] [address] Result Comment: eAG: (Estimated average glucose) is a calculated value from HgbA1c and is insurance representative of the average blood glucose level in the last 2-3 month period. Performed By: #### 5 5454-3 ####[facility] [id number] [place] [address] [place] HbA1c (Bld) [Mass fraction] 8.8 % High 4.3-5.6 [facility] Comment on above: Order Comment: Sudhakar mera Type: BLOOD SPECIMENOrdering Facility: [facility] Address: [address] [place] [address] Result Comment: Amer ican Diabetes Association guidelines indicate that patients with HgbA1c in the range 5.7-6.4% are at increased risk for development of diabetes, and intervention by lifestyle modification may be beneficial. HgbA1c greater or equal to 6.5% is considered diagnostic of diabetes. Performed By: #### 5 5454-3 ####[facility] LABCLIA [id number] [place] [address] [place] Iron and Iron binding capaci ty panelon 02-13-2023 Iron [Mass/Vol] 29 ug/dL Low 41-186 [facility] Comment on above: Order Comment: Speci men Type: BLOOD SPECIMEN [facility] Address: [address] [place] [address] Performed By: #### 1 989-3 #### [facility] CLIA [id number] [address] [place] [address] [place] Iron binding capacity [Mass/Vol] 418 ug/dL High 232-386 [facility] Comment on above: Order Comment: Speci men Type: BLOOD SPECIMEN [facility] Address: [address] [place] [address] Performed By: #### 1 989-3 #### [facility] CLIA [id number] [address] [place] Iron/TIBC [Molar ratio] 6.9 % Low 15.0-57.0 [facility] Comment on above: Order Comment: Speci men Type: BLOOD SPECIMEN [facility] Address: [address] [place] [address] Performed By: #### 1 989-3 #### [facility] CLIA [id number] [address] [place] [address] [place] Lipid 1996 panelon Cholesterol [Mass/Vol] 118 mg/dL Normal <200 [facility] Comment on above: Order Comment: Speci men Type: BLOOD SPECIMENOrdering Facility: [facility] Address: [address] [place] [id number] Result Comment: <200 mg/dL, Desirable 200-239 mg/dL, Borderline high >239 mg/dL, High Performed By: #### 3 051-0, 22224-2, 81636-9, 66320-5 ####[facility] LABCLIA [id number] [place] [address] [place] Cholesterol in HDL [Mass/Vol] 32 mg/dL Low >39 [facility] Comment on above: Order Comment: Speci men Type: BLOOD SPECIMENOrdering Facility: [facility] Address: [address] [place] [address] Result Comment: 40-5 9 mg/dL, Acceptable >59 mg/dL, High: Negative risk factor for coronary heart disease <40 mg/dL, Low: Positive risk factor for coronary heart disease Performed By: #### 3 051-0, 84990-6, 50968-8, 15980-8 ####[facility] LABCLIA [id number] [address] [place] Cholesterol in LDL [Mass/Vol] 63 mg/dL Normal <100 [facility] Comment on above: Order Comment: Sudhakar men Type: BLOOD SPECIMENOrdering Facility: [facility] Address: [address] [place] [address] Result Comment: <100 mg/dL, Optimal 100-129 mg/dL, Near optimal/above optimal 130-159 mg/dL, Borderline high 160-189 mg/dL, High >189 mg/dL, Very high Secondary prevention optimal LDL Cholesterol levels are recommended to be < 70 mg/dL Performed By: #### 3 051-0, 46241-3, 37183-3, 94255-5 ####[facility] LABCLIA [id number] [address] OF [facility] Cholesterol in LDL/Cholesterol in HDL [Mass ratio] 1.97 {ratio} Normal <2.54 [facility] Comment on above: Order Comment: Speci men Type: BLOOD SPECIMENOrdering Facility: [facility] Address: [address] [place] [phone] Result Comment: Perico zhao: 1. National Cholesterol Education Program ATP III Guideline At-A-Glance Quick Desk Reference: National Heart, Lung, and Blood [place]. National Institutes of Health. 2001: NIH Publication No. 01-3305. 2. An International Atherosclerosis Society position paper: global recommendations for the management of dyslipidemia: executive summary, Atherosclerosis. 2014: 232(2):410-413. Performed By: #### 3 051-0, 35746-8, 16044-9, 25951-9 ####[facility] LABCLIA [id number] [place] [address] [place] Cholesterol in VLDL [Mass/Vol] 23 mg/dL Normal <30 [facility] Comment on above: Order Comment: Speci men Type: BLOOD SPECIMENOrdering Facility: [facility] Address: [address] [place] [address] Performed By: #### 3 051-0, 29185-2, 06609-5, 24373-5 ####[facility] LABIA [id number] [place] [address] [place] Cholesterol non HDL [Mass/Vol] 86 mg/dL Normal <130 [facility] Comment on above: Order Comment: Speci men Type: BLOOD SPECIMENOrdering Facility: [facility] Address: [address] [place] [address] Result Comment: <130 mg/dL, Optimal 130-159 mg/dL, Near optimal/above optimal 160-189 mg/dL, Borderline high 190-219 mg/dL, High >219 mg/dL, Very high Secondary prevention optimal non HDL Cholesterol levels are recommended to be <100 mg/dL Performed By: #### 3 051-0, 44500-4, 95139-4, 40847-2 ####[facility] LABCLIA [id number] [place] [address] [place] Cholesterol.total/Choles terol in HDL [Mass ratio] 3.69 {ratio} Normal <5.10 [facility] Comment on above: Order Comment: Speci men Type: BLOOD SPECIMENOrdering Facility: [facility] Address: [address] [place] [address] Performed By: #### 3 051-0, 69398-6, 32142-9, 68169-1 ####[facility] LABCLIA [id number] [facility] [place] [place] [address] [place] FASTING TIME 13 hrs Normal [facility] Comment on above: Order Comment: Speci men Type: BLOOD SPECIMENOrdering Facility: [facility] Address: [address] [address] Performed By: #### 3 051-0, 63312-4, 62754-6, 77703-0 ####[facility] LABCLIA [id number] [facility] [place] [address] [place] Triglyceride [Mass/Vol] 113 mg/dL Normal <150 [facility] Comment on above: Order Comment: Speci men Type: BLOOD SPECIMENOrdering Facility: [facility] Address: [address] [address] Result Comment: <150 mg/dL, Normal 150-199 mg/dL, Borderline high 200-499 mg/dL, High >499 mg/dL, Very high Performed By: #### 3 051-0, 84476-0, 82011-6, 66677-2 ####[facility] LABCLIA [id number] [facility] [place] [place] [address] [place] T3Free SerPl-ncon 02-14-20 23 Free T3 [Mass/Vol] 2.5 pg/mL Normal 2.3-4.1 [facility] Comment on above: Order Comment: Speci men Type: BLOOD SPECIMENOrdering Facility: [facility] Address: [address] [address] Performed By: #### 3 051-0, 87607-6, 95355-1, 79940-5 ####[facility] LABCLIA [id number] [address] [place] T4 Free SerPl-mCncon 023 Free T4 [Mass/Vol] 1.3 ng/dL Normal 0.9-1.7 [facility] Comment on above: Order Comment: Speci men Type: BLOOD SPECIMENOrdering Facility: [facility] Address: [address] [place] [address] Performed By: #### 2 276-4, 3024-7, 3016-3 ####[facility] LABIA [id number] [address] [place] TSH SerPl-aCncon 02-13-2023 TSH Qn 4.230 m[IU]/L High 0.270-4.200 [facility] Comment on above: Order Comment: Speci men Type: BLOOD SPECIMENOrdering Facility: [facility] Address: [address] [place] [address] Performed By: #### 2 276-4, 3024-7, 3016-3 ####[facility] [id number] [address] Vit B12 SerPl-mCncon 023 Cobalamin (Vitamin B12) [Mass/Vol] 331 pg/mL Normal 232-1245 [facility] Comment on above: Order Comment: Speci men Type: BLOOD SPECIMENOrdering Facility: [facility] Address: [address] [place] [address] Performed By: #### 2 132-9, 2284-8 ####[facility] [id number] [address] [place] CNPJenna 02-10-2023 CNPN Telephone (INTMWS) STEVE VIEIRA ([id number]) 1945 F Date Time Provider Department 02/10/23 PETER ELLIS INTMWS During your visit today, [...] hyperglycemia (HCC) [E11.65] Order(s):CBC [SQCBC] Order #: [id number] FUTURE COMP METABOLIC PANEL [SQCMP] Order #: [id number] FUTURE HGB A1C [EMYQP6E] Order #: [id number] FUTURE LIPID PANEL BASIC [SQLIPB] Order #: [id number] FUTURE ALBUMIN/CREAT RATIO RND UR [SQUACR] Order #: [id number] FUTURE TSH BLD [SQTSH] Order #: [id number] FUTURE T4 FREE/FREE THYROX [SQFT4] Order #: [id number] FUTURE T3 FREE BLD [SQFREET3] Order #: [id number] FUTURE VITAMIN B12 BLOOD [SQB12] Order #: [id number] FUTURE IRON + TIBC [SQIRON] Order #: [id number] FUTURE FOLATE SERUM [SQSERFOL] Order #: [id number] FUTURE FERRITIN BLD [SQFERR] Order #: [id number] FUTURE Prescriptions as of 02/13/2023 - metFORMIN [...] subcutaneously one time a week. Gets through [employer] [facility]. - empagliflozin (JARDIANCE) 25 mg tablet Take 1 tablet by mouth daily with breakfast. Gets through [employer] [facility]. - ferrous sulfate 325 mg (65 [...] Status:Closed by Barbara VILLAGOMEZ RN on 02/13/23 [facility] URINE CULTUREon 03-22-2019 Bacteria identified Cx Nom (U) Specimen source XXX: CLEAN VOIDED MIDSTREAM Performed at [place] [address] Service Cmnt XXX-Imp: NONE Performed at [place] [address] CC Number Ur: >100,000 CFU/mL Bacteria identified: Mixture of 3 or more organisms, no one type predominant, suggesting contamination during collection. Recollect if clinically indicated Performed at [address] [address] : FINAL 03/22/2019 [facility] Comment on above: Performed By: #### U ACUL #### [address] [address] C REACTIVE PROTEINon 019 CRP [Mass/Vol] Normal 0-2.0 [facility] Comment on above: Result Comment: 0.3 LESS THAN Performed at [address] [address] Performed By: #### U ACUL #### [address] [address] CKMB Isha 03-21-2019 CK.MB [Mass/Vol] 3.2 ng/mL Normal 0.0-5.0 [facility] Comment on above: Performed By: #### U ACUL #### [facility] [address] [place] [address] CKMB % INDEX Normal 0-3.5 [facility] Comment on above: Result Comment: 1.9 Performed at [facility] [address] [place] [address] Performed By: #### U ACUL #### [facility] [address] [address] CREATINE KINASEon 03-21-2019 CK [Catalytic activity/Vol] Normal 24-195 [facility] Comment on above: Result Comment: 167 Performed at [facility] [address] [place] [address] Performed By: #### C K #### [facility] [address] [address] HEMOGLOBIN A1con 03-21-2019 HbA1c (Bld) [Mass fraction] High 4.0-6.0 [facility] Comment on above: Result Comment: 7.7 Hemoglobin [...] mg/dl 10% ............................... 240 mg/dl Performed at [address] [place] [address] Performed By: #### U ACUL #### [facility] [address] [place] [address] HS TROPONIN Ton 03-21-2019 Troponin T.cardiac [Mass/Vol] Normal <15 [facility] Comment on above: Result Comment: 1 Performed at [address] [place] [address] Performed By: #### H STROP #### [address] [address] Result Comment: 13 Sex Specific Reference Range: [...] biotin administration. LDHon 03-21-2019 LDH Normal 91-227 [facility] Comment on above: Result Comment: 205 Performed at [address] [place] [address] Performed By: #### U ACUL #### [facility] [address] [place] [address] SEDIMENTATION RATEon 019 SEDIMENTATION RATE High 0-20 [facility] Comment on above: Result Comment: 39 Performed at [address] [place] [address] Performed By: #### U ACUL #### [facility] [address] [place] [address] TSHon 03-21-2019 TSH Qn Normal 0.27-4.20 [facility] Comment on above: Result Comment: 2.55 Performed at [facility] [address] [place] [address] [place] [address] Performed By: #### U ACUL #### [facility] [address] [place] [address] ANGIO CHESTon 03-20-2019 ANGIO CHEST *FINAL Date of Service: 03/20/2019 21:34 Adm #: [id number] Reading Dr:MITZY Ron Dr: MITZY LARA PROCEDURE: ANGIO CHEST - ICT 3081 REASON FOR EXAM: sob ? PE RESULT: [...] acute pathologic findings are identified. Hiatal hernia. [id number] This report has been produced using speech [...] Physician: MITZY LARA M.D. Original Transcribed by/Date: [facility] Mar 20 2019 9:36P Original Electronically Signed by/Date: MITZY LARA M.D. Mar 20 2019 9:36P Addendum Interpreting Physician: Addendum Transcribed by/Date: NO ADDENDUM Addendum Electronically Signed by/Date: [facility] BRAIN WO CONTRASTon 03-20-20 19 BRAIN WO CONTRAST *FINAL Date of Service: 03/20/2019 20:05 Adm #: [id number] Reading Dr:MITZY Ron Dr: MITZY LARA PROCEDURE: BRAIN WO CONTRAST [...] No acute intracranial pathologic findings are identified. [id number] This report has been produced using speech [...] Physician: MITZY LARA M.D. Original Transcribed by/Date: [facility] Mar 20 2019 8:10P Original Electronically Signed by/Date: MITZY LARA M.D. Mar 20 2019 8:10P Addendum Interpreting Physician: Addendum Transcribed by/Date: NO ADDENDUM Addendum Electronically Signed by/Date: Normal [facility] CBC with Diffon 03-20-2019 AB IMMATURE NEUT 0.02 K/UL Normal 0.0-0.1 [facility] Comment on above: Performed By: #### C BCD #### [facility] [address] [facility] [place] [address] ABS BASO 0.02 K/UL Normal 0.00-0.22 [facility] Comment on above: Performed By: #### C BCD #### [facility] [address], [place] [address] ABS EOS 0.02 K/UL Normal 0-0.45 [facility] Comment on above: Performed By: #### C BCD #### [facility] [address], [place] [address] ABS NEUTROPHILS 4.63 K/UL Normal 1.8-7.7 [facility] Comment on above: Performed By: #### C BCD #### [facility] [address], [place] [address] ABS.NEUT.CALCULATED Normal [facility] Comment on above: Result Comment: 4.63 Performed at [facility] [address] [place] [address] Performed By: #### C BCD #### [facility] [address], [place] [address] Basophils/100 WBC (Bld) 0.40 % Normal 0-1 L [facility] Comment on above: Performed By: #### C BCD #### [facility] [address], [place] [address] DIFF TYPE AUTO DIFF Normal [facility] Comment on above: Performed By: #### C BCD #### [facility] [address], [place] [address] Eosinophils/100 WBC (Bld) 0.40 % Normal 0-3 [facility] Comment on above: Performed By: #### C BCD #### [facility] [address], [place] [address] Erythrocyte distribution width (RBC) [Ratio] 15.5 % High 11.7-15.0 [facility] Comment on above: Performed By: #### C BCD #### [facility] [address], [place] [address] Hematocrit (Bld) [Volume fraction] 28.0 % Low 36-44 [facility] Comment on above: Performed By: #### C BCD #### [facility] [address], [place] [address] Hemoglobin (Bld) [Mass/Vol] 8.4 g/dL Low 12.0-15.0 [facility] Comment on above: Performed By: #### C BCD #### [facility] [address], [place] [address] Lymphocytes (Bld) [#/Vol] 0.40 10*3/uL Low 1.2-3.2 [facility] Comment on above: Performed By: #### C BCD #### [facility] [address], [place] [address] Lymphocytes/100 WBC (Bld) 7.30 % Low 20-40 [facility] Comment on above: Performed By: #### C BCD #### [facility] [address], [place] [address] MCH (RBC) [Entitic mass] 26.8 pg Normal 26-34 [facility] Comment on above: Performed By: #### C BCD #### [facility] [address], [place] [address] MCHC (RBC) [Mass/Vol] 30.0 % Low 31-37 [facility] Comment on above: Performed By: #### C BCD #### [facility] [address], [place] [address] MCV (RBC) [Entitic vol] 89.2 fL Normal 80-100 L [facility] Comment on above: Performed By: #### C BCD #### [facility] [address], [place] [address] MEAN PLT VOL 10.7 CU Normal 7.0-12.6 [facility] Comment on above: Performed By: #### C BCD #### [facility] [address], [place] [address] Monocytes (Bld) [#/Vol] 0.36 10*3/uL Normal 0-0.8 [facility] Comment on above: Performed By: #### C BCD #### [facility] [address], [place] [address] Monocytes/100 WBC (Bld) 6.60 % Normal 0-8 L [facility] Comment on above: Performed By: #### C BCD #### [facility] [address], [place] [address] Neutrophils/100 WBC (Bld) 0.40 % Normal 0.0-1.0 [facility] Comment on above: Performed By: #### C BCD #### [facility] [address], [place] [address] Neutrophils/100 WBC (Bld) 84.90 % High 50-70 [facility] Comment on above: Performed By: #### C BCD #### [facility] [address], [place] [address] NRBC'S 0 /100 WBC Normal 0 [facility] Comment on above: Performed By: #### C BCD #### [facility] [address], [place] [address] Platelets (Bld) [#/Vol] 152 10*3/uL Normal 150-450 [facility] Comment on above: Performed By: #### C BCD #### [facility] [address] [place] [address] RBC (Bld) [#/Vol] 3.14 M/UL Low 4.0-4.9 [facility] Comment on above: Performed By: #### C BCD #### [facility] [address] [place] [address] RDW-SD 50.2 FL Normal 37.0-54.0 [facility] Comment on above: Performed By: #### C BCD #### [facility] [address], [place] [address] WBC (Bld) [#/Vol] 5.5 10*3/uL Normal 4.5-11.0 [facility] Comment on above: Performed By: #### C BCD #### [facility] [address], [place] [address] COMPREHENSIVE METABOLIC PANE Fredrick 03-20-2019 Albumin [Mass/Vol] 4.2 g/dL Normal 3.5-5.0 [facility] Comment on above: Performed By: #### C TEACHER SPECIALIST #### [facility] [address], [place] [address] Albumin/Globulin [Mass ratio] 1.6 {ratio} Normal 1.5-3.0 [facility] Comment on above: Performed By: #### C TEACHER SPECIALIST #### [facility] [address] [place] [address] ALP [Catalytic activity/Vol] 80 U/L Normal 35-125 [facility] Comment on above: Performed By: #### C TEACHER SPECIALIST #### [facility] [address], [place] [address] ALT [Catalytic activity/Vol] 13 U/L Normal 5-40 [facility] Comment on above: Performed By: #### C TEACHER SPECIALIST #### [facility] [address], [place] [address] Anion gap [Moles/Vol] 16 mmol/L Normal 0-19 [facility] Comment on above: Performed By: #### C TEACHER SPECIALIST #### [facility] [address], [place] [address] AST [Catalytic activity/Vol] 24 U/L Normal 5-40 [facility] Comment on above: Performed By: #### C TEACHER SPECIALIST #### [facility] [address], [place] [address] Bilirubin [Mass/Vol] 0.4 mg/dL Normal 0.1-1.2 [facility] Comment on above: Performed By: #### C TEACHER SPECIALIST #### [facility] [address], [place] [address] Calcium [Mass/Vol] 9.1 mg/dL Normal 8.5-10.4 [facility] Comment on above: Performed By: #### C TEACHER SPECIALIST #### [facility] [address], [place] [address] Chloride [Moles/Vol] 105 mmol/L Normal 97-107 [facility] Comment on above: Performed By: #### C TEACHER SPECIALIST #### [facility] [address], [place] [address] CO2 [Moles/Vol] 19 mmol/L Low 24-31 [facility] Comment on above: Performed By: #### C TEACHER SPECIALIST #### [facility] [address], [place] [address] Creatinine [Mass/Vol] 1.1 mg/dL Normal 0.4-1.6 [facility] Comment on above: Performed By: #### C TEACHER SPECIALIST #### [facility] [address], [place] [address] GFR/1.73 sq M.predicted MDRD (S/P/Bld) [Vol rate/Area] Normal [facility] Comment on above: Result Comment: 51 GFR ml/min/1.73m2 Stage ----- 90 1 60-89 2 30-59 3 15-29 4 <15 5 For -Americans, multiply EGFR result by 1.210 Calculation not validated for patients under 18 years of age. Performed at [facility] [address] [place] [address] Performed By: #### C TEACHER SPECIALIST #### [facility] [address], [place] [address] Globulin (S) [Mass/Vol] 2.7 g/dL Normal 1.9-3.7 [facility] Comment on above: Performed By: #### C TEACHER SPECIALIST #### [facility] [address], [place] [address] Glucose [Mass/Vol] 177 mg/dL High 65-99 [facility] Comment on above: Performed By: #### C TEACHER SPECIALIST #### [facility] [address], [place] [address] Potassium [Moles/Vol] 3.9 mmol/L Normal 3.4-5.1 [facility] Comment on above: Performed By: #### C TEACHER SPECIALIST #### [facility] [address], [place] [address] Protein [Mass/Vol] 6.9 g/dL Normal 5.9-7.9 [facility] Comment on above: Performed By: #### C TEACHER SPECIALIST #### [facility] [address], [place] [address] Sodium [Moles/Vol] 140 mmol/L Normal 133-145 [facility] Comment on above: Performed By: #### C TEACHER SPECIALIST #### [facility] [address], [place] [address] Urea nitrogen [Mass/Vol] 27 mg/dL High 8-25 [facility] Comment on above: Performed By: #### C TEACHER SPECIALIST #### [facility] [address], [place] [address] Urea nitrogen/Creatinine [Mass ratio] 24.5 RATIO High 8-21 [facility] Comment on above: Performed By: #### C TEACHER SPECIALIST #### [facility] [address] [facility], [place] [address] D-DIMERon 03-20-2019 D-DIMER High 0.19-0.50 [facility] Comment on above: Result Comment: 1.51 THROMBOEMBOLIC [...] IN PATIENTS RECEIVING ANTI-COAGULATION THERAPY. Performed at [address] [address] Performed By: #### D DMR #### [address] [address] HS TROPONIN Ton 03-20-2019 Troponin T.cardiac [Mass/Vol] Normal <15 [facility] Comment on above: Result Comment: No p revious result Performed at [address] [address] Performed By: #### H STROP #### [address] [address] Result Comment: 12 Sex Specific Reference Range: [...] INR Coag (PPP) [Relative time] Normal 0.86-1.16 [facility] Comment on above: Result Comment: 1.1 INR Theraputic Range: 2.0-3.5 Performed at [address] [address] Performed By: #### P TB #### [address] [address] PT Coag (PPP) [Time] 11.4 s Normal 9.3-12.7 [facility] Comment on above: Performed By: #### P TB #### [address] [address] PT Coag (PPP) [Time] INFORMATION NOT REPORTED TO LABORATORY [facility] Comment on above: Performed By: #### P TB #### [facility] [address], [place] [address] UA-REFLEX TO CULTUREon 03-20 RBC (Bld) [#/Vol] High 0-3 [facility] Comment on above: Result Comment: 85 CORRECTED ON 03/20 AT 2021: PREVIOUSLY REPORTED NONE SEEN Performed By: #### U ACUL #### [facility] [address], [place] [address] BACT Positive [facility] Comment on above: Performed By: #### U ACUL #### [facility] [address], [place] [address] MICROSCOPIC AUTOMATIC MICROSCOPI C URINES [facility] Comment on above: Performed By: #### U ACUL #### [facility] [address], [place] [address] URINE HYALINE CAST 12 /LPF Normal [facility] Comment on above: Performed By: #### U ACUL #### [facility] [address], [place] [address] URINE SQUAMOUS EPI MODERATE Normal [facility] Comment on above: Performed By: #### U ACUL #### [facility] [address], [place] [address] WBC 11 /HPF High 0-3 [facility] Comment on above: Performed By: #### U ACUL #### [facility] [address], [place] [address] Bacteria identified Cx Nom (U) [facility] Comment on above: Result Comment: CULT URE BEING ORDERED BASED ON LEUKOCYTE ESTERASE Performed at [facility] [address] [place] [address] Performed By: #### U ACUL #### [facility] [address], [place] [address] BILI Negative Normal NEG [facility] Comment on above: Performed By: #### U ACUL #### [facility] [address], [place] [address] BLOOD MODERATE Abnormal NEG [facility] Comment on above: Performed By: #### U ACUL #### [facility] [address], [place] [address] Clarity (U) HAZY [facility] Comment on above: Performed By: #### U ACUL #### [facility] [address], [place] [address] Color (U) YELLOW Normal [facility] Comment on above: Performed By: #### U ACUL #### [facility] [address], [place] [address] GLUC 300 mg/dL Abnormal NEG [facility] Comment on above: Performed By: #### U ACUL #### [facility] [address], [place] [address] KET TRACE Abnormal NEG [facility] Comment on above: Performed By: #### U ACUL #### [facility] [address], [place] [address] LEUK SMALL Abnormal NEG [facility] Comment on above: Performed By: #### U ACUL #### [facility] [address], [place] [address] NIT Negative Normal NEG [facility] Comment on above: Performed By: #### U ACUL #### [facility] [address], [place] [address] pH (U) 5.5 [pH] Normal 4.6-8.0 [facility] Comment on above: Performed By: #### U ACUL #### [facility] [address], [place] [address] PROT 50 mg/dL Abnormal NEG [facility] Comment on above: Performed By: #### U ACUL #### [facility] [address], [place] [address] SP GRAV,URINE 1.031 High 1.005-1.030 [facility] Comment on above: Performed By: #### U ACUL #### [facility] [address], [place] [address] URO 2.0 MG/DL High 0-1.0 [facility] Comment on above: Performed By: #### U ACUL #### [facility] [address], [place] [address] No Panel Information [facility] Vital Signs Date Time Vital Sign Value Performing Clinician Facility 03-08-2025 12:43-0400 Body height 149.[address] Peter Ellis MD Work Phone: [facility] 03-08-2025 12:43-0400 Body weight 84.[address] Peter Ellis MD Work Phone: 5(951)328-181874 [place] [address] 03-08-2025 12:37-0400 Body temperature 97.8 [degF] Dr. Peter Ellis MD Work Phone: 4(850)589-775574 [place] [address] 03-08-2025 12:37-0400 Diastolic blood pressure 71 mm[Hg] Dr. Peter Ellis MD Work Phone: 5(563)485-347874 [place] [address] 03-08-2025 12:37-0400 Heart rate 96 /min Dr. Peter Ellis MD Work Phone: 6(278)021-557574 [place] [address] 03-08-2025 12:37-0400 Respiratory rate 16 /min Dr. Peter Ellis MD Work Phone: 6(980)105-860674 [place] [address] 03-08-2025 12:37-0400 SaO2% (BldA) [Mass fraction] 94 % Dr. Peter Ellis MD Work Phone: 1(825)448-570174 [place] [address] 03-08-2025 12:37-0400 Systolic blood pressure 122 mm[Hg] Dr. Peter Ellis MD Work Phone: 4(150)092-515274 [place] [address] 03-08-2025 06:00-0400 Body mass index (BMI) [Ratio] 37.7 kg/m2 Dr. Peter Ellis MD Work Phone: 2(525)402-180374 [place] [address] 03-05-2025 14:55-0400 Inhaled oxygen flow rate 1 L/min Dr. Peter Ellis MD Work Phone: 7(359)332-018974 [place] [address] 03-04-2025 09:00-0400 Inhaled oxygen concentration 30 % Dr. Peter Ellis MD Work Phone: 7(354)762-526874 [place] [address] 03-03-2025 16:20-0400 Body temperature 101 [degF] Dr. Peter Ellis MD Work Phone: 1(413)139-847374 [place] [address] 03-03-2025 16:20-0400 Diastolic blood pressure 74 mm[Hg] Dr. Peter Ellis MD Work Phone: 8(219)507-397274 [place] [address] 03-03-2025 16:20-0400 Heart rate 112 /min Dr. Peter Ellis MD Work Phone: 4(784)150-432774 [place] [address] 03-03-2025 16:20-0400 Respiratory rate 17 /min Dr. Peter Ellis MD Work Phone: 5(366)150-544674 [place] [address] 03-03-2025 16:20-0400 SaO2% (BldA) [Mass fraction] 100 % Dr. Peter Ellis MD Work Phone: 9(647)026-402174 [place] [address] 03-03-2025 16:20-0400 Systolic blood pressure 127 mm[Hg] Dr. Peter Ellis MD Work Phone: 0(685)261-881474 [address] [place] [address] 03-03-2025 15:22-0400 Inhaled oxygen concentration 60 % Dr. Peter Ellis MD Work Phone: 4(187)283-018874 [place] [address] 03-03-2025 14:20-0400 Inhaled oxygen flow rate 10 L/min Dr. Peter Ellis MD Work Phone: 7(170)767-905574 [place] [address] 03-03-2025 14:11-0400 Body height 149.[address] Peter Ellis MD Work Phone: 9(198)404-722774 [place] [address] 03-03-2025 14:11-0400 Body mass index (BMI) [Ratio] 37.6 kg/m2 Dr. Peter Ellis MD Work Phone: 3(831)774-914574 [place] [address] 03-03-2025 14:11-0400 Body weight 84.[address] Peter Ellis MD Work Phone: 6(689)941-584274 [place] [address] 11-12-2023 14:30-0400 Body temperature 97.59 [degF] Peter Ellis MD Work Phone: [facility] 11-12-2023 14:30-0400 Diastolic blood pressure 72 mm[Hg] Peter Ellis MD Work Phone: [facility] 11-12-2023 14:30-0400 Heart rate 93 /min Peter Ellis MD Work Phone: [facility] 11-12-2023 14:30-0400 Respiratory rate 18 /min Peter Ellis MD Work Phone: [facility] 11-12-2023 14:30-0400 SaO2% (BldA) [Mass fraction] 100 % Peter Ellis MD Work Phone: [facility] 11-12-2023 14:30-0400 Systolic blood pressure 124 mm[Hg] Peter Ellis MD Work Phone: [facility] 08-16-2023 16:38-0500 Body temperature 98.3 [degF] Dr. Peter Ellis Work Phone: [facility] 08-16-2023 16:38-0500 Diastolic blood pressure 57 mm[Hg] Dr. Peter Ellis Work Phone: 0(047)585-412510 [place] [address] 08-16-2023 16:38-0500 Heart rate 75 /min Dr. Peter Ellis Work Phone: 2(996)278-945910 [place] [address] 08-16-2023 16:38-0500 Respiratory rate 16 /min Dr. Peter Ellis Work Phone: 4(849)429-125010 [place] [address] 08-16-2023 16:38-0500 SaO2% (BldA) [Mass fraction] 99 % Dr. Peter Ellis Work Phone: [facility] 08-16-2023 16:38-0500 Systolic blood pressure 118 mm[Hg] Dr. Peter Ellis Work Phone: [facility] 08-16-2023 04:40-0500 Body mass index (BMI) [Ratio] 27.6 kg/m2 Dr. Peter Ellis Work Phone: 9(583)412-191810 [place] [address] 08-16-2023 04:40-0500 Body weight 62.[address] Peter Ellis Work Phone: 9(080)168-163310 [place] [address] 08-15-2023 10:09-0500 Body height 149.[address] Peter Ellis Work Phone: 3(861)168-096374 [place] [address] 08-15-2023 01:21-0500 Body temperature 97.8 [degF] Dr. Peter Ellis Work Phone: 2(564)580-789274 [place] [address] 08-15-2023 01:21-0500 Diastolic blood pressure 68 mm[Hg] Dr. Peter Ellis Work Phone: 5(227)287-902674 [place] [address] 08-15-2023 01:21-0500 Heart rate 68 /min Dr. Peter Ellis Work Phone: 5(833)511-762074 [place] [address] 08-15-2023 01:21-0500 Respiratory rate 15 /min Dr. Peter Ellis Work Phone: 0(468)538-431074 [place] [address] 08-15-2023 01:21-0500 SaO2% (BldA) [Mass fraction] 95 % Dr. Peter Ellis Work Phone: 0(181)131-116874 [place] [address] 08-15-2023 01:21-0500 Systolic blood pressure 129 mm[Hg] Dr. Peter Ellis Work Phone: 0(473)915-872774 [place] [address] 08-15-2023 00:16-0500 Body mass index (BMI) [Ratio] 29 kg/m2 Dr. Peter Ellis Work Phone: 8(608)024-791474 [place] [address] 08-15-2023 00:16-0500 Body weight 65.[address] Peter Ellis Work Phone: 7(964)127-101874 [place] [address] 08-14-2023 22:23-0500 Body height 149.[address] Peter Ellis Work Phone: 6(174)074-953074 [place] [address] 08-12-2023 14:15-0500 Body temperature 99.1 [degF] Dr. Peter Ellis Work Phone: 6(044)314-017174 [place] [address] 08-12-2023 14:15-0500 Diastolic blood pressure 87 mm[Hg] Dr. Peter Ellis Work Phone: 6(095)332-302774 [place] [address] 08-12-2023 14:15-0500 Heart rate 88 /min Dr. Peter Ellis Work Phone: [facility] 08-12-2023 14:15-0500 Respiratory rate 16 /min Dr. Peter Ellis Work Phone: [facility] 08-12-2023 14:15-0500 SaO2% (BldA) [Mass fraction] 98 % Dr. Peter Ellis Work Phone: [facility] 08-12-2023 14:15-0500 Systolic blood pressure 112 mm[Hg] Dr. Peter Ellis Work Phone: [facility] 08-12-2023 12:58-0500 Body height 149.[address] Peter Ellis Work Phone: [facility] 08-12-2023 12:58-0500 Body weight 58.[address] Peter Ellis Work Phone: [facility] 08-09-2023 22:33-0500 Body mass index (BMI) [Ratio] 26.2 kg/m2 Dr. Peter Ellis Work Phone: [facility] 02-28-2023 14:23-0400 Body temperature 97.81 [degF] Peter Ellis MD Work Phone: [facility] 02-28-2023 14:23-0400 Body weight 64.86 kg Peter Ellis MD Work Phone: [facility] 02-28-2023 14:23-0400 Diastolic blood pressure 65 mm[Hg] Peter Ellis MD Work Phone: [facility] 02-28-2023 14:23-0400 Heart rate 115 /min Peter Ellis MD Work Phone: [facility] 02-28-2023 14:23-0400 Respiratory rate 18 /min Peter lElis MD Work Phone: [facility] 02-28-2023 14:23-0400 SaO2% (BldA) [Mass fraction] 97 % Peter Ellis MD Work Phone: [facility] 02-28-2023 14:23-0400 Systolic blood pressure 104 mm[Hg] Peter Ellis MD Work Phone: [facility] 09-21-2022 17:26-0400 Respiratory rate 18 /min [facility] 09-21-2022 14:33-0400 SaO2% (BldA) [Mass fraction] 98 % [facility] 09-21-2022 14:24-0400 Body height 149.[address] [facility] 09-21-2022 14:24-0400 Body mass index (BMI) [Ratio] 30.1 kg/m2 [facility] 09-21-2022 14:24-0400 Body temperature 98 [degF] [facility] 09-21-2022 14:24-0400 Body weight 67.[address] [facility] 09-21-2022 14:24-0400 Diastolic blood pressure 62 mm[Hg] [facility] 09-21-2022 14:24-0400 Heart rate 88 /min [facility] 09-21-2022 14:24-0400 Systolic blood pressure 118 mm[Hg] [facility] 08-07-2022 13:10-0500 Body height 149.[address] [facility] 08-07-2022 13:10-0500 Body mass index (BMI) [Ratio] 29.2 kg/m2 [facility] 08-07-2022 13:10-0500 Body temperature 97.2 [degF] [facility] 08-07-2022 13:10-0500 Body weight 65.[address] [facility] 08-07-2022 13:10-0500 Diastolic blood pressure 91 mm[Hg] [facility] 08-07-2022 13:10-0500 Heart rate 91 /min [facility] 08-07-2022 13:10-0500 Respiratory rate 16 /min [facility] 08-07-2022 13:10-0500 SaO2% (BldA) [Mass fraction] 97 % [facility] 08-07-2022 13:10-0500 Systolic blood pressure 153 mm[Hg] [facility] 12-11-2021 14:27-0400 Body weight 68.95 kg Peter Ellis MD Work Phone: [facility] 12-11-2021 14:27-0400 Diastolic blood pressure 68 mm[Hg] Peter Ellis MD Work Phone: [facility] 12-11-2021 14:27-0400 Heart rate 96 /min Peter Ellis MD Work Phone: [facility] 12-11-2021 14:27-0400 SaO2% (BldA) [Mass fraction] 97 % Peter Ellis MD Work Phone: [facility] 12-11-2021 14:27-0400 Systolic blood pressure 120 mm[Hg] Peter Ellis MD Work Phone: [facility] Encounters Encounter Date Encounter Type Care Provider Facility Start: 03-31-2025 ambulatory Peter D Talampas Facilit y:[facility] Start: 03-31-[address] Juve Dejesus MD -[facility] Start: 03-10-2025 ambulatory Peter D Talampas Facilit y:[facility] Start: 03-10-[address] Juve Dejesus MD -[facility] Start: 03-08-2025 Non-patient / Non-visit Dr. Carl Campos [facility] Work Phone: Start: 03-07-2025 Non-patient / Non-visit Dr. Carl Campos [facility] Work Phone: Start: 03-06-2025 Non-patient / Non-visit Dr. Tiffani Marte MD [facility] Work Phone: Start: 03-05-2025 Non-patient / Non-visit Dr. Tiffani Marte MD [facility] Work Phone: Start: 03-04-2025 Non-patient / Non-visit Dr. Tiffani Marte MD [facility] Work Phone: Start: 03-04-2025 Non-patient / Non-visit Dr. Mario smith DO -[facility] Start: 03-03-2025 Non-patient / Non-visit Dr. Desiree miller MD -[place] [facility] Work Phone: Start: 03-03-2025 ambulatory Linda Marte Facility :[facility] Start: 03-03-2025 End: 03-08-2025 Evaluation and management of inpatient Dr. Desiree Trent MD -Intensive Care Unit Work Phone: Start: 12-14-2024 End: 12-14-[address] Peter Ellis MD Work Phone: -[facility] Start: 12-14-2024 End: 12-14-[address] Juve Dejesus MD -[facility] Start: 12-14-[address] Juve Dejesus MD -[facility] Start: 12-14-2024 End: 12-14-2024 ambulatory Peter Devan Talampvadim Facility:[facility] Start: 10-26-2024 End: 10-26-2024 ambulatory Peter D Talampas Facility:[facility] Start: 09-20-2024 End: 09-20-[address] Peter Ellis MD Work Phone: [facility] Work Phone: Start: 09-20-2024 End: 09-20-[address] Darcy Elias MD -[facility] Start: 09-20-2024 End: 09-20-2024 ambulatory Peter D Talampas Facility:[facility] Start: 06-21-2024 ambulatory Darcy Alexanderi ty:[facility] Start: 06-21-[address] Darcy Elias MD -[facility] Start: 11-25-2023 Telephone encounter Peter ortega MD Work Phone: [facility] [place] Comment on above: Medication Problem Start: 11-14-2023 Telephone encounter Sherwin BALLESTEROS Navigation Start: 11-13-2023 Telephone encounter Peter ortega MD Work Phone: [facility] [place] Comment on above: Insurance Authorizat ion (pilar) Start: 11-12-2023 End: 11-12-2023 ambulatory PETER ELLIS Facility:[facility] Start: 11-12-2023 End: 11-12-2023 Office outpatient [...] Start: 10-31-2023 End: 10-31-2023 ambulatory ORIN SOSA Facility:[facility] Start: 09-05-2023 End: 09-05-[address] Peetr Ellis Work Phone: [facility] Work Phone: Start: 09-05-2023 End: 09-05-[address] 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 Isabela Ellis Work Phone: [facility] Work Phone: Start: 08-15-2023 End: 08-16-2023 Evaluation and management of inpatient Dr. Peter Ellis Work Phone: [facility] 3 Work Phone: Start: 08-14-2023 Telephone encounter Peter ortega MD Work Phone: [facility] [place] Comment on above: SW Update Start: 08-13-2023 Patient Outreach Peter fierro MD Work Phone: [facility] [place] Comment on above: Transition Of Care [facility] HH, verbal order Start: 08-12-2023 Non-patient / Non-visit Dr. Isabela Ellis Work Phone: [facility] Work Phone: Start: 08-11-2023 Non-patient / Non-visit Dr. Isabela Ellis Work Phone: [facility] Work Phone: Start: 08-11-2023 Telephone encounter Peter ortega MD Work Phone: [facility] [place] Comment on above: HH Verbal orders Start: 08-10-2023 Non-patient / Non-visit Dr. Isabela Ellis Work Phone: [facility] Work Phone: Start: 08-09-2023 Non-patient / Non-visit Dr. Isabela Ellis Work Phone: [facility] Work Phone: Start: 08-09-2023 End: 08-12-2023 Evaluation and management of inpatient [facility]. [facility] Work Phone: Start: 07-04-2023 End: 07-04-2023 ambulatory PETER ELLIS Facility:[facility] Start: 04-21-2023 Telephone encounter Sherwin BALLESTEROS Navigation Comment on above: pt assistance forms Start: 03-04-2023 Telephone encounter Sherwin BALLESTEROS Navigation Start: 02-28-2023 End: 02-28-2023 Office outpatient visit 25 minutes Peter Ellis MD Work Phone: [facility] [place] Comment on above: Acquired hypothyroid ism (Primary Dx); Type 2 diabetes mellitus without complication, without long-term current use of insulin (HCC); Iron deficiency anemia, unspecified iron deficiency anemia type; B12 deficiency; Vitamin D deficiency; Encounter for long-term current use of medication Start: 02-28-2023 End: 02-28-2023 ambulatory PETER ELLIS Facility:[facility] Start: 02-13-2023 End: 02-13-2023 ambulatory PETER ELLIS Facility:[facility] Start: 02-10-2023 Telephone encounter Peter ortega MD Work Phone: [facility] [place] Comment on above: Patient Update Start: 09-21-2022 End: 09-21-2022 [facility] Start: 09-12-2022 Telephone encounter Jadon eden [facility] Work Phone: [facility] Comment on above: Adherence Packaging Start: 09-12-2022 End: 09-12-2022 ambulatory Jadon [facility] Work Phone: [facility] Comment on above: Medication managemen t (Primary Dx); Type 2 diabetes mellitus without complication, without long-term current use of insulin (HCC); Hyperlipidemia, unspecified hyperlipidemia type Start: 09-12-2022 End: 09-12-2022 Telemedicine consultation with patient Jadon Delgado [facility] Work Phone: [facility] Start: 08-07-2022 End: 08-07-2022 [facility] Start: 07-25-2022 End: 07-25-2022 Patient encounter procedure Jadon [facility] Work Phone: [facility] Comment on above: Type 2 diabetes angelica itus without complication, without long- term current use of insulin (HCC) (Primary Dx); Medication management Start: 07-09-2022 Telephone encounter Peter ortega MD Work Phone: [facility] [place] Comment on above: pt assistance moi resendiz Start: 06-20-2022 Telephone encounter Sherwin Simmons Comment on above: Social Work Services Start: 06-20-2022 End: 06-20-2022 Patient encounter procedure Jadon Delgado [facility] Work Phone: [facility] Comment on above: Controlled type 2 di abetes mellitus without complication, without long-term current use of insulin (HCC) (Primary Dx); Medication management Start: 05-30-2022 Telephone encounter Jadon eden [facility] Work Phone: [facility] Comment on above: Forms ([employer] PAP Application renewal 2022) Start: 05-17-2022 Refill Peter martin MD Work Phone: [facility] [place] Comment on above: Refill Request Start: 04-29-2022 Telephone encounter Jadon eden [facility] Work Phone: [facility] Comment on above: Appointment Start: 04-16-2022 Telephone encounter Ceci Mehta on [facility] Comment on above: Primary Care Pharmac y Appt. Start: 01-09-2022 End: 01-09-2022 Patient encounter procedure Harsha Ortiz MD Work Phone: Ophthalmology Comment on above: Combined forms of ag e-related cataract of both eyes (Primary Dx); Type 2 diabetes mellitus without retinopathy (HCC); [id number] corneal dystrophy of both eyes Start: 12-11-2021 End: 12-11-2021 Office outpatient visit 25 minutes Peter Ellis MD Work Phone: [facility] [place] Comment on above: Uncontrolled type 2 diabetes mellitus with hyperglycemia (HCC) (Primary Dx); Recurrent kidney stones; Esophageal reflux; Depression, unspecified depression type; Hyperlipidemia, unspecified hyperlipidemia type; Acquired hypothyroidism; B12 deficiency; Encounter for long-term current use of medication; Iron deficiency anemia, unspecified iron deficiency anemia type Start: 09-19-2021 Telephone encounter Maciej Lopez [facility] Work Phone: [facility] Comment on above: Opened In Error Procedures Date Procedure Procedure Detail Performing Clinician Start: 03-08-[address] Peter Ellis MD Work Phone: Start: 03-06-2025 Total iron binding c apacity measurement Dr. Peter Ellis MD Work Phone: Start: 03-05-2025 Hepatitis C antibody measurement Dr. Peter Ellis MD Work Phone: Comment on above: Reactive: Presumptiv e evidence of antibodies to HCV. Follow CDC recommendations for supplemental testing.Non-Reactive: Antibodies to HCV were not detected; does not exclude the possibility of exposure to HCVReactive Results are presumptive evidence of antibodies to HCV. Follow CDC recommendations for supplemental testing.Order confirmation testing: HCV Quant by PCR testing - HCVPCR [id number] Non Reactive: < 0.8 Equivocal: >/= 0.8 to < 1.0 Reactive: >/= 1.0The CDC requires that a reactive/equivocal HCV antibody result be sent out for confirmation. HCV Quant by PCR testing. Start: 03-03-2025 Computed tomography of abdomen and pelvis with intravenous contrast Dr. Peter Ellis MD Work Phone: Start: 03-03-2025 Carbon dioxide measu rement, partial pressure Dr. Peter Ellis MD Work Phone: Start: 03-03-2025 Gases blood o2 satur ation only direct sonu Dr. Peter Ellis MD Work Phone: Start: 03-03-2025 Measurement of parti al pressure of oxygen in blood Dr. Peter Ellis MD Work Phone: Start: 03-03-[address] Peter Ellis MD Work Phone: Start: 03-03-[address] Peter Ellis MD Work Phone: Start: 03-03-2025 Urnls dip stick/tabl et reagent auto microscopy Dr. Peter Ellis MD Work Phone: Start: 03-03-2025 Plain chest X-ray Dr. Ciaran Ellis MD Work Phone: Start: 03-03-[address] Peter Ellis MD Work Phone: Start: 03-03-[address] Peter Ellis MD Work Phone: Start: 03-03-2025 Gram stain microscopy Devan Ellis MD Work Phone: Start: 03-03-[address] Peter Ellis MD Work Phone: Start: 03-03-[address] Peter Ellis MD Work Phone: Start: 03-03-2025 SARS-CoV-2, Influenz a & RSV (PCR) Dr. Peter Ellis MD Work Phone: Start: 03-03-[address] Peter Ellis MD Work Phone: Start: [...] depression scr eening assessment Maciej Lopez [facility] Work Phone: Start: 03-20-2019 Electrocardiogram Plan of Treatment Date Care Activity Detail Author Start: 03-08-2025 Patient discharge [facility] Start: 03-08-2025 [facility] Start: 03-06-2025 Application of intermittent pneumatic compression device [facility] Start: 03-06-2025 Consultation [facility] Start: 03-04-2025 Respiratory therapy [facility] Start: 03-04-2025 [facility] Start: 03-04-2025 Speech therapy assessment [facility] Start: 03-04-2025 Inhalation therapy procedure [facility] Start: 03-03-2025 Following clinical p athway protocol [facility] Start: 03-03-2025 Assessment of risk o f venous thromboembolism [facility] Start: 03-03-2025 Care regimes management [facility] Start: 03-03-2025 Catheterization of vein [facility] Start: 03-03-2025 Consultation [facility] Start: 03-03-2025 Determination of Luis hmond Agitation Sedation Scale (RASS) score with assessment for d [facility] Start: 03-03-2025 Elevation of head of bed [facility] Start: 03-03-2025 Insertion of cathete r into peripheral vein [facility] Start: 03-03-2025 Measuring intake and output [facility] Start: 03-03-2025 Mouth care [facility] Start: 03-03-2025 Notification of physician [facility] Start: 03-03-2025 Providing care accor ding to standard [facility] Start: 03-03-2025 Referral for physica l therapy [facility] Start: 03-03-2025 Referral to occupati onal therapist [facility] Start: 03-03-2025 Referral to service [facility] Start: 03-03-2025 Tracheostomy care [facility] Start: 03-03-2025 Trial for daily interruption of sedation during mechanically assisted ventilation [facility] Start: 03-03-2025 Vital signs measurements [facility] Start: 03-03-2025 Respiratory therapy [facility] Start: 03-03-2025 End: 03-03-2025 [facility] Start: 03-03-2025 Admission procedure [facility] Start: 03-03-2025 Hospital admission, emergency, from emergency room, medical nature [facility] Start: 03-03-2025 Computed tomography of abdomen and pelvis with intravenous contrast Abdomen/Pelvis W IV Cont ONLY [facility] Start: 03-03-2025 Airway suction technique [facility] Start: 03-03-2025 Creatine kinase [Enz ymatic activity/volume] in Serum or Plasma [facility] Start: 03-03-2025 Triglycerides measurement [facility] Start: 03-03-2025 Consultation [facility] Start: 03-03-2025 End: 03-03-2025 [facility] Start: 03-03-2025 Bacteria identified in Blood by Culture Blood Culture [facility] Start: 03-03-2025 Bacteria identified in Urine by Culture Urine Culture [facility] Start: 03-03-2025 Microscopic observat ion [Identifier] in Unspecified specimen by Gram stain [facility] Start: 03-03-2025 Respiratory Culture Respiratory Cult ure [facility] Start: 03-03-2025 Consultation [facility] Start: 03-03-2025 Patient referral to dietitian [facility] Start: 03-03-2025 [facility] Start: 11-11-2024 Annual PCP Team Agency Sales Development Associate debbie Disease Visit Annual PCP Team Chronic Disease Visit [facility] Start: 08-25-2024 Annual PCP Team Agency Sales Development Associate debbie Disease Visit Annual PCP Team Chronic Disease Visit [facility] Start: 02-29-2024 ANNUAL PCP TEAM TRUST AND ESTATES PARALEGAL DEBBIE DISEASE VISIT ANNUAL PCP TEAM CHRONIC DISEASE VISIT [facility] Start: 02-14-2024 Hepatitis B screening URINE ALBUMIN:CREATININE RATIO [facility] Start: 02-14-2024 Hepatitis B surface antibody level LDL CHOLESTEROL [facility] Start: 01-31-2024 Hemoglobin A1c measurement HbA1C [facility] Start: 11-23-2023 Hemoglobin A1c measurement HbA1C [facility] Start: 11-12-2023 End: 11-12-2023 Patient encounter procedure 11/12/2023 2:00 PM EDT Office Visit [facility] [place] [address] [place] [address] Peter Ellis MD [address] [place] [address] 4 month follow up [facility] [place] Comment on above: 4 month follow up Start: 10-31-2023 End: 01-30-2024 Comprehensive metabolic 2000 panel - Serum or Plasma [facility] Work Phone: Comment on above: Expected: 10/31/2023 , Expires: 01/30/2024 Start: 10-31-2023 End: 01-30-2024 Ferritin [Mass/volume] in Serum or Plasma [facility] Comment on above: Expected: 10/31/2023 , Expires: 01/30/2024 Start: 10-31-2023 End: 01-30-2024 Hemoglobin A1c in Blood [facility] Comment on above: Expected: 10/31/2023 , Expires: 01/30/2024 Start: 10-31-2023 End: 01-30-2024 Iron and Iron binding capacity panel - Serum or Plasma [facility] Comment on above: Expected: 10/31/2023 , Expires: 01/30/2024 Start: 10-31-2023 End: 01-30-2024 Thyrotropin [Units/volume] in Serum or Plasma [facility] Comment on above: Expected: 10/31/2023 , Expires: 01/30/2024 Start: 10-31-2023 End: 01-30-2024 Thyroxine (T4) free [Mass/volume] in Serum or Plasma [facility] Comment on above: Expected: 10/31/2023 , Expires: 01/30/2024 Start: 10-31-2023 End: 01-30-2024 Triiodothyronine (T3) Free [Mass/volume] in Serum or Plasma [facility] Comment on above: Expected: 10/31/2023 , Expires: 01/30/2024 Start: 10-03-2023 Hemoglobin A1c measurement HbA1C [facility] Start: 08-16-2023 Patient discharge [facility] Start: 08-15-2023 Application of intermittent pneumatic compression device [facility] Start: 08-15-2023 Following clinical p athway protocol [facility] Start: 08-15-2023 Assessment of risk o f venous thromboembolism [facility] Start: 08-15-2023 Insertion of cathete r into peripheral vein [facility] Start: 08-15-2023 Measuring intake and output [facility] Start: 08-15-2023 Oxygen therapy [facility] Start: 08-15-2023 Providing care accor ding to standard [facility] Start: 08-15-2023 Provision of activit y privileges [facility] Start: 08-15-2023 Referral to occupati onal therapist [facility] Start: 08-15-2023 Referral to service [facility] Start: 08-15-2023 [facility] Start: 08-15-2023 Verification routine [facility] Start: 08-15-2023 Admission procedure [facility] Start: 08-15-2023 Hospital admission, emergency, from emergency room, medical nature [facility] Start: 08-15-2023 [facility] Start: 08-15-2023 Consultation [facility] Start: 08-14-2023 [facility] Start: 08-14-2023 Bacteria identified in Urine by Culture [facility] Start: 08-14-2023 Urine culture Urine Culture [facility] Start: 08-12-2023 Patient discharge [facility] Start: 08-12-2023 Referral to service [facility] Start: 08-11-2023 Administration of bl ood product [facility] Start: 08-11-2023 Referral to service [facility] Start: 08-09-2023 [facility] Start: 08-09-2023 [facility] Start: 08-09-2023 Following clinical p athway protocol [facility] Start: 08-09-2023 Ambulation without limitation [facility] Start: 08-09-2023 Assessment of risk o f venous thromboembolism [facility] Start: 08-09-2023 Care regimes management [facility] Start: 08-09-2023 Inhalation therapy procedure [facility] Start: 08-09-2023 Insertion of cathete r into peripheral vein [facility] Start: 08-09-2023 Notification of physician [facility] Start: 08-09-2023 Providing care accor ding to standard [facility] Start: 08-09-2023 Referral to occupati onal therapist [facility] Start: 08-09-2023 Referral to service [facility] Start: 08-09-2023 [facility] Start: 08-09-2023 Admission procedure [facility] Start: 08-09-2023 [facility] Start: 08-09-2023 Consultation [facility] Start: 08-09-2023 [facility] Start: 2023 End: 08-30-2023 25-hydroxyvitamin D3 [Mass/volume] in Serum or Plasma VITAMIN D 25 HYDROXY Lab Routine Vitamin D deficiency Expected: 2023 (Approximate), Expires: 08/30/2023 [facility] Work Phone: Comment on above: Expected: 2023 (Approximate), Expires: 08/30/2023 Start: 2023 Advance Directive Discussion Advance Directive Discussion [facility] Start: 2023 Behavioral Health Screening Behavioral Health Screening [facility] Start: 2023 End: 08-30-2023 CBC panel - Blood by Automated count CBC Lab Routine Encounter for long-term current use of medication Expected: 2023 (Approximate), Expires: 08/30/2023 [facility] Work Phone: Comment on above: Expected: 2023 (Approximate), Expires: 08/30/2023 Start: 2023 End: 08-30-2023 Comprehensive metabolic 2000 panel - Serum or Plasma COMP METABOLIC PANEL Lab Routine Encounter for long-term current use of medication Expected: 2023 (Approximate), Expires: 08/30/2023 [facility] Work Phone: Comment on above: Expected: 2023 (Approximate), Expires: 08/30/2023 Start: 2023 Depression Assessment Depression Ass essment [facility] Start: 2023 End: 08-30-2023 Hemoglobin A1c in Blood HGB A1C Lab Routine Type 2 diabetes mellitus without complication, without long-term current use of insulin (HCC) Expected: 2023 (Approximate), Expires: 08/30/2023 [facility] Work Phone: Comment on above: Expected: 2023 (Approximate), Expires: 08/30/2023 Start: 2023 End: 08-30-2023 Thyrotropin [Units/volume] in Serum or Plasma TSH BLD Lab Routine Acquired hypothyroidism Expected: 2023 (Approximate), Expires: 08/30/2023 [facility] Work Phone: Comment on above: Expected: 2023 (Approximate), Expires: 08/30/2023 Start: 2023 End: 08-30-2023 Thyroxine (T4) free [Mass/volume] in Serum or Plasma T4 FREE/FREE THYROX Lab Routine Acquired hypothyroidism Expected: 2023 (Approximate), Expires: 08/30/2023 [facility] Work Phone: Comment on above: Expected: 2023 (Approximate), Expires: 08/30/2023 Start: 2023 End: 08-30-2023 Triiodothyronine (T3) Free [Mass/volume] in Serum or Plasma T3 FREE BLD Lab Routine Acquired hypothyroidism Expected: 2023 (Approximate), Expires: 08/30/2023 [facility] Work Phone: Comment on above: Expected: 2023 (Approximate), Expires: 08/30/2023 Start: 05-16-2023 Hemoglobin A1c/Hemoglobin.total in Blood HBA1C [facility] Start: 04-15-2023 ANNUAL PCP TEAM TRUST AND ESTATES PARALEGAL DEBBIE DISEASE VISIT ANNUAL PCP TEAM CHRONIC DISEASE VISIT [facility] Start: 03-28-2023 End: 05-28-2023 CBC W Auto Differential panel - Blood CBC + DIFF Lab Routine Iron deficiency anemia, unspecified iron deficiency anemia type Expected: 03/28/2023 (Approximate), Expires: 05/28/2023 [facility] Work Phone: Comment on above: Expected: 03/28/2023 (Approximate), Expires: 05/28/2023 Start: 03-28-2023 End: 05-28-2023 Cobalamin (Vitamin B12) [Mass/volume] in Serum or Plasma VITAMIN B12 BLOOD Lab Routine B12 deficiency Expected: 03/28/2023 (Approximate), Expires: 05/28/2023 [facility] Work Phone: Comment on above: Expected: 03/28/2023 (Approximate), Expires: 05/28/2023 Start: 03-28-2023 End: 05-28-2023 Ferritin [Mass/volume] in Serum or Plasma FERRITIN BLD Lab Routine Iron deficiency anemia, unspecified iron deficiency anemia type Expected: 03/28/2023 (Approximate), Expires: 05/28/2023 [facility] Work Phone: Comment on above: Expected: 03/28/2023 (Approximate), Expires: 05/28/2023 Start: 03-28-2023 End: 05-28-2023 Iron and Iron binding capacity panel - Serum or Plasma IRON + TIBC Lab Routine Iron deficiency anemia, unspecified iron deficiency anemia type Expected: 03/28/2023 (Approximate), Expires: 05/28/2023 [facility] Work Phone: Comment on above: Expected: 03/28/2023 (Approximate), Expires: 05/28/2023 Start: 02-28-2023 Covid-19 Vaccine ( season) Covid-19 Vaccine ( season) [facility] Start: 02-28-2023 Influenza vaccination [facility] Start: 02-12-2023 End: 04-14-2023 ALBUMIN/CREAT RATIO RND UR ALBUMIN/CREAT RATIO RND UR Lab Routine Uncontrolled type 2 diabetes mellitus with hyperglycemia (HCC) Expected: 02/12/2023, Expires: 04/14/2023 [facility] Work Phone: Comment on above: Expected: 02/12/2023 , Expires: 04/14/2023 Start: 02-12-2023 End: 04-14-2023 Cobalamin (Vitamin B12) [Mass/volume] in Serum or Plasma VITAMIN B12 BLOOD Lab Routine B12 deficiency Expected: 02/12/2023, Expires: 04/14/2023 [facility] Work Phone: Comment on above: Expected: 02/12/2023 , Expires: 04/14/2023 Start: 02-12-2023 End: 04-14-2023 Comprehensive metabolic 2000 panel - Serum or Plasma COMP METABOLIC PANEL Lab Routine Uncontrolled type 2 diabetes mellitus with hyperglycemia (HCC) Expected: 02/12/2023, Expires: 04/14/2023 [facility] Work Phone: Comment on above: Expected: 02/12/2023 , Expires: 04/14/2023 Start: 02-12-2023 End: 04-14-2023 Ferritin [Mass/volume] in Serum or Plasma FERRITIN BLD Lab Routine Iron deficiency anemia, unspecified iron deficiency anemia type Expected: 02/12/2023, Expires: 04/14/2023 [facility] Work Phone: Comment on above: Expected: 02/12/2023 , Expires: 04/14/2023 Start: 02-12-2023 End: 04-14-2023 Folate [Mass/volume] in Serum or Plasma FOLATE SERUM Lab Routine B12 deficiency Iron deficiency anemia, unspecified iron deficiency anemia type Expected: 02/12/2023, Expires: 04/14/2023 [facility] Work Phone: Comment on above: Expected: 02/12/2023 , Expires: 04/14/2023 Start: 02-12-2023 End: 04-14-2023 Hemoglobin A1c in Blood HGB A1C Lab Routine Uncontrolled type 2 diabetes mellitus with hyperglycemia (HCC) Expected: 02/12/2023, Expires: 04/14/2023 [facility] Work Phone: Comment on above: Expected: 02/12/2023 , Expires: 04/14/2023 Start: 02-12-2023 End: 04-14-2023 Iron and Iron binding capacity panel - Serum or Plasma IRON + TIBC Lab Routine Iron deficiency anemia, unspecified iron deficiency anemia type Expected: 02/12/2023, Expires: 04/14/2023 [facility] Work Phone: Comment on above: Expected: 02/12/2023 , Expires: 04/14/2023 Start: 02-12-2023 End: 04-14-2023 Lipid 1996 panel - Serum or Plasma LIPID PANEL BASIC Lab Routine Hyperlipidemia, unspecified hyperlipidemia type Uncontrolled type 2 diabetes mellitus with hyperglycemia (HCC) Expected: 02/12/2023, Expires: 04/14/2023 [facility] Work Phone: Comment on above: Expected: 02/12/2023 , Expires: 04/14/2023 Start: 02-12-2023 End: 04-14-2023 Thyrotropin [Units/volume] in Serum or Plasma TSH BLD Lab Routine Acquired hypothyroidism Expected: 02/12/2023, Expires: 04/14/2023 [facility] Work Phone: Comment on above: Expected: 02/12/2023 , Expires: 04/14/2023 Start: 02-12-2023 End: 04-14-2023 Thyroxine (T4) free [Mass/volume] in Serum or Plasma T4 FREE/FREE THYROX Lab Routine Acquired hypothyroidism Expected: 02/12/2023, Expires: 04/14/2023 [facility] Work Phone: Comment on above: Expected: 02/12/2023 , Expires: 04/14/2023 Start: 02-12-2023 End: 04-14-2023 Triiodothyronine (T3) Free [Mass/volume] in Serum or Plasma T3 FREE BLD Lab Routine Acquired hypothyroidism Expected: 02/12/2023, Expires: 04/14/2023 [facility] Work Phone: Comment on above: Expected: 02/12/2023 , Expires: 04/14/2023 Start: 12-11-2022 ANNUAL PCP TEAM TRUST AND ESTATES PARALEGAL DEBBIE DISEASE VISIT ANNUAL PCP TEAM CHRONIC DISEASE VISIT [facility] Start: 12-06-2022 Hepatitis B surface antibody level LDL CHOLESTEROL [facility] Start: 09-21-2022 CT of head without contrast Brain/Head without Contrast [facility] Start: 09-21-2022 CT Unspecified body region WO contrast [facility] Start: 09-12-2022 End: 11-12-2022 Hemoglobin A1c in Blood HGB A1C Lab Routine Type 2 diabetes mellitus without complication, without long-term current use of insulin (HCC) Expected: 09/12/2022, Expires: 11/12/2022 [facility] Work Phone: Comment on above: Expected: 09/12/2022 , Expires: 11/12/2022 Start: 09-12-2022 End: 11-12-2022 Thyrotropin [Units/volume] in Serum or Plasma TSH BLD Lab Routine Acquired hypothyroidism Expected: 09/12/2022, Expires: 11/12/2022 [facility] Work Phone: Comment on above: Expected: 09/12/2022 , Expires: 11/12/2022 Start: 08-16-2022 COVID-19 VACCINE (5 - Pfizer series) COVID-19 VACCINE (5 - Pfizer series) [facility] Start: 08-13-2022 Adult depression scr eening assessment DEPRESSION SCREENING [facility] Start: 08-13-2022 ANNUAL PCP TEAM TRUST AND ESTATES PARALEGAL DEBBIE DISEASE VISIT ANNUAL PCP TEAM CHRONIC DISEASE VISIT [facility] Start: 08-08-2022 End: 10-08-2022 ALBUMIN/CREAT RATIO RND UR ALBUMIN/CREAT RATIO RND UR Lab Routine Type 2 diabetes mellitus without complication, without long-term current use of insulin (HCC) Expected: 08/08/2022, Expires: 10/08/2022 [facility] Work Phone: Comment on above: Expected: 08/08/2022 , Expires: 10/08/2022 Start: 08-08-2022 End: 10-08-2022 Basic metabolic 2000 panel - Serum or Plasma BASIC METABOLIC PNL Lab Routine Type 2 diabetes mellitus without complication, without long-term current use of insulin (HCC) Expected: 08/08/2022, Expires: 10/08/2022 [facility] Work Phone: Comment on above: Expected: 08/08/2022 , Expires: 10/08/2022 Start: 08-08-2022 Hepatitis B screening URINE ALBUMIN:CREATININE RATIO [facility] Start: 07-04-2022 End: 09-03-2022 Hemoglobin A1c in Blood HGB A1C Lab Routine Controlled type 2 diabetes mellitus without complication, without long-term current use of insulin (HCC) Expected: 07/04/2022, Expires: 09/03/2022 [facility] Work Phone: Comment on above: Expected: 07/04/2022 , Expires: 09/03/2022 Start: 07-04-2022 Hemoglobin A1c/Hemoglobin.total in Blood HBA1C [facility] Start: 2022 ADVANCE DIRECTIVE DISCUSSION ADVANCE DIRECTIVE DISCUSSION [facility] Start: 2022 DEPRESSION ASSESSMENT DEPRESSION ASS ESSMENT [facility] Start: 04-12-2022 End: 06-12-2022 CBC panel - Blood by Automated count CBC Lab Routine Iron deficiency anemia, unspecified iron deficiency anemia type Expected: 04/12/2022 (Approximate), Expires: 06/12/2022 [facility] Work Phone: Comment on above: Expected: 04/12/2022 (Approximate), Expires: 06/12/2022 Start: 04-12-2022 End: 06-12-2022 Cobalamin (Vitamin B12) [Mass/volume] in Serum or Plasma VITAMIN B12 BLOOD Lab Routine B12 deficiency Expected: 04/12/2022 (Approximate), Expires: 06/12/2022 [facility] Work Phone: Comment on above: Expected: 04/12/2022 (Approximate), Expires: 06/12/2022 Start: 04-12-2022 End: 06-12-2022 Comprehensive metabolic 2000 panel - Serum or Plasma COMP METABOLIC PANEL Lab Routine Uncontrolled type 2 diabetes mellitus with hyperglycemia (HCC) Expected: 04/12/2022 (Approximate), Expires: 06/12/2022 [facility] Work Phone: Comment on above: Expected: 04/12/2022 (Approximate), Expires: 06/12/2022 Start: 04-12-2022 End: 06-12-2022 Hemoglobin A1c in Blood HGB A1C Lab Routine Uncontrolled type 2 diabetes mellitus with hyperglycemia (HCC) Expected: 04/12/2022 (Approximate), Expires: 06/12/2022 [facility] Work Phone: Comment on above: Expected: 04/12/2022 (Approximate), Expires: 06/12/2022 Start: 04-12-2022 End: 06-12-2022 Iron and Iron binding capacity panel - Serum or Plasma IRON + TIBC Lab Routine Iron deficiency anemia, unspecified iron deficiency anemia type Expected: 04/12/2022 (Approximate), Expires: 06/12/2022 [facility] Work Phone: Comment on above: Expected: 04/12/2022 (Approximate), Expires: 06/12/2022 Start: 04-12-2022 End: 06-12-2022 Thyrotropin [Units/volume] in Serum or Plasma TSH BLD Lab Routine Acquired hypothyroidism Expected: 04/12/2022 (Approximate), Expires: 06/12/2022 [facility] Work Phone: Comment on above: Expected: 04/12/2022 (Approximate), Expires: 06/12/2022 Start: 04-12-2022 End: 06-12-2022 Thyroxine (T4) free [Mass/volume] in Serum or Plasma T4 FREE/FREE THYROX Lab Routine Acquired hypothyroidism Expected: 04/12/2022 (Approximate), Expires: 06/12/2022 [facility] Work Phone: Comment on above: Expected: 04/12/2022 (Approximate), Expires: 06/12/2022 Start: 04-03-2022 Glaucoma screening Dilated Retinal E xam [facility] Start: 04-03-2022 Hepatitis C antibody , confirmatory test DILATED RETINAL EXAM [facility] Start: 03-08-2022 Hemoglobin A1c/Hemoglobin.total in Blood HBA1C [facility] Start: 02-28-2022 Influenza vaccination INFLUENZA (#1) [facility] Start: 01-19-2022 3 comp foot exam completed DIABETIC FOOT EXAM [facility] Start: 01-19-2022 Diabetic foot examination Diabetic F oot Exam [facility] Start: 01-19-2022 Urine microalbumin profile DTA P,TDAP,TD (2 - Td or Tdap) [facility] Comment on above: Postponed from 02/24 (Declined at this time) Start: 11-05-2021 Hemoglobin A1c/Hemoglobin.total in Blood HBA1C [facility] Start: 09-21-2021 Hepatitis B surface antibody level LDL CHOLESTEROL [facility] Start: 09-15-2021 COVID-19 VACCINE (4 - Booster for Pfizer series) COVID-19 VACCINE (4 - Booster for Pfizer series) [facility] Start: 2021 ADVANCE DIRECTIVE DISCUSSION ADVANCE DIRECTIVE DISCUSSION [facility] Start: 2021 DEPRESSION ASSESSMENT DEPRESSION ASS ESSMENT [facility] Start: 02-24-2017 Urine microalbumin profile [facility] Start: 2003 Hepatitis B Vaccine (1 of 3 - Risk 3-dose series) Hepatitis B Vaccine (1 of 3 - Risk 3-dose series) [facility] Start: 2003 RSV Vaccine (1 - 1-d ose 60+ series) RSV Vaccine (1 - 1-dose 60+ series) [facility] ALBUMIN/CREAT RATIO RND UR ALBUM IN/CREAT RATIO RND UR Lab Routine Uncontrolled type 2 diabetes mellitus with hyperglycemia (HCC) 02/13/2023 9:53 AM EDT [facility] Work Phone: Bacteria identified in Sputum by Respiratory culture [facility] Cobalamin (Vitamin B 12) [Mass/volume] in Serum or Plasma VITAMIN B12 BLOOD Lab Routine B12 deficiency 02/13/2023 9:53 AM EDT [facility] Work Phone: Comprehensive metabo lic 2000 panel - Serum or Plasma COMP METABOLIC PANEL Lab Routine Uncontrolled type 2 diabetes mellitus with hyperglycemia (HCC) 02/13/2023 9:53 AM EDT [facility] Work Phone: Ferritin [Mass/volum e] in Serum or Plasma FERRITIN BLD Lab Routine Iron deficiency anemia, unspecified iron deficiency anemia type 02/13/2023 9:53 AM EDT [facility] Work Phone: Folate [Mass/volume] in Serum or Plasma FOLATE SERUM Lab Routine B12 deficiency Iron deficiency anemia, unspecified iron deficiency anemia type 02/13/2023 9:53 AM EDT [facility] Work Phone: Hemoglobin A1c in Blood HGB A1C Lab Routine Uncontrolled type 2 diabetes mellitus with hyperglycemia (HCC) 02/13/2023 9:53 AM T [facility] Work Phone: Iron and Iron bindin g capacity panel - Serum or Plasma IRON + TIBC Lab Routine Iron deficiency anemia, unspecified iron deficiency anemia type 02/13/2023 9:53 AM T [facility] Work Phone: Lipid 1996 panel - S edgardo or Plasma LIPID PANEL BASIC Lab Routine Hyperlipidemia, unspecified hyperlipidemia type Uncontrolled type 2 diabetes mellitus with hyperglycemia (HCC) 02/13/2023 9:53 AM [facility] Work Phone: Patient Education ED Head Injury (Adult) [facility] Work Phone: Patient referral [facility] Work Phone: Thyrotropin [Units/v olume] in Serum or Plasma TSH BLD Lab Routine Acquired hypothyroidism 02/13/2023 9:53 AM T [facility] Work Phone: Thyroxine (T4) free [Mass/volume] in Serum or Plasma T4 FREE/FREE THYROX Lab Routine Acquired hypothyroidism 02/13/2023 9:53 AM [facility] Work Phone: Triiodothyronine (T3 ) Free [Mass/volume] in Serum or Plasma T3 FREE BLD Lab Routine Acquired hypothyroidism 02/13/2023 9:53 AM [facility] Work Phone: Troponin T.cardiac [Mass/volume] in Serum or Plasma by High sensitivity method [facility] Troponin T.cardiac [Mass/volume] in Serum or Plasma by High sensitivity method [facility] Urine culture [facility] End: 09-25-2024 US Abdomen RUQ US ABD RIGHT UPPER QUADRANT Radiology Routine Elevated LFTs 1 Occurrences starting 08/27/2023 until 09/25/2024 [facility] Work Phone: Comment on above: 1 Occurrences starti ng 08/27/2023 until 09/25/2024 [facility] Immunizations Immunization Date Immunization Notes Care Provider Martin spear 12-09-2023 Covid (Spikevax) Dr. Peter hernandez MD Work Phone: [facility] 08-10-2023 Influenza High-Dose Quadrivalent Dr. Peter Ellis Work Phone: [facility] 09-21-2022 tetanus toxoid, redu cynthia diphtheria toxoid, and acellular pertussis vaccine, adsorbed [facility] 04-15-2022 COVID-19 booster vaccine, age 12+ yr, bivalent ([employer]) Ceci Mancilla [facility] 04-15-2022 influenza, high-dose , quadrivalent vaccine (FLUZONE HIGH DOSE QUADRIVALENT) Ceci Mancilla [facility] 04-15-2022 influenza virus vacc ine, unspecified formulation Peter Ellis MD Work Phone: [facility] 05-18-2021 Cov[facility] (Pf[facility] 05-18-2021 [facility]: [facility] Work Phone: 03-15-2021 influenza, injectabl e, quadrivalent, preservative free Dr. Peter Ellis Work Phone: [facility] 03-15-2021 zoster vaccine recombinant K[facility] Work Phone: [facility] Work Phone: 10-03-2020 COVID-19 vaccine, ag e 12+ yr ([employer] - PURPLE TOP) Maciej Lopez [facility] Work Phone: [facility] Work Phone: 09-12-2020 COVID-19 vaccine, ag e 12+ yr [facility] Work Phone: [facility] Work Phone: 03-28-2020 influenza, high-dose , quadrivalent vaccine (FLUZONE HIGH DOSE QUADRIVALENT) [facility] Work Phone: [facility] Work Phone: 03-31-2019 influenza, high dose seasonal, preservative-free [facility] Work Phone: [facility] Work Phone: 03-31-2019 Influenza, injectabl e, Madin Chasity Canine Kidney, preservative free, quadrivalent Dr. Peter Ellis Work Phone: [facility] 02-27-2018 influenza, seasonal, injectable [facility] Work Phone: [facility] Work Phone: 02-27-2018 Seasonal trivalent influenza vaccine, adjuvanted, preservative free Dr. Peter Ellis Work Phone: [facility] 03-06-2017 Influenza, high dose seasonal Dr. Peter Ellis MD Work Phone: [facility] 03-06-2017 influenza, high dose seasonal, preservative-free [facility] Work Phone: [facility] 03-23-2016 influenza, high dose seasonal, preservative-free [facility] Work Phone: [facility] 03-23-2016 influenza, injectabl e, quadrivalent, preservative free Dr. Peter Ellis Work Phone: [facility] 03-15-2015 pneumococcal conjuga te vaccine, 13 valent [facility] Work Phone: [facility] 03-08-2015 influenza, seasonal, injectable [facility] Work Phone: [facility] Work Phone: 03-08-2015 Seasonal, quadrivale nt, recombinant, injectable influenza vaccine, preservative free Dr. Peter Ellis Work Phone: [facility] 03-05-2014 influenza, injectabl e, quadrivalent, preservative free Dr. Peter Ellis Work Phone: [facility] 03-05-2014 influenza, seasonal, injectable [facility] Work Phone: [facility] 05-21-2013 typhoid vaccine, unspecified formulation [facility] Work Phone: [facility] Work Phone: 05-03-2013 zoster vaccine, live [facility] Work Phone: [facility] Work Phone: 04-08-2013 influenza virus vacc ine, unspecified formulation [facility] Work Phone: [facility] Work Phone: 04-05-2013 influenza virus vacc ine, unspecified formulation [facility] Work Phone: [facility] 03-22-2013 hepatitis A vaccine, adult dosage Dr. Peter Ellis Work Phone: [facility] 03-22-2013 hepatitis A vaccine, unspecified formulation [facility] Work Phone: [facility] Work Phone: 03-04-2012 pneumococcal polysaccharide vaccine, 23 valent [facility] Work Phone: [facility] 02-24-2007 hepatitis A vaccine, adult dosage [facility] Work Phone: [facility] 02-24-2007 tetanus toxoid, redu cynthia diphtheria toxoid, and acellular pertussis vaccine, adsorbed [facility] Work Phone: [facility] 02-24-[address] Peter Ellis Work Phone: [facility] 03-17-2000 measles, mumps and rubella virus vaccine [facility] Work Phone: [facility] Payers Date Payer Category Payer Unknown [id number] 2024 Medicare [id number] 2024 Unknown [id number] 2024 Unknown [id number] 2024 Self-pay [id number] 2022 Unknown [id number] 2021 Medicare AETNA MEDICARE A ETNA MEDICARE PPO [id number] 2021-Present [phone] [address] [place] [address] PPO [id number] 2021 Medicare [id number] 2005 Unknown NIRMAL [id number] Medicare [facility] MEDICARE ADVANTAGE [id number] Private Health Insurance [facility] [id number] Unknown [id number] Unknown [id number]. 462 Unknown [id number]. 462 Unknown [id number]. 462 Unknown [id number]. 462 Unknown [id number]. 462 Unknown [id number]. 462 Unknown [id number]. 462 Unknown [id number] [id number]. 462 Unknown [id number]. 462 Unknown [id number]. 462 Unknown [id number] [id number]. 462 Unknown [id number]. 462 Unknown [id number]. 462 Social History Date Type Detail Facility Start: 11-29-2011 End: 03-03-2025 Tobacco smoking status OHIS Never smoked tobacco [facility] Work Phone: Start: 08-22-2021 End: 11-12-2023 Alcohol intake Current non-drinker of alcohol (finding) [facility] Start: 08-30-2019 History SDOH Alcohol Frequency 1 [facility] Start: 08-30-2019 History SDOH Social Connections Phone 4 [facility] Start: 08-30-2019 History SDOH Social Connections Get Together 2 [facility] Start: 08-30-2019 History SDOH Physica l Activity DPW 0 [facility] Start: 08-30-2019 History SDOH Financial 3 [facility] Start: 08-30-2019 Education 17 [facility] Start: 1945 Sex Assigned At Not on file [facility] Start: 12-30-2021 End: 04-15-2022 Exposure to SARS-CoV-2 (event) Not sure [facility] Start: 11-29-2011 Tobacco use and exposure Smoke less tobacco non-user [facility] Start: 05-28-2019 End: 03-03-2025 Tobacco smoking status NHIS Unknown if ever smoked [facility] Start: 04-16-2019 None [facility] Start: 04-16-2019 Alone [facility] Start: 05-28-2019 Non-smoker [facility] Start: 1945 Sex Assigned At Female [facility] Start: 08-30-2019 End: 02-28-2023 History of Social function [facility] Start: 08-30-2019 End: 02-28-2023 Social connection and isolation panel [facility] Do you belong to any clubs or organizations such as bahai groups, unions, fraternal or athletic groups, or school groups? No [facility] Are you now , , , , never or living with a partner? [facility] How often to you hav e a drink containing alcohol? Never [facility] Average Number of Drinks Not on file [facility] Work Phone: How hard is it for y ou to pay for the very basics like food, housing, medical care, and heating Somewhat hard [facility] Do you feel stress - tense, restless, nervous, or anxious, or unable to sleep at night because your mind is troubled all the time - these days [OSQ] Only a little [facility] (I/We) worried wheth er (my/our) food would run out before (I/we) got money to buy more. Never true [facility] Start: 10-14-2024 Sex Female (finding) [facility] Medical Equipment Procedure Code Equipment Code Equipment Original Text Equipment Identifier Dates Mrkr 8ga Site Mam[facility] - [id number] Start: 02-22-2013 [id number], [id number] Start: 01-10-2021 Comment on above: Test blood sugar(s) 2 times daily. Dx: Type 2 DM - Controlled E11.9 Insulin: No Test blood sugar(s) 2 daily. Dx: E11.9 Insulin: No Goals Date Patient Goal Desired Activity /State Functional Status Date Assessment Result Facility 03-08-2025 Functional status Ambulates [facility] Work Phone: 08-16-2023 Functional status Chair [facility] Work Phone: 08-12-2023 Functional status Ambulates [facility] Work Phone: 08-11-2023 Functional status Tolerates Activity Well [facility] Work Phone: Mental Status Date Assessment Result Facility 03-08-2025 Cognitive function Voice/Name [facility] Work Phone: 08-16-2023 Cognitive function Appropriate;Cooperativ e [facility] Work Phone: 08-15-2023 Cognitive function Level Of Cons ciousness Awake;Alert;Appropriate [facility] Work Phone: 08-12-2023 Cognitive function Voice/Name [facility] Work Phone: 08-12-2023 Cognitive function Cooperative [facility] Work Phone: 08-11-2023 Cognitive function Comprehension Ability Demonstrates ability to follow instructions/comprehend [facility] Work Phone: 08-10-2023 Cognitive function Memory Description Int act [facility] Work Phone: Clinical Notes 01-25-2016 to 03-08-2025 Note Date & Type Note Facility 03-08-2025 Discharge summary Note Date/Time March 08, 2025 12:39pm [facility] Medical Records Department [address] [place] [address] Discharge Summary 03/08/25 1238 MR#: [id number] Acct: [id number] Name: STEVE VIEIRA Rep #:[id number] : 1945 79 From: Carl Couch DO PCP: Dr. Peter Ellis MD Status:AD M IN Location: [place] [id number] Providers Date of Admission: 03/03/25 Primary Care Physician: Dr. Peter Ellis MD Consultations 03/03/25 16:59 Consult: Support Services Coordinator / Pulmonary Medicine Routine Consulting Provider: [facility] Reason for Consult: Vent management, sepsis EMERGENT Consult: No Notified: Yes Date Notified: 03/03/25 Time Notified: 17:20 Method of Notification: Verbal 03/06/25 08:18 Consult: Infectious Disease Routine Consulting Provider: Ab Nur Reason for Consult: E coli bacteremia EMERGENT Consult: No Notified: Yes Date Notified: 03/07/25 Time Notified: 06:54 Method of Notification: Text Reason For Visit: SEPSIS Diagnosis Discharge Diagnosis (1) Acute hypoxic respiratory failure: Status: Acute Code(s): J96.01 - Acute respiratory failure with hypoxia (2) Sepsis: Status: Acute Code(s): A41.9 - Sepsis, unspecified organism (3) Hyperlipidemia: Status: Acute Code(s): E78.5 - Hyperlipidemia, unspecified Plan Acute hypoxic respiratory failure due to probable aspiration pneumonia * Was intubated on admission due to hypoxia. Now extubated and down to room air today. * Respiratory panel negative. COVID, flu and RSV also negative. * Blood, sputum and urinary cultures all growing ESBL E. coli. Sputum cultures also growing MRSA. On IV vancomycin and Zosyn. * ID following and ordered PO linezolid and IM ertapenem. Pneumonia * E. coli and MRSA. * iglesia and vancomycin. Outpt PO linezolid and IM ertapenem. * ID following Sepsis due to UTI and pneumonia * Was tachycardic and tachypneic on admission was also febrile with temperature up to 102.6. Lactic acid was elevated at 3.4 and WBC was 13.5. Bilirubin was elevated and she was also tachypneic * Urinalysis did show evidence of elevated nitrites and leukocyte esterase as well as elevated WBC but no bacteria. * Currently on broad-spectrum IV antibiotics. Blood and urine cultures as well as sputum cultures growing E. coli * ID consulted. E. coli bacteremia: As above Elevated troponins: * Likely due to demand ischemia. No chest pain. Stable. * Initial troponin was 54 but subsequently trended down to 25. This was likely due to her hypoxia. Elevated liver enzymes, * total bilirubin today is down to 0.94. However AST and ALT have trended up slightly though ALP has trended down. Direct bilirubin is 0.7 which is slightly elevated. * CT abdomen and pelvis did not show any visualization of the gallbladder and showed no significant biliary dilatation. * Will check hepatitis panel Pancytopenia: * Hemoglobin is 7.7 with WBC of 4.3 and platelets of 145. Platelets up from yesterday. * Hemoglobin has of dropped from 10.4 when she was admitted. * Will check stool for occult blood and check iron panel and ferritin. * Hold all blood thinners Chronic medical conditions: * GERD: On PPI * type 2 diabetes mellitus: On insulin sliding scale. Accu-Cheks ACHS. * Depression and anxiety: On Lexapro * Hypothyroidism: On Synthroid Medications at Discharge Home Medications levothyroxine 50 mcg tablet 50 mcg PO .TUTHUSASU thyroid 06/07/14 atorvastatin 40 mg tablet 40 mg PO QHS CHOLESTEROL 05/28/19 escitalopram oxalate 10 mg tablet 10 mg PO DAILY DEPRESS 05/28/19 levothyroxine 25 mcg tablet 75 mcg PO .MWF thyroid 08/09/23 acetaminophen 325 mg tablet 650 mg (2 x 325 mg) PO Q6H PRN PRN Pain 1-10 Or Fever>100.7 #0 tabs 12/06/23 melatonin 3 mg tablet 3 mg PO QHS PRN PRN Insomnia #0 tabs 12/06/23 menthol 0.44 %-zinc oxide 20.6 % topical ointment (Calmoseptine) 1 applic topical BID redness 12/06/23 acetaminophen 650 mg rectal suppository 650 mg KS Q4H PRN fever or pain 03/03/25 bisacodyl 10 mg rectal suppository 10 mg KS DAILY PRN constipation 03/03/25 cholecalciferol (vitamin D3) 1,250 mcg (50,000 unit) capsule 1,250 mcg PO .Qmonday supplement 03/03/25 ferrous sulfate 325 mg (65 mg iron) tablet (FeroSul) 325 mg PO BID iron supplement 03/03/25 guaifenesin 100 mg/5 mL oral liquid (Adult Tussin Chest Congestion) 200 mg PO Q4H PRN congestion, cough 03/03/25 magnesium hydroxide 400 mg/5 mL oral suspension (Milk of Magnesia) 30 ml PO DAILY PRN constipation 03/03/25 oxybutynin chloride 10 mg tablet,extended release 24 hr 10 mg PO .HS bladder spasms 03/03/25 pantoprazole 20 mg tablet,delayed release 20 mg PO DAILY GERD 03/03/25 sennosides 8.6 mg-docusate sodium 50 mg tablet (Stool Softener-Stimulant Laxative) 1 tab PO DAILY constipation 03/03/25 ertapenem 1 gram solution for injection 1 g IM DAILY 3 days #5 ea 03/08/25 insulin glargine 100 unit/mL (3 mL) subcutaneous pen (Lantus Solostar U-100 Insulin) 20 unit (0.2 mL) subcut .am diabetes #1 mL 03/08/25 insulin lispro 100 unit/mL subcutaneous pen (Humalog KwikPen (U-100) Insulin) See Protocol subcut ACHS #0 mL 03/08/25 linezolid 600 mg tablet 600 mg PO BID 3 days #6 tabs 03/08/25 Hospital Course Operations None Procedures None Summary of Care Provided Minutes Spent on Discharge: 32 Weight / BMI Weight Weight: 84.9 kg Body Mass Index (BMI) 37.7 ABG / Lab / Microbiology Data 03/08/25 06:52 03/08/25 06:52 Laboratory: Laboratory Results - last 24 hr 03/07/25 16:08: POC Glucose 204 H 03/07/25 21:11: POC Glucose 166 H 03/08/25 06:52: WBC 4.7, RBC 2.80 L, Hgb 8.6 L, Hct 26.8 L, MCV 95.7, MCH 30.7, MCHC 32.1, RDW Std Deviation 48.3 H, RDW Coeff of Nicholas 13.7, Plt Count 149 L, MPV10.4, Immature Gran % (Auto) 1.900 H, Neut % (Auto) 71.0 H, Lymph % (Auto) 19.7,[place] % (Auto) 5.7, Eos % (Auto) 1.3, Baso % (Auto) 0.4, Absolute Neuts (auto) 3.4, Absolute Lymphs (auto) 0.93, Nucleated RBC % 0, Sodium 140, Potassium 3.2 L, Chloride 106, Carbon Dioxide 24.0, Anion Gap 10, BUN 6, Creatinine 0.60 L, Estim Creat Clear Calc 53.34, Est GFR (MDRD) Non-Af 90, BUN/Creatinine Ratio 10.3, Glucose 172 H, Calcium 8.4, Vancomycin Trough 13.0 03/08/25 11:12: POC Glucose 170 H Microbiology: Microbiology 03/03/25 14:54 Sputum, Induced/Lukens Gram Stain - Final 03/03/25 14:54 Sputum, Induced/Lukens Respiratory Culture - Final ESBL Escherichia coli Meth. resistant Staph. aureus 03/03/25 14:48 Urine Catheter - Catheter Urine Culture - Final ESBL Escherichia coli 03/03/25 14:10 Blood Culture (Wb) - Venous Blood Culture - Final GNR lactose casing in line feeder 03/03/25 14:20 Blood Culture (Wb) - Venous Blood Culture - Final ESBL Escherichia coli 03/03/25 17:25 Mucosa - Nasopharyngeal Respiratory Panel (PCR) - Final 03/03/25 14:48 Mucosa - Nose SARS-CoV-2, Influenza & RSV (PCR) - Final D/C Instructions DC O2, CPAP, BIPAP Needs Home O2 Discharge instructions: No Meaningful Use Info Meaningful Use Meaningful Use Diagnoses (Choose all that apply): None applicable Discharge Plan Admission Admit Date/Time: 03/03/25 16:08 Primary Reason for Your Visit: pneumonia Attending Provider: Carl Couch Primary Care Provider: Peter Ellis Consulting Providers: Desiree Trent; Esa Ponce; Giovanni Batista; Geovany Garcia; Mario Dunaway; Mitzy Mohamud; Deng Burnette; Caden Kurtz; Frances Natarajan; Mason Mina; Chalino Harp; Matthew Calixto; Juana Mendez; Oni Perkins; Casi,Germania; Donna,Antione; Roosevelt,Kev; Reymundo,Gibson; Anna,Omar; Anabel Cummins; Ingrid Fonseca; Warren Stockton; Moses Damon; Gabino Malik; Donell Rendon; Terry Flores; Amira Mai NP; Debra Bunn; Linda Marte; bA Nur Discharge Orders/Prescriptions Prescriptions: New linezolid 600 mg tablet 600 mg PO BID 3 Days Qty: 6 0RF ertapenem 1 gram recon soln 1 g IM DAILY 3 Days Qty: 5 0RF Rx Instructions: Reconstitute with lidocaine. 1gm IM daily for 5 days. Dx: ESBL ecoli bacteremia. insulin lispro [Humalog KwikPen Insulin] 100 unit/mL [...] Greater than 449 call physician Protocol Text: Suggested for: - Patients on Total Daily Insulin Dose of 37-55 units - Obese, infected, or steroid patients MEDIUM DOSING ALGORITHIM Continued levothyroxine 50 MCG tablet 50 mcg PO .LEOPOLDO Patient Comments: THYROID MEDICATION atorvastatin 40 MG tablet 40 mg PO QHS escitalopram oxalate 10 MG tablet 10 mg PO DAILY levothyroxine 25 mcg tablet 75 mcg PO .MWF acetaminophen 325 mg Tablet 650 mg PO Q6H PRN PRN (Reason: Pain 1-10 Or Fever>100.7) Qty: 0 0RF melatonin 3 mg Tablet 3 mg PO QHS PRN PRN (Reason: Insomnia) Qty: 0 0RF menthol-zinc oxide [Calmoseptine] 0.44-20.6 % Ointment 1 applic topical BID Protocol: *Topical Application Instructions APPLICATION INSTRUCTIONS: apply to buttock Rx Instructions: Apply to bilat buttocks ferrous sulfate [FeroSul] 325 mg (65 mg iron) tablet 325 mg PO BID oxybutynin chloride 10 mg tablet extended release 24hr 10 mg PO .HS sennosides-docusate sodium [Stool Softener-Stimulant Laxat] 8.6-50 mg Tablet 1 tab PO DAILY pantoprazole 20 mg Tablet,Delayed Release (Dr/Ec) 20 mg PO DAILY cholecalciferol (vitamin D3) 1,250 mcg (50,000 unit) capsule 1,250 mcg PO .Qmonday Rx Instructions: Give one capsule in the morning every Friday for low vitamin D3 level for 168days acetaminophen 650 mg suppository 650 mg KS Q4H PRN (Reason: fever or pain) bisacodyl 10 mg suppository 10 mg KS DAILY PRN (Reason: constipation) magnesium hydroxide [Milk of Magnesia] 400 mg/5 mL suspension 30 ml PO DAILY PRN (Reason: constipation) guaifenesin [Adult Tussin Chest Congestion] 100 mg/5 mL liquid 200 mg PO Q4H PRN (Reason: congestion, cough) Changed insulin glargine [Lantus Solostar U-100 Insulin] 100 unit/mL (3 mL) insulin pen 20 unit subcut .am Qty: 1 0RF Discontinued insulin lispro [Humalog U-100 Insulin] 100 unit/mL solution 1 sliding scale dose subcut .AC Rx Instructions: BS 151-200=2 units 201-250= 4 units 251-300= 6 units 301-350= 8 units 351-400= 10 units 401-450=12 units >450 call MD insulin glargine [Lantus Solostar U-100 Insulin] 100 unit/mL (3 mL) insulin pen 26 unit subcut QPM insulin lispro [Humalog KwikPen Insulin] 100 unit/mL Insulin Pen 5 unit subcut BIDAC Rx Instructions: Breakfast and Dinner Referrals / Follow Up: Peter Ellis MD [Primary Care Provider] - Within 2 Weeks Disposition Disposition (needs filled in before D/C Order can be placed): Half-Way Facility Charges/Coding Visit Charges Inpatient E&M: 48244 Disch Hosp >30min 03/08/25 1239 <Electronically signed by Carl Couch DO> Cosigner Signature (if applicable): CC: Dr. Carl Couch DO; Dr. Peter Ellis MD~ Signed [facility] Work Phone: [phone]) 773-708909-09-2025 Discharge summary Author Carl Couch [facility] Note Date/Time March 08, 2025 12:38pm [facility] Medical Records Department [address] [place] [place] [address] Transfer to [facility] MR#: [id number] Acct: [id number] Name: STEVE VIEIRA Rep #:[id number] : 1945 79 From: Carl Couch DO PCP: Dr. Peter Ellis MD Status:AD M IN Certification of patient admission REQUIRED AT TIME OF ADMISSION. I CERTIFY THAT POST-HOSPITAL ECF SERVICES ARE REQUIRED TO BE GIVEN ON AN IN-PATIENT BASIS BECAUSE OF THE ABOVE NAMED PATIENT'S NEED FOR GROUP HOME CARE ON A CONTINUING BASIS FOR THE CONDITION(S) FOR WHICH HE/SHE WAS RECEIVING IN-PATIENT HOSPITAL SERVICES PRIOR TO HIS/HER TRANSFER TO THE ECF. 03/08/25 1238<Electronically signed by Carl Couch DO> Diet Diet Order/Speech Therapy: INPATIENT Hospital Diet / Speech Therapy Order(s) 03/04/25 12:57 Diet: Regular - General Food consistency:: Mechanical (Minced/Moist) Liquid Consistency:: Regular/Thin Type of Dietary Supplement:: Glucerna Shake Speech Therapy Comments: 1:1 supervision / total feed ; 4 oz glucerna shake tid w/ meals DC O2, CPAP, BIPAP needs Home O2 Discharge instructions: No Therapies Physical Therapy: Eval and Treat Occupational Therapy: Eval and Treat Problem/Diagnosis (1) Acute hypoxic respiratory failure: Status: Acute Code(s): J96.01 - Acute respiratory failure with hypoxia (2) Sepsis: Status: Acute Code(s): A41.9 - Sepsis, unspecified organism (3) Hyperlipidemia: Status: Acute Code(s): E78.5 - Hyperlipidemia, unspecified Plan Acute hypoxic respiratory failure due to probable aspiration pneumonia * Was intubated on admission due to hypoxia. Now extubated and down to room air today. * Respiratory panel negative. COVID, flu and RSV also negative. * Blood, sputum and urinary cultures all growing ESBL E. coli. Sputum cultures also growing MRSA. On IV vancomycin and Zosyn. * ID following and ordered PO linezolid and IM ertapenem. Pneumonia * E. coli and MRSA. * iglesia and vancomycin. Outpt PO linezolid and IM ertapenem. * ID following Sepsis due to UTI and pneumonia * Was tachycardic and tachypneic on admission was also febrile with temperature up to 102.6. Lactic acid was elevated at 3.4 and WBC was 13.5. Bilirubin was elevated and she was also tachypneic * Urinalysis did show evidence of elevated nitrites and leukocyte esterase as well as elevated WBC but no bacteria. * Currently on broad-spectrum IV antibiotics. Blood and urine cultures as well as sputum cultures growing E. coli * ID consulted. E. coli bacteremia: As above Elevated troponins: * Likely due to demand ischemia. No chest pain. Stable. * Initial troponin was 54 but subsequently trended down to 25. This was likely due to her hypoxia. Elevated liver enzymes, * total bilirubin today is down to 0.94. However AST and ALT have trended up slightly though ALP has trended down. Direct bilirubin is 0.7 which is slightly elevated. * CT abdomen and pelvis did not show any visualization of the gallbladder and showed no significant biliary dilatation. * Will check hepatitis panel Pancytopenia: * Hemoglobin is 7.7 with WBC of 4.3 and platelets of 145. Platelets up from yesterday. * Hemoglobin has of dropped from 10.4 when she was admitted. * Will check stool for occult blood and check iron panel and ferritin. * Hold all blood thinners Chronic medical conditions: * GERD: On PPI * type 2 diabetes mellitus: On insulin sliding scale. Accu-Cheks ACHS. * Depression and anxiety: On Lexapro * Hypothyroidism: On Synthroid DVT prophylaxis: SCDs Allergies/Procedures Done in Hospital Allergies venlafaxine HCl (From Effexor) Allergy (Verified 03/03/25 14:19) Rash CHEST BROKE OUT, GOT REAL DIZZY. meclizine Adverse Reaction (Verified 03/03/25 14:19) Other PT BECAME EXTREMELY FATIGUED & WAS UNABLE TO WALK AFTER TAKING 12.5MG OF MECLIZINE. Type of Care/Length of Stay Estimated LOS: Convalescent Care Less Than 30 days Type of Care Needed: Skilled Rehab Potential: Fair Prognosis: Fair Additional Orders/Day of Discharge Day of Discharge: 03/08/25 Dietary and Speech Recommendations Dietitian Recommendations/Changes: Continue liberal regular diet - consistency per EXPELLER WORKER - once po intake established rec ARIADNA to CHO Control if indicated Will order 4 oz glucerna shake tid w/ meals for increased nutrition if consumed. Will interview pt re: diet/WT Hx, SMBG, etc and make additional rec as indicated. Discharge Plan Admission Admit Date/Time: 03/03/25 16:08 Primary Reason for Your Visit: pneumonia Attending Provider: Carl Couch Primary Care Provider: Peter Ellis Consulting Providers: Desiree Trent; Esa Ponce; Giovanni Batista; Geovany Garcia; Mario Dunaway; Mitzy Mohamud; Deng Burnette; Caden Kurtz; Frances Natarajan; Mason Mina; Chalino Harp; Matthew Calixto; Juana Mendez; Oni Perkins; Germania Lance; Donna,Antione; Kev Albert; Gibson Dwyer; Omar Castillo; Anabel Cummins; Ingrid Fonseca; Warren Stockton; Moses Damon; Gabino Malik; Donell Rendon; Terry Flores; Amira Mai NP; Debra Bunn; Linda Marte; Ab Nur Discharge Orders/Prescriptions Prescriptions: New linezolid 600 mg tablet 600 mg PO BID 3 Days Qty: 6 0RF ertapenem 1 gram recon soln 1 g IM DAILY 3 Days Qty: 5 0RF Rx Instructions: Reconstitute with lidocaine. 1gm IM daily for 5 days. Dx: ESBL ecoli bacteremia. insulin lispro [Humalog KwikPen Insulin] 100 unit/mL [...] Greater than 449 call physician Protocol Text: Suggested for: - Patients on Total Daily Insulin Dose of 37-55 units - Obese, infected, or steroid patients MEDIUM DOSING ALGORITHIM Continued levothyroxine 50 MCG tablet 50 mcg PO .LEOPOLDO Patient Comments: THYROID MEDICATION atorvastatin 40 MG tablet 40 mg PO QHS escitalopram oxalate 10 MG tablet 10 mg PO DAILY levothyroxine 25 mcg tablet 75 mcg PO .MWF acetaminophen 325 mg Tablet 650 mg PO Q6H PRN PRN (Reason: Pain 1-10 Or Fever>100.7) Qty: 0 0RF melatonin 3 mg Tablet 3 mg PO QHS PRN PRN (Reason: Insomnia) Qty: 0 0RF menthol-zinc oxide [Calmoseptine] 0.44-20.6 % Ointment 1 applic topical BID Protocol: *Topical Application Instructions APPLICATION INSTRUCTIONS: apply to buttock Rx Instructions: Apply to bilat buttocks ferrous sulfate [FeroSul] 325 mg (65 mg iron) tablet 325 mg PO BID oxybutynin chloride 10 mg tablet extended release 24hr 10 mg PO .HS sennosides-docusate sodium [Stool Softener-Stimulant Laxat] 8.6-50 mg Tablet 1 tab PO DAILY pantoprazole 20 mg Tablet,Delayed Release (Dr/Ec) 20 mg PO DAILY cholecalciferol (vitamin D3) 1,250 mcg (50,000 unit) capsule 1,250 mcg PO .Qmonday Rx Instructions: Give one capsule in the morning every Friday for low vitamin D3 level for 168days acetaminophen 650 mg suppository 650 mg KS Q4H PRN (Reason: fever or pain) bisacodyl 10 mg suppository 10 mg KS DAILY PRN (Reason: constipation) magnesium hydroxide [Milk of Magnesia] 400 mg/5 mL suspension 30 ml PO DAILY PRN (Reason: constipation) guaifenesin [Adult Tussin Chest Congestion] 100 mg/5 mL liquid 200 mg PO Q4H PRN (Reason: congestion, cough) Changed insulin glargine [Lantus Solostar U-100 Insulin] 100 unit/mL (3 mL) insulin pen 20 unit subcut .am Qty: 1 0RF Discontinued insulin lispro [Humalog U-100 Insulin] 100 unit/mL solution 1 sliding scale dose subcut .AC Rx Instructions: BS 151-200=2 units 201-250= 4 units 251-300= 6 units 301-350= 8 units 351-400= 10 units 401-450=12 units >450 call insulin glargine [Lantus Solostar U-100 Insulin] 100 unit/mL (3 mL) insulin pen 26 unit subcut QPM insulin lispro [Humalog KwikPen Insulin] 100 unit/mL Insulin Pen 5 unit subcut BIDAC Rx Instructions: Breakfast and Dinner Referrals / Follow Up: Peter Ellis MD [Primary Care Provider] - Within 2 Weeks Disposition Disposition (needs filled in before D/C Order can be placed): [facility] 03/08/25 1238 <Electronically signed by Carl Couch DO> Cosigner Signature (if applicable): CC: SAUSAGE STUFFEREltonC Amira Mai; Dr. Giovanni Batista MD; Dr. Esa Ponce MD; Dr. Geovany Garcia MD; Dr. Mitzy Mohamud MD; Dr. Mario Dunaway DO; Dr. Deng Burnette MD; Dr. Caden Kurtz MD; Dr. Mason Mina MD; Dr. Chalino Harp MD; Dr. Matthew Calixto MD; Dr. Juana Mendez MD; Dr. Oni Perkins MD; Dr. Peter Ellis MD; Dr. Germania Lance MD; Dr. Linda Marte MD; Dr. Desiree Trent MD; Dr. Kev Albert MD; Dr. Antione Thompson MD; Dr. Ab Nur MD; Dr. Gibson Dwyer MD; Dr. Ingrid Fonseca MD; Dr. Anabel Cummins MD; Dr. Omar Castillo DO; Dr. Moses Damon MD; Dr. Warren Stockton DO; Dr. Donell Rendon MD; Dr. Gabino Malik MD; Dr. Terry Flores MD; Dr. Frances Natarajan MD; Debra Bunn NP ~ [facility] Work Phone: [phone]) 652-979409-09-2025 Progress note Author Carl Couch [facility] Note Date/Time March 08, 2025 12:25pm [facility] Medical Records Department [address] [place] [address] Progress Note - Hospitalist 03/08/25 0853 MR#: [id number] Acct: [id number] Name: STEVE VIEIRA Rep #:[id number] : 1945 79 From: Carl Couch DO PCP: Dr. Peter Ellis MD Status:AD M IN [facility] Reason for Visit Chief Complaint: Patient came in hypoxic Subjective Subjective Does not feels well, but cannot specify symptoms. Objective Data Objective Data Vital Signs: Vital Signs Temp Pulse Resp BP Pulse Ox O2 Del Method O2 Flow Rate 36.3 C L 82 18 130/63 H 95 Room Air 1 03/08/25 03:40 03/08/25 03:40 03/08/25 03:40 03/08/25 03:40 03/08/25 08:17 03/08/25 08:17 03/05/25 14:55 FiO2 30 03/04/25 09:00 Oxygen Flow Rate (L/min) 1 Oxygen Delivery Method Room Air Weight: 84.9 kg Body Mass Index (BMI) 37.7 Intake & Output: Intake and Output for Last 24 Hours 03/06/25 03/07/25 03/08/25 23:59 23:59 23:59 Intake Total 805 / 925 1025 / 1025 100 / 100 Output Total 600 / 1050 1300 / 1300 Balance 205 / -125 -275 / -275 100 / 100 Lab / Micro Data 03/08/25 06:52 03/08/25 06:52 Labs: Laboratory Results - last 24 hr 03/07/25 12:00: POC Glucose 167 H 03/07/25 16:08: POC Glucose 204 H 03/07/25 21:11: POC Glucose 166 H 03/08/25 06:52: WBC 4.7, RBC 2.80 L, Hgb 8.6 L, Hct 26.8 L, MCV 95.7, MCH 30.7, MCHC 32.1, RDW Std Deviation 48.3 H, RDW Coeff of Nicholas 13.7, Plt Count 149 L, MPV10.4, Immature Gran % (Auto) 1.900 H, Neut % (Auto) 71.0 H, Lymph % (Auto) 19.7,Langlade % (Auto) 5.7, Eos % (Auto) 1.3, Baso % (Auto) 0.4, Absolute Neuts (auto) 3.4, Absolute Lymphs (auto) 0.93, Nucleated RBC % 0, Sodium 140, Potassium 3.2 L, Chloride 106, Carbon Dioxide 24.0, Anion Gap 10, BUN 6, Creatinine 0.60 L, Estim Creat Clear Calc 53.34, Est GFR (MDRD) Non-Af 90, BUN/Creatinine Ratio 10.3, Glucose 172 H, Calcium 8.4, Vancomycin Trough 13.0 Micro: Microbiology 03/03/25 14:54 Sputum, Induced/Lukens Gram Stain - Final 03/03/25 14:54 Sputum, Induced/Lukens Respiratory Culture - Final ESBL Escherichia coli Meth. resistant Staph. aureus 03/03/25 14:48 Urine Catheter - Catheter Urine Culture - Final ESBL Escherichia coli 03/03/25 14:10 Blood Culture (Wb) - Venous Blood Culture - Final GNR lactose casing in line feeder 03/03/25 14:20 Blood Culture (Wb) - Venous Blood Culture - Final ESBL Escherichia coli 03/03/25 17:25 Mucosa - Nasopharyngeal Respiratory Panel (PCR) - Final 03/03/25 14:48 Mucosa - Nose SARS-CoV-2, Influenza & RSV [...] Extremity normal to inspection and full ROM Neuro Sensorium / Orientation: awake Assessment & Plan Assessment/Plan (1) Acute hypoxic respiratory failure: (2) Sepsis: (3) Hyperlipidemia: PLAN: Plan Acute hypoxic respiratory failure due to probable aspiration pneumonia * Was intubated on admission due to hypoxia. Now extubated and down to room air today. * Respiratory panel negative. COVID, flu and RSV also negative. * Blood, sputum and urinary cultures all growing ESBL E. coli. Sputum cultures also growing MRSA. On IV vancomycin and Zosyn. * ID following and ordered PO linezolid and IM ertapenem. Pneumonia * E. coli and MRSA. * iglesia and vancomycin. Outpt PO linezolid and IM ertapenem. * ID following Sepsis due to UTI and pneumonia * Was tachycardic and tachypneic on admission was also febrile with temperature up to 102.6. Lactic acid was elevated at 3.4 and WBC was 13.5. Bilirubin was elevated and she was also tachypneic * Urinalysis did show evidence of elevated nitrites and leukocyte esterase as well as elevated WBC but no bacteria. * Currently on broad-spectrum IV antibiotics. Blood and urine cultures as well as sputum cultures growing E. coli * ID consulted. E. coli bacteremia: As above Elevated troponins: * Likely due to demand ischemia. No chest pain. Stable. * Initial troponin was 54 but subsequently trended down to 25. This was likely due to her hypoxia. Elevated liver enzymes, * total bilirubin today is down to 0.94. However AST and ALT have trended up slightly though ALP has trended down. Direct bilirubin is 0.7 which is slightly elevated. * CT abdomen and pelvis did not show any visualization of the gallbladder and showed no significant biliary dilatation. * Will check hepatitis panel Pancytopenia: * Hemoglobin is 7.7 with WBC of 4.3 and platelets of 145. Platelets up from yesterday. * Hemoglobin has of dropped from 10.4 when she was admitted. * Will check stool for occult blood and check iron panel and ferritin. * Hold all blood thinners Chronic medical conditions: * GERD: On PPI * type 2 diabetes mellitus: On insulin sliding scale. Accu-Cheks ACHS. * Depression and anxiety: On Lexapro * Hypothyroidism: On Synthroid DVT prophylaxis: SCDs 03/08/25 1225 <Electronically signed by Carl Couch DO> Cosigner Signature (if applicable): CC: ~ Signed [facility] Work Phone: 1(401) 542-754009-09-2025 Discharge summary [facility] Medical Records Department [address] [place] [id number] Discharge Summary 03/08/25 1238 MR#: [id number] Acct: [id number] Name: STEVE VIEIRA Rep #:[id number] : 1945 79 From: Carl Couch DO PCP: Dr. Peter Ellis MD Status:AD M IN Location: [facility] [id number] Providers Date of Admission: 03/03/25 Primary Care Physician: Dr. Peter Ellis MD Consultations 03/03/25 16:59 Consult: Support Services Coordinator / Pulmonary Medicine Routine Consulting Provider: [facility] [place] [facility] Reason for Consult: Vent management, sepsis EMERGENT Consult: No MD Notified: Yes Date Notified: 03/03/25 Time Notified: 17:20 Method of Notification: Verbal 03/06/25 08:18 Consult: Infectious Disease Routine Consulting Provider: Ab Nur Reason for Consult: E coli bacteremia EMERGENT Consult: No MD Notified: Yes Date Notified: 03/07/25 Time Notified: 06:54 Method of Notification: Text Reason For Visit: SEPSIS Diagnosis Discharge Diagnosis (1) Acute hypoxic respiratory failure: Status: Acute Code(s): J96.01 - Acute respiratory failure with hypoxia (2) Sepsis: Status: Acute Code(s): A41.9 - Sepsis, unspecified organism (3) Hyperlipidemia: Status: Acute Code(s): E78.5 - Hyperlipidemia, unspecified Plan Acute hypoxic respiratory failure due to probable aspiration pneumonia * Was intubated on admission due to hypoxia. Now extubated and down to room air today. * Respiratory panel negative. COVID, flu and RSV also negative. * Blood, sputum and urinary cultures all growing ESBL E. coli. Sputum cultures also growing MRSA. On IV vancomycin and Zosyn. * ID following and ordered PO linezolid and IM ertapenem. Pneumonia * E. coli and MRSA. * iglesia and vancomycin. Outpt PO linezolid and IM ertapenem. * ID following Sepsis due to UTI and pneumonia * Was tachycardic and tachypneic on admission was also febrile with temperature up to 102.6. Lacticacid was elevated at 3.4 and WBC was 13.5. Bilirubin was elevated and she was also tachypneic * Urinalysis did show evidence of elevated nitrites and leukocyte esterase as well as elevated WBC but no bacteria. * Currently on broad-spectrum IV antibiotics. Blood and urine cultures as well as sputum cultures growing E. coli * ID consulted. E. coli bacteremia: As above Elevated troponins: * Likely due to demand ischemia. No chest pain. Stable. * Initial troponin was 54 but subsequently trended down to 25. This was likely due to her hypoxia. Elevated liver enzymes, * total bilirubin today is down to 0.94. However AST and ALT have trended up slightly though ALP has trended down. Direct bilirubin is 0.7 which is slightly elevated. * CT abdomen and pelvis did not show any visualization of the gallbladder and showed no significantbiliary dilatation. * Will check hepatitis panel Pancytopenia: * Hemoglobin is 7.7 with WBC of 4.3 and platelets of 145. Platelets up from yesterday. * Hemoglobin has of dropped from 10.4 when she was admitted. * Will check stool for occult blood and check iron panel and ferritin. * Hold all blood thinners Chronic medical conditions: * GERD: On PPI * type 2 diabetes mellitus: On insulin sliding scale. Accu-Cheks ACHS. * Depression and anxiety: On Lexapro * Hypothyroidism: On Synthroid Medications at Discharge Home Medications levothyroxine 50 mcg tablet 50 mcg PO .TUTSASU thyroid 06/07/14 atorvastatin 40 mg tablet 40 mg PO QHS CHOLESTEROL 05/28/19 escitalopram oxalate 10 mg tablet 10 mg PO DAILY DEPRESS 05/28/19 levothyroxine 25 mcg tablet 75 mcg PO .F thyroid 08/09/23 acetaminophen 325 mg tablet 650 mg (2 x 325 mg) PO Q6H PRN PRN Pain 1-10 Or Fever>100.7 #0 tabs 12/06/23 melatonin 3 mg tablet 3 mg PO QHS PRN PRN Insomnia #0 tabs 12/06/23 menthol 0.44 %-zinc oxide 20.6 % topical ointment (Calmoseptine) 1 applic topical BID redness 12/06/23 acetaminophen 650 mg rectal suppository 650 mg KS Q4H PRN fever or pain 03/03/25 bisacodyl 10 mg rectal suppository 10 mg KS DAILY PRN constipation 03/03/25 cholecalciferol (vitamin D3) 1,250 mcg (50,000 unit) capsule 1,250 mcg PO .Qmonday supplement 03/03/25 ferrous sulfate 325 mg (65 mg iron) tablet (FeroSul) 325 mg PO BID iron supplement 03/03/25 guaifenesin 100 mg/5 mL oral liquid (Adult Tussin Chest Congestion) 200 mg PO Q4H PRN congestion, cough 03/03/25 magnesium hydroxide 400 mg/5 mL oral suspension (Milk of Magnesia) 30 ml PO DAILY PRN constipation 03/03/25 oxybutynin chloride 10 mg tablet,extended release 24 hr 10 mg PO .HS bladder spasms 03/03/25 pantoprazole 20 mg tablet,delayed release 20 mg PO DAILY GERD 03/03/25 sennosides 8.6 mg-docusate sodium 50 mg tablet (Stool Softener-Stimulant Laxative) 1 tab PO DAILY constipation 03/03/25 ertapenem 1 gram solution for injection 1 g IM DAILY 3 days #5 ea 03/08/25 insulin glargine 100 unit/mL (3 mL) subcutaneous pen (Lantus Solostar U-100 Insulin) 20 unit (0.2 mL) subcut .am diabetes #1 mL 03/08/25 insulin lispro 100 unit/mL subcutaneous pen (Humalog KwikPen (U-100) Insulin) See Protocol subcut ACHS #0 mL 03/08/25 linezolid 600 mg tablet 600 mg PO BID 3 days #6 tabs 03/08/25 Hospital Course Operations None Procedures None Summary of Care Provided Minutes Spent on Discharge: 32 Weight / BMI Weight Weight: 84.9 kg Body Mass Index (BMI) 37.7 ABG / Lab / Microbiology Data 03/08/25 06:52 03/08/25 06:52 Laboratory: Laboratory Results - last 24 hr 03/07/25 16:08: POC Glucose 204 H 03/07/25 21:11: POC Glucose 166 H 03/08/25 06:52: WBC 4.7, RBC 2.80 L, Hgb 8.6 L, Hct 26.8 L, MCV 95.7, MCH 30.7, MCHC 32.1, RDW Std Deviation 48.3 H, RDW Coeff of Nicholas 13.7, Plt Count 149 L, MPV10.4, Immature Gran % (Auto) 1.900 H, Neut % (Auto) 71.0 H, Lymph % (Auto) 19.7,Langlade % (Auto) 5.7, Eos % (Auto) 1.3, Baso % (Auto) 0.4, Absolute Neuts (auto) 3.4, Absolute Lymphs (auto) 0.93, Nucleated RBC % 0, Sodium 140, Potassium 3.2 L,Chloride 106, Carbon Dioxide 24.0, Anion Gap 10, BUN 6, Creatinine 0.60 L, Estim Creat Clear Calc 53.34, Est GFR (MDRD) Non-Af 90, BUN/Creatinine Ratio 10.3, Glucose 172 H, Calcium 8.4, Vancomycin Trough 13.0 03/08/25 11:12: POC Glucose 170 H Microbiology: Microbiology 03/03/25 14:54 Sputum, Induced/Lukens Gram Stain - Final 03/03/25 14:54 Sputum, Induced/Lukens Respiratory Culture - Final ESBL Escherichia coli Meth. resistant Staph. aureus 03/03/25 14:48 Urine Catheter - Catheter Urine Culture - Final ESBL Escherichia coli 03/03/25 14:10 Blood Culture (Wb) - Venous Blood Culture - Final GNR lactose casing in line feeder 03/03/25 14:20 Blood Culture (Wb) - Venous Blood Culture - Final ESBL Escherichia coli 03/03/25 17:25 Mucosa - Nasopharyngeal Respiratory Panel (PCR) - Final 03/03/25 14:48 Mucosa - Nose SARS-CoV-2, Influenza & RSV (PCR) - Final D/C Instructions DC O2, CPAP, BIPAP Needs Home O2 Discharge instructions: No Meaningful Use Info Meaningful Use Meaningful Use Diagnoses (Choose all that apply): None applicable Discharge Plan Admission Admit Date/Time: 03/03/25 16:08 Primary Reason for Your Visit: pneumonia Attending Provider: Carl Couch Primary Care Provider: Peter Ellis Consulting Providers: Desiree Trent; Esa Ponce; Giovanni Batista; Geovany Garcia; Mario Dunaway; Mitzy Mohamud; Deng Burnette; Caden Kurtz; Frances Natarajan; Mason Mina; Chalino Harp; Matthew Calixto; Juana Mendez; Oni Perkins; Germania Lance; oDnna,Antione; Roosevelt,Kev; Gibson Dwyer; Omar Castillo; Anabel Cummins; Ingrid Fonseca; Warren Stockton; Moses Damon; Gabino Malik; Donell Rendon; Terry Flores; Amira Mai NP; Debra Bunn; Linda Marte; Ab Nur Discharge Orders/Prescriptions Prescriptions: New linezolid 600 mg tablet 600 mg PO BID 3 Days Qty: 6 0RF ertapenem 1 gram recon soln 1 g IM DAILY 3 Days Qty: 5 0RF Rx Instructions: Reconstitute with lidocaine. 1gm IM daily for 5 days. Dx: ESBL ecoli bacteremia. insulin lispro [Humalog KwikPen Insulin] 100 unit/mL [...] Greater than 449 call physician Protocol Text: Suggested for: - Patients on Total Daily Insulin Dose of 37-55 units - Obese, infected, or steroid patients MEDIUM DOSING ALGORITHIM Continued levothyroxine 50 MCG tablet 50 mcg PO .LEOPOLDO Patient Comments: THYROID MEDICATION atorvastatin 40 MG tablet 40 mg PO QHS escitalopram oxalate 10 MG tablet 10 mg PO DAILY levothyroxine 25 mcg tablet 75 mcg PO .MWF acetaminophen 325 mg Tablet 650 mg PO Q6H PRN PRN (Reason: Pain 1-10 Or Fever>100.7) Qty: 0 0RF melatonin 3 mg Tablet 3 mg PO QHS PRN PRN (Reason: Insomnia) Qty: 0 0RF menthol-zinc oxide [Calmoseptine] 0.44-20.6 % Ointment 1 applic topical BID Protocol: *Topical Application Instructions APPLICATION INSTRUCTIONS: apply to buttock Rx Instructions: Apply to bilat buttocks ferrous sulfate [FeroSul] 325 mg (65 mg iron) tablet 325 mg PO BID oxybutynin chloride 10 mg tablet extended release 24hr 10 mg PO .HS sennosides-docusate sodium [Stool Softener-Stimulant Laxat] 8.6-50 mg Tablet 1 tab PO DAILY pantoprazole 20 mg Tablet,Delayed Release (Dr/Ec) 20 mg PO DAILY cholecalciferol (vitamin D3) 1,250 mcg (50,000 unit) capsule 1,250 mcg PO .Qmonday Rx Instructions: Give one capsule in the morning every Friday for low vitamin D3 level for 168days acetaminophen 650 mg suppository 650 mg KS Q4H PRN (Reason: fever or pain) bisacodyl 10 mg suppository 10 mg KS DAILY PRN (Reason: constipation) magnesium hydroxide [Milk of Magnesia] 400 mg/5 mL suspension 30 ml PO DAILY PRN (Reason: constipation) guaifenesin [Adult Tussin Chest Congestion] 100 mg/5 mL liquid 200 mg PO Q4H PRN (Reason: congestion, cough) Changed insulin glargine [Lantus Solostar U-100 Insulin] 100 unit/mL (3 mL) insulin pen 20 unit subcut .am Qty: 1 0RF Discontinued insulin lispro [Humalog U-100 Insulin] 100 unit/mL solution 1 sliding scale dose subcut .AC Rx Instructions: BS 151-200=2 units 201-250= 4 units 251-300= 6 units 301-350= 8 units 351-400= 10 units 401-450=12 units >450 call MD insulin glargine [Lantus Solostar U-100 Insulin] 100 unit/mL (3 mL) insulin pen 26 unit subcut QPM insulin lispro [Humalog KwikPen Insulin] 100 unit/mL Insulin Pen 5 unit subcut BIDAC Rx Instructions: Breakfast and Dinner Referrals / Follow Up: Peter Ellis MD [Primary Care Provider] - Within 2 Weeks Disposition Disposition (needs filled in before D/C Order can be placed): [facility] Charges/Coding Visit Charges Inpatient E&M: 11043 Disch Hosp >30min 03/08/25 1239 Cosigner Signature (if applicable): CC: Dr. Carl Couch DO; Dr. Peter Ellis MD~ Signed [facility]09-09-2025 Discharge summary [facility] Medical Records Department [address] [place] [address] Transfer to [facility] MR#: [id number] Acct: [id number] Name: STEVE VIEIRA Rep #:[id number] : 1945 79 From: Carl Couch DO PCP: Dr. Peter Ellis MD Status:AD M IN Certification of patient admission REQUIRED AT TIME OF ADMISSION. I CERTIFY THAT POST-HOSPITAL F SERVICES ARE REQUIRED TO BE GIVEN ON AN IN-PATIENT BASIS BECAUSE OF THE ABOVE NAMED PATIENT'S NEED FOR GROUP HOME CARE ON A CONTINUING BASIS FOR THE CONDITION(S) FOR WHICH HE/SHE WAS RECEIVING IN-PATIENT HOSPITAL SERVICES PRIOR TO HIS/HER TRANSFER TO THE [facility]. 03/08/25 1238 Diet Diet Order/Speech Therapy: INPATIENT Hospital Diet / Speech Therapy Order(s) 03/04/25 12:57 Diet: Regular - General Food consistency:: Mechanical (Minced/Moist) Liquid Consistency:: Regular/Thin Type of Dietary Supplement:: Glucerna Shake Speech Therapy Comments: 1:1 supervision / total feed ; 4 oz glucerna shake tid w/ meals DC O2, CPAP, BIPAP needs Home O2 Discharge instructions: No Therapies Physical Therapy: Eval and Treat Occupational Therapy: Eval and Treat Problem/Diagnosis (1) Acute hypoxic respiratory failure: Status: Acute Code(s): J96.01 - Acute respiratory failure with hypoxia (2) Sepsis: Status: Acute Code(s): A41.9 - Sepsis, unspecified organism (3) Hyperlipidemia: Status: Acute Code(s): E78.5 - Hyperlipidemia, unspecified Plan Acute hypoxic respiratory failure due to probable aspiration pneumonia * Was intubated on admission due to hypoxia. Now extubated and down to room air today. * Respiratory panel negative. COVID, flu and RSV also negative. * Blood, sputum and urinary cultures all growing ESBL E. coli. Sputum cultures also growing MRSA. On IV vancomycin and Zosyn. * ID following and ordered PO linezolid and IM ertapenem. Pneumonia * E. coli and MRSA. * iglesia and vancomycin. Outpt PO linezolid and IM ertapenem. * ID following Sepsis due to UTI and pneumonia * Was tachycardic and tachypneic on admission was also febrile with temperature up to 102.6. Lacticacid was elevated at 3.4 and WBC was 13.5. Bilirubin was elevated and she was also tachypneic * Urinalysis did show evidence of elevated nitrites and leukocyte esterase as well as elevated WBC but no bacteria. * Currently on broad-spectrum IV antibiotics. Blood and urine cultures as well as sputum cultures growing E. coli * ID consulted. E. coli bacteremia: As above Elevated troponins: * Likely due to demand ischemia. No chest pain. Stable. * Initial troponin was 54 but subsequently trended down to 25. This was likely due to her hypoxia. Elevated liver enzymes, * total bilirubin today is down to 0.94. However AST and ALT have trended up slightly though ALP has trended down. Direct bilirubin is 0.7 which is slightly elevated. * CT abdomen and pelvis did not show any visualization of the gallbladder and showed no significantbiliary dilatation. * Will check hepatitis panel Pancytopenia: * Hemoglobin is 7.7 with WBC of 4.3 and platelets of 145. Platelets up from yesterday. * Hemoglobin has of dropped from 10.4 when she was admitted. * Will check stool for occult blood and check iron panel and ferritin. * Hold all blood thinners Chronic medical conditions: * GERD: On PPI * type 2 diabetes mellitus: On insulin sliding scale. Accu-Cheks ACHS. * Depression and anxiety: On Lexapro * Hypothyroidism: On Synthroid DVT prophylaxis: SCDs Allergies/Procedures Done in Hospital Allergies venlafaxine HCl (From Effexor) Allergy (Verified 03/03/25 14:19) Rash CHEST BROKE OUT, GOT REAL DIZZY. meclizine Adverse Reaction (Verified 03/03/25 14:19) Other PT BECAME EXTREMELY FATIGUED & WAS UNABLE TO WALK AFTER TAKING 12.5MG OF MECLIZINE. Type of Care/Length of Stay Estimated LOS: Convalescent Care Less Than 30 days Type of Care Needed: Skilled Rehab Potential: Fair Prognosis: Fair Additional Orders/Day of Discharge Day of Discharge: 03/08/25 Dietary and Speech Recommendations Dietitian Recommendations/Changes: Continue liberal regular diet - consistency per EXPELLER WORKER - once po intake established rec ARIADNA to CHO Control if indicated Will order 4 oz glucerna shake tid w/ meals for increased nutrition if consumed. Will interview pt re: diet/WT Hx, SMBG, etc and make additional rec as indicated. Discharge Plan Admission Admit Date/Time: 03/03/25 16:08 Primary Reason for Your Visit: pneumonia Attending Provider: Carl Couch Primary Care Provider: Peter Ellis Consulting Providers: Desiree Trent; Esa Ponce; Giovanni Batista; Geovany Garcia; Mario Dunaway; Mitzy Mohamud; Deng Burnette; Caden Kurtz; Frances Natarajan; Mason Mina; Chalino Harp; Matthew Calixto; Juana Mendez; Oni Perkins; Casi,Germania; Donna,Antione; Kev Albert; Gibson Dwyer; Omar Castillo; nAabel Cummins; Ingrid Fonseca; Warren Stockton; Moses Damon; Gabino Malik; Donell Rendon; Terry Flores; Amira Mai NP; Debra Bunn; Linda Marte; Ab Nur Discharge Orders/Prescriptions Prescriptions: New linezolid 600 mg tablet 600 mg PO BID 3 Days Qty: 6 0RF ertapenem 1 gram recon soln 1 g IM DAILY 3 Days Qty: 5 0RF Rx Instructions: Reconstitute with lidocaine. 1gm IM daily for 5 days. Dx: ESBL ecoli bacteremia. insulin lispro [Humalog KwikPen Insulin] 100 unit/mL [...] Greater than 449 call physician Protocol Text: Suggested for: - Patients on Total Daily Insulin Dose of 37-55 units - Obese, infected, or steroid patients MEDIUM DOSING ALGORITHIM Continued levothyroxine 50 MCG tablet 50 mcg PO .ISABELMAXIME Patient Comments: THYROID MEDICATION atorvastatin 40 MG tablet 40 mg PO QHS escitalopram oxalate 10 MG tablet 10 mg PO DAILY levothyroxine 25 mcg tablet 75 mcg PO .MWF acetaminophen 325 mg Tablet 650 mg PO Q6H PRN PRN (Reason: Pain 1-10 Or Fever>100.7) Qty: 0 0RF melatonin 3 mg Tablet 3 mg PO QHS PRN PRN (Reason: Insomnia) Qty: 0 0RF menthol-zinc oxide [Calmoseptine] 0.44-20.6 % Ointment 1 applic topical BID Protocol: *Topical Application Instructions APPLICATION INSTRUCTIONS: apply to buttock Rx Instructions: Apply to bilat buttocks ferrous sulfate [FeroSul] 325 mg (65 mg iron) tablet 325 mg PO BID oxybutynin chloride 10 mg tablet extended release 24hr 10 mg PO .HS sennosides-docusate sodium [Stool Softener-Stimulant Laxat] 8.6-50 mg Tablet 1 tab PO DAILY pantoprazole 20 mg Tablet,Delayed Release (Dr/Ec) 20 mg PO DAILY cholecalciferol (vitamin D3) 1,250 mcg (50,000 unit) capsule 1,250 mcg PO .Qmonday Rx Instructions: Give one capsule in the morning every Friday for low vitamin D3 level for 168days acetaminophen 650 mg suppository 650 mg KS Q4H PRN (Reason: fever or pain) bisacodyl 10 mg suppository 10 mg KS DAILY PRN (Reason: constipation) magnesium hydroxide [Milk of Magnesia] 400 mg/5 mL suspension 30 ml PO DAILY PRN (Reason: constipation) guaifenesin [Adult Tussin Chest Congestion] 100 mg/5 mL liquid 200 mg PO Q4H PRN (Reason: congestion, cough) Changed insulin glargine [Lantus Solostar U-100 Insulin] 100 unit/mL (3 mL) insulin pen 20 unit subcut .am Qty: 1 0RF Discontinued insulin lispro [Humalog U-100 Insulin] 100 unit/mL solution 1 sliding scale dose subcut .AC Rx Instructions: BS 151-200=2 units 201-250= 4 units 251-300= 6 units 301-350= 8 units 351-400= 10 units 401-450=12 units >450 call MD insulin glargine [Lantus Solostar U-100 Insulin] 100 unit/mL (3 mL) insulin pen 26 unit subcut QPM insulin lispro [Humalog KwikPen Insulin] 100 unit/mL Insulin Pen 5 unit subcut BIDAC Rx Instructions: Breakfast and Dinner Referrals / Follow Up: Peter Ellis MD [Primary Care Provider] - Within 2 Weeks Disposition Disposition (needs filled in before D/C Order can be placed): [facility] 03/08/25 1238 Cosigner Signature (if applicable): CC: PANKAJ Mai; Dr. Giovanni Batista MD; Dr. Esa Ponce MD; Dr. Geovany Garcia MD; Dr. Mitzy Mohamud MD; Dr. Mario Dunaway DO; Dr. Deng Burnette MD; Dr. Caden Kurtz MD; Dr. Mason Mina MD; Dr. Chalino Harp MD; Dr. Matthew Calixto MD; Dr. Juana Mendez MD; Dr. Oni Perkins MD; Dr. Peter Ellis MD; Dr. Germania Lance MD; Dr. Linda Marte MD; Dr. Desiree Trent MD; Dr. Kev Albert MD; Dr. Antione Thompson MD; Dr. Ab Nur MD; Dr. Gibson Dwyer MD; Dr. Ingrid Fonseca MD; Dr. Anabel Cummins MD; Dr. Omar Castillo DO; Dr. Moses Damon MD; Dr. Warren Stockton DO; Dr. Donell Rendon MD; Dr. Gabino Malik MD; Dr. Terry Flores MD; Dr. Frances Natarajan MD; Debra Bunn NP ~ [facility]09-09-2025 [facility]09-09-2025 Progress note Author Ab [facility] Note Date/Time March 08, 2025 10:36am [facility] Medical Records Department [address] [place] [address] Progress Note - Infect Disease 03/08/25 1035 MR#: [id number] Acct: [id number] Name: STEVE VIEIRA Rep #:[id number] : 1945 79 From: Ab kahn MD PCP: Dr. Peter Ellis MD Status:AD M IN Location: [place] [address] Physical Exam Narrative Feeling better, no abd pain, no fever Const alert and no apparent distress General Appearance: cooperative Resp normal air movement and clear to auscultation bilaterally Cardio regular rate and regular rhythm GI soft to palpation, non-tender and non-distended Skin no rashes or lesions noted ID ID: Route of nutrition/ use of supplements: [] Nutritional Intake: [] IV Site: [] Bray Catheter: [] Assessment & Plan Assessment/Plan (1) Sepsis: PLAN: sepsis due to esbl ecoli bacteremia from pneumonia and complicated uti - sputum cx with MRSA and ESBL ecoli. CT showed cystitis and pneumonia. Overall improved, wbc better, fever resolved, feeling better. Ok for discharge to F with short course po linezolid and IM ertapenem. Wrote rx, d/w insurance case manager. Will follow (2) Acute hypoxic respiratory failure: (3) Bacteremia due to Gram-negative bacteria: 03/08/25 1036 <Electronically signed by Ab Nur MD> Cosigner Signature (if applicable): CC: ~ Signed [facility] Work Phone: 1(603) 247-529109-09-2025 Progress note [facility] Medical Records Department [address] [place] [address] Progress Note - Hospitalist 03/08/2553 MR#: [id number] Acct: [id number] Name: STEVE VIEIRA Rep #:[id number] : 1945 79 From: Carl Couch DO PCP: Dr. Peter Ellis MD Status:AD IN Location: [place] [address] Reason for Visit Chief Complaint: Patient came in hypoxic Subjective Subjective Does not feels well, but cannot specify symptoms. Objective Data Objective Data Vital Signs: Vital Signs Temp Pulse Resp BP Pulse Ox O2 Del Method O2 Flow Rate 36.3 C L 82 18 130/63 H 95 Room Air 1 03/08/25 03:40 03/08/25 03:40 03/08/25 03:40 03/08/25 03:40 03/08/25 08:17 03/08/25 08:17 03/05/25 14:55 FiO2 30 03/04/25 09:00 Oxygen Flow Rate (L/min) 1 Oxygen Delivery Method Room Air Weight: 84.9 kg Body Mass Index (BMI) 37.7 Intake & Output: Intake and Output for Last 24 Hours 03/06/25 03/07/25 03/08/25 23:59 23:59 23:59 Intake Total 805 / 925 1025 / 1025 100 / 100 Output Total 600 / 1050 1300 / 1300 Balance 205 / -125 -275 / -275 100 / 100 Lab / Micro Data 03/08/25 06:52 03/08/25 06:52 Labs: Laboratory Results - last 24 hr 03/07/25 12:00: POC Glucose 167 H 03/07/25 16:08: POC Glucose 204 H 03/07/25 21:11: POC Glucose 166 H 03/08/25 06:52: WBC 4.7, RBC 2.80 L, Hgb 8.6 L, Hct 26.8 L, MCV 95.7, MCH 30.7, MCHC 32.1, RDW Std Deviation 48.3 H, RDW Coeff of Nicholas 13.7, Plt Count 149 L, MPV10.4, Immature Gran % (Auto) 1.900 H, Neut % (Auto) 71.0 H, Lymph % (Auto) 19.7,[place]lade % (Auto) 5.7, Eos % (Auto) 1.3, Baso % (Auto) 0.4, Absolute Neuts (auto) 3.4, Absolute Lymphs (auto) 0.93, Nucleated RBC % 0, Sodium 140, Potassium 3.2 L,Chloride 106, Carbon Dioxide 24.0, Anion Gap 10, BUN 6, Creatinine 0.60 L, Estim Creat Clear Calc 53.34, Est GFR (MDRD) Non-Af 90, BUN/Creatinine Ratio 10.3, Glucose 172 H, Calcium 8.4, Vancomycin Trough 13.0 Micro: Microbiology 03/03/25 14:54 Sputum, Induced/Lukens Gram Stain - Final 03/03/25 14:54 Sputum, Induced/Lukens Respiratory Culture - Final ESBL Escherichia coli Meth. resistant Staph. aureus 03/03/25 14:48 Urine Catheter - Catheter Urine Culture - Final ESBL Escherichia coli 03/03/25 14:10 Blood Culture (Wb) - Venous Blood Culture - Final GNR lactose casing in line feeder 03/03/25 14:20 Blood Culture (Wb) - Venous Blood Culture - Final ESBL Escherichia coli 03/03/25 17:25 Mucosa - Nasopharyngeal Respiratory Panel (PCR) - Final 03/03/25 14:48 Mucosa - Nose SARS-CoV-2, Influenza & RSV [...] Extremity normal to inspection and full ROM Neuro Sensorium / Orientation: awake Assessment & Plan Assessment/Plan (1) Acute hypoxic respiratory failure: (2) Sepsis: (3) Hyperlipidemia: PLAN: Plan Acute hypoxic respiratory failure due to probable aspiration pneumonia * Was intubated on admission due to hypoxia. Now extubated and down to room air today. * Respiratory panel negative. COVID, flu and RSV also negative. * Blood, sputum and urinary cultures all growing ESBL E. coli. Sputum cultures also growing MRSA. On IV vancomycin and Zosyn. * ID following and ordered PO linezolid and IM ertapenem. Pneumonia * E. coli and MRSA. * iglesia and vancomycin. Outpt PO linezolid and IM ertapenem. * ID following Sepsis due to UTI and pneumonia * Was tachycardic and tachypneic on admission was also febrile with temperature up to 102.6. Lacticacid was elevated at 3.4 and WBC was 13.5. Bilirubin was elevated and she was also tachypneic * Urinalysis did show evidence of elevated nitrites and leukocyte esterase as well as elevated WBC but no bacteria. * Currently on broad-spectrum IV antibiotics. Blood and urine cultures as well as sputum cultures growing E. coli * ID consulted. E. coli bacteremia: As above Elevated troponins: * Likely due to demand ischemia. No chest pain. Stable. * Initial troponin was 54 but subsequently trended down to 25. This was likely due to her hypoxia. Elevated liver enzymes, * total bilirubin today is down to 0.94. However AST and ALT have trended up slightly though ALP has trended down. Direct bilirubin is 0.7 which is slightly elevated. * CT abdomen and pelvis did not show any visualization of the gallbladder and showed no significantbiliary dilatation. * Will check hepatitis panel Pancytopenia: * Hemoglobin is 7.7 with WBC of 4.3 and platelets of 145. Platelets up from yesterday. * Hemoglobin has of dropped from 10.4 when she was admitted. * Will check stool for occult blood and check iron panel and ferritin. * Hold all blood thinners Chronic medical conditions: * GERD: On PPI * type 2 diabetes mellitus: On insulin sliding scale. Accu-Cheks ACHS. * Depression and anxiety: On Lexapro * Hypothyroidism: On Synthroid DVT prophylaxis: SCDs 03/08/25 1225 Cosigner Signature (if applicable): CC: ~ Signed [facility]09-09-2025 Progress note [facility] Medical Records Department [address] [place] [address] Progress Note - Infect Disease 03/08/25 1035 MR#: [id number] Acct: [id number] Name: STEVE VIEIRA Rep #:[id number] : 1945 79 From: Ab kahn MD PCP: Dr. Peter Ellis MD Status:AD M IN Location: [place] [address] Physical Exam Narrative Feeling better, no abd pain, no fever Const alert and no apparent distress General Appearance: cooperative Resp normal air movement and clear to auscultation bilaterally Cardio regular rate and regular rhythm GI soft to palpation, non-tender and non-distended Skin no rashes or lesions noted ID ID: Route of nutrition/ use of supplements: [] Nutritional Intake: [] IV Site: [] Bray Catheter: [] Assessment & Plan Assessment/Plan (1) Sepsis: PLAN: sepsis due to esbl ecoli bacteremia from pneumonia and complicated uti - sputum cx with MRSA and ESBL ecoli. CT showed cystitis and pneumonia. Overall improved, wbc better, fever resolved, feeling better. Ok for discharge to F with short course po linezolid and IM ertapenem. Wrote rx, d/w insurance case manager. Will follow (2) Acute hypoxic respiratory failure: (3) Bacteremia due to Gram-negative bacteria: 03/08/25 103 Cosigner Signature (if applicable): CC: ~ Signed [facility]09-08-2025 Progress note Author Carl Couch [facility] Note Date/Time March 07, 2025 5:08pm [facility] Medical Records Department [address] [facility] [facility] [place] [address] Progress Note - Hospitalist 03/07/25 1015 MR#: [id number] Acct: [id number] Name: STEVE VIEIRA Rep #:[id number] : 1945 79 From: Carl Couch DO PCP: Dr. Peter Ellis MD Status:AD M IN Location: [facility] [id number] Reason for Visit Chief Complaint: Patient came in hypoxic Subjective Subjective Denies complaints Objective Data Objective Data Vital Signs: Vital Signs Temp Pulse Resp BP Pulse Ox O2 Del Method O2 Flow Rate 36.3 C L 71 16 135/68 H 94 Room Air 1 03/07/25 09:35 03/07/25 09:35 03/07/25 09:35 03/07/25 09:35 03/07/25 09:35 03/07/25 09:35 03/05/25 14:55 FiO2 30 03/04/25 09:00 Oxygen Flow Rate (L/min) 1 Oxygen Delivery Method Room Air Weight: 86.3 kg Body Mass Index (BMI) 38.3 Intake & Output: Intake and Output for Last 24 Hours 03/05/25 03/06/25 03/07/25 23:59 23:59 23:59 Intake Total 765 / 885 805 / 925 435 / 435 Output Total 970 / 1270 600 / 1050 950 / 950 Balance -205 / -385 205 / -125 -515 / -515 Lab / Micro Data 03/07/25 05:17 03/07/25 05:17 Labs: Laboratory Results - last 24 hr 03/06/25 06:24: Iron 51, TIBC 147 L, Iron Saturation 35.0, Unsaturated IBC 95 L,Ferritin 310 03/06/25 10:31: POC Glucose 204 H 03/06/25 17:15: Vancomycin Trough 11.0 03/06/25 17:59: POC Glucose 159 H 03/06/25 21:28: POC Glucose 189 H 03/07/25 05:17: WBC 3.7 L, RBC 2.68 L, Hgb 8.2 L, Hct 26.5 L, MCV 98.9, MCH 30.6, MCHC 30.9 L, RDW Std Deviation 51.2 H, RDW Coeff of Nicholas 14.2, Plt Count TNP, MPV 11.2, Immature Gran % (Auto) 1.600 H, Neut % (Auto) 64.9, Lymph % (Auto) 24.7, [place] % (Auto) 5.8, Eos % (Auto) 2.5, Baso % (Auto) 0.5, Absolute Neuts (auto) 2.4, Absolute Lymphs (auto) 0.90, Nucleated RBC % 0, Platelet Estimate ADEQUATE, Plt Morphology Comment CLUMPED, Sodium 139, Potassium 3.7, Chloride 108, Carbon Dioxide 22.5, Anion Gap 9, BUN 11, Creatinine 0.65 L, EstimCreat Clear Calc 53.82, Est GFR (MDRD) Non-Af 88, BUN/Creatinine Ratio 16.6, Glucose 179 H, Calcium 8.5 03/07/25 06:23: POC Glucose 165 H Micro: Microbiology 03/03/25 14:54 Sputum, Induced/Lukens Gram Stain - Final 03/03/25 14:54 Sputum, Induced/Lukens Respiratory Culture - Final ESBL Escherichia coli Meth. resistant Staph. aureus 03/03/25 14:48 Urine Catheter - Catheter Urine Culture - Final ESBL Escherichia coli 03/03/25 14:10 Blood Culture (Wb) - Venous Blood Culture - Final GNR lactose casing in line feeder 03/03/25 14:20 Blood Culture (Wb) - Venous Blood Culture - Final ESBL Escherichia coli 03/03/25 17:25 Mucosa - Nasopharyngeal Respiratory Panel (PCR) - Final 03/03/25 14:48 Mucosa - Nose SARS-CoV-2, Influenza & RSV (PCR) - Final Physical Exam Const alert and no apparent distress Constitutional Narrative: Lying in bed on her right side. Pleasantly confused. Resp normal respiratory effort, no retractions, no use of accessory muscles and clearto auscultation bilaterally Cardio regular rate, regular rhythm, S1 normal heart sound and S2 normal heart sound GI normal to inspection, nondistended, normoactive bowel sounds, soft to palpation,non-tender and non-distended Extremity normal to inspection, full ROM and no clubbing, cyanosis or edema Neuro Sensorium / Orientation: awake, alert, oriented to person, oriented to place andoriented to time Assessment & Plan Assessment/Plan (1) Acute hypoxic respiratory failure: (2) Sepsis: (3) Hyperlipidemia: PLAN: Plan Acute hypoxic respiratory failure due to probable aspiration pneumonia * Was intubated on admission due to hypoxia. Now extubated and down to room air today. * Respiratory panel negative. COVID, flu and RSV also negative. * Critical care on board. Titrate oxygen to maintain saturation above 90%. * Breathing treatments bronchodilators. * Abnormal chest CT was concerning for aspiration pneumonia. * Blood, sputum and urinary cultures all growing E. coli. Sputum cultures also growing MRSA. On IV vancomycin and Zosyn. Pneumonia * E. coli and MRSA. * iglesia and vancomycin * ID following Sepsis due to UTI and pneumonia * Was tachycardic and tachypneic on admission was also febrile with temperature up to 102.6. Lactic acid was elevated at 3.4 and WBC was 13.5. Bilirubin was elevated and she was also tachypneic * Urinalysis did show evidence of elevated nitrites and leukocyte esterase as well as elevated WBC but no bacteria. * Currently on broad-spectrum IV antibiotics. Blood and urine cultures as well as sputum cultures growing E. coli * ID consulted. E. coli bacteremia: As above Elevated troponins: * Likely due to demand ischemia. No chest pain. Stable. * Initial troponin was 54 but subsequently trended down to 25. This was likely due to her hypoxia. Elevated liver enzymes, * total bilirubin today is down to 0.94. However AST and ALT have trended up slightly though ALP has trended down. Direct bilirubin is 0.7 which is slightly elevated. * CT abdomen and pelvis did not show any visualization of the gallbladder and showed no significant biliary dilatation. * Will check hepatitis panel Pancytopenia: * Hemoglobin is 7.7 with WBC of 4.3 and platelets of 145. Platelets up from yesterday. * Hemoglobin has of dropped from 10.4 when she was admitted. * Will check stool for occult blood and check iron panel and ferritin. * Hold all blood thinners Chronic medical conditions: * GERD: On PPI * type 2 diabetes mellitus: On insulin sliding scale. Accu-Cheks ACHS. * Depression and anxiety: On Lexapro * Hypothyroidism: On Synthroid DVT prophylaxis: Lovenox. Hold Lovenox in light of anemia. SCDs Charges/Coding Visit Charges Inpatient E&M: 32083 Subs Hosp L2 03/07/25 1708 <Electronically signed by Carl Couch DO> Cosigner Signature (if applicable): CC: ~ Signed [facility] Work Phone: 1(736) 637-663309-08-2025 Progress note [facility] Medical Records Department [address] [facility] [place] [address] Progress Note - Hospitalist 03/07/25 1015 MR#: [id number] Acct: [id number] Name: STEVE VIEIRA Rep #:[id number] : 1945 79 From: Carl Couch DO PCP: Dr. Peter Ellis MD Status:AD M IN Location: [place] [address] Reason for Visit Chief Complaint: Patient came in hypoxic Subjective Subjective Denies complaints Objective Data Objective Data Vital Signs: Vital Signs Temp Pulse Resp BP Pulse Ox O2 Del Method O2 Flow Rate 36.3 C L 71 16 135/68 H 94 Room Air 1 03/07/25 09:35 03/07/25 09:35 03/07/25 09:35 03/07/25 09:35 03/07/25 09:35 03/07/25 09:35 03/05/25 14:55 FiO2 30 03/04/25 09:00 Oxygen Flow Rate (L/min) 1 Oxygen Delivery Method Room Air Weight: 86.3 kg Body Mass Index (BMI) 38.3 Intake & Output: Intake and Output for Last 24 Hours 03/05/25 03/06/25 03/07/25 23:59 23:59 23:59 Intake Total 765 / 885 805 / 925 435 / 435 Output Total 970 / 1270 600 / 1050 950 / 950 Balance -205 / -385 205 / -125 -515 / -515 Lab / Micro Data 03/07/25 05:17 03/07/25 05:17 Labs: Laboratory Results - last 24 hr 03/06/25 06:24: Iron 51, TIBC 147 L, Iron Saturation 35.0, Unsaturated IBC 95 L,Ferritin 310 03/06/25 10:31: POC Glucose 204 H 03/06/25 17:15: Vancomycin Trough 11.0 03/06/25 17:59: POC Glucose 159 H 03/06/25 21:28: POC Glucose 189 H 03/07/25 05:17: WBC 3.7 L, RBC 2.68 L, Hgb 8.2 L, Hct 26.5 L, MCV 98.9, MCH 30.6, MCHC 30.9 L, RDW Std Deviation 51.2 H, RDW Coeff of Nicholas 14.2, Plt Count TNP, MPV 11.2, Immature Gran % (Auto) 1.600 H, Neut % (Auto) 64.9, Lymph % (Auto) 24.7, [place] % (Auto) 5.8, Eos % (Auto) 2.5, Baso % (Auto) 0.5, Absolute Neuts (auto) 2.4, Absolute Lymphs (auto) 0.90, Nucleated RBC % 0, Platelet Estimate ADEQUATE, Plt Morphology Comment CLUMPED, Sodium 139, Potassium 3.7, Chloride 108, Carbon Dioxide 22.5, Anion Gap 9, BUN 11, Creatinine 0.65 L, EstimCreat Clear Calc 53.82, Est GFR (MDRD) Non-Af 88, BUN/Creatinine Ratio 16.6, Glucose 179 H, Calcium 8.5 03/07/25 06:23: POC Glucose 165 H Micro: Microbiology 03/03/25 14:54 Sputum, Induced/Lukens Gram Stain - Final 03/03/25 14:54 Sputum, Induced/Lukens Respiratory Culture - Final ESBL Escherichia coli Meth. resistant Staph. aureus 03/03/25 14:48 Urine Catheter - Catheter Urine Culture - Final ESBL Escherichia coli 03/03/25 14:10 Blood Culture (Wb) - Venous Blood Culture - Final GNR lactose casing in line feeder 03/03/25 14:20 Blood Culture (Wb) - Venous Blood Culture - Final ESBL Escherichia coli 03/03/25 17:25 Mucosa - Nasopharyngeal Respiratory Panel (PCR) - Final 03/03/25 14:48 Mucosa - Nose SARS-CoV-2, Influenza & RSV (PCR) - Final Physical Exam Const alert and no apparent distress Constitutional Narrative: Lying in bed on her right side. Pleasantly confused. Resp normal respiratory effort, no retractions, no use of accessory muscles and clearto auscultation bilaterally Cardio regular rate, regular rhythm, S1 normal heart sound and S2 normal heart sound GI normal to inspection, nondistended, normoactive bowel sounds, soft to palpation,non-tender and non-distended Extremity normal to inspection, full ROM and no clubbing, cyanosis or edema Neuro Sensorium / Orientation: awake, alert, oriented to person, oriented to place andoriented to time Assessment & Plan Assessment/Plan (1) Acute hypoxic respiratory failure: (2) Sepsis: (3) Hyperlipidemia: PLAN: Plan Acute hypoxic respiratory failure due to probable aspiration pneumonia * Was intubated on admission due to hypoxia. Now extubated and down to room air today. * Respiratory panel negative. COVID, flu and RSV also negative. * Critical care on board. Titrate oxygen to maintain saturation above 90%. * Breathing treatments bronchodilators. * Abnormal chest CT was concerning for aspiration pneumonia. * Blood, sputum and urinary cultures all growing E. coli. Sputum cultures also growing MRSA. On IV vancomycin and Zosyn. Pneumonia * E. coli and MRSA. * iglesia and vancomycin * ID following Sepsis due to UTI and pneumonia * Was tachycardic and tachypneic on admission was also febrile with temperature up to 102.6. Lacticacid was elevated at 3.4 and WBC was 13.5. Bilirubin was elevated and she was also tachypneic * Urinalysis did show evidence of elevated nitrites and leukocyte esterase as well as elevated WBC but no bacteria. * Currently on broad-spectrum IV antibiotics. Blood and urine cultures as well as sputum cultures growing E. coli * ID consulted. E. coli bacteremia: As above Elevated troponins: * Likely due to demand ischemia. No chest pain. Stable. * Initial troponin was 54 but subsequently trended down to 25. This was likely due to her hypoxia. Elevated liver enzymes, * total bilirubin today is down to 0.94. However AST and ALT have trended up slightly though ALP has trended down. Direct bilirubin is 0.7 which is slightly elevated. * CT abdomen and pelvis did not show any visualization of the gallbladder and showed no significantbiliary dilatation. * Will check hepatitis panel Pancytopenia: * Hemoglobin is 7.7 with WBC of 4.3 and platelets of 145. Platelets up from yesterday. * Hemoglobin has of dropped from 10.4 when she was admitted. * Will check stool for occult blood and check iron panel and ferritin. * Hold all blood thinners Chronic medical conditions: * GERD: On PPI * type 2 diabetes mellitus: On insulin sliding scale. Accu-Cheks ACHS. * Depression and anxiety: On Lexapro * Hypothyroidism: On Synthroid DVT prophylaxis: Lovenox. Hold Lovenox in light of anemia. SCDs Charges/Coding Visit Charges Inpatient E&M: 20930 Subs Hosp L2 03/07/25 4042 Cosigner Signature (if applicable): CC: ~ Signed [facility]09-08-2025 Consult note Author Ab Nur [facility] Note Date/Time March 07, 2025 10:31am [facility] Medical Records Department [address] [place] [address] Consultation - Infectious Dx 03/07/25 1028 MR#: [id number] Acct: [id number] Name: STEVE VIEIRA Rep #:[id number] : 1945 79 From: Ab kahn MD PCP: Dr. Peter Ellis MD Status:AD M IN Location: [place] [address]- 1 Assessment & Plan Assessment/Plan (1) Sepsis: PLAN: sepsis due to esbl ecoli bacteremia from pneumonia and complicated uti - sputum cx with MRSA and ESBL ecoli. CT showed cystitis and pneumonia. Overall improved, wbc better, fever resolved, feeling better. Will change to vanc/iglesia for better ESBL coverage. Will follow, thank you (2) Acute hypoxic respiratory failure: (3) Bacteremia due to Gram-negative bacteria: HPI Consult Data Date of Consult: 03/07/25 HPI Narrative Reason for Consultation: bacteremia HPI Narrative: STEVE VIEIRA, is a 79 F with h/o DM, depression, presented to ED 03/03 with acute onset fever, dyspnea, not feeling well. She is unable to provide history. In ED, was intubated, admitted to icu on vanc/zosyn. Now off vent, out of icu. Feeling ok. Full ROS performed and neg except as noted above. Denies cough, dyspnea, abd pain, n/v/d. [facility] Medical History History of ESBL E. coli infection Chronic depression Uncontrolled type 2 diabetes mellitus with hyperglycemia Chronic anemia Diabetes Kidney stones Adult failure to thrive Hyperglycemia due to diabetes mellitus Acute dehydration Head injury Home Medications ?Medication ?Instructions ?Recorded ?Last Taken ?Type levothyroxine 50 mcg tablet 50 mcg PO .TUTMARILOUSASU thyro id 06/07/14 03/03/25 History atorvastatin 40 mg tablet 40 mg PO QHS CHOLESTEROL 03/02/25 History escitalopram oxalate 10 mg tablet 10 mg PO DAILY DEPRE SS 05/28/19 03/03/25 History levothyroxine 25 mcg tablet 75 mcg PO .MWF thyroid 04/2203/02/25 History acetaminophen 325 mg tablet 650 mg (2 x 325 mg) PO Q6H PRN PRN 12/06/23 03/03/25 Rx Pain 1-10 Or Fever>100.7 #0 tabs melatonin 3 mg tablet 3 mg PO QHS PRN PRN Insomnia #0 12/06/23 03/02/25 Rx tabs menthol 0.44 %-zinc oxide 20.6 % 1 applic topical BID redness 12/06/23 12/06/23 History topical ointment (Calmoseptine) acetaminophen 650 mg rectal 650 mg KS Q4H PRN fever or pain 03/03/25 Unknown History suppository bisacodyl 10 mg rectal suppository 10 mg KS DAILY PRN constipation 03/03/25 Unknown History cholecalciferol (vitamin D3) 1,250 1,250 mcg PO .Qmond ay supplement 03/03/25 02/28/25 History mcg (50,000 unit) capsule ferrous sulfate 325 mg (65 mg 325 mg PO BID iron suppl ement 03/03/25 03/03/25 History iron) tablet (FeroSul) guaifenesin 100 mg/5 mL oral 200 mg PO Q4H PRN congest ion, cough 03/03/25 Unknown History liquid (Adult Tussin Chest Congestion) insulin glargine 100 unit/mL (3 26 unit subcut QPM maria de jesus betes 03/03/25 03/02/25 History mL) subcutaneous pen (Lantus Solostar U-100 Insulin) insulin glargine 100 unit/mL (3 40 unit subcut .am maria de jesus betes 03/03/25 03/03/25 History mL) subcutaneous pen (Lantus Solostar U-100 Insulin) insulin lispro 100 unit/mL 5 unit subcut BIDAC diabete s 03/03/25 03/03/25 History subcutaneous pen (Humalog KwikPen (U-100) Insulin) insulin lispro 100 unit/mL 1 sliding scale dose subcut .AC 03/03/25 03/03/25 History subcutaneous solution (Humalog Diabetes U-100 Insulin) magnesium hydroxide 400 mg/5 mL 30 ml PO DAILY PRN con stipation 03/03/25 Unknown History oral suspension (Milk of Magnesia) oxybutynin chloride 10 mg 10 mg PO .HS bladder spasms 03/03/25 03/02/25 History tablet,extended release 24 hr pantoprazole 20 mg tablet,delayed 20 mg PO DAILY GERD 03/03/25 03/03/25 History release sennosides 8.6 mg-docusate sodium 1 tab PO DAILY const ipation 03/03/25 03/03/25 History 50 mg tablet (Stool Softener-Stimulant Laxative) Allergy/AdvReac Type Severity Reaction Status Date / Time venlafaxine HCl (From Allergy Rash Verified 03/03/25 14:19 Effexor) meclizine AdvReac Other Verified 03/03/25 14:19 Surgical History History of cholecystectomy History of knee joint replacement H/O: section Social History household members: none Smoking Status: Unknown if ever smoked alcohol intake: never substance use type: does not use Physical Exam Const alert and no apparent distress General Appearance: cooperative HEENT normocephalic and head/scalp atraumatic Eyes PERRL and EOMs intact bilaterally Neck supple and No nodes Resp normal air movement Auscultation: diminished lung sounds Cardio regular rate and regular rhythm GI soft to palpation, non-tender and non-distended Extremity General Extremity: Negative for edema Skin no rashes or lesions noted Neuro CN's II-XII intact bilaterally Lab / Micro Data Attestation: I reviewed the patient's lab results. 03/07/25 05:17 03/07/25 05:17 Labs: Laboratory Results - last 24 hr 03/06/25 06:24: Iron 51, TIBC 147 L, Iron Saturation 35.0, Unsaturated IBC 95 L,Ferritin 310 03/06/25 10:31: POC Glucose 204 H 03/06/25 17:15: Vancomycin Trough 11.0 03/06/25 17:59: POC Glucose 159 H 03/06/25 21:28: POC Glucose 189 H 03/07/25 05:17: WBC 3.7 L, RBC 2.68 L, Hgb 8.2 L, Hct 26.5 L, MCV 98.9, MCH 30.6, MCHC 30.9 L, RDW Std Deviation 51.2 H, RDW Coeff of Nicholas 14.2, Plt Count TNP, MPV 11.2, Immature Gran % (Auto) 1.600 H, Neut % (Auto) 64.9, Lymph % (Auto) 24.7, [place] % (Auto) 5.8, Eos % (Auto) 2.5, Baso % (Auto) 0.5, Absolute Neuts (auto) 2.4, Absolute Lymphs (auto) 0.90, Nucleated RBC % 0, Platelet Estimate ADEQUATE, Plt Morphology Comment CLUMPED, Sodium 139, Potassium 3.7, Chloride 108, Carbon Dioxide 22.5, Anion Gap 9, BUN 11, Creatinine 0.65 L, EstimCreat Clear Calc 53.82, Est GFR (MDRD) Non-Af 88, BUN/Creatinine Ratio 16.6, Glucose 179 H, Calcium 8.5 03/07/25 06:23: POC Glucose 165 H Micro: Microbiology 03/03/25 14:54 Sputum, Induced/Lukens Gram Stain - Final 03/03/25 14:54 Sputum, Induced/Lukens Respiratory Culture - Final ESBL Escherichia coli Meth. resistant Staph. aureus 03/03/25 14:48 Urine Catheter - Catheter Urine Culture - Final ESBL Escherichia coli 03/03/25 14:10 Blood Culture (Wb) - Venous Blood Culture - Final GNR lactose casing in line feeder 03/03/25 14:20 Blood Culture (Wb) - Venous Blood Culture - Final ESBL Escherichia coli 03/07/25 1031 <Electronically signed by Ab Nur MD> Cosigner Signature (if applicable): CC: Dr. Peter Ellis MD~ Signed [facility] Work Phone: [phone] 265-114409-08-2025 Consult note [facility] Medical Records Department [address] [place] [address] Consultation - Infectious Dx 03/07/25 1028 MR#: [id number] Acct: [id number] Name: STEVE VIEIRA Rep #:[id number] : 1945 79 From: Ab kahn MD PCP: Dr. Peter Ellis MD Status:AD M IN Location: [place] [address]- Assessment & Plan Assessment/Plan (1) Sepsis: PLAN: sepsis due to esbl ecoli bacteremia from pneumonia and complicated uti - sputum cx with MRSA and ESBL ecoli. CT showed cystitis and pneumonia. Overall improved, wbc better, fever resolved, feeling better. Will change to vanc/iglesia for better ESBL coverage. Will follow, thank you (2) Acute hypoxic respiratory failure: (3) Bacteremia due to Gram-negative bacteria: HPI Consult Data Date of Consult: 03/07/25 HPI Narrative Reason for Consultation: bacteremia HPI Narrative: STEVE VIEIRA, is a 79 F with h/o DM, depression, presented to ED 03/03 with acute onset fever, dyspnea, not feeling well. She is unable to provide history. In ED, was intubated, admitted to icu on vanc/zosyn. Now off vent, out of icu. Feeling ok. Full ROS performed and neg except as noted above. Denies cough, dyspnea, abd pain, n/v/d. [facility] Medical History History of ESBL E. coli infection Chronic depression Uncontrolled type 2 diabetes mellitus with hyperglycemia Chronic anemia Diabetes Kidney stones Adult failure to thrive Hyperglycemia due to diabetes mellitus Acute dehydration Head injury Home Medications ?Medication ?Instructions ?Recorded ?Last Taken ?Type levothyroxine 50 mcg tablet 50 mcg PO .CHRISTOPHSASU thyro id 06/07/14 03/03/25 History atorvastatin 40 mg tablet 40 mg PO QHS CHOLESTEROL 03/02/25 History escitalopram oxalate 10 mg tablet 10 mg PO DAILY DEPRE SS 05/28/19 03/03/25 History levothyroxine 25 mcg tablet 75 mcg PO .MWF thyroid 04/2203/02/25 History acetaminophen 325 mg tablet 650 mg (2 x 325 mg) PO Q6H PRN PRN 12/06/23 03/03/25 Rx Pain 1-10 Or Fever>100.7 #0 tabs melatonin 3 mg tablet 3 mg PO QHS PRN PRN Insomnia #0 12/06/23 03/02/25 Rx tabs menthol 0.44 %-zinc oxide 20.6 % 1 applic topical BID redness 12/06/23 12/06/23 History topical ointment (Calmoseptine) acetaminophen 650 mg rectal 650 mg KS Q4H PRN fever or pain 03/03/25 Unknown History suppository bisacodyl 10 mg rectal suppository 10 mg KS DAILY PRN constipation 03/03/25 Unknown History cholecalciferol (vitamin D3) 1,250 1,250 mcg PO .Qmond ay supplement 03/03/25 02/28/25 History mcg (50,000 unit) capsule ferrous sulfate 325 mg (65 mg 325 mg PO BID iron suppl ement 03/03/25 03/03/25 History iron) tablet (FeroSul) guaifenesin 100 mg/5 mL oral 200 mg PO Q4H PRN congest ion, cough 03/03/25 Unknown History liquid (Adult Tussin Chest Congestion) insulin glargine 100 unit/mL (3 26 unit subcut QPM maria de jesus betes 03/03/25 03/02/25 History mL) subcutaneous pen (Lantus Solostar U-100 Insulin) insulin glargine 100 unit/mL (3 40 unit subcut .am maria de jesus betes 03/03/25 03/03/25 History mL) subcutaneous pen (Lantus Solostar U-100 Insulin) insulin lispro 100 unit/mL 5 unit subcut BIDAC diabete s 03/03/25 03/03/25 History subcutaneous pen (Humalog KwikPen (U-100) Insulin) insulin lispro 100 unit/mL 1 sliding scale dose subcut .AC 03/03/25 03/03/25 History subcutaneous solution (Humalog Diabetes U-100 Insulin) magnesium hydroxide 400 mg/5 mL 30 ml PO DAILY PRN con stipation 03/03/25 Unknown History oral suspension (Milk of Magnesia) oxybutynin chloride 10 mg 10 mg PO .HS bladder spasms 03/03/25 03/02/25 History tablet,extended release 24 hr pantoprazole 20 mg tablet,delayed 20 mg PO DAILY GERD 03/03/25 03/03/25 History release sennosides 8.6 mg-docusate sodium 1 tab PO DAILY const ipation 03/03/25 03/03/25 History 50 mg tablet (Stool Softener-Stimulant Laxative) Allergy/AdvReac Type Severity Reaction Status Date / Time venlafaxine HCl (From Allergy Rash Verified 03/03/25 14:19 Effexor) meclizine AdvReac Other Verified 03/03/25 14:19 Surgical History History of cholecystectomy History of knee joint replacement H/O: section Social History household members: none Smoking Status: Unknown if ever smoked alcohol intake: never substance use type: does not use Physical Exam Const alert and no apparent distress General Appearance: cooperative HEENT normocephalic and head/scalp atraumatic Eyes PERRL and EOMs intact bilaterally Neck supple and No nodes Resp normal air movement Auscultation: diminished lung sounds Cardio regular rate and regular rhythm GI soft to palpation, non-tender and non-distended Extremity General Extremity: Negative for edema Skin no rashes or lesions noted Neuro CN's II-XII intact bilaterally Lab / Micro Data Attestation: I reviewed the patient's lab results. 03/07/25 05:17 03/07/25 05:17 Labs: Laboratory Results - last 24 hr 03/06/25 06:24: Iron 51, TIBC 147 L, Iron Saturation 35.0, Unsaturated IBC 95 L,Ferritin 310 03/06/25 10:31: POC Glucose 204 H 03/06/25 17:15: Vancomycin Trough 11.0 03/06/25 17:59: POC Glucose 159 H 03/06/25 21:28: POC Glucose 189 H 03/07/25 05:17: WBC 3.7 L, RBC 2.68 L, Hgb 8.2 L, Hct 26.5 L, MCV 98.9, MCH 30.6, MCHC 30.9 L, RDW Std Deviation 51.2 H, RDW Coeff of Nicholas 14.2, Plt Count TNP, MPV 11.2, Immature Gran % (Auto) 1.600 H, Neut % (Auto) 64.9, Lymph % (Auto) 24.7, [place] % (Auto) 5.8, Eos % (Auto) 2.5, Baso % (Auto) 0.5, Absolute Neuts (auto) 2.4, Absolute Lymphs (auto) 0.90, Nucleated RBC % 0, Platelet Estimate ADEQUATE, Plt Morphology Comment CLUMPED, Sodium 139, Potassium 3.7, Chloride 108, Carbon Dioxide 22.5, Anion Gap 9, BUN 11, Creatinine 0.65 L, EstimCreat Clear Calc 53.82, Est GFR (MDRD) Non-Af 88, BUN/Creatinine Ratio 16.6, Glucose 179 H, Calcium 8.5 03/07/25 06:23: POC Glucose 165 H Micro: Microbiology 03/03/25 14:54 Sputum, Induced/Lukens Gram Stain - Final 03/03/25 14:54 Sputum, Induced/Lukens Respiratory Culture - Final ESBL Escherichia coli Meth. resistant Staph. aureus 03/03/25 14:48 Urine Catheter - Catheter Urine Culture - Final ESBL Escherichia coli 03/03/25 14:10 Blood Culture (Wb) - Venous Blood Culture - Final GNR lactose casing in line feeder 03/03/25 14:20 Blood Culture (Wb) - Venous Blood Culture - Final ESBL Escherichia coli 03/07/25 1031 Cosigner Signature (if applicable): CC: Dr. Peter Ellis MD~ Signed [facility]09-07-2025 Consult note Author Mehdi Lowe [facility] Note Date/Time March 06, 2025 6:34pm [facility] Medical Records Department [address] [place] [address] Pharmacokinetic/Renal -Consult 03/06/25 1833 MR#: [id number] Acct: [id number] Name: STEVE VIEIRA Rep #:[id number] : 1945 79 From: Mehdi Gómez [facility] PCP: Dr. Peter Ellis MD Status:AD M IN Location: [place] [address] Consult Antibiotic Management Pharmacy has been consulted to manage selected antibiotic: Vancomycin Type of Intervention Type of Consult: Follow-up Suspected Infection Suspected Infection: Sepsis Labs Labs: Sodium 138 mmol/L (133-145) 03/06/25 06:24 Potassium 3.6 mmol/L (3.3-5.1) 03/06/25 06:24 Chloride 109 mmol/L (98-108) H 03/06/25 06:24 Carbon Dioxide 20.7 mmol/L (21.0-32.0) L 03/06/25 06:24 Anion Gap 8 (5-15) 03/06/25 06:24 BUN 14 mg/dL (4-19) 03/06/25 06:24 Creatinine 0.68 mg/dL (0.70-1.20) L 03/06/25 06:24 Est GFR (MDRD) Non-Af 87 (>60) 03/06/25 06:24 BUN/Creatinine Ratio 21.1 RATIO (10-20) H 03/06/25 06:24 Glucose 180 mg/dL (70-99) H 03/06/25 06:24 Vancomycin Trough 11.0 ug/mL (5.0-15.0) 03/06/25 17:15 Microbiology Microbiology: Microbiology 03/03/25 14:54 Sputum, Induced/Lukens Gram Stain - Final 03/03/25 14:54 Sputum, Induced/Lukens Respiratory Culture - Final ESBL Escherichia coli Meth. resistant Staph. aureus 03/03/25 14:48 Urine Catheter - Catheter Urine Culture - Final ESBL Escherichia coli 03/03/25 14:10 Blood Culture (Wb) - Venous Blood Culture - Final GNR lactose casing in line feeder 03/03/25 14:20 Blood Culture (Wb) - Venous Blood Culture - Final ESBL Escherichia coli 03/03/25 17:25 Mucosa - Nasopharyngeal Respiratory Panel (PCR) - Final 03/03/25 14:48 Mucosa - Nose SARS-CoV-2, Influenza & RSV (PCR) - Final Goal Trough Goal Trough: 15-20 mcg/mL Pharmacy Plan for Drug Dosing Pharmacy Plan for Drug Dosing: VANCOMYCIN LEVEL RECEIVED Current Vancomycin Dose: 1250mg q24h (at 1800) Number of Doses Received: x2 of current dose Vancomycin Level: 11 (drawn 03/06 at 1715) Hours Since Last Dose: 12 hours since last 1250mg dose (03/05 at 1714) Renal Function: SrCr 0.68 Renal Function Trend: SrCr improving (was 1.16 on 03/04) Lab/Micro: Vancomycin Plan/Comments: resulted trough of 11 is below the ordered goal troughrange of 15-20. due to patients improving renal function, recommend changing dose to 750mg q12h and checking a trough prior to the 4th dose Pending Level: 03/08/25 at 0630 Pharmacy Service will continue to monitor and adjust dosing as required. Follow-Up Labs Follow-Up Labs: Trough: Vancomycin (03/08/25 at 0630) 03/06/25 1834 <Electronically signed by Mehdi Patel [facility]> Date _ Mehdi Lowe [facility] Wendyigncarlo Signature (if applicable): Date CC: ~ Signed [facility] Work Phone: 1(435) 782-409909-07-2025 Consult note [facility] Medical Records Department [address] [place] [address] Pharmacokinetic/Renal -Consult 03/06/25 1833 MR#: [id number] Acct: [id number] Name: STEVE VIEIRA Rep #:[id number] : 1945 79 From: Mehdi Gómez [facility] PCP: Dr. Peter Ellis MD Status:AD M IN Location: [facility] [id number]- 1 Consult Antibiotic Management Pharmacy has been consulted to manage selected antibiotic: Vancomycin Type of Intervention Type of Consult: Follow-up Suspected Infection Suspected Infection: Sepsis Labs Labs: Sodium 138 mmol/L (133-145) 03/06/25 06:24 Potassium 3.6 mmol/L (3.3-5.1) 03/06/25 06:24 Chloride 109 mmol/L (98-108) H 03/06/25 06:24 Carbon Dioxide 20.7 mmol/L (21.0-32.0) L 03/06/25 06:24 Anion Gap 8 (5-15) 03/06/25 06:24 BUN 14 mg/dL (4-19) 03/06/25 06:24 Creatinine 0.68 mg/dL (0.70-1.20) L 03/06/25 06:24 Est GFR (MDRD) Non-Af 87 (>60) 03/06/25 06:24 BUN/Creatinine Ratio 21.1 RATIO (10-20) H 03/06/25 06:24 Glucose 180 mg/dL (70-99) H 03/06/25 06:24 Vancomycin Trough 11.0 ug/mL (5.0-15.0) 03/06/25 17:15 Microbiology Microbiology: Microbiology 03/03/25 14:54 Sputum, Induced/Lukens Gram Stain - Final 03/03/25 14:54 Sputum, Induced/Lukens Respiratory Culture - Final ESBL Escherichia coli Meth. resistant Staph. aureus 03/03/25 14:48 Urine Catheter - Catheter Urine Culture - Final ESBL Escherichia coli 03/03/25 14:10 Blood Culture (Wb) - Venous Blood Culture - Final GNR lactose casing in line feeder 03/03/25 14:20 Blood Culture (Wb) - Venous Blood Culture - Final ESBL Escherichia coli 03/03/25 17:25 Mucosa - Nasopharyngeal Respiratory Panel (PCR) - Final 03/03/25 14:48 Mucosa - Nose SARS-CoV-2, Influenza & RSV (PCR) - Final Goal Trough Goal Trough: 15-20 mcg/mL Pharmacy Plan for Drug Dosing Pharmacy Plan for Drug Dosing: VANCOMYCIN LEVEL RECEIVED Current Vancomycin Dose: 1250mg q24h (at 1800) Number of Doses Received: x2 of current dose Vancomycin Level: 11 (drawn 03/06 at 1715) Hours Since Last Dose: 12 hours since last 1250mg dose (03/05 at 1714) Renal Function: SrCr 0.68 Renal Function Trend: SrCr improving (was 1.16 on 03/04) Lab/Micro: Vancomycin Plan/Comments: resulted trough of 11 is below the ordered goal troughrange of 15-20. dueto patients improving renal function, recommend changing dose to 750mg q12h and checking a trough prior to the 4th dose Pending Level: 03/08/25 at 0630 Pharmacy Service will continue to monitor and adjust dosing as required. Follow-Up Labs Follow-Up Labs: Trough: Vancomycin (03/08/25 at 0630) 03/06/25 1834 ering [facility]> Date _ Mehdi Lowe [facility] Cosigner Signature (if applicable): Date CC: ~ Signed [facility] [id number] Progress note Author Linda Marte [facility] Note Date/Time March 06, 2025 3:23pm [facility] Medical Records Department [address] [place] [address] Progress Note 03/06/25 1010 MR#: [id number] Acct: [id number] Name: STEVE VIEIRA Rep #:[id number] : 1945 79 From: Linda Marte MD PCP: Dr. Peter Ellis MD Status:AD M IN Location: [place] [address] Subjective Subjective Patient seen and examined with her nurse by her bedside.. She remains confused though she was more communicative today. She had no active complaints. She knows her name but does not know where she is or what year it is. Unable to do comprehensive review of systems due to her confusion. She has remained hemodynamically stable. Objective Data Objective Data Vital Signs: Vital Signs Temp Pulse Resp BP Pulse Ox O2 Del Method O2 Flow Rate 98.1 F 72 18 130/72 H 94 Room Air 1 03/06/25 09:27 03/06/25 09:27 03/06/25 09:27 03/06/25 09:27 03/06/25 09:27 03/06/25 09:27 03/05/25 14:55 FiO2 30 03/04/25 09:00 Oxygen Flow Rate (L/min) 1 Oxygen Delivery Method Room Air Weight: 190 lb 0.615 oz Body Mass Index (BMI) 38.2 Intake & Output: Intake and Output for Last 24 Hours 03/04/25 03/05/25 03/06/25 23:59 23:59 23:59 Intake Total 908.57 / 908.57 765 / 885 320 / 320 Output Total 500 / 850 970 / 1270 600 / 600 Balance 408.57 / 58.57 -205 / -385 -280 / -280 Lab / Micro Data 03/06/25 06:24 03/06/25 06:24 Labs: Laboratory Results - last 24 hr 03/05/25 11:45: POC Glucose 210 H 03/05/25 14:10: Hep Bs Antigen Nonreactive, Hep Bs Antibody Nonreactive, Hepatitis C Antibody Nonreactive 03/05/25 16:33: POC Glucose 179 H 03/05/25 21:32: POC Glucose 224 H 03/06/25 06:24: WBC 4.3 L, RBC 2.48 L, Hgb 7.7 L, Hct 24.4 L, MCV 98.4, MCH 31.0, MCHC 31.6 L, RDW Std Deviation 51.4 H, RDW Coeff of Nicholas 14.2, Plt Count 145 L, MPV 10.9, Immature Gran % (Auto) 0.700, Neut % (Auto) 73.1 H, Lymph % (Auto) 18.2 L, [place] % (Auto) 6.2, Eos % (Auto) 1.6, Baso % (Auto) 0.2, Absolute Neuts (auto) 3.2, Absolute Lymphs (auto) 0.79 L, Nucleated RBC % 0, Sodium 138, Potassium 3.6, Chloride 109 H, Carbon Dioxide 20.7 L, Anion Gap 8, BUN 14, Creatinine 0.68 L, Estim Creat Clear Calc 53.79, Est GFR (MDRD) Non-Af 87, BUN/Creatinine Ratio 21.1 H, Glucose 180 H, Calcium 8.4 03/06/25 06:29: POC Glucose 164 H Micro: Microbiology 03/03/25 14:54 Sputum, Induced/Lukens Gram Stain - Final 03/03/25 14:54 Sputum, Induced/Lukens Respiratory Culture - Final ESBL Escherichia coli Meth. resistant Staph. aureus 03/03/25 14:48 Urine Catheter - Catheter Urine Culture - Final ESBL Escherichia coli 03/03/25 14:10 Blood Culture (Wb) - Venous Blood Culture - Final GNR lactose casing in line feeder 03/03/25 14:20 Blood Culture (Wb) - Venous Blood Culture - Final ESBL Escherichia coli 03/03/25 17:25 Mucosa - Nasopharyngeal Respiratory Panel (PCR) - Final 03/03/25 14:48 Mucosa - Nose SARS-CoV-2, Influenza & RSV (PCR) - Final Physical Exam Const alert Constitutional Narrative: flat affect, not answering any questions General Appearance: cooperative Orientation / Consciousness: confused HEENT normocephalic, head/scalp atraumatic, moist oral mucous membranes and oropharynxnormal Eyes EOMs intact bilaterally Neck supple and no JVD Lymph Lymphatic: no lymphedema noted Resp Resp Narrative: mildly diminished breath sounds bibasally, no wheezes or crackles. On room air. Cardio regular rate, regular rhythm, S1 normal heart sound, S2 normal heart sound and no murmurs GI normal to inspection, nondistended, normoactive bowel sounds, soft to palpation,non-tender and non-distended Extremity normal capillary refill and no clubbing, cyanosis or edema General Extremity: no tenderness to palpation of joints or extremities Skin General Skin Exam: no breakdown Neuro no focal motor deficits Neuro Narrative: flat affect Motor Exam: general weakness Psych Psych Narrative: flat affect, confused Mood & Affect: flat affect Assessment & Plan Assessment/Plan (1) Acute hypoxic respiratory failure: (2) Sepsis: (3) Hyperlipidemia: PLAN: Plan #Acute hypoxic respiratory failure due to probable aspiration pneumonia * Was intubated on admission due to hypoxia. Now extubated and down to room air today. * Respiratory panel negative. COVID, flu and RSV also negative. * Critical care on board. Titrate oxygen to maintain saturation above 90%. * Breathing treatments bronchodilators. * Abnormal chest CT was concerning for aspiration pneumonia. * Blood, sputum and urinary cultures all growing E. coli. Sputum cultures also growing MRSA. On IV vancomycin and Zosyn. * #Sepsis due to UTI and probable aspiration pneumonia * Was tachycardic and tachypneic on admission was also febrile with temperature up to 102.6. Lactic acid was elevated at 3.4 and WBC was 13.5. Bilirubin was elevated and she was also tachypneic * Urinalysis did show evidence of elevated nitrites and leukocyte esterase as well as elevated WBC but no bacteria. * Currently on broad-spectrum IV antibiotics. Blood and urine cultures as well as sputum cultures growing E. coli * ID consulted. Will likely see patient tomorrow. * #E. coli bacteremia: As above #Elevated troponins: * Likely due to demand ischemia. No chest pain. Stable. * Initial troponin was 54 but subsequently trended down to 25. This was likely due to her hypoxia. #Elevated liver enzymes, * total bilirubin today is down to 0.94. However AST and ALT have trended up slightly though ALP has trended down. Direct bilirubin is 0.7 which is slightly elevated. * CT abdomen and pelvis did not show any visualization of the gallbladder and showed no significant biliary dilatation. * Will check hepatitis panel * # Pancytopenia: * Hemoglobin is 7.7 with WBC of 4.3 and platelets of 145. Platelets up from yesterday. * Hemoglobin has of dropped from 10.4 when she was admitted. * Will check stool for occult blood and check iron panel and ferritin. * Hold all blood thinners * #GERD: On PPI #Type 2 diabetes mellitus: On insulin sliding scale. Accu-Cheks ACHS. #Depression and anxiety: On Lexapro #Hypothyroidism: On Synthroid #DVT prophylaxis: Lovenox. Hold Lovenox in light of anemia. SCDs Charges/Coding Visit Charges Inpatient E&M: 73729 Subs Hosp L2 03/06/25 1523 <Electronically signed by Linda Marte MD> Linda Marte MD Cosigner Signature (if applicable): CC: ~ Signed [facility] Work Phone: [phone]) 789-673009-07-2025 Progress note [facility] Medical Records Department [address] [place] [address] Progress Note 03/06/25 1010 MR#: [id number] Acct: [id number] Name: STEVE VIEIRA Rep #:[id number] : 1945 79 From: Linda Marte MD PCP: Dr. Peter Ellis MD Status:AD M IN Location: [place] [address] Subjective Subjective Patient seen and examined with her nurse by her bedside.. She remains confused though she was more communicative today. She had no active complaints. She knows her name but does not know where she isor what year it is. Unable to do comprehensive review of systems due to her confusion. She has remained hemodynamically stable. Objective Data Objective Data Vital Signs: Vital Signs Temp Pulse Resp BP Pulse Ox O2 Del Method O2 Flow Rate 98.1 F 72 18 130/72 H 94 Room Air 1 03/06/25 09:27 03/06/25 09:27 03/06/25 09:27 03/06/25 09:27 03/06/25 09:27 03/06/25 09:27 03/05/25 14:55 FiO2 30 03/04/25 09:00 Oxygen Flow Rate (L/min) 1 Oxygen Delivery Method Room Air Weight: 190 lb 0.615 oz Body Mass Index (BMI) 38.2 Intake & Output: Intake and Output for Last 24 Hours 03/04/25 03/05/25 03/06/25 23:59 23:59 23:59 Intake Total 908.57 / 908.57 765 / 885 320 / 320 Output Total 500 / 850 970 / 1270 600 / 600 Balance 408.57 / 58.57 -205 / -385 -280 / -280 Lab / Micro Data 03/06/25 06:24 03/06/25 06:24 Labs: Laboratory Results - last 24 hr 03/05/25 11:45: POC Glucose 210 H 03/05/25 14:10: Hep Bs Antigen Nonreactive, Hep Bs Antibody Nonreactive, Hepatitis C Antibody Nonreactive 03/05/25 16:33: POC Glucose 179 H 03/05/25 21:32: POC Glucose 224 H 03/06/25 06:24: WBC 4.3 L, RBC 2.48 L, Hgb 7.7 L, Hct 24.4 L, MCV 98.4, MCH 31.0, MCHC 31.6 L, RDW Std Deviation 51.4 H, RDW Coeff of Nicholas 14.2, Plt Count 145 L, MPV 10.9, Immature Gran % (Auto) 0.700, Neut % (Auto) 73.1 H, Lymph % (Auto) 18.2 L, [place] % (Auto) 6.2, Eos % (Auto) 1.6, Baso % (Auto) 0.2, Absolute Neuts (auto) 3.2, Absolute Lymphs (auto) 0.79 L, Nucleated RBC % 0, Sodium 138, Potassium 3.6, Chloride 109 H, Carbon Dioxide 20.7 L, Anion Gap 8, BUN 14, Creatinine 0.68 L, Estim Creat Clear Calc 53.79, Est GFR (MDRD) Non-Af 87, BUN/Creatinine Ratio 21.1 H, Glucose 180 H, Calcium 8.4 03/06/25 06:29: POC Glucose 164 H Micro: Microbiology 03/03/25 14:54 Sputum, Induced/Lukens Gram Stain - Final 03/03/25 14:54 Sputum, Induced/Lukens Respiratory Culture - Final ESBL Escherichia coli Meth. resistant Staph. aureus 03/03/25 14:48 Urine Catheter - Catheter Urine Culture - Final ESBL Escherichia coli 03/03/25 14:10 Blood Culture (Wb) - Venous Blood Culture - Final GNR lactose casing in line feeder 03/03/25 14:20 Blood Culture (Wb) - Venous Blood Culture - Final ESBL Escherichia coli 03/03/25 17:25 Mucosa - Nasopharyngeal Respiratory Panel (PCR) - Final 03/03/25 14:48 Mucosa - Nose SARS-CoV-2, Influenza & RSV (PCR) - Final Physical Exam Const alert Constitutional Narrative: flat affect, not answering any questions General Appearance: cooperative Orientation / Consciousness: confused HEENT normocephalic, head/scalp atraumatic, moist oral mucous membranes and oropharynxnormal Eyes EOMs intact bilaterally Neck supple and no JVD Lymph Lymphatic: no lymphedema noted Resp Resp Narrative: mildly diminished breath sounds bibasally, no wheezes or crackles. On room air. Cardio regular rate, regular rhythm, S1 normal heart sound, S2 normal heart sound and no murmurs GI normal to inspection, nondistended, normoactive bowel sounds, soft to palpation,non-tender and non-distended Extremity normal capillary refill and no clubbing, cyanosis or edema General Extremity: no tenderness to palpation of joints or extremities Skin General Skin Exam: no breakdown Neuro no focal motor deficits Neuro Narrative: flat affect Motor Exam: general weakness Psych Psych Narrative: flat affect, confused Mood & Affect: flat affect Assessment & Plan Assessment/Plan (1) Acute hypoxic respiratory failure: (2) Sepsis: (3) Hyperlipidemia: PLAN: Plan #Acute hypoxic respiratory failure due to probable aspiration pneumonia * Was intubated on admission due to hypoxia. Now extubated and down to room air today. * Respiratory panel negative. COVID, flu and RSV also negative. * Critical care on board. Titrate oxygen to maintain saturation above 90%. * Breathing treatments bronchodilators. * Abnormal chest CT was concerning for aspiration pneumonia. * Blood, sputum and urinary cultures all growing E. coli. Sputum cultures also growing MRSA. On IV vancomycin and Zosyn. * #Sepsis due to UTI and probable aspiration pneumonia * Was tachycardic and tachypneic on admission was also febrile with temperature up to 102.6. Lacticacid was elevated at 3.4 and WBC was 13.5. Bilirubin was elevated and she was also tachypneic * Urinalysis did show evidence of elevated nitrites and leukocyte esterase as well as elevated WBC but no bacteria. * Currently on broad-spectrum IV antibiotics. Blood and urine cultures as well as sputum cultures growing E. coli * ID consulted. Will likely see patient tomorrow. * #E. coli bacteremia: As above #Elevated troponins: * Likely due to demand ischemia. No chest pain. Stable. * Initial troponin was 54 but subsequently trended down to 25. This was likely due to her hypoxia. #Elevated liver enzymes, * total bilirubin today is down to 0.94. However AST and ALT have trended up slightly though ALP has trended down. Direct bilirubin is 0.7 which is slightly elevated. * CT abdomen and pelvis did not show any visualization of the gallbladder and showed no significantbiliary dilatation. * Will check hepatitis panel * # Pancytopenia: * Hemoglobin is 7.7 with WBC of 4.3 and platelets of 145. Platelets up from yesterday. * Hemoglobin has of dropped from 10.4 when she was admitted. * Will check stool for occult blood and check iron panel and ferritin. * Hold all blood thinners * #GERD: On PPI #Type 2 diabetes mellitus: On insulin sliding scale. Accu-Cheks ACHS. #Depression and anxiety: On Lexapro #Hypothyroidism: On Synthroid #DVT prophylaxis: Lovenox. Hold Lovenox in light of anemia. SCDs Charges/Coding Visit Charges Inpatient E&M: 64601 Subs Hosp L2 03/06/25 1523 Linda Marte MD Cosigner Signature (if applicable): CC: ~ Signed [facility]09-06-2025 Progress note Author [facility] Note Date/Time March 05, 2025 3:57pm [facility] Medical Records Department [address] [place] [address] Progress Note 03/05/25 1342 MR#: [id number] Acct: [id number] Name: STEVE VIEIRA Rep #:[id number] : 1945 79 From: Linda Marte MD PCP: Dr. Peter Ellis MD Status:AD M IN Location: ICU ICU05-1 Subjective Subjective Patient seen and examined. She had a sitter by her. SHe is quite confused and alert and oriented only to self. She kept asking if this was a real hospital and if it was a real doctor. Unable to do review of systems due to her confusion. She is down to 1 L of oxygen. Unable to do comprehensive review of systems due to her confusion. Objective Data Objective Data Vital Signs: Vital Signs Temp Pulse Resp BP Pulse Ox O2 Del Method O2 Flow Rate 99.9 F H 84 15 108/50 L 94 Nasal Cannula 1 03/05/25 08:00 03/05/25 13:00 03/05/25 13:00 03/05/25 13:00 03/05/25 13:00 03/05/25 13:00 03/05/25 13:00 FiO2 30 03/04/25 09:00 Oxygen Flow Rate (L/min) 1 Oxygen Delivery Method Nasal Cannula Weight: 188 lb 11.451 oz Body Mass Index (BMI) 38.0 Intake & Output: Intake and Output for Last 24 Hours 03/03/25 03/04/25 03/05/25 23:59 23:59 23:59 Intake Total 4453.08 / 4487.46 908.57 / 908.57 200 / 200 Output Total 450 / 450 500 / 850 970 / 970 Balance 4003.08 / 4037.46 408.57 / 58.57 -770 / -770 Lab / Micro Data 03/05/25 05:25 03/05/25 05:25 Labs: Laboratory Results - last 24 hr 03/04/25 13:15: POC Glucose 196 H 03/04/25 18:27: POC Glucose 207 H 03/05/25 00:02: POC Glucose 149 H 03/05/25 05:25: WBC 7.7, RBC 2.52 L, Hgb 7.7 L, Hct 24.7 L, MCV 98.0, MCH 30.6, MCHC 31.2 L, RDW Std Deviation 51.4 H, RDW Coeff of Nicholas 14.4, Plt Count 134 L, MPV 11.1, Immature Gran % (Auto) 0.500, Neut % (Auto) 80.4 H, Lymph % (Auto) 9.8L, [place] % (Auto) 8.3, Eos % (Auto) 0.9, Baso % (Auto) 0.1, Absolute Neuts (auto)6.2, Absolute Lymphs (auto) 0.75 L, Nucleated RBC % 0, Sodium 140, Potassium 3.5, Chloride 110 H, Carbon Dioxide 20.8 L, Anion Gap 9, BUN 18, Creatinine 0.89, Estim Creat Clear Calc 48.16 L, Est GFR (MDRD) Non-Af 65, BUN/Creatinine Ratio 20.7 H, Glucose 158 H, Calcium 8.0, Total Bilirubin 0.94, Direct Bilirubin0.71 H, AST 101 H, ALT 44 H, Alkaline Phosphatase 225 H, Total Protein 6.0, Albumin 2.6 L, Globulin 3.4 03/05/25 05:27: POC Glucose 141 H 03/05/25 11:45: POC Glucose 210 H Micro: Microbiology 03/03/25 14:20 Blood Culture (Wb) - Venous Blood Culture - Preliminary GNR lactose casing in line feeder 03/03/25 14:10 Blood Culture (Wb) - Venous Blood Culture - Preliminary GNR lactose casing in line feeder 03/03/25 14:54 Sputum, Induced/Lukens Gram Stain - Final 03/03/25 14:54 Sputum, Induced/Lukens Respiratory Culture - Preliminary Escherichia coli Staphylococcus aureus 03/03/25 14:48 Urine Catheter - Catheter Urine Culture - Preliminary Presumptive E. coli 03/03/25 17:25 Mucosa - Nasopharyngeal Respiratory Panel (PCR) - Final 03/03/25 14:48 Mucosa - Nose SARS-CoV-2, Influenza & RSV (PCR) - Final Physical Exam Const alert Constitutional Narrative: flat affect, not answering any questions Orientation / Consciousness: confused HEENT normocephalic, head/scalp atraumatic, moist oral mucous membranes and oropharynxnormal Eyes EOMs intact bilaterally Neck supple and no JVD Lymph Lymphatic: no lymphedema noted Resp Resp Narrative: mildly diminished breath sounds bibasally, no wheezes or crackles. On 1L of oxygen. Cardio regular rate, regular rhythm, S1 normal heart sound, S2 normal heart sound and no murmurs GI normal to inspection, nondistended, normoactive bowel sounds, soft to palpation,non-tender and non-distended Extremity normal capillary refill and no clubbing, cyanosis or edema General Extremity: no tenderness to palpation of joints or extremities Skin General Skin Exam: no breakdown Neuro no focal motor deficits Neuro Narrative: flat affect Motor Exam: general weakness Psych Psych Narrative: flat affect, confused Mood & Affect: flat affect Assessment & Plan Assessment/Plan (1) Acute hypoxic respiratory failure: (2) Sepsis: (3) Hyperlipidemia: PLAN: Plan #Acute hypoxic respiratory failure due to probable aspiration pneumonia * Was intubated on admission due to hypoxia. Now extubated and on 1 L of oxygen today. * Respiratory panel negative. COVID, flu and RSV also negative. * Critical care on board. Titrate oxygen to maintain saturation above 90%. * Breathing treatments bronchodilators. * Abnormal chest CT was concerning for aspiration pneumonia. * Blood, sputum and urinary cultures all growing E. coli * #Sepsis due to UTI and probable aspiration pneumonia * Was tachycardic and tachypneic on admission was also febrile with temperature up to 102.6. Lactic acid was elevated at 3.4 and WBC was 13.5. Bilirubin was elevated and she was also tachypneic * Urinalysis did show evidence of elevated nitrites and leukocyte esterase as well as elevated WBC but no bacteria. * Currently on broad-spectrum IV antibiotics. Blood and urine cultures as well as sputum cultures growing E. coli * will consult ID * #Elevated troponins: Likely due to demand ischemia. No chest pain. Stable. Initial troponin was 54 but subsequently trended up to 25. This was likely due to her hypoxia. #Elevated liver enzymes, * total bilirubin today is down to 0.94. However AST and ALT have trended up slightly though ALP has trended down. Direct bilirubin is 0.7 which is slightly elevated. * CT abdomen and pelvis did not show any visualization of the gallbladder and showed no significant biliary dilatation. * Will check hepatitis panel * #GERD: On PPI #Type 2 diabetes mellitus: On insulin sliding scale. Accu-Cheks ACHS. #Depression and anxiety: On Lexapro #Hypothyroidism: On Synthroid #DVT prophylaxis: Lovenox. Charges/Coding Visit Charges Inpatient E&M: 95217 Subs Hosp L2 03/05/25 9803 <Electronically signed by Linda Marte MD> Linda Marte MD Cosigner Signature (if applicable): CC: ~ Signed [facility] Work Phone: 1(493) 422-445409-06-2025 Progress note Author Terry Flores [facility] Note Date/Time March 05, 2025 3:06pm [facility] Medical Records Department [address] [place] [address] Progress Note - Support Services Coordinator 03/05/25 1501 MR#: [id number] Acct: [id number] Name: STEVE VIEIRA Rep #:[id number] : 1945 79 From: Terry Hartman PCP: Dr. Peter Ellis MD Status:AD M IN Location: ICU ICU- Objective Data Objective Data Vital Signs: Vital Signs Last response 3 Temperature 37.7 C H 03/05/25 08:00 Temperature Source Core 03/05/25 08:00 Pulse Rate 84 03/05/25 13:00 Pulse Strength Normal (2+) 03/04/25 10:00 Respiratory Rate 15 03/05/25 13:00 Respiratory Effort Normal, Non-Labored 03/05/25 03:54 Respiratory Depth Normal 03/05/25 03:54 Respiratory Pattern Normal 03/05/25 03:54 Blood Pressure 108/50 L 03/05/25 13:00 Blood Pressure Mean 69 03/05/25 13:00 Blood Pressure Source Monitor 03/05/25 13:00 Blood Pressure Position Semi-Fowlers 03/05/25 13:00 Blood Pressure Location Right Arm 03/05/25 13:00 Pulse Ox 94 03/05/25 14:55 Oxygen Delivery Method Nasal Cannula 03/05/25 14:55 Oxygen Flow Rate (L/min) 1 03/05/25 14:55 Fraction of Inspired Oxygen (FIO2) 30 03/04/25 09:00 I&O: I&O Last 24 Hours 3 03/04/25 03/05/25 03/05/25 23:59 11:59 23:59 Intake Total 665 / 908.57 200 / 200 Output Total 350 / 850 970 / 970 Balance 315 / 58.57 -770 / -770 I&O: Total Stay 3 03/03/25 14:09 thru 03/05/25 10:03 Intake Total 5561.65 Output Total 1920 Balance 3641.65 Current Meds Ordered / Administered: Current meds ordered / Administered 3 Generic Name Dose Route Start Last Admin Trade Name Freq PRN Reason Stop Dose Admin Acetaminophen 650 mg 03/03/25 21:35 03/04/25 02:22 Acetaminophen 650 Mg/20 Ml Udc GT 650 mg Q4H PRN PRN Administration Pain 1-10 or Fever Albuterol Sulfate 2.5 mg 03/03/25 16:59 Albuterol 2.5 Mg/3 Ml Vial.Neb. INHALATION Q2H PRN PRN SOB &/OR WHEEZING Atorvastatin Calcium 40 mg 03/03/25 22:00 03/04/25 21:47 Atorvastatin Calcium 40 Mg Tablet PO Not Given QHS SUDHIR Enoxaparin Sodium 40 mg 03/04/25 10:00 03/05/25 08:13 Enoxaparin 40 Mg/0.4 Ml Syringe SC 40 mg DAILY SUDHIR Administration Glucagon 1 mg 03/03/25 16:59 Glucagon 1 Mg/Ml Syringe IM X1 PRN HYPOGLYCEMIA Protocol Dextrose 250 mls @ 0 mls/hr 03/03/25 16:59 Dextrose 10%-Water IV .Q0M PRN HYPOGLYCEMIA Protocol As Directed Pantoprazole Sodium 40 mg/ 100 mls @ 300 mls/hr 03/04/25 10:00 03/05/25 10:03 Sodium Chloride IV Infused Q24 SUDHIR Infusion Piperacillin Sod/Tazobactam 50 mls @ 12.5 mls/hr 03/03/25 22:00 03/05/25 13:10 Sod 3.375 gm/ Sodium Chloride IV 12.5 mls/hr Q8 SUDHIR Administration Vancomycin IV-PHARMACY TO DOSE 500 mls @ 250 mls/hr 03/03/25 16:59 1 each/ Sodium Chloride IV X1 PRN Rx to Dose Protocol Sodium Chloride 250 mls @ 15 mls/hr 03/03/25 17:01 IV .[id number] PRN Saline Flush Sodium Chloride 250 mls @ 15 mls/hr 03/03/25 17:01 IV .[id number] PRN Additional IVPB Infusion Vancomycin HCl 1,250 mg/ 275 mls @ 167 mls/hr 03/04/25 18:00 03/04/25 20:11 Sodium Chloride IV Infused Q24H SUDHIR Infusion Insulin Human Lispro 0 unit 03/03/25 18:00 03/05/25 11:46 Insulin Lispro 100 Unit/Ml Insuln.Pen SC 2 u Q6 SUDHIR Administration Protocol Levothyroxine Sodium 50 mcg 03/05/25 06:00 03/05/25 05:30 Levothyroxine 50 Mcg Tablet PO Not Given [id number]@0600 SUDHIR Levothyroxine Sodium 75 mcg 03/04/25 06:00 03/04/25 05:07 Levothyroxine 75 Mcg Tablet PO 75 mcg MoWeFr@0600 [facility] Administration Ondansetron HCl 4 mg 03/03/25 16:59 Ondansetron 4 Mg/2 Ml Vial IV Q8H PRN PRN NAUSEA/VOMITING Senna/Docusate Sodium 2 tablet 03/03/25 16:59 Senna/Docusate Sodium 1 Tablet PO BID PRN PRN Constipation Sodium Chloride 10 - 40 ml 03/03/25 17:01 0.9% Saline Lock 10 Ml Syringe IV UD PRN SALINE FLUSH Vancomycin Protocol 1 lab 03/06/25 16:30 Vancomycin Trough/Random Due MC 03/06/25 18:30 DAILY [facility] Lab / Micro Data 03/05/25 05:25 03/05/25 05:25 Labs: Laboratory Results - last 24 hr 03/04/25 18:27: POC Glucose 207 H 03/05/25 00:02: POC Glucose 149 H 03/05/25 05:25: WBC 7.7, RBC 2.52 L, Hgb 7.7 L, Hct 24.7 L, MCV 98.0, MCH 30.6, MCHC 31.2 L, RDW Std Deviation 51.4 H, RDW Coeff of Nicholas 14.4, Plt Count 134 L, MPV 11.1, Immature Gran % (Auto) 0.500, Neut % (Auto) 80.4 H, Lymph % (Auto) 9.8L, [place] % (Auto) 8.3, Eos % (Auto) 0.9, Baso % (Auto) 0.1, Absolute Neuts (auto)6.2, Absolute Lymphs (auto) 0.75 L, Nucleated RBC % 0, Sodium 140, Potassium 3.5, Chloride 110 H, Carbon Dioxide 20.8 L, Anion Gap 9, BUN 18, Creatinine 0.89, Estim Creat Clear Calc 48.16 L, Est GFR (MDRD) Non-Af 65, BUN/Creatinine Ratio 20.7 H, Glucose 158 H, Calcium 8.0, Total Bilirubin 0.94, Direct Bilirubin0.71 H, AST 101 H, ALT 44 H, Alkaline Phosphatase 225 H, Total Protein 6.0, Albumin 2.6 L, Globulin 3.4 03/05/25 05:27: POC Glucose 141 H 03/05/25 11:45: POC Glucose 210 H 03/05/25 14:10: Hep Bs Antibody Nonreactive Micro: Microbiology 03/03/25 14:20 Blood Culture (Wb) - Venous Blood Culture - Preliminary GNR lactose casing in line feeder 03/03/25 14:10 Blood Culture (Wb) - Venous Blood Culture - Preliminary GNR lactose casing in line feeder 03/03/25 14:54 Sputum, Induced/Lukens Gram Stain - Final 03/03/25 14:54 Sputum, Induced/Lukens Respiratory Culture - Preliminary Escherichia coli Staphylococcus aureus 03/03/25 14:48 Urine Catheter - Catheter Urine Culture - Preliminary Presumptive E. coli Assessment and Plan . Assessment and plan: HPI Patient seen and examined. Chart and data reviewed. She is awake and alert, NAD Breathing RA comfortably HD stable UCX and BCX reveal GNR - ESBL-producing EXAM GEN NAD VS as above HEENT o/p clear NECK obese COR RRR CHEST CTA ABD soft EXT minimal edema SKIN w/d NACOH NF IMP 1. Acute respiratory failure - resolved - extubated 03/04 2. Sepsis syndrome 3. 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 ATX RLL 6. h/o esophageal stricture REC -consider changing to carbapenem -VTE ppx -mobilize as able OK to leave ICU - we are available as needed The entirety of this encounter was done via Telemedicine 03/05/25 1506 <Electronically signed by Terry Flores MD> Cosigner Signature (if applicable): CC: ~ Signed [facility] Work Phone: 1(521) 839-246009-06-2025 Progress note [facility] Medical Records Department [address] [place] [address] Progress Note 03/05/25 1342 MR#: [id number] Acct: [id number] Name: STEVE VIEIRA Rep #:[id number] : 1945 79 From: Linda Marte MD PCP: Dr. Peter Ellis MD Status:AD M IN Location: ICU ICU05-1 Subjective Subjective Patient seen and examined. She had a sitter by her. SHe is quite confused and alert and oriented only to self. She kept asking if this was a real hospital and if it was a real doctor. Unable to do review of systems due to her confusion. She is down to 1 L of oxygen. Unable to do comprehensive review of systems due to her confusion. Objective Data Objective Data Vital Signs: Vital Signs Temp Pulse Resp BP Pulse Ox O2 Del Method O2 Flow Rate 99.9 F H 84 15 108/50 L 94 Nasal Cannula 1 03/05/25 08:00 03/05/25 13:00 03/05/25 13:00 03/05/25 13:00 03/05/25 13:00 03/05/25 13:00 03/05/25 13:00 FiO2 30 03/04/25 09:00 Oxygen Flow Rate (L/min) 1 Oxygen Delivery Method Nasal Cannula Weight: 188 lb 11.451 oz Body Mass Index (BMI) 38.0 Intake & Output: Intake and Output for Last 24 Hours 03/03/25 03/04/25 03/05/25 23:59 23:59 23:59 Intake Total 4453.08 / 4487.46 908.57 / 908.57 200 / 200 Output Total 450 / 450 500 / 850 970 / 970 Balance 4003.08 / 4037.46 408.57 / 58.57 -770 / -770 Lab / Micro Data 03/05/25 05:25 03/05/25 05:25 Labs: Laboratory Results - last 24 hr 03/04/25 13:15: POC Glucose 196 H 03/04/25 18:27: POC Glucose 207 H 03/05/25 00:02: POC Glucose 149 H 03/05/25 05:25: WBC 7.7, RBC 2.52 L, Hgb 7.7 L, Hct 24.7 L, MCV 98.0, MCH 30.6, MCHC 31.2 L, RDW Std Deviation 51.4 H, RDW Coeff of Nicholas 14.4, Plt Count 134 L, MPV 11.1, Immature Gran % (Auto) 0.500, Neut % (Auto) 80.4 H, Lymph % (Auto) 9.8L, [place] % (Auto) 8.3, Eos % (Auto) 0.9, Baso % (Auto) 0.1, Absolute Neuts (auto)6.2, Absolute Lymphs (auto) 0.75 L, Nucleated RBC % 0, Sodium 140, Potassium 3.5, Chloride 110 H, Carbon Dioxide 20.8 L, Anion Gap 9, BUN 18, Creatinine 0.89, Estim Creat Clear Calc 48.16 L, Est GFR (MDRD) Non-Af 65, BUN/Creatinine Ratio 20.7 H, Glucose 158 H, Calcium 8.0, Total Bilirubin 0.94, Direct Bilirubin0.71 H, AST 101 H, ALT 44 H, Alkaline Phosphatase 225 H, Total Protein 6.0, Albumin 2.6 L, Globulin 3.4 03/05/25 05:27: POC Glucose 141 H 03/05/25 11:45: POC Glucose 210 H Micro: Microbiology 03/03/25 14:20 Blood Culture (Wb) - Venous Blood Culture - Preliminary GNR lactose casing in line feeder 03/03/25 14:10 Blood Culture (Wb) - Venous Blood Culture - Preliminary GNR lactose casing in line feeder 03/03/25 14:54 Sputum, Induced/Lukens Gram Stain - Final 03/03/25 14:54 Sputum, Induced/Lukens Respiratory Culture - Preliminary Escherichia coli Staphylococcus aureus 03/03/25 14:48 Urine Catheter - Catheter Urine Culture - Preliminary Presumptive E. coli 03/03/25 17:25 Mucosa - Nasopharyngeal Respiratory Panel (PCR) - Final 03/03/25 14:48 Mucosa - Nose SARS-CoV-2, Influenza & RSV (PCR) - Final Physical Exam Const alert Constitutional Narrative: flat affect, not answering any questions Orientation / Consciousness: confused HEENT normocephalic, head/scalp atraumatic, moist oral mucous membranes and oropharynxnormal Eyes EOMs intact bilaterally Neck supple and no JVD Lymph Lymphatic: no lymphedema noted Resp Resp Narrative: mildly diminished breath sounds bibasally, no wheezes or crackles. On 1L of oxygen. Cardio regular rate, regular rhythm, S1 normal heart sound, S2 normal heart sound and no murmurs GI normal to inspection, nondistended, normoactive bowel sounds, soft to palpation,non-tender and non-distended Extremity normal capillary refill and no clubbing, cyanosis or edema General Extremity: no tenderness to palpation of joints or extremities Skin General Skin Exam: no breakdown Neuro no focal motor deficits Neuro Narrative: flat affect Motor Exam: general weakness Psych Psych Narrative: flat affect, confused Mood & Affect: flat affect Assessment & Plan Assessment/Plan (1) Acute hypoxic respiratory failure: (2) Sepsis: (3) Hyperlipidemia: PLAN: Plan #Acute hypoxic respiratory failure due to probable aspiration pneumonia * Was intubated on admission due to hypoxia. Now extubated and on 1 L of oxygen today. * Respiratory panel negative. COVID, flu and RSV also negative. * Critical care on board. Titrate oxygen to maintain saturation above 90%. * Breathing treatments bronchodilators. * Abnormal chest CT was concerning for aspiration pneumonia. * Blood, sputum and urinary cultures all growing E. coli * #Sepsis due to UTI and probable aspiration pneumonia * Was tachycardic and tachypneic on admission was also febrile with temperature up to 102.6. Lacticacid was elevated at 3.4 and WBC was 13.5. Bilirubin was elevated and she was also tachypneic * Urinalysis did show evidence of elevated nitrites and leukocyte esterase as well as elevated WBC but no bacteria. * Currently on broad-spectrum IV antibiotics. Blood and urine cultures as well as sputum cultures growing E. coli * will consult ID * #Elevated troponins: Likely due to demand ischemia. No chest pain. Stable. Initial troponin was 54 but subsequently trended up to 25. This was likely due to her hypoxia. #Elevated liver enzymes, * total bilirubin today is down to 0.94. However AST and ALT have trended up slightly though ALP has trended down. Direct bilirubin is 0.7 which is slightly elevated. * CT abdomen and pelvis did not show any visualization of the gallbladder and showed no significantbiliary dilatation. * Will check hepatitis panel * #GERD: On PPI #Type 2 diabetes mellitus: On insulin sliding scale. Accu-Cheks ACHS. #Depression and anxiety: On Lexapro #Hypothyroidism: On Synthroid #DVT prophylaxis: Lovenox. Charges/Coding Visit Charges Inpatient E&M: 39750 Subs Hosp L2 03/05/25 7942 Linda Marte MD Cosigner Signature (if applicable): CC: ~ Signed [facility]09-06-2025 Progress note [facility] Medical Records Department [address] [place] [address] Progress Note - Support Services Coordinator 03/05/25 1501 MR#: [id number] Acct: [id number] Name: STEVE VIEIRA Rep #:[id number] : 1945 79 From: Terry Hartman PCP: Dr. Peter Ellis MD Status:AD M IN Location: ICU ICU05-1 Objective Data Objective Data Vital Signs: Vital Signs Last response 3 Temperature 37.7 C H 03/05/25 08:00 Temperature Source Core 03/05/25 08:00 Pulse Rate 84 03/05/25 13:00 Pulse Strength Normal (2+) 03/04/25 10:00 Respiratory Rate 15 03/05/25 13:00 Respiratory Effort Normal, Non-Labored 03/05/25 03:54 Respiratory Depth Normal 03/05/25 03:54 Respiratory Pattern Normal 03/05/25 03:54 Blood Pressure 108/50 L 03/05/25 13:00 Blood Pressure Mean 69 03/05/25 13:00 Blood Pressure Source Monitor 03/05/25 13:00 Blood Pressure Position Semi-Fowlers 03/05/25 13:00 Blood Pressure Location Right Arm 03/05/25 13:00 Pulse Ox 94 03/05/25 14:55 Oxygen Delivery Method Nasal Cannula 03/05/25 14:55 Oxygen Flow Rate (L/min) 1 03/05/25 14:55 Fraction of Inspired Oxygen (FIO2) 30 03/04/25 09:00 I&O: I&O Last 24 Hours 3 03/04/25 03/05/25 03/05/25 23:59 11:59 23:59 Intake Total 665 / 908.57 200 / 200 Output Total 350 / 850 970 / 970 Balance 315 / 58.57 -770 / -770 I&O: Total Stay 3 03/03/25 14:09 thru 03/05/25 10:03 Intake Total 5561.65 Output Total 1920 Balance 3641.65 Current Meds Ordered / Administered: Current meds ordered / Administered 3 Generic Name Dose Route Start Last Admin Trade Name Freq PRN Reason Stop Dose Admin Acetaminophen 650 mg 03/03/25 21:35 03/04/25 02:22 Acetaminophen 650 Mg/20 Ml Udc GT 650 mg Q4H PRN PRN Administration Pain 1-10 or Fever Albuterol Sulfate 2.5 mg 03/03/25 16:59 Albuterol 2.5 Mg/3 Ml Vial.Neb. INHALATION Q2H PRN PRN SOB &/OR WHEEZING Atorvastatin Calcium 40 mg 03/03/25 22:00 03/04/25 21:47 Atorvastatin Calcium 40 Mg Tablet PO Not Given QHS SUDHIR Enoxaparin Sodium 40 mg 03/04/25 10:00 03/05/25 08:13 Enoxaparin 40 Mg/0.4 Ml Syringe SC 40 mg DAILY SUDHIR Administration Glucagon 1 mg 03/03/25 16:59 Glucagon 1 Mg/Ml Syringe IM X1 PRN HYPOGLYCEMIA Protocol Dextrose 250 mls @ 0 mls/hr 03/03/25 16:59 Dextrose 10%-Water IV .Q0M PRN HYPOGLYCEMIA Protocol As Directed Pantoprazole Sodium 40 mg/ 100 mls @ 300 mls/hr 03/04/25 10:00 03/05/25 10:03 Sodium Chloride IV Infused Q24 SUDHIR Infusion Piperacillin Sod/Tazobactam 50 mls @ 12.5 mls/hr 03/03/25 22:00 03/05/25 13:10 Sod 3.375 gm/ Sodium Chloride IV 12.5 mls/hr Q8 SUDHIR Administration Vancomycin IV-PHARMACY TO DOSE 500 mls @ 250 mls/hr 03/03/25 16:59 1 each/ Sodium Chloride IV X1 PRN Rx to Dose Protocol Sodium Chloride 250 mls @ 15 mls/hr 03/03/25 17:01 IV .[id number] PRN Saline Flush Sodium Chloride 250 mls @ 15 mls/hr 03/03/25 17:01 IV .[id number] PRN Additional IVPB Infusion Vancomycin HCl 1,250 mg/ 275 mls @ 167 mls/hr 03/04/25 18:00 03/04/25 20:11 Sodium Chloride IV Infused Q24H SUDHIR Infusion Insulin Human Lispro 0 unit 03/03/25 18:00 03/05/25 11:46 Insulin Lispro 100 Unit/Ml Insuln.Pen SC 2 u Q6 SUDHIR Administration Protocol Levothyroxine Sodium 50 mcg 03/05/25 06:00 03/05/25 05:30 Levothyroxine 50 Mcg Tablet PO Not Given SuTuThSa@0600 [facility] Levothyroxine Sodium 75 mcg 03/04/25 06:00 03/04/25 05:07 Levothyroxine 75 Mcg Tablet PO 75 mcg MoWeFr@0600 SUDHIR Administration Ondansetron HCl 4 mg 03/03/25 16:59 Ondansetron 4 Mg/2 Ml Vial IV Q8H PRN PRN NAUSEA/VOMITING Senna/Docusate Sodium 2 tablet 03/03/25 16:59 Senna/Docusate Sodium 1 Tablet PO BID PRN PRN Constipation Sodium Chloride 10 - 40 ml 03/03/25 17:01 0.9% Saline Lock 10 Ml Syringe IV UD PRN SALINE FLUSH Vancomycin Protocol 1 lab 03/06/25 16:30 Vancomycin Trough/Random Due MC 03/06/25 18:30 DAILY [facility] Lab / Micro Data 03/05/25 05:25 03/05/25 05:25 Labs: Laboratory Results - last 24 hr 03/04/25 18:27: POC Glucose 207 H 03/05/25 00:02: POC Glucose 149 H 03/05/25 05:25: WBC 7.7, RBC 2.52 L, Hgb 7.7 L, Hct 24.7 L, MCV 98.0, MCH 30.6, MCHC 31.2 L, RDW Std Deviation 51.4 H, RDW Coeff of Nicholas 14.4, Plt Count 134 L, MPV 11.1, Immature Gran % (Auto) 0.500, Neut % (Auto) 80.4 H, Lymph % (Auto) 9.8L, [place] % (Auto) 8.3, Eos % (Auto) 0.9, Baso % (Auto) 0.1, Absolute Neuts (auto)6.2, Absolute Lymphs (auto) 0.75 L, Nucleated RBC % 0, Sodium 140, Potassium 3.5, Chloride 110 H, Carbon Dioxide 20.8 L, Anion Gap 9, BUN 18, Creatinine 0.89, Estim Creat Clear Calc 48.16 L, Est GFR (MDRD) Non-Af 65, BUN/Creatinine Ratio 20.7 H, Glucose 158 H, Calcium 8.0, Total Bilirubin 0.94, Direct Bilirubin0.71 H, AST 101 H, ALT 44 H, Alkaline Phosphatase 225 H, Total Protein 6.0, Albumin 2.6 L, Globulin 3.4 03/05/25 05:27: POC Glucose 141 H 03/05/25 11:45: POC Glucose 210 H 03/05/25 14:10: Hep Bs Antibody Nonreactive Micro: Microbiology 03/03/25 14:20 Blood Culture (Wb) - Venous Blood Culture - Preliminary GNR lactose casing in line feeder 03/03/25 14:10 Blood Culture (Wb) - Venous Blood Culture - Preliminary GNR lactose casing in line feeder 03/03/25 14:54 Sputum, Induced/Lukens Gram Stain - Final 03/03/25 14:54 Sputum, Induced/Lukens Respiratory Culture - Preliminary Escherichia coli Staphylococcus aureus 03/03/25 14:48 Urine Catheter - Catheter Urine Culture - Preliminary Presumptive E. coli Assessment and Plan . Assessment and plan: HPI Patient seen and examined. Chart and data reviewed. She is awake and alert, NAD Breathing RA comfortably HD stable UCX and BCX reveal GNR - ESBL-producing EXAM GEN NAD VS as above HEENT o/p clear NECK obese COR RRR CHEST CTA ABD soft EXT minimal edema SKIN w/d NACHO NF IMP 1. Acute respiratory failure - resolved - extubated 03/04 2. Sepsis syndrome 3. 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 ATX RLL 6. h/o esophageal stricture REC -consider changing to carbapenem -VTE ppx -mobilize as able OK to leave ICU - we are available as needed The entirety of this encounter was done via Telemedicine 03/05/25 1506 Cosigner Signature (if applicable): CC: ~ Signed [facility]09-05-2025 Progress [facility] Note Date/Time March 04, 2025 4:50pm [facility] Medical Records Department [address] [place] [address] Progress Note 03/04/25 1636 MR#: [id number] Acct: [id number] Name: STEVE VIEIRA Rep #:[id number] : 1945 79 From: Linda Marte MD PCP: Dr. Peter Ellis MD Status:AD M IN Location: ICU ICU05-1 Subjective Subjective Patient seen and examined. She was admitted with a complaint of shortness of breath and found to be hypoxic. He was also found to have UTI. There was concern for aspiration pneumonia. Patient was emergently intubated on admission. This morning she was extubated. At time of my review patient was extubated on room air. Her respirations, and not really answering any questions. Unable to do review of systems as patient was just looked at me and not answer any questions. She has remained hemodynamically stable. Objective Data Objective Data Vital Signs: Vital Signs Temp Pulse Resp BP Pulse Ox O2 Del Method O2 Flow Rate 98.1 F 90 20 H 92/67 93 Room Air 2 03/04/25 10:00 03/04/25 15:00 03/04/25 15:00 03/04/25 15:00 03/04/25 15:58 03/04/25 15:58 03/04/25 14:10 FiO2 30 03/04/25 09:00 Oxygen Flow Rate (L/min) 2 Oxygen Delivery Method Room Air Weight: 187 lb 9.814 oz Body Mass Index (BMI) 37.8 Intake & Output: Intake and Output for Last 24 Hours 03/02/25 03/03/25 03/04/25 23:59 23:59 23:59 Intake Total 4453.08 / 4487.46 583.57 / 583.57 Output Total 450 / 450 350 / 350 Balance 4003.08 / 4037.46 233.57 / 233.57 Lab / Micro Data 03/04/25 04:00 03/04/25 04:00 Labs: Laboratory Results - last 24 hr 03/03/25 14:20: Total Creatine Kinase 48, Triglycerides 119 03/03/25 17:25: Troponin T Hi Sens 2 Hr 25 H 03/03/25 17:41: POC Glucose 134 H 03/03/25 19:30: Troponin T Hi Sens 4Hr 54 H* 03/03/25 23:07: POC Glucose 183 H 03/04/25 04:00: WBC 20.0 H, RBC 2.90 L, Hgb 9.0 L, Hct 28.8 L, MCV 99.3 H, MCH 31.0, MCHC 31.3 L, RDW Std Deviation 52.9 H, RDW Coeff of Nicholas 14.5, Plt Count 169, MPV 11.1, Immature Gran % (Auto) 1.000 H, Neut % (Auto) 91.9 H, Lymph % (Auto) 1.8 L, [place] % (Auto) 5.2, Eos % (Auto) 0.0, Baso % (Auto) 0.1, Absolute Neuts (auto) 18.4 H, Absolute Lymphs (auto) 0.37 L, Nucleated RBC % 0, PT 18.4 H, INR 1.5, Sodium 137, Potassium 3.8, Chloride 107, Carbon Dioxide 18.7 L, AnionGap 11, BUN 21 H, Creatinine 1.16, Estim Creat Clear Calc 36.55 L, Est GFR (MDRD) Non-Af 47 L, BUN/Creatinine Ratio 17.8, Glucose 175 H, Calcium 7.9, TotalBilirubin 1.94 H, AST 76 H, ALT 37 H, Alkaline Phosphatase 291 H, Total Protein 6.5, Albumin 2.7 L, Globulin 3.7, Albumin/Globulin Ratio 0.7 L, TSH 1.770 03/04/25 05:17: POC Glucose 171 H 03/04/25 13:15: POC Glucose 196 H Micro: Microbiology 03/03/25 14:54 Sputum, Induced/Lukens Gram Stain - Final 03/03/25 14:54 Sputum, Induced/Lukens Respiratory Culture - Preliminary GNR lactose casing in line feeder 03/03/25 14:48 Urine Catheter - Catheter Urine Culture - Preliminary Presumptive E. coli 03/03/25 14:20 Blood Culture (Wb) - Venous Blood Culture - Preliminary 03/03/25 14:10 Blood Culture (Wb) - Venous Blood Culture - Preliminary 03/03/25 17:25 Mucosa - Nasopharyngeal Respiratory Panel (PCR) - Final 03/03/25 14:48 Mucosa - Nose SARS-CoV-2, Influenza & RSV (PCR) - Final Radiography Diagnostic Testing: Radiology Impression Abdomen/Pelvis CT 03/03/25 15:45 IMPRESSION: Clinical correlation for mild UTI and/or cystitis. Genitourinary findings discussed above in detail. - Pulmonary parenchymal opacities to be correlated for aspiration/pneumonia as discussed above. - Nonspecific gastrointestinal findings. - Other incidental and nonemergent findings discussed above. Reading Location: [id number] Physical Exam Const alert Constitutional Narrative: flat affect, not answering any questions General Appearance: cooperative HEENT normocephalic, head/scalp atraumatic, moist oral mucous membranes and oropharynxnormal Eyes EOMs intact bilaterally Neck supple and no JVD Lymph Lymphatic: no lymphedema noted Resp Resp Narrative: mildly diminished breath sounds bibasally, no wheezes or crackles. On 2L of oxygen. Cardio regular rate, regular rhythm, S1 normal heart sound, S2 normal heart sound and no murmurs GI normal to inspection, nondistended, normoactive bowel sounds, soft to palpation,non-tender and non-distended Extremity normal capillary refill and no clubbing, cyanosis or edema General Extremity: no tenderness to palpation of joints or extremities Skin General Skin Exam: no breakdown Neuro no focal motor deficits Neuro Narrative: flat affect Motor Exam: general weakness Psych Psych Narrative: flat affect, not responding to any questions Mood & Affect: flat affect Assessment & Plan Assessment/Plan (1) Acute hypoxic respiratory failure: (2) Sepsis: (3) Hyperlipidemia: PLAN: Plan #Acute hypoxic respiratory failure due to probable aspiration pneumonia * Was intubated on admission due to hypoxia. Now extubated and on room air. * Respiratory panel negative. COVID, flu and RSV also negative. * Cultures pending. Critical care on board. Titrate oxygen to maintain saturation above 90%. * Breathing treatments bronchodilators. * Abnormal chest CT was concerning for aspiration pneumonia. * #Sepsis due to UTI and probable aspiration pneumonia * Was tachycardic and tachypneic on admission was also febrile with temperature up to 102.6. Lactic acid was elevated at 3.4 and WBC was 13.5. Bilirubin was elevated and she was also tachypneic * Urinalysis did show evidence of elevated nitrites and leukocyte esterase as well as elevated WBC but no bacteria. * Currently on broad-spectrum IV antibiotics. Blood and urine cultures pending. * Patient was hydrated with IV fluids and responded. Critical care on board. #Elevated troponins: Likely due to demand ischemia. No chest pain. #Elevated liver enzymes, * total bilirubin is trended down to 1.94. AST and ALT are mildly elevated and ALP is elevated at 291. * CT abdomen and pelvis did not show any visualization of the gallbladder and showed no significant biliary dilatation. * will monitor for now. * #GERD: On PPI #Type 2 diabetes mellitus: On insulin sliding scale. Accu-Cheks ACHS. #Depression and anxiety: On Lexapro #Hypothyroidism: On Synthroid #DVT prophylaxis: Lovenox. Charges/Coding Visit Charges Inpatient E&M: 04374 Subs Hosp L3 03/04/25 1650 <Electronically signed by Linda Marte MD> Linda Marte MD Cosigner Signature (if applicable): CC: ~ Signed [facility] Work Phone: [phone]) 880-775709-05-2025 Progress note [facility] Medical Records Department [address] [place] [address] Progress Note 03/04/25 1636 MR#: [id number] Acct: [id number] Name: STEVE VIEIRA Rep #:[id number] : 1945 79 From: Linda Marte MD PCP: Dr. Peter Ellis MD Status:AD M IN Location: ICU ICU05-1 Subjective Subjective Patient seen and examined. She was admitted with a complaint of shortness of breath and found to behypoxic. He was also found to have UTI. There was concern for aspiration pneumonia. Patient was emergently intubated on admission. This morning she was extubated. At time of my review patient was extubated on room air. Her respirations, and not really answering any questions. Unable to do review ofsystems as patient was just looked at me and not answer any questions. She has remained hemodynamically stable. Objective Data Objective Data Vital Signs: Vital Signs Temp Pulse Resp BP Pulse Ox O2 Del Method O2 Flow Rate 98.1 F 90 20 H 92/67 93 Room Air 2 03/04/25 10:00 03/04/25 15:00 03/04/25 15:00 03/04/25 15:00 03/04/25 15:58 03/04/25 15:58 03/04/25 14:10 FiO2 30 03/04/25 09:00 Oxygen Flow Rate (L/min) 2 Oxygen Delivery Method Room Air Weight: 187 lb 9.814 oz Body Mass Index (BMI) 37.8 Intake & Output: Intake and Output for Last 24 Hours 03/02/25 03/03/25 03/04/25 23:59 23:59 23:59 Intake Total 4453.08 / 4487.46 583.57 / 583.57 Output Total 450 / 450 350 / 350 Balance 4003.08 / 4037.46 233.57 / 233.57 Lab / Micro Data 03/04/25 04:00 03/04/25 04:00 Labs: Laboratory Results - last 24 hr 03/03/25 14:20: Total Creatine Kinase 48, Triglycerides 119 03/03/25 17:25: Troponin T Hi Sens 2 Hr 25 H 03/03/25 17:41: POC Glucose 134 H 03/03/25 19:30: Troponin T Hi Sens 4Hr 54 H* 03/03/25 23:07: POC Glucose 183 H 03/04/25 04:00: WBC 20.0 H, RBC 2.90 L, Hgb 9.0 L, Hct 28.8 L, MCV 99.3 H, MCH 31.0, MCHC 31.3 L, RDW Std Deviation 52.9 H, RDW Coeff of Nicholas 14.5, Plt Count 169, MPV 11.1, Immature Gran % (Auto) 1.000 H, Neut % (Auto) 91.9 H, Lymph % (Auto) 1.8 L, [place] % (Auto) 5.2, Eos % (Auto) 0.0, Baso % (Auto) 0.1, Absolute Neuts (auto) 18.4 H, Absolute Lymphs (auto) 0.37 L, Nucleated RBC % 0, PT 18.4 H, INR 1.5, Sodium 137, Potassium 3.8, Chloride 107, Carbon Dioxide 18.7 L, AnionGap 11, BUN 21 H, Creatinine 1.16, Estim Creat Clear Calc 36.55 L, Est GFR (MDRD) Non-Af 47 L, BUN/Creatinine Ratio 17.8, Glucose 175 H, Calcium 7.9, TotalBilirubin 1.94 H, AST 76 H, ALT 37 H, Alkaline Phosphatase 291 H, Total Protein 6.5, Albumin 2.7 L, Globulin 3.7, Albumin/Globulin Ratio 0.7 L, TSH 1.770 03/04/25 05:17: POC Glucose 171 H 03/04/25 13:15: POC Glucose 196 H Micro: Microbiology 03/03/25 14:54 Sputum, Induced/Lukens Gram Stain - Final 03/03/25 14:54 Sputum, Induced/Lukens Respiratory Culture - Preliminary GNR lactose casing in line feeder 03/03/25 14:48 Urine Catheter - Catheter Urine Culture - Preliminary Presumptive E. coli 03/03/25 14:20 Blood Culture (Wb) - Venous Blood Culture - Preliminary 03/03/25 14:10 Blood Culture (Wb) - Venous Blood Culture - Preliminary 03/03/25 17:25 Mucosa - Nasopharyngeal Respiratory Panel (PCR) - Final 03/03/25 14:48 Mucosa - Nose SARS-CoV-2, Influenza & RSV (PCR) - Final Radiography Diagnostic Testing: Radiology Impression Abdomen/Pelvis CT 03/03/25 15:45 IMPRESSION: Clinical correlation for mild UTI and/or cystitis. Genitourinary findings discussed above in detail. - Pulmonary parenchymal opacities to be correlated for aspiration/pneumonia as discussed above. - Nonspecific gastrointestinal findings. - Other incidental and nonemergent findings discussed above. Reading Location: [facility] Physical Exam Const alert Constitutional Narrative: flat affect, not answering any questions General Appearance: cooperative HEENT normocephalic, head/scalp atraumatic, moist oral mucous membranes and oropharynxnormal Eyes EOMs intact bilaterally Neck supple and no JVD Lymph Lymphatic: no lymphedema noted Resp Resp Narrative: mildly diminished breath sounds bibasally, no wheezes or crackles. On 2L of oxygen. Cardio regular rate, regular rhythm, S1 normal heart sound, S2 normal heart sound and no murmurs GI normal to inspection, nondistended, normoactive bowel sounds, soft to palpation,non-tender and non-distended Extremity normal capillary refill and no clubbing, cyanosis or edema General Extremity: no tenderness to palpation of joints or extremities Skin General Skin Exam: no breakdown Neuro no focal motor deficits Neuro Narrative: flat affect Motor Exam: general weakness Psych Psych Narrative: flat affect, not responding to any questions Mood & Affect: flat affect Assessment & Plan Assessment/Plan (1) Acute hypoxic respiratory failure: (2) Sepsis: (3) Hyperlipidemia: PLAN: Plan #Acute hypoxic respiratory failure due to probable aspiration pneumonia * Was intubated on admission due to hypoxia. Now extubated and on room air. * Respiratory panel negative. COVID, flu and RSV also negative. * Cultures pending. Critical care on board. Titrate oxygen to maintain saturation above 90%. * Breathing treatments bronchodilators. * Abnormal chest CT was concerning for aspiration pneumonia. * #Sepsis due to UTI and probable aspiration pneumonia * Was tachycardic and tachypneic on admission was also febrile with temperature up to 102.6. Lacticacid was elevated at 3.4 and WBC was 13.5. Bilirubin was elevated and she was also tachypneic * Urinalysis did show evidence of elevated nitrites and leukocyte esterase as well as elevated WBC but no bacteria. * Currently on broad-spectrum IV antibiotics. Blood and urine cultures pending. * Patient was hydrated with IV fluids and responded. Critical care on board. #Elevated troponins: Likely due to demand ischemia. No chest pain. #Elevated liver enzymes, * total bilirubin is trended down to 1.94. AST and ALT are mildly elevated and ALP is elevated at 291. * CT abdomen and pelvis did not show any visualization of the gallbladder and showed no significantbiliary dilatation. * will monitor for now. * #GERD: On PPI #Type 2 diabetes mellitus: On insulin sliding scale. Accu-Cheks ACHS. #Depression and anxiety: On Lexapro #Hypothyroidism: On Synthroid #DVT prophylaxis: Lovenox. Charges/Coding Visit Charges Inpatient E&M: 70381 [facility] Hosp L3 03/04/25 1650 Linda Marte MD Cosigner Signature (if applicable): CC: ~ Signed [facility]09-05-2025 Consult note Author Mario Dunaway [facility] Note Date/Time March 04, 2025 9:19am [facility] Medical Records Department [address] [place] [address] Consultation - Support Services Coordinator 03/04/25 0746 MR#: [id number] Acct: [id number] Name: STEVE VIEIRA Rep #:[id number] : 1945 79 From: Mario Dunaway DO PCP: Dr. Peter Ellis MD Status:AD M IN Location: ICU ICU05-1 Assessment & Plan Assessment/Plan (1) Acute hypoxic respiratory failure: (2) Sepsis: PLAN: Plan RECOMMENDATIONS: 1. Continue assist-control mode of mechanical ventilation. Wean FiO2 and PEEP as tolerated. 2. Continue empiric broad-spectrum antimicrobials, pending infectious workup. 3. Continue propofol and fentanyl for sedation. 4. Continue appropriate ICU prophylaxis with Lovenox and Protonix. 5. Check TSH. 6. Spontaneous awakening and breathing trials, per protocol. 7. Tube feeding can be initiated tomorrow if the patient is unable to be extubated in the next 24 hours. IMPRESSIONS: 1. Sepsis The patient presented to the hospital with sepsis due to suspected UTI +/- aspiration pneumonia with acute sepsis related organ dysfunction as evidenced bylactic acidemia, hyperbilirubinemia and acute respiratory failure requiring invasive mechanical ventilatory support. She did receive supplemental IV fluid hydration and is remained otherwise hemodynamically stable. Plan to continue current supportive care, including broad-spectrum antimicrobials, pending finalized infectious workup. 2. Acute hypoxemic respiratory failure Most likely secondary to underlying aspiration pneumonia coupled with inability to compensate for metabolic demands of sepsis. The patient was ultimately intubated in the emergency department. She is doing well this morning from a respiratory perspective on assist-control mode mechanical ventilation. Will plan to continue to wean her FiO2 and PEEP as tolerated. Recommend proceeding with spontaneous awakening and breathing trials per protocol. The patient will need to be reevaluated by speech therapy following extubation. 3. History of oropharyngeal dysphagia/history of esophageal stricture and eosinophilic esophagitis The patient was previously noted to have oropharyngeal dysphagia along with a stricture requiring dilation and biopsies consistent with eosinophilic esophagitis on endoscopic evaluation in November 2023. Accordingly, recommend that speech therapy reevaluate the patient following extubation, prior to any advancement in her diet. 4. Diabetes mellitus/hypothyroidism/GERD/advanced age Complicates care, management, recovery and prognosis. Continue home medicationsas indicated. Will plan to check TSH today. Tube feeding for nutritional support can be initiated tomorrow, if the patient is unable to be extubated. TIME: 40 minutes of critical care time, independent of procedures, was spent adressingthe patient's sepsis, acute hypoxemic respiratory failure, review of all data and collaboration with the care team. HPI Consult Data Date of Consult: 03/04/25 HPI Narrative Reason for Consultation: Sepsis, acute respiratory failure HPI Narrative: The patient is an 79-year-old female, with a history as outlined below, who presented to the emergency department on March 03 with shortness of breath and hypoxemia. History pertinent to her hospitalization was obtained primarily via chart review, as the patient is currently intubated and there is no family available at the bedside. The patient has a documented history of diabetes mellitus, depression, GERD and hypothyroidism. The patient was last admitted [facility] in November 2023 with severe hyperglycemia and metabolic encephalopathy. The patient did have oropharyngeal dysphagia noted on modified barium swallow in November 2023. She was subsequently evaluated by gastroenterologywho completed an endoscopic evaluation which noted an esophageal stricture whichwas dilated. Biopsies also demonstrated severe eosinophilic esophagitis. On presentation to the emergency department, the patient was noted to be febrile, tachycardic and tachypneic. The patient was hypoxemic at presentation requiring a nonrebreather initially. Laboratory evaluation was notable for a white blood cell count of 13,000 with a hemoglobin of 10.4 g/dL and platelet count of 191,000. Initial arterial blood gas was notable for a pH of 7.47 with a pCO2 of 29 and pO2 of 78. Chemistry profile was unremarkable. Lactate was elevated at 3.4. Total bilirubin was increased to 2.5. Alkaline phosphatase was increased at 378. Troponin was mildly elevated at 49. Urine analysis was positive for nitrites, leukocyte esterase and greater than [address] abdomen/pelvis demonstrated airspace opacity with air bronchograms in the right lower lobe. The patient did receive IV fluid resuscitation and was started on antimicrobial therapy. There was initial concern by the ED provider over airway protection and decompensated respiratory failure, for which the patient was ultimately intubated. She was subsequently admitted to the medical intensive care unit. This morning, the patient's white blood cell count has increased to 20,000. Hemoglobin and platelet count are stable. Creatinine is stable. Total bilirubin has improved to 1.94. FiO2 requirement was noted to be 30%. [facility] Medical History Chronic depression Uncontrolled type 2 diabetes mellitus with hyperglycemia Chronic anemia Diabetes Kidney stones Adult failure to thrive Hyperglycemia due to diabetes mellitus Acute dehydration Head injury Home Medications ?Medication ?Instructions ?Recorded ?Last Taken ?Type levothyroxine 50 mcg tablet 50 mcg PO .LEOPOLDO thyro id 06/07/14 03/03/25 History atorvastatin 40 mg tablet 40 mg PO QHS CHOLESTEROL 03/02/25 History escitalopram oxalate 10 mg tablet 10 mg PO DAILY DEPRE SS 05/28/19 03/03/25 History levothyroxine 25 mcg tablet 75 mcg PO .MWF thyroid 04/2203/02/25 History acetaminophen 325 mg tablet 650 mg (2 x 325 mg) PO Q6H PRN PRN 12/06/23 03/03/25 Rx Pain 1-10 Or Fever>100.7 #0 tabs melatonin 3 mg tablet 3 mg PO QHS PRN PRN Insomnia #0 12/06/23 03/02/25 Rx tabs menthol 0.44 %-zinc oxide 20.6 % 1 applic topical BID redness 12/06/23 12/06/23 History topical ointment (Calmoseptine) acetaminophen 650 mg rectal 650 mg KS Q4H PRN fever or pain 03/03/25 Unknown History suppository bisacodyl 10 mg rectal suppository 10 mg KS DAILY PRN constipation 03/03/25 Unknown History cholecalciferol (vitamin D3) 1,250 1,250 mcg PO .Qmond ay supplement 03/03/25 02/28/25 History mcg (50,000 unit) capsule ferrous sulfate 325 mg (65 mg 325 mg PO BID iron suppl ement 03/03/25 03/03/25 History iron) tablet (FeroSul) guaifenesin 100 mg/5 mL oral 200 mg PO Q4H PRN congest ion, cough 03/03/25 Unknown History liquid (Adult Tussin Chest Congestion) insulin glargine 100 unit/mL (3 26 unit subcut QPM maria de jesus betes 03/03/25 03/02/25 History mL) subcutaneous pen (Lantus Solostar U-100 Insulin) insulin glargine 100 unit/mL (3 40 unit subcut .am maria de jesus betes 03/03/25 03/03/25 History mL) subcutaneous pen (Lantus Solostar U-100 Insulin) insulin lispro 100 unit/mL 5 unit subcut BIDAC diabete s 03/03/25 03/03/25 History subcutaneous pen (Humalog KwikPen (U-100) Insulin) insulin lispro 100 unit/mL 1 sliding scale dose subcut .AC 03/03/25 03/03/25 History subcutaneous solution (Humalog Diabetes U-100 Insulin) magnesium hydroxide 400 mg/5 mL 30 ml PO DAILY PRN con stipation 03/03/25 Unknown History oral suspension (Milk of Magnesia) oxybutynin chloride 10 mg 10 mg PO .HS bladder spasms 03/03/25 03/02/25 History tablet,extended release 24 hr pantoprazole 20 mg tablet,delayed 20 mg PO DAILY GERD 03/03/25 03/03/25 History release sennosides 8.6 mg-docusate sodium 1 tab PO DAILY const ipation 03/03/25 03/03/25 History 50 mg tablet (Stool Softener-Stimulant Laxative) Allergy/AdvReac Type Severity Reaction Status Date / Time venlafaxine HCl (From Allergy Rash Verified 03/03/25 14:19 Effexor) meclizine AdvReac Other Verified 03/03/25 14:19 Surgical History History of cholecystectomy History of knee joint replacement H/O: section Social History household members: none Smoking Status: Unknown if ever smoked alcohol intake: never substance use type: does not use ROS Review of Systems ROS Unobtainable: due to endotracheal tube Physical Exam Const Constitutional Narrative: Intubated, sedated and mechanically ventilated. No ventilator dyssynchrony noted. HEENT normocephalic and head/scalp atraumatic Mouth: endotracheal tube in place and OG tube in place Eyes EOMs intact bilaterally and conjunctivae normal Neck supple General: trachea midline Chest inspection of chest normal Resp normal respiratory effort Auscultation: Negative for rales, rhonchi or wheezes Cardio regular rate and regular rhythm GI soft to palpation and non-tender Extremity no clubbing, cyanosis or edema Skin no rashes or lesions noted Neuro Sensorium / Orientation: sedated on vent Lab / Micro Data 03/04/25 04:00 03/04/25 04:00 Labs: Laboratory Results - last 24 hr 03/03/25 14:20: WBC 13.5 H, RBC 3.39 L, Hgb 10.4 L, Hct 32.8 L, MCV 96.8, MCH 30.7, MCHC 31.7 L, RDW Std Deviation 49.9 H, RDW Coeff of Nicholas 14.1, Plt Count 191, MPV 10.9, Immature Gran % (Auto) 0.500, Neut % (Auto) 95.4 H, Lymph % (Auto) 2.2 L, [place] % (Auto) 1.3, Eos % (Auto) 0.2, Baso % (Auto) 0.4, Absolute Neuts (auto) 12.9 H, Absolute Lymphs (auto) 0.30 L, Nucleated RBC % 0, Sodium 135, Potassium 3.9, Chloride 101, Carbon Dioxide 22.6, Anion Gap 12, BUN 22 H, Creatinine 0.96, Estim Creat Clear Calc 44.36 L, Est GFR (MDRD) Non-Af 60, BUN/Creatinine Ratio 23.4 H, Glucose 214 H, Lactic Acid 3.4 H*, Calcium 9.0, Total Bilirubin 2.53 H, AST 77 H, ALT 39 H, Alkaline Phosphatase 378 H, Total Creatine Kinase 48, Troponin T High Sens 49 H, Total Protein 7.9, Albumin 3.7, Globulin 4.1, Albumin/Globulin Ratio 0.9, Triglycerides 119 03/03/25 14:48: Urine Color Yellow, Urine Clarity Sl. Cloudy, Urine pH 5.0, Ur Specific [place] 1.015, Urine Protein 100 H, Urine Glucose (UA) Normal, Urine Ketones Negative, Urine Occult Blood 150 H, Urine Nitrite Positive H, Urine Bilirubin Negative, Urine Urobilinogen 1 H, Ur Leukocyte Esterase 500 H, Urine RBC 0 SEEN, Urine WBC >100 SEEN, Ur Squamous Epith Cells 0 SEEN, Urine Bacteria 0 SEEN, Urine Mucus 0 SEEN 03/03/25 17:25: Troponin T Hi Sens 2 Hr 25 H 03/03/25 17:41: POC Glucose 134 H 03/03/25 19:30: Troponin T Hi Sens 4Hr 54 H* 03/03/25 23:07: POC Glucose 183 H 03/04/25 04:00: WBC 20.0 H, RBC 2.90 L, Hgb 9.0 L, Hct 28.8 L, MCV 99.3 H, MCH 31.0, MCHC 31.3 L, RDW Std Deviation 52.9 H, RDW Coeff of Nicholas 14.5, Plt Count 169, MPV 11.1, Immature Gran % (Auto) 1.000 H, Neut % (Auto) 91.9 H, Lymph % (Auto) 1.8 L, [place] % (Auto) 5.2, Eos % (Auto) 0.0, Baso % (Auto) 0.1, Absolute Neuts (auto) 18.4 H, Absolute Lymphs (auto) 0.37 L, Nucleated RBC % 0, PT 18.4 H, INR 1.5, Sodium 137, Potassium 3.8, Chloride 107, Carbon Dioxide 18.7 L, AnionGap 11, BUN 21 H, Creatinine 1.16, Estim Creat Clear Calc 36.55 L, Est GFR (MDRD) Non-Af 47 L, BUN/Creatinine Ratio 17.8, Glucose 175 H, Calcium 7.9, TotalBilirubin 1.94 H, AST 76 H, ALT 37 H, Alkaline Phosphatase 291 H, Total Protein 6.5, Albumin 2.7 L, Globulin 3.7, Albumin/Globulin Ratio 0.7 L 03/04/25 05:17: POC Glucose 171 H Micro: Microbiology 03/03/25 14:20 Blood Culture (Wb) - Venous Blood Culture - Preliminary 03/03/25 14:10 Blood Culture (Wb) - Venous Blood Culture - Preliminary 03/03/25 17:25 Mucosa - Nasopharyngeal Respiratory Panel (PCR) - Final 03/03/25 14:48 Mucosa - Nose SARS-CoV-2, Influenza & RSV (PCR) - Final ABG Data ABG results: ABG 03/03/25 03/03/25 14:27 15:21 Specimen Type ART ART Sample Site R Radial L Radial pH 7.47 H 7.42 Bicarbonate Actual 21.7 L 25.7 Total CO2 23 27 Base Excess -2 1 O2 Saturation 96 96 O2 % 50.0 ABG pCO2 29.8 L 40.1 ABG pO2 78 84 Jaylyn Test Positive Positive Respiration Rate 14 O2 Delivery Device Cannula Adult Vent Vent Mode Not entered AC Tidal Volume 400.0 POC PEEP 5 Imaging Radiology Impression Chest X-Ray 03/03/25 14:45 IMPRESSION: The tip of the endotracheal tube is at the level of the woodrow. It should be pulled back approximately 2 cm. Reading Location: -[id number] Abdomen/Pelvis CT 03/03/25 15:45 IMPRESSION: Clinical correlation for mild UTI and/or cystitis. Genitourinary findings discussed above in detail. - Pulmonary parenchymal opacities to be correlated for aspiration/pneumonia as discussed above. - Nonspecific gastrointestinal findings. - Other incidental and nonemergent findings discussed above. Reading Location: [id number] Charges/Coding Procedures Hospitalists Procedures: 85954 Critical Care 1st Hr 03/04/25918 <Electronically signed by Mario Dunaway DO> Cosigner Signature (if applicable): CC: Dr. Peter Ellis MD~ Signed [facility] Work Phone: [phone] Consult note [facility] Medical Records Department [address] [place] [address] Consultation - Support Services Coordinator 03/04/2546 MR#: [id number] Acct: [id number] Name: STEVE VIEIRA Rep #:[id number] : 1945 79 From: Mario Dunaway DO PCP: Dr. Peter Ellis MD Status:AD M IN Location: ICU ICU05-1 Assessment & Plan Assessment/Plan (1) Acute hypoxic respiratory failure: (2) Sepsis: PLAN: Plan RECOMMENDATIONS: 1. Continue assist-control mode of mechanical ventilation. Wean FiO2 and PEEP as tolerated. 2. Continue empiric broad-spectrum antimicrobials, pending infectious workup. 3. Continue propofol and fentanyl for sedation. 4. Continue appropriate ICU prophylaxis with Lovenox and Protonix. 5. Check TSH. 6. Spontaneous awakening and breathing trials, per protocol. 7. Tube feeding can be initiated tomorrow if the patient is unable to be extubated in the next 24 hours. IMPRESSIONS: 1. Sepsis The patient presented to the hospital with sepsis due to suspected UTI +/- aspiration pneumonia with acute sepsis related organ dysfunction as evidenced bylactic acidemia, hyperbilirubinemia and acute respiratory failure requiring invasive mechanical ventilatory support. She did receive supplemental IV fluid hydration and is remained otherwise hemodynamically stable. Plan to continue current supportive care, including broad-spectrum antimicrobials, pending finalized infectious workup. 2. Acute hypoxemic respiratory failure Most likely secondary to underlying aspiration pneumonia coupled with inability to compensate for metabolic demands of sepsis. The patient was ultimately intubated in the emergency department. She isdoing well this morning from a respiratory perspective on assist-control mode mechanical ventilation. Will plan to continue to wean her FiO2 and PEEP as tolerated. Recommend proceeding with spontaneous awakening and breathing trials per protocol. The patient will need to be reevaluated by speech therapy following extubation. 3. History of oropharyngeal dysphagia/history of esophageal stricture and eosinophilic esophagitis The patient was previously noted to have oropharyngeal dysphagia along with a stricture requiring dilation and biopsies consistent with eosinophilic esophagitis on endoscopic evaluation in November 2023.Accordingly, recommend that speech therapy reevaluate the patient following extubation, prior to any advancement in her diet. 4. Diabetes mellitus/hypothyroidism/GERD/advanced age Complicates care, management, recovery and prognosis. Continue home medicationsas indicated. Will plan to check TSH today. Tube feeding for nutritional support can be initiated tomorrow, if the patient is unable to be extubated. TIME: 40 minutes of critical care time, independent of procedures, was spent adressingthe patient's sepsis, acute hypoxemic respiratory failure, review of all data and collaboration with the care team. HPI Consult Data Date of Consult: 03/04/25 HPI Narrative Reason for Consultation: Sepsis, acute respiratory failure HPI Narrative: The patient is an 79-year-old female, with a history as outlined below, who presented to the emergency department on March 03 with shortness of breath and hypoxemia. History pertinent to her hospitalization was obtained primarily via chart review, as the patient is currently intubated and there is no family available at the bedside. The patient has a documented history of diabetes mellitus, depression, GERD and hypothyroidism. The patient was last admitted [facility] in November 2023 with severe hyperglycemia and metabolic encephalopathy. The patient did have oropharyngeal dysphagia noted on modified barium swallow in November 2023. She was subsequently evaluated by gastroenterologywho completed an endoscopic evaluation which noted an esophageal stricture whichwas dilated. Biopsies also demonstrated severe eosinophilic esophagitis. On presentation to the emergency department, the patient was noted to be febrile, tachycardic and tachypneic. The patient was hypoxemic at presentation requiring a nonrebreather initially. Laboratoryevaluation was notable for a white blood cell count of 13,000 with a hemoglobin of 10.4 g/dL and platelet count of 191,000. Initial arterial blood gas was notable for a pH of 7.47 with a pCO2 of 29 and pO2 of 78. Chemistry profile was unremarkable. Lactate was elevated at 3.4. Total bilirubin was increased to 2.5. Alkaline phosphatase was increased at 378. Troponin was mildly elevated at 49. Urine analysis was positive for nitrites, leukocyte esterase and greater than [address] abdomen/pelvis demonstrated airspace opacity with air bronchograms in the right lower lobe. The patient did receive IV fluid resuscitation and was started on antimicrobial therapy. There was initial concern by the ED provider over airway protection and decompensated respiratory failure, for which thepatient was ultimately intubated. She was subsequently admitted to the medical intensive care unit. This morning, the patient's white blood cell count has increased to 20,000. Hemoglobin and plateletcount are stable. Creatinine is stable. Total bilirubin has improved to 1.94. FiO2 requirement was noted to be 30%. [facility] Medical History Chronic depression Uncontrolled type 2 diabetes mellitus with hyperglycemia Chronic anemia Diabetes Kidney stones Adult failure to thrive Hyperglycemia due to diabetes mellitus Acute dehydration Head injury Home Medications ?Medication ?Instructions ?Recorded ?Last Taken ?Type levothyroxine 50 mcg tablet 50 mcg PO .TUTHUSASU thyro id 06/07/14 03/03/25 History atorvastatin 40 mg tablet 40 mg PO QHS CHOLESTEROL 03/02/25 History escitalopram oxalate 10 mg tablet 10 mg PO DAILY DEPRE SS 05/28/19 03/03/25 History levothyroxine 25 mcg tablet 75 mcg PO .MWF thyroid 04/2203/02/25 History acetaminophen 325 mg tablet 650 mg (2 x 325 mg) PO Q6H PRN PRN 12/06/23 03/03/25 Rx Pain 1-10 Or Fever>100.7 #0 tabs melatonin 3 mg tablet 3 mg PO QHS PRN PRN Insomnia #0 12/06/23 03/02/25 Rx tabs menthol 0.44 %-zinc oxide 20.6 % 1 applic topical BID redness 12/06/23 12/06/23 History topical ointment (Calmoseptine) acetaminophen 650 mg rectal 650 mg KS Q4H PRN fever or pain 03/03/25 Unknown History suppository bisacodyl 10 mg rectal suppository 10 mg KS DAILY PRN constipation 03/03/25 Unknown History cholecalciferol (vitamin D3) 1,250 1,250 mcg PO .Qmond ay supplement 03/03/25 02/28/25 History mcg (50,000 unit) capsule ferrous sulfate 325 mg (65 mg 325 mg PO BID iron suppl ement 03/03/25 03/03/25 History iron) tablet (FeroSul) guaifenesin 100 mg/5 mL oral 200 mg PO Q4H PRN congest ion, cough 03/03/25 Unknown History liquid (Adult Tussin Chest Congestion) insulin glargine 100 unit/mL (3 26 unit subcut QPM maria de jesus betes 03/03/25 03/02/25 History mL) subcutaneous pen (Lantus Solostar U-100 Insulin) insulin glargine 100 unit/mL (3 40 unit subcut .am maria de jesus betes 03/03/25 03/03/25 History mL) subcutaneous pen (Lantus Solostar U-100 Insulin) insulin lispro 100 unit/mL 5 unit subcut BIDAC diabete s 03/03/25 03/03/25 History subcutaneous pen (Humalog KwikPen (U-100) Insulin) insulin lispro 100 unit/mL 1 sliding scale dose subcut .AC 03/03/25 03/03/25 History subcutaneous solution (Humalog Diabetes U-100 Insulin) magnesium hydroxide 400 mg/5 mL 30 ml PO DAILY PRN con stipation 03/03/25 Unknown History oral suspension (Milk of Magnesia) oxybutynin chloride 10 mg 10 mg PO .HS bladder spasms 03/03/25 03/02/25 History tablet,extended release 24 hr pantoprazole 20 mg tablet,delayed 20 mg PO DAILY GERD 03/03/25 03/03/25 History release sennosides 8.6 mg-docusate sodium 1 tab PO DAILY const ipation 03/03/25 03/03/25 History 50 mg tablet (Stool Softener-Stimulant Laxative) Allergy/AdvReac Type Severity Reaction Status Date / Time venlafaxine HCl (From Allergy Rash Verified 03/03/25 14:19 Effexor) meclizine AdvReac Other Verified 03/03/25 14:19 Surgical History History of cholecystectomy History of knee joint replacement H/O: section Social History household members: none Smoking Status: Unknown if ever smoked alcohol intake: never substance use type: does not use ROS Review of Systems ROS Unobtainable: due to endotracheal tube Physical Exam Const Constitutional Narrative: Intubated, sedated and mechanically ventilated. No ventilator dyssynchrony noted. HEENT normocephalic and head/scalp atraumatic Mouth: endotracheal tube in place and OG tube in place Eyes EOMs intact bilaterally and conjunctivae normal Neck supple General: trachea midline Chest inspection of chest normal Resp normal respiratory effort Auscultation: Negative for rales, rhonchi or wheezes Cardio regular rate and regular rhythm GI soft to palpation and non-tender Extremity no clubbing, cyanosis or edema Skin no rashes or lesions noted Neuro Sensorium / Orientation: sedated on vent Lab / Micro Data 03/04/25 04:00 03/04/25 04:00 Labs: Laboratory Results - last 24 hr 03/03/25 14:20: WBC 13.5 H, RBC 3.39 L, Hgb 10.4 L, Hct 32.8 L, MCV 96.8, MCH 30.7, MCHC 31.7 L, RDW Std Deviation 49.9 H, RDW Coeff of Nicholas 14.1, Plt Count 191, MPV 10.9, Immature Gran % (Auto) 0.500, Neut % (Auto) 95.4 H, Lymph % (Auto) 2.2 L, [place] % (Auto) 1.3, Eos % (Auto) 0.2, Baso % (Auto) 0.4, Absolute Neuts (auto) 12.9 H, Absolute Lymphs (auto) 0.30 L, Nucleated RBC % 0, Sodium 135, Potassium 3.9, Chloride 101, Carbon Dioxide 22.6, Anion Gap 12, BUN 22 H, Creatinine 0.96, Estim Creat Clear Calc 44.36 L, Est GFR (MDRD) Non-Af 60, BUN/Creatinine Ratio 23.4 H, Glucose 214 H, Lactic Acid 3.4 H*, Calcium 9.0, Total Bilirubin 2.53 H, AST 77 H, ALT 39 H, Alkaline Phosphatase 378 H, Total Creatine Kinase 48, Troponin T High Sens 49 H, Total Protein 7.9, Albumin 3.7, Globulin 4.1, Albumin/Globulin Ratio 0.9, Triglycerides 119 03/03/25 14:48: Urine Color Yellow, Urine Clarity Sl. Cloudy, Urine pH 5.0, Ur Specific [place] 1.015, Urine Protein 100 H, Urine Glucose (UA) Normal, Urine Ketones Negative, Urine Occult Blood 150 H, Urine Nitrite Positive H, Urine Bilirubin Negative, Urine Urobilinogen 1 H, Ur Leukocyte Esterase 500 H, Urine RBC 0 SEEN, Urine WBC >100 SEEN, Ur Squamous Epith Cells 0 SEEN, Urine Bacteria 0 SEEN, Urine Mucus 0 SEEN 03/03/25 17:25: Troponin T Hi Sens 2 Hr 25 H 03/03/25 17:41: POC Glucose 134 H 03/03/25 19:30: Troponin T Hi Sens 4Hr 54 H* 03/03/25 23:07: POC Glucose 183 H 03/04/25 04:00: WBC 20.0 H, RBC 2.90 L, Hgb 9.0 L, Hct 28.8 L, MCV 99.3 H, MCH 31.0, MCHC 31.3 L, RDW Std Deviation 52.9 H, RDW Coeff of Nicholas 14.5, Plt Count 169, MPV 11.1, Immature Gran % (Auto) 1.000 H, Neut % (Auto) 91.9 H, Lymph % (Auto) 1.8 L, [place] % (Auto) 5.2, Eos % (Auto) 0.0, Baso % (Auto) 0.1, Absolute Neuts (auto) 18.4 H, Absolute Lymphs (auto) 0.37 L, Nucleated RBC % 0, PT 18.4 H, INR 1.5, Sodium 137, Potassium 3.8, Chloride 107, Carbon Dioxide 18.7 L, AnionGap 11, BUN 21 H, Creatinine 1.16, Estim Creat Clear Calc 36.55 L, Est GFR (MDRD) Non-Af 47 L, BUN/Creatinine Ratio 17.8, Glucose 175 H, Calcium 7.9, TotalBilirubin 1.94 H, AST 76 H, ALT 37 H, Alkaline Phosphatase 291 H, Total Protein 6.5, Albumin 2.7 L, Globulin 3.7, Albumin/Globulin Ratio 0.7 L 03/04/25 05:17: POC Glucose 171 H Micro: Microbiology 03/03/25 14:20 Blood Culture (Wb) - Venous Blood Culture - Preliminary 03/03/25 14:10 Blood Culture (Wb) - Venous Blood Culture - Preliminary 03/03/25 17:25 Mucosa - Nasopharyngeal Respiratory Panel (PCR) - Final 03/03/25 14:48 Mucosa - Nose SARS-CoV-2, Influenza & RSV (PCR) - Final ABG Data ABG results: ABG 03/03/25 03/03/25 14:27 15:21 Specimen Type ART ART Sample Site R Radial L Radial pH 7.47 H 7.42 Bicarbonate Actual 21.7 L 25.7 Total CO2 23 27 Base Excess -2 1 O2 Saturation 96 96 O2 % 50.0 ABG pCO2 29.8 L 40.1 ABG pO2 78 84 Jaylyn Test Positive Positive Respiration Rate 14 O2 Delivery Device Cannula Adult Vent Vent Mode Not entered AC Tidal Volume 400.0 POC PEEP 5 Imaging Radiology Impression Chest X-Ray 03/03/25 14:45 IMPRESSION: The tip of the endotracheal tube is at the level of the woodrow. It should be pulled back approximately 2 cm. Reading Location: -[id number] Abdomen/Pelvis CT 03/03/25 15:45 IMPRESSION: Clinical correlation for mild UTI and/or cystitis. Genitourinary findings discussed above in detail. - Pulmonary parenchymal opacities to be correlated for aspiration/pneumonia as discussed above. - Nonspecific gastrointestinal findings. - Other incidental and nonemergent findings discussed above. Reading Location: [id number] Charges/Coding Procedures Hospitalists Procedures: 16605 Critical Care 1st Hr 03/04/25 0919 Cosigner Signature (if applicable): CC: Dr. Peter Ellis MD~ Signed [facility]09-05-2025 Discharge summary Author Frieda Laurent [facility] Note Date/Time March 04, 2025 12:07am [facility] Medical Records Department [address] [place] [id number] Emergency Department Summary 03/03/25 MR#: [id number] Acct: [id number] Name: STEVE VIEIRA Rep #:[id number] : 1945 79 From: Frieda Laurent MD PCP: Dr. Peter Ellis MD Status:AD M IN Location: ICU ICU05-1 HPI History of Present Illness Chief Complaint: Shortness of Breath Narrative Narrative: Patient is an 79-year-old female presenting to the emergency department for respiratory distress. Patient has past medical history of dementia, hyperlipidemia, failure to thrive. Patient received an RSV vaccine about 2 weeks ago and her nursing facility states that since then she has begun to decline. They state that today she was hypoxic and EMS was called. When EMS arrived she was saturating 65% on 4 L nasal cannula, does not wear any oxygen atbaseline. They placed her on a nonrebreather. Patient unable to provide history due to dementia and presenting symptoms. [facility] Medical History Chronic depression Uncontrolled type 2 diabetes mellitus with hyperglycemia Chronic anemia Diabetes Kidney stones Adult failure to thrive Hyperglycemia due to diabetes mellitus Acute dehydration Head injury Home Medications ?Medication ?Instructions ?Recorded ?Last Taken ?Type levothyroxine 50 mcg tablet 50 mcg PO .TUTMARILOUSASU thyro id 06/07/14 03/03/25 History atorvastatin 40 mg tablet 40 mg PO QHS CHOLESTEROL 03/02/25 History escitalopram oxalate 10 mg tablet 10 mg PO DAILY DEPRE SS 05/28/19 03/03/25 History levothyroxine 25 mcg tablet 75 mcg PO .MWF thyroid 04/2203/02/25 History acetaminophen 325 mg tablet 650 mg (2 x 325 mg) PO Q6H PRN PRN 12/06/23 03/03/25 Rx Pain 1-10 Or Fever>100.7 #0 tabs melatonin 3 mg tablet 3 mg PO QHS PRN PRN Insomnia #0 12/06/23 03/02/25 Rx tabs menthol 0.44 %-zinc oxide 20.6 % 1 applic topical BID redness 12/06/23 12/06/23 History topical ointment (Calmoseptine) acetaminophen 650 mg rectal 650 mg KS Q4H PRN fever or pain 03/03/25 Unknown History suppository bisacodyl 10 mg rectal suppository 10 mg KS DAILY PRN constipation 03/03/25 Unknown History cholecalciferol (vitamin D3) 1,250 1,250 mcg PO .Qmond ay supplement 03/03/25 02/28/25 History mcg (50,000 unit) capsule ferrous sulfate 325 mg (65 mg 325 mg PO BID iron suppl ement 03/03/25 03/03/25 History iron) tablet (FeroSul) guaifenesin 100 mg/5 mL oral 200 mg PO Q4H PRN congest ion, cough 03/03/25 Unknown History liquid (Adult Tussin Chest Congestion) insulin glargine 100 unit/mL (3 26 unit subcut QPM maria de jesus betes 03/03/25 03/02/25 History mL) subcutaneous pen (Lantus Solostar U-100 Insulin) insulin glargine 100 unit/mL (3 40 unit subcut .am maria de jesus bet03/03/25 03/03/25 History mL) subcutaneous pen (Lantus Solostar U-100 Insulin) insulin lispro 100 unit/mL 5 unit subcut BIDAC diabete s 03/03/25 03/03/25 History subcutaneous pen (Humalog KwikPen (U-100) Insulin) insulin lispro 100 unit/mL 1 sliding scale dose subcut .AC 03/03/25 03/03/25 History subcutaneous solution (Humalog Diabetes U-100 Insulin) magnesium hydroxide 400 mg/5 mL 30 ml PO DAILY PRN con stipation 03/03/25 Unknown History oral suspension (Milk of Magnesia) oxybutynin chloride 10 mg 10 mg PO .HS bladder spasms 03/03/25 03/02/25 History tablet,extended release 24 hr pantoprazole 20 mg tablet,delayed 20 mg PO DAILY GERD 03/03/25 03/03/25 History release sennosides 8.6 mg-docusate sodium 1 tab PO DAILY const ipation 03/03/25 03/03/25 History 50 mg tablet (Stool Softener-Stimulant Laxative) Allergy/AdvReac Type Severity Reaction Status Date / Time venlafaxine HCl (From Allergy Rash Verified 03/03/25 14:19 Effexor) meclizine AdvReac Other Verified 03/03/25 14:19 Surgical History History of cholecystectomy History of knee joint replacement H/O: section Social History household members: none Smoking Status: Unknown if ever smoked alcohol intake: never substance use type: does not use ROS ROS ED Review of Systems ROS Unobtainable: due to mental condition and due to mental status EXAM Physical Exam Narrative Exam Narrative: Vital signs: Reviewed General: In acute respiratory distress. Chronically ill-appearing. HEENT: Head is normocephalic and atraumatic, sinuses nontender, pupils equal round and reactive. Nares are patent. Oropharynx and throat exams normal. Emesis around mouth and on shirt. Neck: Supple without lymphadenopathy nontender Cardiovascular: Tachycardic rate and regular rhythm, no murmurs. No rubs or gallops. Normal S1 and S2 Respiratory: Rhonchorous lung sounds throughout. No wheezing. Arrives on a nonrebreather, switched to humidified nasal cannula. Abdominal: Soft and nontender. Normal bowel sounds. No guarding or rebound. Nonsurgical abdomen Extremities: No tenderness. No bruising. Normal range of motion. Normal sensation. Skin: No rash or redness. Neurological: Moves all extremities. The rest of the physical exam is unremarkable Const Vital Signs: 03/03/25 14:11 03/03/25 14:15 03/03/25 14:18 Temperature 100 F H 100 F H Temperature Source Oral Oral Pulse Rate 131 H 130 H Respiratory Rate 36 H 36 H Respiratory Effort Respiratory Depth Respiratory Pattern Blood Pressure 130/67 H 130/67 H Blood Pressure Mean 88 88 Pulse Ox 90 93 94 Oxygen Delivery Method Nasal Cannula Non-Rebreather Nasal Cannula Oxygen Flow Rate (L/min) 10 15 10 Fraction of Inspired Oxygen (FIO2) 03/03/25 14:20 03/03/25 14:31 03/03/25 14:32 Temperature Temperature Source Pulse Rate 100 Respiratory Rate 14 Respiratory Effort Normal Normal Respiratory Depth Shallow Shallow Respiratory Pattern Tachypnea Tachypnea Normal Blood Pressure Blood Pressure Mean Pulse Ox 94 Oxygen Delivery Method Nasal Cannula Oxygen Flow Rate (L/min) 10 Fraction of Inspired Oxygen (FIO2) 50 03/03/25 15:10 03/03/25 15:15 03/03/25 15:18 Temperature 102.6 F H Temperature Source Core Pulse Rate 122 H 121 H 120 H Respiratory Rate 14 Respiratory Effort Respiratory Depth Respiratory Pattern Blood Pressure 71/51 L 97/70 108/61 Blood Pressure Mean 57 79 76 Pulse Ox 96 Oxygen Delivery Method Mechanical Ventilator Oxygen Flow Rate (L/min) Fraction of Inspired Oxygen (FIO2) 03/03/25 15:20 03/03/25 15:22 03/03/25 15:30 Temperature 102.6 F H 102 F H Temperature Source Core Core Pulse Rate 121 H 120 H Respiratory Rate 14 14 Respiratory Effort Respiratory Depth Respiratory Pattern Blood Pressure 108/61 119/61 Blood Pressure Mean 76 80 Pulse Ox 96 96 Oxygen Delivery Method Mechanical Ventilator Mechanical Ventilator Oxygen Flow Rate (L/min) Fraction of Inspired Oxygen (FIO2) 60 03/03/25 16:00 Temperature 101.2 F H Temperature Source Core Pulse Rate 113 H Respiratory Rate 14 Respiratory Effort Respiratory Depth Respiratory Pattern Blood Pressure 119/51 L Blood Pressure Mean 73 Pulse Ox 97 Oxygen Delivery Method Mechanical Ventilator Oxygen Flow Rate (L/min) Fraction of Inspired Oxygen (FIO2) MDM MDM MDM Narrative Medical decision making narrative: Patient is a 79-year-old female presenting to the emergency department for respiratory distress. Patient was seen on arrival. On nonrebreather saturatingin the low 90s. Tachycardic. Febrile. She arrives with DNR CCA paperwork. Noindication about intubation status. I did speak to the patient's son, Salomón Lott, to ask about intubation status. He is unsure, asks for her to be intubated until he decides after speaking to his brother. Fluid bolus started. Based off the patient's presentation, sepsis team was started. Tylenol was already given rectally at the nursing facility. Rocephin and azithromycin givenfor likely respiratory versus urinary source of infection. VBG with no significant respiratory acidosis however based on the patient's work of breathing and need to protect airway given her vomiting and likely aspiration, decision was made to intubate. Etomidate and rocuronium used. First- pass attempt successful with a 7.5 tube and glide scope. Positive color change and bilateral breath sounds present. OG placed by nursing staff. X-ray obtained, ET tube pulled back 2 cm after x-ray was reviewed. Propofol and fentanyl used for postintubation sedation. CBC with mild leukocytosis of 13.5. Hemoglobin 10.4. CMP with transaminitis and elevated total bilirubin at 2.53, CT abdomen pelvis ordered after these labs were reviewed. Lactate of 3.4. Urinalysis withevidence of UTI with WBCs, leukocyte esterase and nitrites. CT abdomen pelvis with evidence of cystitis. Pulmonary parenchymal opacities to be correlated foraspiration or pneumonia. Patient admitted to hospitalist, Dr. Trent, for further management. Clinical impression Urosepsis Aspiration pneumonia Acute hypoxic respiratory failure History & Record Review Discussion w/independent historian: EMS personnel and Family Lab Data Attestation: I reviewed the patient's lab results. Labs: Laboratory Results - last 24 hr 03/03/25 03/03/25 14:20 14:48 WBC 13.5 H RBC 3.39 L Hgb 10.4 L Hct 32.8 L MCV 96.8 MCH 30.7 MCHC 31.7 L RDW Std Deviation 49.9 H RDW Coeff of Nicholas 14.1 Plt Count 191 MPV 10.9 Immature Gran % (Auto) 0.500 Neut % (Auto) 95.4 H Lymph % (Auto) 2.2 L [place] % (Auto) 1.3 Eos % (Auto) 0.2 Baso % (Auto) 0.4 Absolute Neuts (auto) 12.9 H Absolute Lymphs (auto) 0.30 L Nucleated RBC % 0 Sodium 135 Potassium 3.9 Chloride 101 Carbon Dioxide 22.6 Anion Gap 12 BUN 22 H Creatinine 0.96 Estim Creat Clear Calc 44.36 L Est GFR (MDRD) Non-Af 60 BUN/Creatinine Ratio 23.4 H Glucose 214 H Lactic Acid 3.4 H* Calcium 9.0 Total Bilirubin 2.53 H AST 77 H ALT 39 H Alkaline Phosphatase 378 H Total Creatine Kinase 48 Troponin T High Sens 49 H Total Protein 7.9 Albumin 3.7 Globulin 4.1 Albumin/Globulin Ratio 0.9 Triglycerides 119 Urine Color Yellow Urine Clarity Sl. Cloudy Urine pH 5.0 Ur Specific [place] 1.015 Urine Protein 100 H Urine Glucose (UA) Normal Urine Ketones Negative Urine Occult Blood 150 H Urine Nitrite Positive H Urine Bilirubin Negative Urine Urobilinogen 1 H Ur Leukocyte Esterase 500 H Urine RBC 0 SEEN Urine WBC >100 SEEN Ur Squamous Epith Cells 0 SEEN Urine Bacteria 0 SEEN Urine Mucus 0 SEEN ABG Data ABG results: ABG 03/03/25 03/03/25 14:27 15:21 Specimen Type ART ART Sample Site R Radial L Radial pH 7.47 H 7.42 Bicarbonate Actual 21.7 L 25.7 Total CO2 23 27 Base Excess -2 1 O2 Saturation 96 96 O2 % 50.0 ABG pCO2 29.8 L 40.1 ABG pO2 78 84 Jaylyn Test Positive Positive Respiration Rate 14 O2 Delivery Device Cannula Adult Vent Vent Mode Not entered AC Tidal Volume 400.0 POC PEEP 5 Radiography Diagnostic Testing: Clinical Impression(s) from Imaging Studies Chest X-Ray 03/03/25 14:45 IMPRESSION: The tip of the endotracheal tube is at the level of the woodrow. It should be pulled back approximately 2 cm. Reading Location: -[id number] Abdomen/Pelvis CT 03/03/25 15:45 IMPRESSION: Clinical correlation for mild UTI and/or cystitis. Genitourinary findings discussed above in detail. - Pulmonary parenchymal opacities to be correlated for aspiration/pneumonia as discussed above. - Nonspecific gastrointestinal findings. - Other incidental and nonemergent findings discussed above. Reading Location: [id number] Procedures Intubations Intubation Method: orotracheal Intubation Verification: Positive color change and Bilateral breath sounds confirmed Intubation Complications: no complications Discharge Plan Disposition Disposition: [facility] Discharge Date/Time: 03/03/25 16:21 What to do if you have Problems For any increased pain, shortness of breath, bleeding, nausea or vomiting, chestpain, or any unexpected problems, contact your Primary Care Provider. Call [facility] ([phone]) or report to the closest Emergency Room. Call 911 if necessary. 03/03/25 2307 <Electronically signed by Frieda Laurent MD> Cosigner Signature (if applicable): CC: Dr. Peter Ellis MD ~ Signed ADDENDUM by Dr. Frieda Laurent MD on 03/04/25 at 0007 Critical care time 60 minutes performing procedures, discussing with family, discussing with consultants and direct patient care. 03/04/25 0007<Electronically signed by Frieda Laurent MD> Cosigner Signature (if applicable): cc: Dr. Peter Ellis MD ~* Signed [facility] Work Phone: 1(395) 851-447309-05-2025 Discharge summary [facility] Medical Records Department [address] [place] [address] Emergency Department Summary 03/03/25 MR#: [id number] Acct: [id number] Name: STEVE VIEIRA Rep #:[id number] : 1945 79 From: Frieda Laurent MD PCP: Dr. Peter Ellis MD Status:AD M IN Location: ICU ICU05-1 HPI History of Present Illness Chief Complaint: Shortness of Breath Narrative Narrative: Patient is an 79-year-old female presenting to the emergency department for respiratory distress. Patient has past medical history of dementia, hyperlipidemia, failure to thrive. Patient received an RSV vaccine about 2 weeks ago and her nursing facility states that since then she has begun to decline. They state that today she was hypoxic and EMS was called. When EMS arrived she was saturating 65% on 4 L nasal cannula, does not wear any oxygen atbaseline. They placed her on a nonrebreather. Patient unable to provide history due to dementia and presenting symptoms. [facility] Medical History Chronic depression Uncontrolled type 2 diabetes mellitus with hyperglycemia Chronic anemia Diabetes Kidney stones Adult failure to thrive Hyperglycemia due to diabetes mellitus Acute dehydration Head injury Home Medications ?Medication ?Instructions ?Recorded ?Last Taken ?Type levothyroxine 50 mcg tablet 50 mcg PO .MICHELLESU thyro id 06/07/14 03/03/25 History atorvastatin 40 mg tablet 40 mg PO QHS CHOLESTEROL 03/02/25 History escitalopram oxalate 10 mg tablet 10 mg PO DAILY DEPRE SS 05/28/19 03/03/25 History levothyroxine 25 mcg tablet 75 mcg PO .MWF thyroid 04/2203/02/25 History acetaminophen 325 mg tablet 650 mg (2 x 325 mg) PO Q6H PRN PRN 12/06/23 03/03/25 Rx Pain 1-10 Or Fever>100.7 #0 tabs melatonin 3 mg tablet 3 mg PO QHS PRN PRN Insomnia #0 12/06/23 03/02/25 Rx tabs menthol 0.44 %-zinc oxide 20.6 % 1 applic topical BID redness 12/06/23 12/06/23 History topical ointment (Calmoseptine) acetaminophen 650 mg rectal 650 mg KS Q4H PRN fever or pain 03/03/25 Unknown History suppository bisacodyl 10 mg rectal suppository 10 mg KS DAILY PRN constipation 03/03/25 Unknown History cholecalciferol (vitamin D3) 1,250 1,250 mcg PO .Qmond ay supplement 03/03/25 02/28/25 History mcg (50,000 unit) capsule ferrous sulfate 325 mg (65 mg 325 mg PO BID iron suppl ement 03/03/25 03/03/25 History iron) tablet (FeroSul) guaifenesin 100 mg/5 mL oral 200 mg PO Q4H PRN congest ion, cough 03/03/25 Unknown History liquid (Adult Tussin Chest Congestion) insulin glargine 100 unit/mL (3 26 unit subcut QPM maria de jesus betes 03/03/25 03/02/25 History mL) subcutaneous pen (Lantus Solostar U-100 Insulin) insulin glargine 100 unit/mL (3 40 unit subcut .am maria de jesus betes 03/03/25 03/03/25 History mL) subcutaneous pen (Lantus Solostar U-100 Insulin) insulin lispro 100 unit/mL 5 unit subcut BIDAC diabete s 03/03/25 03/03/25 History subcutaneous pen (Humalog KwikPen (U-100) Insulin) insulin lispro 100 unit/mL 1 sliding scale dose subcut .AC 03/03/25 03/03/25 History subcutaneous solution (Humalog Diabetes U-100 Insulin) magnesium hydroxide 400 mg/5 mL 30 ml PO DAILY PRN con stipation 03/03/25 Unknown History oral suspension (Milk of Magnesia) oxybutynin chloride 10 mg 10 mg PO .HS bladder spasms 03/03/25 03/02/25 History tablet,extended release 24 hr pantoprazole 20 mg tablet,delayed 20 mg PO DAILY GERD 03/03/25 03/03/25 History release sennosides 8.6 mg-docusate sodium 1 tab PO DAILY const ipation 03/03/25 03/03/25 History 50 mg tablet (Stool Softener-Stimulant Laxative) Allergy/AdvReac Type Severity Reaction Status Date / Time venlafaxine HCl (From Allergy Rash Verified 03/03/25 14:19 Effexor) meclizine AdvReac Other Verified 03/03/25 14:19 Surgical History History of cholecystectomy History of knee joint replacement H/O: section Social History household members: none Smoking Status: Unknown if ever smoked alcohol intake: never substance use type: does not use ROS ROS ED Review of Systems ROS Unobtainable: due to mental condition and due to mental status EXAM Physical Exam Narrative Exam Narrative: Vital signs: Reviewed General: In acute respiratory distress. Chronically ill-appearing. HEENT: Head is normocephalic and atraumatic, sinuses nontender, pupils equal round and reactive. Nares are patent. Oropharynx and throat exams normal. Emesis around mouth and on shirt. Neck: Supple without lymphadenopathy nontender Cardiovascular: Tachycardic rate and regular rhythm, no murmurs. No rubs or gallops. Normal S1 and S2 Respiratory: Rhonchorous lung sounds throughout. No wheezing. Arrives on a nonrebreather, switched to humidified nasal cannula. Abdominal: Soft and nontender. Normal bowel sounds. No guarding or rebound. Nonsurgical abdomen Extremities: No tenderness. No bruising. Normal range of motion. Normal sensation. Skin: No rash or redness. Neurological: Moves all extremities. The rest of the physical exam is unremarkable Const Vital Signs: 03/03/25 14:11 03/03/25 14:15 03/03/25 14:18 Temperature 100 F H 100 F H Temperature Source Oral Oral Pulse Rate 131 H 130 H Respiratory Rate 36 H 36 H Respiratory Effort Respiratory Depth Respiratory Pattern Blood Pressure 130/67 H 130/67 H Blood Pressure Mean 88 88 Pulse Ox 90 93 94 Oxygen Delivery Method Nasal Cannula Non-Rebreather Nasal Cannula Oxygen Flow Rate (L/min) 10 15 10 Fraction of Inspired Oxygen (FIO2) 03/03/25 14:20 03/03/25 14:31 03/03/25 14:32 Temperature Temperature Source Pulse Rate 100 Respiratory Rate 14 Respiratory Effort Normal Normal Respiratory Depth Shallow Shallow Respiratory Pattern Tachypnea Tachypnea Normal Blood Pressure Blood Pressure Mean Pulse Ox 94 Oxygen Delivery Method Nasal Cannula Oxygen Flow Rate (L/min) 10 Fraction of Inspired Oxygen (FIO2) 50 03/03/25 15:10 03/03/25 15:15 03/03/25 15:18 Temperature 102.6 F H Temperature Source Core Pulse Rate 122 H 121 H 120 H Respiratory Rate 14 Respiratory Effort Respiratory Depth Respiratory Pattern Blood Pressure 71/51 L 97/70 108/61 Blood Pressure Mean 57 79 76 Pulse Ox 96 Oxygen Delivery Method Mechanical Ventilator Oxygen Flow Rate (L/min) Fraction of Inspired Oxygen (FIO2) 09/04/25 15:20 03/03/25 15:22 03/03/25 15:30 Temperature 102.6 F H 102 F H Temperature Source Core Core Pulse Rate 121 H 120 H Respiratory Rate 14 14 Respiratory Effort Respiratory Depth Respiratory Pattern Blood Pressure 108/61 119/61 Blood Pressure Mean 76 80 Pulse Ox 96 96 Oxygen Delivery Method Mechanical Ventilator Mechanical Ventilator Oxygen Flow Rate (L/min) Fraction of Inspired Oxygen (FIO2) 60 03/03/25 16:00 Temperature 101.2 F H Temperature Source Core Pulse Rate 113 H Respiratory Rate 14 Respiratory Effort Respiratory Depth Respiratory Pattern Blood Pressure 119/51 L Blood Pressure Mean 73 Pulse Ox 97 Oxygen Delivery Method Mechanical Ventilator Oxygen Flow Rate (L/min) Fraction of Inspired Oxygen (FIO2) MDM MDM MDM Narrative Medical decision making narrative: Patient is a 79-year-old female presenting to the emergency department for respiratory distress. Patient was seen on arrival. On nonrebreather saturatingin the low 90s. Tachycardic. Febrile. She arrives with DNR CCA paperwork. Noindication about intubation status. I did speak to the patient's son, Salomón Lott, to ask about intubation status. He is unsure, asks for her to be intubated until he decides after speaking to his brother. Fluid bolus started. Based off the patient's presentation, sepsis team was started. Tylenol was already given rectally at the nursing facility. Rocephin and azithromycin givenfor likely respiratory versus urinary source of infection. VBG with no significant respiratory acidosis however based on the patient's work of breathing and need to protect airway given hervomiting and likely aspiration, decision was made to intubate. Etomidate and rocuronium used. First-pass attempt successful with a 7.5 tube and glide scope. Positive color change and bilateral breathsounds present. OG placed by nursing staff. X-ray obtained, ET tube pulled back 2 cm after x-ray was reviewed. Propofol and fentanyl used for postintubation sedation. CBC with mild leukocytosis of 13.5. Hemoglobin 10.4. CMP with transaminitis and elevated total bilirubin at 2.53, CT abdomen pelvis o rdered after these labs were reviewed. Lactate of 3.4. Urinalysis withevidence of UTI with WBCs, leukocyte esterase and nitrites. CT abdomen pelvis with evidence of cystitis. Pulmonary parenchymal opacities to be correlated foraspiration or pneumonia. Patient admitted to hospitalist, Dr. Trent, for further management. Clinical impression Urosepsis Aspiration pneumonia Acute hypoxic respiratory failure History & Record Review Discussion w/independent historian: EMS personnel and Family Lab Data Attestation: I reviewed the patient's lab results. Labs: Laboratory Results - last 24 hr 03/03/25 03/03/25 14:20 14:48 WBC 13.5 H RBC 3.39 L Hgb 10.4 L Hct 32.8 L MCV 96.8 MCH 30.7 MCHC 31.7 L RDW Std Deviation 49.9 H RDW Coeff of Nicholas 14.1 Plt Count 191 MPV 10.9 Immature Gran % (Auto) 0.500 Neut % (Auto) 95.4 H Lymph % (Auto) 2.2 L [place] % (Auto) 1.3 Eos % (Auto) 0.2 Baso % (Auto) 0.4 Absolute Neuts (auto) 12.9 H Absolute Lymphs (auto) 0.30 L Nucleated RBC % 0 Sodium 135 Potassium 3.9 Chloride 101 Carbon Dioxide 22.6 Anion Gap 12 BUN 22 H Creatinine 0.96 Estim Creat Clear Calc 44.36 L Est GFR (MDRD) Non-Af 60 BUN/Creatinine Ratio 23.4 H Glucose 214 H Lactic Acid 3.4 H* Calcium 9.0 Total Bilirubin 2.53 H AST 77 H ALT 39 H Alkaline Phosphatase 378 H Total Creatine Kinase 48 Troponin T High Sens 49 H Total Protein 7.9 Albumin 3.7 Globulin 4.1 Albumin/Globulin Ratio 0.9 Triglycerides 119 Urine Color Yellow Urine Clarity Sl. Cloudy Urine pH 5.0 Ur Specific [place] 1.015 Urine Protein 100 H Urine Glucose (UA) Normal Urine Ketones Negative Urine Occult Blood 150 H Urine Nitrite Positive H Urine Bilirubin Negative Urine Urobilinogen 1 H Ur Leukocyte Esterase 500 H Urine RBC 0 SEEN Urine WBC >100 SEEN Ur Squamous Epith Cells 0 SEEN Urine Bacteria 0 SEEN Urine Mucus 0 SEEN ABG Data ABG results: ABG 03/03/25 03/03/25 14:27 15:21 Specimen Type ART ART Sample Site R Radial L Radial pH 7.47 H 7.42 Bicarbonate Actual 21.7 L 25.7 Total CO2 23 27 Base Excess -2 1 O2 Saturation 96 96 O2 % 50.0 ABG pCO2 29.8 L 40.1 ABG pO2 78 84 Jaylyn Test Positive Positive Respiration Rate 14 O2 Delivery Device Cannula Adult Vent Vent Mode Not entered AC Tidal Volume 400.0 POC PEEP 5 Radiography Diagnostic Testing: Clinical Impression(s) from Imaging Studies Chest X-Ray 03/03/25 14:45 IMPRESSION: The tip of the endotracheal tube is at the level of the woodrow. It should be pulled back approximately 2 cm. Reading Location[id number]Pelvis CT 03/03/25 15:45 IMPRESSION: Clinical correlation for mild UTI and/or cystitis. Genitourinary findings discussed above in detail. - Pulmonary parenchymal opacities to be correlated for aspiration/pneumonia as discussed above. - Nonspecific gastrointestinal findings. - Other incidental and nonemergent findings discussed above. Reading Location: [id number] Procedures Intubations Intubation Method: orotracheal Intubation Verification: Positive color change and Bilateral breath sounds confirmed Intubation Complications: no complications Discharge Plan Disposition Disposition: Acute Care Hospital [facility] Discharge Date/Time: 03/03/25 16:21 What to do if you have Problems For any increased pain, shortness of breath, bleeding, nausea or vomiting, chestpain, or any unexpected problems, contact your Primary Care Provider. Call [facility] ([phone]) or report tothe closest Emergency Room. Call 911 if necessary. 03/03/25 2307 Cosigner Signature (if applicable): CC: Dr. Peter Ellis MD ~ Signed ADDENDUM by Dr. Frieda Laurent MD on 03/04/25 at 0007 Critical care time 60 minutes performing procedures, discussing with family, discussing with consultants and direct patient care. 03/04/25 0007 Cosigner Signature (if applicable): cc: Dr. Peter Ellis MD ~* Signed [facility]09-04-2025 Consult note Author Anmol Farrell [facility] Note Date/Time March 03, 2025 8:05pm [facility] Medical Records Department [address] [place] [address] Pharmacokinetic/Renal -Consult 03/03/25 1759 MR#: [id number] Acct: [id number] Name: STEVE VIEIRA Rep #:[id number] : 1945 79 From: Anmol romo PCP: Dr. Peter Ellis MD Status:AD M IN Y Location: ICU ICU-1 Consult Antibiotic Management Pharmacy has been consulted to manage selected antibiotic: Vancomycin Type of Intervention Type of Consult: New start Suspected Infection Suspected Infection: Sepsis Prior Doses of Antibiotics Prior Doses of Antibiotics Received/Current Regimen: LD of 2000 mg given 03/03 @ 1744 Labs Labs: Sodium 135 mmol/L (133-145) 03/03/25 14:20 Potassium 3.9 mmol/L (3.3-5.1) 03/03/25 14:20 Chloride 101 mmol/L (98-108) 03/03/25 14:20 Carbon Dioxide 22.6 mmol/L (21.0-32.0) 03/03/25 14:20 Anion Gap 12 (5-15) 03/03/25 14:20 BUN 22 mg/dL (4-19) H 03/03/25 14:20 Creatinine 0.96 mg/dL (0.70-1.20) 03/03/25 14:20 Est GFR (MDRD) Non-Af 60 (>60) 03/03/25 14:20 BUN/Creatinine Ratio 23.4 RATIO (10-20) H 03/03/25 14:20 Glucose 214 mg/dL (70-99) H 03/03/25 14:20 Microbiology Microbiology: Microbiology 03/03/25 14:48 Mucosa - Nose SARS-CoV-2, Influenza & RSV (PCR) - Final Dosing Weight Weight used for dosin.9 kg Estimated Creatinine Clearance Estimated Creatinine Clearance: 44.4 Goal Trough Goal Trough: 15-20 mcg/mL Pharmacy Plan for Drug Dosing Pharmacy Plan for Drug Dosing: Pharmacy Service will continue to mNEW START IV VANCOMYCIN Consulting Physician: Twan Indication: Sepsis (PNA vs. UTI) Goal Trough: 15-20 SCr: 0.96 CrCl: 44.4 WBC: 13.5 Comments: DOSING WEIGHT: 60.9 kg Cultures: - Blood: pending - Urine: pending - Sputum: pending - MRSA PCR: pending Imaging: - ABD CT: Pulmonary parenchymal opacities to be correlated for aspiration/pneumonia Vancomycin Dose: 1250 mg Q24H with first dose 03/04/25 @ 1800 Pending Level: 03/06/25 @ 1730 Date/Time Labs Ordered Labs to be done on [date and time ordered]: 03/06/25 @ 1730 03/03/25 1800 <Electronically signed by Anmol Leigh> Date _ Anmol Farrell 03/03/252004 <Electronically signed by Desiree Trent MD> Cosigner Signature (if applicable): Date Desiree Trent MD CC: ~ Signed [facility] Work Phone: 1(613) 160-155309-04-2025 History and physical note Author Desiree Trent [facility] Note Date/Time March 03, 2025 8:03pm [facility] Medical Records Department [address] [place] [id number] H&P Exam - Hospitalist 03/03/25 1640 MR#: [id number] Acct: [id number] Name: STEVE VIEIRA Rep #:[id number] : 1945 79 From: Desiree Trent MD PCP: Dr. Peter Ellis MD Status:AD M IN Location: ICU ICU05-1 HPI - General General Date of Admission: 03/03/25 Date of Service: 03/03/25 Chief Complaint: Patient came in hypoxic HPI Narrative STEVE VIEIRA, is a 79-year-old female history of GERD, diabetes, depression, hypothyroidism presented to [facility] ED 03/03/25 dueto shortness of breath. In the ED initial temp 100, heart rate 131 and a blood pressure 130/67, respiratory rate 36 and pulse ox 90% on 10 L nasal cannula. Patient continued to deteriorate and was intubated and temperature went up to 102.6. In the ED patient's CBC with a white blood cell count 13.5, hemoglobin 10.4, CMP with a BUN of 22 and a creatinine of 0.96, glucose 214 and a total bili 2.53, AST 77, ALT 39 and alk phos 378. Lactic acid 3.4. Chest x-ray postintubation reported no acute process. Patient had a UA that was positive for nitrate and leuk esterase with white blood cells but did not report out any bacteria so CT of the abdomen was obtained and was pending. Hospitalist contacted for admission. History obtained per report as patient intubated and unable to participate in exam. At baseline patient ANO x 1 but this [facility] at [facility] patient was lethargic, had a temp of 101.2 and had an SpO2 of 65% so she was brought to the ED. In EMS on the way here she vomited 3 times. Her CODE STATUS was unclear regarding intubation so family was contacted and did want her intubated at the time. No family available at bedside to provide additional history. [facility] Medical History Diabetes Kidney stones Adult failure to thrive Hyperglycemia due to diabetes mellitus Acute dehydration Head injury Home Medications ?Medication ?Instructions ?Recorded ?Last Taken ?Type levothyroxine 50 mcg tablet 50 mcg PO .LEOPOLDO thyro id 06/07/14 12/06/23 History atorvastatin 40 mg tablet 40 mg PO QHS CHOLESTEROL 12/05/23 History escitalopram oxalate 10 mg tablet 10 mg PO DAILY DEPRE SS 05/28/19 12/06/23 History levothyroxine 25 mcg tablet 75 mcg PO .MWF thyroid 04/2212/06/23 History acetaminophen 325 mg tablet 650 mg (2 x 325 mg) PO Q6H PRN PRN 12/06/23 Unknown Rx Pain 1-10 Or Fever>100.7 #0 tabs melatonin 3 mg tablet 3 mg PO QHS PRN PRN Insomnia #0 12/06/23 12/05/23 Rx tabs menthol 0.44 %-zinc oxide 20.6 % 1 applic topical BID redness 12/06/23 12/06/23 History topical ointment (Calmoseptine) insulin lispro 100 unit/mL 5 unit (0.05 mL) subcut TID AC #0 mL 12/17/23 Unknown Rx subcutaneous pen (Humalog KwikPen (U-100) Insulin) magnesium citrate 300 ml PO DAILY PRN constipa tion 12/17/23 Unknown Rx #0 mL pantoprazole 20 mg tablet,delayed 20 mg PO BID #0 tabs 12/17/23 Unknown Rx release sennosides 8.6 mg-docusate sodium 1 tab PO BID #0 tabs 12/17/23 Unknown Rx 50 mg tablet (Stool Softener-Stimulant Laxative) ferrous sulfate 325 mg (65 mg 325 mg PO BID 03/03/25 U nknown History iron) tablet (FeroSul) insulin glargine 100 unit/mL (3 26 unit subcut QPM 10/22 Unknown History mL) subcutaneous pen (Lantus Solostar U-100 Insulin) insulin glargine 100 unit/mL (3 40 unit subcut .am 10/22 Unknown History mL) subcutaneous pen (Lantus Solostar U-100 Insulin) insulin lispro 100 unit/mL 1 sliding scale dose subcut .AC 03/03/25 Unknown History subcutaneous solution (Humalog U-100 Insulin) oxybutynin chloride 10 mg 10 mg PO DAILY 03/03/25 Unkn own History tablet,extended release 24 hr Allergy/AdvReac Type Severity Reaction Status Date / Time venlafaxine HCl (From Allergy Rash Verified 03/03/25 14:19 Effexor) meclizine AdvReac Other Verified 03/03/25 14:19 Surgical History History of cholecystectomy History of knee joint replacement H/O: section Social History (Updated 12/06/23 @ 16:[address] Rubin Cordova MD) household members: none Smoking Status: Never smoker alcohol intake: never substance use type: does not use ROS ROS Narrative Unable to obtain ROS secondary to mental status Vital Signs Vital Signs Vital Signs: 03/03/25 14:11 03/03/25 14:15 03/03/25 14:18 Temperature 100 F H 100 F H Temperature Source Oral Oral Pulse Rate 131 H 130 H Respiratory Rate 36 H 36 H Respiratory Effort Respiratory Depth Respiratory Pattern Blood Pressure 130/67 H 130/67 H Blood Pressure Mean 88 88 Pulse Ox 90 93 94 Oxygen Delivery Method Nasal Cannula Non-Rebreather Nasal Cannula Oxygen Flow Rate (L/min) 10 15 10 Fraction of Inspired Oxygen (FIO2) 03/03/25 14:20 03/03/25 14:31 03/03/25 14:32 Temperature Temperature Source Pulse Rate 100 Respiratory Rate 14 Respiratory Effort Normal Normal Respiratory Depth Shallow Shallow Respiratory Pattern Tachypnea Tachypnea Normal Blood Pressure Blood Pressure Mean Pulse Ox 94 Oxygen Delivery Method Nasal Cannula Oxygen Flow Rate (L/min) 10 Fraction of Inspired Oxygen (FIO2) 50 03/03/25 15:10 03/03/25 15:15 03/03/25 15:18 Temperature 102.6 F H Temperature Source Core Pulse Rate 122 H 121 H 120 H Respiratory Rate 14 Respiratory Effort Respiratory Depth Respiratory Pattern Blood Pressure 71/51 L 97/70 108/61 Blood Pressure Mean 57 79 76 Pulse Ox 96 Oxygen Delivery Method Mechanical Ventilator Oxygen Flow Rate (L/min) Fraction of Inspired Oxygen (FIO2) 03/03/25 15:20 03/03/25 15:22 03/03/25 15:30 Temperature 102.6 F H 102 F H Temperature Source Core Core Pulse Rate 121 H 120 H Respiratory Rate 14 14 Respiratory Effort Respiratory Depth Respiratory Pattern Blood Pressure 108/61 119/61 Blood Pressure Mean 76 80 Pulse Ox 96 96 Oxygen Delivery Method Mechanical Ventilator Mechanical Ventilator Oxygen Flow Rate (L/min) Fraction of Inspired Oxygen (FIO2) 60 03/03/25 16:00 03/03/25 16:20 Temperature 101.2 F H 101 F H Temperature Source Core Pulse Rate 113 H 112 H Respiratory Rate 14 17 Respiratory Effort Respiratory Depth Respiratory Pattern Blood Pressure 119/51 L 127/74 H Blood Pressure Mean 73 91 Pulse Ox 97 100 Oxygen Delivery Method Mechanical Ventilator Oxygen Flow Rate (L/min) Fraction of Inspired Oxygen (FIO2) Weight Weight: 84.6 kg Body Mass Index (BMI) 37.6 Physical Exam Narrative General: Intubated and sedated HEENT: Atraumatic, normocephalic Eyes: Eyes closed, no spontaneous opening Neck: Supple Respiratory: Mechanically ventilated Cardiovascular: Sinus tachycardia GI: Soft, nondistended Extremities: No peripheral edema Musculoskeletal: Presently sedated and not moving extremities spontaneously Neuro: Unable to participate in neuro exam secondary to intubated and sedated Skin: No rashes appreciated Psych: Unable to cooperate secondary to intubated and sedated Results Lab / Micro Data 03/03/25 14:20 03/03/25 14:20 Labs: Laboratory Results - last 24 hr 03/03/25 14:20: WBC 13.5 H, RBC 3.39 L, Hgb 10.4 L, Hct 32.8 L, MCV 96.8, MCH 30.7, MCHC 31.7 L, RDW Std Deviation 49.9 H, RDW Coeff of Nicholas 14.1, Plt Count 191, MPV 10.9, Immature Gran % (Auto) 0.500, Neut % (Auto) 95.4 H, Lymph % (Auto) 2.2 L, [place] % (Auto) 1.3, Eos % (Auto) 0.2, Baso % (Auto) 0.4, Absolute Neuts (auto) 12.9 H, Absolute Lymphs (auto) 0.30 L, Nucleated RBC % 0, Sodium 135, Potassium 3.9, Chloride 101, Carbon Dioxide 22.6, Anion Gap 12, BUN 22 H, Creatinine 0.96, Estim Creat Clear Calc 44.36 L, Est GFR (MDRD) Non-Af 60, BUN/Creatinine Ratio 23.4 H, Glucose 214 H, Lactic Acid 3.4 H*, Calcium 9.0, Total Bilirubin 2.53 H, AST 77 H, ALT 39 H, Alkaline Phosphatase 378 H, Troponin T High Sens 49 H, Total Protein 7.9, Albumin 3.7, Globulin 4.1, Albumin/GlobulinRatio 0.9 03/03/25 14:48: Urine Color Yellow, Urine Clarity Sl. Cloudy, Urine pH 5.0, Ur Specific [place] 1.015, Urine Protein 100 H, Urine Glucose (UA) Normal, Urine Ketones Negative, Urine Occult Blood 150 H, Urine Nitrite Positive H, Urine Bilirubin Negative, Urine Urobilinogen 1 H, Ur Leukocyte Esterase 500 H, Urine RBC 0 SEEN, Urine WBC >100 SEEN, Ur Squamous Epith Cells 0 SEEN, Urine Bacteria 0 SEEN, Urine Mucus 0 SEEN Micro: Microbiology 03/03/25 14:48 Mucosa - Nose SARS-CoV-2, Influenza & RSV (PCR) - Final ABG Data ABG results: ABG 03/03/25 03/03/25 14:27 15:21 Specimen Type ART ART Sample Site R Radial L Radial pH 7.47 H 7.42 Bicarbonate Actual 21.7 L 25.7 Total CO2 23 27 Base Excess -2 1 O2 Saturation 96 96 O2 % 50.0 ABG pCO2 29.8 L 40.1 ABG pO2 78 84 Jaylyn Test Positive Positive Respiration Rate 14 O2 Delivery Device Cannula Adult Vent Vent Mode Not entered AC Tidal Volume 400.0 POC PEEP 5 Imaging Radiology Impression Chest X-Ray 03/03/25 14:45 IMPRESSION: The tip of the endotracheal tube is at the level of the woodrow. It should be pulled back approximately 2 cm. Reading Location[id number] Assessment & Plan Assessment/Plan (1) Sepsis: (2) Acute hypoxic respiratory failure: PLAN: Plan # Sepsis suspect secondary to urinary versus pulmonary source -Patient presented tachycardic with heart rate of 131, temp of 102.6, tachypneicof 36 and hypoxic requiring ultimately mechanical ventilation, white blood cell count 13.5, lactic 3.4 and bilirubin 2.53 -Patient was transiently hypotensive with a pressure of 71/55 and a MAP of 57 which responded to titrating down sedation and IV fluids -Chest x-ray no acute process -UA with nitrite, leuk esterase, white blood cells though reported out no bacteria -CT abdomen ordered and pending given elevated liver function tests though that may just be due to her sepsis -Blood culture sent -Sputum culture sent after intubation -Urine culture sent -COVID/flu/RSV negative -Sending respiratory panel -Continue broad-spectrum antibiotics while awaiting culture and sensitivity dataespecially given unclear definitive source -Patient receiving 30 cc/kg IV fluids per sepsis protocol # Acute hypoxic respiratory failure -Requiring mechanical ventilation -Patient admitted to the ICU -Support Services Coordinator consult -X-ray unrevealing -Given her vomiting there was concern that maybe she aspirated, it is possible that this is not yet showed up on imaging -Patient to be on antibiotics as above -COVID/flu/RSV negative -Will check respiratory panel -Sputum culture was sent -Nebs ordered # Elevated troponin - Troponin of 49, suspect this is secondary to the above with patient's hypoxia and sepsis - Patient will be monitored on telemetry in ICU #Type 2 diabetes mellitus -Glucose checks and sliding scale insulin -Patient will be n.p.o., holding long-acting insulin and holding Premeal until patient able to eat or tube feeds initiated #GERD -Continue PPI #Depression/anxiety - Can resume Lexapro once patient extubated and tolerating p.o. #Hypothyroidism -Continue Synthroid #DVT ppx: Lovenox subcu Desiree Trent MD Sepsis Attestation Sepsis Alert: Yes Sepsis Attestation: Agree w/Sepsis Date exam was performed: 03/03/25 Time exam was performed: 15:30 Possible Source of Sepsis: Pulmonary, GI tract/intra-abdominal and Genitourinary Sepsis Organ Dysfunction Criteria Present: Acute Respiratory Failure (New need for BiPAP/CPAP or MV), Total Bilirubin > 2 mg/dl, Lactic Acid > 2 mmol/L and New/Unexplained change in mental status Fluid Resuscitation Fluid resuscitation indicated?: Yes Fluid Resuscitation ordered: 30 ml/kg fluid bolus ordered Amount of fluid ordered: 2,500 Charges/Coding Visit Charges Inpatient E&M: 15624 Init Hosp L3 03/03/25 1650 <Electronically signed by Desiree Trent MD> Cosigner Signature (if applicable): CC: Dr. Peter Ellis MD; Dr. Desiree Trent MD~ Signed ADDENDUM by Dr. Desiree Trent MD on 03/03/25 at 2002 Sepsis Attestation Sepsis Note Date exam was performed: 03/03/25 Time exam was performed: 18:45 Sepsis Attestation: Sepsis re-evaluation was performed Response to fluids: Fluid responsive hypotension 03/03/252002<Electronically signed by Desiree Trent MD> Cosigner Signature (if applicable): cc: Dr. Peter Ellis MD; Dr. Desiree Trent MD ~* Signed [facility] Work Phone: 1(604) 183-191109-04-2025 Progress note Author Desiree Trent [facility] Note Date/Time March 03, 2025 6:09pm [facility] Medical Records Department [address] [place] [id number] Progress Note - Hospitalist 03/03/25 1809 MR#: [id number] Acct: [id number] Name: STEVE VIEIRA Rep #:[id number] : 1945 79 From: Desiree Trent MD PCP: Dr. Peter Ellis MD Status:AD M IN Location: ICU ICU05-[address] scan suspicious for both aspiration pneumonia and possible UTI, will continuecover broadly as above while waiting further culture and sensitivity data and clinical progress. There were nonspecific GI findings of unclear significance but suspect patient's presentation is due to a combination of the above 03/03/251808 <Electronically signed by Desiree Trent MD> Cosigner Signature (if applicable): CC: ~ Signed [facility] Work Phone: 1(271) 581-280909-04-2025 Consult note [facility] Medical Records Department [address] [place] [address] Pharmacokinetic/Renal -Consult 03/03/25 175 MR#: [id number] Acct: [id number] Name: STEVE VIEIRA Rep #:[id number] : 1945 79 From: Anmol romo PCP: Dr. Peter Ellis MD Status:AD M IN Y Location: ICU ICU05-1 Consult Antibiotic Management Pharmacy has been consulted to manage selected antibiotic: Vancomycin Type of Intervention Type of Consult: New start Suspected Infection Suspected Infection: Sepsis Prior Doses of Antibiotics Prior Doses of Antibiotics Received/Current Regimen: LD of 2000 mg given 03/03 @ 1744 Labs Labs: Sodium 135 mmol/L (133-145) 03/03/25 14:20 Potassium 3.9 mmol/L (3.3-5.1) 03/03/25 14:20 Chloride 101 mmol/L (98-108) 03/03/25 14:20 Carbon Dioxide 22.6 mmol/L (21.0-32.0) 03/03/25 14:20 Anion Gap 12 (5-15) 03/03/25 14:20 BUN 22 mg/dL (4-19) H 03/03/25 14:20 Creatinine 0.96 mg/dL (0.70-1.20) 03/03/25 14:20 Est GFR (MDRD) Non-Af 60 (>60) 03/03/25 14:20 BUN/Creatinine Ratio 23.4 RATIO (10-20) H 03/03/25 14:20 Glucose 214 mg/dL (70-99) H 03/03/25 14:20 Microbiology Microbiology: Microbiology 03/03/25 14:48 Mucosa - Nose SARS-CoV-2, Influenza & RSV (PCR) - Final Dosing Weight Weight used for dosin.9 kg Estimated Creatinine Clearance Estimated Creatinine Clearance: 44.4 Goal Trough Goal Trough: 15-20 mcg/mL Pharmacy Plan for Drug Dosing Pharmacy Plan for Drug Dosing: Pharmacy Service will continue to mNEW START IV VANCOMYCIN Consulting Physician: Twan Indication: Sepsis (PNA vs. UTI) Goal Trough: 15-20 SCr: 0.96 CrCl: 44.4 WBC: 13.5 Comments: DOSING WEIGHT: 60.9 kg Cultures: - Blood: pending - Urine: pending - Sputum: pending - MRSA PCR: pending Imaging: - ABD CT: Pulmonary parenchymal opacities to be correlated for aspiration/pneumonia Vancomycin Dose: 1250 mg Q24H with first dose 03/04/25 @ 1800 Pending Level: 03/06/25 @ 1730 Date/Time Labs Ordered Labs to be done on [date and time ordered]: 03/06/25 @ 1730 03/03/25 1800 ebly> Date _ Anmol Farrell 03/03/252004 > Wendyigner Signature (if applicable): Date Desiree Trent MD CC: ~ Signed [facility]09-04-2025 History and physical note [facility] Medical Records Department [address] [place] [address] H&P Exam - Hospitalist 03/03/25 1640 MR#: [id number] Acct: [id number] Name: STEVE VIEIRA Rep #:[id number] : 1945 79 From: Desiree Trent MD PCP: Dr. Peter Ellis MD Status:AD M IN Location: ICU ICU05-1 HPI - General General Date of Admission: 03/03/25 Date of Service: 03/03/25 Chief Complaint: Patient came in hypoxic HPI Narrative STEVE VIEIRA, is a 79-year-old female history of GERD, diabetes, depression, hypothyroidism presented to [facility] ED 03/03/25 dueto shortness of breath. In the ED initial temp 100, heart rate 131 and a blood pressure 130/67, respiratory rate 36 and pulse ox 90% on 10 L nasal cannula. Patient continued to deteriorate and was intubated and temperature went up to 102.6. In the ED patient's CBC with a white blood cell count 13.5, hemoglobin 10.4, CMP with a BUN of 22 and a creatinine of 0.96, glucose 214 and a total bili 2.53, AST 77, ALT 39 and alk phos 378. Lactic acid 3.4. Chest x-ray postintubation reported no acute process. Patient had a UA that was positive for nitrate and leuk esterase with white blood cells but did not report out any bacteria so CT of the abdomen was obtained and was pending. Hospitalist contacted for admission. History obtained per report as patient intubated and unable to participate in exam. At baseline patient ANO x 1 but [facility] patient was lethargic, had a temp of 101.2 and had an SpO2 of 65% so she was broughtto the ED. In EMS on the way here she vomited 3 times. Her CODE STATUS was unclear regarding intubation so family was contacted and did want her intubated at the time. No family available at bedside to provide additional history. [facility] Medical History Diabetes Kidney stones Adult failure to thrive Hyperglycemia due to diabetes mellitus Acute dehydration Head injury Home Medications ?Medication ?Instructions ?Recorded ?Last Taken ?Type levothyroxine 50 mcg tablet 50 mcg PO .MICHELLESU thyro id 06/07/14 12/06/23 History atorvastatin 40 mg tablet 40 mg PO QHS CHOLESTEROL 12/05/23 History escitalopram oxalate 10 mg tablet 10 mg PO DAILY DEPRE SS 05/28/19 12/06/23 History levothyroxine 25 mcg tablet 75 mcg PO .MWF thyroid 04/2212/06/23 History acetaminophen 325 mg tablet 650 mg (2 x 325 mg) PO Q6H PRN PRN 12/06/23 Unknown Rx Pain 1-10 Or Fever>100.7 #0 tabs melatonin 3 mg tablet 3 mg PO QHS PRN PRN Insomnia #0 12/06/23 12/05/23 Rx tabs menthol 0.44 %-zinc oxide 20.6 % 1 applic topical BID redness 12/06/23 12/06/23 History topical ointment (Calmoseptine) insulin lispro 100 unit/mL 5 unit (0.05 mL) subcut TID AC #0 mL 12/17/23 Unknown Rx subcutaneous pen (Humalog KwikPen (U-100) Insulin) magnesium citrate 300 ml PO DAILY PRN constipa tion 12/17/23 Unknown Rx #0 mL pantoprazole 20 mg tablet,delayed 20 mg PO BID #0 tabs 12/17/23 Unknown Rx release sennosides 8.6 mg-docusate sodium 1 tab PO BID #0 tabs 12/17/23 Unknown Rx 50 mg tablet (Stool Softener-Stimulant Laxative) ferrous sulfate 325 mg (65 mg 325 mg PO BID 03/03/25 U nknown History iron) tablet (FeroSul) insulin glargine 100 unit/mL (3 26 unit subcut QPM 10/22 Unknown History mL) subcutaneous pen (Lantus Solostar U-100 Insulin) insulin glargine 100 unit/mL (3 40 unit subcut .am 10/22 Unknown History mL) subcutaneous pen (Lantus Solostar U-100 Insulin) insulin lispro 100 unit/mL 1 sliding scale dose subcut .AC 03/03/25 Unknown History subcutaneous solution (Humalog U-100 Insulin) oxybutynin chloride 10 mg 10 mg PO DAILY 03/03/25 Unkn own History tablet,extended release 24 hr Allergy/AdvReac Type Severity Reaction Status Date / Time venlafaxine HCl (From Allergy Rash Verified 03/03/25 14:19 Effexor) meclizine AdvReac Other Verified 03/03/25 14:19 Surgical History History of cholecystectomy History of knee joint replacement H/O: section Social History (Updated 12/06/23 @ 16:[address] Rubin Cordova MD) household members: none Smoking Status: Never smoker alcohol intake: never substance use type: does not use ROS ROS Narrative Unable to obtain ROS secondary to mental status Vital Signs Vital Signs Vital Signs: 03/03/25 14:11 03/03/25 14:15 03/03/25 14:18 Temperature 100 F H 100 F H Temperature Source Oral Oral Pulse Rate 131 H 130 H Respiratory Rate 36 H 36 H Respiratory Effort Respiratory Depth Respiratory Pattern Blood Pressure 130/67 H 130/67 H Blood Pressure Mean 88 88 Pulse Ox 90 93 94 Oxygen Delivery Method Nasal Cannula Non-Rebreather Nasal Cannula Oxygen Flow Rate (L/min) 10 15 10 Fraction of Inspired Oxygen (FIO2) 03/03/25 14:20 03/03/25 14:31 03/03/25 14:32 Temperature Temperature Source Pulse Rate 100 Respiratory Rate 14 Respiratory Effort Normal Normal Respiratory Depth Shallow Shallow Respiratory Pattern Tachypnea Tachypnea Normal Blood Pressure Blood Pressure Mean Pulse Ox 94 Oxygen Delivery Method Nasal Cannula Oxygen Flow Rate (L/min) 10 Fraction of Inspired Oxygen (FIO2) 50 03/03/25 15:10 03/03/25 15:15 03/03/25 15:18 Temperature 102.6 F H Temperature Source Core Pulse Rate 122 H 121 H 120 H Respiratory Rate 14 Respiratory Effort Respiratory Depth Respiratory Pattern Blood Pressure 71/51 L 97/70 108/61 Blood Pressure Mean 57 79 76 Pulse Ox 96 Oxygen Delivery Method Mechanical Ventilator Oxygen Flow Rate (L/min) Fraction of Inspired Oxygen (FIO2) 03/03/25 15:20 03/03/25 15:22 03/03/25 15:30 Temperature 102.6 F H 102 F H Temperature Source Core Core Pulse Rate 121 H 120 H Respiratory Rate 14 14 Respiratory Effort Respiratory Depth Respiratory Pattern Blood Pressure 108/61 119/61 Blood Pressure Mean 76 80 Pulse Ox 96 96 Oxygen Delivery Method Mechanical Ventilator Mechanical Ventilator Oxygen Flow Rate (L/min) Fraction of Inspired Oxygen (FIO2) 60 03/03/25 16:00 03/03/25 16:20 Temperature 101.2 F H 101 F H Temperature Source Core Pulse Rate 113 H 112 H Respiratory Rate 14 17 Respiratory Effort Respiratory Depth Respiratory Pattern Blood Pressure 119/51 L 127/74 H Blood Pressure Mean 73 91 Pulse Ox 97 100 Oxygen Delivery Method Mechanical Ventilator Oxygen Flow Rate (L/min) Fraction of Inspired Oxygen (FIO2) Weight Weight: 84.6 kg Body Mass Index (BMI) 37.6 Physical Exam Narrative General: Intubated and sedated HEENT: Atraumatic, normocephalic Eyes: Eyes closed, no spontaneous opening Neck: Supple Respiratory: Mechanically ventilated Cardiovascular: Sinus tachycardia GI: Soft, nondistended Extremities: No peripheral edema Musculoskeletal: Presently sedated and not moving extremities spontaneously Neuro: Unable to participate in neuro exam secondary to intubated and sedated Skin: No rashes appreciated Psych: Unable to cooperate secondary to intubated and sedated Results Lab / Micro Data 03/03/25 14:20 03/03/25 14:20 Labs: Laboratory Results - last 24 hr 03/03/25 14:20: WBC 13.5 H, RBC 3.39 L, Hgb 10.4 L, Hct 32.8 L, MCV 96.8, MCH 30.7, MCHC 31.7 L, RDW Std Deviation 49.9 H, RDW Coeff of [place] 14.1, Plt Count 191, MPV 10.9, Immature Gran % (Auto) 0.500, Neut % (Auto) 95.4 H, Lymph % (Auto) 2.2 L, [place] % (Auto) 1.3, Eos % (Auto) 0.2, Baso % (Auto) 0.4, Absolute Neuts (auto) 12.9 H, Absolute Lymphs (auto) 0.30 L, Nucleated RBC % 0, Sodium 135, Potassium 3.9, Chloride 101, Carbon Dioxide 22.6, Anion Gap 12, BUN 22 H, Creatinine 0.96, Estim Creat Clear Calc 44.36 L, Est GFR (MDRD) Non-Af 60, BUN/Creatinine Ratio 23.4 H, Glucose 214 H, Lactic Acid 3.4 H*, Calcium 9.0, Total Bilirubin 2.53 H, AST 77 H, ALT 39 H, Alkaline Phosphatase 378 H, Troponin T High Sens 49 H, Total Protein 7.9, Albumin 3.7, Globulin 4.1, Albumin/GlobulinRatio 0.9 03/03/25 14:48: Urine Color Yellow, Urine Clarity Sl. Cloudy, Urine pH 5.0, Ur Specific [place] 1.015, Urine Protein 100 H, Urine Glucose (UA) Normal, Urine Ketones Negative, Urine Occult Blood 150 H, Urine Nitrite Positive H, Urine Bilirubin Negative, Urine Urobilinogen 1 H, Ur Leukocyte Esterase 500 H, Urine RBC 0 SEEN, Urine WBC >100 SEEN, Ur Squamous Epith Cells 0 SEEN, Urine Bacteria 0 SEEN, Urine Mucus 0 SEEN Micro: Microbiology 03/03/25 14:48 Mucosa - Nose SARS-CoV-2, Influenza & RSV (PCR) - Final ABG Data ABG results: ABG 03/03/25 03/03/25 14:27 15:21 Specimen Type ART ART Sample Site R Radial L Radial pH 7.47 H 7.42 Bicarbonate Actual 21.7 L 25.7 Total CO2 23 27 Base Excess -2 1 O2 Saturation 96 96 O2 % 50.0 ABG pCO2 29.8 L 40.1 ABG pO2 78 84 Jaylyn Test Positive Positive Respiration Rate 14 O2 Delivery Device Cannula Adult Vent Vent Mode Not entered AC Tidal Volume 400.0 POC PEEP 5 Imaging Radiology Impression Chest X-Ray 03/03/25 14:45 IMPRESSION: The tip of the endotracheal tube is at the level of the woodrow. It should be pulled back approximately 2 cm. Reading Location[id number] Assessment & Plan Assessment/Plan (1) Sepsis: (2) Acute hypoxic respiratory failure: PLAN: Plan # Sepsis suspect secondary to urinary versus pulmonary source -Patient presented tachycardic with heart rate of 131, temp of 102.6, tachypneicof 36 and hypoxic requiring ultimately mechanical ventilation, white blood cell count 13.5, lactic 3.4 and bilirubin 2.53 -Patient was transiently hypotensive with a pressure of 71/55 and a MAP of 57 which responded to titrating down sedation and IV fluids -Chest x-ray no acute process -UA with nitrite, leuk esterase, white blood cells though reported out no bacteria -CT abdomen ordered and pending given elevated liver function tests though that may just be due to her sepsis -Blood culture sent -Sputum culture sent after intubation -Urine culture sent -COVID/flu/RSV negative -Sending respiratory panel -Continue broad-spectrum antibiotics while awaiting culture and sensitivity dataespecially given unclear definitive source -Patient receiving 30 cc/kg IV fluids per sepsis protocol # Acute hypoxic respiratory failure -Requiring mechanical ventilation -Patient admitted to the ICU -Support Services Coordinator consult -X-ray unrevealing -Given her vomiting there was concern that maybe she aspirated, it is possible that this is not yetshowed up on imaging -Patient to be on antibiotics as above -COVID/flu/RSV negative -Will check respiratory panel -Sputum culture was sent -Nebs ordered # Elevated troponin - Troponin of 49, suspect this is secondary to the above with patient's hypoxia and sepsis - Patient will be monitored on telemetry in ICU #Type 2 diabetes mellitus -Glucose checks and sliding scale insulin -Patient will be n.p.o., holding long-acting insulin and holding Premeal until patient able to eat or tube feeds initiated #GERD -Continue PPI #Depression/anxiety - Can resume Lexapro once patient extubated and tolerating p.o. #Hypothyroidism -Continue Synthroid #DVT ppx: Lovenox subcu Desiree Trent MD Sepsis Attestation Sepsis Alert: Yes Sepsis Attestation: Agree w/Sepsis Date exam was performed: 03/03/25 Time exam was performed: 15:30 Possible Source of Sepsis: Pulmonary, GI tract/intra-abdominal and Genitourinary Sepsis Organ Dysfunction Criteria Present: Acute Respiratory Failure (New need for BiPAP/CPAP or MV), Total Bilirubin > 2 mg/dl, Lactic Acid > 2 mmol/L and New/Unexplained change in mental status Fluid Resuscitation Fluid resuscitation indicated?: Yes Fluid Resuscitation ordered: 30 ml/kg fluid bolus ordered Amount of fluid ordered: 2,500 Charges/Coding Visit Charges Inpatient E&M: 76796 Init Hosp L3 03/03/25 1650 Cosigner Signature (if applicable): CC: Dr. Peter Ellis MD; Dr. Desiree Trent MD~ Signed ADDENDUM by Dr. Desiree Trent MD on 03/03/25 at 2002 Sepsis Attestation Sepsis Note Date exam was performed: 03/03/25 Time exam was performed: 18:45 Sepsis Attestation: Sepsis re-evaluation was performed Response to fluids: Fluid responsive hypotension 03/03/252002 Cosigner Signature (if applicable): cc: Dr. Peter Ellis MD; Dr. Desiree Trent MD ~* Signed [facility]09-04-2025 Progress note [facility] Medical Records Department [address] [place] [address] Progress Note - Hospitalist 03/03/25 1809 MR#: [id number] Acct: [id number] Name: STEVE VIEIRA Rep #:[id number] : 1945 79 From: Desiree Trent MD PCP: Dr. Peter Ellis MD Status:AD M IN Location: ICU ICU05- Hospitalist Note CT scan suspicious for both aspiration pneumonia and possible UTI, will continuecover broadly as above while waiting further culture and sensitivity data and clinical progress. There were nonspecificGI findings of unclear significance but suspect patient's presentation is due to a combination of the above 03/03/251808 Cosigner Signature (if applicable): CC: ~ Signed [facility]09-04-2025 Evaluation note* Diagnosis Onset Date Resolution Status Admit Date Acute hypoxic respiratory failure acute March 03, 2 025 4:08pm Bacteremia due to Gram-negat patrizia bacteria acute March 03, 2 025 4:08pm Hyperlipidemia acute March 03, 2025 4:08pm Sepsis acute March 03, 2025 4:08pm [facility] Work Phone: 1(754) 526-296809-04-2025 Evaluation note* Diagnosis Onset Date Resolution Status Admit Date Acute hypoxic respiratory failure resolved March 03, 2 025 4:08pm Bacteremia due to Gram-negative bacteria resolved March 03, 2025 4:08pm Hyperlipidemia resolved March 03, 2025 4:08pm Sepsis resolved March 03, 2025 4:08pm [facility] Work Phone: 1(183) 844-462809-04-2025 Radiology Diagnostic study note [facility] Imaging Services [address] [place] [id number] Abdomen/Pelvis W IV Cont ONLY MR#: [id number] Acct: [id number] Name: STEVE VIEIRA Rep #: [id number] : 1945 F 79 From: Erin Serrato MD PCP: Dr. Peter Ellis MD Status: AD M IN Study:Abdomen/Pelvis W IV Cont ONLY Date of E xam: 03/03/25 Exam# [id number] Ordering Dr: Carlo Laurent MD PROCEDURE: ABDOMEN/PELVIS W IV CONT ONLY 03/03/2025 REASON FOR EXAM: TRANSAMINITIS ELEVATED TOTAL BILI TECHNIQUE: Procedure Code: CTABDPELIV Modality: CT Procedure: ABDOMEN/PELVIS W IV CONT ONLY Coronal and Sagittal reconstruction series were provided. CONTRAST: Please see CT VOLUME: Please see CT mL One or more dose reduction techniques were used (e.g., Automated exposure control, adjustment of the mA and/or kV according to patient size, use of iterative reconstruction technique. RADIATION DOSE SUMMARY: CTDlvol: Please see CT mGy DLP: Please see CT mGycm COMPARISON: None FINDINGS: Lung bases: Trace pleural effusions at the lung bases. Confluent airspace opacity with air bronchograms involving the right lower lobe to be correlated for aspiration/pneumonia versus compressive atelectasis. Correlation with complete chest radiograph and radiographic follow-up is advised to confirm resolution. This is incompletely assessed. Mild dependent atelectasis or mild pneumonia at the visualized left lung base. Liver: Hepatic length is 15.6 cm. Hepatic attenuation is consistent with steatosis. There is mild undulation of the surface of the liver consistent with mild changes of cirrhosis. Gallbladder/biliary: The gallbladder is not visualized. No significant biliary dilation. Pancreas: No pancreatic inflammation. No pancreatic ductal dilation. There is slight heterogeneity of pancreatic parenchyma of indeterminate significance. Spleen: Mild splenomegaly at 15 cm in diameter. Adrenals: The adrenal glands are within normal limits. Kidneys/ureters: The kidneys enhance symmetrically without hydronephrosis. Nonobstructive caliceal calculi seen bilaterally. There is mild urothelial enhancement ocod-aidhdfh-vjyh-right renal pelvis. This could be seenwith mild urinary tract infection. Correlation with urinalysis and culture for confirmation. No imaging evidence to suggest pyelonephritis. Gastrointestinal: The visualized distal esophagus appears slightly thick-walled. Clinical correlation for mild distalesophagitis. Tiny gas containing hiatal hernia. Transesophageal catheter terminates within the stomach. The stomach is not sufficiently distended to evaluate wall thickening. If thereare gastric symptomsconsider upper GI for complete assessment. No appearance of a complete bowel obstruction. Nonspecific fluid and gas- filledloops of small bowel. No focal mesenteric inflammation. Small nonspecific mesenteric lymph nodes. Portions of the colon and rectum appears slightly thick-walled. Clinical correlation for mild proctocolitis versus artifact from insufficient distention. No pericolonic inflammation. No evidence of acute diverticulitis. Appendix: The appendix is not identified. No secondary inflammation is seen at the cecal apex. Peritoneal/retroperitoneal: No free intraperitoneal air. No free fluid is seen. Vascular: No abdominal aortic aneurysm, dissection or retroperitoneal hemorrhage. Mild appearing atherosclerosis. Lymph nodes: No pathologic enlarged lymphadenopathy by size criteria. Urinary bladder: The urinary bladder is not diagnostically assessed as it is decompressed by a Bray catheter. Any bladder symptoms to be correlated clinically. If there are bladder symptoms, consider cystoscopy or cystogram for completeassessment. Reproductive: Retroverted uterus measuring 4.8 cm in length. The endometrial complex is not identified by this technique. The ovaries are not conclusively identified. No dominant cystic adnexal mass seen. If there are pelvic symptoms consider ultrasound. Soft tissues: No soft tissue hematoma or soft tissue emphysema. Small fat containing left inguinal hernia. Osseous: Scoliosis and degenerative changes of the spine. No acute osseous injury is seen. CT/Abdomen/Pelvis W IV Cont ONLY IMPRESSION: Clinical correlation for mild UTI and/or cystitis. Genitourinary findings discussed above in detail. - Pulmonary parenchymal opacities to be correlated for aspiration/pneumonia as discussed above. - Nonspecific gastrointestinal findings. - Other incidental and nonemergent findings discussed above. Reading Location: [facility] CC: Dr. Frieda Laurent MD; Dr. Peter Ellis MD ~ Buildings Painter: Signed [facility]09-04-2025 Radiology Diagnostic study note [facility] Imaging Services [address] [place] [address]61 Chest 1 View (Portable) MR#: [id number] Acct: [id number] Name: STEVE VIEIRA Rep #: [id number] : 1945 F 79 From: Misha Toth MD PCP: Dr. Peter lElis MD Status: RE G ER Study:Chest 1 View (Portable) Date of Exam: 03/03/25 Exam# [id number] Ordering Dr: Carlo Laurent MD PROCEDURE: CHEST 1 VIEW (PORTABLE) 03/03/2025 REASON FOR EXAM: POST INTUBATION TECHNIQUE: Frontal view of the chest. COMPARISON: Prior study dated December 02, 2023. FINDINGS: Hardware: Endotracheal tube is seen with the tip at woodrow. It should be pulledback approximately 2cm. Orogastric tube is seen with the tip [...] pulled back approximately 2 cm. Reading [id number] CC: Dr. Frieda Laurent MD; Dr. Peter Ellis MD ~ Buildings Painter: Signed [facility]06-06-2024 Telephone encounter Note* Telephone Encounter - Renetta Abernathy LPN - 12/04/2023 2:09 PM EDT Pt has been admitted to [facility]. See ER and H&P note. [facility]06-06-2024 Miscellaneous Notes* Telephone Encounter - Renetta Abernathy LPN - 12/04/2023 2:09 PM EDT Pt has been admitted to [facility]. See ER and H&P note. * Telephone Encounter - Steve Aaron - 12/03/2023 9:42 AM EDT 1st call attempt, left vm * Telephone Encounter - Peter Ellis MD - 11/28/2023 3:19 PM EDT Let me know if needs a referral. I don't think Medicare requires a referral * Telephone Encounter - Loraien Johnson LPN - 11/28/2023 1:04 PM EDT Spoke with patient and she is not opposed to seeing Mitzy Neves. Please call patient to schedule. Does this require a referral to see him? * Telephone Encounter - Peter Ellis MD - 11/26/2023 8:17 PM EDT Have patient come in for DM teaching--see if can get in with family living educator or [employer] to help with use of CGM as well as help with DM education. * Telephone Encounter - Alta Ortiz LPN - 11/25/2023 3:43 PM EDT Naye with [facility] calls to report that pt was prescribed Freestyle Pilar 3 reader and sensors. Naye reports they sent pt one of the sensor rx and pt told Naye that she has not begun to use Pilar 3 because she has no idea how to use it. Naye wanted pcp to be aware of this and is asking ifpt is going to have someone that will be helping pt. Alta Ortiz LPN documented [facility] encounter[facility] Telephone encounter Note * Telephone Encounter - Steve Aaron - 12/03/2023 9:42 AM EDT 1st call attempt, left vm [facility]05-31-2024 Telephone encounter Note* Telephone Encounter - Peter Ellis MD - 11/28/2023 3:19 PM EDT Let me know if needs a referral. I don't think Medicare requires a referral [facility]05-31-2024 Telephone encounter Note* Telephone Encounter - Loraine Johnson LPN - 11/28/2023 1:04 PM EDT Spoke with patient and she is not opposed to seeing Mitzy Neves. Please call patient to schedule. Does this require a referral to see him? [facility]05-29-2024 Telephone encounter Note* Telephone Encounter - Peter Ellis MD - 11/26/2023 8:17 PM EDT Have patient come in for DM teaching--see if can get in with family living educator or [employer] to help with use of CGM as well as help with DM education. [facility]05-28-2024 Telephone encounter Note* Telephone Encounter - Alta Ortiz LPN - 11/25/2023 3:43 PM EDT Naye with [facility] calls to report that pt was prescribed Freestyle Pilar 3 reader and sensors. Naye reports they sent pt one of the sensor rx and pt told Naye that she has not begun to use Pilar 3 because she has no idea how to use it. Naye wanted pcp to be aware of this and is asking ifpt is going to have someone that will be helping pt. Alta Ortiz LPN [facility]05-23-2024 Telephone encounter Note* Telephone Encounter - Sherwin Che MSW - 11/20/2023 4:00 PM EDT Sw spoke with patient in regards to asking son Salomón to reach out to TREVA Wang. Abbi says she can tell Salomón, but she will call Felipe herself to discuss home care service needs. Abbi read TREVA Hernandez direct number and patient notes that she will reach out to TREVA Wang for assistance. [facility]05-23-2024 Miscellaneous Notes* Telephone Encounter - Sherwin Che MSW - 11/20/2023 4:00 PM EDT Lesli spoke with patient in regards to asking son Salomón to reach out to TREVA Wang. Abbi says she can tell Salomón, but she will call Felipe herself to discuss home care service needs. Abbi read TREVA Hernandez direct number and patient notes that she will reach out to TREVA Wang for assistance. * Telephone Encounter - Sherwin Che MSW - 11/19/2023 12:41 PM EDT Lesli spoke with TREVA Wang and she reports that patient guardianship application was never submittedto court. Patient son Salomón did not sign [...] and told her that he was working andhelping patient set up supportive home services. Lesli will reach back out to patient and request that she call her son Salomón for him to connect with TREVA Wang in regards to any current service needs that patient would need set up in the home. * Telephone Encounter - Sherwin Che MSW - 11/14/2023 9:53 AM EDT Lesli left message for patient to return SW call to discuss home care needs. Lesli does not see any mention of status of guardianship appointment for patient. Lesli will discuss further with patient and when she returns Sw call. documented in this encounterAv[facility] Telephone encounter Note * Telephone Encounter - Sherwin Che MSW - 11/19/2023 12:41 PM EDT Lesli spoke with TREVA Wang and she reports that patient guardianship application was never submittedto court. Patient son Salomón did not sign [...] and told her that he was working andhelping patient set up supportive home services. Lesli will reach back out to patient and request that she call her son Salomón for him to connect with TREVA Wang in regards to any current service needs that patient would need set up in the home. [facility]05-17-2024 Telephone encounter Note* Telephone Encounter - Sherwin Che MSW - 11/14/2023 9:53 AM EDT Lesli left message for patient to return SW call to discuss home care needs. Lesli does not see any mention of status of guardianship appointment for patient. Lesli will discuss further with patient and when she returns Sw call. [facility]05-17-2024 Telephone encounter Note* Telephone Encounter - Sharon Mayer RN - 11/14/2023 9:16 AM EDT Faxed completed signed last OV note from 11/12/23 to PA Department with [employer] fax # [phone]. [facility]05-17-2024 Miscellaneous Notes* Telephone Encounter - Sharon Mayer RN - 11/14/2023 9:16 AM EDT Faxed completed signed last OV note from 11/12/23 to PA Department with [employer] fax # [phone]. * Telephone Encounter - Loan Johnston MA - 11/13/2023 3:32 PM EDT Faxed office notes/A1c values with additonal question form Loan Johnston MA * Telephone Encounter - Sharon Mayer RN - 11/13/2023 11:49 AM EDT Ethan with the PA Department with [employer] called and reports they need the notes regarding the Free Style Pilar. I let him know that they needed to be signed and as soon as the provider does this we would fax them to # [phone]. documented in this encounterAvita [facility]05-17-2024 NoteHNO ID: [id number] Author: ORIN SOSA APRN.MOLDER Service: ? Author Type: Nurse Practitioner Type: Progress Notes Filed: 11/14/2023 07:13 Note Text: Sherwin, I filled out the paper work for emergency guardianship and Felipe was going to take over from there. You are correct, the son was willing to be guardian and APS was going to help facilitate that.[facility] 11-14-2023 History of Present illness Narrative* Orin Sosa APRN.MOLDER - 11/14/2023 7:12 AM EDT Sherwin, I filled out the paper work for emergency guardianship and Felipe was going to take over from there. You are correct, the son was willing to be guardian and APS was going to help facilitate that. * Peter Ellis MD - 11/12/2023 2:29 PM EDT This note was created using Eyepicter. Subjective Steve Vieira is a 78 year old female. Patient presents with: F/U 4 month SUBJECTIVE: Steve Vieira is a 78 year old year old lady here today for 4 month follow up appointmentfor review of medical conditions. Vision bad since was in hospital. Feels lost Cannot think clearly. Memory issues. Has issues with transportation. Someone helped bring her in for her appointment and dropped her off. Does not know who they were.She was walking from home to her appointment. Eats [employer] and [employer]. Has cat. States "trying to " Was at hospital then went to [facility] [...] wants her to move where they are ([place]). Has a friend who lives [place]--prefers to move there. Kids were here after when she was transferred to [facility] then had to go back to their homes. Not sure about her meds but gets from [facility]. Wants [facility] so can check sugars. Feet completely numb--chronic. [...] subcutaneously one time a week. Gets through [employer] PAP. levothyroxine (SYNTHROID) 25 mcg tablet Take 1 tablet by mouth every Friday,Friday,Friday. Take on empty stomach. For thyroid. Add to the levothyroxine 50 mcg once daily dosing but just on Fri-Fri-Fri empagliflozin (JARDIANCE) 25 mg tablet Take 1 tablet by mouth daily with breakfast. Gets through [email or web address] PAP. ferrous sulfate 325 mg (65 mg [...] Lymph 1.00 - 4.00 k/uL 1.20 1.23 [place]% % 6.4 7.8 Abs [place] <0.87 k/uL 0.34 0.36 Eosin% % 1.7 [...] 2 diabetes mellitus with hyperglycemia (HCC) E11.65 Blood- Glucose Meter,Continuous (FREESTYLE PILAR 3 READER) [facility] Blood-Glucose Sensor (FREESTYLE PILAR 3 SENSOR) julisa Needs CGM so can make better decisions about meals and to help guide medication adjustments. 2. Urinary incontinence without sensory awareness N39.42 3. Weakness R53.1 Multifactorial. Out of control DM contributes. Monitor for now. Consider PT. May need to be in assisted living or fci if not adequate help to stay home [...] to get enough help to stay in [place] home. Options of living closer to family or a friend as noted in HPI, but suspect she will not be able to continue living independently given her health issues and frequent falls. Peter Ellis MD documented in this encounterAv[facility]05-[facility] Telephone encounter Note * Telephone Encounter - Loan Johnston MA - 11/13/2023 3:32 PM EDT Faxed office notes/A1c values with additonal question form Loan Johnston MA [facility]05-16-2024 Telephone encounter Note* Telephone Encounter - Sharon Mayer RN - 11/13/2023 11:49 AM EDT Ethan with the PA Department with [employer] called and reports they need the notes regarding the Free Style Pilar. I let him know that they needed to be signed and as soon as the provider does this we would fax them to # [phone]. [facility]05-15-2024 NoteHNO ID: [id number] Author: PETER ELLIS MD Service: ? Author Type: Physician Type: Progress Notes Filed: 11/14/2023 09:10 Note Text: This note was created using NCLCriter. Subjective Steve Vieira is a 78 year [...] walking from home to her appointment. Eats [employer] and [employer]. Has cat. States "trying to " Was at hospital then went to [facility] [...] wants her to move where they are ([place]). Has a friend who lives [place]--prefers to move there. Kids were here after when she was transferred to [facility] then had to go back to their homes. Not sure about her meds but gets from [facility]. Wants CGM so can check sugars. Feet [...] subcutaneously one time a week. Gets through [employer] PAP. levothyroxine (SYNTHROID) 25 mcg tablet Take 1 tablet by mouth every Friday,Friday,Friday. Take on empty stomach. For thyroid. Add to the levothyroxine 50 mcg once daily dosing but just on Fri-Fri-Fri empagliflozin (JARDIANCE) 25 mg tablet Take 1 tablet by mouth daily with breakfast. Gets through [employer] PAP. ferrous sulfate 325 mg (65 mg [...] 57.2 Abs Neut (ANC) (more content not included)...[facility] 10-31-2023 Telephone encounter Note* Telephone Encounter - Loraine Johnson LPN - 10/31/2023 12:03 PM EDT Labs in process [facility]05-03-2024 Miscellaneous Notes* Telephone Encounter - Loraine Johnson LPN - 10/31/2023 12:03 PM EDT Labs in process * Telephone Encounter - Orin Sosa APRN.CNP - 10/31/2023 11:20 AM EDT Please let lab know orders placed. * Telephone Encounter - Roula Woodall LPN - 10/31/2023 11:05 AM EDT Patient here to have labs drawn for OV with PCP on 11/12/23. Waiting down front and can call Julia at ext [phone] to update pt. Last OV 08/25/23 with labs done then. Roula Woodall LPN documented in this encounterAvita [facility]05-03-2024 Telephone encounter Note * Telephone Encounter - Orin Sosa APRN.CNP - 10/31/2023 11:20 AM EDT Please let lab know orders placed. [facility]05-03-2024 Telephone encounter Note* Telephone Encounter - Roula Woodall LPN - 10/31/2023 11:05 AM EDT Patient here to have labs drawn for OV with PCP on 11/12/23. Waiting down front and can call Julia at ext [phone] to update pt. Last OV 08/25/23 with labs done then. Roula Woodall LPN [facility]02-28-2024 Miscellaneous Notes* Telephone Encounter - Augusto Ross Ma - 08/27/2023 12:34 PM EST Left message to call office. 08/27/2023 12:34 PM * Telephone Encounter - Orin Sosa APRN.MELISSA - 08/27/2023 12:25 PM EST We can call Abbi to let her know blood work results, vitamin d improving, thyroid stable, iron levels stable with current dose of iron supplement, blood sugar control improving. One concern is that liver numbers are increasing, I would like to check an ultrasound of the liver. This is ordered. She may prefer to have this done at [facility] since transportation is an issue. Please see where she would like to do this and if preference is [facility] then fax order. Thanks. documented in this encounterAvita [facility]02-[facility]-2024 NoteHNO ID: [id number] Author: ORIN SOSA APRN.MELISSA Service: ? Author Type: Nurse Practitioner Type: Progress Notes Filed: 08/25/2023 12:56 Note Text: SUBJECTIVE Steve Vieira is a 78 year old female here today for a check up on her medical problems. Chief Complaint Patient presents with: [facility] ER follow up - UTI HPI Steve Vieira is a 78 year old female. She is an established patient of Peter Ellis MD. Here today for follow up, she is a poor historian. Recently seen at [facility] on 08/15, records viewed in care everywhere and found she was admitted 08/15 with discharge 08/16 or 08/17. Diagnosis of dehydration, weakness, hyperglycemia, acute UTI and failure to thrive. There is concerns of her living by herself currently and needing to change her current living situation to promote safety. She was discharged to a SNF ([facility]) 08/16 and unclear when she was discharged [...] by mouth daily with breakfast. Gets through [facility] PAP. ferrous sulfate 325 mg (65 [...] is 1/5. Psychiatric: Attention (more content not included)...[facility]02-17-2024 Discharge summary Author Carl Couch [facility] August 16, 2023 4:16pm Note Date/Time August 16, 2023 4:16pm [facility] Medical Records Department [address] [place] [address] Discharge Summary 08/16/23 1612 MR#: [id number] Acct: [id number] Name: STEVE VIEIRA Rep #:[id number] : 1945 78 From: Carl Couch DO PCP: Dr. Peter Ellis MD Status:AD M IN Location: CO3 VX358-5 Providers Date of Admission: 08/15/23 Primary Care [...] she would benefit to going to a correction facility for further rehab. * Plan for discharge to correction facility Chronic conditions: * Hyperlipidemia - Resume [...] Catheterized Urine Culture - Preliminary GNR lactose casing in line feeder D/C Instructions Discharge Diet: 2000 Calorie Control Diet Meaningful Use Info Meaningful [...] in before D/C Order can be placed): Half-Way Facility Charges/Coding Visit Charges Inpatient E&M: 75285 Disch Hosp >30min 08/16/23 1616 <Electronically signed by Carl Couch DO> Cosigner Signature (if applicable): CC: Dr. Carl Couch DO; Dr. Peter Ellis MD~ Signed [facility] Work Phone: 1(272) 441-729702-17-2024 Discharge summary Author Carl Couch [facility] August 16, 2023 4:12pm Note Date/Time August 16, 2023 4:04pm [facility] Medical Records Department [address] [place] [address] Transfer to Extended Care MR#: [id number] Acct: [id number] Name: STEVE VIEIRA Rep #:[id number] : 1945 78 From: Carl Couch DO PCP: Dr. Peter Ellis MD Status:AD M IN Certification of patient admission REQUIRED AT TIME OF ADMISSION. I CERTIFY THAT POST-HOSPITAL ECF SERVICES ARE REQUIRED TO BE GIVEN ON AN IN-PATIENT BASIS BECAUSE OF THE ABOVE NAMED PATIENT'S NEED FOR GROUP HOME CARE ON A CONTINUING BASIS FOR THE CONDITION(S) FOR WHICH HE/SHE WAS RECEIVING IN-PATIENT HOSPITAL SERVICES PRIOR TO HIS/HER TRANSFER TO THE ECF. 08/16/23 1612<Electronically signed by Carl Couch DO> Diet Diet [...] she would benefit to going to a correction facility for further rehab. * Plan for discharge to correction facility Chronic conditions: * Hyperlipidemia - Resume [...] in before D/C Order can be placed): Half-Way Facility 08/16/23 1612 <Electronically signed by Carl Couch DO> Cosigner Signature (if applicable): CC: Dr. Mitzy Pratt DO; Dr. Peter Ellis MD ~ [facility] Work Phone: 1(239) 410-776602-17-2024 Progress note Author [facility] August 16, 2023 1:09pm Note Date/Time August 16, 2023 7:51am [facility] Medical Records Department [address] [place] [address] Progress Note - Hospitalist 08/16/23 0751 MR#: [id number] Acct: [id number] Name: STEVE VIEIRA Rep #:[id number] : 1945 78 From: Carl Couch DO PCP: Dr. Peter Ellis MD Status:AD M IN Location: [place] 095712-1 Reason for Visit Reason for Visit: Diagnoses [...] she would benefit to going to a correction facility for further rehab. * Plan for discharge to correction facility Chronic conditions: * Hyperlipidemia - Resume [...] sq daily. Charges/Coding Visit Charges Inpatient E&M: 53351 Subs Hosp L2 08/16/23 8913 <Electronically signed by Carl Couch DO> Cosigner Signature (if applicable): CC: ~ Signed [facility] Work Phone: 1(466) 832-559602-16-2024 Progress note Author Carl Couch [facility] August 15, 2023 3:05pm Note Date/Time August 15, 2023 8:09am [facility] Medical Records Department [address] [place] [address] Progress Note - Hospitalist 08/15/23 0802 MR#: [id number] Acct: [id number] Name: STEVE VIERIA Rep #:[id number] : 1945 78 From: Carl Couch DO PCP: Dr. Peter Ellis MD Status:AD M IN [facility] Reason for Visit Reason for Visit: Diagnoses [...] (Auto) 69.3, Lymph % (Auto) 17.4 L, [place] % (Auto) 10.7 H, Eos % (Auto) [...] Sl. Cloudy, Urine pH 7.0, Ur Specific [place] 1.010, Urine Protein Negative, Urine Glucose (UA) [...] 71.6 H, Lymph % (Auto) 18.4 L, [place] % (Auto) 6.9, Eos % (Auto) 1.5, [...] OT CM/SW * Plan for discharge to correction facility Chronic conditions: * Hyperlipidemia - Resume [...] sq daily. Charges/Coding Visit Charges Inpatient E&M: 67902 Subs Hosp L2 08/15/23 9478 <Electronically signed by Carl Couch DO> Cosigner Signature (if applicable): CC: ~ Signed [facility] Work Phone: 1(647) 676-597602-16-2024 Miscellaneous Notes* Telephone Encounter - Rich Richmond LPN - 08/15/2023 9:11 AM EST Spoke with Cristin and pt was discharged on Aspirin. Pt is back in the hospital per Cristin. Rich Richmond LPN * Telephone Encounter - Marmiar Shields LPN - 08/14/2023 10:29 AM EST Attempted to contact Cristin [facility] but no answer. Left providers message and [...] - 08/13/2023 3:04 PM EST Cristin with [facility] calling to let you know did start [...] booked. Rich Richmond LPN documented in this encounterAvita Health [facility]02-16-2024 Discharge summary Author Lola Marquez [facility] August 15, 2023 6:49am Note Date/Time August 14, 2023 10:36pm [facility] Medical Records Department [address] [place] [address] Emergency Department Summary 08/14/23 MR#: [id number] Acct: [id number] Name: STEVE VIEIRA Rep #:[id number] : 1945 78 From: Lola Marquez DO PCP: Dr. Peter Ellis MD Status:AD M IN Location: [place] [address] HPI History of Present Illness Chief Complaint: Weakness Detail of Chief Complaint: Generalized weakness Informant: patient and EMS Narrative Narrative: Patient presents to the emergency department via EMS from home. She called for help because she is unable to care for herself. Patient had recent admission [facility] and she was set up with protective services and Meals on Wheels. Patient states that she is having a hard time even getting up. She is only had a tomato to eat today. Patient urinating frequently. Denies fevers or chills or sweats. She denies chest pain or shortness of breath. She denies abdominal pain. [facility] Medical History (Updated 08/15/23 @ 00:50 [...] (Auto) 69.3 Lymph % (Auto) 17.4 L [place] % (Auto) 10.7 H Eos % (Auto) [...] Sl. Cloudy Urine pH 7.0 Ur Specific [place] 1.010 Urine Protein Negative Urine Glucose (UA) [...] Provider] - Disposition Disposition: Acute Care Hospital [facility] What to do if you have Problems For any increased pain, shortness of breath, bleeding, nausea or vomiting, chestpain, or any unexpected problems, contact your Primary Care Provider. Call [facility] ([phone]) or report to the closest Emergency Room. Call 911 if necessary. 08/15/23 0649 <Electronically signed by Lola Marquez DO> Cosigner Signature (if applicable): CC: Dr. Peter Ellis MD ~ Signed [facility] Work Phone: 1(377) 481-401802-16-2024 History and physical note Author Mitzy Perez [facility] August 15, 2023 5:31am Note Date/Time August 15, 2023 1:25am [facility] Medical Records Department [address] [place] [address] H&P Exam - Hospitalist 08/15/23 0100 MR#: [id number] Acct: [id number] Name: STEVE VIEIRA Rep #:[id number] : 1945 78 From: Mitzy Serna DO PCP: Dr. Peter Ellis MD Status:AD M IN [place] [facility] PK655-8 HPI - General General Date of Admission: 08/15/23 Date of Service: 08/15/23 Chief Complaint: Hyperglycemia and Unable to Take Care of Herself at Home. HPI Narrative STEVE VIEIRA, is a 78 F with a past medical history of hyperlipidemia, hypothyroidism, DM-2; uncontrolled with hyperglycemia, SAMYM, history of renal calculi, chronic depression, GERD, OA; with history of TKR and recent admission here from August 09, 2023 to August 12, 2023 for treatment of adult ysfrokw-fx-pwwxxk who re-presents to [facility] ER complaining of hyperglycemia and being unable to care for herself at home. Ms. Pepperports her symptoms have been ongoing since her [...] in the setting of previously diagnosed adult kkarbqd-up-tiiksw causing her not to be able to care for herself any longer at home and she was then admitted to the general medical floor for ongoing care for a stay that is expected to be greaterthan 48 hours. [facility] Medical History Diabetes Head injury Kidney stones [...] (Auto) 69.3, Lymph % (Auto) 17.4 L, [place] % (Auto) 10.7 H, Eos % (Auto) [...] Sl. Cloudy, Urine pH 7.0, Ur Specific [place] 1.010, Urine Protein Negative, Urine Glucose (UA) [...] August 12, 2023 for treatment of adult hmfutto-zz-rvyoww with patient needing ECF placement as she [...] 55 minutes. Charges/Coding Visit Charges Inpatient E&M: 92508 Init Hosp L2 08/15/23 0531 <Electronically signed by Mitzy Pratt DO> Cosigner Signature (if applicable): CC: Dr. Mitzy Pratt DO; Dr. Peter Ellis MD~ Signed [facility] Work Phone: [phone]) 884-502702-15-2024 Miscellaneous Notes* Telephone Encounter - Sharon Mayer RN - 08/14/2023 3:23 PM EST Letitia BALLESTEROS from [facility] called and is notified of providers message [...] 08/14/2023 12:07 PM EST Letitia BALLESTEROS from [facility] calls and states that she was out to see patient today for 3 hours. Letitia reports that patient is not safe to at home but is refusing to go to [facility]. Letitia reports thatliving conditions are unlivable. Patient [...] advise, Melina Keys RN documented in this encounterCleveland [id number] NoteHNO ID: [id number] Author: RICH RICHMOND LPN Service: ? Author Type: LICENSED NURSE Type: Progress Notes Filed: 08/15/2023 09:20 Note Text: TRANSITION CARE MANAGEMENT (TCM) INITIAL CONTACT Vehicle Technician Outreach Provider Action/FYI:06-14-24 pt is back in the hosptial Left a message 08-13-23 for pt to call the office to schedule a [facility] Follow up Discharged 08-12-23. Left another message 08-14-23 to call the office and ask to speak to a nurse. Need to do TCM and schedule a hospital follow up. Pt back in the hospital, TCM was not completed. Closing. Rich Richmond LPN TRANSITION CARE MANAGEMENT INITIAL OUTREACH DOCUMENTATION: No flowsheet data found. SUMMARY: -Pt discharged from [facility] on 08/12/23. -Admitted for: hyperglycemia, failure [...] from recent hospitalization: [facility] History of Present illness Narrative* Rich Richmond LPN - 08/13/2023 3:22 PM EST TRANSITION CARE MANAGEMENT (TCM) INITIAL CONTACT Vehicle Technician Outreach Provider Action/FYI:06-14-24 pt is back in the hosptial Left a message 08-13-23 for pt to call the office to schedule a [facility] Follow up Discharged 08-12-23. Left another message 08-14-23 to call the office and ask to speak to a nurse. Need to do TCM and schedule a hospital follow up. Pt back in the hospital, TCM was not completed. Closing. Rich Richmond LPN TRANSITION CARE MANAGEMENT INITIAL OUTREACH DOCUMENTATION: No flowsheet data found. SUMMARY: -Pt discharged from [facility] on 08/12/23. -Admitted for: hyperglycemia, failure [...] back in the hospital documented in this encounterAvita Health System [facility]02-14-2024 NotePatient Outreach (INTMWS) STEVE VIEIRA ([id number]) 1945 F Date Time Provider Department 08/13/23 PETER ELLIS INTMWS During your visit today, we recorded the following information about you: Rich Richmond LPN 08/15/2023 9:20 AM Signed TRANSITION CARE MANAGEMENT (TCM) INITIAL CONTACT Vehicle Technician Outreach Provider Action/:06-14-24 pt is back in the hosptial Left a message 08-13-23 for pt to call the office to schedule a [facility] Follow up Discharged 08-12-23. Left another message 08-14-23 to call the office and ask to speak to a nurse. Need to do TCM and schedule a hospital follow up. Pt back in the hospital, TCM was not completed. Closing. Rich Richmond LPN TRANSITION CARE MANAGEMENT INITIAL OUTREACH DOCUMENTATION: No flowsheet data found. SUMMARY: -Pt discharged from [facility] on 08/12/23. -Admitted for: hyperglycemia, failure [...] by mouth daily with breakfast. Gets through [employer] PAP. - ferrous sulfate 325 mg [...] 08/13/2021 Encounter Status:Closed by RICH RICHMOND on 08/15/23[facility] Consult note Author Macarena Doyle [facility] August 12, 2023 1:13pm Note Date/Time August 12, 2023 1:13pm [facility] Medical Records Department [address] [place] [address] Counseling Note - Pharmacy 08/12/23 1313 MR#: [id number] Acct: [id number] Name: STEVE VIEIRA Rep #:[id number] : 1945 78 From: Macarena Doyle PCP: Dr. Peter Ellis MD Status:AD M IN [place] [facility] ZU353-1 Pharm[place] Med Reconciliation Pharmacy Service has performed discharge [...] Signature (if applicable): Date CC: ~ Signed [facility] Work Phone: [phone]) 127-321602-13-2024 Discharge summary Author Wes Alva [facility] August 12, 2023 1:06pm Note Date/Time August 12, 2023 12:59pm [facility] Medical Records Department [address] [place] [address] Instructions for Home/Discharge Instructions 08/12/23 1258 MR#: [id number] Acct: [id number] Name: STEVE VIEIRA Rep #:[id number] : 1945 78 From: Wes Alva DO [...] MD; Dr. Peter Ellis MD ~ Signed [facility] Work Phone: [phone]) 986-914602-13-2024 Miscellaneous Notes* Telephone Encounter - Yesenia Yarbrough Cma - 08/12/2023 8:55 AM EST [facility] notified and verbalized understanding Yesenia aYrbrough Cma * Telephone Encounter - Peter Ellis MD - 08/11/2023 7:46 PM EST Below noted May give verbal orders Make sure have up to date discharge summary and medication list gets reconciled. * Telephone Encounter - Alta Ortiz LPN - 08/11/2023 12:49 PM EST [facility] with [facility] HH calls to report pt is going to be discharged from [facility] today with orders for Nursing, PT, and OT. [facility] is requesting a VO from provider that pcp will follow pt while in HH. Alta Ortiz LPN documented in this encounterAvita Health System [facility]02-12-2024 Progress note Author Wes Garciast. mary's medical centersaima [facility] August 11, 2023 5:13pm Note Date/Time August 11, 2023 5:06pm [facility] Medical Records Department [address] [place] [address] Progress Note - Hospitalist 08/11/23 1703 MR#: [id number] Acct: [id number] Name: DARIELSTEVE L Rep #:[id number] : 1945 78 From: Wes Alva DO PCP: Dr. Peter Ellis MD Status:AD M IN Location: [place]3 WY481-3 Reason for Visit Reason for Visit: Diagnoses [...] % (Auto) 66.6, Lymph % (Auto) 20.9, [place] % (Auto) 8.9, Eos % (Auto) 1.7, [...] discharged home rather than go to a correction facility, due to her anemia today however [...] on levothyroxine Total clinical time spent by marieelf addressing patient's medical issues, reviewing all of her data, and collaborating with patient's care team: 35 minutes Charges/Coding Visit Charges Inpatient E&M: 14817 Subs Hosp L2 08/11/23 1713 <Electronically signed by Wes Alva DO> Cosigner Signature (if applicable): CC: ~ Signed [facility] Work Phone: [phone]) 914-335902-11-2024 Progress note Author Mitzy Strauss [facility] August 10, 2023 9:52am Note Date/Time August 10, 2023 7:17am [facility] Medical Records Department [address] [place] [address] Progress Note - Hospitalist 08/10/23714 MR#: [id number] Acct: [id number] Name: STEVE VIEIRA Rep #:[id number] : 1945 78 From: Mitzy Strauss MD PCP: Dr. Peter Ellis MD Status:AD M IN [place] [facility] [id number] Reason for Visit Reason for Visit: Diagnoses [...] 76.1 H, Lymph % (Auto) 14.9 L, [place] % (Auto) 6.6, Eos % (Auto) 0.9, [...] Clarity Clear, Urine pH 5.0, Ur Specific [place] 1.015, Urine Protein 15 H, Urine Glucose [...] % (Auto) 65.9, Lymph % (Auto) 20.6, [place] % (Auto) 9.7, Eos % (Auto) 1.7, [...] 13:03 EST Reading Location ID and State: [facility] / [place] , Service support , Chest X-Ray 08/09/23 [...] requested for PT OT eval and social sciences department chair to assist with discharge planning ? 08/10/2023 [...] documentation, 50minutes Charges/Coding Visit Charges Inpatient E&M: 88374 Subs Hosp L3 08/10/23 0952 <Electronically signed by Mitzy Strauss MD> Cosigner Signature (if applicable): CC: ~ Signed [facility] Work Phone: 1(893) 241-588202-10-2024 Discharge summary Author Santos Mckeon [facility] August 09, 2023 4:50pm Note Date/Time August 09, 2023 11:52am [facility] Medical Records Department [address] [place] [address] Emergency Department Summary 08/09/23 MR#: [id number] Acct: [id number] Name: STEVE VIEIRA Rep #:[id number] : 1945 78 From: Clayton LIRA PCP: Dr. Peter Ellis MD Status:AD M IN [place]: [facility] JD325-4 HPI <PANKAJ Harris - Last Filed: 08/09/23 [...] last 6 days, she has been feeling "wonky". Patient states that she is just confused, she is having trouble getting around. Patient looks disheveled, patient is wet, states that she does not change her diaper like she is supposed to. Patient denies any fever or chills. Patient states that she is hungry and thirsty. [facility] <PANKAJ Harris - Last Filed: 08/09/23 14:00> [facility] Medical History Head injury Home Medications glipizide [...] Oxygen Delivery Method Room Air Room Air MDM <PANKAJ Harris - Last Filed: 08/09/23 14:00> [facility] Lab Data Labs: Laboratory Results - last [...] 76.1 H Lymph % (Auto) 14.9 L [place] % (Auto) 6.6 Eos % (Auto) 0.9 [...] Clarity Clear Urine pH 5.0 Ur Specific [place] 1.015 Urine Protein 15 H Urine Glucose [...] Comments: Sinus rhythm, rate of 72 bpm, [place] 190 ms, QRS duration 78 ms, no [...] Mckeon MD - Last Filed: 08/09/23 13:32> [facility] Narrative Medical decision making narrative: I have [...] 76.1 H Lymph % (Auto) 14.9 L [place] % (Auto) 6.6 Eos % (Auto) 0.9 [...] Clarity Clear Urine pH 5.0 Ur Specific [place] 1.015 Urine Protein 15 H Urine Glucose [...] failure to thrive, Chronic anemia Disposition Disposition: Acute Care [facility] What to do if you have Problems For any increased pain, shortness of breath, bleeding, nausea or vomiting, chest pain, or any unexpected problems, contact your Primary Care Provider. Call [facility] ([phone]) or report to the closest Emergency Room. Call 911 if necessary. 08/09/23 1400 <Electronically signed by Clayton Aslanides SAUSAGE STUFFER-C> Cosigner Signature (if applicable): 08/09/23 1650 <Electronically signed by Santos Mckeon MD> CC: Dr. Peter Ellis MD ~ Signed [facility] Work Phone: 1(558) 768-134102-10-2024 History and physical note Author Mitzy Strauss [facility] August 09, 2023 2:25pm Note Date/Time August 09, 2023 1:59pm [facility] Medical Records Department [address] [place] [address] H&P Exam - Hospitalist 08/09/23 1359 MR#: [id number] Acct: [id number] Name: STEVE VIEIRA Rep #:[id number] : 1945 78 From: Mitzy Strauss MD [...] to admit patient for subsequent inpatient workup [facility] Medical History Head injury Home Medications glipizide [...] 76.1 H, Lymph % (Auto) 14.9 L, [place] % (Auto) 6.6, Eos % (Auto) 0.9, [...] Clarity Clear, Urine pH 5.0, Ur Specific [place] 1.015, Urine Protein 15 H, Urine Glucose [...] requested for PT OT eval and social sciences department chair to assist with discharge planning 2. Dehydration [...] 18 minutes. Charges/Coding Visit Charges Inpatient E&M: 62857 Init Hosp L3 Procedures Hospitalists Procedures: 68897 Advncd Care Plan 30 Min 08/09/23 4858 <Electronically signed by Mitzy Strauss MD> Cosigner Signature (if applicable): CC: Dr. Mitzy Strauss MD; Dr. Peter Ellis MD~ Signed [facility] Work Phone: 1(745) 744-560612-18-2023 NotePatient Outreach (AMBPHARMSVC) STEVE VIEIRA ([id number]) 1945 F Date Time Provider Department 06/16/23 JADON DELGADO During your visit today, we recorded the following information about you: Gume (Screw Driver Operator)Sharon 07/17/2023 3:08 AM Signed This patient has been referred by pharmacy for health facilities surveyor patient assistance program business applications developer. Patient is currently enrolled in the patient assistance program through 2022. This encounter is for the program renewal through 2023. STATUS OF APPLICATION: Can be viewed under the encounter "Additional Documentation > SmartForms: [facility] RX AMB CLINIC PATIENT ASSISTANCE Completed forms sent to the health facilities surveyor will be available under Scanned Documents in the patient's chart. The finalized form can be found under "PAP_Medication Name_Complete." PAP Clothing Cutter Team will submit and track progress on the completed PAP application. Please do NOT fax to health facilities surveyor unless directed by the PAP Clothing Cutter Team. Please see SmartForm described above for specifics. Please DO NOT close this encounter. Sent to patient: Contacted patient to verify information for application. Sent to prescriber: Sent to prescriber. Confirmation Received. Sent to health facilities surveyor: Allergies As of Date: 06/16/2023 Noted Allergy [...] by mouth daily with breakfast. Gets through [employer] PAP. - ferrous sulfate 325 mg [...] 08/13/2021 Encounter Status:Closed by INNA MCWILLIAMS on 07/17/23[facility] 04-22-2023 Miscellaneous Notes* Telephone Encounter - Renetta Abernathy LPN - 04/22/2023 1:40 PM EDT MILLA Rabago completed these. They have been faxed back to the company. * Telephone Encounter - Sherwin Che MSW - 04/21/2023 10:20 AM EDT Lesli spoke with patient and verified that patient Jardiance medication is the only medication that she applies to [facility] for assistance. Sw will take forms to Dr. Ellis office for prescription completion. documented in this encounterAvita Health [facility]09-06-2023 Miscellaneous Notes* Telephone Encounter - Sherwin Che MSW - 03/05/2023 12:01 PM EDT Lesli spoke with patient in regards to [employer] and discount cab vouchers. Sw has updated brochures with transit cost and stops. Sw will mail [employer] brochures and [facility] Older Adult resource guide to patient [...] other social service needs. documented in this encounterAvita Health System [facility]09-01-2023 Instructions* Patient Instructions* Peter Ellis MD - 02/28/2023 3:12 PM EDT Start iron tablet over the counter 1 pill on Friday, Friday and Friday. Dose is up to you. documented in this encounterAvita Health System [facility]09-01-2023 NoteHNO ID: [id number] Author: Peter Ellis MD Service: ? Author Type: Physician Type: Progress Notes Filed: 03/31/2023 12:27 AM Note Text: This note was created using [employer]. Luis Eduardo Vieira is a 77 year old female. [...] by mouth daily with breakfast. Gets through [employer] PAP. ferrous sulfate 325 mg (65 [...] (H) Estimated Average Gluc (more content not included)...[facility] 02-28-2023 History of Present illness Narrative* Peter Ellis MD - 02/28/2023 2:54 PM EDT This note was created using [employer]. Subjective Steve Vieira is a 77 year [...] subcutaneously one time a week. Gets through [employer] PAP. empagliflozin (JARDIANCE) 25 mg tablet Take 1 tablet by mouth daily with breakfast. Gets through [email or web address] PAP. ferrous sulfate 325 mg (65 mg [...] the date of the service which included dspk-xz-ymur patient care, completing clinical documentation, obtaining and/or reviewing separately obtained history, performing a medically appropriate examination, counseling and educating the patient/family/caregiver, and ordering medications, tests, or procedures. Peter Ellis MD documented in this encounterAvita [facility]08-[facility]23 Miscellaneous Notes* Telephone Encounter - Barbara [...] appt. Radha Lea MA documented in this encounterAvita Health System [facility]03-16-2023 Miscellaneous Notes* Telephone Encounter - Jadon Delgado RP - 09/12/2022 12:08 PM EDT During PharmD visit today, it was noted patient has NOT been taking many of her medications. Patient would benefit greatly from adherence packaging. The following prescriptions need sent to [facility] and are pended for PCP/MOLDER's signature: Requested Prescriptions Pending Prescriptions Disp Refills [...] if clinically indicated. Thanks! Jadon Delgado PharmD, BCPS Primary Care Clinical Pharmacist documented in this encounterAvita Health System Gal[facility]03-16-2023 History of Present illness Narrative* Jadon [...] management appointment for diabetes. Per consult notes, "would like to get CGM but is not on insulin." At last PCP appt, no med changes made but patient referred to PharmD. At PharmD visit on 06/20, no med changes since no SMBGs to review but much DM education was provided and lifestyle modifications and med adherence encouraged. Consult to [facility] to see if qualifies for Medicaid. At last PharmD visit on 07/25, Trulicity and Jardiance were increased. Subjective: HPI: States she needs prescriptions renewed: atorvastatin, glipizide, pantoprazole, Jardiance 10mg. "I'mall confused." States she switched insurance. Used to get prescriptions through the mail through [facility]. Said [facility] - needs all meds [facility] to [facility]. Feels overwhelmed with meds. Has meds at various places in her house. Has been out of [facility] for a long time, uncertain how [...] not checking Hypoglycemia: none Preventative Medications: On ANABELLE/ARB: No On Statin: Yes MEDICATIONS: Pill bottles are present Adherence: reports missed doses of atorva, glip, jardiance, and pantoprazole because out of supply Pharmacy: was [facility] though changed insurance; thinks [facility] preferred Rx coverage: [facility] Medicare Affordability: no issues Diabetes [...] at night if can't sleep.Denies any hx NM/stroke. Denies GI issues though problem list indicates [...] by mouth daily with breakfast. Gets through [facility] PAP. Has Jardiance 10mg tablets. Taking 1 [...] -- ran out of the 10mg tabs; [facility] shadia completed for 25mg tabs --> PharmD called [facility] (on hold for ~30 mins); confirmed she [...] benefit greatly from adherence packaging. PharmD called [facility] to see if theyaccept patient's insurance and non morse intercept technician believes it would be accepted. PharmD provided patient info and insurance information. Will have all prescriptions sent to [facility] through their adherence packaging and mail delivery service Patient due for labwork. Requested she have drawn in the next 1-2 weeks, she was agreeable to doingso. 2. Type 2 diabetes mellitus without complication, without long-term current use of insulin ([facility]) - ICD9: 250.00, ICD10: E11.9 A1c goal < 8%; uncontrolled (last A1c 11.9%); no SMBG log to review; patient reports consistently taking metformin and Trulicity and tolerating fine; is out of glipizide and Jardiance --> needsscript sent to new pharmacy for glipizide and need to contact [facility] regarding Jardiance status; patient interested in CGM [...] time was 90 minutes. documented in this encounterAvita Health System Gal[facility] Hospital01-26-2023 History of Present illness Narrative* Jadon [...] management appointment for diabetes. Per consult notes, "would like to get CGM but is not on insulin." At last PCP appt, no med changes made but patient referred to PharmD. At last PharmD visit on 06/20, no med changes since no SMBGs to review but much DM education was provided and lifestyle modifications and med adherence encouraged. Consult to [facility] to see if qualifies for Medicaid. Subjective: HPI: Reports she is not checking her sugars. Glucometer is not working and forgot to bring it with her. "It's probably in the 400s." Says she doesn't feel well, her depression is not good. Has another dog who is dying but can't afford to put him down. Doesn't have much interest in doing things. Not eating properly. Sleeping OK butdays and nights are mixed up. No thoughts of harming self or others. No SI/HI. "I'm just so alone."Doesn't want to do counseling. Received a shipment [...] to work Hypoglycemia: none Preventative Medications: On ANABELLE/ARB: No On Statin: Yes ROS: Patient denies [...] sleeping in Pharmacy: [facility] Rx coverage: [facility] Medicare Affordability: no issues Diabetes [...] be likely; patient just received shipment of [employer] 3mg pens so will have her increase [...] verbalized understanding of instructions. Jadon Delgado PharmD, [facility] Primary Care Clinical Pharmacist The majority of the pharmacy visit (> 50%) was spent counseling and/or coordinating care for thepatient. interaction: face to face time was 45 minutes. documented in this encounterAvita Health System [facility]01-26-2023 Instructions* Patient Instructions* Jadon Delgado RPh - 07/25/2022 2:30 PM EST Call Medicaid Shared Services number [phone], to reach out to our area services [...] to the 25mg tablets. documented in this encounterAvita Health System [facility] Hospital01-10-2023 Miscellaneous Notes* Telephone Encounter - Renetta Abernathy LPN - 07/09/2022 2:28 PM EST Rec'd fax from [facility] patient assistance program. This says pt is approved from 07/09/22 to 06/29/2023 unless pts circumstances changes. documented in this encounterAvita Health System Galion Hospital12-22-2022 Miscellaneous Notes* Telephone Encounter - OSITO [...] provided patient with Medicaid Shared Services number [phone], to reach out to our area services to see about material that they could provide to patient regarding how Medicaid assistance works with Medicare. Lesli noted that calling above number can be screened over the phone for Medicaid. Patient reports that she will call after the of the year as she is busy with the holidays. documented in this encounterAvita Health System Gal[facility] Hospital12-22-2022 History of Present illness Narrative* Jadon Delgado, [facility] - 06/20/2022 11:00 AM EST [...] management appointment for diabetes. Per consult notes, "would like to get CGM but is not on insulin." Patient previously worked with PharmD - last appt on 08/22/21 and patient was since lost to f/up. At last PCP appt, no med changes made but patient referred to PharmD. Subjective: HPI: Patient not sure why she is here today. Says she is very interested in having CGM. Asking what Medicaid does that Medicare doesn't do, wondering if eligible. "I'm poor." States her whole family has diabetes. Niece was diagnosed when an infant. "I just don't eat properly." "I just don't care." "The older I get, the less I care." Thinks has had diabetes for 20+ years. Has BG supplies but doesn't test, it hurts. Usually testing on finger pads. Doesn't know what DM does in the body. Knows it has to do with carbs "which is the only thing I like." Knows it can cause limb loss and [...] it hurts Hypoglycemia: none Preventative Medications: On ANABELLE/ARB: No On Statin: Yes ROS: Patient denies [...] verbalized understanding of instructions. Jadon Delgado PharmD, [facility] Primary Care Clinical Pharmacist The majority of the pharmacy visit (> 50%) was spent counseling and/or coordinating care for thepatient. interaction: face to face time was 65 minutes. documented in this encounterAvita Health System Galion Hospital12-22-2022 Instructions* Patient Instructions* Jadon Delgado RPh [...] if you need refills. documented in this encounterAvita Health System [facility] Hospital12-01-2022 Miscellaneous Notes* Telephone Encounter - Jadon Delgado RPh - 05/30/2022 12:44 PM EST PAP technicians completed PAP application. PCP portion placed on PCP's desk. Will get patient's signatures at upcoming appt on 06/20. Jadon Delgado PharmD, [facility] Primary Care Clinical Pharmacist documented in this encounterAvita Health System [facility] Hospital11-18-2022 Miscellaneous Notes* Telephone Encounter - Quyen [...] and advise. Quyen Ramos documented in this encounterAvita Health System [facility] Hospital10-31-2022 Miscellaneous Notes* Telephone Encounter - Jadon Delgado RPh - 04/29/2022 9:43 AM EDT Patient recently referred by PCP to [facility] for DM mngt Called patient to schedule initial appt Unable to reach patient, no dialtone when calling. 3rd outreach attempt for patient, will plan to send letter. Jadon Delgado PharmD, [facility] Primary Care Clinical Pharmacist Malcolm Torres [facility] documented in this encounterAvita Health System [facility] Hospital10-18-2022 Miscellaneous Notes* Telephone Encounter - HUGO Nicole - 04/16/2022 10:57 AM EDT Telephoned the patient to schedule a new Primary Care pharmacy appt. Unable to leave a message. Phone saying the call did not go through. documented in this encounterAvita Health System Galion Hospital07-13-2022 Instructions* Patient Instructions* Harsha Ortiz MD - 01/09/2022 10:56 AM EDT Images from the original note were not included. documented in this encounterAvita Health System Gal[facility] Hospital07-13-2022 History of Present illness Narrative* Harsha [...] components. Harsha Ortiz MD documented in this encounterAvita Health System [facility] Hospital06-14-2022 History of Present illness Narrative* Peter Ellis MD - 12/11/2021 2:20 PM EDT This note was created using Eyepicter. Subjective Steve Vieira is a 76 year [...] TIBC Peter Ellis MD documented in this encounterAvita Health System [facility] Hospital03-28-2022 Miscellaneous Notes* Telephone Encounter - Maciej Lopez RPh - 09/24/2021 4:40 PM EDT This encounter was opened in error. @[email or web address]@ documented in this encounterAvita Health System Galion Hospital02-14-2022 History of Past illness Narrative* Problem [...] of this encounter (statuses as of 03/31/2023) [facility] History of Past illness Narrative* Problem [...] of this encounter (statuses as of 04/22/2023) [facility] History of Past illness Narrative* Problem [...] of this encounter (statuses as of 08/12/2023) [facility] History of Past illness Narrative* Problem [...] of this encounter (statuses as of 08/14/2023) [facility] History of Past illness Narrative* Problem [...] of this encounter (statuses as of 08/15/2023) [place] [address]-14-2022 History of Past illness Narrative* Problem Noted [...] of this encounter (statuses as of 08/29/2023) [facility] History of Past illness Narrative* Problem Noted Date Resolved Date Uncontrolled type 2 diabetes mellitus without complication, without long-term current use of insulin 01/25/2016 08/20/2018 HYPOTHYROIDISM NOS 03/24/2007 04/02/2015 DIABETES MELLITUS TYPE II-UNCOMPL 01/05/2007 04/02/2015 Depressive disorder, not elsewhere classified 04/02/2015 HYPERLIPIDEMIA NEC/NOS 01/05/2007 5 documented as of this encounter (statuses as of 09/24/2021) [facility] of Past illness Narrative* Problem Noted Date Resolved Date Uncontrolled type 2 diabetes mellitus without complication, without long-term current use of insulin 01/25/2016 08/20/2018 HYPOTHYROIDISM NOS 03/24/2007 04/02/2015 DIABETES MELLITUS TYPE II-UNCOMPL 01/05/2007 04/02/2015 Depressive disorder, not elsewhere classified 04/02/2015 HYPERLIPIDEMIA NEC/NOS 01/05/2007 5 documented as of this encounter (statuses as of 01/09/2022) [facility] of Past illness Narrative* Problem Noted Date Resolved Date Uncontrolled type 2 diabetes mellitus without complication, without long-term current use of insulin 01/25/2016 08/20/2018 HYPOTHYROIDISM NOS 03/24/2007 04/02/2015 DIABETES MELLITUS TYPE II-UNCOMPL 01/05/2007 04/02/2015 Depressive disorder, not elsewhere classified 04/02/2015 HYPERLIPIDEMIA NEC/NOS 01/05/2007 5 documented as of this encounter (statuses as of 02/02/2022) [facility] of [facility] illness Narrative* Problem Noted Date Resolved Date Uncontrolled type 2 diabetes mellitus without complication, without long-term current use of insulin 01/25/2016 08/20/2018 HYPOTHYROIDISM NOS 03/24/2007 04/02/2015 DIABETES MELLITUS TYPE II-UNCOMPL 01/05/2007 04/02/2015 Depressive disorder, not elsewhere classified 04/02/2015 HYPERLIPIDEMIA NEC/NOS 01/05/2007 5 documented as of this encounter (statuses as of 04/16/2022) [facility] of [facility] illness Narrative* Problem Noted Date Resolved Date Uncontrolled type 2 diabetes mellitus without complication, without long-term current use of insulin 01/25/2016 08/20/2018 HYPOTHYROIDISM NOS 03/24/2007 04/02/2015 DIABETES MELLITUS TYPE II-UNCOMPL 01/05/2007 04/02/2015 Depressive disorder, not elsewhere classified 04/02/2015 HYPERLIPIDEMIA NEC/NOS 01/05/2007 5 documented as of this encounter (statuses as of 04/29/2022) [facility] of [facility] illness Narrative* Problem Noted Date Resolved Date Uncontrolled type 2 diabetes mellitus without complication, without long-term current use of insulin 01/25/2016 08/20/2018 HYPOTHYROIDISM NOS 03/24/2007 04/02/2015 DIABETES MELLITUS TYPE II-UNCOMPL 01/05/2007 04/02/2015 Depressive disorder, not elsewhere classified 04/02/2015 HYPERLIPIDEMIA NEC/NOS 01/05/2007 5 documented as of this encounter (statuses as of 05/17/2022) [facility] of [facility] illness Narrative* Problem Noted Date Resolved Date Uncontrolled type 2 diabetes mellitus without complication, without long-term current use of insulin 01/25/2016 08/20/2018 HYPOTHYROIDISM NOS 03/24/2007 04/02/2015 DIABETES MELLITUS TYPE II-UNCOMPL 01/05/2007 04/02/2015 Depressive disorder, not elsewhere classified 04/02/2015 HYPERLIPIDEMIA NEC/NOS 01/05/2007 5 documented as of this encounter (statuses as of 05/30/2022) [address]28-2016 History of Past illness Narrative* Problem Noted Date Resolved Date Uncontrolled type 2 diabetes mellitus without complication, without long-term current use of insulin 01/25/2016 08/20/2018 HYPOTHYROIDISM NOS 03/24/2007 04/02/2015 DIABETES MELLITUS TYPE II-UNCOMPL 01/05/2007 04/02/2015 Depressive disorder, not elsewhere classified 04/02/2015 HYPERLIPIDEMIA NEC/NOS 01/05/2007 5 documented as of this encounter (statuses as of 06/21/2022) [facility] of [facility] Narrative* Problem Noted Date Resolved Date Uncontrolled type 2 diabetes mellitus without complication, without long-term current use of insulin 01/25/2016 08/20/2018 HYPOTHYROIDISM NOS 03/24/2007 04/02/2015 DIABETES MELLITUS TYPE II-UNCOMPL 01/05/2007 04/02/2015 Depressive disorder, not elsewhere classified 04/02/2015 HYPERLIPIDEMIA NEC/NOS 01/05/2007 5 documented as of this encounter (statuses as of 06/21/2022) [facility] of [facility] illness Narrative* Problem Noted Date Resolved Date Uncontrolled type 2 diabetes mellitus without complication, without long-term current use of insulin 01/25/2016 08/20/2018 HYPOTHYROIDISM NOS 03/24/2007 04/02/2015 DIABETES MELLITUS TYPE II-UNCOMPL 01/05/2007 04/02/2015 Depressive disorder, not elsewhere classified 04/02/2015 HYPERLIPIDEMIA NEC/NOS 01/05/2007 5 documented as of this encounter (statuses as of 07/09/2022) [facility] of [facility] Narrative* Problem Noted Date Resolved Date Uncontrolled type 2 diabetes mellitus without complication, without long-term current use of insulin 01/25/2016 08/20/2018 HYPOTHYROIDISM NOS 03/24/2007 04/02/2015 DIABETES MELLITUS TYPE II-UNCOMPL 01/05/2007 04/02/2015 Depressive disorder, not elsewhere classified 04/02/2015 HYPERLIPIDEMIA NEC/NOS 01/05/2007 5 documented as of this encounter (statuses as of 07/25/2022) [facility] of [facility] illness Narrative* Problem Noted Date Resolved Date Uncontrolled type 2 diabetes mellitus without complication, without long-term current use of insulin 01/25/2016 08/20/2018 HYPOTHYROIDISM NOS 03/24/2007 04/02/2015 DIABETES MELLITUS TYPE II-UNCOMPL 01/05/2007 04/02/2015 Depressive disorder, not elsewhere classified 04/02/2015 HYPERLIPIDEMIA NEC/NOS 01/05/2007 5 documented as of this encounter (statuses as of 09/12/2022) [facility] of [facility] illness Narrative* Problem Noted Date Resolved Date Uncontrolled type 2 diabetes mellitus without complication, without long-term current use of insulin 01/25/2016 08/20/2018 HYPOTHYROIDISM NOS 03/24/2007 04/02/2015 DIABETES MELLITUS TYPE II-UNCOMPL 01/05/2007 04/02/2015 Depressive disorder, not elsewhere classified 04/02/2015 HYPERLIPIDEMIA NEC/NOS 01/05/2007 5 documented as of this encounter (statuses as of 09/12/2022) [facility] of [facility] illness Narrative* Problem Noted Date Diagnosed Date Resolved Date Uncontrolled type 2 diabetes mellitus without complication, without long-term current use of insulin 01/25/2016 08/20/2018 HYPOTHYROIDISM NOS 03/24/2007 5 DIABETES MELLITUS TYPE II-UNCOMPL 01/05/2007 04/02/2015 Depressive disorder, not elsewhere classified 01/06/20 07 04/02/2015 HYPERLIPIDEMIA NEC/NOS 01/05/200704/02 documented as of this encounter (statuses as of 02/13/2023) [facility] of [facility] illness Narrative* Problem Noted Date Diagnosed Date Resolved Date Uncontrolled type 2 diabetes mellitus without complication, without long-term current use of insulin 01/25/2016 08/20/2018 HYPOTHYROIDISM NOS 03/24/2007 5 DIABETES MELLITUS TYPE II-UNCOMPL 01/05/2007 04/02/2015 Depressive disorder, not elsewhere classified 01/06/20 07 04/02/2015 HYPERLIPIDEMIA NEC/NOS 01/05/200704/02 documented as of this encounter (statuses as of 03/05/2023) [facility]* Diagnosis OPENED IN ERROR- Primary To allow closing an encounter opened in error (used in SmartSet) documented in this encounter [place] note* Diagnosis Combined forms of age-related cataract of both eyes- Primary Other and combined forms of senile cataract Type 2 diabetes mellitus without retinopathy (HCC) Type II or unspecified type diabetes mellitus without mention of complication, not stated as uncontrolled Izq-[id number]-[id number] corneal dystrophy of both eyes documented in this encounter [facility]* Diagnosis Uncontrolled type 2 diabetes mellitus with hyperglycemia (HCC)- Primary Recurrent kidney stones Calculus of kidney Esophageal reflux Depression, unspecified depression type Hyperlipidemia, unspecified hyperlipidemia type Acquired hypothyroidism Unspecified hypothyroidism B12 deficiency Other B-complex deficiencies Encounter for long-term current use of medication Iron deficiency anemia, unspecified iron deficiency anemia type documented in this encounter [facility]* Diagnosis Esophageal reflux Persistent depressive disorder documented in this encounter [place] note* Diagnosis Controlled type 2 diabetes mellitus without complication, without long-term current use of insulin (HCC)- Primary Medication management Encounter for long-term (current) use of other medications [facility]* Diagnosis Type 2 diabetes mellitus without complication, without long-term current use of insulin (HCC)- Primary Medication management Encounter for long-term (current) use of other medications documented in this encounter [place] noteNo assessment information availableWMercy Hospital Work Phone: Evaluation note* Diagnosis Medication management- Primary Encounter for long-term (current) use of other medications Type 2 diabetes mellitus without complication, without long-term current use of insulin (HCC) Hyperlipidemia, unspecified hyperlipidemia type documented in this encounter [place] note* Diagnosis Esophageal reflux Persistent depressive disorder Acquired hypothyroidism Unspecified hypothyroidism documented in this encounter [facility]* Diagnosis Acquired hypothyroidism- Primary Unspecified hypothyroidism B12 deficiency Other B-complex deficiencies Hyperlipidemia, unspecified hyperlipidemia type Iron deficiency anemia, unspecified iron deficiency anemia type Uncontrolled type 2 diabetes mellitus with hyperglycemia (HCC) documented in this encounter [place] note* Diagnosis Acquired hypothyroidism- Primary Unspecified hypothyroidism Type 2 diabetes mellitus without complication, without long-term current use of insulin (HCC) Iron deficiency anemia, unspecified iron deficiency anemia type B12 deficiency Other B-complex deficiencies Vitamin D deficiency Unspecified vitamin D deficiency Encounter for long-term current use of medication [facility]* Diagnosis Onset Date Resolution Status Acute dehydration acute Adult failure to thrive acut e Hyperglycemia due to diabetes mellitus acute Chronic anemia chronic [facility] Work Phone: Evaluation note* Diagnosis Onset Date Resolution Status Acute dehydration acute Adult failure to thrive acut e Hyperglycemia due to diabetes mellitus acute Chronic anemia chronic Acute UTI acute Adult failure to thrive acut e Hyperglycemia acute [facility] Work Phone: Evaluation note* Diagnosis Onset Date Resolution Status Acute dehydration acute Adult failure to thrive acut e Hyperglycemia due to diabetes mellitus acute Chronic anemia chronic Acute dehydration acute Acute UTI acute Adult failure to thrive acut e Hyperglycemia acute [facility] Work Phone: Evaluation note* Diagnosis Elevated LFTs- Primary Other abnormal blood chemistry documented in this encounter [place] note* Diagnosis Onset Date Resolution Status Chronic anemia chronic Acute UTI acute Adult failure to thrive acut e Hyperglycemia acute [facility] Work Phone: Evaluation note* Diagnosis Encounter for therapeutic drug monitoring- Primary Acquired hypothyroidism Unspecified hypothyroidism Iron deficiency anemia, unspecified iron deficiency anemia type Type 2 diabetes mellitus without complication, without long-term current use of insulin (HCC) documented in this encounter [place] note* Diagnosis Uncontrolled type 2 diabetes mellitus with hyperglycemia (HCC)- Primary Urinary incontinence without sensory awareness Incontinence without sensory awareness Weakness Other malaise and fatigue Elevated LFTs Other abnormal blood chemistry Anemia, unspecified type Frequent falls Personal history of fall documented in this encounter [facility] for referral (narrative)* Diagnostic Procedure Only (Routine) - Pending Review Specialty Diagnoses / Procedures Referred By Theresa amaro Referred To Contact US IMAGING Diagnoses Elevated LFTs Procedures US ABD RIGHT UPPER QUADRANT US ABDOMINAL REAL TIME W/IMAGE LIMITED Orin Sosa APRN.CNP [address] [place] [address] [place] [address] Referral ID Status Reason Start Date Expiration Date Visits Requested Visits Authorized [id number] Pending Review Auto-Generat ed Referral 08/27/2023 09/25/2024 1 1 [facility] for referral (narrative)No reason for referral information availableWMercy Hospital Work Phone: Summary Purpose Family History No Family History Records FoundNo Family History Records FoundNo Family History Records Found Advance Directives No Advanced Directives Records FoundDocuments on File Type Date Recorded 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 Advance Directive(s) Advance Directive Response Recorded Date/ Time Advance Directives No June 07, 2014 12:02pm Living Will No May 28 019 12:36pm Power of Hydraulic Press Servicer No May 28, 2019 12:36pm Advance Directive Response Recorded Date/ Time Advance Directives No June 07, 2014 1:02pm Living Will Yes September 21, 2022 2:29pm Power of Hydraulic Press Servicer No September 21 2:29pm Advance Directive Response Recorded Date/ Time Advance Directives No June 07, 2014 12:02pm Living Will No August 09 024 3:47pm Power of Hydraulic Press Servicer No August 09, 2023 3:47pm Advance Directive Response Recorded Date/ Time Advance Directives No June 07, 2014 12:02pm Living Will No August 15, 024 12:18am Power of Hydraulic Press Servicer No August 15, 2023 12:18am Advance Directive Response Recorded Date/ Time Name of Medical Power of Hydraulic Press Servicer leola daily August 15, 2023 3:01am Advance Directives No June 07, 2014 12:02pm Living Will Yes August 15, 2 024 3:01am Power of Hydraulic Press Servicer Yes August 15, 2023 3:01am Advance Directive Response Recorded Date/ Time Name of Medical Power of Hydraulic Press Servicer leola daily August 15, 2023 4:01am Advance Directives No June 07, 2014 1:02pm Living Will Yes August 15 024 4:01am Power of Hydraulic Press Servicer Yes August 15, 2023 4:01am Advance Directive Response Recorded Date/ Time Advance Directives No June 07, 2014 1:02pm Medications Administered Section Active Administered Medications - up to 3 most recent administrations Medication Order MAR Action Action Date Dose Rate Site fluorescein-benoxinate 0.25-0.4 % 1 Drop (FLURESS) 1 Drop, BOTH EYES, DIRECTED, Starting on Fri01/09/22 at 1000, Until Fri01/09/22 at 2159, Administer for applanation tonometry. In the event of a Fluress shortage, administer [place]-Fluor 1 drop into both eyes as directed for applanation tonometry Given 01/09/2022 10:00 AM EDT 1 Drop PHENYLephrine 2.5 % 1 Drop (AK-DILATE, TJ-SYNEPHRINE) 1 Drop, BOTH EYES, DIRECTED, Starting on Fri01/09/22 at 1000, Until Fri01/09/22 at 2159, Administer for dilation PROTECT FROM LIGHT Given [...] to thrive Hyperglycemia Chief Complaint Admit Date GROUP HOME LAB WORK June 21 5:30am GROUP HOME LAB WORK September 20, 2024 5 :00am Chief Complaint Admit Date GROUP HOME LAB WORK December 14, 2024 5: 00am SEPSIS March 03, 2025 4:06pm Chief Complaint Admit Date GROUP HOME LAB WORK December 14, 2024 5: 00am SEPSIS March 03, 2025 4:08pm SEPSIS March 03, 2025 4:40pm SEPSIS March 04, 2025 7:46am SEPSIS March 04, 2025 4:36pm SEPSIS March 05, 2025 1:42pm SEPSIS March 06, 2025 10:10am SEPSIS March 07, 2025 10:15am SEPSIS March 08, 2025 8:53am Reason for Visit Admit Date Acute hypoxic respiratory failure Septem 2024 4:08pm Bacteremia due to Gram-negative bacteria March 03, 2025 4:08pm Hyperlipidemia March 03, 2025 4:08pm Sepsis March 03, 2025 4:08pm Chief Complaint Admit Date GROUP HOME LAB WORK December 14, 2024 5: 00am SEPSIS March 03, 2025 4:08pm SEPSIS March 03, 2025 4:40pm SEPSIS March 04, 2025 7:46am SEPSIS March 04, 2025 4:36pm SEPSIS March 05, 2025 1:42pm SEPSIS March 06, 2025 10:10am SEPSIS March 07, 2025 10:15am SEPSIS March 08, 2025 8:53am LAB WORK March 10, 2025 5:00am Reason for Referral Specialty Diagnoses / Procedures Referred By Contac t Referred To Contact Diagnoses Uncontrolled type 2 diabetes mellitus with hyperglycemia (HCC) Peter Ellis MD [address] [place] [address] Referral ID Status Reason Start Date Expiration Date Visits Re quested Visits Authorized [id number] Closed 1 1 Referral ID Status Reason Start Date Expiration Date V isits Requested Visits Authorized [id number] Authorized 11/12/2023 06/29/2024 1 1 Additional Source Comments INFORMATION SOURCE (unrecogn ized section and content) DATE CREATED AUTHOR 04/04/2019 [facility] DATE CREATED AUTHOR AUTHOR'S ORGANIZ ATION 12/06/2023 [facility] DATE CREATED AUTHOR AUTHOR'S ORGANIZ ATION 04/20/2025 [facility] Source Comments (unrecognize d section and content) In the event this informatio n is protected by the Federal Confidentiality of Alcohol and Drug Abuse Patient Records regulations: The Federal rules restrict any use of the information to criminally investigate or prosecute any alcohol or drug abuse patient.[facility] the event this information is protected by the Federal Confidentiality of Alcohol and Drug Abuse Patient Records regulations: The Federal rules restrict any use of the information to criminally investigate or prosecute any alcohol or drug abuse patient.[facility] HospitalIn the event this information is protected by the Federal Confidentiality of Alcohol and Drug Abuse Patient Records regulations: The Federal rules restrict any use of the information to criminally investigate or prosecute any alcohol or drug abuse patient.[facility] HospitalIn the event this information is protected by the Federal Confidentiality of Alcohol and Drug Abuse Patient Records regulations: The Federal rules restrict any use of the information to criminally investigate or prosecute any alcohol or drug abuse patient.[facility] HospitalIn the event this information is protected by the Federal Confidentiality of Alcohol and Drug Abuse Patient Records regulations: The Federal rules restrict any use of the information to criminally investigate or prosecute any alcohol or drug abuse patient.[facility] HospitalIn the event this information is protected by the Federal Confidentiality of Alcohol and Drug Abuse Patient Records regulations: The Federal rules restrict any use of the information to criminally investigate or prosecute any alcohol or drug abuse patient.[facility] HospitalIn the event this information is protected by the Federal Confidentiality of Alcohol and Drug Abuse Patient Records regulations: The Federal rules restrict any use of the information to criminally investigate or prosecute any alcohol or drug abuse patient.[facility] HospitalIn the event this information is protected by the Federal Confidentiality of Alcohol and Drug Abuse Patient Records regulations: The Federal rules restrict any use of the information to criminally investigate or prosecute any alcohol or drug abuse patient.[facility] HospitalIn the event this information is protected by the Federal Confidentiality of Alcohol and Drug Abuse Patient Records regulations: The Federal rules restrict any use of the information to criminally investigate or prosecute any alcohol or drug abuse patient.[facility] HospitalIn the event this information is protected by the Federal Confidentiality of Alcohol and Drug Abuse Patient Records regulations: The Federal rules restrict any use of the information to criminally investigate or prosecute any alcohol or drug abuse patient.[facility] HospitalIn the event this information is protected by the Federal Confidentiality of Alcohol and Drug Abuse Patient Records regulations: The Federal rules restrict any use of the information to criminally investigate or prosecute any alcohol or drug abuse patient.[facility] HospitalIn the event this information is protected by the Federal Confidentiality of Alcohol and Drug Abuse Patient Records regulations: The Federal rules restrict any use of the information to criminally investigate or prosecute any alcohol or drug abuse patient.[facility] HospitalIn the event this information is protected by the Federal Confidentiality of Alcohol and Drug Abuse Patient Records regulations: The Federal rules restrict any use of the information to criminally investigate or prosecute any alcohol or drug abuse patient.[facility] HospitalIn the event this information is protected by the Federal Confidentiality of Alcohol and Drug Abuse Patient Records regulations: The Federal rules restrict any use of the information to criminally investigate or prosecute any alcohol or drug abuse patient.[facility] HospitalIn the event this information is protected by the Federal Confidentiality of Alcohol and Drug Abuse Patient Records regulations: The Federal rules restrict any use of the information to criminally investigate or prosecute any alcohol or drug abuse patient.[facility] HospitalIn the event this information is protected by the Federal Confidentiality of Alcohol and Drug Abuse Patient Records regulations: The Federal rules restrict any use of the information to criminally investigate or prosecute any alcohol or drug abuse patient.[facility] HospitalIn the event this information is protected by the Federal Confidentiality of Alcohol and Drug Abuse Patient Records regulations: The Federal rules restrict any use of the information to criminally investigate or prosecute any alcohol or drug abuse patient.[facility] HospitalIn the event this information is protected by the Federal Confidentiality of Alcohol and Drug Abuse Patient Records regulations: The Federal rules restrict any use of the information to criminally investigate or prosecute any alcohol or drug abuse patient.[facility] HospitalIn the event this information is protected by the Federal Confidentiality of Alcohol and Drug Abuse Patient Records regulations: The Federal rules restrict any use of the information to criminally investigate or prosecute any alcohol or drug abuse patient.[facility] HospitalIn the event this information is protected by the Federal Confidentiality of Alcohol and Drug Abuse Patient Records regulations: The Federal rules restrict any use of the information to criminally investigate or prosecute any alcohol or drug abuse patient.[facility] HospitalIn the event this information is protected by the Federal Confidentiality of Alcohol and Drug Abuse Patient Records regulations: The Federal rules restrict any use of the information to criminally investigate or prosecute any alcohol or drug abuse patient.[facility] HospitalIn the event this information is protected by the Federal Confidentiality of Alcohol and Drug Abuse Patient Records regulations: The Federal rules restrict any use of the information to criminally investigate or prosecute any alcohol or drug abuse patient.[facility] HospitalIn the event this information is protected by the Federal Confidentiality of Alcohol and Drug Abuse Patient Records regulations: The Federal rules restrict any use of the information to criminally investigate or prosecute any alcohol or drug abuse patient.[facility] HospitalIn the event this information is protected by the Federal Confidentiality of Alcohol and Drug Abuse Patient Records regulations: The Federal rules restrict any use of the information to criminally investigate or prosecute any alcohol or drug abuse patient.[facility] the event this information is protected by the Federal Confidentiality of Alcohol and Drug Abuse Patient Records regulations: The Federal rules restrict any use of the information to criminally investigate or prosecute any alcohol or drug abuse patient.[facility] HospitalIn the event this information is protected by the Federal Confidentiality of Alcohol and Drug Abuse Patient Records regulations: The Federal rules restrict any use of the information to criminally investigate or prosecute any alcohol or drug abuse patient.[facility] HospitalIn the event this information is protected by the Federal Confidentiality of Alcohol and Drug Abuse Patient Records regulations: The Federal rules restrict any use of the information to criminally investigate or prosecute any alcohol or drug abuse patient.[facility] Reason for Visit (unrecogniz ed section [...] Reason Comments HH Verbal orders Reason Comments Update Reason Onset Date Comments Transition Of Care 08/13/2023 Reason Comments [facility], verbal order Reason Comments Results Reason Comments Labs needed Reason Comments F/U 4 month Reason Comments Insurance Authorization pilar Reason Comments Medication Problem Care Teams (unrecognized sec tion and content) Toll Bridge Operator Relationship Specialty Start Date End Date Peter Ellis MD [address] [facility] [address] PCP - General [facility]24[facility] [address] [facility] [place] [address] Pharmacist Pharmacy 02/26/19 Toll Bridge Operator Relationship Specialty Start Date End Date Peter Ellis MD [address] [facility] [place] [address] PCP - General 03/24/07 [facility] [address] [facility] [address] Pharmacist Pharmacy 02/26/19 Toll Bridge Operator Relationship Specialty Start Date End Date Peter Ellis MD [address] [facility] [address] PCP - General 03/24/07 [facility] [address] [facility] [address] Pharmacist Pharmacy 02/26/19 Toll Bridge Operator Relationship Specialty Start Date End Date Peter Ellis MD [address] [facility] [place] [address] PCP - General 03/24/07 [facility] [address] [facility] [address] Pharmacist Pharmacy 02/26/19 Toll Bridge Operator Relationship Specialty Start Date End Date Peter Ellis MD [address] [facility] [address] PCP - General 03/24/07 Toll Bridge Operator Relationship Specialty Start Date End Date Peter Ellis MD [address] [place] [address] PCP - General 03/24/07 Toll Bridge Operator Relationship Specialty Start Date End Date Peter Ellis MD [address] [place] [address] PCP - General 03/24/07 [place]Ste[place] [address] [place] [address] Pharmacist Pharmacy 06/20/22 Toll Bridge Operator Relationship Specialty Start Date End Date Peter Ellis MD [address] [place] [address] PCP - General 03/24/07 [facility] [address] [place] [address] Pharmacist Pharmacy 06/20/22 Toll Bridge Operator Relationship Specialty Start Date End Date Peter Ellis MD [address] [place] [address] PCP - General 03/24/07 [facility] DelgadoSte[place] [address] [place] [address] Pharmacist Pharmacy 06/20/22 Toll Bridge Operator Relationship Specialty Start Date End Date Peter Ellis MD [address] [place] [address] PCP - General 03/24/07 [facility], [place] [address] [place] [address] Pharmacist Pharmacy 06/20/22 Team Status: Active Member Role Status Dates Dr. Peter Ellis MD Family Provider Active Dr. Peter Ellis MD Primary Care Provider Active Team Status: Inactive Member Role Status Dates Dr. Peter Ellis MD Primary Care Provider Active Ed Physician Provider Emergency Provider Active Toll Bridge Operator Relationship Specialty Start Date End Date Peter Ellis MD [address] [place] [address] PCP - General 03/24/07 [place] [facility] [address] [place] [address] Pharmacist Pharmacy 06/20/22 Team Status: Inactive Member Role Status Dates Dr. Peter Ellis MD Primary Care Provider Active Ed Physician Provider Attending Provider, Emergency Pr ovider Active Team Status: Inactive Member Role Status Dates Dr. Peter Ellis MD Primary Care Provider Active Dr. 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 Relationship Specialty Start Date End Date Peter Ellis MD [address] [place] [address] PCP - General 03/24/07 [place] [address] [place] [phone] Pharmacist Pharmacy 06/20/22 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 Wes Alva DO Attending Provider, Other Pro vider Active Team Status: Inactive Member Role Status Dates Dr. Peter Ellis MD Primary Care Provider Active Dr. Santos Mckeon MD Emergency Provider Active Dr. Mitzy Strauss MD Admit Provider, Other Provider A ctive Dr. 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 Mitzy Pratt DO Admit Provider, Other Provid er Active Dr. Carl Couch DO Attending Provider, Other Provid er Active Team Status: Inactive Member Role Status Dates Dr. Peter Ellis MD Primary Care Provider Active Dr. Lola Marquez DO Emergency Provider Active Dr. Mitzy Pratt DO Admit Provider, Other Provid er Active Dr. 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 Relationship Specialty Start Date End Date Peter Ellis MD [address] [place] [address] PCP - General 03/24/07 [place] [facility] [place]obsSte[place] [address] [place] [address] Pharmacist Pharmacy 06/20/22 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 Peter Ellis MD Primary Care Provider Active Start: March 03, 2025 End: March 08, 2025 Dr. Frieda Laurent MD Emergency Provider Active S tart: March 03, 2025 End: March 08, 2025 Dr. Desiree Trent MD Admit Provider Active Star t: March 03, 2025 End: March 08, 2025 Dr. Desiree Trent MD Other Provider Active Star t: March 03, 2025 End: March 08, 2025 Dr. Esa Ponce MD Other Provider Active Start: March 03, 2025 End: March 08, 2025 Dr. Giovanni Batista MD Other Provider Active Start: March 03, 2025 End: March 08, 2025 Dr. Geovany Garcia MD Other Provider Active Star t: March 03, 2025 End: March 08, 2025 Dr. Mario Dunaway DO Other Provider Active Start : March 03, 2025 End: March 08, 2025 Dr. Mitzy Mohamud MD Other Provider Active Sta rt: March 03, 2025 End: March 08, 2025 Dr. Deng Burnette MD Other Provider Active St art: March 03, 2025 End: March 08, 2025 Dr. Caden Kurtz MD Other Provider Active S tart: March 03, 2025 End: March 08, 2025 Dr. Frances Natarajan MD Other Provider Active Start: March 03, 2025 End: March 08, 2025 Dr. Mason Mina MD Other Provider Active Start : March 03, 2025 End: March 08, 2025 Dr. Chalino Harp MD Other Provider Active Start: March 03, 2025 End: March 08, 2025 Dr. Matthew Calixto MD Other Provider Active Start : March 03, 2025 End: March 08, 2025 Dr. Juana Mendez MD Other Provider Active Star t: March 03, 2025 End: March 08, 2025 Dr. Oni Perkins MD Other Provider Active Sta rt: March 03, 2025 End: March 08, 2025 Dr. Germania Lance MD Other Provider Active Sta rt: March 03, 2025 End: March 08, 2025 Dr. Antione Thompson MD Other Provider Active Star t: March 03, 2025 End: March 08, 2025 Dr. Kev Albert MD Other Provider Active St art: March 03, 2025 End: March 08, 2025 Dr. Gibson Dwyer MD Other Provider Active Star t: March 03, 2025 End: March 08, 2025 Dr. Omar Castillo DO Other Provider Active St art: March 03, 2025 End: March 08, 2025 Dr. Anabel Cummins MD Other Provider Active Start: March 03, 2025 End: March 08, 2025 Dr. Ingrid Fonseca MD Other Provider Active St art: March 03, 2025 End: March 08, 2025 Dr. Warren Stockton DO Other Provider Active Start: March 03, 2025 End: March 08, 2025 Dr. Moses Damon MD Other Provider Active Start: March 03, 2025 End: March 08, 2025 Dr. Gabino Malik MD Other Provider Active Star t: March 03, 2025 End: March 08, 2025 Dr. Donell Rendon MD Other Provider Active Start: March 03, 2025 End: March 08, 2025 Dr. Terry Flores MD Other Provider Active Sta rt: March 03, 2025 End: March 08, 2025 Amira Mai NP, SAUSAGE STUFFER-C Other Provider Active Start: March 03, 2025 End: March 08, 2025 Debra Bunn NP-C Other Provider Active St art: March 03, 2025 End: March 08, 2025 Dr. Carl Couch DO Attending Provider Active Start: March 03, 2025 End: March 08, 2025 Dr. Linda Marte MD Other Provider Active St art: March 03, 2025 End: March 08, 2025 Dr. Ab Nur MD Other Provider Active Start: March 03, 2025 End: March 08, 2025 Team Status: Active Member Role/Relationship Status Dates Dr. Peter Ellis MD Primary Care Provider Active Start: March 03, 2025 Dr. Frieda Laurent MD Emergency Provider Active S tart: March 03, 2025 Dr. Desiree rTent MD Admit Provider Active Star t: March 03, 2025 Dr. Desiree Trent MD Attending Provider Active Start: March 03, 2025 Dr. Desiree Trent MD Other Provider Active Star t: March 03, 2025 Team Status: Active Member Role/Relationship Status Dates Dr. Peter Ellis MD Primary Care Provider Active Start: March 04, 2025 Dr. Frieda Laurent MD Emergency Provider Active S tart: March 04, 2025 Dr. Desiree Trent MD Admit Provider Active Star t: March 04, 2025 Dr. Desiree Trent MD Other Provider Active Star t: March 04, 2025 Dr. Esa Ponce MD Other Provider Active Start: March 04, 2025 Dr. Giovanni Batista MD Other Provider Active Start: March 04, 2025 Dr. Geovany Garcia MD Other Provider Active Star t: March 04, 2025 Dr. Mario Dunaway DO Attending Provider Active S tart: March 04, 2025 Dr. Mario Dunaway DO Other Provider Active Start : March 04, 2025 Dr. Mitzy Mohamud MD Other Provider Active Sta rt: March 04, 2025 Dr. Deng Burnette MD Other Provider Active St art: March 04, 2025 Dr. Caden Kurtz MD Other Provider Active S tart: March 04, 2025 Dr. Frances Natarajan MD Other Provider Active Start: March 04, 2025 Dr. Mason Mina MD Other Provider Active Start : March 04, 2025 Dr. Chalino Harp MD Other Provider Active Start: March 04, 2025 Dr. Matthew Calixto MD Other Provider Active Start : March 04, 2025 Dr. Juana Mendez MD Other Provider Active Star t: March 04, 2025 Dr. Oni Perkins MD Other Provider Active Sta rt: March 04, 2025 Dr. Germania Lance MD Other Provider Active Sta rt: March 04, 2025 Dr. Antione Thompson MD Other Provider Active Star t: March 04, 2025 Dr. Kev Albert MD Other Provider Active St art: March 04, 2025 Dr. Gibson Dwyer MD Other Provider Active Star t: March 04, 2025 Dr. Omar Castillo DO Other Provider Active St art: March 04, 2025 Dr. Anabel Cummins MD Other Provider Active Start: March 04, 2025 Dr. Ingrid Fonseca MD Other Provider Active St art: March 04, 2025 Dr. Warren Stockton DO Other Provider Active Start: March 04, 2025 Dr. Moses Damon MD Other Provider Active Start: March 04, 2025 Dr. aGbino Malik MD Other Provider Active Star t: March 04, 2025 Dr. Donell Rendon MD Other Provider Active Start: March 04, 2025 Dr. Terry Flores MD Other Provider Active Sta rt: March 04, 2025 Amira Mai NP, SAUSAGE STUFFER-C Other Provider Active Start: March 04, 2025 Debra Bunn , MILLA-C Other Provider Active St art: March 04, 2025 Dr. Linda Marte MD Other Provider Active St art: March 04, 2025 Team Status: Active Member Role/Relationship Status Dates Dr. Peter Ellis MD Primary Care Provider Active Start: March 04, 2025 Dr. Frieda Laurent MD Emergency Provider Active S tart: March 04, 2025 Dr. Desiree Trent MD Admit Provider Active Star t: March 04, 2025 Dr. Desiree Trent MD Other Provider Active Star t: March 04, 2025 Dr. Esa Ponce MD Other Provider Active Start: March 04, 2025 Dr. Giovanni Batista MD Other Provider Active Start: March 04, 2025 Dr. Geovany Garcia MD Other Provider Active Star t: March 04, 2025 Dr. Mario Dunaway DO Other Provider Active Start : March 04, 2025 Dr. Mitzy Mohamud MD Other Provider Active Sta rt: March 04, 2025 Dr. Deng Burnette MD Other Provider Active St art: March 04, 2025 Dr. Caden Kurtz MD Other Provider Active S tart: March 04, 2025 Dr. Frances Natarajan MD Other Provider Active Start: March 04, 2025 Dr. Mason Mina MD Other Provider Active Start : March 04, 2025 Dr. Chalino Harp MD Other Provider Active Start: March 04, 2025 Dr. Matthew Calixto MD Other Provider Active Start : March 04, 2025 Dr. Juana Mendez MD Other Provider Active Star t: March 04, 2025 Dr. Oni Perkins MD Other Provider Active Sta rt: March 04, 2025 Dr. Germania Lance MD Other Provider Active Sta rt: March 04, 2025 Dr. Antione Thompson MD Other Provider Active Star t: March 04, 2025 Dr. Kev Albert MD Other Provider Active St art: March 04, 2025 Dr. Gibson Dwyer MD Other Provider Active Star t: March 04, 2025 Dr. Omar Castillo DO Other Provider Active St art: March 04, 2025 Dr. Anabel Cummins MD Other Provider Active Start: March 04, 2025 Dr. Ingrid Fonseca MD Other Provider Active St art: March 04, 2025 Dr. Warren Stockton DO Other Provider Active Start: March 04, 2025 Dr. Moses Damon MD Other Provider Active Start: March 04, 2025 Dr. Gabino Malik MD Other Provider Active Star t: March 04, 2025 Dr. Donell Rendon MD Other Provider Active Start: March 04, 2025 Dr. Terry Flores MD Other Provider Active Sta rt: March 04, 2025 Amira Mai NP, SAUSAGE STUFFER-C Other Provider Active Start: March 04, 2025 Debra Bunn , MILLA-C Other Provider Active St art: March 04, 2025 Dr. Linda Marte MD Attending Provider Active Start: March 04, 2025 Dr. Linda Marte MD Other Provider Active St art: March 04, 2025 Team Status: Active Member Role/Relationship Status Dates Dr. Peter Ellis MD Primary Care Provider Active Start: March 05, 2025 Dr. Frieda Laurent MD Emergency Provider Active S tart: March 05, 2025 Dr. Desiree Trent MD Admit Provider Active Star t: March 05, 2025 Dr. Desiree Trent MD Other Provider Active Star t: March 05, 2025 Dr. Esa Ponce MD Other Provider Active Start: March 05, 2025 Dr. Giovanni Batista MD Other Provider Active Start: March 05, 2025 Dr. Geovany Garcia MD Other Provider Active Star t: March 05, 2025 Dr. Mario Dunaway DO Other Provider Active Start : March 05, 2025 Dr. Mitzy Mohamud MD Other Provider Active Sta rt: March 05, 2025 Dr. Deng Burnette MD Other Provider Active St art: March 05, 2025 Dr. Caden Kurtz MD Other Provider Active S tart: March 05, 2025 Dr. Frances Natarajan MD Other Provider Active Start: March 05, 2025 Dr. Mason Mina MD Other Provider Active Start : March 05, 2025 Dr. Chalino Harp MD Other Provider Active Start: March 05, 2025 Dr. Matthew Calixto MD Other Provider Active Start : March 05, 2025 Dr. Juana Mendez MD Other Provider Active Star t: March 05, 2025 Dr. Oni Perkins MD Other Provider Active Sta rt: March 05, 2025 Dr. Germania Lance MD Other Provider Active Sta rt: March 05, 2025 Dr. Antione Thompson MD Other Provider Active Star t: March 05, 2025 Dr. Kev Albert MD Other Provider Active St art: March 05, 2025 Dr. Gibson Dwyer MD Other Provider Active Star t: March 05, 2025 Dr. Omar Castillo DO Other Provider Active St art: March 05, 2025 Dr. Anabel Cummins MD Other Provider Active Start: March 05, 2025 Dr. Ingrid Fonseca MD Other Provider Active St art: March 05, 2025 Dr. Warren Stockton DO Other Provider Active Start: March 05, 2025 Dr. Moses Damon MD Other Provider Active Start: March 05, 2025 Dr. Gabino Malik MD Other Provider Active Star t: March 05, 2025 Dr. Donell Rendon MD Other Provider Active Start: March 05, 2025 Dr. Terry Flores MD Other Provider Active Sta rt: March 05, 2025 Amira Mai NP, SAUSAGE STUFFER-C Other Provider Active Start: March 05, 2025 Debra Bunn NP-C Other Provider Active St art: March 05, 2025 Dr. Linda Marte MD Attending Provider Active Start: March 05, 2025 Dr. Linda Marte MD Other Provider Active St art: March 05, 2025 Team Status: Active Member Role/Relationship Status Dates Dr. Peter Ellis MD Primary Care Provider Active Start: March 06, 2025 Dr. Frieda Laurent MD Emergency Provider Active S tart: March 06, 2025 Dr. Desiree Trent MD Admit Provider Active Star t: March 06, 2025 Dr. Desiree Trent MD Other Provider Active Star t: March 06, 2025 Dr. Linda Marte MD Attending Provider Active Start: March 06, 2025 Dr. Linda Marte MD Other Provider Active St art: March 06, 2025 Dr. Esa Ponce MD Other Provider Active Start: March 06, 2025 Dr. Giovanni Batista MD Other Provider Active Start: March 06, 2025 Dr. Geovany Garcia MD Other Provider Active Star t: March 06, 2025 Dr. Mario Dunaway DO Other Provider Active Start : March 06, 2025 Dr. Mitzy Mohamud MD Other Provider Active Sta rt: March 06, 2025 Dr. Deng Burnette MD Other Provider Active St art: March 06, 2025 Dr. Caden Kurtz MD Other Provider Active S tart: March 06, 2025 Dr. Frances Natarajan MD Other Provider Active Start: March 06, 2025 Dr. Mason Mina MD Other Provider Active Start : March 06, 2025 Dr. Chalino Harp MD Other Provider Active Start: March 06, 2025 Dr. Matthew Calixto MD Other Provider Active Start : March 06, 2025 Dr. Juana Mendez MD Other Provider Active Star t: March 06, 2025 Dr. Oni Perkins MD Other Provider Active Sta rt: March 06, 2025 Dr. Germania Lance MD Other Provider Active Sta rt: March 06, 2025 Dr. Antione Thompson MD Other Provider Active Star t: March 06, 2025 Dr. Kev Albert MD Other Provider Active St art: March 06, 2025 Dr. Gibson Dwyer MD Other Provider Active Star t: March 06, 2025 Dr. Omar Castillo DO Other Provider Active St art: March 06, 2025 Dr. Anabel Cummins MD Other Provider Active Start: March 06, 2025 Dr. Ingrid Fonseca MD Other Provider Active St art: March 06, 2025 Dr. Warren Stockton DO Other Provider Active Start: March 06, 2025 Dr. Moses Damon MD Other Provider Active Start: March 06, 2025 Dr. Gabino Malik MD Other Provider Active Star t: March 06, 2025 Dr. Donell Rendon MD Other Provider Active Start: March 06, 2025 Dr. Terry Flores MD Other Provider Active Sta rt: March 06, 2025 Amira Mai NP, SAUSAGE STUFFER-C Other Provider Active Start: March 06, 2025 Debra Bunn NP-C Other Provider Active St art: March 06, 2025 Team Status: Active Member Role/Relationship Status Dates Dr. Peter Ellis MD Primary Care Provider Active Start: March 07, 2025 Dr. Frieda Laurent MD Emergency Provider Active S tart: March 07, 2025 Dr. Desiree Trent MD Admit Provider Active Star t: March 07, 2025 Dr. Desiree Trent MD Other Provider Active Star t: March 07, 2025 Dr. Esa Ponce MD Other Provider Active Start: March 07, 2025 Dr. Giovanni Batista MD Other Provider Active Start: March 07, 2025 Dr. Geovany Garcia MD Other Provider Active Star t: March 07, 2025 Dr. Mario Dunaway DO Other Provider Active Start : March 07, 2025 Dr. Mitzy Mohamud MD Other Provider Active Sta rt: March 07, 2025 Dr. Deng Burnette MD Other Provider Active St art: March 07, 2025 Dr. Caden Kurtz MD Other Provider Active S tart: March 07, 2025 Dr. Frances Natarajan MD Other Provider Active Start: March 07, 2025 Dr. Mason Mina MD Other Provider Active Start : March 07, 2025 Dr. Chalino Harp MD Other Provider Active Start: March 07, 2025 Dr. Matthew Calixto MD Other Provider Active Start : March 07, 2025 Dr. Juana Mendez MD Other Provider Active Star t: March 07, 2025 Dr. Oni Perkins MD Other Provider Active Sta rt: March 07, 2025 Dr. Germania Lance MD Other Provider Active Sta rt: March 07, 2025 Dr. Antione Thompson MD Other Provider Active Star t: March 07, 2025 Dr. Kev Albert MD Other Provider Active St art: March 07, 2025 Dr. Gibson Dwyer MD Other Provider Active Star t: March 07, 2025 Dr. Omar Castillo DO Other Provider Active St art: March 07, 2025 Dr. Anabel Cummins MD Other Provider Active Start: March 07, 2025 Dr. Ingrid Fonseca MD Other Provider Active St art: March 07, 2025 Dr. Warren Stockton DO Other Provider Active Start: March 07, 2025 Dr. Moses Damon MD Other Provider Active Start: March 07, 2025 Dr. Gabino Malik MD Other Provider Active Star t: March 07, 2025 Dr. Donell Rendon MD Other Provider Active Start: March 07, 2025 Dr. Terry Flores MD Other Provider Active Sta rt: March 07, 2025 Amira Mai SAUSAGE STUFFER, SAUSAGE STUFFER-C Other Provider Active Start: March 07, 2025 Debra Bunn , SAUSAGE STUFFER-C Other Provider Active St art: March 07, 2025 Dr. Carl Couch DO Attending Provider Active Start: March 07, 2025 Dr. Carl Couch DO Other Provider Active Star t: March 07, 2025 Dr. Linda Marte MD Other Provider Active St art: March 07, 2025 Dr. Ab Nur MD Other Provider Active Start: March 07, 2025 Team Status: Active Member Role/Relationship Status Dates Dr. Peter Ellis MD Primary Care Provider Active Start: March 08, 2025 Dr. Frieda Laurent MD Emergency Provider Active S tart: March 08, 2025 Dr. Desiree Trent MD Admit Provider Active Star t: March 08, 2025 Dr. Desiree Trent MD Other Provider Active Star t: March 08, 2025 Dr. Esa Ponce MD Other Provider Active Start: March 08, 2025 Dr. Giovanni Batista MD Other Provider Active Start: March 08, 2025 Dr. Geovany Garcia MD Other Provider Active Star t: March 08, 2025 Dr. Mario Dunaway DO Other Provider Active Start : March 08, 2025 Dr. Mitzy Mohamud MD Other Provider Active Sta rt: March 08, 2025 Dr. Deng Burnette MD Other Provider Active St art: March 08, 2025 Dr. Caden Kurtz MD Other Provider Active S tart: March 08, 2025 Dr. Frances Natarajan MD Other Provider Active Start: March 08, 2025 Dr. Mason Mina MD Other Provider Active Start : March 08, 2025 Dr. Chalino Harp MD Other Provider Active Start: March 08, 2025 Dr. Matthew Calixto MD Other Provider Active Start : March 08, 2025 Dr. Juana Mendez MD Other Provider Active Star t: March 08, 2025 Dr. Oni Perkins MD Other Provider Active Sta rt: March 08, 2025 Dr. Germania Lance MD Other Provider Active Sta rt: March 08, 2025 Dr. Antione Thompson MD Other Provider Active Star t: March 08, 2025 Dr. Kev Albert MD Other Provider Active St art: March 08, 2025 Dr. Gibson Dwyer MD Other Provider Active Star t: March 08, 2025 Dr. Omar Castillo DO Other Provider Active St art: March 08, 2025 Dr. Anabel Cummins MD Other Provider Active Start: March 08, 2025 Dr. Ingrid Fonseca MD Other Provider Active St art: March 08, 2025 Dr. Warren Stockton DO Other Provider Active Start: March 08, 2025 Dr. Moses Damon MD Other Provider Active Start: March 08, 2025 Dr. Gabino Malik MD Other Provider Active Star t: March 08, 2025 Dr. Donell Rendon MD Other Provider Active Start: March 08, 2025 Dr. Terry Flores MD Other Provider Active Sta rt: March 08, 2025 Amira Mai NP, SAUSAGE STUFFER-C Other Provider Active Start: March 08, 2025 Debra Bunn NP-C Other Provider Active St art: March 08, 2025 Dr. Carl Couch DO Attending Provider Active Start: March 08, 2025 Dr. Carl Couch DO Other Provider Active Star t: March 08, 2025 Dr. Linda Marte MD Other Provider Active St art: March 08, 2025 Dr. Ab Nur MD Other Provider Active Start: March 08, 2025 Team Status: Active Member Role/Relationship Status Dates Dr. Peter Ellis MD Primary care physician Active Team Status: Inactive Member Role/Relationship Status Dates Dr. Peter Ellis MD Primary care physician Active Start: December 14, 2024 End: December 14, 2024 Dr. Juve DUNAWAY MD Attending physician Active Start: December 14, 2024 End: December 14, 2024 Team Status: Inactive Member Role/Relationship Status Dates Dr. Peter Ellis MD Primary care physician Active Start: March 03, 2025 End: March 08, 2025 Dr. Frieda Laurent MD Emergency Departmen t Physician Active Start: March 03, 2025 End: March 08, 2025 Dr. Desiree Trent MD Admitting physician Active Start: March 03, 2025 End: March 08, 2025 Dr. Desiree Trent MD Nurse Practitioner Active Start: March 03, 2025 End: March 08, 2025 Dr. Esa Ponce MD Nurse Practitioner Active Start: March 03, 2025 End: March 08, 2025 Dr. Giovanni Batista MD Nurse Practitioner Active Sta rt: March 03, 2025 End: March 08, 2025 Dr. Geovany Garcia MD Nurse Practitioner Active Start: March 03, 2025 End: March 08, 2025 Dr. Mario Dunaway DO Nurse Practitioner Active S tart: March 03, 2025 End: March 08, 2025 Dr. Mitzy Mohamud MD Nurse Practitioner Active Start: March 03, 2025 End: March 08, 2025 Dr. Deng Burnette MD Nurse Practitioner Active Start: March 03, 2025 End: March 08, 2025 Dr. Caden Kurtz MD Nurse Practitioner Active Start: March 03, 2025 End: March 08, 2025 Dr. Frances Natarajan MD Nurse Practitioner Active Start: February End: March 08, 2025 Dr. Mason Mina MD Nurse Practitioner Active S tart: March 03, 2025 End: March 08, 2025 Dr. Chalino Harp MD Nurse Practitioner Active St art: March 03, 2025 End: March 08, 2025 Dr. Matthew Calixto MD Nurse Practitioner Active S tart: March 03, 2025 End: March 08, 2025 Dr. Juana Mendez MD Nurse Practitioner Active Start: March 03, 2025 End: March 08, 2025 Dr. Oni Perkins MD Nurse Practitioner Active Start: March 03, 2025 End: March 08, 2025 Dr. Germania Lance MD Nurse Practitioner Active Start: March 03, 2025 End: March 08, 2025 Dr. Antione Thompson MD Nurse Practitioner Active Start: March 03, 2025 End: March 08, 2025 Dr. Kev Albert MD Nurse Practitioner Active Start: March 03, 2025 End: March 08, 2025 Dr. Gibson Dwyer MD Nurse Practitioner Active Start: March 03, 2025 End: March 08, 2025 Dr. Omar Castillo , Nurse Practitioner Active Start: March 03, 2025 End: March 08, 2025 Dr. Anabel Cummins MD Nurse Practitioner Active St art: March 03, 2025 End: March 08, 2025 Dr. Ingrid Fonseca MD Nurse Practitioner Active Start: March 03, 2025 End: March 08, 2025 Dr. Warren Stockton , Nurse Practitioner Active Start: March 03, 2025 End: March 08, 2025 Dr. Moses Damon MD Nurse Practitioner Active Start: March 03, 2025 End: March 08, 2025 Dr. Gabino Malik MD Nurse Practitioner Active Start: March 03, 2025 End: March 08, 2025 Dr. Donell Rendon MD Nurse Practitioner Active Start: February End: March 08, 2025 Dr. Terry Flores MD Nurse Practitioner Active Start: March 03, 2025 End: March 08, 2025 Amira Mai SAUSAGE STUFFER, SAUSAGE STUFFER-C Nurse Practitioner Active Start: March 03, 2025 End: March 08, 2025 Debra Bunn SAUSAGE STUFFER-C Nurse Practitioner Active Start: March 03, 2025 End: March 08, 2025 Dr. Carl Couch DO Attending physician Active Start: March 03, 2025 End: March 08, 2025 Dr. Linda Marte MD Nurse Practitioner Active Start: March 03, 2025 End: March 08, 2025 Dr. Ab Nur MD Nurse Practitioner Active Start: March 03, 2025 End: March 08, 2025 Team Status: Active Member Role/Relationship Status Dates Dr. Peter Ellis MD Primary care physician Active Start: March 03, 2025 Dr. [facility] Active Start: March 03, 2025 Dr. Desiree Trent MD Admitting physician Active Start: March 03, 2025 Dr. Desiree Trent MD Attending physician Active Start: March 03, 2025 Dr. Desiree Trent MD Nurse Practitioner Active Start: March 03, 2025 Team Status: Active Member Role/Relationship Status Dates Dr. Peter Ellis MD Primary care physician Active Start: March 04, 2025 Dr. Frieda Laurent MD Emergency Departmen t Physician Active Start: March 04, 2025 Dr. Desiree Trent MD Admitting physician Active Start: March 04, 2025 Dr. Desiree Trent MD Referring Provider Active Start: March 04, 2025 Dr. Desiree Trent MD Nurse Practitioner Active Start: March 04, 2025 Dr. Esa Ponce MD Nurse Practitioner Active Start: March 04, 2025 Dr. Giovanni Batista MD Nurse Practitioner Active Sta rt: March 04, 2025 Dr. Geovany Garcia MD Nurse Practitioner Active Start: March 04, 2025 Dr. Mario Dunaway DO Attending physician Active Start: March 04, 2025 Dr. Mario Dunaway DO Nurse Practitioner Active S tart: March 04, 2025 Dr. Mitzy Mohamud MD Nurse Practitioner Active Start: March 04, 2025 Dr. Deng Burnette MD Nurse Practitioner Active Start: March 04, 2025 Dr. Caden Kurtz MD Nurse Practitioner Active Start: March 04, 2025 Dr. Frances Natarajan MD Nurse Practitioner Active Start: February Dr. Mason Mina MD Nurse Practitioner Active S tart: March 04, 2025 Dr. Chalino Harp MD Nurse Practitioner Active St art: March 04, 2025 Dr. Matthew Calixto MD Nurse Practitioner Active S tart: March 04, 2025 Dr. Juana Mendez MD Nurse Practitioner Active Start: March 04, 2025 Dr. Oni Perkins MD Nurse Practitioner Active Start: March 04, 2025 Dr. Germania Lance MD Nurse Practitioner Active Start: March 04, 2025 Dr. Antione Thompson MD Nurse Practitioner Active Start: March 04, 2025 Dr. Kev Albert MD Nurse Practitioner Active Start: March 04, 2025 Dr. Gibson Dwyer MD Nurse Practitioner Active Start: March 04, 2025 Dr. Omar Castillo DO Nurse Practitioner Active Start: March 04, 2025 Dr. Anabel Cummins MD Nurse Practitioner Active St art: March 04, 2025 Dr. Ingrid Fonseca MD Nurse Practitioner Active Start: March 04, 2025 Dr. Warren Stockton DO Nurse Practitioner Active Start: March 04, 2025 Dr. Moses Damon MD Nurse Practitioner Active Start: March 04, 2025 Dr. Gabino Malik MD Nurse Practitioner Active Start: March 04, 2025 Dr. Donell Rendon MD Nurse Practitioner Active Start: February Dr. Terry Flores MD Nurse Practitioner Active Start: March 04, 2025 Amira Mai NP, SAUSAGE STUFFER-C Nurse Practitioner Active Start: March 04, 2025 Debra Bunn NP-C Nurse Practitioner Active Start: March 04, 2025 Dr. Linda Marte MD Nurse Practitioner Active Start: March 04, 2025 Team Status: Active Member Role/Relationship Status Dates Dr. Peter Ellis MD Primary care physician Active Start: March 04, 2025 Dr. Frieda Laurent MD Emergency Departmen t Physician Active Start: March 04, 2025 Dr. Desiree Trent MD Admitting physician Active Start: March 04, 2025 Dr. Desiree Trent MD Nurse Practitioner Active Start: March 04, 2025 Dr. Esa Ponce MD Nurse Practitioner Active Start: March 04, 2025 Dr. Giovanni Batista MD Nurse Practitioner Active Sta rt: March 04, 2025 Dr. Geovany Garcia MD Nurse Practitioner Active Start: March 04, 2025 Dr. Mario Dunaway DO Nurse Practitioner Active S tart: March 04, 2025 Dr. Mitzy Mohamud MD Nurse Practitioner Active Start: March 04, 2025 Dr. Deng Burnette MD Nurse Practitioner Active Start: March 04, 2025 Dr. Caden Kurtz MD Nurse Practitioner Active Start: March 04, 2025 Dr. Frances Natarajan MD Nurse Practitioner Active Start: February Dr. Mason Mina MD Nurse Practitioner Active S tart: March 04, 2025 Dr. Chalino Harp MD Nurse Practitioner Active St art: March 04, 2025 Dr. Matthew Calixto MD Nurse Practitioner Active S tart: March 04, 2025 Dr. Juana Mendez MD Nurse Practitioner Active Start: March 04, 2025 Dr. Oni Perkins MD Nurse Practitioner Active Start: March 04, 2025 Dr. Germania Lance MD Nurse Practitioner Active Start: March 04, 2025 Dr. Antione Thompson MD Nurse Practitioner Active Start: March 04, 2025 Dr. Kev Albert MD Nurse Practitioner Active Start: March 04, 2025 Dr. Gibson Dwyer MD Nurse Practitioner Active Start: March 04, 2025 Dr. Omar Castillo DO Nurse Practitioner Active Start: March 04, 2025 Dr. Anabel Cummins MD Nurse Practitioner Active St art: March 04, 2025 Dr. Ingrid Fonseca MD Nurse Practitioner Active Start: March 04, 2025 Dr. Warren Stockton DO Nurse Practitioner Active Start: March 04, 2025 Dr. Moses Damon MD Nurse Practitioner Active Start: March 04, 2025 Dr. Gabino Malik MD Nurse Practitioner Active Start: March 04, 2025 Dr. Donell Rendon MD Nurse Practitioner Active Start: February Dr. Terry Flores MD Nurse Practitioner Active Start: March 04, 2025 Amira Mai NP, SAUSAGE STUFFER-C Nurse Practitioner Active Start: March 04, 2025 Debra Bunn NP-C Nurse Practitioner Active Start: March 04, 2025 Dr. Linda Marte MD Attending physician Active Start: March 04, 2025 Dr. Linda Marte MD Nurse Practitioner Active Start: March 04, 2025 Team Status: Active Member Role/Relationship Status Dates Dr. Peter Ellis MD Primary care physician Active Start: March 05, 2025 Dr. [facility] Active Start: March 05, 2025 Dr. Desiree Trent MD Admitting physician Active Start: March 05, 2025 Dr. Desiree Trent MD Nurse Practitioner Active Start: March 05, 2025 Dr. Esa Ponce MD Nurse Practitioner Active Start: March 05, 2025 Dr. Giovanni Batista MD Nurse Practitioner Active Sta rt: March 05, 2025 Dr. Geovany Garcia MD Nurse Practitioner Active Start: March 05, 2025 Dr. Mario Dunaway DO Nurse Practitioner Active S tart: March 05, 2025 Dr. Mitzy Mohamud MD Nurse Practitioner Active Start: March 05, 2025 Dr. Deng Burnette MD Nurse Practitioner Active Start: March 05, 2025 Dr. Caden Kurtz MD Nurse Practitioner Active Start: March 05, 2025 Dr. Frances Natarajan MD Nurse Practitioner Active Start: February Dr. Mason Mina MD Nurse Practitioner Active S tart: March 05, 2025 Dr. Chalino Harp MD Nurse Practitioner Active St art: March 05, 2025 Dr. Matthew Calixto MD Nurse Practitioner Active S tart: March 05, 2025 Dr. Juana Mendez MD Nurse Practitioner Active Start: March 05, 2025 Dr. Oni Perkins MD Nurse Practitioner Active Start: March 05, 2025 Dr. Germania Lance MD Nurse Practitioner Active Start: March 05, 2025 Dr. Antione Thompson MD Nurse Practitioner Active Start: March 05, 2025 Dr. Kev Albert MD Nurse Practitioner Active Start: March 05, 2025 Dr. Gibson Dwyer MD Nurse Practitioner Active Start: March 05, 2025 Dr. Omar Castillo DO Nurse Practitioner Active Start: March 05, 2025 Dr. Anabel Cummins MD Nurse Practitioner Active St art: March 05, 2025 Dr. Ingrid Fonseca MD Nurse Practitioner Active Start: March 05, 2025 Dr. Warren Stockton DO Nurse Practitioner Active Start: March 05, 2025 Dr. Moses Damon MD Nurse Practitioner Active Start: March 05, 2025 Dr. Gabino Malik MD Nurse Practitioner Active Start: March 05, 2025 Dr. Donell Rendon MD Nurse Practitioner Active Start: February Dr. Terry Flores MD Nurse Practitioner Active Start: March 05, 2025 Amira Mai SAUSAGE STUFFER, SAUSAGE STUFFER-C Nurse Practitioner Active Start: March 05, 2025 Debra Bunn SAUSAGE STUFFER-C Nurse Practitioner Active Start: March 05, 2025 Dr. Linda Marte MD Attending physician Active Start: March 05, 2025 Dr. Linda Marte MD Nurse Practitioner Active Start: March 05, 2025 Team Status: Active Member Role/Relationship Status Dates Dr. Peter Ellis MD Primary care physician Active Start: March 06, 2025 Dr. Frieda Laurent MD Emergency Departmen t Physician Active Start: March 06, 2025 Dr. Desiree Trent MD Admitting physician Active Start: March 06, 2025 Dr. Desiree Trent MD Nurse Practitioner Active Start: March 06, 2025 Dr. Linda Marte MD Attending physician Active Start: March 06, 2025 Dr. Linda Marte MD Nurse Practitioner Active Start: March 06, 2025 Dr. Esa Ponce MD Nurse Practitioner Active Start: March 06, 2025 Dr. Giovanni Batista MD Nurse Practitioner Active Sta rt: March 06, 2025 Dr. Geovany Garcia MD Nurse Practitioner Active Start: March 06, 2025 Dr. Mario Dunaway , Nurse Practitioner Active S tart: March 06, 2025 Dr. Mitzy Mohamud MD Nurse Practitioner Active Start: March 06, 2025 Dr. Deng Burnette MD Nurse Practitioner Active Start: March 06, 2025 Dr. Caden Kurtz MD Nurse Practitioner Active Start: March 06, 2025 Dr. Frances Natarajan MD Nurse Practitioner Active Start: February Dr. Mason Mina MD Nurse Practitioner Active S tart: March 06, 2025 Dr. Chalino Harp MD Nurse Practitioner Active St art: March 06, 2025 Dr. Matthew Calixto MD Nurse Practitioner Active S tart: March 06, 2025 Dr. Juana Mendez MD Nurse Practitioner Active Start: March 06, 2025 Dr. Oni Perkins MD Nurse Practitioner Active Start: March 06, 2025 Dr. Germania Lance MD Nurse Practitioner Active Start: March 06, 2025 Dr. Antione Thompson MD Nurse Practitioner Active Start: March 06, 2025 Dr. Kev Albert MD Nurse Practitioner Active Start: March 06, 2025 Dr. Gibson Dwyer MD Nurse Practitioner Active Start: March 06, 2025 Dr. Omar Castillo DO Nurse Practitioner Active Start: March 06, 2025 Dr. Anabel Cummins MD Nurse Practitioner Active St art: March 06, 2025 Dr. Ingrid Fonseca MD Nurse Practitioner Active Start: March 06, 2025 Dr. Warren Stockton , Nurse Practitioner Active Start: March 06, 2025 Dr. Moses Damon MD Nurse Practitioner Active Start: March 06, 2025 Dr. Gabino Malik MD Nurse Practitioner Active Start: March 06, 2025 Dr. Donell Rendon MD Nurse Practitioner Active Start: February Dr. Terry Flores MD Nurse Practitioner Active Start: March 06, 2025 Amira Mai NP, [employer]-C Nurse Practitioner Active Start: March 06, 2025 Debra Bunn NP-C Nurse Practitioner Active Start: March 06, 2025 Team Status: Active Member Role/Relationship Status Dates Dr. Peter Ellis MD Primary care physician Active Start: March 07, 2025 Dr. Frieda Laurent MD Emergency Departmen t Physician Active Start: March 07, 2025 Dr. Desiree Trent MD Admitting physician Active Start: March 07, 2025 Dr. Desiree Trent MD Nurse Practitioner Active Start: March 07, 2025 Dr. Esa Ponce MD Nurse Practitioner Active Start: March 07, 2025 Dr. Giovanni Batista MD Nurse Practitioner Active Sta rt: March 07, 2025 Dr. Geovany Garcia MD Nurse Practitioner Active Start: March 07, 2025 Dr. Mario Dunaway DO Nurse Practitioner Active S tart: March 07, 2025 Dr. Mitzy Mohamud MD Nurse Practitioner Active Start: March 07, 2025 Dr. Deng Burnette MD Nurse Practitioner Active Start: March 07, 2025 Dr. Caden Kurtz MD Nurse Practitioner Active Start: March 07, 2025 Dr. Frances Natarajan MD Nurse Practitioner Active Start: February Dr. Mason Mina MD Nurse Practitioner Active S tart: March 07, 2025 Dr. Chalino Harp MD Nurse Practitioner Active St art: March 07, 2025 Dr. Matthew Calixto MD Nurse Practitioner Active S tart: March 07, 2025 Dr. Juana Mendez MD Nurse Practitioner Active Start: March 07, 2025 Dr. Oni Perkins MD Nurse Practitioner Active Start: March 07, 2025 Dr. Germania Lance MD Nurse Practitioner Active Start: March 07, 2025 Dr. Antione Thompson MD Nurse Practitioner Active Start: March 07, 2025 Dr. Kev Albert MD Nurse Practitioner Active Start: March 07, 2025 Dr. Gibson Dwyer MD Nurse Practitioner Active Start: March 07, 2025 Dr. Omar Castillo , Nurse Practitioner Active Start: March 07, 2025 Dr. Anabel Cummins MD Nurse Practitioner Active St art: March 07, 2025 Dr. Ingrid Fonseca MD Nurse Practitioner Active Start: March 07, 2025 Dr. Warren Stockton , Nurse Practitioner Active Start: March 07, 2025 Dr. Moses Damon MD Nurse Practitioner Active Start: March 07, 2025 Dr. Gabino Malik MD Nurse Practitioner Active Start: March 07, 2025 Dr. Donell Rendon MD Nurse Practitioner Active Start: February Dr. Terry Flores MD Nurse Practitioner Active Start: March 07, 2025 Amira Mai NP, [employer]-C Nurse Practitioner Active Start: March 07, 2025 Debra Bunn NP-C Nurse Practitioner Active Start: March 07, 2025 Dr. Carl Couch DO Attending physician Active Start: March 07, 2025 Dr. Carl Couch DO Nurse Practitioner Active Start: March 07, 2025 Dr. Linda Marte MD Nurse Practitioner Active Start: March 07, 2025 Dr. Ab Nur MD Nurse Practitioner Active Start: March 07, 2025 Team Status: Active Member Role/Relationship Status Dates Dr. Peter Ellis MD Primary care physician Active Start: March 08, 2025 Dr. Frieda Laurent MD Emergency Departmen t Physician Active Start: March 08, 2025 Dr. Desiree Trent MD Admitting physician Active Start: March 08, 2025 Dr. Desiree Trent MD Nurse Practitioner Active Start: March 08, 2025 Dr. Esa Ponce MD Nurse Practitioner Active Start: March 08, 2025 Dr. Giovanni Batista MD Nurse Practitioner Active Sta rt: March 08, 2025 Dr. Geovany Garcia MD Nurse Practitioner Active Start: March 08, 2025 Dr. Mario Dunaway DO Nurse Practitioner Active S tart: March 08, 2025 Dr. Mitzy Mohamud MD Nurse Practitioner Active Start: March 08, 2025 Dr. Deng Burnette MD Nurse Practitioner Active Start: March 08, 2025 Dr. Caden Kurtz MD Nurse Practitioner Active Start: March 08, 2025 Dr. Frances Natarajan MD Nurse Practitioner Active Start: February Dr. Mason Mina MD Nurse Practitioner Active S tart: March 08, 2025 Dr. Chalino Harp MD Nurse Practitioner Active St art: March 08, 2025 Dr. Matthew Calixto MD Nurse Practitioner Active S tart: March 08, 2025 Dr. Juana Mendez MD Nurse Practitioner Active Start: March 08, 2025 Dr. Oni Perkins MD Nurse Practitioner Active Start: March 08, 2025 Dr. Germania Lance MD Nurse Practitioner Active Start: March 08, 2025 Dr. Antione Thompson MD Nurse Practitioner Active Start: March 08, 2025 Dr. Kev Albert MD Nurse Practitioner Active Start: March 08, 2025 Dr. Gibson Dwyer MD Nurse Practitioner Active Start: March 08, 2025 Dr. Omar Castillo DO Nurse Practitioner Active Start: March 08, 2025 Dr. Anabel Cummins MD Nurse Practitioner Active St art: March 08, 2025 Dr. Ingrid Fonseca MD Nurse Practitioner Active Start: March 08, 2025 Dr. Warren Stockton DO Nurse Practitioner Active Start: March 08, 2025 Dr. Moses Damon MD Nurse Practitioner Active Start: March 08, 2025 Dr. Gabino Malik MD Nurse Practitioner Active Start: March 08, 2025 Dr. Donell Rendon MD Nurse Practitioner Active Start: February Dr. Terry Flores MD Nurse Practitioner Active Start: March 08, 2025 Amira Mai NP, [employer]-C Nurse Practitioner Active Start: March 08, 2025 Debra Bunn NP-C Nurse Practitioner Active Start: March 08, 2025 Dr. Carl Couch DO Attending physician Active Start: March 08, 2025 Dr. Carl Couch DO Nurse Practitioner Active Start: March 08, 2025 Dr. Linda Marte MD Nurse Practitioner Active Start: March 08, 2025 Dr. Ab Nur MD Nurse Practitioner Active Start: March 08, 2025 Team Status: Active Member Role/Relationship Status Dates Dr. Peter Ellis MD Primary care physician Active Start: March 10, 2025 Dr. Juve DUNAWAY MD Attending physician Active Start: March 10, 2025 Team Status: Active Member Role/Relationship Status Dates Dr. Peter Ellis MD Primary care physician Active Start: March 31, 2025 Dr. Juve DUNAWAY MD Attending physician Active Start: March 31, 2025 Goals (unrecognized section and content) Goals [...] BE BASED ON THE PRIMARY CLINICAL RECORDS. [employer] provides no warranty or guarantee of the accuracy or completeness of information in this document.
[2025-06-02 08:22] LABS: Hematocrit 30.8 % (37-47); Hemoglobin 9.7 g/dL (12.0-15.0); Immature Granulocytes Count 0.010 X10^3/uL (0.0-0.0); Mean Corp Hgb Conc 31.5 g/dL (32-36); Mean Corpuscular Volume 93.9 fL (81-99); Mean Platelet Vol. 11.4 fl (6.2-12.0); NRBC Flagged by Analyzer 0 % (0-5); Platelet Count 131 K/mm3 (150-450); RBC Distribution Width CV 14.1 % (11.6-14.6); RBC Distribution Width SD 49.0 fl (35.1-43.9); Red Blood Count 3.28 M/mm3 (4.2-5.4); White Blood Count 4.1 K/mm3 (4.4-11.0)
[2025-06-02 08:54] LABS: Anion Gap 10 (5-15); BUN 19 mg/dL (4-19); BUN/Creat Ratio 27.2 RATIO (10-20); Calcium,Total 9.2 mg/dL (7.6-11.0); Carbon Dioxide 26.6 mmol/L (21.0-32.0); Chloride 102 mmol/L (98-108); Glucose 145 mg/dL (70-99); Potassium 4.0 mmol/L (3.3-5.1); T4 Total, Thyroxin 8.4 ug/dL (4.8-13.9)
[2025-06-02 09:26] LABS: Cholesterol 102 mg/dL (<=200); Low Density Lipoprotein Calc. 59 mg/dL; Triglycerides 105 mg/dL; Very Low Density Lipoprotein 21 mg/dL (5-40); cholesterol:hdl ratio screen 4.49
== END ==
LOC: OLS.SW 05:00
PROVIDERS: PCP Internal Medicine; Visit Provider Family Medicine
DX: E03.9 Hypothyroidism, unspecified (principal); E11.65 Type 2 diabetes mellitus with hyperglycemia; D50.9 Iron deficiency anemia, unspecified; G93.41 Metabolic encephalopathy
CPT/HCPCS: 36415; 80048; 80061; 83036; 84436; 84443; 85025

== ENCOUNTER 2025-06-05 00:42 | Emergency (ER) | payer MEDICARE, BC, MEDICAID, SELFPAY ==
[2025-06-05 00:42] VITALS: TEMP 37; BMI 36.5
[2025-06-05 00:45] VITALS: BP 114/61; PULSE 69; RESP 18; O2SAT 96
--- OUTSIDE RECORDS SUMMARY | 2025-06-05 01:21 | XMS RPT_ITS | CCD ---
Author Organization [facility] Care Team Providers Care Creative Engagement Director Name Role Phone Peter Ellis MD Primary Care Provider [facility], Keti Unavailable Peter Ellis MD Primary Care Provider Peter Ellis MD Primary Care Provider [facility], Jadon Unavailable Dr. Peter Ellis Primary Care [...] DEJESUS, Dr. Peter Hartman Primary Care Provider [phone] Dr. Darcy Elias MD Attending Provider Unavaila kennedy Ellis MD, Dr. Peter Hartman Primary Care Provider Oleg DEJESUS, Dr. An Attending Provider Unavail [...] Provider Yomaira DEJESUS, Dr. Vilchis Other Provider Jerardo DEJESUS, Dr. Negrete Other Provider Delgado DEJESUS, Dr. Daniels Other Provider Keeley DEJESUS, Dr. Cuevas Other Provider [phone] Loyd DEJESUS, Dr. Allred Other Provider [phone] Durga DEJESUS, Dr. Castro Other Provider [phone] Andrea DEJESUS, Dr. Arias Other Provider Gregorio DEJESUS, Dr. Bunn Other Provider Unavailabl jazmyn Lance MD, Dr. Solo Other Provider [phone] Donna DEJESUS, Dr. Talbot Other Provider Roosevelt DEJESUS, Dr. Angulo Other Provider [phone] Reymundo DEJESUS, Dr. Arreaga Other Provider Anna SLOAN, Dr. Nelson Other Provider [phone] Maria G DEJESUS, Dr. Little Other Provider [phone] Marian DEJESUS, Dr. Quintero Other Provider Dr. Warren Stockton DO Other Provider Marisol DEJESUS, Dr. Lopes Other Provider Chadwick Malik MD, Dr. Lloyd Other Provider Julieta DEJESUS, Dr. Marley Other Provider [phone] Mark DEJESUS, Dr. Stewart Other Provider Pau PLASTER MOLD MAKER-C, Amira Other Provider Oni PLASTER MOLD MAKER-C, Debra Jimenez Other Provider Dr. Carl Couch [...] Gume SLOAN, Dr. Martin Nurse Practitioner [phone] Oneida DEJESUS, Dr. Mitzy Prince Nurse Practitioner Yomaira DEJESUS, Dr. Vilchis Nurse Practitioner Jerardo DEJESUS, Dr. Negrete Nurse Practitioner [phone] Delgado DEJESUS, Dr. Daniels Nurse Practitioner Keeley DEJESUS, Dr. Cuevas Nurse Practitioner Loyd DEJESUS, Dr. Allred Nurse Practitioner Durga DEJESUS, Dr. Castro Nurse Practitioner Andrea DEJESUS, Dr. Arias Nurse Practitioner [phone] Gregorio DEJESUS, Dr. Bunn Nurse Practitioner Unavail issa Lance MD, Dr. Solo Nurse Practitioner [phone] Donna DEJESUS, Dr. Talbot Nurse Practitioner Roosevelt DEJESUS, Dr. Angulo Nurse Practitioner Reymundo DEJESUS, Dr. Arreaga Nurse Practitioner Anna SLOAN, Dr. Nelson Nurse Practitioner Maria G DEJESUS, Dr. Little Nurse Practitioner Marian DEJEUSS, Dr. Quintero Nurse Practitioner Kath SLOAN, Dr. Kelley Nurse Practitioner Marisol DEJESUS, Dr. Lopes Nurse Practitioner Lidia alexus Malik MD, Dr. Lloyd Nurse Practitioner [phone] Julieta DEJESUS, Dr. Marley Nurse Practitioner Mrak DEJESUS, Dr. Stewart Nurse Practitioner Pau PLASTER MOLD MAKER-C, Amira Nurse Practitioner Oni PLASTER MOLD MAKER-C, Debra Jimenez Nurse Practitioner Dr. Carl Couch DO Attending Physician Estuardo DEJESUS, Dr. Linda Mcmillan Nurse Practitioner Liudmila DEJESUS, Dr. Berger Nurse Practitioner Twan DEJESUS, Dr. Ramírez Attending Physician Twan DEJESUS, Dr. Ramírez Referring Provider Dr. Mario Dunaway DO Attending Physician Estuardo DEJESUS, Dr. Linda Mcmillan Attending Physician Dr. Carl Couch DO Nurse Practitioner Talampas, [...] Omar Consulting Unavailable Anabel Cummins Consulting Unavailable Malinta, Greeryah Consulting Unavailable Fernstrom, Warren Consulting Unavailable Panchabhai, Moses Consulting Unavailable King, Gabino Consulting Unavailable Kuppuswagertrude, Vasanthan Consulting UnavailTerry Aceves Consulting Unavailable Pau LOOYLA, Amira Consulting Unavailable Debra Bunn Consulting Unavailable Koram, Linda Deyanira Consulting Unavailable Ab uNr Consulting Unavailable Darcy Herrera Attending Unavailable Talampas, [...] Consulting Unavailable Maria G, Sujoy Consulting Unavailable Malinta, Soleyah Consulting Unavailable Fernstrom, Warren Consulting Unavailable [...] [CONTRAST DYE] Drug Intolerance 4 GI Upset [facility] Work Phone: (20 sources) FLUoxetine; Translations: [FLUOXETINE] Drug Allergy 9 Intolerance [facility] Work Phone: (20 sources) Meclizine; Translations: [MECLIZINE] Drug Allergy 4 Mental Status Change, Other: See Comments [facility] Work Phone: Comment on above: PT BECAME EXTREMELY FATIGUED & WAS UNABLE TO WALK AFTER TAKING 12.5MG OF MECLIZINE. (20 sources) venlafaxine; Translations: [VENLAFAXINE HCL] Drug Allergy 9 Rash [facility] Comment on above: CHEST BROKE OUT, GOT REAL DIZZY. (1 source) Meclizine Drug Allergy 5 [facility] Repository (1 source) venlafaxine Drug Allergy 5 [facility] Medications Current Medications Medication Drug [...] morning docusate sodium 50 mg / sennosides, shelter 8.6 mg oral tablet (6 sources) Start: [...] by mouth daily with breakfast. Gets through [facility]. 0 07/25/2022 Active Start: 05-28-2019 End: 12-03-2023 take 1 tablet by mouth once daily Empagliflozin 10 MG tablet Discontinued 10 mg PO DAILY May 28, 2019 1:00am December 03, 2023 12:22am dm Comment on above: Take 1 tablet by heraclio th daily with breakfast. Take 1 tablet by heraclio th daily with breakfast. Gets through [facility]. ertapenem 1000 mg injection (2 [...] heraclio once daily. [facility],Friday,Friday. Take on empty stomach. For [...] subcutaneously one time a week. Gets through [employer] [facility]. 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] Episodic Other [...] 08-13-2021 Episodic Other aftercare (1 source) 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, [address] Calcium [Mass/Vol] 9.7 mg/dL Normal 7.6-11.0 [facility] Comment on above: Order Comment: 504.1 Performed By: #### L 100.0500, L500.2500 ####[facility] [address] [place], [address] Chloride [Moles/Vol] 101 mmol/L Normal 98-108 [facility] Comment on above: Order Comment: 504.1 Performed By: #### L 100.0500, L500.2500 ####[facility] [address] [place], [address] CO2 [Moles/Vol] 24.0 mmol/L Normal 21.0-32.0 [facility] Comment on above: Order Comment: 504.1 Performed By: #### L 100.0500, L500.2500 ####[facility] [address] [place], [address] Creatinine [Mass/Vol] 0.83 mg/dL Normal 0.70-1.20 [facility] Comment on above: Order Comment: 504.1 Performed By: #### L 100.0500, L500.2500 ####[facility] [address] [place], [address] GAP 13 Normal 5-15 [facility] Comment on above: Order Comment: 504.1 Performed By: #### L 100.0500, L500.2500 ####[facility] [address] [place], [address] GFR/1.73 sq M.predicted among non-blacks MDRD (S/P/Bld) [Vol rate/Area] 71 mL/min/{1.73_m2} Normal >60 [facility] Comment on above: Order Comment: 504.1 Result Comment: mL/m in/1.73m2 CKD-EPI Creatinine Equation (2020) Performed By: #### L 100.0500, L500.2500 ####[facility] [address] [place], [address] Glucose [Mass/Vol] 249 mg/dL High 70-99 [facility] Comment on above: Order Comment: 504.1 Performed By: #### L 100.0500, L500.2500 ####[facility] [address] [place], [address] Potassium [Moles/Vol] 4.1 mmol/L Normal 3.3-5.1 [facility] Comment on above: Order Comment: 504.1 Performed By: #### L 100.0500, L500.2500 ####[facility] [address] [place], [address] Sodium [Moles/Vol] 138 mmol/L Normal 133-145 [facility] Comment on above: Order Comment: 504.1 Performed By: #### L 100.0500, L500.2500 ####[facility] [address] [place], [address] Urea nitrogen [Mass/Vol] 13 mg/dL Normal 4-19 [facility] Comment on above: Order Comment: 504.1 Performed By: #### L 100.0500, L500.2500 ####[facility] [address] [place], [address] CBC-Complete Blood Cnt No Di ffon 03-31-2025 Erythrocyte distribution width (RBC) [Ratio] 15.3 % High 11.6-14.6 [facility] Comment on above: Order Comment: 504.1 Performed By: #### L 100.0500, L500.2500 ####[facility] [address] [place], [address] Hematocrit (Bld) [Volume fraction] 32.5 % Low 37-47 [facility] Comment on above: Order Comment: 504.1 Performed By: #### L 100.0500, L500.2500 ####[facility] [address] [place], [address] Hemoglobin (Bld) [Mass/Vol] 10.1 g/dL Low 12.0-15.0 [facility] Comment on above: Order Comment: 504.1 Performed By: #### L 100.0500, L500.2500 ####[facility] [address] [place], [address] MCH (RBC) [Entitic mass] 30.9 pg Normal 27.0-32.0 [facility] Comment on above: Order Comment: 504.1 Performed By: #### L 100.0500, L500.2500 ####[facility] [address] [place], [address] MCHC (RBC) [Mass/Vol] 31.1 g/dL Low 32-36 [facility] Comment on above: Order Comment: 504.1 Performed By: #### L 100.0500, L500.2500 ####[facility] [address] [place], [address] MCV (RBC) [Entitic vol] 99.4 fL High 81-99 [facility] Comment on above: Order Comment: 504.1 Performed By: #### L 100.0500, L500.2500 ####[facility] [address] [place], [address] Platelet mean volume (Bld) [Entitic vol] 11.2 fL Normal 6.2-12.0 [facility] Comment on above: Order Comment: 504.1 Performed By: #### L 100.0500, L500.2500 ####[facility] [address] [place], [address] Platelets (Bld) [#/Vol] 154 10*3/uL Normal 150-450 [facility] Comment on above: Order Comment: 504.1 Performed By: #### L 100.0500, L500.2500 ####[facility] [address] [place], [address] RBC (Bld) [#/Vol] 3.27 10*6/uL Low 4.2-5.4 [facility] Comment on above: Order Comment: 504.1 Performed By: #### L 100.0500, L500.2500 ####[facility] [address] [place], [address] RDW SD 56.4 fl High 35.1-43.9 [facility] Comment on above: Order Comment: 504.1 Performed By: #### L 100.0500, L500.2500 ####[facility] [address] [place], [address] WBC (Bld) [#/Vol] 6.7 10*3/uL Normal 4.4-11.0 [facility] Comment on above: Order Comment: 504.1 Performed By: #### L 100.0500, L500.2500 ####[facility] [address] [place], [address] Carbon dioxide, total [Moles /volume] in Central venous bloodOrdered By: Juve Dejesus on 03-31-2025 CO2 [Moles/Vol] 24.0 mmol/L 21.0-32.0 [facility] Chloride assayOrdered By: Baljit Dejesus on 03-31-2025 Chloride [Moles/Vol] 101 mmol/L 98-108 [facility] Erythrocyte distribution wid th ratioOrdered By: Juve Dejesus on 03-31-2025 Erythrocyte distribution width (RBC) [Ratio] 15.3 % High 11.6-14.6 [facility] Erythrocyte distribution wid th standard deviationOrdered By: Juve Dejesus on 03-31-2025 Erythrocyte distribution width (RBC) [Ratio] 56.4 fl High 35.1-43.9 [facility] Glomerular filtration rate ( GFR) estimation/1.73 sq m using serum, plasma, or whole bOrdered By: Juve Dejesus on 03-31-2025 GFR/1.73 sq M.predicted among non-blacks MDRD (S/P/Bld) [Vol rate/Area] 71 mL/min/{1.73_m2} >60 [facility] Comment on above: mL/min/1.73m2 CKD-EP I Creatinine Equation (2020) Hematocrit Auto (Bld) [Volum e fraction]Ordered By: Juve Dejesus on 03-31-2025 Hematocrit (Bld) [Volume fraction] 32.5 % Low 37-47 [facility] Hemoglobin measurementOrdere d By: Juve Dejesus on 03-31-2025 Hemoglobin (Bld) [Mass/Vol] 10.1 g/dL Low 12.0-15.0 [facility] MCV (mean corpuscular volume ) determinationOrdered By: Juve Dejesus on 03-31-2025 MCV (RBC) [Entitic vol] 99.4 fL High 81-99 [facility] Mean corpuscular hemoglobin (MCH) determinationOrdered By: Juve Dejesus on 03-31-2025 MCH (RBC) [Entitic mass] 30.9 pg 27.0-32.0 [facility] Mean corpuscular hemoglobin concentration (MCHC) determinationOrdered By: Juve Dejesus on 03-31-2025 MCHC (RBC) [Mass/Vol] 31.1 g/dL Low 32-36 [facility] Mean platelet volume determi nationOrdered By: Juve Dejesus on 03-31-2025 Platelet mean volume (Bld) [Entitic vol] 11.2 fL 6.2-12.0 [facility] Platelet countOrdered By: Baljit Dejesus on 03-31-2025 Platelets (Bld) [#/Vol] 154 10*3/uL 150-450 [facility] Potassium measurement (mass/ volume)Ordered By: Juve Dejesus on 03-31-2025 Potassium (Unsp spec) [Mass/Vol] 4.1 mmol/L 3.3-5.1 [facility] RBC Auto (Bld) [#/Vol]Ordere d By: Juve Dejesus on 03-31-2025 RBC (Bld) [#/Vol] 3.27 10*6/uL Low 4.2-5.4 [facility] Serum creatinine measurement (mass/volume)Ordered By: Juve Dejesus on 03-31-2025 Creatinine [Mass/Vol] 0.83 mg/dL 0.70-1.20 [facility] Serum glucose measurement (m ass/volume)Ordered By: Juve Dejesus on 03-31-2025 Glucose [Mass/Vol] 249 mg/dL High 70-99 [facility] Serum or plasma calcium sonu urement (mass/volume)Ordered By: Juve Dejesus on 03-31-2025 Calcium [Mass/Vol] 9.7 mg/dL 7.6-11.0 [facility] Serum or plasma urea nitroge n measurement (mass/volume)Ordered By: Juve Dejesus on 03-31-2025 Urea nitrogen [Mass/Vol] 13 mg/dL 4- [facility] Sodium levelOrdered By: Samy Dejesus on 03-31-2025 Sodium [Moles/Vol] 138 mmol/L 133-145 [facility] White blood cell (WBC) count Ordered By: Juve Dejesus on 03-31-2025 WBC (Bld) [#/Vol] 6.7 10*3/uL 4.4-11.0 [facility] Basic Metabolic Profile (BMP )on 03-12-2025 BUN Normal - [facility] Comment on above: Result Comment: Canc elled via OM: Order cancelled - Patient discharged Performed By: #### L 100.0100, L500.2500 ####[facility] [address] [place], [place], [address] BUN/CRE Normal - [facility] Comment on above: Result Comment: Canc elled via OM: Order cancelled - Patient discharged Performed By: #### L 100.0100, L500.2500 ####[facility] [address] [place], [address] Calcium Normal 7.6-11.0 [facility] Comment on above: Result Comment: Canc elled via OM: Order cancelled - Patient discharged Performed By: #### L 100.0100, L500.2500 ####[facility] [address] [place], [address] CL Normal 98-108 [facility] Comment on above: Result Comment: Canc elled via OM: Order cancelled - Patient discharged Performed By: #### L 100.0100, L500.2500 ####[facility] [address] [place], [address] CO2 Normal 21.0-32.0 [facility] Comment on above: Result Comment: Canc elled via OM: Order cancelled - Patient discharged Performed By: #### L 100.0100, L500.2500 ####[facility] [address] [place], [address] CREAT,SERUM Normal 0.70-1.20 [facility] Comment on above: Result Comment: Canc elled via OM: Order cancelled - Patient discharged Performed By: #### L 100.0100, L500.2500 ####[facility] [address] [place], [address] eGFR Normal >60 [facility] Comment on above: Result Comment: Canc elled via OM: Order cancelled - Patient discharged Performed By: #### L 100.0100, L500.2500 ####[facility] [address] [place], [address] GAP Normal 5-15 [facility] Comment on above: Result Comment: Canc elled via OM: Order cancelled - Patient discharged Performed By: #### L 100.0100, L500.2500 ####[facility] [address] [place], [address] GLU Normal 70-99 [facility] Comment on above: Result Comment: Canc elled via OM: Order cancelled - Patient discharged Performed By: #### L 100.0100, L500.2500 ####[facility] [address] [place], [address] Potassium Normal 3.3-5.1 [facility] Comment on above: Result Comment: Canc elled via OM: Order cancelled - Patient discharged Performed By: #### L 100.0100, L500.2500 ####[facility] [address] [place], [address] Basic Metabolic Profile (BMP) Normal 133-145 [facility] Comment on above: Result Comment: Canc elled via OM: Order cancelled - Patient discharged Performed By: #### L 100.0100, L500.2500 ####[facility] [address] [place], [address] CBC W/Diff, Automatedon - Absolute Neut Normal 2.0-7.7 [facility] Comment on above: Result Comment: Canc elled via OM: Order cancelled - Patient discharged Performed By: #### L 100.0100, L500.2500 ####[facility] [address] [place], [address] HCT Normal 37-47 [facility] Comment on above: Result Comment: Canc elled via OM: Order cancelled - Patient discharged Performed By: #### L 100.0100, L500.2500 ####[facility] [address] [place], [address] HGB Normal 12.0-15.0 [facility] Comment on above: Result Comment: Canc elled via OM: Order cancelled - Patient discharged Performed By: #### L 100.0100, L500.2500 ####[facility] [address] [place], [address] MCH Normal 27.0-32.0 [facility] Comment on above: Result Comment: Canc elled via OM: Order cancelled - Patient discharged Performed By: #### L 100.0100, L500.2500 ####[facility] [address] [place], [address] MCHC Normal 32-36 [facility] Comment on above: Result Comment: Canc elled via OM: Order cancelled - Patient discharged Performed By: #### L 100.0100, L500.2500 ####[facility] [address] [place], [address] MCV Normal 81-99 [facility] Comment on above: Result Comment: Canc elled via OM: Order cancelled - Patient discharged Performed By: #### L 100.0100, L500.2500 ####[facility] [address] [place], [address] NEUT% Normal 47-70 [facility] Comment on above: Result Comment: Canc elled via OM: Order cancelled - Patient discharged Performed By: #### L 100.0100, L500.2500 ####[facility] [address] [place], [address] PLT Normal 150-450 [facility] Comment on above: Result Comment: Canc elled via OM: Order cancelled - Patient discharged Performed By: #### L 100.0100, L500.2500 ####[facility] [address] [place], [address] RBC Normal 4.2-5.4 [facility] Comment on above: Result Comment: Canc elled via OM: Order cancelled - Patient discharged Performed By: #### L 100.0100, L500.2500 ####[facility] [address] [place], [address] RDW CV Normal 11.6-14.6 [facility] Comment on above: Result Comment: Canc elled via OM: Order cancelled - Patient discharged Performed By: #### L 100.0100, L500.2500 ####[facility] [address] [place], [address] RDW SD Normal 35.1-43.9 [facility] Comment on above: Result Comment: Canc elled via OM: Order cancelled - Patient discharged Performed By: #### L 100.0100, L500.2500 ####[facility] [address] [place], [address] WBC Normal 4.4-11.0 [facility] Comment on above: Result Comment: Canc elled via OM: Order cancelled - Patient discharged Performed By: #### L 100.0100, L500.2500 ####[facility] [address] [place], [address] Basic Metabolic Profile (BMP )on 03-11-2025 BUN Normal 4-19 [facility] Comment on above: Result Comment: Canc elled via OM: Order cancelled - Patient discharged Performed By: #### L 500.2500, L100.0100 ####[facility] [address] [place], [address] BUN/CRE Normal 10-20 [facility] Comment on above: Result Comment: Canc elled via OM: Order cancelled - Patient discharged Performed By: #### L 500.2500, L100.0100 ####[facility] [address] [place], [address] Calcium Normal 7.6-11.0 [facility] Comment on above: Result Comment: Canc elled via OM: Order cancelled - Patient discharged Performed By: #### L 500.2500, L100.0100 ####[facility] [address], [address] CL Normal 98-108 [facility] Comment on above: Result Comment: Canc elled via OM: Order cancelled - Patient discharged Performed By: #### L 500.2500, L100.0100 ####[facility] [address] [place], [address] CO2 Normal 21.0-32.0 [facility] Comment on above: Result Comment: Canc elled via OM: Order cancelled - Patient discharged Performed By: #### L 500.2500, L100.0100 ####[facility] [address] [place], [address] CREAT,SERUM Normal 0.70-1.20 [facility] Comment on above: Result Comment: Canc elled via OM: Order cancelled - Patient discharged Performed By: #### L 500.2500, L100.0100 ####[facility] [address] [place], [address] eGFR Normal >60 [facility] Comment on above: Result Comment: Canc elled via OM: Order cancelled - Patient discharged Performed By: #### L 500.2500, L100.0100 ####[facility] [address] [place], [address] GAP Normal 5-15 [facility] Comment on above: Result Comment: Canc elled via OM: Order cancelled - Patient discharged Performed By: #### L 500.2500, L100.0100 ####[facility] [address] [place], [address] GLU Normal 70-99 [facility] Comment on above: Result Comment: Canc elled via OM: Order cancelled - Patient discharged Performed By: #### L 500.2500, L100.0100 ####[facility] [address] [place], [address] Potassium Normal 3.3-5.1 [facility] Comment on above: Result Comment: Canc elled via OM: Order cancelled - Patient discharged Performed By: #### L 500.2500, L100.0100 ####[facility] [address] [place], [address] Basic Metabolic Profile (BMP) Normal 133-145 [facility] Comment on above: Result Comment: Canc elled via OM: Order cancelled - Patient discharged Performed By: #### L 500.2500, L100.0100 ####[facility] [address] [place], [address] CBC W/Diff, Automatedon 02-28 Absolute Neut Normal 2.0-7.7 [facility] Comment on above: Result Comment: Canc elled via OM: Order cancelled - Patient discharged Performed By: #### L 500.2500, L100.0100 ####[facility] [address] [place], [address] HCT Normal 37-47 [facility] Comment on above: Result Comment: Canc elled via OM: Order cancelled - Patient discharged Performed By: #### L 500.2500, L100.0100 ####[facility] [address] [place], [address] HGB Normal 12.0-15.0 [facility] Comment on above: Result Comment: Canc elled via OM: Order cancelled - Patient discharged Performed By: #### L 500.2500, L100.0100 ####[facility] [address] [place], [address] MCH Normal 27.0-32.0 [facility] Comment on above: Result Comment: Canc elled via OM: Order cancelled - Patient discharged Performed By: #### L 500.2500, L100.0100 ####[facility] [address] [place], [address] MCHC Normal 32-36 [facility] Comment on above: Result Comment: Canc elled via OM: Order cancelled - Patient discharged Performed By: #### L 500.2500, L100.0100 ####[facility] [address] [place], [address] MCV Normal 81-99 [facility] Comment on above: Result Comment: Canc elled via OM: Order cancelled - Patient discharged Performed By: #### L 500.2500, L100.0100 ####[facility] [address] [place], [address] NEUT% Normal 47-70 [facility] Comment on above: Result Comment: Canc elled via OM: Order cancelled - Patient discharged Performed By: #### L 500.2500, L100.0100 ####[facility] [address] [place], [address] PLT Normal 150-450 [facility] Comment on above: Result Comment: Canc elled via OM: Order cancelled - Patient discharged Performed By: #### L 500.2500, L100.0100 ####[facility] [address] [place], [address] RBC Normal 4.2-5.4 [facility] Comment on above: Result Comment: Canc elled via OM: Order cancelled - Patient discharged Performed By: #### L 500.2500, L100.0100 ####[facility] [address] [place], [address] RDW CV Normal 11.6-14.6 [facility] Comment on above: Result Comment: Canc elled via OM: Order cancelled - Patient discharged Performed By: #### L 500.2500, L100.0100 ####[facility] [address] [place], [address] RDW SD Normal 35.1-43.9 [facility] Comment on above: Result Comment: Canc elled via OM: Order cancelled - Patient discharged Performed By: #### L 500.2500, L100.0100 ####[facility] [address] [place], [address] WBC Normal 4.4-11.0 [facility] Comment on above: Result Comment: Canc elled via OM: Order cancelled - Patient discharged Performed By: #### L 500.2500, L100.0100 ####[facility] [address] [place], [address] Anion gap in Serum or Plasma Ordered By: Juve Dejesus on 03-10-2025 Anion gap [Moles/Vol] 10 mmol/L 5-15 [facility] BUN/creatinine ratioOrdered By: Juve Dejesus on 03-10-2025 Urea nitrogen/Creatinine [Mass ratio] 8.7 mg/mg Low 10- [facility] Basic Metabolic Profile (BMP )on 03-10-2025 BUN/CRE 8.7 RATIO Low - [facility] Comment on above: Order Comment: 301.1 Performed By: #### L 501.9985, L500.2500, L501.9520, L100.0500, L500.4100, L501.9310 ####[facility] [address] [place], [address] Calcium [Mass/Vol] 8.6 mg/dL Normal 7.6-11.0 [facility] Comment on above: Order Comment: 301.1 Performed By: #### L 501.9985, L500.2500, L501.9520, L100.0500, L500.4100, L501.9310 ####[facility] [address] [place], [address] Chloride [Moles/Vol] 105 mmol/L Normal 98-108 [facility] Comment on above: Order Comment: 301.1 Performed By: #### L 501.9985, L500.2500, L501.9520, L100.0500, L500.4100, L501.9310 ####[facility] [address] [place], [address] CO2 [Moles/Vol] 26.3 mmol/L Normal 21.0-32.0 [facility] Comment on above: Order Comment: 301.1 Performed By: #### L 501.9985, L500.2500, L501.9520, L100.0500, L500.4100, L501.9310 ####[facility] [address] [place], [address] Creatinine [Mass/Vol] 0.66 mg/dL Low 0.70-1.20 [facility] Comment on above: Order Comment: 301.1 Performed By: #### L 501.9985, L500.2500, L501.9520, L100.0500, L500.4100, L501.9310 ####[facility] [address] [place], [address] GAP 10 Normal 5-15 [facility] Comment on above: Order Comment: 301.1 Performed By: #### L 501.9985, L500.2500, L501.9520, L100.0500, L500.4100, L501.9310 ####[facility] [address] [place], [address] GFR/1.73 sq M.predicted among non-blacks MDRD (S/P/Bld) [Vol rate/Area] 88 mL/min/{1.73_m2} Normal >60 [facility] Comment on above: Order Comment: 301.1 Result Comment: mL/m in/1.73m2 CKD-EPI Creatinine Equation (2020) Performed By: #### L 501.9985, L500.2500, L501.9520, L100.0500, L500.4100, L501.9310 ####[facility] [address] [place], [address] Glucose [Mass/Vol] 148 mg/dL High 70-99 [facility] Comment on above: Order Comment: 301.1 Performed By: #### L 501.9985, L500.2500, L501.9520, L100.0500, L500.4100, L501.9310 ####[facility] [address] [place], [address] Potassium [Moles/Vol] 3.2 mmol/L Low 3.3-5.1 [facility] Comment on above: Order Comment: 301.1 Performed By: #### L 501.9985, L500.2500, L501.9520, L100.0500, L500.4100, L501.9310 ####[facility] [address] [place], [address] Sodium [Moles/Vol] 141 mmol/L Normal 133-145 [facility] Comment on above: Order Comment: 301.1 Performed By: #### L 501.9985, L500.2500, L501.9520, L100.0500, L500.4100, L501.9310 ####[facility] [address] [place], [address] Urea nitrogen [Mass/Vol] 6 mg/dL Normal 4-19 [facility] Comment on above: Order Comment: 301.1 Performed By: #### L 501.9985, L500.2500, L501.9520, L100.0500, L500.4100, L501.9310 ####[facility] [address] [place], [address] BUN Normal 4-19 [facility] Comment on above: Result Comment: Canc elled via OM: Order cancelled - Patient discharged Performed By: #### L 500.2500, L100.0100 ####[facility] [address] [place], [address] BUN/CRE Normal 10-20 [facility] Comment on above: Result Comment: Canc elled via OM: Order cancelled - Patient discharged Performed By: #### L 500.2500, L100.0100 ####[facility] [address] [place], [address] Calcium Normal 7.6-11.0 [facility] Comment on above: Result Comment: Canc elled via OM: Order cancelled - Patient discharged Performed By: #### L 500.2500, L100.0100 ####[facility] [address] [place], [address] CL Normal 98-108 [facility] Comment on above: Result Comment: Canc elled via OM: Order cancelled - Patient discharged Performed By: #### L 500.2500, L100.0100 ####[facility] [address] [place], [address] CO2 Normal 21.0-32.0 [facility] Comment on above: Result Comment: Canc elled via OM: Order cancelled - Patient discharged Performed By: #### L 500.2500, L100.0100 ####[facility] [address] [place], [address] CREAT,SERUM Normal 0.70-1.20 [facility] Comment on above: Result Comment: Canc elled via OM: Order cancelled - Patient discharged Performed By: #### L 500.2500, L100.0100 ####[facility] [address] [place], [address] eGFR Normal >60 [facility] Comment on above: Result Comment: Canc elled via OM: Order cancelled - Patient discharged Performed By: #### L 500.2500, L100.0100 ####[facility] [address] [place], [address] GAP Normal 5-15 [facility] Comment on above: Result Comment: Canc elled via OM: Order cancelled - Patient discharged Performed By: #### L 500.2500, L100.0100 ####[facility] [address] [place], [address] GLU Normal 70-99 [facility] Comment on above: Result Comment: Canc elled via OM: Order cancelled - Patient discharged Performed By: #### L 500.2500, L100.0100 ####[facility] [address] [place], [address] Potassium Normal 3.3-5.1 [facility] Comment on above: Result Comment: Canc elled via OM: Order cancelled - Patient discharged Performed By: #### L 500.2500, L100.0100 ####[facility] [address] [place], [address] Basic Metabolic Profile (BMP) Normal 133-145 [facility] Comment on above: Result Comment: Canc elled via OM: Order cancelled - Patient discharged Performed By: #### L 500.2500, L100.0100 ####[facility] [address] [place], [address] CBC W/Diff, Automatedon 09-1 Absolute Neut Normal 2.0-7.7 [facility] Comment on above: Result Comment: Canc elled via OM: Order cancelled - Patient discharged Performed By: #### L 500.2500, L100.0100 ####[facility] [address] [place], [address] HCT Normal 37-47 [facility] Comment on above: Result Comment: Canc elled via OM: Order cancelled - Patient discharged Performed By: #### L 500.2500, L100.0100 ####[facility] [address] [place], [address] HGB Normal 12.0-15.0 [facility] Comment on above: Result Comment: Canc elled via OM: Order cancelled - Patient discharged Performed By: #### L 500.2500, L100.0100 ####[facility] [address] [place], [address] MCH Normal 27.0-32.0 [facility] Comment on above: Result Comment: Canc elled via OM: Order cancelled - Patient discharged Performed By: #### L 500.2500, L100.0100 ####[facility] [address] [place], [address] MCHC Normal 32-36 [facility] Comment on above: Result Comment: Canc elled via OM: Order cancelled - Patient discharged Performed By: #### L 500.2500, L100.0100 ####[facility] [address] [place], [address] MCV Normal 81-99 [facility] Comment on above: Result Comment: Canc elled via OM: Order cancelled - Patient discharged Performed By: #### L 500.2500, L100.0100 ####[facility] [address] [place], [address] NEUT% Normal 47-70 [facility] Comment on above: Result Comment: Canc elled via OM: Order cancelled - Patient discharged Performed By: #### L 500.2500, L100.0100 ####[facility] [address] [place], [address] PLT Normal 150-450 [facility] Comment on above: Result Comment: Canc elled via OM: Order cancelled - Patient discharged Performed By: #### L 500.2500, L100.0100 ####[facility] [address] [place], [address] RBC Normal 4.2-5.4 [facility] Comment on above: Result Comment: Canc elled via OM: Order cancelled - Patient discharged Performed By: #### L 500.2500, L100.0100 ####[facility] [address] [place], [address] RDW CV Normal 11.6-14.6 [facility] Comment on above: Result Comment: Canc elled via OM: Order cancelled - Patient discharged Performed By: #### L 500.2500, L100.0100 ####[facility] [address] [place], [address] RDW SD Normal 35.1-43.9 [facility] Comment on above: Result Comment: Canc elled via OM: Order cancelled - Patient discharged Performed By: #### L 500.2500, L100.0100 ####[facility] [address] [place], [address] WBC Normal 4.4-11.0 [facility] Comment on above: Result Comment: Canc elled via OM: Order cancelled - Patient discharged Performed By: #### L 500.2500, L100.0100 ####[facility] [address] [place], [address] CBC-Complete Blood Cnt No Di ffon 03-10-2025 Erythrocyte distribution width (RBC) [Ratio] 14.2 % Normal 11.6-14.6 [facility] Comment on above: Order Comment: 301.1 Performed By: #### L 501.9985, L500.2500, L501.9520, L100.0500, L500.4100, L501.9310 ####[facility] [address] [place], [address] Hematocrit (Bld) [Volume fraction] 27.9 % Low 37-47 [facility] Comment on above: Order Comment: 301.1 Performed By: #### L 501.9985, L500.2500, L501.9520, L100.0500, L500.4100, L501.9310 ####[facility] [address] [place], [address] Hemoglobin (Bld) [Mass/Vol] 8.8 g/dL Low 12.0-15.0 [facility] Comment on above: Order Comment: 301.1 Performed By: #### L 501.9985, L500.2500, L501.9520, L100.0500, L500.4100, L501.9310 ####[facility] [address] [place], [address] MCH (RBC) [Entitic mass] 30.8 pg Normal 27.0-32.0 [facility] Comment on above: Order Comment: 301.1 Performed By: #### L 501.9985, L500.2500, L501.9520, L100.0500, L500.4100, L501.9310 ####[facility] [address] [place], [address] MCHC (RBC) [Mass/Vol] 31.5 g/dL Low 32-36 [facility] Comment on above: Order Comment: 301.1 Performed By: #### L 501.9985, L500.2500, L501.9520, L100.0500, L500.4100, L501.9310 ####[facility] [address] [place], [address] MCV (RBC) [Entitic vol] 97.6 fL Normal 81-99 [facility] Comment on above: Order Comment: 301.1 Performed By: #### L 501.9985, L500.2500, L501.9520, L100.0500, L500.4100, L501.9310 ####[facility] [address] [place], [address] Platelet mean volume (Bld) [Entitic vol] 10.9 fL Normal 6.2-12.0 [facility] Comment on above: Order Comment: 301.1 Performed By: #### L 501.9985, L500.2500, L501.9520, L100.0500, L500.4100, L501.9310 ####[facility] [address] [place], [address] Platelets (Bld) [#/Vol] 169 10*3/uL Normal 150-450 [facility] Comment on above: Order Comment: 301.1 Performed By: #### L 501.9985, L500.2500, L501.9520, L100.0500, L500.4100, L501.9310 ####[facility] [address] [place], [address] RBC (Bld) [#/Vol] 2.86 10*6/uL Low 4.2-5.4 [facility] Comment on above: Order Comment: 301.1 Performed By: #### L 501.9985, L500.2500, L501.9520, L100.0500, L500.4100, L501.9310 ####[facility] [address] [place], [address] RDW SD 49.1 fl High 35.1-43.9 [facility] Comment on above: Order Comment: 301.1 Performed By: #### L 501.9985, L500.2500, L501.9520, L100.0500, L500.4100, L501.9310 ####[facility] [address] [place], [address] WBC (Bld) [#/Vol] 4.2 10*3/uL Low 4.4-11.0 [facility] Comment on above: Order Comment: 301.1 Performed By: #### L 501.9985, L500.2500, L501.9520, L100.0500, L500.4100, L501.9310 ####[facility] [address] [place], [address] Calculated very low density lipoprotein (VLDL) cholesterol measurementOrdered By: Juve Dejesus on 03-10-2025 Calculated very low density lipoprotein (VLDL) cholesterol measurement 26 mg/dL 5-40 [facility] Carbon dioxide, total [Moles /volume] in Central venous bloodOrdered By: Juve Dejesus on 03-10-2025 CO2 [Moles/Vol] 26.3 mmol/L 21.0-32.0 [facility] Chloride assayOrdered By: Baljit Dejesus on 09-11-2025 Chloride [Moles/Vol] 105 mmol/L 98-108 [facility] Erythrocyte distribution wid th ratioOrdered By: Juve Dejesus on 03-10-2025 Erythrocyte distribution width (RBC) [Ratio] 14.2 % 11.6-14.6 [facility] Erythrocyte distribution wid th standard deviationOrdered By: Juve Dejesus on 03-10-2025 Erythrocyte distribution width (RBC) [Ratio] 49.1 fl High 35.1-43.9 [facility] Glomerular filtration rate ( GFR) estimation/1.73 sq m using serum, plasma, or whole bOrdered By: Juve Dejesus on 03-10-2025 GFR/1.73 sq M.predicted among non-blacks MDRD (S/P/Bld) [Vol rate/Area] 88 mL/min/{1.73_m2} >60 [facility] Comment on above: mL/min/1.73m2 CKD-EP I Creatinine Equation (2020) Hematocrit Auto (Bld) [Volum e fraction]Ordered By: Juve Dejesus on 03-10-2025 Hematocrit (Bld) [Volume fraction] 27.9 % Low 37-47 [facility] Hemoglobin A1con 03-10-2025 HbA1c (Bld) [Mass fraction] 7.5 % High <=5.6 [facility] Comment on above: Order Comment: 301.1 Result Comment: Norm al < 5.7 % Prediabetic 5.7 - 6.4 % Diabetic >or= 6.5 % Please note range changes. Performed By: #### L 501.9985, L500.2500, L501.9520, L100.0500, L500.4100, L501.9310 ####[facility] [address] [place], [place], [id number] Hemoglobin A1c percentageOrd ered By: Juve Dejesus on 03-10-2025 HbA1c (Bld) [Mass fraction] 7.5 % High <5.7 [facility] Comment on above: Normal < 5.7 % Predi abetic 5.7 - 6.4 % Diabetic >or= 6.5 % Please note range changes. Hemoglobin measurementOrdere d By: Juve Dejesus on 03-10-2025 Hemoglobin (Bld) [Mass/Vol] 8.8 g/dL Low 12.0-15.0 [facility] LDL calc ser/plasOrdered By: Juve Dejesus on 03-10-2025 Cholesterol in LDL [Mass/Vol] 34 mg/dL [facility] Comment on above: Ubdvmbysth=810-866 m g/dL & Higher Aiqy=285 mg/dL or greaterFriedwald Equation for LDL-C Lipid Profileon 03-10-2025 CHOL:HDL 4.57 Normal [facility] Comment on above: Order Comment: 301.1 Performed By: #### L 501.9985, L500.2500, L501.9520, L100.0500, L500.4100, L501.9310 ####[facility] [address] [place], [address] Cholesterol [Mass/Vol] 77 mg/dL Normal <=200 [facility] Comment on above: Order Comment: 301.1 Result Comment: Chol esterol level, Desirable <200 mg/dLBorderline high cholesterol 200-239 mg/dLHigh cholesterol >=240 mg/dLRecommendations of the NCEP Adult Treatment Panel for thefollowing risk-cutoff thresholds for the [place] Americanpopulation. Performed By: #### L 501.9985, L500.2500, L501.9520, L100.0500, L500.4100, L501.9310 ####[facility] [address] [place], [address] Cholesterol in HDL [Mass/Vol] 17 mg/dL Low [facility] Comment on above: Order Comment: 301.1 Result Comment: Zhane onal Cholesterol Education Program (NCEP) guidelines:<40 mg/dL: Low HDL-cholesterol (major risk factor for CHD)>= 60 mg/dL: High HDL-cholesterol (negative risk factor forCHD)HDL-cholesterol is affected by a number of factors, e.g.smoking, exercise, hormones, sex and age. Performed By: #### L 501.9985, L500.2500, L501.9520, L100.0500, L500.4100, L501.9310 ####[facility] [address] [place], [address] Cholesterol in LDL [Mass/Vol] 34 mg/dL Normal [facility] Comment on above: Order Comment: 301.1 Result Comment: Bord ypgdez=763-499 mg/dL Higher Cpxh=277 mg/dL or greaterFriedwald Equation for LDL-C Performed By: #### L 501.9985, L500.2500, L501.9520, L100.0500, L500.4100, L501.9310 ####[facility] [address] [place], [address] Cholesterol in VLDL [Mass/Vol] 26 mg/dL Normal 5-40 [facility] Comment on above: Order Comment: 301.1 Performed By: #### L 501.9985, L500.2500, L501.9520, L100.0500, L500.4100, L501.9310 ####[facility] [address] [place], [address] Triglyceride [Mass/Vol] 129 mg/dL Normal [facility] Comment on above: Order Comment: 301.1 Result Comment: The drugs N-Acetylcysteine and Metamizole may falselydepress this assay.Normal range: <150 mg/dLBorderline High: 150-199 mg/dLHigh: 200-499 mg/dLVery High: >500 mg/dL Performed By: #### L 501.9985, L500.2500, L501.9520, L100.0500, L500.4100, L501.9310 ####[facility] [address] [place], [address] MCV (mean corpuscular volume ) determinationOrdered By: Juve Dejesus on 03-10-2025 MCV (RBC) [Entitic vol] 97.6 fL 81-99 [facility] Mean corpuscular hemoglobin (MCH) determinationOrdered By: Juve Dejesus on 03-10-2025 MCH (RBC) [Entitic mass] 30.8 pg 27.0-32.0 [facility] Mean corpuscular hemoglobin concentration (MCHC) determinationOrdered By: Juve Dejesus on 03-10-2025 MCHC (RBC) [Mass/Vol] 31.5 g/dL Low 32-36 [facility] Mean platelet volume determi nationOrdered By: Juve Dejesus on 03-10-2025 Platelet mean volume (Bld) [Entitic vol] 10.9 fL 6.2-12.0 [facility] Platelet countOrdered By: Baljit Dejesus on 03-10-2025 Platelets (Bld) [#/Vol] 169 10*3/uL 150-450 [facility] Potassium measurement (mass/ volume)Ordered By: Juve Dejesus on 03-10-2025 Potassium (Unsp spec) [Mass/Vol] 3.2 mmol/L Low 3.3-5.1 [facility] RBC Auto (Bld) [#/Vol]Ordere d By: Juve Dejesus on 03-10-2025 RBC (Bld) [#/Vol] 2.86 10*6/uL Low 4.2-5.4 [facility] Screening total cholesterol/ high density lipoprotein (HDL) cholesterol ratioOrdered By: Juve Dejesus on 03-10-2025 Cholesterol.total/Choles terol in HDL [Mass ratio] 4.57 {ratio} [facility] Serum creatinine measurement (mass/volume)Ordered By: Juve Dejesus on 03-10-2025 Creatinine [Mass/Vol] 0.66 mg/dL Low 0.70-1.20 [facility] Serum glucose measurement (m ass/volume)Ordered By: Juve Dejesus on 03-10-2025 Glucose [Mass/Vol] 148 mg/dL High 70-99 [facility] Serum or plasma calcium sonu urement (mass/volume)Ordered By: Juve Dejesus on 03-10-2025 Calcium [Mass/Vol] 8.6 mg/dL 7.6-11.0 [facility] Serum or plasma cholesterol in HDL measurement (mass/volume)Ordered By: Juve Dejesus on 03-10-2025 Cholesterol in HDL [Mass/Vol] 17 mg/dL Low >40 [facility] Comment on above: National Cholesterol Education Program (NCEP) guidelines:<40 mg/dL: Low HDL-cholesterol (major risk factor for CHD)>= 60 mg/dL: High HDL-cholesterol (negative risk factor for CHD)HDL-cholesterol is affected by a number of factors, e.g. smoking, exercise, hormones, sex and age. Serum or plasma cholesterol measurement (mass/volume)Ordered By: Juve Dejesus on 03-10-2025 Cholesterol [Mass/Vol] 77 mg/dL <201 [facility] Comment on above: Cholesterol level, D esirable <200 mg/dLBorderline high cholesterol 200-239 mg/dLHigh cholesterol >=240 mg/dLRecommendations of the NCEP Adult Treatment Panel for the following risk-cutoff thresholds for the [place] population. Serum or plasma urea nitroge n measurement (mass/volume)Ordered By: Juve Dejesus on 03-10-2025 Urea nitrogen [Mass/Vol] 6 mg/dL 4-19 [facility] Sodium levelOrdered By: Samy Dejesus on 03-10-2025 Sodium [Moles/Vol] 141 mmol/L 133-145 [facility] T4 Total, Thyroxinon 025 T4 [Mass/Vol] 9.1 ug/dL Normal 4.8-13.9 [facility] Comment on above: Order Comment: 301.1 Performed By: #### L 501.9985, L500.2500, L501.9520, L100.0500, L500.4100, L501.9310 ####[facility] [address] [place], [place], [address] TSH DL <= 0.005 mIU/L QnOrde red By: Juve Dejesus on 03-10-2025 TSH Qn 2.740 uIU/mL 0.300-4.200 [facility] Thyroid Stim Hormone (TSH)on 03-10-2025 TSH 2.740 uIU/mL Normal 0.300-4.200 [facility] Comment on above: Order Comment: 301.1 Performed By: #### L 501.9985, L500.2500, L501.9520, L100.0500, L500.4100, L501.9310 ####[facility] [address] [place], [address] ThyroxineOrdered By: Juve gordon on 03-10-2025 T4 [Mass/Vol] 9.1 ug/dL 4.8-13.9 [facility] Triglycerides measurementOrd ered By: Juve Dejesus on 03-10-2025 Triglyceride [Mass/Vol] 129 mg/dL <199 [facility] Comment on above: The drugs N-Acetylcy steine and Metamizole may falsely depress this assay. Normal range: <150 mg/dLBorderline High: 150-199 mg/dLHigh: 200-499 mg/dLVery High: >500 mg/dL White blood cell (WBC) count Ordered By: Juve Dejesus on 03-10-2025 WBC (Bld) [#/Vol] 4.2 10*3/uL Low 4.4-11.0 [facility] Basic Metabolic Profile (BMP )on 03-09-2025 BUN Normal 4-19 [facility] Comment on above: Result Comment: Canc elled via OM: Order cancelled - Patient discharged Performed By: #### L 500.2500, L100.0100 ####[facility] [address] [place], [address] BUN/CRE Normal 10-20 [facility] Comment on above: Result Comment: Canc elled via OM: Order cancelled - Patient discharged Performed By: #### L 500.2500, L100.0100 ####[facility] [address] [place], [address] Calcium Normal 7.6-11.0 [facility] Comment on above: Result Comment: Canc elled via OM: Order cancelled - Patient discharged Performed By: #### L 500.2500, L100.0100 ####[facility] [address] [place], [address] CL Normal 98-108 [facility] Comment on above: Result Comment: Canc elled via OM: Order cancelled - Patient discharged Performed By: #### L 500.2500, L100.0100 ####[facility] [address] [place], [address] CO2 Normal 21.0-32.0 [facility] Comment on above: Result Comment: Canc elled via OM: Order cancelled - Patient discharged Performed By: #### L 500.2500, L100.0100 ####[facility] [address] [place], [address] CREAT,SERUM Normal 0.70-1.20 [facility] Comment on above: Result Comment: Canc elled via OM: Order cancelled - Patient discharged Performed By: #### L 500.2500, L100.0100 ####[facility] [address] [place], [address] eGFR Normal >60 [facility] Comment on above: Result Comment: Canc elled via OM: Order cancelled - Patient discharged Performed By: #### L 500.2500, L100.0100 ####[facility] [address] [place], [address] GAP Normal 5-15 [facility] Comment on above: Result Comment: Canc elled via OM: Order cancelled - Patient discharged Performed By: #### L 500.2500, L100.0100 ####[facility] [address] [place], [address] GLU Normal 70-99 [facility] Comment on above: Result Comment: Canc elled via OM: Order cancelled - Patient discharged Performed By: #### L 500.2500, L100.0100 ####[facility] [address] [place], [address] Potassium Normal 3.3-5.1 [facility] Comment on above: Result Comment: Canc elled via OM: Order cancelled - Patient discharged Performed By: #### L 500.2500, L100.0100 ####[facility] [address] [place], [address] Basic Metabolic Profile (BMP) Normal 133-145 [facility] Comment on above: Result Comment: Canc elled via OM: Order cancelled - Patient discharged Performed By: #### L 500.2500, L100.0100 ####[facility] [address] [place], [address] CBC W/Diff, Automatedon 09-1 0-2024 Absolute Neut Normal 2.0-7.7 [facility] Comment on above: Result Comment: Canc elled via OM: Order cancelled - Patient discharged Performed By: #### L 500.2500, L100.0100 ####[facility] [address] [place], [address] HCT Normal 37-47 [facility] Comment on above: Result Comment: Canc elled via OM: Order cancelled - Patient discharged Performed By: #### L 500.2500, L100.0100 ####[facility] [address] [place], [address] HGB Normal 12.0-15.0 [facility] Comment on above: Result Comment: Canc elled via OM: Order cancelled - Patient discharged Performed By: #### L 500.2500, L100.0100 ####[facility] [address] [place], [address] MCH Normal 27.0-32.0 [facility] Comment on above: Result Comment: Canc elled via OM: Order cancelled - Patient discharged Performed By: #### L 500.2500, L100.0100 ####[facility] [address] [place], [address] MCHC Normal 32-36 [facility] Comment on above: Result Comment: Canc elled via OM: Order cancelled - Patient discharged Performed By: #### L 500.2500, L100.0100 ####[facility] [address] [place], [address] MCV Normal 81-99 [facility] Comment on above: Result Comment: Canc elled via OM: Order cancelled - Patient discharged Performed By: #### L 500.2500, L100.0100 ####[facility] [address] [place], [address] NEUT% Normal 47-70 [facility] Comment on above: Result Comment: Canc elled via OM: Order cancelled - Patient discharged Performed By: #### L 500.2500, L100.0100 ####[facility] [address] [place], [address] PLT Normal 150-450 [facility] Comment on above: Result Comment: Canc elled via OM: Order cancelled - Patient discharged Performed By: #### L 500.2500, L100.0100 ####[facility] [address] [place], [address] RBC Normal 4.2-5.4 [facility] Comment on above: Result Comment: Canc elled via OM: Order cancelled - Patient discharged Performed By: #### L 500.2500, L100.0100 ####[facility] [address] [place], [address] RDW CV Normal 11.6-14.6 [facility] Comment on above: Result Comment: Canc elled via OM: Order cancelled - Patient discharged Performed By: #### L 500.2500, L100.0100 ####[facility] [address] [place], [address] RDW SD Normal 35.1-43.9 [facility] Comment on above: Result Comment: Canc elled via OM: Order cancelled - Patient discharged Performed By: #### L 500.2500, L100.0100 ####[facility] [address] [place], [address] WBC Normal 4.4-11.0 [facility] Comment on above: Result Comment: Canc elled via OM: Order cancelled - Patient discharged Performed By: #### L 500.2500, L100.0100 ####[facility] [address] [place], [address] Absolute lymphocyte countOrd ered By: Linda Marte on 03-08-2025 Lymphocytes Auto (Unsp spec) [#/Vol] 0.93 10*3/uL 0.83-4.51 [facility] Absolute neutrophil countOrd ered By: Linda Marte on 03-08-2025 Neutrophils (Bld) [#/Vol] 3.4 10*3/uL 2.0-7.7 [facility] Anion gap in Serum or Plasma Ordered By: Linda Marte on 03-08-2025 Anion gap [Moles/Vol] 10 mmol/L 5-15 [facility] Automated lymphocyte count a s percentage of total leukocytesOrdered By: Linda Marte on 03-08-2025 Lymphocytes/100 WBC Auto (Unsp spec) 19.7 % 19-41 [facility] BUN/creatinine ratioOrdered By: Linda Marte on 03-08-2025 Urea nitrogen/Creatinine [Mass ratio] 10.3 mg/mg 10- [facility] Basic Metabolic Profile (BMP )on 03-08-2025 BUN/CRE 10.3 RATIO Normal -20 [facility] Comment on above: Performed By: #### L 100.0100, L500.2500 ####[facility] [address] [place], [address] Calcium [Mass/Vol] 8.4 mg/dL Normal 7.6-11.0 [facility] Comment on above: Performed By: #### L 100.0100, L500.2500 ####[facility] [address] [place], [address] Chloride [Moles/Vol] 106 mmol/L Normal 98-108 [facility] Comment on above: Performed By: #### L 100.0100, L500.2500 ####[facility] [address] [place], [address] CO2 [Moles/Vol] 24.0 mmol/L Normal 21.0-32.0 [facility] Comment on above: Performed By: #### L 100.0100, L500.2500 ####[facility] [address] [place], [address] Creatinine [Mass/Vol] 0.60 mg/dL Low 0.70-1.20 [facility] Comment on above: Performed By: #### L 100.0100, L500.2500 ####[facility] [address] [place], [address] ECRCL 53.34 ml/min Normal 50-250 [facility] Comment on above: Performed By: #### L 100.0100, L500.2500 ####[facility] [address] [place], [address] GAP 10 Normal 5-15 [facility] Comment on above: Performed By: #### L 100.0100, L500.2500 ####[facility] [address] [place], [address] GFR/1.73 sq M.predicted among non-blacks MDRD (S/P/Bld) [Vol rate/Area] 90 mL/min/{1.73_m2} Normal >60 [facility] Comment on above: Result Comment: mL/m in/1.73m2 CKD-EPI Creatinine Equation (2020) Performed By: #### L 100.0100, L500.2500 ####[facility] [address] [place], [address] Glucose [Mass/Vol] 172 mg/dL High 70-99 [facility] Comment on above: Performed By: #### L 100.0100, L500.2500 ####[facility] [address] [place], [address] Potassium [Moles/Vol] 3.2 mmol/L Low 3.3-5.1 [facility] Comment on above: Performed By: #### L 100.0100, L500.2500 ####[facility] [address] [place], [address] Sodium [Moles/Vol] 140 mmol/L Normal 133-145 [facility] Comment on above: Performed By: #### L 100.0100, L500.2500 ####[facility] [address] [place], [address] Urea nitrogen [Mass/Vol] 6 mg/dL Normal 4-19 [facility] Comment on above: Performed By: #### L 100.0100, L500.2500 ####[facility] [address] [place], [address] Basophil percentageOrdered B y: Linda Marte on 03-08-2025 Basophils/100 WBC (Bld) 0.4 % 0-1 [facility] Bedside Glucoseon 03-08-2025 FINGERSTICK GLU 170 mg/dL High 74-106 [facility] Comment on above: Result Comment: DANIEL RAWLS OF PATIENT CARE PER NURSING PROTOCOL Performed By: #### L 501.080 ####[facility] [address] [place], [address] CBC W/Diff, Automatedon Absolute Lymph 0.93 X10 3/uL Normal 0.83-4.51 [facility] Comment on above: Performed By: #### L 100.0100, L500.2500 ####[facility] [address] [place], [address] Absolute Neut 3.4 X10 3/uL Normal 2.0-7.7 [facility] Comment on above: Performed By: #### L 100.0100, L500.2500 ####[facility] [address] [place], [address] Basophils/100 WBC (Bld) 0.4 % Normal 0-1 [facility] Comment on above: Performed By: #### L 100.0100, L500.2500 ####[facility] [address] [place], [address] Eosinophils/100 WBC (Bld) 1.3 % Normal 0-5 [facility] Comment on above: Performed By: #### L 100.0100, L500.2500 ####[facility] [address] [place], [address] Erythrocyte distribution width (RBC) [Ratio] 13.7 % Normal 11.6-14.6 [facility] Comment on above: Performed By: #### L 100.0100, L500.2500 ####[facility] [address] [place], [address] Hematocrit (Bld) [Volume fraction] 26.8 % Low 37-47 [facility] Comment on above: Performed By: #### L 100.0100, L500.2500 ####[facility] [address] [place], [address] Hemoglobin (Bld) [Mass/Vol] 8.6 g/dL Low 12.0-15.0 [facility] Comment on above: Performed By: #### L 100.0100, L500.2500 ####[facility] [address] [place], [address] IG% 1.900 High 0.0-0.9 [facility] Comment on above: Result Comment: IG% - Immature Granulocytes (promyelocytes, myelocytes andmetamyelocytes) > 1% indicates that a LEFT SHIFT is Present. Performed By: #### L 100.0100, L500.2500 ####[facility] [address] [place], [address] Lymphocytes/100 WBC (Bld) 19.7 % Normal 19-41 [facility] Comment on above: Performed By: #### L 100.0100, L500.2500 ####[facility] [address] [place], [address] MCH (RBC) [Entitic mass] 30.7 pg Normal 27.0-32.0 [facility] Comment on above: Performed By: #### L 100.0100, L500.2500 ####[facility] [address] [place], [address] MCHC (RBC) [Mass/Vol] 32.1 g/dL Normal 32-36 [facility] Comment on above: Performed By: #### L 100.0100, L500.2500 ####[facility] [address] [place], [address] MCV (RBC) [Entitic vol] 95.7 fL Normal 81-99 [facility] Comment on above: Performed By: #### L 100.0100, L500.2500 ####[facility] [address] [place], [address] Monocytes/100 WBC (Bld) 5.7 % Normal 0-10 [facility] Comment on above: Performed By: #### L 100.0100, L500.2500 ####[facility] [address] [place], [address] Neutrophils/100 WBC (Bld) 71.0 % High 47-70 [facility] Comment on above: Performed By: #### L 100.0100, L500.2500 ####[facility] [address] [place], [address] Nucleated RBC (Bld) [#/Vol] 0 10*3/uL Normal 0-5 [facility] Comment on above: Performed By: #### L 100.0100, L500.2500 ####[facility] [address] [place], [address] Platelet mean volume (Bld) [Entitic vol] 10.4 fL Normal 6.2-12.0 [facility] Comment on above: Performed By: #### L 100.0100, L500.2500 ####[facility] [address] [place], [address] Platelets (Bld) [#/Vol] 149 10*3/uL Low 150-450 [facility] Comment on above: Performed By: #### L 100.0100, L500.2500 ####[facility] [address] [place], [address] RBC (Bld) [#/Vol] 2.80 10*6/uL Low 4.2-5.4 [facility] Comment on above: Performed By: #### L 100.0100, L500.2500 ####[facility] [address] [place], [address] RDW SD 48.3 fl High 35.1-43.9 [facility] Comment on above: Performed By: #### L 100.0100, L500.2500 ####[facility] [address] [place], [address] WBC (Bld) [#/Vol] 4.7 10*3/uL Normal 4.4-11.0 [facility] Comment on above: Performed By: #### L 100.0100, L500.2500 ####[facility] [address] [place], [address] Carbon dioxide, total [Moles /volume] in Central venous bloodOrdered By: Linda Marte on 03-08-2025 CO2 [Moles/Vol] 24.0 mmol/L 21.0-32.0 [facility] Chloride assayOrdered By: Tiffani Marte on 03-08-2025 Chloride [Moles/Vol] 106 mmol/L 98-108 [facility] Eosinophil percentageOrdered By: Linda Marte on 03-08-2025 Eosinophils/100 WBC (Bld) 1.3 % 0-5 [facility] Erythrocyte distribution wid th ratioOrdered By: Lindakobi Marte on 03-08-2025 Erythrocyte distribution width (RBC) [Ratio] 13.7 % 11.6-14.6 [facility] Erythrocyte distribution wid th standard deviationOrdered By: Linda Marte on 03-08-2025 Erythrocyte distribution width (RBC) [Ratio] 48.3 fl High 35.1-43.9 [facility] Glomerular filtration rate ( GFR) estimation/1.73 sq m using serum, plasma, or whole bOrdered By: Linda Marte on 03-08-2025 GFR/1.73 sq M.predicted among non-blacks MDRD (S/P/Bld) [Vol rate/Area] 90 mL/min/{1.73_m2} >60 [facility] Comment on above: mL/min/1.73m2 CKD-EP I Creatinine Equation (2020) [facility] deOrdered By: Carl Couch on 03-08-2025 Glucose [Mass/Vol] 170 mg/dL High 74-106 [facility] Comment on above: MANAGEMENT OF PATIEN T CARE PER NURSING PROTOCOL Hematocrit Auto (Bld) [Volum e fraction]Ordered By: Lindakobi Marte on 03-08-2025 Hematocrit (Bld) [Volume fraction] 26.8 % Low 37-47 [facility] Hemoglobin measurementOrdere d By: Linda Marte on 03-08-2025 Hemoglobin (Bld) [Mass/Vol] 8.6 g/dL Low 12.0-15.0 [facility] Immature granulocytes/100 WB C Auto (Bld)Ordered By: Linda Marte on 03-08-2025 Immature granulocytes/100 WBC (Bld) 1.900 % High 0.0-0.9 [facility] Comment on above: IG% - Immature Granu locytes (promyelocytes, myelocytes and metamyelocytes) > 1% indicates that a LEFT SHIFT is Present. MCV (mean corpuscular volume ) determinationOrdered By: Linda Marte on 03-08-2025 MCV (RBC) [Entitic vol] 95.7 fL 81-99 [facility] Mean corpuscular hemoglobin (MCH) determinationOrdered By: Linda Marte 03-08-2025 MCH (RBC) [Entitic mass] 30.7 pg 27.0-32.0 [facility] Mean corpuscular hemoglobin concentration (MCHC) determinationOrdered By: Linda Marte on 03-08-2025 MCHC (RBC) [Mass/Vol] 32.1 g/dL 32-36 [facility] Mean platelet volume determi nationOrdered By: Linda Marte on 03-08-2025 Platelet mean volume (Bld) [Entitic vol] 10.4 fL 6.2-12.0 [facility] Monocyte percentageOrdered B y: Linda Marte on 03-08-2025 Monocytes/100 WBC (Bld) 5.7 % 0-10 [facility] Neutrophil percentageOrdered By: Linda Marte on 03-08-2025 Neutrophils/100 WBC (Bld) 71.0 % High 47-70 [facility] Nucleated red blood cell per centageOrdered By: Linda Marte on 03-08-2025 Nucleated RBC/100 WBC (Bld) [Ratio] 0 % 0-5 [facility] Platelet countOrdered By: Tiffani Marte on 03-08-2025 Platelets (Bld) [#/Vol] 149 10*3/uL Low 150-450 [facility] Potassium measurement (mass/ volume)Ordered By: Linda Marte on 03-08-2025 Potassium (Unsp spec) [Mass/Vol] 3.2 mmol/L Low 3.3-5.1 [facility] RBC Auto (Bld) [#/Vol]Ordere d By: Linda Marte on 03-08-2025 RBC (Bld) [#/Vol] 2.80 10*6/uL Low 4.2-5.4 [facility] Serum creatinine measurement (mass/volume)Ordered By: Linda Marte on 03-08-2025 Creatinine [Mass/Vol] 0.60 mg/dL Low 0.70-1.20 [facility] Serum glucose measurement (m ass/volume)Ordered By: Linda Marte on 03-08-2025 Glucose [Mass/Vol] 172 mg/dL High 70-99 [facility] Serum or plasma calcium sonu urement (mass/volume)Ordered By: Linda Marte on 03-08-2025 Calcium [Mass/Vol] 8.4 mg/dL 7.6-11.0 [facility] Serum or plasma urea nitroge n measurement (mass/volume)Ordered By: Lindakobi Marte on 03-08-2025 Urea nitrogen [Mass/Vol] 6 mg/dL 4-19 [facility] Sodium levelOrdered By: Lindakobi Marte on 03-08-2025 Sodium [Moles/Vol] 140 mmol/L 133-145 [facility] Trough vancomycin levelOrder ed By: Lindakobi Marte on 03-08-2025 Vancomycin trough [Mass/Vol] 13.0 ug/mL 5.0-15.0 [facility] Comment on above: Recommended goal tro ugh [...] therapy recommended for serious lifethreatening infections include:- Geuamlictf-Blvgzpnskebm-Wmyfcqltn (Ventilator/Healtcare Associated)-Sepsis PLEASE CONTACT PHARMACY SERVICES (#[id number]) FOR INTERPRETATIONOF RESULTS. Vancomycin, Trough Levelon 0 03-08-2025 VANCO, TROUGH 13.0 ug/mL Normal 5.0-15.0 [facility] Comment on above: Order Comment: Comme nts: Trough to be drawn 30 mins prior to scheduled [id number] Result Comment: Jerzy mmended goal trough ranges [...] therapy recommended for serious lifethreatening infections include:- Secijvpudf-Wccvqafkvlqm-Veiqukmdl (Ventilator/Healtcare Associated)-SepsisPLEASE CONTACT PHARMACY SERVICES (#[id number]) FOR INTERPRETATIONOF RESULTS. Performed By: #### L 501.8820 ####[facility] [address] [place], [address] White blood cell (WBC) count Ordered By: Linda Marte on 03-08-2025 WBC (Bld) [#/Vol] 4.7 10*3/uL 4.4-11.0 [facility] Basic Metabolic Profile (BMP )on 03-07-2025 BUN/CRE 16.6 RATIO Normal 10-20 [facility] Comment on above: Performed By: #### L 100.0100, L500.2500 ####[facility] [address] [place], [address] Calcium [Mass/Vol] 8.5 mg/dL Normal 7.6-11.0 [facility] Comment on above: Performed By: #### L 100.0100, L500.2500 ####[facility] [address] [place], [address] Chloride [Moles/Vol] 108 mmol/L Normal 98-108 [facility] Comment on above: Performed By: #### L 100.0100, L500.2500 ####[facility] [address] [place], [address] CO2 [Moles/Vol] 22.5 mmol/L Normal 21.0-32.0 [facility] Comment on above: Performed By: #### L 100.0100, L500.2500 ####[facility] [address] [place], [address] Creatinine [Mass/Vol] 0.65 mg/dL Low 0.70-1.20 [facility] Comment on above: Performed By: #### L 100.0100, L500.2500 ####[facility] [address] [place], [address] ECRCL 53.82 ml/min Normal 50-250 [facility] Comment on above: Performed By: #### L 100.0100, L500.2500 ####[facility] [address] [place], [address] GAP 9 Normal 5-15 [facility] Comment on above: Performed By: #### L 100.0100, L500.2500 ####[facility] [address] [place], [address] GFR/1.73 sq M.predicted among non-blacks MDRD (S/P/Bld) [Vol rate/Area] 88 mL/min/{1.73_m2} Normal >60 [facility] Comment on above: Result Comment: mL/m in/1.73m2 CKD-EPI Creatinine Equation (2020) Performed By: #### L 100.0100, L500.2500 ####[facility] [address] [place], [address] Glucose [Mass/Vol] 179 mg/dL High 70-99 [facility] Comment on above: Performed By: #### L 100.0100, L500.2500 ####[facility] [address] [place], [address] Potassium [Moles/Vol] 3.7 mmol/L Normal 3.3-5.1 [facility] Comment on above: Performed By: #### L 100.0100, L500.2500 ####[facility] [address] [place], [address] Sodium [Moles/Vol] 139 mmol/L Normal 133-145 [facility] Comment on above: Performed By: #### L 100.0100, L500.2500 ####[facility] [address] [place], [address] Urea nitrogen [Mass/Vol] 11 mg/dL Normal 4-19 [facility] Comment on above: Performed By: #### L 100.0100, L500.2500 ####[facility] [address] [place], [address] Bedside Glucoseon 03-07-2025 FINGERSTICK GLU 166 mg/dL High 74-106 [facility] Comment on above: Result Comment: DANIEL GEMENT OF PATIENT CARE PER NURSING PROTOCOL Performed By: #### L 501.080 ####[facility] [address] [place], [address] FINGERSTICK GLU 204 mg/dL High 74-106 [facility] Comment on above: Result Comment: DANIEL GEMENT OF PATIENT CARE PER NURSING PROTOCOL Performed By: #### L 501.080 ####[facility] [address] [place], [address] FINGERSTICK GLU 167 mg/dL High -106 [facility] Comment on above: Result Comment: DANIEL GEMENT OF PATIENT CARE PER NURSING PROTOCOL Performed By: #### L 501.080 ####[facility] [address] [place], [address] FINGERSTICK GLU 165 mg/dL High -106 [facility] Comment on above: Result Comment: DANIEL GEMENT OF PATIENT CARE PER NURSING PROTOCOL Performed By: #### L 501.080 ####[facility] [address] [place], [address] CBC W/Diff, Automatedon PLT EST ADEQUATE Normal ADEQ [facility] Comment on above: Performed By: #### L 100.0100, L500.2500 ####[facility] [address] [place], [address] PLT MORPH CLUMPED Normal [facility] Comment on above: Performed By: #### L 100.0100, L500.2500 ####[facility] [address] [place], [address] Consultation - Infectious Dx on 03-07-2025 Consultation - Infectious Dx Normal [facility] Electrocardiogram reportOrde red By: Sinan Gaviria on 03-07-2025 EKG study [facility] [address] [place] [address] 12 Lead EKG 03/03/25 1412 MR#: [id number] Acct: [id number] Name: STEVE VIEIRA Rep #:[id number] : 1945 79 From: Sinan bustos MD Attending Dr: Dr. Carl Couch DO Status: ADM IN Ordering Dr: Frieda Laurent MD Date: 10/22 Location: [facility] Sex: F C Admitted: 03/03/25 Test [...] Abnormal ECG Confirmed by DIANA DEJESUS, MUNA ([id number]), supervising editor news reel ORION MARTINS ([id number]) on 03/07/2025 9:05:15 AM Referred By: KELLY Confirmed By: MUNA GAVIRIA MD 03/07/25 09 Date _ Sinan Gaviria MD CC: Dr. Carl Couch DO; Dr. Frieda Laurent MD; Dr. Peter Ellis MD ~ Signed [facility] Other Phone: Platelet estimateOrdered By: Linda Marte on 03-07-2025 Platelets LM Ql (Bld) ADEQUATE ADEQ [facility] Platelet morphologyOrdered B y: Linda Marte on 03-07-2025 Platelet morphology finding Nom (Bld) CLUMPED [facility] Basic Metabolic Profile (BMP )on 03-06-2025 BUN/CRE 21.1 RATIO High 10-20 [facility] Comment on above: Performed By: #### L 100.0100, L500.2500 ####[facility] [address] [place], [address] Calcium [Mass/Vol] 8.4 mg/dL Normal 7.6-11.0 [facility] Comment on above: Performed By: #### L 100.0100, L500.2500 ####[facility] [address] [place], [address] Chloride [Moles/Vol] 109 mmol/L High 98-108 [facility] Comment on above: Performed By: #### L 100.0100, L500.2500 ####[facility] [address] [place], [address] CO2 [Moles/Vol] 20.7 mmol/L Low 21.0-32.0 [facility] Comment on above: Performed By: #### L 100.0100, L500.2500 ####[facility] [address] [place], [address] Creatinine [Mass/Vol] 0.68 mg/dL Low 0.70-1.20 [facility] Comment on above: Performed By: #### L 100.0100, L500.2500 ####[facility] [address] [place], [address] ECRCL 53.79 ml/min Normal 50-250 [facility] Comment on above: Performed By: #### L 100.0100, L500.2500 ####[facility] [address] [place], [address] GAP 8 Normal 5-15 [facility] Comment on above: Performed By: #### L 100.0100, L500.2500 ####[facility] [address] [place], [address] GFR/1.73 sq M.predicted among non-blacks MDRD (S/P/Bld) [Vol rate/Area] 87 mL/min/{1.73_m2} Normal >60 [facility] Comment on above: Result Comment: mL/m in/1.73m2 CKD-EPI Creatinine Equation (2020) Performed By: #### L 100.0100, L500.2500 ####[facility] [address] [place], [address] Glucose [Mass/Vol] 180 mg/dL High 70-99 [facility] Comment on above: Performed By: #### L 100.0100, L500.2500 ####[facility] [address] [place], [address] Potassium [Moles/Vol] 3.6 mmol/L Normal 3.3-5.1 [facility] Comment on above: Performed By: #### L 100.0100, L500.2500 ####[facility] [address] [place], [address] Sodium [Moles/Vol] 138 mmol/L Normal 133-145 [facility] Comment on above: Performed By: #### L 100.0100, L500.2500 ####[facility] [address] [place], [address] Urea nitrogen [Mass/Vol] 14 mg/dL Normal 4-19 [facility] Comment on above: Performed By: #### L 100.0100, L500.2500 ####[facility] [address] [place], [address] Bedside Glucoseon 03-06-2025 FINGERSTICK GLU 189 mg/dL High 74-106 [facility] Comment on above: Result Comment: DANIEL RAWLS OF PATIENT CARE PER NURSING PROTOCOL Performed By: #### L 501.080 ####[facility] [address] [place], [address] FINGERSTICK GLU 159 mg/dL High 74-106 [facility] Comment on above: Result Comment: DANIEL GEMENT OF PATIENT CARE PER NURSING PROTOCOL Performed By: #### L 501.080 ####[facility] [address] [place], [address] FINGERSTICK GLU 204 mg/dL High 74-106 [facility] Comment on above: Result Comment: DANIEL GEMENT OF PATIENT CARE PER NURSING PROTOCOL Performed By: #### L 501.080 ####[facility] [address] [place], [address] FINGERSTICK GLU 164 mg/dL High 74-106 [facility] Comment on above: Result Comment: DANIEL GEMENT OF PATIENT CARE PER NURSING PROTOCOL Performed By: #### L 501.080 ####[facility] [address] [place], [address] CBC W/Diff, Automatedon 09-0 7-2025 Absolute Lymph 0.79 X10 3/uL Low 0.83-4.51 [facility] Comment on above: Performed By: #### L 100.0100, L500.2500 ####[facility] [address] [place], [address] Absolute Neut 3.2 X10 3/uL Normal 2.0-7.7 [facility] Comment on above: Performed By: #### L 100.0100, L500.2500 ####[facility] [address] [place], [address] Basophils/100 WBC (Bld) 0.2 % Normal 0-1 [facility] Comment on above: Performed By: #### L 100.0100, L500.2500 ####[facility] [address] [place], [address] Eosinophils/100 WBC (Bld) 1.6 % Normal 0-5 [facility] Comment on above: Performed By: #### L 100.0100, L500.2500 ####[facility] [address] [place], [address] Erythrocyte distribution width (RBC) [Ratio] 14.2 % Normal 11.6-14.6 [facility] Comment on above: Performed By: #### L 100.0100, L500.2500 ####[facility] [address] [place], [address] Hematocrit (Bld) [Volume fraction] 24.4 % Low 37-47 [facility] Comment on above: Performed By: #### L 100.0100, L500.2500 ####[facility] [address] [place], [address] Hemoglobin (Bld) [Mass/Vol] 7.7 g/dL Low 12.0-15.0 [facility] Comment on above: Performed By: #### L 100.0100, L500.2500 ####[facility] [address] [place], [address] IG% 0.700 Normal 0.0-0.9 [facility] Comment on above: Result Comment: IG% - Immature Granulocytes (promyelocytes, myelocytes andmetamyelocytes) > 1% indicates that a LEFT SHIFT is Present. Performed By: #### L 100.0100, L500.2500 ####[facility] [address] [place], [address] Lymphocytes/100 WBC (Bld) 18.2 % Low 19-41 [facility] Comment on above: Performed By: #### L 100.0100, L500.2500 ####[facility] [address] [place], [address] MCH (RBC) [Entitic mass] 31.0 pg Normal 27.0-32.0 [facility] Comment on above: Performed By: #### L 100.0100, L500.2500 ####[facility] [address] [place], [address] MCHC (RBC) [Mass/Vol] 31.6 g/dL Low 32-36 [facility] Comment on above: Performed By: #### L 100.0100, L500.2500 ####[facility] [address] [place], [address] MCV (RBC) [Entitic vol] 98.4 fL Normal 81-99 [facility] Comment on above: Performed By: #### L 100.0100, L500.2500 ####[facility] [address] [place], [address] Monocytes/100 WBC (Bld) 6.2 % Normal 0-10 [facility] Comment on above: Performed By: #### L 100.0100, L500.2500 ####[facility] [address] [place], [address] Neutrophils/100 WBC (Bld) 73.1 % High 47-70 [facility] Comment on above: Performed By: #### L 100.0100, L500.2500 ####[facility] [address] [place], [address] Nucleated RBC (Bld) [#/Vol] 0 10*3/uL Normal 0-5 [facility] Comment on above: Performed By: #### L 100.0100, L500.2500 ####[facility] [address] [place], [address] Platelet mean volume (Bld) [Entitic vol] 10.9 fL Normal 6.2-12.0 [facility] Comment on above: Performed By: #### L 100.0100, L500.2500 ####[facility] [address] [place], [address] Platelets (Bld) [#/Vol] 145 10*3/uL Low 150-450 [facility] Comment on above: Performed By: #### L 100.0100, L500.2500 ####[facility] [address] [place], [address] RBC (Bld) [#/Vol] 2.48 10*6/uL Low 4.2-5.4 [facility] Comment on above: Performed By: #### L 100.0100, L500.2500 ####[facility] [address] [place], [address] RDW SD 51.4 fl High 35.1-43.9 [facility] Comment on above: Performed By: #### L 100.0100, L500.2500 ####[facility] [address] [place], [address] WBC (Bld) [#/Vol] 4.3 10*3/uL Low 4.4-11.0 [facility] Comment on above: Performed By: #### L 100.0100, L500.2500 ####[facility] [address] [place], [address] Culture, Blood (WB)on 2024 CUB Normal [facility] Comment on above: Performed By: #### L 503.6005, M200.1000, L100.0100, L500.4050 ####[facility] [address] [place], [address] Ferritinon 03-06-2025 Ferritin [Mass/Vol] 310 ng/mL Normal 22-378 [facility] Comment on above: Performed By: #### L 503.6030, L503.6550 ####[facility] [address] [place], [address] Iron measurement (mass/mass) Ordered By: Linda Marte on 03-06-2025 Iron (Unsp spec) [Mass/Mass] 51 ug/dL 50-170 [facility] Iron+Iron Binding Capacityon 03-06-2025 TIBC 147 ug/dL Low 250-450 [facility] Comment on above: Performed By: #### L 503.6030, L503.6550 ####[facility] [address] [place], [place], [address] No Panel InformationOrdered By: Linda Marte on 03-06-2025 Unsaturated Iron Binding Capacity 95 ug/dL Low 228-428 [facility] Respiratory Cultureon 2024 RESPC Normal [facility] Comment on above: Performed By: #### M 100.2000, M100.2400 ####[facility] [address] [place], [place], [address] Serum or plasma ferritin barbara surement (mass/volume)Ordered By: Linda Marte on 03-06-2025 Ferritin [Mass/Vol] 310 ng/mL 22-378 [facility] Serum or plasma iron saturat ion measurement (mass fraction)Ordered By: Linda Marte on 03-06-2025 Iron saturation [Mass fraction] 35.0 % 13-59 [facility] Comment on above: Previous reported re sult: 35.0 %Edited by: KEVIN on 03/06/25:1124 Urine Cultureon 03-06-2025 URC Normal [facility] Comment on above: Performed By: #### L 400.0001, M100.2200, M100.678 ####[facility] [address] [place], [address] Vancomycin, Trough Levelon 0 03-06-2025 VANCO, TROUGH 11.0 ug/mL Normal 5.0-15.0 [facility] Comment on above: Order Comment: Comme [...] therapy recommended for serious lifethreatening infections include:- Xmltrlwzfe-Ingkijkbvmtp-Dqdpnxxdx (Ventilator/Healtcare Associated)-SepsisPLEASE CONTACT PHARMACY SERVICES (#2366) FOR INTERPRETATIONOF RESULTS. Performed By: #### L 501.8820 ####[facility] [address] [place], [address] Basic Metabolic Profile (BMP )on 03-05-2025 BUN/CRE 20.7 RATIO High 10-20 [facility] Comment on above: Performed By: #### L 100.0100, L500.2500 ####[facility] [address] [place], [address] Calcium [Mass/Vol] 8.0 mg/dL Normal 7.6-11.0 [facility] Comment on above: Performed By: #### L 100.0100, L500.2500 ####[facility] [address] [place], [address] Chloride [Moles/Vol] 110 mmol/L High 98-108 [facility] Comment on above: Performed By: #### L 100.0100, L500.2500 ####[facility] [address] [place], [address] CO2 [Moles/Vol] 20.8 mmol/L Low 21.0-32.0 [facility] Comment on above: Performed By: #### L 100.0100, L500.2500 ####[facility] [address] [place], [address] Creatinine [Mass/Vol] 0.89 mg/dL Normal 0.70-1.20 [facility] Comment on above: Performed By: #### L 100.0100, L500.2500 ####[facility] [address] [place], [address] ECRCL 48.16 ml/min Low 50-250 [facility] Comment on above: Performed By: #### L 100.0100, L500.2500 ####[facility] [address] [place], [address] GAP 9 Normal 5-15 [facility] Comment on above: Performed By: #### L 100.0100, L500.2500 ####[facility] [address] [place], [address] GFR/1.73 sq M.predicted among non-blacks MDRD (S/P/Bld) [Vol rate/Area] 65 mL/min/{1.73_m2} Normal >60 [facility] Comment on above: Result Comment: mL/m in/1.73m2 CKD-EPI Creatinine Equation (2020) Performed By: #### L 100.0100, L500.2500 ####[facility] [address] [place], [address] Glucose [Mass/Vol] 158 mg/dL High 70-99 [facility] Comment on above: Performed By: #### L 100.0100, L500.2500 ####[facility] [address] [place], [address] Potassium [Moles/Vol] 3.5 mmol/L Normal 3.3-5.1 [facility] Comment on above: Performed By: #### L 100.0100, L500.2500 ####[facility] [address] [place], [address] Sodium [Moles/Vol] 140 mmol/L Normal 133-145 [facility] Comment on above: Performed By: #### L 100.0100, L500.2500 ####[facility] [address] [place], [address] Urea nitrogen [Mass/Vol] 18 mg/dL Normal 4-19 [facility] Comment on above: Performed By: #### L 100.0100, L500.2500 ####[facility] [address] [place], [address] Bedside Glucoseon 03-05-2025 FINGERSTICK GLU 224 mg/dL High -106 [facility] Comment on above: Result Comment: DANILE GEMENT OF PATIENT CARE PER NURSING PROTOCOL Performed By: #### L 501.080 ####[facility] [address] [place], [address] FINGERSTICK GLU 179 mg/dL High -106 [facility] Comment on above: Result Comment: DANIEL GEMENT OF PATIENT CARE PER NURSING PROTOCOL Performed By: #### L 501.080 ####[facility] [address] [place], [address] FINGERSTICK GLU 210 mg/dL High [address] [place] [address] Comment on above: Result Comment: DANIEL GEMENT OF PATIENT CARE PER NURSING PROTOCOL Performed By: #### L 501.080 ####[facility] [address] [place], [address] FINGERSTICK GLU 141 mg/dL High [facility]106 [facility] Comment on above: Result Comment: DANIEL GEMENT OF PATIENT CARE PER NURSING PROTOCOL Performed By: #### L 501.080 ####[facility] [address] [place], [address] FINGERSTICK GLU 149 mg/dL High [address] [place] [address] Comment on above: Result Comment: DANIEL GEMENT OF PATIENT CARE PER NURSING PROTOCOL Performed By: #### L 501.080 ####[facility] [address] [place], [address] Bilirubin directOrdered By: Linda Marte on 03-05-2025 Bilirubin.direct [Mass/Vol] 0.71 mg/dL High 0.00-0.30 [facility] Bilirubin, totalOrdered By: Linda Marte on 03-05-2025 Bilirubin [Mass/Vol] 0.94 mg/dL 0.00-1.30 [facility] CBC W/Diff, Automatedon 09-0 6-2024 Absolute Lymph 0.75 X10 3/uL Low 0.83-4.51 [facility] Comment on above: Performed By: #### L 100.0100, L500.2500 ####[facility] [address] [place], [address] Absolute Neut 6.2 X10 3/uL Normal 2.0-7.7 [facility] Comment on above: Performed By: #### L 100.0100, L500.2500 ####[facility] [address] [place], [address] Basophils/100 WBC (Bld) 0.1 % Normal 0-1 [facility] Comment on above: Performed By: #### L 100.0100, L500.2500 ####[facility] [address] [place], [address] Eosinophils/100 WBC (Bld) 0.9 % Normal 0-5 [facility] Comment on above: Performed By: #### L 100.0100, L500.2500 ####[facility] [address] [place], [address] Erythrocyte distribution width (RBC) [Ratio] 14.4 % Normal 11.6-14.6 [facility] Comment on above: Performed By: #### L 100.0100, L500.2500 ####[facility] [address] [place], [address] Hematocrit (Bld) [Volume fraction] 24.7 % Low 37-47 [facility] Comment on above: Performed By: #### L 100.0100, L500.2500 ####[facility] [address] [place], [address] Hemoglobin (Bld) [Mass/Vol] 7.7 g/dL Low 12.0-15.0 [facility] Comment on above: Performed By: #### L 100.0100, L500.2500 ####[facility] [address] [place], [address] IG% 0.500 Normal 0.0-0.9 [facility] Comment on above: Result Comment: IG% - Immature Granulocytes (promyelocytes, myelocytes andmetamyelocytes) > 1% indicates that a LEFT SHIFT is Present. Performed By: #### L 100.0100, L500.2500 ####[facility] [address] [place], [address] Lymphocytes/100 WBC (Bld) 9.8 % Low 19-41 [facility] Comment on above: Performed By: #### L 100.0100, L500.2500 ####[facility] [address] [place], [address] MCH (RBC) [Entitic mass] 30.6 pg Normal 27.0-32.0 [facility] Comment on above: Performed By: #### L 100.0100, L500.2500 ####[facility] [address] [place], [address] MCHC (RBC) [Mass/Vol] 31.2 g/dL Low 32-36 [facility] Comment on above: Performed By: #### L 100.0100, L500.2500 ####[facility] [address] [place], [address] MCV (RBC) [Entitic vol] 98.0 fL Normal 81-99 [facility] Comment on above: Performed By: #### L 100.0100, L500.2500 ####[facility] [address] [place], [address] Monocytes/100 WBC (Bld) 8.3 % Normal 0-10 [facility] Comment on above: Performed By: #### L 100.0100, L500.2500 ####[facility] [address] [place], [address] Neutrophils/100 WBC (Bld) 80.4 % High 47-70 [facility] Comment on above: Performed By: #### L 100.0100, L500.2500 ####[facility] [address] [place], [address] Nucleated RBC (Bld) [#/Vol] 0 10*3/uL Normal 0-5 [facility] Comment on above: Performed By: #### L 100.0100, L500.2500 ####[facility] [address] [place], [address] Platelet mean volume (Bld) [Entitic vol] 11.1 fL Normal 6.2-12.0 [facility] Comment on above: Performed By: #### L 100.0100, L500.2500 ####[facility] [address] [place], [address] Platelets (Bld) [#/Vol] 134 10*3/uL Low 150-450 [facility] Comment on above: Performed By: #### L 100.0100, L500.2500 ####[facility] [address] [place], [address] RBC (Bld) [#/Vol] 2.52 10*6/uL Low 4.2-5.4 [facility] Comment on above: Performed By: #### L 100.0100, L500.2500 ####[facility] [address] [place], [address] RDW SD 51.4 fl High 35.1-43.9 [facility] Comment on above: Performed By: #### L 100.0100, L500.2500 ####[facility] [address] [place], [address] WBC (Bld) [#/Vol] 7.7 10*3/uL Normal 4.4-11.0 [facility] Comment on above: Performed By: #### L 100.0100, L500.2500 ####[facility] [address] [place], [place], [id number] Hepatitis B Surface Antibody on 03-05-2025 HEP B Surf Ab Non-Reactive Normal [facility] Comment on above: Result Comment: <8.5 mIU/mL: Non-Reactive8.5<= x <11.5 mIU/mL: Indeterminate>=11.5 mIU/mL: Reactive Non Reactive: Inconsistent with immunity less than <10 mIU/mL Reactive: Consistent with immunity greater than or equal to 10 mIU/mL Performed By: #### L 3890.6301, L3890.6202, L3890.6102 ####[facility] [address] [facility] [place], [address] Hepatitis C Antibodyon 03-05 Hepatitis C Ab Non-Reactive Normal Nonreactive [facility] Comment on above: Order Comment: Reaso n for Exam: transaminitis Result Comment: Reac tive: Presumptive evidence of antibodies to HCV. FollowC recommendations for supplemental testing.Non-Reactive: Antibodies to HCV were not detected; does notexclude the possibility of exposure to HCVReactive Results are presumptive evidence of antibodies toHCV. Follow CDC recommendations for supplemental testing.Order confirmation testing: HCV Quant by PCR testing -HCVPCR #[id number] Non Reactive: < 0.8 Equivocal: >/= 0.8 to < 1.0 Reactive: >/= 1.0The CDC requires that a reactive/equivocal HCV antibodyresult be sent out for confirmation. HCV Quant by PCRtesting. Performed By: #### L 3890.6301, L3890.6202, L3890.6102 ####[facility] [address] [place], [place], [id number] L3890.6102on 03-05-2025 HEP B Surf Ag Non-Reactive Normal Nonreactive [facility] Comment on above: Order Comment: Reaso n for Exam: transaminitis Result Comment: Reac tive: Presumptive evidence of HBV. Repeatedly reactivesamples must be confirmed using a neutralization test([employer] HBsAg Confirmatory Test)Non-Reactive: HBsAg not detected; does not exclude thepossibility of exposure to HBV Performed By: #### L 3890.6301, L3890.6202, L3890.6102 ####[facility] [address] [place], [place], [id number] Laboratory - Chemistry and C hemistry - challengeOrdered By: Linda Marte on 03-05-2025 AST [Catalytic activity/Vol] 101 U/L High <32 [facility] Laboratory - Microbiology an d Antimicrobial susceptibilityOrdered By: Linda Marte on 03-05-2025 HBV surface Ag Ql (S) Non-Reactive Nonreactive [facility] Comment on above: Reactive: Presumptiv e evidence of HBV. Repeatedly reactive samples must be confirmed using a neutralization test ([employer] HBsAg Confirmatory Test)Non-Reactive: HBsAg not detected; does not exclude the possibility of exposure to HBV Lipid Profileon 03-05-2025 CHOL Normal <=200 [facility] Comment on above: Result Comment: Suhas elled via OM: MD Ordered Performed By: #### L 500.4100 ####[facility] [address] [place], [address] CHOL:HDL Normal [facility] Comment on above: Result Comment: Suhas elled via OM: MD Ordered Performed By: #### L 500.4100 ####[facility] [address] [place], [address] CLDL Normal [facility] Comment on above: Result Comment: Suhas elled via OM: MD Ordered Performed By: #### L 500.4100 ####[facility] [address] [place], [address] HDL Normal [facility] Comment on above: Result Comment: Suhas elled via OM: MD Ordered Performed By: #### L 500.4100 ####[facility] [address] [place], [address] TRIG Normal [facility] Comment on above: Result Comment: Sukhdeep elled via OM: Ordered Performed By: #### L 500.4100 ####[facility] [address] [place], [address] VLDL Normal 5-40 [facility] Comment on above: Result Comment: Suhas elled via OM: MD Ordered Performed By: #### L 500.4100 ####[facility] [address] [place], [address] Liver Profileon 03-05-2025 Albumin [Mass/Vol] 2.6 g/dL Low 3.4-4.8 [facility] Comment on above: Performed By: #### L 500.3400 ####[facility] [address] [place], [address] ALK PHOS 225 U/L High 35-104 [facility] Comment on above: Performed By: #### L 500.3400 ####[facility] [address] [place], [address] ALT [Catalytic activity/Vol] 44 U/L High <=34 [facility] Comment on above: Performed By: #### L 500.3400 ####[facility] [address] [place], [address] AST [Catalytic activity/Vol] 101 U/L High <=31 [facility] Comment on above: Performed By: #### L 500.3400 ####[facility] [address] [place], [address] Bilirubin [Mass/Vol] 0.94 mg/dL Normal 0.00-1.30 [facility] Comment on above: Performed By: #### L 500.3400 ####[facility] [address] [place], [address] Bilirubin.direct [Mass/Vol] 0.71 mg/dL High 0.00-0.30 [facility] Comment on above: Performed By: #### L 500.3400 ####[facility] [address] [place], [place], [address] Globulin (S) [Mass/Vol] 3.4 g/dL Normal 2.2-4.2 [facility] Comment on above: Performed By: #### L 500.3400 ####[facility] [address] [place], [place], [id number] T PROT 6.0 g/dL Normal 5.9-8.4 [facility] Comment on above: Performed By: #### L 500.3400 ####[facility] [address] [place], [address] Serum globulin measurementOr dered By: Linda Marte on 03-05-2025 Globulin (S) [Mass/Vol] 3.4 g/dL 2.2-4.2 [facility] Serum hepatitis B virus surf anabelle antibody detectionOrdered By: Linda Marte on 03-05-2025 HBV surface Ab Ql (S) Non-Reactive [facility] Comment on above: <8.5 mIU/mL: Non-[place] ctive8.5<= x <11.5 mIU/mL: Indeterminate>=11.5 mIU/mL: Reactive Non Reactive: Inconsistent with immunity less than <10 mIU/mL Reactive: Consistent with immunity greater than or equal to 10 mIU/mL Serum or plasma alanine potts otransferase (ALT) measurementOrdered By: Linda Marte on 03-05-2025 ALT [Catalytic activity/Vol] 44 U/L High <35 [facility] Serum or plasma albumin sonu urement (mass/volume)Ordered By: Linda Marte on 03-05-2025 Albumin [Mass/Vol] 2.6 g/dL Low 3.4-4.8 [facility] Serum or plasma alkaline dwain sphatase measurementOrdered By: Linda Marte on 03-05-2025 ALP [Catalytic activity/Vol] 225 U/L High 35-104 [facility] Total proteinOrdered By: Mayte kobi Lewisjosé on 03-05-2025 Protein [Mass/Vol] 6.0 g/dL 5.9-8.4 [facility] Bedside Glucoseon 03-04-2025 FINGERSTICK GLU 207 mg/dL High 74-106 [facility] Comment on above: Result Comment: DANIEL GEMENT OF PATIENT CARE PER NURSING PROTOCOL Performed By: #### L 501.080 ####[facility] [address] [place], [address] FINGERSTICK GLU 196 mg/dL High 74-106 [facility] Comment on above: Result Comment: DANIEL GEMENT OF PATIENT CARE PER NURSING PROTOCOL Performed By: #### L 501.080 ####[facility] [address] [place], [address] FINGERSTICK GLU 171 mg/dL High 74-106 [facility] Comment on above: Result Comment: DANIEL GEMENT OF PATIENT CARE PER NURSING PROTOCOL Performed By: #### L 501.080 ####[facility] [address] [place], [address] FINGERSTICK GLU 183 mg/dL High 74-106 [facility] Comment on above: Result Comment: DANIEL GEMENT OF PATIENT CARE PER NURSING PROTOCOL Performed By: #### L 501.080 ####[facility] [address] [place], [address] CBC W/Diff, Automatedon Absolute Lymph 0.37 X10 3/uL Low 0.83-4.51 [facility] Comment on above: Performed By: #### L 500.4050, L300.3900, L100.0100 ####[facility] [address] [place], [address] Absolute Neut 18.4 X10 3/uL High 2.0-7.7 [facility] Comment on above: Performed By: #### L 500.4050, L300.3900, L100.0100 ####[facility] [address] [place], [address] Basophils/100 WBC (Bld) 0.1 % Normal 0-1 [facility] Comment on above: Performed By: #### L 500.4050, L300.3900, L100.0100 ####[facility] [address] [place], [address] Eosinophils/100 WBC (Bld) 0.0 % Normal 0-5 [facility] Comment on above: Performed By: #### L 500.4050, L300.3900, L100.0100 ####[facility] [address] [place], [address] Erythrocyte distribution width (RBC) [Ratio] 14.5 % Normal 11.6-14.6 [facility] Comment on above: Performed By: #### L 500.4050, L300.3900, L100.0100 ####[facility] [address] [place], [address] Hematocrit (Bld) [Volume fraction] 28.8 % Low 37-47 [facility] Comment on above: Performed By: #### L 500.4050, L300.3900, L100.0100 ####[facility] [address] [place], [address] Hemoglobin (Bld) [Mass/Vol] 9.0 g/dL Low 12.0-15.0 [facility] Comment on above: Performed By: #### L 500.4050, L300.3900, L100.0100 ####[facility] [address] [place], [address] IG% 1.000 High 0.0-0.9 [facility] Comment on above: Result Comment: IG% - Immature Granulocytes (promyelocytes, myelocytes andmetamyelocytes) > 1% indicates that a LEFT SHIFT is Present. Performed By: #### L 500.4050, L300.3900, L100.0100 ####[facility] [address] [place], [address] Lymphocytes/100 WBC (Bld) 1.8 % Low 19-41 [facility] Comment on above: Performed By: #### L 500.4050, L300.3900, L100.0100 ####[facility] [address] [place], [address] MCH (RBC) [Entitic mass] 31.0 pg Normal 27.0-32.0 [facility] Comment on above: Performed By: #### L 500.4050, L300.3900, L100.0100 ####[facility] [address] [place], [address] MCHC (RBC) [Mass/Vol] 31.3 g/dL Low 32-36 [facility] Comment on above: Performed By: #### L 500.4050, L300.3900, L100.0100 ####[facility] [address] [place], [address] MCV (RBC) [Entitic vol] 99.3 fL High 81-99 [facility] Comment on above: Performed By: #### L 500.4050, L300.3900, L100.0100 ####[facility] [address] [place], [address] Monocytes/100 WBC (Bld) 5.2 % Normal 0-10 [facility] Comment on above: Performed By: #### L 500.4050, L300.3900, L100.0100 ####[facility] [address] [place], [address] Neutrophils/100 WBC (Bld) 91.9 % High 47-70 [facility] Comment on above: Performed By: #### L 500.4050, L300.3900, L100.0100 ####[facility] [address] [place], [address] Nucleated RBC (Bld) [#/Vol] 0 10*3/uL Normal 0-5 [facility] Comment on above: Performed By: #### L 500.4050, L300.3900, L100.0100 ####[facility] [address] [place], [address] Platelet mean volume (Bld) [Entitic vol] 11.1 fL Normal 6.2-12.0 [facility] Comment on above: Performed By: #### L 500.4050, L300.3900, L100.0100 ####[facility] [address] [place], [address] Platelets (Bld) [#/Vol] 169 10*3/uL Normal 150-450 [facility] Comment on above: Performed By: #### L 500.4050, L300.3900, L100.0100 ####[facility] [address] [place], [address] RBC (Bld) [#/Vol] 2.90 10*6/uL Low 4.2-5.4 [facility] Comment on above: Performed By: #### L 500.4050, L300.3900, L100.0100 ####[facility] [address] [place], [address] RDW SD 52.9 fl High 35.1-43.9 [facility] Comment on above: Performed By: #### L 500.4050, L300.3900, L100.0100 ####[facility] [address] [place], [address] WBC (Bld) [#/Vol] 20.0 10*3/uL High 4.4-11.0 [facility] Comment on above: Performed By: #### L 500.4050, L300.3900, L100.0100 ####[facility] [address] [place], [address] Comprehensive Metabolic Prof toribio 03-04-2025 Albumin [Mass/Vol] 2.7 g/dL Low 3.4-4.8 [facility] Comment on above: Performed By: #### L 500.4050, L300.3900, L100.0100 ####[facility] [address] [place], [address] ALK PHOS 291 U/L High 35-104 [facility] Comment on above: Performed By: #### L 500.4050, L300.3900, L100.0100 ####[facility] [address] [place], [address] ALT [Catalytic activity/Vol] 37 U/L High <=34 [facility] Comment on above: Performed By: #### L 500.4050, L300.3900, L100.0100 ####[facility] [address] [place], [address] AST [Catalytic activity/Vol] 76 U/L High <=31 [facility] Comment on above: Performed By: #### L 500.4050, L300.3900, L100.0100 ####[facility] [address] [place], [address] Bilirubin [Mass/Vol] 1.94 mg/dL High 0.00-1.30 [facility] Comment on above: Performed By: #### L 500.4050, L300.3900, L100.0100 ####[facility] [address] [place], [address] BUN/CRE 17.8 RATIO Normal 10-20 [facility] Comment on above: Performed By: #### L 500.4050, L300.3900, L100.0100 ####[facility] [address] [place], [address] Calcium [Mass/Vol] 7.9 mg/dL Normal 7.6-11.0 [facility] Comment on above: Performed By: #### L 500.4050, L300.3900, L100.0100 ####[facility] [address] [place], [address] Chloride [Moles/Vol] 107 mmol/L Normal 98-108 [facility] Comment on above: Performed By: #### L 500.4050, L300.3900, L100.0100 ####[facility] [address] [place], [address] CO2 [Moles/Vol] 18.7 mmol/L Low 21.0-32.0 [facility] Comment on above: Performed By: #### L 500.4050, L300.3900, L100.0100 ####[facility] [address] [place], [address] Creatinine [Mass/Vol] 1.16 mg/dL Normal 0.70-1.20 [facility] Comment on above: Performed By: #### L 500.4050, L300.3900, L100.0100 ####[facility] [address] [place], [address] ECRCL 36.55 ml/min Low 50-250 [facility] Comment on above: Performed By: #### L 500.4050, L300.3900, L100.0100 ####[facility] [address] [place], [address] GAP 11 Normal 5-15 [facility] Comment on above: Performed By: #### L 500.4050, L300.3900, L100.0100 ####[facility] [address] [place], [address] GFR/1.73 sq M.predicted among non-blacks MDRD (S/P/Bld) [Vol rate/Area] 47 mL/min/{1.73_m2} Low >60 [facility] Comment on above: Result Comment: mL/m in/1.73m2 CKD-EPI Creatinine Equation (2020) Performed By: #### L 500.4050, L300.3900, L100.0100 ####[facility] [address] [place], [address] Globulin (S) [Mass/Vol] 3.7 g/dL Normal 2.2-4.2 [facility] Comment on above: Performed By: #### L 500.4050, L300.3900, L100.0100 ####[facility] [address] [place], [address] Glucose [Mass/Vol] 175 mg/dL High 70-99 [facility] Comment on above: Performed By: #### L 500.4050, L300.3900, L100.0100 ####[facility] [address] [place], [address] Potassium [Moles/Vol] 3.8 mmol/L Normal 3.3-5.1 [facility] Comment on above: Performed By: #### L 500.4050, L300.3900, L100.0100 ####[facility] [address] [place], [address] Sodium [Moles/Vol] 137 mmol/L Normal 133-145 [facility] Comment on above: Performed By: #### L 500.4050, L300.3900, L100.0100 ####[facility] [address] [place], [address] T PROT 6.5 g/dL Normal 5.9-8.4 [facility] Comment on above: Performed By: #### L 500.4050, L300.3900, L100.0100 ####[facility] [address] [place], [address] Urea nitrogen [Mass/Vol] 21 mg/dL High 4-19 [facility] Comment on above: Performed By: #### L 500.4050, L300.3900, L100.0100 ####[facility] [address] [place], [address] Consultation - Intensiviston 03-04-2025 Consultation - Blasting Helper Normal [facility] Gram Stainon 03-04-2025 GS Acceptable Specimen? Yes (<25 Epithelial cells per/lpf) Gram Stain Rare Gram positive rods Rare White Blood Cells Rare Epithelial cells Normal [facility] Comment on above: Performed By: #### M 100.2000, M100.2400 ####[facility] [address] [place], [address] International normalized rat io (INR) calculationOrdered By: Desiree Trent on 03-04-2025 INR Coag (Bld) [Relative time] 1.5 {INR} [facility] Prothrombin Time w/INRon INR Coag (PPP) [Relative time] 1.5 {INR} Normal [facility] Comment on above: Performed By: #### L 500.4050, L300.3900, L100.0100 ####[facility] [address] [place], [address] Prothrombin timeOrdered By: Desiree Trent on 03-04-2025 PT Coag (PPP) [Time] 18.4 s High 11.7-14.9 [facility] Comment on above: Performed By: #### L 500.4050, L300.3900, L100.0100 ####[facility] [address] [place], [address] Serum or plasma albumin/glob ulin mass ratioOrdered By: Desiree Trent on 03-04-2025 Albumin/Globulin [Mass ratio] 0.7 {ratio} Low 0.9-2.4 [facility] Comment on above: Performed By: #### L 500.4050, L300.3900, L100.0100 ####[facility] [address] [place], [place], [address] TSH DL <= 0.005 mIU/L QnOrde red By: Mario Dunaway on 03-04-2025 TSH Qn 1.770 uIU/mL 0.300-4.200 [facility] Thyroid Stim Hormone (TSH)on 03-04-2025 TSH 1.770 uIU/mL Normal 0.300-4.200 [facility] Comment on above: Performed By: #### L 501.9585 ####[facility] [address] [place], [place], [address] 12 Lead EKGon 03-03-2025 12 Lead EKG Normal [facility] Abdomen/Pelvis W IV Cont ONL Yon 03-03-2025 Abdomen/Pelvis W IV Cont ONLY Normal [facility] Absolute lymphocyte countOrd ered By: Frieda Laurent on 03-03-2025 Lymphocytes Auto (Unsp spec) [#/Vol] 0.30 10*3/uL Low 0.83-4.51 [facility] Absolute neutrophil countOrd ered By: Frieda Laurent on 03-03-2025 Neutrophils (Bld) [#/Vol] 12.9 10*3/uL High 2.0-7.7 [facility] Anion gap in Serum or Plasma Ordered By: Frieda Laurent on 03-03-2025 Anion gap [Moles/Vol] 12 mmol/L 5-15 [facility] Assessment of wrist artery p atency prior to arterial punctureOrdered By: Frieda Laurent on 03-03-2025 Arterial patency Wrist artery --pre arterial puncture Positive [facility] Automated lymphocyte count a s percentage of total leukocytesOrdered By: Frieda Laurent on 03-03-2025 Lymphocytes/100 WBC Auto (Unsp spec) 2.2 % Low 19-41 [facility] BUN/creatinine ratioOrdered By: Frieda Laurent on 03-03-2025 Urea nitrogen/Creatinine [Mass ratio] 23.4 mg/mg High 10-20 [facility] Basophil percentageOrdered B y: Frieda Laurent on 03-03-2025 Basophils/100 WBC (Bld) 0.4 % 0-1 [facility] Bedside Glucoseon 03-03-2025 FINGERSTICK GLU 134 mg/dL High 74-106 [facility] Comment on above: Result Comment: DANIEL RAWLS OF PATIENT CARE PER NURSING PROTOCOL Performed By: #### L 501.080 ####[facility] [address] [place], [address] Bilirubin Test strip Ql (U)O rdered By: Frieda Laurent on 03-03-2025 Bilirubin Ql (U) Negative Negative [facility] Bilirubin, totalOrdered By: Frieda Laurent on 03-03-2025 Bilirubin [Mass/Vol] 2.53 mg/dL High 0.00-1.30 [facility] Blood Gases by CPSon 025 JAYLYN TEST Positive Normal [facility] Comment on above: Performed By: #### L 9000.0800 ####[facility] [address] [place], [address] Base excess Calc (Bld) [Moles/Vol] 1 mmol/L Normal -2 to +2 [facility] Comment on above: Performed By: #### L 9000.0800 ####[facility] [address] [place], [address] Blood Gas Type ART Normal [facility] Comment on above: Performed By: #### L 9000.0800 ####[facility] [address] [place], [address] CO2 [Moles/Vol] 27 mmol/L Normal [facility] Comment on above: Performed By: #### L 9000.0800 ####[facility] [address] [place], [address] FI02 50.0 Normal [facility] Comment on above: Performed By: #### L 9000.0800 ####[facility] [address] [place], [address] HCO3 (Bld) [Moles/Vol] 25.7 mmol/L Normal 22-26 [facility] Comment on above: Performed By: #### L 9000.0800 ####[facility] [address] [place], [address] Mode AC Normal [facility] Comment on above: Performed By: #### L 9000.0800 ####[facility] [address] [place], [address] O2 Delivery Dev Adult Vent Normal [facility] Comment on above: Performed By: #### L 9000.0800 ####[facility] [address] [place], [address] pCO2 40.1 mmHg Normal 35-45 [facility] Comment on above: Performed By: #### L 9000.0800 ####[facility] [address] [place], [address] PEEP 5 Normal [facility] Comment on above: Performed By: #### L 9000.0800 ####[facility] [address] [place], [address] pH (Bld) 7.42 [pH] Normal 7.35-7.45 [facility] Comment on above: Performed By: #### L 9000.0800 ####[facility] [address] [place], [address] PO2 84 mmHG Normal 75-100 [facility] [facility] Comment on above: Performed By: #### L 9000.0800 ####[facility] [address] [place], [address] RR 14 Normal [facility] Comment on above: Performed By: #### L 9000.0800 ####[facility] [address] [place], [address] SITE L Radial Normal [facility] Comment on above: Performed By: #### L 8999.08 ####[facility] [address] [place], [address] SO2 96 Normal 95-99 [facility] Comment on above: Performed By: #### L 8999.0800 ####[facility] [address] [place], [address] Vt 400.0 mL Normal [facility] Comment on above: Performed By: #### L 8999.0800 ####[facility] [address] [place], [address] JAYLYN TEST Positive Normal [facility] Comment on above: Performed By: #### L 8999.08 ####[facility] [address] [place], [address] Base excess Calc (Bld) [Moles/Vol] -2 mmol/L Normal -2 to +2 [facility] Comment on above: Performed By: #### L 8999.08 ####[facility] [address] [place], [address] Blood Gas Type ART Normal [facility] Comment on above: Performed By: #### L 8999.0800 ####[facility] [address] [place], [address] CO2 [Moles/Vol] 23 mmol/L Normal [facility] Comment on above: Performed By: #### L 8999.08 ####[facility] [address] [place], [address] HCO3 (Bld) [Moles/Vol] 21.7 mmol/L Low 22-26 [facility] Comment on above: Performed By: #### L 8999.0800 ####[facility] [address] [place], [address] Mode Not entered Normal [facility] Comment on above: Performed By: #### L 9000.0800 ####[facility] [address] [place], [address] O2 Delivery Dev Cannula Normal [facility] Comment on above: Performed By: #### L 0.0800 ####[facility] [address] [place], [address] pCO2 29.8 mmHg Low 35-45 [facility] Comment on above: Performed By: #### L 9000.0800 ####[facility] [address] [place], [address] pH (Bld) 7.47 [pH] High 7.35-7.45 [facility] Comment on above: Performed By: #### L 9000.0800 ####[facility] [address] [place], [address] PO2 78 mmHG Normal 75-100 [facility] Comment on above: Performed By: #### L 9000.0800 ####[facility] [address] [place], [address] SITE R Radial Normal [facility] Comment on above: Performed By: #### L 0.0800 ####[facility] [address] [place], [address] SO2 96 Normal 95-99 [facility] Comment on above: Performed By: #### L 9000.0800 ####[facility] [address] [place], [address] Blood base excess determinat ionOrdered By: Frieda Laurent on 03-03-2025 Base excess Calc (BldV) [Moles/Vol] 1 mmol/L -2-2 [facility] Blood bicarbonate measuremen tOrdered By: Frieda Laurent on 03-03-2025 HCO3 (Bld) [Moles/Vol] 25.7 mmol/L 22-26 [facility] Blood cultureOrdered By: Namrata Laurent on 03-03-2025 Bacteria identified Cx Nom (Bld) ESBL Escherichia coli Abnormal [facility] Bacteria identified Cx Nom (Bld) GNR lactose roofer vinyl coating Abnormal [facility] CBC W/Diff, Automatedon Absolute Lymph 0.30 X10 3/uL Low 0.83-4.51 [facility] Comment on above: Performed By: #### L 503.6005, M200.1000, L100.0100, L500.4050 ####[facility] [address] [place], [address] Absolute Neut 12.9 X10 3/uL High 2.0-7.7 [facility] Comment on above: Performed By: #### L 503.6005, M200.1000, L100.0100, L500.4050 ####[facility] [address] [place], [address] Basophils/100 WBC (Bld) 0.4 % Normal 0-1 [facility] Comment on above: Performed By: #### L 503.6005, M200.1000, L100.0100, L500.4050 ####[facility] [address] [place], [address] Eosinophils/100 WBC (Bld) 0.2 % Normal 0-5 [facility] Comment on above: Performed By: #### L 503.6005, M200.1000, L100.0100, L500.4050 ####[facility] [address] [place], [address] Erythrocyte distribution width (RBC) [Ratio] 14.1 % Normal 11.6-14.6 [facility] Comment on above: Performed By: #### L 503.6005, M200.1000, L100.0100, L500.4050 ####[facility] [address] [place], [address] Hematocrit (Bld) [Volume fraction] 32.8 % Low 37-47 [facility] Comment on above: Performed By: #### L 503.6005, M200.1000, L100.0100, L500.4050 ####[facility] [address] [place], [address] Hemoglobin (Bld) [Mass/Vol] 10.4 g/dL Low 12.0-15.0 [facility] Comment on above: Performed By: #### L 503.6005, M200.1000, L100.0100, L500.4050 ####[facility] [address] [place], [address] IG% 0.500 Normal 0.0-0.9 [facility] Comment on above: Result Comment: IG% - Immature Granulocytes (promyelocytes, myelocytes andmetamyelocytes) > 1% indicates that a LEFT SHIFT is Present. Performed By: #### L 503.6005, M200.1000, L100.0100, L500.4050 ####[facility] [address] [place], [address] Lymphocytes/100 WBC (Bld) 2.2 % Low 19-41 [facility] Comment on above: Performed By: #### L 503.6005, M200.1000, L100.0100, L500.4050 ####[facility] [address] [place], [address] MCH (RBC) [Entitic mass] 30.7 pg Normal 27.0-32.0 [facility] Comment on above: Performed By: #### L 503.6005, M200.1000, L100.0100, L500.4050 ####[facility] [address] [place], [address] MCHC (RBC) [Mass/Vol] 31.7 g/dL Low 32-36 [facility] Comment on above: Performed By: #### L 503.6005, M200.1000, L100.0100, L500.4050 ####[facility] [address] [place], [address] MCV (RBC) [Entitic vol] 96.8 fL Normal 81-99 [facility] Comment on above: Performed By: #### L 503.6005, M200.1000, L100.0100, L500.4050 ####[facility] [address] [place], [address] Monocytes/100 WBC (Bld) 1.3 % Normal 0-10 [facility] Comment on above: Performed By: #### L 503.6005, M200.1000, L100.0100, L500.4050 ####[facility] [address] [place], [address] Neutrophils/100 WBC (Bld) 95.4 % High 47-70 [facility] Comment on above: Performed By: #### L 503.6005, M200.1000, L100.0100, L500.4050 ####[facility] [address] [place], [address] Nucleated RBC (Bld) [#/Vol] 0 10*3/uL Normal 0-5 [facility] Comment on above: Performed By: #### L 503.6005, M200.1000, L100.0100, L500.4050 ####[facility] [address] [place], [address] Platelet mean volume (Bld) [Entitic vol] 10.9 fL Normal 6.2-12.0 [facility] Comment on above: Performed By: #### L 503.6005, M200.1000, L100.0100, L500.4050 ####[facility] [address] [place], [address] Platelets (Bld) [#/Vol] 191 10*3/uL Normal 150-450 [facility] Comment on above: Performed By: #### L 503.6005, M200.1000, L100.0100, L500.4050 ####[facility] [address] [place], [address] RBC (Bld) [#/Vol] 3.39 10*6/uL Low 4.2-5.4 [facility] Comment on above: Performed By: #### L 503.6005, M200.1000, L100.0100, L500.4050 ####[facility] [address] [place], [address] RDW SD 49.9 fl High 35.1-43.9 [facility] Comment on above: Performed By: #### L 503.6005, M200.1000, L100.0100, L500.4050 ####[facility] [address] [place], [address] WBC (Bld) [#/Vol] 13.5 10*3/uL High 4.4-11.0 [facility] Comment on above: Performed By: #### L 503.6005, M200.1000, L100.0100, L500.4050 ####[facility] [address] [place], [address] CPK Total, Creatine Kinaseon 03-03-2025 CPK TOTAL 48 U/L Normal 24-195 [facility] Comment on above: Order Comment: Comme nts: DC when propofol is d/c'd Performed By: #### L 501.3620, L501.5000 ####[facility] [address] [place], [address] Carbon dioxide, total [Moles /volume] in Central venous bloodOrdered By: Frieda Laurent on 03-03-2025 CO2 [Moles/Vol] 22.6 mmol/L 21.0-32.0 [facility] Chest 1 View (Portable)on Chest 1 View (Portable) Normal [facility] Chloride assayOrdered By: Carlo Laurent on 03-03-2025 Chloride [Moles/Vol] 101 mmol/L 98-108 [facility] Comprehensive Metabolic Prof ilon 03-03-2025 Albumin [Mass/Vol] 3.7 g/dL Normal 3.4-4.8 [facility] Comment on above: Performed By: #### L 503.6005, M200.1000, L100.0100, L500.4050 ####[facility] [address] [place], [address] Albumin/Globulin [Mass ratio] 0.9 {ratio} Normal 0.9-2.4 [facility] Comment on above: Performed By: #### L 503.6005, M200.1000, L100.0100, L500.4050 ####[facility] [address] [place], [address] ALK PHOS 378 U/L High 35-104 [facility] Comment on above: Performed By: #### L 503.6005, M200.1000, L100.0100, L500.4050 ####[facility] [address] [place], [address] ALT [Catalytic activity/Vol] 39 U/L High <=34 [facility] Comment on above: Performed By: #### L 503.6005, M200.1000, L100.0100, L500.4050 ####[facility] [address] [place], [address] AST [Catalytic activity/Vol] 77 U/L High <=31 [facility] Comment on above: Performed By: #### L 503.6005, M200.1000, L100.0100, L500.4050 ####[facility] [address] [place], [address] Bilirubin [Mass/Vol] 2.53 mg/dL High 0.00-1.30 [facility] Comment on above: Performed By: #### L 503.6005, M200.1000, L100.0100, L500.4050 ####[facility] [address] [place], [address] BUN/CRE 23.4 RATIO High 10-20 [facility] Comment on above: Performed By: #### L 503.6005, M200.1000, L100.0100, L500.4050 ####[facility] [address] [place], [address] Calcium [Mass/Vol] 9.0 mg/dL Normal 7.6-11.0 [facility] Comment on above: Performed By: #### L 503.6005, M200.1000, L100.0100, L500.4050 ####[facility] [address] [place], [address] Chloride [Moles/Vol] 101 mmol/L Normal 98-108 [facility] Comment on above: Performed By: #### L 503.6005, M200.1000, L100.0100, L500.4050 ####[facility] [address] [place], [address] CO2 [Moles/Vol] 22.6 mmol/L Normal 21.0-32.0 [facility] Comment on above: Performed By: #### L 503.6005, M200.1000, L100.0100, L500.4050 ####[facility] [address] [place], [address] Creatinine [Mass/Vol] 0.96 mg/dL Normal 0.70-1.20 [facility] Comment on above: Performed By: #### L 503.6005, M200.1000, L100.0100, L500.4050 ####[facility] [address] [place], [address] ECRCL 44.36 ml/min Low 50-250 [facility] Comment on above: Performed By: #### L 503.6005, M200.1000, L100.0100, L500.4050 ####[facility] [address] [place], [address] GAP 12 Normal 5-15 [facility] Comment on above: Performed By: #### L 503.6005, M200.1000, L100.0100, L500.4050 ####[facility] [address] [place], [address] GFR/1.73 sq M.predicted among non-blacks MDRD (S/P/Bld) [Vol rate/Area] 60 mL/min/{1.73_m2} Normal >60 [facility] Comment on above: Result Comment: mL/m in/1.73m2 CKD-EPI Creatinine Equation (2020) Performed By: #### L 503.6005, M200.1000, L100.0100, L500.4050 ####[facility] [address] [place], [address] Globulin (S) [Mass/Vol] 4.1 g/dL Normal 2.2-4.2 [facility] Comment on above: Performed By: #### L 503.6005, M200.1000, L100.0100, L500.4050 ####[facility] [address] [place], [address] Glucose [Mass/Vol] 214 mg/dL High 70-99 [facility] Comment on above: Performed By: #### L 503.6005, M200.1000, L100.0100, L500.4050 ####[facility] [address] [place], [address] Potassium [Moles/Vol] 3.9 mmol/L Normal 3.3-5.1 [facility] Comment on above: Performed By: #### L 503.6005, M200.1000, L100.0100, L500.4050 ####[facility] [address] [place], [address] Sodium [Moles/Vol] 135 mmol/L Normal 133-145 [facility] Comment on above: Performed By: #### L 503.6005, M200.1000, L100.0100, L500.4050 ####[facility] [address] [place], [address] T PROT 7.9 g/dL Normal 5.9-8.4 [facility] Comment on above: Performed By: #### L 503.6005, M200.1000, L100.0100, L500.4050 ####[facility] [address] [place], [address] Urea nitrogen [Mass/Vol] 22 mg/dL High 4-19 [facility] Comment on above: Performed By: #### L 503.6005, M200.1000, L100.0100, L500.4050 ####[facility] [address] [place], [address] Emergency Department Summary on 03-03-2025 Emergency Department Summary Normal [facility] Eosinophil percentageOrdered By: Frieda Laurent on 03-03-2025 Eosinophils/100 WBC (Bld) 0.2 % 0-5 [facility] Erythrocyte distribution wid th ratioOrdered By: Frieda Laurent on 03-03-2025 Erythrocyte distribution width (RBC) [Ratio] 14.1 % 11.6-14.6 [facility] Erythrocyte distribution wid th standard deviationOrdered By: Frieda Laurent on 03-03-2025 Erythrocyte distribution width (RBC) [Ratio] 49.9 fl High 35.1-43.9 [facility] Glomerular filtration rate ( GFR) estimation/1.73 sq m using serum, plasma, or whole bOrdered By: Frieda Laurent on 03-03-2025 GFR/1.73 sq M.predicted among non-blacks MDRD (S/P/Bld) [Vol rate/Area] 60 mL/min/{1.73_m2} >60 [facility] Comment on above: mL/min/1.73m2 CKD-EP I Creatinine Equation (2020) Gram stainOrdered By: Frieda Laurent on 03-03-2025 Microscopic observation Gram stain Nom (Unsp spec) [facility] H AND P Exam - Hospitaliston 03-03-2025 H&P Exam - Hospitalist Normal [facility] Hematocrit Auto (Bld) [Volum e fraction]Ordered By: Frieda Laurent on 03-03-2025 Hematocrit (Bld) [Volume fraction] 32.8 % Low 37-47 [facility] Hemoglobin measurementOrdere d By: Frieda Laurent on 03-03-2025 Hemoglobin (Bld) [Mass/Vol] 10.4 g/dL Low 12.0-15.0 [facility] Immature granulocytes/100 WB C Auto (Bld)Ordered By: Frieda Laurent on 03-03-2025 Immature granulocytes/100 WBC (Bld) 0.500 % 0.0-0.9 [facility] Comment on above: IG% - Immature Granu locytes (promyelocytes, myelocytes and metamyelocytes) > 1% indicates that a LEFT SHIFT is Present. Influenza virus A and B and SARS-CoV-2 (COVID-19) and Respiratory syncytial virus RNAOrdered By: Frieda Laurent on 03-03-2025 SARS-CoV-2 (COVID-19) RNA LUBA+probe Ql (Unsp spec) [facility] Ketones Test strip Ql (U)Ord ered By: Frieda Laurent on 03-03-2025 Ketones Ql (U) Negative Negative [facility] L501.4021on 03-03-2025 Trop T High Sen 49 ng/L High <=14 [facility] Comment on above: Performed By: #### L 501.4027 ####[facility] [address] [place], [place], [address] Laboratory - Chemistry and C hemistry - challengeOrdered By: Frieda Laurent on 03-03-2025 AST [Catalytic activity/Vol] 77 U/L High <32 [facility] Lactic acid measurementOrder ed By: Frieda Laurent on 03-03-2025 Lactate [Moles/Vol] 3.4 mmol/L Invalid Interpretation Code 0.0-2.0 [facility] Comment on above: Critical Result(s) C alled at: by: JACOB HOLLAND Results read back by same. Order Comment: Y Result Comment: Crit ical Result(s) Called at: by: JACOB HOLLAND??Results readback by same. Performed By: #### L 503.6005, M200.1000, L100.0100, L500.4050 ####[facility] [address] [place], [place], [id number] M100.678on 03-03-2025 M100.678 SARS-CoV-2 (COVID 19 ) Negative INFLUENZA A Negative INFLUENZA B Negative RSV PCR Negative Normal [facility] Comment on above: Performed By: #### L 400.0001, M100.2200, M100.678 ####[facility] [address] [place], [place], [id number] MCV (mean corpuscular volume ) determinationOrdered By: Frieda Laurent on 03-03-2025 MCV (RBC) [Entitic vol] 96.8 fL 81-99 [facility] Mean corpuscular hemoglobin (MCH) determinationOrdered By: Frieda Laurent on 03-03-2025 MCH (RBC) [Entitic mass] 30.7 pg 27.0-32.0 [facility] Mean corpuscular hemoglobin concentration (MCHC) determinationOrdered By: Frieda Laurent on 03-03-2025 MCHC (RBC) [Mass/Vol] 31.7 g/dL Low 32-36 [facility] Mean platelet volume determi nationOrdered By: Frieda Laurent on 03-03-2025 Platelet mean volume (Bld) [Entitic vol] 10.9 fL 6.2-12.0 [facility] Measurement, pHOrdered By: Jazmyn Laurent on 03-03-2025 pH (Unsp spec) 7.42 [pH] 7.35-7.45 [facility] Microbial respiratory cultur eOrdered By: Frieda Laurent on 03-03-2025 Microorganism identified Cx Nom (Unsp spec) ESBL Escherichia coli Abnormal [facility] Microorganism identified Cx Nom (Unsp spec) Meth. resistant Staph. aureus Abnormal [facility] Microscopic analysis of urin e for red blood cells (RBC)Ordered By: Frieda Laurent on 03-03-2025 Microscopic analysis of urine for red blood cells (RBC) 0 SEEN /hpf 0-5 [facility] Monocyte percentageOrdered B y: Frieda Laurent on 03-03-2025 Monocytes/100 WBC (Bld) 1.3 % 0-10 [facility] Mucus LM Ql (Urine sed)Order ed By: Frieda Laurent on 03-03-2025 Mucus Ql (Urine sed) 0 SEEN /hpf [facility] Neutrophil percentageOrdered By: Frieda Laurent on 03-03-2025 Neutrophils/100 WBC (Bld) 95.4 % High 47-70 [facility] Nitrite Test strip Ql (U)Ord ered By: Frieda Laurent on 03-03-2025 Nitrite Ql (U) Positive High Negative [facility] No Panel InformationOrdered By: Frieda Laurent on 03-03-2025 Bedside Blood Gas PEEP 5 [facility] Blood Gas Respiration Rate 14 [facility] Blood Gas Sample Site L Radial [facility] Blood Gas Specimen Type ART [facility] Blood Gas Tidal Volume 400.0 mL [facility] Blood Gas Vent Mode AC [place] [facility] [place] Delivery Device Adult Vent [facility] Nucleated red blood cell per centageOrdered By: Frieda Laurent on 03-03-2025 Nucleated RBC/100 WBC (Bld) [Ratio] 0 % 0-5 [facility] Platelet countOrdered By: Carlo Laurent on 03-03-2025 Platelets (Bld) [#/Vol] 191 10*3/uL 150-450 [facility] Potassium measurement (mass/ volume)Ordered By: Frieda Laurent on 03-03-2025 Potassium (Unsp spec) [Mass/Vol] 3.9 mmol/L 3.3-5.1 [facility] Protein Test strip Ql (U)Ord ered By: Frieda Laurent on 03-03-2025 Protein Ql (U) 100 mg/dl High Negative [facility] RBC Auto (Bld) [#/Vol]Ordere d By: Frieda Laurent on 03-03-2025 RBC (Bld) [#/Vol] 3.39 10*6/uL Low 4.2-5.4 [facility] RESPIRATORY PANEL MOLECULARo n 03-03-2025 RP PANEL Normal [facility] Comment on above: Performed By: #### M 100.638 ####[facility] [address] [place], [place], [address] Respiratory pathogens detect ion panel by molecular detection methodOrdered By: Desiree Trent on 03-03-2025 Respiratory pathogens DNA and RNA panel LUBA+probe (Resp) [facility] Serum creatinine measurement (mass/volume)Ordered By: Frieda Laurent on 03-03-2025 Creatinine [Mass/Vol] 0.96 mg/dL 0.70-1.20 [facility] Serum globulin measurementOr dered By: Frieda Laurent on 03-03-2025 Globulin (S) [Mass/Vol] 4.1 g/dL 2.2-4.2 [facility] Serum glucose measurement (m ass/volume)Ordered By: Frieda Laurent on 03-03-2025 Glucose [Mass/Vol] 214 mg/dL High 70-99 [facility] Serum or plasma alanine potts otransferase (ALT) measurementOrdered By: Frieda Laurent on 03-03-2025 ALT [Catalytic activity/Vol] 39 U/L High <35 [facility] Serum or plasma albumin sonu urement (mass/volume)Ordered By: Frieda Laurent on 03-03-2025 Albumin [Mass/Vol] 3.7 g/dL 3.4-4.8 [facility] Serum or plasma albumin/glob ulin mass ratioOrdered By: Frieda Laurent on 03-03-2025 Albumin/Globulin [Mass ratio] 0.9 {ratio} 0.9-2.4 [facility] Serum or plasma alkaline dwain sphatase measurementOrdered By: Frieda Laurent on 03-03-2025 ALP [Catalytic activity/Vol] 378 U/L High 35-104 [facility] Serum or plasma calcium sonu urement (mass/volume)Ordered By: Frieda Laurent on 03-03-2025 Calcium [Mass/Vol] 9.0 mg/dL 7.6-11.0 [facility] Serum or plasma creatine kin ase activityOrdered By: Frieda Laurent on 03-03-2025 CK [Catalytic activity/Vol] 48 U/L 24-195 [facility] Serum or plasma urea nitroge n measurement (mass/volume)Ordered By: Frieda Laurent on 03-03-2025 Urea nitrogen [Mass/Vol] 22 mg/dL High 4-19 [facility] Sodium levelOrdered By: Carl Laurent on 03-03-2025 Sodium [Moles/Vol] 135 mmol/L 133-145 [facility] Squamous epithelial cells de tection in urine sediment by light microscopyOrdered By: Frieda Laurent on 03-03-2025 Epithelial cells.squamous LM Ql (Urine sed) 0 SEEN /hpf 5-10 [facility] Total carbon dioxide measure mentOrdered By: Frieda Laurent on 03-03-2025 CO2 [Moles/Vol] 27 mmol/L [facility] Total proteinOrdered By: Namrata Laurent on 03-03-2025 Protein [Mass/Vol] 7.9 g/dL 5.9-8.4 [facility] Triglycerideson 03-03-2025 Triglyceride [Mass/Vol] 119 mg/dL Normal [facility] Comment on above: Order Comment: Comme nts: DC when propofol is d/c'dDC when propofol is d/c'd Result Comment: The drugs N-Acetylcysteine and Metamizole may falselydepress this assay.Normal range: <150 mg/dLBorderline High: 150-199 mg/dLHigh: 200-499 mg/dLVery High: >500 mg/dL Performed By: #### L 501.3620, L501.5000 ####[facility] [address] [place], [place], [address] Triglycerides measurementOrd ered By: Frieda Laurent on 03-03-2025 Triglyceride [Mass/Vol] 119 mg/dL <199 [facility] Comment on above: The drugs N-Acetylcy steine and Metamizole may falsely depress this assay. Normal range: <150 mg/dLBorderline High: 150-199 mg/dLHigh: 200-499 mg/dLVery High: >500 mg/dL Troponin T HS 2 HRon 025 Trop T High Sen 25 ng/L High <=14 [facility] Comment on above: Performed By: #### L 499.0042 ####[facility] [address] [place], [place], [id number] Troponin T HS 4 HRon 025 Trop T High Sen 54 ng/L Invalid Interpretation Code <=14 [facility] Comment on above: Result Comment: Crit ical Result(s) Called GWYCOFF at: 2030 by:KEVIN??Results read back by same. Performed By: #### L 499.0043 ####[facility] [address] [place], [place], [address] Troponin T.cardiac [Mass/vol ume] in Serum or Plasma by High sensitivity methodOrdered By: Frieda Laurent on 03-03-2025 Troponin T.cardiac High sensitivity method [Mass/Vol] 54 ng/L Critically high <14 [facility] Comment on above: Critical Result(s) C alled GWYCOFF at: 2030 by: KEVIN Results read back by same. Troponin T.cardiac High sensitivity method [Mass/Vol] 25 ng/L High <14 [facility] Troponin T.cardiac High sensitivity method [Mass/Vol] 49 ng/L High <14 [facility] Urinalysis, Completeon 03-03 WBC >100 SEEN Normal 0-5 [facility] Comment on above: Order Comment: ANGELY TER SPECIMEN Performed By: #### L 400.0001, M100.2200, M100.678 ####[facility] [address] [place], [address] BACTERIA 0 SEEN Normal None Seen [facility] Comment on above: Order Comment: ANGELY TER SPECIMEN Performed By: #### L 400.0001, M100.2200, M100.678 ####[facility] [address] [place], [address] EPI,SQUAMOUS 0 SEEN Normal 5-10 [facility] Comment on above: Order Comment: ANGELY TER SPECIMEN Performed By: #### L 400.0001, M100.2200, M100.678 ####[facility] [address] [place], [address] Mucus Ql (Urine sed) 0 SEEN Normal [facility] Comment on above: Order Comment: ANGELY TER SPECIMEN Performed By: #### L 400.0001, M100.2200, M100.678 ####[facility] [address] [place], [address] RBC 0 SEEN Normal 0-5 [facility] Comment on above: Order Comment: ANGELY TER SPECIMEN Performed By: #### L 400.0001, M100.2200, M100.678 ####[facility] [address] [place], [address] Urine clarityOrdered By: Namrata Laurent on 03-03-2025 Clarity (U) Sl. Cloudy Clear [facility] Urine color determinationOrd ered By: Frieda Laurent on 03-03-2025 Color (U) Yellow Yellow [facility] Comment on above: Microscopic field is filled. Other elements may be obscured.Previous reported result: Yellow Edited by: JACQUELYN on 03/03/25:1522 AMENDED REPORT 03/03/25 1522 COLOR previously reported as: Yellow Urine cultureOrdered By: Namrata Laurent on 03-03-2025 Bacteria identified Cx Nom (U) ESBL Escherichia coli Abnormal [facility] Urine glucose detectionOrder ed By: Frieda Laurent on 03-03-2025 Glucose Ql (U) Normal mg/dl Normal [facility] Urine leukocyte esterase det ection by dipstickOrdered By: Frieda Laurent on 03-03-2025 Leukocyte esterase Test strip Ql (U) 500 /ul High Negative [facility] Urine pHOrdered By: Frieda duran on 03-03-2025 pH (U) 5.0 [pH] 5.0 - 8.0 [facility] Urine sediment bacteria coun t by microscopy (number/high power field)Ordered By: Frieda Laurent on 03-03-2025 Bacteria LM.HPF (Urine sed) [#/Area] 0 /[HPF] None Seen [facility] Urine specific gravity measu rementOrdered By: Frieda Laurent on 03-03-2025 Specific gravity (U) [Rel density] 1.015 1.002-1.030 [facility] Urine urobilinogen measureme ntOrdered By: Frieda Laurent on 03-03-2025 Urobilinogen Ql (U) 1 mg/dl High Normal [facility] White blood cell (WBC) count Ordered By: Frieda Laurent on 03-03-2025 WBC (Bld) [#/Vol] 13.5 10*3/uL High 4.4-11.0 [facility] White blood cell countOrdere d By: Frieda Laurent on 03-03-2025 White blood cell count >100 SEEN /hpf 0-5 [facility] Anion gap in Serum or Plasma Ordered By: Juve Dejesus on 12-14-2024 Anion gap [Moles/Vol] 9 mmol/L 5-15 [facility] Automated blood erythrocyte countOrdered By: Juve Dejesus on 12-14-2024 RBC (Bld) [#/Vol] 3.35 10*6/uL Low 4.2-5.4 [facility] Comment on above: Performed By: #### L 500.2500, L501.9310, L501.9985, L506.1001, L501.9520, L503.6150, L500.4100, L100.0500 ####[facility] [address] [place], [place], [phone] Automated blood hematocrit ( percentage)Ordered By: Juve Dejesus on 12-14-2024 Hematocrit (Bld) [Volume fraction] 32.9 % Low 37-47 [facility] Comment on above: Performed By: #### L 500.2500, L501.9310, L501.9985, L506.1001, L501.9520, L503.6150, L500.4100, L100.0500 ####[facility] [address] [place], [place], [phone] BUN/creatinine ratioOrdered By: Juve Dejesus on 12-14-2024 Urea nitrogen/Creatinine [Mass ratio] 34.4 mg/mg High 10- [facility] Basic Metabolic Profile (BMP )on 12-14-2024 BUN/CRE 34.4 RATIO High - [facility] Comment on above: Performed By: #### L 500.2500, L501.9310, L501.9985, L506.1001, L501.9520, L503.6150, L500.4100, L100.0500 ####[facility] [address] [place], [place], [phone] GAP 9 Normal 5-15 [facility] Comment on above: Performed By: #### L 500.2500, L501.9310, L501.9985, L506.1001, L501.9520, L503.6150, L500.4100, L100.0500 ####[facility] [address] [place], [place], [address] Potassium [Moles/Vol] 4.0 mmol/L Normal 3.3-5.1 [facility] Comment on above: Performed By: #### L 500.2500, L501.9310, L501.9985, L506.1001, L501.9520, L503.6150, L500.4100, L100.0500 ####[facility] [address] [place], [place], [phone] CBC-Complete Blood Cnt No Di ffon 12-14-2024 RDW SD 47.3 fl High 35.1-43.9 [facility] Comment on above: Performed By: #### L 500.2500, L501.9310, L501.9985, L506.1001, L501.9520, L503.6150, L500.4100, L100.0500 ####[facility] [address] [place], [address] Calculated very low density lipoprotein (VLDL) cholesterol measurementOrdered By: Juve Dejesus on 12-14-2024 Calculated very low density lipoprotein (VLDL) cholesterol measurement 14 mg/dL 5-40 [facility] Carbon dioxide, total [Moles /volume] in Central venous bloodOrdered By: Juve Dejesus on 12-14-2024 CO2 [Moles/Vol] 25.7 mmol/L Normal 21.0-32.0 [facility] Comment on above: Performed By: #### L 500.2500, L501.9310, L501.9985, L506.1001, L501.9520, L503.6150, L500.4100, L100.0500 ####[facility] [address] [place], [place], [phone] Chloride assayOrdered By: Baljit Dejesus on 12-14-2024 Chloride [Moles/Vol] 106 mmol/L Normal 98-108 [facility] Comment on above: Performed By: #### L 500.2500, L501.9310, L501.9985, L506.1001, L501.9520, L503.6150, L500.4100, L100.0500 ####[facility] [address] [place], [address] Erythrocyte distribution wid th ratioOrdered By: Juve Dejesus on 12-14-2024 Erythrocyte distribution width (RBC) [Ratio] 13.2 % Normal 11.6-14.6 [facility] Comment on above: Performed By: #### L 500.2500, L501.9310, L501.9985, L506.1001, L501.9520, L503.6150, L500.4100, L100.0500 ####[facility] [address] [place], [address] Erythrocyte distribution wid th standard deviationOrdered By: Juve Dejesus on 12-14-2024 Erythrocyte distribution width (RBC) [Ratio] 47.3 fl High 35.1-43.9 [facility] Glomerular filtration rate ( GFR) estimation/1.73 sq m using serum, plasma, or whole bOrdered By: Juve Dejesus on 12-14-2024 GFR/1.73 sq M.predicted among non-blacks MDRD (S/P/Bld) [Vol rate/Area] 81 mL/min/{1.73_m2} Normal >60 [facility] Comment on above: mL/min/1.73m2 CKD-EP I Creatinine Equation (2020) Result Comment: mL/m in/1.73m2 CKD-EPI Creatinine Equation (2020) Performed By: #### L 500.2500, L501.9310, L501.9985, L506.1001, L501.9520, L503.6150, L500.4100, L100.0500 ####[facility] [address] [place], [place], [phone] Hemoglobin A1c percentageOrd ered By: Juve Dejesus on 12-14-2024 HbA1c (Bld) [Mass fraction] 8.2 % High <=5.6 [facility] Comment on above: Normal < 5.7 % Predi abetic 5.7 - 6.4 % Diabetic >or= 6.5 % Please note range changes. Result Comment: Norm al < 5.7 % Prediabetic 5.7 - 6.4 % Diabetic >or= 6.5 % Please note range changes. Performed By: #### L 500.2500, L501.9310, L501.9985, L506.1001, L501.9520, L503.6150, L500.4100, L100.0500 ####[facility] [address] [place], [place], [phone] Hemoglobin measurementOrdere d By: Juve Dejesus on 12-14-2024 Hemoglobin (Bld) [Mass/Vol] 10.4 g/dL Low 12.0-15.0 [facility] Comment on above: Performed By: #### L 500.2500, L501.9310, L501.9985, L506.1001, L501.9520, L503.6150, L500.4100, L100.0500 ####[facility] [address] [place], [place], [phone] Ironon 12-14-2024 Iron [Mass/Vol] 54 ug/dL Normal 50-170 [facility] Comment on above: Performed By: #### L 500.2500, L501.9310, L501.9985, L506.1001, L501.9520, L503.6150, L500.4100, L100.0500 ####[facility] [address] [place], [address] Iron measurement (mass/mass) Ordered By: Juve Dejesus on 12-14-2024 Iron (Unsp spec) [Mass/Mass] 54 ug/dL 50-170 [facility] LDL calc ser/plasOrdered By: Juve Dejesus on 12-14-2024 Cholesterol in LDL [Mass/Vol] 63 mg/dL Normal [facility] Comment on above: Ykpspvkpxq=966-536 m g/dL & Higher Kvoo=537 mg/dL or greater Result Comment: Bord mwaxjo=949-356 mg/dL Higher Abgw=034 mg/dL or greater Performed By: #### L 500.2500, L501.9310, L501.9985, L506.1001, L501.9520, L503.6150, L500.4100, L100.0500 ####[facility] [address] [place], [address] Lipid Profileon 12-14-2024 CHOL:HDL 2.97 Normal [facility] Comment on above: Performed By: #### L 500.2500, L501.9310, L501.9985, L506.1001, L501.9520, L503.6150, L500.4100, L100.0500 ####[facility] [address] [place], [place], [phone] Cholesterol in VLDL [Mass/Vol] 14 mg/dL Normal 5-40 [facility] Comment on above: Performed By: #### L 500.2500, L501.9310, L501.9985, L506.1001, L501.9520, L503.6150, L500.4100, L100.0500 ####[facility] [address] [place], [place], [address] MCV (mean corpuscular volume ) determinationOrdered By: Juve Dejesus on 12-14-2024 MCV (RBC) [Entitic vol] 98.2 fL Normal 81-99 [facility] Comment on above: Performed By: #### L 500.2500, L501.9310, L501.9985, L506.1001, L501.9520, L503.6150, L500.4100, L100.0500 ####[facility] [address] [place], [address] Mean corpuscular hemoglobin (MCH) determinationOrdered By: Juve Dejesus on 12-14-2024 MCH (RBC) [Entitic mass] 31.0 pg Normal 27.0-32.0 [facility] Comment on above: Performed By: #### L 500.2500, L501.9310, L501.9985, L506.1001, L501.9520, L503.6150, L500.4100, L100.0500 ####[facility] [address] [place], [address] Mean corpuscular hemoglobin concentration (MCHC) determinationOrdered By: Juve Dejesus on 12-14-2024 MCHC (RBC) [Mass/Vol] 31.6 g/dL Low 32-36 [facility] Comment on above: Performed By: #### L 500.2500, L501.9310, L501.9985, L506.1001, L501.9520, L503.6150, L500.4100, L100.0500 ####[facility] [address] [place], [place], [address] Mean platelet volume determi nationOrdered By: Juve Dejesus on 12-14-2024 Platelet mean volume (Bld) [Entitic vol] 11.7 fL Normal 6.2-12.0 [facility] Comment on above: Performed By: #### L 500.2500, L501.9310, L501.9985, L506.1001, L501.9520, L503.6150, L500.4100, L100.0500 ####[facility] [address] [facility] [address] [place], [place], [phone] Platelet countOrdered By: Baljit Dejesus on 12-14-2024 Platelets (Bld) [#/Vol] 105 10*3/uL Low 150-450 [facility] Comment on above: Performed By: #### L 500.2500, L501.9310, L501.9985, L506.1001, L501.9520, L503.6150, L500.4100, L100.0500 ####[facility] [address] [facility] [place], [place], [address] Potassium measurement (mass/ volume)Ordered By: Juve Dejesus on 12-14-2024 Potassium (Unsp spec) [Mass/Vol] 4.0 mmol/L 3.3-5.1 [facility] Screening total cholesterol/ high density lipoprotein (HDL) cholesterol ratioOrdered By: Juve Dejesus on 12-14-2024 Cholesterol.total/Choles terol in HDL [Mass ratio] 2.97 {ratio} [facility] Serum creatinine measurement (mass/volume)Ordered By: Juve Dejesus on 12-14-2024 Creatinine [Mass/Vol] 0.75 mg/dL Normal 0.70-1.20 [facility] Comment on above: Performed By: #### L 500.2500, L501.9310, L501.9985, L506.1001, L501.9520, L503.6150, L500.4100, L100.0500 ####[facility] [address] [place], [place], [phone]) Serum glucose measurement (m ass/volume)Ordered By: Juve Dejesus on 12-14-2024 Glucose [Mass/Vol] 83 mg/dL Normal 70-99 [facility] Comment on above: Performed By: #### L 500.2500, L501.9310, L501.9985, L506.1001, L501.9520, L503.6150, L500.4100, L100.0500 ####[facility] [address] [facility] [address] [place], [place], [phone](472) Serum or plasma calcium sonu urement (mass/volume)Ordered By: Juve Dejesus on 12-14-2024 Calcium [Mass/Vol] 9.3 mg/dL Normal 7.6-11.0 [facility] Comment on above: Performed By: #### L 500.2500, L501.9310, L501.9985, L506.1001, L501.9520, L503.6150, L500.4100, L100.0500 ####[facility] [address] [facility] [place], [place], [phone](218) Serum or plasma cholesterol in HDL measurement (mass/volume)Ordered By: Juve Dejesus on 12-14-2024 Cholesterol in HDL [Mass/Vol] 39 mg/dL Low [facility] Comment on above: National Cholesterol Education [...] L501.9310, L501.9985, L506.1001, L501.9520, L503.6150, L500.4100, L100.0500 ####[facility] [address] [place], [place], [phone](070) Serum or plasma cholesterol measurement (mass/volume)Ordered By: Juve Dejesus on 12-14-2024 Cholesterol [Mass/Vol] 116 mg/dL Normal <=200 [facility] Comment on above: Cholesterol level, D esirable <200 mg/dLBorderline high cholesterol 200-239 mg/dLHigh cholesterol >=240 mg/dLRecommendations of the NCEP Adult Treatment Panel for the following risk-cutoff thresholds for the [place] population. Result Comment: Chol esterol level, Desirable <200 mg/dLBorderline high cholesterol 200-239 mg/dLHigh cholesterol >=240 mg/dLRecommendations of the NCEP Adult Treatment Panel for thefollowing risk-cutoff thresholds for the [place] Americanpopulation. Performed By: #### L 500.2500, L501.9310, L501.9985, L506.1001, L501.9520, L503.6150, L500.4100, L100.0500 ####[facility] [address] [place], [address] Serum or plasma urea nitroge n measurement (mass/volume)Ordered By: Juve Dejesus on 12-14-2024 Urea nitrogen [Mass/Vol] 26 mg/dL High 4-19 [facility] Comment on above: Performed By: #### L 500.2500, L501.9310, L501.9985, L506.1001, L501.9520, L503.6150, L500.4100, L100.0500 ####[facility] [address] [facility]. [place], [place], [phone] Sodium levelOrdered By: Samy Dejesus on 12-14-2024 Sodium [Moles/Vol] 141 mmol/L Normal 133-145 [facility] Comment on above: Performed By: #### L 500.2500, L501.9310, L501.9985, L506.1001, L501.9520, L503.6150, L500.4100, L100.0500 ####[facility] [address] [place], [place], [address] TSH DL <= 0.005 mIU/L QnOrde red By: Juve Dejesus on 12-14-2024 TSH Qn 3.320 uIU/mL 0.300-4.200 [facility] Thyroid Stim Hormone (TSH)on 12-14-2024 TSH 3.320 uIU/mL Normal 0.300-4.200 [facility] Comment on above: Performed By: #### L 500.2500, L501.9310, L501.9985, L506.1001, L501.9520, L503.6150, L500.4100, L100.0500 ####[facility] [address] [place], [place], [phone] ThyroxineOrdered By: Juve gordon on 12-14-2024 T4 [Mass/Vol] 8.3 ug/dL Normal 4.8-13.9 [facility] Comment on above: Performed By: #### L 500.2500, L501.9310, L501.9985, L506.1001, L501.9520, L503.6150, L500.4100, L100.0500 ####[facility] [address] [place], [place], [address] Triglycerides measurementOrd ered By: Juve Dejesus on 12-14-2024 Triglyceride [Mass/Vol] 72 mg/dL Normal [facility] Comment on above: The drugs N-Acetylcy steine and Metamizole may falsely depress this assay. Normal range: <150 mg/dLBorderline High: 150-199 mg/dLHigh: 200-499 mg/dLVery High: >500 mg/dL Result Comment: The drugs N-Acetylcysteine and Metamizole may falselydepress this assay.Normal range: <150 mg/dLBorderline High: 150-199 mg/dLHigh: 200-499 mg/dLVery High: >500 mg/dL Performed By: #### L 500.2500, L501.9310, L501.9985, L506.1001, L501.9520, L503.6150, L500.4100, L100.0500 ####[facility] [address] [place], [address] Vitamin D,25 Hydroxyon 12-14 Vitamin D 25-OH 13.7 ng/mL Low -100 [facility] Comment on above: Result Comment: Sobia min D StatusDeficiency: <20 ng/mL (50nmol/L)Insufficiency: 20-30 ng/mL (50-75 nmol/L)Sufficiency: 30-100 ng/mL (75-250 nmol/L)Toxicity: >100 ng/mL (>250 nmol/L) Performed By: #### L 500.2500, L501.9310, L501.9985, L506.1001, L501.9520, L503.6150, L500.4100, L100.0500 ####[facility] [address] [place], [place], [phone] White blood cell (WBC) count Ordered By: Juve Dejesus on 12-14-2024 WBC (Bld) [#/Vol] 3.6 10*3/uL Low 4.4-11.0 [facility] Comment on above: Performed By: #### L 500.2500, L501.9310, L501.9985, L506.1001, L501.9520, L503.6150, L500.4100, L100.0500 ####[facility] [address] [place], [address] Vitamin D,25 Hydroxyon 10-26 Vitamin D 25-OH 16.5 ng/mL Low 30-100 [facility] Comment on above: Result Comment: Sobia min D StatusDeficiency: <20 ng/mL (50nmol/L)Insufficiency: 20-30 ng/mL (50-75 nmol/L)Sufficiency: 30-100 ng/mL (75-250 nmol/L)Toxicity: >100 ng/mL (>250 nmol/L) Performed By: #### L 506.1001 ####[facility] [address] [place], [place], [address] Hemoglobin A1con 09-21-2024 HbA1c (Bld) [Mass fraction] 7.1 % Normal <=5.6 [facility] Comment on above: Order Comment: 504-1 Performed By: #### L 501.9310, L100.0500, L500.2500, L500.4100, L501.9985, L501.9520 ####[facility] [address] [place], [place], [phone] Anion gap in Serum or Plasma Ordered By: Darcy Elias on 09-20-2024 Anion gap [Moles/Vol] 13 mmol/L 5-15 [facility] BUN/creatinine ratioOrdered By: Darcy Elias on 09-20-2024 Urea nitrogen/Creatinine [Mass ratio] 23.4 mg/mg High 10 [facility] Basic Metabolic Profile (BMP )on 09-20-2024 BUN/CRE 23.4 RATIO High [facility] Comment on above: Order Comment: 504-1 Performed By: #### L 501.9310, L100.0500, L500.2500, L500.4100, L501.9985, L501.9520 ####[facility] [address] [place], [place], [phone] Calcium [Mass/Vol] 9.6 mg/dL Normal 7.6-11.0 [facility] Comment on above: Order Comment: 504-1 Performed By: #### L 501.9310, L100.0500, L500.2500, L500.4100, L501.9985, L501.9520 ####[facility] [address] [place], [address] Chloride [Moles/Vol] 103 mmol/L Normal 98-108 [facility] Comment on above: Order Comment: 504-1 Performed By: #### L 501.9310, L100.0500, L500.2500, L500.4100, L501.9985, L501.9520 ####[facility] [address] [place], [address] CO2 [Moles/Vol] 21.9 mmol/L Normal 21.0-32.0 [facility] Comment on above: Order Comment: 504-1 Performed By: #### L 501.9310, L100.0500, L500.2500, L500.4100, L501.9985, L501.9520 ####[facility] [address] [place], [address] Creatinine [Mass/Vol] 0.78 mg/dL Normal 0.70-1.20 [facility] Comment on above: Order Comment: 504-1 Performed By: #### L 501.9310, L100.0500, L500.2500, L500.4100, L501.9985, L501.9520 ####[facility] [address] [place], [address] GAP 13 Normal 5-15 [facility] Comment on above: Order Comment: 504-1 Performed By: #### L 501.9310, L100.0500, L500.2500, L500.4100, L501.9985, L501.9520 ####[facility] [address] [place], [address] GFR/1.73 sq M.predicted among non-blacks MDRD (S/P/Bld) [Vol rate/Area] 76 mL/min/{1.73_m2} Normal >60 [facility] Comment on above: Order Comment: 504-1 Result Comment: mL/m in/1.73m2 CKD-EPI Creatinine Equation (2020) Performed By: #### L 501.9310, L100.0500, L500.2500, L500.4100, L501.9985, L501.9520 ####[facility] [address] [place], [address] Glucose [Mass/Vol] 229 mg/dL High 70-99 [facility] Comment on above: Order Comment: 504-1 Performed By: #### L 501.9310, L100.0500, L500.2500, L500.4100, L501.9985, L501.9520 ####[facility] [address] [place], [address] Potassium [Moles/Vol] 4.2 mmol/L Normal 3.3-5.1 [facility] Comment on above: Order Comment: 504-1 Performed By: #### L 501.9310, L100.0500, L500.2500, L500.4100, L501.9985, L501.9520 ####[facility] [address] [place], [address] Sodium [Moles/Vol] 138 mmol/L Normal 133-145 [facility] Comment on above: Order Comment: 504-1 Performed By: #### L 501.9310, L100.0500, L500.2500, L500.4100, L501.9985, L501.9520 ####[facility] [address] [place], [address] Urea nitrogen [Mass/Vol] 18 mg/dL Normal 4-19 [facility] Comment on above: Order Comment: 504-1 Performed By: #### L 501.9310, L100.0500, L500.2500, L500.4100, L501.9985, L501.9520 ####[facility] [address] [place], [address] CBC-Complete Blood Cnt No Di ffon 09-20-2024 Erythrocyte distribution width (RBC) [Ratio] 12.9 % Normal 11.6-14.6 [facility] Comment on above: Order Comment: 504-1 Performed By: #### L 501.9310, L100.0500, L500.2500, L500.4100, L501.9985, L501.9520 ####[facility] [address] [place], [address] Hematocrit (Bld) [Volume fraction] 33.2 % Low 37-47 [facility] Comment on above: Order Comment: 504-1 Performed By: #### L 501.9310, L100.0500, L500.2500, L500.4100, L501.9985, L501.9520 ####[facility] [address] [place], [address] Hemoglobin (Bld) [Mass/Vol] 10.6 g/dL Low 12.0-15.0 [facility] Comment on above: Order Comment: 504-1 Performed By: #### L 501.9310, L100.0500, L500.2500, L500.4100, L501.9985, L501.9520 ####[facility] [address] [place], [address] MCH (RBC) [Entitic mass] 31.2 pg Normal 27.0-32.0 [facility] Comment on above: Order Comment: 504-1 Performed By: #### L 501.9310, L100.0500, L500.2500, L500.4100, L501.9985, L501.9520 ####[facility] [address] [place], [address] MCHC (RBC) [Mass/Vol] 31.9 g/dL Low 32-36 [facility] Comment on above: Order Comment: 504-1 Performed By: #### L 501.9310, L100.0500, L500.2500, L500.4100, L501.9985, L501.9520 ####[facility] [address] [place], [address] MCV (RBC) [Entitic vol] 97.6 fL Normal 81-99 [facility] Comment on above: Order Comment: 504-1 Performed By: #### L 501.9310, L100.0500, L500.2500, L500.4100, L501.9985, L501.9520 ####[facility] [address] [place], [address] Platelet mean volume (Bld) [Entitic vol] 11.3 fL Normal 6.2-12.0 [facility] Comment on above: Order Comment: 504-1 Performed By: #### L 501.9310, L100.0500, L500.2500, L500.4100, L501.9985, L501.9520 ####[facility] [address] [place], [address] Platelets (Bld) [#/Vol] 126 10*3/uL Low 150-450 [facility] Comment on above: Order Comment: 504-1 Performed By: #### L 501.9310, L100.0500, L500.2500, L500.4100, L501.9985, L501.9520 ####[facility] [address] [place], [address] RBC (Bld) [#/Vol] 3.40 10*6/uL Low 4.2-5.4 [facility] Comment on above: Order Comment: 504-1 Performed By: #### L 501.9310, L100.0500, L500.2500, L500.4100, L501.9985, L501.9520 ####[facility] [address] [place], [address] RDW SD 45.9 fl High 35.1-43.9 [facility] Comment on above: Order Comment: 504-1 Performed By: #### L 501.9310, L100.0500, L500.2500, L500.4100, L501.9985, L501.9520 ####[facility] [address] [place], [address] WBC (Bld) [#/Vol] 4.4 10*3/uL Normal 4.4-11.0 [facility] Comment on above: Order Comment: 504-1 Performed By: #### L 501.9310, L100.0500, L500.2500, L500.4100, L501.9985, L501.9520 ####[facility] [address] [place], [place], [id number] Calculated very low density lipoprotein (VLDL) cholesterol measurementOrdered By: Darcy Elias on 09-20-2024 VLDL Cholesterol 22 mg/dL 5-40 [facility] Carbon dioxide, total [Moles /volume] in Central venous bloodOrdered By: Darcy Elias on 09-20-2024 CO2 [Moles/Vol] 21.9 mmol/L 21.0-32.0 [facility] Chloride assayOrdered By: Barney Elias on 09-20-2024 Chloride [Moles/Vol] 103 mmol/L 98-108 [facility] Erythrocyte distribution wid th (RBC) [Ratio]Ordered By: Darcy Elias on 09-20-2024 Erythrocyte distribution width (RBC) [Entitic vol] 45.9 fL High 35.1-43.9 [facility] Erythrocyte distribution wid th ratioOrdered By: Darcy Elias on 09-20-2024 Erythrocyte distribution width (RBC) [Ratio] 12.9 % 11.6-14.6 [facility] GFR/1.73 sq M.predicted nadir g non-blacks MDRD (S/P/Bld) [Vol rate/Area]Ordered By: Darcy Elias on 09-20-2024 Estimated GFR (MDRD) Non-Af Amer 76 >60 [facility] Comment on above: mL/min/1.73m2 CKD-EP I Creatinine Equation (2020) Hematocrit Auto (Bld) [Volum e fraction]Ordered By: Darcy Elias on 09-20-2024 Hematocrit (Bld) [Volume fraction] 33.2 % Low 37-47 [facility] Hemoglobin A1c percentageOrd ered By: Darcy Elias on 09-20-2024 HbA1c (Bld) [Mass fraction] 7.1 % >5.7 [facility] Hemoglobin measurementOrdere d By: Darcy Elias on 09-20-2024 Hemoglobin (Bld) [Mass/Vol] 10.6 g/dL Low 12.0-15.0 [facility] LDL calc ser/plasOrdered By: Darcycedric Elias on 09-20-2024 LDL Cholesterol, Calculated 56 mg/dL [facility] Comment on above: Jktdmhkzck=742-114 m g/dL & Higher Nfjx=226 mg/dL or greater Lipid Profileon 09-20-2024 CHOL:HDL 2.99 Normal [facility] Comment on above: Order Comment: 504-1 Performed By: #### L 501.9310, L100.0500, L500.2500, L500.4100, L501.9985, L501.9520 ####[facility] [address] [place], [place], [id number]) Cholesterol [Mass/Vol] 118 mg/dL Normal <=200 [facility] Comment on above: Order Comment: 504-1 Result Comment: Chol esterol level, Desirable <200 mg/dLBorderline high cholesterol 200-239 mg/dLHigh cholesterol >=240 mg/dLRecommendations of the NCEP Adult Treatment Panel for thefollowing risk-cutoff thresholds for the [place] Americanpopulation. Performed By: #### L 501.9310, L100.0500, L500.2500, L500.4100, L501.9985, L501.9520 ####[facility] [address] [place], [place], [id number] Cholesterol in HDL [Mass/Vol] 39 mg/dL Low [facility] Comment on above: Order Comment: Result Comment: Zhane onal Cholesterol Education Program (NCEP) guidelines:<40 mg/dL: Low HDL-cholesterol (major risk factor for CHD)>= 60 mg/dL: High HDL-cholesterol (negative risk factor forCHD)HDL-cholesterol is affected by a number of factors, e.g.smoking, exercise, hormones, sex and age. Performed By: #### L 501.9310, L100.0500, L500.2500, L500.4100, L501.9985, L501.9520 ####[facility] [address] [place], [address] Cholesterol in LDL [Mass/Vol] 56 mg/dL Normal [facility] Comment on above: Order Comment: Result Comment: Bord ktouph=010-236 mg/dL Higher Kpzx=338 mg/dL or greater Performed By: #### L 501.9310, L100.0500, L500.2500, L500.4100, L501.9985, L501.9520 ####[facility] [address] [place], [address] Cholesterol in VLDL [Mass/Vol] 22 mg/dL Normal 5-40 [facility] Comment on above: Order Comment: Performed By: #### L 501.9310, L100.0500, L500.2500, L500.4100, L501.9985, L501.9520 ####[facility] [address] [place], [address] Triglyceride [Mass/Vol] 111 mg/dL Normal [facility] Comment on above: Order Comment: Result Comment: The drugs N-Acetylcysteine and Metamizole may falselydepress this assay.Normal range: <150 mg/dLBorderline High: 150-199 mg/dLHigh: 200-499 mg/dLVery High: >500 mg/dL Performed By: #### L 501.9310, L100.0500, L500.2500, L500.4100, L501.9985, L501.9520 ####[facility] [address] [place], [address] MCV (mean corpuscular volume ) determinationOrdered By: Darcy Elias on 09-20-2024 MCV (RBC) [Entitic vol] 97.6 fL 81-99 [facility] Mean corpuscular hemoglobin (MCH) determinationOrdered By: Darcy Elias on 09-20-2024 MCH (RBC) [Entitic mass] 31.2 pg 27.0-32.0 [facility] Mean corpuscular hemoglobin concentration (MCHC) determinationOrdered By: Darcy Elias on 09-20-2024 MCHC (RBC) [Mass/Vol] 31.9 g/dL Low 32-36 [facility] Mean platelet volume determi nationOrdered By: Darcy Elias on 09-20-2024 Platelet mean volume (Bld) [Entitic vol] 11.3 fL 6.2-12.0 [facility] Platelet countOrdered By: Barney Elias on 09-20-2024 Platelets (Bld) [#/Vol] 126 10*3/uL Low 150-450 [facility] Potassium (Unsp spec) [Mass/ Vol]Ordered By: Darcy Elias on 09-20-2024 Potassium [Moles/Vol] 4.2 mmol/L 3.3-5.1 [facility] RBC Auto (Bld) [#/Vol]Ordere d By: Darcy Elias on 09-20-2024 RBC (Bld) [#/Vol] 3.40 10*6/uL Low 4.2-5.4 [facility] Screening total cholesterol/ high density lipoprotein (HDL) cholesterol ratioOrdered By: Darcy Elias on 09-20-2024 Cholesterol.total/Choles terol in HDL [Mass ratio] 2.99 {ratio} [facility] Serum creatinine measurement (mass/volume)Ordered By: Darcy Elias on 09-20-2024 Creatinine [Mass/Vol] 0.78 mg/dL 0.70-1.20 [facility] Serum glucose measurement (m ass/volume)Ordered By: Darcy Elias on 09-20-2024 Glucose [Mass/Vol] 229 mg/dL High 70-99 [facility] Serum or plasma calcium sonu urement (mass/volume)Ordered By: Darcy Elias on 09-20-2024 Calcium [Mass/Vol] 9.6 mg/dL 7.6-11.0 [facility] Serum or plasma cholesterol in HDL measurement (mass/volume)Ordered By: Darcy Elias on 09-20-2024 Cholesterol in HDL [Mass/Vol] 39 mg/dL Low >40 [facility] Comment on above: National Cholesterol Education Program (NCEP) guidelines:<40 mg/dL: Low HDL-cholesterol (major risk factor for CHD)>= 60 mg/dL: High HDL-cholesterol (negative risk factor for CHD)HDL-cholesterol is affected by a number of factors, e.g. smoking, exercise, hormones, sex and age. Serum or plasma cholesterol measurement (mass/volume)Ordered By: Darcy Elias on 09-20-2024 Cholesterol [Mass/Vol] 118 mg/dL <201 [facility] Comment on above: Cholesterol level, D esirable <200 mg/dLBorderline high cholesterol 200-239 mg/dLHigh cholesterol >=240 mg/dLRecommendations of the NCEP Adult Treatment Panel for the following risk-cutoff thresholds for the [place] population. Serum or plasma urea nitroge n measurement (mass/volume)Ordered By: Darcy Elias on 09-20-2024 Urea nitrogen [Mass/Vol] 18 mg/dL 4-19 [facility] Sodium levelOrdered By: Bibi Elias on 09-20-2024 Sodium [Moles/Vol] 138 mmol/L 133-145 [facility] T4 Total, Thyroxinon 025 T4 [Mass/Vol] 8.9 ug/dL Normal 4.8-13.9 [facility] Comment on above: Order Comment: 504-1 Performed By: #### L 501.9310, L100.0500, L500.2500, L500.4100, L501.9985, L501.9520 ####[facility] [address] [place], [place], [id number] TSH DL <= 0.005 mIU/L QnOrde red By: Darcy Elias on 09-20-2024 Thyroid Stimulating Hormone (TSH) 3.890 uIU/mL 0.300-4.200 [facility] Thyroid Stim Hormone (TSH)on 09-20-2024 TSH 3.890 uIU/mL Normal 0.300-4.200 [facility] Comment on above: Order Comment: 504-1 Performed By: #### L 501.9310, L100.0500, L500.2500, L500.4100, L501.9985, L501.9520 ####[facility] [address] [place], [address] ThyroxineOrdered By: Darcy Elias on 09-20-2024 T4 [Mass/Vol] 8.9 ug/dL 4.8-13.9 [facility] Triglycerides measurementOrd ered By: Darcy Elias on 09-20-2024 Triglyceride [Mass/Vol] 111 mg/dL <199 [facility] Comment on above: The drugs N-Acetylcy steine and Metamizole may falsely depress this assay. Normal range: <150 mg/dLBorderline High: 150-199 mg/dLHigh: 200-499 mg/dLVery High: >500 mg/dL White blood cell (WBC) count Ordered By: Darcy Elias on 09-20-2024 WBC (Bld) [#/Vol] 4.4 10*3/uL 4.4-11.0 [facility] Basic Metabolic Profile (BMP )on 06-21-2024 BUN/CRE 37.6 RATIO High 10- [facility] Comment on above: Performed By: #### L 501.9985, L500.4100, L500.2500, L501.9310, L100.0500, L501.9520 ####[facility] [address] [place], [address] CA,Total 9.6 mg/dL Normal 8.5-10.1 [facility] Comment on above: Performed By: #### L 501.9985, L500.4100, L500.2500, L501.9310, L100.0500, L501.9520 ####[facility] [address] [place], [address] Chloride [Moles/Vol] 107 mmol/L Normal 98-107 [facility] Comment on above: Performed By: #### L 501.9985, L500.4100, L500.2500, L501.9310, L100.0500, L501.9520 ####[facility] [address] [place], [address] CO2 [Moles/Vol] 28.0 mmol/L Normal 21.0-32.0 [facility] Comment on above: Performed By: #### L 501.9985, L500.4100, L500.2500, L501.9310, L100.0500, L501.9520 ####[facility] [address] [place], [address] Creatinine [Mass/Vol] 0.77 mg/dL Normal 0.55-1.02 [facility] Comment on above: Result Comment: The validity of the calculated GFR GFRAA in patients over70 years has not been determined. Clinical correlation isessential. Performed By: #### L 501.9985, L500.4100, L500.2500, L501.9310, L100.0500, L501.9520 ####[facility] [address] [place], [address] EST GFR - AA 92 mL/min Normal >60 [facility] Comment on above: Result Comment: Afri can [place] GFR Calc Performed By: #### L 501.9985, L500.4100, L500.2500, L501.9310, L100.0500, L501.9520 ####[facility] [address] [place], [address] GAP 5 Normal 5-15 [facility] Comment on above: Performed By: #### L 501.9985, L500.4100, L500.2500, L501.9310, L100.0500, L501.9520 ####[facility] [address] [place], [address] GFR/1.73 sq M.predicted among non-blacks MDRD (S/P/Bld) [Vol rate/Area] 76 mL/min/{1.73_m2} Normal >60 [facility] Comment on above: Result Comment: Non- GFR Calc Performed By: #### L 501.9985, L500.4100, L500.2500, L501.9310, L100.0500, L501.9520 ####[facility] [address] [place], [address] Glucose [Mass/Vol] 100 mg/dL Normal 74-106 [facility] Comment on above: Result Comment: Fast ing Glucose result from 100 to 125 mg/dLsuggests IMPAIRED HOMEOSTASIS per A.D.A. criteria. Performed By: #### L 501.9985, L500.4100, L500.2500, L501.9310, L100.0500, L501.9520 ####[facility] [address] [place], [address] Potassium [Moles/Vol] 3.9 mmol/L Normal 3.5-5.1 [facility] Comment on above: Performed By: #### L 501.9985, L500.4100, L500.2500, L501.9310, L100.0500, L501.9520 ####[facility] [address] [place], [address] Sodium [Moles/Vol] 140 mmol/L Normal 136-145 [facility] Comment on above: Performed By: #### L 501.9985, L500.4100, L500.2500, L501.9310, L100.0500, L501.9520 ####[facility] [address] [place], [address] Urea nitrogen [Mass/Vol] 29 mg/dL High 7-18 [facility] Comment on above: Performed By: #### L 501.9985, L500.4100, L500.2500, L501.9310, L100.0500, L501.9520 ####[facility] [address] [place], [address] Blood urea nitrogen (BUN)/cr eatinine ratioOrdered By: Darcy Elias on 06-21-2024 Urea nitrogen/Creatinine [Mass ratio] 37.6 mg/mg High 10-20 [facility] CBC-Complete Blood Cnt No Di ffon 06-21-2024 Erythrocyte distribution width (RBC) [Ratio] 13.3 % Normal 11.6-14.6 [facility] Comment on above: Performed By: #### L 501.9985, L500.4100, L500.2500, L501.9310, L100.0500, L501.9520 ####[facility] [address] [place], [address] Hematocrit (Bld) [Volume fraction] 33.1 % Low 37-47 [facility] Comment on above: Performed By: #### L 501.9985, L500.4100, L500.2500, L501.9310, L100.0500, L501.9520 ####[facility] [address] [place], [address] Hemoglobin (Bld) [Mass/Vol] 10.5 g/dL Low 12.0-15.0 [facility] Comment on above: Performed By: #### L 501.9985, L500.4100, L500.2500, L501.9310, L100.0500, L501.9520 ####[facility] [address] [place], [address] MCH (RBC) [Entitic mass] 31.8 pg Normal 27.0-32.0 [facility] Comment on above: Performed By: #### L 501.9985, L500.4100, L500.2500, L501.9310, L100.0500, L501.9520 ####[facility] [address] [place], [address] MCHC (RBC) [Mass/Vol] 31.7 g/dL Low 32-36 [facility] Comment on above: Performed By: #### L 501.9985, L500.4100, L500.2500, L501.9310, L100.0500, L501.9520 ####[facility] [address] [place], [address] MCV (RBC) [Entitic vol] 100.3 fL High 81-99 [facility] Comment on above: Performed By: #### L 501.9985, L500.4100, L500.2500, L501.9310, L100.0500, L501.9520 ####[facility] [address] [place], [address] Platelet mean volume (Bld) [Entitic vol] 11.5 fL Normal 6.2-12.0 [facility] Comment on above: Performed By: #### L 501.9985, L500.4100, L500.2500, L501.9310, L100.0500, L501.9520 ####[facility] [address] [place], [address] Platelets (Bld) [#/Vol] 125 10*3/uL Low 150-450 [facility] Comment on above: Performed By: #### L 501.9985, L500.4100, L500.2500, L501.9310, L100.0500, L501.9520 ####[facility] [address] [place], [address] RBC (Bld) [#/Vol] 3.30 10*6/uL Low 4.2-5.4 [facility] Comment on above: Performed By: #### L 501.9985, L500.4100, L500.2500, L501.9310, L100.0500, L501.9520 ####[facility] [address] [place], [address] RDW SD 49.0 fl High 35.1-43.9 [facility] Comment on above: Performed By: #### L 501.9985, L500.4100, L500.2500, L501.9310, L100.0500, L501.9520 ####[facility] [address] [place], [address] WBC (Bld) [#/Vol] 3.9 10*3/uL Low 4.4-11.0 [facility] Comment on above: Performed By: #### L 501.9985, L500.4100, L500.2500, L501.9310, L100.0500, L501.9520 ####[facility] [address] [place], [address] Carbon dioxide measurementOr dered By: Darcy Elias on 06-21-2024 CO2 [Moles/Vol] 28.0 mmol/L 21.0-32.0 [facility] Chloride measurementOrdered By: Darcy Elias on 06-21-2024 Chloride [Moles/Vol] 107 mmol/L 98-107 [facility] Erythrocyte distribution wid th (RBC) [Ratio]Ordered By: Darcy Elias on 06-21-2024 Erythrocyte distribution width (RBC) [Entitic vol] 49.0 fL High 35.1-43.9 [facility] Erythrocyte distribution wid th ratioOrdered By: Darcy Elias on 06-21-2024 Erythrocyte distribution width (RBC) [Ratio] 13.3 % 11.6-14.6 [facility] Estimated glomerular filtrat ion rate (GFR) AmericanOrdered By: Darcy Elias on 06-21-2024 Estimated GFR (MDRD) Amer 92 mL/min >60 [facility] Comment on above: GFR Calc Glomerular filtration rate ( GFR) estimationOrdered By: Darcy Elias on 06-21-2024 Estimated GFR (MDRD) Non-Af Amer 76 mL/min >60 [facility] Comment on above: Non- GFR Calc Glucose measurementOrdered B y: Darcy Elias on 06-21-2024 Glucose [Mass/Vol] 100 mg/dL 74-106 [facility] Comment on above: Fasting Glucose resu lt from 100 to 125 mg/dL suggests IMPAIRED HOMEOSTASIS per A.D.A. criteria. Hematocrit Auto (Bld) [Volum e fraction]Ordered By: Darcy Elias on 06-21-2024 Hematocrit (Bld) [Volume fraction] 33.1 % Low 37-47 [facility] Hemoglobin A1con 06-21-2024 HbA1c (Bld) [Mass fraction] 7.4 % High 3.8-5.6 [facility] Comment on above: Result Comment: Norm al < 5.7 % Prediabetic 5.7 - 6.4 % Diabetic >or= 6.5 % Please note range changes. Performed By: #### L 501.9985, L500.4100, L500.2500, L501.9310, L100.0500, L501.9520 ####[facility] [address] [place], [place], [id number] Hemoglobin A1c percentageOrd ered By: Darcy Elias on 06-21-2024 HbA1c (Bld) [Mass fraction] 7.4 % High 3.8-5.6 [facility] Comment on above: Normal < 5.7 % Predi abetic 5.7 - 6.4 % Diabetic >or= 6.5 % Please note range changes. Hemoglobin measurementOrdere d By: Darcy Elias on 06-21-2024 Hemoglobin (Bld) [Mass/Vol] 10.5 g/dL Low 12.0-15.0 [facility] High density lipoprotein (HD L) measurementOrdered By: Darcy Elias on 06-21-2024 Cholesterol in HDL [Mass/Vol] 43 mg/dL >40 [facility] Comment on above: The drugs N-Acetylcy steine and Metamizole may falsely depress this assay. Reference Range HDL <40 mg/dL Low HDL Cholesterol HDL >or= 60 mg/dL High HDL Cholesterol Lipid Profileon 06-21-2024 Cholesterol [Mass/Vol] 118 mg/dL Normal 200 [facility] Comment on above: Result Comment: <200 mg/dL Desirable 200-240 mg/dL Borderline >240 mg/dL High Risk Performed By: #### L 501.9985, L500.4100, L500.2500, L501.9310, L100.0500, L501.9520 ####[facility] [address] [place], [address] Cholesterol in HDL [Mass/Vol] 43 mg/dL Normal [facility] Comment on above: Result Comment: The drugs N-Acetylcysteine and Metamizole may falselydepress this assay. Reference Range HDL <40 mg/dL Low HDL Cholesterol HDL >or= 60 mg/dL High HDL Cholesterol Performed By: #### L 501.9985, L500.4100, L500.2500, L501.9310, L100.0500, L501.9520 ####[facility] [address] [place], [address] Cholesterol in LDL [Mass/Vol] 52 mg/dL Normal 0-130 [facility] Comment on above: Performed By: #### L 501.9985, L500.4100, L500.2500, L501.9310, L100.0500, L501.9520 ####[facility] [address] [place], [address] Cholesterol in VLDL [Mass/Vol] 23 mg/dL Normal 5-40 [facility] Comment on above: Performed By: #### L 501.9985, L500.4100, L500.2500, L501.9310, L100.0500, L501.9520 ####[facility] [address] [place], [place], [id number] Triglyceride [Mass/Vol] 114 mg/dL Normal [facility] Comment on above: Result Comment: The drugs N-Acetylcysteine and Metamizole may falselydepress this assay.Serum Triglycerides Reference Interval Normal <150 mg/dL Borderline high 150 - 199 mg/dL High 200 - 499 mg/dL Very High > or = 500 mg/dL Performed By: #### L 501.9985, L500.4100, L500.2500, L501.9310, L100.0500, L501.9520 ####[facility] [address] [place], [place], [id number] Low density lipoprotein (LDL ) cholesterol measurementOrdered By: Darcy Elias on 06-21-2024 Cholesterol in LDL [Mass/Vol] 52 mg/dL 0-130 [facility] MCV (mean corpuscular volume ) determinationOrdered By: Darcy Elias on 06-21-2024 MCV (RBC) [Entitic vol] 100.3 fL High 81-99 [facility] Mean corpuscular hemoglobin (MCH) determinationOrdered By: Darcy Elias on 06-21-2024 MCH (RBC) [Entitic mass] 31.8 pg 27.0-32.0 [facility] Mean corpuscular hemoglobin concentration (MCHC) determinationOrdered By: Darcy Elias on 06-21-2024 MCHC (RBC) [Mass/Vol] 31.7 g/dL Low 32-36 [facility] Mean platelet volume determi nationOrdered By: Darcy Elias on 06-21-2024 Platelet mean volume (Bld) [Entitic vol] 11.5 fL 6.2-12.0 [facility] Platelet countOrdered By: Barney Elias on 06-21-2024 Platelets (Bld) [#/Vol] 125 10*3/uL Low 150-450 [facility] Potassium measurementOrdered By: Darcy Elias on 06-21-2024 Potassium [Moles/Vol] 3.9 mmol/L 3.5-5.1 [facility] RBC Auto (Bld) [#/Vol]Ordere d By: Darcy Elias on 06-21-2024 RBC (Bld) [#/Vol] 3.30 10*6/uL Low 4.2-5.4 [facility] Serum anion gap measurementO rdered By: Darcy Elias on 06-21-2024 Anion gap [Moles/Vol] 5 mmol/L 5-15 [facility] Serum or plasma calcium sonu urement (mass/volume)Ordered By: Darcy Elias on 06-21-2024 Calcium [Mass/Vol] 9.6 mg/dL 8.5-10.1 [facility] Serum or plasma cholesterol measurement (mass/volume)Ordered By: Darcy Elias on 06-21-2024 Cholesterol [Mass/Vol] 118 mg/dL <200 [facility] Comment on above: <200 mg/dL Desirable 200-240 mg/dL Borderline >240 mg/dL High Risk Serum or plasma creatinine m easurement (mass/volume)Ordered By: Darcy Elias on 06-21-2024 Creatinine [Mass/Vol] 0.77 mg/dL 0.55-1.02 [facility] Comment on above: The validity of the calculated GFR & GFRAA in patients over 70 years has not been determined. Clinical correlation is essential. Serum or plasma thyroxine (T 4) measurement (mass/volume)Ordered By: Darcy Elias on 06-21-2024 T4 [Mass/Vol] 11.6 ug/dL 4.8-13.9 [facility] Serum or plasma urea nitroge n measurement (mass/volume)Ordered By: Darcy Elias on 06-21-2024 Urea nitrogen [Mass/Vol] 29 mg/dL High 7-18 [facility] Sodium levelOrdered By: Bibi Elias on 06-21-2024 Sodium [Moles/Vol] 140 mmol/L 136-145 [facility] T4 Total, Thyroxinon 024 T4 [Mass/Vol] 11.6 ug/dL Normal 4.8-13.9 [facility] Comment on above: Performed By: #### L 501.9985, L500.4100, L500.2500, L501.9310, L100.0500, L501.9520 ####[facility] [id number] [place], [place], [id number] TSH QnOrdered By: Darcy carrizales on 06-21-2024 Thyroid Stimulating Hormone (TSH) 2.350 uIU/mL 0.358-3.740 [facility] Thyroid Stim Hormone (TSH)on 06-21-2024 TSH 2.350 uIU/mL Normal 0.358-3.740 [facility] Comment on above: Performed By: #### L 501.9985, L500.4100, L500.2500, L501.9310, L100.0500, L501.9520 ####[facility] [id number] [place], [address] Triglycerides measurementOrd ered By: Darcy Elias on 06-21-2024 Triglyceride [Mass/Vol] 114 mg/dL <199 [facility] Comment on above: The drugs N-Acetylcy steine and Metamizole may falsely depress this assay.Serum Triglycerides Reference Interval Normal <150 mg/dL Borderline high 150 - 199 mg/dL High 200 - 499 mg/dL Very High > or = 500 mg/dL Very low density lipoprotein (VLDL) cholesterol measurementOrdered By: Darcy Elias on 06-21-2024 VLDL Cholesterol 23 mg/dL 5-40 [facility] White blood cell (WBC) count Ordered By: Darcy Elias on 06-21-2024 WBC (Bld) [#/Vol] 3.9 10*3/uL Low 4.4-11.0 [facility] Glynn 11-25-2023 MELISSAN Telephone ([facility]) STEVE VIEIRA ([id number]) 1945 F Date Time Provider Department 11/25/23 PETER ELLIS During your visit today, we recorded the following information about you: Alta Ortiz LPN 11/25/2023 3:46 PM Signed Naye with [facility] calls to report that pt was [...] DM teaching--see if can get in with health promotion educator or PLASTER MOLD MAKER/PAS to help with use of CGM as [...] PM Signed Pt has been admitted to [facility]. See ER and HANDP note. Allergies As [...] - Blood-Glucose Meter,Continuous (FREESTYLE PILAR 3 READER) [facility] Use to check blood sugar at least [...] subcutaneously one time a week. Gets through [employer] PAP. - levothyroxine (SYNTHROID) 25 mcg tablet Take 1 tablet by mouth every Friday,Friday, ay. Take on empty stomach. For thyroid. Add to the levothyroxine 50 mcg once daily dosing but just on Fri-Fri-Fri - empagliflozin (JARDIANCE) 25 mg tablet Take 1 tablet by mouth daily with breakfast. Gets through [employer] PAP. - ferrous sulfate 325 mg (65 [...] Encounter Status:Closed by RENETTA ABERNATHY [facility]04/[facility] ([place]) STEVE VIEIRA ([id number]) 1945 F Date Time Provider Department 11/14/23 [...] set up in the home. WaderezaSherwin bolivar, SAILING INSTRUCTOR 11/20/2023 4:02 PM Signed Lesli spoke with [...] - Blood-Glucose Meter,Continuous (FREESTYLE PILAR 3 READER) [facility] Use to check blood sugar at [...] subcutaneously one time a week. Gets through [employer] PAP. - levothyroxine (SYNTHROID) 25 mcg tablet Take 1 tablet by mouth every Friday,Friday, ay. Take on empty stomach. For thyroid. Add to the levothyroxine 50 mcg once daily dosing but just on Fri-Fri-Fri - empagliflozin (JARDIANCE) 25 mg tablet Take 1 tablet by mouth daily with breakfast. Gets through [employer] PAP. - ferrous sulfate 325 mg (65 [...] Encounter Status:Clos (more content not included)... Normal [facility] CNPNon 11-13-2023 CNPN Telephone (INTMWS) STEVE VIEIRA ([id number]) 1945 F Date Time Provider Department 11/13/23 [...] this we would fax them to # [phone]. Loan Johnston MA 11/13/2023 3:32 PM Signed Faxed office notes/A1c values with additonal question form ИВАН Suazo Amanda, RN 11/14/2023 9:19 AM Signed Faxed completed signed last OV note from 11/12/23 to [place] Department with [employer] fax # [phone]. Loan Johnston MA 11/17/2023 8:56 AM Signed [...] - Blood-Glucose Meter,Continuous (FREESTYLE PILAR 3 READER) [facility] Use to check blood sugar at [...] subcutaneously one time a week. Gets through [employer] PAP. - levothyroxine (SYNTHROID) 25 mcg tablet [...] Encounter Status:Closed by SHARON MAYER on 11/14/23 [facility] CNOVon 11-12-2023 CNOV Office Visit (INTMWS ) STEVE VIEIRA ([id number]) 1945 F Date Time Provider Department 11/12/23 2:00 PM PETER ELLIS INTMWS During your visit today, we recorded the following information about you: Temperature Pulse Respiration Blood pressure 97.6 degrees 93/minute 18/minute 124/72 Peter Ellis MD 11/14/2023 9:10 AM Signed This note was created using [employer]. Subjective Steve Vieira is a 78 year [...] walking from home to her appointment. Eats [employer] and [employer]. Has cat. States trying to Was at [...] wants her to move where they are ([place] and [place]). Has a friend who lives [place]--prefers to move there. Kids were here after when she was transferred to [facility] then had to go back to their homes. Not sure about her meds but gets from [facility]. [facility]ants [employer] so can check sugars. Feet completely numb--chronic. [...] subcutaneously one time a week. Gets through [employer] PAP. levothyroxine (SYNTHROID) 25 mcg tablet Take 1 tablet by mouth every Friday,Friday, ay. Take on empty stomach. For thyroid. Add to the levothyroxine 50 mcg once daily dosing but just on Fri-Fri-Fri empagliflozin (JARDIANCE) 25 mg tablet Take 1 tablet by mouth daily with breakfast. Gets through [employer] PAP. ferrous sulfate 325 mg (65 mg [...] (L) MC (more content not included)... Normal [facility] CBC W Auto Differential pane l (Bld)on 10-31-2023 Basophils (Bld) [#/Vol] 0.05 10*3/uL [facility] Basophils/100 WBC (Bld) 1.1 % [facility] Differential cell count method Nom (Bld) Auto [facility] Eosinophils (Bld) [#/Vol] 0.33 10*3/uL [facility] Eosinophils/100 WBC (Bld) 7.1 % [facility] Erythrocyte distribution width (RBC) [Ratio] 15.4 % High 11.5 - 15.0 % [facility] Hematocrit (Bld) [Volume fraction] 35.6 % Low 36.0 - 46.0 % [facility] Hemoglobin (Bld) [Mass/Vol] 10.6 g/dL Low 11.5 - 15.5 g/dL [facility] Immature granulocytes (Bld) [#/Vol] [facility] Immature granulocytes/100 WBC (Bld) 0.2 % [facility] Interpretation and review of laboratory results Abnormal [facility] Lymphocytes (Bld) [#/Vol] 1.23 10*3/uL [facility] Lymphocytes/100 WBC (Bld) 26.6 % [facility] MCH (RBC) [Entitic mass] 27.3 pg 26. 0 - 34.0 pg [facility] MCHC (RBC) [Mass/Vol] 29.8 g/dL Low 30.5 - 36.0 g/dL [facility] MCV (RBC) [Entitic vol] 91.8 fL 80.0 - 100.0 fL [facility] Monocytes (Bld) [#/Vol] 0.36 10*3/uL [facility] Monocytes/100 WBC (Bld) 7.8 % [facility] Neutrophils (Bld) [#/Vol] 2.65 10*3/uL [facility] Neutrophils/100 WBC (Bld) 57.2 % [facility] Nucleated RBC (Bld) [#/Vol] [facility] Nucleated RBC/100 WBC (Bld) [Ratio] 0.0 % /100 WBC [facility] Platelet mean volume (Bld) [Entitic vol] 11.8 fL 9.0 - 12.7 fL [facility] Platelets (Bld) [#/Vol] 177 10*3/uL [facility] RBC (Bld) [#/Vol] 3.88 10*6/uL Low 3.90 - 5.2 0 m/uL [facility] WBC (Bld) [#/Vol] 4.63 10*3/uL [facility] Basophils (Bld) [#/Vol] 0.05 10*3/uL Normal <0.11 [facility] Comment on above: Order Comment: Speci men Type: BLOOD SPECIMENOrdering Facility: [facility] Address: [address] [place] [address] Performed By: #### 5 7021-8 ####[facility] LABCLIA [id number] [place] [address] [place] Basophils/100 WBC (Bld) 1.1 % Normal [facility] Comment on above: Order Comment: Speci men Type: BLOOD SPECIMENOrdering Facility: [facility] Address: [address] [place] [address] Performed By: #### 5 7021-8 ####[facility] LABCL[facility] [id number] [place] [address] [place] Differential cell count method Nom (Bld) Auto Normal [facility] Comment on above: Order Comment: Speci men Type: BLOOD SPECIMENOrdering Facility: [facility] Address: [address] [place] [address] Performed By: #### 5 7021-8 ####[facility]CL[facility] [id number] [place] [address] [place] Eosinophils (Bld) [#/Vol] 0.33 10*3/uL Normal <0.46 [facility] Comment on above: Order Comment: Speci men Type: BLOOD SPECIMENOrdering Facility: [facility] Address: [address] [place] [address] Performed By: #### 5 7021-8 ####[facility]CL[facility] [id number] [place] [address] [place] Eosinophils/100 WBC (Bld) 7.1 % Normal [facility] Comment on above: Order Comment: Speci men Type: BLOOD SPECIMENOrdering Facility: [facility] Address: [address] [place] [address] Performed By: #### 5 7021-8 ####[facility]CL[facility] [id number] [place] [address] [place] Erythrocyte distribution width (RBC) [Ratio] 15.4 % High 11.5-15.0 [facility] Comment on above: Order Comment: Speci men Type: BLOOD SPECIMENOrdering Facility: [facility] Address: [address] [place] [address] Performed By: #### 5 7021-8 ####[facility]CL[facility] [id number] [place] [address] [place] Hematocrit (Bld) [Volume fraction] 35.6 % Low 36.0-46.0 [facility] Comment on above: Order Comment: Speci men Type: BLOOD SPECIMENOrdering Facility: [facility] Address: [address] [place] [address] Performed By: #### 5 7021-8 ####[facility] [id number] [place] [address] [place] Hemoglobin (Bld) [Mass/Vol] 10.6 g/dL Low 11.5-15.5 [facility] Comment on above: Order Comment: Speci men Type: BLOOD SPECIMENOrdering Facility: [facility] Address: [address] [place] [address] Performed By: #### 5 7021-8 ####[facility] [id number] [place] [address] [place] Immature granulocytes (Bld) [#/Vol] 10*3/uL Normal <0.10 [facility] Comment on above: Order Comment: Speci men Type: BLOOD SPECIMENOrdering Facility: [facility] Address: [address] [place] [address] Performed By: #### 5 7021-8 ####[facility] [id number] [place] [address] [place] Immature granulocytes/100 WBC (Bld) 0.2 % Normal [facility] Comment on above: Order Comment: Speci men Type: BLOOD SPECIMENOrdering Facility: [facility] Address: [address] [place] [address] Performed By: #### 5 7021-8 ####[facility] [id number] [place] [address] [place] Lymphocytes (Bld) [#/Vol] 1.23 10*3/uL Normal 1.00-4.00 [facility] Comment on above: Order Comment: Speci men Type: BLOOD SPECIMENOrdering Facility: [facility] Address: [address] [place] [address] Performed By: #### 5 7021-8 ####[facility]CL[facility] [id number] [place] [address] [place] Lymphocytes/100 WBC (Bld) 26.6 % Normal [facility] Comment on above: Order Comment: Speci men Type: BLOOD SPECIMENOrdering Facility: [facility] Address: [address] [place] [address] Performed By: #### 5 7021-8 ####[facility]IA [id number] [place] [address] [place] MCH (RBC) [Entitic mass] 27.3 pg Normal 26.0-34.0 [facility] Comment on above: Order Comment: Speci men Type: BLOOD SPECIMENOrdering Facility: [facility] Address: [address] [place] [address] Performed By: #### 5 7021-8 ####[facility] [id number] [place] [address] [place] MCHC (RBC) [Mass/Vol] 29.8 g/dL Low 30.5-36.0 [facility] Comment on above: Order Comment: Speci men Type: BLOOD SPECIMENOrdering Facility: [facility] Address: [address] [place] [address] Performed By: #### 5 7021-8 ####[facility] [id number] [place] [address] [place] MCV (RBC) [Entitic vol] 91.8 fL Normal 80.0-100.0 [facility] Comment on above: Order Comment: Speci men Type: BLOOD SPECIMENOrdering Facility: [facility] Address: [address] [place] [address] Performed By: #### 5 7021-8 ####[facility] [id number] [place] [address] [place] Monocytes (Bld) [#/Vol] 0.36 10*3/uL Normal <0.87 [facility] Comment on above: Order Comment: Speci men Type: BLOOD SPECIMENOrdering Facility: [facility] Address: [address] [place] [address] Performed By: #### 5 7021-8 ####[facility]CL[facility] [id number] [place] [address] [place] Monocytes/100 WBC (Bld) 7.8 % Normal [facility] Comment on above: Order Comment: Speci men Type: BLOOD SPECIMENOrdering Facility: [facility] Address: [address] [place] [address] Performed By: #### 5 7021-8 ####[facility]CL[facility] [id number] [place] [address] [place] Neutrophils (Bld) [#/Vol] 2.65 10*3/uL Normal 1.45-7.50 [facility] Comment on above: Order Comment: Speci men Type: BLOOD SPECIMENOrdering Facility: [facility] Address: [address] [place] [address] Performed By: #### 5 7021-8 ####[facility] [id number] [place] [address] [place] Neutrophils/100 WBC (Bld) 57.2 % Normal [facility] Comment on above: Order Comment: Speci men Type: BLOOD SPECIMENOrdering Facility: [facility] Address: [address] [place] [address] Performed By: #### 5 7021-8 ####[facility]CL[facility] [id number] [place] [address] [place] Nucleated RBC (Bld) [#/Vol] 10*3/uL Normal <0.01 [facility] Comment on above: Order Comment: Speci men Type: BLOOD SPECIMENOrdering Facility: [facility] Address: [address] [place] [address] Performed By: #### 5 7021-8 ####[facility] [id number] [place] [address] [place] Nucleated RBC/100 WBC (Bld) [Ratio] 0.0 /100 WBC Normal [facility] Comment on above: Order Comment: Speci men Type: BLOOD SPECIMENOrdering Facility: [facility] Address: [address] [place] [address] Performed By: #### 5 7021-8 ####[facility] [id number] [place] [address] [place] Platelet mean volume (Bld) [Entitic vol] 11.8 fL Normal 9.0-12.7 [facility] Comment on above: Order Comment: Speci men Type: BLOOD SPECIMENOrdering Facility: [facility] Address: [address] [place] [address] Performed By: #### 5 7021-8 ####[facility] [id number] [place] [address] [place] Platelets (Bld) [#/Vol] 177 10*3/uL Normal 150-400 [facility] Comment on above: Order Comment: Speci men Type: BLOOD SPECIMENOrdering Facility: [facility] Address: [address] [place] [address] Performed By: #### 5 7021-8 ####[facility] [id number] [place] [address] [place] RBC (Bld) [#/Vol] 3.88 10*6/uL Low 3.90-5.20 [facility] Comment on above: Order Comment: Speci men Type: BLOOD SPECIMENOrdering Facility: [facility] Address: [address] [place] [address] Performed By: #### 5 7021-8 ####[facility] [id number] [place] [address] [place] WBC (Bld) [#/Vol] 4.63 10*3/uL Normal 3.70-11.00 [facility] Comment on above: Order Comment: Speci men Type: BLOOD SPECIMENOrdering Facility: [facility] Address: [address] [place] [address] Performed By: #### 5 7021-8 ####[facility] [id number] [id number] [facility] CNPNon 10-31-2023 CNPN Telephone (INTMWS) STEVE VIEIRA ([id number]) 1945 F Date Time Provider Department 10/31/23 PETER ELLIS INTMWS During your visit today, we recorded the following information about you: Roula Woodall LPN 10/31/2023 11:08 AM Signed Patient here to have labs drawn for OV with PCP on 11/12/23. Waiting down front and can call [facility] at ext [phone] to update pt. Last OV 08/25/23 with labs done then. ROSELIA Márquez Rosa, APRN.[employer] TECHNICIAN 10/31/2023 11:20 AM Signed Please let lab [...] BLOOD COUNT AND DIFFERENTIAL [SQCBCDIF] Order #: [id number] FUTURE COMPREHENSIVE METABOLIC PANEL [SQCMP] Order #: [id number] FUTURE THYROID STIMULATING HORMONE [SQTSH] Order #: [id number] FUTURE T3, FREE [SQFREET3] Order #: [id number] FUTURE T4 FREE/FREE THYROXINE [SQFT4] Order #: [id number] FUTURE IRON AND TIBC [SQIRON] Order #: [id number] FUTURE FERRITIN [SQFERR] Order #: [id number] FUTURE HEMOGLOBIN A1C [YGZVY1X] Order #: [id number] FUTURE Prescriptions as of 10/31/2023 - metFORMIN [...] subcutaneously one time a week. Gets through [employer] P[employer]. - levothyroxine (SYNTHROID) 25 mcg tablet [...] Status:Closed by LORAINE JOHNSON on 10/31/23 Normal [facility] Comprehensive metabolic 2000 panelon 10-31-2023 Albumin [Mass/Vol] 4.3 g/dL Normal 3.9-4.9 [facility] Comment on above: Order Comment: Speci men Type: BLOOD SPECIMENOrdering Facility: [facility] Address: [address] [place] [address] Performed By: #### 2 4323-8, 61530-8, 3051-0, 3024-7 ####[facility] [id number] [place] [address] [place] ALP [Catalytic activity/Vol] 226 U/L High 34-123 [facility] Comment on above: Order Comment: Speci men Type: BLOOD SPECIMENOrdering Facility: [facility] Address: [address] [place] [address] Performed By: #### 2 4323-8, 36486-2, 3051-0, 3024-7 ####[facility] [id number] [place] [address] [place] ALT [Catalytic activity/Vol] 66 U/L High 7-38 [facility] Comment on above: Order Comment: Speci men Type: BLOOD SPECIMENOrdering Facility: [facility] Address: [address] [place] [address] Performed By: #### 2 4323-8, 47398-8, 3051-0, 3024-7 ####[facility] [id number] [place] [address] [place] Anion gap [Moles/Vol] 13 mmol/L Normal 9-18 [facility] Comment on above: Order Comment: Speci men Type: BLOOD SPECIMENOrdering Facility: [facility] Address: [address] [place] [address] Performed By: #### 2 4323-8, 60578-5, 3051-0, 302-7 ####[facility] [id number] [place] [address] [place] AST [Catalytic activity/Vol] 76 U/L High 13-35 [facility] Comment on above: Order Comment: Speci men Type: BLOOD SPECIMENOrdering Facility: [facility] Address: [address] [place] [address] Performed By: #### 2 4323-8, 16353-9, 3051-0, 3024-7 ####[facility] LABCL[facility] [id number] [place] [id number] [place] Bilirubin [Mass/Vol] 0.5 mg/dL Normal 0.2-1.3 [facility] Comment on above: Order Comment: Speci men Type: BLOOD SPECIMENOrdering Facility: [facility] Address: [address] [place] [address] Performed By: #### 2 4323-8, 56515-9, 3051-0, 3024-7 ####[facility] [id number] [place] [address] [place] Calcium [Mass/Vol] 10.1 mg/dL Normal 8.5-10.2 [facility] Comment on above: Order Comment: Speci men Type: BLOOD SPECIMENOrdering Facility: [facility] Address: [address] [place] [address] Performed By: #### 2 4323-8, 72795-2, 3051-0, 3024-7 ####[facility] [id number] [place] [address] [place] Chloride [Moles/Vol] 101 mmol/L Normal 97-105 [facility] Comment on above: Order Comment: Speci men Type: BLOOD SPECIMENOrdering Facility: [facility] Address: [address] [place] [address] Performed By: #### 2 4323-8, 49928-3, 3051-0, 3024-7 ####[facility] [id number] [place] [address] [place] CO2 [Moles/Vol] 21 mmol/L Low 22-30 [facility] Comment on above: Order Comment: Speci men Type: BLOOD SPECIMENOrdering Facility: [facility] Address: [address] [place] [address] Performed By: #### 2 4323-8, 19453-6, 3051-0, 3024-7 ####[facility] [id number] [place] [address] [place] Creatinine [Mass/Vol] 0.60 mg/dL Normal 0.58-0.96 [facility] Comment on above: Order Comment: Sudhakar mera Type: BLOOD SPECIMENOrdering Facility: [facility] Address: [address] [place] [address] Performed By: #### 2 4323-8, 41522-2, 3051-0, 3024-7 ####[facility] [id number] [address] [place] Creatinine and Glomerular filtration rate.predicted panel (S/P/Bld) 91 mL/min/1.73m??? Normal >=60 [facility] Comment on above: Order Comment: Sudhakar mera Type: BLOOD SPECIMENOrdering Facility: [facility] Address: [address] [place] [address] Result Comment: Audra mated Glomerular Filtration Rate [...] actual GFR. Performed By: #### 2 4323-8, 98847-8, 3051-0, 3024-7 ####[facility] [id number] [place] [id number] [place] Glucose [Mass/Vol] 479 mg/dL High 74-99 [facility] Comment on above: Order Comment: Sudhakar mera Type: BLOOD SPECIMENOrdering Facility: [facility] Address: [address] [place] [address] Result Comment: The [place] Diabetes Association (ADA) provides guidance for cutoff [...] Standards of Medical Care in Diabetes 2016, [place] [employer]. Diabetes Care. 2016.39(Suppl 1). Performed By: #### 2 4323-8, 77213-7, 3051-0, 302-7 ####[facility] [id number] [place] [address] [place] Potassium [Moles/Vol] 5.1 mmol/L Normal 3.7-5.1 [facility] Comment on above: Order Comment: Speci men Type: BLOOD SPECIMENOrdering Facility: [facility] Address: [address] [place] [address] Performed By: #### 2 4323-8, 53572-4, 305-0, 7 ####[facility] [id number] [place] [address] [place] Protein [Mass/Vol] 7.2 g/dL Normal 6.3-8.0 [facility] Comment on above: Order Comment: Dennyi men Type: BLOOD SPECIMENOrdering Facility: [facility] Address: [address] [place] [address] Performed By: #### 2 4323-8, 15171-2, 305-0, 3027 ####[facility] [id number] [place] [address] [place] Sodium [Moles/Vol] 135 mmol/L Low 136-144 [facility] Comment on above: Order Comment: Speci men Type: BLOOD SPECIMENOrdering Facility: [facility] Address: [address] [place] [address] Performed By: #### 2 4323-8, 14102-6, 3051-0, 3024-7 ####[facility] [id number] [place] [address] [place] Urea nitrogen [Mass/Vol] 24 mg/dL High 7-21 [facility] Comment on above: Order Comment: Speci men Type: BLOOD SPECIMENOrdering Facility: [facility] Address: [address] [place] [address] Performed By: #### 2 4323-8, 59691-0, 3051-0, 3024-7 ####[facility] [id number] [place] [address] [place] Ferritin SerPl-mCncon 2023 Ferritin [Mass/Vol] 33.4 ng/mL Normal 14.7-205.1 [facility] Comment on above: Order Comment: Speci men Type: BLOOD SPECIMENOrdering Facility: [facility] Address: [address] [place] [address] Performed By: #### 2 276-4, 3016-3 ####[facility] [id number] [place] [address] [place] HbA1c (Bld)on 10-31-2023 Average glucose Estimated from glycated hemoglobin (Bld) [Mass/Vol] 278 mg/dL Normal [facility] Comment on above: Order Comment: Speci men Type: BLOOD SPECIMENOrdering Facility: [facility] Address: [address] [place] [address] Result Comment: eAG: (Estimated average glucose) is a calculated value from HgbA1c and is claims service representative of the average blood glucose level in the last 2-3 month period. Performed By: #### 5 5454-3 ####[facility] [id number] [place] [address] [place] HbA1c (Bld) [Mass fraction] 11.3 % High 4.3-5.6 [facility] Comment on above: Order Comment: Speci men Type: BLOOD SPECIMENOrdering Facility: [facility] Address: [address] [place] [address] Result Comment: [place] Diabetes Association guidelines indicate that patients with HgbA1c in the range 5.7-6.4% are at increased risk for development of diabetes, and intervention by lifestyle modification may be beneficial. HgbA1c greater or equal to 6.5% is considered diagnostic of diabetes. Performed By: #### 5 5454-3 ####[facility] [id number] [place] [address] [place] Iron and Iron binding capaci ty panelon 10-31-2023 Iron [Mass/Vol] 51 ug/dL Normal 41-186 [facility] Comment on above: Order Comment: Speci men Type: BLOOD SPECIMENOrdering Facility: [facility] Address: [address] [place] [address] Performed By: #### 2 4323-8, 19718-1, 3051-0, 3024-7 ####[facility] [id number] [place] [id number] [place] Iron binding capacity [Mass/Vol] 454 ug/dL High 232-386 [facility] Comment on above: Order Comment: Speci men Type: BLOOD SPECIMENOrdering Facility: [facility] Address: [address] [place] [address] Performed By: #### 2 4323-8, 31207-8, 3051-0, 3024-7 ####[facility] [id number] [place] [id number] [place] Iron/TIBC [Molar ratio] 11.2 % Low 15.0-57.0 [facility] Comment on above: Order Comment: Speci men Type: BLOOD SPECIMENOrdering Facility: [facility] Address: [address] [place] [address] Performed By: #### 2 4323-8, 39654-5, 3051-0, 3024-7 ####[facility] [id number] [place] [address] [place] T3Free SerPl-mCncon 10-31-19 24 Free T3 [Mass/Vol] 2.3 pg/mL Normal 2.3-4.1 [facility] Comment on above: Order Comment: Speci men Type: BLOOD SPECIMENOrdering Facility: [facility] Address: [address] [place] [address] Performed By: #### 2 4323-8, 17080-6, 3051-0, 3024-7 ####[facility] [id number] [place] [address] [place] T4 Free SerPl-mCncon 024 Free T4 [Mass/Vol] 1.1 ng/dL Normal 0.9-1.7 [facility] Comment on above: Order Comment: Speci men Type: BLOOD SPECIMENOrdering Facility: [facility] Address: [address] [place] [address] Performed By: #### 2 4323-8, 69319-9, 3051-0, 302-7 ####[facility] [id number] [place] [address] [place] TSH SerPl-aCncon 10-31-2023 TSH Qn 3.250 m[IU]/L Normal 0.270-4.200 [facility] Comment on above: Order Comment: Speci men Type: BLOOD SPECIMENOrdering Facility: [facility] Address: [address] [place] [address] Performed By: #### 2 276-4, 3016-3 ####[facility] [id number] [place] [address] [place] CNPeJnna 08-27-2023 CNPN Telephone (INTWS) STEVE VIEIRA ([id number]) 1945 F Date Time Provider Department 08/27/23 [...] may prefer to have this done at [facility] since transportation is an issue. Please see where she would like to do this and if preference is [facility] then fax order. Thanks. Augusto Ross Ma 08/27/2023 12:34 PM Signed Left message to call office. 08/27/2023 12:34 PM Gema Spain Ma 09/01/2023 10:22 AM Signed Both pt and her son notified. Order for US faxed to [facility]. They will call to schedule. Pt need refill on Trulicity. Gema Vuong Ma, Ma 09/01/2023 10:23 AM Signed Addended by: GEMA SPAIN MA on: 09/01/2023 10:23 AM Modules accepted: Orders Orin Sosa APRN.TREE AND SHRUB TECHNICIAN 09/01/2023 10:52 AM Signed Addended by: ORIN [...] (HCC) [E11.9] Order(s):US ABD RIGHT UPPER QUADRANT [[id number]] Order #: [id number] FUTURE dulaglutide (TRULICITY) 3 mg/0.5 mL pen injectorInject 3 mg subcutaneously one time a week. Gets through [employer] PAP.Disp: 4 EachRfl: 3 Prescriptions as of 09/01/2023 - dulaglutide (TRULICITY) 3 mg/0.5 mL pen injector Inject 3 mg subcutaneously one time a week. Gets through [employer] PAP. - levothyroxine (SYNTHROID) 25 mcg tablet [...] by mouth daily with breakfast. Gets through [employer] PAP. - ferrous sulfate 325 mg (65 [...] insulin lispr (more content not included)... Normal [facility] 25(OH)D3 [facility] 25-hydroxyvitamin D3 [Mass/Vol] 24.4 ng/mL Low 31.0-80.0 [facility] Comment on above: Order Comment: Speci men Type: BLOOD SPECIMENOrdering Facility: [facility] Address: [address] [place] [address] Result Comment: Clas sification of 25 OH Vitamin D status: Deficiency/Insufficiency: < or = 30 ng/ml. Sufficiency/Optimal Levels: 31-80 ng/mL Toxicity: > 100 ng/mL. Test performed by chemiluminescent immunoassay. Performed By: #### 1 989-3 ####[facility] [id number] [place] [address] [place] CBC W Auto Differential pane l (Bld)on 08-25-2023 Basophils (Bld) [#/Vol] 0.04 10*3/uL Normal <0.11 [facility] Comment on above: Order Comment: Speci men Type: BLOOD SPECIMEN [facility] Address: [address] [place] [address] Performed By: #### 1 989-3 #### [facility] CLIA [id number] [address] [place] [address] [place] Basophils/100 WBC (Bld) 0.7 % Normal [facility] Comment on above: Order Comment: Speci men Type: BLOOD SPECIMEN [facility] Address: [address] [place] [address] Performed By: #### 1 989-3 #### [facility] CLIA [id number] [address] [place] [address] [place] Differential cell count method Nom (Bld) Auto Normal [facility] Comment on above: Order Comment: Speci men Type: BLOOD SPECIMEN [facility] Address: [address] [place] [address] Performed By: #### 1 989-3 #### [facility] CLIA [id number] [address] [place] [address] [place] Eosinophils (Bld) [#/Vol] 0.09 10*3/uL Normal <0.46 [facility] Comment on above: Order Comment: Speci men Type: BLOOD SPECIMEN [facility] Address: [address] [place] [address] Performed By: #### 1 989-3 #### [facility] CLIA [id number] [address] [place] [address] [place] Eosinophils/100 WBC (Bld) 1.7 % Normal [facility] Comment on above: Order Comment: Speci men Type: BLOOD SPECIMEN [facility] Address: [address] [place] [address] Performed By: #### 1 989-3 #### [facility] CLIA [id number] [address] [place] [address] [place] Erythrocyte distribution width (RBC) [Ratio] 20.3 % High 11.5-15.0 [facility] Comment on above: Order Comment: Speci men Type: BLOOD SPECIMEN [facility] Address: [address] [place] [address] Performed By: #### 1 989-3 #### [facility] CLIA [id number] [address] [place] [address] [place] Hematocrit (Bld) [Volume fraction] 36.0 % Normal 36.0-46.0 [facility] Comment on above: Order Comment: Speci men Type: BLOOD SPECIMEN [facility] Address: [address] [place] [address] Performed By: #### 1 989-3 #### [facility] CLIA [id number] [address] [place] [address] [place] Hemoglobin (Bld) [Mass/Vol] 10.4 g/dL Low 11.5-15.5 [facility] Comment on above: Order Comment: Speci men Type: BLOOD SPECIMEN [facility] Address: [address] [place] [address] Performed By: #### 1 989-3 #### [facility] CLIA [id number] [address] [place] [address] [place] Immature granulocytes (Bld) [#/Vol] 0.04 10*3/uL Normal <0.10 [facility] Comment on above: Order Comment: Speci men Type: BLOOD SPECIMEN [facility] Address: [address] [place] [address] Performed By: #### 1 989-3 #### [facility] CLIA [id number] [address] [place] [address] [place] Immature granulocytes/100 WBC (Bld) 0.7 % Normal [facility] Comment on above: Order Comment: Speci men Type: BLOOD SPECIMEN [facility] Address: [address] [place] [address] Performed By: #### 1 989-3 #### [facility] CLIA [id number] [address] [place] [address] [place] Lymphocytes (Bld) [#/Vol] 1.20 10*3/uL Normal 1.00-4.00 [facility] Comment on above: Order Comment: Speci men Type: BLOOD SPECIMEN [facility] Address: [address] [place] [address] Performed By: #### 1 989-3 #### [facility] CLIA [id number] [address] [place] [address] [place] Lymphocytes/100 WBC (Bld) 22.4 % Normal [facility] Comment on above: Order Comment: Speci men Type: BLOOD SPECIMEN [facility] Address: [address] [place] [address] Performed By: #### 1 989-3 #### [facility] CLIA [id number] [address] [place] [address] [place] MCH (RBC) [Entitic mass] 25.7 pg Low 26.0-34.0 [facility] Comment on above: Order Comment: Speci men Type: BLOOD SPECIMEN [facility] Address: [address] [place] [address] Performed By: #### 1 989-3 #### [facility] CLIA [id number] [address] [place] [address] [place] MCHC (RBC) [Mass/Vol] 28.9 g/dL Low 30.5-36.0 [facility] Comment on above: Order Comment: Speci men Type: BLOOD SPECIMEN [facility] Address: [address] [place] [address] Performed By: #### 1 989-3 #### [facility] CLIA [id number] [address] [place] [address] [place] MCV (RBC) [Entitic vol] 89.1 fL Normal 80.0-100.0 [facility] Comment on above: Order Comment: Speci men Type: BLOOD SPECIMEN [facility] Address: [address] [place] [address] Performed By: #### 1 989-3 #### [facility] CLIA [id number] [facility] [place] [address] [place] Monocytes (Bld) [#/Vol] 0.34 10*3/uL Normal <0.87 [facility] Comment on above: Order Comment: Speci men Type: BLOOD SPECIMEN [facility] Address: [address] [place] [address] Performed By: #### 1 989-3 #### [facility] CLIA [id number] [address] [place] [address] [place] Monocytes/100 WBC (Bld) 6.4 % Normal [facility] Comment on above: Order Comment: Speci men Type: BLOOD SPECIMEN [facility] Address: [address] [place] [address] Performed By: #### 1 989-3 #### [facility] CLIA [id number] [address] [place] [address] [place] Neutrophils (Bld) [#/Vol] 3.64 10*3/uL Normal 1.45-7.50 [facility] Comment on above: Order Comment: Speci men Type: BLOOD SPECIMEN [facility] Address: [address] [place] [address] Performed By: #### 1 989-3 #### [facility] CLIA [id number] [address] [place] [address] [place] Neutrophils/100 WBC (Bld) 68.1 % Normal [facility] Comment on above: Order Comment: Speci men Type: BLOOD SPECIMEN [facility] Address: [address] [place] [address] Performed By: #### 1 989-3 #### [facility] CLIA [id number] [address] [place] [address] [place] Nucleated RBC (Bld) [#/Vol] 10*3/uL Normal <0.01 [facility] Comment on above: Order Comment: Speci men Type: BLOOD SPECIMEN [facility] Address: [address] [place] [address] Performed By: #### 1 989-3 #### [facility] CLIA [id number] [address] [place] [address] [place] Nucleated RBC/100 WBC (Bld) [Ratio] 0.0 /100 WBC Normal [facility] Comment on above: Order Comment: Speci men Type: BLOOD SPECIMEN [facility] Address: [address] [place] [address] Performed By: #### 1 989-3 #### [facility] CLIA [id number] [address] [place] [address] [place] Platelet mean volume (Bld) [Entitic vol] 11.1 fL Normal 9.0-12.7 [facility] Comment on above: Order Comment: Speci men Type: BLOOD SPECIMEN [facility] Address: [address] [place] [address] Performed By: #### 1 989-3 #### [facility] CLIA [id number] [address] [place] [address] [place] Platelets (Bld) [#/Vol] 247 10*3/uL Normal 150-400 [facility] Comment on above: Order Comment: Speci men Type: BLOOD SPECIMEN [facility] Address: [address] [place] [address] Performed By: #### 1 989-3 #### [facility] CLIA [id number] [address] [place] [address] [place] RBC (Bld) [#/Vol] 4.04 10*6/uL Normal 3.90-5.20 [facility] Comment on above: Order Comment: Speci men Type: BLOOD SPECIMEN [facility] Address: [address] [place] [address] Performed By: #### 1 989-3 #### [facility] CLIA [id number] [address] [place] [address] [place] WBC (Bld) [#/Vol] 5.35 10*3/uL Normal 3.70-11.00 [facility] Comment on above: Order Comment: Speci men Type: BLOOD SPECIMEN [facility] Address: [address] [place] [address] Performed By: #### 1 989-3 #### [facility] CLIA [id number] [address] [place] [address] [place] CNOVon 08-25-2023 CNOV Office Visit (INTMWS ) STEVE VIEIRA ([id number]) 1945 F Date Time Provider Department 08/25/23 11:40 AM ORIN SOSA During your visit today, we recorded the following information about you: Pulse Respiration Blood pressure Weight 97/minute 16/minute 101/65 60.3 kg Orin Sosa APRN.[employer]REE [employer] TECHNICIAN 08/25/2023 12:56 PM Signed SUBJECTIVE Steve Vieira is a 78 year old female here today for a check up on her medical problems. Chief Complaint Patient presents with: [facility] ER follow up - UTI HPI Steve Vieira is a 78 year old female. She is an established patient of Petre Ellis MD. Here today for follow up, she is a poor historian. Recently seen at [facility] on 08/15, records viewed in care everywhere and found she was admitted 08/15 with discharge 08/16 or 08/17. Diagnosis of dehydration, weakness, hyperglycemia, acute UTI and failure to thrive. There is concerns of her living by herself currently and needing to change her current living situation to promote safety. She was discharged to a SNF ([facility]) 08/16 and unclear when she was discharged [...] the SNF. She did have HHC with [facility], SW is involved. APS did come out [...] by mouth daily with breakfast. Gets through [employer] PAP. ferrous sulfate 325 mg (65 [...] less dar (more content not included)... Normal [facility] CNPNon 08-25-2023 CNPN Telephone (NAVWST) STEVE VIEIRA ([id number]) 1945 F Date Time Provider Department 08/25/23 SHERWIN CHE During your visit today, we recorded the following information about you: Sherwin Che, OSITO 08/25/2023 1:20 PM Signed [facility] has made 2 crisis visits. Does not have a single support person in the [facility]. Dog had been removed from patient care, due to living conditions. Walks everywhere she needs to go. Does not drive. TREVA Wang Brooke notes was there at the same time. TREVA Wang was there and provided patient with meals. Patient told Lesli Dong that she did not like those meals. Wanted Pili Ledbetter. Letitia notes that she has now discharged patient from their [facility] services. Lesli Dong also notes that they are not allowed to accept patient back. LESLI Dong notes son Salomón Lott-Lives in [place] ph. [phone]. Sherwin Che, OSITO 08/25/2023 1:32 PM Signed [...] address this for further assistance. Orin Sosa APRN.TREE AND SHRUB TECHNICIAN 08/25/2023 2:02 PM Signed I don't mind completing an expert eval statement but I would like to talk with her son first to discuss the situation with him. I will reach out to her son this afternoon. Orin Sosa APRN.TREE AND SHRUB TECHNICIAN 08/25/2023 4:01 PM Signed I called and spoke with patient's son Salomón, we discussed the concerns from her visit today. He voiced agreement that she should not be living on her own. He stated that no POA paperwork has been done because the patient did not want to do the paperwork when he was visiting last summer from [place]. At this point we did agree that [...] Lesli located statement of expert evaluation on [facility] website. Lesli will check with [employer]PS and see if [employer] is able to complete evaluation or if Dr. Ellis needs to complete. Sherwin Che, SAILING INSTRUCTOR 08/26/2023 10:21 AM Signed Lesli spoke with TREVA Wang and she notes that [employer]'s are not able to complete expert evaluation forms for guardianship. Those have to be completed by MD's. Lesli will see what Dr. Ellis has to say about completing expert evaluation form. Sherwin Che, SAILING INSTRUCTOR 08/27/2023 11:04 AM Signed Lesli placed Statement of Expert Evaluation forms on [facility] desk to complete with Dr. Ellis. Orin Sosa APRN.TREE AND SHRUB TECHNICIAN 08/29/2023 2:44 PM Signed Sherwin, we have completed this, do you plan to reach back out to [facility]PS or do I need to contact them? Sherwin Che, SAILING INSTRUCTOR 08/29/2023 3:05 PM Signed You could call TREVA Wang ph. [phone] and let her know you have completed and where she would like you to send forms. That way if she has any questions in regards to forms, you would be able to answer them. Orin Sosa APRN.TREE AND SHRUB TECHNICIAN 08/29/2023 3:35 PM Signed Called and spoke with Felipe with [employer] to update, we are sending a copy of the expert evaluation via fax today (send to [phone]) and via mail. Discussed that son, Salomón, is willing to assume guardianship and she will include that with the application for guardianship. Sherwin Che, [facility] 08/29/2023 4:28 PM Signed Is there anything further you would like Sw to assist with regarding this note, or can we close note? Orin Sosa APRN.TREE AND SHRUB TECHNICIAN 08/29/2023 4:30 PM Signed I will close [...] for Visit: Patient Update [1234] Patient Question [0287] Prescriptions as of 08/29/2023 - levothyroxine (SYNTHROID) 25 mcg tablet Take 1 tablet by mouth every Friday,Friday, ay. Take on empty stomach. For thyroid. Add to the levothyroxine 50 mcg once daily dosing but j (more content not included)... Normal [facility] metabolic 2000 panelon 08-25-2023 Albumin [Mass/Vol] 4.0 g/dL Normal 3.9-4.9 [facility] Comment on above: Order Comment: Speci men Type: BLOOD SPECIMENOrdering Facility: [facility] Address: [address] [place] [address] Performed By: #### 3 051-0, 3024-7, 64371-2, 30505-0 ####[facility] [id number] [place] [address] [place] ALP [Catalytic activity/Vol] 334 U/L High 34-123 [facility] Comment on above: Order Comment: Speci men Type: BLOOD SPECIMENOrdering Facility: [facility] Address: [address] [place] [address] Performed By: #### 3 051-0, 3024-7, 18962-0, 74662-4 ####[facility] [id number] [place] [address] [place] ALT [Catalytic activity/Vol] 68 U/L High 7-38 [facility] Comment on above: Order Comment: Speci men Type: BLOOD SPECIMENOrdering Facility: [facility] Address: [address] [place] [address] Performed By: #### 3 051-0, 3024-7, 44884-5, 46231-1 ####[facility] [id number] [place] [address] [place] Anion gap [Moles/Vol] 12 mmol/L Normal 9-18 [facility] Comment on above: Order Comment: Speci men Type: BLOOD SPECIMENOrdering Facility: [facility] Address: [address] [place] [address] Performed By: #### 3 051-0, 3024-7, 25300-1, 35732-6 ####[facility] [id number] [place] [address] [place] AST [Catalytic activity/Vol] 100 U/L High 13-35 [facility] Comment on above: Order Comment: Speci men Type: BLOOD SPECIMENOrdering Facility: [facility] Address: [address] [place] [address] Performed By: #### 3 051-0, 3024-7, 06387-0, 10913-3 ####[facility] LABCLIA [id number] [place] [address] [place] Bilirubin [Mass/Vol] 0.6 mg/dL Normal 0.2-1.3 [facility] Comment on above: Order Comment: Speci men Type: BLOOD SPECIMENOrdering Facility: [facility] Address: [address] [place] [address] Performed By: #### 3 051-0, 3024-7, 22258-9, 73709-6 ####[facility] LABIA [id number] [place] [address] [place] Calcium [Mass/Vol] 10.0 mg/dL Normal 8.5-10.2 [facility] Comment on above: Order Comment: Speci men Type: BLOOD SPECIMENOrdering Facility: [facility] Address: [address] [place] [address] Performed By: #### 3 051-0, 3024-7, 65935-3, 02758-5 ####[facility] LABCLIA [id number] [place] [address] [place] Chloride [Moles/Vol] 100 mmol/L Normal 97-105 [facility] Comment on above: Order Comment: Speci men Type: BLOOD SPECIMENOrdering Facility: [facility] Address: [address] [place] [address] Performed By: #### 3 051-0, 3024-7, 80398-4, 12204-7 ####[facility] LABCLIA [id number] [place] [address] [place] CO2 [Moles/Vol] 23 mmol/L Normal 22-30 [facility] Comment on above: Order Comment: Speci samaria Type: BLOOD SPECIMENOrdering Facility: [facility] Address: [address] [place] [address] Performed By: #### 3 051-0, 3024-7, 56436-6, 13167-6 ####[facility] LABCLIA [id number] [place] [address] [place] Creatinine [Mass/Vol] 0.59 mg/dL Normal 0.58-0.96 [facility] Comment on above: Order Comment: Speci men Type: BLOOD SPECIMENOrdering Facility: [facility] Address: [address] [place] [address] Performed By: #### 3 051-0, 3024-7, 65240-2, 98283-6 ####[facility] LABIA [id number] [place] [address] [place] Creatinine and Glomerular filtration rate.predicted panel (S/P/Bld) 91 mL/min/1.73m??? Normal >=60 [facility] Comment on above: Order Comment: Sudhakar mera Type: BLOOD SPECIMENOrdering Facility: [facility] Address: [address] [place] [address] Result Comment: Audra mated Glomerular Filtration Rate [...] GFR. Performed By: #### 3 051-0, 3024-7, 49571-7, 13238-9 ####[facility] LABCLIA [id number] [place] [id number] [place] Glucose [Mass/Vol] 312 mg/dL High 74-99 [facility] Comment on above: Order Comment: Speci men Type: BLOOD SPECIMENOrdering Facility: [facility] Address: [address] [place] [address] Result Comment: The [place] Diabetes Association (ADA) provides guidance for cutoff [...] Standards of Medical Care in Diabetes 2016, [place] [employer] Association. Diabetes Care. 2016.39(Suppl 1). Performed By: #### 3 051-0, 3024-7, 77169-3, 17324-1 ####[facility] LABIA [id number] [place] [address] [place] Potassium [Moles/Vol] 5.1 mmol/L Normal 3.7-5.1 [facility] Comment on above: Order Comment: Sudhakar mera Type: BLOOD SPECIMENOrdering Facility: [facility] Address: [address] [place] [address] Performed By: #### 3 051-0, 3024-7, 41103-7, 27058-4 ####[facility] LABIA [id number] [place] [address] [place] Protein [Mass/Vol] 7.3 g/dL Normal 6.3-8.0 [facility] Comment on above: Order Comment: Sudhakar mera Type: BLOOD SPECIMENOrdering Facility: [facility] Address: [address] [place] [address] Performed By: #### 3 051-0, 3024-7, 09753-2, 52288-4 ####[facility] LABCLIA [id number] [place] [address] [place] Sodium [Moles/Vol] 135 mmol/L Low 136-144 [facility] Comment on above: Order Comment: Dennyi men Type: BLOOD SPECIMENOrdering Facility: [facility] Address: [address] [place] [address] Performed By: #### 3 051-0, 3024-7, 93389-1, 76561-0 ####[facility] LABCLIA [id number] [place] [address] [place] Urea nitrogen [Mass/Vol] 23 mg/dL High 7-21 [facility] Comment on above: Order Comment: Dennyi men Type: BLOOD SPECIMENOrdering Facility: [facility] Address: [address] [place] [address] Performed By: #### 3 051-0, 3024-7, 76806-4, 39673-1 ####[facility] LABIA [id number] [place] [address] [place] HbA1c (Bld)on 08-25-2023 Average glucose Estimated from glycated hemoglobin (Bld) [Mass/Vol] 266 mg/dL Normal [facility] Comment on above: Order Comment: Sudhakar mera Type: BLOOD SPECIMENOrdering Facility: [facility] Address: [address] [place] [address] Result Comment: eAG: (Estimated average glucose) is a calculated value from HgbA1c and is claims service representative of the average blood glucose level in the last 2-3 month period. Performed By: #### 5 5454-3 ####[facility] LABCLIA [id number] [place] [address] [place] HbA1c (Bld) [Mass fraction] 10.9 % High 4.3-5.6 [facility] Comment on above: Order Comment: Sudhakar mera Type: BLOOD SPECIMENOrdering Facility: [facility] Address: [address] [place] [address] Result Comment: [place] Diabetes Association guidelines indicate that patients with HgbA1c in the range 5.7-6.4% are at increased risk for development of diabetes, and intervention by lifestyle modification may be beneficial. HgbA1c greater or equal to 6.5% is considered diagnostic of diabetes. Performed By: #### 5 5454-3 ####[facility] LABCLIA [id number] [place] [id number] [place] Iron and Iron binding capaci ty panelon 08-25-2023 Iron [Mass/Vol] 118 ug/dL Normal 41-186 [facility] Comment on above: Order Comment: Speci men Type: BLOOD SPECIMENOrdering Facility: [facility] Address: [address] [place] [address] Performed By: #### 3 051-0, 3024-7, 82115-1, 10385-0 ####[facility] [id number] [place] [address] [place] Iron binding capacity [Mass/Vol] 427 ug/dL High 232-386 [facility] Comment on above: Order Comment: Speci men Type: BLOOD SPECIMENOrdering Facility: [facility] Address: [address] [place] [address] Performed By: #### 3 051-0, 3024-7, 20272-1, 15152-2 ####[facility] LABIA [id number] [place] [address] [place] Iron/TIBC [Molar ratio] 27.6 % Normal 15.0-57.0 [facility] Comment on above: Order Comment: Speci men Type: BLOOD SPECIMENOrdering Facility: [facility] Address: [facility] [place] [address] Performed By: #### 3 051-0, 302-7, 75973-1, 95380-8 ####[facility] LABIA [id number] [place] [id number] [place] Magnesium SerPl-mCncon 08-25 Magnesium [Mass/Vol] 2.1 mg/dL Normal 1.7-2.3 [facility] Comment on above: Order Comment: Speci men Type: BLOOD SPECIMENOrdering Facility: [facility] Address: [address] [place] [address] Performed By: #### 2 132-9, 3015-3, ####[facility] LABCLIA [id number] [place] [address] [place] T3Free SerPl-mCncon 08-25-19 24 Free T3 [Mass/Vol] 2.7 pg/mL Normal 2.3-4.1 [facility] Comment on above: Order Comment: Speci men Type: BLOOD SPECIMENOrdering Facility: [facility] Address: [address] [place] [address] Performed By: #### 3 051-0, 3024-7, 52621-6, 23472-3 ####[facility] LABCLIA [id number] [place] [address] [place] T4 Free SerPl-mCncon 024 Free T4 [Mass/Vol] 1.1 ng/dL Normal 0.9-1.7 [facility] Comment on above: Order Comment: Speci men Type: BLOOD SPECIMENOrdering Facility: [facility] Address: [address] [place] [address] Performed By: #### 3 051-0, 3024-7, 24958-3, 23692-9 ####[facility] LABCLIA [id number] [place] [address] [place] TSH SerPl-aCncon 08-25-2023 TSH Qn 4.540 m[IU]/L High 0.270-4.200 [facility] Comment on above: Order Comment: Speci men Type: BLOOD SPECIMENOrdering Facility: [facility] Address: [address] [place] [address] Performed By: #### 2 132-9, 3015-3, ####[facility] LABCLIA [id number] [place] [address] [place] Vit B12 SerPl-ncon 024 Cobalamin (Vitamin B12) [Mass/Vol] 456 pg/mL Normal 232-1245 [facility] Comment on above: Order Comment: Speci men Type: BLOOD SPECIMENOrdering Facility: [facility] Address: [address] [place] [address] Performed By: #### 2 132-9, 3016-3, 64691-3 ####[facility] LABCLIA [id number] [place] [address] [place] Thin prep Papanicolaou smear with manual screeningOrdered By: Carl Couch on 08-16-2023 Thin prep Papanicolaou smear with manual screening 361 mg/dL 74-106 [facility] Comment on above: MANAGEMENT OF PATIEN T CARE PER NURSING PROTOCOL Absolute lymphocyte countOrd ered By: Mitzy Perez on 08-15-2023 Lymphocytes Auto (Unsp spec) [#/Vol] 0.83 10*3/uL 0.83-4.51 [facility] Automated lymphocyte count a s percentage of total leukocytesOrdered By: Mitzy Perez on 08-15-2023 Lymphocytes/100 WBC Auto (Unsp spec) 18.4 % 19-41 [facility] Basophil percentageOrdered B y: Mitzy Perez on 08-15-2023 Basophil percentage 2.6 mg/dL 2.5-4.9 [facility] Basophils/100 WBC (Bld) 0.7 % 0-1 [facility] Bilirubin [Mass/Vol] 0.70 mg/dL 0.20-1.00 [facility] Comment on above: For patients on eltr ombopag therapy, use of Dimension [place] TBIL is not recommended. Chloride [Moles/Vol] 102 mmol/L 98-107 [facility] Eosinophils/100 WBC (Bld) 1.5 % 0-5 [facility] Glucose [Mass/Vol] 344 mg/dL 74-106 [facility] Comment on above: Glucose result great er than or equal to 200 mg/dLsuggests DIABETES MELLITUS per A.D.A. criteria. Hemoglobin (Bld) [Mass/Vol] 9.6 g/dL 12.0-15.0 [facility] Monocytes/100 WBC (Bld) 6.9 % 0-10 [facility] Neutrophils (Bld) [#/Vol] 3.2 10*3/uL 2.0-7.7 [facility] Neutrophils/100 WBC (Bld) 71.6 % 47-70 [facility] Potassium [Moles/Vol] 3.7 mmol/L 3.5-5.1 [facility] Protein [Mass/Vol] 6.2 g/dL 6.4-8.2 [facility] Sodium [Moles/Vol] 134 mmol/L 136-145 [facility] WBC (Bld) [#/Vol] 4.5 10*3/uL 4.4-11.0 [facility] Basophil percentageOrdered B y: Lola Bestjanice on 08-15-2023 Chloride [Moles/Vol] 101 mmol/L 98-107 [facility] Glucose [Mass/Vol] 681 mg/dL 74-106 [facility] Comment on above: Critical Result(s) C alled at: 00:43:24 08/15/2023 by: Debra Canela to Cole Sutton. Results read back by same.Glucose result greater than or equal to 200 mg/dLsuggests DIABETES MELLITUS per A.D.A. criteria. Potassium [Moles/Vol] 4.6 mmol/L 3.5-5.1 [facility] Sodium [Moles/Vol] 135 mmol/L 136-145 [facility] Determination of erythrocyte mean corpuscular volume (MCV)Ordered By: Mitzy Perez on 08-15-2023 MCV (RBC) [Entitic vol] 84.0 fL 81-99 [facility] Erythrocyte distribution wid th ratioOrdered By: Mitzy Perez on 08-15-2023 Erythrocyte distribution width (RBC) [Ratio] 19.0 % 11.6-14.6 [facility] Erythrocyte distribution wid th standard deviationOrdered By: Mitzy Perez on 08-15-2023 Erythrocyte distribution width (RBC) [Entitic vol] 57.0 fL 35.1-43.9 [facility] Hematocrit Auto (Bld) [Volum e fraction]Ordered By: Mitzy Perez on 08-15-2023 Hematocrit (Bld) [Volume fraction] 31.6 % 37-47 [facility] Immature granulocytes/100 WB C Auto (Bld)Ordered By: Mitzy Perez on 08-15-2023 Immature granulocytes/100 WBC (Bld) 0.900 % 0.0-0.9 [facility] Comment on above: IG% - Immature Granu locytes (promyelocytes, myelocytes and metamyelocytes) > 1% indicates that a LEFT SHIFT is Present. Laboratory - Chemistry and C hemistry - challengeOrdered By: Mitzy Perez on 08-15-2023 Albumin/Globulin [Mass ratio] 0.7 {ratio} 0.9-2.4 [facility] ALP [Catalytic activity/Vol] 273 U/L 45-117 [facility] ALT [Catalytic activity/Vol] 91 U/L 13-56 [facility] CO2 [Moles/Vol] 28.0 mmol/L 21.0-32.0 [facility] Globulin (S) [Mass/Vol] 3.6 g/dL 2.2-4.2 [facility] Magnesium [Mass/Vol] 1.9 mg/dL 1.6-2.6 [facility] Urea nitrogen/Creatinine [Mass ratio] 31.3 mg/mg 10-20 [facility] Laboratory - Chemistry and C hemistry - challengeOrdered By: Lola Marquez on 08-15-2023 CO2 [Moles/Vol] 27.0 mmol/L 21.0-32.0 [facility] Urea nitrogen/Creatinine [Mass ratio] 27.0 mg/mg 10-20 [facility] Laboratory - Hematology and Cell countsOrdered By: Mitzy Perez on 08-15-2023 MCH (RBC) [Entitic mass] 25.5 pg 27.0-32.0 [facility] MCHC (RBC) [Mass/Vol] 30.4 g/dL 32-36 [facility] Nucleated RBC/100 WBC (Bld) [Ratio] 0 % 0-5 [facility] Platelet mean volume (Bld) [Entitic vol] 11.7 fL 6.2-12.0 [facility] Platelets (Bld) [#/Vol] 144 10*3/uL 150-450 [facility] No Panel InformationOrdered By: Mitzy Perez on 08-15-2023 Estimated Creatinine Clearance Calc 46.31 ml/min [facility] Estimated GFR (MDRD) Amer 103 mL/min >60 [facility] Comment on above: GFR Calc Estimated GFR (MDRD) Non-Af Amer 85 mL/min >60 [facility] Comment on above: Non- GFR Calc No Panel InformationOrdered By: Lola Marquez on 08-15-2023 Estimated Creatinine Clearance Calc 42.48 ml/min [facility] Estimated GFR (MDRD) Amer 79 mL/min >60 [facility] Comment on above: GFR Calc Estimated GFR (MDRD) Non-Af Amer 65 mL/min >60 [facility] Comment on above: Non- GFR Calc Troponin I High Sensitivity 8 pg/mL 3.0-54.0 [facility] Comment on above: Please Note: New Bee t Units and Gender Specific Reference Ranges. For more information see Policy Stat Procedure [place] High Sensitivity Troponin (TNIH) and attachments. RBC Auto (Bld) [#/Vol]Ordere d By: Mitzy Perez on 08-15-2023 RBC (Bld) [#/Vol] 3.76 10*6/uL 4.2-5.4 [facility] Serum or plasma calcium sonu urement (mass/volume)Ordered By: Mitzy Perez on 08-15-2023 Calcium [Mass/Vol] 8.9 mg/dL 8.5-10.1 [facility] Serum or plasma calcium sonu urement (mass/volume)Ordered By: Lola Marquez on 08-15-2023 Calcium [Mass/Vol] 10.1 mg/dL 8.5-10.1 [facility] Serum or plasma creatinine m easurement (mass/volume)Ordered By: Mitzy Perez on 08-15-2023 Creatinine [Mass/Vol] 0.70 mg/dL 0.55-1.02 [facility] Comment on above: The validity of the calculated GFR & GFRAA in patients over 70 years has not been determined. Clinical correlation is essential. Serum or plasma creatinine m easurement (mass/volume)Ordered By: Lola Marquez on 08-15-2023 Creatinine [Mass/Vol] 0.89 mg/dL 0.55-1.02 [facility] Comment on above: The validity of the calculated GFR & GFRAA in patients over 70 years has not been determined. Clinical correlation is essential. Serum or plasma thyroid stim ulating hormone (TSH) measurement (units/volume)Ordered By: Mitzy Perez on 08-15-2023 TSH Qn 4.32 uIU/mL 0.358-3.74 [facility] Serum or plasma urea nitroge n measurement (mass/volume)Ordered By: Mitzy Perez on 08-15-2023 Urea nitrogen [Mass/Vol] 22 mg/dL 01-14 [facility] Serum or plasma urea nitroge n measurement (mass/volume)Ordered By: Lola Marquez on 08-15-2023 Urea nitrogen [Mass/Vol] 24 mg/dL 01-14 [facility] Thin prep Papanicolaou smear with manual screeningOrdered By: Mitzy Perez on 08-15-2023 Thin prep Papanicolaou smear with manual screening 2.6 g/dL 3.2-5.0 [facility] Thin prep Papanicolaou smear with manual screening 102 U/L 15-37 [facility] Thin prep Papanicolaou smear with manual screening 4 -15 [facility] Thin prep Papanicolaou smear with manual screening > 500 mg/dL 74-106 [facility] Comment on above: Dr Earle Damon NAGEMENT OF PATIENT CARE PER NURSING PROTOCOL Thin prep Papanicolaou smear with manual screeningOrdered By: Lola Marquez on 08-15-2023 Thin prep Papanicolaou smear with manual screening 7 -15 [facility] Whole blood hemoglobin A1c/t otal hemoglobin ratio (mass fraction)Ordered By: Carl Couch on 08-15-2023 HbA1c (Bld) [Mass fraction] 11.7 % 3.8-5.6 [facility] Comment on above: Normal < 5.7 % Predi abetic 5.7 - 6.4 % Diabetic >or= 6.5 % Please note range changes. Absolute lymphocyte countOrd ered By: Lola Marquez on 08-14-2023 Lymphocytes Auto (Unsp spec) [#/Vol] 0.75 10*3/uL 0.83-4.51 [facility] Automated lymphocyte count a s percentage of total leukocytesOrdered By: Lola Marquez on 08-14-2023 Lymphocytes/100 WBC Auto (Unsp spec) 17.4 % 19-41 [facility] Basophil percentageOrdered B y: Lola Marquez on 08-14-2023 Basophil percentage 25-50 SEEN /hpf 0-5 [facility] Basophils/100 WBC (Bld) 0.5 % 0-1 [facility] Eosinophils/100 WBC (Bld) 1.4 % 0-5 [facility] Hemoglobin (Bld) [Mass/Vol] 10.7 g/dL 12.0-15.0 [facility] Monocytes/100 WBC (Bld) 10.7 % 0-10 [facility] Neutrophils (Bld) [#/Vol] 3.0 10*3/uL 2.0-7.7 [facility] Neutrophils/100 WBC (Bld) 69.3 % 47-70 [facility] WBC (Bld) [#/Vol] 4.3 10*3/uL 4.4-11.0 [facility] Bilirubin Test strip Ql (U)O rdered By: Lola Marquez on 08-14-2023 Bilirubin Ql (U) Negative Negative [facility] CNPNon 08-14-2023 CNPN Telephone (INTMWS) STEVE VIEIRA ([id number]) 1945 F Date Time Provider Department 08/14/23 PETER ELLIS INTMWS During your visit today, we recorded the following information about you: Melina Keys, RN 08/14/2023 12:13 PM Signed Letitia BALLESTEROS from [facility] calls and states that she was out to see patient today for 3 hours. Letitia reports that patient is not safe to at home but is refusing to go to [facility]p. Letitia reports that living conditions are unlivable. [...] Please review and advise, SHANNON Eric Terri, HEALTH AND FITNESS PROFESSOR.TRANSFUSION AIDE 08/14/2023 3:00 PM Signed OK for SW. If she currently ill and needing to return to the hospital? If so recommend, may be able to transition to SNF from hospital. Sharon Mayer RN 08/14/2023 3:24 PM Signed Letitia BALLESTEROS from [facility] called and is notified of providers [...] by mouth daily with breakfast. Gets through [facility]. - ferrous sulfate 325 mg [...] Status:Closed by SHARON MAYER on 08/14/23 Normal [facility] Culture, urineOrdered By: Ginger Marquez on 08-14-2023 Bacteria identified Cx Nom (U) Klebsiella pneumoniae sp pneum [facility] Determination of erythrocyte mean corpuscular volume (MCV)Ordered By: Loal Marquez on 08-14-2023 MCV (RBC) [Entitic vol] 84.2 fL 81-99 [facility] Erythrocyte distribution wid th ratioOrdered By: Lola Marquez on 08-14-2023 Erythrocyte distribution width (RBC) [Ratio] 19.8 % 11.6-14.6 [facility] Erythrocyte distribution wid th standard deviationOrdered By: Lola Marquez on 08-14-2023 Erythrocyte distribution width (RBC) [Entitic vol] 58.6 fL 35.1-43.9 [facility] Hematocrit Auto (Bld) [Volum e fraction]Ordered By: Lola Marquez on 08-14-2023 Hematocrit (Bld) [Volume fraction] 36.9 % 37-47 [facility] Immature granulocytes/100 WB C Auto (Bld)Ordered By: Lola Marquez on 08-14-2023 Immature granulocytes/100 WBC (Bld) 0.700 % 0.0-0.9 [facility] Comment on above: IG% - Immature Granu locytes (promyelocytes, myelocytes and metamyelocytes) > 1% indicates that a LEFT SHIFT is Present. Ketones Test strip Ql (U)Ord ered By: Lola Marquez on 08-14-2023 Ketones Ql (U) 5 mg/dl Negative [facility] Laboratory - Hematology and Cell countsOrdered By: Lola Marquez on 08-14-2023 MCH (RBC) [Entitic mass] 24.4 pg 27.0-32.0 [facility] MCHC (RBC) [Mass/Vol] 29.0 g/dL 32-36 [facility] Comment on above: Delta: 27.5 on 08/11-0518 Nucleated RBC/100 WBC (Bld) [Ratio] 0 % 0-5 [facility] Platelet mean volume (Bld) [Entitic vol] 11.7 fL 6.2-12.0 [facility] Platelets (Bld) [#/Vol] 135 10*3/uL 150-450 [facility] Mucus LM Ql (Urine sed)Order ed By: Remus Ungur on 08-14-2023 Mucus Ql (Urine sed) 0 SEEN /hpf [facility] Nitrite Test strip Ql (U)Ord ered By: Remus Ungur on 08-14-2023 Nitrite Ql (U) Negative Negative [facility] No Panel InformationOrdered By: Remus Ungur on 08-14-2023 Urine RBC 5-10 SEEN /hpf 0-5 [facility] Protein Test strip Ql (U)Ord ered By: Remus Ungur on 08-14-2023 Protein Ql (U) Negative Negative [facility] RBC Auto (Bld) [#/Vol]Ordere d By: Remus Ungur on 08-14-2023 RBC (Bld) [#/Vol] 4.38 10*6/uL 4.2-5.4 [facility] Squamous epithelial cells de tection in urine sediment by light microscopyOrdered By: Remus Ungur on 08-14-2023 Epithelial cells.squamous LM Ql (Urine sed) 0 SEEN /hpf 5-10 [facility] Transitional cells detection in urine sediment by light microscopyOrdered By: Remus Ungur on 08-14-2023 Transitional cells LM Ql (Urine sed) 0 SEEN /hpf 0-5 [facility] Urine blood detectionOrdered By: Remus Ungur on 08-14-2023 RBC Ql (U) 250 /ul Negative [facility] Urine clarityOrdered By: Rem us Ungur on 08-14-2023 Clarity (U) Sl. Cloudy Clear [facility] Urine color determinationOrd ered By: Remus Ungur on 08-14-2023 Color (U) Yellow Yellow [facility] Urine glucose detectionOrder ed By: Remus Ungur on 08-14-2023 Glucose Ql (U) 1000 mg/dl Normal [facility] Urine leukocyte esterase det ection by dipstickOrdered By: Remus Ungur on 08-14-2023 Leukocyte esterase Test strip Ql (U) 100 /ul Negative [facility] Urine pHOrdered By: Lola Un gur on 08-14-2023 pH (U) 7.0 [pH] 5.0 - 8.0 [facility] Urine sediment bacteria coun t by microscopy (number/high power field)Ordered By: Lola Marquez on 08-14-2023 Bacteria LM.HPF (Urine sed) [#/Area] 1 /[HPF] None Seen [facility] Urine sediment renal epithel ial cell count by microscopy (number/high power field)Ordered By: Lola Marquez on 08-14-2023 Epithelial cells.renal LM.HPF (Urine sed) [#/Area] 0 /[HPF] 0-5 [facility] Urine specific gravity measu rementOrdered By: Lola Marquez on 08-14-2023 Specific gravity (U) [Rel density] 1.010 1.002-1.030 [facility] Urine urobilinogen measureme ntOrdered By: Lola Marquez on 08-14-2023 Urobilinogen Ql (U) Normal mg/dl Normal [facility] CNPNon 08-13-2023 [facility] Telephone (INTMWS) STEVE VIEIRA ([id number]) 1945 F Date Time Provider Department 08/13/23 PETER ELLIS INTWS During your visit today, we recorded the following information about you: Rich Richmond LPN 08/13/2023 3:19 PM Signed Cristin with [facility] calling to let you know did [...] hospital FU apt booked. ROSELIA Govea Terri, APRN.TRANSFUSION AIDE 08/14/2023 9:36 AM Signed Okay for home health care. She should follow medication orders from discharge of the hospital, aspirin does appear to be on the discharge medication orders. Why is home health care asking about 81 mg aspirin? Please schedule hospital discharge follow-up visit Marimar Shields LPN 08/14/2023 10:41 AM Signed Attempted to contact Cristin [facility] but no answer. Left providers message [...] LPN - Fully Assessed Reason for Visit: [facility], verbal order [Other] Prescriptions as of [...] by mouth daily with breakfast. Gets through [employer] PAP. - ferrous sulfate 325 mg [...] Status:Closed by RICH RICHMOND on 08/15/23 Normal [facility] Basophil percentageOrdered B y: Wes Alva on 08-12-2023 Hemoglobin (Bld) [Mass/Vol] 9.9 g/dL 12.0-15.0 [facility] Hematocrit Auto (Bld) [Volum e fraction]Ordered By: Wes Alva on 08-12-2023 Hematocrit (Bld) [Volume fraction] 33.7 % 37-47 [facility] Thin prep Papanicolaou smear with manual screeningOrdered By: Wes Alva on 08-12-2023 Thin prep Papanicolaou smear with manual screening 312 mg/dL 74-106 [facility] Comment on above: MANAGEMENT OF PATIEN T CARE PER NURSING PROTOCOL Absolute lymphocyte countOrd ered By: Mitzy Strauss on 08-11-2023 Lymphocytes Auto (Unsp spec) [#/Vol] 0.99 10*3/uL 0.83-4.51 [facility] Automated lymphocyte count a s percentage of total leukocytesOrdered By: Mitzy Strauss on 08-11-2023 Lymphocytes/100 WBC Auto (Unsp spec) 20.9 % 19-41 [facility] Basophil percentageOrdered B y: Mitzy Strauss on 08-11-2023 Basophils/100 WBC (Bld) 0.4 % 0-1 [facility] Chloride [Moles/Vol] 109 mmol/L 98-107 [facility] Eosinophils/100 WBC (Bld) 1.7 % 0-5 [facility] Glucose [Mass/Vol] 269 mg/dL 74-106 [facility] Comment on above: Glucose result great er than or equal to 200 mg/dLsuggests DIABETES MELLITUS per A.D.A. criteria. Monocytes/100 WBC (Bld) 8.9 % 0-10 [facility] Neutrophils (Bld) [#/Vol] 3.2 10*3/uL 2.0-7.7 [facility] Neutrophils/100 WBC (Bld) 66.6 % 47-70 [facility] Potassium [Moles/Vol] 3.6 mmol/L 3.5-5.1 [facility] Sodium [Moles/Vol] 139 mmol/L 136-145 [facility] WBC (Bld) [#/Vol] 4.7 10*3/uL 4.4-11.0 [facility] CNPNon 08-11-2023 [facility] Telephone (FAMPWS) STEVE VIEIRA ([id number]) 1945 F Date Time Provider Department 08/11/23 PETER ELLIS [facility] During your visit today, we recorded the following information about you: Alta Ortiz LPN 08/11/2023 12:51 PM Signed Liberty with [facility] calls to report pt is going to be discharged from [facility] today with orders for Nursing, PT, [...] subcutaneously one time a week. Gets through [employer] PAP. - empagliflozin (JARDIANCE) 25 mg tablet Take 1 tablet by mouth daily with breakfast. Gets through [employer] [facility]) PAP. - ferrous sulfate 325 mg (65 [...] by YESENIA YARBROUGH CMA on 08/12/23 Normal [facility] Determination of erythrocyte mean corpuscular volume (MCV)Ordered By: Mitzy Strauss on 08-11-2023 MCV (RBC) [Entitic vol] 82.3 fL 81-99 [facility] Erythrocyte distribution wid th ratioOrdered By: Mitzy Strauss on 08-11-2023 Erythrocyte distribution width (RBC) [Ratio] 18.8 % 11.6-14.6 [facility] Erythrocyte distribution wid th standard deviationOrdered By: Mitzy Strauss on 08-11-2023 Erythrocyte distribution width (RBC) [Entitic vol] 53.3 fL 35.1-43.9 [facility] Immature granulocytes/100 WB C Auto (Bld)Ordered By: Mitzy Strauss on 08-11-2023 Immature granulocytes/100 WBC (Bld) 1.500 % 0.0-0.9 [facility] Comment on above: IG% - Immature Granu locytes (promyelocytes, myelocytes and metamyelocytes) > 1% indicates that a LEFT SHIFT is Present. Laboratory - Chemistry and C hemistry - challengeOrdered By: Mitzy Strauss on 08-11-2023 CO2 [Moles/Vol] 24.0 mmol/L 21.0-32.0 [facility] Cobalamin (Vitamin B12) [Mass/Vol] 329 pg/mL 211-911 [facility] Urea nitrogen/Creatinine [Mass ratio] 26.6 mg/mg 10-20 [facility] Laboratory - Hematology and Cell countsOrdered By: Mitzy Strauss on 08-11-2023 MCH (RBC) [Entitic mass] 22.7 pg 27.0-32.0 [facility] MCHC (RBC) [Mass/Vol] 27.5 g/dL 32-36 [facility] Nucleated RBC/100 WBC (Bld) [Ratio] 0 % 0-5 [facility] Platelet mean volume (Bld) [Entitic vol] 11.5 fL 6.2-12.0 [facility] Platelets (Bld) [#/Vol] 161 10*3/uL 150-450 [facility] No Panel InformationOrdered By: Mitzy Strauss on 08-11-2023 Estimated Creatinine Clearance Calc 45.06 ml/min [facility] Estimated GFR (MDRD) Amer 123 mL/min >60 [facility] Comment on above: GFR Calc Estimated GFR (MDRD) Non-Af Amer 102 mL/min >60 [facility] Comment on above: Non- GFR Calc RBC Auto (Bld) [#/Vol]Ordere d By: Mitzy Strauss on 08-11-2023 RBC (Bld) [#/Vol] 3.00 10*6/uL 4.2-5.4 [facility] Serum or plasma calcium sonu urement (mass/volume)Ordered By: Mitzy Strauss on 08-11-2023 Calcium [Mass/Vol] 8.2 mg/dL 8.5-10.1 [facility] Serum or plasma creatinine m easurement (mass/volume)Ordered By: Mitzy Strauss on 08-11-2023 Creatinine [Mass/Vol] 0.60 mg/dL 0.55-1.02 [facility] Comment on above: The validity of the calculated GFR & GFRAA in patients over 70 years has not been determined. Clinical correlation is essential. Serum or plasma urea nitroge n measurement (mass/volume)Ordered By: Mitzy Strauss on 08-11-2023 Urea nitrogen [Mass/Vol] 16 mg/dL 7-18 [facility] Thin prep Papanicolaou smear with manual screeningOrdered By: Mitzy Strauss on 08-11-2023 Thin prep Papanicolaou smear with manual screening 6 5-15 [facility] Basophil percentageOrdered B y: Mitzy Strauss on 08-10-2023 Basophil percentage 2.6 mg/dL 2.5-4.9 [facility] Hemoglobin in reticulocytes (mass per reticulocyte)Ordered By: Mitzy Strauss on 08-10-2023 Hemoglobin (Reticulocytes) [Entitic mass] 26.1 pg 30-35 [facility] Iron measurement (mass/mass) Ordered By: Mitzy Strauss on 08-10-2023 Iron (Unsp spec) [Mass/Mass] 25 ug/dL 50-170 [facility] Laboratory - Chemistry and C hemistry - challengeOrdered By: Mitzy Strauss on 08-10-2023 Ferritin [Mass/Vol] 20 ng/mL 8-252 [facility] Magnesium [Mass/Vol] 2.2 mg/dL 1.6-2.6 [facility] No Panel InformationOrdered By: Mitzy Strauss on 08-10-2023 Immature Reticulocyte Fraction 35.70 % 3.00-15.90 [facility] Total Iron Binding Capacity 368 ug/dL 250-450 [facility] Reticulocytes Auto (Bld) [#/ Vol]Ordered By: Mitzy Strauss on 08-10-2023 Reticulocytes/100 RBC (Bld) 3.32 % 0.5-1.5 [facility] Serum or plasma iron saturat ion measurement (mass fraction)Ordered By: Mitzy Strauss on 08-10-2023 Iron saturation [Mass fraction] 6.8 % 15.0-55.0 [facility] Basophil percentageOrdered B y: Clayton Abreu on 08-09-2023 Basophil percentage 0 SEEN /hpf 0-5 [facility] Bilirubin [Mass/Vol] 0.90 mg/dL 0.20-1.00 [facility] Comment on above: For patients on eltr ombopag therapy, use of Dimension [place] TBIL is not recommended. Protein [Mass/Vol] 7.4 g/dL 6.4-8.2 [facility] Bilirubin Test strip Ql (U)O rdered By: Clayton Abreu on 08-09-2023 Bilirubin Ql (U) Negative Negative [facility] Ketones Test strip Ql (U)Ord ered By: Clayton Abreu on 08-09-2023 Ketones Ql (U) 150 mg/dl Negative [facility] Comment on above: CRITICAL VALUE *HCRI TICAL VALUE VERIFIED. CALLED TO АЛЕКСАНДР THAO08/09/23 1252 Lena Crouch.RESULTS READ BACK BY SAME . Laboratory - Chemistry and C hemistry - challengeOrdered By: Clayton Abreu on 08-09-2023 Albumin/Globulin [Mass ratio] 0.8 {ratio} 0.9-2.4 [facility] ALP [Catalytic activity/Vol] 186 U/L 45-117 [facility] ALT [Catalytic activity/Vol] 42 U/L 13-56 [facility] CK [Catalytic activity/Vol] 42 U/L 26-192 [facility] Globulin (S) [Mass/Vol] 4.1 g/dL 2.2-4.2 [facility] Laboratory - Microbiology an d Antimicrobial susceptibilityOrdered By: Clayton Abreu on 08-09-2023 SARS-CoV-2 (COVID-19) RNA LUBA+probe Ql (Unsp spec) [facility] Mucus LM Ql (Urine sed)Order ed By: Clayton Abreu on 08-09-2023 Mucus Ql (Urine sed) 0 SEEN /hpf [facility] Nitrite Test strip Ql (U)Ord ered By: Clayton Abreu on 08-09-2023 Nitrite Ql (U) Negative Negative [facility] No Panel InformationOrdered By: Clayton bAreu on 08-09-2023 Urine RBC 0 SEEN /hpf 0-5 [facility] Protein Test strip Ql (U)Ord ered By: Clayton Abreu on 08-09-2023 Protein Ql (U) 15 mg/dl Negative [facility] Serum or plasma thyroid stim ulating hormone (TSH) measurement (units/volume)Ordered By: Clayton Abreu on 08-09-2023 TSH Qn 4.30 uIU/mL 0.358-3.74 [facility] Squamous epithelial cells de tection in urine sediment by light microscopyOrdered By: Clayton Abreu on 08-09-2023 Epithelial cells.squamous LM Ql (Urine sed) 0 SEEN /hpf 5-10 [facility] Thin prep Papanicolaou smear with manual screeningOrdered By: Clayton Abreu on 08-09-2023 Thin prep Papanicolaou smear with manual screening 3.3 g/dL 3.2-5.0 [facility] Thin prep Papanicolaou smear with manual screening 53 U/L 15-37 [facility] Urine blood detectionOrdered By: Clayton Abreu on 08-09-2023 RBC Ql (U) 10 /ul Negative [facility] Urine clarityOrdered By: Apolonia Abreu on 08-09-2023 Clarity (U) Clear Clear [facility] Urine color determinationOrd ered By: Clayton Abreu on 08-09-2023 Color (U) Yellow Yellow [facility] Urine glucose detectionOrder ed By: Clayton Abreu on 08-09-2023 Glucose Ql (U) 1000 mg/dl Normal [facility] Urine leukocyte esterase det ection by dipstickOrdered By: Clayton Abreu on 08-09-2023 Leukocyte esterase Test strip Ql (U) Negative Negative [facility] Urine pHOrdered By: Clayton angel on 08-09-2023 pH (U) 5.0 [pH] 5.0 - 8.0 [facility] Urine sediment bacteria coun t by microscopy (number/high power field)Ordered By: Clayton Abreu on 08-09-2023 Bacteria LM.HPF (Urine sed) [#/Area] 0 /[HPF] None Seen [facility] Urine specific gravity measu rementOrdered By: Clayton Abreu on 08-09-2023 Specific gravity (U) [Rel density] 1.015 1.002-1.030 [facility] Urine urobilinogen measureme ntOrdered By: Clayton Abreu on 08-09-2023 Urobilinogen Ql (U) Normal mg/dl Normal [facility] 25(OH)D3 SerPl-mCncon 2023 25-hydroxyvitamin D3 [Mass/Vol] 7.1 ng/mL Low 31.0-80.0 [facility] Comment on above: Order Comment: Speci men Type: BLOOD SPECIMEN Ordering Facility: [facility] Address: [address] [place], [place] [address] [address] Result Comment: Clas sification of 25 [place] Vitamin D status: Deficiency/Insufficiency: < or = 30 ng/ml. Sufficiency/Optimal Levels: 31-80 ng/mL Toxicity: > 100 ng/mL. Test performed by chemiluminescent immunoassay. Performed By: #### 1 989-3 #### [facility] CLIA [id number] [address] [place] [address] [place] CBC panel Auto (Bld)on 07-04 Erythrocyte distribution width (RBC) [Ratio] 15.9 % High 11.5-15.0 [facility] Comment on above: Order Comment: Speci men Type: BLOOD SPECIMEN Ordering Facility: [facility] Address: [address] [place] [address] Performed By: #### 1 989-3 #### [facility] CLIA [id number] [address] [place] [address] [place] Hematocrit (Bld) [Volume fraction] 27.9 % Low 36.0-46.0 [facility] Comment on above: Order Comment: Speci men Type: BLOOD SPECIMEN Ordering Facility: [facility] Address: [address] [place] [address] Performed By: #### 1 989-3 #### [facility] CLIA [id number] [address] [place] [address] [place] Hemoglobin (Bld) [Mass/Vol] 7.8 g/dL Low 11.5-15.5 [facility] Comment on above: Order Comment: Speci men Type: BLOOD SPECIMEN Ordering Facility: [facility] Address: [address] [place] [address] Performed By: #### 1 989-3 #### [facility] CLIA [id number] [address] [place] [address] [place] MCH (RBC) [Entitic mass] 23.1 pg Low 26.0-34.0 [facility] Comment on above: Order Comment: Speci men Type: BLOOD SPECIMEN Ordering Facility: [facility] Address: [address] [place] [address] Performed By: #### 1 989-3 #### [facility] CLIA [id number] [address] [place] [address] [place] MCHC (RBC) [Mass/Vol] 28.0 g/dL Low 30.5-36.0 [facility] Comment on above: Order Comment: Speci men Type: BLOOD SPECIMEN Ordering Facility: [facility] Address: [address] [place] [address] Performed By: #### 1 989-3 #### [facility] CLIA [id number] [address] [place] [address] [place] MCV (RBC) [Entitic vol] 82.8 fL Normal 80.0-100.0 [facility] Comment on above: Order Comment: Speci men Type: BLOOD SPECIMEN Ordering Facility: [facility] Address: [address] [place] [address] Performed By: #### 1 989-3 #### [facility] CLIA [id number] [address] [place] [address] [place] Nucleated RBC (Bld) [#/Vol] 10*3/uL Normal <0.01 [facility] Comment on above: Order Comment: Speci men Type: BLOOD SPECIMEN Ordering Facility: [facility] Address: [address] [place] [address] Performed By: #### 1 989-3 #### [facility] CLIA [id number] [address] [place] [address] [place] Platelet mean volume (Bld) [Entitic vol] 12.5 fL Normal 9.0-12.7 [facility] Comment on above: Order Comment: Speci men Type: BLOOD SPECIMEN Ordering Facility: [facility] Address: [address] [place] [address] Performed By: #### 1 989-3 #### [facility] CLIA [id number] [address] [place] [address] [place] Platelets (Bld) [#/Vol] 204 10*3/uL Normal 150-400 [facility] Comment on above: Order Comment: Speci men Type: BLOOD SPECIMEN Ordering Facility: [facility] Address: [address] [place] [address] Performed By: #### 1 989-3 #### [facility] CLIA [id number] [address] [place] [address] [place] RBC (Bld) [#/Vol] 3.37 10*6/uL Low 3.90-5.20 [facility] Comment on above: Order Comment: Speci men Type: BLOOD SPECIMEN Ordering Facility: [facility] Address: [address] [place] [address] Performed By: #### 1 989-3 #### [facility] CLIA [id number] [address] [place] [address] [place] WBC (Bld) [#/Vol] 5.46 10*3/uL Normal 3.70-11.00 [facility] Comment on above: Order Comment: Speci men Type: BLOOD SPECIMEN Ordering Facility: [facility] Address: [address] [place] [address] Performed By: #### 1 989-3 #### [facility] CLIA [id number] [address] [place] [address] [place] Comprehensive metabolic 2000 panelon 07-04-2023 Albumin [Mass/Vol] 4.3 g/dL Normal 3.9-4.9 [facility] Comment on above: Order Comment: Speci men Type: BLOOD SPECIMEN Ordering Facility: [facility] Address: [address] [place] [address] Performed By: #### 1 989-3 #### [facility] CLIA [id number] [address] [place] [address] [place] ALP [Catalytic activity/Vol] 188 U/L High 34-123 [facility] Comment on above: Order Comment: Speci men Type: BLOOD SPECIMEN Ordering Facility: [facility] Address: [address] [place] [address] Performed By: #### 1 989-3 #### [facility] CLIA [id number] [address] [place] [address] [place] ALT [Catalytic activity/Vol] 45 U/L High 7-38 [facility] Comment on above: Order Comment: Speci men Type: BLOOD SPECIMEN Ordering Facility: [facility] Address: [address] [place] [address] Performed By: #### 1 989-3 #### [facility] CLIA [id number] [address] [place] [address] [place] Anion gap [Moles/Vol] 14 mmol/L Normal 9-18 [facility] Comment on above: Order Comment: Speci men Type: BLOOD SPECIMEN Ordering Facility: [facility] Address: [address] [place] [address] Performed By: #### 1 989-3 #### [facility] CLIA [id number] [address] [place] [address] [place] AST [Catalytic activity/Vol] 48 U/L High 13-35 [facility] Comment on above: Order Comment: Speci men Type: BLOOD SPECIMEN Ordering Facility: [facility] Address: [address] [place] [address] Performed By: #### 1 989-3 #### [facility] CLIA [id number] [address] [place] [address] [place] Bilirubin [Mass/Vol] 0.6 mg/dL Normal 0.2-1.3 [facility] Comment on above: Order Comment: Speci men Type: BLOOD SPECIMEN Ordering Facility: [facility] Address: [address] [place] [address] Performed By: #### 1 989-3 #### [facility] CLIA [id number] [address] [place] [address] [place] Calcium [Mass/Vol] 9.7 mg/dL Normal 8.5-10.2 [facility] Comment on above: Order Comment: Speci men Type: BLOOD SPECIMEN Ordering Facility: [facility] Address: [address] [place] [address] Performed By: #### 1 989-3 #### [facility] CLIA [id number] [address] [place] [address] [place] Chloride [Moles/Vol] 98 mmol/L Normal 97-105 [facility] Comment on above: Order Comment: Speci men Type: BLOOD SPECIMEN Ordering Facility: [facility] Address: [address] [place] [address] Performed By: #### 1 989-3 #### [facility] CLIA [id number] [address] [place] [address] [place] CO2 [Moles/Vol] 23 mmol/L Normal 22-30 [facility] Comment on above: Order Comment: Speci men Type: BLOOD SPECIMEN Ordering Facility: [facility] Address: [address] [place] [address] Performed By: #### 1 989-3 #### [facility] CLIA [id number] [address] [place] [address] [place] Creatinine [Mass/Vol] 0.68 mg/dL Normal 0.58-0.96 [facility] Comment on above: Order Comment: Speci men Type: BLOOD SPECIMEN Ordering Facility: [facility] Address: [address] [place] [address] Performed By: #### 1 989-3 #### [facility] CLIA [id number] [address] [place] [address] [place] Creatinine and Glomerular filtration rate.predicted panel (S/P/Bld) 88 mL/min/1.73m??? Normal >=60 [facility] Comment on above: Order Comment: Sudhakar mera Type: BLOOD SPECIMEN Ordering Facility: [facility] Address: [address] [place] [address] Result Comment: Audra mated Glomerular Filtration Rate [...] GFR. Performed By: #### 1 989-3 #### [facility] CLIA [id number] [address] [place] [address] [place] Glucose [Mass/Vol] 492 mg/dL High 74-99 [facility] Comment on above: Order Comment: Sudhakar mera Type: BLOOD SPECIMEN Ordering Facility: [facility] Address: [address] [place] [address] Result Comment: The [place] [employer] (ADA) provides guidance for cutoff [...] Standards of Medical Care in Diabetes 2016, [place] [employer]. Diabetes Care. 2016.39(Suppl 1). Performed By: #### 1 989-3 #### [facility] CLIA [id number] [address] [place] [address] [place] Potassium [Moles/Vol] 4.7 mmol/L Normal 3.7-5.1 [facility] Comment on above: Order Comment: Sudhakar mera Type: BLOOD SPECIMEN Ordering Facility: [facility] Address: [address] [place] [address] Performed By: #### 1 989-3 #### [facility] CLIA [id number] [address] [place] [address] [place] Protein [Mass/Vol] 7.2 g/dL Normal 6.3-8.0 [facility] Comment on above: Order Comment: Speci men Type: BLOOD SPECIMEN Ordering Facility: [facility] Address: [address] [place] [address] Performed By: #### 1 989-3 #### [facility] CLIA [id number] [address] [place] [address] [place] Sodium [Moles/Vol] 135 mmol/L Low 136-144 [facility] Comment on above: Order Comment: Speci men Type: BLOOD SPECIMEN Ordering Facility: [facility] Address: [address] [place] [address] Performed By: #### 1 989-3 #### [facility] CLIA [id number] [address] [place] [address] [place] Urea nitrogen [Mass/Vol] 15 mg/dL Normal 7-21 [facility] Comment on above: Order Comment: Speci men Type: BLOOD SPECIMEN Ordering Facility: [facility] Address: [address] [place] [address] Performed By: #### 1 989-3 #### [facility] CLIA [id number] [address] [place] [address] [place] HbA1c (Bld)on 07-04-2023 Average glucose Estimated from glycated hemoglobin (Bld) [Mass/Vol] 324 mg/dL Normal [facility] Comment on above: Order Comment: Speci men Type: BLOOD SPECIMEN Ordering Facility: [facility] Address: [address] [place] [address] Result Comment: eAG: (Estimated average glucose) is a calculated value from HgbA1c and is claims service representative of the average blood glucose level in the last 2-3 month period. Performed By: #### 5 5454-3 #### [facility] CLIA [id number] [address] [place] [address] [place] HbA1c (Bld) [Mass fraction] 12.9 % High 4.3-5.6 [facility] Comment on above: Order Comment: Speci men Type: BLOOD SPECIMEN Ordering Facility: [facility] Address: [address] [place] [address] Result Comment: [place] Diabetes Association guidelines indicate that patients with HgbA1c in the range 5.7-6.4% are at increased risk for development of diabetes, and intervention by lifestyle modification may be beneficial. HgbA1c greater or equal to 6.5% is considered diagnostic of diabetes. Performed By: #### 5 5454-3 #### [facility] [place] [id number] [address] [place] [address] [place] T3Free SerPl-mCncon 07-04-19 24 Free T3 [Mass/Vol] 2.4 pg/mL Normal 2.3-4.1 [facility] Comment on above: Order Comment: Speci men Type: BLOOD SPECIMEN Ordering Facility: [facility] Address: [address] [place] [address] Performed By: #### 1 989-3 #### [facility] [place] [id number] [address] [place] [address] [place] T4 Free SerPl-mCncon 024 Free T4 [Mass/Vol] 1.3 ng/dL Normal 0.9-1.7 [facility] Comment on above: Order Comment: Speci men Type: BLOOD SPECIMEN Ordering Facility: [facility] Address: [address] [place] [address] Performed By: #### 1 989-3 #### [facility] [place] [id number] [address] [place] [address] [place] TSH SerPl-aCncon 07-04-2023 TSH Qn 4.380 m[IU]/L High 0.270-4.200 [facility] Comment on above: Order Comment: Speci men Type: BLOOD SPECIMEN Ordering Facility: [facility] Address: [address] [place] [address] Performed By: #### 1 989-3 #### [facility] CLIA [id number] 95[address] [facility] [id number] OF [facility] CNPNon 04-21-2023 CNPN Telephone (ROCK) STEVE VIEIRA ([id number]) 1945 F Date Time Provider Department 04/21/23 SHERWIN CHE During your visit today, we recorded the following information about you: Sherwin Che MSW 04/21/2023 10:21 AM Signed Lesli spoke with patient and verified that patient Jardiance medication is the only medication that she applies to [facility] for assistance. Lesli will take forms to Dr. Ellis office for prescription completion. Renetta Abernathy LPN 04/22/2023 1:40 PM Signed [employer] Maria Guadalupe Rabago completed these. They have [...] subcutaneously one time a week. Gets through [employer] PAP. - empagliflozin (JARDIANCE) 25 mg tablet Take 1 tablet by mouth daily with breakfast. Gets through [employer] P[employer]. - ferrous sulfate 325 mg (65 [...] Status:Closed by RENETTA ABERNATHY LPN on 04/22/23 [facility] CNPJenna 03-04-2023 CNPN Telephone (ALEAHWST) STEVE VIEIRA ([id number]) 1945 F Date Time Provider Department 03/04/23 [...] will mail [employer] brochures and [facility] resource guide to patient [...] by mouth daily with breakfast. Gets through [employer] PAP. - ferrous sulfate 325 mg [...] Encounter Status:Closed by SHERWIN CHE on 03/05/23 [facility] CNOVon 02-28-2023 CNOV Office Visit (INTMWS ) STEVE VIEIRA ([id number]) 1945 F Date Time Provider Department 02/28/23 [...] subcutaneously one time a week. Gets through [employer] P[employer]. empagliflozin (JARDIANCE) 25 mg tablet Take [...] 85.8 Albumin (more content not included)... Normal [facility] ALBUMIN/CREAT RATIO RND URon 02-13-2023 Albumin DL <= 20 mg/L (U) [Mass/Vol] 15.5 mg/L Normal [facility] Comment on above: Order Comment: Speci men Type: URINE SPECIMENOrdering Facility: [facility] Address: [address] [place] [id number] Performed By: #### U ACR ####[facility] [id number] [address] [place] Albumin/Creatinine (U) [Mass ratio] 18 mg/g Normal <30 [facility] Comment on above: Order Comment: Speci men Type: URINE SPECIMENOrdering Facility: [facility] Address: [address] [place] [address] Result Comment: Adul t Male and Female Nephrotic Criteria: <30 mg/g is considered normal to mildly increased 30-300 mg/g is considered moderately increased >300 mg/g is considered severely increased KDIGO. (2013). KDIGO 2012 Clinical Practice Guideline for the Evaluation and Management of Chronic Kidney Disease. Official Journal of the International Society of Nephrology, 3(1), 1-150. Performed By: #### U ACR ####[facility] [id number] [address] [place] Creatinine (U) [Mass/Vol] 85.8 mg/dL Normal 20.0-300.0 [facility] Comment on above: Order Comment: Speci men Type: URINE SPECIMENOrdering Facility: [facility] Address: [address] [place] [address] Performed By: #### U ACR ####[facility] [id number] [address] [place] CBC panel Auto (Bld)on 02-13 Erythrocyte distribution width (RBC) [Ratio] 15.3 % High 11.5 - 15.0 % [facility] Hematocrit (Bld) [Volume fraction] 29.8 % Low 36.0 - 46.0 % [facility] Hemoglobin (Bld) [Mass/Vol] 8.5 g/dL Low 11.5 - 15.5 g/dL [facility] MCH (RBC) [Entitic mass] 24.8 pg Low 26. 0 - 34.0 pg [facility] MCHC (RBC) [Mass/Vol] 28.5 g/dL Low 30.5 - 36.0 g/dL [facility] MCV (RBC) [Entitic vol] 86.9 fL 80.0 - 100.0 fL [facility] Nucleated RBC (Bld) [#/Vol] <0.01 k/uL [facility] Platelet mean volume (Bld) [Entitic vol] 11.9 fL 9.0 - 12.7 fL [facility] Platelets (Bld) [#/Vol] 232 10*3/uL 150 - 400 k/uL [facility] RBC (Bld) [#/Vol] 3.43 10*6/uL Low 3.90 - 5.2 0 m/uL [facility] WBC (Bld) [#/Vol] 6.00 10*3/uL 3.70 - 11. 00 k/uL [facility] Erythrocyte distribution width (RBC) [Ratio] 15.3 % High 11.5-15.0 [facility] Comment on above: Order Comment: Speci men Type: BLOOD SPECIMENOrdering Facility: [facility] Address: [address] [place] [address] Performed By: #### 5 8410-2 ####[facility] [id number] [address] STATES OF [facility] Hematocrit (Bld) [Volume fraction] 29.8 % Low 36.0-46.0 [facility] Comment on above: Order Comment: Speci samaria Type: BLOOD SPECIMENOrdering Facility: [facility] Address: [address] [place] [address] Performed By: #### 5 8410-2 ####[facility] [id number] [place] [address] [place] Hemoglobin (Bld) [Mass/Vol] 8.5 g/dL Low 11.5-15.5 [facility] Comment on above: Order Comment: Speci men Type: BLOOD SPECIMENOrdering Facility: [facility] Address: [address] [place] [address] Performed By: #### 5 8410-2 ####[facility] [id number] [place] [address] [place] MCH (RBC) [Entitic mass] 24.8 pg Low 26.0-34.0 [facility] Comment on above: Order Comment: Speci men Type: BLOOD SPECIMENOrdering Facility: [facility] Address: [address] Performed By: #### 5 8410-2 ####[facility] [id number] [place] [address] [place] MCHC (RBC) [Mass/Vol] 28.5 g/dL Low 30.5-36.0 [facility] Comment on above: Order Comment: Speci men Type: BLOOD SPECIMENOrdering Facility: [facility] Address: [address] [place] [address] Performed By: #### 5 8410-2 ####[facility] [id number] [address] [place] MCV (RBC) [Entitic vol] 86.9 fL Normal 80.0-100.0 [facility] Comment on above: Order Comment: Speci men Type: BLOOD SPECIMENOrdering Facility: [facility] Address: [address] [place], [place] [address] Performed By: #### 5 8410-2 ####[facility] [id number] [place] [address] [place] Nucleated RBC (Bld) [#/Vol] 10*3/uL Normal <0.01 [facility] Comment on above: Order Comment: Speci men Type: BLOOD SPECIMENOrdering Facility: [facility] Address: [address] Performed By: #### 5 8410-2 ####[facility] [id number] [place] [address] [place] Platelet mean volume (Bld) [Entitic vol] 11.9 fL Normal 9.0-12.7 [facility] Comment on above: Order Comment: Speci men Type: BLOOD SPECIMENOrdering Facility: [facility] Address: [address] [place], [place] [address] Performed By: #### 5 8410-2 ####[facility] [id number] [place] [address] [place] Platelets (Bld) [#/Vol] 232 10*3/uL Normal 150-400 [facility] Comment on above: Order Comment: Speci men Type: BLOOD SPECIMENOrdering Facility: [facility] Address: [address] [place] [address] Performed By: #### 5 8410-2 ####[facility] [id number] [place] [address] [place] RBC (Bld) [#/Vol] 3.43 10*6/uL Low 3.90-5.20 [facility] Comment on above: Order Comment: Speci men Type: BLOOD SPECIMENOrdering Facility: [facility] Address: [address] [place] [address] Performed By: #### 5 8410-2 ####[facility] [id number] [place] [address] [place] WBC (Bld) [#/Vol] 6.00 10*3/uL Normal 3.70-11.00 [facility] Comment on above: Order Comment: Speci men Type: BLOOD SPECIMENOrdering Facility: [facility] Address: [address] [place] [address] Performed By: #### 5 8410-2 ####[facility] [id number] [place] [id number] [place] Comprehensive metabolic 2000 panelon 02-13-2023 Albumin [Mass/Vol] 4.3 g/dL Normal 3.9-4.9 [facility] Comment on above: Order Comment: Speci men Type: BLOOD SPECIMEN Ordering Facility[facility] Address: [address] [place] [address] Performed By: #### 1 989-3 #### [facility] CLIA [id number] [address] [place] [id number] [place] ALP [Catalytic activity/Vol] 151 U/L High 34-123 [facility] Comment on above: Order Comment: Speci men Type: BLOOD SPECIMEN Order[facility] Address: [address] [place] [address] Performed By: #### 1 989-3 #### [facility] CLIA [id number] [address] [place] [address] [place] ALT [Catalytic activity/Vol] 32 U/L Normal 7-38 [facility] Comment on above: Order Comment: Speci men Type: BLOOD SPECIMEN Order[facility] Address: [address] [place] [address] Performed By: #### 1 989-3 #### [facility] CLIA [id number] [address] [place] [address] [place] Anion gap [Moles/Vol] 13 mmol/L Normal 9-18 [facility] Comment on above: Order Comment: Speci men Type: BLOOD SPECIMEN [facility] Address: [address] [place] [address] Performed By: #### 1 989-3 #### [facility] CLIA [id number] [address] [place] [address] [place] AST [Catalytic activity/Vol] 59 U/L High 13-35 [facility] Comment on above: Order Comment: Speci men Type: BLOOD SPECIMEN [facility] Address: [address] [place] [address] Performed By: #### 1 989-3 #### [facility] CLIA [id number] [address] [place] [address] [place] Bilirubin [Mass/Vol] 0.5 mg/dL Normal 0.2-1.3 [facility] Comment on above: Order Comment: Speci men Type: BLOOD SPECIMEN Order[facility] Address: [address] [place] [address] Performed By: #### 1 989-3 #### [facility] CLIA [id number] [address] [place] [address] [place] Calcium [Mass/Vol] 9.6 mg/dL Normal 8.5-10.2 [facility] Comment on above: Order Comment: Speci men Type: BLOOD SPECIMEN Order[facility] Address: [address] [place] [address] Performed By: #### 1 989-3 #### [facility] CLIA [id number] [address] [place] [address] [place] Chloride [Moles/Vol] 104 mmol/L Normal 97-105 [facility] Comment on above: Order Comment: Speci men Type: BLOOD SPECIMEN Order[facility] Address: [address] [place] [address] Performed By: #### 1 989-3 #### [facility] CLIA [id number] [address] [place] [address] [place] CO2 [Moles/Vol] 21 mmol/L Low 22-30 [facility] Comment on above: Order Comment: Speci men Type: BLOOD SPECIMEN Order[facility] Address: [address] [place] [address] Performed By: #### 1 989-3 #### [facility] CLIA [id number] [address] [place] [id number] [place] Creatinine [Mass/Vol] 0.73 mg/dL Normal 0.58-0.96 [facility] Comment on above: Order Comment: Speci men Type: BLOOD SPECIMEN Order[facility] Address: [address] [place] [address] Performed By: #### 1 989-3 #### [facility] CLIA [id number] [address] [place] [address] [place] Creatinine and Glomerular filtration rate.predicted panel (S/P/Bld) 84 mL/min/1.73m??? Normal >=60 [facility] Comment on above: Order Comment: Sudhakar mera Type: BLOOD SPECIMEN [facility] Address: [address] [place] [address] Result Comment: Audra mated Glomerular Filtration Rate [...] GFR. Performed By: #### 1 989-3 #### [facility] CLIA [id number] [address] [place] [address] [place] Glucose [Mass/Vol] 172 mg/dL High 74-99 [facility] Comment on above: Order Comment: Sudhakar mera Type: BLOOD SPECIMEN [facility] Address: [address] [place] [address] Result Comment: The [place] Diabetes Association (ADA) provides guidance for cutoff [...] Standards of Medical Care in Diabetes 2016, [place] Diabetes Association. Diabetes Care. 2016.39(Suppl 1). Performed By: #### 1 989-3 #### [facility] CLIA [id number] [address] [place] [address] [place] Potassium [Moles/Vol] 4.9 mmol/L Normal 3.7-5.1 [facility] Comment on above: Order Comment: Speci men Type: BLOOD SPECIMEN Order[facility] Address: [address] [place] [address] Performed By: #### 1 989-3 #### [facility] CLIA [id number] [address] [place] [address] [place] Protein [Mass/Vol] 7.1 g/dL Normal 6.3-8.0 [facility] Comment on above: Order Comment: Speci men Type: BLOOD SPECIMEN [facility] Address: [address] [place] [address] Performed By: #### 1 989-3 #### [facility] CLIA [id number] [address] [place] [address] [place] Sodium [Moles/Vol] 138 mmol/L Normal 136-144 [facility] Comment on above: Order Comment: Speci men Type: BLOOD SPECIMEN [facility] Address: [address] [place] [address] Performed By: #### 1 989-3 #### [facility] CLIA [id number] [address] [place] [address] [place] Urea nitrogen [Mass/Vol] 21 mg/dL Normal 7-21 [facility] Comment on above: Order Comment: Speci men Type: BLOOD SPECIMEN [facility] Address: [address] [place] [address] Performed By: #### 1 989-3 #### [facility] CLIA [id number] [facility] [place] [address] [place] Ferritin SerPl-mCncon 2022 Ferritin [Mass/Vol] 16.6 ng/mL Normal 14.7-205.1 [facility] Comment on above: Order Comment: Speci men Type: BLOOD SPECIMENOrdering Facility: [facility] Address: [address] [place], [place] [address] Performed By: #### 2 276-4, 3024-7, 3016-3 ####[facility] [id number] [place] [address] [place] Folate SerPl-mCncon 02-14-20 23 Folate [Mass/Vol] ng/mL Normal >4.7 [facility] Comment on above: Order Comment: Sudhakar mera Type: BLOOD SPECIMENOrdering Facility: [facility] Address: [address] [place] [address] Result Comment: A re sult of > 20 ng/mL is not necessarily indicative of a pathologic or treatable condition: it reflects a limitation of the test methodology. Assay reference range: 4.8 to 24.2 ng/mL. Suitable for detection of folate deficiency. Reference: Folate III (Folate III) [package insert V 1.0 [place]z]. [employer], [place], [place]: April 2015. Performed By: #### 2 132-9, 2284-8 ####[facility] [id number] [address] OF [facility] HbA1c (Bld)on 02-13-2023 Average glucose Estimated from glycated hemoglobin (Bld) [Mass/Vol] 206 mg/dL Normal [facility] Comment on above: Order Comment: Sudhakar mera Type: BLOOD SPECIMENOrdering Facility: [facility] Address: [address] [place] [address] Result Comment: eAG: (Estimated average glucose) is a calculated value from HgbA1c and is claims service representative of the average blood glucose level in the last 2-3 month period. Performed By: #### 5 5454-3 ####[facility] [id number] [place] [address] [place] HbA1c (Bld) [Mass fraction] 8.8 % High 4.3-5.6 [facility] Comment on above: Order Comment: Sudhakar mera Type: BLOOD SPECIMENOrdering Facility: [facility] Address: [address] [place] [address] Result Comment: [place] Diabetes Association guidelines indicate that patients with HgbA1c in the range 5.7-6.4% are at increased risk for development of diabetes, and intervention by lifestyle modification may be beneficial. HgbA1c greater or equal to 6.5% is considered diagnostic of diabetes. Performed By: #### 5 5454-3 ####[facility] [id number] [place] [address] [place] Iron and Iron binding capaci ty panelon 02-13-2023 Iron [Mass/Vol] 29 ug/dL Low 41-186 [facility] Comment on above: Order Comment: Speci men Type: BLOOD SPECIMEN [facility] Address: [address] [place] [address] Performed By: #### 1 989-3 #### [facility] CLIA [id number] [address] [place] [address] [place] Iron binding capacity [Mass/Vol] 418 ug/dL High 232-386 [facility] Comment on above: Order Comment: Speci men Type: BLOOD SPECIMEN [facility] Address: [address] [place] [address] Performed By: #### 1 989-3 #### [facility] CLIA [id number] [address] [place] Iron/TIBC [Molar ratio] 6.9 % Low 15.0-57.0 [facility] Comment on above: Order Comment: Speci men Type: BLOOD SPECIMEN [facility] Address: [address] [place] [address] Performed By: #### 1 989-3 #### [facility] CLIA [id number] [address] [place] [address] [place] Lipid 1996 panelon Cholesterol [Mass/Vol] 118 mg/dL Normal <200 [facility] Comment on above: Order Comment: Speci men Type: BLOOD SPECIMENOrdering Facility: [facility] Address: [address] [place] [address] Result Comment: <200 mg/dL, Desirable 200-239 mg/dL, Borderline high >239 mg/dL, High Performed By: #### 3 051-0, 14321-7, 38304-7, 48326-8 ####[facility] [id number] [place] [address] [place] Cholesterol in HDL [Mass/Vol] 32 mg/dL Low >39 [facility] Comment on above: Order Comment: Speci men Type: BLOOD SPECIMENOrdering Facility: [facility] Address: [address] [place] [address] Result Comment: 40-5 9 mg/dL, Acceptable >59 mg/dL, High: Negative risk factor for coronary heart disease <40 mg/dL, Low: Positive risk factor for coronary heart disease Performed By: #### 3 051-0, 06445-5, 20361-2, 19566-8 ####[facility] [id number] [address] [place] Cholesterol in LDL [Mass/Vol] 63 mg/dL Normal <100 [facility] Comment on above: Order Comment: Sudhakar men Type: BLOOD SPECIMENOrdering Facility: [facility] Address: [address] [place] [address] Result Comment: <100 mg/dL, Optimal 100-129 mg/dL, Near optimal/above optimal 130-159 mg/dL, Borderline high 160-189 mg/dL, High >189 mg/dL, Very high Secondary prevention optimal LDL Cholesterol levels are recommended to be < 70 mg/dL Performed By: #### 3 051-0, 16512-6, 76347-6, 43714-4 ####[facility] [id number] [address] OF [facility] Cholesterol in LDL/Cholesterol in HDL [Mass ratio] 1.97 {ratio} Normal <2.54 [facility] Comment on above: Order Comment: Speci men Type: BLOOD SPECIMENOrdering Facility: [facility] Address: [address] [place] [address] Result Comment: Perico zhao: 1. National Cholesterol Education Program ATP III Guideline At-A-Glance Quick Desk Reference: National Heart, Lung, and Blood [place]. National Institutes of Health. 2001: NIH Publication No. 01-3305. 2. An International Atherosclerosis Society position paper: global recommendations for the management of dyslipidemia: executive summary, Atherosclerosis. 2014: 232(2):410-413. Performed By: #### 3 051-0, 24152-3, 65678-0, 41198-6 ####[facility] [id number] [place] [address] [place] Cholesterol in VLDL [Mass/Vol] 23 mg/dL Normal <30 [facility] Comment on above: Order Comment: Speci men Type: BLOOD SPECIMENOrdering Facility: [facility] Address: [address] [place] [address] Performed By: #### 3 051-0, 51596-6, 00122-7, 39826-2 ####[facility] [id number] [place] [address] [place] Cholesterol non HDL [Mass/Vol] 86 mg/dL Normal <130 [facility] Comment on above: Order Comment: Speci men Type: BLOOD SPECIMENOrdering Facility: [facility] Address: [address] [place] [address] Result Comment: <130 mg/dL, Optimal 130-159 mg/dL, Near optimal/above optimal 160-189 mg/dL, Borderline high 190-219 mg/dL, High >219 mg/dL, Very high Secondary prevention optimal non HDL Cholesterol levels are recommended to be <100 mg/dL Performed By: #### 3 051-0, 21859-3, 33414-1, 90932-7 ####[facility] [id number] [place] [address] [place] Cholesterol.total/Choles terol in HDL [Mass ratio] 3.69 {ratio} Normal <5.10 [facility] Comment on above: Order Comment: Speci men Type: BLOOD SPECIMENOrdering Facility: [facility] Address: [address] [place] [address] Performed By: #### 3 051-0, 21762-2, 94027-4, 72937-3 ####[facility] [id number] [place] [address] [place] FASTING TIME 13 hrs Normal [facility] Comment on above: Order Comment: Speci men Type: BLOOD SPECIMENOrdering Facility: [facility] Address: [address] [place] [address] Performed By: #### 3 051-0, 67756-4, 20916-7, 08399-0 ####[facility] [id number] [place] [address] [place] Triglyceride [Mass/Vol] 113 mg/dL Normal <150 [facility] Comment on above: Order Comment: Speci men Type: BLOOD SPECIMENOrdering Facility: [facility] Address: [address] [place] [address] Result Comment: <150 mg/dL, Normal 150-199 mg/dL, Borderline high 200-499 mg/dL, High >499 mg/dL, Very high Performed By: #### 3 051-0, 01799-4, 63718-0, 75451-9 ####[facility] [id number] [place] [address] [place] T3Free SerPl-ncon 02-14-20 23 Free T3 [Mass/Vol] 2.5 pg/mL Normal 2.3-4.1 [facility] Comment on above: Order Comment: Speci men Type: BLOOD SPECIMENOrdering Facility: [facility] Address: [address] [place] [address] Performed By: #### 3 051-0, 82906-6, 53768-6, 18988-7 ####[facility]CL[facility] [id number] [address] [place] T4 Free SerPl-mCncon 023 Free T4 [Mass/Vol] 1.3 ng/dL Normal 0.9-1.7 [facility] Comment on above: Order Comment: Speci men Type: BLOOD SPECIMENOrdering Facility: [facility] Address: [address] [place] [address] Performed By: #### 2 276-4, 3024-7, 3016-3 ####[facility]IA [id number] [address] [place] TSH SerPl-aCncon 02-13-2023 TSH Qn 4.230 m[IU]/L High 0.270-4.200 [facility] Comment on above: Order Comment: Speci men Type: BLOOD SPECIMENOrdering Facility: [facility] Address: [address] [place] [address] Performed By: #### 2 276-4, 3024-7, 3016-3 ####[facility] [id number] [address] Vit B12 SerPl-mCncon 023 Cobalamin (Vitamin B12) [Mass/Vol] 331 pg/mL Normal 232-1245 [facility] Comment on above: Order Comment: Speci men Type: BLOOD SPECIMENOrdering Facility: [facility] Address: [address] [place] [address] Performed By: #### 2 132-9, 2284-8 ####[facility] [id number] [address] [place] CNPJenna 02-10-2023 CNPN Telephone (INTMWS) STEVE VIEIRA ([id number]) 1945 F Date Time Provider Department 02/10/23 [...] hyperglycemia (HCC) [E11.65] Order(s):CBC [SQCBC] Order #: [id number] FUTURE COMP METABOLIC PANEL [SQCMP] Order #: [id number] FUTURE HGB A1C [JZPEO3M] Order #: [id number] FUTURE LIPID PANEL BASIC [SQLIPB] Order #: [id number] FUTURE ALBUMIN/CREAT RATIO RND UR [SQUACR] Order #: [id number] FUTURE TSH BLD [SQTSH] Order #: [id number] FUTURE T4 FREE/FREE THYROX [SQFT4] Order #: [id number] FUTURE T3 FREE BLD [SQFREET3] Order #: [id number] FUTURE VITAMIN B12 BLOOD [SQB12] Order #: [id number] FUTURE IRON + TIBC [SQIRON] Order #: [id number] FUTURE FOLATE SERUM [SQSERFOL] Order #: [id number] FUTURE FERRITIN BLD [SQFERR] Order #: [id number] FUTURE Prescriptions as of 02/13/2023 - metFORMIN [...] subcutaneously one time a week. Gets through [employer] [facility] PAP. - empagliflozin (JARDIANCE) 25 mg tablet Take 1 tablet by mouth daily with breakfast. Gets through [employer] ([facility]) PAP. - ferrous sulfate 325 mg (65 [...] Status:Closed by Barbara VILLAGOMEZ RN on 02/13/23 [facility] URINE CULTUREon 03-22-2019 Bacteria identified Cx Nom (U) Specimen source XXX: CLEAN VOIDED MIDSTREAM Performed at [place] [address] Service Cmnt XXX-Imp: NONE Performed at [place] [address] CC Number Ur: >100,000 CFU/mL Bacteria identified: Mixture of 3 or more organisms, no one type predominant, suggesting contamination during collection. Recollect if clinically indicated Performed at [address] [address] : FINAL 03/22/2019 [facility] Comment on above: Performed By: #### U ACUL #### [address] [address] C REACTIVE PROTEINon 019 CRP [Mass/Vol] Normal 0-2.0 [facility] Comment on above: Result Comment: 0.3 LESS THAN Performed at [address] [address] Performed By: #### U ACUL #### [address] [address] CKMB Isha 03-21-2019 CK.MB [Mass/Vol] 3.2 ng/mL Normal 0.0-5.0 [facility] Comment on above: Performed By: #### U ACUL #### [facility] [address] [place] [address] CKMB % INDEX Normal 0-3.5 [facility] Comment on above: Result Comment: 1.9 Performed at [facility] [address] [place] [address] Performed By: #### U ACUL #### [facility] [address] [address] CREATINE KINASEon 03-21-2019 CK [Catalytic activity/Vol] Normal 24-195 [facility] Comment on above: Result Comment: 167 Performed at [facility] [address] [place] [address] Performed By: #### C K #### [facility] [address] [address] HEMOGLOBIN A1con 03-21-2019 HbA1c (Bld) [Mass fraction] High 4.0-6.0 [facility] Comment on above: Result Comment: 7.7 [...] mg/dl 10% ............................... 240 mg/dl Performed at [address] [place] [address] Performed By: #### U ACUL #### [facility] [address] [place] [address] HS TROPONIN Ton 03-21-2019 Troponin T.cardiac [Mass/Vol] Normal <15 [facility] Comment on above: Result Comment: 1 Performed at [address] [place] [address] Performed By: #### H STROP #### [address] [address] Result Comment: 13 Sex Specific Reference Range: [...] biotin administration. LDHon 03-21-2019 LDH Normal 91-227 [facility] Comment on above: Result Comment: 205 Performed at [address] [place] [address] Performed By: #### U ACUL #### [facility] [address] [place] [address] SEDIMENTATION RATEon 019 SEDIMENTATION RATE High 0-20 [facility] Comment on above: Result Comment: 39 Performed at [address] [place] [address] Performed By: #### U ACUL #### [facility] [address] [place] [address] TSHon 03-21-2019 TSH Qn Normal 0.27-4.20 [facility] Comment on above: Result Comment: 2.55 Performed at [facility] [address] [place] [address] [place] [address] Performed By: #### U ACUL #### [facility] [address] [place] [address] ANGIO CHESTon 03-20-2019 ANGIO CHEST *FINAL Date of Service: 03/20/2019 21:34 Adm #: [id number] Reading Dr:MITZY Ron Dr: MITZY LARA PROCEDURE: [...] acute pathologic findings are identified. Hiatal hernia. [id number] This report has been produced using speech [...] by/Date: NO ADDENDUM Addendum Electronically Signed by/Date: [facility] BRAIN WO CONTRASTon 03-20-20 19 BRAIN WO CONTRAST *FINAL Date of Service: 03/20/2019 20:05 Adm #: [id number] Reading Dr:MITZY Ron Dr: MITZY LARA PROCEDURE: [...] No acute intracranial pathologic findings are identified. [id number] This report has been produced using speech [...] NO ADDENDUM Addendum Electronically Signed by/Date: Normal [facility] CBC with Diffon 03-20-2019 AB IMMATURE NEUT 0.02 K/UL Normal 0.0-0.1 [facility] Comment on above: Performed By: #### C BCD #### [facility] [address] [facility], [place] [address] ABS BASO 0.02 K/UL Normal 0.00-0.22 [facility] Comment on above: Performed By: #### C BCD #### [facility] [address], [place] [address] ABS EOS 0.02 K/UL Normal 0-0.45 [facility] Comment on above: Performed By: #### C BCD #### [facility] [address], [place] [address] ABS NEUTROPHILS 4.63 K/UL Normal 1.8-7.7 [facility] Comment on above: Performed By: #### C BCD #### [facility] [address], [place] [address] ABS.NEUT.CALCULATED Normal [facility] Comment on above: Result Comment: 4.63 Performed at [facility] [address] [place] [address] Performed By: #### C BCD #### [facility] [address], [place] [address] Basophils/100 WBC (Bld) 0.40 % Normal 0-[address] [facility] Comment on above: Performed By: #### C BCD #### [facility] [address], [place] [address] DIFF TYPE AUTO DIFF Normal [facility] Comment on above: Performed By: #### C BCD #### [facility] [address], [place] [address] Eosinophils/100 WBC (Bld) 0.40 % Normal 0-3 [facility] Comment on above: Performed By: #### C BCD #### [facility] [address], [place] [address] Erythrocyte distribution width (RBC) [Ratio] 15.5 % High 11.7-15.0 [facility] Comment on above: Performed By: #### C BCD #### [facility] [address], [place] [address] Hematocrit (Bld) [Volume fraction] 28.0 % Low 36-44 [facility] Comment on above: Performed By: #### C BCD #### [facility] [address], [place] [address] Hemoglobin (Bld) [Mass/Vol] 8.4 g/dL Low 12.0-15.0 [facility] Comment on above: Performed By: #### C BCD #### [facility] [address], [place] [address] Lymphocytes (Bld) [#/Vol] 0.40 10*3/uL Low 1.2-3.2 [facility] Comment on above: Performed By: #### C BCD #### [facility] [address], [place] [address] Lymphocytes/100 WBC (Bld) 7.30 % Low 20-40 [facility] Comment on above: Performed By: #### C BCD #### [facility] [address], [place] [address] MCH (RBC) [Entitic mass] 26.8 pg Normal 26-34 [facility] Comment on above: Performed By: #### C BCD #### [facility] [address], [place] [address] MCHC (RBC) [Mass/Vol] 30.0 % Low 31-37 [facility] Comment on above: Performed By: #### C BCD #### [facility] [address], [place] [address] MCV (RBC) [Entitic vol] 89.2 fL Normal 80-[address] [facility] Comment on above: Performed By: #### C BCD #### [facility] [address], [place] [address] MEAN PLT VOL 10.7 CU Normal 7.0-12.6 [facility] Comment on above: Performed By: #### C BCD #### [facility] [address], [place] [address] Monocytes (Bld) [#/Vol] 0.36 10*3/uL Normal 0-0.8 [facility] Comment on above: Performed By: #### C BCD #### [facility] [address], [place] [address] Monocytes/100 WBC (Bld) 6.60 % Normal 0-[address] [facility] Comment on above: Performed By: #### C BCD #### [facility] [address], [place] [address] Neutrophils/100 WBC (Bld) 0.40 % Normal 0.0-1.0 [facility] Comment on above: Performed By: #### C BCD #### [facility] [address], [place] [address] Neutrophils/100 WBC (Bld) 84.90 % High 50-70 [facility] Comment on above: Performed By: #### C BCD #### [facility] [address], [place] [address] NRBC'S 0 /100 WBC Normal 0 [facility] Comment on above: Performed By: #### C BCD #### [facility] [address], [place] [address] Platelets (Bld) [#/Vol] 152 10*3/uL Normal 150-450 [facility] Comment on above: Performed By: #### C BCD #### [facility] [address] [place] [address] RBC (Bld) [#/Vol] 3.14 M/UL Low 4.0-4.9 [facility] Comment on above: Performed By: #### C BCD #### [facility] [address] [place] [address] RDW-SD 50.2 FL Normal 37.0-54.0 [facility] Comment on above: Performed By: #### C BCD #### [facility] [address], [place] [address] WBC (Bld) [#/Vol] 5.5 10*3/uL Normal 4.5-11.0 [facility] Comment on above: Performed By: #### C BCD #### [facility] [address], [place] [address] COMPREHENSIVE METABOLIC PANE Fredrick 03-20-2019 Albumin [Mass/Vol] 4.2 g/dL Normal 3.5-5.0 [facility] Comment on above: Performed By: #### C AQUATIC HABITAT BIOLOGIST #### [facility] [address], [place] [address] Albumin/Globulin [Mass ratio] 1.6 {ratio} Normal 1.5-3.0 [facility] Comment on above: Performed By: #### C AQUATIC HABITAT BIOLOGIST #### [facility] [address] [place] [address] ALP [Catalytic activity/Vol] 80 U/L Normal 35-125 [facility] Comment on above: Performed By: #### C AQUATIC HABITAT BIOLOGIST #### [facility] [address], [place] [address] ALT [Catalytic activity/Vol] 13 U/L Normal 5-40 [facility] Comment on above: Performed By: #### C AQUATIC HABITAT BIOLOGIST #### [facility] [address], [place] [address] Anion gap [Moles/Vol] 16 mmol/L Normal 0-19 [facility] Comment on above: Performed By: #### C AQUATIC HABITAT BIOLOGIST #### [facility] [address], [place] [address] AST [Catalytic activity/Vol] 24 U/L Normal 5-40 [facility] Comment on above: Performed By: #### C AQUATIC HABITAT BIOLOGIST #### [facility] [address], [place] [address] Bilirubin [Mass/Vol] 0.4 mg/dL Normal 0.1-1.2 [facility] Comment on above: Performed By: #### C AQUATIC HABITAT BIOLOGIST #### [facility] [address], [place] [address] Calcium [Mass/Vol] 9.1 mg/dL Normal 8.5-10.4 [facility] Comment on above: Performed By: #### C AQUATIC HABITAT BIOLOGIST #### [facility] [address], [place] [address] Chloride [Moles/Vol] 105 mmol/L Normal 97-107 [facility] Comment on above: Performed By: #### C AQUATIC HABITAT BIOLOGIST #### [facility] [address], [place] [address] CO2 [Moles/Vol] 19 mmol/L Low 24-31 [facility] Comment on above: Performed By: #### C AQUATIC HABITAT BIOLOGIST #### [facility] [address], [place] [address] Creatinine [Mass/Vol] 1.1 mg/dL Normal 0.4-1.6 [facility] Comment on above: Performed By: #### C AQUATIC HABITAT BIOLOGIST #### [facility] [address], [place] [address] GFR/1.73 sq M.predicted MDRD (S/P/Bld) [Vol rate/Area] Normal [facility] Comment on above: Result Comment: 51 GFR ml/min/1.73m2 Stage ----- 90 1 60-89 2 30-59 3 15-29 4 <15 5 For -Americans, multiply EGFR result by 1.210 Calculation not validated for patients under 18 years of age. Performed at [facility] [address] [place] [address] Performed By: #### C AQUATIC HABITAT BIOLOGIST #### [facility] [address], [place] [address] Globulin (S) [Mass/Vol] 2.7 g/dL Normal 1.9-3.7 [facility] Comment on above: Performed By: #### C AQUATIC HABITAT BIOLOGIST #### [facility] [address], [place] [address] Glucose [Mass/Vol] 177 mg/dL High 65-99 [facility] Comment on above: Performed By: #### C AQUATIC HABITAT BIOLOGIST #### [facility] [address], [place] [address] Potassium [Moles/Vol] 3.9 mmol/L Normal 3.4-5.1 [facility] Comment on above: Performed By: #### C AQUATIC HABITAT BIOLOGIST #### [facility] [address], [place] [address] Protein [Mass/Vol] 6.9 g/dL Normal 5.9-7.9 [facility] Comment on above: Performed By: #### C AQUATIC HABITAT BIOLOGIST #### [facility] [address], [place] [address] Sodium [Moles/Vol] 140 mmol/L Normal 133-145 [facility] Comment on above: Performed By: #### C AQUATIC HABITAT BIOLOGIST #### [facility] [address], [place] [address] Urea nitrogen [Mass/Vol] 27 mg/dL High 8-25 [facility] Comment on above: Performed By: #### C AQUATIC HABITAT BIOLOGIST #### [facility] [address], [place] [address] Urea nitrogen/Creatinine [Mass ratio] 24.5 RATIO High 8-21 [facility] Comment on above: Performed By: #### C AQUATIC HABITAT BIOLOGIST #### [facility] [address] [facility], [place] [address] D-DIMERon 03-20-2019 D-DIMER High 0.19-0.50 [facility] Comment on above: Result Comment: 1.51 [...] IN PATIENTS RECEIVING ANTI-COAGULATION THERAPY. Performed at [address] [address] Performed By: #### D DMR #### [address] [address] HS TROPONIN Ton 03-20-2019 Troponin T.cardiac [Mass/Vol] Normal <15 [facility] Comment on above: Result Comment: No p revious result Performed at [address] [address] Performed By: #### H STROP #### [address] [address] Result Comment: 12 Sex Specific Reference Range: [...] INR Coag (PPP) [Relative time] Normal 0.86-1.16 [facility] Comment on above: Result Comment: 1.1 INR Theraputic Range: 2.0-3.5 Performed at [address] [address] Performed By: #### P TB #### [address] [address] PT Coag (PPP) [Time] 11.4 s Normal 9.3-12.7 [facility] Comment on above: Performed By: #### P TB #### [address] [address] PT Coag (PPP) [Time] INFORMATION NOT REPORTED TO LABORATORY [facility] Comment on above: Performed By: #### P TB #### [facility] [address], [place] [address] UA-REFLEX TO CULTUREon 03-20 RBC (Bld) [#/Vol] High 0-3 [facility] Comment on above: Result Comment: 85 CORRECTED ON 03/20 AT 2021: PREVIOUSLY REPORTED NONE SEEN Performed By: #### U ACUL #### [facility] [address], [place] [address] BACT Positive [facility] Comment on above: Performed By: #### U ACUL #### [facility] [address], [place] [address] MICROSCOPIC AUTOMATIC MICROSCOPI C URINES [facility] Comment on above: Performed By: #### U ACUL #### [facility] [address], [place] [address] URINE HYALINE CAST 12 /LPF Normal [facility] Comment on above: Performed By: #### U ACUL #### [facility] [address], [place] [address] URINE SQUAMOUS EPI MODERATE Normal [facility] Comment on above: Performed By: #### U ACUL #### [facility] [address], [place] [address] WBC 11 /HPF High 0-3 [facility] Comment on above: Performed By: #### U ACUL #### [facility] [address], [place] [address] Bacteria identified Cx Nom (U) [facility] Comment on above: Result Comment: CULT URE BEING ORDERED BASED ON LEUKOCYTE ESTERASE Performed at [facility] [address] [facility] [place] [address] Performed By: #### U ACUL #### [facility] [address], [place] [address] BILI Negative Normal NEG [facility] Comment on above: Performed By: #### U ACUL #### [facility] [address], [place] [address] BLOOD MODERATE Abnormal NEG [facility] Comment on above: Performed By: #### U ACUL #### [facility] [address], [place] [address] Clarity (U) HAZY [facility] Comment on above: Performed By: #### U ACUL #### [facility] [address], [place] [address] Color (U) YELLOW Normal [facility] Comment on above: Performed By: #### U ACUL #### [facility] [address], [place] [address] GLUC 300 mg/dL Abnormal NEG [facility] Comment on above: Performed By: #### U ACUL #### [facility] [address], [place] [address] KET TRACE Abnormal NEG [facility] Comment on above: Performed By: #### U ACUL #### [facility] [address], [place] [address] LEUK SMALL Abnormal NEG [facility] Comment on above: Performed By: #### U ACUL #### [facility] [address], [place] [address] NIT Negative Normal NEG [facility] Comment on above: Performed By: #### U ACUL #### [facility] [address], [place] [address] pH (U) 5.5 [pH] Normal 4.6-8.0 [facility] Comment on above: Performed By: #### U ACUL #### [facility] [address], [place] [address] PROT 50 mg/dL Abnormal NEG [facility] Comment on above: Performed By: #### U ACUL #### [facility] [address], [place] [address] SP GRAV,URINE 1.031 High 1.005-1.030 [facility] Comment on above: Performed By: #### U ACUL #### [facility] [address], [place] [address] URO 2.0 MG/DL High 0-1.0 [facility] Comment on above: Performed By: #### U ACUL #### [facility] [address], [place] [address] No Panel Information [facility] Vital Signs Date Time Vital Sign Value Performing Clinician Facility 03-08-2025 12:43-0400 Body height 149.[address] Peter Ellis MD Work Phone: [facility] 03-08-2025 12:43-0400 Body weight 84.[address] Peter Ellis MD Work Phone: 4(703)974-097799 [place] [address] 03-08-2025 12:37-0400 Body temperature 97.8 [degF] Dr. Peter Ellis MD Work Phone: 2(241)271-503099 [place] [address] 03-08-2025 12:37-0400 Diastolic blood pressure 71 mm[Hg] Dr. Peter Ellis MD Work Phone: 8(716)766-992999 [place] [address] 03-08-2025 12:37-0400 Heart rate 96 /min Dr. Peter Ellis MD Work Phone: 6(844)843-593799 [place] [address] 03-08-2025 12:37-0400 Respiratory rate 16 /min Dr. Peter Ellis MD Work Phone: 8(745)812-847399 [place] [address] 03-08-2025 12:37-0400 SaO2% (BldA) [Mass fraction] 94 % Dr. Peter Ellis MD Work Phone: 6(382)506-545499 [place] [address] 03-08-2025 12:37-0400 Systolic blood pressure 122 mm[Hg] Dr. Peter Ellis MD Work Phone: 8(755)138-867199 [place] [address] 03-08-2025 06:00-0400 Body mass index (BMI) [Ratio] 37.7 kg/m2 Dr. Peter Ellis MD Work Phone: 3(019)872-685099 [place] [address] 03-05-2025 14:55-0400 Inhaled oxygen flow rate 1 L/min Dr. Peter Ellis MD Work Phone: 7(580)157-615999 [place] [address] 03-04-2025 09:00-0400 Inhaled oxygen concentration 30 % Dr. Peter Ellis MD Work Phone: 3(486)839-138599 [place] [address] 03-03-2025 16:20-0400 Body temperature 101 [degF] Dr. Peter Ellis MD Work Phone: 5(458)728-678499 [place] [address] 03-03-2025 16:20-0400 Diastolic blood pressure 74 mm[Hg] Dr. Peter Ellis MD Work Phone: 0(529)593-935799 [place] [address] 03-03-2025 16:20-0400 Heart rate 112 /min Dr. Peter Ellis MD Work Phone: 2(814)587-620999 [place] [address] 03-03-2025 16:20-0400 Respiratory rate 17 /min Dr. Peter Ellis MD Work Phone: 8(441)185-173299 [place] [address] 03-03-2025 16:20-0400 SaO2% (BldA) [Mass fraction] 100 % Dr. Peter Ellis MD Work Phone: 4(843)692-393199 [place] [address] 03-03-2025 16:20-0400 Systolic blood pressure 127 mm[Hg] Dr. Peter Ellis MD Work Phone: 1(328)480-049099 [place] [address] 03-03-2025 15:22-0400 Inhaled oxygen concentration 60 % Dr. Peter Ellis MD Work Phone: 2(806)765-567899 [place] [address] 03-03-2025 14:20-0400 Inhaled oxygen flow rate 10 L/min Dr. Peter Ellis MD Work Phone: 7(456)744-515899 [place] [address] 03-03-2025 14:11-0400 Body height 149.[address] Peter Ellis MD Work Phone: 7(784)275-679699 [place] [address] 03-03-2025 14:11-0400 Body mass index (BMI) [Ratio] 37.6 kg/m2 Dr. Peter Ellis MD Work Phone: 1(816)473-164899 [place] [address] 03-03-2025 14:11-0400 Body weight 84.[address] Peter Ellis MD Work Phone: 1(118)571-670199 [place] [address] 11-12-2023 14:30-0400 Body temperature 97.59 [degF] Peter Ellis MD Work Phone: [facility] 11-12-2023 14:30-0400 Diastolic blood pressure 72 mm[Hg] Peter Ellis MD Work Phone: [facility] 11-12-2023 14:30-0400 Heart rate 93 /min Peter Ellis MD Work Phone: [facility] 11-12-2023 14:30-0400 Respiratory rate 18 /min Peter Ellis MD Work Phone: [facility] 11-12-2023 14:30-0400 SaO2% (BldA) [Mass fraction] 100 % Peter Ellis MD Work Phone: [facility] 11-12-2023 14:30-0400 Systolic blood pressure 124 mm[Hg] Peter Ellis MD Work Phone: [facility] 08-16-2023 16:38-0500 Body temperature 98.3 [degF] Dr. Peter Ellis Work Phone: [facility] 08-16-2023 16:38-0500 Diastolic blood pressure 57 mm[Hg] Dr. Peter Ellis Work Phone: 2(199)734-455211 [place] [address] 08-16-2023 16:38-0500 Heart rate 75 /min Dr. Peter Ellis Work Phone: 5(625)739-216811 [place] [address] 08-16-2023 16:38-0500 Respiratory rate 16 /min Dr. Peter Ellis Work Phone: 4(804)956-103511 [place] [address] 08-16-2023 16:38-0500 SaO2% (BldA) [Mass fraction] 99 % Dr. Peter Ellis Work Phone: [facility] 08-16-2023 16:38-0500 Systolic blood pressure 118 mm[Hg] Dr. Peter Ellis Work Phone: [facility] 08-16-2023 04:40-0500 Body mass index (BMI) [Ratio] 27.6 kg/m2 Dr. Peter Ellis Work Phone: 9(777)939-050111 [place] [address] 08-16-2023 04:40-0500 Body weight 62.[address] Peter Ellis Work Phone: 9(145)618-346511 [place] [address] 08-15-2023 10:09-0500 Body height 149.[address] Peter Ellis Work Phone: 9(319)776-575499 [place] [address] 08-15-2023 01:21-0500 Body temperature 97.8 [degF] Dr. Peter Ellis Work Phone: [phone] [place] [address] 08-15-2023 01:21-0500 Diastolic blood pressure 68 mm[Hg] Dr. Peter Ellis Work Phone: 8(815)[phone] [place] [address] 08-15-2023 01:21-0500 Heart rate 68 /min Dr. Peter Ellis Work Phone: 2(518)637-735499 [place] [address] 08-15-2023 01:21-0500 Respiratory rate 15 /min Dr. Peter Ellis Work Phone: 2(479)778-049599 [place] [address] 08-15-2023 01:21-0500 SaO2% (BldA) [Mass fraction] 95 % Dr. Peter Ellis Work Phone: 9(542)559-144799 [place] [address] 08-15-2023 01:21-0500 Systolic blood pressure 129 mm[Hg] Dr. Peter Ellis Work Phone: 8(857)776-742799 [place] [address] 08-15-2023 00:16-0500 Body mass index (BMI) [Ratio] 29 kg/m2 Dr. Peter Ellis Work Phone: 8(100)[phone] [place] [address] 08-15-2023 00:16-0500 Body weight 65.[address] Peter Ellis Work Phone: 4(532)[phone] [place] [address] 08-14-2023 22:23-0500 Body height 149.[address] Peter Ellis Work Phone: 7(503)961-448599 [place] [address] 08-12-2023 14:15-0500 Body temperature 99.1 [degF] Dr. Peter Ellis Work Phone: 1(624)939-229699 [place] [address] 08-12-2023 14:15-0500 Diastolic blood pressure 87 mm[Hg] Dr. Peter Ellis Work Phone: 1(339)505-989599 [place] [address] 08-12-2023 14:15-0500 Heart rate 88 /min Dr. Peter Ellis Work Phone: [facility] 08-12-2023 14:15-0500 Respiratory rate 16 /min Dr. Peter Ellis Work Phone: [facility] 08-12-2023 14:15-0500 SaO2% (BldA) [Mass fraction] 98 % Dr. Peter Ellis Work Phone: [facility] 08-12-2023 14:15-0500 Systolic blood pressure 112 mm[Hg] Dr. Peter Ellis Work Phone: [facility] 08-12-2023 12:58-0500 Body height 149.[address] Peter Ellis Work Phone: [facility] 08-12-2023 12:58-0500 Body weight 58.[address] Peter Ellis Work Phone: [facility] 08-09-2023 22:33-0500 Body mass index (BMI) [Ratio] 26.2 kg/m2 Dr. Peter Ellis Work Phone: [facility] 02-28-2023 14:23-0400 Body temperature 97.81 [degF] Peter Ellis MD Work Phone: [facility] 02-28-2023 14:23-0400 Body weight 64.86 kg Peter Ellis MD Work Phone: [facility] 02-28-2023 14:23-0400 Diastolic blood pressure 65 mm[Hg] Peter Ellis MD Work Phone: [facility] 02-28-2023 14:23-0400 Heart rate 115 /min Peter Ellis MD Work Phone: [facility] 02-28-2023 14:23-0400 Respiratory rate 18 /min Peter Ellis MD Work Phone: [facility] 02-28-2023 14:23-0400 SaO2% (BldA) [Mass fraction] 97 % Peter Ellis MD Work Phone: [facility] 02-28-2023 14:23-0400 Systolic blood pressure 104 mm[Hg] Peter Ellis MD Work Phone: [facility] 09-21-2022 17:26-0400 Respiratory rate 18 /min [facility] 09-21-2022 14:33-0400 SaO2% (BldA) [Mass fraction] 98 % [facility] 09-21-2022 14:24-0400 Body height 149.86 cm [facility] 09-21-2022 14:24-0400 Body mass index (BMI) [Ratio] 30.1 kg/m2 [facility] 09-21-2022 14:24-0400 Body temperature 98 [degF] [facility] 09-21-2022 14:24-0400 Body weight 67.69 kg [facility] 09-21-2022 14:24-0400 Diastolic blood pressure 62 mm[Hg] [facility] 09-21-2022 14:24-0400 Heart rate 88 /min [facility] 09-21-2022 14:24-0400 Systolic blood pressure 118 mm[Hg] [facility] 08-07-2022 13:10-0500 Body height 149.86 cm [facility] 08-07-2022 13:10-0500 Body mass index (BMI) [Ratio] 29.2 kg/m2 [facility] 08-07-2022 13:10-0500 Body temperature 97.2 [degF] [facility] 08-07-2022 13:10-0500 Body weight 65.77 kg [facility] 08-07-2022 13:10-0500 Diastolic blood pressure 91 mm[Hg] [facility] 08-07-2022 13:10-0500 Heart rate 91 /min [facility] 08-07-2022 13:10-0500 Respiratory rate 16 /min [facility] 08-07-2022 13:10-0500 SaO2% (BldA) [Mass fraction] 97 % [facility] 08-07-2022 13:10-0500 Systolic blood pressure 153 mm[Hg] [facility] 12-11-2021 14:27-0400 Body weight 68.95 kg Peter Ellis MD Work Phone: [facility] 12-11-2021 14:27-0400 Diastolic blood pressure 68 mm[Hg] Peter Ellis MD Work Phone: [facility] 12-11-2021 14:27-0400 Heart rate 96 /min Peter Ellis MD Work Phone: [facility] 12-11-2021 14:27-0400 SaO2% (BldA) [Mass fraction] 97 % Peter Ellis MD Work Phone: [facility] 12-11-2021 14:27-0400 Systolic blood pressure 120 mm[Hg] Peter Ellis MD Work Phone: [facility] Encounters Encounter Date Encounter Type Care Provider Facility Start: 03-31-2025 ambulatory Peter D Talampas Facilit y:[facility] Start: 03-31-[address] Juve Dejesus MD -[facility] Start: 03-10-2025 ambulatory Peter D Talampas Facilit y:[facility] Start: 03-10-[address] Juve Dejesus MD -[facility] Start: 03-08-2025 Non-patient / Non-visit Dr. Carl Campos [facility] Work Phone: Start: 03-07-2025 Non-patient / Non-visit Dr. Carl Campos [facility] Work Phone: Start: 03-06-2025 Non-patient / Non-visit Dr. Tiffani Marte MD [facility] Work Phone: Start: 03-05-2025 Non-patient / Non-visit Dr. Tiffani Marte MD [facility] Work Phone: Start: 03-04-2025 Non-patient / Non-visit Dr. Tiffani Marte MD [facility] Work Phone: Start: 03-04-2025 Non-patient / Non-visit Dr. Mario smith DO -[facility] Start: 03-03-2025 Non-patient / Non-visit Dr. Desiree miller MD -[place] [facility] Work Phone: Start: 03-03-2025 ambulatory Linda Marte Facility :[facility] Start: 03-03-2025 End: 03-08-2025 Evaluation and management of inpatient Dr. Desiree Trent MD -Intensive Care Unit Work Phone: Start: 12-14-2024 End: 12-14-[address] Peter Ellis MD Work Phone: -[facility] Start: 12-14-2024 End: 12-14-[address] Juve Dejesus MD -[facility] Start: 12-14-[address] Juve Dejesus MD -[facility] Start: 12-14-2024 End: 12-14-2024 ambulatory Peter Devan Talampvadim Facility:[facility] Start: 10-26-2024 End: 10-26-2024 ambulatory Peter D Talampas Facility:[facility] Start: 09-20-2024 End: 09-20-[address] Peter Ellis MD Work Phone: [facility] Work Phone: Start: 09-20-2024 End: 09-20-[address] Darcy Elias MD -[facility] Start: 09-20-2024 End: 09-20-2024 ambulatory Peter D Talampas Facility:[facility] Start: 06-21-2024 ambulatory Darcy Alexanderi ty:[facility] Start: 06-21-[address] Darcy Elias MD -[facility] Start: 11-25-2023 Telephone encounter Peter ortega MD Work Phone: [facility] [place] Comment on above: Medication Problem Start: 11-14-2023 Telephone encounter Sherwin BALLESTEROS Navigation Start: 11-13-2023 Telephone encounter Peter ortega MD Work Phone: [facility] [place] Comment on above: Insurance Authorizat ion (pilar) Start: 11-12-2023 End: 11-12-2023 ambulatory PETER ELLIS Facility:[facility] Start: 11-12-2023 End: 11-12-2023 Office outpatient visit [...] Start: 10-31-2023 End: 10-31-2023 ambulatory ORIN SOSA Facility:[facility] Start: 09-05-2023 End: 09-05-[address] Peter Ellis Work Phone: [facility] Work Phone: Start: 09-05-2023 End: 09-05-[address] Peter Ellis Work Phone: [facility]-Ultrasound, [facility] Work Phone: Start: 08-27-2023 Telephone encounter Orin Abrahan er HEALTH AND FITNESS PROFESSOR.TREE AND SHRUB TECHNICIAN Work Phone: [facility] [place] Comment on above: Results Start: 08-25-2023 End: 08-25-2023 ambulatory [facility] Facility:[facility] Start: 08-16-2023 Non-patient / Non-visit Dr. Isabela Ellis Work Phone: [facility] Work Phone: Start: 08-15-2023 End: 08-16-2023 Evaluation and management of inpatient Dr. Peter Ellis Work Phone: [facility]-Medical Surgical 3 Work Phone: Start: 08-14-2023 Telephone encounter Peter ortega MD Work Phone: [facility] [place] Comment on above: SW Update Start: 08-13-2023 Patient Outreach Peter fierro MD Work Phone: [facility] [place] Comment on above: Transition Of Care [facility] HH, verbal order Start: 08-12-2023 Non-patient / Non-visit Dr. Isabela Ellis Work Phone: [facility] Work Phone: Start: 08-11-2023 Non-patient / Non-visit Dr. Isabela Ellis Work Phone: [facility] Work Phone: Start: 08-11-2023 Telephone encounter Peter ortega MD Work Phone: [facility] [place] Comment on above: HH Verbal orders Start: 08-10-2023 Non-patient / Non-visit Dr. Isabela Ellis Work Phone: [facility] Work Phone: Start: 08-09-2023 Non-patient / Non-visit Dr. Isabela Ellis Work Phone: [facility] Work Phone: Start: 08-09-2023 End: 08-12-2023 Evaluation and management of inpatient [facility]. [facility]: Start: 07-04-2023 End: 07-04-2023 ambulatory PETER ELLIS Facility:[facility] Start: 04-21-2023 Telephone encounter Sherwin BALLESTEROS Navigation [...] Start: 02-28-2023 End: 02-28-2023 ambulatory PETER ELLIS Facility:[facility] Start: 02-13-2023 End: 02-13-2023 ambulatory PETER ELLIS Facility:[facility] Start: 02-10-2023 Telephone encounter Peter ortega MD Work Phone: [facility] [place] Comment on above: Patient Update Start: 09-21-2022 End: 09-21-2022 [facility] Start: 09-12-2022 Telephone encounter Jadon eden [facility] Work Phone: [facility] Comment on above: Adherence Packaging Start: 09-12-2022 End: 09-12-2022 ambulatory J[facility]on [facility] Work Phone: [facility] Comment on above: Medication managemen t (Primary Dx); Type 2 diabetes mellitus without complication, without long-term current use of insulin (HCC); Hyperlipidemia, unspecified hyperlipidemia type Start: 09-12-2022 End: 09-12-2022 Telemedicine consultation with patient Jadon Delgado [facility] Work Phone: [facility] Start: 08-07-2022 End: 08-07-2022 [facility] Start: 07-25-2022 End: 07-25-2022 Patient encounter procedure Jadon [facility] Work Phone: [facility] Comment on above: Type 2 diabetes angelica itus without complication, without long- term current use of insulin (HCC) (Primary Dx); Medication management Start: 07-09-2022 Telephone encounter Peter ortega MD Work Phone: [facility] [place] Comment on above: pt assistance moi resendiz Start: 06-20-2022 Telephone encounter Sherwin Simmons Comment on above: Social Work Services Start: 06-20-2022 End: 06-20-2022 Patient encounter procedure Jadon Delgado [facility] Work Phone: [facility] Comment on above: Controlled type 2 di abetes mellitus without complication, without long-term current use of insulin (HCC) (Primary Dx); Medication management Start: 05-30-2022 Telephone encounter Jadon eden [facility] Work Phone: [facility] Comment on above: Forms ([employer] PAP Application renewal 2022) Start: 05-17-2022 Refill Peter martin MD Work Phone: [facility] [place] Comment on above: Refill Request Start: 04-29-2022 Telephone encounter Jadon eden [facility] Work Phone: [facility] Comment on above: Appointment Start: 04-16-2022 Telephone encounter Ceci Mehta on [facility] Comment on above: Primary Care Pharmac y Appt. Start: 01-09-2022 End: 01-09-2022 Patient encounter procedure Harsha Ortiz MD Work Phone: Ophthalmology Comment on above: Combined forms of ag e-related cataract of both eyes (Primary Dx); Type 2 diabetes mellitus without retinopathy (HCC); Bya-szj-kqykanlfrxk corneal dystrophy of both eyes Start: 12-11-2021 End: 12-11-2021 Office outpatient visit 25 minutes Peter Ellis MD Work Phone: [facility] [place] Comment on above: Uncontrolled type 2 diabetes mellitus with hyperglycemia (HCC) (Primary Dx); Recurrent kidney stones; Esophageal reflux; Depression, unspecified depression type; Hyperlipidemia, unspecified hyperlipidemia type; Acquired hypothyroidism; B12 deficiency; Encounter for long-term current use of medication; Iron deficiency anemia, unspecified iron deficiency anemia type Start: 09-19-2021 Telephone encounter Maciej Lopez [facility] Work Phone: [facility] Comment [...] HCV Quant by PCR testing - HCVPCR [id number] Non Reactive: < 0.8 Equivocal: >/= 0.8 [...] Phone: Start: 03-03-[address] Petre Ellis MD Work Phone: Start: 03-03-2025 SARS-CoV-2, [...] Activity Detail Author Start: 03-08-2025 Patient discharge [facility] Start: 03-08-2025 [facility] Start: 03-06-2025 Application of intermittent pneumatic compression device [facility] Start: 03-06-2025 Consultation [facility] Start: 03-04-2025 Respiratory therapy [facility] Start: 03-04-2025 [facility] Start: 03-04-2025 Speech therapy assessment [facility] Start: 03-04-2025 Inhalation therapy procedure [facility] Start: 03-03-2025 Following clinical p athway protocol [facility] Start: 03-03-2025 Assessment of risk o f venous thromboembolism [facility] Start: 03-03-2025 Care regimes management [facility] Start: 03-03-2025 Catheterization of vein [facility] Start: 03-03-2025 Consultation [facility] Start: 03-03-2025 Determination of Luis hmond Agitation Sedation Scale (RASS) score with assessment for d [facility] Start: 03-03-2025 Elevation of head of bed [facility] Start: 03-03-2025 Insertion of cathete r into peripheral vein [facility] Start: 03-03-2025 Measuring intake and output [facility] Start: 03-03-2025 Mouth care [facility] Start: 03-03-2025 Notification of physician [facility] Start: 03-03-2025 Providing care accor ding to standard [facility] Start: 03-03-2025 Referral for physica l therapy [facility] Start: 03-03-2025 Referral to occupati onal therapist [facility] Start: 03-03-2025 Referral to service [facility] Start: 03-03-2025 Tracheostomy care [facility] Start: 03-03-2025 Trial for daily interruption of sedation during mechanically assisted ventilation [facility] Start: 03-03-2025 Vital signs measurements [facility] Start: 03-03-2025 Respiratory therapy [facility] Start: 03-03-2025 End: 03-03-2025 [facility] Start: 03-03-2025 Admission procedure [facility] Start: 03-03-2025 Hospital admission, emergency, from emergency room, medical nature [facility] Start: 03-03-2025 Computed tomography of abdomen and pelvis with intravenous contrast Abdomen/Pelvis W IV Cont ONLY [facility] Start: 03-03-2025 Airway suction technique [facility] Start: 03-03-2025 Creatine kinase [Enz ymatic activity/volume] in Serum or Plasma [facility] Start: 03-03-2025 Triglycerides measurement [facility] Start: 03-03-2025 Consultation [facility] Start: 03-03-2025 End: 03-03-2025 [facility] Start: 03-03-2025 Bacteria identified in Blood by Culture Blood Culture [facility] Start: 03-03-2025 Bacteria identified in Urine by Culture Urine Culture [facility] Start: 03-03-2025 Microscopic observat ion [Identifier] in Unspecified specimen by Gram stain [facility] Start: 03-03-2025 Respiratory Culture Respiratory Cult ure [facility] Start: 03-03-2025 Consultation [facility] Start: 03-03-2025 Patient referral to dietitian [facility] Start: 03-03-2025 [facility] Start: 11-11-2024 Annual PCP Team Recycling Coordinator debbie Disease Visit Annual PCP Team Chronic Disease Visit [facility] Start: 08-25-2024 Annual PCP Team Recycling Coordinator debbie Disease Visit Annual PCP Team Chronic Disease Visit [facility] Start: 02-29-2024 ANNUAL PCP TEAM SUPERVISOR [employer] DEBBIE DISEASE VISIT ANNUAL PCP TEAM CHRONIC DISEASE VISIT [facility] Start: 02-14-2024 Hepatitis B screening URINE ALBUMIN:CREATININE RATIO [facility] Start: 02-14-2024 Hepatitis B surface antibody level LDL CHOLESTEROL [facility] Start: 01-31-2024 Hemoglobin A1c measurement HbA1C [facility] Start: 11-23-2023 Hemoglobin A1c measurement HbA1C [facility] Start: 11-12-2023 End: 11-12-2023 Patient encounter procedure 11/12/2023 2:00 PM EDT Office Visit [facility] [place] [address] [place] [address] Peter Ellis MD [address] [place] [address] 4 month follow up [facility] [place] Comment on above: 4 month follow up Start: 10-31-2023 End: 01-30-2024 Comprehensive metabolic 2000 panel - Serum or Plasma [facility] Work Phone: Comment on above: Expected: 10/31/2023 , Expires: 01/30/2024 Start: 10-31-2023 End: 01-30-2024 Ferritin [Mass/volume] in Serum or Plasma [facility] Comment on above: Expected: 10/31/2023 , Expires: 01/30/2024 Start: 10-31-2023 End: 01-30-2024 Hemoglobin A1c in Blood [facility] Comment on above: Expected: 10/31/2023 , Expires: 01/30/2024 Start: 10-31-2023 End: 01-30-2024 Iron and Iron binding capacity panel - Serum or Plasma [facility] Comment on above: Expected: 10/31/2023 , Expires: 01/30/2024 Start: 10-31-2023 End: 01-30-2024 Thyrotropin [Units/volume] in Serum or Plasma [facility] Comment on above: Expected: 10/31/2023 , Expires: 01/30/2024 Start: 10-31-2023 End: 01-30-2024 Thyroxine (T4) free [Mass/volume] in Serum or Plasma [facility] Comment on above: Expected: 10/31/2023 , Expires: 01/30/2024 Start: 10-31-2023 End: 01-30-2024 Triiodothyronine (T3) Free [Mass/volume] in Serum or Plasma [facility] Comment on above: Expected: 10/31/2023 , Expires: 01/30/2024 Start: 10-03-2023 Hemoglobin A1c measurement HbA1C [facility] Start: 08-16-2023 Patient discharge [facility] Start: 08-15-2023 Application of intermittent pneumatic compression device [facility] Start: 08-15-2023 Following clinical p athway protocol [facility] Start: 08-15-2023 Assessment of risk o f venous thromboembolism [facility] Start: 08-15-2023 Insertion of cathete r into peripheral vein [facility] Start: 08-15-2023 Measuring intake and output [facility] Start: 08-15-2023 Oxygen therapy [facility] Start: 08-15-2023 Providing care accor ding to standard [facility] Start: 08-15-2023 Provision of activit y privileges [facility] Start: 08-15-2023 Referral to occupati onal therapist [facility] Start: 08-15-2023 Referral to service [facility] Start: 08-15-2023 [facility] Start: 08-15-2023 Verification routine [facility] Start: 08-15-2023 Admission procedure [facility] Start: 08-15-2023 Hospital admission, emergency, from emergency room, medical nature [facility] Start: 08-15-2023 [facility] Start: 08-15-2023 Consultation [facility] Start: 08-14-2023 [facility] Start: 08-14-2023 Bacteria identified in Urine by Culture [facility] Start: 08-14-2023 Urine culture Urine Culture [facility] Start: 08-12-2023 Patient discharge [facility] Start: 08-12-2023 Referral to service [facility] Start: 08-11-2023 Administration of bl ood product [facility] Start: 08-11-2023 Referral to service [facility] Start: 08-09-2023 [facility] Start: 08-09-2023 [facility] Start: 08-09-2023 Following clinical p athway protocol [facility] Start: 08-09-2023 Ambulation without limitation [facility] Start: 08-09-2023 Assessment of risk o f venous thromboembolism [facility] Start: 08-09-2023 Care regimes management [facility] Start: 08-09-2023 Inhalation therapy procedure [facility] Start: 08-09-2023 Insertion of cathete r into peripheral vein [facility] Start: 08-09-2023 Notification of physician [facility] Start: 08-09-2023 Providing care accor ding to standard [facility] Start: 08-09-2023 Referral to occupati onal therapist [facility] Start: 08-09-2023 Referral to service [facility] Start: 08-09-2023 [facility] Start: 08-09-2023 Admission procedure [facility] Start: 08-09-2023 [facility] Start: 08-09-2023 Consultation [facility] Start: 08-09-2023 [facility] Start: 2023 End: 08-30-2023 25-hydroxyvitamin D3 [Mass/volume] in Serum or Plasma VITAMIN D 25 HYDROXY Lab Routine Vitamin D deficiency Expected: 2023 (Approximate), Expires: 08/30/2023 [facility] Work Phone: Comment on above: Expected: 2023 (Approximate), Expires: 08/30/2023 Start: 2023 Advance Directive Discussion Advance Directive Discussion [facility] Start: 2023 Behavioral Health Screening Behavioral Health Screening [facility] Start: 2023 End: 08-30-2023 CBC panel - Blood by Automated count CBC Lab Routine Encounter for long-term current use of medication Expected: 2023 (Approximate), Expires: 08/30/2023 [facility] Work Phone: Comment on above: Expected: 2023 (Approximate), Expires: 08/30/2023 Start: 2023 End: 08-30-2023 Comprehensive metabolic 2000 panel - Serum or Plasma COMP METABOLIC PANEL Lab Routine Encounter for long-term current use of medication Expected: 2023 (Approximate), Expires: 08/30/2023 [facility] Work Phone: Comment on above: Expected: 2023 (Approximate), Expires: 08/30/2023 Start: 2023 Depression Assessment Depression Ass essment [facility] Start: 2023 End: 08-30-2023 Hemoglobin A1c in Blood HGB A1C Lab Routine Type 2 diabetes mellitus without complication, without long-term current use of insulin (HCC) Expected: 2023 (Approximate), Expires: 08/30/2023 [facility] Work Phone: Comment on above: Expected: 2023 (Approximate), Expires: 08/30/2023 Start: 2023 End: 08-30-2023 Thyrotropin [Units/volume] in Serum or Plasma TSH BLD Lab Routine Acquired hypothyroidism Expected: 2023 (Approximate), Expires: 08/30/2023 [facility] Work Phone: Comment on above: Expected: 2023 (Approximate), Expires: 08/30/2023 Start: 2023 End: 08-30-2023 Thyroxine (T4) free [Mass/volume] in Serum or Plasma T4 FREE/FREE THYROX Lab Routine Acquired hypothyroidism Expected: 2023 (Approximate), Expires: 08/30/2023 [facility] Work Phone: Comment on above: Expected: 2023 (Approximate), Expires: 08/30/2023 Start: 2023 End: 08-30-2023 Triiodothyronine (T3) Free [Mass/volume] in Serum or Plasma T3 FREE BLD Lab Routine Acquired hypothyroidism Expected: 2023 (Approximate), Expires: 08/30/2023 [facility] Work Phone: Comment on above: Expected: 2023 (Approximate), Expires: 08/30/2023 Start: 05-16-2023 Hemoglobin A1c/Hemoglobin.total in Blood HBA1C [facility] Start: 04-15-2023 ANNUAL PCP TEAM SUPERVISOR [employer] DEBBIE DISEASE VISIT ANNUAL PCP TEAM CHRONIC DISEASE VISIT [facility] Start: 03-28-2023 End: 05-28-2023 CBC W Auto Differential panel - Blood CBC + DIFF Lab Routine Iron deficiency anemia, unspecified iron deficiency anemia type Expected: 03/28/2023 (Approximate), Expires: 05/28/2023 [facility] Work Phone: Comment on above: Expected: 03/28/2023 (Approximate), Expires: 05/28/2023 Start: 03-28-2023 End: 05-28-2023 Cobalamin (Vitamin B12) [Mass/volume] in Serum or Plasma VITAMIN B12 BLOOD Lab Routine B12 deficiency Expected: 03/28/2023 (Approximate), Expires: 05/28/2023 [facility] Work Phone: Comment on above: Expected: 03/28/2023 (Approximate), Expires: 05/28/2023 Start: 03-28-2023 End: 05-28-2023 Ferritin [Mass/volume] in Serum or Plasma FERRITIN BLD Lab Routine Iron deficiency anemia, unspecified iron deficiency anemia type Expected: 03/28/2023 (Approximate), Expires: 05/28/2023 [facility] Work Phone: Comment on above: Expected: 03/28/2023 (Approximate), Expires: 05/28/2023 Start: 03-28-2023 End: 05-28-2023 Iron and Iron binding capacity panel - Serum or Plasma IRON + TIBC Lab Routine Iron deficiency anemia, unspecified iron deficiency anemia type Expected: 03/28/2023 (Approximate), Expires: 05/28/2023 [facility] Work Phone: Comment on above: Expected: 03/28/2023 (Approximate), Expires: 05/28/2023 Start: 02-28-2023 Covid-19 Vaccine ( season) Covid-19 Vaccine ( season) [facility] Start: 02-28-2023 Influenza vaccination [facility] Start: 02-12-2023 End: 04-14-2023 ALBUMIN/CREAT RATIO RND UR ALBUMIN/CREAT RATIO RND UR Lab Routine Uncontrolled type 2 diabetes mellitus with hyperglycemia (HCC) Expected: 02/12/2023, Expires: 04/14/2023 [facility] Work Phone: Comment on above: Expected: 02/12/2023 , Expires: 04/14/2023 Start: 02-12-2023 End: 04-14-2023 Cobalamin (Vitamin B12) [Mass/volume] in Serum or Plasma VITAMIN B12 BLOOD Lab Routine B12 deficiency Expected: 02/12/2023, Expires: 04/14/2023 [facility] Work Phone: Comment on above: Expected: 02/12/2023 , Expires: 04/14/2023 Start: 02-12-2023 End: 04-14-2023 Comprehensive metabolic 2000 panel - Serum or Plasma COMP METABOLIC PANEL Lab Routine Uncontrolled type 2 diabetes mellitus with hyperglycemia (HCC) Expected: 02/12/2023, Expires: 04/14/2023 [facility] Work Phone: Comment on above: Expected: 02/12/2023 , Expires: 04/14/2023 Start: 02-12-2023 End: 04-14-2023 Ferritin [Mass/volume] in Serum or Plasma FERRITIN BLD Lab Routine Iron deficiency anemia, unspecified iron deficiency anemia type Expected: 02/12/2023, Expires: 04/14/2023 [facility] Work Phone: Comment on above: Expected: 02/12/2023 , Expires: 04/14/2023 Start: 02-12-2023 End: 04-14-2023 Folate [Mass/volume] in Serum or Plasma FOLATE SERUM Lab Routine B12 deficiency Iron deficiency anemia, unspecified iron deficiency anemia type Expected: 02/12/2023, Expires: 04/14/2023 [facility] Work Phone: Comment on above: Expected: 02/12/2023 , Expires: 04/14/2023 Start: 02-12-2023 End: 04-14-2023 Hemoglobin A1c in Blood HGB A1C Lab Routine Uncontrolled type 2 diabetes mellitus with hyperglycemia (HCC) Expected: 02/12/2023, Expires: 04/14/2023 [facility] Work Phone: Comment on above: Expected: 02/12/2023 , Expires: 04/14/2023 Start: 02-12-2023 End: 04-14-2023 Iron and Iron binding capacity panel - Serum or Plasma IRON + TIBC Lab Routine Iron deficiency anemia, unspecified iron deficiency anemia type Expected: 02/12/2023, Expires: 04/14/2023 [facility] Work Phone: Comment on above: Expected: 02/12/2023 , Expires: 04/14/2023 Start: 02-12-2023 End: 04-14-2023 Lipid 1996 panel - Serum or Plasma LIPID PANEL BASIC Lab Routine Hyperlipidemia, unspecified hyperlipidemia type Uncontrolled type 2 diabetes mellitus with hyperglycemia (HCC) Expected: 02/12/2023, Expires: 04/14/2023 [facility] Work Phone: Comment on above: Expected: 02/12/2023 , Expires: 04/14/2023 Start: 02-12-2023 End: 04-14-2023 Thyrotropin [Units/volume] in Serum or Plasma TSH BLD Lab Routine Acquired hypothyroidism Expected: 02/12/2023, Expires: 04/14/2023 [facility] Work Phone: Comment on above: Expected: 02/12/2023 , Expires: 04/14/2023 Start: 02-12-2023 End: 04-14-2023 Thyroxine (T4) free [Mass/volume] in Serum or Plasma T4 FREE/FREE THYROX Lab Routine Acquired hypothyroidism Expected: 02/12/2023, Expires: 04/14/2023 [facility] Work Phone: Comment on above: Expected: 02/12/2023 , Expires: 04/14/2023 Start: 02-12-2023 End: 04-14-2023 Triiodothyronine (T3) Free [Mass/volume] in Serum or Plasma T3 FREE BLD Lab Routine Acquired hypothyroidism Expected: 02/12/2023, Expires: 04/14/2023 [facility] Work Phone: Comment on above: Expected: 02/12/2023 , Expires: 04/14/2023 Start: 12-11-2022 ANNUAL PCP TEAM SUPERVISOR [employer] DEBBIE DISEASE VISIT ANNUAL PCP TEAM CHRONIC DISEASE VISIT [facility] Start: 12-06-2022 Hepatitis B surface antibody level LDL CHOLESTEROL [facility] Start: 09-21-2022 CT of head without contrast Brain/Head without Contrast [facility] Start: 09-21-2022 CT Unspecified body region WO contrast [facility] Start: 09-12-2022 End: 11-12-2022 Hemoglobin A1c in Blood HGB A1C Lab Routine Type 2 diabetes mellitus without complication, without long-term current use of insulin (HCC) Expected: 09/12/2022, Expires: 11/12/2022 [facility] Work Phone: Comment on above: Expected: 09/12/2022 , Expires: 11/12/2022 Start: 09-12-2022 End: 11-12-2022 Thyrotropin [Units/volume] in Serum or Plasma TSH BLD Lab Routine Acquired hypothyroidism Expected: 09/12/2022, Expires: 11/12/2022 [facility] Work Phone: Comment on above: Expected: 09/12/2022 , Expires: 11/12/2022 Start: 08-16-2022 COVID-19 VACCINE (5 - Pfizer series) COVID-19 VACCINE (5 - Pfizer series) [facility] Start: 08-13-2022 Adult depression scr eening assessment DEPRESSION SCREENING [facility] Start: 08-13-2022 ANNUAL PCP TEAM SUPERVISOR [employer] DEBBIE DISEASE VISIT ANNUAL PCP TEAM CHRONIC DISEASE VISIT [facility] Start: 08-08-2022 End: 10-08-2022 ALBUMIN/CREAT RATIO RND UR ALBUMIN/CREAT RATIO RND UR Lab Routine Type 2 diabetes mellitus without complication, without long-term current use of insulin (HCC) Expected: 08/08/2022, Expires: 10/08/2022 [facility] Work Phone: Comment on above: Expected: 08/08/2022 , Expires: 10/08/2022 Start: 08-08-2022 End: 10-08-2022 Basic metabolic 2000 panel - Serum or Plasma BASIC METABOLIC PNL Lab Routine Type 2 diabetes mellitus without complication, without long-term current use of insulin (HCC) Expected: 08/08/2022, Expires: 10/08/2022 [facility] Work Phone: Comment on above: Expected: 08/08/2022 , Expires: 10/08/2022 Start: 08-08-2022 Hepatitis B screening URINE ALBUMIN:CREATININE RATIO [facility] Start: 07-04-2022 End: 09-03-2022 Hemoglobin A1c in Blood HGB A1C Lab Routine Controlled type 2 diabetes mellitus without complication, without long-term current use of insulin (HCC) Expected: 07/04/2022, Expires: 09/03/2022 [facility] Work Phone: Comment on above: Expected: 07/04/2022 , Expires: 09/03/2022 Start: 07-04-2022 Hemoglobin A1c/Hemoglobin.total in Blood HBA1C [facility] Start: 2022 ADVANCE DIRECTIVE DISCUSSION ADVANCE DIRECTIVE DISCUSSION [facility] Start: 2022 DEPRESSION ASSESSMENT DEPRESSION ASS ESSMENT [facility] Start: 04-12-2022 End: 06-12-2022 CBC panel - Blood by Automated count CBC Lab Routine Iron deficiency anemia, unspecified iron deficiency anemia type Expected: 04/12/2022 (Approximate), Expires: 06/12/2022 [facility] Work Phone: Comment on above: Expected: 04/12/2022 (Approximate), Expires: 06/12/2022 Start: 04-12-2022 End: 06-12-2022 Cobalamin (Vitamin B12) [Mass/volume] in Serum or Plasma VITAMIN B12 BLOOD Lab Routine B12 deficiency Expected: 04/12/2022 (Approximate), Expires: 06/12/2022 [facility] Work Phone: Comment on above: Expected: 04/12/2022 (Approximate), Expires: 06/12/2022 Start: 04-12-2022 End: 06-12-2022 Comprehensive metabolic 2000 panel - Serum or Plasma COMP METABOLIC PANEL Lab Routine Uncontrolled type 2 diabetes mellitus with hyperglycemia (HCC) Expected: 04/12/2022 (Approximate), Expires: 06/12/2022 [facility] Work Phone: Comment on above: Expected: 04/12/2022 (Approximate), Expires: 06/12/2022 Start: 04-12-2022 End: 06-12-2022 Hemoglobin A1c in Blood HGB A1C Lab Routine Uncontrolled type 2 diabetes mellitus with hyperglycemia (HCC) Expected: 04/12/2022 (Approximate), Expires: 06/12/2022 [facility] Work Phone: Comment on above: Expected: 04/12/2022 (Approximate), Expires: 06/12/2022 Start: 04-12-2022 End: 06-12-2022 Iron and Iron binding capacity panel - Serum or Plasma IRON + TIBC Lab Routine Iron deficiency anemia, unspecified iron deficiency anemia type Expected: 04/12/2022 (Approximate), Expires: 06/12/2022 [facility] Work Phone: Comment on above: Expected: 04/12/2022 (Approximate), Expires: 06/12/2022 Start: 04-12-2022 End: 06-12-2022 Thyrotropin [Units/volume] in Serum or Plasma TSH BLD Lab Routine Acquired hypothyroidism Expected: 04/12/2022 (Approximate), Expires: 06/12/2022 [facility] Work Phone: Comment on above: Expected: 04/12/2022 (Approximate), Expires: 06/12/2022 Start: 04-12-2022 End: 06-12-2022 Thyroxine (T4) free [Mass/volume] in Serum or Plasma T4 FREE/FREE THYROX Lab Routine Acquired hypothyroidism Expected: 04/12/2022 (Approximate), Expires: 06/12/2022 [facility] Work Phone: Comment on above: Expected: 04/12/2022 (Approximate), Expires: 06/12/2022 Start: 04-03-2022 Glaucoma screening Dilated Retinal E xam [facility] Start: 04-03-2022 Hepatitis C antibody , confirmatory test DILATED RETINAL EXAM [facility] Start: 03-08-2022 Hemoglobin A1c/Hemoglobin.total in Blood HBA1C [facility] Start: 02-28-2022 Influenza vaccination INFLUENZA (#1) [facility] Start: 01-19-2022 3 comp foot exam completed DIABETIC FOOT EXAM [facility] Start: 01-19-2022 Diabetic foot examination Diabetic F oot Exam [facility] Start: 01-19-2022 Urine microalbumin profile DTA P,TDAP,TD (2 - Td or Tdap) [facility] Comment on above: Postponed from 02/24 (Declined at this time) Start: 11-05-2021 Hemoglobin A1c/Hemoglobin.total in Blood HBA1C [facility] Start: 09-21-2021 Hepatitis B surface antibody level LDL CHOLESTEROL [facility] Start: 09-15-2021 COVID-19 VACCINE (4 - Booster for Pfizer series) COVID-19 VACCINE (4 - Booster for Pfizer series) [facility] Start: 2021 ADVANCE DIRECTIVE DISCUSSION ADVANCE DIRECTIVE DISCUSSION [facility] Start: 2021 DEPRESSION ASSESSMENT DEPRESSION ASS ESSMENT [facility] Start: 02-24-2017 Urine microalbumin profile [facility] Start: 2003 Hepatitis B Vaccine (1 of 3 - Risk 3-dose series) Hepatitis B Vaccine (1 of 3 - Risk 3-dose series) [facility] Start: 2003 RSV Vaccine (1 - 1-d ose 60+ series) RSV Vaccine (1 - 1-dose 60+ series) [facility] ALBUMIN/CREAT RATIO RND UR ALBUM IN/CREAT RATIO RND UR Lab Routine Uncontrolled type 2 diabetes mellitus with hyperglycemia (HCC) 02/13/2023 9:53 AM EDT [facility] Work Phone: Bacteria identified in Sputum by Respiratory culture [facility] Cobalamin (Vitamin B 12) [Mass/volume] in Serum or Plasma VITAMIN B12 BLOOD Lab Routine B12 deficiency 02/13/2023 9:53 AM EDT [facility] Work Phone: Comprehensive metabo lic 2000 panel - Serum or Plasma COMP METABOLIC PANEL Lab Routine Uncontrolled type 2 diabetes mellitus with hyperglycemia (HCC) 02/13/2023 9:53 AM EDT [facility] Work Phone: Ferritin [Mass/volum e] in Serum or Plasma FERRITIN BLD Lab Routine Iron deficiency anemia, unspecified iron deficiency anemia type 02/13/2023 9:53 AM EDT [facility] Work Phone: Folate [Mass/volume] in Serum or Plasma FOLATE SERUM Lab Routine B12 deficiency Iron deficiency anemia, unspecified iron deficiency anemia type 02/13/2023 9:53 AM EDT [facility] Work Phone: Hemoglobin A1c in Blood HGB A1C Lab Routine Uncontrolled type 2 diabetes mellitus with hyperglycemia (HCC) 02/13/2023 9:53 AM T [facility] Work Phone: Iron and Iron bindin g capacity panel - Serum or Plasma IRON + TIBC Lab Routine Iron deficiency anemia, unspecified iron deficiency anemia type 02/13/2023 9:53 AM T [facility] Work Phone: Lipid 1996 panel - S edgardo or Plasma LIPID PANEL BASIC Lab Routine Hyperlipidemia, unspecified hyperlipidemia type Uncontrolled type 2 diabetes mellitus with hyperglycemia (HCC) 02/13/2023 9:53 AM [facility] Work Phone: Patient Education ED Head Injury (Adult) [facility] Work Phone: Patient referral [facility] Work Phone: Thyrotropin [Units/v olume] in Serum or Plasma TSH BLD Lab Routine Acquired hypothyroidism 02/13/2023 9:53 AM T [facility] Work Phone: Thyroxine (T4) free [Mass/volume] in Serum or Plasma T4 FREE/FREE THYROX Lab Routine Acquired hypothyroidism 02/13/2023 9:53 AM [facility] Work Phone: Triiodothyronine (T3 ) Free [Mass/volume] in Serum or Plasma T3 FREE BLD Lab Routine Acquired hypothyroidism 02/13/2023 9:53 AM [facility] Work Phone: Troponin T.cardiac [Mass/volume] in Serum or Plasma by High sensitivity method [facility] Troponin T.cardiac [Mass/volume] in Serum or Plasma by High sensitivity method [facility] Urine culture [facility] End: 09-25-2024 US Abdomen RUQ US ABD RIGHT UPPER QUADRANT Radiology Routine Elevated LFTs 1 Occurrences starting 08/27/2023 until 09/25/2024 [facility] Work Phone: Comment on above: 1 Occurrences starti ng 08/27/2023 until 09/25/2024 [facility] Immunizations Immunization Date Immunization Notes Care Provider Martin spear 12-09-2023 Covid (Spikevax) Dr. Peter hernandez MD Work Phone: [facility] 08-10-2023 Influenza High-Dose Quadrivalent Dr. Peter Ellis Work Phone: [facility] 09-21-2022 tetanus toxoid, redu cynthia diphtheria toxoid, and acellular pertussis vaccine, adsorbed [facility] 04-15-2022 COVID-19 booster vaccine, age 12+ yr, bivalent (Communication Science) Ceci Mancilla [facility] 04-15-2022 influenza, high-dose , quadrivalent vaccine (FLUZONE HIGH DOSE QUADRIVALENT) Ceci Mancilla [facility] 04-15-2022 influenza virus vacc ine, unspecified formulation Peter Ellis MD Work Phone: [facility] 05-18-2021 Covid (Pfizer) Dr. Peter Mensah [facility] Work Phone: [facility] 05-18-2021 [facility] Work Phone: 03-15-2021 influenza, injectabl e, quadrivalent, preservative free Dr. Peter Ellis Work Phone: [facility] 03-15-2021 zoster vaccine recombinant Keti [facility] Work Phone: [facility] Work Phone: 10-03-2020 COVID-19 vaccine, ag e 12+ yr (Communication Science - PURPLE TOP) Maciej Lopez [facility] Work Phone: [facility] Work Phone: 09-12-2020 COVID-19 vaccine, ag e 12+ yr (EducerusNTECH - PURPLE TOP) [facility] Work Phone: [facility] Work Phone: 03-28-2020 influenza, high-dose , quadrivalent vaccine (FLUZONE HIGH DOSE QUADRIVALENT) [facility] Work Phone: [facility] Work Phone: 03-31-2019 influenza, high dose seasonal, preservative-free [facility] Work Phone: [facility] Work Phone: 03-31-2019 Influenza, injectabl e, Madin Chasity Canine Kidney, preservative free, quadrivalent Dr. Peter Ellis Work Phone: [facility] 02-27-2018 influenza, seasonal, injectable [facility] Work Phone: [facility] Work Phone: 02-27-2018 Seasonal trivalent influenza vaccine, adjuvanted, preservative free Dr. Peter Ellis Work Phone: [facility] 03-06-2017 Influenza, high dose seasonal Dr. Peter Ellis MD Work Phone: [facility] 03-06-2017 influenza, high dose seasonal, preservative-free [facility] Work Phone: [facility] 03-23-2016 influenza, high dose seasonal, preservative-free [facility] Work Phone: [facility] 03-23-2016 influenza, injectabl e, quadrivalent, preservative free Dr. Peter Ellis Work Phone: [facility] 03-15-2015 pneumococcal conjuga te vaccine, 13 valent [facility] Work Phone: [facility] 03-08-2015 influenza, seasonal, injectable [facility] Work Phone: [facility] Work Phone: 03-08-2015 Seasonal, quadrivale nt, recombinant, injectable influenza vaccine, preservative free Dr. Peter Ellis Work Phone: [facility] 03-05-2014 influenza, injectabl e, quadrivalent, preservative free Dr. Peter Ellis Work Phone: [facility] 03-05-2014 influenza, seasonal, injectable [facility] Work Phone: [facility] 05-21-2013 typhoid vaccine, unspecified formulation [facility] Work Phone: [facility] Work Phone: 05-03-2013 zoster vaccine, live [facility] Work Phone: [facility] Work Phone: 04-08-2013 influenza virus vacc ine, unspecified formulation [facility] Work Phone: [facility] Work Phone: 04-05-2013 influenza virus vacc ine, unspecified formulation [facility] Work Phone: [facility] 03-22-2013 hepatitis A vaccine, adult dosage Dr. Peter Ellis Work Phone: [facility] 03-22-2013 hepatitis A vaccine, unspecified formulation [facility] Work Phone: [facility] Work Phone: 03-04-2012 pneumococcal polysaccharide vaccine, 23 valent [facility] Work Phone: [facility] 02-24-2007 hepatitis A vaccine, adult dosage [facility] Work Phone: [facility] 02-24-2007 tetanus toxoid, redu cynthia diphtheria toxoid, and acellular pertussis vaccine, adsorbed [facility] Work Phone: [facility] 02-24-[address] Peter Ellis Work Phone: [facility] 03-17-2000 measles, mumps and rubella virus vaccine [facility] Work Phone: [facility] Payers Date Payer Category Payer Unknown [id number] 2024 Medicare [id number] 2024 Unknown [id number] 2024 Unknown [id number] 2024 Self-pay [id number] 2022 Unknown [id number] 2021 Medicare AETNA MEDICARE A ETNA MEDICARE PPO [id number] 2021-Present [phone] [address] [place] [address] PPO [id number] 2021 Medicare [id number] 2005 Unknown NIRMAL [id number] Medicare [facility] MEDICARE ADVANTAGE [id number] Private Health Insurance [facility] [id number] Unknown [id number] Unknown [id number] Unknown [id number] Unknown [id number] 462 Unknown [id number] 462 Unknown [id number] 462 Unknown [id number] 462 Unknown [id number] 462 Unknown [id number] 462 Unknown [id number] Unknown [id number] 462 Unknown [id number] 462 Unknown [id number] 462 Unknown [id number] 462 Social History Date Type Detail Facility Start: 11-29-2011 End: 03-03-2025 Tobacco smoking status COIS Never smoked tobacco [facility] Work Phone: Start: 08-22-2021 End: 11-12-2023 Alcohol intake Current non-drinker of alcohol (finding) [facility] Start: 08-30-2019 History SDOH Alcohol Frequency 1 [facility] Start: 08-30-2019 History SDOH Social Connections Phone 4 [facility] Start: 08-30-2019 History SDOH Social Connections Get Together 2 [facility] Start: 08-30-2019 History SDOH Physica l Activity DPW 0 [facility] Start: 08-30-2019 History SDOH Financial 3 [facility] Start: 08-30-2019 Education 17 [facility] Start: 1945 Sex Assigned At Not on file [facility] Start: 12-30-2021 End: 04-15-2022 Exposure to SARS-CoV-2 (event) Not sure [facility] Start: 11-29-2011 Tobacco use and exposure Smoke less tobacco non-user [facility] Start: 05-28-2019 End: 03-03-2025 Tobacco smoking status NHIS Unknown if ever smoked [facility] Start: 04-16-2019 None [facility] Start: 04-16-2019 Alone [facility] Start: 05-28-2019 [facility]-smoker [facility] [facility] Start: 1945 Sex Assigned At Female W [facility] Start: 08-30-2019 End: 02-28-2023 [facility] Start: 08-30-2019 End: 02-28-2023 Social connection and isolation panel [facility] Do you belong to any clubs or organizations such as adventism groups, unions, fraternal or athletic groups, or school groups? No [facility] Are you now , , , , never or living with a partner? [facility] How often to you hav e a drink containing alcohol? Never [facility] Average Number of Drinks Not on file [facility] Work Phone: How hard is it for y ou to pay for the very basics like food, housing, medical care, and heating Somewhat hard [facility] Do you feel stress - tense, restless, nervous, or anxious, or unable to sleep at night because your mind is troubled all the time - these days [OSQ] Only a little [facility] (I/We) worried wheth er (my/our) food would run out before (I/we) got money to buy more. Never true [facility] Start: 10-14-2024 Sex Female (finding) [facility] Medical Equipment Procedure Code Equipment Code Equipment Original Text Equipment Identifier Dates Mrkr 8ga Site Mamrk Brstbio - [id number] Start: 02-22-2013 [id number], [id number] Start: 01-10-2021 Comment on above: Test blood sugar(s) 2 times daily. Dx: Type 2 DM - Controlled E11.9 Insulin: No Test blood sugar(s) 2 daily. Dx: E11.9 Insulin: No Goals Date Patient Goal Desired Activity /State Functional Status Date Assessment Result Facility 03-08-2025 Functional status Ambulates [facility] Work Phone: 08-16-2023 Functional status Chair [facility] Work Phone: 08-12-2023 Functional status Ambulates [facility] Work Phone: 08-11-2023 Functional status Tolerates Activity Well [facility] Work Phone: Mental Status Date Assessment Result Facility 03-08-2025 Cognitive function Voice/Name [facility] Work Phone: 08-16-2023 Cognitive function Appropriate;Cooperativ e [facility] Work Phone: 08-15-2023 Cognitive function Level Of Cons ciousness Awake;Alert;Appropriate [facility] Work Phone: 08-12-2023 Cognitive function Voice/Name [facility] Work Phone: 08-12-2023 Cognitive function Cooperative [facility] Work Phone: 08-11-2023 Cognitive function Comprehension Ability Demonstrates ability to follow instructions/comprehend [facility] Work Phone: 08-10-2023 Cognitive function Memory Description Int act [facility] Work Phone: Clinical Notes 01-25-2016 to 03-08-2025 Note Date & Type Note Facility 03-08-2025 Discharge summary Note Date/Time March 08, 2025 12:39pm [facility] Medical Records Department [address] [place] [address] Discharge Summary 03/08/25 1238 MR#: [id number] Acct: [id number] Name: STEVE VIEIRA Rep #:[id number] : 1945 79 From: Carl Couch DO PCP: Dr. Peter Ellis MD Status:AD M IN Location: [place] [id number] Providers Date of Admission: 03/03/25 Primary Care Physician: Dr. Peter Ellis MD Consultations 03/03/25 16:59 Consult: Blasting Helper / Pulmonary Medicine Routine Consulting Provider: [facility] Reason for Consult: Vent management, sepsis EMERGENT [...] acetaminophen 650 mg rectal suppository 650 mg MT Q4H PRN fever or pain 03/03/25 bisacodyl 10 mg rectal suppository 10 mg MT DAILY PRN constipation 03/03/25 cholecalciferol (vitamin D3) [...] % (Auto) 71.0 H, Lymph % (Auto) 19.7,Ziebach % (Auto) 5.7, Eos % (Auto) 1.3, [...] Venous Blood Culture - Final GNR lactose roofer vinyl coating 03/03/25 14:20 Blood Culture (Wb) - Venous [...] 168days acetaminophen 650 mg suppository 650 mg MT Q4H PRN (Reason: fever or pain) bisacodyl 10 mg suppository 10 mg MT DAILY PRN (Reason: constipation) magnesium hydroxide [Milk [...] in before D/C Order can be placed): Fpc Facility Charges/Coding Visit Charges Inpatient E&M: 22299 Disch Hosp >30min 03/08/25 1239 <Electronically signed by Carl Couch DO> Cosigner Signature (if applicable): CC: Dr. Carl Couch DO; Dr. Peter Ellis MD~ Signed [facility] Work Phone: 1(867) 937-655509-09-2025 Discharge summary Author Carl Couch [facility] Note Date/Time March 08, 2025 12:38pm [facility] Medical Records Department [address] [place] [address] Transfer to [facility] MR#: [id number] Acct: [id number] Name: STEVE VIEIRA Rep #:[id number] : 1945 79 From: Carl Couch DO PCP: Dr. Peter Ellis MD Status:AD M IN Certification of patient admission REQUIRED AT TIME OF ADMISSION. 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 Giovanni Batista MD; Dr. [...] Frances Natarajan MD; Debra Bunn NP ~ [facility] Work Phone: 1(439) 442-236809-09-2025 Progress note Author Carl Couch [facility] Note Date/Time March 08, 2025 12:25pm [facility] Medical Records Department [address] [place] [address] Progress Note - Hospitalist 03/08/25 0853 MR#: [id number] Acct: [id number] Name: STEVE VIEIRA Rep #:[id number] : 1945 79 From: Carl Couch DO PCP: Dr. Peter Ellis MD Status:AD M IN [facility] Reason for Visit Chief Complaint: [...] % (Auto) 71.0 H, Lymph % (Auto) 19.7,Ziebach % (Auto) 5.7, Eos % (Auto) 1.3, [...] Venous Blood Culture - Final GNR lactose roofer vinyl coating 03/03/25 14:20 Blood Culture (Wb) - Venous [...] Cosigner Signature (if applicable): CC: ~ Signed [facility] Work Phone: 1(815) 738-547009-09-2025 Discharge summary [facility] Medical Records Department [address] [place] [address] Discharge Summary 03/08/25 1238 MR#: [id number] Acct: [id number] Name: STEVE VIEIRA Rep #:[id number] : 1945 79 From: Carl Couch DO PCP: Dr. Peter Ellis MD Status:AD M IN Location: [facility] [id number]- 1 Providers Date of Admission: 03/03/25 Primary Care Physician: Dr. Peter Ellis MD Consultations 03/03/25 16:59 Consult: Blasting Helper / Pulmonary Medicine Routine Consulting Provider: [facility] Reason for Consult: Vent management, sepsis EMERGENT [...] acetaminophen 650 mg rectal suppository 650 mg MT Q4H PRN fever or pain 03/03/25 bisacodyl 10 mg rectal suppository 10 mg MT DAILY PRN constipation 03/03/25 cholecalciferol (vitamin D3) [...] % (Auto) 71.0 H, Lymph % (Auto) 19.7,Ziebach % (Auto) 5.7, Eos % (Auto) 1.3, [...] Venous Blood Culture - Final GNR lactose roofer vinyl coating 03/03/25 14:20 Blood Culture (Wb) - Venous [...] Juana Mendez; Oni Perkins; Germania Lance; Donna,Antione; Roosevelt,Kev; Gibson Dwyer; Omar Castillo; Anabel Cummins; [...] 168days acetaminophen 650 mg suppository 650 mg MT Q4H PRN (Reason: fever or pain) bisacodyl 10 mg suppository 10 mg MT DAILY PRN (Reason: constipation) magnesium hydroxide [Milk [...] in before D/C Order can be placed): Fpc Facility Charges/Coding Visit Charges Inpatient E&M: 52576 Disch Hosp >30min 03/08/25 1239 Cosigner Signature (if applicable): CC: Dr. Carl Couch DO; Dr. Peter Ellis MD~ Signed [facility]09-09-2025 Discharge summary [facility] Medical Records Department [address] [place] [address] Transfer to [facility] MR#: [id number] Acct: [id number] Name: STEVE VIEIRA Rep #:[id number] : 1945 79 From: Carl Couch DO PCP: Dr. Peter Ellis MD Status:AD M IN Certification of patient admission REQUIRED AT TIME OF ADMISSION. I CERTIFY THAT POST-HOSPITAL F SERVICES ARE REQUIRED TO BE GIVEN ON AN IN-PATIENT BASIS BECAUSE OF THE ABOVE NAMED PATIENT'S NEED FOR HALFWAY CARE ON A CONTINUING BASIS FOR THE CONDITION(S) FOR WHICH HE/SHE WAS RECEIVING IN-PATIENT HOSPITAL SERVICES PRIOR TO HIS/HER TRANSFER TO THE COUNTS INCLUDE 234 BEDS AT THE [facility]. 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 ARIADNA [...] 168days acetaminophen 650 mg suppository 650 mg MT Q4H PRN (Reason: fever or pain) bisacodyl 10 mg suppository 10 mg MT DAILY PRN (Reason: constipation) magnesium hydroxide [Milk [...] in before D/C Order can be placed): Fpc Facility 03/08/25 1238 Cosigner Signature (if applicable): [...] Frances Natarajan MD; Debra Bunn NP ~ [facility]09-09-2025 [facility]09-09-2025 Progress note Author Ab [facility] Note Date/Time March 08, 2025 10:36am [facility] Medical Records Department [address] [place] [address] Progress Note - Infect Disease 03/08/25 1035 MR#: [id number] Acct: [id number] Name: STEVE VIIERA Rep #:[id number] : 1945 79 From: Ab kahn MD PCP: Dr. Peter Ellis MD Status:AD M IN Location: [place] [address] Physical Exam Narrative Feeling better, no abd [...] linezolid and IM ertapenem. Wrote rx, d/w rn case management. Will follow (2) Acute hypoxic respiratory failure: (3) Bacteremia due to Gram-negative bacteria: 03/08/25 1036 <Electronically signed by Ab Nur MD> Cosigner Signature (if applicable): CC: ~ Signed [facility] Work Phone: 1(503) 123-170609-09-2025 Progress note [facility] Medical Records Department [address] [place] [address] Progress Note - Hospitalist 03/08/2553 MR#: [id number] Acct: [id number] Name: STEVE VIEIRA Rep #:[id number] : 1945 79 From: Carl Couch DO PCP: Dr. Peter Ellis MD Status:AD IN Location: [place] [address] Reason for Visit Chief Complaint: Patient came [...] % (Auto) 71.0 H, Lymph % (Auto) 19.7,Ziebach % (Auto) 5.7, Eos % (Auto) 1.3, [...] Venous Blood Culture - Final GNR lactose roofer vinyl coating 03/03/25 14:20 Blood Culture (Wb) - Venous [...] Cosigner Signature (if applicable): CC: ~ Signed [facility]09-09-2025 Progress note [facility] Medical Records Department [address] [place] [address] Progress Note - Infect Disease 03/08/25 1035 MR#: [id number] Acct: [id number] Name: STEVE VIEIRA Rep #:[id number] : 1945 79 From: Ab kahn MD PCP: Dr. Peter Ellis MD Status:AD M IN Location: [place] [address] Physical Exam Narrative Feeling better, no abd [...] linezolid and IM ertapenem. Wrote rx, d/w rn case management. Will follow (2) Acute hypoxic respiratory failure: (3) Bacteremia due to Gram-negative bacteria: 03/08/25 103 Cosigner Signature (if applicable): CC: ~ Signed [facility]09-08-2025 Progress note Author Carl Couch [facility] Note Date/Time March 07, 2025 5:08pm [facility] Medical Records Department [address] [facility] [place] [address] Progress Note - Hospitalist 03/07/25 1015 MR#: [id number] Acct: [id number] Name: STEVE VIEIRA Rep #:[id number] : 1945 79 From: Carl Couch DO PCP: Dr. Peter Ellis MD Status:AD M IN Location: [facility] VAT774- 1 Reason for Visit Chief Complaint: Patient [...] % (Auto) 64.9, Lymph % (Auto) 24.7, Ziebach % (Auto) 5.8, Eos % (Auto) 2.5, [...] Venous Blood Culture - Final GNR lactose roofer vinyl coating 03/03/25 14:20 Blood Culture (Wb) - Venous [...] anemia. SCDs Charges/Coding Visit Charges Inpatient E&M: 03407 Subs Hosp L2 03/07/25 1708 <Electronically signed by Carl Couch DO> Cosigner Signature (if applicable): CC: ~ Signed [facility] Work Phone: 1(272) 463-194809-08-2025 Progress note [facility] Medical Records Department [address] [place] [place] [address] Progress Note - Hospitalist 03/07/25 1015 MR#: [id number] Acct: [id number] Name: STEVE VIEIRA Rep #:[id number] : 1945 79 From: Carl Couch DO PCP: Dr. Peter Ellis MD Status:AD M IN Location: [place] [address] Reason for Visit Chief Complaint: Patient came [...] % (Auto) 64.9, Lymph % (Auto) 24.7, Ziebach % (Auto) 5.8, Eos % (Auto) 2.5, [...] Venous Blood Culture - Final GNR lactose roofer vinyl coating 03/03/25 14:20 Blood Culture (Wb) - Venous [...] anemia. SCDs Charges/Coding Visit Charges Inpatient E&M: 18276 Subs Hosp L2 03/07/25 9970 Cosigner Signature (if applicable): CC: ~ Signed [facility]09-08-2025 Consult note Author Ab Nur [facility] Note Date/Time March 07, 2025 10:31am [facility] Medical Records Department [address] [place] [address] Consultation - Infectious Dx 03/07/25 1028 MR#: [id number] Acct: [id number] Name: STEVE VIEIRA Rep #:[id number] : 1945 79 From: Ab kahn MD PCP: Dr. Peter Ellis MD Status:AD M IN Location: [place] [address]- 1 Assessment & Plan Assessment/Plan (1) Sepsis: [...] above. Denies cough, dyspnea, abd pain, n/v/d. [facility] Medical History History of ESBL [...] (Calmoseptine) acetaminophen 650 mg rectal 650 mg MT Q4H PRN fever or pain 03/03/25 Unknown History suppository bisacodyl 10 mg rectal suppository 10 mg MT DAILY PRN constipation 03/03/25 Unknown History cholecalciferol [...] % (Auto) 64.9, Lymph % (Auto) 24.7, Ziebach % (Auto) 5.8, Eos % (Auto) 2.5, [...] Venous Blood Culture - Final GNR lactose roofer vinyl coating 03/03/25 14:20 Blood Culture (Wb) - Venous Blood Culture - Final ESBL Escherichia coli 03/07/25 1031 <Electronically signed by Ab Nur MD> Cosigner Signature (if applicable): CC: Dr. Peter Ellis MD~ Signed [facility] Work Phone: [phone]) [phone] Consult note [facility] Medical Records Department [address] [place] [address] Consultation - Infectious Dx 03/07/25 1028 MR#: [id number] Acct: [id number] Name: STEVE VIEIRA Rep #:[id number] : 1945 79 From: Ab kahn MD PCP: Dr. Peter Ellis MD Status:AD M IN Location: [place] [address]- Assessment & Plan Assessment/Plan (1) Sepsis: PLAN: [...] above. Denies cough, dyspnea, abd pain, n/v/d. [facility] Medical History History of ESBL [...] (Calmoseptine) acetaminophen 650 mg rectal 650 mg MT Q4H PRN fever or pain 03/03/25 Unknown History suppository bisacodyl 10 mg rectal suppository 10 mg MT DAILY PRN constipation 03/03/25 Unknown History cholecalciferol [...] % (Auto) 64.9, Lymph % (Auto) 24.7, Ziebach % (Auto) 5.8, Eos % (Auto) 2.5, [...] Venous Blood Culture - Final GNR lactose roofer vinyl coating 03/03/25 14:20 Blood Culture (Wb) - Venous Blood Culture - Final ESBL Escherichia coli 03/07/25 1031 Cosigner Signature (if applicable): CC: Dr. Peter Ellis MD~ Signed [facility]09-07-2025 Consult note Author Mehdi Lowe [facility] Note Date/Time March 06, 2025 6:34pm [facility] Medical Records Department [address] [place] [address] Pharmacokinetic/Renal -Consult 03/06/25 1833 MR#: [id number] Acct: [id number] Name: STEVE VIEIRA Rep #:[id number] : 1945 79 From: Mehdi Gómez [facility] PCP: Dr. Peter Ellis MD Status:AD M IN Location: [place] [address] Consult Antibiotic Management Pharmacy has been consulted [...] Venous Blood Culture - Final GNR lactose roofer vinyl coating 03/03/25 14:20 Blood Culture (Wb) - Venous [...] 03/06/25 1834 <Electronically signed by Mehdi Patel [facility]> Date _ Mehdi Lowe [facility] Wendyigncarlo Signature (if applicable): Date CC: ~ Signed [facility] Work Phone: 1(139) 233-855809-07-2025 Consult note [facility] Medical Records Department [address] [place] [address] Pharmacokinetic/Renal -Consult 03/06/25 1833 MR#: [id number] Acct: [id number] Name: STEVE VIEIRA Rep #:[id number] : 1945 79 From: Mehdi Gómez [facility] PCP: Dr. Peter Ellis MD Status:AD M IN Location: [facility] [id number]- 1 Consult Antibiotic Management Pharmacy has been [...] Venous Blood Culture - Final GNR lactose roofer vinyl coating 03/03/25 14:20 Blood Culture (Wb) - Venous [...] Vancomycin (03/08/25 at 0630) 03/06/25 1834 ering [facility]> Date _ Mehdi Lowe [facility] Cosigner Signature (if applicable): Date CC: ~ Signed [facility] [id number] Progress note Author Linda Marte [facility] Note Date/Time March 06, 2025 3:23pm [facility] Medical Records Department [address] [place] [address] Progress Note 03/06/25 1010 MR#: [id number] Acct: [id number] Name: STEVE VIEIRA Rep #:[id number] : 1945 79 From: Linda Marte MD PCP: Dr. Peter Ellis MD Status:AD M IN Location: [place] [address] Subjective Subjective Patient seen and examined with [...] 73.1 H, Lymph % (Auto) 18.2 L, Ziebach % (Auto) 6.2, Eos % (Auto) 1.6, [...] Venous Blood Culture - Final GNR lactose roofer vinyl coating 03/03/25 14:20 Blood Culture (Wb) - Venous [...] anemia. SCDs Charges/Coding Visit Charges Inpatient E&M: 90639 Subs Hosp L2 03/06/25 1523 <Electronically signed by Linda Marte MD> Linda Marte MD Cosigner Signature (if applicable): CC: ~ Signed [facility] Work Phone: 1(951) 984-356509-07-2025 Progress note [facility] Medical Records Department [address] [place] [address] Progress Note 03/06/25 1010 MR#: [id number] Acct: [id number] Name: STEVE VIEIRA Rep #:[id number] : 1945 79 From: Linda Marte MD PCP: Dr. Peter Ellis MD Status:AD M IN Location: [place] [address] Subjective Subjective Patient seen and examined with [...] 73.1 H, Lymph % (Auto) 18.2 L, Ziebach % (Auto) 6.2, Eos % (Auto) 1.6, [...] Venous Blood Culture - Final GNR lactose roofer vinyl coating 03/03/25 14:20 Blood Culture (Wb) - Venous [...] anemia. SCDs Charges/Coding Visit Charges Inpatient E&M: 55431 Subs Hosp L2 03/06/25 1523 Linda Marte MD Cosigner Signature (if applicable): CC: ~ Signed [facility]09-06-2025 Progress note Author Linda [facility] Note Date/Time March 05, 2025 3:57pm [facility] Medical Records Department [address] [place] [address] Progress Note 03/05/25 1342 MR#: [id number] Acct: [id number] Name: STEVE VIEIRA Rep #:[id number] : 1945 79 From: Linda Marte MD [...] (Auto) 80.4 H, Lymph % (Auto) 9.8L, Ziebach % (Auto) 8.3, Eos % (Auto) 0.9, [...] Venous Blood Culture - Preliminary GNR lactose roofer vinyl coating 03/03/25 14:10 Blood Culture (Wb) - Venous Blood Culture - Preliminary GNR lactose roofer vinyl coating 03/03/25 14:54 Sputum, Induced/Lukens Gram Stain - [...] prophylaxis: Lovenox. Charges/Coding Visit Charges Inpatient E&M: 89626 Subs Hosp L2 03/05/25 7632 <Electronically signed by Linda Marte MD> Linda Marte MD Cosigner Signature (if applicable): CC: ~ Signed [facility] Work Phone: 1(871) 377-280409-06-2025 Progress note Author Terry Flores [facility] Note Date/Time March 05, 2025 3:06pm [facility] Medical Records Department [address] [place] [address] Progress Note - Blasting Helper 03/05/25 1501 MR#: [id number] Acct: [id number] Name: STEVE VIEIRA Rep #:[id number] : 1945 79 From: Terry Hartman PCP: [...] mls @ 15 mls/hr 03/03/25 17:01 IV .[id number] PRN Saline Flush Sodium Chloride 250 mls @ 15 mls/hr 03/03/25 17:01 IV .[id number] PRN Additional IVPB Infusion Vancomycin HCl 1,250 [...] 75 Mcg Tablet PO 75 mcg MoWeFr@0600 [facility] Administration Ondansetron HCl 4 mg 03/03/25 16:59 [...] Vancomycin Trough/Random Due MC 03/06/25 18:30 DAILY [facility] Lab / Micro Data 03/05/25 05:25 03/05/25 [...] (Auto) 80.4 H, Lymph % (Auto) 9.8L, Ziebach % (Auto) 8.3, Eos % (Auto) 0.9, [...] Venous Blood Culture - Preliminary GNR lactose roofer vinyl coating 03/03/25 14:10 Blood Culture (Wb) - Venous Blood Culture - Preliminary GNR lactose roofer vinyl coating 03/03/25 14:54 Sputum, Induced/Lukens Gram Stain - [...] Sepsis syndrome 3. 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 ATX RLL 6. h/o esophageal stricture REC -consider changing to carbapenem -VTE ppx -mobilize as able OK to leave ICU - we are available as needed The entirety of this encounter was done via Telemedicine 03/05/25 1506 <Electronically signed by Terry Flores MD> Cosigner Signature (if applicable): CC: ~ Signed [facility] Work Phone: 1(270) 614-149409-06-2025 Progress note [facility] Medical Records Department [address] [place] [address] Progress Note 03/05/25 1342 MR#: [id number] Acct: [id number] Name: STEVE VIEIRA Rep #:[id number] : 1945 79 From: Linda Marte MD [...] (Auto) 80.4 H, Lymph % (Auto) 9.8L, Ziebach % (Auto) 8.3, Eos % (Auto) 0.9, [...] Venous Blood Culture - Preliminary GNR lactose roofer vinyl coating 03/03/25 14:10 Blood Culture (Wb) - Venous Blood Culture - Preliminary GNR lactose roofer vinyl coating 03/03/25 14:54 Sputum, Induced/Lukens Gram Stain - [...] prophylaxis: Lovenox. Charges/Coding Visit Charges Inpatient E&M: 39035 Subs Hosp L2 03/05/25 8660 Linda Marte MD Cosigner Signature (if applicable): CC: ~ Signed [facility]09-06-2025 Progress note [facility] Medical Records Department [address] [place] [address] Progress Note - Blasting Helper 03/05/25 1501 MR#: [id number] Acct: [id number] Name: STEVE VIEIRA Rep #:[id number] : 1945 79 From: Terry Hartman PCP: [...] mls @ 15 mls/hr 03/03/25 17:01 IV .[id number] PRN Saline Flush Sodium Chloride 250 mls @ 15 mls/hr 03/03/25 17:01 IV .[id number] PRN Additional IVPB Infusion Vancomycin HCl 1,250 mg/ 275 mls @ 167 mls/hr 03/04/25 18:00 03/04/25 20:11 Sodium Chloride IV Infused Q24H SUDHIR Infusion Insulin Human Lispro 0 unit 03/03/25 18:00 03/05/25 11:46 Insulin Lispro 100 Unit/Ml Insuln.Pen SC 2 u Q6 SUDHIR Administration Protocol Levothyroxine Sodium 50 mcg 03/05/25 06:00 03/05/25 05:30 Levothyroxine 50 Mcg Tablet PO Not Given [id number]@0600 [facility] Levothyroxine Sodium 75 mcg 03/04/25 06:00 03/04/25 [...] Vancomycin Trough/Random Due MC 03/06/25 18:30 DAILY [facility] Lab / Micro Data 03/05/25 05:25 03/05/25 [...] (Auto) 80.4 H, Lymph % (Auto) 9.8L, Ziebach % (Auto) 8.3, Eos % (Auto) 0.9, [...] Venous Blood Culture - Preliminary GNR lactose roofer vinyl coating 03/03/25 14:10 Blood Culture (Wb) - Venous Blood Culture - Preliminary GNR lactose roofer vinyl coating 03/03/25 14:54 Sputum, Induced/Lukens Gram Stain - [...] Sepsis syndrome 3. 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 h/o esophageal stricture REC -consider changing to carbapenem -VTE ppx -mobilize as able OK to leave ICU - we are available as needed The entirety of this encounter was done via Telemedicine 03/05/25 1506 Cosigner Signature (if applicable): CC: ~ Signed [facility]09-05-2025 Progress note Author Linda [facility] Note Date/Time March 04, 2025 4:50pm [facility] Medical Records Department [address] [place] [address] Progress Note 03/04/25 1636 MR#: [id number] Acct: [id number] Name: STEVE VIEIRA Rep #:[id number] : 1945 79 From: Linda Marte MD [...] 91.9 H, Lymph % (Auto) 1.8 L, Ziebach % (Auto) 5.2, Eos % (Auto) 0.0, [...] Induced/Lukens Respiratory Culture - Preliminary GNR lactose roofer vinyl coating 03/03/25 14:48 Urine Catheter - Catheter Urine [...] and nonemergent findings discussed above. Reading Location: [id number] Physical Exam Const alert Constitutional Narrative: flat [...] prophylaxis: Lovenox. Charges/Coding Visit Charges Inpatient E&M: 11326 Subs Hosp L3 03/04/25 1650 <Electronically signed by Linda Marte MD> Linda Marte MD Cosigner Signature (if applicable): CC: ~ Signed [facility] Work Phone: 1(331) 816-378909-05-2025 Progress note [facility] Medical Records Department [address] [place] [address] Progress Note 03/04/25 1636 MR#: [id number] Acct: [id number] Name: STEVE VIEIRA Rep #:[id number] : 1945 79 From: Linda Marte MD [...] 91.9 H, Lymph % (Auto) 1.8 L, Ziebach % (Auto) 5.2, Eos % (Auto) 0.0, [...] Induced/Lukens Respiratory Culture - Preliminary GNR lactose roofer vinyl coating 03/03/25 14:48 Urine Catheter - Catheter Urine [...] and nonemergent findings discussed above. Reading Location: [facility] Physical Exam Const alert Constitutional Narrative: flat [...] prophylaxis: Lovenox. Charges/Coding Visit Charges Inpatient E&M: 23435 [facility] Hosp L3 03/04/25 1650 Linda Marte MD Cosigner Signature (if applicable): CC: ~ Signed [facility]09-05-2025 Consult note Author Mario Dunaway [facility] Note Date/Time March 04, 2025 9:19am [facility] Medical Records Department [address] [place] [address] Consultation - Blasting Helper 03/04/25 0746 MR#: [id number] Acct: [id number] Name: STEVE VIEIRA Rep #:[id number] : 1945 79 From: Mario Dunaway DO [...] and hypothyroidism. The patient was last admitted [facility] in November 2023 with severe hyperglycemia and [...] FiO2 requirement was noted to be 30%. [facility] Medical History Chronic depression Uncontrolled [...] (Calmoseptine) acetaminophen 650 mg rectal 650 mg MT Q4H PRN fever or pain 03/03/25 Unknown History suppository bisacodyl 10 mg rectal suppository 10 mg MT DAILY PRN constipation 03/03/25 Unknown History cholecalciferol [...] 95.4 H, Lymph % (Auto) 2.2 L, Ziebach % (Auto) 1.3, Eos % (Auto) 0.2, [...] Sl. Cloudy, Urine pH 5.0, Ur Specific Huron 1.015, Urine Protein 100 H, Urine Glucose [...] 91.9 H, Lymph % (Auto) 1.8 L, Ziebach % (Auto) 5.2, Eos % (Auto) 0.0, [...] pulled back approximately 2 cm. Reading Location: -[id number] Abdomen/Pelvis CT 03/03/25 15:45 IMPRESSION: Clinical correlation for mild UTI and/or cystitis. Genitourinary findings discussed above in detail. - Pulmonary parenchymal opacities to be correlated for aspiration/pneumonia as discussed above. - Nonspecific gastrointestinal findings. - Other incidental and nonemergent findings discussed above. Reading Location: [id number] Charges/Coding Procedures Hospitalists Procedures: 31006 Critical Care 1st Hr 03/04/25918 <Electronically signed by Mario Dunaway DO> Cosigner Signature (if applicable): CC: Dr. Peter Ellis MD~ Signed [facility] Work Phone: 1(825) 667-542809-05-2025 Consult note [facility] Medical Records Department [address] [place] [address] Consultation - Blasting Helper 03/04/2546 MR#: [id number] Acct: [id number] Name: STEVE VIEIRA Rep #:[id number] : 1945 79 From: Mario Dunaway DO PCP: Dr. Peter Elils MD Status:AD M IN Location: ICU ICU05-1 [...] and hypothyroidism. The patient was last admitted [facility] in November 2023 with severe hyperglycemia and [...] FiO2 requirement was noted to be 30%. [facility] Medical History Chronic depression Uncontrolled [...] (Calmoseptine) acetaminophen 650 mg rectal 650 mg MT Q4H PRN fever or pain 03/03/25 Unknown History suppository bisacodyl 10 mg rectal suppository 10 mg MT DAILY PRN constipation 03/03/25 Unknown History cholecalciferol [...] 95.4 H, Lymph % (Auto) 2.2 L, Ziebach % (Auto) 1.3, Eos % (Auto) 0.2, [...] Sl. Cloudy, Urine pH 5.0, Ur Specific Huron 1.015, Urine Protein 100 H, Urine Glucose [...] 91.9 H, Lymph % (Auto) 1.8 L, Ziebach % (Auto) 5.2, Eos % (Auto) 0.0, [...] pulled back approximately 2 cm. Reading Location: -[id number] Abdomen/Pelvis CT 03/03/25 15:45 IMPRESSION: Clinical correlation for mild UTI and/or cystitis. Genitourinary findings discussed above in detail. - Pulmonary parenchymal opacities to be correlated for aspiration/pneumonia as discussed above. - Nonspecific gastrointestinal findings. - Other incidental and nonemergent findings discussed above. Reading Location: [id number] Charges/Coding Procedures Hospitalists Procedures: 76805 Critical Care 1st Hr 03/04/25 0919 Cosigner Signature (if applicable): CC: Dr. Peter Ellis MD~ Signed [facility]09-05-2025 Discharge summary Author Frieda Laurent [facility] Note Date/Time March 04, 2025 12:07am [facility] Medical Records Department [address] [place] [address] Emergency Department Summary 03/03/25 MR#: [id number] Acct: [id number] Name: STEVE VIEIRA Rep #:[id number] : 1945 79 From: Frieda Laurent MD [...] history due to dementia and presenting symptoms. [facility] Medical History Chronic depression Uncontrolled type [...] (Calmoseptine) acetaminophen 650 mg rectal 650 mg MT Q4H PRN fever or pain 03/03/25 Unknown History suppository bisacodyl 10 mg rectal suppository 10 mg MT DAILY PRN constipation 03/03/25 Unknown History cholecalciferol [...] 95.4 H Lymph % (Auto) 2.2 L Ziebach % (Auto) 1.3 Eos % (Auto) 0.2 [...] Sl. Cloudy Urine pH 5.0 Ur Specific Huron 1.015 Urine Protein 100 H Urine Glucose [...] pulled back approximately 2 cm. Reading Location: -[id number] Abdomen/Pelvis CT 03/03/25 15:45 IMPRESSION: Clinical correlation for mild UTI and/or cystitis. Genitourinary findings discussed above in detail. - Pulmonary parenchymal opacities to be correlated for aspiration/pneumonia as discussed above. - Nonspecific gastrointestinal findings. - Other incidental and nonemergent findings discussed above. Reading Location: [id number]-UMOWX-[id number] Procedures Intubations Intubation Method: orotracheal Intubation Verification: Positive color change and Bilateral breath sounds confirmed Intubation Complications: no complications Discharge Plan Disposition Disposition: [facility] Discharge Date/Time: 03/03/25 16:21 What to do if you have Problems For any increased pain, shortness of breath, bleeding, nausea or vomiting, chestpain, or any unexpected problems, contact your Primary Care Provider. Call [facility] ([phone]) or report to the closest Emergency Room. [...] cc: Dr. Peter Ellis MD ~* Signed [facility] Work Phone: 1(971) 357-715909-05-2025 Discharge summary [facility] Medical Records Department [address] [place] [address] Emergency Department Summary 03/03/25 MR#: [id number] Acct: [id number] Name: STEVE VIEIRA Rep #:[id number] : 1945 79 From: Frieda Laurent MD [...] history due to dementia and presenting symptoms. [facility] Medical History Chronic depression Uncontrolled type [...] (Calmoseptine) acetaminophen 650 mg rectal 650 mg MT Q4H PRN fever or pain 03/03/25 Unknown History suppository bisacodyl 10 mg rectal suppository 10 mg MT DAILY PRN constipation 03/03/25 Unknown History cholecalciferol [...] 95.4 H Lymph % (Auto) 2.2 L Ziebach % (Auto) 1.3 Eos % (Auto) 0.2 [...] Sl. Cloudy Urine pH 5.0 Ur Specific Huron 1.015 Urine Protein 100 H Urine Glucose [...] pulled back approximately 2 cm. Reading [id number]en/Pelvis CT 03/03/25 15:45 IMPRESSION: Clinical correlation for mild UTI and/or cystitis. Genitourinary findings discussed above in detail. - Pulmonary parenchymal opacities to be correlated for aspiration/pneumonia as discussed above. - Nonspecific gastrointestinal findings. - Other incidental and nonemergent findings discussed above. Reading Location: [id number]-RP Procedures Intubations Intubation Method: orotracheal Intubation Verification: Positive color change and Bilateral breath sounds confirmed Intubation Complications: no complications Discharge Plan Disposition Disposition: Acute Care Hospital [facility] Discharge Date/Time: 03/03/25 16:21 What to do if you have Problems For any increased pain, shortness of breath, bleeding, nausea or vomiting, chestpain, or any unexpected problems, contact your Primary Care Provider. Call [facility] ([phone]) or report tothe closest Emergency Room. Call 911 if necessary. 03/03/25 2307 Cosigner Signature (if applicable): CC: Dr. Peter Ellis MD ~ Signed ADDENDUM by Dr. Frieda Laurent MD on 03/04/25 at 0007 Critical care time 60 minutes performing procedures, discussing with family, discussing with consultants and direct patient care. 03/04/25 0007 Cosigner Signature (if applicable): cc: Dr. Peter Ellis MD ~* Signed [facility]09-04-2025 Consult note Author Anmol Farrell [facility] Note Date/Time March 03, 2025 8:05pm [facility] Medical Records Department [address] [place] [address] Pharmacokinetic/Renal -Consult 03/03/25 1759 MR#: [id number] Acct: [id number] Name: STEVE VIEIRA Rep #:[id number] : 1945 79 From: Anmol romo PCP: [...] Date Desiree Trent MD CC: ~ Signed [facility] Work Phone: 1(152) 344-665309-04-2025 History and physical note Author Desiree Trent [facility] Note Date/Time March 03, 2025 8:03pm [facility] Medical Records Department [address] [place] [address] H&P Exam - Hospitalist 03/03/25 1640 MR#: [id number] Acct: [id number] Name: STEVE VIEIRA Rep #:[id number] : 1945 79 From: Desiree Trent MD PCP: Dr. Peter Ellis MD Status:AD M IN Location: ICU ICU05-1 HPI - General General Date of Admission: 03/03/25 Date of Service: 03/03/25 Chief Complaint: Patient came in hypoxic HPI Narrative STEVE VIEIRA, is a 79-year-old female history of GERD, diabetes, depression, hypothyroidism presented to [facility] ED 03/03/25 dueto shortness of breath. In [...] ANO x 1 but this morning at [facility] patient was lethargic, had a temp of 101.2 and had an SpO2 of 65% so she was brought to the ED. In EMS on the way here she vomited 3 times. Her CODE STATUS was unclear regarding intubation so family was contacted and did want her intubated at the time. No family available at bedside to provide additional history. [facility] Medical History Diabetes Kidney stones [...] 95.4 H, Lymph % (Auto) 2.2 L, Ziebach % (Auto) 1.3, Eos % (Auto) 0.2, [...] Sl. Cloudy, Urine pH 5.0, Ur Specific Huron 1.015, Urine Protein 100 H, Urine Glucose [...] pulled back approximately 2 cm. Reading Location[id number] Assessment & Plan Assessment/Plan (1) Sepsis: (2) [...] mechanical ventilation -Patient admitted to the ICU -Blasting Helper consult -X-ray unrevealing -Given her vomiting there [...] ordered: 2,500 Charges/Coding Visit Charges Inpatient E&M: 58016 Init Hosp L3 03/03/25 1650 <Electronically signed [...] MD; Dr. Desiree Trent MD ~* Signed [facility] Work Phone: 1(266) 232-640409-04-2025 Progress note Author Desiree Trent [facility] Note Date/Time March 03, 2025 6:09pm [facility] Medical Records Department [address] [place] [address] Progress Note - Hospitalist 03/03/25 1809 MR#: [id number] Acct: [id number] Name: STEVE VIEIRA Rep #:[id number] : 1945 79 From: Desiree Trent MD [...] Cosigner Signature (if applicable): CC: ~ Signed [facility] Work Phone: 1(686) 938-917009-04-2025 Consult note [facility] Medical Records Department [address] [place] [address] Pharmacokinetic/Renal -Consult 03/03/25 175 MR#: [id number] Acct: [id number] Name: STEVE VIEIRA Rep #:[id number] : 1945 79 From: Anmol romo PCP: [...] Date Desiree Trent MD CC: ~ Signed [facility]09-04-2025 History and physical note [facility] Medical Records Department [address] [facility] [place] [address] H&P Exam - Hospitalist 03/03/25 1640 MR#: [id number] Acct: [id number] Name: STEVE VIEIRA Rep #:[id number] : 1945 79 From: Desiree Ternt MD PCP: Dr. Peter Ellis MD Status:AD M IN Location: ICU ICU05-1 HPI - General General Date of Admission: 03/03/25 Date of Service: 03/03/25 Chief Complaint: Patient came in hypoxic HPI Narrative STEVE VIEIRA, is a 79-year-old female history of GERD, diabetes, depression, hypothyroidism presented to [facility] ED 03/03/25 dueto shortness of breath. In [...] ANO x 1 but this morning at [facility] patient was lethargic, had a temp of 101.2 and had an SpO2 of 65% so she was broughtto the ED. In EMS on the way here she vomited 3 times. Her CODE STATUS was unclear regarding intubation so family was contacted and did want her intubated at the time. No family available at bedside to provide additional history. [facility] Medical History Diabetes Kidney stones [...] 95.4 H, Lymph % (Auto) 2.2 L, Ziebach % (Auto) 1.3, Eos % (Auto) 0.2, [...] Sl. Cloudy, Urine pH 5.0, Ur Specific Huron 1.015, Urine Protein 100 H, Urine Glucose [...] pulled back approximately 2 cm. Reading [id number] Assessment & Plan Assessment/Plan (1) Sepsis: (2) [...] mechanical ventilation -Patient admitted to the ICU -Blasting Helper consult -X-ray unrevealing -Given her vomiting there [...] ordered: 2,500 Charges/Coding Visit Charges Inpatient E&M: 65631 Init Hosp L3 03/03/25 1650 Cosigner Signature [...] MD; Dr. Desiree Trent MD ~* Signed [facility]09-04-2025 Progress note [facility] Medical Records Department [address] [place] [address] Progress Note - Hospitalist 03/03/25 1809 MR#: [id number] Acct: [id number] Name: STEVE VIEIRA Rep #:[id number] : 1945 79 From: Desiree Trent MD [...] Cosigner Signature (if applicable): CC: ~ Signed [facility]09-04-2025 Evaluation note* Diagnosis Onset Date Resolution Status Admit Date Acute hypoxic respiratory failure acute March 03, 2 025 4:08pm Bacteremia due to Gram-negat patrizia bacteria acute March 03, 2 025 4:08pm Hyperlipidemia acute March 03, 2025 4:08pm Sepsis acute March 03, 2025 4:08pm [facility] Work Phone: 1(888) 377-861709-04-2025 Evaluation note* Diagnosis Onset Date Resolution Status Admit Date Acute hypoxic respiratory failure resolved March 03, 2 025 4:08pm Bacteremia due to Gram-negative bacteria resolved March 03, 2025 4:08pm Hyperlipidemia resolved March 03, 2025 4:08pm Sepsis resolved March 03, 2025 4:08pm [facility] Work Phone: 1(942) 532-361109-04-2025 Radiology Diagnostic study note [facility] Imaging Services [address] [place] [address] Abdomen/Pelvis W IV Cont ONLY MR#: [id number] Acct: [id number] Name: STEVE VIEIRA Rep #: [id number] : 1945 F 79 From: Erin Serrato MD PCP: Dr. Peter Ellis MD Status: AD M IN Study:Abdomen/Pelvis W IV Cont ONLY Date of E xam: 03/03/25 Exam# [id number] Ordering Dr: Carlo Laurent MD PROCEDURE: ABDOMEN/PELVIS [...] seen bilaterally. There is mild urothelial enhancement ghlz-ahozbwd-cwee-right renal pelvis. This could be seenwith mild [...] and nonemergent findings discussed above. Reading Location: [facility] CC: Dr. Frieda Laurent MD; Dr. Peter Ellis MD ~ Thermal Engineer: Signed [facility]09-04-2025 Radiology Diagnostic study note [facility] Imaging Services [address] [place] [address] Chest 1 View (Portable) MR#: [id number] Acct: [id number] Name: STEVE VIEIRA Rep #: [id number] : 1945 F 79 From: Misha Toth MD PCP: Dr. Peter Ellis MD Status: RE G ER Study:Chest 1 View (Portable) Date of Exam: 03/03/25 Exam# [id number] Ordering Dr: Carlo Laurent MD PROCEDURE: CHEST [...] pulled back approximately 2 cm. Reading Location: [facility] CC: Dr. Frieda Laurent MD; Dr. Peter Ellis MD ~ Thermal Engineer: Signed [facility]06-06-2024 Telephone encounter Note* Telephone Encounter - Renetta Abernathy LPN - 12/04/2023 2:09 PM EDT Pt has been admitted to [facility]. See ER and H&P note. [facility]06-06-2024 Miscellaneous Notes* Telephone Encounter - Renetta Abernathy LPN - 12/04/2023 2:09 PM EDT Pt has been admitted to [facility]. See ER and H&P note. * Telephone Encounter - Steve Aaron - 12/03/2023 9:42 AM EDT 1st call attempt, left vm * Telephone Encounter - Peter Ellis MD - 11/28/2023 3:19 PM EDT Let me know if needs a referral. I don't think Medicare requires a referral * Telephone Encounter - Loraine Johnson LPN - 11/28/2023 1:04 PM EDT Spoke with patient and she is not opposed to seeing Mitzy Neves. Please call patient to schedule. Does this require a referral to see him? * Telephone Encounter - Peter Ellis MD - 11/26/2023 8:17 PM EDT Have patient come in for DM teaching--see if can get in with health promotion educator or PLASTER MOLD MAKER/PAS to help with use of CGM as well as help with DM education. * Telephone Encounter - Alta Ortiz LPN - 11/25/2023 3:43 PM EDT Naye with [facility] calls to report that pt was [...] pt. Alta Ortiz LPN [facility] Telephone encounter Note * Telephone Encounter - Steve Aaron - 12/03/2023 9:42 AM EDT 1st call attempt, left vm [facility]05-31-2024 Telephone encounter Note* Telephone Encounter - Peter Ellis MD - 11/28/2023 3:19 PM EDT Let me know if needs a referral. I don't think Medicare requires a referral [facility]05-31-2024 Telephone encounter Note* Telephone Encounter - Loraine Johnson LPN - 11/28/2023 1:04 PM EDT Spoke with patient and she is not opposed to seeing Mitzy Neves. Please call patient to schedule. Does this require a referral to see him? [facility]05-29-2024 Telephone encounter Note* Telephone Encounter - Peter Ellis MD - 11/26/2023 8:17 PM EDT Have patient come in for DM teaching--see if can get in with health promotion educator or PLASTER MOLD MAKER/PAS to help with use of CGM as well as help with DM education. [facility]05-28-2024 Telephone encounter Note* Telephone Encounter - Alta Ortiz LPN - 11/25/2023 3:43 PM EDT Naye with [facility] calls to report that pt was [...] will be helping pt. Alta Ortiz LPN [facility]05-23-2024 Telephone encounter Note* Telephone Encounter - [...] reach out to TREVA Wang for assistance. [facility]05-23-2024 Miscellaneous Notes* Telephone Encounter - Sherwin [...] she returns Sw call. documented in [facility]05[facility] Telephone encounter Note * Telephone Encounter [...] would need set up in the home. [facility]05-17-2024 Telephone encounter Note* Telephone Encounter - Sherwin Che MSW - 11/14/2023 9:53 AM EDT Lesli left message for patient to return SW call to discuss home care needs. Lesli does not see any mention of status of guardianship appointment for patient. Lesli will discuss further with patient and when she returns Sw call. [facility]05-17-2024 Telephone encounter Note* Telephone Encounter - Sharon Mayer RN - 11/14/2023 9:16 AM EDT Faxed completed signed last OV note from 11/12/23 to PA Department with [employer] fax # [phone]. [facility]05-17-2024 Miscellaneous Notes* Telephone Encounter - Sharon Mayer RN - 11/14/2023 9:16 AM EDT Faxed completed signed last OV note from 11/12/23 to PA Department with [employer] fax # [phone]. * Telephone Encounter - Loan Johnston MA [...] this we would fax them to # [phone]. documented in this encounterElyria [facility]05-17-2024 NoteHNO ID: [id number] Author: ORIN SOSA APRN.TREE AND SHRUB TECHNICIAN Service: ? Author Type: Nurse Practitioner Type: Progress Notes Filed: 11/14/2023 07:13 Note Text: Sherwin, I filled out the paper work for emergency guardianship and Felipe was going to take over from there. You are correct, the son was willing to be guardian and APS was going to help facilitate that.[facility] 11-14-2023 History of Present illness Narrative* Orin Sosa APRN.TREE AND SHRUB TECHNICIAN - 11/14/2023 7:12 AM EDT Sherwin, I filled out the paper work for emergency guardianship and Felipe was going to take over from there. You are correct, the son was willing to be guardian and APS was going to help facilitate that. * Peter Ellis MD - 11/12/2023 2:29 PM EDT This note was created using SoupQubester. Subjective Steve Vieira is a 78 year [...] walking from home to her appointment. Eats [employer] and [employer]. Has cat. States trying to Was at [...] wants her to move where they are ([place] and [place]). Has a friend who lives [place]--prefers to move there. Kids were here after when she was transferred to [facility] then had to go back to their homes. Not sure about her meds but gets from [facility]. Wants CG so can check sugars. Feet completely numb--chronic. [...] subcutaneously one time a week. Gets through [employer] PAP. levothyroxine (SYNTHROID) 25 mcg tablet Take 1 tablet by mouth every Friday,Friday,Friday. Take on empty stomach. For thyroid. Add to the levothyroxine 50 mcg once daily dosing but just on Fri-Fri-Fri empagliflozin (JARDIANCE) 25 mg tablet Take 1 tablet by mouth daily with breakfast. Gets through [employer] PAP. ferrous sulfate 325 mg (65 mg [...] Lymph 1.00 - 4.00 k/uL 1.20 1.23 Ziebach% % 6.4 7.8 Abs Ziebach <0.87 k/uL 0.34 0.36 Eosin% % 1.7 [...] Blood- Glucose Meter,Continuous (FREESTYLE PILAR 3 READER) misc Blood-Glucose Sensor (FREESTYLE PILAR 3 SENSOR) julisa Needs CGM so can make better decisions about meals and to help guide medication adjustments. 2. Urinary incontinence without sensory awareness N39.42 3. Weakness R53.1 Multifactorial. Out of control DM contributes. Monitor for now. Consider PT. May need to be in assisted living or usp if not adequate help to stay home [...] falls. Peter Ellis MD documented in [facility]05-[facility]-2024 Telephone encounter Note * Telephone Encounter - Loan Johnston MA - 11/13/2023 3:32 PM EDT Faxed office notes/A1c values with additonal question form Loan Johnston MA [facility]05-16-2024 Telephone encounter Note* Telephone Encounter - Sharon Mayer RN - 11/13/2023 11:49 AM EDT Ethan with the PA Department with [employer] called and reports they need the notes regarding the Free Style Pilar. I let him know that they needed to be signed and as soon as the provider does this we would fax them to # [phone]. [facility]05-15-2024 NoteHNO ID: [id number] Author: PETER ELLIS MD Service: ? Author Type: Physician Type: Progress Notes Filed: 11/14/2023 09:10 Note Text: This note was created using ClearCareriter. Subjective Steve Vieira is a 78 year [...] walking from home to her appointment. Eats [employer] and [employer]. Has cat. States trying to Was at hospital then went to [facility]. Not sure when went home. State a lot of people had amputations. Did rehab then went home. No home health after was sent home except for maybe they came to talk to her. Mouth dry. Sugars not checked at all. Urinary incontinence. Always hungry. Meals on Wheels. Kids order food for her. States family wants her to move where they are ([place] and [place]). Has a friend who lives [place]--prefers to move there. Kids were here after when she was transferred to [facility] then had to go back to their homes. Not sure about her meds but gets from [place]. Wants CG so can check sugars. Feet completely numb--chronic. [...] subcutaneously one time a week. Gets through [employer] PAP. levothyroxine (SYNTHROID) 25 mcg tablet Take 1 tablet by mouth every Friday,Friday,Friday. Take on empty stomach. For thyroid. Add to the levothyroxine 50 mcg once daily dosing but just on Fri-Fri-Fri empagliflozin (JARDIANCE) 25 mg tablet Take 1 tablet by mouth daily with breakfast. Gets through [employer] PAP. ferrous sulfate 325 mg (65 mg [...] 57.2 Abs Neut (ANC) (more content not included)...[facility] 10-31-2023 Telephone encounter Note* Telephone Encounter - Loraine Johnson LPN - 10/31/2023 12:03 PM EDT Labs in process [facility]05-03-2024 Miscellaneous Notes* Telephone Encounter - Loraine [...] then. Roula Woodall LPN documented in [facility] Telephone encounter Note * Telephone Encounter - Orin Sosa APRN.CNP - 10/31/2023 11:20 AM EDT Please let lab know orders placed. [facility]05-03-2024 Telephone encounter Note* Telephone Encounter - Roula Woodall LPN - 10/31/2023 11:05 AM EDT Patient here to have labs drawn for OV with PCP on 11/12/23. Waiting down front and can call Julia at ext [phone] to update pt. Last OV 08/25/23 with labs done then. Roula Woodall LPN [facility]02-28-2024 Miscellaneous Notes* Telephone Encounter - Augusto [...] may prefer to have this done at [facility] since transportation is an issue. Please see where she would like to do this and if preference is [facility] then fax order. Thanks. documented in this encounterElyria [facility] Hospital02-26-2024 NoteHNO ID: [id number] Author: ORIN SOSA APRN.CNP Service: ? Author Type: Nurse Practitioner Type: Progress Notes Filed: 08/25/2023 12:56 Note Text: SUBJECTIVE Steve Vieira is a 78 year old female here today for a check up on her medical problems. Chief Complaint Patient presents with: [facility] ER follow up - UTI HPI Steve Vieira is a 78 year old female. She is an established patient of Peter Ellis MD. Here today for follow up, she is a poor historian. Recently seen at [facility] on 08/15, records viewed in care everywhere and found she was admitted 08/15 with discharge 08/16 or 08/17. Diagnosis of dehydration, weakness, hyperglycemia, acute UTI and failure to thrive. There is concerns of her living by herself currently and needing to change her current living situation to promote safety. She was discharged to a SNF ([facility] [place]) 08/16 and unclear when she was discharged [...] by mouth daily with breakfast. Gets through [employer] PAP. ferrous sulfate 325 mg (65 mg [...] is 1/5. Psychiatric: Attention (more content not included)...[facility]02-17-2024 Discharge summary Author Carl Couch [facility] August 16, 2023 4:16pm Note Date/Time August 16, 2023 4:16pm [facility] Medical Records Department [address] [place] [address] Discharge Summary 08/16/23 1612 MR#: [id number] Acct: [id number] Name: STEVE VIEIRA Rep #:[id number] : 1945 78 From: Carl Couch DO PCP: Dr. Peter Ellis MD Status:AD M IN Location: MS3 PS240-1 Providers Date of Admission: 08/15/23 Primary Care [...] she would benefit to going to a fdc facility for further rehab. * Plan for discharge to fdc facility Chronic conditions: * Hyperlipidemia - Resume [...] Catheterized Urine Culture - Preliminary GNR lactose roofer vinyl coating D/C Instructions Discharge Diet: 2000 Calorie Control [...] in before D/C Order can be placed): [facility] Facility Charges/Coding Visit Charges Inpatient E&M: 56222 Disch Hosp >30min 08/16/23 1616 <Electronically signed by Carl Couch DO> Cosigner Signature (if applicable): CC: Dr. Carl Couch DO; Dr. Peter Ellis MD~ Signed [facility] Work Phone: 1(504) 661-733102-17-2024 Discharge summary Author Carl Couch [facility] August 16, 2023 4:12pm Note Date/Time August 16, 2023 4:04pm [facility] Medical Records Department [address] [place] [address] Transfer to Extended Care MR#: [id number] Acct: [id number] Name: STEVE VIEIRA Rep #:[id number] : 1945 78 From: Carl Couch DO PCP: Dr. Peter Ellis MD Status:AD M IN Certification of patient admission REQUIRED AT TIME OF ADMISSION. I CERTIFY THAT POST-HOSPITAL ECF SERVICES ARE REQUIRED TO BE GIVEN ON AN IN-PATIENT BASIS BECAUSE OF THE ABOVE NAMED PATIENT'S NEED FOR HALFWAY CARE ON A CONTINUING BASIS FOR THE [...] she would benefit to going to a fdc facility for further rehab. * Plan for discharge to fdc facility Chronic conditions: * Hyperlipidemia - Resume [...] in before D/C Order can be placed): [facility] Facility 08/16/23 1612 <Electronically signed by Carl Couch DO> Cosigner Signature (if applicable): CC: Dr. Mitzy Pratt DO; Dr. Peter Ellis MD ~ [facility] Work Phone: 1(260) 245-895702-17-2024 Progress note Author Carl Couch [facility] August 16, 2023 1:09pm Note Date/Time August 16, 2023 7:51am [facility] Medical Records Department [address] [place] [address] Progress Note - Hospitalist 08/16/23 0751 MR#: [id number] Acct: [id number] Name: STEVE VIEIRA Rep #:[id number] : 1945 78 From: Carl Couch DO PCP: Dr. Peter Ellis MD Status:AD M IN [facility] Reason for Visit Reason for Visit: Diagnoses [...] she would benefit to going to a fdc facility for further rehab. * Plan for discharge to fdc facility Chronic conditions: * Hyperlipidemia - Resume [...] sq daily. Charges/Coding Visit Charges Inpatient E&M: 37611 Subs Hosp L2 08/16/23 7284 <Electronically signed by Carl Couch DO> Cosigner Signature (if applicable): CC: ~ Signed [facility] Work Phone: 1(585) 201-964002-16-2024 Progress note Author Carl Couch [facility] August 15, 2023 3:05pm Note Date/Time August 15, 2023 8:09am [facility] Medical Records Department [address] [place] [address] Progress Note - Hospitalist 08/15/23 0802 MR#: [id number] Acct: [id number] Name: STEVE VIEIRA Rep #:[id number] : 1945 78 From: Carl Couch DO PCP: Dr. Peter Ellis MD Status:AD M IN Location: [place] 290232-1 Reason for Visit Reason for Visit: Diagnoses [...] (Auto) 69.3, Lymph % (Auto) 17.4 L, Ziebach % (Auto) 10.7 H, Eos % (Auto) [...] Sl. Cloudy, Urine pH 7.0, Ur Specific Huron 1.010, Urine Protein Negative, Urine Glucose (UA) [...] 71.6 H, Lymph % (Auto) 18.4 L, Ziebach % (Auto) 6.9, Eos % (Auto) 1.5, [...] OT CM/SW * Plan for discharge to fdc facility Chronic conditions: * Hyperlipidemia - Resume [...] sq daily. Charges/Coding Visit Charges Inpatient E&M: 72674 Subs Hosp L2 08/15/23 1505 <Electronically signed by Carl Couch DO> Cosigner Signature (if applicable): CC: ~ Signed [facility] Work Phone: 1(223) 127-656802-16-2024 Miscellaneous Notes* Telephone Encounter - Rich Richmond LPN - 08/15/2023 9:11 AM EST Spoke with Cristin and pt was discharged on Aspirin. Pt is back in the hospital per Cristin. Rich Richmond LPN * Telephone Encounter - Marimar Shields LPN - 08/14/2023 10:29 AM EST Attempted to contact Cristin [facility] but no answer. Left providers message [...] - 08/13/2023 3:04 PM EST Cristin with [facility] calling to let you know did [...] booked. Rich Richmond LPN documented in this encounterElyria [facility] Hospital02-16-2024 Discharge summary Author Lola Marquez [facility] August 15, 2023 6:49am Note Date/Time August 14, 2023 10:36pm [facility] Medical Records Department [address] [place] [address] Emergency Department Summary 08/14/23 MR#: [id number] Acct: [id number] Name: STEVE VIEIRA Rep #:[id number] : 1945 78 From: Lola Marquez DO PCP: Dr. Peter Ellis MD Status:AD M IN Location: [place] [address] HPI History of Present Illness Chief Complaint: Weakness Detail of Chief Complaint: Generalized weakness Informant: patient and EMS Narrative Narrative: Patient presents to the emergency department via EMS from home. She called for help because she is unable to care for herself. Patient had recent admission [facility] and she was set up with protective services and Meals on Wheels. Patient states that she is having a hard time even getting up. She is only had a tomato to eat today. Patient urinating frequently. Denies fevers or chills or sweats. She denies chest pain or shortness of breath. She denies abdominal pain. [facility] Medical History (Updated 08/15/23 @ 00:[address] Lola Marquez, DO) Diabetes Head injury Kidney stones Home [...] (Auto) 69.3 Lymph % (Auto) 17.4 L Ziebach % (Auto) 10.7 H Eos % (Auto) [...] Sl. Cloudy Urine pH 7.0 Ur Specific Huron 1.010 Urine Protein Negative Urine Glucose (UA) [...] Provider] - Disposition Disposition: Acute Care Hospital [facility] What to do if you have Problems For any increased pain, shortness of breath, bleeding, nausea or vomiting, chestpain, or any unexpected problems, contact your Primary Care Provider. Call [facility] ([phone]) or report to the closest Emergency Room. Call 911 if necessary. 08/15/23 0649 <Electronically signed by Lola Marquez DO> Cosigner Signature (if applicable): CC: Dr. Peter Ellis MD ~ Signed [facility] Work Phone: 1(617) 192-748902-16-2024 History and physical note Author Mitzy Perez [facility] August 15, 2023 5:31am Note Date/Time August 15, 2023 1:25am [facility] Medical Records Department [address] [place] [address] H&P Exam - Hospitalist 08/15/23 0100 MR#: [id number] Acct: [id number] Name: STEVE VIEIRA Rep #:[id number] : 1945 78 From: Mitzy Serna DO PCP: Dr. Peter Ellis MD Status:AD M IN Location: [facility] SO524-4 HPI - General General Date of Admission: [...] August 12, 2023 for treatment of adult yxkrefg-le-wqfsku who re-presents to [facility] ER complaining of hyperglycemia and being [...] in the setting of previously diagnosed adult zcpylsn-zq-dhfysc causing her not to be able to care for herself any longer at home and she was then admitted to the general medical floor for ongoing care for a stay that is expected to be greaterthan 48 hours. [facility] Medical History Diabetes Head injury [...] (Auto) 69.3, Lymph % (Auto) 17.4 L, Ziebach % (Auto) 10.7 H, Eos % (Auto) [...] Sl. Cloudy, Urine pH 7.0, Ur Specific Huron 1.010, Urine Protein Negative, Urine Glucose (UA) [...] August 12, 2023 for treatment of adult ncbvyva-ro-khbkju with patient needing ECF placement as she [...] 55 minutes. Charges/Coding Visit Charges Inpatient E&M: 68933 Init Hosp L2 08/15/23 0531 <Electronically signed by Mitzy Pratt DO> Cosigner Signature (if applicable): CC: Dr. Mitzy Pratt DO; Dr. Peter Ellis MD~ Signed [facility] Work Phone: [phone]) 673-442902-15-2024 Miscellaneous Notes* Telephone Encounter - Sharon Mayer RN - 08/14/2023 3:23 PM EST Letitia BALLESTEROS from [facility] called and is notified of providers [...] RN - 08/14/2023 12:07 PM EST Letitia LESLI from [facility] calls and states that she was out to see patient today for 3 hours. Letitia reports that patient is not safe to at home but is refusing to go to [facility]. Letitia reports thatliving conditions are unlivable. Patient [...] advise, Melina Keys RN documented in this encounterElyria [facility] Hospital02-14-2024 NoteHNO ID: [id number] Author: RICH RICHMOND LPN Service: ? Author Type: LICENSED NURSE Type: Progress Notes Filed: 08/15/2023 09:20 Note Text: TRANSITION CARE MANAGEMENT (TCM) INITIAL CONTACT Chart Writer Outreach Provider Action/FYI:06-14-24 pt is back in the hosptial Left a message 08-13-23 for pt to call the office to schedule a [facility] Follow up Discharged 08-12-23. Left another message 08-14-23 to call the office and ask to speak to a nurse. Need to do TCM and schedule a hospital follow up. Pt back in the hospital, TCM was not completed. Closing. Rich Richmond LPN TRANSITION CARE MANAGEMENT INITIAL OUTREACH DOCUMENTATION: No flowsheet data found. SUMMARY: -Pt discharged from [facility] on 08/12/23. -Admitted for: hyperglycemia, failure to [...] from recent hospitalization: [facility] History of Present illness Narrative* Rich Richmond LPN - 08/13/2023 3:22 PM EST TRANSITION CARE MANAGEMENT (TCM) INITIAL CONTACT Chart Writer Outreach Provider Action/FYI:06-14-24 pt is back in the hosptial Left a message 08-13-23 for pt to call the office to schedule a [facility] Follow up Discharged 08-12-23. Left another message 08-14-23 to call the office and ask to speak to a nurse. Need to do TCM and schedule a hospital follow up. Pt back in the hospital, TCM was not completed. Closing. Rich Richmond LPN TRANSITION CARE MANAGEMENT INITIAL OUTREACH DOCUMENTATION: No flowsheet data found. SUMMARY: -Pt discharged from [facility] on 08/12/23. -Admitted for: hyperglycemia, failure to [...] back in the hospital documented in this encounterElyria [facility] Hospital02-14-2024 NotePatient Outreach (INTMWS) STEVE VIEIRA ([id number]) 1945 F Date Time Provider Department 08/13/23 PETER ELLIS INTMWS During your visit today, we recorded the following information about you: Rich Richmond LPN 08/15/2023 9:20 AM Signed TRANSITION CARE MANAGEMENT (TCM) INITIAL CONTACT Chart Writer Outreach Provider Action/I:06-14-24 pt is back in the hosptial Left a message 08-13-23 for pt to call the office to schedule a [facility] Follow up Discharged 08-12-23. Left another message 08-14-23 to call the office and ask to speak to a nurse. Need to do TCM and schedule a hospital follow up. Pt back in the hospital, TCM was not completed. Closing. Rich Richmond LPN TRANSITION CARE MANAGEMENT INITIAL OUTREACH DOCUMENTATION: No flowsheet data found. SUMMARY: -Pt discharged from [facility] on 08/12/23. -Admitted for: hyperglycemia, failure to [...] of meclizine Date Reviewed: 02/28/2023 Reviewed by: Ruola Woodall LPN - Fully Assessed Reason for [...] by mouth daily with breakfast. Gets through [employer] PAP. - ferrous sulfate 325 mg [...] 08/13/2021 Encounter Status:Closed by RICH RICHMOND on 08/15/23[facility] Consult note Author Macarena Doyle [facility] August 12, 2023 1:13pm Note Date/Time August 12, 2023 1:13pm [facility] Medical Records Department [address] [place] [address] Counseling Note - Pharmacy 08/12/231312 MR#: [id number] Acct: [id number] Name: STEVE VIEIRA Rep #:[id number] : 1945 78 From: Macarena Doyle PCP: Dr. Peter Ellis MD Status:AD M IN Location: [facility] UA260-[address] Med Reconciliation Pharmacy Service has performed discharge [...] Signature (if applicable): Date CC: ~ Signed [facility] Work Phone: 1(706) 442-606002-13-2024 Discharge summary Author Wes Alva [facility] August 12, 2023 1:06pm Note Date/Time August 12, 2023 12:59pm [facility] Medical Records Department [address] [place] [address] Instructions for Home/Discharge Instructions 08/12/23 1258 MR#: [id number] Acct: [id number] Name: STEVE VIEIRA Rep #:[id number] : 1945 78 From: Wes Alva DO [...] MD; Dr. Peter Ellis MD ~ Signed [facility] Work Phone: 1(196) 996-836202-13-2024 Miscellaneous Notes* Telephone Encounter - Yesenia Yarbrough [...] - 08/11/2023 12:49 PM EST Liberty with [facility] HH calls to report pt is going to be discharged from [facility] today with orders for Nursing, PT, and OT. Liberty is requesting a VO from provider that pcp will follow pt while in HH. Alta Ortiz LPN documented in this encounterElyria Memorial Hospital02-12-2024 Progress note Author Wes Alva [facility] August 11, 2023 5:13pm Note Date/Time August 11, 2023 5:06pm [facility] Medical Records Department [address] [place] [address] Progress Note - Hospitalist 08/11/23 1703 MR#: [id number] Acct: [id number] Name: DARIELSTEVE Ciaran Rep #:[id number] : 1945 78 From: Wes Alva DO PCP: Dr. Peter Ellis MD Status:AD M IN Location: MS3 MI364-5 Reason for Visit Reason for Visit: Diagnoses [...] % (Auto) 66.6, Lymph % (Auto) 20.9, Ziebach % (Auto) 8.9, Eos % (Auto) 1.7, [...] discharged home rather than go to a fdc facility, due to her anemia today however [...] 35 minutes Charges/Coding Visit Charges Inpatient E&M: 91194 Subs Hosp L2 08/11/23 1713 <Electronically signed by Wes Alva DO> Cosigner Signature (if applicable): CC: ~ Signed [facility] Work Phone: 1(478) 831-975502-11-2024 Progress note Author Mitzy Strauss [facility] August 10, 2023 9:52am Note Date/Time August 10, 2023 7:17am [facility] Medical Records Department [address] [place] [address] Progress Note - Hospitalist 08/10/23714 MR#: [id number] Acct: [id number] Name: STEVE VIEIRA Rep #:[id number] : 1945 78 From: Mitzy Strauss MD PCP: Dr. Peter Ellis MD Status:AD M IN Location: [place] [address]-1 Reason for Visit Reason for Visit: Diagnoses [...] 76.1 H, Lymph % (Auto) 14.9 L, Ziebach % (Auto) 6.6, Eos % (Auto) 0.9, [...] Clarity Clear, Urine pH 5.0, Ur Specific Huron 1.015, Urine Protein 15 H, Urine Glucose [...] % (Auto) 65.9, Lymph % (Auto) 20.6, Ziebach % (Auto) 9.7, Eos % (Auto) 1.7, [...] 13:03 EST Reading Location ID and State: [facility] / [place] , Service support , Chest X-Ray 08/09/23 [...] requested for PT OT eval and social science teacher to assist with discharge planning ? 08/10/2023 [...] documentation, 50minutes Charges/Coding Visit Charges Inpatient E&M: 45888 Subs Hosp L3 08/10/23 0952 <Electronically signed by Mitzy Strauss MD> Wendyigner Signature (if applicable): CC: ~ Signed [facility] Work Phone: 1(633) 221-624102-10-2024 Discharge summary Author Santos Mckeon [facility] August 09, 2023 4:50pm Note Date/Time August 09, 2023 11:52am [facility] Medical Records Department [address] [place] [address] Emergency Department Summary 08/09/23 MR#: [id number] Acct: [id number] Name: STEVE VIEIRA Rep #:[id number] : 1945 78 From: Clayton LIRA PCP: Dr. Peter Ellis MD Status:AD M IN Location: [facility] DN750-4 [facility] <PANKAJ Harris - Last Filed: [...] states that she is hungry and thirsty. [facility] <PANKAJ Harris - Last Filed: 08/09/23 14:00> [facility] Medical History Head injury Home [...] <PANKAJ Harris - Last Filed: 08/09/23 14:00> [facility] Lab Data Labs: Laboratory Results [...] 76.1 H Lymph % (Auto) 14.9 L Ziebach % (Auto) 6.6 Eos % (Auto) 0.9 [...] Clarity Clear Urine pH 5.0 Ur Specific Huron 1.015 Urine Protein 15 H Urine Glucose [...] Comments: Sinus rhythm, rate of 72 bpm, MT 190 ms, QRS duration 78 ms, no [...] Mckeon MD - Last Filed: 08/09/23 13:32> [facility] Narrative Medical decision making narrative: I have [...] 76.1 H Lymph % (Auto) 14.9 L Ziebach % (Auto) 6.6 Eos % (Auto) 0.9 [...] Clarity Clear Urine pH 5.0 Ur Specific Huron 1.015 Urine Protein 15 H Urine Glucose [...] thrive, Chronic anemia Disposition Disposition: Acute Care [facility] What to do if you have Problems For any increased pain, shortness of breath, bleeding, nausea or vomiting, chest pain, or any unexpected problems, contact your Primary Care Provider. Call [facility] ([phone]) or report to the closest Emergency Room. Call 911 if necessary. 08/09/23 1400 <Electronically signed by Clayton LIRA> Cosigner Signature (if applicable): 08/09/23 1650 <Electronically signed by Santos Mckeon MD> CC: Dr. Peter Ellis MD ~ Signed [facility] Work Phone: 1(282) 758-455702-10-2024 History and physical note Author Mitzy Strauss [facility] August 09, 2023 2:25pm Note Date/Time August 09, 2023 1:59pm [facility] Medical Records Department [address] [facility] [place] [address] H&P Exam - Hospitalist 08/09/23 1359 MR#: [id number] Acct: [id number] Name: STEVE VIEIRA Rep #:[id number] : 1945 78 From: Mitzy Strauss MD [...] patient for subsequent inpatient workup [facility] Medical History Head injury Home [...] 76.1 H, Lymph % (Auto) 14.9 L, Ziebach % (Auto) 6.6, Eos % (Auto) 0.9, [...] Clarity Clear, Urine pH 5.0, Ur Specific Huron 1.015, Urine Protein 15 H, Urine Glucose [...] requested for PT OT eval and social science teacher to assist with discharge planning 2. Dehydration [...] 18 minutes. Charges/Coding Visit Charges Inpatient E&M: 07038 Init Hosp L3 Procedures Hospitalists Procedures: 64314 Advncd Care Plan 30 Min 08/09/23 1425 <Electronically signed by Mitzy Strauss MD> Cosigner Signature (if applicable): CC: Dr. Mitzy Strauss MD; Dr. Peter Ellis MD~ Signed [facility] Work Phone: 1(415) 794-330612-18-2023 NotePatient Outreach (AMBPHARMSVC) STEVE VIEIRA ([id number]) 1945 F Date Time Provider Department 06/16/23 JADON DELGADO During your visit today, we recorded the following information about you: Gume (Dramatic Coach)Sharon 07/17/2023 3:08 AM Signed This patient has been referred by pharmacy for player development executive patient assistance program clin application specialist. Patient is currently enrolled in the patient assistance program through 2022. This encounter is for the program renewal through 2023. STATUS OF APPLICATION: Can be viewed under the encounter Additional Documentation > SmartForms: [facility] RX AMB CLINIC PATIENT ASSISTANCE Completed forms sent to the player development executive will be available under Scanned Documents in the patient's chart. The finalized form can be found under PAP_Medication Name_Complete. PAP Flight Test Shop Mechanic Team will submit and track progress on the completed PAP application. Please do NOT fax to player development executive unless directed by the PAP Flight Test Shop Mechanic Team. Please see SmartForm described above for specifics. Please DO NOT close this encounter. Sent to patient: Contacted patient to verify information for application. Sent to prescriber: Sent to prescriber. Confirmation Received. Sent to player development executive: Allergies As of Date: 06/16/2023 Noted Allergy [...] subcutaneously one time a week. Gets through [employer] Cares PAP. - empagliflozin (JARDIANCE) 25 mg tablet Take 1 tablet by mouth daily with breakfast. Gets through [employer] PAP. - ferrous sulfate 325 mg (65 [...] 08/13/2021 Encounter Status:Closed by INNA MCWILLIAMS on 07/17/23[facility] Miscellaneous Notes* Telephone Encounter - Renetta Abernathy LPN - 04/22/2023 1:40 PM EDT MILLA Rabago completed these. They have been faxed back to the company. * Telephone Encounter - Sherwin Che MSW - 04/21/2023 10:20 AM EDT Lesli spoke with patient and verified that patient Jardiance medication is the only medication that she applies to [facility] for assistance. Lesli will take forms to Dr. Ellis office for prescription completion. documented in this encounterElyria [facility]09-06-2023 Miscellaneous Notes* Telephone Encounter - Sherwin Che MSW - 03/05/2023 12:01 PM EDT Sw spoke with patient in regards to [employer] and discount cab vouchers. Sw has updated brochures with transit cost and stops. Sw will mail [employer] brochures and [facility] resource guide to patient [...] other social service needs. documented in this encounterElyria [facility] Hospital09-01-2023 Instructions* Patient Instructions* Peter Ellis MD - 02/28/2023 3:12 PM EDT Start iron tablet over the counter 1 pill on Friday, Friday and Friday. Dose is up to you. documented in this encounterElyria Memorial Hospital09-01-2023 NoteHNO ID: [id number] Author: Peter Ellis MD Service: ? Author Type: Physician Type: Progress Notes Filed: 03/31/2023 12:27 AM Note Text: This note was created using ClearCareriter. Subjective Steve Vieira is a 77 year [...] by mouth daily with breakfast. Gets through [facility] PAP. ferrous sulfate 325 mg (65 [...] (H) Estimated Average Gluc (more content not included)...[facility] 02-28-2023 History of Present illness Narrative* Peter Ellis MD - 02/28/2023 2:54 PM EDT This note was created using NoteWriter. Subjective Steve L Dariel is a 77 year old female. Patient [...] subcutaneously one time a week. Gets through [facility] PAP. empagliflozin (JARDIANCE) 25 mg tablet Take 1 tablet by mouth daily with breakfast. Gets through [employer] PAP. ferrous sulfate 325 mg (65 mg [...] the date of the service which included bxkl-nm-wawn patient care, completing clinical documentation, obtaining and/or reviewing separately obtained history, performing a medically appropriate examination, counseling and educating the patient/family/caregiver, and ordering medications, tests, or procedures. Peter Ellis MD documented in this encounterElyria Memorial Hospital08-17-2023 Miscellaneous Notes* Telephone Encounter - [...] appt. Radha Lea MA documented in this encounterElyria Memorial Hospital03-16-2023 Miscellaneous Notes* Telephone Encounter - Jadon Delgado RPh - 09/12/2022 12:08 PM EDT During PharmD visit today, it was noted patient has NOT been taking many of her medications. Patient would benefit greatly from adherence packaging. The following prescriptions need sent to [facility] and are pended for PCP/TREE AND SHRUB TECHNICIAN's signature: Requested Prescriptions Pending Prescriptions Disp Refills [...] Primary Care Clinical Pharmacist documented in this encounterElyria Memorial Hospital03-16-2023 History of Present illness Narrative* Jadon Delgado [facility] - 09/12/2022 11:00 AM EDT Primary Care [...] [facility]. Said [facility] pharmacy is [facility] - needs all meds sent to [facility]. [...] changed insurance; thinks [facility] preferred Rx coverage: [facility] Medicare Affordability: no issues Diabetes [...] at night if can't sleep.Denies any hx NE/stroke. Denies GI issues though problem list indicates [...] -- ran out of the 10mg tabs; [facility] shadia completed for 25mg tabs --> PharmD called [facility]) (on hold for ~30 mins); confirmed she [...] benefit greatly from adherence packaging. PharmD called [facility] to see if theyaccept patient's insurance and technician chemical cleaning believes it would be accepted. PharmD provided patient info and insurance information. Will have all prescriptions sent to [facility] through their adherence packaging and mail delivery service Patient due for labwork. Requested she have drawn in the next 1-2 weeks, she was agreeable to doingso. 2. Type 2 diabetes mellitus without complication, without long-term current use of insulin ([facility]) - ICD9: 250.00, ICD10: E11.9 A1c goal < 8%; uncontrolled (last A1c 11.9%); no SMBG log to review; patient reports consistently taking metformin and Trulicity and tolerating fine; is out of glipizide and Jardiance --> needsscript sent to new pharmacy for glipizide and need to contact [facility] regarding Jardiance status; patient interested in [...] verbalized understanding of instructions. Jadon Delgado PharmD, [facility] Primary Care Clinical Pharmacist The majority of the pharmacy visit (> 50%) was spent counseling and/or coordinating care for thepatient. interaction: telephonic time was 90 minutes. documented in this encounterElyria Memorial Hospital01-26-2023 History of Present illness Narrative* [...] modifications and med adherence encouraged. Consult to [facility] to see if qualifies for Medicaid. [...] sleeping in Pharmacy: [facility] Rx coverage: [facility] Medicare Affordability: no issues Diabetes [...] on 09/12. Patient verbalized understanding of instructions. Jaodn Delgado PharmD, [facility] Primary Care Clinical Pharmacist The majority of the pharmacy visit (> 50%) was spent counseling and/or coordinating care for thepatient. interaction: face to face time was 45 minutes. documented in this encounterElyria Memorial Hospital01-26-2023 Instructions* Patient Instructions* Jadon Delagdo RPh - 07/25/2022 2:30 PM EST Call Medicaid Shared Services number [phone], to reach out to our area services [...] to the 25mg tablets. documented in this encounterElyria Memorial Hospital01-10-2023 Miscellaneous Notes* Telephone Encounter - Renetta Abernathy LPN - 07/09/2022 2:28 PM EST Rec'd fax from [facility] patient assistance program. This says pt is approved from 07/09/22 to 06/29/2023 unless pts circumstances changes. documented in this encounterElyria Memorial Hospital12-22-2022 Miscellaneous Notes* Telephone Encounter - OSITO Newsome - 06/20/2022 2:32 PM EST Lesli and patient discussed Medicare Savings Programs ie. [...] provided patient with Medicaid Shared Services number [phone], to reach out to our area services to see about material that they could provide to patient regarding how Medicaid assistance works with Medicare. Sw noted that calling above number can be screened over the phone for Medicaid. Patient reports that she will call after the of the year as she is busy with the holidays. documented in this encounterElyria Memorial Hospital12-22-2022 History of Present illness Narrative* Jadon Moisego, [facility] - 06/20/2022 11:00 AM EST Primary [...] verbalized understanding of instructions. Jadon Delgado PharmD, [facility] Primary Care Clinical Pharmacist The majority of the pharmacy visit (> 50%) was spent counseling and/or coordinating care for thepatient. interaction: face to face time was 65 minutes. documented in this encounterElyria Memorial Hospital12-22-2022 Instructions* Patient Instructions* Jadon Delgado [...] if you need refills. documented in this encounterElyria Memorial Hospital12-01-2022 Miscellaneous Notes* Telephone Encounter - Jadon Delgado RPh - 05/30/2022 12:44 PM EST PAP technicians completed PAP application. PCP portion placed on PCP's desk. Will get patient's signatures at upcoming appt on 06/20. Jadon Delgado PharmD, [facility] Primary Care Clinical Pharmacist documented in this encounterCleveland [id number] Miscellaneous Notes* Telephone Encounter - Quyen Ramos [...] and advise. Quyen Ramos documented in this encounterElyria Memorial Hospital10-31-2022 Miscellaneous Notes* Telephone Encounter - Jadon Delgado RPh - 04/29/2022 9:43 AM EDT Patient recently referred by PCP to [facility] for DM mngt Called patient to schedule initial appt Unable to reach patient, no dialtone when calling. 3rd outreach attempt for patient, will plan to send letter. Jadon Delgado PharmD, [facility] Primary Care Clinical Pharmacist Malcolm Torres [facility] documented in this encounterElyria Memorial Hospital10-18-2022 Miscellaneous Notes* Telephone Encounter - HUGO Nicole - 04/16/2022 10:57 AM EDT Telephoned the patient to schedule a new Primary Care pharmacy appt. Unable to leave a message. Phone saying the call did not go through. documented in this encounterElyria Memorial Hospital07-13-2022 Instructions* Patient Instructions* Harsha rOtiz MD - 01/09/2022 10:56 AM EDT Images from the original note were not included. documented in this encounterElyria Memorial Hospital07-13-2022 History of Present illness Narrative* [...] components. Harsha Ortiz MD documented in this encounterElyria Memorial Hospital06-14-2022 History of Present illness Narrative* Peter Ellis MD - 12/11/2021 2:20 PM EDT This note was created using ClearCareriter. Subjective Steve Vieira is a 76 year [...] TIBC Peter Ellis MD documented in this encounterElyria Memorial Hospital03-28-2022 Miscellaneous Notes* Telephone Encounter - Maciej Lopez RPh - 09/24/2021 4:40 PM EDT This encounter was opened in error. @[email or web address]@ documented in this encounterElyria Memorial Hospital02-14-2022 History of Past illness Narrative* [...] of this encounter (statuses as of 03/31/2023) [facility] History of Past illness Narrative* [...] of this encounter (statuses as of 04/22/2023) [facility] History of Past illness Narrative* [...] of this encounter (statuses as of 08/12/2023) [facility] History of Past illness Narrative* [...] of this encounter (statuses as of 08/14/2023) [facility] of Past illness Narrative* [...] of this encounter (statuses as of 08/15/2023) [facility] History of Past illness Narrative* [...] of this encounter (statuses as of 08/29/2023) [facility] History of Past illness Narrative* Problem Noted Date Resolved Date Uncontrolled type 2 diabetes mellitus without complication, without long-term current use of insulin 01/25/2016 08/20/2018 HYPOTHYROIDISM NOS 03/24/2007 04/02/2015 DIABETES MELLITUS TYPE II-UNCOMPL 01/05/2007 04/02/2015 Depressive disorder, not elsewhere classified 04/02/2015 HYPERLIPIDEMIA NEC/NOS 01/05/2007 5 documented as of this encounter (statuses as of 09/24/2021) [facility] History of Past illness Narrative* Problem Noted Date Resolved Date Uncontrolled type 2 diabetes mellitus without complication, without long-term current use of insulin 01/25/2016 08/20/2018 HYPOTHYROIDISM NOS 03/24/2007 04/02/2015 DIABETES MELLITUS TYPE II-UNCOMPL 01/05/2007 04/02/2015 Depressive disorder, not elsewhere classified 04/02/2015 HYPERLIPIDEMIA NEC/NOS 01/05/2007 5 documented as of this encounter (statuses as of 01/09/2022) [facility] of Past illness Narrative* Problem Noted Date Resolved Date Uncontrolled type 2 diabetes mellitus without complication, without long-term current use of insulin 01/25/2016 08/20/2018 HYPOTHYROIDISM NOS 03/24/2007 04/02/2015 DIABETES MELLITUS TYPE II-UNCOMPL 01/05/2007 04/02/2015 Depressive disorder, not elsewhere classified 04/02/2015 HYPERLIPIDEMIA NEC/NOS 01/05/2007 5 documented as of this encounter (statuses as of 02/02/2022) [facility] of [facility] illness Narrative* Problem Noted Date Resolved Date Uncontrolled type 2 diabetes mellitus without complication, without long-term current use of insulin 01/25/2016 08/20/2018 HYPOTHYROIDISM NOS 03/24/2007 04/02/2015 DIABETES MELLITUS TYPE II-UNCOMPL 01/05/2007 04/02/2015 Depressive disorder, not elsewhere classified 04/02/2015 HYPERLIPIDEMIA NEC/NOS 01/05/2007 5 documented as of this encounter (statuses as of 04/16/2022) [facility] of [facility] illness Narrative* Problem Noted Date Resolved Date Uncontrolled type 2 diabetes mellitus without complication, without long-term current use of insulin 01/25/2016 08/20/2018 HYPOTHYROIDISM NOS 03/24/2007 04/02/2015 DIABETES MELLITUS TYPE II-UNCOMPL 01/05/2007 04/02/2015 Depressive disorder, not elsewhere classified 04/02/2015 HYPERLIPIDEMIA NEC/NOS 01/05/2007 5 documented as of this encounter (statuses as of 04/29/2022) [facility] of [facility] illness Narrative* Problem Noted Date Resolved Date Uncontrolled type 2 diabetes mellitus without complication, without long-term current use of insulin 01/25/2016 08/20/2018 HYPOTHYROIDISM NOS 03/24/2007 04/02/2015 DIABETES MELLITUS TYPE II-UNCOMPL 01/05/2007 04/02/2015 Depressive disorder, not elsewhere classified 04/02/2015 HYPERLIPIDEMIA NEC/NOS 01/05/2007 5 documented as of this encounter (statuses as of 05/17/2022) [facility] Narrative* Problem Noted Date Resolved Date Uncontrolled type 2 diabetes mellitus without complication, without long-term current use of insulin 01/25/2016 08/20/2018 HYPOTHYROIDISM NOS 03/24/2007 04/02/2015 DIABETES MELLITUS TYPE II-UNCOMPL 01/05/2007 04/02/2015 Depressive disorder, not elsewhere classified 04/02/2015 HYPERLIPIDEMIA NEC/NOS 01/05/2007 5 documented as of this encounter (statuses as of 05/30/2022) [facility] Narrative* Problem Noted Date Resolved Date Uncontrolled type 2 diabetes mellitus without complication, without long-term current use of insulin 01/25/2016 08/20/2018 HYPOTHYROIDISM NOS 03/24/2007 04/02/2015 DIABETES MELLITUS TYPE II-UNCOMPL 01/05/2007 04/02/2015 Depressive disorder, not elsewhere classified 04/02/2015 HYPERLIPIDEMIA NEC/NOS 01/05/2007 5 documented as of this encounter (statuses as of 06/21/2022) [facility] Narrative* Problem Noted Date Resolved Date Uncontrolled type 2 diabetes mellitus without complication, without long-term current use of insulin 01/25/2016 08/20/2018 HYPOTHYROIDISM NOS 03/24/2007 04/02/2015 DIABETES MELLITUS TYPE II-UNCOMPL 01/05/2007 04/02/2015 Depressive disorder, not elsewhere classified 04/02/2015 HYPERLIPIDEMIA NEC/NOS 01/05/2007 5 documented as of this encounter (statuses as of 06/21/2022) [facility] Narrative* Problem Noted Date Resolved Date Uncontrolled type 2 diabetes mellitus without complication, without long-term current use of insulin 01/25/2016 08/20/2018 HYPOTHYROIDISM NOS 03/24/2007 04/02/2015 DIABETES MELLITUS TYPE II-UNCOMPL 01/05/2007 04/02/2015 Depressive disorder, not elsewhere classified 04/02/2015 HYPERLIPIDEMIA NEC/NOS 01/05/2007 5 documented as of this encounter (statuses as of 07/09/2022) [facility] Narrative* Problem Noted Date Resolved Date Uncontrolled type 2 diabetes mellitus without complication, without long-term current use of insulin 01/25/2016 08/20/2018 HYPOTHYROIDISM NOS 03/24/2007 04/02/2015 DIABETES MELLITUS TYPE II-UNCOMPL 01/05/2007 04/02/2015 Depressive disorder, not elsewhere classified 04/02/2015 HYPERLIPIDEMIA NEC/NOS 01/05/2007 5 documented as of this encounter (statuses as of 07/25/2022) [facility] Narrative* Problem Noted Date Resolved Date Uncontrolled type 2 diabetes mellitus without complication, without long-term current use of insulin 01/25/2016 08/20/2018 HYPOTHYROIDISM NOS 03/24/2007 04/02/2015 DIABETES MELLITUS TYPE II-UNCOMPL 01/05/2007 04/02/2015 Depressive disorder, not elsewhere classified 04/02/2015 HYPERLIPIDEMIA NEC/NOS 01/05/2007 5 documented as of this encounter (statuses as of 09/12/2022) [facility] of [facility] illness Narrative* Problem Noted Date Resolved Date Uncontrolled type 2 diabetes mellitus without complication, without long-term current use of insulin 01/25/2016 08/20/2018 HYPOTHYROIDISM NOS 03/24/2007 04/02/2015 DIABETES MELLITUS TYPE II-UNCOMPL 01/05/2007 04/02/2015 Depressive disorder, not elsewhere classified 04/02/2015 HYPERLIPIDEMIA NEC/NOS 01/05/2007 5 documented as of this encounter (statuses as of 09/12/2022) [facility] Narrative* Problem Noted Date Diagnosed Date Resolved Date Uncontrolled type 2 diabetes mellitus without complication, without long-term current use of insulin 01/25/2016 08/20/2018 HYPOTHYROIDISM NOS 03/24/2007 5 DIABETES MELLITUS TYPE II-UNCOMPL 01/05/2007 04/02/2015 Depressive disorder, not elsewhere classified 01/06/20 07 04/02/2015 HYPERLIPIDEMIA NEC/NOS 01/05/200704/02 documented as of this encounter (statuses as of 02/13/2023) [facility] Narrative* Problem Noted Date Diagnosed Date Resolved Date Uncontrolled type 2 diabetes mellitus without complication, without long-term current use of insulin 01/25/2016 08/20/2018 HYPOTHYROIDISM NOS 03/24/2007 5 DIABETES MELLITUS TYPE II-UNCOMPL 01/05/2007 04/02/2015 Depressive disorder, not elsewhere classified 01/06/20 07 04/02/2015 HYPERLIPIDEMIA NEC/NOS 01/05/200704/02 documented as of this encounter (statuses as of 03/05/2023) [facility] Diagnosis OPENED IN ERROR- Primary To allow closing an encounter opened in error (used in SmartSet) documented in this encounter [facility] note* Diagnosis Combined forms of age-related cataract of both eyes- Primary Other and combined forms of senile cataract Type 2 diabetes mellitus without retinopathy (HCC) Type II or unspecified type diabetes mellitus without mention of complication, not stated as uncontrolled Gxh-bsv-wtlftoieikx corneal dystrophy of both eyes documented in this encounter [facility] note* Diagnosis Uncontrolled type 2 diabetes mellitus with hyperglycemia (HCC)- Primary Recurrent kidney stones Calculus of kidney Esophageal reflux Depression, unspecified depression type Hyperlipidemia, unspecified hyperlipidemia type Acquired hypothyroidism Unspecified hypothyroidism B12 deficiency Other B-complex deficiencies Encounter for long-term current use of medication Iron deficiency anemia, unspecified iron deficiency anemia type documented in this encounter [facility] note* Diagnosis Esophageal reflux Persistent depressive disorder documented in this encounter [facility] note* Diagnosis Controlled type 2 diabetes mellitus without complication, without long-term current use of insulin (HCC)- Primary Medication management Encounter for long-term (current) use of other medications documented in this encounter [facility] note* Diagnosis Type 2 diabetes mellitus without complication, without long-term current use of insulin ([facility])- Primary Medication management Encounter for long-term (current) use of other medications documented in this encounter [facility] noteNo assessment information availableWOhioHealth Dublin [facility] Work Phone: Evaluation note* Diagnosis Medication management- Primary Encounter for long-term (current) use of other medications Type 2 diabetes mellitus without complication, without long-term current use of insulin (HCC) Hyperlipidemia, unspecified hyperlipidemia type documented in this encounter [facility] note* Diagnosis Esophageal reflux Persistent depressive disorder Acquired hypothyroidism Unspecified hypothyroidism documented in this encounter [facility] note* Diagnosis Acquired hypothyroidism- Primary Unspecified hypothyroidism B12 deficiency Other B-complex deficiencies Hyperlipidemia, unspecified hyperlipidemia type Iron deficiency anemia, unspecified iron deficiency anemia type Uncontrolled type 2 diabetes mellitus with hyperglycemia (HCC) documented in this encounter [facility] note* Diagnosis Acquired hypothyroidism- Primary Unspecified hypothyroidism Type 2 diabetes mellitus without complication, without long-term current use of insulin (HCC) Iron deficiency anemia, unspecified iron deficiency anemia type B12 deficiency Other B-complex deficiencies Vitamin D deficiency Unspecified vitamin D deficiency Encounter for long-term current use of medication documented in this encounter [facility] note* Diagnosis Onset Date Resolution Status Acute dehydration acute Adult failure to thrive acut e Hyperglycemia due to diabetes mellitus acute Chronic anemia [facility] Work Phone: Evaluation note* Diagnosis Onset Date Resolution Status Acute dehydration acute Adult failure to thrive acut e Hyperglycemia due to diabetes mellitus acute Chronic anemia chronic Acute UTI acute Adult failure to thrive acut e Hyperglycemia acute [facility] Work Phone: Evaluation note* Diagnosis Onset Date Resolution Status Acute dehydration acute Adult failure to thrive acut e Hyperglycemia due to diabetes mellitus acute Chronic anemia chronic Acute dehydration acute Acute UTI acute Adult failure to thrive acut e Hyperglycemia acute [facility] Work Phone: Evaluation note* Diagnosis Elevated LFTs- Primary Other abnormal blood chemistry [facility]* Diagnosis Onset Date Resolution Status Chronic anemia chronic Acute UTI acute Adult failure to thrive acut e Hyperglycemia acute [facility] Work Phone: Evaluation note* Diagnosis Encounter for therapeutic drug monitoring- Primary Acquired hypothyroidism Unspecified hypothyroidism Iron deficiency anemia, unspecified iron deficiency anemia type Type 2 diabetes mellitus without complication, without long-term current use of insulin (HCC) documented in this encounter [facility] note* Diagnosis Uncontrolled type 2 diabetes mellitus with hyperglycemia (HCC)- Primary Urinary incontinence without sensory awareness Incontinence without sensory awareness Weakness Other malaise and fatigue Elevated LFTs Other abnormal blood chemistry Anemia, unspecified type Frequent falls Personal history of fall documented in this encounter [facility] for referral (narrative)* Diagnostic Procedure Only (Routine) - Pending Review Specialty Diagnoses / Procedures Referred By Contac t Referred To Contact US IMAGING Diagnoses Elevated LFTs Procedures US ABD RIGHT UPPER QUADRANT US ABDOMINAL REAL TIME W/IMAGE LIMITED Orin Sosa APRN.CNP [address] [place] [address] [place] [address] Referral ID Status Reason Start Date Expiration Date Visits Requested Visits Authorized [id number] Pending Review Auto-Generat ed Referral 08/27/2023 09/25/2024 1 1 [facility] for referral (narrative)No reason for referral information availableWOhioHealth Dublin [facility] Work Phone: Summary Purpose Family History No Family History Records FoundNo Family History Records FoundNo Family History Records Found Advance Directives No Advanced Directives Records FoundDocuments on File Type Date Recorded 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 Advance Directive(s) Advance Directive Response Recorded Date/ Time Advance Directives No June 07, 2014 12:02pm Living Will No May 28, 2 019 12:36pm Power of Industrial Roof Plumber No May 28, 2019 12:36pm Advance Directive Response Recorded Date/ Time Advance Directives No June 07, 2014 1:02pm Living Will Yes September 21, 2022 2:29pm Power of Industrial Roof Plumber No September 21 2:29pm Advance Directive Response Recorded Date/ Time Advance Directives No June 07, 2014 12:02pm Living Will No August 09, 024 3:47pm Power of Industrial Roof Plumber No August 09, 2023 3:47pm Advance Directive Response Recorded Date/ Time Advance Directives No June 07, 2014 12:02pm Living Will No August 15, 2 024 12:18am Power of Industrial Roof Plumber No August 15, 2023 12:18am Advance Directive Response Recorded Date/ Time Name of Medical Power of Industrial Roof Plumber leola daily August 15, 2023 3:01am Advance Directives No June 07, 2014 12:02pm Living Will Yes August 15, 2 024 3:01am Power of Industrial Roof Plumber Yes August 15, 2023 3:01am Advance Directive Response Recorded Date/ Time Name of Medical Power of Industrial Roof Plumber leola daily August 15, 2023 4:01am Advance Directives No June 07, 2014 1:02pm Living Will Yes August 15, 2 024 4:01am Power of Industrial Roof Plumber Yes August 15, 2023 4:01am Advance Directive [...] the event of a Fluress shortage, administer Salcha-Fluor 1 drop into both eyes as directed [...] Until Fri01/09/22 at 2159, Administer for dilation Given 01/09/2022 10:00 AM [...] to thrive Hyperglycemia Chief Complaint Admit Date HALFWAY LAB WORK June 21 5:30am HALFWAY LAB WORK September 20, 2024 5 :00am Chief Complaint Admit Date HALFWAY LAB WORK December 14, 2024 5: 00am SEPSIS March 03, 2025 4:06pm Chief Complaint Admit Date HALFWAY LAB WORK December 14, 2024 5: 00am SEPSIS March 03, 2025 4:08pm SEPSIS March 03, 2025 4:40pm SEPSIS March 04, 2025 7:46am SEPSIS March 04, 2025 4:36pm SEPSIS March 05, 2025 1:42pm SEPSIS March 06, 2025 10:10am SEPSIS March 07, 2025 10:15am SEPSIS March 08, 2025 8:53am Reason for Visit Admit Date Acute hypoxic respiratory failure 2024 4:08pm Bacteremia due to Gram-negative bacteria March 03, 2025 4:08pm Hyperlipidemia March 03, 2025 4:08pm Sepsis March 03, 2025 4:08pm Chief Complaint Admit Date HALFWAY LAB WORK December 14, 2024 5: 00am SEPSIS March 03, 2025 4:08pm SEPSIS March 03, 2025 4:40pm SEPSIS March 04, 2025 7:46am SEPSIS March 04, 2025 4:36pm SEPSIS March 05, 2025 1:42pm SEPSIS March 06, 2025 10:10am SEPSIS March 07, 2025 10:15am SEPSIS March 08, 2025 8:53am LAB WORK March 10, 2025 5:00am Reason for Referral Specialty Diagnoses / Procedures Referred By Theresa t Referred To Contact Diagnoses Uncontrolled type 2 diabetes mellitus with hyperglycemia (HCC) Peter Ellis MD [address] [place] [address] Referral ID Status Reason Start Date Expiration Date Visits Re quested Visits Authorized [id number] Closed 1 1 Referral ID Status Reason Start Date Expiration Date V isits Requested Visits Authorized [id number] Authorized 11/12/2023 06/29/2024 1 1 Additional Source Comments INFORMATION SOURCE (unrecogn ized section and content) DATE CREATED AUTHOR 04/04/2019 [facility] DATE CREATED AUTHOR AUTHOR'S ORGANIZ ATION 12/06/2023 [facility] DATE CREATED AUTHOR AUTHOR'S ORGANIZ ATION 04/20/2025 [facility] Source Comments (unrecognize d section and content) In the event this informatio n is protected by the Federal Confidentiality of Alcohol and Drug Abuse Patient Records regulations: The Federal rules restrict any use of the information to criminally investigate or prosecute any alcohol or drug abuse patient.[facility] the event this information is protected by the Federal Confidentiality of Alcohol and Drug Abuse Patient Records regulations: The Federal rules restrict any use of the information to criminally investigate or prosecute any alcohol or drug abuse patient.[facility] the event this information is protected by the Federal Confidentiality of Alcohol and Drug Abuse Patient Records regulations: The Federal rules restrict any use of the information to criminally investigate or prosecute any alcohol or drug abuse patient.[facility] the event this information is protected by the Federal Confidentiality of Alcohol and Drug Abuse Patient Records regulations: The Federal rules restrict any use of the information to criminally investigate or prosecute any alcohol or drug abuse patient.[facility] HospitalIn the event this information is [...] or prosecute any alcohol or drug abuse patient.[facility] Hospital[facility] the event this information is protected by the Federal Confidentiality of Alcohol and Drug Abuse Patient Records regulations: The Federal rules restrict any use of the information to criminally investigate or prosecute any alcohol or drug abuse patient.[facility] the event this information is protected by the Federal Confidentiality of Alcohol and Drug Abuse Patient Records regulations: The Federal rules restrict any use of the information to criminally investigate or prosecute any alcohol or drug abuse patient.[facility] HospitalIn the event this information is protected by the Federal Confidentiality of Alcohol and Drug Abuse Patient Records regulations: The Federal rules restrict any use of the information to criminally investigate or prosecute any alcohol or drug abuse patient.[facility] Hospital[facility] the event this information is protected by the Federal Confidentiality of Alcohol and Drug Abuse Patient Records regulations: The Federal rules restrict any use of the information to criminally investigate or prosecute any alcohol or drug abuse patient.[facility] the event this information is protected by the Federal Confidentiality of Alcohol and Drug Abuse Patient Records regulations: The Federal rules restrict any use of the information to criminally investigate or prosecute any alcohol or drug abuse patient.[facility] HospitalIn the event this information is protected by the Federal Confidentiality of Alcohol and Drug Abuse Patient Records regulations: The Federal rules restrict any use of the information to criminally investigate or prosecute any alcohol or drug abuse patient.[facility] the event this information is protected by the Federal Confidentiality of Alcohol and Drug Abuse Patient Records regulations: The Federal rules restrict any use of the information to criminally investigate or prosecute any alcohol or drug abuse patient.[facility] the event this information is protected by the Federal Confidentiality of Alcohol and Drug Abuse Patient Records regulations: The Federal rules restrict any use of the information to criminally investigate or prosecute any alcohol or drug abuse patient.[facility] HospitalIn the event this information is protected by the Federal Confidentiality of Alcohol and Drug Abuse Patient Records regulations: The Federal rules restrict any use of the information to criminally investigate or prosecute any alcohol or drug abuse patient.[facility] HospitalIn the event this information is protected by the Federal Confidentiality of Alcohol and Drug Abuse Patient Records regulations: The Federal rules restrict any use of the information to criminally investigate or prosecute any alcohol or drug abuse patient.[facility] HospitalIn the event this information is protected by the Federal Confidentiality of Alcohol and Drug Abuse Patient Records regulations: The Federal rules restrict any use of the information to criminally investigate or prosecute any alcohol or drug abuse patient.[facility] HospitalIn the event this information is protected by the Federal Confidentiality of Alcohol and Drug Abuse Patient Records regulations: The Federal rules restrict any use of the information to criminally investigate or prosecute any alcohol or drug abuse patient.[facility] HospitalIn the event this information is protected by the Federal Confidentiality of Alcohol and Drug Abuse Patient Records regulations: The Federal rules restrict any use of the information to criminally investigate or prosecute any alcohol or drug abuse patient.[facility] HospitalIn the event this information is protected by the Federal Confidentiality of Alcohol and Drug Abuse Patient Records regulations: The Federal rules restrict any use of the information to criminally investigate or prosecute any alcohol or drug abuse patient.[facility] HospitalIn the event this information is protected by the Federal Confidentiality of Alcohol and Drug Abuse Patient Records regulations: The Federal rules restrict any use of the information to criminally investigate or prosecute any alcohol or drug abuse patient.[facility] HospitalIn the event this information is protected by the Federal Confidentiality of Alcohol and Drug Abuse Patient Records regulations: The Federal rules restrict any use of the information to criminally investigate or prosecute any alcohol or drug abuse patient.[facility] HospitalIn the event this information is protected by the Federal Confidentiality of Alcohol and Drug Abuse Patient Records regulations: The Federal rules restrict any use of the information to criminally investigate or prosecute any alcohol or drug abuse patient.[facility] HospitalIn the event this information is protected by the Federal Confidentiality of Alcohol and Drug Abuse Patient Records regulations: The Federal rules restrict any use of the information to criminally investigate or prosecute any alcohol or drug abuse patient.[facility] HospitalIn the event this information is protected by the Federal Confidentiality of Alcohol and Drug Abuse Patient Records regulations: The Federal rules restrict any use of the information to criminally investigate or prosecute any alcohol or drug abuse patient.[facility] HospitalIn the event this information is protected by the Federal Confidentiality of Alcohol and Drug Abuse Patient Records regulations: The Federal rules restrict any use of the information to criminally investigate or prosecute any alcohol or drug abuse patient.[facility] HospitalIn the event this information is protected by the Federal Confidentiality of Alcohol and Drug Abuse Patient Records regulations: The Federal rules restrict any use of the information to criminally investigate or prosecute any alcohol or drug abuse patient.[facility] Reason for Visit (unrecogniz ed [...] Comments Transition Of Care 08/13/2023 Reason Comments [facility], verbal order Reason Comments Results Reason Comments Labs needed Reason Comments F/U 4 month Reason Comments Insurance Authorization pilar Reason Comments Medication Problem Care Teams (unrecognized sec tion and content) Creative Engagement Director Relationship Specialty Start Date End Date Peter Ellis MD [address] [place] [address] PCP - General 03/24/07 [facility] [address] [place] [address] Pharmacist Pharmacy 02/26/19 Creative Engagement Director Relationship Specialty Start Date End Date Peter Ellis MD [address] [place] [address] PCP - General 03/24/07 [facility] [address] [place] [address] Pharmacist Pharmacy 02/26/19 Creative Engagement Director Relationship Specialty Start Date End Date Peter Ellis MD [address] [place] [address] PCP - General 03/24/07 [facility] [address] [place] [address] Pharmacist Pharmacy 02/26/19 Creative Engagement Director Relationship Specialty Start Date End Date Peter Ellsi MD [address] [place] [address] PCP - General 03/24/07 [facility] [address] [place] [address] Pharmacist Pharmacy 02/26/19 Creative Engagement Director Relationship Specialty Start Date End Date Peter Ellis MD [address] [place] [address] PCP - General 03/24/07 Creative Engagement Director Relationship Specialty Start Date End Date Peter Ellis MD [address] [place] [address] PCP - General 03/24/07 Creative Engagement Director Relationship Specialty Start Date End Date Peter Ellis MD [address] [place] [address] PCP - General 03/24/07 [place] [address] [place] [address] Pharmacist Pharmacy 06/20/22 Creative Engagement Director Relationship Specialty Start Date End Date Peter Ellis MD [address] [place] [address] PCP - General 03/24/07 Danny, [place] [address] [place] [address] Pharmacist Pharmacy 06/20/22 Creative Engagement Director Relationship Specialty Start Date End Date Peter Ellis MD [address] [place] [address] PCP - General 03/24/07 [place] [address] [place] [address] Pharmacist Pharmacy 06/20/22 Creative Engagement Director Relationship Specialty Start Date End Date Peter Ellis MD [address] [place] [address] PCP - General 03/24/07 [place] [address] [place] [address] Pharmacist Pharmacy 06/20/22 Team Status: Active Member Role Status Dates Dr. Peter Ellis MD Family Provider Active Dr. Peter Ellis MD Primary Care Provider Active Team Status: Inactive Member Role Status Dates Dr. Peter Ellis MD Primary Care Provider Active Ed Physician Provider Emergency Provider Active Creative Engagement Director Relationship Specialty Start Date End Date Peter Ellis MD [address] [place] [address] PCP - General 03/24/07 Danny [place] [address] [place] [address] Pharmacist Pharmacy 06/20/22 Team Status: Inactive Member Role Status Dates Dr. Peter Ellis MD Primary Care Provider Active Ed Physician Provider Attending Provider, Emergency Pr ovider Active Team Status: Inactive Member Role Status Dates Dr. Peter Ellis MD Primary Care Provider Active Dr. Otis Brandon MD Emergency Provider Active Creative Engagement Director Relationship Specialty Start Date End Date Peter Ellis MD [address] [place] [address] PCP - General 03/24/07 [place] [address] [place] [address] Pharmacist Pharmacy 06/20/22 Creative Engagement Director Relationship Specialty Start Date End Date Peter Ellis MD [address] [place] [address] PCP - General 03/24/07 [place] [address] [place] [address] Pharmacist Pharmacy 06/20/22 Creative Engagement Director Relationship Specialty Start Date End Date Peter Ellis MD [address] [place] [address] PCP - General 03/24/07 [facility] [address] [place] [address] Pharmacist Pharmacy 06/20/22 Creative Engagement Director Relationship Specialty Start Date End Date Peter Ellis MD [address] [place] [address] PCP - General 03/24/07 Jadon Delgado, [facility] [address] [place] [address] Pharmacist Pharmacy 06/20/22 Creative Engagement Director Relationship Specialty Start Date End Date Peter Ellis MD [address] [place] [address] PCP - General 03/24/07 [facility] [address] [place] [address] Pharmacist Pharmacy 06/20/22 Team Status: Active Member [...] A ctive Dr. Wes Alva DO Attending Provider Active Creative Engagement Director Relationship Specialty Start Date End Date Peter Ellis MD [address] [place] [address] PCP - General 03/24/07 [place] [address] [place] [phone] Pharmacist Pharmacy 06/20/22 Team Status: Active Member [...] Dr. Carl Couch DO Attending Provider Active Creative Engagement Director Relationship Specialty Start Date End Date Peter Ellis MD [address] [place] [address] PCP - General 03/24/07 [place] [address] [place] [phone] Pharmacist Pharmacy 06/20/22 Team Status: Inactive Member Role Status Dates Dr. Peter Ellis MD Primary Care Provider Active Orin Sosa PLASTER MOLD MAKER, PLASTER MOLD MAKER-C Attending Provider, Referring Pr ovider Active Creative Engagement Director Relationship Specialty Start Date End Date Peter Ellis MD [address] [place], [place] [id number] PCP - General 03/24/07 [place] [address] [place] [address] Pharmacist Pharmacy 06/20/22 Creative Engagement Director Relationship Specialty Start Date End Date Peter Ellis MD [address] [place] [address] PCP - General 03/24/07 [place] [address] [place] [address] Pharmacist Pharmacy 06/20/22 Creative Engagement Director Relationship Specialty Start Date End Date Peter Ellis MD [address] [place] [address] PCP - General 03/24/07 [place], [place] [address] [place] [address] Pharmacist Pharmacy 06/20/22 Creative Engagement Director Relationship Specialty Start Date End Date Peter Ellis MD [address] [place] [address] PCP - General 03/24/07 Danny, [place] [address] [place] [address] Pharmacist Pharmacy 06/20/22 Creative Engagement Director Relationship Specialty Start Date End Date Peter Ellis MD [address] [place] [address] PCP - General 03/24/07 [place] [address] [place] [address] Pharmacist Pharmacy 06/20/22 Team Status: Active Member [...] End: March 08, 2025 Amira Mai NP, PLASTER MOLD MAKER-C Other Provider Active Start: March 03, 2025 [...] Sta rt: March 04, 2025 Amira Mai PLASTER MOLD MAKER, PLASTER MOLD MAKER-C Other Provider Active Start: March 04, 2025 [...] Sta rt: March 04, 2025 Amira Mai PLASTER MOLD MAKER, PLASTER MOLD MAKER-C Other Provider Active Start: March 04, 2025 [...] Star t: March 05, 2025 Dr. Esa Pnoce MD Other Provider Active Start: March 05, [...] rt: March 05, 2025 Amira Mai NP, PLASTER MOLD MAKER-C Other Provider Active Start: March 05, 2025 [...] rt: March 06, 2025 Amira Mai NP, PLASTER MOLD MAKER-C Other Provider Active Start: March 06, 2025 [...] t: March 07, 2025 Dr. Mario Dunaway , Other Provider Active Start : March 07, [...] Active Star t: March 07, 2025 Dr. Omra Castillo DO Other Provider Active St art: [...] Sta rt: March 07, 2025 Amira Mai NP, PLASTER MOLD MAKER-C Other Provider Active Start: March 07, 2025 Debra Bunn NP-C Other Provider Active St art: March 07, [...] Start : March 08, 2025 Dr. Mitzy Mohaumd MD Other Provider Active Sta rt: March [...] rt: March 08, 2025 Amira Mai NP, PLASTER MOLD MAKER-C Other Provider Active Start: March 08, 2025 Debra Bunn PLASTER MOLD MAKER-C Other Provider Active St art: March 08, [...] End: March 08, 2025 Amira Mai NP, PLASTER MOLD MAKER-C Nurse Practitioner Active Start: March 03, 2025 End: March 08, 2025 Debra Bunn PLASTER MOLD MAKER-C Nurse Practitioner Active Start: March 03, 2025 [...] 03, 2025 Dr. [facility] Active Start: March 03, 2025 [...] Start: March 04, 2025 Dr. Warren Stockton Nurse Practitioner Active Start: March 04, 2025 Dr. Moses Damon MD Nurse Practitioner Active Start: March 04, 2025 Dr. Gabino Malik MD Nurse Practitioner Active Start: March 04, 2025 Dr. Donell Rendon MD Nurse Practitioner Active Start: February Dr. Terry Flores MD Nurse Practitioner Active Start: March 04, 2025 Amira Mai PLASTER MOLD MAKER, PLASTER MOLD MAKER-C Nurse Practitioner Active Start: March 04, 2025 Debra Bunn NP-C Nurse Practitioner Active Start: March 04, 2025 Dr. Linda Marte MD Nurse Practitioner Active Start: March 04, 2025 Team Status: Active Member Role/Relationship Status Dates Dr. Peter Ellis MD Primary care physician Active Start: March 04, 2025 Dr. Fried[facility] Active Start: March 04, 2025 [...] Start: March 04, 2025 Dr. Omar Castillo , Nurse Practitioner Active Start: March 04, 2025 [...] Start: March 04, 2025 Amira Mai NP, PLASTER MOLD MAKER-C Nurse Practitioner Active Start: March 04, 2025 Debra Bunn NP-C Nurse Practitioner Active Start: March 04, 2025 Dr. Linda Marte MD Attending physician Active Start: March 04, 2025 Dr. Linda Marte MD Nurse Practitioner Active Start: March 04, 2025 Team Status: Active Member Role/Relationship Status Dates Dr. Peter Ellis MD Primary care physician Active Start: March 05, 2025 Dr. Frieda Laurent MD Emergency Departmen t Physician Active Start: March 05, 2025 [...] Active Start: March 05, 2025 Amira Mai PLASTER MOLD MAKER, PLASTER MOLD MAKER-C Nurse Practitioner Active Start: March 05, 2025 Debra Bunn PLASTER MOLD MAKER-C Nurse Practitioner Active Start: March 05, 2025 [...] Start: March 06, 2025 Dr. Mario Dunaway DO Nurse Practitioner Active S tart: March 06, [...] Start: March 06, 2025 Dr. Omar Castillo , Nurse Practitioner Active Start: March 06, 2025 Dr. Anabel Cummins MD Nurse Practitioner Active St art: March 06, 2025 Dr. Ingrid Fonseca MD Nurse Practitioner Active Start: March 06, 2025 Dr. Warren Stockton DO Nurse Practitioner Active Start: March 06, 2025 Dr. Moses Damon MD Nurse Practitioner Active Start: March 06, 2025 Dr. Gabino Malik MD Nurse Practitioner Active Start: March 06, 2025 Dr. Donell Rendon MD Nurse Practitioner Active Start: February Dr. Terry Flores MD Nurse Practitioner Active Start: March 06, 2025 Amira Mai NP, PLASTER MOLD MAKER-C Nurse Practitioner Active Start: March 06, 2025 [...] Start: March 07, 2025 Dr. Omar Castillo DO Nurse Practitioner Active Start: March 07, [...] Start: March 07, 2025 Amira Mai NP, PLASTER MOLD MAKER-C Nurse Practitioner Active Start: March 07, 2025 [...] Start: March 08, 2025 Dr. Warren Stockton , Nurse Practitioner Active Start: March 08, 2025 Dr. Moses Damon MD Nurse Practitioner Active Start: March 08, 2025 Dr. Gabino Malik MD Nurse Practitioner Active Start: March 08, 2025 Dr. Donell Rendon MD Nurse Practitioner Active Start: February Dr. Terry Flores MD Nurse Practitioner Active Start: March 08, 2025 Amira Mai PLASTER MOLD MAKER, PLASTER MOLD MAKER-C Nurse Practitioner Active Start: March 08, 2025 Debra Bunn PLASTER MOLD MAKER-C Nurse Practitioner Active Start: March 08, 2025 [...] BE BASED ON THE PRIMARY CLINICAL RECORDS. [employer] provides no warranty or guarantee of the accuracy or completeness of information in this document.
[2025-06-05 01:42] LABS: Mucous, Urine 0 SEEN /hpf (<or=2+); Squamous Epithelial Cells - UA 0 SEEN /hpf (5-10)
[2025-06-05 01:43] LABS: Hematocrit 33.2 % (37-47); Hemoglobin 10.2 g/dL (12.0-15.0); Immature Granulocytes Count 0.030 X10^3/uL (0.0-0.0); Mean Corp Hgb Conc 30.7 g/dL (32-36); Mean Corpuscular Volume 96.0 fL (81-99); Mean Platelet Vol. 11.3 fl (6.2-12.0); NRBC Flagged by Analyzer 0 % (0-5); Platelet Count 151 K/mm3 (150-450); RBC Distribution Width CV 14.4 % (11.6-14.6); RBC Distribution Width SD 50.7 fl (35.1-43.9); Red Blood Count 3.46 M/mm3 (4.2-5.4); White Blood Count 4.3 K/mm3 (4.4-11.0)
[2025-06-05 01:44] LABS: Color, Urine Amber (Yellow); Glucose, Dipstick Normal (Normal); Ketone-Dipstick Negative (Negative); Leukocyte Esterase-Dipstick 500 /ul (Negative); Nitrite-Dipstick Negative (Negative); Occult Blood-Urine 250 /ul (Negative); Protein-Dipstick 100 mg/dl (Negative); Specific Gravity, Urine 1.015 (1.002-1.030); Urine Bilirubin Dipstick Negative (Negative)
[2025-06-05 01:52] LABS: Red Blood Cells-Urine 0-5 SEEN /hpf (0-5)
[2025-06-05 02:42] VITALS: BP 105/91; PULSE 68; RESP 18; O2SAT 97
[2025-06-05 04:00] VITALS: BP 106/63; PULSE 70; RESP 18; TEMP 36.6; O2SAT 97
--- NOTE | 2025-06-05 04:05 | ED.VIS.FEGU ---
HPI HPI - Female History of Present Illness Chief Complaint: Vag Bleeding Narrative Narrative: Patient was seen and examined after presenting to ED for reported concern about possible vaginal bleeding she is coming from a long-term her briefs had some redness and it infected actually her urine patient is baseline confused with history of dementia. [facility] Medical History History of ESBL E. coli infection Chronic depression Uncontrolled type 2 diabetes mellitus with hyperglycemia Chronic anemia Diabetes Kidney stones Adult failure to thrive Hyperglycemia due to diabetes mellitus Acute dehydration Head injury Home Medications ?Medication ?Instructions ?Recorded ?Last Taken ?Type levothyroxine 50 mcg tablet 50 mcg PO .TUTHUSASU thyroid 06/07/14 03/03/25 History atorvastatin 40 mg tablet 40 mg PO QHS CHOLESTEROL 05/28/19 03/02/25 History escitalopram oxalate 10 mg tablet 10 mg PO DAILY DEPRESS 05/28/19 03/03/25 History levothyroxine 25 mcg tablet 75 mcg PO .MWF thyroid 08/09/23 03/02/25 History acetaminophen 325 mg tablet 650 mg (2 x 325 mg) PO Q6H PRN PRN 12/06/23 03/03/25 Rx Pain 1-10 Or Fever>100.7 #0 tabs melatonin 3 mg tablet 3 mg PO QHS PRN PRN Insomnia #0 12/06/23 03/02/25 Rx tabs menthol 0.44 %-zinc oxide 20.6 % 1 applic topical BID redness 12/06/23 12/06/23 History topical ointment (Calmoseptine) acetaminophen 650 mg rectal 650 mg NE Q4H PRN fever or pain 03/03/25 Unknown History suppository bisacodyl 10 mg rectal suppository 10 mg NE DAILY PRN constipation 03/03/25 Unknown History cholecalciferol (vitamin D3) 1,250 1,250 mcg PO .Qmonday supplement 03/03/25 02/28/25 History mcg (50,000 unit) capsule ferrous sulfate 325 mg (65 mg 325 mg PO BID iron supplement 03/03/25 03/03/25 History iron) tablet (FeroSul) guaifenesin 100 mg/5 mL oral 200 mg PO Q4H PRN congestion, cough 03/03/25 Unknown History liquid (Adult Tussin Chest Congestion) magnesium hydroxide 400 mg/5 mL 30 ml PO DAILY PRN constipation 03/03/25 Unknown History oral suspension (Milk of Magnesia) oxybutynin chloride 10 mg 10 mg PO .HS bladder spasms 03/03/25 03/02/25 History tablet,extended release 24 hr pantoprazole 20 mg tablet,delayed 20 mg PO DAILY GERD 03/03/25 03/03/25 History release sennosides 8.6 mg-docusate sodium 1 tab PO DAILY constipation 03/03/25 03/03/25 History 50 mg tablet (Stool Softener-Stimulant Laxative) ertapenem 1 gram solution for 1 g IM DAILY 3 days #5 ea 03/08/25 Unknown Rx injection insulin glargine 100 unit/mL (3 20 unit (0.2 mL) subcut .am 03/08/25 03/03/25 Rx mL) subcutaneous pen (Lantus diabetes #1 mL Solostar U-100 Insulin) insulin lispro 100 unit/mL See Protocol subcut ACHS #0 mL 03/08/25 Unknown Rx subcutaneous pen (Humalog KwikPen (U-100) Insulin) linezolid 600 mg tablet 600 mg PO BID 3 days #6 tabs 03/08/25 Unknown Rx cephalexin 500 mg capsule 500 mg PO 4X/DAY #28 CAPSULES 06/05/25 Unknown Rx Allergy/AdvReac Type Severity Reaction Status Date / Time venlafaxine HCl (From Allergy Rash Verified 06/05/25 00:43 Effexor) meclizine AdvReac Other Verified 06/05/25 00:43 Surgical History History of cholecystectomy History of knee joint replacement H/O: section Social History household members: none Smoking Status: Never smoker alcohol intake: never substance use type: does not use ROS ROS ED ROS Narrative Pertinent Positives: There is nothing wrong with me they say my vagina is bleeding though Pertinent Negatives: Fevers chills vomiting black or bloody stools The remainder of review of systems negative unless otherwise stated in the HPI above. Systems reviewed including constitutional, psychiatric, cardiovascular, respiratory, integument, HENT, gastrointestinal. EXAM Physical Exam Narrative Exam Narrative: Patient is afebrile hemodynamically stable does not appear toxic or in distress normocephalic atraumatic her abdomen is soft nontender nondistended her brief head send that red urine appearance and her urine was bloody. Const Vital Signs: 06/05/25 00:42 06/05/25 00:45 Temperature 98.6 F Temperature Source Oral Pulse Rate 69 Respiratory Rate 18 Blood Pressure 114/61 Blood Pressure Mean 78 Pulse Ox 96 MDM MDM MDM Narrative Medical decision making narrative: Nursing notes, triage notes, available previous documentation, and vital signs were reviewed. Any discrepancies noted were addressed. Differential Diagnoses: UTI lower suspicion for malignancy or something causing vaginal bleeding Interventions: Antibiotics Given: Keflex Labs Reviewed: Urine appears grossly infected her hemoglobin is 10.2 slight leukopenia 4.3 Previous Documentation Reviewed: None available or applicable at this time. ED Course: Patient presenting with hematuria she has a UTI patient is hemodynamically stable does not complain of any other symptoms I believe she can go back to her facility with a prescription for Keflex return precautions follow-up recommendations provided she is stable for discharge. This note was made utilizing voice recognition software. All attempts were made to correct spelling or other errors prior to note completion. However, due to the fast-paced nature of emergency medicine, some errors may still be present. Lab Data Labs: Laboratory Results - last 24 hr 06/05/25 06/05/25 01:37 01:38 WBC 4.3 L RBC 3.46 L Hgb 10.2 L Hct 33.2 L MCV 96.0 MCH 29.5 MCHC 30.7 L RDW Std Deviation 50.7 H RDW Coeff of Nicholas 14.4 Plt Count 151 MPV 11.3 Immature Gran % (Auto) 0.700 Neut % (Auto) 53.7 Lymph % (Auto) 29.5 [place] % (Auto) 11.2 H Eos % (Auto) 4.2 Baso % (Auto) 0.7 Absolute Neuts (auto) 2.3 Absolute Lymphs (auto) 1.27 Nucleated RBC % 0 Urine Color Lisa Urine Clarity Cloudy Urine pH 6.0 Ur Specific [place] 1.015 Urine Protein 100 H Urine Glucose (UA) Normal Urine Ketones Negative Urine Occult Blood 250 H Urine Nitrite Negative Urine Bilirubin Negative Urine Urobilinogen Normal Ur Leukocyte Esterase 500 H Urine RBC 0-5 SEEN Urine WBC 50-100 SEEN Ur Squamous Epith Cells 0 SEEN Urine Bacteria 4+ Urine Mucus 0 SEEN Discharge Plan Triage Chief Complaint: Vag Bleeding ED Provider: Meryl Dozier Dx/Rx/DC Orders Clinical Impression: Acute cystitis, Hematuria, History of dementia Instructions: ED Cystitis Female Adult Prescriptions: New cephalexin 500 mg capsule 500 mg PO 4X/DAY Qty: 28 0RF No Action levothyroxine 50 MCG tablet 50 mcg PO .LEOPOLDO Patient Comments: THYROID MEDICATION atorvastatin 40 MG tablet 40 mg PO QHS escitalopram oxalate 10 MG tablet 10 mg PO DAILY levothyroxine 25 mcg tablet 75 mcg PO .MWF acetaminophen 325 mg Tablet 650 mg PO Q6H PRN PRN (Reason: Pain 1-10 Or Fever>100.7) Qty: 0 0RF melatonin 3 mg Tablet 3 mg PO QHS PRN PRN (Reason: Insomnia) Qty: 0 0RF menthol-zinc oxide [Calmoseptine] 0.44-20.6 % Ointment 1 applic topical BID Protocol: *Topical Application Instructions APPLICATION INSTRUCTIONS: apply to buttock Rx Instructions: Apply to bilat buttocks ferrous sulfate [FeroSul] 325 mg (65 mg iron) tablet 325 mg PO BID oxybutynin chloride 10 mg tablet extended release 24hr 10 mg PO .HS sennosides-docusate sodium [Stool Softener-Stimulant Laxat] 8.6-50 mg Tablet 1 tab PO DAILY pantoprazole 20 mg Tablet,Delayed Release (Dr/Ec) 20 mg PO DAILY cholecalciferol (vitamin D3) 1,250 mcg (50,000 unit) capsule 1,250 mcg PO .Qmonday Rx Instructions: Give one capsule in the morning every Friday for low vitamin D3 level for 168 days acetaminophen 650 mg suppository 650 mg NE Q4H PRN (Reason: fever or pain) bisacodyl 10 mg suppository 10 mg NE DAILY PRN (Reason: constipation) magnesium hydroxide [Milk of Magnesia] 400 mg/5 mL suspension 30 ml PO DAILY PRN (Reason: constipation) guaifenesin [Adult Tussin Chest Congestion] 100 mg/5 mL liquid 200 mg PO Q4H PRN (Reason: congestion, cough) linezolid 600 mg tablet 600 mg PO BID 3 Days Qty: 6 0RF ertapenem 1 gram recon soln 1 g IM DAILY 3 Days Qty: 5 0RF Rx Instructions: Reconstitute with lidocaine. 1gm IM daily for 5 days. Dx: ESBL ecoli bacteremia. insulin lispro [Humalog KwikPen Insulin] 100 unit/mL Insulin Pen See Protocol subcut ACHS Qty: 0 0RF Protocol: 3. Sliding Scale Insulin Med Dosing Condition: 150-189 mg/dl = 1 unit Condition: 190-229 mg/dl = 2 units Condition: 230-269 mg/dl = 3 units Condition: 270-309 mg/dl = 4 units Condition: 310-349 mg/dl = 5 units Condition: 350-399 mg/dl = 6 units Condition: 400-449 mg/dl = 7 units Condition: Greater than 449 call physician Protocol Text: Suggested for: - Patients on Total Daily Insulin Dose of 37-55 units - Obese, infected, or steroid patients MEDIUM DOSING ALGORITHIM insulin glargine [Lantus Solostar U-100 Insulin] 100 unit/mL (3 mL) insulin pen 20 unit subcut .am Qty: 1 0RF Primary Care Provider: Pavithra Presley Referrals: Pavithra Presley MD [Primary Care Provider, Internal Medicine] Activity Restrictions/Additional Instructions: You have a UTI take the antibiotics to completion follow-up with your doctor you can always come back if getting worse Print Language: Bulgarian Disposition Disposition: Home, Self Care
[2025-06-05 04:43] VITALS: BP 105/44; PULSE 70; RESP 16; TEMP 36.6; O2SAT 97
--- NOTE | 2025-06-05 04:56 | NURSING ---
Report given to anatoliy. Pt off unit.
== END 2025-06-05 04:56 | disposition home or self-care (01) ==
PROVIDERS: Emergency Provider Specialist/Technologist Athletic Trainer; PCP Internal Medicine; Visit Provider Specialist/Technologist Athletic Trainer
DX: N30.00 Acute cystitis without hematuria (principal); E11.9 Type 2 diabetes mellitus without complications; R31.9 Hematuria, unspecified
CPT/HCPCS: 81001; 85025; 99285